=== PATIENT | male | born 1960 | race Caucasian/White ===

== ENCOUNTER → 2017-07-01 06:25 | Outpatient (CLI) | payer OTHER, SELFPAY ==
--- NOTE | 2017-07-01 09:07 | STRESSREP ---
Stress Test Report Exercise myocardial perfusion stress test. 57-year-old male with a history of chest pain. Stress protocol: Resting EKG demonstrates sinus bradycardia with a rate of 54 bpm. Resting blood pressure is 130/90 mmHg. The patient exercised according to the regular Avelino protocol for a total duration of 7 minutes and 20 seconds completing 1 minute and 20 seconds into stage III of the Avelino protocol. The maximum heart rate attained was 171 bpm which was 104% maximum predicted heart rate the maximum workload attained was 9 metabolic equivalents. At rest there were no ST or T-wave changes were noted to suggest ischemia at peak exercise upsloping ST changes only were noted. The resting blood pressure was 130/90 mmHg and the peak blood pressure was 178/98 mmHg rate pressure product was 27,000. The test was terminated due to leg fatigue no chest pain no arrhythmias were noted. Myocardial perfusion protocol. 11.1 mCi of technetium 99m sestamibi was injected at rest. The patient exercised according to regular Avelino protocol for 7 minutes and 20 seconds attaining 9 metastases of [place]ick equivalents at peak exercise 33.3 mCi of technetium 99m sestamibi was injected stress images were obtained stress and rest images were reconstructed and compared in the short axis vertical long and horizontal long axis. Gated images were also obtained pre- Perfusion SPECT analysis: The review of the stress images demonstrate normal uptake of tracer noted in all areas of the myocardium. The resting images similarly demonstrate normal uptake of tracer noted in all areas of the myocardium no reversibility is noted suggest ischemia no previous infarct is noted. Gated SPECT analysis: The gated ejection fraction is 70%. Conclusion: Normal excise myocardial perfusion stress test at a high workload. No clinical angina noted. Good functional capacity. Preserved ejection fraction.
== END ==
PROVIDERS: Family Provider Family Medicine; PCP Family Medicine; Visit Provider Internal Medicine Cardiovascular Disease
DX: I25.10 Atherosclerotic heart disease of native coronary artery without angina pectoris (principal); I10 Essential (primary) hypertension; E78.4 Other hyperlipidemia; R00.2 Palpitations; R07.9 Chest pain, unspecified
CPT/HCPCS: 78452; 93017; A9500; A4216

== ENCOUNTER → 2019-12-12 18:03 | Outpatient (CLI) | payer MEDICARE, SELFPAY | PROVIDERS: PCP Family Medicine; Referring Provider Family Medicine; Visit Provider Family Medicine | DX: R05 Cough (principal); R19.7 Diarrhea, unspecified | CPT/HCPCS: 87635; C9803; U0003 ==

== ENCOUNTER 2021-05-02 11:42 | Emergency (ER) | payer MEDICARE, SELFPAY ==
[2021-05-02 11:43] VITALS: BP 131/102; PULSE 65; RESP 16; TEMP 36.6; O2SAT 97; BMI 36.6
--- NOTE | 2021-05-02 11:53 | EKG12_ITS ---
Test Reason : CHEST PAIN Blood Pressure : / mmHG Vent. Rate : 055 BPM Atrial Rate : 055 BPM P-R Int : 144 ms QRS Dur : 090 ms QT Int : 446 ms P-R-T Axes : 003 014 012 degrees QTc Int : 426 ms Sinus bradycardia Otherwise normal ECG No previous ECGs available Confirmed by WERNER LYNCH, JARRED ([id number]), technical writer and editor MARIAJOSE ROACH ([id number]) on 05/07/2021 10:44:43 AM Referred By: EZRA Confirmed By:JARRED CALDERA MD
--- NOTE | 2021-05-02 11:55 | EDS_ITS ---
HPI History of Present Illness Chief Complaint: Chest Pain Narrative Narrative: Patient with past medical history of hypertension, BMI greater than 35, presents with chest pain. He relates history that at 930 to 10:00 this morning, almost an hour and a half ago if not longer, that he had chest pain on the left side of his chest. It did not radiate. However, he felt clammy and sweaty. He denies any nausea or vomiting. He may have been slightly short of breath. There was no exertional component to his chest discomfort. However, he relates history that he had this episode 3 days ago when his was not home that lasted 20 minutes. It was across his chest and up to the right side of his jaw. He denies any family history of early coronary artery disease. He is also concerned because he had this episode a month or 2 ago, and once again was not evaluated. He denies any swelling of his legs, no other symptoms. PFSH PFSH Allergy/AdvReac Type Severity Reaction Status Date / Time No Known Allergies Allergy Verified 05/02/21 11:45 Social History Smoking Status: Never smoker ROS ROS ED ROS Narrative Constitutional: No fever, no chills. HEENT: No sore throat. No neck pain. No loss of vision. No rhinorrhea. Cardiovascular: Positive chest pain. No palpitations. No pedal edema. Respiratory: No cough, mild shortness of breath. Abdominal: No abdominal pain. No nausea. No vomiting. Genitourinary: No dysuria. No hematuria. Musculoskeletal: No myalgias. No arthralgias. Neurologic: No headaches. No dizziness. No lightheadedness. Skin: No rash. No change in color. Psychiatric: No depression. No anxiety. EXAM Physical Exam Narrative Exam Narrative: Afebrile. Vital signs noted. HEENT: Normocephalic. Atraumatic. PERRL, EOMI. Neck soft and supple. No point tenderness or step off. Cardiovascular: Regular rate and rhythm. No murmurs, rubs, or gallops appreciated. Pulses equal bilaterally Respiratory: No tachypnea. Lungs clear to auscultation bilaterally. Gastrointestinal: Abdomen soft, nontender, with normoactive bowel sounds. No rebound or guarding. Neurological: Awake. Alert. Nonfocal, nonlateralizing. Skin: No rash. Normal color. No pallor. Musculoskeletal: No pedal edema. Full range of motion extremities. Const Vital Signs: 05/02/21 11:43 05/02/21 11:56 05/02/21 13:15 Temperature 97.8 F Temperature Source Temporal Pulse Rate 65 52 L Respiratory Rate 16 16 Blood Pressure 131/102 H 127/89 H Blood Pressure Mean 111 101 Pulse Ox 97 92 Oxygen Delivery Method Room Air Room Air Room Air Heart Score History: Moderately Suspicious ECG: Normal Age: >45 - <65 years Risk Factors: 1 or 2 Risk Factors Troponin: </= Normal Limit Score: 3 MDM MDM MDM Narrative Medical decision making narrative: Chest pain work-up was pursued. His EKG demonstrates sinus bradycardia at 55 bpm without ectopy or acute ST changes. I do feel that he is lower risk on his heart score, and that he could be ruled out by biomarkers. Chest x-ray interpreted by myself reveals no evidence of pneumothorax or infiltrate, no acute process. His CBC shows normal white count of 7.1 with a normal hemoglobin of 15.4 and normal platelet count of 193. Electrolyte panel shows chloride elevated at 108 with a normal creatinine of 1.0. High-sensitivity troponin normal at 5. Delta troponin also normal at 5 for delta troponin of 0. Chest x-ray is read by myself shows no evidence of pneumothorax or infiltrate, no acute process. At this point in time, I feel he can be discharged safely home with follow-up. I did review his chart and he had a stress test back in [address] Pabon. I do feel he has been ruled out by cami delarosa. Regardless, he was told to return with any increasing pain, new or worsening symptoms. Disposition is discharged home in stable condition. Lab Data Labs: Laboratory Results - last 24 hr 05/02/21 05/02/21 05/02/21 12:05 12:05 13:40 WBC 7.1 RBC 5.19 Hgb 15.4 Hct 45.5 MCV 87.7 MCH 29.7 MCHC 33.8 RDW Std Deviation 41.7 RDW Coeff of Barney 13.2 Plt Count 193 MPV 9.0 Immature Gran % (Auto) 1.300 H Neut % (Auto) 58.5 Lymph % (Auto) 28.6 [place] % (Auto) 9.6 Eos % (Auto) 1.4 Baso % (Auto) 0.6 Absolute Neuts (auto) 4.1 Absolute Lymphs (auto) 2.02 Nucleated RBC % 0 Sodium 139 Potassium 3.6 Chloride 108 H Carbon Dioxide 26.0 Anion Gap 5 BUN 14 Creatinine 1.06 Estim Creat Clear Calc 66.04 Est GFR (MDRD) Af Amer 91 Est GFR (MDRD) Non-Af 76 BUN/Creatinine Ratio 13.2 Glucose 98 Calcium 8.6 Troponin I High Sens 5 5 Radiography Diagnostic Testing: Clinical Impression(s) from Imaging Studies Chest X-Ray 05/02/21 12:10 IMPRESSION: Nonacute portable x-ray examination of the chest. Electronically Signed: Jai Harmon MD (Brooks) at 12:25 EDT Reading Location ID and State: [facility] / [place] , Service support , Discharge Plan Triage Chief Complaint: Chest Pain ED Provider: Bridger Martinez Dx/Rx/DC Orders Clinical Impression: Chest pain Instructions: ED Chest Pain, Uncertain Cause Primary Care Provider: Kevin Rossi Referrals: Juan Ramon Pabon MD [STAFF PHYSICIAN] - As soon as possible Kevin Rossi MD [Primary Care Provider] - 3-5 Days if not improving Disposition Disposition: Home, Self Care
[2021-05-02] MEDS: Aspirin 81 MG TAB.CHEW 324 MG PO (12:04)
--- NOTE | 2021-05-02 12:10 | RAD_ITS ---
STUDY: X-RAY CHEST REASON FOR EXAM: Male, 61 years old. INTERMITTENT PAIN IN BOTH SIDE OF CHEST FOR PAST SEVERAL MONTHS. ALSO COMPLAINS OF DYSPNEA, WEAKNESS TECHNIQUE: Single AP portable view of the chest. COMPARISON: None. FINDINGS: EKG leads project over the chest. The lungs are clear and expanded. There is no demonstrated pleural abnormality. Normal size heart. Normal mediastinum and elza. Normal visualized pulmonary arteries. There is atherosclerotic tortuosity of the aortic arch and descending thoracic aorta. Normal visualized thoracic spine. Normal visualized ribs, clavicles, and shoulders. There is no demonstrated abnormality of the visualized soft tissue structures of the upper abdomen. RAD/Chest 1 View (Portable) IMPRESSION: Nonacute portable x-ray examination of the chest. Electronically Signed: Jai Harmon MD (Brooks) at 12:25 EDT ,
[2021-05-02 12:19] LABS: Absolute Lymphocyte Count 2.02 X10^3/uL (0.83-4.51); Absolute Neutrophil Count 4.1 X10^3/uL (2.0-7.7); Basophil# 0.04 X10^3/uL; Basophil% 0.6 % (0-1); Eosinophils% 1.4 % (0-5); Hematocrit 45.5 % (40-54); Hemoglobin 15.4 g/dL (13.0-16.5); Lymphocyte # 2.02 X10^3/ul (0.83-4.51); Lymphocyte % 28.6 % (19-41); Mean Corp Hgb Conc 33.8 g/dL (32-36); Mean Corpuscular Hgb 29.7 pg (27.0-32.0); Mean Corpuscular Volume 87.7 fL (80-94); Monocyte# 0.68 X10^3/uL; Monocyte% 9.6 % (0-10); NRBC Flagged by Analyzer 0 % (0-5); Neutrophil # 4.13 X10^3/uL (2.7-7.7); Neutrophil % 58.5 % (47-70); Platelet Count 193 K/mm3 (150-450); RBC Distribution Width CV 13.2 % (11.6-14.6); RBC Distribution Width SD 41.7 fl (35.1-43.9); Red Blood Count 5.19 M/mm3 (4.6-6.2); White Blood Count 7.1 K/mm3 (4.4-11.0)
[2021-05-02 12:38] LABS: Anion Gap 5 (5-15); BUN 14 mg/dL (7-18); BUN/Creat Ratio 13.2 RATIO (10-20); Calcium,Total 8.6 mg/dL (8.5-10.1); Chloride 108 mmol/L (98-107); Creatinine, Serum 1.06 mg/dL (0.70-1.30); EST Glomerular Filtration Rate 76 mL/min (>60); Est Glom Filt Rate - Afr Amer 91 mL/min (>60); Estimated Creatinine Clearance 66.04 ml/min; Glucose 98 mg/dL (74-106); Potassium 3.6 mmol/L (3.5-5.1); Sodium Level 139 mmol/L (136-145); Troponin-I HS 5 pg/mL (3.0-78.0)
[2021-05-02 13:15] VITALS: BP 127/89; PULSE 52; RESP 16; O2SAT 92
[2021-05-02 14:05] LABS: Troponin-I HS 5 pg/mL (3.0-78.0)
[2021-05-02 14:55] VITALS: PULSE 45
== END 2021-05-02 14:55 | disposition home or self-care (01) ==
PROVIDERS: Emergency Provider Emergency Medicine; PCP Family Medicine; Visit Provider Emergency Medicine
DX: R07.9 Chest pain, unspecified (principal)
CPT/HCPCS: 71045; 80048; 84484; 85025; 93005; 99285; A4216

== ENCOUNTER → 2021-08-06 | Outpatient (CLI) | payer MEDICARE, SELFPAY ==
--- NOTE | 2021-08-06 11:39 | RAD_ITS ---
STUDY: X-RAY - CERVICAL SPINE REASON FOR EXAM: Male, 61 years old. NECK PAIN TECHNIQUE: 5 view(s) of the cervical spine were obtained. COMPARISON: None FINDINGS: Normal anterior atlantoaxial articulation. Normal odontoid process. Normal cervical lordosis. Normal vertebral bodies and endplates. Normal disc space heights. Normal visualized intervertebral neuroforamina. The soft tissue structures are unremarkable. RAD/Cerv Spine 4 or 5 Views IMPRESSION: Normal x-ray examination of the visualized cervical spine. Electronically Signed: Haresh Gibson MD at 8:28 EDT ,
== END | disposition home or self-care (01) ==
LOC: RAD 11:30
PROVIDERS: PCP Family Medicine
DX: M54.2 Cervicalgia (principal); M75.40 Impingement syndrome of unspecified shoulder; S46.811A Strain of other muscles, fascia and tendons at shoulder and upper arm level, right arm, initial encounter; S43.81XA Sprain of other specified parts of right shoulder girdle, initial encounter
CPT/HCPCS: 72050

== ENCOUNTER 2021-10-08 15:28 | Emergency (ER) | payer MEDICARE, SELFPAY ==
[2021-10-08 15:29] VITALS: BP 114/86; PULSE 82; RESP 18; TEMP 36.6; O2SAT 95; BMI 35.5
--- NOTE | 2021-10-08 15:49 | CT_ITS ---
EXAMINATION : Head CT w/out contrast HISTORY : confusion, headaches COMPARISON : None. TECHNIQUE : Multiple contiguous axial images were obtained from the skull base to the vertex without intravenous contrast. A radiation dose optimization technique was used for this scan. FINDINGS : There is no evidence for acute intracranial hemorrhage, mass effect, or midline shift. There is no extra-axial fluid collection. There are periventricular white matter changes consistent with chronic microvascular ischemic disease. There is sulcal widening and ventricular enlargement consistent with cerebral atrophy. There is normal boykin-white differentiation, without CT evidence of acute ischemia or infarct. The skull base and calvarium are unremarkable. The orbits are unremarkable. The paranasal sinuses are clear. The mastoid air cells are well-aerated. The soft tissues are unremarkable. CT/Brain/Head without Contrast IMPRESSION: No acute intracranial abnormality. Chronic involutional and ischemic changes of the brain. Electronically Signed: Mahin Moe MD at 16:15 EDT ,
--- NOTE | 2021-10-08 15:49 | EKG12_ITS ---
Test Reason : CP Blood Pressure : / mmHG Vent. Rate : 068 BPM Atrial Rate : 068 BPM P-R Int : 162 ms QRS Dur : 088 ms QT Int : 392 ms P-R-T Axes : 038 -12 -05 degrees QTc Int : 416 ms Normal sinus rhythm Inferior infarct , age undetermined Abnormal ECG Confirmed by JOSSE LYNCH, GUERRERO ([id number]), medical transcription editor MARIAJOSE ROACH ([id number]) on 10/10/2021 1:23:11 PM Referred By: PL Confirmed By:AGUILA LOAIZA MD
--- NOTE | 2021-10-08 15:51 | EDS_ITS ---
HPI History of Present Illness Chief Complaint: Chest Pain Informant: patient and spouse/S.O. Narrative Narrative: Patient presents with multiple complaints that have been going on for about 6 months to various degrees. Patient has been having episodes of chest pain. He describes it as central lower chest sometimes to the left. It occurs randomly. Its not frequent. Its not clearly exertional. He does get nauseated with sometimes. He does not get dyspnea specifically with this. He was seen for this back in April. He states he did have follow-up. He went to [facility]. They did a nuclear stress test. He did not hear anything back about that. They are trying to bring up those results on my chart. Patient also states that sometimes he gets short of breath. When he gets short of breath he can hear wheezing or whistling in his lungs. He does not have a history of asthma COPD emphysema or use of inhalers. Nothing specifically makes this better or worse. This does not occur specifically with chest pain. Patient is also been having headaches. But he thinks this is from his chronic neck pain. 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 He is on oxycodone along with gabapentin routinely for this. No d osages of change. His headaches start on his neck when he moves it and it hurts. He radiates from the neck up the back of his head. These have been going on for some time. Patient also complains that sometimes he feels confused. He was driving to see his sister in [place]. Although he was driving okay suddenly just did not know where he was. Patient also stopped taking his thyroid medicine about 2 or so months ago. PFSH PFSH Medical History Anxiety Depression GERD (gastroesophageal reflux disease) Hypertension Hypothyroidism Non-smoker Allergy/AdvReac Type Severity Reaction Status Date / Time No Known Allergies Allergy Verified 10/08/21 15:30 Surgical History (Updated 10/08/21 @ 15:37 by Fidel Ledbetter) History of rotator cuff surgery Social History Smoking Status: Never smoker EXAM Physical Exam Const Vital Signs: 10/08/21 15:29 10/08/21 15:33 10/08/21 15:33 Temperature 97.8 F Temperature Source Temporal Pulse Rate 82 Respiratory Rate 18 Respiratory Effort Normal Blood Pressure 114/86 H Blood Pressure Mean 95 Pulse Ox 95 Oxygen Delivery Method Room Air Room Air 10/08/21 15:55 10/08/21 17:34 Temperature Temperature Source Pulse Rate 65 65 Respiratory Rate 16 16 Respiratory Effort Blood Pressure 109/82 H 128/83 H Blood Pressure Mean 91 98 Pulse Ox 95 94 Oxygen Delivery Method Room Air Room Air MDM MDM MDM Narrative Medical decision making narrative: CBC is overall normal. Electrolytes show elevated creatinine and BUN. TSH was normal. Troponin was normal. CT showed no acute intracranial process. Chest x-ray is no acute. We were able to bring up a nuclear stress test from the eighth of this month that was normal with no sign of ischemia. I think his 6 months or more of symptoms with negative troponin and negative nuclear stress test at this point it would be appropriate to get him home. He now states he is under quite a bit of stress. His states he is also been drinking alcohol. There is questions of compliance with medications. I think the cause of his symptoms are probably multifactorial. I think he is appropriate for follow-up. Lab Data Attestation: I reviewed the patient's lab results. Labs: Laboratory Results - last 24 hr 10/08/21 10/08/21 15:38 15:38 WBC 10.2 RBC 5.10 Hgb 15.2 Hct 45.1 MCV 88.4 MCH 29.8 MCHC 33.7 RDW Std Deviation 43.4 RDW Coeff of Barney 13.5 Plt Count 242 MPV 9.3 Immature Gran % (Auto) 0.600 Neut % (Auto) 60.6 Lymph % (Auto) 28.3 [place] % (Auto) 9.6 Eos % (Auto) 0.5 Baso % (Auto) 0.4 Absolute Neuts (auto) 6.2 Absolute Lymphs (auto) 2.89 Nucleated RBC % 0 Sodium 141 Potassium 3.6 Chloride 110 H Carbon Dioxide 24.0 Anion Gap 7 BUN 27 H Creatinine 1.42 H Estim Creat Clear Calc 49.30 Est GFR (MDRD) Af Amer 65 Est GFR (MDRD) Non-Af 54 L BUN/Creatinine Ratio 19.0 Glucose 107 H Calcium 9.1 Troponin I High Sens 5 TSH 1.37 Radiography Diagnostic Testing: Clinical Impression(s) from Imaging Studies Brain CT 10/08/21 15:49 IMPRESSION: No acute intracranial abnormality. Chronic involutional and ischemic changes of the brain. Electronically Signed: Mahin Moe MD at 16:15 EDT , Chest X-Ray 10/08/21 16:06 IMPRESSION: No acute radiographic abnormalities. Electronically Signed: Mahin Moe MD at 16:47 EDT , Discharge Plan Triage Chief Complaint: Chest Pain ED Provider: Koby Nash Dx/Rx/DC Orders Clinical Impression: Chest pain, Dehydration Instructions: ED Chest Pain, Uncertain Cause, ED Dehydration (Adult) Primary Care Provider: Kevin Rossi Referrals: Kevin Rossi MD [Primary Care Provider] - 3-5 Days Disposition Disposition: Home, Self Care
[2021-10-08 15:55] VITALS: BP 109/82; PULSE 65; RESP 16; O2SAT 95
--- NOTE | 2021-10-08 16:06 | RAD_ITS ---
INDICATION: Wheezing EXAMINATION/TECHNIQUE: X-RAY - XR Chest 1 View COMPARISON: None. FINDINGS: The lungs are clear. The cardiomediastinal silhouette is unremarkable. No pleural effusion or pneumothorax. No acute osseous abnormalities. RAD/Chest 1 View (Portable) IMPRESSION: No acute radiographic abnormalities. Electronically Signed: Mahin Moe MD at 16:47 EDT ,
[2021-10-08 16:08] LABS: Absolute Lymphocyte Count 2.89 X10^3/uL (0.83-4.51); Absolute Neutrophil Count 6.2 X10^3/uL (2.0-7.7); Basophil# 0.04 X10^3/uL; Basophil% 0.4 % (0-1); Eosinophil# 0.05 X10^3/uL; Eosinophils% 0.5 % (0-5); Hematocrit 45.1 % (40-54); Hemoglobin 15.2 g/dL (13.0-16.5); Lymphocyte # 2.89 X10^3/ul (0.83-4.51); Lymphocyte % 28.3 % (19-41); Mean Corp Hgb Conc 33.7 g/dL (32-36); Mean Corpuscular Hgb 29.8 pg (27.0-32.0); Mean Corpuscular Volume 88.4 fL (80-94); Mean Platelet Vol. 9.3 fl (6.2-12.0); Monocyte# 0.98 X10^3/uL; Monocyte% 9.6 % (0-10); NRBC Flagged by Analyzer 0 % (0-5); Neutrophil # 6.19 X10^3/uL (2.7-7.7); Neutrophil % 60.6 % (47-70); Platelet Count 242 K/mm3 (150-450); RBC Distribution Width CV 13.5 % (11.6-14.6); RBC Distribution Width SD 43.4 fl (35.1-43.9); White Blood Count 10.2 K/mm3 (4.4-11.0)
[2021-10-08 16:31] LABS: Anion Gap 7 (5-15); BUN 27 mg/dL (7-18); Calcium,Total 9.1 mg/dL (8.5-10.1); Chloride 110 mmol/L (98-107); Creatinine, Serum 1.42 mg/dL (0.70-1.30); EST Glomerular Filtration Rate 54 mL/min (>60); Est Glom Filt Rate - Afr Amer 65 mL/min (>60); Glucose 107 mg/dL (74-106); Potassium 3.6 mmol/L (3.5-5.1); Sodium Level 141 mmol/L (136-145); Thyroid Stim Hormone (TSH) 1.37 uIU/mL (0.358-3.74); Troponin-I HS 5 pg/mL (3.0-78.0)
[2021-10-08 17:34] VITALS: BP 128/83; PULSE 65; RESP 16; O2SAT 94
== END 2021-10-08 18:14 | disposition home or self-care (01) ==
PROVIDERS: Emergency Provider Emergency Medicine; PCP Family Medicine; Visit Provider Emergency Medicine
DX: R07.9 Chest pain, unspecified (principal); E86.0 Dehydration; G89.29 Other chronic pain; M54.2 Cervicalgia
CPT/HCPCS: 70450; 71045; 80048; 84443; 84484; 85025; 87635; 93005; 96360; 99284; U0003; U0005

== ENCOUNTER 2021-10-21 08:45 | Emergency (ER) | payer MEDICARE, SELFPAY ==
[2021-10-21 08:46] VITALS: BP 132/86; PULSE 96; RESP 24; TEMP 36.9; O2SAT 100; BMI 35.8
--- NOTE | 2021-10-21 09:14 | EKG12_ITS ---
Test Reason : CP Blood Pressure : / mmHG Vent. Rate : 093 BPM Atrial Rate : 093 BPM P-R Int : 132 ms QRS Dur : 078 ms QT Int : 326 ms P-R-T Axes : 006 006 009 degrees QTc Int : 405 ms Normal sinus rhythm Inferior infarct , age undetermined Abnormal ECG Confirmed by WERNER LYNCH, JARRED ([id number]), newspaper copy editor MARIAJOSE ROACH ([id number]) on 10/22/2021 9:46:59 AM Referred By: MONIKA Confirmed By:JARRED CALDERA MD
--- NOTE | 2021-10-21 09:14 | RAD_ITS ---
STUDY: X-RAY CHEST REASON FOR EXAM: Male, 61 years old. chest pain TECHNIQUE: Single AP portable view of the chest. COMPARISON: 10/08/2021 FINDINGS: The lungs are clear and expanded. There is no demonstrated pleural abnormality. Normal size heart. Normal mediastinum and elza. Normal visualized pulmonary arteries. Normal visualized aortic arch and descending thoracic aorta. Normal visualized thoracic spine. Normal visualized ribs, clavicles, and shoulders. There is no demonstrated abnormality of the visualized soft tissue structures of the upper abdomen. RAD/Chest 1 View (Portable) IMPRESSION: Normal x-ray examination of the chest. Electronically Signed: Haresh Gibson MD at 9:55 EDT ,
--- NOTE | 2021-10-21 09:15 | EDS_ITS ---
HPI History of Present Illness Chief Complaint: Chest Pain Narrative Narrative: 61-year-old male with history of 4 days of right-sided chest and rib pain. He states that its radiating from his right upper axillary region across his right lower chest and across his abdomen. He also feel some pulling on the left lower ribs as well. He states he has the feeling of shortness of breath. He also states that it hurts when he takes a deep breath. The patient does admit to a lot of exertional work over the last 2 weeks because he has been moving a large pile of trash. He denies any direct trauma. He states he does not have a history of cardiac disease that he knows of. He has had negative cardiac stress test and a negative cardiac catheterization he states this was done in 2018. Patient states he was here in the ER in the on 10/08/2021 and he states that this pain is different. He did not experience this type of pain over the last couple of weeks while he was doing the work and has gradually built up to this level. Patient is in pain management and does take oxycodone as well as morphine on a regular basis and he states this is not helping his pain. He states the pain is worse with twisting and moving. He states it also hurts worse when he tries to sit and stand. He has not had a fever, chills, cough. He has not been diaphoretic, nauseous, lightheaded. PFSH PFSH Medical History Anxiety Depression GERD (gastroesophageal reflux disease) Hypertension Hypothyroidism Non-smoker Home Medications apixaban 5 mg (74 tabs) tablets in a dose pack (Eliquis DVT-PE Treat 30D Start) 5 mg PO BID #74 tabs 10/21/21 [Rx Last Taken Unknown] gabapentin 300 mg capsule 300 mg PO TID 10/21/21 [History Last Taken Unknown] lamotrigine 150 mg tablet 150 mg PO DAILY 10/21/21 [History Last Taken Unknown] losartan 100 mg tablet 100 mg PO DAILY 10/21/21 [History Last Taken Unknown] morphine 15 mg tablet,extended release 15 mg PO DAILY 10/21/21 [History Last [place] en Unknown] omega-3 fatty acids 500 mg PO DAILY 10/21/21 [History Last Taken Unknown] omeprazole 20 mg capsule,delayed release 20 mg PO DAILY 10/21/21 [History Last Taken Unknown] oxycodone 15 mg tablet 15 mg PO TID 10/21/21 [History Last Taken Unknown] quetiapine 150 mg tablet,extended release 24 hr 150 mg PO DAILY 10/21/21 [History Last Taken Unknown] triamterene 37.5 mg-hydrochlorothiazide 25 mg tablet 1 tab PO DAILY 10/21/21 [History Last Taken Unknown] Allergy/AdvReac Type Severity Reaction Status Date / Time acetaminophen AdvReac Upset Verified 10/21/21 08:51 [From Darvocet-N] Stomach propoxyphene AdvReac Upset Verified 10/21/21 08:51 [From Darvocet-N] Stomach Surgical History History of rotator cuff surgery Social History Smoking Status: Never smoker ROS ROS ED Constitutional Constitutional ED: Denies chills or fever(s) Eyes Eyes: Denies none or blurry vision ENT ENT ED: Denies rhinorrhea or sore throat Cardiovascular Cardiovascular: Reports as per HPI Respiratory/Chest Respiratory/Chest: Denies cough Gastrointestinal Gastrointestinal: Denies abdominal pain or constipation Genitourinary Genitourinary ED: Denies dysuria or hematuria Musculoskeletal Musculoskeletal: Reports back pain and other Details: Right rib pain ; Denies arthralgias Integumentary Denies abscess or Abrasions Neurologic Neurologic: Denies headache(s) or paresthesias Psychiatric Psychiatric: Denies anxiety or depression EXAM Physical Exam Const Vital Signs: 10/21/21 08:46 10/21/21 09:00 10/21/21 09:30 Temperature 98.4 F Temperature Source Temporal Pulse Rate 96 Respiratory Rate 24 H Respiratory Effort Normal Non-Labored Blood Pressure 132/86 H Blood Pressure Mean 101 Pulse Ox 100 Oxygen Delivery Method Room Air Room Air 10/21/21 10:37 10/21/21 11:01 Temperature Temperature Source Pulse Rate 96 91 Respiratory Rate 14 20 H Respiratory Effort Blood Pressure 126/86 H 124/98 H Blood Pressure Mean 99 106 Pulse Ox 96 97 Oxygen Delivery Method Room Air Room Air Positive well nourished and obese General Appearance ED: NAD; Negative for pallor Nutritional Appearance: obese HEENT Reports moist mucous membranes normocephalic and atraumatic Eyes PERRL and EOMs intact bilaterally General Eye ED: Negative for pale conjunctiva or scleral icterus Chest Wall Chest Narrative: There is tenderness to palpation over the right posterior ribs, midaxillary line , anterior axillary line on the right. No crepitance is noted. Equal symmetric breath sounds or chest wall rise. Resp normal respiratory effort and clear to auscultation bilaterally Cardio regular rate and regular rhythm GI normal to inspection, nondistended, normoactive bowel sounds Back/Spine no CVA tenderness Neuro oriented x3 and CN's II-XII intact bilaterally Sensorium / Orientation: awake Psych mental status grossly normal Skin no rashes or lesions noted General Skin Exam: Negative for jaundice or pallor Heart Score History: Slightly/Non-Suspicious ECG: Normal Age: >45 - <65 years Risk Factors: No Risk Factors Troponin: </= Normal Limit Score: 1 MDM MDM MDM Narrative Medical decision making narrative: 61-year-old male presenting with chest pain which appears to be reproducible on examination. He states he has a history of a normal stress test in 2018 and has no cardiac issues that he knows of. Patient was medicated with morphine and Zofran. 1 L of IV fluids was given. EKG shows a sinus rhythm with a ventricular rate of 93 bpm without sign of ischemia or dysrhythmia on my interpretation. Chest x-ray on my interpretation shows no acute cardiopulmonary process. Patient states he had pain for 4 days and his troponin is 5 which is unchanged from previous and I do not believe he needs a delta troponin. His CBC shows a slight leukocytosis at 11.8. Hemoglobin and hematocrit within normal limits. Platelets are normal. Creatinine slightly elevated at 1.51 and this was 1.41 at his last visit so there has not been any significant interval change. Patient's D-dimer was elevated at 1.36 and I did obtain a CTA of the chest. This is positive for pulmonary emboli in the right upper and right lower lobe. This is in the distribution of the patient's pain complaint. Although this is reproducible on exam and is consistent with musculoskeletal pain I do believe the patient needs to be treated for PE given the pain in these areas. Patient is started on Eliquis after risk benefits were discussed at length. He is given 10 mg p.o. here in the ED. He is given a starter pack. It is recommended that he follow-up with his PCP for refills of his Eliquis. He is going to follow-up with his pain management physician for worsening pain. He is given return precautions. Impression: 1. Chest pain?noncardiac 2. Pulmonary emboli Lab Data Attestation: I reviewed the patient's lab results. Labs: Laboratory Results - last 24 hr 10/21/21 10/21/21 10/21/21 08:58 08:58 08:58 WBC 11.8 H RBC 4.81 Hgb 14.6 Hct 43.3 MCV 90.0 MCH 30.4 MCHC 33.7 RDW Std Deviation 44.4 H RDW Coeff of Barney 13.8 Plt Count 163 MPV 9.2 Immature Gran % (Auto) 0.600 Neut % (Auto) 68.5 Lymph % (Auto) 16.9 L [place] % (Auto) 13.6 H Eos % (Auto) 0.2 Baso % (Auto) 0.2 Absolute Neuts (auto) 8.1 H Absolute Lymphs (auto) 1.99 Nucleated RBC % 0 Differential Comment SCANNED Diff Path Review May foll D-Dimer Quant (PE/DVT) 1.36 H* Sodium 135 L Potassium 3.7 Chloride 99 Carbon Dioxide 28.0 Anion Gap 8 BUN 22 H Creatinine 1.51 H Estim Creat Clear Calc 46.36 Est GFR (MDRD) Af Amer 61 Est GFR (MDRD) Non-Af 50 L BUN/Creatinine Ratio 14.6 Glucose 113 H Calcium 8.8 Troponin I High Sens 5 Radiography Diagnostic Testing: Clinical Impression(s) from Imaging Studies Chest X-Ray 10/21/21 09:14 IMPRESSION: Normal x-ray examination of the chest. Electronically Signed: Haresh Gibson MD at 9:55 EDT Reading Location ID and State: [id number] / [employer] Tel , Service support , Chest CTA 10/21/21 09:59 IMPRESSION: Positive for subsegmental pulmonary emboli in the right upper lobe and superior segment the right lower lobe. Electronically Signed: Haresh Gibson MD at 11:04 EDT , ADDENDUM: 10/21/21 1120 IMPRESSION: Positive for subsegmental pulmonary emboli in the right upper lobe and superior segment the right lower lobe. N.B. : The above Results were Read Back by Haresh Gibson MD to Zander Chino DO, and understanding confirmed on 10/21/2021 11:13:16 (ET). Electronically Signed: Haresh Gibson MD at 11:04 EDT , Discharge Plan Triage Chief Complaint: Chest Pain ED Provider: Zander Chino Dx/Rx/DC Orders Instructions: Embolism Pulmonary Dc, ED Chest Pain, Noncardiac Prescriptions: New Eliquis DVT-PE Treat 30D Start 5 mg (74 tabs) tablets,dose pack 5 mg PO BID Qty: 74 0RF Rx Instructions: 10 mg p.o. twice daily x1 week then 5 mg p.o. twice daily No Action lamotrigine 150 mg tablet 150 mg PO DAILY oxycodone 15 mg tablet 15 mg PO TID Label Comments: TAKE 1 TABLET BY MOUTH EVERY 8 HOURS NEEDED FOR PAIN for up to 30 days. May fill on or after 10/12/2021 gabapentin 300 mg capsule 300 mg PO TID Label Comments: TAKE 1 CAPSULE BY MOUTH THREE TIMES DAILY FOR 30 DAYS may fill on or after 10/10/2021 omeprazole 20 mg capsule,delayed release(DR/EC) 20 mg PO DAILY Label Comments: TAKE 1 CAPSULE BY MOUTH 30 MINUTES BEFORE BREAKFAST Rx Instructions: BEFORE BREAKFAST morphine 15 mg tablet extended release 15 mg PO DAILY Label Comments: Take 1 tablet by mouth once daily as needed for pain for up to 30 days. for Pain Do not start before October 09, 2021. quetiapine 150 mg tablet extended release 24 hr 150 mg PO DAILY Label Comments: TAKE 1 TABLET BY MOUTH DAILY AT BEDTIME. Rx Instructions: AT BEDTIME losartan 100 mg tablet 100 mg PO DAILY Label Comments: TAKE 1 TABLET BY MOUTH ONCE DAILY triamterene-hydrochlorothiazid 37.5-25 mg tablet 1 tab PO DAILY Label Comments: TAKE 1 TABLET BY MOUTH ONCE DAILY [place] 3 Capsule 500 mg PO DAILY Primary Care Provider: Kevin Rossi Referrals: Kevin Rossi MD [Primary Care Provider] - Disposition Disposition: Home, Self Care
[2021-10-21] MEDS: Ondansetron 4 MG/2 ML Vial IV (09:22)
[2021-10-21] MEDS: Morphine 4 MG/ML Syringe IV (09:22)
[2021-10-21 09:39] LABS: Absolute Lymphocyte Count 1.99 X10^3/uL (0.83-4.51); Absolute Neutrophil Count 8.1 X10^3/uL (2.0-7.7); Basophil# 0.02 X10^3/uL; Basophil% 0.2 % (0-1); Eosinophil# 0.02 X10^3/uL; Eosinophils% 0.2 % (0-5); Hematocrit 43.3 % (40-54); Hemoglobin 14.6 g/dL (13.0-16.5); Lymphocyte # 1.99 X10^3/ul (0.83-4.51); Lymphocyte % 16.9 % (19-41); Mean Corp Hgb Conc 33.7 g/dL (32-36); Mean Corpuscular Hgb 30.4 pg (27.0-32.0); Mean Platelet Vol. 9.2 fl (6.2-12.0); Monocyte% 13.6 % (0-10); NRBC Flagged by Analyzer 0 % (0-5); Neutrophil # 8.07 X10^3/uL (2.7-7.7); Neutrophil % 68.5 % (47-70); POSITIVE DIFFERENTIAL YES; Platelet Count 163 K/mm3 (150-450); RBC Distribution Width CV 13.8 % (11.6-14.6); RBC Distribution Width SD 44.4 fl (35.1-43.9); Red Blood Count 4.81 M/mm3 (4.6-6.2); White Blood Count 11.8 K/mm3 (4.4-11.0)
[2021-10-21 09:40] LABS: Differential Indicated SCAN CRITERIA MET
[2021-10-21 09:55] LABS: D-Dimer Quantitative (DVT/PE) 1.36 FEU/ug/m (0.27-0.49)
[2021-10-21 09:56] LABS: Anion Gap 8 (5-15); BUN 22 mg/dL (7-18); BUN/Creat Ratio 14.6 RATIO (10-20); Calcium,Total 8.8 mg/dL (8.5-10.1); Chloride 99 mmol/L (98-107); Creatinine, Serum 1.51 mg/dL (0.70-1.30); EST Glomerular Filtration Rate 50 mL/min (>60); Est Glom Filt Rate - Afr Amer 61 mL/min (>60); Estimated Creatinine Clearance 46.36 ml/min; Glucose 113 mg/dL (74-106); Potassium 3.7 mmol/L (3.5-5.1); Sodium Level 135 mmol/L (136-145); Troponin-I HS 5 pg/mL (3.0-78.0)
--- NOTE | 2021-10-21 09:56 | NURSING ---
call from lab , d-dimer 1.36, dr. madison aware.
--- NOTE | 2021-10-21 09:59 | CT_ITS ---
We are attempting to reach an attending provider to discuss findings. An addendum with communication details will be sent when the communication is complete. STUDY: CTA CHEST REASON FOR EXAM: Male, 61 years old. chest pain RADIATION DOSAGE (If Supplied By Facility): CTDIvol = ( 12.66 ) mGy, DLP = ( 591.90 ) mGycm TECHNIQUE: The examination was performed with the intravenous administration of IV 100mL Isovue-370. Post-processing of the angiographic images was performed, with multiplanar reformation and 3D reconstruction. Individualized dose optimization techniques were used for this CT. COMPARISON: Chest x-ray earlier today FINDINGS: Normal enhancement of the main pulmonary artery and right and left pulmonary arteries. Normal enhancement of the bilateral peripheral pulmonary arteries. There is filling defects within subcutaneous within subsegmental branches descending right pulmonary artery and in the superior segment of the right lower lobe consistent with pulmonary embolism. Normal thoracic aorta and visualized great vessels. There is no demonstrated aortic dissection. Normal heart and pericardium. There are no calcifications of the coronary arteries. Normal mediastinum. Normal hilar regions. Normal visualized trachea and bronchi. The lungs are well expanded. Some dependent bibasilar atelectasis. Normal pleura. Normal chest wall structures. Normal osseous structures. Normal visualized upper abdomen. CT/CTA Chest W/WO Contrast IMPRESSION: Positive for subsegmental pulmonary emboli in the right upper lobe and superior segment the right lower lobe. Electronically Signed: Haresh Gibson MD at 11:04 EDT ,
[2021-10-21] MEDS: 0.9% Normal Saline 1,000 ML 999 ML IV (10:16)
[2021-10-21 10:29] LABS: Differential Comment SCANNED
[2021-10-21 10:37] VITALS: BP 126/86; PULSE 96; RESP 14; O2SAT 96
[2021-10-21 11:01] VITALS: BP 124/98; PULSE 91; RESP 20; O2SAT 97
[2021-10-21] MEDS: APIXABAN 5 MG TABLET 10 MG PO (11:30)
[2021-10-22 13:47] LABS: Pathologist Review Reviewed
== END 2021-10-21 11:46 | disposition home or self-care (01) ==
PROVIDERS: Emergency Provider Student in an Organized Health Care Education/Training Program; PCP Family Medicine; Visit Provider Student in an Organized Health Care Education/Training Program
DX: I26.99 Other pulmonary embolism without acute cor pulmonale (principal); R07.89 Other chest pain; I10 Essential (primary) hypertension; E66.9 Obesity, unspecified; K21.9 Gastro-esophageal reflux disease without esophagitis; Z79.01 Long term (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 of anticoagulants; Z79.899 Other long term (current) drug therapy
CPT/HCPCS: 71045; 71275; 80048; 84484; 85025; 85379; 93005; 96374; 96375; 99285; J7030; J7050; Q9967; A4216; J2405

== ENCOUNTER 2023-04-25 12:55 | Emergency (ER) | payer MEDICARE, SELFPAY ==
[2023-04-25 12:57] VITALS: BP 121/83; PULSE 66; RESP 16; TEMP 37.2; O2SAT 97; BMI 31.6
--- NOTE | 2023-04-25 13:10 | EKG12_ITS ---
Test Reason : Blood Pressure : / mmHG Vent. Rate : 051 BPM Atrial Rate : 051 BPM P-R Int : 148 ms QRS Dur : 086 ms QT Int : 462 ms P-R-T Axes : 005 -07 003 degrees QTc Int : 425 ms Sinus bradycardia Inferior infarct (cited on or before 08-OCT-2021) Abnormal ECG Confirmed by Nathaniel Bishop ([id number]), mapping editor ANJUM DESAI ([id number]) on 04/28/2023 7:30:42 AM Referred By: Confirmed By:Nathaniel Bishop
--- NOTE | 2023-04-25 13:10 | CT_ITS ---
HISTORY: SOB, H/O PE. TECHNIQUE: CT angiogram of the chest was performed after the intravenous administration of 100 mL Isovue-370. Post-processing of the angiographic images was performed with multiplanar reformation and 3D reconstruction. Individualized dose optimization techniques were used for this CT. 1176 images. COMPARISON: 03/23/2021. FINDINGS: CENTRAL AIRWAYS: Patent. LUNGS: Very mild dependent lower lobe atelectasis. PLEURA: No pneumothorax or significant pleural effusion. HEART/PERICARDIUM: Heart within normal limits in size. No pericardial effusion. PULMONARY ARTERIES: No filling defect. AORTA/VESSELS: No thoracic aortic aneurysm or dissection flap. MEDIASTINUM/JEFFERY: No pathologically enlarged lymph nodes. OSSEOUS STRUCTURES: Mild degenerative change. UPPER ABDOMEN: Unremarkable. CT/CTA Chest W/WO Contrast IMPRESSION: No evidence of pulmonary embolism. Electronically Signed: Sharyn Rabago MD at 14:54 EST ,
--- NOTE | 2023-04-25 13:11 | EX.ED.DYSGE1 ---
HPI History of Present Illness Chief Complaint: Shortness of Breath Informant: patient Onset/Context/Timing Onset: Days (3 to 4 days) Narrative Narrative: Patient presents with shortness of breath and pain in his back, bilateral scapular area for the past 3 or 4 days. He states he will wake up with back pain and will subside over the course of the day. He members having similar pain in the past when he had pulmonary emboli and is concerned for this again. He also reports intermittent blood in his stool which has been ongoing for quite some time. He feels like his abdomen is bloated but is not noticing blood in his stool today. [facility] Medical History (Updated 04/25/23 @ 15:[address] Yahaira Patel MD) Anxiety Depression GERD (gastroesophageal reflux disease) Hypertension Hypothyroidism Non-smoker Pulmonary embolism Home Medications apixaban 5 mg (74 tabs) tablets in a dose pack (Eliquis DVT-PE Treat 30D Start) 5 mg PO BID #74 tabs 10/21/21 [Rx Last Taken Unknown] gabapentin 300 mg capsule 300 mg PO TID 10/21/21 [History Last Taken Unknown] lamotrigine 150 mg tablet 150 mg PO DAILY 10/21/21 [History Last Taken Unknown] losartan 100 mg tablet 100 mg PO DAILY 10/21/21 [History Last Taken Unknown] morphine 15 mg tablet,extended release 15 mg PO DAILY 10/21/21 [History Last Taken Unknown] omega-3 fatty acids 500 mg PO DAILY 10/21/21 [History Last Taken Unknown] omeprazole 20 mg capsule,delayed release 20 mg PO DAILY 10/21/21 [History Last Taken Unknown] oxycodone 15 mg tablet 15 mg PO TID 10/21/21 [History Last Taken Unknown] quetiapine 150 mg tablet,extended release 24 hr 150 mg PO DAILY 10/21/21 [History Last Taken Unknown] triamterene 37.5 mg-hydrochlorothiazide 25 mg tablet 1 tab PO DAILY 10/21/21 [History Last Taken Unknown] Allergy/AdvReac Type Severity Reaction Status Date / Time acetaminophen AdvReac Upset Verified 04/25/23 12:57 [From Darvocet-N] Stomach propoxyphene AdvReac Upset Verified 04/25/23 12:57 [From Darvocet-N] Stomach Surgical History History of rotator cuff surgery Social History Smoking Status: Never smoker ROS ROS ED Constitutional Constitutional ED: Denies chills or fever(s) Eyes Eyes: Denies discharge from eye(s) ENT ENT ED: Denies discharge from eye(s), rhinorrhea or sore throat Cardiovascular Cardiovascular: Denies chest pain or palpitations Respiratory/Chest Respiratory/Chest: Reports dyspnea; Denies cough Gastrointestinal Gastrointestinal: Denies abdominal pain, nausea or vomiting Genitourinary Genitourinary ED: Denies dysuria Musculoskeletal Musculoskeletal: Reports back pain; Denies extremity pain Integumentary Denies Abrasions or rash Neurologic Neurologic: Denies headache(s) or weakness Psychiatric Psychiatric: Denies anxiety or depression Allergic/Immunologic Allergic/Immunologic ED: Denies lip swelling or urticaria EXAM Physical Exam Const Vital Signs: 04/25/23 12:57 04/25/23 13:53 Temperature 98.9 F Temperature Source Temporal Pulse Rate 66 Respiratory Rate 16 Respiratory Effort Short of Breath Respiratory Depth Normal Respiratory Pattern Normal Blood Pressure 121/83 H Blood Pressure Mean 95 Pulse Ox 97 Oxygen Delivery Method Room Air Room Air Positive well nourished and well developed General Appearance ED: well developed HEENT Reports normocephalic and head/scalp atraumatic Eyes PERRL and EOMs intact bilaterally Neck supple Chest Wall inspection of chest normal and palpation of chest normal Resp normal respiratory effort and clear to auscultation bilaterally Cardio regular rate and regular rhythm GI normal to inspection, nondistended, normoactive bowel sounds Palpation: soft Extremity normal to inspection Neuro oriented x3 and no sensory deficits noted Sensorium / Orientation: alert Motor Exam: strength 5/5 throughout Psych mental status grossly normal Skin no rashes or lesions noted MDM MDM MDM Narrative Medical decision making narrative: Patient present cardiac rehabilitation program director. IV line initiated. Labwork obtained to evaluate for leukocytosis, anemia, and electrolyte derangement. EKG obtained to evaluate for cardiac arrhythmia/ischemia. CTA of the chest obtained given his history of pulmonary embolism with similar symptoms. History & Record Review Discussion w/independent historian: Patient and Family Additional record(s) reviewed:: Prior ED visit and Prior labs Lab Data Attestation: I reviewed the patient's lab results. Labs: Laboratory Results - last 24 hr 04/25/23 13:26 WBC 8.6 RBC 5.71 Hgb 16.2 Hct 48.1 MCV 84.2 MCH 28.4 MCHC 33.7 RDW Std Deviation 39.7 RDW Coeff of [place] 13.0 Plt Count 201 MPV 9.3 Immature Gran % (Auto) 0.400 Neut % (Auto) 51.6 Lymph % (Auto) 35.2 [place] % (Auto) 10.9 H Eos % (Auto) 1.3 Baso % (Auto) 0.6 Absolute Neuts (auto) 4.4 Absolute Lymphs (auto) 3.01 Nucleated RBC % 0 Sodium 139 Potassium 3.3 L Chloride 106 Carbon Dioxide 27.0 Anion Gap 6 BUN 18 Creatinine 0.96 Estim Creat Clear Calc 82.18 Est GFR (MDRD) Af Amer 101 Est GFR (MDRD) Non-Af 84 BUN/Creatinine Ratio 18.7 Glucose 106 Calcium 8.5 Troponin I High Sens 4 Radiography Diagnostic Testing: Clinical Impression(s) from Imaging Studies Chest CTA 04/25/23 13:10 IMPRESSION: No evidence of pulmonary embolism. Electronically Signed: Sharyn Rabago MD at 14:54 EST , EKG Initial EKG: Attestation: I personally reviewed and interpreted this EKG as follows: Interpretation: Sinus Bradycardia (Sinus bradycardia 51 bpm. No acute ischemia.) Treatment and Re-Evaluation :: CBC was in a white count 8.6 with a hemoglobin of 16.2. Differential unremarkable. Chemistry studies reveal slightly low potassium at 3.3. This is replaced orally. Troponin is normal at 4. EKG is sinus rhythm with no acute ischemia. CTA of the chest reveals no acute abnormalities, no pulmonary embolism. Patient is reassured with these findings. We discussed eating a balanced diet to help his potassium level. He does raise concern about his bloated abdomen and intermittent blood in stool. I will refer him to GI for further workup. Discharge Plan Triage Chief Complaint: Shortness of Breath ED Provider: Yahaira Patel Dx/Rx/DC Orders Clinical Impression: Back pain, Dyspnea, Abdominal bloating Instructions: ED Dyspnea, ED Abdominal Pain Unkn Cause Male... Prescriptions: No Action lamotrigine 150 mg tablet 150 mg PO DAILY oxycodone 15 mg tablet 15 mg PO TID Patient Comments: TAKE 1 TABLET BY MOUTH EVERY 8 HOURS NEEDED FOR PAIN for up to 30 days. May fill on or after 10/12/2021 gabapentin 300 mg capsule 300 mg PO TID Patient Comments: TAKE 1 CAPSULE BY MOUTH THREE TIMES DAILY FOR 30 DAYS may fill on or after 10/10/2021 omeprazole 20 mg capsule,delayed release(DR/EC) 20 mg PO DAILY Patient Comments: TAKE 1 CAPSULE BY MOUTH 30 MINUTES BEFORE BREAKFAST Rx Instructions: BEFORE BREAKFAST morphine 15 mg tablet extended release 15 mg PO DAILY Patient Comments: Take 1 tablet by mouth once daily as needed for pain for up to 30 days. for Pain Do not start before October 09, 2021. quetiapine 150 mg tablet extended release 24 hr 150 mg PO DAILY Patient Comments: TAKE 1 TABLET BY MOUTH DAILY AT BEDTIME. Rx Instructions: AT BEDTIME losartan 100 mg tablet 100 mg PO DAILY Patient Comments: TAKE 1 TABLET BY MOUTH ONCE DAILY triamterene-hydrochlorothiazid 37.5-25 mg tablet 1 tab PO DAILY Patient Comments: TAKE 1 TABLET BY MOUTH ONCE DAILY [place] 3 Capsule 500 mg PO DAILY Eliquis DVT-PE Treat 30D Start 5 mg (74 tabs) tablets,dose pack 5 mg PO BID Qty: 74 0RF Rx Instructions: 10 mg p.o. twice daily x1 week then 5 mg p.o. twice daily Primary Care Provider: Kevin Rossi Referrals: Sergio Botello DO [Med Staff - Active Staff] - As soon as possible Kevin Rossi MD [Primary Care Provider] - 1 Week
[2023-04-25 13:44] LABS: Absolute Lymphocyte Count 3.01 X10^3/uL (0.83-4.51); Absolute Neutrophil Count 4.4 X10^3/uL (2.0-7.7); Basophil# 0.05 X10^3/uL; Basophil% 0.6 % (0-1); Eosinophil# 0.11 X10^3/uL; Eosinophils% 1.3 % (0-5); Hematocrit 48.1 % (40-54); Hemoglobin 16.2 g/dL (13.0-16.5); Lymphocyte # 3.01 X10^3/ul (0.83-4.51); Lymphocyte % 35.2 % (19-41); Mean Corp Hgb Conc 33.7 g/dL (32-36); Mean Corpuscular Hgb 28.4 pg (27.0-32.0); Mean Corpuscular Volume 84.2 fL (80-94); Mean Platelet Vol. 9.3 fl (6.2-12.0); Monocyte# 0.93 X10^3/uL; Monocyte% 10.9 % (0-10); NRBC Flagged by Analyzer 0 % (0-5); Neutrophil # 4.42 X10^3/uL (2.7-7.7); Neutrophil % 51.6 % (47-70); Platelet Count 201 K/mm3 (150-450); RBC Distribution Width SD 39.7 fl (35.1-43.9); Red Blood Count 5.71 M/mm3 (4.6-6.2); White Blood Count 8.6 K/mm3 (4.4-11.0)
[2023-04-25] MEDS: 0.9% Normal Saline (1000mL) 1,000 ML 150 ML IV (13:50)
[2023-04-25 13:53] VITALS: O2SAT 96
--- OUTSIDE RECORDS SUMMARY | 2023-04-25 13:57 | XMS RPT_ITS | CCD ---
Author Name Unknown Address [address] [place] [address] Organization [facility] Care Team Providers Care Insole Rasper Name Role Phone SWATHI HADDAD Unavailable Unavailable SWATHI HADDAD Unavailable Unavailable Kevin Cary Unavailable SWATHI HADDAD Unavailable Unavailable SWATHI HADDAD Unavailable Unavailable Kevin Cary Unavailable Kevin Cary MD Primary Care Provider Kevin Cary MD Primary Care Provider Kevin Cary MD Primary Care Provider Kevin Cary MD Primary Care Provider Chago Hernández Attending Halina Cary, Dr. Kevin Sim Primary Care Unavail able Priscilla Booker Attending Unavailable Kevin Cary Unavailable MARY PARKER Referring Unavailable Kevin Cary MD Primary Care Provider KENNA FERRARI Attending Janisva ilable KEVIN CARY Primary Care Unavailable JERZY ARRIETA Attending Unavailable KEVIN CARY Primary Care Unavailable KEVIN CARY Primary Care Unavailable KEVIN CARY Referring Unavailable LEWIS, REMINGTON Y Referring Unavailable KEVIN CARY Primary Care Unavailable KEVIN CARY Primary Care Unavailable LEWIS, REMINGTON Y Referring Unavailable KEVIN CARY Primary Care Unavailable LEWIS, REMINGTON Y Referring Unavailable JENNIFER STONER Attending Unavailable KEVIN CARY Primary Care Unavailable KEVIN CARY Primary Care Unavailable KEVIN CARY Attending Unavailable KEVIN CARY Referring Unavailable RAEANN, KEVIN Ross Primary Care Unavailable RAEANN, KEVIN Ross Referring Unavailable RAEANN, KEVIN Ross Primary Care Unavailable LAUREN STEEN Referring Unavailable RAEANN, KEVIN Ross Primary Care Unavailable RAEANN, KEVIN Ross Primary Care Unavailable RAEANN, KEVIN Ross Referring Unavailable JENNIFER STONER Attending Unavailable RAEANN, KEVIN Ross Primary Care Unavailable RAEANN, KEVIN Ross Primary Care Unavailable RAEANN, KEVIN Ross Referring Unavailable RAEANN, KEVIN Ross Primary Care Unavailable RAEANN, KEVIN Ross Primary Care Unavailable RAEANN, KEVIN Ross Attending Unavailable RAEANN, KEVIN Ross Referring Unavailable RAEANN, KEVIN Ross Primary Care Unavailable RAEANN, KEVIN Ross Referring Unavailable RAEANN, KEVIN Ross Primary Care Unavailable RAEANN, KEVIN Ross Referring Unavailable RAEANN, KEVIN Ross Primary Care Unavailable RAEANN, KEVIN Ross Referring Unavailable GIA VENTURA Attending Unavailable RAEANN, KEVIN Ross Primary Care Unavailable RAEANN, KEVIN Ross Attending Unavailable RAEANN, KEVIN Ross Primary Care Unavailable RAEANN, KEVIN Ross Primary Care Unavailable RAEANN, KEVIN Ross Referring Unavailable GLEN BROWN Attending Unavailable GIA VENTURA Referring Unavailable RAEANN, KEVIN Ross Primary Care Unavailable RAEANN, KEVIN Ross Primary Care Unavailable RAEANN, KEVIN Ross Referring Unavailable RAEANN, KEVIN Ross Primary Care Unavailable RAEANN, KEVIN Ross Referring Unavailable CHAD ETIENNE Attending Unavailable RAEANN, KEVIN Ross Referring Unavailable RAEANN, KEVIN Ross Primary Care Unavailable REMINGTON SAUCEDO Attending Unavailable RAEANN, KEVIN Ross Referring Unavailable RAEANN, KEVIN Ross Primary Care Unavailable CHAD ETIENNE Attending Unavailable LAUREN STEEN Attending Unavailable RAEANN, KEVIN Ross Primary Care Unavailable RAEANN, KEVIN Ross Referring Unavailable RAEANN, KEVIN Ross Primary Care Unavailable YONATHAN BARAJAS Attending Unavailable JENNIFER STONER Attending Unavailable RAEANN, KEVIN Ross Primary Care Unavailable RAEANN, KEVIN Ross Attending Unavailable RAEANN, KEVIN Ross Primary Care Unavailable RAEANN, KEVIN Ross Primary Care Unavailable RAEANN, KEVIN Ross Referring Unavailable RAEANN, KEVIN Ross Referring Unavailable RAEANN, KEVIN Ross Primary Care Unavailable REMINGTON SAUCEDO Attending Unavailable RAEANN, KEVIN Ross Referring Unavailable RAEANN, KEVIN Ross Primary Care Unavailable ALLIE CEBALLOS Attending Unavailable RAEANN, KEVIN Ross Primary Care Unavailable ADELNIE KAMINSKI Attending Unavailable RAEANN, KEVIN Ross Primary Care Unavailable ANNA FOLEY Attending Unavailable RAEANN, KEVIN Ross Primary Care Unavailable ANNA FOLEY Attending Unavailable ANNA FOLEY Referring Unavailable RAEANN, KEVIN J Primary Care Unavailable ADELINE KAMINSKI Attending Unavailable KEVIN CARY Primary Care Unavailable ADELINE KAMINSKI Attending Unavailable KEVIN CARY Primary Care Unavailable KEVIN CARY Primary Care Unavailable Allergies Allergy Classification Reported Allergen(s) Allergy Type Date of Onset Reaction(s) Facility (20 sources) Angiotensin Converting Enzyme (Bakari) Inhibitors; Translations: [BAKARI INHIBITORS] Propensity to adverse reactions (disorder) 7 Cough [facility] Repository (20 sources) PROPOXYPHENE N-ACETAMINOPHEN; Translations: [PROPOXYPHENE N-ACETAMINOPHEN] Propensity to adverse reactions (disorder) 7 GI Upset [facility] Repository Medications Current Medications Medication Drug Class(es) Dates Sig (Normalized) Sig (Original) [id number] 200 actuat albuterol 0.09 mg/actuat metered dose inhaler (5 sources) beta2-Adrenergic Agonist Start: 10-26-2021 take 2 puff(s) by inhalation every four hours as needed for wheezing albuterol sulfate HFA (PROVENTIL;VENTOL IN;PROAIR) 108 (90 Base) MCG/ACT inhaler Inhale 2 puffs into the lungs every 4 hours as needed for Wheezing 18 g 3 10/26/2021 Active Completed/Discontinued Medications Medication Drug Class(es) Dates Sig (Normalized) Sig (Original) acetaminophen 325 mg / oxyCODONE hydrochloride 10 mg oral tablet (4 sources) Opioid Agonist End: 12-03-2022 oxyCODONE-acetamin ophen (PERCOCET 10) 10-325 mg tablet apixaban 5 mg oral tablet (20 sources) Factor Xa Inhibitor Start: 11-04-2021 End: 05-03-2022 take 1 tablet by mouth twice daily apixaban (ELIQUIS) 5 mg tab(s) Indications: Other acute pulmonary embolism without acute cor pulmonale (HCC) Take 1 tablet by mouth twice daily. 60 tablet 5 11/04/2021 04/16/2022 Discontinued Problems Active Problems Problem Classification Problem Date Documented Da te Episodic/Chronic Anxiety disorders (7 sources) Generalized anxiety disorder; Translations: [Generalized anxiety disorder] Onset: 2 Chronic Cardiac and circulatory congenital anomalies (20 sources) Congenital anomaly of cerebrovascular system; Translations: [Other malformations of cerebral vessels] Onset: 3 Chronic Coagulation and hemorrhagic disorders (2 sources) Other thrombophilia; Translations: [Other thrombophilia] Onset: 2 Chronic Conditions associated with dizziness or vertigo (1 source) Lightheadedness; Translations: [Dizziness and giddiness] Episodic Coronary atherosclerosis and other heart disease (20 sources) Angina pectoris; Translations: [Other forms of angina pectoris] Onset: 0 Chronic Disorders of lipid metabolism (20 sources) Other hyperlipidemia; Translations: [Hyperlipidemia] Onset: 0 05-07-2009 Chronic Esophageal disorders (6 sources) Gastroesophageal reflux disease without esophagitis; Translations: [Gastro-esophageal reflux disease without esophagitis] Onset: 2 Chronic Essential hypertension (20 sources) Essential hypertension; Translations: [Essential (primary) hypertension] Onset: 0 01-06-2020 Chronic Headache; including migraine (2 sources) Headache; Translations: [Headache, unspecified headache type] Episodic Headache; including migraine (1 source) Headache; including migraine; Translations: [Headache, unspecified headache type] Onset: 3 Mood disorders (20 sources) Recurrent major depression in partial remission; Translations: [Major depressive disorder, recurrent, in partial remission] Onset: 7 04-24-2016 Chronic Mood disorders (3 sources) Mood disorders; Translations: [Depression, unspecified] Onset: 2 Nonspecific chest pain (4 sources) Chest pain; Translations: [Chest pain, unspecified] Onset: 2 Episodic Osteoarthritis (20 sources) Bilateral shoulder osteoarthritis; Translations: [Primary osteoarthritis, right shoulder] Onset: 2 Chronic Other aftercare (4 sources) shelter (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 of opiate analgesic; Translations: [buttermaker (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 of opiate analgesic] Onset: 2 Episodic Other aftercare (3 sources) shelter (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 of anticoagulants; Translations: [buttermaker (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 of anticoagulants] Onset: 2 Episodic Other aftercare (3 sources) Taking high risk medication; Translations: [Other assisted (current) drug therapy] Episodic Other aftercare (6 sources) Long-term current use of opiate analgesic drug; Translations: [shelter (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 of opiate analgesic] Onset: 7 02-11-2023 Episodic Other and unspecified benign neoplasm (1 source) History of polyp of colon; Translations: [Personal history of colonic polyps] Episodic Other circulatory disease (20 sources) Disorder of aorta; Translations: [Disorder of arteries and arterioles, unspecified] Onset: 2 06-07-2021 Chronic Other circulatory disease (1 source) Disorder of thoracic aorta; Translations: [Other specified disorders of arteries and arterioles] Chronic Other circulatory disease (1 source) Disorder of arteries and arterioles, unspecified; Translations: [Aorta disorder (HCC)] Onset: 3 Chronic Other connective tissue disease (7 sources) Myofascial pain syndrome; Translations: [Myalgia, other site] Onset: 3 11-10-2022 Episodic Other connective tissue disease (1 source) Myalgia, other site; Translations: [Myofascial pain syndrome] Onset: 3 Episodic Other gastrointestinal disorders (1 source) Drug-induced constipation; Translations: [Drug induced constipation] Episodic Other hereditary and degenerative nervous system conditions (20 sources) Mild cognitive impairment, so stated; Translations: [Mild cognitive impairment, so stated] Onset: 3 Chronic Other hereditary and degenerative nervous system conditions (2 sources) Impaired cognition; Translations: [Mild cognitive impairment, so stated] Chronic Other inflammatory condition of skin (1 source) Pruritus ani; Translations: [Pruritus ani] Episodic Other liver diseases (1 source) Lesion of liver; Translations: [Liver disease, unspecified] Chronic Other liver diseases (1 source) Liver disease, unspecified; Translations: [Liver lesion] Onset: 2 Chronic Other liver diseases (5 sources) Elevated liver enzymes level; Translations: [Abnormal levels of other serum enzymes] Episodic Other lower respiratory disease (1 source) Acute interstitial pneumonitis; Translations: [Acute interstitial pneumonitis] Onset: 2 Chronic Other lower respiratory disease (2 sources) Hypoxemia; Translations: [Hypoxemia] Onset: 2 Episodic Other lower respiratory disease (3 sources) Dyspnea; Translations: [Shortness of breath] Episodic Other nervous system disorders (20 sources) Chronic pain syndrome; Translations: [Chronic pain syndrome] Onset: 2 02-11-2021 Chronic Other nervous system disorders (3 sources) Chronic pain syndrome; Translations: [Chronic pain syndrome] Onset: 1 Chronic Other nervous system disorders (6 sources) Chronic pain; Translations: [Other chronic pain] Onset: 2 02-11-2023 Chronic Other nervous system disorders (1 source) Other chronic pain; Translations: [Other chronic pain] Onset: 3 Chronic Other non-traumatic joint disorders (3 sources) Pain in left shoulder; Translations: [Pain in left shoulder] Onset: 2 Episodic Other non-traumatic joint disorders (3 sources) Pain in right shoulder; Translations: [Pain in right shoulder] Onset: 2 Episodic Other nutritional; endocrine; and metabolic disorders (20 sources) Obese class II; Translations: [Obesity, unspecified] Onset: 2 Chronic Other nutritional; endocrine; and metabolic disorders (2 sources) Obesity, unspecified; Translations: [Obesity, unspecified] Onset: 2 Chronic Other nutritional; endocrine; and metabolic disorders (2 sources) Body mass index (BMI) 36.0-36.9, adult; Translations: [Body mass index [BMI] 36.0-36.9, adult] Onset: 2 Chronic Other nutritional; endocrine; and metabolic disorders (1 source) Hypocalcemia; Translations: [Hypocalcemia] Chronic Other nutritional; endocrine; and metabolic disorders (18 sources) Obese class I; Translations: [Obesity, unspecified] Onset: 3 06-30-2022 Chronic Other nutritional; endocrine; and metabolic disorders (1 source) Hypocalcemia; Translations: [Hypocalcemia] Onset: 2 Chronic Other upper respiratory disease (2 sources) Acute bronchospasm; Translations: [Acute bronchospasm] Onset: 2 Episodic Pleurisy; pneumothorax; pulmonary collapse (1 source) Pleurisy; Translations: [Pleurisy] Onset: 2 Episodic Pneumonia (except that caused by tuberculosis or sexually transmitted disease) (1 source) Pneumonia, unspecified organism; Translations: [Pneumonia, unspecified organism] Onset: 2 Episodic Pneumonia (except that caused by tuberculosis or sexually transmitted disease) (2 sources) Pneumonia (except that caused by tuberculosis or sexually transmitted disease); Translations: [Pneumonia due to coronavirus disease 2018] Onset: 2 Residual codes; unclassified (1 source) Insomnia, unspecified; Translations: [Insomnia, unspecified] Onset: 2 Episodic Residual codes; unclassified (3 sources) Amnesia; Translations: [Other amnesia] Episodic Residual codes; unclassified (1 source) Other amnesia; Translations: [Memory loss] Onset: 3 Episodic Spondylosis; intervertebral disc disorders; other back problems (20 sources) Degeneration of cervical intervertebral disc; Translations: [Other cervical disc degeneration, unspecified cervical region] Onset: 8 04-29-2017 Chronic Thyroid disorders (20 sources) Acquired hypothyroidism; Translations: [Hypothyroidism, unspecified] Onset: 2 Chronic Unclassified (1 source) Unknown / UNK(Unknown) Onset: 0 Unclassified (3 sources) Multiple subsegmental pulmonary emboli without acute cor pulmonale; Translations: [Mult subsegmental pulmon emboli without acute cor pulmonale] Onset: 2 Unclassified (1 source) Unvaccinated for COVID-19; Translations: [Unvaccinated for COVID-19] Onset: 2 Unclassified (1 source) Acute cough; Translations: [Acute cough] Onset: 2 Viral infection (4 sources) COVID-19; Translations: [COVID-19] Onset: 2 Past or Other Problems Problem Classification Problem Date Documented Da te Episodic/Chronic Abdominal pain (2 sources) Epigastric pain; Translations: [Epigastric pain] Onset: 01-21-2022 Episodic Fluid and electrolyte disorders (12 sources) Dehydration; Translations: [Dehydration] Onset: 11-10-2022 11-10-2022 Episodic Gastrointestinal hemorrhage (6 sources) Rectal hemorrhage; Translations: [Hemorrhage of anus and rectum] Onset: 03-03-2022 Episodic Hemorrhoids (2 sources) Internal hemorrhoids; Translations: [Other hemorrhoids] Onset: 11-29-2022 Episodic Nausea and vomiting (2 sources) Nausea; Translations: [Nausea] Onset: 01-21-2022 Episodic Open wounds of extremities (1 source) Laceration without foreign body of right index finger without damage to nail, initial encounter; Translations: [Laceration of right index finger without foreign body without damage to nail, initial encounter] Onset: 05-28-2021 Episodic Other aftercare (20 sources) Drug therapy finding; Translations: [Other rat exterminator (current) drug therapy] Onset: 12-20-2021 Episodic Other aftercare (9 sources) Patient encounter status; Translations: [shelter (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 of opiate analgesic] Onset: 12-16-2016 11-10-2022 Episodic Other aftercare (1 source) Other assisted (current) drug therapy; Translations: [High risk medication use] Onset: 11-10-2022 Episodic Other bone disease and musculoskeletal deformities (14 sources) Chondromalacia; Translations: [Chondromalacia, unspecified site] Onset: 01-16-2020 11-10-2022 Episodic Other connective tissue disease (20 sources) Bilateral bursitis of shoulders; Translations: [Bursitis of right shoulder] Onset: 01-04-2020 01-04-2020 Episodic Other connective tissue disease (20 sources) Non-traumatic partial tear of left rotator cuff; Translations: [Incomplete rotator cuff tear or rupture of left shoulder, not specified as traumatic] Onset: 04-16-2020 04-16-2020 Episodic Other connective tissue disease (20 sources) Rotator cuff impingement syndrome; Translations: [Impingement syndrome of unspecified shoulder] Onset: 08-05-2021 Episodic Other connective tissue disease (20 sources) Disorder of rotator cuff; Translations: [Unspecified rotator cuff tear or rupture of unspecified shoulder, not specified as traumatic] Onset: 09-09-2021 Episodic Other connective tissue disease (14 sources) Supraspinatus tear; Translations: [Unspecified rotator cuff tear or rupture of unspecified shoulder, not specified as traumatic] Onset: 01-16-2020 11-10-2022 Episodic Other connective tissue disease (1 source) Impingement syndrome of unspecified shoulder; Translations: [Rotator cuff impingement syndrome, unspecified laterality] Onset: 08-21-2021 Episodic Other gastrointestinal disorders (20 sources) Therapeutic opioid induced constipation; Translations: [Drug induced constipation] Onset: 11-06-2021 Episodic Other gastrointestinal disorders (1 source) Drug induced constipation; Translations: [Drug induced constipation] Onset: 06-09-2022 Episodic Other liver diseases (1 source) Abnormal levels of other serum enzymes; Translations: [Elevated liver enzymes] Onset: 03-03-2022 Episodic Other lower respiratory disease (1 source) Shortness of breath; Translations: [SOB (shortness of breath)] Onset: 01-13-2022 Episodic Pulmonary heart disease (20 sources) Acute pulmonary embolism; Translations: [Other pulmonary embolism without acute cor pulmonale] Onset: 10-22-2021 Episodic Spondylosis; intervertebral disc disorders; other back problems (20 sources) Neck pain; Translations: [Cervicalgia] Onset: 08-05-2021 Episodic Sprains and strains (15 sources) Strain of neck muscle; Translations: [Strain of muscle, fascia and tendon at neck level, initial encounter] Onset: 01-16-2020 Episodic Unclassified (1 source) Unvaccinated for COVID-19; Translations: [Unvaccinated for COVID-19] Onset: 10-22-2021 Viral infection (16 sources) Disease caused by 2019-nCoV; Translations: [COVID-19] Onset: 10-22-2021 Episodic Results Test Name Value Interpretation Reference Range Facil ity Vital Signs Date Time Vital Sign Value Performing Clinician Kike anderson 12-03-2022 13:24-0400 Body weight 85.73 kg Lauren Steen APRN.CNP Work Phone: [facility] 12-03-2022 13:24-0400 Diastolic blood pressure 82 mm[Hg] Lauren Steen APRN.CNP Work Phone: [facility] 12-03-2022 13:24-0400 Heart rate 45 /min Lauren Steen APRN.CNP Work Phone: [facility] 12-03-2022 13:24-0400 Respiratory rate 16 /min Lauren Steen APRN.CNP Work Phone: [facility] 12-03-2022 13:24-0400 SaO2% (BldA) [Mass fraction] 98 % Lauren Steen APRN.CNP Work Phone: [facility] 12-03-2022 13:24-0400 Systolic blood pressure 124 mm[Hg] Lauren Steen PLUG SORTER Work Phone: [facility] 11-10-2022 07:10-0400 Body weight 84.19 kg Allie Ceballos DO Work Phone: [facility] 11-10-2022 07:10-0400 Diastolic blood pressure 77 mm[Hg] Gageraven Ceballos DO Work Phone: [facility] 11-10-2022 07:10-0400 Heart rate 51 /min Allie Ceballos DO Work Phone: [facility] 11-10-2022 07:10-0400 SaO2% (BldA) [Mass fraction] 98 % Allie Ceballos DO Work Phone: [facility] 11-10-2022 07:10-0400 Systolic blood pressure 129 mm[Hg] Allie Tucker DO Work Phone: [facility] 08-12-2022 08:56-0400 Body height 167.6 cm Chad Etienne MD Work Phone: [facility] 08-12-2022 08:56-0400 Body temperature 97.3 [degF] Chad Etienne MD Work Phone: [facility] 08-12-2022 08:56-0400 Body weight 88.91 kg Chad Etienne MD Work Phone: [facility] 08-12-2022 08:56-0400 Diastolic blood pressure 64 mm[Hg] Chad Etienne MD Work Phone: [facility] 08-12-2022 08:56-0400 Heart rate 57 /min Chad Etienne MD Work Phone: [facility] 08-12-2022 08:56-0400 SaO2% (BldA) [Mass fraction] 98 % Chad Etienne MD Work Phone: [facility] 08-12-2022 08:56-0400 Systolic blood pressure 110 mm[Hg] Chad Etienne MD Work Phone: [facility] 06-30-2022 15:11-0400 Body weight 91.63 kg Yonathan Barajas MD Work Phone: [facility] 06-30-2022 15:11-0400 Diastolic blood pressure 80 mm[Hg] Yonathan Barajas MD Work Phone: [facility] 06-30-2022 15:11-0400 Heart rate 52 /min Yonathan Barajas MD Work Phone: [facility] 06-30-2022 15:11-0400 SaO2% (BldA) [Mass fraction] 99 % Yonathan Barajas MD Work Phone: [facility] 06-30-2022 15:11-0400 Systolic blood pressure 110 mm[Hg] Yonathan Barajas MD Work Phone: [facility] 06-02-2022 13:38-0400 Body height 165.1 cm Gia Kalka PA-C Work Phone: [facility] 06-02-2022 13:38-0400 Body weight 96.16 kg Gia Kalka PA-C Work Phone: [facility] 06-02-2022 13:38-0400 Diastolic blood pressure 84 mm[Hg] Gia Kalka PA-C Work Phone: [facility] 06-02-2022 13:38-0400 Heart rate 100 /min Gia Kalka PA-C Work Phone: [facility] 06-02-2022 13:38-0400 Systolic blood pressure 120 mm[Hg] Gia Kalka PA-C Work Phone: [facility] 04-28-2022 14:30-0400 Diastolic blood pressure 85 mm[Hg] Anna Acworth TIE TAMPER.TWISTING FRAME CHANGER Work Phone: [facility] 04-28-2022 14:30-0400 Heart rate 92 /min Anna Alaina TIE TAMPER.TWISTING FRAME CHANGER Work Phone: [facility] 04-28-2022 14:30-0400 SaO2% (BldA) [Mass fraction] 99 % Anna Foley TIE TAMPER.TWISTING FRAME CHANGER Work Phone: [facility] 04-28-2022 14:30-0400 Systolic blood pressure 115 mm[Hg] Anna Foley TIE TAMPER.TWISTING FRAME CHANGER Work Phone: [facility] 04-16-2022 15:36-0500 Body height 165.1 cm Kevin Cary MD Work Phone: [facility] 04-16-2022 15:36-0500 Body weight 96.16 kg Kevin Cary MD Work Phone: [facility] 04-16-2022 15:36-0500 Diastolic blood pressure 70 mm[Hg] Kevin Cary MD Work Phone: [facility] 04-16-2022 15:36-0500 Heart rate 66 /min Kevin Cary MD Work Phone: [facility] 04-16-2022 15:36-0500 SaO2% (BldA) [Mass fraction] 96 % Kevin Cary MD Work Phone: [facility] 04-16-2022 15:36-0500 Systolic blood pressure 110 mm[Hg] Kevin Cary MD Work Phone: [facility] 04-15-2022 14:15-0500 Body height 165.1 cm Remington Saucedo MD Work Phone: [facility] 04-15-2022 14:15-0500 Body weight 96.62 kg Remington Saucedo MD Work Phone: [facility] 04-15-2022 14:15-0500 Diastolic blood pressure 83 mm[Hg] Remington Saucedo MD Work Phone: [facility] 04-15-2022 14:15-0500 Heart rate 58 /min Remington Saucedo MD Work Phone: [facility] 04-15-2022 14:15-0500 Respiratory rate 16 /min Remington Saucedo MD Work Phone: [facility] 04-15-2022 14:15-0500 SaO2% (BldA) [Mass fraction] 97 % Remington Saucedo MD Work Phone: [facility] 04-15-2022 14:15-0500 Systolic blood pressure 121 mm[Hg] Remington Saucedo MD Work Phone: [facility] 04-02-2022 14:36-0500 Body weight 96.62 kg Jennifer Rajguru TIE TAMPER.PLUG SORTER Work Phone: [facility] 04-02-2022 14:36-0500 Diastolic blood pressure 78 mm[Hg] Jennifer Rajguru TIE TAMPER.PLUG SORTER Work Phone: [facility] 04-02-2022 14:36-0500 Heart rate 80 /min Jennifer Rajguru TIE TAMPER.PLUG SORTER Work Phone: [facility] 04-02-2022 14:36-0500 Systolic blood pressure 118 mm[Hg] Jennifer Rajguru TIE TAMPER.PLUG SORTER Work Phone: [facility] 03-03-2022 15:06-0500 Body height 165.1 cm Kevin Cary MD Work Phone: [facility] 03-03-2022 15:06-0500 Body weight 97.98 kg Kevin Cary MD Work Phone: [facility] 03-03-2022 15:06-0500 Diastolic blood pressure 82 mm[Hg] Kevin Cary MD Work Phone: [facility] 03-03-2022 15:06-0500 Heart rate 70 /min Kevin Cary MD Work Phone: [facility] 03-03-2022 15:06-0500 SaO2% (BldA) [Mass fraction] 98 % Kevin Cary MD Work Phone: [facility] 03-03-2022 15:06-0500 Systolic blood pressure 116 mm[Hg] Kevin Cary MD Work Phone: [facility] 12-14-2022 15:10-0500 Body weight 101.61 kg Jennifer Rajguru TIE TAMPER.PLUG SORTER Work Phone: [facility] 01-29-2022 15:10-0500 Diastolic blood pressure 82 mm[Hg] Jennifer Rajguru TIE TAMPER.PLUG SORTER Work Phone: [facility] 01-29-2022 15:10-0500 Heart rate 78 /min Jennifer Rajguru TIE TAMPER.PLUG SORTER Work Phone: [facility] 01-29-2022 15:10-0500 Systolic blood pressure 158 mm[Hg] Jennifer Rajguru TIE TAMPER.PLUG SORTER Work Phone: [facility] 01-28-2022 10:23-0500 Diastolic blood pressure 82 mm[Hg] Anna Alaina TIE TAMPER.TWISTING FRAME CHANGER Work Phone: [facility] 01-28-2022 10:23-0500 Heart rate 67 /min [facility] TIE TAMPER.TWISTING FRAME CHANGER Work Phone: [facility] 01-28-2022 10:23-0500 SaO2% (BldA) [Mass fraction] 96 % [facility] TIE TAMPER.TWISTING FRAME CHANGER Work Phone: [facility] 01-28-2022 10:23-0500 Systolic blood pressure 126 mm[Hg] Anna [facility] TIE TAMPER.TWISTING FRAME CHANGER Work Phone: [facility] 01-14-2022 14:03-0500 Body height 165.1 cm Chad Etienne MD Work Phone: [facility] 01-14-2022 14:03-0500 Body temperature 97 [degF] Chad Etienne MD Work Phone: [facility] 01-14-2022 14:03-0500 Body weight 99.7 kg Chad Etienne MD Work Phone: [facility] 01-14-2022 14:03-0500 Diastolic blood pressure 78 mm[Hg] Chad Etienne MD Work Phone: [facility] 01-14-2022 14:03-0500 Heart rate 73 /min Chad Etienne MD Work Phone: [facility] 01-14-2022 14:03-0500 SaO2% (BldA) [Mass fraction] 96 % Chad Etienne MD Work Phone: [facility] 01-14-2022 14:03-0500 Systolic blood pressure 120 mm[Hg] Chad Etienne MD Work Phone: [facility] 01-13-2022 10:42-0500 Body height 165.6 cm Respiratory Wstr Work Phone: [facility] 01-13-2022 10:42-0500 Body weight 100.25 kg Respiratory Wstr Work Phone: [facility] 01-13-2022 10:42-0500 Heart rate 67 /min Respiratory Wstr Work Phone: [facility] 01-13-2022 10:42-0500 Respiratory rate 12 /min Respiratory Wstr Work Phone: [facility] 01-13-2022 10:42-0500 SaO2% (BldA) [Mass fraction] 98 % Respiratory Wstr Work Phone: [facility] 11-04-2021 14:07-0400 Body height 165.1 cm Kevin Cary MD Work Phone: [facility] 11-04-2021 14:07-0400 Body weight 100.34 kg Kevin Cary MD Work Phone: [facility] 11-04-2021 14:07-0400 Diastolic blood pressure 90 mm[Hg] Kevin Cary MD Work Phone: [facility] 11-04-2021 14:07-0400 Heart rate 69 /min Kevin Cary MD Work Phone: [facility] 11-04-2021 14:07-0400 SaO2% (BldA) [Mass fraction] 97 % Kevin Cary MD Work Phone: [facility] 11-04-2021 14:07-0400 Systolic blood pressure 130 mm[Hg] Kevin Cary MD Work Phone: [facility] 10-26-2021 08:50-0400 Respiratory rate 20 /min Chad Light MD Work Phone: [facility] 10-26-2021 08:43-0400 Body temperature 97 [degF] Chad Light MD Work Phone: [facility] 10-26-2021 08:43-0400 Diastolic blood pressure 87 mm[Hg] Chad Light MD Work Phone: [facility] 10-26-2021 08:43-0400 Heart rate 88 /min Chad Light MD Work Phone: [facility] 10-26-2021 08:43-0400 SaO2% (BldA) [Mass fraction] 95 % Chad Light MD Work Phone: [facility] 10-26-2021 08:43-0400 Systolic blood pressure 132 mm[Hg] Chad Light MD Work Phone: [facility] 10-25-2021 12:42-0400 Body height 165.1 cm Chad Light MD Work Phone: [facility] 10-22-2021 20:45-0400 Body mass index (BMI) [Ratio] 36.61 kg/m2 Chad Light MD Work Phone: [facility] 10-22-2021 20:45-0400 Body weight 99.79 kg Chad Light MD Work Phone: [facility] 10-16-2021 14:18-0400 Body weight 101.15 kg Kevin Cary MD Work Phone: [facility] 10-16-2021 14:18-0400 Diastolic blood pressure 88 mm[Hg] Kevin Cary MD Work Phone: [facility] 10-16-2021 14:18-0400 Heart rate 60 /min Kevin Cary MD Work Phone: [facility] 10-16-2021 14:18-0400 Systolic blood pressure 132 mm[Hg] Kevin Cary MD Work Phone: [facility] 08-22-2021 10:26-0400 Body weight 100.7 kg Jennifer Rajguru TIE TAMPER.PLUG SORTER Work Phone: [facility] 08-22-2021 10:26-0400 Diastolic blood pressure 80 mm[Hg] Jennifer Rajguru TIE TAMPER.PLUG SORTER Work Phone: [facility] 08-22-2021 10:26-0400 Heart rate 78 /min Jennifer Rajlitoru TIE TAMPER.PLUG SORTER Work Phone: [facility] 08-22-2021 10:26-0400 Systolic blood pressure 138 mm[Hg] Jennifer Rajguru TIE TAMPER.PLUG SORTER Work Phone: [facility] 07-24-2021 10:48-0400 Body temperature 97.3 [degF] Theresa Diana TIE TAMPER.PLUG SORTER Work Phone: [facility] 07-24-2021 10:48-0400 Body weight 103.06 kg Theresa Diana TIE TAMPER.PLUG SORTER Work Phone: [facility] 07-24-2021 10:48-0400 Diastolic blood pressure 92 mm[Hg] Theresa Diana TIE TAMPER.PLUG SORTER Work Phone: [facility] 07-24-2021 10:48-0400 Heart rate 65 /min Theresa Diana TIE TAMPER.PLUG SORTER Work Phone: [facility] 07-24-2021 10:48-0400 Respiratory rate 20 /min Theresa Diana TIE TAMPER.PLUG SORTER Work Phone: [facility] 07-24-2021 10:48-0400 SaO2% (BldA) [Mass fraction] 98 % Theresa Diana TIE TAMPER.PLUG SORTER Work Phone: [facility] 07-24-2021 10:48-0400 Systolic blood pressure 134 mm[Hg] Theresa Diana TIE TAMPER.PLUG SORTER Work Phone: [facility] 06-19-2021 14:20-0400 Body weight 103.42 kg Jennifer Fredrickru TIE TAMPER.PLUG SORTER Work Phone: [facility] 06-19-2021 14:20-0400 Diastolic blood pressure 82 mm[Hg] Jennifer Stoner TIE TAMPER.PLUG SORTER Work Phone: [facility] 06-19-2021 14:20-0400 Heart rate 72 /min Jennifer Stoner TIE TAMPER.PLUG SORTER Work Phone: [facility] 06-19-2021 14:20-0400 Systolic blood pressure 136 mm[Hg] Jennifer Stoner TIE TAMPER.PLUG SORTER Work Phone: [facility] Encounters Encounter Date Encounter Type Care Provider Facility Start: 04-01-2023 Telephone encounter Adeline Alvarez rco TIE TAMPER.PLUG SORTER Work Phone: Pain Management Procedures Date Procedure Procedure Detail Performing Clinician Start: 12-03-2022 Lipid 1996 panel - Serum or Plasma Lauren Steen TIE TAMPER.PLUG SORTER Work Phone: Start: 06-09-2022 Colonoscopy Yonathan Barajas MD Work Phone: Start: 03-28-2022 Mri brain brain stem w/o contrast material Kevin Cary MD Work Phone: Start: 01-16-2022 Us abdominal real time w/image limited Kevin Cary MD Work Phone: Start: 01-13-2022 Brncdilat rspse spmtry pre&post-brncdilat admn Kevin Cary MD Work Phone: Start: 10-26-2021 BASIC METABOLIC PANEL W/ REFLEX TO MG FOR LOW K Priscilla Booker MD Work Phone: Start: 10-26-2021 Blood count complete auto&auto difrntl wbc Priscilla Booker MD Work Phone: Start: 10-25-2021 Blood count complete auto&auto difrntl wbc Priscilla Booker MD Work Phone: Start: 10-24-2021 C-reactive protein Hanny Wick MD Work Phone: Start: 09-07-2022 Basic metabolic panel calcium total Chad Light MD Work Phone: Start: 10-23-2021 Hepatic function panel Chad Light MD Work Phone: Start: 10-23-2021 Blood count complete auto&auto difrntl wbc hCad Light MD Work Phone: Start: 10-22-2021 Assay of troponin quantitative Chad Light MD Work Phone: Start: 10-22-2021 Ecg routine ecg w/least 12 lds w/i&r Chad Light MD Work Phone: Start: 10-22-2021 25 hydroxy includes fractions if performed Chad Light MD Work Phone: Start: 10-22-2021 C-reactive protein Chad Light MD Work Phone: Start: 09-23-2021 Myocardial spect multiple studies Lauren Steen TIE TAMPER.PLUG SORTER Work Phone: Start: 05-29-2021 Us abdominal aorta real time screen study aaa Lauren Steen TIE TAMPER.PLUG SORTER Work Phone: Start: 12-17-2020 Lipid 1996 panel - Serum or Plasma Anna Foley TIE TAMPER.TWISTING FRAME CHANGER Work Phone: Start: 06-27-2020 Colonoscopy Adeline Padilla TIE TAMPER.PLUG SORTER Work Phone: Start: 04-16-2020 History of repair of musculotendinous cuff of shoulder S/P left rotator cuff repair Adeline Padilla TIE TAMPER.PLUG SORTER Work Phone: Plan of Treatment Date Care Activity Detail Author Start: 05-29-2031 DTaP/Tdap/Td vaccine (3 - Td or Tdap) DTaP/Tdap/Td vaccine (3 - Td or Tdap) [facility] Start: 05-29-[address] [facility] Start: 12-04-2027 Lipid 1996 panel - Serum or Plasma Lipid Screening [facility] Start: 12-04-2027 Lipid panel Lipid Screening [facility] Start: 12-17-2025 Lipid 1996 panel - Serum or Plasma Lipid Screening [facility] Start: 12-17-2025 L[address] L[address]ID SCREEN [facility] Start: 12-03-2025 Diabetes Screening Diabetes Screening [facility] Start: 06-09-[address] [facility] Start: 06-09-2025 COLORECTAL CANCER SCREENING COLORECTAL CANCER SCREENING [facility] Start: 06-09-2025 Screening for malignant neoplasm of colon [facility] Start: 05-28-2025 PROSTATE CANCER SCREENING DISCUSSION PROSTATE CANCER SCREENING DISCUSSION [facility] Start: 05-28-2025 Prostate specific antigen measurement Prostate Cancer Screening Discussion [facility] Start: 01-06-2025 DIABETES SCREEN DIABETES SCREEN [facility] Start: 01-06-2025 Diabetes Screening Diabetes Screening [facility] Start: 01-04-2025 DIABETES SCREEN DIABETES SCREEN [facility] Start: 10-22-2024 DIABETES SCREEN DIABETES SCREEN [facility] Start: 06-06-2024 DIABETES SCREEN DIABETES SCREEN [facility] Start: 05-27-2024 DIABETES SCREEN DIABETES SCREEN [facility] Start: 12-18-2023 DIABETES SCREEN DIABETES SCREEN [facility] Start: 12-04-2023 Annual PCP Team Chronic Disease Visit Annual PCP Team Chronic Disease Visit [facility] Start: 11-11-2023 BP Controlled (<130/80) BP Controlled (<130/80) [facility] Start: 08-13-2023 BP CONTROLLED (<130/80) BP CONTROLLED (<130/80) [facility] Start: 06-28-[address] [facility] Start: 06-28-2023 COLORECTAL CANCER SCREENING COLORECTAL CANCER SCREENING [facility] Start: 06-04-2023 ANNUAL PCP TEAM CHRONIC DISEASE VISIT ANNUAL PCP TEAM CHRONIC DISEASE VISIT [facility] Start: 04-17-2023 ANNUAL PCP TEAM CHRONIC DISEASE VISIT ANNUAL PCP TEAM CHRONIC DISEASE VISIT [facility] Start: 04-17-2023 BP CONTROLLED (<130/80) BP CONTROLLED (<130/80) [facility] Start: 04-02-2023 BP CONTROLLED (<130/80) BP CONTROLLED (<130/80) [facility] Start: 03-03-2023 ANNUAL PCP TEAM CHRONIC DISEASE VISIT ANNUAL PCP TEAM CHRONIC DISEASE VISIT [facility] Start: 01-14-2023 BP CONTROLLED (<130/80) BP CONTROLLED (<130/80) [facility] Start: 01-04-2023 ANNUAL PCP TEAM CHRONIC DISEASE VISIT ANNUAL PCP TEAM CHRONIC DISEASE VISIT [facility] Start: 11-10-2022 End: 01-10-2023 TOXASSURE FLEX 23, URINE TOXASSURE FLEX 23, URINE Lab Routine High risk medication use Cervicalgia Other cervical disc degeneration, unspecified cervical region Chronic pain syndrome Expected: 11/10/2022, Expires: 01/10/2023 [facility] Work Phone: Immunizations Immunization Date Immunization Notes Care Provider Alec sharpe 05-28-2021 tetanus toxoid, redu che diphtheria toxoid, and acellular pertussis vaccine, adsorbed Lauren Haagen TIE TAMPER.PLUG SORTER Work Phone: [facility] 02-18-2019 influenza, injectabl e, quadrivalent, contains preservative Adeline de Moises TIE TAMPER.PLUG SORTER Work Phone: [facility] 02-18-2019 influenza virus vaccine, unspecified formulation Anna Foley TIE TAMPER.TWISTING FRAME CHANGER Work Phone: [facility] 11-30-2017 influenza, injectabl e, quadrivalent, contains preservative Adeline de Moises TIE TAMPER.PLUG SORTER Work Phone: [facility] Work Phone: 11-27-2016 influenza, injectabl e, quadrivalent, contains preservative Adeline de Moises TIE TAMPER.PLUG SORTER Work Phone: [facility] 12-25-2014 influenza, injectabl e, quadrivalent, contains preservative Adeline de Moises TIE TAMPER.PLUG SORTER Work Phone: [facility] 12-25-2014 influenza, seasonal, injectable Adeline de Moises TIE TAMPER.PLUG SORTER Work Phone: [facility] 12-31-2012 influenza virus vaccine, unspecified formulation Adeline de Moises TIE TAMPER.PLUG SORTER Work Phone: [facility] 04-24-2010 tetanus toxoid, redu che diphtheria toxoid, and acellular pertussis vaccine, adsorbed Adeline de Moises TIE TAMPER.PLUG SORTER Work Phone: [facility] Work Phone: Payers Date Payer Category Payer Medicare HU[employer]NA MEDICARE [employer] GOLD PLUS [id number] 2021-Present [phone] [address] [address] [place] [address] O [id number] 2021 Medicare [id number] 2021 Medicare [id number] 2015 Unknown [facility] [id number] 2015-Present [phone] [address] [place] [address] [id number] 2015 Unknown [id number] 2015 Unknown [id number] 1960 Unknown [id number] 1960 Unknown [id number] Private Health Insurance [id number] Private Health Insurance Social History Date Type Detail Facility Start: 06-25-2011 End: 10-16-2021 Tobacco smoking status NHIS Never smoked tobacco [facility] Work Phone: Start: 06-25-2011 End: 10-16-2021 Tobacco use and exposure Smokeless tobacco non-user [facility] Work Phone: Start: 04-05-2021 End: 03-03-2023 Alcohol intake Current drinker of alcohol (finding) [facility] Start: 04-05-2021 End: 06-30-[address] [facility] Start: 11-10-2019 History SDOH Alcohol Frequency 5 [facility] Start: 11-10-2019 End: 06-03-2022 History SDOH Alcohol Std Drinks 2 [facility] Start: 11-10-2019 End: 06-03-2022 History SDOH Alcohol Binge 3 [facility] Start: 10-13-2016 History SDOH Alcohol Comment [address] [facility] Start: 1960 Sex Assigned At Not on file [facility] Start: 04-22-2021 End: 01-14-2022 Exposure to SARS-CoV-2 (event) Not sure [facility] Work Phone: Start: 07-26-2021 End: 10-08-2021 Exposure to SARS-CoV-2 (event) Unable to assess [facility] Work Phone: Start: 08-12-2021 End: 08-22-2021 Exposure to SARS-CoV-2 (event) Yes [facility] Work Phone: Start: 1960 Sex Assigned At Male [facility] Start: 10-22-2021 History SDOH Alcohol Frequency 4 [facility] Start: 10-22-2021 End: 06-03-2022 History SDOH Social Connections Phone 98 [facility] Start: 10-22-2021 End: 06-03-2022 History SDOH Housing Places Lived 1 [facility] Start: 06-03-2022 End: 06-30-2022 Social connection and isolation panel [facility] In a typical week, h ow many times do you talk on the telephone with family, friends, or neighbors? Patient refused [facility] Do you belong to any clubs or organizations such as methodist groups, unions, fraternal or athletic groups, or school groups? No [facility] Are you now , , , , never or living with a partner? [facility] (I/We) worried kiran er (my/our) food would run out before (I/we) got money to buy more. DK or Refused [facility] Start: 09-09-2021 Gender identity Identifies as male gender (finding) [facility] Start: 07-25-2022 Sexual orientation Heterosexual (finding) [facility] How often to you hav e a drink containing alcohol? 2-[address] [facility] How many standard dr inks containing alcohol do you have on a typical day? [address] [facility] How often do you hav e 6 or more drinks on 1 occasion? Less than monthly [facility] How hard is it for y ou to pay for the very basics like food, housing, medical care, and heating Hard [facility] (I/We) worried wheth er (my/our) food would run out before (I/we) got money to buy more. Sometimes true [facility] Clinical Notes 01-06-2020 to 04-01-2023 Telephone Encounter - Georgette Breaux MA - 04/01/2023 7:21 AM Adeline Lopez APRN.JADA - 04/01/2023 7:15 AM ESTPatient InstructionsPatient InstructionsPatient InstructionsPatient Instructions Note Date & Type Note Facility 04-01-2023 Note HNO ID: [id number] Author: ADELINE KAMINSKI APRN.JADA Service: ? Author Type: Nurse Practitioner Type: Progress Notes Filed: 04/01/2023 07:30 Note Text: This video visit was performed via [employer] Video Visit. Patient consented to receive health care services via virtual visit for this encounter Provider Location: Non-[facility] Facility Patient Location: Patient Home or Place of Residence I have communicated my name and active licensure. The patient's identity and physical location were verified at the time of this visit. Either the patient or their legal provider service representative has been informed of the risks and benefits of -- and alternatives to -- treatment through a remote evaluation and consents to proceed with the evaluation remotely. Chief Complaint: Pain History of Present Illness: Gerald Staley is a 62 year old year old male being seen at [facility] for a evaluation and/or management of his chronic pain. The patient was last seen virtually on 03/03/2023. He states that since the last visit symptoms have been stable. His medical history has not changed and he denies any hospital stays or ER visits. Pain level: 08/25 Location: neck, pain in both shoulders - greater on right Character: constant ache Numbness/tingling: in B/L hands. Denies dropping objects with hands. He can lift <50 lbs. Reports pain worse with using left shoulder Reports pain better with rest and medications Denies falls. Denies stumbling. He gets 4 hours of uninterrupted sleep at nights and wakes up feeling unrested in the mornings. Patient denies any bowel or bladder dysfunction. The patient is currently prescribed Morphine, oxycodone and methocarbamol our office. The last doses or morphine and oxycodone were taken yesterday. The medications are partially effective. PDMP website checked and validated. OARRS report reviewed and is consistent with the patients medical history and medication intake. Last Opioid agreement effective date: 03/13/2023 Last UDS: Reviewed - No inconsistencies noted. 03/20/2023 3:53 PM EST UDS CONSISTENT 11/10/22 UDS Consistent Summary Report Date Value Ref Range Status 03/16/2023 FINAL Final Comment: Ethanol Biomarkers, MS, Ur RFX Opiate Class, MS, Ur RFX Oxycodone Class, MS, Ur RFX ToxAssure Flex 23, Ur Test Result Flag Units Drug Present Ethyl Glucuronide 3450 ng/mg creat Ethyl Sulfate 715 ng/mg creat EtG and EtS are metabolites of ethyl alcohol; EtG may be a fermentation product of glucose, but EtS is not known to be formed by fermentation. Incidental exposure to alcohol may result in detectable levels of EtG and/or EtS. EtG/EtS results should be interpreted in the context of all available clinical and behavioral information. Morphine 3222 ng/mg creat Normorphine 146 ng/mg creat Potential sources of large amounts of morphine in the absence of codeine include administration of morphine or use of heroin. Normorphine is an expected metabolite of morphine. Oxycodone 1389 ng/mg creat Oxymorphone 821 ng/mg creat Noroxycodone 2992 ng/mg creat Noroxymorphone 846 ng/mg creat Sources of oxycodone are scheduled prescription medications. Oxymorphone, noroxycodone, and noroxymorphone are expected metabolites of oxycodone. Oxymorphone is also available as a scheduled prescription medication. Test Result Flag Units Ref Range Creatinine 114 mg/dL >=20 Declared Medications: Medication list was not provided. For clinical consultation, please call . Chronic Pain Functional Assessment Tools Pain Disability Index: Pain Disability Index 02/10/2023 03/31/2023 Family/Home Responsibilities: This category includes chores or duties performed around the house (e.g. yard work), errands or favors for other family members (e.g. driving the children to school) 8 7 Recreation: This category includes hobbies, sports, and other similar leisure time activities 8 7 Social Activity: This category refers to activities which involve participation with friends and acquaintances, other than family members. It includes parties, theater, concerts, dinning out, and other social functions 6 8 Occupation: This category refers to activities that are a part of or directly related to ones' job. This includes non-paying jobs as well, such as that of a housewife or volunteer worker 8 7 Sexual Behavior: This category refers to the frequency and (more content not included)... [facility] 04-01-2023 Miscellaneous Notes Items addressed in this encounter: [employer] Encounter Able to close encounter. Georgette Breaux MA April 01, 2023 7:21 AM 7:21 AM documented in this encounter [facility] 04-01-2023 History of Present illness Narrative This video visit was performed via [employer] Video Visit. Patient consented to receive health care services via virtual visit for this encounter Provider Location: Non-[facility] Facility Patient Location: Patient Home or Place of Residence I have communicated my name and active licensure. The patient's identity and physical location were verified at the time of this visit. Either the patient or their legal provider service representative has been informed of the risks and benefits of -- and alternatives to -- treatment through a remote evaluation and consents to proceed with the evaluation remotely. Chief Complaint: Pain History of Present Illness: Gerald Staley is a 62 year old year old male being seen at [facility] for a evaluation and/or management of his chronic pain. The patient was last seen virtually on 03/03/2023. He states that since the last visit symptoms have been stable. His medical history has not changed and he denies any hospital stays or ER visits. Pain level: 7/10 Location: neck, pain in both shoulders - greater on right Character: constant ache Numbness/tingling: in B/L hands. Denies dropping objects with hands. He can lift <50 lbs. Reports pain worse with using left shoulder Reports pain better with rest and medications Denies falls. Denies stumbling. He gets 4 hours of uninterrupted sleep at nights and wakes up feeling unrested in the mornings. Patient denies any bowel or bladder dysfunction. The patient is currently prescribed Morphine, oxycodone and methocarbamol our office. The last doses or morphine and oxycodone were taken yesterday. The medications are partially effective. PDMP website checked and validated. OARRS report reviewed and is consistent with the patients medical history and medication intake. Last Opioid agreement effective date: 03/13/2023 Last UDS: Reviewed - No inconsistencies noted. 03/20/2023 3:53 PM EST UDS CONSISTENT 11/10/22 UDS Consistent Summary Report Date Value Ref Range Status 03/16/2023 FINAL Final Comment: Ethanol Biomarkers, MS, Ur RFX Opiate Class, MS, Ur RFX Oxycodone Class, MS, Ur RFX ToxAssure Flex 23, Ur Test Result Flag Units Drug Present Ethyl Glucuronide 3450 ng/mg creat Ethyl Sulfate 715 ng/mg creat EtG and EtS are metabolites of ethyl alcohol; EtG may be a fermentation product of glucose, but EtS is not known to be formed by fermentation. Incidental exposure to alcohol may result in detectable levels of EtG and/or EtS. EtG/EtS results should be interpreted in the context of all available clinical and behavioral information. Morphine 3222 ng/mg creat Normorphine 146 ng/mg creat Potential sources of large amounts of morphine in the absence of codeine include administration of morphine or use of heroin. Normorphine is an expected metabolite of morphine. Oxycodone 1389 ng/mg creat Oxymorphone 821 ng/mg creat Noroxycodone 2992 ng/mg creat Noroxymorphone 846 ng/mg creat Sources of oxycodone are scheduled prescription medications. Oxymorphone, noroxycodone, and noroxymorphone are expected metabolites of oxycodone. Oxymorphone is also available as a scheduled prescription medication. Test Result Flag Units Ref Range Creatinine 114 mg/dL >=20 Declared Medications: Medication list was not provided. For clinical consultation, please call . Chronic Pain Functional Assessment Tools Pain Disability Index: Pain Disability Index 02/10/2023 03/31/2023 Family/Home Responsibilities: This category includes chores or duties performed around the house (e.g. yard work), errands or favors for other family members (e.g. driving the children to school) 8 7 Recreation: This category includes hobbies, sports, and other similar leisure time activities 8 7 Social Activity: This category refers to activities which involve participation with friends and acquaintances, other than family members. It includes parties, theater, concerts, dinning out, and other social functions 6 8 Occupation: This category refers to activities that are a part of or directly related to ones' job. This includes non-paying jobs as well, such as that of a housewife or volunteer worker 8 7 Sexual Behavior: This category refers to the frequency and quality of one's sex life 9 8 Self Care: This category includes activities which involve personal maintenance and independent daily living (e.g. taking a shower, driving, getting dress, etc) 5 3 Life Support Activity: This category refers to basic-life supporting behaviors such as eating, sleeping, and breathing 5 2 PDI Score 49 42 Pain Enjoyment of Life and General Activity Scale (0-10): PEG: A Three-Item Scale Assessing Pain Intensity and Interference What number best describes your pain on average in the past week?: 8 (03/25/2023 11:21 AM) What number best describes how, during the past week, pain has interfered with your enjoyment of life?: 10 - Completely interferes (03/25/2023 11:21 AM) What number best describes how, during the past week, pain has interfered with your general activity?: 8 (03/25/2023 11:21 AM) REVIEW OF SYSTEMS: GENERAL: No weight loss or fevers RESPIRATORY: Negative for cough CARDIOVASCULAR: Negative for chest pain GI: No nausea, vomiting, or diarrhea. MUSCULOSKELETAL: joint pain or swelling, back pain, and muscle pain PAST MEDICAL HISTORY Diagnosis Date Abnormal EKG 04/23/2017 inf [place] age undetermined Adenomatous colon polyp Anxiety Chicken pox Colon polyps Depression ED (erectile dysfunction) Headache HTN (hypertension) Hypogonadism male 04/25/2010 Pulmonary embolism (HCC) Rectal bleed Shingles Shoulder pain pain management. PAST SURGICAL HISTORY Procedure Laterality Date COLONOSCOPY 06/09/2022 Tubular Adenoma COLONOSCOPY FLX DX W/COLLJ SPEC WHEN PFRMD age 40 Colonoscopy COLONOSCOPY FLX DX W/COLLJ SPEC WHEN PFRMD 06/04/2010 Colonoscopy COLONOSCOPY FLX DX W/COLLJ SPEC WHEN PFRMD 05/25/2018 Multiple Fragments of Tubular Adenoma, Diverticulosis COLONOSCOPY GEN ANES 06/27/2020 Two 4 to 7 mm polyps (adenomatous and hyperplastic ) COLSC FLX W/RMVL OF TUMOR POLYP LESION SNARE TQ 05/30/2016 adenomatous polyp - small - 5 year follow up ESOPHAGOGASTRODUODENOSCOPY TRANSORAL DIAGNOSTIC 05/25/2018 Duodenitis, Gastritis FOOT SURGERY HX Right ~ 2014 OPEN REPAIR OF ROTATOR CUFF ACUTE Right 10/2016 Rotator cuff repair - Dr. Santamaria RECONSTRUCTION ROTATOR CUFF AVULSION CHRONIC Left 03/21/2010 Dr. Stalin Clark RPR UMBILICAL HRNA 5 YRS/> REDUCIBLE 06/11/2016 simple SKIN GRAFT HX Right 1986 eyelid TONSILLECTOMY HX Childhood FAMILY HISTORY Problem Relation Age of Onset Diabetes Mother Hypertension Mother Arthritis Mother Breast Cancer Mother Dementia Mother Cancer Father throat Asthma No Family History Colon Cancer No Family History Social History Tobacco Use Smoking status: Never Smokeless tobacco: Never Vaping Use Vaping Use: Never used Substance Use Topics Alcohol use: Yes Alcohol/week: 6.0 standard drinks of alcohol Types: 6 Cans of Beer (12oz) per week Comment: 12 pack a week Drug use: Not Currently Comment: no longer using. Allergies: Bakari Inhibitors Cough Darvocet A500 [Prop* GI Upset Current Outpatient Medications Medication Sig oxyCODONE (ROXICODONE) 15 mg immediate release tablet Take 1 tablet by mouth every 8 hours as needed for pain for up to 30 days. Do not start before March 04, 2023. morphine SR (MS CONTIN) 15 mg 12 hr tablet Take 1 tablet by mouth once daily as needed for pain for up to 30 days. for Pain Do not start before March 04, 2023. methocarbamol (ROBAXIN-750) 750 mg tablet Take 1 tablet by mouth three times a day as needed. losartan (COZAAR) 100 mg tablet Take 1 tablet by mouth once daily. triamterene-hydroCHLOROthiazide (MAXZIDE-25MG) 37.5-25 mg per tablet Take 1 tablet by mouth once daily. diclofenac (VOLTAREN) 1 % topical gel Apply 4 g to affected area four times daily as needed (for pain). As Directed. naloxone 4 mg/actuation nasal spray (NARCAN) No current facility-administered medications for this visit. Facility-Administered Medications Ordered in Other Visits Medication Dose Route Frequency lidocaine (PF) 10 mg/mL (1 %) 1-2 mg injection (XYLOCAINE) 0.1-0.2 mL INTRADERMAL PRN lactated ringers iv infusion 30 mL/hr INTRAVENOUS CONTINUOUS PHYSICAL EXAMINATION: VIDEO EXAM: (performed via video enabled technology) GENERAL: alert and appropriate, in no distress and well-hydrated, well nourished HEAD: normocephalic, no abnormality or lesion noted RESPIRATORY: breathing non-labored NEUROLOGIC: no obvious deficit ASSESSMENT: Patient is stable. Chronic pain is persistent. Medications are helping Gerald Staley to have an improved quality of life. Patient compliance with Opioid Contract: patient is compliant Encounter Diagnosis ICD-10-CM 1. Other chronic pain G89.29 2. shelter (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 of opiate analgesic Z79.891 3. Other cervical disc degeneration, unspecified cervical region M50.30 4. Osteoarthritis of both shoulders, unspecified osteoarthritis type M19.011 M19.012 5. Myofascial pain syndrome M79.18 PLAN: The pain management agreement was reviewed with the patient. The patient is aware of the risks/benefits of the medicatiion, potential for addiction/overdose, and how to safely store and dispose of the medication(s). The patient understands the goal of our treatment is a reduction in pain and/or an improved level of functioning with activities of daily living. If at any time the patient does not feel the medications are helping them to achieve these goals, the medications may be discontinued. The patient reports a reduction in pain and/or an improved level of functioning with activities of daily living, denies any significant adverse effects, is compliant with the pain management agreement and there are no signs of medication misuse, abuse or diversion; therefore, the medications will be continued. Continue contin and oxycodone for btp. Continue methocarbamol He was started on this medication and has been maintained on it by Dr Ceballos and [employer]ANT's working with her. Encouraged to follow instructions of PCP and specialists Encouraged to start PT for cervical spine pain. Once completed will order MRI Follow-up in 1 month Adeline Kaminski APRN.JADA documented in this encounter [facility] 04-01-2023 Instructions Adeline Kaminski APRN.CNP - 04/01/2023 7:00 AM EST Continue MS contin and oxycodone for btp. Continue methocarbamol He was started on this medication and has been maintained on it by Dr Ceballos and [employer]'s working with her. He is compliant with the pain management agreement and there have been no signs of medication misuse, abuse or diversion. Encouraged to follow instructions of PCP and specialists Encouraged to start PT for cervical spine pain. Once completed will order MRI Follow-up in 1 month documented in this encounter [facility] 04-01-2023 Miscellaneous Notes Items addressed in this encounter: MyChart Encounter Able to close encounter. Georgette Breaux MA April 01, 2023 5:29 AM 5:29 AM documented in this encounter [facility] 04-01-2023 Miscellaneous Notes Items addressed in this encounter: Virtual Visit Pre Check In Able to close encounter. Georgette Breaux MA April 01, 2023 5:27 AM 5:27 AM documented in this encounter [facility] 03-31-2023 Miscellaneous Notes Items addressed in this encounter: Health Maintenance Review Able to close encounter. Georgette Breaux MA March 31, 2023 2:56 PM 2:56 PM documented in this encounter [facility] 03-03-2023 Note HNO ID: [id number] Author: ADELINE KAMINSKI APRN.PLUG SORTER Service: ? Author Type: Nurse Practitioner Type: Progress Notes Filed: 03/13/2023 08:29 Note Text: This video visit was performed via [employer] Video Visit. Patient consented to receive health care services via virtual visit for this encounter Provider Location: Non-[facility] Facility Patient Location: Patient Home or Place of Residence I have communicated my name and active licensure. The patient's identity and physical location were verified at the time of this visit. Either the patient or their legal provider service representative has been informed of the risks and benefits of -- and alternatives to -- treatment through a remote evaluation and consents to proceed with the evaluation remotely. Chief Complaint: Pain History of Present Illness: Gerald Staley is a 62 year old year old male being seen at [facility] for a evaluation and/or management of his chronic pain. The patient was last seen virtually on 02/11/2023. He states that since the last visit symptoms have been stable. His medical history has not changed and he denies any hospital stays or ER visits. Pain level: 7-8 /10 Location: neck, pain in both shoulders - greater on right Character: constant ache Numbness/tingling: in B/L hands. Denies dropping objects with hands. He can lift <50 lbs. Reports pain worse with using left shoulder Reports pain better with rest and medications Denies falls. Denies stumbling. He gets 4 hours of uninterrupted sleep at nights and wakes up feeling unrested in the mornings. Patient denies any bowel or bladder dysfunction. The patient is currently prescribed Morphine, oxycodone and methocarbamol our office. The last doses or morphine and oxycodone were taken yesterday. The medications are partially effective. PDMP website checked and validated. OARRS report reviewed and is consistent with the patients medical history and medication intake. Last Opioid agreement effective date: 01/28/2022 Last UDS: Reviewed - No inconsistencies noted. 11/10/22 UDS Consistent Summary Report Date Value Ref Range Status 11/10/2022 FINAL Final Comment: Ethanol Biomarkers, MS, Ur RFX Cannabinoids, MS, Ur RFX Opiate Class, MS, Ur RFX Oxycodone Class, MS, Ur RFX ToxAssure Flex 23, Ur Test Result Flag Units Drug Present Ethyl Glucuronide 1955 ng/mg creat Ethyl Sulfate 800 ng/mg creat EtG and EtS are metabolites of ethyl alcohol; EtG may be a fermentation product of glucose, but EtS is not known to be formed by fermentation. Incidental exposure to alcohol may result in detectable levels of EtG and/or EtS. EtG/EtS results should be interpreted in the context of all available clinical and behavioral information. Carboxy-THC 14 ng/mg creat Carboxy-THC is a metabolite of tetrahydrocannabinol (THC). Source of THC is most commonly herbal marijuana or marijuana-based products, but THC is also present in a scheduled prescription medication. Trace amounts of THC can be present in hemp and cannabidiol (CBD) products. This test is not intended to distinguish between niqvq-5-buvyahjupdprfncogcng, the predominant form of THC in most herbal or marijuana-based products, and smhfq-9-pyirdcuppbbetocalfqw. Morphine 2217 ng/mg creat Normorphine 86 ng/mg creat Potential sources of large amounts of morphine in the absence of codeine include administration of morphine or use of heroin. Normorphine is an expected metabolite of morphine. Hydromorphone 58 ng/mg creat Hydromorphone may be present as a metabolite of morphine; concentrations of hydromorphone rarely exceed 5% of the morphine concentration when this is the source of hydromorphone. Oxycodone 3904 ng/mg creat Oxymorphone 2202 ng/mg creat Noroxycodone 4280 ng/mg creat Noroxymorphone 1130 ng/mg creat Sources of oxycodone are scheduled prescription medications. Oxymorphone, noroxycodone, and noroxymorphone are expected metabolites of oxycodone. Oxymorphone is also available as a scheduled prescription medication. Test Result Flag Units Ref Range Creatinine 166 mg/dL >=20 Declared Medications: Medication list was not provided. For clinical consultation, please call . Chronic Pain Functional Assessment Tools Pain Disability Index: Pain Disability Index 11/10/2022 02/10/2023 Family/Home Responsibilities: This category includes chores or duties perfor (more content not included)... [facility] 02-11-2023 Note HNO ID: [id number] Author: Adeline Kaminski APRN.JADA Service: ? Author Type: Nurse Practitioner Type: Progress Notes Filed: 02/11/2023 7:16 AM Note Text: This video visit was performed via [employer] Video Visit. Patient consented to receive health care services via virtual visit for this encounter Provider Location: Non-[facility] Patient Location: Patient Home or Place of Residence Risks, benefits, and limitations of receiving care virtually were discussed with the patient. The patient expressed understanding and is willing to proceed. Chief Complaint: Pain History of Present Illness: Gerald Staley is a 62 year old year old male being seen at [facility] for a evaluation and/or management of his chronic pain. The patient was last seen on Visit date not found He states that since the last visit symptoms have been stable. His medical history has not changed and he denies any hospital stays or ER visits. Pain level: 6-7/10 with meds Location: neck, pain in both shoulders - greater on right Character: constant ache Numbness/tingling: in B/L hands. Denies dropping objects with hands. He can lift <50 lbs. Reports pain worse with using left shoulder Reports pain better with rest and medications Denies falls. Denies stumbling. He gets 4 hours of uninterrupted sleep at nights and wakes up feeling unrested in the mornings. Patient denies any bowel or bladder dysfunction. The patient is currently prescribed Morphine, oxycodone and methocarbamol our office. The last doses or morphine and oxycodone were taken today. The medications are partially effective. PDMP website checked and validated. OARRS report reviewed and is consistent with the patients medical history and medication intake. Last Opioid agreement effective date: 01/28/2022 Last UDS: Reviewed - No inconsistencies noted. 11/10/22 UDS Consistent Summary Report Date Value Ref Range Status 11/10/2022 FINAL Final Comment: Ethanol Biomarkers, MS, Ur RFX Cannabinoids, MS, Ur RFX Opiate Class, MS, Ur RFX Oxycodone Class, MS, Ur RFX ToxAssure Flex 23, Ur Test Result Flag Units Drug Present Ethyl Glucuronide 1955 ng/mg creat Ethyl Sulfate 800 ng/mg creat EtG and EtS are metabolites of ethyl alcohol; EtG may be a fermentation product of glucose, but EtS is not known to be formed by fermentation. Incidental exposure to alcohol may result in detectable levels of EtG and/or EtS. EtG/EtS results should be interpreted in the context of all available clinical and behavioral information. Carboxy-THC 14 ng/mg creat Carboxy-THC is a metabolite of tetrahydrocannabinol (THC). Source of THC is most commonly herbal marijuana or marijuana-based products, but THC is also present in a scheduled prescription medication. Trace amounts of THC can be present in hemp and cannabidiol (CBD) products. This test is not intended to distinguish between qmrxq-6-luwgyoacklorrhrjpgvr, the predominant form of THC in most herbal or marijuana-based products, and bifky-8-gwkbrvvmmdvnsxnitkju. Morphine 2217 ng/mg creat Normorphine 86 ng/mg creat Potential sources of large amounts of morphine in the absence of codeine include administration of morphine or use of heroin. Normorphine is an expected metabolite of morphine. Hydromorphone 58 ng/mg creat Hydromorphone may be present as a metabolite of morphine; concentrations of hydromorphone rarely exceed 5% of the morphine concentration when this is the source of hydromorphone. Oxycodone 3904 ng/mg creat Oxymorphone 2202 ng/mg creat Noroxycodone 4280 ng/mg creat Noroxymorphone 1130 ng/mg creat Sources of oxycodone are scheduled prescription medications. Oxymorphone, noroxycodone, and noroxymorphone are expected metabolites of oxycodone. Oxymorphone is also available as a scheduled prescription medication. Test Result Flag Units Ref Range Creatinine 166 mg/dL >=20 Declared Medications: Medication list was not provided. For clinical consultation, please call . Chronic Pain Functional Assessment Tools Pain Disability Index: Pain Disability Index 11/10/2022 02/10/2023 Family/Home Responsibilities: This category includes chores or duties performed around the house (e.g. yard work), errands or favors for other family members (e.g. driving the children to school) 8 8 Recreation: This category includes hobbies, sports, and o (more content not included)... [facility] 01-28-2023 Miscellaneous Notes Patient phones requesting refills as follows: Requested Prescriptions Pending Prescriptions Disp Refills morphine SR (MS CONTIN) 15 mg 12 hr tablet 30 tablet 0 Sig: Take 1 tablet by mouth once daily as needed for pain for up to 30 days. for Pain oxyCODONE (ROXICODONE) 15 mg immediate release tablet 90 tablet 0 Sig: Take 1 tablet by mouth every 8 hours as needed for pain for up to 30 days. Last UDS: HE IS NO LONGER UNDER [facility]. ALL CLAIMS HAVE BEEN SETTLED. MAIN INSURANCE IS [employer] Summary Report Date Value Ref Range Status 11/10/2022 FINAL Final Comment: Ethanol Biomarkers, MS, Ur RFX Cannabinoids, MS, Ur RFX Opiate Class, MS, Ur RFX Oxycodone Class, MS, Ur RFX ToxAssure Flex 23, Ur Test Result Flag Units Drug Present Ethyl Glucuronide 1955 ng/mg creat Ethyl Sulfate 800 ng/mg creat EtG and EtS are metabolites of ethyl alcohol; EtG may be a fermentation product of glucose, but EtS is not known to be formed by fermentation. Incidental exposure to alcohol may result in detectable levels of EtG and/or EtS. EtG/EtS results should be interpreted in the context of all available clinical and behavioral information. Carboxy-THC 14 ng/mg creat Carboxy-THC is a metabolite of tetrahydrocannabinol (THC). Source of THC is most commonly herbal marijuana or marijuana-based products, but THC is also present in a scheduled prescription medication. Trace amounts of THC can be present in hemp and cannabidiol (CBD) products. This test is not intended to distinguish between bhjoo-6-uamlicbepvmtxszoklbn, the predominant form of THC in most herbal or marijuana-based products, and axlim-3-awnhsvltngtxbncsoqec. Morphine 2217 ng/mg creat Normorphine 86 ng/mg creat Potential sources of large amounts of morphine in the absence of codeine include administration of morphine or use of heroin. Normorphine is an expected metabolite of morphine. Hydromorphone 58 ng/mg creat Hydromorphone may be present as a metabolite of morphine; concentrations of hydromorphone rarely exceed 5% of the morphine concentration when this is the source of hydromorphone. Oxycodone 3904 ng/mg creat Oxymorphone 2202 ng/mg creat Noroxycodone 4280 ng/mg creat Noroxymorphone 1130 ng/mg creat Sources of oxycodone are scheduled prescription medications. Oxymorphone, noroxycodone, and noroxymorphone are expected metabolites of oxycodone. Oxymorphone is also available as a scheduled prescription medication. Test Result Flag Units Ref Range Creatinine 166 mg/dL >=20 Declared Medications: Medication list was not provided. For clinical consultation, please call . @FLOW(,)@ Lab Results Component Value Date SUMM FINAL 11/10/2022 Summary Report (Summary) Date Value Ref Range Status 11/22/2021 FINAL Final Comment: TOXASSURE COMP DRUG ANALYSIS,UR Test Result Flag Units Drug Present Carboxy-THC 15 ng/mg creat Carboxy-THC is a metabolite of tetrahydrocannabinol (THC). Source of THC is most commonly herbal marijuana or marijuana-based products, but THC is also present in a scheduled prescription medication. Trace amounts of THC can be present in hemp and cannabidiol (CBD) products. This test is not intended to distinguish between btnni-8-thnpacmtyryjbfnlccux, the predominant form of THC in most herbal or marijuana-based products, and tqble-4-vvriqgdqzmvazabqqquj. Morphine 1845 ng/mg creat Potential sources of large amounts of morphine in the absence of codeine include administration of morphine or use of heroin. Oxycodone 960 ng/mg creat Oxymorphone 359 ng/mg creat Noroxycodone 2246 ng/mg creat Noroxymorphone 622 ng/mg creat Sources of oxycodone are scheduled prescription medications. Oxymorphone, noroxycodone, and noroxymorphone are expected metabolites of oxycodone. Oxymorphone is also available as a scheduled prescription medication. Gabapentin PRESENT Lamotrigine PRESENT Quetiapine PRESENT Test Result Flag Units Ref Range Creatinine 134 mg/dL >=20 Declared Medications: Medication list was not provided. For clinical consultation, please call . Last Opioid agreement effective date: 01/28/2022 Please review and advise. Desi Vieira RN documented in this encounter [facility] 12-30-2022 Miscellaneous Notes The following approved medication requests have been transmitted electronically. Requested Prescriptions Pending Prescriptions Disp Refills methocarbamol (ROBAXIN-750) 750 mg tablet 90 tablet 0 Sig: Take 1 tablet by mouth three times a day as needed. Allie Ceballos DO Patient phones requesting refills as follows: Requested Prescriptions Pending Prescriptions Disp Refills methocarbamol (ROBAXIN-750) 750 mg tablet 90 tablet 0 Sig: Take 1 tablet by mouth three times a day as needed. Last UDS: HE IS NO LONGER UNDER [facility]. ALL CLAIMS HAVE BEEN SETTLED. MAIN INSURANCE IS [employer] Summary Report Date Value Ref Range Status 11/10/2022 FINAL Final Comment: Ethanol Biomarkers, MS, Ur RFX Cannabinoids, MS, Ur RFX Opiate Class, MS, Ur RFX Oxycodone Class, MS, Ur RFX ToxAssure Flex 23, Ur Test Result Flag Units Drug Present Ethyl Glucuronide 1955 ng/mg creat Ethyl Sulfate 800 ng/mg creat EtG and EtS are metabolites of ethyl alcohol; EtG may be a fermentation product of glucose, but EtS is not known to be formed by fermentation. Incidental exposure to alcohol may result in detectable levels of EtG and/or EtS. EtG/EtS results should be interpreted in the context of all available clinical and behavioral information. Carboxy-THC 14 ng/mg creat Carboxy-THC is a metabolite of tetrahydrocannabinol (THC). Source of THC is most commonly herbal marijuana or marijuana-based products, but THC is also present in a scheduled prescription medication. Trace amounts of THC can be present in hemp and cannabidiol (CBD) products. This test is not intended to distinguish between qsnlr-6-sezqxsadzljfjldxqbka, the predominant form of THC in most herbal or marijuana-based products, and mgvmn-0-vvjwkrqjpzknsldksftc. Morphine 2217 ng/mg creat Normorphine 86 ng/mg creat Potential sources of large amounts of morphine in the absence of codeine include administration of morphine or use of heroin. Normorphine is an expected metabolite of morphine. Hydromorphone 58 ng/mg creat Hydromorphone may be present as a metabolite of morphine; concentrations of hydromorphone rarely exceed 5% of the morphine concentration when this is the source of hydromorphone. Oxycodone 3904 ng/mg creat Oxymorphone 2202 ng/mg creat Noroxycodone 4280 ng/mg creat Noroxymorphone 1130 ng/mg creat Sources of oxycodone are scheduled prescription medications. Oxymorphone, noroxycodone, and noroxymorphone are expected metabolites of oxycodone. Oxymorphone is also available as a scheduled prescription medication. Test Result Flag Units Ref Range Creatinine 166 mg/dL >=20 Declared Medications: Medication list was not provided. For clinical consultation, please call . @FLOW([id number])@ Lab Results Component Value Date SUMM FINAL 11/10/2022 Summary Report (Summary) Date Value Ref Range Status 11/22/2021 FINAL Final Comment: TOXASSURE COMP DRUG ANALYSIS,UR Test Result Flag Units Drug Present Carboxy-THC 15 ng/mg creat Carboxy-THC is a metabolite of tetrahydrocannabinol (THC). Source of THC is most commonly herbal marijuana or marijuana-based products, but THC is also present in a scheduled prescription medication. Trace amounts of THC can be present in hemp and cannabidiol (CBD) products. This test is not intended to distinguish between fnqnf-4-kudunmjcouzwpzviynku, the predominant form of THC in most herbal or marijuana-based products, and gmdyi-6-eeyrnklnogexzhqbqjlg. Morphine 1845 ng/mg creat Potential sources of large amounts of morphine in the absence of codeine include administration of morphine or use of heroin. Oxycodone 960 ng/mg creat Oxymorphone 359 ng/mg creat Noroxycodone 2246 ng/mg creat Noroxymorphone 622 ng/mg creat Sources of oxycodone are scheduled prescription medications. Oxymorphone, noroxycodone, and noroxymorphone are expected metabolites of oxycodone. Oxymorphone is also available as a scheduled prescription medication. Gabapentin PRESENT Lamotrigine PRESENT Quetiapine PRESENT Test Result Flag Units Ref Range Creatinine 134 mg/dL >=20 Declared Medications: Medication list was not provided. For clinical consultation, please call . Please review and advise. Annabelle Green RN documented in this encounter [facility] 12-30-2022 Miscellaneous Notes The following approved medication requests have been transmitted electronically. Requested Prescriptions Pending Prescriptions Disp Refills morphine SR (MS CONTIN) 15 mg 12 hr tablet 30 tablet 0 Sig: Take 1 tablet by mouth once daily as needed for pain for up to 30 days. for Pain Do not start before January 03, 2023. oxyCODONE (ROXICODONE) 15 mg immediate release tablet 90 tablet 0 Sig: Take 1 tablet by mouth every 8 hours as needed for pain for up to 30 days. Do not start before January 03, 2023. Allie Ceballos DO Patient phones requesting refills as follows: Requested Prescriptions Pending Prescriptions Disp Refills morphine SR (MS CONTIN) 15 mg 12 hr tablet 30 tablet 0 Sig: Take 1 tablet by mouth once daily as needed for pain for up to 30 days. for Pain oxyCODONE (ROXICODONE) 15 mg immediate release tablet 90 tablet 0 Sig: Take 1 tablet by mouth every 8 hours as needed for pain for up to 30 days. Last UDS: HE IS NO LONGER UNDER [facility]. ALL CLAIMS HAVE BEEN SETTLED. MAIN INSURANCE IS [employer] Summary Report Date Value Ref Range Status 11/10/2022 FINAL Final Comment: Ethanol Biomarkers, MS, Ur RFX Cannabinoids, MS, Ur RFX Opiate Class, MS, Ur RFX Oxycodone Class, MS, Ur RFX ToxAssure Flex 23, Ur Test Result Flag Units Drug Present Ethyl Glucuronide 1955 ng/mg creat Ethyl Sulfate 800 ng/mg creat EtG and EtS are metabolites of ethyl alcohol; EtG may be a fermentation product of glucose, but EtS is not known to be formed by fermentation. Incidental exposure to alcohol may result in detectable levels of EtG and/or EtS. EtG/EtS results should be interpreted in the context of all available clinical and behavioral information. Carboxy-THC 14 ng/mg creat Carboxy-THC is a metabolite of tetrahydrocannabinol (THC). Source of THC is most commonly herbal marijuana or marijuana-based products, but THC is also present in a scheduled prescription medication. Trace amounts of THC can be present in hemp and cannabidiol (CBD) products. This test is not intended to distinguish between iciem-5-puelqvnfgvmqmbudswuj, the predominant form of THC in most herbal or marijuana-based products, and rkuzu-4-igttwtzillhvgvnbguzk. Morphine 2217 ng/mg creat Normorphine 86 ng/mg creat Potential sources of large amounts of morphine in the absence of codeine include administration of morphine or use of heroin. Normorphine is an expected metabolite of morphine. Hydromorphone 58 ng/mg creat Hydromorphone may be present as a metabolite of morphine; concentrations of hydromorphone rarely exceed 5% of the morphine concentration when this is the source of hydromorphone. Oxycodone 3904 ng/mg creat Oxymorphone 2202 ng/mg creat Noroxycodone 4280 ng/mg creat Noroxymorphone 1130 ng/mg creat Sources of oxycodone are scheduled prescription medications. Oxymorphone, noroxycodone, and noroxymorphone are expected metabolites of oxycodone. Oxymorphone is also available as a scheduled prescription medication. Test Result Flag Units Ref Range Creatinine 166 mg/dL >=20 Declared Medications: Medication list was not provided. For clinical consultation, please call . @FLOW([id number])@ Lab Results Component Value Date SUMM FINAL 11/10/2022 Summary Report (Summary) Date Value Ref Range Status 11/22/2021 FINAL Final Comment: TOXASSURE COMP DRUG ANALYSIS,UR Test Result Flag Units Drug Present Carboxy-THC 15 ng/mg creat Carboxy-THC is a metabolite of tetrahydrocannabinol (THC). Source of THC is most commonly herbal marijuana or marijuana-based products, but THC is also present in a scheduled prescription medication. Trace amounts of THC can be present in hemp and cannabidiol (CBD) products. This test is not intended to distinguish between crcor-6-xvnxnmcgcmwmuhgqxdtv, the predominant form of THC in most herbal or marijuana-based products, and xcycy-1-ftryvwikuebokmtkejuk. Morphine 1845 ng/mg creat Potential sources of large amounts of morphine in the absence of codeine include administration of morphine or use of heroin. Oxycodone 960 ng/mg creat Oxymorphone 359 ng/mg creat Noroxycodone 2246 ng/mg creat Noroxymorphone 622 ng/mg creat Sources of oxycodone are scheduled prescription medications. Oxymorphone, noroxycodone, and noroxymorphone are expected metabolites of oxycodone. Oxymorphone is also available as a scheduled prescription medication. Gabapentin PRESENT Lamotrigine PRESENT Quetiapine PRESENT Test Result Flag Units Ref Range Creatinine 134 mg/dL >=20 Declared Medications: Medication list was not provided. For clinical consultation, please call . Please review and advise. Annabelle Green RN documented in this encounter [facility] 12-03-2022 Note HNO ID: [id number] Author: Lauren Steen APRN.PLUG SORTER Service: ? Author Type: Nurse Practitioner Type: Progress Notes Filed: 12/03/2022 2:34 PM Note Text: This is a 62 year old male who presents today with: Patient presents with: Recheck: 6 month follow up- med refill HISTORY OF PRESENT ILLNESS: Gerald Staley is a 62 year old male. Patient presents with: Recheck: 6 month follow up- med refill Patient ran out of medication a few days ago. He says he gets bad headaches after missing several doses. Today's pressures were controlled despite not being on any medication. Endorses compliance with medication with maybe 1 day a month where he forgets to take it. Does not monitor BP at home. Denies side effects. Denies CP, palpitations, SOB, swelling, dizziness and syncope. Refers to headaches, but attributes it to his shoulder pain in which he sees pain management. PAST MEDICAL HISTORY: PAST MEDICAL HISTORY Diagnosis Date Abnormal EKG 04/23/2017 inf [place] age undetermined Adenomatous colon polyp Anxiety Chicken pox Colon polyps Depression ED (erectile dysfunction) Headache HTN (hypertension) Hypogonadism male 04/25/2010 Pulmonary embolism (HCC) Rectal bleed Shingles Shoulder pain pain management. PAST SURGICAL HISTORY Procedure Laterality Date COLONOSCOPY 06/09/2022 Tubular Adenoma COLONOSCOPY FLX DX W/COLLJ SPEC WHEN PFRMD age 40 Colonoscopy COLONOSCOPY FLX DX W/COLLJ SPEC WHEN PFRMD 06/04/2010 Colonoscopy COLONOSCOPY FLX DX W/COLLJ SPEC WHEN PFRMD 05/25/2018 Multiple Fragments of Tubular Adenoma, Diverticulosis COLONOSCOPY GEN ANES 06/27/2020 Two 4 to 7 mm polyps (adenomatous and hyperplastic ) COLSC FLX W/RMVL OF TUMOR POLYP LESION SNARE TQ 05/30/2016 adenomatous polyp - small - 5 year follow up ESOPHAGOGASTRODUODENOSCOPY TRANSORAL DIAGNOSTIC 05/25/2018 Duodenitis, Gastritis FOOT SURGERY HX Right ~ 2014 OPEN REPAIR OF ROTATOR CUFF ACUTE Right 10/2016 Rotator cuff repair - Dr. Santamaria RECONSTRUCTION ROTATOR CUFF AVULSION CHRONIC Left 03/21/2010 Dr. Stalin Clark [facility] UMBILICAL [facility]RNA 5 YRS/> REDUCIBLE 06/11/2016 simple SKIN GRAFT HX Right 1987 eyelid TONSILLECTOMY HX Childhood ALLERGIES Bakari Inhibitors and Darvocet A500 [Propoxyphene N-Acetaminophen] MEDICATIONS Current Outpatient Medications Medication Sig [START ON 12/04/2022] morphine SR (MS CONTIN) 15 mg 12 hr tablet Take 1 tablet by mouth once daily as needed for pain for up to 30 days. for Pain Do not start before December 04, 2022. [START ON 12/04/2022] oxyCODONE (ROXICODONE) 15 mg immediate release tablet Take 1 tablet by mouth every 8 hours as needed for pain for up to 30 days. Do not start before December 04, 2022. oxyCODONE-acetaminophen (PERCOCET 10) 10-325 mg tablet lisinopril (ZESTRIL) 10 mg tablet methocarbamol (ROBAXIN-750) 750 mg tablet Take 1 tablet by mouth three times daily as needed. omeprazole (PRILOSEC) 20 mg capsule TAKE 1 CAPSULE BY MOUTH 30 MINUTES BEFORE BREAKFAST diclofenac (VOLTAREN) 1 % topical gel Apply 4 g to affected area four times daily as needed (for pain). As Directed. losartan (COZAAR) 100 mg tablet Take 1 tablet by mouth once daily. triamterene-hydroCHLOROthiazide (MAXZIDE-25MG) 37.5-25 mg per tablet Take 1 tablet by mouth once daily. naloxone 4 mg/actuation nasal spray (NARCAN) No current facility-administered medications for this visit. Facility-Administered Medications Ordered in Other Visits Medication Dose Route Frequency lidocaine (PF) 10 mg/mL (1 %) 1-2 mg injection (XYLOCAINE) 0.1-0.2 mL INTRADERMAL PRN lactated ringers iv infusion 30 mL/hr INTRAVENOUS CONTINUOUS FAMILY HISTORY Problem Relation Age of Onset Diabetes Mother Hypertension Mother Arthritis Mother Breast Cancer Mother Dementia Mother Cancer Father throat Asthma No Family History Colon Cancer No Family History Social History Tobacco Use Smoking status: Never Smokeless tobacco: Never Vaping Use Vaping Use: Never used Substance Use Topics Alcohol use: Yes Alcohol/week: 15.0 standard drinks of alcohol Types: 6 Cans of Beer (12oz) per week Comment: 12 pack a week Drug use: Not Currently Comment: no longer using. REVIEW OF SYSTEMS PAIN ASSESSMENT: Chronic pain with bilateral upper extremities. Sees pain management. GENERAL: No malaise or fevers. Been dieting and has lost some weight HEENT: No changes in hearing or vision, no nose bleeds or other nasal problems. Eye exam > 5 years. RESPIRATORY: Negative for cough, hemoptysis, wheezing, COPD, dyspnea or shortness of breath CARDIOVASCULAR: Negative for chest pain, leg swelling, hypertension, CHF or palpitations GI: No nausea, vomiting, or diarrhea : No history of dysuria, frequency or incontinence All other reviewed and negative other than HPI. EXAM: BP 124/82 Pulse (!) 45 Resp 16 Wt 85.7 kg (189 lb) SpO2 98% BMI 30.51 kg/m? PHYSICAL EXAM: General (more content not included)... [facility] 12-03-2022 Instructions Lauren Steen APRN.JADA - 12/03/2022 1:50 PM EDT Same medications. Get labwork. Schedule echo. Recheck in 6 months. documented in this encounter [facility] 12-03-2022 History of Present illness Narrative This is a 62 year old male who presents today with: Patient presents with: Recheck: 6 month follow up- med refill HISTORY OF PRESENT ILLNESS: Gerald Staley is a 62 year old male. Patient presents with: Recheck: 6 month follow up- med refill Patient ran out of medication a few days ago. He says he gets bad headaches after missing several doses. Today's pressures were controlled despite not being on any medication. Endorses compliance with medication with maybe 1 day a month where he forgets to take it. Does not monitor BP at home. Denies side effects. Denies CP, palpitations, SOB, swelling, dizziness and syncope. Refers to headaches, but attributes it to his shoulder pain in which he sees pain management. PAST MEDICAL HISTORY: PAST MEDICAL HISTORY Diagnosis Date Abnormal EKG 04/23/2017 inf [place] age undetermined Adenomatous colon polyp Anxiety Chicken pox Colon polyps Depression ED (erectile dysfunction) Headache HTN (hypertension) Hypogonadism male 04/25/2010 Pulmonary embolism (HCC) Rectal bleed Shingles Shoulder pain pain management. PAST SURGICAL HISTORY Procedure Laterality Date COLONOSCOPY 06/09/2022 Tubular Adenoma COLONOSCOPY FLX DX W/COLLJ SPEC WHEN PFRMD age 40 Colonoscopy COLONOSCOPY FLX DX W/COLLJ SPEC WHEN PFRMD 06/04/2010 Colonoscopy COLONOSCOPY FLX DX W/COLLJ SPEC WHEN PFRMD 05/25/2018 Multiple Fragments of Tubular Adenoma, Diverticulosis COLONOSCOPY GEN ANES 06/27/2020 Two 4 to 7 mm polyps (adenomatous and hyperplastic ) COLSC FLX W/RMVL OF TUMOR POLYP LESION SNARE TQ 05/30/2016 adenomatous polyp - small - 5 year follow up ESOPHAGOGASTRODUODENOSCOPY TRANSORAL DIAGNOSTIC 05/25/2018 Duodenitis, Gastritis FOOT SURGERY HX Right ~ 2014 OPEN REPAIR OF ROTATOR CUFF ACUTE Right 10/2016 Rotator cuff repair - Dr. Santamaria RECONSTRUCTION ROTATOR CUFF AVULSION CHRONIC Left 03/21/2010 Dr. Stalin Clark [facility] UMBILICAL HRNA 5 YRS/> REDUCIBLE 06/11/2016 simple SKIN GRAFT HX Right 1987 eyelid TONSILLECTOMY HX Childhood ALLERGIES Bakari Inhibitors and Darvocet A500 [Propoxyphene N-Acetaminophen] MEDICATIONS Current Outpatient Medications Medication Sig [START ON 12/04/2022] morphine SR (MS CONTIN) 15 mg 12 hr tablet Take 1 tablet by mouth once daily as needed for pain for up to 30 days. for Pain Do not start before December 04, 2022. [START ON 12/04/2022] oxyCODONE (ROXICODONE) 15 mg immediate release tablet Take 1 tablet by mouth every 8 hours as needed for pain for up to 30 days. Do not start before December 04, 2022. oxyCODONE-acetaminophen (PERCOCET 10) 10-325 mg tablet lisinopril (ZESTRIL) 10 mg tablet methocarbamol (ROBAXIN-750) 750 mg tablet Take 1 tablet by mouth three times daily as needed. omeprazole (PRILOSEC) 20 mg capsule TAKE 1 CAPSULE BY MOUTH 30 MINUTES BEFORE BREAKFAST diclofenac (VOLTAREN) 1 % topical gel Apply 4 g to affected area four times daily as needed (for pain). As Directed. losartan (COZAAR) 100 mg tablet Take 1 tablet by mouth once daily. triamterene-hydroCHLOROthiazide (MAXZIDE-25MG) 37.5-25 mg per tablet Take 1 tablet by mouth once daily. naloxone 4 mg/actuation nasal spray (NARCAN) No current facility-administered medications for this visit. Facility-Administered Medications Ordered in Other Visits Medication Dose Route Frequency lidocaine (PF) 10 mg/mL (1 %) 1-2 mg injection (XYLOCAINE) 0.1-0.2 mL INTRADERMAL PRN lactated ringers iv infusion 30 mL/hr INTRAVENOUS CONTINUOUS FAMILY HISTORY Problem Relation Age of Onset Diabetes Mother Hypertension Mother Arthritis Mother Breast Cancer Mother Dementia Mother Cancer Father throat Asthma No Family History Colon Cancer No Family History Social History Tobacco Use Smoking status: Never Smokeless tobacco: Never Vaping Use Vaping Use: Never used Substance Use Topics Alcohol use: Yes Alcohol/week: 15.0 standard drinks of alcohol Types: 6 Cans of Beer (12oz) per week Comment: 12 pack a week Drug use: Not Currently Comment: no longer using. REVIEW OF SYSTEMS PAIN ASSESSMENT: Chronic pain with bilateral upper extremities. Sees pain management. GENERAL: No malaise or fevers. Been dieting and has lost some weight HEENT: No changes in hearing or vision, no nose bleeds or other nasal problems. Eye exam > 5 years. RESPIRATORY: Negative for cough, hemoptysis, wheezing, COPD, dyspnea or shortness of breath CARDIOVASCULAR: Negative for chest pain, leg swelling, hypertension, CHF or palpitations GI: No nausea, vomiting, or diarrhea : No history of dysuria, frequency or incontinence All other reviewed and negative other than HPI. EXAM: BP 124/82 Pulse (!) 45 Resp 16 Wt 85.7 kg (189 lb) SpO2 98% BMI 30.51 kg/m PHYSICAL EXAM: General Appearance: Well appearing, alert, in no acute distress, well-hydrated, well nourished.. Skin: Skin color, texture, turgor normal, no suspicious rashes or lesions. Head: Normocephalic, no masses, lesions, tenderness or abnormalities. Eyes: Anicteric sclera. Pupils are equally round and reactive to light. Extraocular movements are intact. . Ears: External ears normal, canals clear. Lungs: Lungs clear to auscultation. No wheezing, rhonchi, rales.. Heart: RRR without murmur, gallop, or rubs. No ectopy. ASSESSMENT/PLAN: 1. 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 Will repeat echo for surveillance - CBC + DIFF - ECHO - PERFLUTREN LIPID MICROSPHERES 1.1 MG/ML INJECTION IN NS 10 ML - SODIUM CHLORIDE 0.9 % (FLUSH) INJECTION SYRINGE 2. Essential hypertension, benign - ICD9: 401.1, ICD10: I10 - Controlled - Continue current medications - Recommend home blood pressure monitoring, to bring results to next visit - Encouraged sodium restriction, DASH or Mediterranean diet - Recommend regular aerobic exercise - Follow up in 6 months for hypertension visit - LOSARTAN 100 MG TABLET - TRIAMTERENE 37.5 MG-HYDROCHLOROTHIAZIDE 25 MG TABLET 3. Subclinical hypothyroidism - ICD9: 244.8, ICD10: E03.8 - Instructed patient on importance of taking on an empty stomach either first thing in the morning or at bedtime. History of subclinical hypothyroidism. Will get labs to monitor - TSH BLD - T4 FREE/FREE THYROX 4. Hyperlipidemia, unspecified hyperlipidemia type - ICD9: 272.4, ICD10: E78.5 - Control undetermined, due for labs. Will get labs to assess plan of care - Counseled on healthy diet and regular exercise - Discussed need for and benefit of weight loss. BMI 30.51 kg/(m^2) - COMP METABOLIC PANEL - LIPID PANEL, NONFASTING Discussed treatment plan and patient voices understanding. Patient's questions answered appropriately. Medications and potential side effects were discussed and patient voices understanding. Return to the office as scheduled or as needed for worsening/no improvement. Return to the office as scheduled or as needed for worsening/no improvement. Lauren Steen APRN.JADA documented in this encounter [facility] 11-28-2022 Miscellaneous Notes The following approved medication requests have been transmitted electronically. Requested Prescriptions Signed Prescriptions Disp Refills morphine SR (MS CONTIN) 15 mg 12 hr tablet 30 tablet 0 Sig: Take 1 tablet by mouth once daily as needed for pain for up to 30 days. for Pain Do not start before December 04, 2022. Authorizing Provider: ADELINE KAMINSKI APRN.CNP Patient phones requesting refills as follows: Requested Prescriptions Pending Prescriptions Disp Refills morphine SR (MS CONTIN) 15 mg 12 hr tablet 30 tablet 0 Sig: Take 1 tablet by mouth once daily as needed for pain for up to 30 days. for Pain Last UDS: Summary Report Date Value Ref Range Status 11/10/2022 FINAL Final Comment: Ethanol Biomarkers, MS, Ur RFX Cannabinoids, MS, Ur RFX Opiate Class, MS, Ur RFX Oxycodone Class, MS, Ur RFX ToxAssure Flex 23, Ur Test Result Flag Units Drug Present Ethyl Glucuronide 1955 ng/mg creat Ethyl Sulfate 800 ng/mg creat EtG and EtS are metabolites of ethyl alcohol; EtG may be a fermentation product of glucose, but EtS is not known to be formed by fermentation. Incidental exposure to alcohol may result in detectable levels of EtG and/or EtS. EtG/EtS results should be interpreted in the context of all available clinical and behavioral information. Carboxy-THC 14 ng/mg creat Carboxy-THC is a metabolite of tetrahydrocannabinol (THC). Source of THC is most commonly herbal marijuana or marijuana-based products, but THC is also present in a scheduled prescription medication. Trace amounts of THC can be present in hemp and cannabidiol (CBD) products. This test is not intended to distinguish between bhddl-8-ucpvyxnukrghlqbchhso, the predominant form of THC in most herbal or marijuana-based products, and xtgjx-7-xorfyrdvndhnkjqdftep. Morphine 2217 ng/mg creat Normorphine 86 ng/mg creat Potential sources of large amounts of morphine in the absence of codeine include administration of morphine or use of heroin. Normorphine is an expected metabolite of morphine. Hydromorphone 58 ng/mg creat Hydromorphone may be present as a metabolite of morphine; concentrations of hydromorphone rarely exceed 5% of the morphine concentration when this is the source of hydromorphone. Oxycodone 3904 ng/mg creat Oxymorphone 2202 ng/mg creat Noroxycodone 4280 ng/mg creat Noroxymorphone 1130 ng/mg creat Sources of oxycodone are scheduled prescription medications. Oxymorphone, noroxycodone, and noroxymorphone are expected metabolites of oxycodone. Oxymorphone is also available as a scheduled prescription medication. Test Result Flag Units Ref Range Creatinine 166 mg/dL >=20 Declared Medications: Medication list was not provided. For clinical consultation, please call . @FLOW([id number])@ Lab Results Component Value Date SUMM FINAL 11/10/2022 Summary Report (Summary) Date Value Ref Range Status 11/22/2021 FINAL Final Comment: TOXASSURE COMP DRUG ANALYSIS,UR Test Result Flag Units Drug Present Carboxy-THC 15 ng/mg creat Carboxy-THC is a metabolite of tetrahydrocannabinol (THC). Source of THC is most commonly herbal marijuana or marijuana-based products, but THC is also present in a scheduled prescription medication. Trace amounts of THC can be present in hemp and cannabidiol (CBD) products. This test is not intended to distinguish between zndnb-7-spxiqrbadtbwsdqqeqoz, the predominant form of THC in most herbal or marijuana-based products, and vkkai-8-dhtuvwdtadcaljmdbhsf. Morphine 1845 ng/mg creat Potential sources of large amounts of morphine in the absence of codeine include administration of morphine or use of heroin. Oxycodone 960 ng/mg creat Oxymorphone 359 ng/mg creat Noroxycodone 2246 ng/mg creat Noroxymorphone 622 ng/mg creat Sources of oxycodone are scheduled prescription medications. Oxymorphone, noroxycodone, and noroxymorphone are expected metabolites of oxycodone. Oxymorphone is also available as a scheduled prescription medication. Gabapentin PRESENT Lamotrigine PRESENT Quetiapine PRESENT Test Result Flag Units Ref Range Creatinine 134 mg/dL >=20 Declared Medications: Medication list was not provided. For clinical consultation, please call . Please review and advise. Annabelle Green RN documented in this encounter [facility] 11-27-2022 Miscellaneous Notes Patient phones requesting refills as follows: Requested Prescriptions Pending Prescriptions Disp Refills oxyCODONE (ROXICODONE) 15 mg immediate release tablet 90 tablet 0 Sig: Take 1 tablet by mouth every 8 hours as needed for pain for up to 30 days. Last UDS: Summary Report Date Value Ref Range Status 11/10/2022 FINAL Final Comment: Ethanol Biomarkers, MS, Ur RFX Cannabinoids, MS, Ur RFX Opiate Class, MS, Ur RFX Oxycodone Class, MS, Ur RFX ToxAssure Flex 23, Ur Test Result Flag Units Drug Present Ethyl Glucuronide 1955 ng/mg creat Ethyl Sulfate 800 ng/mg creat EtG and EtS are metabolites of ethyl alcohol; EtG may be a fermentation product of glucose, but EtS is not known to be formed by fermentation. Incidental exposure to alcohol may result in detectable levels of EtG and/or EtS. EtG/EtS results should be interpreted in the context of all available clinical and behavioral information. Carboxy-THC 14 ng/mg creat Carboxy-THC is a metabolite of tetrahydrocannabinol (THC). Source of THC is most commonly herbal marijuana or marijuana-based products, but THC is also present in a scheduled prescription medication. Trace amounts of THC can be present in hemp and cannabidiol (CBD) products. This test is not intended to distinguish between smpzj-0-rxyplhnvmtzsyudhvbye, the predominant form of THC in most herbal or marijuana-based products, and oxvep-1-auuoxxfemsvvobyklnhs. Morphine 2217 ng/mg creat Normorphine 86 ng/mg creat Potential sources of large amounts of morphine in the absence of codeine include administration of morphine or use of heroin. Normorphine is an expected metabolite of morphine. Hydromorphone 58 ng/mg creat Hydromorphone may be present as a metabolite of morphine; concentrations of hydromorphone rarely exceed 5% of the morphine concentration when this is the source of hydromorphone. Oxycodone 3904 ng/mg creat Oxymorphone 2202 ng/mg creat Noroxycodone 4280 ng/mg creat Noroxymorphone 1130 ng/mg creat Sources of oxycodone are scheduled prescription medications. Oxymorphone, noroxycodone, and noroxymorphone are expected metabolites of oxycodone. Oxymorphone is also available as a scheduled prescription medication. Test Result Flag Units Ref Range Creatinine 166 mg/dL >=20 Declared Medications: Medication list was not provided. For clinical consultation, please call . @FLOW([id number])@ Lab Results Component Value Date SUMM FINAL 11/10/2022 Summary Report (Summary) Date Value Ref Range Status 11/22/2021 FINAL Final Comment: TOXASSURE COMP DRUG ANALYSIS,UR Test Result Flag Units Drug Present Carboxy-THC 15 ng/mg creat Carboxy-THC is a metabolite of tetrahydrocannabinol (THC). Source of THC is most commonly herbal marijuana or marijuana-based products, but THC is also present in a scheduled prescription medication. Trace amounts of THC can be present in hemp and cannabidiol (CBD) products. This test is not intended to distinguish between fvwhc-8-vyogudunawbuvwsosacd, the predominant form of THC in most herbal or marijuana-based products, and igmhl-9-zjugfksqjzkrpzafrrdy. Morphine 1845 ng/mg creat Potential sources of large amounts of morphine in the absence of codeine include administration of morphine or use of heroin. Oxycodone 960 ng/mg creat Oxymorphone 359 ng/mg creat Noroxycodone 2246 ng/mg creat Noroxymorphone 622 ng/mg creat Sources of oxycodone are scheduled prescription medications. Oxymorphone, noroxycodone, and noroxymorphone are expected metabolites of oxycodone. Oxymorphone is also available as a scheduled prescription medication. Gabapentin PRESENT Lamotrigine PRESENT Quetiapine PRESENT Test Result Flag Units Ref Range Creatinine 134 mg/dL >=20 Declared Medications: Medication list was not provided. For clinical consultation, please call . Please review and advise. Annabelle Green RN documented in this encounter [facility] 11-10-2022 Note HNO ID: [id number] Author: Allie Ceballos, DO Service: ? Author Type: Physician Type: Progress Notes Filed: 11/10/2022 7:59 AM Note Text: -------- Summary: Pain Management follow-up -------- DATE: November 10, 2022 Chief Complaint: neck History of Present Illness: Gerald Staley is a 62 year old male being seen at [facility] for a evaluation and/or management of their chronic pain. The patient was last seen in the office on 08/04/2022 by Anna Foley NP, and the plan of care was as follows: Continue MS contin and oxycodone for btp. This helps patient perform ADL, interact with family and friends. OARRS reviewedd and consistent. UDS +THC but uses CBD Change lidocaine prilocaine cream to volatren gel Encouraged to follow instructions of PCP and specialists Encouraged to start PT for cervical spine pain to order MRI call [phone] Encouraged to complete cervical spine xray Followup in 3 months He reports his pain levels as getting worse since last office visit. He reports weakness in upper body and lightheadedness which he reports can be from other health issues. He saw a brain surgeon and workup was done which was negative. He also recently retired 1 year ago and did when his disability. 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 He is taking the medications as prescribed with benefit. He is using the Voltaren gel with benefit. He has not participated in PT as yet that was previously ordered. We discussed x-ray of cervical spine done on 08/04/2022 that showed no acute osseous abnormality or significant degenerative change. Slight wedging superior endplate of C6, unchanged. Pain level:6-7/10 with meds Location: neck Denies ED visits or hospitalizations since last office visit Reports pain worse with using left shoulder Reports pain better with rest and medications Describes pain in neck as constant ache Describes pain in both shoulders greater on right Numbness/tingling: in B/L hands. Denies dropping objects with hands. He can lift <50 lbs. Denies falls. Denies stumbling. He gets 4 hours of uninterrupted sleep at nights and wakes up feeling unrested in the mornings. Last UDS: consistent Summary Report Date Value Ref Range Status 04/28/2022 FINAL Final Comment: Cannabinoids, MS, Ur RFX Opiate Class, MS, Ur RFX Oxycodone Class, MS, Ur RFX ToxAssure Flex 23, Ur Test Result Flag Units Drug Present Carboxy-THC 14 ng/mg creat Carboxy-THC is a metabolite of tetrahydrocannabinol (THC). Source of THC is most commonly herbal marijuana or marijuana-based products, but THC is also present in a scheduled prescription medication. Trace amounts of THC can be present in hemp and cannabidiol (CBD) products. This test is not intended to distinguish between fbkvq-3-ucrwexknofyxwmsxmntq, the predominant form of THC in most herbal or marijuana-based products, and nyxtr-6-ncusogimgxwmgjgqfkhf. Morphine 8076 ng/mg creat Normorphine 234 ng/mg creat Potential sources of large amounts of morphine in the absence of codeine include administration of morphine or use of heroin. Normorphine is an expected metabolite of morphine. Oxycodone 329 ng/mg creat Oxymorphone 459 ng/mg creat Noroxycodone 974 ng/mg creat Noroxymorphone 1060 ng/mg creat Sources of oxycodone are scheduled prescription medications. Oxymorphone, noroxycodone, and noroxymorphone are expected metabolites of oxycodone. Oxymorphone is also available as a scheduled prescription medication. Test Result Flag Units Ref Range Creatinine 58 mg/dL >=20 Declared Medications: Medication list was not provided. For clinical consultation, please call . Summary Report (Summary) Date Value Ref Range Status 11/22/2021 FINAL Final Comment: TOXASSURE COMP DRUG ANALYSIS,UR Test Result Flag Units Drug Present Carboxy-THC 15 ng/mg creat Carboxy-THC is a metabolite of tetrahydrocannabinol (THC). Source of THC is most commonly herbal marijuana or marijuana-based products, but THC is also present in a scheduled prescription medication. Trace amounts of THC can be present (more content not included)... [facility] 11-10-2022 History of Present illness Narrative Summary: Pain Management follow-up DATE: November 10, 2022 Chief Complaint: neck History of Present Illness: Gerald Staley is a 62 year old male being seen at [facility] for a evaluation and/or management of their chronic pain. The patient was last seen in the office on 08/04/2022 by Anna Foley NP, and the plan of care was as follows: Continue MS contin and oxycodone for btp. This helps patient perform ADL, interact with family and friends. OARRS reviewedd and consistent. UDS +THC but uses CBD Change lidocaine prilocaine cream to volatren gel Encouraged to follow instructions of PCP and specialists Encouraged to start PT for cervical spine pain to order MRI call [phone] Encouraged to complete cervical spine xray Followup in 3 months He reports his pain levels as getting worse since last office visit. He reports weakness in upper body and lightheadedness which he reports can be from other health issues. He saw a brain surgeon and workup was done which was negative. He also recently retired 1 year ago and did when his disability. 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 He is taking the medications as prescribed with benefit. He is using the Voltaren gel with benefit. He has not participated in PT as yet that was previously ordered. We discussed x-ray of cervical spine done on 08/04/2022 that showed no acute osseous abnormality or significant degenerative change. Slight wedging superior endplate of C6, unchanged. Pain level:6-7/10 with meds Location: neck Denies ED visits or hospitalizations since last office visit Reports pain worse with using left shoulder Reports pain better with rest and medications Describes pain in neck as constant ache Describes pain in both shoulders greater on right Numbness/tingling: in B/L hands. Denies dropping objects with hands. He can lift <50 lbs. Denies falls. Denies stumbling. He gets 4 hours of uninterrupted sleep at nights and wakes up feeling unrested in the mornings. Last UDS: consistent Summary Report Date Value Ref Range Status 04/28/2022 FINAL Final Comment: Cannabinoids, MS, Ur RFX Opiate Class, MS, Ur RFX Oxycodone Class, MS, Ur RFX ToxAssure Flex 23, Ur Test Result Flag Units Drug Present Carboxy-THC 14 ng/mg creat Carboxy-THC is a metabolite of tetrahydrocannabinol (THC). Source of THC is most commonly herbal marijuana or marijuana-based products, but THC is also present in a scheduled prescription medication. Trace amounts of THC can be present in hemp and cannabidiol (CBD) products. This test is not intended to distinguish between abtrq-1-pxrxdhtxelrkufdurasm, the predominant form of THC in most herbal or marijuana-based products, and vsqai-8-llzmurghytyaxysunoby. Morphine 8076 ng/mg creat Normorphine 234 ng/mg creat Potential sources of large amounts of morphine in the absence of codeine include administration of morphine or use of heroin. Normorphine is an expected metabolite of morphine. Oxycodone 329 ng/mg creat Oxymorphone 459 ng/mg creat Noroxycodone 974 ng/mg creat Noroxymorphone 1060 ng/mg creat Sources of oxycodone are scheduled prescription medications. Oxymorphone, noroxycodone, and noroxymorphone are expected metabolites of oxycodone. Oxymorphone is also available as a scheduled prescription medication. Test Result Flag Units Ref Range Creatinine 58 mg/dL >=20 Declared Medications: Medication list was not provided. For clinical consultation, please call . Summary Report (Summary) Date Value Ref Range Status 11/22/2021 FINAL Final Comment: TOXASSURE COMP DRUG ANALYSIS,UR Test Result Flag Units Drug Present Carboxy-THC 15 ng/mg creat Carboxy-THC is a metabolite of tetrahydrocannabinol (THC). Source of THC is most commonly herbal marijuana or marijuana-based products, but THC is also present in a scheduled prescription medication. Trace amounts of THC can be present in hemp and cannabidiol (CBD) products. This test is not intended to distinguish between irxyv-2-hgvxxbeoyesyptuxydmr, the predominant form of THC in most herbal or marijuana-based products, and ppxgt-6-senxvtwwtxuxijcsdvgf. Morphine 1845 ng/mg creat Potential sources of large amounts of morphine in the absence of codeine include administration of morphine or use of heroin. Oxycodone 960 ng/mg creat Oxymorphone 359 ng/mg creat Noroxycodone 2246 ng/mg creat Noroxymorphone 622 ng/mg creat Sources of oxycodone are scheduled prescription medications. Oxymorphone, noroxycodone, and noroxymorphone are expected metabolites of oxycodone. Oxymorphone is also available as a scheduled prescription medication. Gabapentin PRESENT Lamotrigine PRESENT Quetiapine PRESENT Test Result Flag Units Ref Range Creatinine 134 mg/dL >=20 Declared Medications: Medication list was not provided. For clinical consultation, please call . Chronic Pain Functional Assessment Tools Pain Disability Index: Pain Disability Index 11/10/2022 11/10/2022 Family/Home Responsibilities 8 8 Recreation 8 8 Social Activity 8 8 Occupation 8 0 No disability Sexual Behavior 8 8 Self Care 8 8 Life Support Activity 8 8 PDI Score 56 48 Pain Enjoyment of Life and General Activity Scale (0-10): PEG: A Three-Item Scale Assessing Pain Intensity and Interference What number best describes your pain on average in the past week?: 8 (11/10/2022 7:00 AM) What number best describes how, during the past week, pain has interfered with your enjoyment of life?: 8 (11/10/2022 7:00 AM) What number best describes how, during the past week, pain has interfered with your general activity?: 8 (11/10/2022 7:00 AM) REVIEW OF SYSTEMS: GENERAL: No weight loss, malaise or fevers RESPIRATORY: Negative for cough, hemoptysis, wheezing, COPD, dyspnea or shortness of breath. CARDIOVASCULAR: Negative for chest pain, leg swelling, hypertension, CHF or palpitations GI: No nausea, vomiting, or diarrhea. MUSCULOSKELETAL: neck PAST MEDICAL HISTORY Diagnosis Date Abnormal EKG 04/23/2017 inf [place] age undetermined Adenomatous colon polyp Anxiety Chicken pox Colon polyps Depression ED (erectile dysfunction) Headache HTN (hypertension) Hypogonadism male 04/25/2010 Pulmonary embolism (HCC) Rectal bleed Shingles Shoulder pain pain management. PAST SURGICAL HISTORY Procedure Laterality Date COLONOSCOPY 06/09/2022 Tubular Adenoma COLONOSCOPY FLX DX W/COLLJ SPEC WHEN PFRMD age 40 Colonoscopy COLONOSCOPY FLX DX W/COLLJ SPEC WHEN PFRMD 06/04/2010 Colonoscopy COLONOSCOPY FLX DX W/COLLJ SPEC WHEN PFRMD 05/25/2018 Multiple Fragments of Tubular Adenoma, Diverticulosis COLONOSCOPY GEN ANES 06/27/2020 Two 4 to 7 mm polyps (adenomatous and hyperplastic ) COLSC FLX W/RMVL OF TUMOR POLYP LESION SNARE TQ 05/30/2016 adenomatous polyp - small - 5 year follow up ESOPHAGOGASTRODUODENOSCOPY TRANSORAL DIAGNOSTIC 05/25/2018 Duodenitis, Gastritis FOOT SURGERY HX Right ~ 2014 OPEN REPAIR OF ROTATOR CUFF ACUTE Right 10/2016 Rotator cuff repair - Dr. Santamaria RECONSTRUCTION ROTATOR CUFF AVULSION CHRONIC Left 03/21/2010 Dr. Stalin Clark RPR UMBILICAL HRNA 5 YRS/> REDUCIBLE 06/11/2016 simple SKIN GRAFT HX Right 1987 eyelid TONSILLECTOMY HX Childhood FAMILY HISTORY Problem Relation Age of Onset Diabetes Mother Hypertension Mother Arthritis Mother Breast Cancer Mother Dementia Mother Cancer Father throat Asthma No Family History Colon Cancer No Family History Social History Tobacco Use Smoking status: Never Smokeless tobacco: Never Vaping Use Vaping Use: Never used Substance Use Topics Alcohol use: Yes Alcohol/week: 15.0 standard drinks of alcohol Types: 6 Cans of Beer (12oz) per week Comment: 12 pack a week Drug use: Not Currently Comment: no longer using. Work Status: Retired 1 year ago Allergies: Bakari Inhibitors Cough Darvocet A500 [Prop* GI Upset Current Outpatient Medications Medication Sig peg 3350-Electrolytes (GOLYTELY) 236-22.74-6.74 -5.86 gram suspension oxyCODONE-acetaminophen (PERCOCET 10) 10-325 mg tablet lisinopril (ZESTRIL) 10 mg tablet FLUoxetine (PROZAC) 40 mg capsule morphine SR (MS CONTIN) 15 mg 12 hr tablet Take 1 tablet by mouth once daily as needed for pain for up to 30 days. for Pain Do not start before November 04, 2022. oxyCODONE (ROXICODONE) 15 mg immediate release tablet Take 1 tablet by mouth every 8 hours as needed for pain for up to 30 days. Do not start before November 04, 2022. methocarbamol (ROBAXIN-750) 750 mg tablet Take 1 tablet by mouth three times daily as needed. omeprazole (PRILOSEC) 20 mg capsule TAKE 1 CAPSULE BY MOUTH 30 MINUTES BEFORE BREAKFAST naloxone 4 mg/actuation nasal spray (NARCAN) diclofenac (VOLTAREN) 1 % topical gel Apply 4 g to affected area four times daily as needed (for pain). As Directed. losartan (COZAAR) 100 mg tablet Take 1 tablet by mouth once daily. triamterene-hydroCHLOROthiazide (MAXZIDE-25MG) 37.5-25 mg per tablet Take 1 tablet by mouth once daily. No current facility-administered medications for this visit. Facility-Administered Medications Ordered in Other Visits Medication Dose Route Frequency lidocaine (PF) 10 mg/mL (1 %) 1-2 mg injection (XYLOCAINE) 0.1-0.2 mL INTRADERMAL PRN lactated ringers iv infusion 30 mL/hr INTRAVENOUS CONTINUOUS PHYSICAL EXAMINATION: Vitals: BP 129/77 Pulse 51 Wt 185 lb 9.6 oz (84.2kg) SpO2 98% General appearance: Well appearing, in no acute distress, alert. Psych: Mood and affect appropriate. Skin: Skin color, texture, turgor normal, no rashes or lesions. Pulm: no conversational shortness of breath or cough GI: Abdomen soft and non-tender. Musculoskeletal: Cervical range of motion without restriction but complaints of tenderness with all motion. Negative cervical facet tenderness bilaterally. Negative Spurling sign bilaterally. Firm equal grasp bilaterally. 5/5 bilateral upper extremity muscle strength. ASSESSMENT: High risk medication use (primary encounter diagnosis) Cervicalgia Other cervical disc degeneration, unspecified cervical region Chronic pain syndrome Cervical radiculopathy Myofascial pain syndrome Patient is stable. Chronic pain is persistent. Medications are helping Gerald Staley to have an improved quality of life. Patient compliance with Opioid Contract: patient is compliant PDMP website checked and validated. OARRS report reviewed on November 10, 2022 by Deb Davis and is consistent with the patients medical history and medication intake. PLAN: The patient understands the goal of our treatment is a reduction in pain and/or an improved level of functioning with activities of daily living. If at any time the patient does not feel the medications are helping them to achieve these goals, the medications may be discontinued. The patient reports a reduction in pain and/or an improved level of functioning with activities of daily living, denies any significant adverse effects, is compliant with the pain management agreement and there are no signs of medication misuse, abuse or diversion; therefore, the medications will be continued. The documentation for this encounter was entered by Deb Davis, certified ophthalmic medical technician for Dr. Allie Ceballos on November 10, 2022 I, Dr. Allie Ceballos, personally performed the services described in this documentation. All medical record entries made by the scribe were at my direction and in my presence. I have reviewed the chart and discharge instructions and agree that the record reflects my personal performance and is accurate and complete. Electronically Signed: Dr. Ceballos. November 10, 2022. documented in this encounter [facility] 11-10-2022 Instructions Allie Ceballos DO - 11/10/2022 7:09 AM EDT Continue MS contin and oxycodone for btp. Continue Voltaren gel prn Encouraged to follow instructions of PCP and specialists Order PT for cervical spine pain. Once completed will order MRI Follow-up in 3 months with SYSTEM CONSULTANT Obtain UDS documented in this encounter [facility] 10-30-2022 Miscellaneous Notes The following approved medication requests have been transmitted electronically. Requested Prescriptions Signed Prescriptions Disp Refills morphine SR (MS CONTIN) 15 mg 12 hr tablet 30 tablet 0 Sig: Take 1 tablet by mouth once daily as needed for pain for up to 30 days. for Pain Do not start before November 04, 2022. Authorizing Provider: CINDY CRAMER oxyCODONE (ROXICODONE) 15 mg immediate release tablet 90 tablet 0 Sig: Take 1 tablet by mouth every 8 hours as needed for pain for up to 30 days. Do not start before November 04, 2022. Authorizing Provider: CINDY CRAMER methocarbamol (ROBAXIN-750) 750 mg tablet 90 tablet 0 Sig: Take 1 tablet by mouth three times daily as needed. Authorizing Provider: CINDY CRAMER APRN.CNP Patient phones requesting refills as follows: Requested Prescriptions Pending Prescriptions Disp Refills morphine SR (MS CONTIN) 15 mg 12 hr tablet 30 tablet 0 Sig: Take 1 tablet by mouth once daily as needed for pain for up to 30 days. for Pain oxyCODONE (ROXICODONE) 15 mg immediate release tablet 90 tablet 0 Sig: Take 1 tablet by mouth every 8 hours as needed for pain for up to 30 days. methocarbamol (ROBAXIN-750) 750 mg tablet 90 tablet 0 Sig: Take 1 tablet by mouth three times daily as needed. Last UDS: Summary Report Date Value Ref Range Status 04/28/2022 FINAL Final Comment: Cannabinoids, MS, Ur RFX Opiate Class, MS, Ur RFX Oxycodone Class, MS, Ur RFX ToxAssure Flex 23, Ur Test Result Flag Units Drug Present Carboxy-THC 14 ng/mg creat Carboxy-THC is a metabolite of tetrahydrocannabinol (THC). Source of THC is most commonly herbal marijuana or marijuana-based products, but THC is also present in a scheduled prescription medication. Trace amounts of THC can be present in hemp and cannabidiol (CBD) products. This test is not intended to distinguish between vrofo-0-yzogugfcofvyrfyrwibw, the predominant form of THC in most herbal or marijuana-based products, and zyqja-6-jcgtriwekpjrjoiorumc. Morphine 8076 ng/mg creat Normorphine 234 ng/mg creat Potential sources of large amounts of morphine in the absence of codeine include administration of morphine or use of heroin. Normorphine is an expected metabolite of morphine. Oxycodone 329 ng/mg creat Oxymorphone 459 ng/mg creat Noroxycodone 974 ng/mg creat Noroxymorphone 1060 ng/mg creat Sources of oxycodone are scheduled prescription medications. Oxymorphone, noroxycodone, and noroxymorphone are expected metabolites of oxycodone. Oxymorphone is also available as a scheduled prescription medication. Test Result Flag Units Ref Range Creatinine 58 mg/dL >=20 Declared Medications: Medication list was not provided. For clinical consultation, please call . @FLOW([id number])@ Lab Results Component Value Date SUMM FINAL 04/28/2022 Summary Report (Summary) Date Value Ref Range Status 11/22/2021 FINAL Final Comment: TOXASSURE COMP DRUG ANALYSIS,UR Test Result Flag Units Drug Present Carboxy-THC 15 ng/mg creat Carboxy-THC is a metabolite of tetrahydrocannabinol (THC). Source of THC is most commonly herbal marijuana or marijuana-based products, but THC is also present in a scheduled prescription medication. Trace amounts of THC can be present in hemp and cannabidiol (CBD) products. This test is not intended to distinguish between ylcoi-0-ewefmgynfzufiqcsjoxc, the predominant form of THC in most herbal or marijuana-based products, and kyxge-7-fiabymknujyuteioiutx. Morphine 1845 ng/mg creat Potential sources of large amounts of morphine in the absence of codeine include administration of morphine or use of heroin. Oxycodone 960 ng/mg creat Oxymorphone 359 ng/mg creat Noroxycodone 2246 ng/mg creat Noroxymorphone 622 ng/mg creat Sources of oxycodone are scheduled prescription medications. Oxymorphone, noroxycodone, and noroxymorphone are expected metabolites of oxycodone. Oxymorphone is also available as a scheduled prescription medication. Gabapentin PRESENT Lamotrigine PRESENT Quetiapine PRESENT Test Result Flag Units Ref Range Creatinine 134 mg/dL >=20 Declared Medications: Medication list was not provided. For clinical consultation, please call . Please review and advise. Ileana Roa RN documented in this encounter [facility] 10-27-2022 Miscellaneous Notes Summary: Appointment LVM patient to call to get rescheduled for appointment on 11/04/2022. documented in this encounter [facility] 09-30-2022 Miscellaneous Notes The following approved medication requests have been transmitted electronically. Requested Prescriptions Signed Prescriptions Disp Refills morphine SR (MS CONTIN) 15 mg 12 hr tablet 30 tablet 0 Sig: Take 1 tablet by mouth once daily as needed for pain for up to 30 days. for Pain Do not start before October 05, 2022. Authorizing Provider: ANNA FOLEY oxyCODONE (ROXICODONE) 15 mg immediate release tablet 90 tablet 0 Sig: Take 1 tablet by mouth every 8 hours as needed for pain for up to 30 days. Do not start before October 05, 2022. Authorizing Provider: ANNA FOLEY methocarbamol (ROBAXIN-750) 750 mg tablet 90 tablet 0 Sig: Take 1 tablet by mouth three times daily as needed. Authorizing Provider: ANNA FOLEY APRN.TWISTING FRAME CHANGER Patient phones requesting refills as follows: Requested Prescriptions Pending Prescriptions Disp Refills morphine SR (MS CONTIN) 15 mg 12 hr tablet 30 tablet 0 Sig: Take 1 tablet by mouth once daily as needed for pain for up to 30 days. for Pain oxyCODONE (ROXICODONE) 15 mg immediate release tablet 90 tablet 0 Sig: Take 1 tablet by mouth every 8 hours as needed for pain for up to 30 days. methocarbamol (ROBAXIN-750) 750 mg tablet 90 tablet 0 Sig: Take 1 tablet by mouth three times daily as needed. Last UDS: Summary Report Date Value Ref Range Status 04/28/2022 FINAL Final Comment: Cannabinoids, MS, Ur RFX Opiate Class, MS, Ur RFX Oxycodone Class, MS, Ur RFX ToxAssure Flex 23, Ur Test Result Flag Units Drug Present Carboxy-THC 14 ng/mg creat Carboxy-THC is a metabolite of tetrahydrocannabinol (THC). Source of THC is most commonly herbal marijuana or marijuana-based products, but THC is also present in a scheduled prescription medication. Trace amounts of THC can be present in hemp and cannabidiol (CBD) products. This test is not intended to distinguish between foptn-6-foflfpuzgdjzbsbiwkko, the predominant form of THC in most herbal or marijuana-based products, and zvvuw-8-cpsnxmkkbtsbmyynpmmq. Morphine 8076 ng/mg creat Normorphine 234 ng/mg creat Potential sources of large amounts of morphine in the absence of codeine include administration of morphine or use of heroin. Normorphine is an expected metabolite of morphine. Oxycodone 329 ng/mg creat Oxymorphone 459 ng/mg creat Noroxycodone 974 ng/mg creat Noroxymorphone 1060 ng/mg creat Sources of oxycodone are scheduled prescription medications. Oxymorphone, noroxycodone, and noroxymorphone are expected metabolites of oxycodone. Oxymorphone is also available as a scheduled prescription medication. Test Result Flag Units Ref Range Creatinine 58 mg/dL >=20 Declared Medications: Medication list was not provided. For clinical consultation, please call . @FLOW([id number])@ Lab Results Component Value Date SUMM FINAL 04/28/2022 Summary Report (Summary) Date Value Ref Range Status 11/22/2021 FINAL Final Comment: TOXASSURE COMP DRUG ANALYSIS,UR Test Result Flag Units Drug Present Carboxy-THC 15 ng/mg creat Carboxy-THC is a metabolite of tetrahydrocannabinol (THC). Source of THC is most commonly herbal marijuana or marijuana-based products, but THC is also present in a scheduled prescription medication. Trace amounts of THC can be present in hemp and cannabidiol (CBD) products. This test is not intended to distinguish between eejbk-1-yhjaxqvzowlptdyodaix, the predominant form of THC in most herbal or marijuana-based products, and dsdpd-3-nziizmiipcppfvjctael. Morphine 1845 ng/mg creat Potential sources of large amounts of morphine in the absence of codeine include administration of morphine or use of heroin. Oxycodone 960 ng/mg creat Oxymorphone 359 ng/mg creat Noroxycodone 2246 ng/mg creat Noroxymorphone 622 ng/mg creat Sources of oxycodone are scheduled prescription medications. Oxymorphone, noroxycodone, and noroxymorphone are expected metabolites of oxycodone. Oxymorphone is also available as a scheduled prescription medication. Gabapentin PRESENT Lamotrigine PRESENT Quetiapine PRESENT Test Result Flag Units Ref Range Creatinine 134 mg/dL >=20 Declared Medications: Medication list was not provided. For clinical consultation, please call . Please review and advise. Lyla Babb RN documented in this encounter [facility] 09-01-2022 Miscellaneous Notes The following approved medication requests have been transmitted electronically. Requested Prescriptions Signed Prescriptions Disp Refills morphine SR (MS CONTIN) 15 mg 12 hr tablet 30 tablet 0 Sig: Take 1 tablet by mouth once daily as needed for pain for up to 30 days. for Pain Do not start before September 05, 2022. Authorizing Provider: ANNA FOLEY oxyCODONE (ROXICODONE) 15 mg immediate release tablet 90 tablet 0 Sig: Take 1 tablet by mouth every 8 hours as needed for pain for up to 30 days. Do not start before September 05, 2022. Authorizing Provider: ANNA FOLEY methocarbamol (ROBAXIN-750) 750 mg tablet 90 tablet 0 Sig: Take 1 tablet by mouth three times daily as needed. Authorizing Provider: ANNA FOLEY APRN.TWISTING FRAME CHANGER Patient phones requesting refills as follows: Requested Prescriptions Pending Prescriptions Disp Refills morphine SR (MS CONTIN) 15 mg 12 hr tablet 30 tablet 0 Sig: Take 1 tablet by mouth once daily as needed for pain for up to 30 days. for Pain oxyCODONE (ROXICODONE) 15 mg immediate release tablet 90 tablet 0 Sig: Take 1 tablet by mouth every 8 hours as needed for pain for up to 30 days. methocarbamol (ROBAXIN-750) 750 mg tablet 90 tablet 0 Sig: Take 1 tablet by mouth three times daily as needed. Last UDS: Summary Report Date Value Ref Range Status 04/28/2022 FINAL Final Comment: Cannabinoids, MS, Ur RFX Opiate Class, MS, Ur RFX Oxycodone Class, MS, Ur RFX ToxAssure Flex 23, Ur Test Result Flag Units Drug Present Carboxy-THC 14 ng/mg creat Carboxy-THC is a metabolite of tetrahydrocannabinol (THC). Source of THC is most commonly herbal marijuana or marijuana-based products, but THC is also present in a scheduled prescription medication. Trace amounts of THC can be present in hemp and cannabidiol (CBD) products. This test is not intended to distinguish between iggje-0-xfbknjxshcigsddhmzzz, the predominant form of THC in most herbal or marijuana-based products, and qvujp-3-xemavaqianqhqeywiytx. Morphine 8076 ng/mg creat Normorphine 234 ng/mg creat Potential sources of large amounts of morphine in the absence of codeine include administration of morphine or use of heroin. Normorphine is an expected metabolite of morphine. Oxycodone 329 ng/mg creat Oxymorphone 459 ng/mg creat Noroxycodone 974 ng/mg creat Noroxymorphone 1060 ng/mg creat Sources of oxycodone are scheduled prescription medications. Oxymorphone, noroxycodone, and noroxymorphone are expected metabolites of oxycodone. Oxymorphone is also available as a scheduled prescription medication. Test Result Flag Units Ref Range Creatinine 58 mg/dL >=20 Declared Medications: Medication list was not provided. For clinical consultation, please call . @FLOW([id number])@ Lab Results Component Value Date SUMM FINAL 04/28/2022 Summary Report (Summary) Date Value Ref Range Status 11/22/2021 FINAL Final Comment: TOXASSURE COMP DRUG ANALYSIS,UR Test Result Flag Units Drug Present Carboxy-THC 15 ng/mg creat Carboxy-THC is a metabolite of tetrahydrocannabinol (THC). Source of THC is most commonly herbal marijuana or marijuana-based products, but THC is also present in a scheduled prescription medication. Trace amounts of THC can be present in hemp and cannabidiol (CBD) products. This test is not intended to distinguish between xiwug-6-pwqdlesqykwfiecwrodj, the predominant form of THC in most herbal or marijuana-based products, and xqnjs-9-lbaffijliktknbrzyelc. Morphine 1845 ng/mg creat Potential sources of large amounts of morphine in the absence of codeine include administration of morphine or use of heroin. Oxycodone 960 ng/mg creat Oxymorphone 359 ng/mg creat Noroxycodone 2246 ng/mg creat Noroxymorphone 622 ng/mg creat Sources of oxycodone are scheduled prescription medications. Oxymorphone, noroxycodone, and noroxymorphone are expected metabolites of oxycodone. Oxymorphone is also available as a scheduled prescription medication. Gabapentin PRESENT Lamotrigine PRESENT Quetiapine PRESENT Test Result Flag Units Ref Range Creatinine 134 mg/dL >=20 Declared Medications: Medication list was not provided. For clinical consultation, please call . Please review and advise. Lyla Babb RN documented in this encounter [facility] 08-12-2022 Note HNO ID: [id number] Author: Chad Etienne MD Service: ? Author Type: Physician Type: Progress Notes Filed: 08/12/2022 9:43 AM Note Text: HISTORY AND PHYSICAL Gerald Man Doyle 1960 REFERRING PHYSICIAN: Kevin Cary MD CHIEF COMPLAINT: Consult (hemorrhoids) HPI: The patient is a 62 year old male with a complaint of painful rectal bleeding. Patient recently had a colonoscopy 06/09/2022. He was noted to have some internal and external hemorrhoids. States that sometimes they are popping out but since the colonoscopy nothing is been popping out and he went through a period where he had no rectal bleeding he pretty much has pain in the perianal area all the time though and it hurts sometimes when he has bowel movements other times it does not. States that he has tried suppositories in the past that really has not done a lot to curtail the bleeding. . The patient is being seen by me today at the request of Dr. Kevin Cary MD for my opinion and advice regarding Rectal bleeding (primary encounter diagnosis) Pruritus ani . PAST MEDICAL HISTORY Diagnosis Date Abnormal EKG 04/23/2017 inf [place] age undetermined Adenomatous colon polyp Anxiety Chicken pox Colon polyps Depression ED (erectile dysfunction) Headache HTN (hypertension) Hypogonadism male 04/25/2010 Pulmonary embolism (HCC) Rectal bleed Shingles Shoulder pain pain management. PAST SURGICAL HISTORY Procedure Laterality Date COLONOSCOPY 06/09/2022 Tubular Adenoma COLONOSCOPY FLX DX W/COLLJ SPEC WHEN PFRMD age 40 Colonoscopy COLONOSCOPY FLX DX W/COLLJ SPEC WHEN PFRMD 06/04/2010 Colonoscopy COLONOSCOPY FLX DX W/COLLJ SPEC WHEN PFRMD 05/25/2018 Multiple Fragments of Tubular Adenoma, Diverticulosis COLONOSCOPY GEN ANES 06/27/2020 Two 4 to 7 mm polyps (adenomatous and hyperplastic ) COLSC FLX W/RMVL OF TUMOR POLYP LESION SNARE TQ 05/30/2016 adenomatous polyp - small - 5 year follow up ESOPHAGOGASTRODUODENOSCOPY TRANSORAL DIAGNOSTIC 05/25/2018 Duodenitis, Gastritis FOOT SURGERY HX Right ~ 2014 OPEN REPAIR OF ROTATOR CUFF ACUTE Right 10/2016 Rotator cuff repair - Dr. Santamaria RECONSTRUCTION ROTATOR CUFF AVULSION CHRONIC Left 03/21/2010 Dr. Stalin Clark [facility] UMBILICAL HRNA 5 YRS/> REDUCIBLE 06/11/2016 simple SKIN GRAFT HX Right 1987 eyelid TONSILLECTOMY HX Childhood Current Outpatient Medications Medication Sig omeprazole (PRILOSEC) 20 mg capsule TAKE 1 CAPSULE BY MOUTH 30 MINUTES BEFORE BREAKFAST morphine SR (MS CONTIN) 15 mg 12 hr tablet Take 1 tablet by mouth once daily as needed for pain for up to 30 days. for Pain Do not start before August 06, 2022. oxyCODONE (ROXICODONE) 15 mg immediate release tablet Take 1 tablet by mouth every 8 hours as needed for pain for up to 30 days. Do not start before August 06, 2022. diclofenac (VOLTAREN) 1 % topical gel Apply 4 g to affected area four times daily as needed (for pain). As Directed. methocarbamol (ROBAXIN-750) 750 mg tablet Take 1 tablet by mouth three times daily as needed. losartan (COZAAR) 100 mg tablet Take 1 tablet by mouth once daily. triamterene-hydroCHLOROthiazide (MAXZIDE-25MG) 37.5-25 mg per tablet Take 1 tablet by mouth once daily. naloxone 4 mg/actuation nasal spray (NARCAN) Current Facility-Administered Medications Medication Dose Route Frequency perflutren lipid microspheres 1.3 mL in NaCl (PF) 0.9% 10 mL injection (DEFINITY) INTRAVENOUS DIRECTED PRN sodium chloride 0.9 % (flush) 10 mL (BD POSIFLUSH) 10 mL INTRAVENOUS DIRECTED PRN Facility-Administered Medications Ordered in Other Visits Medication Dose Route Frequency lidocaine (PF) 10 mg/mL (1 %) 1-2 mg injection (XYLOCAINE) 0.1-0.2 mL INTRADERMAL PRN lactated ringers iv infusion 30 mL/hr INTRAVENOUS CONTINUOUS ALLERGIES: Bakari Inhibitors and Darvocet A500 [Propoxyphene N-Acetaminophen] PERSONAL HISTORY: Social History Tobacco Use Smoking status: Never Smokeless tobacco: Never Vaping Use Vaping Use: Never used Substance Use Topics Alcohol use: Yes Alcohol/week: 15.0 standard drinks Types: 6 Cans of Beer (12oz) per week Comment: 12 pack a week Drug use: Not Currently Comment: no longer using. FAMILY HISTORY: FAMILY HISTORY Problem Relation Age of Onset Diabetes Mother Hypertension Mother Arthritis Mother Breast Cancer Mother Dementia Mother Cancer Father throat Asthma No Family History Colon Cancer No Family History REVIEW OF SYMPTOMS: The review of systems data was entered by the nurse and reviewed by me Nursing Notes: Vy QuigleyGORGE 08/12/2022 9:02 AM Signed REVIEW OF SYSTEMS: General: The patient denies fatigue, denies weight loss, notes weight gain, denies feeling hot, and denies feelings of cold. Eyes: The patient denies glaucoma, denies eye injury/surgery, wears glasses or contacts. Ear/Nose/Throat: The patient notes allergies, denies hayfever, denies ear infections, and de (more content not included)... [facility] 08-12-2022 History of Present illness Narrative HISTORY AND PHYSICAL Gerald Man Doyle 1960 REFERRING PHYSICIAN: Kevin Cary MD CHIEF COMPLAINT: Consult (hemorrhoids) HPI: The patient is a 62 year old male with a complaint of painful rectal bleeding. Patient recently had a colonoscopy 06/09/2022. He was noted to have some internal and external hemorrhoids. States that sometimes they are popping out but since the colonoscopy nothing is been popping out and he went through a period where he had no rectal bleeding he pretty much has pain in the perianal area all the time though and it hurts sometimes when he has bowel movements other times it does not. States that he has tried suppositories in the past that really has not done a lot to curtail the bleeding. . The patient is being seen by me today at the request of Dr. Kevin Cary MD for my opinion and advice regarding Rectal bleeding (primary encounter diagnosis) Pruritus ani . PAST MEDICAL HISTORY Diagnosis Date Abnormal EKG 04/23/2017 inf [place] age undetermined Adenomatous colon polyp Anxiety Chicken pox Colon polyps Depression ED (erectile dysfunction) Headache HTN (hypertension) Hypogonadism male 04/25/2010 Pulmonary embolism (HCC) Rectal bleed Shingles Shoulder pain pain management. PAST SURGICAL HISTORY Procedure Laterality Date COLONOSCOPY 06/09/2022 Tubular Adenoma COLONOSCOPY FLX DX W/COLLJ SPEC WHEN PFRMD age 40 Colonoscopy COLONOSCOPY FLX DX W/COLLJ SPEC WHEN PFRMD 06/04/2010 Colonoscopy COLONOSCOPY FLX DX W/COLLJ SPEC WHEN PFRMD 05/25/2018 Multiple Fragments of Tubular Adenoma, Diverticulosis COLONOSCOPY GEN ANES 06/27/2020 Two 4 to 7 mm polyps (adenomatous and hyperplastic ) COLSC FLX W/RMVL OF TUMOR POLYP LESION SNARE TQ 05/30/2016 adenomatous polyp - small - 5 year follow up ESOPHAGOGASTRODUODENOSCOPY TRANSORAL DIAGNOSTIC 05/25/2018 Duodenitis, Gastritis FOOT SURGERY HX Right ~ 2014 OPEN REPAIR OF ROTATOR CUFF ACUTE Right 10/2016 Rotator cuff repair - Dr. Santamaria RECONSTRUCTION ROTATOR CUFF AVULSION CHRONIC Left 03/21/2010 Dr. Stalin Clark [facility]PR UMBILICAL HRNA 5 YRS/> REDUCIBLE 06/11/2016 simple SKIN GRAFT HX Right 1987 eyelid TONSILLECTOMY HX Childhood Current Outpatient Medications Medication Sig omeprazole (PRILOSEC) 20 mg capsule TAKE 1 CAPSULE BY MOUTH 30 MINUTES BEFORE BREAKFAST morphine SR (MS CONTIN) 15 mg 12 hr tablet Take 1 tablet by mouth once daily as needed for pain for up to 30 days. for Pain Do not start before August 06, 2022. oxyCODONE (ROXICODONE) 15 mg immediate release tablet Take 1 tablet by mouth every 8 hours as needed for pain for up to 30 days. Do not start before August 06, 2022. diclofenac (VOLTAREN) 1 % topical gel Apply 4 g to affected area four times daily as needed (for pain). As Directed. methocarbamol (ROBAXIN-750) 750 mg tablet Take 1 tablet by mouth three times daily as needed. losartan (COZAAR) 100 mg tablet Take 1 tablet by mouth once daily. triamterene-hydroCHLOROthiazide (MAXZIDE-25MG) 37.5-25 mg per tablet Take 1 tablet by mouth once daily. naloxone 4 mg/actuation nasal spray (NARCAN) Current Facility-Administered Medications Medication Dose Route Frequency perflutren lipid microspheres 1.3 mL in NaCl (PF) 0.9% 10 mL injection (DEFINITY) INTRAVENOUS DIRECTED PRN sodium chloride 0.9 % (flush) 10 mL (BD POSIFLUSH) 10 mL INTRAVENOUS DIRECTED PRN Facility-Administered Medications Ordered in Other Visits Medication Dose Route Frequency lidocaine (PF) 10 mg/mL (1 %) 1-2 mg injection (XYLOCAINE) 0.1-0.2 mL INTRADERMAL PRN lactated ringers iv infusion 30 mL/hr INTRAVENOUS CONTINUOUS ALLERGIES: Bakari Inhibitors and Darvocet A500 [Propoxyphene N-Acetaminophen] PERSONAL HISTORY: Social History Tobacco Use Smoking status: Never Smokeless tobacco: Never Vaping Use Vaping Use: Never used Substance Use Topics Alcohol use: Yes Alcohol/week: 15.0 standard drinks Types: 6 Cans of Beer (12oz) per week Comment: 12 pack a week Drug use: Not Currently Comment: no longer using. FAMILY HISTORY: FAMILY HISTORY Problem Relation Age of Onset Diabetes Mother Hypertension Mother Arthritis Mother Breast Cancer Mother Dementia Mother Cancer Father throat Asthma No Family History Colon Cancer No Family History REVIEW OF SYMPTOMS: The review of systems data was entered by the nurse and reviewed by me Nursing Notes: Vy Quigley LPN 08/12/2022 9:02 AM Signed REVIEW OF SYSTEMS: General: The patient denies fatigue, denies weight loss, notes weight gain, denies feeling hot, and denies feelings of cold. Eyes: The patient denies glaucoma, denies eye injury/surgery, wears glasses or contacts. Ear/Nose/Throat: The patient notes allergies, denies hayfever, denies ear infections, and denies bloody noses. Cardiovascular: The patient denies chest pain, denies heart disease, notes high blood pressure,denies cardiac stent, denies prior heart attack, denies irregular heart beat, denies high cholesterol, denies poor circulation, denies heart failure, other cardiac issues, denies claudication, denies cold feet, denies peripheral arterial stent. Respiratory: The patient denies tuberculosis, denies pneumonia, denies frequent cough, notes pulmonary embolism, denies shortness of breath, and denies coughing up blood. Gastrointestinal: The patient denies difficulty swallowing, denies acid reflux, denies ulcers, denies vomiting, denies jaundice/hepatitis, denies gallbladder problems, denies black or tarry stools, denies hemorrhoids, denies bleeding from rectum, denies diverticulitis, denies constipation, denies diarrhea, denies loss of stool control, and denies hernias. Kidney/Bladder: The patient denies kidney stones, denies urine infections, and denies bloody urine. Skin: The patient denies a history of skin cancer, denies bleeding/changing moles, and denies a history of skin rash. Neurologic: The patient denies a history of epilepsy/convulsions, denies headaches, denies head/spinal injuries, and denies stroke/TIA. Psychiatric: The patient denies psychiatric medications, denies depression, and denies voices, denies substance abuse. Endocrine: The patient denies thyroid disorders, denies diabetes, and denies hormonal problems. Hematologic: The patient denies a history of bruising, denies bleeding, and denies anemia, denies blood clots. Infections: The patient denies a history of measles and mumps, denies rheumatic fever, and denies sexually transmitted diseases. Musculoskeletal: The patient denies back pain/injury, denies back problems, denies sciatica, denies knee/foot trouble, denies arthritis, or denies gout. When was patient's last Mammogram screening? N/A Last Colonoscopy: 06/2022 Vy Quigley LPN PHYSICAL EXAMINATION: General: The patient is 62 year old male, well nourished, well hydrated in no acute distress. The patient is oriented to time, place, and person. VITALS: Blood pressure 110/64, pulse (!) 57, temperature 36.3 C (97.3 F), height 167.6 cm (5' 6 ), weight 88.9 kg (196 lb), SpO2 98 %. Rectal exam: Patient has notable external hemorrhoids mostly on the left lateral side. He complains of tenderness when you touch but the overlying skin and the hemorrhoids themselves look normal there is no excoriation I could not identify the fissures. And there is no palpable abnormalities within the anus itself. Extremities: no clubbing, cyanosis or edema. No adenopathy. Assessment IMPRESSION: Rectal bleeding (primary encounter diagnosis) Pruritus ani PLAN: I [place] start him on some Anusol HC suppositories. And see if this helps at all with the rectal bleeding. With regards to his pruritus ani I think he should be doing warm soaks and Epsom salts at least nightly to see how this is going to help or not. I think after we do a test of the suppositories I should get him to my partner to have a hemorrhoidal banding done Diagnoses: (K62.5) Rectal bleeding (primary encounter diagnosis) (L29.0) Pruritus ani My findings have been communicated to Dr. Kevin Cary MD via shared medical record. This note will be forwarded to Dr. Kevin Cary MD. Return to Clinic: The patient is instructed to follow-up with me in 1 month. Chad Etienne III, MD documented in this encounter [facility] 08-12-2022 Nurse Note REVIEW OF SYSTEMS: General: The patient denies fatigue, denies weight loss, notes weight gain, denies feeling hot, and denies feelings of cold. Eyes: The patient denies glaucoma, denies eye injury/surgery, wears glasses or contacts. Ear/Nose/Throat: The patient notes allergies, denies hayfever, denies ear infections, and denies bloody noses. Cardiovascular: The patient denies chest pain, denies heart disease, notes high blood pressure,denies cardiac stent, denies prior heart attack, denies irregular heart beat, denies high cholesterol, denies poor circulation, denies heart failure, other cardiac issues, denies claudication, denies cold feet, denies peripheral arterial stent. Respiratory: The patient denies tuberculosis, denies pneumonia, denies frequent cough, notes pulmonary embolism, denies shortness of breath, and denies coughing up blood. Gastrointestinal: The patient denies difficulty swallowing, denies acid reflux, denies ulcers, denies vomiting, denies jaundice/hepatitis, denies gallbladder problems, denies black or tarry stools, denies hemorrhoids, denies bleeding from rectum, denies diverticulitis, denies constipation, denies diarrhea, denies loss of stool control, and denies hernias. Kidney/Bladder: The patient denies kidney stones, denies urine infections, and denies bloody urine. Skin: The patient denies a history of skin cancer, denies bleeding/changing moles, and denies a history of skin rash. Neurologic: The patient denies a history of epilepsy/convulsions, denies headaches, denies head/spinal injuries, and denies stroke/TIA. Psychiatric: The patient denies psychiatric medications, denies depression, and denies voices, denies substance abuse. Endocrine: The patient denies thyroid disorders, denies diabetes, and denies hormonal problems. Hematologic: The patient denies a history of bruising, denies bleeding, and denies anemia, denies blood clots. Infections: The patient denies a history of measles and mumps, denies rheumatic fever, and denies sexually transmitted diseases. Musculoskeletal: The patient denies back pain/injury, denies back problems, denies sciatica, denies knee/foot trouble, denies arthritis, or denies gout. When was patient's last Mammogram screening? N/A Last Colonoscopy: 06/2022 Vy Quigley LPN documented in this encounter [facility] 08-04-2022 Note HNO ID: [id number] Author: Anna Foley APRN.TWISTING FRAME CHANGER Service: ? Author Type: Clinical Nurse Specialist Type: Progress Notes Filed: 08/04/2022 4:14 PM Note Text: SUBJECTIVE: Gerald Staley presents to [facility] Pain Management Department for a follow-up appointment for neck pain Last seen by me on 04/28/22 with following plan of care: Continue MS contin and oxycodone. This helps patient perform ADL, interact with family and friends. OARRS reviewedd and consistent. UDS +THC but uses CBD Order UDS Continue lidocaine-prilocaine cream Encouraged to follow instructions of PCP and specialists Encouraged to start PT for cervical spine pain to order MRI Order cervical spine xray Followup in 3 months Pain level:7/10 Denies ED visits or hospitalizations since last office visit Reports pain worse with using left shoulder Reports pain better with rest and medications Describes pain in neck as constant ache Describes pain in both shoulders greater on right Denies numbness/tingling Denies falls REVIEW OF SYSTEMS: GENERAL: No weight loss, malaise or fevers. HEENT: Negative for frequent or significant headaches. RESPIRATORY: Negative for cough, wheezing or shortness of breath. CARDIOVASCULAR: Negative for chest pain, leg swelling or palpitations. GI: Negative for abdominal discomfort, blood in stools or black stools or change in bowel habits. Gu:denies issues Past Medical History: PAST MEDICAL HISTORY Diagnosis Date Abnormal EKG 04/23/2017 inf [place] age undetermined Adenomatous colon polyp Anxiety Chicken pox Colon polyps Depression ED (erectile dysfunction) Headache HTN (hypertension) Hypogonadism male 04/25/2010 Pulmonary embolism (HCC) Rectal bleed Shingles Shoulder pain pain management. Past Surgical History: PAST SURGICAL HISTORY Procedure Laterality Date COLONOSCOPY 06/09/2022 Tubular Adenoma COLONOSCOPY FLX DX W/COLLJ SPEC WHEN PFRMD age 40 Colonoscopy COLONOSCOPY FLX DX W/COLLJ SPEC WHEN PFRMD 06/04/2010 Colonoscopy COLONOSCOPY FLX DX W/COLLJ SPEC WHEN PFRMD 05/25/2018 Multiple Fragments of Tubular Adenoma, Diverticulosis COLONOSCOPY GEN ANES 06/27/2020 Two 4 to 7 mm polyps (adenomatous and hyperplastic ) COLSC FLX W/RMVL OF TUMOR POLYP LESION SNARE TQ 05/30/2016 adenomatous polyp - small - 5 year follow up ESOPHAGOGASTRODUODENOSCOPY TRANSORAL DIAGNOSTIC 05/25/2018 Duodenitis, Gastritis FOOT SURGERY HX Right ~ 2014 OPEN REPAIR OF ROTATOR CUFF ACUTE Right 10/2016 Rotator cuff repair - Dr. Santamaria RECONSTRUCTION ROTATOR CUFF AVULSION CHRONIC Left 03/21/2010 Dr. Stalin Clark RPR UMBILICAL HRNA 5 YRS/> REDUCIBLE 06/11/2016 simple SKIN GRAFT HX Right 1987 eyelid TONSILLECTOMY HX Childhood Family History: FAMILY HISTORY Problem Relation Age of Onset Diabetes Mother Hypertension Mother Arthritis Mother Breast Cancer Mother Dementia Mother Cancer Father throat Asthma No Family History Colon Cancer No Family History Social History: Social History Tobacco Use Smoking status: Never Smokeless tobacco: Never Vaping Use Vaping Use: Never used Substance Use Topics Alcohol use: Yes Alcohol/week: 15.0 standard drinks Types: 6 Cans of Beer (12oz) per week Comment: 12 pack a week Drug use: Not Currently Comment: no longer using. OBJECTIVE: BP 118/82 Pulse 55 Wt 196 lb (88.9kg) SpO2 97% PHYSICAL EXAMINATION: General appearance: Well appearing, in no acute distress, alert. Psych: Mood and affect appropriate. Skin: Skin color, texture, turgor normal, no rashes or lesions. Pulm: no conversational shortness of breath or cough GI: Abdomen soft and non-tender. Musculoskeletal: Cervical range of motion without restriction but complaints of tenderness with all motion. Negative cervical facet tenderness bilaterally. Negative Spurling sign bilaterally. Firm equal grasp bilaterally. 5/5 bilateral upper extremity muscle strength. ASSESSMENT: (Z79.899) High risk medication use (primary encounter diagnosis) (M54.2) Cervicalgia (M50.30) Other cervical disc degeneration, unspecified cervical region (G89.4) Chronic pain syndrome (M54.12) Cervical radiculopathy PLAN: Continue MS contin and oxycodone for btp This helps patient perform ADL, interact with family and friends. OARRS reviewedd and consistent. UDS +THC but uses CBD Change lidocaine prilocaine cream to volatren gel Encouraged to follow instructions of PCP and specialists Encouraged to start PT for cervical spine pain to order MRI call [phone] Encouraged to complete cervical spine xray Followup in 3 months The above plan and management options were discussed at length with the patient. The patient is in agreement with the above and verbalized understanding. Anna Foley APRN.TWISTING FRAME CHANGER August 04, 2022 [facility] 07-21-2022 Note HNO ID: [id number] Author: Heather Patel [facility] Service: ? Author Type: Speech Language Pathologist Type: Progress Notes Filed: 07/21/2022 3:33 PM Note Text: 07/21/[address] [facility] SPEECH DISCONTINUANCE OF CARE Plan of Care Period: Last Visit Date: 06/02/2022 Therapy Program: The following is a summary of the interventions provided for this episode of care; Evaluation of cognitive-linguistic skills; -Educated and instructed patient on compensatory strategies for word-finding and sequencing -Educated and instructed patient on memory recall strategies such as focused attention, verbal repetition, visualization, association, and graphic skills. -memory strategies, word recall; uitlize written/visual aids for recall of events Assessment: The following is the goal status: Goals for Episode of Care: created on 05/06/2022 through 07/05/22 COGNITIVE GOALS Met- Improve categorical naming tasks at a concrete and abstract level with 80% accuracy given minimal assist. Not Met-Complete verbal/visual reasoning/organization tasks with 85% accuracy given consistent assist. Not Met-Improve working memory to WFL during simple cognitive tasks with 90% using compensatory strategies in order to recall the steps taken during a cognitive process. All goals to target the patient's overall ability to facilitate functional cognitive linguistic skills. Based on most recent progress report, patient was progressing as expected toward functional goals based on documented subjective information on progress; patient and reports. Reason for Discontinuation of Care: Patient has not returned to therapy or scheduled additional follow-up appointments. -The Speech-Language Pathology department remains available for further consultation as deemed warranted and/or indicated by the referring physician. Heather Patel, [facility] 07-04-2022 Note HNO ID: [id number] Author: Remington Saucedo MD Service: ? Author Type: Physician Type: Progress Notes Filed: 07/06/2022 10:44 PM Note Text: 07/04/2022 Interval history Office Visit on 07/04/22 CONSULT TO NEUROLOGY Memory impairment He discontinued antipschotic and mood stabilizer He said he feels fine ,not needing these medications. For few months he gets headache in the middle of the day Worse with stress Head trauma ,was getting headache with migrainous features after head trauma ,then went away For the last 6 months headache intermittently No nausea photophobia Tylenol makes it go away ,band like headache as stress headache Memory is stable ,he said his memory is fine , No hallucinations ,visual or auditory Awake alert oriented times jul 04 [address]22 [place] [address] , Worried about losing his house ,no job, He cannot work because of pain and shoulder injury He is taking oxycodone and morphine Elavil 10 mg every night For headache In a previous note Subjective HISTORY AND PHYSICAL Gerald Staley 61 year old man with cognitive impairment ,he is forgetful For a year or more ,before that it was little things that progressed more than not finding keys Misplacing things. Doesn't remember his birthday and wedding anniversary,used to remember them Even when he is talking not able to remember what he was talking about , Drove 2 hours before realizing he was lost . also confirming information ,she added he cannot take stress well and it affects his cognition . Repeating the same questions again and again ,short term memory impaired , Irritability and anxiety . 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 Daily headache,since 2016 bifrontal tylenol helped and now not helping He has interrupted sleep ,he has no syncopal episode Recently the risperidone dose was increased ,not sure if that's a cause of more confusion Head traumas twice as well as child ,he suffered head trauma with loss of consciousness and had nora swelling Was in a coma for a week He also had traumatic facial injuries ,breaking nose three times Review of Systems Objective 07/04/22 1322 BP: 103/68 BP Site: Left Arm BP Position: Sitting BP Cuff Size: Regular Adult Pulse: 75 Resp: 16 SpO2: 97% Weight: 90.3 kg (199 lb) Height: 165.1 cm (5' 5 ) Physical Exam EXAM: NOSE: no erythema or exudate PHARYNX: normal, no erythema NECK: supple and no adenopathy CHEST: Normal chest wall exam Neurological Exam MENTAL STATUS: Alert, oriented to person, place and time and Follows commands CRANIAL NERVES: PERRLA, EOM's intact, Extraocular movements intact, Facial sensation intact, Face symmetric, No dysarthria, Palate elevates symmetrically, Tongue protrudes midline, and Shoulder shrug intact and symmetric MOTOR: No drift and Normal tone MOTOR STRENGTH: Upper and lower extremity 5/5 bilaterally REFLEXES: UE and LE reflexes are equal and reactive SENSATION: Intact light touch COORDINATION: Finger-to- nose-finger intact bilaterally GAIT: Normal-based PAST MEDICAL HISTORY Diagnosis Date Abnormal EKG 04/23/2017 inf [place] age undetermined Adenomatous colon polyp Anxiety Chicken pox Colon polyps Depression ED (erectile dysfunction) Headache HTN (hypertension) Hypogonadism male 04/25/2010 Pulmonary embolism (HCC) Rectal bleed Shingles Shoulder pain pain management. Current Outpatient Medications Medication Sig Dispense Refill [START ON 07/07/2022] oxyCODONE (ROXICODONE) 15 mg immediate release tablet Take 1 tablet by mouth every 8 hours as needed for pain for up to 30 days. Do not start before July 07, 2022. 90 tablet 0 [START ON 07/07/2022] morphine SR (MS CONTIN) 15 mg 12 hr tablet Take 1 tablet by mouth once daily as needed for pain for up to 30 days. for Pain Do not start before July 07, 2022. 30 tablet 0 lidocaine-prilocaine (EMLA) 2.5-2.5 % cream APPLY TO THE AFFECTED AREA(S) THREE TIMES DAILY NEEDED FOR PAIN. 30 g 4 losartan (COZAAR) 100 mg tablet Take 1 tablet by mouth once daily. 90 tablet 3 triamterene-hydroCHLOROthiazide (MAXZIDE-25MG) 37.5-25 mg per tablet Take 1 tablet by mouth once daily. 90 tablet 3 naloxone 4 mg/actuation nasal spray (NARCAN) amitriptyline (ELAVIL) 10 mg tablet Take 1 tablet by mouth daily at bedtime. 30 tablet 3 Current Facility-Administered Medications Medication Dose Route Frequency Provider Last Rate Last Admin perflutren lipid microspheres 1.3 mL in NaCl (PF) 0.9% 10 mL injection (DEFINITY) INTRAVENOUS DIRECTED PRN Lauren Steen APRN.PLUG SORTER sodium chloride 0.9 % (flush) 10 mL (BD POSIFLUSH) 10 mL INTRAVENOUS DIRECTED PRN Lauren Steen APRN.PLUG SORTER Facility-Administered Medications O (more content not included)... [facility] 07-02-2022 Note HNO ID: [id number] Author: Jennifer Stoner APRN.JADA Service: ? Author Type: Nurse Practitioner Type: Progress Notes Filed: 07/05/2022 9:29 PM Note Text: PSYC FOLLOW UP - PSYCHIATRIC PROGRESS NOTE DIAGNOSIS: Bipolar 2 disorder Generalized Anxiety Disorder GAF: -60-51 Moderate symptoms or moderate difficulty in social, occupational or school functioning. TREATMENT PLAN: Patient stopped Risperdal and Lamictal as he reports that they were not effective. Does not wish to trial other medications for his mood disorder due to not being comfortable with the sedation side effect. Discussed Geodon and encouraged patient to review the benefits of treating his mood disorder. Schedule a visit if he would like to start medication for his mood disorder. Encouraged restarting individual psychotherapy. CC: Follow up for mood and anxiety HPI: Gerald Staley is a 62 year old Male with a history of Bipolar 2 disorder and JE presenting today for follow-up. Date of last visit: 04/02/2022 Plan from last visit: Increase Risperdal to help with mood and irritability. Continue Lamictal at the same dose. Encouraged to keep the appointment with Neurology regarding his memory concerns and headaches. Follow up in 2 to 3 months. Today Cecil shares that he is getting worse. I am mean and miserable constantly and ready to blow up at any moment . He reports that his mind is running 100 miles an hour and his thoughts are negative. He worries about his future and things getting worse for him. He experiences headaches every day. He has completed a CT scan and he has a follow up with Neurology on Thursday. He has gone to therapy for speech. He stopped Lamictal and Risperdal as he did not notice any benefit from it. He is concerned that he gets irritable with others easily. He was concerned about feeling sedated with the Risperdal. Reported feeling groggy in the morning. Discussed his desire to not take any medications. He doesn't read so his helps him with the questionnaire. He gets frustrated with it. Continues to struggle with chronic pain issues. Anxiety increases when more people are around him and he gets stimulated. Food doesn't taste good to me . He has lost weight. He does not feel like eating. Has been having dental issues. His partial is not staying in his mouth. He has been trying to look at things from the bright side. Interval Progress: Same Risks and benefits of the medication, including any black box warnings, were discussed with the patient. Social History: See HPI PATIENT DATA: Generalized Anxiety Disorder Scale (JE-7) JE - 7 SCORES 10/02/2020 01/29/2022 07/01/2022 JE-7 Score 21 18 17 (0-4) minimal anxiety, (5-9) mild anxiety, (10-14) moderate anxiety, (15-21) severe anxiety Patient Health Questionnaire (PHQ-9) PHQ-9 11/28/2021 01/29/2022 07/01/2022 Score 13 20 19 (0-4) minimal depression, (5-9) mild depression, (10-14) moderate depression, (15-19) moderately severe depression, (20-27) severe depression ROS: See HPI General: Negative for fever, malaise, unintentional weight loss HEENT: Negative for recent changes in vision or hearing, no nasal drainage Respiratory: Negative for cough, wheezing or SOB Cardiovascular: Negative for chest pain GI: Negative for nausea, vomiting, change in bowel habits MUSCULOSKELETAL: Negative for acute back or joint pain SKIN: Negative for rash NEURO: Negative for headaches, seizures, focal neurological deficits All other systems negative. VITAL SIGNS: BP 118/58 (07/02/22 1421) Temp Pulse 68 (07/02/22 1421) Resp SpO2 MENTAL STATUS EXAMINATION: Appearance: Appropriately groomed, appears stated age Behavior: Appropriately engaged Psychomotor: No psychomotor agitation Cognition Level of Consciousness: Awake and alert. No fluctuation in wakefulness. Orientation: Grossly oriented Memory: Intact Attention/Concentration: Good Fund of Knowledge: Able to demonstrate an awareness of current events. Mood: Sad Affect: Congruent to mood Speech/Language: Appropriate tone, prosody, vic, phonetics, and syntax Thought Form: Goal-directed. No loosening of associations. Thought Content: No delusions noted or endorsed. Perceptual Disturbances: Did not appear to respond to auditory stimuli. Safety: Suicidal Ideations: No suicidal ideation, intent or plan. Homicidal Ideations: No homicidal ideation, intent or plan. Insight: Appropriate Judgment: Appropriate I spent a total of 28 minutes on the date of the service which included preparing to see the patient, [id number] patient care, completing clinical documentation, and counseling and educating the patient/family/caregiver, ordering medications/labs. Jennifer Stoner, KARI.PLUG SORTER July 02, 2022 2:33 PM This note was partially generated using [employer] voice recognition system. Note was reviewed for accuracy. There may be minor misspellings or (more content not included)... [facility] 06-30-2022 Note HNO ID: [id number] Author: Yonathan Barajas MD Service: ? Author Type: Physician Type: Progress Notes Filed: 06/30/2022 3:49 PM Note Text: Yonathan Barajas MD Interventional Cardiology [address], [place] [address] [phone] Chief Complaint Patient presents with: Consult HISTORY OF PRESENT ILLNESS: Mr. Staley is a 62 year old male seen my office today for assessment management of chest pain patient had prior history of hypertensive heart disease controlled with losartan chest pain is not anginal 6 months ago he had significant chest pain where he had a CAT scan confirmed evidence of pulmonary embolism and he took anticoagulant for 6-month since he was treated for his PE he has not had any further chest pain Cardiac catheterization was done in 2019 shows mild nonobstructive coronary artery disease medical therapy is recommended Blood Pressures well controlled Cardiac Risk Factors age (male over 45, female over 55), hypertension, family history of CAD PAST MEDICAL HISTORY Diagnosis Date Abnormal EKG 04/23/2017 inf [place] age undetermined Adenomatous colon polyp Anxiety Chicken pox Colon polyps Depression ED (erectile dysfunction) Headache HTN (hypertension) Hypogonadism male 04/25/2010 Pulmonary embolism (HCC) Rectal bleed Shingles Shoulder pain pain management. PAST SURGICAL HISTORY Procedure Laterality Date COLONOSCOPY 06/09/2022 Tubular Adenoma COLONOSCOPY FLX DX W/COLLJ SPEC WHEN PFRMD age 40 Colonoscopy COLONOSCOPY FLX DX W/COLLJ SPEC WHEN PFRMD 06/04/2010 Colonoscopy COLONOSCOPY FLX DX W/COLLJ SPEC WHEN PFRMD 05/25/2018 Multiple Fragments of Tubular Adenoma, Diverticulosis COLONOSCOPY GEN ANES 06/27/2020 Two 4 to 7 mm polyps (adenomatous and hyperplastic ) COLSC FLX W/RMVL OF TUMOR POLYP LESION SNARE TQ 05/30/2016 adenomatous polyp - small - 5 year follow up ESOPHAGOGASTRODUODENOSCOPY TRANSORAL DIAGNOSTIC 05/25/2018 Duodenitis, Gastritis FOOT SURGERY HX Right ~ 2014 OPEN REPAIR OF ROTATOR CUFF ACUTE Right 10/2016 Rotator cuff repair - Dr. Santamaria RECONSTRUCTION ROTATOR CUFF AVULSION CHRONIC Left 03/21/2010 Dr. Stalin Clark RPR UMBILICAL HRNA 5 YRS/> REDUCIBLE 06/11/2016 simple SKIN GRAFT HX Right 1986 eyelid TONSILLECTOMY HX Childhood FAMILY HISTORY Problem Relation Age of Onset Diabetes Mother Hypertension Mother Arthritis Mother Breast Cancer Mother Dementia Mother Cancer Father throat Asthma No Family History Colon Cancer No Family History Social History Tobacco Use Smoking status: Never Smokeless tobacco: Never Vaping Use Vaping Use: Never used Substance Use Topics Alcohol use: Yes Alcohol/week: 15.0 standard drinks Types: 6 Cans of Beer (12oz) per week Comment: 12 pack a week Drug use: Not Currently Comment: no longer using. ALLERGIES Allergen Reactions Bakari Inhibitors Cough Darvocet A500 [Prop* GI Upset Medications: Current Outpatient Medications Medication Sig Dispense Refill oxyCODONE (ROXICODONE) 15 mg immediate release tablet Take 1 tablet by mouth every 8 hours as needed for pain for up to 30 days. Do not start before June 07, 2022. 90 tablet 0 morphine SR (MS CONTIN) 15 mg 12 hr tablet Take 1 tablet by mouth once daily as needed for pain for up to 30 days. for Pain Do not start before June 07, 2022. 30 tablet 0 lidocaine-prilocaine (EMLA) 2.5-2.5 % cream APPLY TO THE AFFECTED AREA(S) THREE TIMES DAILY NEEDED FOR PAIN. 30 g 4 losartan (COZAAR) 100 mg tablet Take 1 tablet by mouth once daily. 90 tablet 3 triamterene-hydroCHLOROthiazide (MAXZIDE-25MG) 37.5-25 mg per tablet Take 1 tablet by mouth once daily. 90 tablet 3 naloxone 4 mg/actuation nasal spray (NARCAN) Current Facility-Administered Medications Medication Dose Route Frequency Provider Last Rate Last Admin perflutren lipid microspheres 1.3 mL in NaCl (PF) 0.9% 10 mL injection (DEFINITY) INTRAVENOUS DIRECTED PRN Lauren Steen APRN.PLUG SORTER sodium chloride 0.9 % (flush) 10 mL (BD POSIFLUSH) 10 mL INTRAVENOUS DIRECTED PRN Lauren Steen APRN.PLUG SORTER Facility-Administered Medications Ordered in Other Visits Medication Dose Route Frequency Provider Last Rate Last Admin lidocaine (PF) 10 mg/mL (1 %) 1-2 mg injection (XYLOCAINE) 0.1-0.2 mL INTRADERMAL PRN Glen Brown MD lactated ringers iv infusion 30 mL/hr INTRAVENOUS CONTINUOUS Glen Brown MD Review of Systems Constitutional: Negative for chills, diaphoresis, fever, malaise/fatigue and weight loss. HENT: Negative for congestion, ear discharge, ear pain, hearing loss, nosebleeds, sinus pain, sore throat and tinnitus. Eyes: Negative for blurred vision, double vision, photophobia, pain, discharge and redness. Respiratory: Negative for cough, hemoptysis, sputum production, shortness of breath, wheezing and stridor. Cardiovascular: Negative for chest pain, palpitations, orthopnea, claudication, leg swelling an (more content not included)... [facility] 06-30-2022 History of Present illness Narrative Images from the original note were not included. Yonathan Barajas MD Interventional Cardiology [address], [place] [address] [phone] Chief Complaint Patient presents with: Consult HISTORY OF PRESENT ILLNESS: Mr. Staley is a 62 year old male seen my office today for assessment management of chest pain patient had prior history of hypertensive heart disease controlled with losartan chest pain is not anginal 6 months ago he had significant chest pain where he had a CAT scan confirmed evidence of pulmonary embolism and he took anticoagulant for 6-month since he was treated for his PE he has not had any further chest pain Cardiac catheterization was done in 2019 shows mild nonobstructive coronary artery disease medical therapy is recommended Blood Pressures well controlled Cardiac Risk Factors age (male over 45, female over 55), hypertension, family history of CAD PAST MEDICAL HISTORY Diagnosis Date Abnormal EKG 04/23/2017 inf [place] age undetermined Adenomatous colon polyp Anxiety Chicken pox Colon polyps Depression ED (erectile dysfunction) Headache HTN (hypertension) Hypogonadism male 04/25/2010 Pulmonary embolism (HCC) Rectal bleed Shingles Shoulder pain pain management. PAST SURGICAL HISTORY Procedure Laterality Date COLONOSCOPY 06/09/2022 Tubular Adenoma COLONOSCOPY FLX DX W/COLLJ SPEC WHEN PFRMD age 40 Colonoscopy COLONOSCOPY FLX DX W/COLLJ SPEC WHEN PFRMD 06/04/2010 Colonoscopy COLONOSCOPY FLX DX W/COLLJ SPEC WHEN PFRMD 05/25/2018 Multiple Fragments of Tubular Adenoma, Diverticulosis COLONOSCOPY GEN ANES 06/27/2020 Two 4 to 7 mm polyps (adenomatous and hyperplastic ) COLSC FLX W/RMVL OF TUMOR POLYP LESION SNARE TQ 05/30/2016 adenomatous polyp - small - 5 year follow up ESOPHAGOGASTRODUODENOSCOPY TRANSORAL DIAGNOSTIC 05/25/2018 Duodenitis, Gastritis FOOT SURGERY HX Right ~ 2014 OPEN REPAIR OF ROTATOR CUFF ACUTE Right 10/2016 Rotator cuff repair - Dr. Santamaria RECONSTRUCTION ROTATOR CUFF AVULSION CHRONIC Left 03/21/2010 Dr. Stalin Clark RPR UMBILICAL HRNA 5 YRS/> REDUCIBLE 06/11/2016 simple SKIN GRAFT HX Right 1986 eyelid TONSILLECTOMY HX Childhood FAMILY HISTORY Problem Relation Age of Onset Diabetes Mother Hypertension Mother Arthritis Mother Breast Cancer Mother Dementia Mother Cancer Father throat Asthma No Family History Colon Cancer No Family History Social History Tobacco Use Smoking status: Never Smokeless tobacco: Never Vaping Use Vaping Use: Never used Substance Use Topics Alcohol use: Yes Alcohol/week: 15.0 standard drinks Types: 6 Cans of Beer (12oz) per week Comment: 12 pack a week Drug use: Not Currently Comment: no longer using. ALLERGIES Allergen Reactions Bakari Inhibitors Cough Darvocet A500 [Prop* GI Upset Medications: Current Outpatient Medications Medication Sig Dispense Refill oxyCODONE (ROXICODONE) 15 mg immediate release tablet Take 1 tablet by mouth every 8 hours as needed for pain for up to 30 days. Do not start before June 07, 2022. 90 tablet 0 morphine SR (MS CONTIN) 15 mg 12 hr tablet Take 1 tablet by mouth once daily as needed for pain for up to 30 days. for Pain Do not start before June 07, 2022. 30 tablet 0 lidocaine-prilocaine (EMLA) 2.5-2.5 % cream APPLY TO THE AFFECTED AREA(S) THREE TIMES DAILY NEEDED FOR PAIN. 30 g 4 losartan (COZAAR) 100 mg tablet Take 1 tablet by mouth once daily. 90 tablet 3 triamterene-hydroCHLOROthiazide (MAXZIDE-25MG) 37.5-25 mg per tablet Take 1 tablet by mouth once daily. 90 tablet 3 naloxone 4 mg/actuation nasal spray (NARCAN) Current Facility-Administered Medications Medication Dose Route Frequency Provider Last Rate Last Admin perflutren lipid microspheres 1.3 mL in NaCl (PF) 0.9% 10 mL injection (DEFINITY) INTRAVENOUS DIRECTED PRN Lauren Steen APRN.PLUG SORTER sodium chloride 0.9 % (flush) 10 mL (BD POSIFLUSH) 10 mL INTRAVENOUS DIRECTED PRN Lauren Steen APRN.PLUG SORTER Facility-Administered Medications Ordered in Other Visits Medication Dose Route Frequency Provider Last Rate Last Admin lidocaine (PF) 10 mg/mL (1 %) 1-2 mg injection (XYLOCAINE) 0.1-0.2 mL INTRADERMAL PRN Glen Brown MD lactated ringers iv infusion 30 mL/hr INTRAVENOUS CONTINUOUS Glen Brown MD Review of Systems Constitutional: Negative for chills, diaphoresis, fever, malaise/fatigue and weight loss. HENT: Negative for congestion, ear discharge, ear pain, hearing loss, nosebleeds, sinus pain, sore throat and tinnitus. Eyes: Negative for blurred vision, double vision, photophobia, pain, discharge and redness. Respiratory: Negative for cough, hemoptysis, sputum production, shortness of breath, wheezing and stridor. Cardiovascular: Negative for chest pain, palpitations, orthopnea, claudication, leg swelling and PND. Gastrointestinal: Negative for abdominal pain, blood in stool, constipation, diarrhea, heartburn, melena, nausea and vomiting. Genitourinary: Negative for dysuria, flank pain, frequency, hematuria and urgency. Musculoskeletal: Negative for back pain, falls, joint pain, myalgias and neck pain. Skin: Negative for itching and rash. Neurological: Negative for dizziness, tingling, tremors, sensory change, speech change, focal weakness, seizures, loss of consciousness, weakness and headaches. Endo/Heme/Allergies: Negative for environmental allergies and polydipsia. Does not bruise/bleed easily. Psychiatric/Behavioral: Negative for depression, hallucinations, memory loss, substance abuse and suicidal ideas. The patient is not nervous/anxious and does not have insomnia. Physical Examination: Vitals:BP 110/80 Pulse 52 Wt 202 lb (91.6kg) SpO2 99% BP w/Orthostatic Vitals Date and Time Orthostatic BP Orthostatic Pulse BP Pulse BP Position BP Site BP Cuff Size 06/30/22 1511 -- -- 110/80 52 Sitting Right Arm Large Adult Last 2 Encounter Wt Readings: Date: Wt: 06/30/2022 91.6 kg (202 lb) 06/09/2022 92.1 kg (203 lb) Physical Exam Constitutional: General: He is not in acute distress. Appearance: He is not diaphoretic. HENT: Head: Normocephalic and atraumatic. Right Ear: External ear normal. Left Ear: External ear normal. Nose: Nose normal. Mouth/Throat: Pharynx: Oropharynx is clear. Eyes: General: Right eye: No discharge. Left eye: No discharge. Conjunctiva/sclera: Conjunctivae normal. Pupils: Pupils are equal, round, and reactive to light. Cardiovascular: Rate and Rhythm: Normal rate and regular rhythm. Heart sounds: Normal heart sounds, S1 normal and S2 normal. No murmur heard. No friction rub. No gallop. No S3 or S4 sounds. Pulmonary: Effort: Pulmonary effort is normal. No respiratory distress. Breath sounds: Normal breath sounds. No wheezing or rales. Chest: Chest wall: No tenderness. Musculoskeletal: General: Normal range of motion. Cervical back: Normal range of motion and neck supple. Skin: General: Skin is warm and dry. Neurological: Mental Status: He is alert and oriented to person, place, and time. Psychiatric: Mood and Affect: Mood normal. Thought Content: Thought content normal. Pertinent Labs: CBC: Hemoglobin (g/dL) Date Value 03/03/2022 15.9 05/29/2020 16.3 Hematocrit (%) Date Value 03/03/2022 48.7 05/29/2020 48.4 WBC (k/uL) Date Value 03/03/2022 10.46 05/29/2020 6.31 Platelet Count (k/uL) Date Value 03/03/2022 265 05/29/2020 205 BMP: Glucose (mg/dL) Date Value 01/06/2022 87 05/29/2020 83 Potassium (mmol/L) Date Value 01/06/2022 4.6 05/29/2020 3.8 Sodium (mmol/L) Date Value 01/06/2022 141 05/29/2020 140 Chloride (mmol/L) Date Value 01/06/2022 105 05/29/2020 102 CO2 (mmol/L) Date Value 01/06/2022 24 05/29/2020 27 Creatinine (mg/dL) Date Value 01/06/2022 0.99 05/29/2020 0.97 BUN (mg/dL) Date Value 01/06/2022 18 05/29/2020 20 Anion Gap (mmol/L) Date Value 01/06/2022 12 05/29/2020 11 Calcium (mg/dL) Date Value 05/29/2020 9.4 Calcium, Total (mg/dL) Date Value 01/06/2022 9.6 INR: Lipid Profile: Cholesterol, Total Date Value Ref Range Status 12/17/2020 230 (H) <200 mg/dL Final Comment: <200 mg/dL, Desirable 200-239 mg/dL, Borderline high >239 mg/dL, High HDL Cholesterol Date Value Ref Range Status 12/17/2020 36 (L) >39 mg/dL Final Comment: 40-59 mg/dL, Acceptable >59 mg/dL, High: Negative risk factor for coronary heart disease <40 mg/dL, Low: Positive risk factor for coronary heart disease LDL Cholesterol Date Value Ref Range Status 12/17/2020 154 (H) <100 mg/dL Final Comment: <100 mg/dL, Optimal 100-129 mg/dL, Near optimal/above optimal 130-159 mg/dL, Borderline high 160-189 mg/dL, High >189 mg/dL, Very high Secondary prevention optimal LDL Cholesterol levels are recommended to be < 70 mg/dL Triglyceride Date Value Ref Range Status 12/17/2020 198 (H) <150 mg/dL Final Comment: <150 mg/dL, Normal 150-199 mg/dL, Borderline high 200-499 mg/dL, High >499 mg/dL, Very high Hemoglobin A1C: No results found for: HGBA1C TSH: No results found for: TSHREFL Prior Cardiac Testing Stress test Assessment and Plan: 62 male with atypical chest pain ASSESSMENT/PLAN: 1. 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 Primary hypertension - ICD9: 401.9, ICD10: I10 - good control - Continue current medication(s) - Recommended regular aerobic exercise. - Recommend home blood pressure monitoring, to bring results in on next visit - Goal of BP <130/80 3. Other forms of angina pectoris (HCC) - ICD9: 413.9, ICD10: I20.8 Stress induced Yonathan Barajas MD Follow up planning: yearly Electronically signed by Yonathan Barjaas MD on June 30, 2022, 3:39 PM The above note was partially created using a dictation recognition software. A reasonable attempt has been made to correct any errors. documented in this encounter [facility] 06-09-2022 Note HNO ID: [id number] Author: Breanna Box RN Service: ? Author Type: Registered Nurse Type: Nursing Progress Note Filed: 06/09/2022 12:25 PM Note Text: Instructions reviewed with patient. States understanding [facility] 06-09-2022 Note HNO ID: [id number] Author: Breanna Box RN Service: ? Author Type: Registered Nurse Type: Nursing Progress Note Filed: 06/09/2022 12:04 PM Note Text: Dr. Glen Brown Physician at bedside. [facility] 06-03-2022 Note HNO ID: [id number] Author: Kevin Cary MD Service: ? Author Type: Physician Type: Progress Notes Filed: 06/03/2022 3:58 PM Note Text: Patient presents with: Follow Up HPI: Patient presents today for office visit for follow up. Stopped Omeprazole. He said he doesn't notice a difference either way with taking it. Denies any upper abdominal pain. Issues have resolved. Saw gastroenterology. Getting a colonoscopy on Thursday. They discussed seeing surgery for the hemorrhoids. Complaints of headaches X 6 months. States he has at least 1 headache daily. Describes it as sharp and painful. Pain starts in front of head and goes down to base of neck. Complains of a headache currently during visit. Feels his memory is getting better. States that remembering things has more to do with his focus at the time something is being said to him. Has been seeing speech therapy. Had mri and eeg. Does not have a follow up scheduled yet. Being outside more with nice weather has helped him a lot. PSYCH: Sees Jennifer next week. He has stopped his Risperidone. States he doesn't notice a difference while taking it. No new chest pain or shortness of breath. Off of his eliquis. Coag panel was negative Still seeing pain management. Has a cardiology follow up too as well. Last tsh was negative. MEDICATIONS: Current Outpatient Medications Medication Sig [START ON 06/07/2022] oxyCODONE (ROXICODONE) 15 mg immediate release tablet Take 1 tablet by mouth every 8 hours as needed for pain for up to 30 days. Do not start before June 07, 2022. [START ON 06/07/2022] morphine SR (MS CONTIN) 15 mg 12 hr tablet Take 1 tablet by mouth once daily as needed for pain for up to 30 days. for Pain Do not start before June 07, 2022. hydrocortisone (ANUSOL-HC) 2.5 % rectal cream by RECTAL route twice daily for 14 days. lidocaine-prilocaine (EMLA) 2.5-2.5 % cream APPLY TO THE AFFECTED AREA(S) THREE TIMES DAILY NEEDED FOR PAIN. losartan (COZAAR) 100 mg tablet Take 1 tablet by mouth once daily. triamterene-hydroCHLOROthiazide (MAXZIDE-25MG) 37.5-25 mg per tablet Take 1 tablet by mouth once daily. naloxone 4 mg/actuation nasal spray (NARCAN) Current Facility-Administered Medications Medication Dose Route Frequency perflutren lipid microspheres 1.3 mL in NaCl (PF) 0.9% 10 mL injection (DEFINITY) INTRAVENOUS DIRECTED PRN sodium chloride 0.9 % (flush) 10 mL (BD POSIFLUSH) 10 mL INTRAVENOUS DIRECTED PRN ALLERGIES: ALLERGIES Allergen Reactions Bakari Inhibitors Cough Darvocet A500 [Prop* GI Upset PAST MEDICAL HISTORY Diagnosis Date Abnormal EKG 04/23/2017 inf [place] age undetermined Anxiety Chicken pox Colon polyps Depression ED (erectile dysfunction) Headache HTN (hypertension) Hypogonadism male 04/25/2010 Pulmonary embolism (HCC) Rectal bleed Shingles Shoulder pain pain management. PAST SURGICAL HISTORY Procedure Laterality Date COLONOSCOPY FLX DX W/COLLJ SPEC WHEN PFRMD age 40 Colonoscopy COLONOSCOPY FLX DX W/COLLJ SPEC WHEN PFRMD 06/04/2010 Colonoscopy COLONOSCOPY FLX DX W/COLLJ SPEC WHEN PFRMD 05/25/2018 Multiple Fragments of Tubular Adenoma, Diverticulosis COLONOSCOPY GEN ANES 06/27/2020 Two 4 to 7 mm polyps (adenomatous and hyperplastic ) COLSC FLX W/RMVL OF TUMOR POLYP LESION SNARE TQ 05/30/2016 adenomatous polyp - small - 5 year follow up ESOPHAGOGASTRODUODENOSCOPY TRANSORAL DIAGNOSTIC 05/25/2018 Duodenitis, Gastritis FOOT SURGERY HX Right ~ 2014 OPEN REPAIR OF ROTATOR CUFF ACUTE Right 10/2016 Rotator cuff repair - Dr. Santamaria RECONSTRUCTION ROTATOR CUFF AVULSION CHRONIC Left 03/21/2010 Dr. Stalin Clark RPR UMBILICAL HRNA 5 YRS/> REDUCIBLE 06/11/2016 simple SKIN GRAFT HX Right 1986 eyelid TONSILLECTOMY HX Childhood FAMILY HISTORY Problem Relation Age of Onset Diabetes Mother Hypertension Mother Arthritis Mother Breast Cancer Mother Dementia Mother Cancer Father throat Asthma No Family History Colon Cancer No Family History Social History Tobacco Use Smoking status: Never Smokeless tobacco: Never Vaping Use Vaping Use: Never used Substance Use Topics Alcohol use: Yes Alcohol/week: 15.0 standard drinks Types: 6 Cans of Beer (12oz) per week Comment: 12 pack a week Drug use: Not Currently Comment: no longer using. Reviewed current medications, allergies, past medical history, surgical history, family history and social history today. REVIEW OF SYSTEMS All other reviewed and negative other than HPI. VITALS: BP 130/82 Pulse (!) 54 Ht 165.1 cm (5' 5 ) Wt 96.6 kg (213 lb) SpO2 97% BMI 35.45 kg/m? Last 4 Encounter Wt Readings: Date: Wt: 06/02/2022 96.2 kg (212 lb) 04/16/2022 96.2 kg (212 lb) 04/15/2022 96.6 kg (213 lb) 04/02/2022 96.6 kg (213 lb) PHYSICAL EXAMINATION: General appearance: Well appearing, alert, in no acute distress, well-hydrated, well nourished. Skin: Skin color, irasema (more content not included)... [facility] 06-03-2022 Miscellaneous Notes The following approved medication requests have been transmitted electronically. Requested Prescriptions Signed Prescriptions Disp Refills oxyCODONE (ROXICODONE) 15 mg immediate release tablet 90 tablet 0 Sig: Take 1 tablet by mouth every 8 hours as needed for pain for up to 30 days. Do not start before June 07, 2022. Authorizing Provider: ANNA FOLEY morphine SR (MS CONTIN) 15 mg 12 hr tablet 30 tablet 0 Sig: Take 1 tablet by mouth once daily as needed for pain for up to 30 days. for Pain Do not start before June 07, 2022. Authorizing Provider: ANNA FOLEY APRN.TWISTING FRAME CHANGER Patient phones requesting refills as follows: Requested Prescriptions Pending Prescriptions Disp Refills oxyCODONE (ROXICODONE) 15 mg immediate release tablet 90 tablet 0 Sig: Take 1 tablet by mouth every 8 hours as needed for pain for up to 30 days. morphine SR (MS CONTIN) 15 mg 12 hr tablet 30 tablet 0 Sig: Take 1 tablet by mouth once daily as needed for pain for up to 30 days. for Pain Last UDS: Summary Report Date Value Ref Range Status 04/28/2022 FINAL Final Comment: Cannabinoids, MS, Ur RFX Opiate Class, MS, Ur RFX Oxycodone Class, MS, Ur RFX ToxAssure Flex 23, Ur Test Result Flag Units Drug Present Carboxy-THC 14 ng/mg creat Carboxy-THC is a metabolite of tetrahydrocannabinol (THC). Source of THC is most commonly herbal marijuana or marijuana-based products, but THC is also present in a scheduled prescription medication. Trace amounts of THC can be present in hemp and cannabidiol (CBD) products. This test is not intended to distinguish between wfebl-5-cdrefmtzlsgwlaagwsao, the predominant form of THC in most herbal or marijuana-based products, and luqrf-1-qvhbhltscvocpskifopa. Morphine 8076 ng/mg creat Normorphine 234 ng/mg creat Potential sources of large amounts of morphine in the absence of codeine include administration of morphine or use of heroin. Normorphine is an expected metabolite of morphine. Oxycodone 329 ng/mg creat Oxymorphone 459 ng/mg creat Noroxycodone 974 ng/mg creat Noroxymorphone 1060 ng/mg creat Sources of oxycodone are scheduled prescription medications. Oxymorphone, noroxycodone, and noroxymorphone are expected metabolites of oxycodone. Oxymorphone is also available as a scheduled prescription medication. Test Result Flag Units Ref Range Creatinine 58 mg/dL >=20 Declared Medications: Medication list was not provided. For clinical consultation, please call . @FLOW([id number])@ Lab Results Component Value Date SUMM FINAL 04/28/2022 Summary Report (Summary) Date Value Ref Range Status 11/22/2021 FINAL Final Comment: TOXASSURE COMP DRUG ANALYSIS,UR Test Result Flag Units Drug Present Carboxy-THC 15 ng/mg creat Carboxy-THC is a metabolite of tetrahydrocannabinol (THC). Source of THC is most commonly herbal marijuana or marijuana-based products, but THC is also present in a scheduled prescription medication. Trace amounts of THC can be present in hemp and cannabidiol (CBD) products. This test is not intended to distinguish between vmfax-7-xicvgvtxmhglfacjwslt, the predominant form of THC in most herbal or marijuana-based products, and fxcde-3-hrvjeebntrohkrxyaelm. Morphine 1845 ng/mg creat Potential sources of large amounts of morphine in the absence of codeine include administration of morphine or use of heroin. Oxycodone 960 ng/mg creat Oxymorphone 359 ng/mg creat Noroxycodone 2246 ng/mg creat Noroxymorphone 622 ng/mg creat Sources of oxycodone are scheduled prescription medications. Oxymorphone, noroxycodone, and noroxymorphone are expected metabolites of oxycodone. Oxymorphone is also available as a scheduled prescription medication. Gabapentin PRESENT Lamotrigine PRESENT Quetiapine PRESENT Test Result Flag Units Ref Range Creatinine 134 mg/dL >=20 Declared Medications: Medication list was not provided. For clinical consultation, please call . Please review and advise. Harmony Reeder RN documented in this encounter [facility] 04-18-2023 Miscellaneous Notes Patient phones requesting refills as follows: Requested Prescriptions Pending Prescriptions Disp Refills oxyCODONE (ROXICODONE) 15 mg immediate release tablet 90 tablet 0 Sig: Take 1 tablet by mouth every 8 hours as needed for pain for up to 30 days. morphine SR (MS CONTIN) 15 mg 12 hr tablet 30 tablet 0 Sig: Take 1 tablet by mouth once daily as needed for pain for up to 30 days. for Pain Last UDS: Summary Report Date Value Ref Range Status 04/28/2022 FINAL Final Comment: Cannabinoids, MS, Ur RFX Opiate Class, MS, Ur RFX Oxycodone Class, MS, Ur RFX ToxAssure Flex 23, Ur Test Result Flag Units Drug Present Carboxy-THC 14 ng/mg creat Carboxy-THC is a metabolite of tetrahydrocannabinol (THC). Source of THC is most commonly herbal marijuana or marijuana-based products, but THC is also present in a scheduled prescription medication. Trace amounts of THC can be present in hemp and cannabidiol (CBD) products. This test is not intended to distinguish between nlczs-1-kuesynmsmsuhzmoprvoo, the predominant form of THC in most herbal or marijuana-based products, and wwkba-2-acvsurvqzpmkeuksnlxu. Morphine 8076 ng/mg creat Normorphine 234 ng/mg creat Potential sources of large amounts of morphine in the absence of codeine include administration of morphine or use of heroin. Normorphine is an expected metabolite of morphine. Oxycodone 329 ng/mg creat Oxymorphone 459 ng/mg creat Noroxycodone 974 ng/mg creat Noroxymorphone 1060 ng/mg creat Sources of oxycodone are scheduled prescription medications. Oxymorphone, noroxycodone, and noroxymorphone are expected metabolites of oxycodone. Oxymorphone is also available as a scheduled prescription medication. Test Result Flag Units Ref Range Creatinine 58 mg/dL >=20 Declared Medications: Medication list was not provided. For clinical consultation, please call . @FLOW([id number])@ Lab Results Component Value Date SUMM FINAL 04/28/2022 Summary Report (Summary) Date Value Ref Range Status 11/22/2021 FINAL Final Comment: TOXASSURE COMP DRUG ANALYSIS,UR Test Result Flag Units Drug Present Carboxy-THC 15 ng/mg creat Carboxy-THC is a metabolite of tetrahydrocannabinol (THC). Source of THC is most commonly herbal marijuana or marijuana-based products, but THC is also present in a scheduled prescription medication. Trace amounts of THC can be present in hemp and cannabidiol (CBD) products. This test is not intended to distinguish between idhky-1-vycpgomlahupdfzkqznr, the predominant form of THC in most herbal or marijuana-based products, and iihyq-3-vamjtracjvltthxzlqyt. Morphine 1845 ng/mg creat Potential sources of large amounts of morphine in the absence of codeine include administration of morphine or use of heroin. Oxycodone 960 ng/mg creat Oxymorphone 359 ng/mg creat Noroxycodone 2246 ng/mg creat Noroxymorphone 622 ng/mg creat Sources of oxycodone are scheduled prescription medications. Oxymorphone, noroxycodone, and noroxymorphone are expected metabolites of oxycodone. Oxymorphone is also available as a scheduled prescription medication. Gabapentin PRESENT Lamotrigine PRESENT Quetiapine PRESENT Test Result Flag Units Ref Range Creatinine 134 mg/dL >=20 Declared Medications: Medication list was not provided. For clinical consultation, please call . Please review and advise. Harmony Reeder RN documented in this encounter [facility] 06-02-2022 Note HNO ID: [id number] Author: Gia Ventura PA-C Service: ? Author Type: Physician Funnel Setter Type: Progress Notes Filed: 06/02/2022 2:11 PM Note Text: CHIEF COMPLAINT: Patient presents with: GERD: Fecal urgency then only blood comes out, abnormal stool texture. Labs 05/16/22. Dark colored blood HPI: Gerald Staley is a 62 year old male who presents for GERD (Fecal urgency then only blood comes out, abnormal stool texture. Labs 05/16/22. Dark colored blood). Seen last for positive FOBT. Colon 2020 showed hemorrhoids/polyps. Having persistent chronic intermittent anal bleeding. Having a BM on average every day, alters between constipated/diarrhea, more persistent bleeding. Was previously having upper abd pain/heartburn which has since subsided after course of Prilosec 20 mg, no longer taking any stomach medications. Denies current abd pain, weight loss, N/V, heartburn, indigestion. Colon 2020 two polyps 4-7 mm, int hemorrhoids Component Latest Ref Rng AND Units 03/03/2022 WBC 3.70 - 11.00 k/uL 10.46 RBC 4.20 - 6.00 m/uL 5.48 Hemoglobin 13.0 - 17.0 g/dL 15.9 Hematocrit 39.0 - 51.0 % 48.7 MCV 80.0 - 100.0 fL 88.9 MCH 26.0 - 34.0 pg 29.0 MCHC 30.5 - 36.0 g/dL 32.6 RDW-CV 11.5 - 15.0 % 12.9 Platelet Count 150 - 400 k/uL 265 MPV 9.0 - 12.7 fL 9.4 Neut% % 62.8 Abs Neut (ANC) 1.45 - 7.50 k/uL 6.58 Lymph% % 26.1 Abs Lymph 1.00 - 4.00 k/uL 2.73 [place]% % 9.6 Abs [place] <0.87 k/uL 1.00 (H) Eosin% % 0.4 Abs Eosin <0.46 k/uL 0.04 Baso% % 0.4 Abs Baso <0.11 k/uL 0.04 Immature Gran % % 0.7 IMMATURE GRANS (ABS) <0.10 k/uL 0.07 NRBC /100 WBC 0.0 Absolute nRBC <0.01 k/uL <0.01 DTYPE Auto Albumin 3.9 - 4.9 g/dL 4.6 Bilirubin, Total 0.2 - 1.3 mg/dL 0.7 Bilirubin, Conjug <0.2 mg/dL <0.2 Alkaline Phosphatase 38 - 113 U/L 85 AST 14 - 40 U/L 23 ALT 10 - 54 U/L 43 Protein, Total 6.3 - 8.0 g/dL 6.5 Syphilis Screen Result Nonreactive Nonreactive Syphilis Interpretation Cannot exclude recent Treponemal infection if specimen collected within 7-10 days after appearance of suspect lesions or 2-3 weeks after an exposure. Clinical correlation is required. GGT 10 - 70 U/L H. pylori IgG, Qualitative Negative Vitamin B12 232 - 1,245 pg/mL 905 Folate >4.7 ng/mL 6.9 TSH 0.270 - 4.200 mIU/L 2.410 OV 2020 Gerald Staley is a 60 year old male who presents for Change In Bowel Habits, mucous in stools, and Rectal Bleeding (h/o adenomatous colon polyps). Has had GI symptoms for the past three years. Last colonoscopy 2019 showed tubular adenoma, diverticulosis. Recommended repeat in 3 yrs. Rectal bleeding returned four weeks ago. BMs are 1-2 per day, normal consistency, mucous in stools, blood is separate from stools. Denies h/o constipation, straining w/ BMs, tenesmus. Has chronic heartburn, EGD from 2019 showed duodenitis, gastritis neg. Stomach biopsies. Is taking Prilosec 20 mg without relief. 05/29/2020 lipase, BMP, CBC, WNL, fecal occult positive, TSH elevated Takes ibuprofen as needed Never smoker 12 pack beer per week Record Review: [facility] / Outside records reviewed. PAST MEDICAL HISTORY Diagnosis Date Abnormal EKG 04/23/2017 inf [place] age undetermined Anxiety Chicken pox Colon polyps Depression ED (erectile dysfunction) Headache HTN (hypertension) Hypogonadism male 04/25/2010 Pulmonary embolism (HCC) Rectal bleed Shingles Shoulder pain pain management. PAST SURGICAL HISTORY Procedure Laterality Date COLONOSCOPY FLX DX W/COLLJ SPEC WHEN PFRMD age 40 Colonoscopy COLONOSCOPY FLX DX W/COLLJ SPEC WHEN PFRMD 06/04/2010 Colonoscopy COLONOSCOPY FLX DX W/COLLJ SPEC WHEN PFRMD 05/25/2018 Multiple Fragments of Tubular Adenoma, Diverticulosis COLONOSCOPY GEN ANES 06/27/2020 Two 4 to 7 mm polyps (adenomatous and hyperplastic ) COLSC FLX W/RMVL OF TUMOR POLYP LESION SNARE TQ 05/30/2016 adenomatous polyp - small - 5 year follow up ESOPHAGOGASTRODUODENOSCOPY TRANSORAL DIAGNOSTIC 05/25/2018 Duodenitis, Gastritis FOOT SURGERY HX Right ~ 2014 OPEN REPAIR OF ROTATOR CUFF ACUTE Right 10/2016 Rotator cuff repair - Dr. Santamaria RECONSTRUCTION ROTATOR CUFF AVULSION CHRONIC Left 03/21/2010 Dr. Stalin Clark RPR UMBILICAL HRNA 5 YRS/> REDUCIBLE 06/11/2016 simple SKIN GRAFT HX Right 1987 eyelid TONSILLECTOMY HX Childhood Allergies: ALLERGIES Allergen Reactions Bakari Inhibitors Cough Darvocet A500 [Prop* GI Upset Medications: oxyCODONE (ROXICODONE) 15 mg immediate release tabletTake 1 tablet by mouth every 8 hours as needed for pain for up to 30 days. Do not start before May 08, 2022.Disp: 90 tabletRfl: 0 morphine SR (MS CONTIN) 15 mg 12 hr tabletTake 1 tablet by mouth once daily as needed for pain for up to 30 days. for Pain Do not start before May 08, 2022.Disp: 30 tabletRfl: 0 lidocaine-prilocaine (EMLA) 2.5-2.5 % creamAPPLY TO THE AFFECTED AREA(S) THREE TIMES DAILY NEEDED FOR PAIN.Disp: 30 gRfl: 4 losartan (COZAAR) 10 (more content not included)... [facility] 06-02-2022 Instructions Gia Ventura PA-C - 06/02/2022 1:59 PM EDT Images from the original note were not included. - Drink around 64 oz water daily - Start Miralax daily to induce bowel movement Miralax generally will help produce bowel movement in 1-3 days Fill to top of white section in cap which is marked to indicate the correct dose (17 g) Stir and dissolve in any 8 ounces of non-carbonated beverage (cold, hot or room temperature) then drink If diarrhea occurs, reduce usage to every other day Bowel Preparation Instructions for: Miralax-Gatorade Preparations IF YOU DO NOT FOLLOW THESE DIRECTIONS, YOUR COLONOSCOPY WILL BE CANCELLED. Rodriguez Instructions: Your bowel must be empty so that your doctor can clearly view your colon. Follow all of the instructions in this handout EXACTLY as they are written. Do NOT eat any solid food the ENTIRE day before your colonoscopy. Buy your bowel preparation at least 5 days before your colonoscopy. Four (4) Dulcolax laxative tablets containing 5mg of bisacodyl each (NOT Dulcolax stool softener) One (1) 8.3oz. bottle Miralax (238 grams) or generic equivalent 2 x 32oz. Bottles of Gatorade (NOT RED) Diabetic Patients: Use G2 (Gatorade 2) TRANSPORTATION on the Day of Your Exam A responsible adult MUST be present with you at Check In prior to your colonoscopy and REMAIN in the endoscopy area until you are discharged. You are NOT ALLOWED to drive, take a taxi or bus, or leave the Endoscopy Center ALONE. If you do not have a responsible ambulance driver paramedic (family member or friend) with you to take you home, your exam cannot be done with sedation and will be cancelled. Please bring a list of all of your current medications, including any [id number]-[id number] medications with you. Medications If you take insulin, diabetic medications or blood thinners such as Coumadin (warfarin), Plavix (clopidogrel), Ticlid (ticlopidine hydrochloride), Agrylin (anagrelide), Xarelto (Rivaroxaban), Pradaxa (Dabigatran), Eliquis (Apixaban), and Effient (Prasugrel). You MUST call the doctors who orders those medicines for instructions on altering the dosage before your colonoscopy. All other medications should be taken the day of the exam with a sip of water including ASPIRIN. Five (5) Days Before Your Colonoscopy Do NOT take medicines that stop diarrhea - such as Imodium, Kaopectate, or Pepto Bismol. Do NOT take fiber supplements - such as Metamucil, Citrucel, or Perdiem. Do NOT take products that contain iron - such as multi-vitamins (the label lists what is in the products). Three (3) Days Before Your Colonoscopy Do NOT eat high-fiber foods - such as popcorn, beans, seeds (flax, sunflower, quinoa), multigrain bread, nuts, salad/vegetables, or fresh and dried fruit. 1 Bowel Preparation Instructions for: Miralax-Gatorade Preparations One (1) Day Before Your Colonoscopy Only drink clear liquids the ENTIRE DAY before your colonoscopy. Do NOT eat any solid foods. Drink at least 8 ounces of clear liquids every hour after waking up. The clear liquids you can drink include: Clear Liquid (NO RED LIQUIDS) DO NOT DRINK Gatorade, Pedialyte or Powerade Clear broth or bouillon Coffee or tea (no milk or non-dairy creamer) Carbonated and non-carbonated soft drinks Yogi-Aid or other fruit flavored drinks Strained fruit juices (no pulp) Jell-O, popsicles, hard candy Water Alcohol Milk or non-dairy creamers Noodles or vegetables in soup Juice with pulp Liquid you cannot see through Do not use tobacco/vaping products Mix 1/2 of Miralax bottle (119 grams) in each 32 ounces of Gatorade bottle until dissolved. Keep cool in the refrigerator. DO NOT ADD ICE. The bowel preparation solution will be consumed in two parts. Part 1 5:00 PM - Evening before your colonoscopy Take 4 Dulcolax tablets. 6 PM - Evening before your colonoscopy Drink 32 oz. of the mixed solution. Drink an 8 oz. glass of bowel preparation every 15 minutes for a total of 4 glasses. Fifteen (15) minutes later, drink an 8 oz. glass of of clear liquids every 15 minutes for a total of 2 glasses. You may continue to drink clear liquids till midnight. Part 2 On the day of your colonoscopy you may drink clear liquids up to (three) 3 hours prior to procedure. 4 1/2 hours before your colonoscopy Take another 32 oz. bottle of mixed solution. Drink an 8 oz. glass of bowel prep every 15 minutes for a total of 4 glasses. Fifteen (15) minutes later, drink an 8 oz. glass of clear liquids every 15 minutes for a total of 2 glasses. You may continue to drink clear liquids up to (three) 3 hours before your exam. 2 01/2019 documented in this encounter [facility] 06-02-2022 History of Present illness Narrative CHIEF COMPLAINT: Patient presents with: GERD: Fecal urgency then only blood comes out, abnormal stool texture. Labs 05/16/22. Dark colored blood HPI: Gerald Staley is a 62 year old male who presents for GERD (Fecal urgency then only blood comes out, abnormal stool texture. Labs 05/16/22. Dark colored blood). Seen last for positive FOBT. Colon 2020 showed hemorrhoids/polyps. Having persistent chronic intermittent anal bleeding. Having a BM on average every day, alters between constipated/diarrhea, more persistent bleeding. Was previously having upper abd pain/heartburn which has since subsided after course of Prilosec 20 mg, no longer taking any stomach medications. Denies current abd pain, weight loss, N/V, heartburn, indigestion. Colon 2020 two polyps 4-7 mm, int hemorrhoids Component Latest Ref Rng & Units 03/03/2022 WBC 3.70 - 11.00 k/uL 10.46 RBC 4.20 - 6.00 m/uL 5.48 Hemoglobin 13.0 - 17.0 g/dL 15.9 Hematocrit 39.0 - 51.0 % 48.7 MCV 80.0 - 100.0 fL 88.9 MCH 26.0 - 34.0 pg 29.0 MCHC 30.5 - 36.0 g/dL 32.6 RDW-CV 11.5 - 15.0 % 12.9 Platelet Count 150 - 400 k/uL 265 MPV 9.0 - 12.7 fL 9.4 Neut% % 62.8 Abs Neut (ANC) 1.45 - 7.50 k/uL 6.58 Lymph% % 26.1 Abs Lymph 1.00 - 4.00 k/uL 2.73 [place]% % 9.6 Abs [place] <0.87 k/uL 1.00 (H) Eosin% % 0.4 Abs Eosin <0.46 k/uL 0.04 Baso% % 0.4 Abs Baso <0.11 k/uL 0.04 Immature Gran % % 0.7 IMMATURE GRANS (ABS) <0.10 k/uL 0.07 NRBC /100 WBC 0.0 Absolute nRBC <0.01 k/uL <0.01 DTYPE Auto Albumin 3.9 - 4.9 g/dL 4.6 Bilirubin, Total 0.2 - 1.3 mg/dL 0.7 Bilirubin, Conjug <0.2 mg/dL <0.2 Alkaline Phosphatase 38 - 113 U/L 85 AST 14 - 40 U/L 23 ALT 10 - 54 U/L 43 Protein, Total 6.3 - 8.0 g/dL 6.5 Syphilis Screen Result Nonreactive Nonreactive Syphilis Interpretation Cannot exclude recent Treponemal infection if specimen collected within 7-10 days after appearance of suspect lesions or 2-3 weeks after an exposure. Clinical correlation is required. GGT 10 - 70 U/L H. pylori IgG, Qualitative Negative Vitamin B12 232 - 1,245 pg/mL 905 Folate >4.7 ng/mL 6.9 TSH 0.270 - 4.200 mIU/L 2.410 OV 2020 Gerald Staley is a 60 year old male who presents for Change In Bowel Habits, mucous in stools, and Rectal Bleeding (h/o adenomatous colon polyps). Has had GI symptoms for the past three years. Last colonoscopy 2019 showed tubular adenoma, diverticulosis. Recommended repeat in 3 yrs. Rectal bleeding returned four weeks ago. BMs are 1-2 per day, normal consistency, mucous in stools, blood is separate from stools. Denies h/o constipation, straining w/ BMs, tenesmus. Has chronic heartburn, EGD from 2019 showed duodenitis, gastritis neg. Stomach biopsies. Is taking Prilosec 20 mg without relief. 05/29/2020 lipase, BMP, CBC, WNL, fecal occult positive, TSH elevated Takes ibuprofen as needed Never smoker 12 pack beer per week Record Review: [facility] / Outside records reviewed. PAST MEDICAL HISTORY Diagnosis Date Abnormal EKG 04/23/2017 inf [place] age undetermined Anxiety Chicken pox Colon polyps Depression ED (erectile dysfunction) Headache HTN (hypertension) Hypogonadism male 04/25/2010 Pulmonary embolism (HCC) Rectal bleed Shingles Shoulder pain pain management. PAST SURGICAL HISTORY Procedure Laterality Date COLONOSCOPY FLX DX W/COLLJ SPEC WHEN PFRMD age 40 Colonoscopy COLONOSCOPY FLX DX W/COLLJ SPEC WHEN PFRMD 06/04/2010 Colonoscopy COLONOSCOPY FLX DX W/COLLJ SPEC WHEN PFRMD 05/25/2018 Multiple Fragments of Tubular Adenoma, Diverticulosis COLONOSCOPY GEN ANES 06/27/2020 Two 4 to 7 mm polyps (adenomatous and hyperplastic ) COLSC FLX W/RMVL OF TUMOR POLYP LESION SNARE TQ 05/30/2016 adenomatous polyp - small - 5 year follow up ESOPHAGOGASTRODUODENOSCOPY TRANSORAL DIAGNOSTIC 05/25/2018 Duodenitis, Gastritis FOOT SURGERY HX Right ~ 2014 OPEN REPAIR OF ROTATOR CUFF ACUTE Right 10/2016 Rotator cuff repair - Dr. Santamaria RECONSTRUCTION ROTATOR CUFF AVULSION CHRONIC Left 03/21/2010 Dr. Stalin Clark RPR UMBILICAL HRNA 5 YRS/> REDUCIBLE 06/11/2016 simple SKIN GRAFT HX Right 1986 eyelid TONSILLECTOMY HX Childhood Allergies: ALLERGIES Allergen Reactions Bakari Inhibitors Cough Darvocet A500 [Prop* GI Upset Medications: oxyCODONE (ROXICODONE) 15 mg immediate release tablet^Take 1 tablet by mouth every 8 hours as needed for pain for up to 30 days. Do not start before May 08, 2022.^Disp: 90 tablet^Rfl: 0 morphine SR (MS CONTIN) 15 mg 12 hr tablet^Take 1 tablet by mouth once daily as needed for pain for up to 30 days. for Pain Do not start before May 08, 2022.^Disp: 30 tablet^Rfl: 0 lidocaine-prilocaine (EMLA) 2.5-2.5 % cream^APPLY TO THE AFFECTED AREA(S) THREE TIMES DAILY NEEDED FOR PAIN.^Disp: 30 g^Rfl: 4 losartan (COZAAR) 100 mg tablet^Take 1 tablet by mouth once daily.^Disp: 90 tablet^Rfl: 3 triamterene-hydroCHLOROthiazide (MAXZIDE-25MG) 37.5-25 mg per tablet^Take 1 tablet by mouth once daily.^Disp: 90 tablet^Rfl: 3 naloxone 4 mg/actuation nasal spray (NARCAN)^^Disp: ^Rfl: omeprazole (PRILOSEC) 20 mg capsule^Take 1 capsule by mouth daily before breakfast. 1/2 hr before meal.^Disp: 90 capsule^Rfl: 3 risperiDONE (RISPERDAL) 0.5 mg tablet^Take 1 tablet by mouth twice daily.^Disp: 60 tablet^Rfl: 2 FAMILY HISTORY Problem Relation Age of Onset Diabetes Mother Hypertension Mother Arthritis Mother Breast Cancer Mother Dementia Mother Cancer Father throat Asthma No Family History Colon Cancer No Family History Employer And Job Title: None on file Years Of Education Completed: Not specified Marital Status: Social History Tobacco Use Smoking status: Never Smokeless tobacco: Never Vaping Use Vaping Use: Never used Substance Use Topics Alcohol use: Yes Alcohol/week: 15.0 standard drinks Types: 6 Cans of Beer (12oz) per week Comment: 12 pack a week Drug use: Not Currently Comment: no longer using. Review of Systems: Review of Systems Respiratory: Positive for shortness of breath. Gastrointestinal: Positive for anal bleeding, blood in stool, diarrhea and rectal pain. Gas All other systems reviewed and are negative. Are you taking any blood thinners? No Physical Examination: BP 120/84 Pulse 100 Ht 165.1 cm (5' 5 ) Wt 96.2 kg (212 lb) BMI 35.28 kg/m Physical Exam Constitutional: General: He is not in acute distress. Appearance: Normal appearance. He is normal weight. He is not ill-appearing, toxic-appearing or diaphoretic. HENT: Head: Normocephalic and atraumatic. Nose: Nose normal. Eyes: General: No scleral icterus. Right eye: No discharge. Left eye: No discharge. Extraocular Movements: Extraocular movements intact. Conjunctiva/sclera: Conjunctivae normal. Pupils: Pupils are equal, round, and reactive to light. Cardiovascular: Rate and Rhythm: Normal rate and regular rhythm. Pulses: Normal pulses. Heart sounds: Normal heart sounds. No murmur heard. No friction rub. No gallop. Pulmonary: Effort: No respiratory distress. Breath sounds: Normal breath sounds. No stridor. No wheezing, rhonchi or rales. Chest: Chest wall: No tenderness. Abdominal: General: Abdomen is flat. Bowel sounds are normal. There is no distension. Palpations: Abdomen is soft. There is no mass. Tenderness: There is no abdominal tenderness. There is no right CVA tenderness, left CVA tenderness, guarding or rebound. Hernia: No hernia is present. Musculoskeletal: General: Normal range of motion. Cervical back: Normal range of motion and neck supple. Skin: General: Skin is warm and dry. Neurological: General: No focal deficit present. Mental Status: He is alert and oriented to person, place, and time. Psychiatric: Mood and Affect: Mood normal. Behavior: Behavior normal. Assessment/Plan (K62.5) Anal bleeding (primary encounter diagnosis) (K59.03) Drug induced constipation (Z86.010) History of colonic polyps 1. Anal bleeding - hydrocortisone (ANUSOL-HC) 2.5 % rectal cream; by RECTAL route twice daily for 14 days. Dispense: 28 g; Refill: 0 - COLONOSCOPY DIAGNOSTIC; Future - Start Anusol BID - Start Miralax daily - Drink plenty of fluids - Due to recent worsened sx, and hx of colonic polyps advised updated colonoscopy, if persistent bleeding consider surg consult given pts h/o hemorrhoids 2. Drug induced constipation - COLONOSCOPY DIAGNOSTIC; Future 3. History of colonic polyps I spent a total of 20 minutes on the date of the service which included preparing to see the patient, [id number] patient care, completing clinical documentation, obtaining and/or reviewing separately obtained history, performing a medically appropriate examination, counseling and educating the patient/family/caregiver, ordering medications, tests, or procedures, communicating with other HCPs (not separately reported), independently interpreting results (not separately reported), communicating results to the patient/family/caregiver, and care coordination (not separately reported). Gia Ventura PA-C June 02, 2022 2:00 PM documented in this encounter [facility] 06-02-2022 Note HNO ID: [id number] Author: Heather Patel CCC-[facility] Service: ? Author Type: Speech Language Pathologist Type: Progress Notes Filed: 06/02/2022 1:00 PM Note Text: Episode Visit Count: 2 Therapist That Will Accept/Oversee The Plan Of Care: Amanda Start of Care Date: 05/06/22 Onset Date: 02/16/21 Plan of Care Certification Date: 05/06/22 Next Certification Due Date: 07/05/22 Patient Identified by Name and Date of : Suzi [facility] SPEECH THERAPY PROGRESS REPORT PLAN OF CARE UPDATE: Impression: Communication deficits identified: Cognitive deficits Progress Toward Goals: Progressing as expected Functional gains: Increased knowledge and awareness of the need and benefit of completing home exercises to maximize cognitive linguistic skills Goals for Episode of Care Updated: 06/02/2022 Goals for Episode of Care: created on 05/06/2022 through 07/05/22 COGNITIVE GOALS In Progress- Improve categorical naming tasks at a concrete and abstract level with 80% accuracy given minimal assist. In Progress-Complete verbal/visual reasoning/organization tasks with 85% accuracy given consistent assist. In Progress-Improve working memory to WFL during simple cognitive tasks with 90% using compensatory strategies in order to recall the steps taken during a cognitive process. All goals to target the patient's overall ability to facilitate functional cognitive linguistic skills. RECOMMENDATION: Patient and/or caregiver demonstrate a solid understanding of results, recommendations, goals and plan of care. Patient and : agreed with aforementioned. [facility] Recommendations: Outpatient Speech Therapy Results and Recommendations Discussed With: Patient, Significant Other Planned Interventions, Frequency, and Duration: Planned Treatment Interventions: Cognitive-Linguistic Training (94506, [id number]), Speech Treatment ([id number]) Current Frequency: 1x every other week Duration: 6 weeks PLAN FOR NEXT VISIT: memory strategies, thought organization, deductive reasoning SUBJECTIVE: -Reports increased memory since previous session; reports he is no longer having trouble with recall or thought organization -Reports discontinuing medication from psychiatrist; advised patient to follow-up with PCP or psychiatrist prior to medication changes -Arrived with OBJECTIVE MEASURES WITH LEVEL OF FUNCTION: Cognition Cognitive Deficits: Attention Deficit, Memory Deficits Attention Deficit: Alternating, Divided Memory Deficits: Functional Executive Function Deficits: Organization, Reasoning/Inferences -Patient and appeared to demonstrate understanding of need and benefit of cognitive linguistic exercises that support brain enrichment for maximum executive functioning skills and maximum independence. -demonstrated and provided direct instruction in a variety of brain enrichment activities that support thought organization, planning, sequencing, word recall, categorization, and memory recall at home -delayed recall task for 4 visually presented items with 100% accuracy -Delayed recall of 3 verbally presented items with 50% accuracy -Benefits from semantic and contextual cues to identify presented items -Thought organization task for verbal deduction of 4 items with 60% accuracy -Training provided on benefits of recall/memory strategies to support thought organization TREATMENT: Speech/Language Therapy (68843): Skilled Intervention: Educated and instructed patient on compensatory strategies for word-finding and sequencing Educated and instructed patient on memory recall strategies such as focused attention, verbal repetition, visualization, association, and graphic skills. Current Home Program: memory strategies, word recall; uitlize written/visual aids for recall of events Billing: Speech Treatment ([id number]) Total time / Length of visit: 60 minutes Heather Patel, CCC-[facility] 06-02-2022 History of Present illness Narrative Episode Visit Count: 2 Therapist That Will Accept/Oversee The Plan Of Care: Amanda Start of Care Date: 05/06/22 Onset Date: 02/16/21 Plan of Care Certification Date: 05/06/22 Next Certification Due Date: 07/05/22 Patient Identified by Name and Date of : Yes [facility] SPEECH THERAPY PROGRESS REPORT PLAN OF CARE UPDATE: Impression: Communication deficits identified: Cognitive deficits Progress Toward Goals: Progressing as expected Functional gains: Increased knowledge and awareness of the need and benefit of completing home exercises to maximize cognitive linguistic skills Goals for Episode of Care Updated: 06/02/2022 Goals for Episode of Care: created on 05/06/2022 through 07/05/22 COGNITIVE GOALS In Progress- Improve categorical naming tasks at a concrete and abstract level with 80% accuracy given minimal assist. In Progress-Complete verbal/visual reasoning/organization tasks with 85% accuracy given consistent assist. In Progress-Improve working memory to WFL during simple cognitive tasks with 90% using compensatory strategies in order to recall the steps taken during a cognitive process. All goals to target the patient's overall ability to facilitate functional cognitive linguistic skills. RECOMMENDATION: Patient and/or caregiver demonstrate a solid understanding of results, recommendations, goals and plan of care. Patient and : agreed with aforementioned. [facility] Recommendations: Outpatient Speech Therapy Results and Recommendations Discussed With: Patient, Significant Other Planned Interventions, Frequency, and Duration: Planned Treatment Interventions: Cognitive-Linguistic Training ([id number], [id number], [id number]), Speech Treatment ([id number]) Current Frequency: 1x every other week Duration: 6 weeks PLAN FOR NEXT VISIT: memory strategies, thought organization, deductive reasoning SUBJECTIVE: -Reports increased memory since previous session; reports he is no longer having trouble with recall or thought organization -Reports discontinuing medication from psychiatrist; advised patient to follow-up with PCP or psychiatrist prior to medication changes -Arrived with OBJECTIVE MEASURES WITH LEVEL OF FUNCTION: Cognition Cognitive Deficits: Attention Deficit, Memory Deficits Attention Deficit: Alternating, Divided Memory Deficits: Functional Executive Function Deficits: Organization, Reasoning/Inferences -Patient and appeared to demonstrate understanding of need and benefit of cognitive linguistic exercises that support brain enrichment for maximum executive functioning skills and maximum independence. -demonstrated and provided direct instruction in a variety of brain enrichment activities that support thought organization, planning, sequencing, word recall, categorization, and memory recall at home -delayed recall task for 4 visually presented items with 100% accuracy -Delayed recall of 3 verbally presented items with 50% accuracy -Benefits from semantic and contextual cues to identify presented items -Thought organization task for verbal deduction of 4 items with 60% accuracy -Training provided on benefits of recall/memory strategies to support thought organization TREATMENT: Speech/Language Therapy ([id number]): Skilled Intervention: Educated and instructed patient on compensatory strategies for word-finding and sequencing Educated and instructed patient on memory recall strategies such as focused attention, verbal repetition, visualization, association, and graphic skills. Current Home Program: memory strategies, word recall; uitlize written/visual aids for recall of events Billing: Speech Treatment (76691) Total time / Length of visit: 60 minutes SHELTON Proctor documented in this encounter [facility] 05-06-2022 Note HNO ID: [id number] Author: JONE [facility]ctor[facility] Service: ? Author Type: Speech Language Pathologist Type: Progress Notes Filed: 05/06/2022 2:29 PM Note Text: Episode Visit Count: 1 Therapist That Will Accept/Oversee The Plan Of Care: Amanda Start of Care Date: 05/06/22 Onset Date: 02/16/21 Plan of Care Certification Date: 05/06/22 Next Certification Due Date: 07/05/22 Patient Identified by Name and Date of : Yes [facility] COGNITIVE LINGUISTIC EVALUATION PLAN OF CARE: Impression: Communication deficits identified: Cognitive deficits RECOMMENDATION: [facility] Recommendations: Outpatient Speech Therapy Results and Recommendations Discussed With: Patient Prognosis: Good Good: current objective clinical presentation Goals for Episode of Care: created on 05/06/2022 through 07/05/22 COGNITIVE GOALS - Improve categorical naming tasks at a concrete and abstract level with 80% accuracy given minimal assist. -Complete verbal/visual reasoning/organization tasks with 85% accuracy given consistent assist. -Improve working memory to WFL during simple cognitive tasks with 90% using compensatory strategies in order to recall the steps taken during a cognitive process. All goals to target the patient's overall ability to facilitate functional cognitive linguistic skills. Planned Interventions, Frequency, and Duration: Planned Treatment Interventions: Cognitive-Linguistic Training (80485, [id number], [id number]), Speech Treatment ([id number]) Current Frequency: 1x every other week Duration: 6 weeks PLAN FOR NEXT VISIT: memory strategies, thought organization, deductive reasoning Patient demonstrates good understanding of plan of care and treatment. The above goals and plan of care were discussed and agreed upon by patient/family. SUBJECTIVE: Gerald Staley is a 62 year old male seen today for a diagnostic. memory impairments. -Says his reports he slurs his words and gets short-winded when talking -Says he thinks he may have had a small stroke -Reports he forgets what he is doing or what he is going to get when he walks throughout house -Got mixed up when driving, went the wrong way and drove for a while before he realized -Reports this has been going on for a few years he thinks, but unable to report exactly when it began -Was hurt at work in 2016; was working at a [employer] company -Lives with at home, son at home too - handles checkbook, says he has been mixing things up with finances -No difficulty with managing medication -Still drives -States he has noticed improvement in memory and overall cognition since beginning to workout; attributes to depression Patient Goals: did not state OBJECTIVE MEASURES WITH LEVEL OF FUNCTION: Portions of the following standardized testing were utilized in the evaluation of the patient: [place] Diagnostic Aphasia and Western Aphasia Battery. 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, reports he did not do well in school after TBI (was in a coma) Speech/Voice/Language Speech Production: Within Functional Limits Expressive and Receptive Language: Within Functional Limits Except Auditory Comprehension Deficits: 3-Step Commands 3-Step Commands - (%): 90 Verbal Expression Deficits: Analogies, Word Deductions Analogies - (%): 75 % Word Deductions - (%): 75 % Reading Comprehension Deficits: (baseline deficits) Written Expression Deficits: (reports baseline deficits) COGNITIVE-LINGUISTIC SKILLS Cognition Cognitive Status: Within Functional Limits For Current Session Except Cognitive Deficits: Attention Deficit, Memory Deficits, Executive Function Deficit Attention Deficit: Alternating, Selective Memory Deficits: Functional, Short Term Executive Function Deficits: Organization, Problem Solving, Math Calculations Organization Comments: higher level thought organization Cognitive Clinical Tests and Screens: SLUMS SLUMS Level of Education: Less than high school Orientation (week): 1 Orientation (year): 1 Orientation (state): 1 Calculations: 0 Namin Short-Term Memory: 1 Attention/Sequencin Visual-Spatial Skills (clock): 4 Visual-Spatial Skills: 2 Attention/Memory: 0 SLUMS Total Score ( /30): 13 Education: Education Learning Preferences: Explanation Barriers: Cognitive Limitations Learning/Educational Needs: Cognitive Skills, Language Skills Education Provided: Yes, see treatment interventions for education provided Education Provided To: Patient Education Mode/Type: Explanation/Discussion Response to Education/Teach Back: States/Identifies TREATMENT: Evaluation: Eval Sound Production with Language Expression and Loader Operator/Ground Leader ([id number]) Speech/Language Therapy ([id number]): Skilled Intervention: Educated and instr (more content not included)... [facility] 05-06-2022 History of Present illness Narrative Episode Visit Count: 1 Therapist That Will Accept/Oversee The Plan Of Care: Amanda Start of Care Date: 05/06/22 Onset Date: 02/16/21 Plan of Care Certification Date: 05/06/22 Next Certification Due Date: 07/05/22 Patient Identified by Name and Date of : Yes [facility] COGNITIVE LINGUISTIC EVALUATION PLAN OF CARE: Impression: Communication deficits identified: Cognitive deficits RECOMMENDATION: [facility] Recommendations: Outpatient Speech Therapy Results and Recommendations Discussed With: Patient Prognosis: Good Good: current objective clinical presentation Goals for Episode of Care: created on 05/06/2022 through 07/05/22 COGNITIVE GOALS - Improve categorical naming tasks at a concrete and abstract level with 80% accuracy given minimal assist. -Complete verbal/visual reasoning/organization tasks with 85% accuracy given consistent assist. -Improve working memory to WFL during simple cognitive tasks with 90% using compensatory strategies in order to recall the steps taken during a cognitive process. All goals to target the patient's overall ability to facilitate functional cognitive linguistic skills. Planned Interventions, Frequency, and Duration: Planned Treatment Interventions: Cognitive-Linguistic Training (80804, [id number], [id number]), Speech Treatment (31563) Current Frequency: 1x every other week Duration: 6 weeks PLAN FOR NEXT VISIT: memory strategies, thought organization, deductive reasoning Patient demonstrates good understanding of plan of care and treatment. The above goals and plan of care were discussed and agreed upon by patient/family. SUBJECTIVE: Gerald Staley is a 62 year old male seen today for a diagnostic. memory impairments. -Says his reports he slurs his words and gets short-winded when talking -Says he thinks he may have had a small stroke -Reports he forgets what he is doing or what he is going to get when he walks throughout house -Got mixed up when driving, went the wrong way and drove for a while before he realized -Reports this has been going on for a few years he thinks, but unable to report exactly when it began -Was hurt at work in 2016; was working at a [employer] company -Lives with at home, son at home too - handles checkbook, says he has been mixing things up with finances -No difficulty with managing medication -Still drives -States he has noticed improvement in memory and overall cognition since beginning to workout; attributes to depression Patient Goals: did not state OBJECTIVE MEASURES WITH LEVEL OF FUNCTION: Portions of the following standardized testing were utilized in the evaluation of the patient: [place] Diagnostic Aphasia and Western Aphasia Battery. 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, reports he did not do well in school after TBI (was in a coma) Speech/Voice/Language Speech Production: Within Functional Limits Expressive and Receptive Language: Within Functional Limits Except Auditory Comprehension Deficits: 3-Step Commands 3-Step Commands - (%): 90 Verbal Expression Deficits: Analogies, Word Deductions Analogies - (%): 75 % Word Deductions - (%): 75 % Reading Comprehension Deficits: (baseline deficits) Written Expression Deficits: (reports baseline deficits) COGNITIVE-LINGUISTIC SKILLS Cognition Cognitive Status: Within Functional Limits For Current Session Except Cognitive Deficits: Attention Deficit, Memory Deficits, Executive Function Deficit Attention Deficit: Alternating, Selective Memory Deficits: Functional, Short Term Executive Function Deficits: Organization, Problem Solving, Math Calculations Organization Comments: higher level thought organization Cognitive Clinical Tests and Screens: SLUMS SLUMS Level of Education: Less than high school Orientation (week): 1 Orientation (year): 1 Orientation (state): 1 Calculations: 0 Namin Short-Term Memory: 1 Attention/Sequencin Visual-Spatial Skills (clock): 4 Visual-Spatial Skills: 2 Attention/Memory: 0 SLUMS Total Score ( /30): 13 Education: Education Learning Preferences: Explanation Barriers: Cognitive Limitations Learning/Educational Needs: Cognitive Skills, Language Skills Education Provided: Yes, see treatment interventions for education provided Education Provided To: Patient Education Mode/Type: Explanation/Discussion Response to Education/Teach Back: States/Identifies TREATMENT: Evaluation: Eval Sound Production with Language Expression and Loader Operator/Ground Leader ([id number]) Speech/Language Therapy ([id number]): Skilled Intervention: Educated and instructed patient on compensatory strategies for word-finding Educated and instructed patient on memory recall strategies such as focused attention, active repetition, visualization, and association. Current Home Program: memory strategies, word recall Billing: Eval Sound Production with Language Expression and Loader Operator/Ground Leader ([id number]) and Speech Treatment ([id number]) Total time / Length of visit: 60 minutes Heather Patel CCC-[facility] documented in this encounter [facility] 04-28-2022 Note HNO ID: [id number] Author: Anna Foley APRN.TWISTING FRAME CHANGER Service: ? Author Type: Clinical Nurse Specialist Type: Progress Notes Filed: 04/28/2022 2:57 PM Note Text: SUBJECTIVE: Gerald Staley presents to [facility] Pain Management Department for a follow-up appointment for neck and shoulder pain Last seen by cony 01/28/22 with plan of care bilateral shoulder injecitons, MS, oxycodone, PT Last procedure 12/15/22 bilateral shoulder injections Pain level:8/10 States had good relief initially until went home and started working around house Denies ED visits or hospitalizations since last office visit Reports pain worse with moving both arms, standing Reports pain better with medications, rest Describes pain in neck as constant ache that becomes sharp at times Describes pain in both shoulders as constant radiating down both arms States has numbness in hands at times Denies falls REVIEW OF SYSTEMS: GENERAL: No weight loss, malaise or fevers. HEENT: Negative for frequent or significant headaches. RESPIRATORY: Negative for cough, wheezing or shortness of breath. CARDIOVASCULAR: Negative for chest pain, leg swelling or palpitations. GI: Negative for abdominal discomfort, Positive for blood in stools or black stools No change in bowel habits.Unable to have scopes done due to being on blood thinner. Coming off blood thinners next week :denies issues Past Medical History: PAST MEDICAL HISTORY Diagnosis Date Abnormal EKG 04/23/2017 inf [place] age undetermined Anxiety Chicken pox Colon polyps Depression ED (erectile dysfunction) Headache HTN (hypertension) Hypogonadism male 04/25/2010 Pulmonary embolism (HCC) Rectal bleed Shingles Shoulder pain pain management. Past Surgical History: PAST SURGICAL HISTORY Procedure Laterality Date COLONOSCOPY FLX DX W/COLLJ SPEC WHEN PFRMD age 40 Colonoscopy COLONOSCOPY FLX DX W/COLLJ SPEC WHEN PFRMD 06/04/2010 Colonoscopy COLONOSCOPY FLX DX W/COLLJ SPEC WHEN PFRMD 05/25/2018 Multiple Fragments of Tubular Adenoma, Diverticulosis COLONOSCOPY GEN ANES 06/27/2020 Two 4 to 7 mm polyps (adenomatous and hyperplastic ) COLSC FLX W/RMVL OF TUMOR POLYP LESION SNARE TQ 05/30/2016 adenomatous polyp - small - 5 year follow up ESOPHAGOGASTRODUODENOSCOPY TRANSORAL DIAGNOSTIC 05/25/2018 Duodenitis, Gastritis FOOT SURGERY HX Right ~ 2014 OPEN REPAIR OF ROTATOR CUFF ACUTE Right 10/2016 Rotator cuff repair - Dr. Santamaria RECONSTRUCTION ROTATOR CUFF AVULSION CHRONIC Left 03/21/2010 Dr. Stalin Clark RPR UMBILICAL HRNA 5 YRS/> REDUCIBLE 06/11/2016 simple SKIN GRAFT HX Right 1987 eyelid TONSILLECTOMY HX Childhood Family History: FAMILY HISTORY Problem Relation Age of Onset Diabetes Mother Hypertension Mother Arthritis Mother Breast Cancer Mother Dementia Mother Cancer Father throat Asthma No Family History Social History: Social History Tobacco Use Smoking status: Never Smokeless tobacco: Never Vaping Use Vaping Use: Never used Substance Use Topics Alcohol use: Yes Alcohol/week: 15.0 standard drinks Types: 6 Cans of Beer (12oz) per week Comment: 12 pack a week Drug use: Not Currently Comment: no longer using. OBJECTIVE: BP 115/85 Pulse 92 SpO2 99% PHYSICAL EXAMINATION: General appearance: Well appearing, in no acute distress, alert. Psych: Mood and affect appropriate. Skin: Skin color, texture, turgor normal, no rashes or lesions. Pulm: no conversational shortness of breath or cough GI: Abdomen soft and non-tender. Musculoskeletal: Cervical range of motion without restriction but complaints of tenderness with all motion. Negative cervical facet tenderness bilaterally. Negative Spurling sign bilaterally. Firm equal grasp bilaterally. 5/5 bilateral upper extremity muscle strength. Bilateral shoulder range of motion without restriction but complains pf tenderness with all motion on the right. Positive Kumar sign on right. Negative on left. ASSESSMENT: (Z79.899) High risk medication use (primary encounter diagnosis) (M19.011, M19.012) Osteoarthritis of both shoulders, unspecified osteoarthritis type (G89.4) Chronic pain syndrome (M75.40) Rotator cuff impingement syndrome, unspecified laterality (M50.30) Other cervical disc degeneration, unspecified cervical region PLAN: Continue MS contin and oxycodone. This helps patient perform ADL, interact with family and friends. OARRS reviewedd and consistent. UDS +THC but uses CBD Order UDS Continue lidocaine-prilocaine cream Encouraged to follow instructions of PCP and specialists Encouraged to start PT for cervical spine pain to order MRI Order cervical spine xray Followup in 3 months The above plan and management options were discussed at length with the patient. The patient is in agreement with the above and verbalized understanding. Anna Foley APRN.RADHA April 28, 2022 [facility] 04-28-2022 Instructions Anna Foley APRN.TWISTING FRAME CHANGER - 04/28/2022 2:46 PM EDT Continue MS contin and oxycodone. . This helps patient perform ADL, interact with family and friends. OARRS reviewedd and consistent. UDS +THC but uses CBD Order UDS Continue lidocaine-prilocaine cream Encouraged to follow instructions of PCP and specialists Encouraged to start PT for cervical spine pain to order MRI Order cervical spine xray Followup in 3 months documented in this encounter [facility] 04-28-2022 History of Present illness Narrative SUBJECTIVE: Gerald Staley presents to [facility] Pain Management Department for a follow-up appointment for neck and shoulder pain Last seen by cony 01/28/22 with plan of care bilateral shoulder injecitons, MS, oxycodone, PT Last procedure 01/30/22 bilateral shoulder injections Pain level:8/10 States had good relief initially until went home and started working around house Denies ED visits or hospitalizations since last office visit Reports pain worse with moving both arms, standing Reports pain better with medications, rest Describes pain in neck as constant ache that becomes sharp at times Describes pain in both shoulders as constant radiating down both arms States has numbness in hands at times Denies falls REVIEW OF SYSTEMS: GENERAL: No weight loss, malaise or fevers. HEENT: Negative for frequent or significant headaches. RESPIRATORY: Negative for cough, wheezing or shortness of breath. CARDIOVASCULAR: Negative for chest pain, leg swelling or palpitations. GI: Negative for abdominal discomfort, Positive for blood in stools or black stools No change in bowel habits.Unable to have scopes done due to being on blood thinner. Coming off blood thinners next week :denies issues Past Medical History: PAST MEDICAL HISTORY Diagnosis Date Abnormal EKG 04/23/2017 inf [place] age undetermined Anxiety Chicken pox Colon polyps Depression ED (erectile dysfunction) Headache HTN (hypertension) Hypogonadism male 04/25/2010 Pulmonary embolism (HCC) Rectal bleed Shingles Shoulder pain pain management. Past Surgical History: PAST SURGICAL HISTORY Procedure Laterality Date COLONOSCOPY FLX DX W/COLLJ SPEC WHEN PFRMD age 40 Colonoscopy COLONOSCOPY FLX DX W/COLLJ SPEC WHEN PFRMD 06/04/2010 Colonoscopy COLONOSCOPY FLX DX W/COLLJ SPEC WHEN PFRMD 05/25/2018 Multiple Fragments of Tubular Adenoma, Diverticulosis COLONOSCOPY GEN ANES 06/27/2020 Two 4 to 7 mm polyps (adenomatous and hyperplastic ) COLSC FLX W/RMVL OF TUMOR POLYP LESION SNARE TQ 05/30/2016 adenomatous polyp - small - 5 year follow up ESOPHAGOGASTRODUODENOSCOPY TRANSORAL DIAGNOSTIC 05/25/2018 Duodenitis, Gastritis FOOT SURGERY HX Right ~ 2014 OPEN REPAIR OF ROTATOR CUFF ACUTE Right 10/2016 Rotator cuff repair - Dr. Santamaria RECONSTRUCTION ROTATOR CUFF AVULSION CHRONIC Left 03/21/2010 Dr. Stalin Clark RPR UMBILICAL HRNA 5 YRS/> REDUCIBLE 06/11/2016 simple SKIN GRAFT HX Right 1987 eyelid TONSILLECTOMY HX Childhood Family History: FAMILY HISTORY Problem Relation Age of Onset Diabetes Mother Hypertension Mother Arthritis Mother Breast Cancer Mother Dementia Mother Cancer Father throat Asthma No Family History Social History: Social History Tobacco Use Smoking status: Never Smokeless tobacco: Never Vaping Use Vaping Use: Never used Substance Use Topics Alcohol use: Yes Alcohol/week: 15.0 standard drinks Types: 6 Cans of Beer (12oz) per week Comment: 12 pack a week Drug use: Not Currently Comment: no longer using. OBJECTIVE: BP 115/85 Pulse 92 SpO2 99% PHYSICAL EXAMINATION: General appearance: Well appearing, in no acute distress, alert. Psych: Mood and affect appropriate. Skin: Skin color, texture, turgor normal, no rashes or lesions. Pulm: no conversational shortness of breath or cough GI: Abdomen soft and non-tender. Musculoskeletal: Cervical range of motion without restriction but complaints of tenderness with all motion. Negative cervical facet tenderness bilaterally. Negative Spurling sign bilaterally. Firm equal grasp bilaterally. 5/5 bilateral upper extremity muscle strength. Bilateral shoulder range of motion without restriction but complains pf tenderness with all motion on the right. Positive Kumar sign on right. Negative on left. ASSESSMENT: (Z79.899) High risk medication use (primary encounter diagnosis) (M19.011, M19.012) Osteoarthritis of both shoulders, unspecified osteoarthritis type (G89.4) Chronic pain syndrome (M75.40) Rotator cuff impingement syndrome, unspecified laterality (M50.30) Other cervical disc degeneration, unspecified cervical region PLAN: Continue MS contin and oxycodone. This helps patient perform ADL, interact with family and friends. OARRS reviewedd and consistent. UDS +THC but uses CBD Order UDS Continue lidocaine-prilocaine cream Encouraged to follow instructions of PCP and specialists Encouraged to start PT for cervical spine pain to order MRI Order cervical spine xray Followup in 3 months The above plan and management options were discussed at length with the patient. The patient is in agreement with the above and verbalized understanding. Anna Foley APRN.CNS April 28, 2022 documented in this encounter [facility] 04-16-2022 Note HNO ID: [id number] Author: Kevin Cary MD Service: ? Author Type: Physician Type: Progress Notes Filed: 04/16/2022 4:25 PM Note Text: Patient presents with: Follow Up HPI: Patient presents today for office visit for follow up. Saw Dr. Saucedo with Neurology on 04/15/22. He is forgetful for a year or more, before that it was little things that progressed more than not finding keys Doesn't remember his birthday and wedding anniversary. Even when he is talking not able to remember what he was talking about. Drove 2 hours before realizing he was lost. also confirming information, he cannot take stress. Repeating the same questions again and again,short term memory impaired. Very irritable and has anxiety.Headaches are everyday now. Complains of a headache currently during visit. Stress brings them on. MRI 03/28/22 showed: Subcentimeter suspected cavernous malformation right anterior med. Mild microvascular ischemic change and moderately advanced volume loss for the patient's age. Neurology will be setting up for speech therapy, neuropsych and doing an eeg. Every now and then still has bleeding from his rectum. Blood is prominent more so with stool now. Has not seen G.I since December. No bloody or black stools. He is not taking his prilosec. Last had an egd several years ago. Still with some epigastric pain that makes it worse. He was to follow with Dr. Etienne. Has been bothering him since summer on and off. Has had lipase and h pylori in the past. He has around a dozen pills left of his eliquis and will be able to stop. Still following with pain management, cardiology and psychiatry. See previous ov: Recurring bleeding from rectum. Blood is prominent with or without stool. Intermittently feels discomfort in abdomen with bloating and lots of gas. Has urge that he has to have a bowel movement and it's nothing but blood. Feels fatigued. Saw Dr. Etienne on 01/14/22. Dx with internal hemorrhoids. Does not want to perform hemorrhoidectomy due to being on Eliquis. Discussed that if the bleeding becomes too bad, we could hold the eliquis for maybe a day or 2 for procure. Has seen see Dr Etienne for the same. He is to follow up. Complains today of headaches over the past couple months along with still having intermittent shortness of breath, and lightheadedness. Has chest pain during panic attacks. He had an appt with cardiology. He apparently did not keep that appt again. Will complete six months of tx for his PE in April. Was likely provoked. Followed covid infection. Has noted worsening memory for over a year. Has a hx of heavy drinking per patient for a number of years. Could drink a 12 pack of beer several times a week Has family hx of dementia No new focal neuro issues. Predates covid. Headaches have been mild but persistent and daily MEDICATIONS: Current Outpatient Medications Medication Sig morphine SR (MS CONTIN) 15 mg 12 hr tablet Take 1 tablet by mouth once daily as needed for pain for up to 30 days. for Pain Do not start before April 08, 2022. oxyCODONE (ROXICODONE) 15 mg immediate release tablet Take 1 tablet by mouth every 8 hours as needed for pain for up to 30 days. Do not start before April 08, 2022. risperiDONE (RISPERDAL) 0.5 mg tablet Take 1 tablet by mouth twice daily. lidocaine-prilocaine (EMLA) 2.5-2.5 % cream APPLY TO THE AFFECTED AREA(S) THREE TIMES DAILY NEEDED FOR PAIN. losartan (COZAAR) 100 mg tablet Take 1 tablet by mouth once daily. triamterene-hydroCHLOROthiazide (MAXZIDE-25MG) 37.5-25 mg per tablet Take 1 tablet by mouth once daily. apixaban (ELIQUIS) 5 mg tab(s) Take 1 tablet by mouth twice daily. naloxone 4 mg/actuation nasal spray (NARCAN) Current Facility-Administered Medications Medication Dose Route Frequency perflutren lipid microspheres 1.3 mL in NaCl (PF) 0.9% 10 mL injection (DEFINITY) INTRAVENOUS DIRECTED PRN sodium chloride 0.9 % (flush) 10 mL (BD POSIFLUSH) 10 mL INTRAVENOUS DIRECTED PRN ALLERGIES: ALLERGIES Allergen Reactions Bakari Inhibitors Cough Darvocet A500 [Prop* GI Upset PAST MEDICAL HISTORY Diagnosis Date Abnormal EKG 04/23/2017 inf [place] age undetermined Anxiety Chicken pox Colon polyps Depression ED (erectile dysfunction) Headache HTN (hypertension) Hypogonadism male 04/25/2010 Pulmonary embolism (HCC) Rectal bleed Shingles Shoulder pain pain management. PAST SURGICAL HISTORY Procedure Laterality Date COLONOSCOPY FLX DX W/COLLJ SPEC WHEN PFRMD age 40 Colonoscopy COLONOSCOPY FLX DX W/COLLJ SPEC WHEN PFRMD 06/04/2010 Colonoscopy COLONOSCOPY FLX DX W/COLLJ SPEC WHEN PFRMD 05/25/2018 Multiple Fragments of Tubular Adenoma, Diverticulosis COLONOSCOPY GEN ANES 06/27/2020 Two 4 to 7 mm polyps (adenomatous and hyperplastic ) COLSC FLX W/RMVL OF TUMOR POLYP LESION SNARE TQ 05/30/2016 adenomatous polyp - small - 5 year follow up (more content not included)... [facility] 04-16-2022 History of Present illness Narrative Patient presents with: Follow Up HPI: Patient presents today for office visit for follow up. Saw Dr. Saucedo with Neurology on 04/15/22. He is forgetful for a year or more, before that it was little things that progressed more than not finding keys Doesn't remember his birthday and wedding anniversary. Even when he is talking not able to remember what he was talking about. Drove 2 hours before realizing he was lost. also confirming information, he cannot take stress. Repeating the same questions again and again,short term memory impaired. Very irritable and has anxiety.Headaches are everyday now. Complains of a headache currently during visit. Stress brings them on. MRI 03/28/22 showed: Subcentimeter suspected cavernous malformation right anterior med. Mild microvascular ischemic change and moderately advanced volume loss for the patient's age. Neurology will be setting up for speech therapy, neuropsych and doing an eeg. Every now and then still has bleeding from his rectum. Blood is prominent more so with stool now. Has not seen G.I since December. No bloody or black stools. He is not taking his prilosec. Last had an egd several years ago. Still with some epigastric pain that makes it worse. He was to follow with Dr. Etienne. Has been bothering him since summer on and off. Has had lipase and h pylori in the past. He has around a dozen pills left of his eliquis and will be able to stop. Still following with pain management, cardiology and psychiatry. See previous ov: Recurring bleeding from rectum. Blood is prominent with or without stool. Intermittently feels discomfort in abdomen with bloating and lots of gas. Has urge that he has to have a bowel movement and it's nothing but blood. Feels fatigued. Saw Dr. Etienne on 01/14/22. Dx with internal hemorrhoids. Does not want to perform hemorrhoidectomy due to being on Eliquis. Discussed that if the bleeding becomes too bad, we could hold the eliquis for maybe a day or 2 for procure. Has seen see Dr Etienne for the same. He is to follow up. Complains today of headaches over the past couple months along with still having intermittent shortness of breath, and lightheadedness. Has chest pain during panic attacks. He had an appt with cardiology. He apparently did not keep that appt again. Will complete six months of tx for his PE in April. Was likely provoked. Followed covid infection. Has noted worsening memory for over a year. Has a hx of heavy drinking per patient for a number of years. Could drink a 12 pack of beer several times a week Has family hx of dementia No new focal neuro issues. Predates covid. Headaches have been mild but persistent and daily MEDICATIONS: Current Outpatient Medications Medication Sig morphine SR (MS CONTIN) 15 mg 12 hr tablet Take 1 tablet by mouth once daily as needed for pain for up to 30 days. for Pain Do not start before April 08, 2022. oxyCODONE (ROXICODONE) 15 mg immediate release tablet Take 1 tablet by mouth every 8 hours as needed for pain for up to 30 days. Do not start before April 08, 2022. risperiDONE (RISPERDAL) 0.5 mg tablet Take 1 tablet by mouth twice daily. lidocaine-prilocaine (EMLA) 2.5-2.5 % cream APPLY TO THE AFFECTED AREA(S) THREE TIMES DAILY NEEDED FOR PAIN. losartan (COZAAR) 100 mg tablet Take 1 tablet by mouth once daily. triamterene-hydroCHLOROthiazide (MAXZIDE-25MG) 37.5-25 mg per tablet Take 1 tablet by mouth once daily. apixaban (ELIQUIS) 5 mg tab(s) Take 1 tablet by mouth twice daily. naloxone 4 mg/actuation nasal spray (NARCAN) Current Facility-Administered Medications Medication Dose Route Frequency perflutren lipid microspheres 1.3 mL in NaCl (PF) 0.9% 10 mL injection (DEFINITY) INTRAVENOUS DIRECTED PRN sodium chloride 0.9 % (flush) 10 mL (BD POSIFLUSH) 10 mL INTRAVENOUS DIRECTED PRN ALLERGIES: ALLERGIES Allergen Reactions Bakari Inhibitors Cough Darvocet A500 [Prop* GI Upset PAST MEDICAL HISTORY Diagnosis Date Abnormal EKG 04/23/2017 inf [place] age undetermined Anxiety Chicken pox Colon polyps Depression ED (erectile dysfunction) Headache HTN (hypertension) Hypogonadism male 04/25/2010 Pulmonary embolism (HCC) Rectal bleed Shingles Shoulder pain pain management. PAST SURGICAL HISTORY Procedure Laterality Date COLONOSCOPY FLX DX W/COLLJ SPEC WHEN PFRMD age 40 Colonoscopy COLONOSCOPY FLX DX W/COLLJ SPEC WHEN PFRMD 06/04/2010 Colonoscopy COLONOSCOPY FLX DX W/COLLJ SPEC WHEN PFRMD 05/25/2018 Multiple Fragments of Tubular Adenoma, Diverticulosis COLONOSCOPY GEN ANES 06/27/2020 Two 4 to 7 mm polyps (adenomatous and hyperplastic ) COLSC FLX W/RMVL OF TUMOR POLYP LESION SNARE TQ 05/30/2016 adenomatous polyp - small - 5 year follow up ESOPHAGOGASTRODUODENOSCOPY TRANSORAL DIAGNOSTIC 05/25/2018 Duodenitis, Gastritis FOOT SURGERY HX Right ~ 2014 OPEN REPAIR OF ROTATOR CUFF ACUTE Right 10/2016 Rotator cuff repair - Dr. Santamaria RECONSTRUCTION ROTATOR CUFF AVULSION CHRONIC Left 03/21/2010 Dr. Stalin Clark RPR UMBILICAL HRNA 5 YRS/> REDUCIBLE 06/11/2016 simple SKIN GRAFT HX Right 1986 eyelid TONSILLECTOMY HX Childhood FAMILY HISTORY Problem Relation Age of Onset Diabetes Mother Hypertension Mother Arthritis Mother Breast Cancer Mother Dementia Mother Cancer Father throat Asthma No Family History Social History Tobacco Use Smoking status: Never Smokeless tobacco: Never Vaping Use Vaping Use: Never used Substance Use Topics Alcohol use: Yes Alcohol/week: 15.0 standard drinks Types: 6 Cans of Beer (12oz) per week Comment: 12 pack a week Drug use: Not Currently Comment: no longer using. Reviewed current medications, allergies, past medical history, surgical history, family history and social history today. REVIEW OF SYSTEMS All other reviewed and negative other than HPI. VITALS: BP 110/70 Pulse 66 Ht 165.1 cm (5' 5 ) Wt 96.2 kg (212 lb) SpO2 96% BMI 35.28 kg/m Last 4 Encounter Wt Readings: Date: Wt: 04/15/2022 96.6 kg (213 lb) 04/02/2022 96.6 kg (213 lb) 03/03/2022 98 kg (216 lb) 01/29/2022 101.6 kg (224 lb) PHYSICAL EXAMINATION: General appearance: Well appearing, alert, in no acute distress, well-hydrated, well nourished. Skin: Skin color, texture, turgor normal, no suspicious rashes or lesions Head: Normocephalic, no masses, lesions, tenderness or abnormalities Lungs: Lungs clear to auscultation. No wheezing, rhonchi, rales Heart: RRR without murmur, gallop, or rubs. No ectopy Abdomen: Normal abdominal exam, Abdomen soft, non-tender. Bowel sounds normal. No masses, organomegaly Extremities: No deformities, edema, skin discoloration, clubbing or cyanosis. Good capillary refill. Musculoskeletal: No joint swelling, deformity, or tenderness ASSESSMENT/PLAN: 1. Essential hypertension - ICD9: 401.9, ICD10: I10 (primary diagnosis) - Continue current medication(s) - Goal of BP <130/80 2. GERD without esophagitis - ICD9: 530.81, ICD10: K21.9 - resume prilosec. See surgery. He is due to follow up. - CONSULT TO GENERAL SURGERY - OMEPRAZOLE 20 MG CAPSULE,DELAYED RELEASE 3. Mild cognitive impairment with memory loss - ICD9: 331.83, ICD10: G31.84 - per neuro 4. Other acute pulmonary embolism without acute cor pulmonale (HCC) - ICD9: 415.19, ICD10: I26.99 - finish eliquis over next week. Do labs three to four weeks after. Call if any issues. - HYPERCOAG DIAG PNL Kevin Cary MD documented in this encounter [facility] 04-15-2022 Note HNO ID: [id number] Author: Remington Saucedo MD Service: ? Author Type: Physician Type: Progress Notes Filed: 04/24/2022 10:35 AM Note Text: April 15, 2022 Accompanied by Subjective HISTORY AND PHYSICAL Gerald Staley 61 year old man with cognitive impairment ,he is forgetful For a year or more ,before that it was little things that progressed more than not finding keys Misplacing things. Doesn't remember his birthday and wedding anniversary,used to remember them Even when he is talking not able to remember what he was talking about , Drove 2 hours before realizing he was lost . also confirming information ,she added he cannot take stress well and it affects his cognition . Repeating the same questions again and again ,short term memory impaired , Irritability and anxiety . 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 Daily headache,since 2016 bifrontal tylenol helped and now not helping He has interrupted sleep ,he has no syncopal episode Recently the risperidone dose was increased ,not sure if that's a cause of more confusion Head traumas twice as well as child ,he suffered head trauma with loss of consciousness and had nora swelling Was in a coma for a week He also had traumatic facial injuries ,breaking nose three times Review of Systems Review of Systems Constitutional Positive for Fatigue Eyes Positive for Change in vison not corrected by glasses Hent Positive for Recent change in speech or voice Cardiovascular Positive for Chest Pain and Lightheadedness Respiratory Positive for SOB at rest and SOB with exertion GI Positive for Blood in Stool and Nausea/Vomiting Positive for Urgency and Sexual Dysfunction Endocrine Positive for Excessive Thirst Musculoskeletal Positive for Back Pain, Joint Swelling, Stiff Joints and Muscle Pain Integumentary: Negative Heme/Lymph Positive for Prolonged Bleeding and Easy Bruising Allergy/Immunologic: Negative Neurologic Positive for Memory Problems, Headache, Numbness/Tingling and Weakness Psychiatric Positive for Stress or Conflicts, Depression, Anxiety, Irritability and Hallucinations Patient's Review of Systems has been reviewed with the patient and updated as appropriate. Objective 04/15/22 1415 BP: 121/83 BP Site: Right Arm BP Position: Sitting BP Cuff Size: Regular Adult Pulse: (!) 58 Resp: 16 SpO2: 97% Weight: 96.6 kg (213 lb) Height: 165.1 cm (5' 5 ) Physical Exam EXAM: NOSE: no erythema or exudate PHARYNX: normal, no erythema NECK: supple and no adenopathy CHEST: Normal chest wall exam Neurological Exam MENTAL STATUS: Alert, oriented to person, place and time and Follows commands CRANIAL NERVES: PERRLA, EOM's intact, Extraocular movements intact, Facial sensation intact, Face symmetric, No dysarthria, Palate elevates symmetrically, Tongue protrudes midline, and Shoulder shrug intact and symmetric MOTOR: No drift and Normal tone MOTOR STRENGTH: Upper and lower extremity 5/5 bilaterally REFLEXES: UE and LE reflexes are equal and reactive SENSATION: Intact light touch COORDINATION: Finger-to- nose-finger intact bilaterally GAIT: Normal-based PAST MEDICAL HISTORY Diagnosis Date Abnormal EKG 04/23/2017 inf [place] age undetermined Anxiety Chicken pox Colon polyps Depression ED (erectile dysfunction) Headache HTN (hypertension) Hypogonadism male 04/25/2010 Pulmonary embolism (HCC) Rectal bleed Shingles Shoulder pain pain management. Current Outpatient Medications Medication Sig Dispense Refill morphine SR (MS CONTIN) 15 mg 12 hr tablet Take 1 tablet by mouth once daily as needed for pain for up to 30 days. for Pain Do not start before April 08, 2022. 30 tablet 0 oxyCODONE (ROXICODONE) 15 mg immediate release tablet Take 1 tablet by mouth every 8 hours as needed for pain for up to 30 days. Do not start before April 08, 2022. 90 tablet 0 risperiDONE (RISPERDAL) 0.5 mg tablet Take 1 tablet by mouth twice daily. 60 tablet 2 lidocaine-prilocaine (EMLA) 2.5-2.5 % cream APPLY TO THE AFFECTED AREA(S) THREE TIMES DAILY NEEDED FOR PAIN. 30 g 4 losartan (COZAAR) 100 mg tablet Take 1 tablet by mouth once daily. 90 tablet 3 apixaban (ELIQUIS) 5 mg tab(s) Take 1 tablet by mouth twice daily. 60 tablet 5 lamoTRIgine (LAMICTAL) 150 mg tablet Take 1 tablet by mouth once daily. (Patient not taking: Reported on 04/15/2022) 30 tablet 2 polyethylene glycol 3350 (MIRALAX) 17 gram/dose powder Dissolve dose in 4 - 8 ounces of liquid and take as directed. (Patient not taking: Reported on 04/15/2022) 765 g 1 triamterene-hydroCHLOROthiazide (MAXZIDE-25MG) 37.5-25 mg per tablet Take 1 tablet by mouth once daily. 90 ta (more content not included)... [facility] 04-15-2022 History of Present illness Narrative April 15, 2022 Accompanied by Subjective HISTORY AND PHYSICAL Gerald Staley 61 year old man with cognitive impairment ,he is forgetful For a year or more ,before that it was little things that progressed more than not finding keys Misplacing things. Doesn't remember his birthday and wedding anniversary,used to remember them Even when he is talking not able to remember what he was talking about , Drove 2 hours before realizing he was lost . also confirming information ,she added he cannot take stress well and it affects his cognition . Repeating the same questions again and again ,short term memory impaired , Irritability and anxiety . 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 Daily headache,since 2016 bifrontal tylenol helped and now not helping He has interrupted sleep ,he has no syncopal episode Recently the risperidone dose was increased ,not sure if that's a cause of more confusion Head traumas twice as well as child ,he suffered head trauma with loss of consciousness and had nora swelling Was in a coma for a week He also had traumatic facial injuries ,breaking nose three times Review of Systems Review of Systems Constitutional Positive for Fatigue Eyes Positive for Change in vison not corrected by glasses Hent Positive for Recent change in speech or voice Cardiovascular Positive for Chest Pain and Lightheadedness Respiratory Positive for SOB at rest and SOB with exertion GI Positive for Blood in Stool and Nausea/Vomiting Positive for Urgency and Sexual Dysfunction Endocrine Positive for Excessive Thirst Musculoskeletal Positive for Back Pain, Joint Swelling, Stiff Joints and Muscle Pain Integumentary: Negative Heme/Lymph Positive for Prolonged Bleeding and Easy Bruising Allergy/Immunologic: Negative Neurologic Positive for Memory Problems, Headache, Numbness/Tingling and Weakness Psychiatric Positive for Stress or Conflicts, Depression, Anxiety, Irritability and Hallucinations Patient's Review of Systems has been reviewed with the patient and updated as appropriate. Objective 04/15/22 1415 BP: 121/83 BP Site: Right Arm BP Position: Sitting BP Cuff Size: Regular Adult Pulse: (!) 58 Resp: 16 SpO2: 97% Weight: 96.6 kg (213 lb) Height: 165.1 cm (5' 5 ) Physical Exam EXAM: NOSE: no erythema or exudate PHARYNX: normal, no erythema NECK: supple and no adenopathy CHEST: Normal chest wall exam Neurological Exam MENTAL STATUS: Alert, oriented to person, place and time and Follows commands CRANIAL NERVES: PERRLA, EOM's intact, Extraocular movements intact, Facial sensation intact, Face symmetric, No dysarthria, Palate elevates symmetrically, Tongue protrudes midline, and Shoulder shrug intact and symmetric MOTOR: No drift and Normal tone MOTOR STRENGTH: Upper and lower extremity 5/5 bilaterally REFLEXES: UE and LE reflexes are equal and reactive SENSATION: Intact light touch COORDINATION: Finger-to- nose-finger intact bilaterally GAIT: Normal-based PAST MEDICAL HISTORY Diagnosis Date Abnormal EKG 04/23/2017 inf [place] age undetermined Anxiety Chicken pox Colon polyps Depression ED (erectile dysfunction) Headache HTN (hypertension) Hypogonadism male 04/25/2010 Pulmonary embolism (HCC) Rectal bleed Shingles Shoulder pain pain management. Current Outpatient Medications Medication Sig Dispense Refill morphine SR (MS CONTIN) 15 mg 12 hr tablet Take 1 tablet by mouth once daily as needed for pain for up to 30 days. for Pain Do not start before April 08, 2022. 30 tablet 0 oxyCODONE (ROXICODONE) 15 mg immediate release tablet Take 1 tablet by mouth every 8 hours as needed for pain for up to 30 days. Do not start before April 08, 2022. 90 tablet 0 risperiDONE (RISPERDAL) 0.5 mg tablet Take 1 tablet by mouth twice daily. 60 tablet 2 lidocaine-prilocaine (EMLA) 2.5-2.5 % cream APPLY TO THE AFFECTED AREA(S) THREE TIMES DAILY NEEDED FOR PAIN. 30 g 4 losartan (COZAAR) 100 mg tablet Take 1 tablet by mouth once daily. 90 tablet 3 apixaban (ELIQUIS) 5 mg tab(s) Take 1 tablet by mouth twice daily. 60 tablet 5 lamoTRIgine (LAMICTAL) 150 mg tablet Take 1 tablet by mouth once daily. (Patient not taking: Reported on 04/15/2022) 30 tablet 2 polyethylene glycol 3350 (MIRALAX) 17 gram/dose powder Dissolve dose in 4 - 8 ounces of liquid and take as directed. (Patient not taking: Reported on 04/15/2022) 765 g 1 triamterene-hydroCHLOROthiazide (MAXZIDE-25MG) 37.5-25 mg per tablet Take 1 tablet by mouth once daily. 90 tablet 3 omeprazole (PRILOSEC) 20 mg capsule Take 1 capsule by mouth daily before breakfast. 1/2 hr before meal. (Patient not taking: Reported on 04/15/2022) 90 capsule 3 naloxone 4 mg/actuation nasal spray (NARCAN) Narcan 4 mg/actuation spray,non-aerosol (Patient not taking: Reported on 04/15/2022) Current Facility-Administered Medications Medication Dose Route Frequency Provider Last Rate Last Admin perflutren lipid microspheres 1.3 mL in NaCl (PF) 0.9% 10 mL injection (DEFINITY) INTRAVENOUS DIRECTED PRN Lauren Steen APRN.JADA sodium chloride 0.9 % (flush) 10 mL (BD POSIFLUSH) 10 mL INTRAVENOUS DIRECTED PRN Lauren Steen APRN.PLUG SORTER Social Connections: Unknown Frequency of Communication with Friends and Family: Patient refused Frequency of Social Gatherings with Friends and Family: Patient refused Attends Scientologist Services: Patient refused Active Member of Clubs or Organizations: No Attends Club or Organization Meetings: Patient refused Marital Status: Mild cognitive impairment with memory loss MINI-MENTAL STATE EXAMINATION (MMSE) Make the patient comfortable and establish rapport. Ask questions in the order listed. Total possible score is 30. ORIENTATION 1. What is the (year) (season) (date) (day) (month)? Max score=5 Patient's score=5 2. Where are we? (state) (county) (town or city) (hospital) (floor)? Max score=5 Patient's score=5 REGISTRATION Ask the patient if you may test his/her memory. Then say the names of 3 unrelated objects, clearly and slowly, about one second for each (eg, apple, table, davi). After you have said all 3, ask him/her to repeat them. This first repetition determines the score(0-3), but keep saying them until he/she can repeat all 3, up to 6 trials. Max score=3 Patient's score=3 ATTENTION AND CALCULATION Ask the patient to begin with 100 and count backwards by 7. Stop after 5 subtractions (93, 86, 79, 72, 65). Score the total number of correct answers. If the patient cannot or will not perform the serial 7s task, ask him/her to spell the word WORLD backwards. The score is the number of letters in the correct order (eg, DLROW=5; DLRW=4; DLORW, DLW=3; OW=2; DRLWO=1). Max score=5 Patient's score=3 Serial 5 substraction , RECALL Ask the patient to recall the 3 items repeated above (eg, apple, table, davi). Max score=3 Patient's score=2 LANGUAGE Naming: Show the patient a wristwatch and ask him/her what it is. Repeat for pencil. Max score=2 Patient's score=2 Repetition: Ask the patient to repeat the phrase No ifs, ands, or buts: after you. Max score=1 Patient's score=1 3-Stage Command: Give the patient a piece of blank paper and ask him/her to take a piece of paper in your right hand, fold it in half, put it on the floor. Score 1 point for each part correctly executed. Max score=3 Patient's score=3 Reading: On a blank piece of paper, print the sentence CLOSE YOUR EYES in letters large enough for the patient to see clearly. Ask him/her to read it and do what it says. Score 1 point only if he/she actually closes his/her eyes. Max score=1 Patient's score=1 Writing: Give the patient a blank piece of paper and ask him/her to write a sentence. Do not dictate a sentence; it is to be written spontaneously. It must contain a subject and verb and be sensible. Correct grammar and punctuation are not necessary. Max score=1 Patient's score=1 Copying: Ask the patient to copy the figure of intersecting pentagons exactly as it is. All 10 angles must be present and 2 must intersect to form a 4-sided figure to score 1 point. Tremor and rotation are ignored. Max score=1 Patient's score=1 MAXIMUM TOTAL SCORE = 30 TOTAL SCORE = 27/30 Suggested guideline for determining the severity of cognitive impairment: Mild: MMSE>21 Moderate: MMSE 10-20 Severe: MMSE<9 Expected decline in MMSE scores in untreated mild to moderate Alzheimer's patient is 2 to 4 points per year. *Adapted from Folstein et al.1 and Christine and Deepakstein2. (c) 1974, 1997 [employer] Used with permission. References: 1. Folstein MF, Folstein SE, Loy AL. Mini-Mental State: a practical method for grading the cognitive state of patients for the clinician. J Psychiatr Res. 1975; 12:189-198. 2. JR Christine, Varinder MF, Mini-Mental State Examination (MMSE). Psychopharm Bull. 1988;24:689-692. 3. Bernie JT, Christel FJ, Rene RD, Leonardo A, Carol F. Neuropsychological function in Alzheimer's disease: pattern of impairment and rates of progression. Arch Neurol. 1988;45:263-268. 4. Reyes JA, Tyrone B, Duong S-P, Radha LYNCH. Predictors of cognitive and functional progression in patients with probable Alzheimer's disease. Neurology. 1992;42:9607-0272. Assessment and Plan 61 years old man with memory loss being forgetful,irritable most of the time Work up will be done for any other cause of cognitive impairment that is treatable Office Visit on 04/15/22 CONSULT TO NEUROLOGY NEUROPSYCHOLOGICAL TESTING CONSULT CONSULT TO SPEECH THERAPY EPIL EEG ROUTINE Total time in minutes spent with patient, reviewing records, labs, imaging, formulating plan, and documentin minutes with more than 50% of the time spent in patient education/counselling/coordinating care with the patient and /or family. April 15, [address] M[address] [facility] [place] Department of Neurology documented in this encounter [facility] 04-03-2022 Miscellaneous Notes The following approved medication requests have been transmitted electronically. Requested Prescriptions Signed Prescriptions Disp Refills morphine SR (MS CONTIN) 15 mg 12 hr tablet 30 tablet 0 Sig: Take 1 tablet by mouth once daily as needed for pain for up to 30 days. for Pain Do not start before April 08, 2022. Authorizing Provider: ANNA FOLEY oxyCODONE (ROXICODONE) 15 mg immediate release tablet 90 tablet 0 Sig: Take 1 tablet by mouth every 8 hours as needed for pain for up to 30 days. Do not start before April 08, 2022. Authorizing Provider: ANNA FOLEY APRN.TWISTING FRAME CHANGER Patient phones requesting refills as follows: Requested Prescriptions Pending Prescriptions Disp Refills morphine SR (MS CONTIN) 15 mg 12 hr tablet 30 tablet 0 Sig: Take 1 tablet by mouth once daily as needed for pain for up to 30 days. for Pain oxyCODONE (ROXICODONE) 15 mg immediate release tablet 90 tablet 0 Sig: Take 1 tablet by mouth every 8 hours as needed for pain for up to 30 days. Last UDS: No results found for: SUMM @FLOW([id number])@ No results found for: SUMM Summary Report (Summary) Date Value Ref Range Status 11/22/2021 FINAL Final Comment: TOXASSURE COMP DRUG ANALYSIS,UR Test Result Flag Units Drug Present Carboxy-THC 15 ng/mg creat Carboxy-THC is a metabolite of tetrahydrocannabinol (THC). Source of THC is most commonly herbal marijuana or marijuana-based products, but THC is also present in a scheduled prescription medication. Trace amounts of THC can be present in hemp and cannabidiol (CBD) products. This test is not intended to distinguish between swbyp-[id number], the predominant form of THC in most herbal or marijuana-based products, and ctesd-4-[id number]. Morphine 1845 ng/mg creat Potential sources of large amounts of morphine in the absence of codeine include administration of morphine or use of heroin. Oxycodone 960 ng/mg creat Oxymorphone 359 ng/mg creat Noroxycodone 2246 ng/mg creat Noroxymorphone 622 ng/mg creat Sources of oxycodone are scheduled prescription medications. Oxymorphone, noroxycodone, and noroxymorphone are expected metabolites of oxycodone. Oxymorphone is also available as a scheduled prescription medication. Gabapentin PRESENT Lamotrigine PRESENT Quetiapine PRESENT Test Result Flag Units Ref Range Creatinine 134 mg/dL >=20 Declared Medications: Medication list was not provided. For clinical consultation, please call . Please review and advise. Annabelle Green RN documented in this encounter [facility] 04-02-2022 Note HNO ID: [id number] Author: Jennifer Stoner APRN.PLUG SORTER Service: ? Author Type: Nurse Practitioner Type: Progress Notes Filed: 04/02/2022 3:05 PM Note Text: PSYC FOLLOW UP - PSYCHIATRIC PROGRESS NOTE DIAGNOSIS: Bipolar 2 disorder Generalized Anxiety Disorder GAF: -60-51 Moderate symptoms or moderate difficulty in social, occupational or school functioning. TREATMENT PLAN: Increase Risperdal to help with mood and irritability. Continue Lamictal at the same dose. Encouraged to keep the appointment with Neurology regarding his memory concerns and headaches. Follow up in 2 to 3 months. Medication Update: Risperdal (Risperidone) 0.5 mg - take 1 tablet twice daily. Continue Lamictal (Lamotrigine) at the same dose. The effects and side effects of all the medications were reviewed in detail with the patient. He denies any involuntary movement related side effects. Patient is in agreement with the treatment plan and aware to reach out with any questions, concerns, or worsening of symptoms prior to the next appointment. He is aware of the rash side effect associated with Lamictal. CC: Follow up regarding mood and anxiety HPI: Gerald Staley is a 61 year old Male with a history of Bipolar disorder and JE presenting today for follow-up. Date of last visit: 01/29/2022 Plan from last visit: Discontinue Seroquel as patient stopped taking it due to fatigue. Start Risperdal to help with his mood symptoms, irritability, and sleep difficulties. Continue Lamictal at the same dose. Encouraged him to schedule an appointment with Dr. Linda for couple's therapy as his has agreed to work on their relationship and join him in therapy. Follow up in 6 to 8 weeks. Today Cecil shares that he has been taking it one day at a time. He continues to struggle with chronic pain. Concerned about blood in his stool. He has been struggling with frequent headaches. Has completed MRI of his liver. He has been concerned about mood swings. He is being more picky when it comes to arranging things. Has been struggling with his memory. PCP has recommended that he see neurology. He is scheduled with them at the end of the month. Continues to struggle with financial stress. He is not getting adequate money from [employer] to support him. He is not receiving food stamps anymore. He is unable to work due to his chronic pain issues. He is still waiting to receive payment from his worker's comp settlement. He has stress related to not contributing due to her chronic pain issues. She is not able to work due to this. He shares that he has been tolerating Risperdal better. His sleep is better. He is working on improving his sleep schedule. In agreement to try a daytime dose of Risperdal to help with his mood and irritability. Interval Progress: Slightly improved Risks and benefits of the medication, including any black box warnings, were discussed with the patient. Social History: See HPI PATIENT DATA: Generalized Anxiety Disorder Scale (JE-7) JE - 7 SCORES 06/13/2020 10/02/2020 01/29/2022 JE-7 Score 21 21 18 (0-4) minimal anxiety, (5-9) mild anxiety, (10-14) moderate anxiety, (15-21) severe anxiety Patient Health Questionnaire (PHQ-9) PHQ-9 10/02/2020 11/28/2021 01/29/2022 Score 20 13 20 (0-4) minimal depression, (5-9) mild depression, (10-14) moderate depression, (15-19) moderately severe depression, (20-27) severe depression ROS: See HPI General: Negative for fever, malaise, unintentional weight loss HEENT: Negative for recent changes in vision or hearing, no nasal drainage Respiratory: Negative for cough, wheezing or SOB Cardiovascular: Negative for chest pain GI: Negative for nausea, vomiting, change in bowel habits MUSCULOSKELETAL: Negative for acute back or joint pain SKIN: Negative for rash NEURO: See HPI All other systems negative. VITAL SIGNS: BP Temp Pulse Resp SpO2 MENTAL STATUS EXAMINATION: Appearance: Appropriately groomed, appears stated age Behavior: Appropriately engaged Psychomotor: No psychomotor agitation Cognition Level of Consciousness: Awake and alert. No fluctuation in wakefulness. Orientation: Grossly oriented Memory: Intact Attention/Concentration: Good Fund of Knowledge: Able to demonstrate an awareness of current events. Mood: Sad Affect: Congruent to mood Speech/Language: Appropriate tone, prosody, vic, phonetics, and syntax Thought Form: Goal-directed. No loosening of associations. Thought Content: No delusions noted or endorsed. Perceptual Disturbances: Did not appear to respond to auditory stimuli. Safety: Suicidal Ideations: No suicidal ideation, intent or plan. Homicidal Ideations: No homicidal ideation, intent or plan. Insight: Appropriate Judgment: Appropriate I spent a total of 28 minutes on the date of the service which included preparing to see the patient, [id number] patient care, completin (more content not included)... [facility] 04-02-2022 Instructions Jennifer Stoner APRN.CNP - 04/02/2022 3:04 PM EST Shubham Fermin, It was good to talk with you today. Below is a summary of the plan that we discussed during your appointment for reference. Of course, if you have any questions or concerns do not hesitate to reach out to me via a message or call. Best, Jennifer Stoner APRN.CNP PLAN AND FOLLOW UP: YOU SHOULD SEEK IMMEDIATE MEDICAL ATTENTION AT THE NEAREST EMERGENCY DEPARTMENT OR BY CALLING 911, IF ANY OF THE FOLLOWING OCCURS: - New or worsening thoughts of harming yourself (suicidal thoughts) or others (homicidal thoughts) - Not feeling safe at home or worrying about your ability to remain safe at home If you are having thoughts of harming yourself or others, then you can: - Call the National Suicide Hotline at 4-216-PWIWOPG ( ) or 0-361-023-TALK (4545) - Text 4HWML to 407184 Medication Update: Risperdal (Risperidone) 0.5 mg - take 1 tablet twice daily. Continue Lamictal (Lamotrigine) at the same dose. Next appointment: --Schedule in 3 months or sooner if needed -- You may call the department appointment line at [phone] to schedule your appointment. -- Please call my nurse Rimma at [phone] or send me a message in [employer] with any questions or concerns between appointments. documented in this encounter [facility] 04-02-2022 History of Present illness Narrative Images from the original note were not included. PSYC FOLLOW UP - PSYCHIATRIC PROGRESS NOTE DIAGNOSIS: Bipolar 2 disorder Generalized Anxiety Disorder GAF: -60-51 Moderate symptoms or moderate difficulty in social, occupational or school functioning. TREATMENT PLAN: Increase Risperdal to help with mood and irritability. Continue Lamictal at the same dose. Encouraged to keep the appointment with Neurology regarding his memory concerns and headaches. Follow up in 2 to 3 months. Medication Update: Risperdal (Risperidone) 0.5 mg - take 1 tablet twice daily. Continue Lamictal (Lamotrigine) at the same dose. The effects and side effects of all the medications were reviewed in detail with the patient. He denies any involuntary movement related side effects. Patient is in agreement with the treatment plan and aware to reach out with any questions, concerns, or worsening of symptoms prior to the next appointment. He is aware of the rash side effect associated with Lamictal. CC: Follow up regarding mood and anxiety HPI: Gerald Staley is a 61 year old Male with a history of Bipolar disorder and JE presenting today for follow-up. Date of last visit: 01/29/2022 Plan from last visit: Discontinue Seroquel as patient stopped taking it due to fatigue. Start Risperdal to help with his mood symptoms, irritability, and sleep difficulties. Continue Lamictal at the same dose. Encouraged him to schedule an appointment with Dr. Linda for couple's therapy as his has agreed to work on their relationship and join him in therapy. Follow up in 6 to 8 weeks. Today Cecil shares that he has been taking it one day at a time. He continues to struggle with chronic pain. Concerned about blood in his stool. He has been struggling with frequent headaches. Has completed MRI of his liver. He has been concerned about mood swings. He is being more picky when it comes to arranging things. Has been struggling with his memory. PCP has recommended that he see neurology. He is scheduled with them at the end of the month. Continues to struggle with financial stress. He is not getting adequate money from [employer] to support him. He is not receiving food stamps anymore. He is unable to work due to his chronic pain issues. He is still waiting to receive payment from his worker's comp settlement. He has stress related to not contributing due to her chronic pain issues. She is not able to work due to this. He shares that he has been tolerating Risperdal better. His sleep is better. He is working on improving his sleep schedule. In agreement to try a daytime dose of Risperdal to help with his mood and irritability. Interval Progress: Slightly improved Risks and benefits of the medication, including any black box warnings, were discussed with the patient. Social History: See HPI PATIENT DATA: Generalized Anxiety Disorder Scale (JE-7) JE - 7 SCORES 06/13/2020 10/02/2020 01/29/2022 JE-7 Score 21 21 18 (0-4) minimal anxiety, (5-9) mild anxiety, (10-14) moderate anxiety, (15-21) severe anxiety Patient Health Questionnaire (PHQ-9) PHQ-9 10/02/2020 11/28/2021 01/29/2022 Score 20 13 20 (0-4) minimal depression, (5-9) mild depression, (10-14) moderate depression, (15-19) moderately severe depression, (20-27) severe depression ROS: See HPI General: Negative for fever, malaise, unintentional weight loss HEENT: Negative for recent changes in vision or hearing, no nasal drainage Respiratory: Negative for cough, wheezing or SOB Cardiovascular: Negative for chest pain GI: Negative for nausea, vomiting, change in bowel habits MUSCULOSKELETAL: Negative for acute back or joint pain SKIN: Negative for rash NEURO: See HPI All other systems negative. VITAL SIGNS: BP Temp Pulse Resp SpO2 MENTAL STATUS EXAMINATION: Appearance: Appropriately groomed, appears stated age Behavior: Appropriately engaged Psychomotor: No psychomotor agitation Cognition Level of Consciousness: Awake and alert. No fluctuation in wakefulness. Orientation: Grossly oriented Memory: Intact Attention/Concentration: Good Fund of Knowledge: Able to demonstrate an awareness of current events. Mood: Sad Affect: Congruent to mood Speech/Language: Appropriate tone, prosody, vic, phonetics, and syntax Thought Form: Goal-directed. No loosening of associations. Thought Content: No delusions noted or endorsed. Perceptual Disturbances: Did not appear to respond to auditory stimuli. Safety: Suicidal Ideations: No suicidal ideation, intent or plan. Homicidal Ideations: No homicidal ideation, intent or plan. Insight: Appropriate Judgment: Appropriate I spent a total of 28 minutes on the date of the service which included preparing to see the patient, [id number] patient care, completing clinical documentation, and counseling and educating the patient/family/caregiver, ordering medications/labs. Jennifer Stoner APRN.CNP April 02, 2022 2:36 PM This note was partially generated using [employer] voice recognition system. Note was reviewed for accuracy. There may be minor misspellings or grammar miscues with Dragon voice recognition. documented in this encounter [facility] 03-29-2022 Miscellaneous Notes Spoke with patient. Given message from provider's office. Patient verbalizes understanding. He states he will call back to schedule with Neurology. 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 Doubt it is causing any issues. Given his memory issues and the the mri, recommend he see neurology. documented in this encounter [facility] 03-28-2022 Note HNO ID: [id number] Author: NAM West) Service: ? Author Type: Technologist Type: Progress Notes Filed: 03/28/2022 9:36 AM Note Text: Radiology Service Progress Note PATIENT NAME: Gerald Staley DATE OF SERVICE: March 28, 2022 TIME: 9:26 AM PATIENT IDENTITY VERIFICATION COMPLETED USING TWO (2) IDENTIFIERS: Name and Date of confirmed by patient verbally. FALL SCREENING: Has the patient had 2 falls in the last year or 1 fall with injury or currently using an Ambulatory Assistive Device (Walker, Cane, Wheelchair, Crutches, etc.)? No PATIENT GENDER DATA: Male PATIENT RELEVANT IMPLANT DATA REVIEWED: Yes RADIOLOGY DEPARTMENT: MR; Exam(s) Completed: Head: Routine Brain PERIPHERAL IV DATA: Not applicable SIGNED BY: NAM West) March 28, 2022 9:26 AM [facility] 03-28-2022 History of Present illness Narrative Radiology Service Progress Note PATIENT NAME: Gerald Staley DATE OF SERVICE: March 28, 2022 TIME: 9:26 AM PATIENT IDENTITY VERIFICATION COMPLETED USING TWO (2) IDENTIFIERS: Name and Date of confirmed by patient verbally. FALL SCREENING: Has the patient had 2 falls in the last year or 1 fall with injury or currently using an Ambulatory Assistive Device (Walker, Cane, Wheelchair, Crutches, etc.)? No PATIENT GENDER DATA: Male PATIENT RELEVANT IMPLANT DATA REVIEWED: Yes RADIOLOGY DEPARTMENT: MR; Exam(s) Completed: Head: Routine Brain PERIPHERAL IV DATA: Not applicable SIGNED BY: RT Brett(Roseline) March 28, 2022 9:26 AM documented in this encounter [facility] 03-04-2022 Miscellaneous Notes The following approved medication requests have been transmitted electronically. Requested Prescriptions Signed Prescriptions Disp Refills morphine SR (MS CONTIN) 15 mg 12 hr tablet 30 tablet 0 Sig: Take 1 tablet by mouth once daily as needed for pain for up to 30 days. for Pain Do not start before March 09, 2022. Authorizing Provider: CINDY CRAMER oxyCODONE (ROXICODONE) 15 mg immediate release tablet 90 tablet 0 Sig: Take 1 tablet by mouth every 8 hours as needed for pain for up to 30 days. Do not start before March 09, 2022. Authorizing Provider: CINDY CRAMER APRN.CNP Patient phones requesting refills as follows: Requested Prescriptions Pending Prescriptions Disp Refills morphine SR (MS CONTIN) 15 mg 12 hr tablet 30 tablet 0 Sig: Take 1 tablet by mouth once daily as needed for pain for up to 30 days. for Pain oxyCODONE (ROXICODONE) 15 mg immediate release tablet 90 tablet 0 Sig: Take 1 tablet by mouth every 8 hours as needed for pain for up to 30 days. Please review and advise. Harmony Reeder RN documented in this encounter [facility] 03-03-2022 Note HNO ID: [id number] Author: Kevin Cary MD Service: ? Author Type: Physician Type: Progress Notes Filed: 03/03/2022 3:48 PM Note Text: Patient presents with: Follow Up HPI: Patient presents today for office visit for follow up. Recurring bleeding from rectum. Blood is prominent with or without stool. Intermittently feels discomfort in abdomen with bloating and lots of gas. Has urge that he has to have a bowel movement and it's nothing but blood. Feels fatigued. Saw Dr. Etienne on 01/14/22. Dx with internal hemorrhoids. Does not want to perform hemorrhoidectomy due to being on Eliquis. Discussed that if the bleeding becomes too bad, we could hold the eliquis for maybe a day or 2 for procure. Has seen see Dr Etienne for the same. He is to follow up. Complains today of headaches over the past couple months along with still having intermittent shortness of breath, and lightheadedness. Has chest pain during panic attacks. He had an appt with cardiology. He apparently did not keep that appt again. Will complete six months of tx for his PE in April. Was likely provoked. Followed covid infection. Has noted worsening memory for over a year. Has a hx of heavy drinking per patient for a number of years. Could drink a 12 pack of beer several times a week Has family hx of dementia No new focal neuro issues. Predates covid. Headaches have been mild but persistent and daily See last ov: Accompanied by his spouse today. Still feels badly: Still with chronic chest pain. Worried what can be causing it, however, has not followed what he was supposed to do. We had a kaylen discussion about compliance and the fact that his emotional state may be contributing to meena of his symptoms. When asked why he is not keeping appointments, he cannot really give an explanation. Discussed that I have done as much work up for his chest pain that I can do. He has had multiple cts. He has had stress test, echo and did have a heart cath in 2019. Had egd in 2019. Remains tired and fatigued and appears clinically depressed. He did not see Jennifer for follow up. 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 He is being treated for his PE for three more months. He is not drinking as much. He is taking his meds. He is having worsening shortness of breath. Is coughing over the last few weeks. Is not bringing up anything. No definite fevers. Is not constant and does not feel ill. Had some bleeding yesterday in the toilet bowel. Has had recurrent bleeding on and off in the past. Had colonoscopy ;last year. No bleeding today. Can intermittently feel discomfort and may feel something when moving the bowels. Has hemorrhoids noted in the past on his scopes. Is on eliquis. No new abd pain. Has noted constipation due to his opiate use and is not using his miralax he is supposed to. Again had discussion regarding med compliance. MEDICATIONS: Current Outpatient Medications Medication Sig risperiDONE (RISPERDAL) 0.5 mg tablet Take 1 tablet by mouth daily at bedtime. lamoTRIgine (LAMICTAL) 150 mg tablet Take 1 tablet by mouth once daily. morphine SR (MS CONTIN) 15 mg 12 hr tablet Take 1 tablet by mouth once daily as needed for pain for up to 30 days. for Pain Do not start before February 07, 2022. oxyCODONE (ROXICODONE) 15 mg immediate release tablet Take 1 tablet by mouth every 8 hours as needed for pain for up to 30 days. Do not start before February 07, 2022. lidocaine-prilocaine (EMLA) 2.5-2.5 % cream APPLY TO THE AFFECTED AREA(S) THREE TIMES DAILY NEEDED FOR PAIN. polyethylene glycol 3350 (MIRALAX) 17 gram/dose powder Dissolve dose in 4 - 8 ounces of liquid and take as directed. losartan (COZAAR) 100 mg tablet Take 1 tablet by mouth once daily. triamterene-hydroCHLOROthiazide (MAXZIDE-25MG) 37.5-25 mg per tablet Take 1 tablet by mouth once daily. omeprazole (PRILOSEC) 20 mg capsule Take 1 capsule by mouth daily before breakfast. 1/2 hr before meal. apixaban (ELIQUIS) 5 mg tab(s) Take 1 tablet by mouth twice daily. naloxone 4 mg/actuation nasal spray (NARCAN) Narcan 4 mg/actuation spray,non-aerosol Current Facility-Administered Medications Medication Dose Route Frequency perflutren lipid microspheres 1.3 mL in NaCl (PF) 0.9% 10 mL injection (DEFINITY) INTRAVENOUS DIRECTED PRN sodium chloride 0.9 % (flush) 10 mL (BD POSIFLUSH) 10 mL INTRAVENOUS DIRECTED PRN ALLERGIES: ALLERGIES Allergen Reactions Bakari Inhibitors Cough Darvocet A500 [Prop* GI Upset PAST MEDICAL HISTORY Diagnosis Date Abnormal EKG 04/23/2017 inf [place] age undetermined Anxiety Chicken pox Colon polyps Depression ED (erectile dysfunction) Headache HTN (hypertension) Hypogonadism male 04/25/2010 Pulmonary embolism (HCC) Rectal bleed Shingles Shoulder pain pain management. PAST SURGICAL HISTORY Procedure Laterality Date COLONOSCOPY FLX DX W/COLLJ SPEC WHEN PFRMD a (more content not included)... [facility] 03-03-2022 Miscellaneous Notes Addended by: LINDA MORRIS on: 03/03/2022 04:08 PM Modules accepted: Orders documented in this encounter [facility] 03-03-2022 History of Present illness Narrative Patient presents with: Follow Up HPI: Patient presents today for office visit for follow up. Recurring bleeding from rectum. Blood is prominent with or without stool. Intermittently feels discomfort in abdomen with bloating and lots of gas. Has urge that he has to have a bowel movement and it's nothing but blood. Feels fatigued. Saw Dr. Etienne on 01/14/22. Dx with internal hemorrhoids. Does not want to perform hemorrhoidectomy due to being on Eliquis. Discussed that if the bleeding becomes too bad, we could hold the eliquis for maybe a day or 2 for procure. Has seen see Dr Etienne for the same. He is to follow up. Complains today of headaches over the past couple months along with still having intermittent shortness of breath, and lightheadedness. Has chest pain during panic attacks. He had an appt with cardiology. He apparently did not keep that appt again. Will complete six months of tx for his PE in April. Was likely provoked. Followed covid infection. Has noted worsening memory for over a year. Has a hx of heavy drinking per patient for a number of years. Could drink a 12 pack of beer several times a week Has family hx of dementia No new focal neuro issues. Predates covid. Headaches have been mild but persistent and daily See last ov: Accompanied by his spouse today. Still feels badly: Still with chronic chest pain. Worried what can be causing it, however, has not followed what he was supposed to do. We had a kaylen discussion about compliance and the fact that his emotional state may be contributing to meena of his symptoms. When asked why he is not keeping appointments, he cannot really give an explanation. Discussed that I have done as much work up for his chest pain that I can do. He has had multiple cts. He has had stress test, echo and did have a heart cath in 2019. Had egd in 2019. Remains tired and fatigued and appears clinically depressed. He did not see Jennifer for follow up. 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 He is being treated for his PE for three more months. He is not drinking as much. He is taking his meds. He is having worsening shortness of breath. Is coughing over the last few weeks. Is not bringing up anything. No definite fevers. Is not constant and does not feel ill. Had some bleeding yesterday in the toilet bowel. Has had recurrent bleeding on and off in the past. Had colonoscopy ;last year. No bleeding today. Can intermittently feel discomfort and may feel something when moving the bowels. Has hemorrhoids noted in the past on his scopes. Is on eliquis. No new abd pain. Has noted constipation due to his opiate use and is not using his miralax he is supposed to. Again had discussion regarding med compliance. MEDICATIONS: Current Outpatient Medications Medication Sig risperiDONE (RISPERDAL) 0.5 mg tablet Take 1 tablet by mouth daily at bedtime. lamoTRIgine (LAMICTAL) 150 mg tablet Take 1 tablet by mouth once daily. morphine SR (MS CONTIN) 15 mg 12 hr tablet Take 1 tablet by mouth once daily as needed for pain for up to 30 days. for Pain Do not start before February 07, 2022. oxyCODONE (ROXICODONE) 15 mg immediate release tablet Take 1 tablet by mouth every 8 hours as needed for pain for up to 30 days. Do not start before February 07, 2022. lidocaine-prilocaine (EMLA) 2.5-2.5 % cream APPLY TO THE AFFECTED AREA(S) THREE TIMES DAILY NEEDED FOR PAIN. polyethylene glycol 3350 (MIRALAX) 17 gram/dose powder Dissolve dose in 4 - 8 ounces of liquid and take as directed. losartan (COZAAR) 100 mg tablet Take 1 tablet by mouth once daily. triamterene-hydroCHLOROthiazide (MAXZIDE-25MG) 37.5-25 mg per tablet Take 1 tablet by mouth once daily. omeprazole (PRILOSEC) 20 mg capsule Take 1 capsule by mouth daily before breakfast. 1/2 hr before meal. apixaban (ELIQUIS) 5 mg tab(s) Take 1 tablet by mouth twice daily. naloxone 4 mg/actuation nasal spray (NARCAN) Narcan 4 mg/actuation spray,non-aerosol Current Facility-Administered Medications Medication Dose Route Frequency perflutren lipid microspheres 1.3 mL in NaCl (PF) 0.9% 10 mL injection (DEFINITY) INTRAVENOUS DIRECTED PRN sodium chloride 0.9 % (flush) 10 mL (BD POSIFLUSH) 10 mL INTRAVENOUS DIRECTED PRN ALLERGIES: ALLERGIES Allergen Reactions Bakari Inhibitors Cough Darvocet A500 [Prop* GI Upset PAST MEDICAL HISTORY Diagnosis Date Abnormal EKG 04/23/2017 inf [place] age undetermined Anxiety Chicken pox Colon polyps Depression ED (erectile dysfunction) Headache HTN (hypertension) Hypogonadism male 04/25/2010 Pulmonary embolism (HCC) Rectal bleed Shingles Shoulder pain pain management. PAST SURGICAL HISTORY Procedure Laterality Date COLONOSCOPY FLX DX W/COLLJ SPEC WHEN PFRMD age 40 Colonoscopy COLONOSCOPY FLX DX W/COLLJ SPEC WHEN PFRMD 06/04/2010 Colonoscopy COLONOSCOPY FLX DX W/COLLJ SPEC WHEN PFRMD 05/25/2018 Multiple Fragments of Tubular Adenoma, Diverticulosis COLONOSCOPY GEN ANES 06/27/2020 Two 4 to 7 mm polyps (adenomatous and hyperplastic ) COLSC FLX W/RMVL OF TUMOR POLYP LESION SNARE TQ 05/30/2016 adenomatous polyp - small - 5 year follow up ESOPHAGOGASTRODUODENOSCOPY TRANSORAL DIAGNOSTIC 05/25/2018 Duodenitis, Gastritis FOOT SURGERY HX Right ~ 2014 OPEN REPAIR OF ROTATOR CUFF ACUTE Right 10/2016 Rotator cuff repair - Dr. Santamaria RECONSTRUCTION ROTATOR CUFF AVULSION CHRONIC Left 03/21/2010 Dr. Stalin Clark RPR UMBILICAL HRNA 5 YRS/> REDUCIBLE 06/11/2016 simple SKIN GRAFT HX Right 1987 eyelid TONSILLECTOMY HX Childhood FAMILY HISTORY Problem Relation Age of Onset Diabetes Mother Hypertension Mother Arthritis Mother Breast Cancer Mother Dementia Mother Cancer Father throat Asthma No Family History Social History Tobacco Use Smoking status: Never Smokeless tobacco: Never Vaping Use Vaping Use: Never used Substance Use Topics Alcohol use: Yes Alcohol/week: 15.0 standard drinks Types: 6 Cans of Beer (12oz) per week Comment: 12 pack a week Drug use: Not Currently Comment: no longer using. Reviewed current medications, allergies, past medical history, surgical history, family history and social history today. REVIEW OF SYSTEMS All other reviewed and negative other than HPI. HEALTH MAINTENANCE: Reviewed health maintenance issues today VITALS: BP 116/82 Pulse 70 Ht 165.1 cm (5' 5 ) Wt 98 kg (216 lb) SpO2 98% BMI 35.94 kg/m Last 4 Encounter Wt Readings: Date: Wt: 01/29/2022 101.6 kg (224 lb) 01/14/2022 99.7 kg (219 lb 12.8 oz) 01/13/2022 100.2 kg (221 lb) 01/04/2022 103 kg (227 lb) PHYSICAL EXAMINATION: General appearance: Well appearing, alert, in no acute distress, well-hydrated, well nourished. Skin: Skin color, texture, turgor normal, no suspicious rashes or lesions Head: Normocephalic, no masses, lesions, tenderness or abnormalities Eyes: Anicteric sclera. Pupils are equally round and reactive to light. Extraocular movements are intact. Neck: Supple, no adenopathy; thyroid symmetric, normal size, no bruits Lungs: Lungs clear to auscultation. No wheezing, rhonchi, rales Heart: RRR without murmur, gallop, or rubs. No ectopy Abdomen: Normal abdominal exam, Abdomen soft, non-tender. Bowel sounds normal. No masses, organomegaly Extremities: No deformities, edema, skin discoloration, clubbing or cyanosis. Good capillary refill. Musculoskeletal: No joint swelling, deformity, or tenderness Peripheral pulses: Normal Neuro: Gait normal. Reflexes normal and symmetric. Sensation grossly intact., Negative findings: speech normal, cranial nerves 2-12 intact, muscle tone normal, able to recall three objects. A and O x 3. ASSESSMENT/PLAN: 1. Essential hypertension - ICD9: 401.9, ICD10: I10 (primary diagnosis) - good control - Continue current medication(s) - Goal of BP <130/80 2. Aorta disorder (HCC) - ICD9: 447.9, ICD10: I77.9 -us of aorta was negative on us. Did have an enlarged aorta on previous echo. Suggested he again follow up with cardiology. 3. Recurrent major depression in partial remission (HCC) - ICD9: 296.35, ICD10: F33.41 - per meds. 4. High risk medications (not anticoagulants) long-term use - ICD9: V58.69, ICD10: Z79.899 - stable. 5. Subclinical hypothyroidism - ICD9: 244.8, ICD10: E03.8 - TSH BLD 6. Rectal bleeding - ICD9: 569.3, ICD10: K62.5 - follow with surgery. - CBC + DIFF 7. Elevated liver enzymes - ICD9: 790.5, ICD10: R74.8 - follow labs. No etoh - HEPATIC FUNCTION PNL - FOLATE SERUM 8. Mild cognitive impairment with memory loss - ICD9: 331.83, ICD10: G31.84 - get mri and labs. Consider neuro. Call if worsens. ? Related psych. - VITAMIN B12 BLOOD - FOLATE SERUM - SYPHILIS TOTAL W/REFLEX - MRI BRAIN WO IVCON 9. Cognitive impairment, mild, so stated - ICD9: 331.83, ICD10: G31.84 - MRI BRAIN WO IVCON 10. Headache, unspecified headache type - ICD9: 784.0, ICD10: R51.9 - MRI BRAIN WO IVCON Kevin Cary MD RTO in six months documented in this encounter [facility] 02-11-2022 Miscellaneous Notes Left detailed message on identifiable voicemail. Liver shows benign vascular lumps called hemangiomas which are ok. Shows fatty liver. Needs to avoid etoh and make sure he rechecks liver panel in one month documented in this encounter [facility] 02-07-2022 Miscellaneous Notes Message sent to patient via [employer] will need to reschedule appointment. Dr Etienne not available on 02.11.22. documented in this encounter [facility] 02-05-2022 Note HNO ID: [id number] Author: RT Belinda(R) Service: ? Author Type: Technologist Type: Progress Notes Filed: 02/05/2022 1:51 PM Note Text: Radiology Service Progress Note DATE OF SERVICE: February 05, 2022 TIME: 1:16 PM PATIENT IDENTITY VERIFICATION COMPLETED USING TWO (2) STANDARD IDENTIFIERS: Name and Date of confirmed by patient verbally. FALL SCREENING: Has the patient had 2 falls in the last year or 1 fall with injury or currently using an Ambulatory Assistive Device (Walker, Cane, Wheelchair, Crutches, etc.)? No PATIENT GENDER DATA: Male PATIENT RELEVANT IMPLANT DATA REVIEWED: Yes ALLERGIES: Reviewed and unchanged CONTRAST ALLERGY: NO. EXAM: MRI - CONTRAST TYPE: GROUP II PERIPHERAL IV DATA: Ambulatory: A peripheral IV was started in the Right antecubital site with a Angio cath: 22 gauge. RADIOLOGY DEPARTMENT: MR; Exam(s) Completed: Body: Liver (routine) SIGNATURE: Lisset Sierra RDMS, RICHARD Weeks ([facility]) PATIENT NAME: Gerald Staley DATE: February 05, 2022 TIME: 1:16 PM [facility] 02-05-2022 History of Present illness Narrative Radiology Service Progress Note DATE OF SERVICE: February 05, 2022 TIME: 1:16 PM PATIENT IDENTITY VERIFICATION COMPLETED USING TWO (2) STANDARD IDENTIFIERS: Name and Date of confirmed by patient verbally. FALL SCREENING: Has the patient had 2 falls in the last year or 1 fall with injury or currently using an Ambulatory Assistive Device (Walker, Cane, Wheelchair, Crutches, etc.)? No PATIENT GENDER DATA: Male PATIENT RELEVANT IMPLANT DATA REVIEWED: Yes ALLERGIES: Reviewed and unchanged CONTRAST ALLERGY: NO. EXAM: MRI - CONTRAST TYPE: GROUP II PERIPHERAL IV DATA: Ambulatory: A peripheral IV was started in the Right antecubital site with a Angio cath: 22 gauge. RADIOLOGY DEPARTMENT: MR; Exam(s) Completed: Body: Liver (routine) SIGNATURE: Lisset Sierra RDMS, RVT - Jodie ([facility]) PATIENT NAME: Gerald Staley DATE: February 05, 2022 TIME: 1:16 PM documented in this encounter [facility] 01-29-2022 Note HNO ID: [id number] Author: Jennifer Stoner APRN.PLUG SORTER Service: ? Author Type: Nurse Practitioner Type: Progress Notes Filed: 02/04/2022 9:39 PM Note Text: PSYC FOLLOW UP - PSYCHIATRIC PROGRESS NOTE DIAGNOSIS: Bipolar 2 disorder Generalized Anxiety Disorder GAF: -60-51 Moderate symptoms or moderate difficulty in social, occupational or school functioning. TREATMENT PLAN: Discontinue Seroquel as patient stopped taking it due to fatigue. Start Risperdal to help with his mood symptoms, irritability, and sleep difficulties. Continue Lamictal at the same dose. Encouraged him to schedule an appointment with Dr. Linda for couple's therapy as his has agreed to work on their relationship and join him in therapy. Follow up in 6 to 8 weeks. Medication Update: Risperdal 0.5 mg - take 1 tablet at bedtime. Continue Lamictal at the same dose. The effects and side effects of all the medications were reviewed in detail with the patient. He denies any involuntary movement related side effects. He is aware of the rash side effect associated with Lamictal. Patient is in agreement with the treatment plan and aware to reach out with any questions, concerns, or worsening of symptoms prior to the next appointment. CC: Follow up regarding mood and anxiety HPI: Gerald Staley is a 61 year old Male with a history of Bipolar 2 disorder and JE presenting today for follow-up. Date of last visit: 08/22/2021 Plan from last visit: Increase Lamictal to address his mood, motivation, and irritability related concerns. Change Seroquel to XR formulation to see if it is better tolerated with lower sedation related side effects. Continue individual psychotherapy with Dr. Linda. Order monitoring lab work at the next appointment. Follow up in 2 months. Today Cecil shares that he has not been doing well. He expressed frustration at the pre-assessment questionnaire. His was helpful. He had 2 blood clots in his lungs and had to take blood thinners. There is blood in his stools. He has to do an MRI of his liver. He is concerned about all the physical health issues he has been experiencing. His [employer] comp settlement was completed in August but he still has not received his check so he has financial stress related to that. He is worried about buying gifts for the grandchildren. He has been frustrated at how he is being treated by the [employer]. He has limitations when it comes to functioning like he was in the past prior to his injury. Discussed the stress related to daughter, her and their family. He is worried about their wellbeing. He continues to take Lamictal. He has been struggling to fall asleep and maintain sleep. His appetite is low and when he eats, he is not eating well. He has been struggling with dental issues. He continues to struggle with accepting his physical limitations and inability to function like he was in the past. Interval Progress: Slightly worse Risks and benefits of the medication, including any black box warnings, were discussed with the patient. Social History: See HPI PATIENT DATA: Generalized Anxiety Disorder Scale (JE-7) JE - 7 SCORES 06/13/2020 10/02/2020 01/29/2022 JE-7 Score 21 21 18 (0-4) minimal anxiety, (5-9) mild anxiety, (10-14) moderate anxiety, (15-21) severe anxiety Patient Health Questionnaire (PHQ-9) PHQ-9 10/02/2020 11/28/2021 01/29/2022 Score 20 13 20 (0-4) minimal depression, (5-9) mild depression, (10-14) moderate depression, (15-19) moderately severe depression, (20-27) severe depression ROS: See HPI General: Negative for fever, malaise, unintentional weight loss HEENT: Negative for recent changes in vision or hearing, no nasal drainage Respiratory: Negative for cough, wheezing or SOB Cardiovascular: Negative for chest pain GI: Negative for nausea, vomiting, change in bowel habits MUSCULOSKELETAL: Negative for acute back or joint pain SKIN: Negative for rash NEURO: Negative for headaches, seizures, focal neurological deficits All other systems negative. VITAL SIGNS: BP 158/82 (01/29/22 1510) Temp Pulse 78 (01/29/22 1510) Resp SpO2 MENTAL STATUS EXAMINATION: Appearance: Appropriately groomed, appears stated age Behavior: Appropriately engaged Psychomotor: No psychomotor agitation Cognition Level of Consciousness: Awake and alert. No fluctuation in wakefulness. Orientation: Grossly oriented Memory: Intact Attention/Concentration: Good Fund of Knowledge: Able to demonstrate an awareness of current events. Mood: Sad Affect: Congruent to mood Speech/Language: Appropriate tone, prosody, vic, phonetics, and syntax Thought Form: Goal-directed. No loosening of associations. Thought Content: No delusions noted or endorsed. Perceptual Disturbances: Did not appear to respond to auditory stimuli. Safety: Suicidal Ideations: No suicidal ideation, intent or plan. (more content not included)... [facility] 01-29-2022 History of Present illness Narrative Images from the original note were not included. PSYC FOLLOW UP - PSYCHIATRIC PROGRESS NOTE DIAGNOSIS: Bipolar 2 disorder Generalized Anxiety Disorder GAF: -60-51 Moderate symptoms or moderate difficulty in social, occupational or school functioning. TREATMENT PLAN: Discontinue Seroquel as patient stopped taking it due to fatigue. Start Risperdal to help with his mood symptoms, irritability, and sleep difficulties. Continue Lamictal at the same dose. Encouraged him to schedule an appointment with Dr. Linda for couple's therapy as his has agreed to work on their relationship and join him in therapy. Follow up in 6 to 8 weeks. Medication Update: Risperdal 0.5 mg - take 1 tablet at bedtime. Continue Lamictal at the same dose. The effects and side effects of all the medications were reviewed in detail with the patient. He denies any involuntary movement related side effects. He is aware of the rash side effect associated with Lamictal. Patient is in agreement with the treatment plan and aware to reach out with any questions, concerns, or worsening of symptoms prior to the next appointment. CC: Follow up regarding mood and anxiety HPI: Gerald Staley is a 61 year old Male with a history of Bipolar 2 disorder and JE presenting today for follow-up. Date of last visit: 08/22/2021 Plan from last visit: Increase Lamictal to address his mood, motivation, and irritability related concerns. Change Seroquel to XR formulation to see if it is better tolerated with lower sedation related side effects. Continue individual psychotherapy with Dr. Linda. Order monitoring lab work at the next appointment. Follow up in 2 months. Today Cecil shares that he has not been doing well. He expressed frustration at the pre-assessment questionnaire. His was helpful. He had 2 blood clots in his lungs and had to take blood thinners. There is blood in his stools. He has to do an MRI of his liver. He is concerned about all the physical health issues he has been experiencing. His [email or web address] settlement was completed in August but he still has not received his check so he has financial stress related to that. He is worried about buying gifts for the grandchildren. He has been frustrated at how he is being treated by the [employer]. He has limitations when it comes to functioning like he was in the past prior to his injury. Discussed the stress related to daughter, her and their family. He is worried about their wellbeing. He continues to take Lamictal. He has been struggling to fall asleep and maintain sleep. His appetite is low and when he eats, he is not eating well. He has been struggling with dental issues. He continues to struggle with accepting his physical limitations and inability to function like he was in the past. Interval Progress: Slightly worse Risks and benefits of the medication, including any black box warnings, were discussed with the patient. Social History: See HPI PATIENT DATA: Generalized Anxiety Disorder Scale (JE-7) JE - 7 SCORES 06/13/2020 10/02/2020 01/29/2022 JE-7 Score 21 21 18 (0-4) minimal anxiety, (5-9) mild anxiety, (10-14) moderate anxiety, (15-21) severe anxiety Patient Health Questionnaire (PHQ-9) PHQ-9 10/02/2020 11/28/2021 01/29/2022 Score 20 13 20 (0-4) minimal depression, (5-9) mild depression, (10-14) moderate depression, (15-19) moderately severe depression, (20-27) severe depression ROS: See HPI General: Negative for fever, malaise, unintentional weight loss HEENT: Negative for recent changes in vision or hearing, no nasal drainage Respiratory: Negative for cough, wheezing or SOB Cardiovascular: Negative for chest pain GI: Negative for nausea, vomiting, change in bowel habits MUSCULOSKELETAL: Negative for acute back or joint pain SKIN: Negative for rash NEURO: Negative for headaches, seizures, focal neurological deficits All other systems negative. VITAL SIGNS: BP 158/82 (01/29/22 1510) Temp Pulse 78 (01/29/22 1510) Resp SpO2 MENTAL STATUS EXAMINATION: Appearance: Appropriately groomed, appears stated age Behavior: Appropriately engaged Psychomotor: No psychomotor agitation Cognition Level of Consciousness: Awake and alert. No fluctuation in wakefulness. Orientation: Grossly oriented Memory: Intact Attention/Concentration: Good Fund of Knowledge: Able to demonstrate an awareness of current events. Mood: Sad Affect: Congruent to mood Speech/Language: Appropriate tone, prosody, vic, phonetics, and syntax Thought Form: Goal-directed. No loosening of associations. Thought Content: No delusions noted or endorsed. Perceptual Disturbances: Did not appear to respond to auditory stimuli. Safety: Suicidal Ideations: No suicidal ideation, intent or plan. Homicidal Ideations: No homicidal ideation, intent or plan. Insight: Appropriate Judgment: Appropriate I spent a total of 28 minutes on the date of the service which included preparing to see the patient, [id number] patient care, completing clinical documentation, and counseling and educating the patient/family/caregiver, ordering medications/labs. Jennifer Stoner APRN.PLUG SORTER January 29, 2022 3:12 PM This note was partially generated using [employer] voice recognition system. Note was reviewed for accuracy. There may be minor misspellings or grammar miscues with [employer] voice recognition. documented in this encounter [facility] 01-28-2022 Instructions Anna Foley APRN.CNS - 01/28/2022 10:57 AM EST Patient has been well controlled for chronic pain with MS contin and oxycodone for btp. Continue MS contin and oxycodone. OARRS reviewedd and consistent. UDS +THC but uses CBD Sign Pain contract Note: patient on eliquis Continue lidocaine-prilocaine cream Encouraged to start PT for cervical spine pain to order MRI Encouraged to contact GI specialist about rectal bleeding DC flexeril not taking Followup in 3 months documented in this encounter [facility] 01-28-2022 History of Present illness Narrative Patient was last seen by Cindy ELIAS for virtual visit on 12/20/21 for neck and shoulder pain Plan of care: OARRS reviewed Ok to use CBD without added THC Continue Oxy IR 15mg TID prn Continue MSContin 15 mg QD. Pt. Stopped Gabapentin Stop Ibuprofen Patient is on Eliquis Continue lidocaine-prilocaine cream Encouraged to continue counseling every 3 months Encouraged to follow instructions of PCP Norman Lundy/[place] shoulder steroidal injection (last inj. 08/21/2021) *FYI:Pt is on eliquis Start physical therapy for cervical spine. Once physical therapy is done, will submit for a c-spine MRI F/U in 1 month(s). Pain level 7/10 Denies ED visits or hospitalizations since last office visit Worse: moving right arm, standing Better: medications, rest, not moving right arm Describes pain in neck as constant ache that becomes sharp at times Describes pain in right shoulder as greater than left. Constant ache States has numbness in hands at times Denies falls Denies issues with bladder States he is on new rectal hemorrhoid and treated with suppository prescribed by PCP Passing some blood. Denies nausea or vomiting States has dizziness at times States has occasional headache Physical assessment: Alert and oriented x3. Skin pink, warm, dry. No conversational shortness of breath appreciated. Wearing facemask. Mood Pleasant and cooperative. Able to ascend and descend from sitting position without any difficulty. Cervical range of motion without restriction but complaints of tenderness with all motion. Negative cervical facet tenderness bilaterally. Negative Spurling sign bilaterally. Firm equal grasp bilaterally. 5/5 bilateral upper extremity muscle strength. Bilateral shoulder range of motion without restriction but complains any tenderness with all motion on the right. Positive Kumar sign on right. Negative on left. documented in this encounter [facility] 01-16-2022 Note HNO ID: [id number] Author: Amber Ramirez RDMS Service: ? Author Type: Secondary Teacher Type: Progress Notes Filed: 01/16/2022 11:10 AM Note Text: Radiology Service Progress Note PATIENT NAME: Gerald Staley DATE OF SERVICE: January 16, 2022 TIME: 11:10 AM PATIENT IDENTITY VERIFICATION COMPLETED USING TWO (2) IDENTIFIERS: Name and Date of confirmed by patient verbally. FALL SCREENING: Has the patient had 2 falls in the last year or 1 fall with injury or currently using an Ambulatory Assistive Device (Walker, Cane, Wheelchair, Crutches, etc.)? No PATIENT GENDER DATA: Male PATIENT RELEVANT IMPLANT DATA REVIEWED: Not Applicable RADIOLOGY DEPARTMENT: Ultrasound PERIPHERAL IV DATA: Not applicable SIGNED BY: Amber Ramirez RDMS January 16, 2022 11:10 AM [facility] 01-16-2022 History of Present illness Narrative Radiology Service Progress Note PATIENT NAME: Gerald Staley DATE OF SERVICE: January 16, 2022 TIME: 11:10 AM PATIENT IDENTITY VERIFICATION COMPLETED USING TWO (2) IDENTIFIERS: Name and Date of confirmed by patient verbally. FALL SCREENING: Has the patient had 2 falls in the last year or 1 fall with injury or currently using an Ambulatory Assistive Device (Walker, Cane, Wheelchair, Crutches, etc.)? No PATIENT GENDER DATA: Male PATIENT RELEVANT IMPLANT DATA REVIEWED: Not Applicable RADIOLOGY DEPARTMENT: Ultrasound PERIPHERAL IV DATA: Not applicable SIGNED BY: Amber Ramirez RDMS January 16, 2022 11:10 AM documented in this encounter [facility] 01-14-2022 Note HNO ID: [id number] Author: Chad Etienne MD Service: ? Author Type: Physician Type: Progress Notes Filed: 01/14/2022 3:35 PM Note Text: HISTORY AND PHYSICAL Gerald Staley 1960 REFERRING PHYSICIAN: Kevin Cary MD CHIEF COMPLAINT: Consult (INTERNAL HEMORRHOIDS, RECTAL BLEEDING) HPI: The patient is a 61 year old male with a complaint of painless rectal bleeding. This has been going on for approximately the last 2 months reasonably regularly. I have known him in the past for having a thrombosed hemorrhoid last year for which I did an IANDD of this. He is having no discomfort with this though. To give context with everything the patient is actively being treated for pulmonary embolus and is on Eliquis. In addition the patient has been complaining of some abdominal bloating and some epigastric discomfort. He has tried some simethicone which really did not resolve anything. He is on active omeprazole. And that has not changed. He has not had any vomiting. He has had some nausea.. The patient is being seen by me today at the request of Dr. Kevin Cary MD for my opinion and advice regarding Internal hemorrhoids Rectal bleeding Epigastric pain (primary encounter diagnosis) Nausea. PAST MEDICAL HISTORY Diagnosis Date Abnormal EKG 04/23/2017 inf [place] age undetermined Anxiety Chicken pox Colon polyps Depression ED (erectile dysfunction) Headache HTN (hypertension) Hypogonadism male 04/25/2010 Pulmonary embolism (HCC) Rectal bleed Shingles Shoulder pain pain management. PAST SURGICAL HISTORY Procedure Laterality Date COLONOSCOPY FLX DX W/COLLJ SPEC WHEN PFRMD age 40 Colonoscopy COLONOSCOPY FLX DX W/COLLJ SPEC WHEN PFRMD 06/04/2010 Colonoscopy COLONOSCOPY FLX DX W/COLLJ SPEC WHEN PFRMD 05/25/2018 Multiple Fragments of Tubular Adenoma, Diverticulosis COLONOSCOPY GEN ANES 06/27/2020 Two 4 to 7 mm polyps (adenomatous and hyperplastic ) COLSC FLX W/RMVL OF TUMOR POLYP LESION SNARE TQ 05/30/2016 adenomatous polyp - small - 5 year follow up ESOPHAGOGASTRODUODENOSCOPY TRANSORAL DIAGNOSTIC 05/25/2018 Duodenitis, Gastritis FOOT SURGERY HX Right ~ 2014 OPEN REPAIR OF ROTATOR CUFF ACUTE Right 10/2016 Rotator cuff repair - Dr. Santamaria RECONSTRUCTION ROTATOR CUFF AVULSION CHRONIC Left 03/21/2010 Dr. Stalin Clark RPR UMBILICAL HRNA 5 YRS/> REDUCIBLE 06/11/2016 simple SKIN GRAFT HX Right 1986 eyelid TONSILLECTOMY HX Childhood Current Outpatient Medications Medication Sig oxyCODONE (ROXICODONE) 15 mg immediate release tablet Take 1 tablet by mouth every 8 hours as needed for pain for up to 30 days. Do not start before January 10, 2022. morphine SR (MS CONTIN) 15 mg 12 hr tablet Take 1 tablet by mouth once daily as needed for pain for up to 30 days. for Pain lidocaine-prilocaine (EMLA) 2.5-2.5 % cream APPLY TO THE AFFECTED AREA(S) THREE TIMES DAILY NEEDED FOR PAIN. polyethylene glycol 3350 (MIRALAX) 17 gram/dose powder Dissolve dose in 4 - 8 ounces of liquid and take as directed. losartan (COZAAR) 100 mg tablet Take 1 tablet by mouth once daily. triamterene-hydroCHLOROthiazide (MAXZIDE-25MG) 37.5-25 mg per tablet Take 1 tablet by mouth once daily. omeprazole (PRILOSEC) 20 mg capsule Take 1 capsule by mouth daily before breakfast. 1/2 hr before meal. apixaban (ELIQUIS) 5 mg tab(s) Take 1 tablet by mouth twice daily. naloxone 4 mg/actuation nasal spray (NARCAN) Narcan 4 mg/actuation spray,non-aerosol lamoTRIgine (LAMICTAL) 150 mg tablet TAKE 1 TABLET BY MOUTH ONCE DAILY QUEtiapine XR (SEROQUEL XR) 150 mg Tb24 Take 1 tablet by mouth daily at bedtime. (Patient taking differently: Take 100 mg by mouth three times daily.) cyclobenzaprine (FLEXERIL) 10 mg tablet Take 1/2 - 1 tablet every 8 hours as needed for pain (Patient not taking: No sig reported) Current Facility-Administered Medications Medication Dose Route Frequency perflutren lipid microspheres 1.3 mL in NaCl (PF) 0.9% 10 mL injection (DEFINITY) INTRAVENOUS DIRECTED PRN sodium chloride 0.9 % (flush) 10 mL (BD POSIFLUSH) 10 mL INTRAVENOUS DIRECTED PRN ALLERGIES: Bakari Inhibitors and Darvocet A500 [Propoxyphene N-Acetaminophen] PERSONAL HISTORY: Social History Tobacco Use Smoking status: Never Smokeless tobacco: Never Vaping Use Vaping Use: Never used Substance Use Topics Alcohol use: Yes Alcohol/week: 15.0 standard drinks Types: 6 Cans of Beer (12oz) per week Comment: 12 pack a week FAMILY HISTORY: FAMILY HISTORY Problem Relation Age of Onset Diabetes Mother Hypertension Mother Arthritis Mother Breast Cancer Mother Dementia Mother Cancer Father throat Asthma No Family History REVIEW OF SYMPTOMS: The review of systems data was entered by the nurse and reviewed by me Nursing Notes: Rosalia GORGE Fong 01/14/2022 2:11 PM Signed REVIEW OF SYSTEMS: General: The patient NOTES fatigue, denies weight loss, denies yosef (more content not included)... [facility] 01-14-2022 History of Present illness Narrative HISTORY AND PHYSICAL Gerald Man Doyle 1960 REFERRING PHYSICIAN: Kevin Cary MD CHIEF COMPLAINT: Consult (INTERNAL HEMORRHOIDS, RECTAL BLEEDING) HPI: The patient is a 61 year old male with a complaint of painless rectal bleeding. This has been going on for approximately the last 2 months reasonably regularly. I have known him in the past for having a thrombosed hemorrhoid last year for which I did an I&D of this. He is having no discomfort with this though. To give context with everything the patient is actively being treated for pulmonary embolus and is on Eliquis. In addition the patient has been complaining of some abdominal bloating and some epigastric discomfort. He has tried some simethicone which really did not resolve anything. He is on active omeprazole. And that has not changed. He has not had any vomiting. He has had some nausea.. The patient is being seen by me today at the request of Dr. Kevin Cary MD for my opinion and advice regarding Internal hemorrhoids Rectal bleeding Epigastric pain (primary encounter diagnosis) Nausea. PAST MEDICAL HISTORY Diagnosis Date Abnormal EKG 04/23/2017 inf [place] age undetermined Anxiety Chicken pox Colon polyps Depression ED (erectile dysfunction) Headache HTN (hypertension) Hypogonadism male 04/25/2010 Pulmonary embolism (HCC) Rectal bleed Shingles Shoulder pain pain management. PAST SURGICAL HISTORY Procedure Laterality Date COLONOSCOPY FLX DX W/COLLJ SPEC WHEN PFRMD age 40 Colonoscopy COLONOSCOPY FLX DX W/COLLJ SPEC WHEN PFRMD 06/04/2010 Colonoscopy COLONOSCOPY FLX DX W/COLLJ SPEC WHEN PFRMD 05/25/2018 Multiple Fragments of Tubular Adenoma, Diverticulosis COLONOSCOPY GEN ANES 06/27/2020 Two 4 to 7 mm polyps (adenomatous and hyperplastic ) COLSC FLX W/RMVL OF TUMOR POLYP LESION SNARE TQ 05/30/2016 adenomatous polyp - small - 5 year follow up ESOPHAGOGASTRODUODENOSCOPY TRANSORAL DIAGNOSTIC 05/25/2018 Duodenitis, Gastritis FOOT SURGERY HX Right ~ 2014 OPEN REPAIR OF ROTATOR CUFF ACUTE Right 10/2016 Rotator cuff repair - Dr. Santamaria RECONSTRUCTION ROTATOR CUFF AVULSION CHRONIC Left 03/21/2010 Dr. Stalin Clark [facility] UMBILICAL HRNA 5 YRS/> REDUCIBLE 06/11/2016 simple SKIN GRAFT HX Right 1987 eyelid TONSILLECTOMY HX Childhood Current Outpatient Medications Medication Sig oxyCODONE (ROXICODONE) 15 mg immediate release tablet Take 1 tablet by mouth every 8 hours as needed for pain for up to 30 days. Do not start before January 10, 2022. morphine SR (MS CONTIN) 15 mg 12 hr tablet Take 1 tablet by mouth once daily as needed for pain for up to 30 days. for Pain lidocaine-prilocaine (EMLA) 2.5-2.5 % cream APPLY TO THE AFFECTED AREA(S) THREE TIMES DAILY NEEDED FOR PAIN. polyethylene glycol 3350 (MIRALAX) 17 gram/dose powder Dissolve dose in 4 - 8 ounces of liquid and take as directed. losartan (COZAAR) 100 mg tablet Take 1 tablet by mouth once daily. triamterene-hydroCHLOROthiazide (MAXZIDE-25MG) 37.5-25 mg per tablet Take 1 tablet by mouth once daily. omeprazole (PRILOSEC) 20 mg capsule Take 1 capsule by mouth daily before breakfast. 1/2 hr before meal. apixaban (ELIQUIS) 5 mg tab(s) Take 1 tablet by mouth twice daily. naloxone 4 mg/actuation nasal spray (NARCAN) Narcan 4 mg/actuation spray,non-aerosol lamoTRIgine (LAMICTAL) 150 mg tablet TAKE 1 TABLET BY MOUTH ONCE DAILY QUEtiapine XR (SEROQUEL XR) 150 mg Tb24 Take 1 tablet by mouth daily at bedtime. (Patient taking differently: Take 100 mg by mouth three times daily.) cyclobenzaprine (FLEXERIL) 10 mg tablet Take 1/2 - 1 tablet every 8 hours as needed for pain (Patient not taking: No sig reported) Current Facility-Administered Medications Medication Dose Route Frequency perflutren lipid microspheres 1.3 mL in NaCl (PF) 0.9% 10 mL injection (DEFINITY) INTRAVENOUS DIRECTED PRN sodium chloride 0.9 % (flush) 10 mL (BD POSIFLUSH) 10 mL INTRAVENOUS DIRECTED PRN ALLERGIES: Bakari Inhibitors and Darvocet A500 [Propoxyphene N-Acetaminophen] PERSONAL HISTORY: Social History Tobacco Use Smoking status: Never Smokeless tobacco: Never Vaping Use Vaping Use: Never used Substance Use Topics Alcohol use: Yes Alcohol/week: 15.0 standard drinks Types: 6 Cans of Beer (12oz) per week Comment: 12 pack a week FAMILY HISTORY: FAMILY HISTORY Problem Relation Age of Onset Diabetes Mother Hypertension Mother Arthritis Mother Breast Cancer Mother Dementia Mother Cancer Father throat Asthma No Family History REVIEW OF SYMPTOMS: The review of systems data was entered by the nurse and reviewed by ca Nursing Notes: Rosalia Fong LPN 01/14/2022 2:11 PM Signed REVIEW OF SYSTEMS: General: The patient NOTES fatigue, denies weight loss, denies weight gain, denies feeling hot, and denies feelings of cold. Eyes: The patient denies glaucoma, denies eye injury/surgery, does not wear glasses or contacts. Ear/Nose/Throat: The patient denies allergies, denies hayfever, denies ear infections, and denies bloody noses. Cardiovascular: The patient NOTES chest pain, denies heart disease, NOTES high blood pressure,denies cardiac stent, denies prior heart attack, denies irregular heart beat, denies high cholesterol, denies poor circulation, denies heart failure, other cardiac issues, denies claudication, denies cold feet, denies peripheral arterial stent. Respiratory: The patient denies tuberculosis, denies pneumonia, denies frequent cough, notes pulmonary embolism, denies shortness of breath, and denies coughing up blood. Gastrointestinal: The patient denies difficulty swallowing, denies acid reflux, denies ulcers, denies vomiting, denies jaundice/hepatitis, denies gallbladder problems, denies black or tarry stools, NOTES hemorrhoids, NOTES bleeding from rectum, denies diverticulitis, denies constipation, denies diarrhea, denies loss of stool control, and denies hernias. Kidney/Bladder: The patient denies kidney stones, denies urine infections, and denies bloody urine. Skin: The patient denies a history of skin cancer, denies bleeding/changing moles, and denies a history of skin rash. Neurologic: The patient denies a history of epilepsy/convulsions, NOTES headaches, denies head/spinal injuries, and denies stroke/TIA. Psychiatric: The patient NOTES psychiatric medications, NOTES depression, and denies voices, denies substance abuse. Endocrine: The patient denies thyroid disorders, denies diabetes, and denies hormonal problems. Hematologic: The patient denies a history of bruising, denies bleeding, and denies anemia, denies blood clots. Infections: The patient denies a history of measles and mumps, denies rheumatic fever, and denies sexually transmitted diseases. Musculoskeletal: The patient denies back pain/injury, denies back problems, denies sciatica, NOTES knee/foot trouble, denies arthritis, or denies gout. When was patient's last Mammogram screening? N/a Last Colonoscopy: 2020 Rosalia Fong LPN PHYSICAL EXAMINATION: General: The patient is 61 year old male, well nourished, well hydrated in no acute distress. The patient is oriented to time, place, and person. VITALS: Blood pressure 120/78, pulse 73, temperature 36.1 C (97 F), height 165.1 cm (5' 5 ), weight 99.7 kg (219 lb 12.8 oz), SpO2 96 %. HEENT: Normal cephalic, ataumatic, pupils are equally round, sclera are anicteric, mucous membranes are moist, oropharynx is clear. Neck has no masses, asymmetry or lymphadenopathy. Thyroid is unremarkable. Respiratory: Clear to auscultation and percussion. Normal respiratory excursion and pattern. Cardiac: Examination is regular rate and rhythm. Abdominal exam: Soft, nontender, with no palpable masses. No hepatosplenomegaly. No palpable hernias. Rectal exam: exam deferred Extremities: no clubbing, cyanosis or edema. No adenopathy. Other: LABORATORY VALUES: As Noted RADIOLOGIC STUDIES: As Noted Assessment IMPRESSION: Internal hemorrhoids Rectal bleeding Epigastric pain (primary encounter diagnosis) Nausea PLAN: I want him to remain on his proton pump inhibitor. I like for him to add some Pepto-Bismol to see if this might be effective in coating his stomach and relaxing the muscles. I have informed him that his stools were more than likely turned black. I am going to do serologic test for H. pylori. The present time with him actively being treated for DVT I do not think I need to do a upper endoscopy on him at this time. He is only 2 months into his treatment. With regards to his rectal bleeding and going to get rectal suppositories at [facility] and follow back up with him in 1 month. Patient has a lot of other symptoms specifically with urination headaches brain fog and I told him that is probably pretty important that he keeps in contact with Dr. Cary on a fairly regular basis right now. Diagnoses: (R10.13) Epigastric pain (primary encounter diagnosis) (K64.8) Internal hemorrhoids (K62.5) Rectal bleeding (R11.0) Nausea My findings have been communicated to Dr. Kevin Cary MD via shared medical record. This note will be forwarded to Dr. Kevin Cary MD. Return to Clinic: The patient is instructed to follow-up with me in 1 month. Chad Etienne III, MD documented in this encounter [facility] 01-14-2022 Nurse Note REVIEW OF SYSTEMS: General: The patient NOTES fatigue, denies weight loss, denies weight gain, denies feeling hot, and denies feelings of cold. Eyes: The patient denies glaucoma, denies eye injury/surgery, does not wear glasses or contacts. Ear/Nose/Throat: The patient denies allergies, denies hayfever, denies ear infections, and denies bloody noses. Cardiovascular: The patient NOTES chest pain, denies heart disease, NOTES high blood pressure,denies cardiac stent, denies prior heart attack, denies irregular heart beat, denies high cholesterol, denies poor circulation, denies heart failure, other cardiac issues, denies claudication, denies cold feet, denies peripheral arterial stent. Respiratory: The patient denies tuberculosis, denies pneumonia, denies frequent cough, notes pulmonary embolism, denies shortness of breath, and denies coughing up blood. Gastrointestinal: The patient denies difficulty swallowing, denies acid reflux, denies ulcers, denies vomiting, denies jaundice/hepatitis, denies gallbladder problems, denies black or tarry stools, NOTES hemorrhoids, NOTES bleeding from rectum, denies diverticulitis, denies constipation, denies diarrhea, denies loss of stool control, and denies hernias. Kidney/Bladder: The patient denies kidney stones, denies urine infections, and denies bloody urine. Skin: The patient denies a history of skin cancer, denies bleeding/changing moles, and denies a history of skin rash. Neurologic: The patient denies a history of epilepsy/convulsions, NOTES headaches, denies head/spinal injuries, and denies stroke/TIA. Psychiatric: The patient NOTES psychiatric medications, NOTES depression, and denies voices, denies substance abuse. Endocrine: The patient denies thyroid disorders, denies diabetes, and denies hormonal problems. Hematologic: The patient denies a history of bruising, denies bleeding, and denies anemia, denies blood clots. Infections: The patient denies a history of measles and mumps, denies rheumatic fever, and denies sexually transmitted diseases. Musculoskeletal: The patient denies back pain/injury, denies back problems, denies sciatica, NOTES knee/foot trouble, denies arthritis, or denies gout. When was patient's last Mammogram screening? N/a Last Colonoscopy: 2020 Rosalia Fong LPN documented in this encounter [facility] 01-13-2022 Note HNO ID: [id number] Author: LISA Orellana Service: ? Author Type: Respiratory Therapist Type: Progress Notes Filed: 01/13/2022 10:44 AM Note Text: PULM FUNCTION SMARTBLOCK: Provider: Kevin Cary MD Assisting Tech: LISA Orellana Spirometry w/BD: 1 DLCO: 1 LV - Box: 1 [facility] 01-13-2022 History of Present illness Narrative PULM FUNCTION SMARTBLOCK: Provider: Kevin Cary MD Assisting Tech: LISA Orellana Spirometry w/BD: 1 DLCO: 1 LV - Box: 1 documented in this encounter [facility] 01-08-2022 Miscellaneous Notes The following approved medication requests have been transmitted electronically. Requested Prescriptions Signed Prescriptions Disp Refills oxyCODONE (ROXICODONE) 15 mg immediate release tablet 90 tablet 0 Sig: Take 1 tablet by mouth every 8 hours as needed for pain for up to 30 days. Do not start before January 10, 2022. Authorizing Provider: CINDY CRAMER morphine SR (MS CONTIN) 15 mg 12 hr tablet 30 tablet 0 Sig: Take 1 tablet by mouth once daily as needed for pain for up to 30 days. for Pain Authorizing Provider: CINDY CRAMER APRN.PLUG SORTER Pt requesting refill as follows Requested Prescriptions Pending Prescriptions Disp Refills oxyCODONE (ROXICODONE) 15 mg immediate release tablet 90 tablet 0 Sig: Take 1 tablet by mouth every 8 hours as needed for pain for up to 30 days. Do not start before January 10, 2022. morphine SR (MS CONTIN) 15 mg 12 hr tablet 30 tablet 0 Sig: Take 1 tablet by mouth once daily as needed for pain for up to 30 days. for Pain Please review and advise. Annabelle Green RN documented in this encounter [facility] 01-08-2022 Miscellaneous Notes Left patient a detailed message on identifiable voicemail. Advised to return call to schedule liver us. Labs are all ok. Other than one liver enzyme is up. Avoid any etoh. Will follow. Do labs in one month and liver us. documented in this encounter [facility] 01-06-2022 Miscellaneous Notes Detailed message left on patient's secure line. Stacia Wurst, RN His labs are ok, however, his calcium appears low. Is often due to lab error etc. To be on safe side, lets repeat more labs this week documented in this encounter [facility] 01-04-2022 Note HNO ID: [id number] Author: RT Melly(R) Service: ? Author Type: Secondary Teacher Type: Progress Notes Filed: 01/04/2022 11:38 AM Note Text: Radiology Service Progress Note PATIENT NAME: Gerald Staley DATE OF SERVICE: January 04, 2022 TIME: 11:31 AM PATIENT IDENTITY VERIFICATION COMPLETED USING TWO (2) IDENTIFIERS: Name and Date of confirmed by patient verbally. FALL SCREENING: Has the patient had 2 falls in the last year or 1 fall with injury or currently using an Ambulatory Assistive Device (Walker, Cane, Wheelchair, Crutches, etc.)? No PATIENT GENDER DATA: Male PATIENT RELEVANT IMPLANT DATA REVIEWED: Yes RADIOLOGY DEPARTMENT: General X-ray: Exam(s) Completed: Chest X-Ray PERIPHERAL IV DATA: Not applicable SIGNED BY: RT Melly(R) January 04, 2022 11:31 AM [facility] 01-04-2022 Note HNO ID: [id number] Author: Kevin Cary MD Service: ? Author Type: Physician Type: Progress Notes Filed: 01/04/2022 12:24 PM Note Text: Patient presents with: Follow Up HPI: Patient presents today for office visit for follow up. Accompanied by his spouse today. Still feels badly: Still with chronic chest pain. Worried what can be causing it, however, has not followed what he was supposed to do. We had a kaylen discussion about compliance and the fact that his emotional state may be contributing to meena of his symptoms. When asked why he is not keeping appointments, he cannot really give an explanation. Discussed that I have done as much work up for his chest pain that I can do. He has had multiple cts. He has had stress test, echo and did have a heart cath in 2019. Had egd in 2019. Remains tired and fatigued and appears clinically depressed. He did not see Jennifer for follow up. 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 He is being treated for his PE for three more months. He is not drinking as much. He is taking his meds. He is having worsening shortness of breath. Is coughing over the last few weeks. Is not bringing up anything. No definite fevers. Is not constant and does not feel ill. Had some bleeding yesterday in the toilet bowel. Has had recurrent bleeding on and off in the past. Had colonoscopy ;last year. No bleeding today. Can intermittently feel discomfort and may feel something when moving the bowels. Has hemorrhoids noted in the past on his scopes. Is on eliquis. No new abd pain. Has noted constipation due to his opiate use and is not using his miralax he is supposed to. Again had discussion regarding med compliance. Note was copied and pasted, without alteration from 11/04/21 Patient presents today for office visit for hospital follow up. Was in Hospital twice. [facility] and . Dx with Covid and blood clots in lungs Presented initially to [facility] with new onset Rt sided chest pain or four day duration. Diagnosed by Ct with a PE. Was begun on anticoagulation. He then went back to ER and [facility] declined admit so was admitted to [facility] where the diagnosed with with covid, likely causing the PE. Continued on eliquis for six months. Was treated with remdesivir and decadron and discharged. Apparently was also in the hospital at after because he still had chest pain. Had a rule out mi protocol done. The thought has been that his chest pain is probably musculoskeletal at [facility] It starts in the lower ribs, has been there for literally months and is not exertional. Pain is reproducible by palpating the left ribs and with movement. Also the PE is right sided and primarily his pain has been left sided. He describes having lightheaded spells at time showever family tells me he is very noncompliant with meds including his psych meds and bp meds which could be contributing. He did have a previous normal heart cath. He would still like to see cardiology. He sees pain management soon. We discussed risks and benefits of eliquis and the fact that not taking that medication regularly could cause life threatining issues. Denies any current gi issues. Remains on prilosec. Advised him to stop nsaids while on eliquis. No previous hx of dvt or pe. The PE was likely provoked by his covid. No current cough or congestion. No new shortness of breath. No edema No bleeding issues. He was not immunized. Did have colonoscopy in 2020 Will follow labs at next visit and add psa as screening. Discussed potentially treating his PE for six months and consider hypercoag panel after tx. MEDICATIONS: Current Outpatient Medications Medication Sig [START ON 01/07/2022] morphine SR (MS CONTIN) 15 mg 12 hr tablet Take 1 tablet by mouth once daily as needed for pain for up to 30 days. for Pain Do not start before January 07, 2022. [START ON 01/10/2022] oxyCODONE (ROXICODONE) 15 mg immediate release tablet Take 1 tablet by mouth every 8 hours as needed for pain for up to 30 days. Do not start before January 10, 2022. lidocaine-prilocaine (EMLA) 2.5-2.5 % cream APPLY TO THE AFFECTED AREA(S) THREE TIMES DAILY NEEDED FOR PAIN. polyethylene glycol 3350 (MIRALAX) 17 gram/dose powder Dissolve dose in 4 - 8 ounces of liquid and take as directed. losartan (COZAAR) 100 mg tablet Take 1 tablet by mouth once daily. triamterene-hydroCHLOROthiazide (MAXZIDE-25MG) 37.5-25 mg per tablet Take 1 tablet by mouth once daily. omeprazole (PRILOSEC) 20 mg capsule Take 1 capsule by mouth daily before breakfast. 1/2 hr before meal. apixaban (ELIQUIS) 5 mg tab(s) Take 1 tablet by mouth twice daily. lamoTRIgine (LAMICTAL) 150 mg tablet TAKE 1 TABLET BY MOUTH ONCE DAILY QUEtiapine XR (SEROQUEL XR) 150 mg Tb24 Take 1 tablet by mouth daily at bedtime. (Patient taking differently: Take 100 mg by mouth daily at bedtime.) naloxone 4 mg/actuation nasal spr (more content not included)... [facility] 12-20-2021 Instructions Cindy Cramer APRN.JADA - 12/20/2021 1:20 PM EDT OARRS reviewed Ok to use CBD without added THC Continue Oxy IR 15mg TID prn Continue MSContin 15 mg QD. Pt. Stopped Gabapentin Stop Ibuprofen Patient is on Eliquis Continue lidocaine-prilocaine cream Encouraged to continue counseling every 3 months Encouraged to follow instructions of PCP Norman Cary B/L shoulder steroidal injection (last inj. 08/21/2021) *FYI:Pt is on eliquis Start physical therapy for cervical spine. Once physical therapy is done, will submit for a c-spine MRI F/U in 1 month(s). Cindy Cramer APRN.JADA documented in this encounter [facility] 12-20-2021 History of Present illness Narrative This video visit was performed via [employer] video visit. Patient consented to receive health care services via virtual visit for this encounter Provider Location: [facility] Facility Patient Location: Patient Home or Place of Residence Risks, benefits, and limitations of receiving care virtually were discussed with the patient. The patient expressed understanding and is willing to proceed. Chief Complaint: Pain History of Present Illness: Gerald Staley is a 61 year old year old male being seen at [facility] for a evaluation and/or management of his chronic pain. He states that since the last visit symptoms have been stable. VAS: 8/10 Pain locatoion: rt shoulder & neck pain Timing: constant Severity: moderate Quality: sharp, aching Radiation: yes, down entire b/l arms Numbness: yes, fingers in rt fingers & hands Burning: yes, rt shoulder & hand Tingling: yes, rt shouler & b/l hands Weakness: yes, rt arm Falls: denies Alleviating Factors: pain meds, rest Aggravating Factors: work, any movement The patient denies any bowel or bladder dysfunction. Since the last office visit the patients medical history has not changed. The patient denies any new diagnoses, hospital visits or ER visits. The patient is currently prescribed Oxycodone, MSContin, Neurontin, mirilax and Ibuprofen from our office. The last dose of Oxycodone was taken 8a.m. today. The medications are partially effective. The patient denies nausea, vomiting, constipation,rashes, drowsiness,weight gain, weight loss,dizziness,and fatigue. Pt stopped taking the Neurontin 6 weeks ago d/t memory loss. He states that his memory has gotten better since he hasn't been taking it. Pt would like to try a different medication for the neuropathy at a different time The OARRS report has been reviewed and is consistent with the patients medical history and medication intake. Last Urine Drug Screen (UDS): 11/22/21. The UDS has been reviewed and is consistent with medications prescribed and CBD oil without added THC. Pain Contract: 02/20/21 REVIEW OF SYSTEMS: GENERAL: No weight loss or fevers RESPIRATORY: Negative for cough CARDIOVASCULAR: Negative for chest pain GI: No nausea, vomiting, or diarrhea. MUSCULOSKELETAL: + for joint pain or swelling, back pain and muscle pain @lastpdiallquestions@ PAST MEDICAL HISTORY Diagnosis Date Abnormal EKG 04/23/2017 inf [place] age undetermined Anxiety Chicken pox Colon polyps Depression ED (erectile dysfunction) Headache HTN (hypertension) Hypogonadism male 04/25/2010 Pulmonary embolism (HCC) Rectal bleed Shingles Shoulder pain pain management. PAST SURGICAL HISTORY Procedure Laterality Date COLONOSCOPY FLX DX W/COLLJ SPEC WHEN PFRMD age 40 Colonoscopy COLONOSCOPY FLX DX W/COLLJ SPEC WHEN PFRMD 06/04/2010 Colonoscopy COLONOSCOPY FLX DX W/COLLJ SPEC WHEN PFRMD 05/25/2018 Multiple Fragments of Tubular Adenoma, Diverticulosis COLONOSCOPY GEN ANES 06/27/2020 Two 4 to 7 mm polyps (adenomatous and hyperplastic ) COLSC FLX W/RMVL OF TUMOR POLYP LESION SNARE TQ 05/30/2016 adenomatous polyp - small - 5 year follow up ESOPHAGOGASTRODUODENOSCOPY TRANSORAL DIAGNOSTIC 05/25/2018 Duodenitis, Gastritis FOOT SURGERY HX Right ~ 2014 OPEN REPAIR OF ROTATOR CUFF ACUTE Right 10/2016 Rotator cuff repair - Dr. Santamaria RECONSTRUCTION ROTATOR CUFF AVULSION CHRONIC Left 03/21/2010 Dr. Stalin Clark RPR UMBILICAL HRNA 5 YRS/> REDUCIBLE 06/11/2016 simple SKIN GRAFT HX Right 1987 eyelid TONSILLECTOMY HX Childhood FAMILY HISTORY Problem Relation Age of Onset Diabetes Mother Hypertension Mother Arthritis Mother Breast Cancer Mother Dementia Mother Cancer Father throat Asthma No Family History Social History Tobacco Use Smoking status: Never Smokeless tobacco: Never Vaping Use Vaping Use: Never used Substance Use Topics Alcohol use: Yes Alcohol/week: 15.0 standard drinks Types: 6 Cans of Beer (12oz) per week Comment: 12 pack a week Drug use: Yes Types: Marijuana Allergies: Bakari Inhibitors Cough Darvocet A500 [Prop* GI Upset Current Outpatient Medications Medication Sig morphine SR (MS CONTIN) 15 mg 12 hr tablet Take 1 tablet by mouth once daily as needed for pain for up to 30 days. for Pain Do not start before December 08, 2021. oxyCODONE (ROXICODONE) 15 mg immediate release tablet Take 1 tablet by mouth every 8 hours as needed for pain for up to 30 days. Do not start before December 11, 2021. lidocaine-prilocaine (EMLA) 2.5-2.5 % cream APPLY TO THE AFFECTED AREA(S) THREE TIMES DAILY NEEDED FOR PAIN. gabapentin (NEURONTIN) 300 mg capsule Take 1 capsule by mouth three times daily for 30 days. Do not start before November 09, 2021. polyethylene glycol 3350 (MIRALAX) 17 gram/dose powder Dissolve dose in 4 - 8 ounces of liquid and take as directed. losartan (COZAAR) 100 mg tablet Take 1 tablet by mouth once daily. triamterene-hydroCHLOROthiazide (MAXZIDE-25MG) 37.5-25 mg per tablet Take 1 tablet by mouth once daily. omeprazole (PRILOSEC) 20 mg capsule Take 1 capsule by mouth daily before breakfast. 1/2 hr before meal. apixaban (ELIQUIS) 5 mg tab(s) Take 1 tablet by mouth twice daily. lamoTRIgine (LAMICTAL) 150 mg tablet TAKE 1 TABLET BY MOUTH ONCE DAILY QUEtiapine XR (SEROQUEL XR) 150 mg Tb24 Take 1 tablet by mouth daily at bedtime. (Patient taking differently: Take 100 mg by mouth daily at bedtime.) naloxone 4 mg/actuation nasal spray (NARCAN) Narcan 4 mg/actuation spray,non-aerosol cyclobenzaprine (FLEXERIL) 10 mg tablet Take 1/2 - 1 tablet every 8 hours as needed for pain Current Facility-Administered Medications Medication Dose Route Frequency perflutren lipid microspheres 1.3 mL in NaCl (PF) 0.9% 10 mL injection (DEFINITY) INTRAVENOUS DIRECTED PRN sodium chloride 0.9 % (flush) 10 mL (BD POSIFLUSH) 10 mL INTRAVENOUS DIRECTED PRN ASSESSMENT: Patient is stable. Chronic pain is persistent. Medications are helping Gerald Staley to have an improved quality of life. Patient compliance with Opioid Contract: patient is compliant Encounter Diagnosis ICD-10-CM 1. Rotator cuff impingement syndrome, unspecified laterality M75.40 2. Osteoarthritis of both shoulders, unspecified osteoarthritis type M19.011 M19.012 3. Neck pain M54.2 4. Rotator cuff syndrome, unspecified laterality M75.100 5. Cervicalgia M54.2 6. High risk medications (not anticoagulants) long-term use Z79.899 7. Constipation due to opioid therapy K59.03 T40.2X5A 8. Chronic pain syndrome G89.4 PLAN: The patient understands the goal of our treatment is a reduction in pain and/or an improved level of functioning with activities of daily living. If at any time the patient does not feel the medications are helping them to achieve these goals, the medications may be discontinued. The patient reports a reduction in pain and/or an improved level of functioning with activities of daily living, denies any significant adverse effects, is compliant with the pain management agreement and there are no signs of medication misuse, abuse or diversion; therefore, the medications will be continued. OARRS reviewed Ok to use CBD without added THC Continue Oxy IR 15mg TID prn Continue MSContin 15 mg QD. Pt. Stopped Gabapentin Stop Ibuprofen Patient is on Eliquis Continue lidocaine-prilocaine cream Encouraged to continue counseling every 3 months Encouraged to follow instructions of PCP Norman Cary B/[place] shoulder steroidal injection (last inj. 08/21/2021) *FYI:Pt is on eliquis Start physical therapy for cervical spine. Once physical therapy is done, will submit for a c-spine MRI A prescription for narcan (naloxone) has been offered to the patient. F/U in 1 month(s). Cindy Cramer APRN.CNP documented in this encounter [facility] 12-03-2021 Miscellaneous Notes The following approved medication requests have been transmitted electronically. Requested Prescriptions Signed Prescriptions Disp Refills morphine SR (MS CONTIN) 15 mg 12 hr tablet 30 tablet 0 Sig: Take 1 tablet by mouth once daily as needed for pain for up to 30 days. for Pain Do not start before December 08, 2021. Authorizing Provider: CINDY CRAMER oxyCODONE (ROXICODONE) 15 mg immediate release tablet 90 tablet 0 Sig: Take 1 tablet by mouth every 8 hours as needed for pain for up to 30 days. Do not start before December 11, 2021. Authorizing Provider: CINDY CRAMER lidocaine-prilocaine (EMLA) 2.5-2.5 % cream 30 g 0 Sig: APPLY TO THE AFFECTED AREA(S) THREE TIMES DAILY NEEDED FOR PAIN. Authorizing Provider: CINDY CRAMER APRN.CNP Patient phones requesting refills as follows: Requested Prescriptions Pending Prescriptions Disp Refills morphine SR (MS CONTIN) 15 mg 12 hr tablet 30 tablet 0 Sig: Take 1 tablet by mouth once daily as needed for pain for up to 30 days. for Pain oxyCODONE (ROXICODONE) 15 mg immediate release tablet 90 tablet 0 Sig: Take 1 tablet by mouth every 8 hours as needed for pain for up to 30 days. lidocaine-prilocaine (EMLA) 2.5-2.5 % cream 30 g 0 Sig: APPLY TO THE AFFECTED AREA(S) THREE TIMES DAILY NEEDED FOR PAIN. Please review and advise. Lyla Babb RN documented in this encounter [facility] 11-22-2021 Miscellaneous Notes Noted. His order is already entered Pt returned our call, notified him to come today for uds, he said ok , I reviewed office hours with him Ileana Roa RN November 22, 2021 10:03 AM Lmom to call the office Ileana Roa RN November 22, 2021 9:45 AM Please call him again today. Thank you! Attempted to call the pt for UDS today, message left to call the office back. Please advise. Annabelle Green RN November 21, 2021 8:06 AM documented in this encounter [facility] 11-06-2021 History of Present illness Narrative Summary: Follow Up: Virtual Visit This video visit was performed via [employer] video visit. Patient consented to receive health care services via virtual visit for this encounter Provider Location: [facility] Facility Patient Location: Patient Home or Place of Residence Risks, benefits, and limitations of receiving care virtually were discussed with the patient. The patient expressed understanding and is willing to proceed. Chief Complaint: Pain History of Present Illness: Gerald Staley is a 61 year old year old male being seen at [facility] for a evaluation and/or management of his chronic pain. He states that since the last visit symptoms have been stable. The patient was recently hospitalized with pulmonary embolisms in both lungs. He is now on Eliquis for this. I explained to him that since he is on Eliquis, he can no longer take ibuprofen. He verbalized understanding. He was also diagnosed with pleurisy. I instructed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 to auscultation bilaterally, no crackles or wheezing or rhonchi Cardiovascular: Regular, rate and rhythm, no murmurs, 2+ equal pulses of the extremities Gastrointestinal: nondistended, positive bowel sounds, soft, non-tender, no rebound tenderness or guarding, no masses palpable, no organomegaly Extremities: no edema Neurological: intact senses, motor, response and reflexes, normal strength, babinski negative Psychological: Appropriate mood and behavior Skin: warm, no rashes Recent Lab Results: Results: CBC: 10/31/2021 22:57 \ Hgb / \ 14.6 / WBC Plt 7.7 290 / Hct \ / 43.2 \ RBC: 4.86 MCV: 89 Neutrophil %: 64.3 CMP: 10/31/2021 22:58 NA+ Cl- BUN / 136 101 22 / Glucose 145 H K+ HCO3- Creat \ 3.8 28 1.21 \ \ T Bili / \ 0.8 / AST x ---- x ALT 15 x ---- x 37 / Alk P \ / 80 \ Calcium : 8.7 Anion Gap : 11 Albumin : 3.6 T Protein : 5.7 L Radiology Results: Results: Impression: No acute pulmonary embolism identified to the mid segmental level within constraints of artifact and low lung volumes. Right costophrenic angle consolidative opacities likely atelectasis. Hepatomegaly, small hiatal hernia and diverticulosis. CT Angio Chest for PE [Nov 01 2021 12:55AM] Assessment and Plan: Assessment: 61-year-old obese male with a past medical history of hypertension, cervicalgia, rotator cuff syndrome s/p left rotator cuff repair with residual chronic bilateral shoulder pain on opioids, hyperlipidemia, depr (more content not included)... [facility] 10-28-2021 Miscellaneous Notes Pharmacy electronically requesting refill(s): [facility] Last appt: 08/22/21 Upcoming appt: 12/04/21 Requested Prescriptions Pending Prescriptions Disp Refills lamoTRIgine (LAMICTAL) 150 mg tablet [Pharmacy Med Name: lamotrigine 150 mg tablet] 30 tablet 1 Sig: TAKE 1 TABLET BY MOUTH ONCE DAILY Please review and process accordingly. Thank you! Desi Feliciano documented in this encounter [facility] 10-26-2021 Note Discharge Summary Gerald Staley : 1960 ADMIT DATE: 10/22/2021 DISCHARGE DATE: 10/26/2021 PRIMARY CARE PHYSICIAN: Kevin Cary MD VISIT STATUS: Admission CODE STATUS: Full Code DISCHARGE DIAGNOSES: PE Covid 19 infection/pneumonia HTN GERD Hypothyroidism depression HOSPITAL COURSE: 61 year old presented with SOB, weakness and fevers. He was found to be COVID 19 positive and had a PE on CTA chest. He was admitted and given eliquis and remdesivir/dexamethasone. He was seen by Pulmonology. He improved over his stay. He completed a course of remdesivir IV, was doing well and was discharged home. SIGNIFICANT DIAGNOSTIC STUDIES: none CONSULTANTS: Pulmonology RECOMMENDED NEXT STEPS: Continue eliquis for at least six months. Follow up with PCP as an outpatient. Physical Exam: General appearance: alert, cooperative and no distress Mental Status: oriented to person, place and time and normal affect Lungs: clear to auscultation bilaterally, normal effort Heart: regular rate and rhythm, no murmur Abdomen: soft, nontender, nondistended, bowel sounds present, no masses Extremities: no edema, redness, tenderness in the calves Skin: no gross lesions, rashes DISCHARGE MEDICATIONS: Medication List START taking these medications albuterol sulfate HFA 108 (90 Base) MCG/ACT inhaler Commonly known as: PROVENTIL;VENTOLIN;PROAIR Inhale 2 puffs into the lungs every 4 hours as needed for Wheezing * apixaban 5 MG Tabs tablet Commonly known as: ELIQUIS Take 2 tablets by mouth 2 times daily for 5 doses * apixaban 5 MG Tabs tablet Commonly known as: ELIQUIS Take 1 tablet by mouth 2 times daily Start taking on: October 29, 2021 gabapentin 600 MG tablet Commonly known as: NEURONTIN Take 0.5 tablets by mouth 3 times daily for 30 days. losartan 100 MG tablet Commonly known as: COZAAR Take 1 tablet by mouth daily Start taking on: October 27, 2021 oxyCODONE 15 MG immediate release tablet Commonly known as: OXY-IR Take 1 tablet by mouth every 6 hours as needed for Pain for up to 3 days. triamterene-hydroCHLOROthiazide 37.5-25 MG per tablet Commonly known as: MAXZIDE-25 Take 1 tablet by mouth daily Start taking on: October 27, 2021 * This list has 2 medication(s) that are the same as other medications prescribed for you. Read the directions carefully, and ask your doctor or other care provider to review them with you. Where to Get Your Medications These medications were sent to [id number] - [place], [place] - [address] - P [phone] - F [phone] [facility] [id number] albuterol sulfate HFA 108 (90 Base) MCG/ACT inhaler apixaban 5 MG Tabs tablet apixaban 5 MG Tabs tablet gabapentin 600 MG tablet losartan 100 MG tablet triamterene-hydroCHLOROthiazide 37.5-25 MG per tablet You can get these medications from any pharmacy Bring a paper prescription for each of these medications oxyCODONE 15 MG immediate release tablet DIET: ADULT DIET; Regular ADULT ORAL NUTRITION SUPPLEMENT; Breakfast, Dinner; Standard High Calorie/High Protein Oral Supplement ACTIVITY: No restriction. up with assist COMPLEXITY OF FOLLOW UP: [] Moderate Complexity: follow up within 7-14 calendar days ([id number]) [] Severe Complexity: follow up within 7 calendar days ([id number]) FOLLOW UP TESTING, PENDING RESULTS OR REFERRALS AT TRANSITIONAL CARE VISIT: [] Yes [] No PENDING STUDIES: No DISPOSITION: Home FACILITY/HOME CARE AGENCY NAME: Follow up with Kevin Cary MD [address] [place] [address] Follow up on 10/29/2021 INSTRUCTIONS TO MA/SW: Please call patient on day after discharge (must document patient contacted within 2 business days of discharge). FOLLOW UP QUESTIONS FOR MA/SW: 1. Did you get medications filled and taking them as instructed from discharge? 2. Are you following your discharge instructions from your hospital stay? 3. Please confirm patient is scheduled for a follow up appointment within the above time frame. DISCHARGE TIME: > 30 minutes SIGNED: PRISCILLA BOOKER MD 10/26/2021, 12:03 PM [facility] 10-26-2021 Hospital Discharge instructions Priscilla Booker MD - 10/26/2021 12:02 PM EDT No climbing, avoid activities where you can be cut or fall. Priscilla Booker MD - 10/26/2021 12:02 PM EDT Good nutrition is important when healing from an illness, injury, or surgery. Follow any nutrition recommendations given to you during your hospital stay. If you were given an oral nutrition supplement while in the hospital, continue to take this supplement at home. You can take it with meals, in-between meals, and/or before bedtime. These supplements can be purchased at most local grocery stores, pharmacies, and chain super-stores. If you have any questions about your diet or nutrition, call the hospital and ask for the dietitian. Low fat/low salt diet documented in this encounter [facility] Work Phone: 10-25-2021 History of Present illness Narrative Progress Note 10/25/2021 10:17 PM Name: Gerald Staley IP Day: 3 Admit Date: 10/22/2021 5:20 AM PCP: Kevin Cary MD Code Status: Full Code Subjective: No n/v, f/c, palpitations. Tolerating diet. Improving. D/w pt and at bedside. Physical Examination: Vitals: BP 127/82 Pulse 56 Temp 97.2 F (36.2 C) (Temporal) Resp 16 Ht 5' 5 (1.651 m) Wt 220 lb (99.8 kg) SpO2 95% BMI 36.61 kg/m Temp (24hrs), Av.5 F (36.4 C), Min:97.2 F (36.2 C), Max:97.7 F (36.5 C) General appearance: alert, cooperative and no distress Mental Status: oriented to person, place and time and normal affect Lungs: coarse bs bilaterally, normal effort Heart: regular rate and rhythm, no murmur Abdomen: soft, nontender, nondistended, bowel sounds present, no masses Extremities: no edema, redness, tenderness in the calves Skin: no gross lesions, rashes Data: Labs: Recent Labs 10/23/21 0407 10/25/21 0331 WBC 12.7* 11.8* HGB 14.1 14.2 PLT 232 257 Recent Labs 10/23/21 0540 10/25/21 0331 NA 136 133* K 4.8 4.0 CL 102 102 CO2 24 25 BUN 22* 30* CREATININE 0.86 0.91 GLUCOSE 125* 96 Recent Labs 10/23/21 0540 10/25/21 0331 AST 57* 58* ALT 40 65* BILITOT 1.2 0.5 ALKPHOS 84 77 Assessment and Plan: PE Covid 19 infection/pneumonia HTN GERD Hypothyroidism depression Plan: continue eliquis, continue decadron/remdesivir, IS, increase activity, follow up labs and clinically, Pulmonology following, discharge planning-10/26 once remdesivir rx complete, see orders. [facility] Respiratory Care Department Progress Note SpO2 at rest on RA = 95% HR at rest = 58 SpO2 with ambulation on RA = 94% Peak HR = 72 Distance Walked = 60ft Recovery SpO2 with ambulation = 97% Recovery HR = 56 Recovery SpO2 with lpm with ambulation (if needed) = na Qualify for home O2 Y/N = No Patient mobile at home Y/N = Yes Comprehensive Nutrition Assessment Type and Reason for Visit: Initial, Consult (DT ref for poor nutrition) Nutrition Recommendations/Plan: Continue with Regular diet. Initiate Ensure Plus High protein BID per MNT protocol. Ensure Plus High Protein provides 350 kcals, 20g protein per serving. Pt prefers strawberry flavor. Please document pt's PO intakes via flowsheet to accurately assess PO intake adequacy. Monitor intakes, wts, and labs. RD will follow. 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 Called pt's room this afternoon, and his answered, stated that pt's appetite is currently poor. Prior to feeling ill, stated that pt had a good appetite otherwise. Reportedly has his sense of taste and smell, but no appetite. Denied nausea/vomiting. Nutrition Related Findings: no edema; Na 133, BUN 30, CRP 58.0, Vitamin D 49, Hgb 14.2, Hct 42.6, albumin 3.8 Wound Type: None Current Nutrition Intake & Therapies: Average Meal Intake: 26-50% Average Supplements Intake: None Ordered ADULT DIET; Regular ADULT ORAL NUTRITION SUPPLEMENT; Breakfast, Dinner; Standard High Calorie/High Protein Oral Supplement Anthropometric Measures: Height: 5' 5 (165.1 cm) Ramona Body Weight (IBW): 136 lbs (62 kg) Admission Body Weight: 220 lb (99.8 kg) Current Body Weight: 220 lb (99.8 kg), 161.8 % IBW. Weight Source: Stated Current BMI (kg/m2): 36.6 Weight Adjustment For: No Adjustment BMI Categories: Obese Class 2 (BMI 35.0 -39.9) Estimated Daily Nutrient Needs: Energy Requirements Based On: Kcal/kg Weight Used for Energy Requirements: Ramona Energy (kcal/day): 9269-8465 kcals (28-30) Weight Used for Protein Requirements: Ramona Protein (g/day): 74-93 (1.2-1.5) Method Used for Fluid Requirements: 1 ml/kcal Fluid (ml/day): 1860 ml/day or per MD Nutrition Diagnosis: Inadequate oral intake related to acute injury/trauma, impaired respiratory function as evidenced by intake 26-50% Nutrition Interventions: Food and/or Nutrient Delivery: Continue Current Diet, Start Oral Nutrition Supplement Nutrition Education/Counseling: No recommendation at this time Coordination of Nutrition Care: Continue to monitor while inpatient Plan of Care discussed with: Goals: Goals: PO intake 75% or greater, by next RD assessment Nutrition Monitoring and Evaluation: Behavioral-Environmental Outcomes: None Identified Food/Nutrient Intake Outcomes: Diet Advancement/Tolerance, Food and Nutrient Intake, Supplement Intake Physical Signs/Symptoms Outcomes: Biochemical Data, GI Status, Fluid Status or Edema, Weight, Skin, Nutrition Focused Physical Findings Discharge Planning: Continue current diet, Continue Oral Nutrition Supplement Christina Munoz RD, LD Contact: *[phone] Images from the original note were not included. [facility], Pulmonary Critical Care and Sleep Medicine Patient - Gerald Staley, Age - 61 y.o. - 1960 Room Number - [phone] Consulting - Chad Light MD Primary Care Physician - [facility] Cary [id number] Date of Admission - 10/22/2021 5:20 AM Hospital Day - 3 Subjective/Events Past 24 hours/ROS Patient feeling better Improved rt lower quadrant Pleuritic chest pain Afebrile O2 sat 96% on RA Afebrile, Appetite good All other systems reviewed Objective Vitals height is 5' 5 (1.651 m) and weight is 220 lb (99.8 kg). His temporal temperature is 97.7 F (36.5 C). His blood pressure is 121/81 and his pulse is 54. His respiration is 16 and oxygen saturation is 96%. I/O No intake or output data in the 24 hours ending 10/25/21 1022 Patient Vitals for the past 96 hrs (Last 3 readings): Weight 10/22/212044 220 lb (99.8 kg) Exam General Appearance Awake, alert, oriented, in no acute distress HEENT - normocephalic, atraumatic, sclarea is anicteric, conjunctiva is pink, nasal mucosa is normal, no congestion, external ears are intact. Neck - Supple, trachea midline Lymph nodes- no cervical, clavicular, or posterior auricular lymphadenopathy Lungs Normal effort diminished breath sounds at the bases. No wheezing Cardiovascular - Heart sounds are normal. Regular rate and rhythm Abdomen - Soft, nontender, nondistended, no masses or organomegaly Neurologic - Awake, alert, follows commands. Cranial nerves II-XII are intact, There are no focal motor deficits grossly Skin - No bruising or bleeding, good turgor, normal warmth Extremities - No clubbing, cyanosis, edema Peripheral pulses- present bilaterally and symmetric Psychiatric: appropriate, oriented to person, place and time/date No suicidal ideation Meds apixaban 10 mg Oral BID Followed by [START ON 10/29/2021] apixaban 5 mg Oral BID dexamethasone 6 mg Oral Daily remdesivir IVPB 100 mg IntraVENous Q24H morphine 15 mg Oral Daily sodium chloride flush 5-40 mL IntraVENous 2 times per day miconazole Topical BID losartan 100 mg Oral Daily triamterene-hydroCHLOROthiazide 1 tablet Oral Daily gabapentin 300 mg Oral TID sodium chloride albuterol sulfate HFA, albuterol, guaiFENesin-dextromethorphan, sodium chloride, oxyCODONE, sodium chloride flush, sodium chloride, ondansetron OR ondansetron, polyethylene glycol, aluminum & magnesium hydroxide-simethicone, bisacodyl, calcium carbonate, carboxymethylcellulose PF, cyclobenzaprine, melatonin, diphenoxylate-atropine Labs CBC Recent Labs 10/25/21 0331 WBC 11.8* HGB 14.2 HCT 42.6 MCV 88.8 PLT 257 BMP: Recent Labs 10/25/21 033 NA 133* K 4.0 CL 102 CO2 25 BUN 30* CREATININE 0.91 GLUCOSE 96 ABG: No results found for: PH, PCO2, PO2, HCO3, O2SAT No results found for: IFIO2, MODE, SETTIDVOL, SETPEEP LIVER PROFILE Recent Labs 10/23/21 0540 10/25/21 0331 AST 57* 58* ALT 40 65* BILIDIR 0.0 -- BILITOT 1.2 0.5 ALKPHOS 84 77 INR No results found for: INR, PROTIME PTT No results found for: APTT Cultures CTD negative Radiology CXR Reviewed (See actual reports for details) Active Hospital Problem List Active Hospital Problems Diagnosis Date Noted COVID-19 [U07.1] 10/22/2021 Priority: Medium Assessment and Plan - HYPOXEMIA, LIKELY SECONDARY TO UNDERLYING PULMONARY EMBOLISM. Stable Keep O2 sat >92% Home O2 evaluation on discharge - PULMONARY EMBOLISM, SUBSEGMENTAL MAINLY ON THE RIGHT SIDE, LIKELY SECONDARY TO THROMBOPHILIA SECONDARY TO COVID INFECTION. On Apixaban tolerating well At least six months of therapy - COVID-19 INFECTION WITH ELEVATED CRP. On Remdesivir/ Dexamethasone , complete the course - BRONCHOSPASM COULD BE SECONDARY TO PULMONARY EMBOLISM SELF. NO HISTORY OF TOBACCO USE DISORDER. NO HISTORY OF ASTHMA OR CHRONIC OBSTRUCTIVE PULMONARY DISEASE. Better now Resume BD therapy - UNDERLYING OBESITY. MAY HAVE UNDERLYING SLEEP APNEA, NEVER TESTED FOR THAT. Weight reduction Sleep study recommended as OP Home O2 evaluation on discharge Improving slowly Tomorrow last day of Remdesivir Case discussed with nurse and patient/ Questions and concerns addressed. Progress Note 10/24/2021 5:24 PM Name: Gerald Staley IP Day: 2 Admit Date: 10/22/2021 5:20 AM PCP: Kevin Cary MD Code Status: Full Code Subjective: SOB and weakness better. Some back pain, right sided intermittently. No n/v, f/c, palpitations. Tolerating diet. D/w pt Physical Examination: Vitals: BP 126/81 Pulse 60 Temp 97.5 F (36.4 C) (Temporal) Resp 18 Ht 5' 5 (1.651 m) Wt 220 lb (99.8 kg) SpO2 90% BMI 36.61 kg/m Temp (24hrs), Av.4 F (36.3 C), Min:96.7 F (35.9 C), Max:98 F (36.7 C) General appearance: alert, cooperative and no distress Mental Status: oriented to person, place and time and normal affect Lungs: coarse bs bilaterally, normal effort Heart: regular rate and rhythm, no murmur Abdomen: soft, nontender, nondistended, bowel sounds present, no masses Extremities: no edema, redness, tenderness in the calves Skin: no gross lesions, rashes Data: Labs: Recent Labs 10/23/21 0407 WBC 12.7* HGB 14.1 PLT 232 Recent Labs 10/23/21 0540 NA 136 K 4.8 CL 102 CO2 24 BUN 22* CREATININE 0.86 GLUCOSE 125* Recent Labs 10/23/21 0540 AST 57* ALT 40 BILITOT 1.2 ALKPHOS 84 Assessment and Plan: PE Covid 19 infection/pneumonia HTN GERD Hypothyroidism depression Plan: continue eliquis, continue decadron/remdesivir, IS, increase activity, follow up labs and clinically, Pulmonology following, discharge planning-10/26 once remdesivir rx complete, see orders. Occupational Therapy Facility/Department: [facility] Occupational Therapy Daily Treatment Note Name: Gerald Staley : 1960 Date of Service: 10/24/2021 Discharge Recommendations: Home with assist PRN, Home with Home health OT, Continue to assess pending progress Patient Diagnosis(es): There were no encounter diagnoses. Past Medical History: has a past medical history of Chronic shoulder pain, Depression, GERD (gastroesophageal reflux disease), HTN (hypertension), and Hypothyroid. Past Surgical History: has no past surgical history on file. Assessment Performance deficits / Impairments: Decreased functional mobility ;Decreased ADL status;Decreased ROM;Decreased strength;Decreased endurance;Decreased balance;Decreased high-level IADLs;Decreased posture Assessment: Pt making good progress towards established OT POC this date with focus on functional transfers / mobiltiy at this time without device. He demos no gross LOB with OOB activity and no noted SOB. Mild fatigue with completion. SpO2 remains WFL at this time for functional mobiltiy. He reports improved pain at this time during functional transfers. He would continue to benefit from skilled OT Services to address the above performance deficits. Recommend planned d/C for [facility] OT. History: Pt in 10/22 with COVID and PE. Pt reports chronic shoulder pain that has been worsening with current state. Per therapy guidelines, pt initially administered apixaban at 0945, with three hours having passes. Pt OK to see. Exam: AM-PAC Assistance / Modification: CGA - SBA REQUIRES OT FOLLOW-UP: Yes Activity Tolerance Activity Tolerance: Patient limited by fatigue;Patient limited by pain Plan Plan Times per Week: 4 visits Current Treatment Recommendations: Strengthening, ROM, Balance training, Functional mobility training, Endurance training, Pain management, Safety education & training, Patient/Caregiver education & training, Equipment evaluation, education, & procurement, Self-Care / ADL, Home management training Plan Comment: continue with established OT POC Restrictions Restrictions/Precautions Restrictions/Precautions: Isolation, Fall Risk, General Precautions, Contact Precautions (COVID-19) Required Braces or Orthoses?: No Subjective General Chart Reviewed: Yes Patient assessed for rehabilitation services?: Yes Family / Caregiver Present: No Subjective Subjective: pleasant and cooperative General Comment Comments: OK to see per RN Pt initially denies pain, noted with R flank pain with mobility, reports grossly improved Objective Heart Rate: 56 Heart Rate Source: Monitor BP: 122/80 MAP (Calculated): 94 SpO2: 95 % O2 Device: None (Room air) Observation/Palpation Posture: Good Observation: tele, PIV intact Safety Devices Type of Devices: All fall risk precautions in place;Call light within reach;Gait belt;Patient at risk for falls;Left in bed;Nurse notified Restraints Restraints Initially in Place: No Balance Sitting: (SUP seated EOB) Gait Overall Level of Assistance: Stand-by assistance (no device, no gross LOB, pt with no gross SOB noted with SpO2 remaining WFL throughout this date. Mildly increased time required to complete functional mobiltiy. Pt able to hold conversation during mobiltiy.) Distance (ft): (short functional home distances in room) Assistive Device: Gait belt ADL Additional Comments: Declined participation in ADL tasks this date. Provided multiple options for participation in ADL tasks, however reports that he wishes to wait until after his PIV was complete. Activity Tolerance Activity Tolerance: Patient tolerated treatment well Bed mobility Supine to Sit: Independent Sit to Supine: Independent Scooting: Independent Bed Mobility Comments: Pt denies dizziness Transfers Sit to stand: Stand by assistance Stand to sit: Stand by assistance Transfer Comments: no device, no gross LOB, good hand placement for push up from / reach back for seated surfaces. Pt did not require extended time this date, mild increased c/o pain Vision Vision: Within Functional Limits Hearing Hearing: Within functional limits Cognition Overall Cognitive Status: WFL Orientation Overall Orientation Status: Within Functional Limits Education Given To: Patient Education Provided: Transfer Training;Energy Conservation Education Method: Verbal Barriers to Learning: None Education Outcome: Verbalized understanding;Demonstrated understanding AM-PAC Score AM-PAC Inpatient Daily Activity Raw Score: 19 (10/24/211204) AM-PAC Inpatient ADL T-Scale Score : 40.22 (10/24/211204) ADL Inpatient CMS 0-100% Score: 42.8 (10/24/211204) ADL Inpatient CMS G-Code Modifier : CK (10/24/211204) Goals Short Term Goals Time Frame for Short term goals: 5 visits Short Term Goal 1: Pt will complete full body ADLs with MOD I (NT this date) Short Term Goal 2: Pt will complete functional transfers / mobiltiy with MOD I and LRD (progressing) Short Term Goal 3: Pt will complete bathroom level toileting with MOD I and LRD (NT this date) Short Term Goal 4: Pt will tolerate > 3 minutes of functional standing with MOD I and LRD to increase endurance for ADLs and functional mobility. (progressing) Patient Goals Patient goals : none stated Therapy Time Individual Concurrent Group Co-treatment Time In 1051 Time Out 1105 Minutes 14 Doc Belle OT Physical Therapy Facility/Department: [facility] Physical Therapy Initial Assessment Name: Gerald Staley : 1960 Date of Service: 10/24/2021 Discharge Recommendations: Home with Home health PT, Home with assist PRN (vs OPPT) PT Equipment Recommendations Equipment Needed: No Patient Diagnosis(es): There were no encounter diagnoses. Past Medical History: has a past medical history of Chronic shoulder pain, Depression, GERD (gastroesophageal reflux disease), HTN (hypertension), and Hypothyroid. Past Surgical History: has no past surgical history on file. Assessment Body Structures, Functions, Activity Limitations Requiring Skilled Therapeutic Intervention: Decreased functional mobility ;Decreased endurance;Decreased balance Assessment: Pt presents with above deficits after admission 10/22 with COVID-19 and PE- has been therapeutically anticoagulated. At baseline pt IND with no device. He demo bed mobility IND, functional transfers and ambulation with no device and SBA. Discussed HHC vs OPPT with pt, he reports he was about to start OPPT. Pt will benefit from skilled therapy to promote mobility and decreased falls risk, rec HHC PT (vs OPPT) Therapy Prognosis: Good Decision Making: Medium Complexity History: COVID-19; PE Exam: [facility] Clinical Presentation: Pt admitted 10/22 with COVID-19 and PE. He has medical history as indicated which contributes to his clinical presentation. He demo bed mobility IND, functional transfers and ambulation SBA with no device, rec OPPT vs HHC Barriers to Learning: None Requires PT Follow-Up: Yes Activity Tolerance Activity Tolerance: Patient tolerated treatment well Plan Plan Plan: (5 visits) Current Treatment Recommendations: Strengthening, Balance training, Functional mobility training, Transfer training, Stair training, Gait training, Endurance training, Pain management, Equipment evaluation, education, & procurement, Therapeutic activities, Home exercise program, Positioning, Safety education & training, Patient/Caregiver education & training Plan Comment: goals and treatment plan established in collaboration with pt Safety Devices Type of Devices: All fall risk precautions in place, Call light within reach, Gait belt, Patient at risk for falls, Left in bed, Nurse notified Restraints Restraints Initially in Place: No Restrictions Restrictions/Precautions Restrictions/Precautions: Isolation, Fall Risk, General Precautions, Contact Precautions (COVID-19) Required Braces or Orthoses?: No Subjective Pain: denies General Chart Reviewed: Yes Patient assessed for rehabilitation services?: Yes Additional Pertinent Hx: COVID-19; PE therapeutically anticoagulated Family / Caregiver Present: No Follows Commands: Within Functional Limits General Comment Comments: Per RN pt okay for therapy Subjective Subjective: Pt pleasant and agreeable to PT Social/Functional History Social/Functional History Lives With: Spouse, Son Type of Home: House Home Layout: One level Home Access: Stairs to enter with rails Entrance Stairs - Number of Steps: 10+10 Entrance Stairs - Rails: Both Bathroom Shower/Tub: Tub/Shower unit, Walk-in shower Bathroom Toilet: Standard Bathroom Equipment: Grab bars in shower Bathroom Accessibility: Accessible Home Equipment: Crutches, Wheelchair-manual ADL Assistance: Independent Homemaking Assistance: Independent Homemaking Responsibilities: Yes Ambulation Assistance: Independent (no device) Transfer Assistance: Independent Active Drivability Technician: Yes Mode of Transportation: Car Occupation: On disability Vision/Hearing Vision Vision: Within Functional Limits Hearing Hearing: Within functional limits Cognition Orientation Overall Orientation Status: Within Functional Limits Cognition Overall Cognitive Status: WFL Objective Observation/Palpation Posture: Good Observation: tele Gross Assessment AROM: Within functional limits Strength: Generally decreased, functional Tone: Normal Sensation: Intact Bed mobility Supine to Sit: Independent Sit to Supine: Independent Scooting: Independent Bed Mobility Comments: Pt denies dizziness Transfers Sit to Stand: Stand by assistance Stand to sit: Stand by assistance Comment: Pt complete functional transfer to no device SBA. He demo good hand and foot placement, no LOB noted Ambulation Surface: level tile Device: No Device Assistance: Stand by assistance Quality of Gait: Pt ambulates with no device and SBA. he demo short reciprocal pattern, no LOB. Pt with slight decreased vic, step length Gait Deviations: Slow Vic Distance: ~100 ft Comments: Pt with no LOB or SOB. Therapist educated pt on importance of rest breaks, recovery once pt home, he verbalize understanding Stairs/Curb Stairs?: No Balance Posture: Good Sitting - Static: Good Sitting - Dynamic: Good Standing - Static: Fair;+ Standing - Dynamic: Fair AM-PAC Score AM-PAC Inpatient Mobility Raw Score : 20 (10/24/211099) AM-PAC Inpatient T-Scale Score : 47.67 (10/24/211099) Mobility Inpatient CMS 0-100% Score: 35.83 (10/24/211099) Mobility Inpatient CMS G-Code Modifier : CJ (10/24/211099) Goals Short Term Goals Time Frame for Short term goals: 5 visits Short term goal 1: Pt will complete functional transfer to LRAD Mod I to promote mobility Short term goal 2: Pt will ambulate 100ft mod I with LRAD to promote mmobility Short term goal 3: Pt will ascend/descend 2 flight stairs SUP to safely enter/exit home Short term goal 4: Pt will complete 1-2 sets 5-10 reps LE exercise to promote strength Patient Goals Patient goals : Pt wants to go home Education Patient Education Education Given To: Patient Education Provided: Role of Therapy;Transfer Training;Energy Conservation;Plan of Care;Fall Prevention Strategies Education Provided Comments: d/c rec Education Method: Verbal;Demonstration;Teach Back Barriers to Learning: None Education Outcome: Verbalized understanding;Demonstrated understanding;Continued education needed Therapy Time Individual Concurrent Group Co-treatment Time In 944 Time Out 0955 Minutes 10 Nomi Lora PT [facility] Respiratory Care Department Progress Note As part of the Respiratory Assessment Program (RAP), the following Respiratory Therapist evaluation has been completed, including a chart review and clinical/physical assessment. Respiratory Therapist RAP Evaluation Guideline Points 0 1 2 3 4 Points Strongly Consider History Factor No Pulmonary conditions Stable Pulmonary condition(s) Surgery or Intervention that may impact Pulmonary system (at risk) Surgery or Intervention that is impacting Pulmonary system Active Exacerbation of Pulmonary Condition 0 Respiratory Pattern Regular, RR= 12-18 GRISSOM or Increased RR= 19-24 Irregular, or RR= 25-30 SOB, talk in short sentences, or RR= 31-35 Severe SOB, accessory muscle use, one word answers, or RR>35 0 Aerosol Med(s), High Flow O2 Breath Sounds Clear Diminished in 1 lobe Diminished in ? 2 lobes Adventitious breath sounds Coarse crackles, Wheezes, or Diminished in >2 lobes 0 Aerosol Med(s), Bronchial Hygiene, Hyperinflation Cough & Sputum Strong cough, no secretion retention or production Weak cough, no secretion retention or production Weak cough, w/ production (less often than Q2hr), or secretion retention No cough, w/ secretion retention or production (less often than Q2hr) Significant secretion production (more often than Q2hr) or mucus plug 0 Aerosol Med(s), Bronchial Hygiene, Hyperinflation Level of Activity Ambulatory Ambulatory with Assist Up in chair or edge of bed (dangle) Non-ambulatory, bedridden with active ROM Completely paralyzed or without active ROM 0 Triage 5 0-2 Triage 4 3-5 Triage 3 6-10 Triage 2 11-14 Triage 1 ?15 Total 0 Triage Score = 5 TRIAGE SCORING - SUGGESTED FREQUENCIES Aerosol Therapy Bronchial Hygiene Hyperinflation Triage Score Q4h & PRN 1 Q4hWA (QID) & PRN 2 TID & PRN 3 BID & PRN 4 PRN 5 Therapy(s) Indicated Yes/No Aerosol Medication no Hyperinflation no Bronchial Hygiene no High Flow Oxygen no PEF: na Inspiratory Flow (L/sec): na IVC: na FVC: na FEV1: na FVE1/FVC: na Patient instructed and returned demonstration on use of MDI (with spacer, as appropriate) No RT to enter/modify frequency of treatment order in EMR/EHR to match this RAP evaluation. Based on this RAP evaluation the following therapy is being initiated: albuterol MDI At the following frequency: PRN Comments: pt on RA=SpO2 95%, lung [place] clear bilateral Thank you for involving Respiratory in the care of this patient, Images from the original note were not included. [facility] [place] and [place] Medicine Patient - Gerald Staley, Age - 61 y.o. - 1960 Room Number - [id number] Consulting - Chad Light MD Primary Care Physician - Kevin Cary MD [id number] Date of Admission - 10/22/2021 5:20 AM Hospital Day - 2 Subjective/Events Past 24 hours/ROS Patient continues to improve Minimal rt lower quadrant Pleuritic chest pain Afebrile O2 sat 94% on RA Afebrile, no N/V All other systems reviewed Objective Vitals height is 5' 5 (1.651 m) and weight is 220 lb (99.8 kg). His temporal temperature is 97.1 F (36.2 C). His blood pressure is 122/80 and his pulse is 56. His respiration is 17 and oxygen saturation is 94%. I/O No intake or output data in the 24 hours ending 10/24/21 0947 Patient Vitals for the past 96 hrs (Last 3 readings): Weight 10/22/212044 220 lb (99.8 kg) Exam General Appearance Awake, alert, oriented, in no acute distress HEENT - normocephalic, atraumatic, sclarea is anicteric, conjunctiva is pink, nasal mucosa is normal, no congestion, external ears are intact. Neck - Supple, trachea midline Lymph nodes- no cervical, clavicular, or posterior auricular lymphadenopathy Lungs Normal effort diminished breath sounds at the bases. No wheezing Cardiovascular - Heart sounds are normal. Regular rate and rhythm Abdomen - Soft, nontender, nondistended, no masses or organomegaly Neurologic - Awake, alert, follows commands. Cranial nerves II-XII are intact, There are no focal motor deficits grossly Skin - No bruising or bleeding, good turgor, normal warmth Extremities - No clubbing, cyanosis, edema Peripheral pulses- present bilaterally and symmetric Psychiatric: appropriate, oriented to person, place and time/date No suicidal ideation Meds albuterol sulfate HFA 2 puff Inhalation BID apixaban 10 mg Oral BID Followed by [START ON 10/29/2021] apixaban 5 mg Oral BID dexamethasone 6 mg Oral Daily remdesivir IVPB 100 mg IntraVENous Q24H morphine 15 mg Oral Daily sodium chloride flush 5-40 mL IntraVENous 2 times per day miconazole Topical BID losartan 100 mg Oral Daily triamterene-hydroCHLOROthiazide 1 tablet Oral Daily gabapentin 300 mg Oral TID sodium chloride albuterol, guaiFENesin-dextromethorphan, sodium chloride, oxyCODONE, sodium chloride flush, sodium chloride, ondansetron OR ondansetron, polyethylene glycol, aluminum & magnesium hydroxide-simethicone, bisacodyl, calcium carbonate, carboxymethylcellulose PF, cyclobenzaprine, melatonin, diphenoxylate-atropine Labs CBC Recent Labs 10/23/21 0407 WBC 12.7* HGB 14.1 HCT 41.6 MCV 88.2 PLT 232 BMP: Recent Labs 10/23/21 0540 NA 136 K 4.8 CL 102 CO2 24 BUN 22* CREATININE 0.86 GLUCOSE 125* ABG: No results found for: PH, PCO2, PO2, HCO3, O2SAT No results found for: IFIO2, MODE, SETTIDVOL, SETPEEP LIVER PROFILE Recent Labs 10/23/21 0540 AST 57* ALT 40 BILIDIR 0.0 BILITOT 1.2 ALKPHOS 84 INR No results found for: INR, PROTIME PTT No results found for: APTT Cultures CTD negative Radiology CXR Reviewed (See actual reports for details) Active Hospital Problem List Active Hospital Problems Diagnosis Date Noted COVID-19 [U07.1] 10/22/2021 Priority: Medium Assessment and Plan - HYPOXEMIA, LIKELY SECONDARY TO UNDERLYING PULMONARY EMBOLISM. Stable Keep O2 sat >92% Home O2 evaluation on discharge - PULMONARY EMBOLISM, SUBSEGMENTAL MAINLY ON THE RIGHT SIDE, LIKELY SECONDARY TO THROMBOPHILIA SECONDARY TO COVID INFECTION. On Apixaban tolerating well At least six months of therapy - COVID-19 INFECTION WITH ELEVATED CRP. On Remdesivir/ Dexamethasone , complete the course - BRONCHOSPASM COULD BE SECONDARY TO PULMONARY EMBOLISM SELF. NO HISTORY OF TOBACCO USE DISORDER. NO HISTORY OF ASTHMA OR CHRONIC OBSTRUCTIVE PULMONARY DISEASE. Better now Resume BD therapy - UNDERLYING OBESITY. MAY HAVE UNDERLYING SLEEP APNEA, NEVER TESTED FOR THAT. Weight reduction Sleep study recommended as OP Home O2 evaluation on discharge Case discussed with nurse and patient/ Questions and concerns addressed. Nutrition rescreen completed. Patient referred to the Dietitian for poor nutrition intake. [facility] Respiratory Care Department Progress Note As part of the Respiratory Assessment Program (RAP), the following Respiratory Therapist evaluation has been completed, including a chart review and clinical/physical assessment. Respiratory Therapist RAP Evaluation Guideline Points 0 1 2 3 4 Points Strongly Consider History Factor No Pulmonary conditions Stable Pulmonary condition(s) Surgery or Intervention that may impact Pulmonary system (at risk) Surgery or Intervention that is impacting Pulmonary system Active Exacerbation of Pulmonary Condition 1 Respiratory Pattern Regular, RR= 12-18 GRISSOM or Increased RR= 19-24 Irregular, or RR= 25-30 SOB, talk in short sentences, or RR= 31-35 Severe SOB, accessory muscle use, one word answers, or RR>35 0 Aerosol Med(s), High Flow O2 Breath Sounds Clear Diminished in 1 lobe Diminished in ? 2 lobes Adventitious breath sounds Coarse crackles, Wheezes, or Diminished in >2 lobes 2 Aerosol Med(s), Bronchial Hygiene, Hyperinflation Cough & Sputum Strong cough, no secretion retention or production Weak cough, no secretion retention or production Weak cough, w/ production (less often than Q2hr), or secretion retention No cough, w/ secretion retention or production (less often than Q2hr) Significant secretion production (more often than Q2hr) or mucus plug 0 Aerosol Med(s), Bronchial Hygiene, Hyperinflation Level of Activity Ambulatory Ambulatory with Assist Up in chair or edge of bed (dangle) Non-ambulatory, bedridden with active ROM Completely paralyzed or without active ROM 0 Triage 5 0-2 Triage 4 3-5 Triage 3 6-10 Triage 2 11-14 Triage 1 ?15 Total 3 Triage Score = 4 TRIAGE SCORING - SUGGESTED FREQUENCIES Aerosol Therapy Bronchial Hygiene Hyperinflation Triage Score Q4h & PRN 1 Q4hWA (QID) & PRN 2 TID & PRN 3 BID & PRN 4 PRN 5 Therapy(s) Indicated Yes/No Aerosol Medication y Hyperinflation n Bronchial Hygiene n High Flow Oxygen n RT to enter/modify frequency of treatment order in EMR/EHR to match this RAP evaluation. Based on this RAP evaluation the following therapy is being initiated: Albuterol Inhaler At the following frequency: BID Comments: Thank you for involving Respiratory in the care of this patient, Progress Note 10/23/2021 2:49 PM Name: Gerald Staley IP Day: 1 Admit Date: 10/22/2021 5:20 AM PCP: Kevin Cary MD Code Status: Full Code Subjective: Still with SOB and weakness. Some chest discomfort. No n/v, f/c, palpitations. Tolerating diet. D/w pt and at bedside. Physical Examination: Vitals: BP 113/81 Pulse 71 Temp 97.9 F (36.6 C) (Temporal) Resp 16 Ht 5' 5 (1.651 m) Wt 220 lb (99.8 kg) SpO2 94% BMI 36.61 kg/m Temp (24hrs), Av.1 F (36.2 C), Min:96.2 F (35.7 C), Max:98.1 F (36.7 C) General appearance: alert, cooperative and no distress Mental Status: oriented to person, place and time and normal affect Lungs: coarse bs bilaterally, normal effort Heart: regular rate and rhythm, no murmur Abdomen: soft, nontender, nondistended, bowel sounds present, no masses Extremities: no edema, redness, tenderness in the calves Skin: no gross lesions, rashes Data: Labs: Recent Labs 10/23/21 0407 WBC 12.7* HGB 14.1 PLT 232 Recent Labs 10/23/21 0540 NA 136 K 4.8 CL 102 CO2 24 BUN 22* CREATININE 0.86 GLUCOSE 125* Recent Labs 10/23/21 0540 AST 57* ALT 40 BILITOT 1.2 ALKPHOS 84 Assessment and Plan: PE Covid 19 infection/pneumonia HTN GERD Hypothyroidism depression Plan: continue eliquis, continue decadron/remdesivir, IS, increase activity, follow up labs and clinically, Pulmonology following, discharge planning-10/26 once remdesivir rx complete, see orders. Images from the original note were not included. [facility] [facility] Pulmonary Critical Care and Sleep Medicine Patient - Gerald Staley, Age - 61 y.o. - 1960 Room Number - [id number] Consulting - Chad Light MD Primary Care Physician - Kevin Cary MD [id number] Date of Admission - 10/22/2021 5:20 AM Hospital Day - 1 Subjective/Events Past 24 hours/ROS Patient feeling better today, rt sided pleuritic chest marcell improving, able to take take breath without much of pain Afebrile Remained hypoxic on RA, O2 sat 92% Afebrile No N/V Appetite improving Tolerating Apixaban well All other systems reviewed Objective Vitals height is 5' 5 (1.651 m) and weight is 220 lb (99.8 kg). His temporal temperature is 98.1 F (36.7 C). His blood pressure is 126/77 and his pulse is 69. His respiration is 18 and oxygen saturation is 95%. I/O No intake or output data in the 24 hours ending 10/23/21 1110 Patient Vitals for the past 96 hrs (Last 3 readings): Weight 10/22/21 2045 220 lb (99.8 kg) Exam General Appearance Awake, alert, oriented, in no acute distress HEENT - normocephalic, atraumatic, sclarea is anicteric, conjunctiva is pink, nasal mucosa is normal, no congestion, external ears are intact. Neck - Supple, trachea midline Lymph nodes- no cervical, clavicular, or posterior auricular lymphadenopathy Lungs Normal effort diminished breath sounds at the bases. No wheezing Cardiovascular - Heart sounds are normal. Regular rate and rhythm Abdomen - Soft, nontender, nondistended, no masses or organomegaly Neurologic - Awake, alert, follows commands. Cranial nerves II-XII are intact, There are no focal motor deficits grossly Skin - No bruising or bleeding, good turgor, normal warmth Extremities - No clubbing, cyanosis, edema Peripheral pulses- present bilaterally and symmetric Psychiatric: appropriate, oriented to person, place and time/date No suicidal ideation Meds apixaban 10 mg Oral BID Followed by [START ON 10/29/2021] apixaban 5 mg Oral BID dexamethasone 6 mg Oral Daily remdesivir IVPB 100 mg IntraVENous Q24H morphine 15 mg Oral Daily sodium chloride flush 5-40 mL IntraVENous 2 times per day miconazole Topical BID losartan 100 mg Oral Daily triamterene-hydroCHLOROthiazide 1 tablet Oral Daily gabapentin 300 mg Oral TID albuterol sulfate HFA 2 puff Inhalation 4x daily sodium chloride albuterol, guaiFENesin-dextromethorphan, sodium chloride, oxyCODONE, sodium chloride flush, sodium chloride, ondansetron OR ondansetron, polyethylene glycol, aluminum & magnesium hydroxide-simethicone, bisacodyl, calcium carbonate, carboxymethylcellulose PF, cyclobenzaprine, melatonin, diphenoxylate-atropine Labs CBC Recent Labs 10/23/21 0407 WBC 12.7* HGB 14.1 HCT 41.6 MCV 88.2 PLT 232 BMP: Recent Labs 10/23/21 0540 NA 136 K 4.8 CL 102 CO2 24 BUN 22* CREATININE 0.86 GLUCOSE 125* ABG: No results found for: PH, PCO2, PO2, HCO3, O2SAT No results found for: IFIO2, MODE, SETTIDVOL, SETPEEP LIVER PROFILE Recent Labs 10/23/21 0540 AST 57* ALT 40 BILIDIR 0.0 BILITOT 1.2 ALKPHOS 84 INR No results found for: INR, PROTIME PTT No results found for: APTT Cultures CTD negative Radiology CXR Reviewed (See actual reports for details) Active Hospital Problem List Active Hospital Problems Diagnosis Date Noted COVID-19 [U07.1] 10/22/2021 Priority: Medium Assessment and Plan - HYPOXEMIA, LIKELY SECONDARY TO UNDERLYING PULMONARY EMBOLISM. Stable Keep O2 sat >92% Home O2 evaluation on discharge - PULMONARY EMBOLISM, SUBSEGMENTAL MAINLY ON THE RIGHT SIDE, LIKELY SECONDARY TO THROMBOPHILIA SECONDARY TO COVID INFECTION. On Apixaban tolerating well At least six months of therapy - COVID-19 INFECTION WITH ELEVATED CRP. On Remdesivir/ Dexamethasone , complete the course - BRONCHOSPASM COULD BE SECONDARY TO PULMONARY EMBOLISM SELF. NO HISTORY OF TOBACCO USE DISORDER. NO HISTORY OF ASTHMA OR CHRONIC OBSTRUCTIVE PULMONARY DISEASE. Better now Resume BD therapy - UNDERLYING OBESITY. MAY HAVE UNDERLYING SLEEP APNEA, NEVER TESTED FOR THAT. Weight reduction Sleep study recommended as OP Case discussed with nurse and patient/ Questions and concerns addressed. Occupational Therapy Facility/Department: [facility] Occupational Therapy Initial Assessment Name: Gerald Staley : 1960 Date of Service: 10/22/2021 Discharge Recommendations: Continue to assess pending progress, Home with assist PRN, Home with Home health OT OT Equipment Recommendations Equipment Needed: No (continue to assess) Patient Diagnosis(es): There were no encounter diagnoses. Past Medical History: has a past medical history of Chronic shoulder pain, Depression, GERD (gastroesophageal reflux disease), HTN (hypertension), and Hypothyroid. Past Surgical History: has no past surgical history on file. Assessment Performance deficits / Impairments: Decreased functional mobility ;Decreased ADL status;Decreased ROM;Decreased strength;Decreased endurance;Decreased balance;Decreased high-level IADLs;Decreased posture Assessment: Pt in 10/22 with COVID and PE. Pt reports chronic shoulder pain that has been worsening with current state. Per therapy guidelines, pt initially administered apixaban at 0945, with three hours having passes. Pt OK to see. Pt previously IND for ADLs, IADLs, and functional transfers / mobility without a device. He is currently CGA - MIN A for ADLs, functional transfers / mobility without a device. He is limited by increased pain, weakness, and fatigue with completion of functional tasks as well as diminished AROM. He would benefit from skilled OT services to address the above. Recommend planned D/C for [facility] OT pending progress. History: Pt in 10/22 with COVID and PE. Pt reports chronic shoulder pain that has been worsening with current state. Per therapy guidelines, pt initially administered apixaban at 0945, with three hours having passes. Pt OK to see. Exam: AM-PAC Assistance / Modification: MIN - CGA REQUIRES OT FOLLOW-UP: Yes Activity Tolerance Activity Tolerance: Patient limited by fatigue;Patient limited by pain Plan Plan Times per Week: 5 visits Current Treatment Recommendations: Strengthening, ROM, Balance training, Functional mobility training, Endurance training, Pain management, Safety education & training, Patient/Caregiver education & training, Equipment evaluation, education, & procurement, Self-Care / ADL, Home management training Plan Comment: POC and goals established in collaboration with pt. Restrictions Restrictions/Precautions Restrictions/Precautions: Isolation, Fall Risk, General Precautions, Contact Precautions (COVID-19) Required Braces or Orthoses?: No Subjective General Chart Reviewed: Yes Patient assessed for rehabilitation services?: Yes Family / Caregiver Present: No Subjective Subjective: pleasant and cooperative General Comment Comments: OK to see per RN pt initially c/o no pain, however with motion pt reports R sided flank pain, did not rate Social/Functional History Social/Functional History Lives With: Spouse, Son Type of Home: House Home Layout: One level Home Access: Stairs to enter with rails Entrance Stairs - Number of Steps: 10+10 Entrance Stairs - Rails: Both Bathroom Shower/Tub: Tub/Shower unit, Walk-in shower Bathroom Toilet: Standard Bathroom Equipment: Grab bars in shower Bathroom Accessibility: Accessible Home Equipment: Crutches, Wheelchair-manual ADL Assistance: Independent Homemaking Assistance: Independent Homemaking Responsibilities: Yes Ambulation Assistance: Independent (no device) Transfer Assistance: Independent Active Drivability Technician: Yes Objective Heart Rate: 69 Heart Rate Source: Monitor BP: 122/75 BP Location: Right Arm Patient Position: Supine MAP (Calculated): 90.67 Resp: 16 SpO2: 95 % O2 Device: None (Room air) Observation/Palpation Posture: Good Observation: tele intact Safety Devices Type of Devices: All fall risk precautions in place;Call light within reach;Gait belt;Patient at risk for falls;Left in bed;Nurse notified Restraints Restraints Initially in Place: No Balance Sitting: (SBA at EOB) Standing: (CGA no device) Gait Overall Level of Assistance: Contact-guard assistance (no gross LOB, no use of device, increased time required. Use of environmental supports for stability. CGA for safety 2/2 mild instability.) Distance (ft): (to / from bathroom) Assistive Device: Gait belt AROM: Generally decreased, functional (> 90 shoulder flexion, however limited 2/2 shoulder pain) Strength: Generally decreased, functional (unable to formally assess 2/2 shoulder pain, noted > +3/5 with functional transfers) ADL Feeding: Modified independent Grooming: Contact guard assistance UE Bathing: Contact guard assistance LE Bathing: Minimal assistance UE Dressing: Contact guard assistance LE Dressing: Minimal assistance Toileting: Contact guard assistance Additional Comments: Pt limited by pain at this time for participation in functioanl ADLs and activities this date. He demos diminished functional reach and strength at this time limited by pain. Pt reports that he has chronic BUE shoulder pain, however that the symptoms have been worsening with his current state compared to his typical chronic pain. He requires increased time and rest breaks to complete extended ADL tasks. He was able to complete bathroom level urination this date in standing with CGA for pants management and pericare. Bed mobility Supine to Sit: Stand by assistance Sit to Supine: Stand by assistance Scooting: Stand by assistance Bed Mobility Comments: HOB elevated, extended time required to complete. Mild c/o dizziness. Increased reliance on bed rails for completion. Transfers Sit to stand: Contact guard assistance Stand to sit: Contact guard assistance Transfer Comments: no device, good hand placement for push up from / reach back for seated surfaces. No gross LOB. Extended time requried to complete. Increased pain reported with completion. Vision Vision: Within Functional Limits Hearing Hearing: Within functional limits Cognition Overall Cognitive Status: WFL Cognition Comment: grossly WFL, pt reports feeling hazy however also reports that he had recently been administered medication. Pt required mildly increased time for processing with cog grossly WFL Orientation Overall Orientation Status: Within Functional Limits Orientation Level: Oriented to place;Oriented to time;Oriented to person;Oriented to situation Education Given To: Patient Education Provided: Role of Therapy;Plan of Care;Transfer Training Education Method: Verbal;Demonstration Barriers to Learning: None Education Outcome: Verbalized understanding;Demonstrated understanding AM-PAC Score AM-PAC Inpatient Daily Activity Raw Score: 19 (10/22/21 155) AM-PAC Inpatient ADL T-Scale Score : 40.22 (10/22/21 155) ADL Inpatient CMS 0-100% Score: 42.8 (10/22/211553) ADL Inpatient CMS G-Code Modifier : CK (10/22/21 8524) Goals Short Term Goals Time Frame for Short term goals: 5 visits Short Term Goal 1: Pt will complete full body ADLs with MOD I Short Term Goal 2: Pt will complete functional transfers / mobiltiy with MOD I and LRD Short Term Goal 3: Pt will complete bathroom level toileting with MOD I and LRD Short Term Goal 4: Pt will tolerate > 3 minutes of functional standing with MOD I and LRD to increase endurance for ADLs and functional mobility. Patient Goals Patient goals : none stated Therapy Time Individual Concurrent Group Co-treatment Time In 1404 Time Out 1428 Minutes 24 Timed Code Treatment Minutes: 9 Minutes (ADL) Doc Belle OT Images from the original note were not included. Hospitalist Progress Note 10/22/2021 10:44 AM [phone]: Please perfect serve me for patient care issues. [phone]: Please page [facility] night Hospitalist for any issues. Subjective: Admit Date: 10/22/2021 PCP: Kevin Cary MD Room#: [id number] Interval History: No overnight issues. Patient feels like he woke up the best he has in a while, but still has the right chest pleuritic pain. With partner at bedside we discuss PE diagnosis, oxygen level, COVID treatment and PE treatment. Encouraged patient to get up and walk and also to eat well today. Will continue to monitor oxygen levels. ADULT DIET; Regular No data found. 24HR INTAKE/OUTPUT: No intake or output data in the 24 hours ending 10/22/21 1044 Past Medical History: Diagnosis Date Chronic shoulder pain Depression GERD (gastroesophageal reflux disease) HTN (hypertension) Hypothyroid Medications: sodium chloride apixaban 10 mg Oral BID Followed by [START ON 10/29/2021] apixaban 5 mg Oral BID dexamethasone 6 mg Oral Daily [START ON 10/23/2021] remdesivir IVPB 100 mg IntraVENous Q24H morphine 15 mg Oral Daily sodium chloride flush 5-40 mL IntraVENous 2 times per day miconazole Topical BID losartan 100 mg Oral Daily triamterene-hydroCHLOROthiazide 1 tablet Oral Daily gabapentin 300 mg Oral TID LABS: CBC: No results for input(s): WBC, RBC, HGB, HCT, MCV, RDW, PLT in the last 72 hours. BMP:No results for input(s): NA, K, CL, CO2, BUN, CREATININE, GLUCOSE, CALCIUM, ANIONGAP in the last 72 hours. LIVER PROFILE:No results for input(s): AST, ALT, BILITOT, ALKPHOS, LABALBU, PROT in the last 72 hours. PT/INR: No results for input(s): PROTIME, INR in the last 72 hours. CARDIAC ENZYMES: No results for input(s): TROPONINI in the last 72 hours. Procalcitonin: No results found for: PROCAL COVID-19 PCR: No results for input(s): COVID19 in the last 72 hours. Objective: Vitals: BP 129/89 Pulse 64 Temp 97.8 F (36.6 C) (Temporal) Resp 18 SpO2 97% Pulse Ox: SpO2 Av % Min: 93 % Max: 98 % Supplemental O2: General appearance: No acute distress and cooperative HEENT: atraumatic, EOM's intact, CRISSY Neck: Supple, with full range of motion. Trachea midline Respiratory: CTA with no wheeze, rhonchi or rales. No acute respiratory distress Cardiovascular: Regular rate and rhythm with normal S1/S2 without murmurs. Abdomen: Soft, NTND, active bowel sounds Musculoskeletal: No clubbing, cyanosis or edema bilaterally. Full range of motion without deformity. Skin: Skin color normal, no rashes or lesions. Neurologic: Neurovascularly intact without any focal sensory/motor deficits. Assessment Right pulmonary embolism COVID-19 HTN Chronic bilateral shoulder pain Chronic pain syndrome Hypothyroidism Depression Plan PE -continue apixaban -monitor oxygen level, high sensitivity troponin's negative x2 overnight and BNP WNL -likely 2/2 COVID but should make sure he is up to date in cancer screening and follow-up with vascular medicine for coagulation w/o COVID-19 -+test yesterday with negative test 2 weeks ago -CRP elevated -continue treatment -monitor oxygen level Continue all home medications -am labs, replace lytes prn -increase activity -DVT prophylaxis: [] Lovenox [] Heparin [] SCDs [x] Encourage ambulation [x] Already on Anticoagulation Advance Directive: Full Code Discharge planning: TBD AnnmarieKARI Prieto CNP Division of Hospitalist Medicine Inpatient Medical Services PAGER: Wojciech mario documented in this encounter [facility] Work Phone: 10-23-2021 Miscellaneous Notes Left message with the pt to get verbal consent to obtain ER reports. Please advise. Annabelle Green RN Ok. Please request the ER notes from this admission. Thank you Pt called for UDS today, pt states that he was admitted yesterday at [facility] for COVID and has two blood clots in his lungs. Please advise. Annabelle Green RN Ok. I put the order in. Please call him again tomorrow if he does not come in today. Attempted to call the pt today for UDS, message left to call the office back. Please advise., Annabelle Green RN documented in this encounter [facility] 10-16-2021 History of Present illness Narrative Patient presents with: ER F/U: [facility] HPI: Patient presents today for office visit for follow up ER FOLLOW UP: Reason for visit: chest pain Which facility: [facility] Date of visit: 10/08/21 Diagnosis: chest pain, dehydration Testing done: CBC,BMP, Troponin (normal), TSH 1.37, chest x-ray, CT head Had been off levothyroxine for at least a month prior to ER visit and is back on now. Treatment given: no changes made to medications nothing given in ER Current symptoms: still with pain in chest feels like muscle ripping off bone mostly on left side can happen on left, when really bad will shoot to groin Wondering if needs a heart cath? Pain in throat that goes all the way down into chest. Feels like a tender feeling there in chest all the time now. Sometimes movement makes it different. Drinking water used to help. No black or bloody stools. Tsh was normal not taking the meds. Is drinking etoh. Discussed that he needs to stop. See last ov from Lauren in May: Refers that he presented to the ER on 05/12 with chest pain. Per the ER records, he reported that he had left-sided chest pain that did not radiate. He felt clammy and sweaty. He had no nausea or vomiting. He has some slight shortness of breath. There is no exertional component to the chest discomfort. He reports that he had several episodes of this chest pain. His EKG showed sinus bradycardia at [address] changes. His chest x-ray showed no acute processes. His CBC was normal. His chloride was 108 with a normal creatinine. His troponins were normal. He had a stress test in [address] Pabon. He reports that he had no further episodes since that time. Describes pain would occur below nipple line across his anterior chest wall. He reports that when he gets this pain, it does go through to his back. Pain was not reproducible. He does report some fatigue. He did have a nuclear stress test done in October 2019, which was normal. He did have a diagnostic cardiac cath in December 2019 which was normal. Stress test: CONCLUSIONS: 1. SPECT Perfusion Study: Normal. 2. There is no scintigraphic evidence for inducible ischemia. 3. No evidence of scarred myocardium. 4. Left ventricle is normal in size. The left ventricle systolic function is normal. 5. Right ventricle is normal in size. The right ventricle systolic function is normal. 6. This is a low risk scan. MEDICATIONS: Current Outpatient Medications Medication Sig oxyCODONE (ROXICODONE) 15 mg immediate release tablet Take 1 tablet by mouth every 8 hours as needed for pain for up to 30 days. Do not start before October 12, 2021. morphine SR (MS CONTIN) 15 mg 12 hr tablet Take 1 tablet by mouth once daily as needed for pain for up to 30 days. for Pain Do not start before October 09, 2021. gabapentin (NEURONTIN) 300 mg capsule Take 1 capsule by mouth three times daily for 30 days. Do not start before October 10, 2021. levothyroxine (LEVOXYL) 25 mcg tablet Take 1 tablet by mouth once daily. Take on empty stomach. For Thyroid QUEtiapine XR (SEROQUEL XR) 150 mg Tb24 Take 1 tablet by mouth daily at bedtime. lamoTRIgine (LAMICTAL) 150 mg tablet Take 1 tablet by mouth once daily. ibuprofen (MOTRIN) 800 mg tablet Take 800 mg by mouth twice daily as needed. lidocaine-prilocaine (EMLA) 2.5-2.5 % cream APPLY TO THE AFFECTED AREA(S) THREE TIMES DAILY NEEDED FOR PAIN. traZODone (DESYREL) 50 mg tablet trazodone 50 mg tablet naloxone 4 mg/actuation nasal spray (NARCAN) Narcan 4 mg/actuation spray,non-aerosol cyclobenzaprine (FLEXERIL) 10 mg tablet Take 1/2 - 1 tablet every 8 hours as needed for pain triamterene-hydroCHLOROthiazide (MAXZIDE-25MG) 37.5-25 mg per tablet Take 1 tablet by mouth once daily. losartan (COZAAR) 100 mg tablet Take 1 tablet by mouth once daily. Current Facility-Administered Medications Medication Dose Route Frequency perflutren lipid microspheres 1.3 mL in NaCl (PF) 0.9% 10 mL injection (DEFINITY) INTRAVENOUS DIRECTED PRN sodium chloride 0.9 % (flush) 10 mL (BD POSIFLUSH) 10 mL INTRAVENOUS DIRECTED PRN ALLERGIES: ALLERGIES Allergen Reactions Bakari Inhibitors Cough Darvocet A500 [Prop* GI Upset PAST MEDICAL HISTORY Diagnosis Date Abnormal EKG 04/23/2017 inf [place] age undetermined Anxiety Chicken pox Colon polyps Depression ED (erectile dysfunction) Headache HTN (hypertension) Hypogonadism male 04/25/2010 Rectal bleed Shingles Shoulder pain pain management. PAST SURGICAL HISTORY Procedure Laterality Date COLONOSCOPY FLX DX W/COLLJ SPEC WHEN PFRMD age 40 Colonoscopy COLONOSCOPY FLX DX W/COLLJ SPEC WHEN PFRMD 06/04/2010 Colonoscopy COLONOSCOPY FLX DX W/COLLJ SPEC WHEN PFRMD 05/25/2018 Multiple Fragments of Tubular Adenoma, Diverticulosis COLONOSCOPY GEN ANES 06/27/2020 Two 4 to 7 mm polyps (adenomatous and hyperplastic ) COLSC FLX W/RMVL OF TUMOR POLYP LESION SNARE TQ 05/30/2016 adenomatous polyp - small - 5 year follow up ESOPHAGOGASTRODUODENOSCOPY TRANSORAL DIAGNOSTIC 05/25/2018 Duodenitis, Gastritis FOOT SURGERY HX Right ~ 2014 OPEN REPAIR OF ROTATOR CUFF ACUTE Right 10/2016 Rotator cuff repair - Dr. Santamaria RECONSTRUCTION ROTATOR CUFF AVULSION CHRONIC Left 03/21/2010 Dr. Stalin Clark RPR UMBILICAL HRNA 5 YRS/> REDUCIBLE 06/11/2016 simple SKIN GRAFT HX Right 1987 eyelid TONSILLECTOMY HX Childhood FAMILY HISTORY Problem Relation Age of Onset Diabetes Mother Hypertension Mother Arthritis Mother Breast Cancer Mother Dementia Mother Cancer Father throat Asthma No Family History Social History Tobacco Use Smoking status: Never Smokeless tobacco: Never Vaping Use Vaping Use: Never used Substance Use Topics Alcohol use: Yes Alcohol/week: 15.0 standard drinks Types: 6 Cans of Beer (12oz) per week Comment: 12 pack a week Drug use: No Reviewed current medications, allergies, past medical history, surgical history, family history and social history today. REVIEW OF SYSTEMS All other reviewed and negative other than HPI. VITALS: BP 132/88 Pulse 60 Wt 101.2 kg (223 lb) BMI 35.99 kg/m Last 4 Encounter Wt Readings: Date: Wt: 08/22/2021 100.7 kg (222 lb) 07/24/2021 103.1 kg (227 lb 3.2 oz) 06/19/2021 103.4 kg (228 lb) 05/28/2021 104.3 kg (230 lb) PHYSICAL EXAMINATION: General appearance: Well appearing, alert, in no acute distress, well-hydrated, well nourished. Skin: Skin color, texture, turgor normal, no suspicious rashes or lesions Head: Normocephalic, no masses, lesions, tenderness or abnormalities Eyes: Anicteric sclera. Pupils are equally round and reactive to light. Extraocular movements are intact. Chest wall tender to palpation. Lungs: Lungs clear to auscultation. No wheezing, rhonchi, rales Heart: RRR without murmur, gallop, or rubs. No ectopy Abdomen: Normal abdominal exam, Abdomen soft, non-tender. Bowel sounds normal. No masses, organomegaly Extremities: No deformities, edema, skin discoloration, clubbing or cyanosis. Good capillary refill. Musculoskeletal: No joint swelling, deformity, or tenderness Peripheral pulses: Normal Neuro: Negative. ASSESSMENT/PLAN: 1. Chest pain, unspecified type - ICD9: 786.50, ICD10: R07.9 (primary diagnosis) - appears to be gerd and musculoskeletal. Had negative stress test and heart cath in the last year and a half. - BASIC METABOLIC PNL 2. Subclinical hypothyroidism - ICD9: 244.8, ICD10: E03.8 - hold on meds and follow. 3. GERD without esophagitis - ICD9: 530.81, ICD10: K21.9 Add prilosec. Avoid nsaid. Kevin Cary MD documented in this encounter [facility] 10-08-2021 Miscellaneous Notes Last office visit 05/27/21 Next appointment scheduled 10/16/21 Patient has been identified by name and date of : Yes Requested Prescriptions Pending Prescriptions Disp Refills levothyroxine (LEVOXYL) 25 mcg tablet 30 tablet 2 Sig: Take 1 tablet by mouth once daily. Take on empty stomach. For Thyroid RX INSTRUCTIONS: Patient aware RX will be sent to pharmacy. No need to notify patient. Paula Peters Pss documented in this encounter [facility] 10-08-2021 History of Present illness Narrative Summary: Follow Up: Virtual Visit This video visit was performed via [employer] video visit. Patient consented to receive health care services via virtual visit for this encounter Provider Location: [facility] Facility Patient Location: Patient Home or Place of Residence Risks, benefits, and limitations of receiving care virtually were discussed with the patient. The patient expressed understanding and is willing to proceed. Chief Complaint: Pain History of Present Illness: Gerald Staley is a 61 year old year old male being seen at [facility] for a evaluation and/or management of his chronic pain. The patient was last seen as a virtual visit on 09/09/21. He states that since the last visit symptoms have been persistent. Report not starting physical therapy, saying he forgot to. He continues to report neck pain that will radiate up his head at times and cause headaches. I explained to him that it is extremely important he do the physical therapy so that he can move forward with having the MRI done. Based on these results, we can do injection therapy or refer to surgery if needed. He and his verbalized understanding. With the encouragement of his , the patient reports having chest pain and nausea. He also reports fatigue and weakness. The reports that the patient had been taking the gabapentin 3 tabs, 3 times a day. I educated him that it should just be 1 tab 3 times day. However, I do not think this is what is causing his chest pain. I instructed him that he needs to go to the ER today to be evaluated. He and his verbalized understanding. VAS: 9/10 Pain locatoion: rt shoulder & neck pain Timing: constant Severity: moderate Quality: sharp, aching Radiation: yes, down entire b/l arms Numbness: yes, fingers in rt fingers & hands Burning: yes, rt shoulder & hand Tingling: yes, rt shouler & b/l hands Weakness: yes, rt arm Falls: denies Alleviating Factors: pain meds, rest Aggravating Factors: work, any movement The patient denies any bowel or bladder dysfunction. Since the last office visit the patients medical history has not changed. The patient denies any new diagnoses, hospital visits or ER visits. The patient is currently prescribed Oxycodone, MSContin, Neurontin, mirilax and Ibuprofen from our office. The last dose of Oxycodone was taken today. The medications are partially effective. The patient denies nausea, vomiting, constipation,rashes, drowsiness,weight gain, weight loss,dizziness,and fatigue. The OARRS report has been reviewed and is consistent with the patients medical history and medication intake. The last prescription for pain medication was filled on 09/12/21. Last Urine Drug Screen (UDS): 04/15/21. The UDS has been reviewed and is consistent with medications prescribed. Pain Contract: 02/20/21 REVIEW OF SYSTEMS: GENERAL: No weight loss or fevers RESPIRATORY: Negative for cough CARDIOVASCULAR: Negative for chest pain GI: No nausea, vomiting, or diarrhea. MUSCULOSKELETAL: + for joint pain or swelling, back pain and muscle pain @lastpdiallquestions@ PAST MEDICAL HISTORY Diagnosis Date Abnormal EKG 04/23/2017 inf [place] age undetermined Anxiety Chicken pox Colon polyps Depression ED (erectile dysfunction) Headache HTN (hypertension) Hypogonadism male 04/25/2010 Rectal bleed Shingles Shoulder pain pain management. PAST SURGICAL HISTORY Procedure Laterality Date COLONOSCOPY FLX DX W/COLLJ SPEC WHEN PFRMD age 40 Colonoscopy COLONOSCOPY FLX DX W/COLLJ SPEC WHEN PFRMD 06/04/2010 Colonoscopy COLONOSCOPY FLX DX W/COLLJ SPEC WHEN PFRMD 05/25/2018 Multiple Fragments of Tubular Adenoma, Diverticulosis COLONOSCOPY GEN ANES 06/27/2020 Two 4 to 7 mm polyps (adenomatous and hyperplastic ) COLSC FLX W/RMVL OF TUMOR POLYP LESION SNARE TQ 05/30/2016 adenomatous polyp - small - 5 year follow up ESOPHAGOGASTRODUODENOSCOPY TRANSORAL DIAGNOSTIC 05/25/2018 Duodenitis, Gastritis FOOT SURGERY HX Right ~ 2014 OPEN REPAIR OF ROTATOR CUFF ACUTE Right 10/2016 Rotator cuff repair - Dr. Santamaria RECONSTRUCTION ROTATOR CUFF AVULSION CHRONIC Left 03/21/2010 Dr. Stalin Clark RPR UMBILICAL HRNA 5 YRS/> REDUCIBLE 06/11/2016 simple SKIN GRAFT HX Right 1986 eyelid TONSILLECTOMY HX Childhood FAMILY HISTORY Problem Relation Age of Onset Diabetes Mother Hypertension Mother Arthritis Mother Breast Cancer Mother Dementia Mother Cancer Father throat Asthma No Family History Social History Tobacco Use Smoking status: Never Smokeless tobacco: Never Vaping Use Vaping Use: Never used Substance Use Topics Alcohol use: Yes Alcohol/week: 15.0 standard drinks Types: 6 Cans of Beer (12oz) per week Comment: 12 pack a week Drug use: No Allergies: Bakari Inhibitors Cough Darvocet A500 [Prop* GI Upset Current Outpatient Medications Medication Sig oxyCODONE (ROXICODONE) 15 mg immediate release tablet Take 1 tablet by mouth every 8 hours as needed for pain for up to 30 days. Do not start before September 12, 2021. morphine SR (MS CONTIN) 15 mg 12 hr tablet Take 1 tablet by mouth once daily as needed for pain for up to 30 days. for Pain gabapentin (NEURONTIN) 300 mg capsule Take 1 capsule by mouth three times daily for 30 days. QUEtiapine XR (SEROQUEL XR) 150 mg Tb24 Take 1 tablet by mouth daily at bedtime. lamoTRIgine (LAMICTAL) 150 mg tablet Take 1 tablet by mouth once daily. ibuprofen (MOTRIN) 800 mg tablet Take 800 mg by mouth twice daily as needed. lidocaine-prilocaine (EMLA) 2.5-2.5 % cream APPLY TO THE AFFECTED AREA(S) THREE TIMES DAILY NEEDED FOR PAIN. traZODone (DESYREL) 50 mg tablet trazodone 50 mg tablet naloxone 4 mg/actuation nasal spray (NARCAN) Narcan 4 mg/actuation spray,non-aerosol cyclobenzaprine (FLEXERIL) 10 mg tablet Take 1/2 - 1 tablet every 8 hours as needed for pain levothyroxine (LEVOXYL) 25 mcg tablet Take 1 tablet by mouth once daily. Take on empty stomach. For Thyroid triamterene-hydroCHLOROthiazide (MAXZIDE-25MG) 37.5-25 mg per tablet Take 1 tablet by mouth once daily. losartan (COZAAR) 100 mg tablet Take 1 tablet by mouth once daily. Current Facility-Administered Medications Medication Dose Route Frequency perflutren lipid microspheres 1.3 mL in NaCl (PF) 0.9% 10 mL injection (DEFINITY) INTRAVENOUS DIRECTED PRN sodium chloride 0.9 % (flush) 10 mL (BD POSIFLUSH) 10 mL INTRAVENOUS DIRECTED PRN ASSESSMENT: Patient is stable. Chronic pain is persistent. Medications are helping Gerald Donovan Staley to have an improved quality of life. Patient compliance with Opioid Contract: patient is compliant Encounter Diagnosis ICD-10-CM 1. Chronic pain syndrome G89.4 2. Cervicalgia M54.2 3. Rotator cuff impingement syndrome, unspecified laterality M75.40 4. Osteoarthritis of both shoulders, unspecified osteoarthritis type M19.011 M19.012 5. Rotator cuff syndrome, unspecified laterality M75.100 PLAN: The patient understands the goal of our treatment is a reduction in pain and/or an improved level of functioning with activities of daily living. If at any time the patient does not feel the medications are helping them to achieve these goals, the medications may be discontinued. The patient reports a reduction in pain and/or an improved level of functioning with activities of daily living, denies any significant adverse effects, is compliant with the pain management agreement and there are no signs of medication misuse, abuse or diversion; therefore, the medications will be continued. OARRS reviewed Continue Oxy IR 15mg TID prn Continue MSContin 15 mg QD. Continue Gabapentin to 300 mg TID. Continue Ibuprofen sparingly. Continue lidocaine-prilocaine cream Encouraged to continue counseling every 3 months Encouraged to follow instructions of PCP Norman Lundy/[place] shoulder steroidal injection prn (last inj. 08/21/2021) Start physical therapy for cervical spine. Once physical therapy is done, will submit for a c-spine MRI Go to ER today to be evaluated for chest pain F/U in 1 month(s). Lisa Heller APRN.JADA documented in this encounter [facility] 10-02-2021 Miscellaneous Notes It is now finalized. Lauren Steen APRN.CNP Stress test results have been in preliminary status for over a week. Can we please get an estimate of when the results will be finalized? documented in this encounter [facility] 09-23-2021 History of Present illness Narrative RADIOLOGY SERVICE PROGRESS NOTE SERVICE DATE: SERVICE TIME: PATIENT IDENTITY VERIFICATION COMPLETED USING TWO (2) METHODS: Patient confirmed name and Date of verbally. ALLERGIES REVIEWED: MEDICATIONS REVIEWED BY: PROCEDURE TYPE: NM STRESS: 0.4 mg of Lexiscan was administered IV at 0846 over 10 Seconds by Kvng Murray RN Reversal agent used:None LOT [id number] EXP [id number] IV SITE: IV palced by nuclear tecnologist POST EXAM PIV STATUS: Discontinued by Induction Furnace Operator PATIENT DISCHARGED TO: Nuclear Medicine Department for post stress imaging A Diagnostic radioactive procedure has taken place, with no further precautions necessary other than routine body substance precautions. More information regarding radiation safety can be found using this link: [email or web address] [email or web address] SIGNATURE: KVNG MURRAY RN PATIENT NAME: GERALD STALEY DATE: 09/23/21 TIME: 10:09 AM documented in this encounter [facility] 09-23-2021 History of Present illness Narrative RADIOLOGY SERVICE PROGRESS NOTE SERVICE DATE: 09/23/2021 SERVICE TIME: 7:53 AM PATIENT IDENTITY VERIFICATION COMPLETED USING TWO (2) STANDARD IDENTIFIERS: Name and Date of confirmed by patient verbally FALL SCREENING: Has the patient had 2 falls in the last year or 1 fall with injury or currently using an Ambulatory Assistive Device (Walker, Cane, Wheelchair, Crutches, etc.)? No PATIENT GENDER DATA: .male ALLERGIES: Reviewed and unchanged MEDICATIONS REVIEWED: Yes PATIENT RELEVANT IMPLANT DATA REVIEWED: Not Applicable CREATININE: Creatinine Date Value Ref Range Status 06/06/2021 1.02 0.73 - 1.22 mg/dL Final 05/27/2021 1.06 0.73 - 1.22 mg/dL Final 05/29/2020 0.97 0.73 - 1.22 mg/dL Final Estimated Glomerular Filtration Rate Date Value Ref Range Status 06/06/2021 84 >=60 mL/min/1.73m Final Comment: Estimated Glomerular Filtration Rate (eGFR) is calculated using the 2020 CKD-EPI creatinine equation. This equation utilizes serum creatinine, sex, and age as parameters. The creatinine assay has traceable calibration to isotope dilution-mass spectrometry. Refer to KDIGO guidelines for clinical interpretation. In patients with unstable renal function, e.g. those with acute kidney injury, the eGFR may not accurately reflect actual GFR. eGFR- Date Value Ref Range Status 05/29/2020 >60 Final P.O.C.T. RESULTS: N/A September 23, [address] PERFORMED: No IV SITE: Ambulatory: A peripheral IV was started in the Right antecubital site with a Angio cath: 22 gauge. POST EXAM PIV STATUS: Discontinued PROCEDURE TYPE: KS Stress: 16.4mCi [id number] was administered IV for Rest Imaging at 07:38 by claudia Quigley. 48.3 mCi [id number] was administered IV for Stress Imaging at 08:46 by CLAUDIA Quigley. ADMINISTRATION TIME: PATIENT DISCHARGED TO: Ambulatory patient, left [place] department area. A Diagnostic radioactive procedure has taken place, with no further precautions necessary other than routine body substance precautions. More information regarding radiation safety can be found using this link: [email or web address] [email or web address] SIGNATURE: CLAUDIA Quigley PATIENT NAME: Gerald Staley DATE: September 23, 2021 TIME: 7:53 AM PAGER/CONTACT #: documented in this encounter [facility] 09-09-2021 Instructions Lisa Heller APRN.CNP - 09/09/2021 1:12 PM EDT Please call physical therapy [phone] option #2 to schedule physical therapy. documented in this encounter [facility] 09-09-2021 History of Present illness Narrative Summary: Follow Up: Virtual Visit This video visit was performed via [employer] video visit. Patient consented to receive health care services via virtual visit for this encounter Provider Location: [facility] Facility Patient Location: Patient Home or Place of Residence Risks, benefits, and limitations of receiving care virtually were discussed with the patient. The patient expressed understanding and is willing to proceed. Chief Complaint: Pain History of Present Illness: Gerald Staley is a 61 year old year old male being seen at [facility] for a evaluation and/or management of hischronic pain. The patient was last seen as a virtual visit on 08/05/21. He states that since the last visit symptoms have been worsening. Reports falling soon after having his left shoulder injected on 08/21/2021. Due to the fall, he does not feel that the injection has helped with his pain. He did have a cervical spine x-ray done on 08/06/21 which revealed: Normal anterior atlantoaxial articulation. Normal odontoid process. Normal cervical lordosis. Normal vertebral bodies and endplates. Normal disc space heights. Normal visualized intervertebral neuroforamina. This was reviewed with the patient today. He is willing to start physical therapy for his cervical spine so that we can order a MRI. Patient reports not having the MS Contin filled last month. Reports that sometime his pharmacy does not have a full prescription to give him and he forgot to check back to see if they had the MS Contin. Pain Location:Neck, Left shoulder and Right shoulder area, neck Pain Scale: 8 on 0-10 scale per patient Pain Character: aching and sharp Timing: occurs constantly Radiation: radiates bilateral arms. Patient Reports numbness, tingling and burning in shoulders and hands. The pain is exacerbated by work, activity. The pain is mitigated by medications and rest. History of Falls: YES- no ER or STAT Care He is currently prescribed Gabapentin, MS Contin, and Oxycodone from our office. The patient states the last dose of Oxycodone was taken this morning. He did not fill the MS Contin last month- this is supported by the OARRS. The medications are partially effective. Last Urine Drug Screen: 04/15/21 and was consistent with medications prescribed REVIEW OF SYSTEMS: GENERAL: No weight loss or fevers RESPIRATORY: Negative for cough CARDIOVASCULAR: Negative for chest pain GI: No nausea, vomiting, or diarrhea. MUSCULOSKELETAL: + for joint pain or swelling, back pain and muscle pain PAST MEDICAL HISTORY Diagnosis Date Abnormal EKG 04/23/2017 inf [place] age undetermined Anxiety Chicken pox Colon polyps Depression ED (erectile dysfunction) Headache HTN (hypertension) Hypogonadism male 04/25/2010 Rectal bleed Shingles Shoulder pain pain management. PAST SURGICAL HISTORY Procedure Laterality Date COLONOSCOPY FLX DX W/COLLJ SPEC WHEN PFRMD age 40 Colonoscopy COLONOSCOPY FLX DX W/COLLJ SPEC WHEN PFRMD 06/04/2010 Colonoscopy COLONOSCOPY FLX DX W/COLLJ SPEC WHEN PFRMD 05/25/2018 Multiple Fragments of Tubular Adenoma, Diverticulosis COLONOSCOPY GEN ANES 06/27/2020 Two 4 to 7 mm polyps (adenomatous and hyperplastic ) COLSC FLX W/RMVL OF TUMOR POLYP LESION SNARE TQ 05/30/2016 adenomatous polyp - small - 5 year follow up ESOPHAGOGASTRODUODENOSCOPY TRANSORAL DIAGNOSTIC 05/25/2018 Duodenitis, Gastritis FOOT SURGERY HX Right ~ 2014 OPEN REPAIR OF ROTATOR CUFF ACUTE Right 10/2016 Rotator cuff repair - Dr. Santamaria RECONSTRUCTION ROTATOR CUFF AVULSION CHRONIC Left 03/21/2010 Dr. Stalin Clark RPR UMBILICAL HRNA 5 YRS/> REDUCIBLE 06/11/2016 simple SKIN GRAFT HX Right 1986 eyelid TONSILLECTOMY HX Childhood FAMILY HISTORY Problem Relation Age of Onset Diabetes Mother Hypertension Mother Arthritis Mother Breast Cancer Mother Dementia Mother Cancer Father throat Asthma No Family History Social History Tobacco Use Smoking status: Never Smoker Smokeless tobacco: Never Used Vaping Use Vaping Use: Never used Substance Use Topics Alcohol use: Yes Alcohol/week: 15.0 standard drinks Types: 6 Cans of Beer (12oz) per week Comment: 12 pack a week Drug use: No Allergies: Bakari Inhibitors Cough Darvocet A500 [Prop* GI Upset Current Outpatient Medications Medication Sig [START ON 09/12/2021] oxyCODONE (ROXICODONE) 15 mg immediate release tablet Take 1 tablet by mouth every 8 hours as needed for pain for up to 30 days. Do not start before September 12, 2021. morphine SR (MS CONTIN) 15 mg 12 hr tablet Take 1 tablet by mouth once daily as needed for pain for up to 30 days. for Pain gabapentin (NEURONTIN) 300 mg capsule Take 1 capsule by mouth three times daily for 30 days. QUEtiapine XR (SEROQUEL XR) 150 mg Tb24 Take 1 tablet by mouth daily at bedtime. lamoTRIgine (LAMICTAL) 150 mg tablet Take 1 tablet by mouth once daily. ibuprofen (MOTRIN) 800 mg tablet Take 800 mg by mouth twice daily as needed. lidocaine-prilocaine (EMLA) 2.5-2.5 % cream APPLY TO THE AFFECTED AREA(S) THREE TIMES DAILY NEEDED FOR PAIN. traZODone (DESYREL) 50 mg tablet trazodone 50 mg tablet naloxone 4 mg/actuation nasal spray (NARCAN) Narcan 4 mg/actuation spray,non-aerosol cyclobenzaprine (FLEXERIL) 10 mg tablet Take 1/2 - 1 tablet every 8 hours as needed for pain levothyroxine (LEVOXYL) 25 mcg tablet Take 1 tablet by mouth once daily. Take on empty stomach. For Thyroid triamterene-hydroCHLOROthiazide (MAXZIDE-25MG) 37.5-25 mg per tablet Take 1 tablet by mouth once daily. losartan (COZAAR) 100 mg tablet Take 1 tablet by mouth once daily. Current Facility-Administered Medications Medication Dose Route Frequency perflutren lipid microspheres 1.3 mL in NaCl (PF) 0.9% 10 mL injection (DEFINITY) INTRAVENOUS DIRECTED PRN sodium chloride 0.9 % (flush) 10 mL (BD POSIFLUSH) 10 mL INTRAVENOUS DIRECTED PRN ASSESSMENT: Patient is stable. Chronic pain is persistent. Medications are helping Gerald Staley to have an improved quality of life. Patient compliance with Opioid Contract: patient is compliant Encounter Diagnosis ICD-10-CM 1. Chronic pain syndrome G89.4 oxyCODONE (ROXICODONE) 15 mg immediate release tablet morphine SR (MS CONTIN) 15 mg 12 hr tablet gabapentin (NEURONTIN) 300 mg capsule CONSULT TO PHYSICAL THERAPY 2. Cervicalgia M54.2 CONSULT TO PHYSICAL THERAPY 3. Osteoarthritis of both shoulders, unspecified osteoarthritis type M19.011 oxyCODONE (ROXICODONE) 15 mg immediate release tablet M19.012 morphine SR (MS CONTIN) 15 mg 12 hr tablet gabapentin (NEURONTIN) 300 mg capsule 4. Rotator cuff syndrome, unspecified laterality M75.100 5. Neck pain M54.2 oxyCODONE (ROXICODONE) 15 mg immediate release tablet morphine SR (MS CONTIN) 15 mg 12 hr tablet gabapentin (NEURONTIN) 300 mg capsule 6. Rotator cuff impingement syndrome, unspecified laterality M75.40 oxyCODONE (ROXICODONE) 15 mg immediate release tablet morphine SR (MS CONTIN) 15 mg 12 hr tablet gabapentin (NEURONTIN) 300 mg capsule 7. Obesity, Class II, BMI 35-39.9 E66.9 PLAN: The patient understands the goal of our treatment is a reduction in pain and/or an improved level of functioning with activities of daily living. If at any time the patient does not feel the medications are helping them to achieve these goals, the medications may be discontinued. The patient reports a reduction in pain and/or an improved level of functioning with activities of daily living, denies any significant adverse effects, is compliant with the pain management agreement and there are no signs of medication misuse, abuse or diversion; therefore, the medications will be continued. OARRS reviewed Continue Oxy IR 15mg TID prn Continue MSContin 15 mg QD. Continue Gabapentin to 300 mg TID. Continue Ibuprofen sparingly. Continue lidocaine-prilocaine cream Cervical spine X-Ray reviewed today Encouraged to continue counseling every 3 months Encouraged to follow instructions of PCP Norman Lundy/[place] shoulder steroidal injection prn (last inj. 08/21/2021) Start physical therapy for cervical spine. Once physical therapy is done, will submit for a c-spine MRI F/U in 1 month(s). Lisa Heller APRN.JADA documented in this encounter [facility] 09-04-2021 Miscellaneous Notes Done 08/21/2021 Has this patient been scheduled? Please schedule patient for bilateral shoulder injections with Dr. Ceballos in [place]. Thank you! documented in this encounter [facility] 08-22-2021 History of Present illness Narrative Images from the original note were not included. PSYC FOLLOW UP - PSYCHIATRIC PROGRESS NOTE DIAGNOSIS: 1. Bipolar 2 disorder 2. JE GAF: -60-51 Moderate symptoms or moderate difficulty in social, occupational or school functioning. TREATMENT PLAN: 1. Increase Lamictal to address his mood, motivation, and irritability related concerns. 2. Change Seroquel to XR formulation to see if it is better tolerated with lower sedation related side effects. 3. Continue individual psychotherapy with Dr. Linda. 4. Order monitoring lab work at the next appointment. 5. Follow up in 2 months. Medication Update: - Lamictal 150 mg - take 1 tablet once daily. - Seroquel 150 mg XR - take 1 tablet daily at bedtime. The effects and side effects of all the medications were reviewed in detail with the patient. He denies any involuntary movement related side effects. He is aware of the rash side effect associated with Lamictal. Patient is in agreement with the treatment plan and aware to reach out with any questions, concerns, or worsening of symptoms prior to the next appointment. CC: Follow up regarding his mood and anxiety HPI: Gerald Staley is a 61 year old Male with a history of Bipolar disorder and JE presenting today for follow-up. Date of last visit: 06/19/2021 Plan from last visit: 1. Continue Lamictal and Seroquel at the same dose. 2. Utilize Biotene mouth wash for dry mouth side effect. 3. Continue individual psychotherapy with Dr. Linda. 4. Follow up in 6 to 8 weeks prior to his Jury trial. 5. Order monitoring lab work at the next appointment. Today Gerald shares that he was having somatic symptoms of anxiety and he felt that he was having a heart attack. He experienced this twice in the past 2 months. The first one was 5 to 10 minutes long and the second one was 20 minutes long. He continues to struggle with irritability. Notices more fluctuations in his mood. He has been working on getting a settlement of his worker's compensation. Upset that he did not get a good representation in court. Feels that the amount of the compensation is way lower compared to the losses that he has experienced. He has been struggling with more headaches. Worried about finances and how he will be able to support himself. Considering some jobs that he might be able to do. Continues to struggle with chronic pain issues. He has more neck and shoulder pain. Thinks that he may need to have a shoulder surgery. He has had more irritability and anxiety due to the current political issues. Gets easily frustrated and has decreased the amount of news that he watches. He has been working with Dr. Linda. Finds good support in therapy. Interval Progress: Slightly worse Risks and benefits of the medication, including any black box warnings, were discussed with the patient. Social History: See HPI PATIENT DATA: Generalized Anxiety Disorder Scale (JE-7) JE - 7 SCORES 06/13/2020 10/02/2020 JE-7 Score 21 21 (0-4) minimal anxiety, (5-9) mild anxiety, (10-14) moderate anxiety, (15-21) severe anxiety Patient Health Questionnaire (PHQ-9) PHQ-9 11/07/2015 06/13/2020 10/02/2020 Score 0 24 20 (0-4) minimal depression, (5-9) mild depression, (10-14) moderate depression, (15-19) moderately severe depression, (20-27) severe depression ROS: See HPI General: Negative for fever, malaise, unintentional weight loss HEENT: Negative for recent changes in vision or hearing, no nasal drainage Respiratory: Negative for cough, wheezing or SOB Cardiovascular: Negative for chest pain GI: Negative for nausea, vomiting, change in bowel habits MUSCULOSKELETAL: See HPI SKIN: Negative for rash NEURO: Negative for headaches, seizures, focal neurological deficits All other systems negative. VITAL SIGNS: BP 138/80 (08/22/21 1026) Temp Pulse 78 (08/22/21 1026) Resp SpO2 MENTAL STATUS EXAMINATION: Appearance: Appropriately groomed, appears stated age Behavior: Appropriately engaged Psychomotor: No psychomotor agitation Cognition Level of Consciousness: Awake and alert. No fluctuation in wakefulness. Orientation: Grossly oriented Memory: Intact Attention/Concentration: Good Fund of Knowledge: Able to demonstrate an awareness of current events. Mood: Sad, anxious Affect: Congruent to mood Speech/Language: Appropriate tone, prosody, vic, phonetics, and syntax Thought Form: Goal-directed. No loosening of associations. Thought Content: No delusions noted or endorsed. Perceptual Disturbances: Did not appear to respond to auditory stimuli. Safety: Suicidal Ideations: No suicidal ideation, intent or plan. Homicidal Ideations: No homicidal ideation, intent or plan. Insight: Appropriate Judgment: Appropriate I spent a total of 28 minutes on the date of the service which included preparing to see the patient, [id number] patient care, completing clinical documentation, and counseling and educating the patient/family/caregiver, ordering medications/labs. Jennifer Stoner APRN.CNP August 22, 2021 10:27 AM This note was partially generated using [employer] voice recognition system. Note was reviewed for accuracy. There may be minor misspellings or grammar miscues with [employer] voice recognition. documented in this encounter [facility] 08-05-2021 Instructions Lisa Heller APRN.CNP - 08/05/2021 2:15 PM EDT Please have cervical spine xray done before next appointment documented in this encounter [facility] 08-05-2021 History of Present illness Narrative This visit was conducted as a virtual visit. The patient verified that he was in the state [facility]. DATE: August 05, 2021 Chief Complaint: Neck Pain, Shoulder Pain History of Present Illness: Gerald Staley is a 61 year old year old male being seen at [facility] for a evaluation and/or management of their chronic pain. He states that since the last visit symptoms have been worsening. He has not had the cervical spine x-ray completed. Reports 50% benefit for over 6 weeks with bilateral shoulder injections done on 04/18/21. Pain Location:Neck, Left shoulder and Right shoulder area Pain Scale: 8 on 0-10 scale per patient Pain Character: aching and sharp Timing: occurs constantly Radiation: radiates bilateral arms. Patient Reports numbness, tingling and burning in shoulders and hands. The pain is exacerbated by work, activity. The pain is mitigated by medications and rest. History of Falls: YES- 1 or more falls in past 3 months- no ER or STAT care He is currently prescribed Gabapentin, MS Contin, and Oxycodone from our office. The patient states the last doses MS Contin and Oxycodone was taken this morning. The medications are partially effective. Last Urine Drug Screen: 04/15/21 and was consistent with medications prescribed REVIEW OF SYSTEMS: GENERAL: No weight loss, malaise or fevers RESPIRATORY: Negative for cough, hemoptysis, wheezing, COPD, dyspnea or shortness of breath. CARDIOVASCULAR: Negative for chest pain, leg swelling, hypertension, CHF or palpitations GI: No nausea, vomiting, or diarrhea. MUSCULOSKELETAL: Negative for joint pain or swelling, back pain or muscle pain. Positive for neck and shoulder pain PAST MEDICAL HISTORY Diagnosis Date Abnormal EKG 04/23/2017 inf [place] age undetermined Colon polyps ED (erectile dysfunction) HTN (hypertension) Hypogonadism male 04/25/2010 Rectal bleed Shoulder pain pain management. PAST SURGICAL HISTORY Procedure Laterality Date COLONOSCOPY FLX DX W/COLLJ SPEC WHEN PFRMD age 40 Colonoscopy COLONOSCOPY FLX DX W/COLLJ SPEC WHEN PFRMD 06/04/2010 Colonoscopy COLONOSCOPY FLX DX W/COLLJ SPEC WHEN PFRMD 05/25/2018 Multiple Fragments of Tubular Adenoma, Diverticulosis COLONOSCOPY GEN ANES 06/27/2020 Two 4 to 7 mm polyps (adenomatous and hyperplastic ) COLSC FLX W/RMVL OF TUMOR POLYP LESION SNARE TQ 05/30/2016 adenomatous polyp - small - 5 year follow up ESOPHAGOGASTRODUODENOSCOPY TRANSORAL DIAGNOSTIC 05/25/2018 Duodenitis, Gastritis FOOT SURGERY HX Right ~ 2014 OPEN REPAIR OF ROTATOR CUFF ACUTE Right 10/2016 Rotator cuff repair - Dr. Santamaria RECONSTRUCTION ROTATOR CUFF AVULSION CHRONIC Left 03/21/2010 Dr. Stalin Clark RPR UMBILICAL HRNA 5 YRS/> REDUCIBLE 06/11/2016 simple SKIN GRAFT HX Right 1987 eyelid TONSILLECTOMY HX Childhood FAMILY HISTORY Problem Relation Age of Onset Diabetes Mother Hypertension Mother Arthritis Mother Breast Cancer Mother Dementia Mother Cancer Father throat Asthma No Family History Social History Tobacco Use Smoking status: Never Smoker Smokeless tobacco: Never Used Vaping Use Vaping Use: Never used Substance Use Topics Alcohol use: Yes Alcohol/week: 15.0 standard drinks Types: 6 Cans of Beer (12oz) per week Comment: 12 pack a week Drug use: No Work Status: not working Allergies: Bakari Inhibitors Cough Darvocet A500 [Prop* GI Upset Current Outpatient Medications Medication Sig [START ON 08/13/2021] oxyCODONE (ROXICODONE) 15 mg immediate release tablet Take 1 tablet by mouth every 8 hours as needed for pain for up to 30 days. Do not start before August 13, 2021. [START ON 08/13/2021] morphine SR (MS CONTIN) 15 mg 12 hr tablet Take 1 tablet by mouth once daily as needed for pain for up to 30 days. for Pain Do not start before August 13, 2021. [START ON 08/10/2021] gabapentin (NEURONTIN) 300 mg capsule Take 1 capsule by mouth three times daily for 30 days. Do not start before August 10, 2021. naloxone 4 mg/actuation nasal spray (NARCAN) Use 1 spray in one nostril as needed for overdose. May repeat every 2 to 3 min in alternating nostrils until medical assistance is available naproxen (NAPROSYN) 500 mg tablet Take 1 tablet by mouth twice daily with meals for 14 days. Take with food. cyclobenzaprine (FLEXERIL) 10 mg tablet Take 1/2 - 1 tablet every 8 hours as needed for pain lamoTRIgine (LAMICTAL) 100 mg tablet Take 1 tablet by mouth every evening. QUEtiapine (SEROQUEL) 50 mg tablet Take 1 tablet by mouth three times daily. levothyroxine (LEVOXYL) 25 mcg tablet Take 1 tablet by mouth once daily. Take on empty stomach. For Thyroid triamterene-hydroCHLOROthiazide (MAXZIDE-25MG) 37.5-25 mg per tablet Take 1 tablet by mouth once daily. losartan (COZAAR) 100 mg tablet Take 1 tablet by mouth once daily. Current Facility-Administered Medications Medication Dose Route Frequency perflutren lipid microspheres 1.3 mL in NaCl (PF) 0.9% 10 mL injection (DEFINITY) INTRAVENOUS DIRECTED PRN sodium chloride 0.9 % (flush) 10 mL (BD POSIFLUSH) 10 mL INTRAVENOUS DIRECTED PRN I have reviewed the nurses notes and I am aware of the family/social history. Since the last evaluation the medical history has not changed. ASSESSMENT: Assessment : Encounter Diagnosis ICD-10-CM 1. Chronic pain syndrome G89.4 oxyCODONE (ROXICODONE) 15 mg immediate release tablet morphine SR (MS CONTIN) 15 mg 12 hr tablet gabapentin (NEURONTIN) 300 mg capsule 2. Osteoarthritis of both shoulders, unspecified osteoarthritis type M19.011 oxyCODONE (ROXICODONE) 15 mg immediate release tablet M19.012 morphine SR (MS CONTIN) 15 mg 12 hr tablet gabapentin (NEURONTIN) 300 mg capsule DRAIN/INJECT LARGE JOINT/BURSA 3. Neck pain M54.2 oxyCODONE (ROXICODONE) 15 mg immediate release tablet morphine SR (MS CONTIN) 15 mg 12 hr tablet gabapentin (NEURONTIN) 300 mg capsule 4. Rotator cuff impingement syndrome, unspecified laterality M75.40 oxyCODONE (ROXICODONE) 15 mg immediate release tablet morphine SR (MS CONTIN) 15 mg 12 hr tablet gabapentin (NEURONTIN) 300 mg capsule DRAIN/INJECT LARGE JOINT/BURSA Patient is stable. Chronic pain is persistent. Medications are helping Gerald Staley to have an improved quality of life. Patient compliance with Opioid Contract: patient is compliant PDMP website checked and validated. All prescriptions have been APPROPRIATELY filled. No suspicious activity was identified. 08/05/2021 by Lisa Heller APRN.PLUG SORTER PLAN: The patient understands the goal of our treatment is a reduction in pain and/or an improved level of functioning with activities of daily living. If at any time the patient does not feel the medications are helping them to achieve these goals, the medications may be discontinued. The patient reports a reduction in pain and/or an improved level of functioning with activities of daily living, denies any significant adverse effects, is compliant with the pain management agreement and there are no signs of medication misuse, abuse or diversion; therefore, the medications will be continued. OARRS reviewed Continue Oxy IR 15mg TID prn Continue MSContin 15 mg QD. Continue Gabapentin to 300 mg TID. Continue Ibuprofen sparingly. Continue lidocaine-prilocaine cream Encouraged to continue counseling every 3 months Encouraged to follow instructions of PCP Norman Vega B/L shoulder steroidal injection under private insurance prn (last inj. 04/18/21) Have x-ray of cervical spine done at [facility] Consider PT for c-spine MRI Follow-up in 1 month- Virtual Visit Signed Prescriptions Disp Refills oxyCODONE (ROXICODONE) 15 mg immediate release tablet 90 tablet 0 Sig: Take 1 tablet by mouth every 8 hours as needed for pain for up to 30 days. Do not start before August 13, 2021. YOLIS Class: C-II JORGE: No morphine SR (MS CONTIN) 15 mg 12 hr tablet 30 tablet 0 Sig: Take 1 tablet by mouth once daily as needed for pain for up to 30 days. for Pain Do not start before August 13, 2021. YOLIS Class: C-II gabapentin (NEURONTIN) 300 mg capsule 90 capsule 0 Sig: Take 1 capsule by mouth three times daily for 30 days. Do not start before August 10, 2021. JORGE: No naloxone 4 mg/actuation nasal spray (NARCAN) 1 Each 0 Sig: Use 1 spray in one nostril as needed for overdose. May repeat every 2 to 3 min in alternating nostrils until medical assistance is available F/U in 1 month. Lisa Heller APRN.PLUG SORTER documented in this encounter [facility] 07-24-2021 History of Present illness Narrative Images from the original note were not included. Subjective The history is provided by the patient. No electronic video games servicer was used. HPI Gerald Staley is a 61 year old male who presents today for CC of acute neck pain due to recent strain, x 3 days. Patient was mowing yard with zero turn and he was going under a tree and head hit branch with pressure put on head, pushing on neck. He has used medications he takes through pain management without relief. BP 134/92 Pulse 65 Temp 36.3 C (97.3 F) Resp 20 Wt 103.1 kg (227 lb 3.2 oz) SpO2 98% BMI 36.67 kg/m Social History Tobacco Use Smoking status: Never Smoker Smokeless tobacco: Never Used Vaping Use Vaping Use: Never used Substance Use Topics Alcohol use: Yes Alcohol/week: 15.0 standard drinks Types: 6 Cans of Beer (12oz) per week Comment: 12 pack a week Drug use: No PAST MEDICAL HISTORY Diagnosis Date Abnormal EKG 04/23/2017 inf [place] age undetermined Colon polyps ED (erectile dysfunction) HTN (hypertension) Hypogonadism male 04/25/2010 Rectal bleed Shoulder pain pain management. I have confirmed and edited as necessary, the [facility] Review of Systems Constitutional: Negative for chills and fever. Musculoskeletal: Positive for myalgias and neck pain. Negative for joint pain. Skin: Negative for itching and rash. All other systems reviewed and are negative. Objective Physical Exam Vitals and nursing note reviewed. Cardiovascular: Pulses: Radial pulses are 2+ on the right side and 2+ on the left side. Pulmonary: Effort: Pulmonary effort is normal. Musculoskeletal: Cervical back: Tenderness present. No bony tenderness. Decreased range of motion. Thoracic back: Normal. Lumbar back: Normal. Back: Skin: General: Skin is warm and dry. Neurological: Mental Status: He is alert and oriented to person, place, and time. Sensory: Sensation is intact. Deep Tendon Reflexes: Reflexes are normal and symmetric. Psychiatric: Mood and Affect: Affect normal. ASSESSMENT/PLAN: 1. Strain of neck muscle, initial encounter - ICD9: 847.0, ICD10: S16.1XXA Appear to be muscle strain Notify pain management of treatment Naproxen 1 tablet twice a day as needed for food Flexeril 1/2 - 1 tablet every 8 hours as needed Stretches as discussed Follow up with PCP /pain management as needed Diagnosis and treatment plan were discussed and questions were answered to the patient's satisfaction. Pt acknowledged understanding of concepts and follow up plan. Specific signs and symptoms that would indicate the need for higher level of care were discussed in detail warranting prompt ER evaluation. Theresa Ortiz APRN.CNP documented in this encounter [facility] 07-24-2021 Instructions Theresa Ortiz APRN.CNP - 07/24/2021 11:02 AM EDT Notify pain management of treatment Naproxen 1 tablet twice a day as needed for food Flexeril 1/2 - 1 tablet every 8 hours as needed Stretches as discussed Follow up with PCP /pain management as needed documented in this encounter [facility] 06-19-2021 History of Present illness Narrative Images from the original note were not included. PSYC FOLLOW UP - PSYCHIATRIC PROGRESS NOTE DIAGNOSIS: 1. Bipolar 2 disorder 2. Generalized anxiety disorder 3. Chronic pain difficulties GAF: -60-51 Moderate symptoms or moderate difficulty in social, occupational or school functioning. TREATMENT PLAN: 1. Continue Lamictal and Seroquel at the same dose. 2. Utilize Biotene mouth wash for dry mouth side effect. 3. Continue individual psychotherapy with Dr. Linda. 4. Follow up in 6 to 8 weeks prior to his Jury trial. 5. Order monitoring lab work at the next appointment. The effects and side effects of all the medications were reviewed in detail with the patient. He denies any involuntary movement related side effects. Patient is in agreement with the treatment plan. He is aware of the rash side effect associated with Lamictal. He is aware to reach out with any questions, concerns, or worsening of symptoms prior to the next appointment. CC: Follow-up regarding mood and anxiety HPI: Gerald Staley is a 61 year old Male with a history of generalized anxiety disorder and bipolar 2 disorder presenting today for follow-up. Date of last visit: 03/27/2021 Plan from last visit: 1. Continue Lamictal and Seroquel at the same dose. 2. Encouraged patient to incorporate more physical activity into his routine. 3. Encouraged couples counseling with Dr. Linda. Patient will consider that. Today Gerald shares that he has been feeling depressed. He has noticed that there have been situations where he zones out as he is thinking about other things. He continues to struggle with pain. He has been following up with his pain management provider at [facility]. They are evaluating him for carpal tunnel as well. Greald shares that it hurts to get out of bed and drive. Sometimes he is just not motivated to get out of bed. He has gotten MRIs of his shoulders. He is going to have one for his neck. He has gotten a cortisone shot in both shoulders but he only felt good and pain-free for 5 weeks. Feels like he has still gotten irritable and has had 2 outbursts in the past 3 months. He has been experiencing some minor dry mouth side effects. Open to trying biotene mouth wash. He still feels frustrated about the lack of support that he has from his rehab therapy manager related to his should injury court settlement. Continues to struggle with financial stress. He still has some anxiety related to the jury trial in August. struggles with a lot of pain and her discomfort which makes her irritable and angry. 's mother had been in the hospital. His mother in law is now in Rehab. Patient continues to report difficulty getting support from his . Interval Progress: Same Risks and benefits of the medication, including any black box warnings, were discussed with the patient. Social History: See HPI PATIENT DATA: Generalized Anxiety Disorder Scale (JE-7) JE - 7 SCORES 06/13/2020 10/02/2020 JE-7 Score 21 21 (0-4) minimal anxiety, (5-9) mild anxiety, (10-14) moderate anxiety, (15-21) severe anxiety Patient Health Questionnaire (PHQ-9) PHQ-9 11/07/2015 06/13/2020 10/02/2020 Score 0 24 20 (0-4) minimal depression, (5-9) mild depression, (10-14) moderate depression, (15-19) moderately severe depression, (20-27) severe depression ROS: See HPI General: Negative for fever, malaise, unintentional weight loss HEENT: Negative for recent changes in vision or hearing, no nasal drainage Respiratory: Negative for cough, wheezing or SOB Cardiovascular: Negative for chest pain GI: Negative for nausea, vomiting, change in bowel habits MUSCULOSKELETAL: See HPI SKIN: Negative for rash NEURO: Negative for headaches, seizures, focal neurological deficits All other systems negative. VITAL SIGNS: BP 136/82 (06/19/21 1420) Temp Pulse 72 (06/19/21 1420) Resp SpO2 MENTAL STATUS EXAMINATION: Appearance: Appropriately groomed, appears stated age Behavior: Appropriately engaged Psychomotor: No psychomotor agitation Cognition Level of Consciousness: Awake and alert. No fluctuation in wakefulness. Orientation: Grossly oriented Memory: Intact Attention/Concentration: Good Fund of Knowledge: Able to demonstrate an awareness of current events. Mood: Depressed Affect: Congruent to mood Speech/Language: Appropriate tone, prosody, vic, phonetics, and syntax Thought Form: Goal-directed. No loosening of associations. Thought Content: No delusions noted or endorsed. Perceptual Disturbances: Did not appear to respond to auditory stimuli. Safety: Suicidal Ideations: No suicidal ideation, intent or plan. Homicidal Ideations: No homicidal ideation, intent or plan. Insight: Appropriate Judgment: Appropriate I spent a total of 28 minutes on the date of the service which included preparing to see the patient, ifre-co-psyl patient care, completing clinical documentation, and counseling and educating the patient/family/caregiver, ordering medications/labs. Jennifer Stoner APRN.JADA June 19, 2021 2:27 PM documented in this encounter [facility] 06-18-2021 Miscellaneous Notes PT has been scheduled for stress test on 09-30-2021. Schedulers please assist pt with rescheduling stress test. Adam Sutton LPN Ok, can we have them reset it up Pt called in to reschedule nuclear stress test. Pt called in scheduling had called him and left a VM letting him know that his Nuclear Stress Test on 08/05 had been canceled, and needed to be rescheduled. Pt is driving and will call back in to reschedule. documented in this encounter [facility] documented as of this encounter (statuses as of 03/03/2022) 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 10/25/2015 05/22/2016 Heel pain, bilateral 10/25/2015 05/22/2016 Reactive depression 10/05/2015 04/24/2016 Situational depression 09/17/2015 7 Strain of right shoulder 08/10/2015 017 Cervical strain 08/10/2015 05/22/2016 Sprain of rhomboid 06/12/2015 05/22/2016 Cervical myofascial strain 06/12/201505/22 Shoulder strain 06/12/2015 04/17/2017 Onychomycosis due to dermatophyte 02/08/2013 04/24/2016 Hypogonadism male 04/25/2010 05/22/2016 Rotator cuff (capsule) sprain 09/25/2008 Sprain and strain of unspeci fied site of shoulder and upper arm 06/22/2008 09/25/2008 documented as of this encounter (statuses as of 03/05/2022) 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 10/25/2015 05/22/2016 Heel pain, bilateral 10/25/2015 05/22/2016 Reactive depression 10/05/2015 04/24/2016 Situational depression 09/17/2015 04 7 Strain of right shoulder 08/10/2015 017 Cervical strain 08/10/2015 05/22/2016 Sprain of rhomboid 06/12/2015 05/22/2016 Cervical myofascial strain 06/12/201505/22 Shoulder strain 06/12/2015 04/17/2017 Onychomycosis due to dermatophyte 02/08/2013 04/24/2016 Hypogonadism male 04/25/2010 05/22/2016 Rotator cuff (capsule) sprain 09/25/2008 Sprain and strain of unspeci fied site of shoulder and upper arm 06/22/2008 09/25/2008 documented as of this encounter (statuses as of 03/29/2022) 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 10/25/2015 05/22/2016 Heel pain, bilateral 10/25/2015 05/22/2016 Reactive depression 10/05/2015 04/24/2016 Situational depression 09/17/2015 7 Strain of right shoulder 08/10/2015 017 Cervical strain 08/10/2015 05/22/2016 Sprain of rhomboid 06/12/2015 05/22/2016 Cervical myofascial strain 06/12/201505/22 Shoulder strain 06/12/2015 04/17/2017 Onychomycosis due to dermatophyte 02/08/2013 04/24/2016 Hypogonadism male 04/25/2010 05/22/2016 Rotator cuff (capsule) sprain 09/25/2008 Sprain and strain of unspeci fied site of shoulder and upper arm 06/22/2008 09/25/2008 documented as of this encounter (statuses as of 04/03/2022) 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 10/25/2015 05/22/2016 Heel pain, bilateral 10/25/2015 05/22/2016 Reactive depression 10/05/2015 04/24/2016 Situational depression 09/17/2015 7 Strain of right shoulder 08/10/2015 017 Cervical strain 08/10/2015 05/22/2016 Sprain of rhomboid 06/12/2015 05/22/2016 Cervical myofascial strain 06/12/201505/22 Shoulder strain 06/12/2015 04/17/2017 Onychomycosis due to dermatophyte 02/08/2013 04/24/2016 Hypogonadism male 04/25/2010 05/22/2016 Rotator cuff (capsule) sprain 09/25/2008 Sprain and strain of unspeci fied site of shoulder and upper arm 06/22/2008 09/25/2008 documented as of this encounter (statuses as of 04/03/2022) 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 10/25/2015 05/22/2016 Heel pain, bilateral 10/25/2015 05/22/2016 Reactive depression 10/05/2015 04/24/2016 Situational depression 09/17/2015 7 Strain of right shoulder 08/10/2015 017 Cervical strain 08/10/2015 05/22/2016 Sprain of rhomboid 06/12/2015 05/22/2016 Cervical myofascial strain 06/12/201505/22 Shoulder strain 06/12/2015 04/17/2017 Onychomycosis due to dermatophyte 02/08/2013 04/24/2016 Hypogonadism male 04/25/2010 05/22/2016 Rotator cuff (capsule) sprain 09/25/2008 Sprain and strain of unspeci fied site of shoulder and upper arm 06/22/2008 09/25/2008 documented as of this encounter (statuses as of 04/17/2022) 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 10/25/2015 05/22/2016 Heel pain, bilateral 10/25/2015 05/22/2016 Reactive depression 10/05/2015 04/24/2016 Situational depression 09/17/2015 7 Strain of right shoulder 08/10/2015 017 Cervical strain 08/10/2015 05/22/2016 Sprain of rhomboid 06/12/2015 05/22/2016 Cervical myofascial strain 06/12/201505/22 Shoulder strain 06/12/2015 04/17/2017 Onychomycosis due to dermatophyte 02/08/2013 04/24/2016 Hypogonadism male 04/25/2010 05/22/2016 Rotator cuff (capsule) sprain 09/25/2008 Sprain and strain of unspeci fied site of shoulder and upper arm 06/22/2008 09/25/2008 documented as of this encounter (statuses as of 04/24/2022) 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 10/25/2015 05/22/2016 Heel pain, bilateral 10/25/2015 05/22/2016 Reactive depression 10/05/2015 04/24/2016 Situational depression 09/17/2015 7 Strain of right shoulder 08/10/2015 017 Cervical strain 08/10/2015 05/22/2016 Sprain of rhomboid 06/12/2015 05/22/2016 Cervical myofascial strain 06/12/201505/22 Shoulder strain 06/12/2015 04/17/2017 Onychomycosis due to dermatophyte 02/08/2013 04/24/2016 Hypogonadism male 04/25/2010 05/22/2016 Rotator cuff (capsule) sprain 09/25/2008 Sprain and strain of unspeci fied site of shoulder and upper arm 06/22/2008 09/25/2008 documented as of this encounter (statuses as of 04/28/2022) 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 10/25/2015 05/22/2016 Heel pain, bilateral 10/25/2015 05/22/2016 Reactive depression 10/05/2015 04/24/2016 Situational depression 09/17/2015 7 Strain of right shoulder 08/10/2015 017 Cervical strain 08/10/2015 05/22/2016 Sprain of rhomboid 06/12/2015 05/22/2016 Cervical myofascial strain 06/12/201505/22 Shoulder strain 06/12/2015 04/17/2017 Onychomycosis due to dermatophyte 02/08/2013 04/24/2016 Hypogonadism male 04/25/2010 05/22/2016 Rotator cuff (capsule) sprain 09/25/2008 Sprain and strain of unspeci fied site of shoulder and upper arm 06/22/2008 09/25/2008 documented as of this encounter (statuses as of 05/06/2022) 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 10/25/2015 05/22/2016 Heel pain, bilateral 10/25/2015 05/22/2016 Reactive depression 10/05/2015 04/24/2016 Situational depression 09/17/2015 7 Strain of right shoulder 08/10/2015 017 Cervical strain 08/10/2015 05/22/2016 Sprain of rhomboid 06/12/2015 05/22/2016 Cervical myofascial strain 06/12/201505/22 Shoulder strain 06/12/2015 04/17/2017 Onychomycosis due to dermatophyte 02/08/2013 04/24/2016 Hypogonadism male 04/25/2010 05/22/2016 Rotator cuff (capsule) sprain 09/25/2008 Sprain and strain of unspeci fied site of shoulder and upper arm 06/22/2008 09/25/2008 documented as of this encounter (statuses as of 06/02/2022) 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 10/25/2015 05/22/2016 Heel pain, bilateral 10/25/2015 05/22/2016 Reactive depression 10/05/2015 04/24/2016 Situational depression 09/17/2015 7 Strain of right shoulder 08/10/2015 017 Cervical strain 08/10/2015 05/22/2016 Sprain of rhomboid 06/12/2015 05/22/2016 Cervical myofascial strain 06/12/201505/22 Shoulder strain 06/12/2015 04/17/2017 Onychomycosis due to dermatophyte 02/08/2013 04/24/2016 Hypogonadism male 04/25/2010 05/22/2016 Rotator cuff (capsule) sprain 09/25/2008 Sprain and strain of unspeci fied site of shoulder and upper arm 06/22/2008 09/25/2008 documented as of this encounter (statuses as of 06/02/2022) 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 10/25/2015 05/22/2016 Heel pain, bilateral 10/25/2015 05/22/2016 Reactive depression 10/05/2015 04/24/2016 Situational depression 09/17/2015 7 Strain of right shoulder 08/10/2015 017 Cervical strain 08/10/2015 05/22/2016 Sprain of rhomboid 06/12/2015 05/22/2016 Cervical myofascial strain 06/12/201505/22 Shoulder strain 06/12/2015 04/17/2017 Onychomycosis due to dermatophyte 02/08/2013 04/24/2016 Hypogonadism male 04/25/2010 05/22/2016 Rotator cuff (capsule) sprain 09/25/2008 Sprain and strain of unspeci fied site of shoulder and upper arm 06/22/2008 09/25/2008 documented as of this encounter (statuses as of 06/03/2022) 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 10/25/2015 05/22/2016 Heel pain, bilateral 10/25/2015 05/22/2016 Reactive depression 10/05/2015 04/24/2016 Situational depression 09/17/2015 7 Strain of right shoulder 08/10/2015 017 Cervical strain 08/10/2015 05/22/2016 Sprain of rhomboid 06/12/2015 05/22/2016 Cervical myofascial strain 06/12/201505/22 Shoulder strain 06/12/2015 04/17/2017 Onychomycosis due to dermatophyte 02/08/2013 04/24/2016 Hypogonadism male 04/25/2010 05/22/2016 Rotator cuff (capsule) sprain 09/25/2008 Sprain and strain of unspeci fied site of shoulder and upper arm 06/22/2008 09/25/2008 documented as of this encounter (statuses as of 06/03/2022) 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 10/25/2015 05/22/2016 Heel pain, bilateral 10/25/2015 05/22/2016 Reactive depression 10/05/2015 04/24/2016 Situational depression 09/17/2015 7 Strain of right shoulder 08/10/2015 017 Cervical strain 08/10/2015 05/22/2016 Sprain of rhomboid 06/12/2015 05/22/2016 Cervical myofascial strain 06/12/201505/22 Shoulder strain 06/12/2015 04/17/2017 Onychomycosis due to dermatophyte 02/08/2013 04/24/2016 Hypogonadism male 04/25/2010 05/22/2016 Rotator cuff (capsule) sprain 09/25/2008 Sprain and strain of unspeci fied site of shoulder and upper arm 06/22/2008 09/25/2008 documented as of this encounter (statuses as of 06/06/2022) [facility]04-15-2022 Miscellaneous Notes* Telephone Encounter - Coral Chambers Ma - 05/31/2021 11:40 AM EDT Unable to reach patient. Left detailed message on identified ('s) VM per DEMO notes. Coral Chambers Ma * Telephone Encounter - FRANSISCO Carter - 05/30/2021 3:09 PM EDT TC to patient with no answer. Left message to return call and ask to speak with a nurse. FRANSISCO Carter * Telephone Encounter - Coral Machuca Cma - 05/30/2021 8:37 AM EDT Left message for patient to return call to office Coral Machuca Cma * Telephone Encounter - Coral Machuca Cma - 05/30/2021 8:37 AM EDT ----- Message from Lauren Steen APRN.PLUG SORTER sent at 05/29/2021 5:02 PM EDT ----- Can please let patient know that I received the results of his ultrasound. It was normal. Lauren Steen APRN.CNP documented in this encounterSt. [facility] Miscellaneous Notes* Telephone Encounter - Adam Sutton LPN - 05/28/2021 4:21 PM EDT Pt notified. He verbalized understanding. Adam Sutton LPN * Telephone Encounter - Lauren Steen APRN.CNP - 05/28/2021 4:07 PM EDT Prescription was sent. Please remind patient to come in in the next week to repeat his liver lab work. Please try to avoidany Tylenol or alcohol. He will need to repeat his thyroid lab work in 2 months. The orders are in. Lauren Steen APRN.JADA * Telephone Encounter - Samanta Waldrop LPN - 05/28/2021 1:32 PM EDT Pt was notified of results & instructions. #1. Pt states he feels super tired all the time & has no energy. Pt states he would like to start medication for his thyroid, pt uses [facility] in [place]. #2 Pt states he does not take tylenol. He drinks 3-5 beers usually twice weekly. Please notify pt when Rx has been sent in. Samanta Waldrop LPN * Telephone Encounter - Adam Sutton LPN - 05/28/2021 11:05 AM EDT TC to pt phone #, reached recording that stated this facility is not available for this subscriber. TC to mobile number, spoke /c pt . She will have pt return call to office. Adam Sutton LPN * Telephone Encounter - Lauren Steen APRN.CNP - 05/28/2021 9:17 AM EDT Can please let patient know that I received his lab results. 1. His thyroid level is still just a little on the underactive side. If he is having symptoms of fatigue, we certainly can go ahead and start medication for this. If we start medication, then this will need to be rechecked in 6-8 weeks to ensure that he is on the appropriate dose of medication. If he would like to continue to monitor (as it is just minimally off), we should repeat labs again in 6months. 2. One of his liver enzymes is elevated. I would like to go ahead and repeat this labwork. The orders are in, so he can stop in at his convenience to complete. Please check with patient re: recent tylenol or alcohol usage. 3. His other labs looked within normal. Lauren Steen APRN.JADA documented in this encounterSt. 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 sciatica 10/25/2015 05/22/2016 Heel pain, bilateral 10/25/2015 05/22/2016 Reactive depression 10/05/2015 04/24/2016 Situational depression 09/17/2015 7 Strain of right shoulder 08/10/2015 017 Cervical strain 08/10/2015 05/22/2016 Sprain of rhomboid 06/12/2015 05/22/2016 Cervical myofascial strain 06/12/201505/22 Shoulder strain 06/12/2015 04/17/2017 Onychomycosis due to dermatophyte 02/08/2013 04/24/2016 Hypogonadism male 04/25/2010 05/22/2016 Rotator cuff (capsule) sprain 09/25/2008 Sprain and strain of unspeci fied site of shoulder and upper arm 06/22/2008 09/25/2008 documented as of this encounter (statuses as of 10/16/2021) 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 sciatica 10/25/2015 05/22/2016 Heel pain, bilateral 10/25/2015 05/22/2016 Reactive depression 10/05/2015 04/24/2016 Situational depression 09/17/2015 7 Strain of right shoulder 08/10/2015 017 Cervical strain 08/10/2015 05/22/2016 Sprain of rhomboid 06/12/2015 05/22/2016 Cervical myofascial strain 06/12/201505/22 Shoulder strain 06/12/2015 04/17/2017 Onychomycosis due to dermatophyte 02/08/2013 04/24/2016 Hypogonadism male 04/25/2010 05/22/2016 Rotator cuff (capsule) sprain 09/25/2008 Sprain and strain of unspeci fied site of shoulder and upper arm 06/22/2008 09/25/2008 documented as of this encounter (statuses as of 10/28/2021) 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 sciatica 10/25/2015 05/22/2016 Heel pain, bilateral 10/25/2015 05/22/2016 Reactive depression 10/05/2015 04/24/2016 Situational depression 09/17/2015 7 Strain of right shoulder 08/10/2015 017 Cervical strain 08/10/2015 05/22/2016 Sprain of rhomboid 06/12/2015 05/22/2016 Cervical myofascial strain 06/12/201505/22 Shoulder strain 06/12/2015 04/17/2017 Onychomycosis due to dermatophyte 02/08/2013 04/24/2016 Hypogonadism male 04/25/2010 05/22/2016 Rotator cuff (capsule) sprain 09/25/2008 Sprain and strain of unspeci fied site of shoulder and upper arm 06/22/2008 09/25/2008 documented as of this encounter (statuses as of 10/31/2021) 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 sciatica 10/25/2015 05/22/2016 Heel pain, bilateral 10/25/2015 05/22/2016 Reactive depression 10/05/2015 04/24/2016 Situational depression 09/17/2015 7 Strain of right shoulder 08/10/2015 017 Cervical strain 08/10/2015 05/22/2016 Sprain of rhomboid 06/12/2015 05/22/2016 Cervical myofascial strain 06/12/201505/22 Shoulder strain 06/12/2015 04/17/2017 Onychomycosis due to dermatophyte 02/08/2013 04/24/2016 Hypogonadism male 04/25/2010 05/22/2016 Rotator cuff (capsule) sprain 09/25/2008 Sprain and strain of unspeci fied site of shoulder and upper arm 06/22/2008 09/25/2008 documented as of this encounter (statuses as of 11/05/2021) 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 sciatica 10/25/2015 05/22/2016 Heel pain, bilateral 10/25/2015 05/22/2016 Reactive depression 10/05/2015 04/24/2016 Situational depression 09/17/2015 7 Strain of right shoulder 08/10/2015 017 Cervical strain 08/10/2015 05/22/2016 Sprain of rhomboid 06/12/2015 05/22/2016 Cervical myofascial strain 06/12/201505/22 Shoulder strain 06/12/2015 04/17/2017 Onychomycosis due to dermatophyte 02/08/2013 04/24/2016 Hypogonadism male 04/25/2010 05/22/2016 Rotator cuff (capsule) sprain 09/25/2008 Sprain and strain of unspeci fied site of shoulder and upper arm 06/22/2008 09/25/2008 documented as of this encounter (statuses as of 11/05/2021) 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 sciatica 10/25/2015 05/22/2016 Heel pain, bilateral 10/25/2015 05/22/2016 Reactive depression 10/05/2015 04/24/2016 Situational depression 09/17/2015 7 Strain of right shoulder 08/10/2015 017 Cervical strain 08/10/2015 05/22/2016 Sprain of rhomboid 06/12/2015 05/22/2016 Cervical myofascial strain 06/12/201505/22 Shoulder strain 06/12/2015 04/17/2017 Onychomycosis due to dermatophyte 02/08/2013 04/24/2016 Hypogonadism male 04/25/2010 05/22/2016 Rotator cuff (capsule) sprain 09/25/2008 Sprain and strain of unspeci fied site of shoulder and upper arm 06/22/2008 09/25/2008 documented as of this encounter (statuses as of 11/06/2021) 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 sciatica 10/25/2015 05/22/2016 Heel pain, bilateral 10/25/2015 05/22/2016 Reactive depression 10/05/2015 04/24/2016 Situational depression 09/17/2015 7 Strain of right shoulder 08/10/2015 017 Cervical strain 08/10/2015 05/22/2016 Sprain of rhomboid 06/12/2015 05/22/2016 Cervical myofascial strain 06/12/201505/22 Shoulder strain 06/12/2015 04/17/2017 Onychomycosis due to dermatophyte 02/08/2013 04/24/2016 Hypogonadism male 04/25/2010 05/22/2016 Rotator cuff (capsule) sprain 09/25/2008 Sprain and strain of unspeci fied site of shoulder and upper arm 06/22/2008 09/25/2008 documented as of this encounter (statuses as of 11/22/2021) 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 sciatica 10/25/2015 05/22/2016 Heel pain, bilateral 10/25/2015 05/22/2016 Reactive depression 10/05/2015 04/24/2016 Situational depression 09/17/2015 7 Strain of right shoulder 08/10/2015 017 Cervical strain 08/10/2015 05/22/2016 Sprain of rhomboid 06/12/2015 05/22/2016 Cervical myofascial strain 06/12/201505/22 Shoulder strain 06/12/2015 04/17/2017 Onychomycosis due to dermatophyte 02/08/2013 04/24/2016 Hypogonadism male 04/25/2010 05/22/2016 Rotator cuff (capsule) sprain 09/25/2008 Sprain and strain of unspeci fied site of shoulder and upper arm 06/22/2008 09/25/2008 documented as of this encounter (statuses as of 12/04/2021) 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 sciatica 10/25/2015 05/22/2016 Heel pain, bilateral 10/25/2015 05/22/2016 Reactive depression 10/05/2015 04/24/2016 Situational depression 09/17/2015 7 Strain of right shoulder 08/10/2015 017 Cervical strain 08/10/2015 05/22/2016 Sprain of rhomboid 06/12/2015 05/22/2016 Cervical myofascial strain 06/12/201505/22 Shoulder strain 06/12/2015 04/17/2017 Onychomycosis due to dermatophyte 02/08/2013 04/24/2016 Hypogonadism male 04/25/2010 05/22/2016 Rotator cuff (capsule) sprain 09/25/2008 Sprain and strain of unspeci fied site of shoulder and upper arm 06/22/2008 09/25/2008 documented as of this encounter (statuses as of 12/20/2021) 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 sciatica 10/25/2015 05/22/2016 Heel pain, bilateral 10/25/2015 05/22/2016 Reactive depression 10/05/2015 04/24/2016 Situational depression 09/17/2015 7 Strain of right shoulder 08/10/2015 017 Cervical strain 08/10/2015 05/22/2016 Sprain of rhomboid 06/12/2015 05/22/2016 Cervical myofascial strain 06/12/201505/22 Shoulder strain 06/12/2015 04/17/2017 Onychomycosis due to dermatophyte 02/08/2013 04/24/2016 Hypogonadism male 04/25/2010 05/22/2016 Rotator cuff (capsule) sprain 09/25/2008 Sprain and strain of unspeci fied site of shoulder and upper arm 06/22/2008 09/25/2008 documented as of this encounter (statuses as of 01/06/2022) 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 sciatica 10/25/2015 05/22/2016 Heel pain, bilateral 10/25/2015 05/22/2016 Reactive depression 10/05/2015 04/24/2016 Situational depression 09/17/2015 7 Strain of right shoulder 08/10/2015 017 Cervical strain 08/10/2015 05/22/2016 Sprain of rhomboid 06/12/2015 05/22/2016 Cervical myofascial strain 06/12/201505/22 Shoulder strain 06/12/2015 04/17/2017 Onychomycosis due to dermatophyte 02/08/2013 04/24/2016 Hypogonadism male 04/25/2010 05/22/2016 Rotator cuff (capsule) sprain 09/25/2008 Sprain and strain of unspeci fied site of shoulder and upper arm 06/22/2008 09/25/2008 documented as of this encounter (statuses as of 01/08/2022) 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 sciatica 10/25/2015 05/22/2016 Heel pain, bilateral 10/25/2015 05/22/2016 Reactive depression 10/05/2015 04/24/2016 Situational depression 09/17/2015 04/ 7 Strain of right shoulder 08/10/2015 017 Cervical strain 08/10/2015 05/22/2016 Sprain of rhomboid 06/12/2015 05/22/2016 Cervical myofascial strain 06/12/201505/22 Shoulder strain 06/12/2015 04/17/2017 Onychomycosis due to dermatophyte 02/08/2013 04/24/2016 Hypogonadism male 04/25/2010 05/22/2016 Rotator cuff (capsule) sprain 09/25/2008 Sprain and strain of unspeci fied site of shoulder and upper arm 06/22/2008 09/25/2008 documented as of this encounter (statuses as of 01/08/2022) 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 sciatica 10/25/2015 05/22/2016 Heel pain, bilateral 10/25/2015 05/22/2016 Reactive depression 10/05/2015 04/24/2016 Situational depression 09/17/2015 7 Strain of right shoulder 08/10/2015 017 Cervical strain 08/10/2015 05/22/2016 Sprain of rhomboid 06/12/2015 05/22/2016 Cervical myofascial strain 06/12/201505/22 Shoulder strain 06/12/2015 04/17/2017 Onychomycosis due to dermatophyte 02/08/2013 04/24/2016 Hypogonadism male 04/25/2010 05/22/2016 Rotator cuff (capsule) sprain 09/25/2008 Sprain and strain of unspeci fied site of shoulder and upper arm 06/22/2008 09/25/2008 documented as of this encounter (statuses as of 01/13/2022) 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 sciatica 10/25/2015 05/22/2016 Heel pain, bilateral 10/25/2015 05/22/2016 Reactive depression 10/05/2015 04/24/2016 Situational depression 09/17/2015 7 Strain of right shoulder 08/10/2015 017 Cervical strain 08/10/2015 05/22/2016 Sprain of rhomboid 06/12/2015 05/22/2016 Cervical myofascial strain 06/12/201505/22 Shoulder strain 06/12/2015 04/17/2017 Onychomycosis due to dermatophyte 02/08/2013 04/24/2016 Hypogonadism male 04/25/2010 05/22/2016 Rotator cuff (capsule) sprain 09/25/2008 Sprain and strain of unspeci fied site of shoulder and upper arm 06/22/2008 09/25/2008 documented as of this encounter (statuses as of 01/14/2022) 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 sciatica 10/25/2015 05/22/2016 Heel pain, bilateral 10/25/2015 05/22/2016 Reactive depression 10/05/2015 04/24/2016 Situational depression 09/17/2015 7 Strain of right shoulder 08/10/2015 017 Cervical strain 08/10/2015 05/22/2016 Sprain of rhomboid 06/12/2015 05/22/2016 Cervical myofascial strain 06/12/201505/22 Shoulder strain 06/12/2015 04/17/2017 Onychomycosis due to dermatophyte 02/08/2013 04/24/2016 Hypogonadism male 04/25/2010 05/22/2016 Rotator cuff (capsule) sprain 09/25/2008 Sprain and strain of unspeci fied site of shoulder and upper arm 06/22/2008 09/25/2008 documented as of this encounter (statuses as of 01/28/2022) 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 sciatica 10/25/2015 05/22/2016 Heel pain, bilateral 10/25/2015 05/22/2016 Reactive depression 10/05/2015 04/24/2016 Situational depression 09/17/2015 04/ 7 Strain of right shoulder 08/10/2015 017 Cervical strain 08/10/2015 05/22/2016 Sprain of rhomboid 06/12/2015 05/22/2016 Cervical myofascial strain 06/12/201505/22 Shoulder strain 06/12/2015 04/17/2017 Onychomycosis due to dermatophyte 02/08/2013 04/24/2016 Hypogonadism male 04/25/2010 05/22/2016 Rotator cuff (capsule) sprain 09/25/2008 Sprain and strain of unspeci fied site of shoulder and upper arm 06/22/2008 09/25/2008 documented as of this encounter (statuses as of 02/05/2022) 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 sciatica 10/25/2015 05/22/2016 Heel pain, bilateral 10/25/2015 05/22/2016 Reactive depression 10/05/2015 04/24/2016 Situational depression 09/17/2015 7 Strain of right shoulder 08/10/2015 017 Cervical strain 08/10/2015 05/22/2016 Sprain of rhomboid 06/12/2015 05/22/2016 Cervical myofascial strain 06/12/201505/22 Shoulder strain 06/12/2015 04/17/2017 Onychomycosis due to dermatophyte 02/08/2013 04/24/2016 Hypogonadism male 04/25/2010 05/22/2016 Rotator cuff (capsule) sprain 09/25/2008 Sprain and strain of unspeci fied site of shoulder and upper arm 06/22/2008 09/25/2008 documented as of this encounter (statuses as of 02/06/2022) 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 sciatica 10/25/2015 05/22/2016 Heel pain, bilateral 10/25/2015 05/22/2016 Reactive depression 10/05/2015 04/24/2016 Situational depression 09/17/2015 7 Strain of right shoulder 08/10/2015 017 Cervical strain 08/10/2015 05/22/2016 Sprain of rhomboid 06/12/2015 05/22/2016 Cervical myofascial strain 06/12/201505/22 Shoulder strain 06/12/2015 04/17/2017 Onychomycosis due to dermatophyte 02/08/2013 04/24/2016 Hypogonadism male 04/25/2010 05/22/2016 Rotator cuff (capsule) sprain 09/25/2008 Sprain and strain of unspeci fied site of shoulder and upper arm 06/22/2008 09/25/2008 documented as of this encounter (statuses as of 02/09/2022) [facility]04[facility]12[facility] History of Past illness Narrative* Problem Noted Date Resolved Date Hypothyroidism, acquired 05/28/2021 022 Chest pain 01/06/2020 10/03/2020 Strain of other muscles, fas gume and tendons at shoulder and upper arm level, right arm, subsequent encounter 11/10/201604/17 Sprain of other specified pa rts of right shoulder girdle, subsequent encounter 11/10/2016 04/17/2017 Umbilical hernia without obstruction and without gangrene 06/05/2016 06/11/2016 Chronic pain 11/09/2015 05/22/2016 Chronic right-sided low back pain with right-sukhedv ed sciatica 10/25/2015 05/22/2016 Heel pain, bilateral 10/25/2015 05/22/2016 Reactive depression 10/05/2015 04/24/2016 Situational depression 09/17/2015 04 7 Strain of right shoulder 08/10/2015 017 Cervical strain 08/10/2015 05/22/2016 Sprain of rhomboid 06/12/2015 05/22/2016 Cervical myofascial strain 06/12/201505/22 Shoulder strain 06/12/2015 04/17/2017 Onychomycosis due to dermatophyte 02/08/2013 04/24/2016 Hypogonadism male 04/25/2010 05/22/2016 Rotator cuff (capsule) sprain 09/25/2008 Sprain and strain of unspeci fied site of shoulder and upper arm 06/22/2008 09/25/2008 documented as of this encounter (statuses as of 02/16/2022) [facility]04[facility]12[facility]22 History of Past illness Narrative* Problem Noted Date Resolved Date Hypothyroidism, acquired 05/28/2021 022 Strain of other muscles, fas gume and tendons at shoulder and upper arm level, right arm, subsequent encounter 11/10/201604/17 Sprain of other specified pa rts of right shoulder girdle, subsequent encounter 11/10/2016 04/17/2017 Umbilical hernia without obstruction and without gangrene 06/05/2016 06/11/2016 Chronic pain 11/09/2015 05/22/2016 Chronic right-sided low back pain with right-sukhdev ed sciatica 10/25/2015 05/22/2016 Heel pain, bilateral 10/25/2015 05/22/2016 Reactive depression 10/05/2015 04/24/2016 Situational depression 09/17/2015 7 Strain of right shoulder 08/10/2015 017 Cervical strain 08/10/2015 05/22/2016 Sprain of rhomboid 06/12/2015 05/22/2016 Cervical myofascial strain 06/12/201505/22 Shoulder strain 06/12/2015 04/17/2017 Onychomycosis due to dermatophyte 02/08/2013 04/24/2016 Hypogonadism male 04/25/2010 05/22/2016 Rotator cuff (capsule) sprain 09/25/2008 Sprain and strain of unspeci fied site of shoulder and upper arm 06/22/2008 09/25/2008 documented as of this encounter (statuses as of 07/01/2022) [facility]04[facility]12[facility]22 History of Past illness Narrative* Problem Noted Date Resolved Date Hypothyroidism, acquired 05/28/2021 022 Strain of other muscles, fas gume and tendons at shoulder and upper arm level, right arm, subsequent encounter 11/10/201604/17 Sprain of other specified pa rts of right shoulder girdle, subsequent encounter 11/10/2016 04/17/2017 Umbilical hernia without obstruction and without gangrene 06/05/2016 06/11/2016 Chronic pain 11/09/2015 05/22/2016 Chronic right-sided low back pain with right-sukhdev ed sciatica 10/25/2015 05/22/2016 Heel pain, bilateral 10/25/2015 05/22/2016 Reactive depression 10/05/2015 04/24/2016 Situational depression 09/17/2015 7 Strain of right shoulder 08/10/2015 017 Cervical strain 08/10/2015 05/22/2016 Sprain of rhomboid 06/12/2015 05/22/2016 Cervical myofascial strain 06/12/201505/22 Shoulder strain 06/12/2015 04/17/2017 Onychomycosis due to dermatophyte 02/08/2013 04/24/2016 Hypogonadism male 04/25/2010 05/22/2016 Rotator cuff (capsule) sprain 09/25/2008 Sprain and strain of unspeci fied site of shoulder and upper arm 06/22/2008 09/25/2008 documented as of this encounter (statuses as of 08/12/2022) [facility]04[facility]22 History of Past illness Narrative* Problem Noted Date Diagnosed Date Resolved Date Hypothyroidism, acquired 05/28/2021 Strain of other muscles, fas gume and tendons at shoulder and upper arm level, right arm, subsequent encounter 11/10/2016 04/17/2017 Sprain of other specified pa rts of right shoulder girdle, subsequent encounter 11/10/2016 Umbilical hernia without obs truction and without gangrene 06/05/2016 06/11/2016 Chronic pain 11/09/2015 05/22/2016 Chronic right-sided low back pain with right-sided sciatica 10/25/2015 05/22/2016 Heel pain, bilateral 10/25/2015 017 Reactive depression 10/05/2015 04/25/19 17 Situational depression 09/17/201505/22 Strain of right shoulder 08/10/201507/2016 Cervical strain 08/10/2015 05/22/2016 Sprain of rhomboid 06/12/2015 7 Cervical myofascial strain 06/12/2015 0 05/22/2016 Shoulder strain 06/12/2015 04/17/2017 Onychomycosis due to dermatophyte 02/08/2013 04/24/2016 Hypogonadism male 04/25/2010 05/22/2016 Rotator cuff (capsule) sprain 09/25/2008 05/22/2016 Sprain and strain of unspeci fied site of shoulder and upper arm 06/22/2008 09/25/2008 documented as of this encounter (statuses as of 09/01/2022) [facility]04[facility]12[facility] History of Past illness Narrative* Problem Noted Date Diagnosed Date Resolved Date Hypothyroidism, acquired 05/28/2021 Strain of other muscles, fas gume and tendons at shoulder and upper arm level, right arm, subsequent encounter 11/10/2016 04/17/2017 Sprain of other specified pa rts of right shoulder girdle, subsequent encounter 11/10/2016 Umbilical hernia without obs truction and without gangrene 06/05/2016 06/11/2016 Chronic pain 11/09/2015 05/22/2016 Chronic right-sided low back pain with right-sided sciatica 10/25/2015 05/22/2016 Heel pain, bilateral 10/25/2015 017 Reactive depression 10/05/2015 04/25/19 17 Situational depression 09/17/201505/22 Strain of right shoulder 08/10/201507/2016 Cervical strain 08/10/2015 05/22/2016 Sprain of rhomboid 06/12/2015 7 Cervical myofascial strain 06/12/2015 0 05/22/2016 Shoulder strain 06/12/2015 04/17/2017 Onychomycosis due to dermatophyte 02/08/2013 04/24/2016 Hypogonadism male 04/25/2010 05/22/2016 Rotator cuff (capsule) sprain 09/25/2008 05/22/2016 Sprain and strain of unspeci fied site of shoulder and upper arm 06/22/2008 09/25/2008 documented as of this encounter (statuses as of 10/01/2022) [facility]04[facility] History of Past illness Narrative* Problem Noted Date Diagnosed Date Resolved Date Hypothyroidism, acquired 05/28/2021 Strain of other muscles, fas gume and tendons at shoulder and upper arm level, right arm, subsequent encounter 11/10/2016 04/17/2017 Sprain of other specified pa rts of right shoulder girdle, subsequent encounter 11/10/2016 Umbilical hernia without obs truction and without gangrene 06/05/2016 06/11/2016 Chronic pain 11/09/2015 05/22/2016 Chronic right-sided low back pain with right-sided sciatica 10/25/2015 05/22/2016 Heel pain, bilateral 10/25/2015 017 Reactive depression 10/05/2015 04/25/19 17 Situational depression 09/17/201505/22 Strain of right shoulder 08/10/201507/2016 Cervical strain 08/10/2015 05/22/2016 Sprain of rhomboid 06/12/2015 7 Cervical myofascial strain 06/12/2015 0 05/22/2016 Shoulder strain 06/12/2015 04/17/2017 Onychomycosis due to dermatophyte 02/08/2013 04/24/2016 Hypogonadism male 04/25/2010 05/22/2016 Rotator cuff (capsule) sprain 09/25/2008 05/22/2016 Sprain and strain of unspeci fied site of shoulder and upper arm 06/22/2008 09/25/2008 documented as of this encounter (statuses as of 10/27/2022) [facility] History of Past illness Narrative* Problem Noted Date Diagnosed Date Resolved Date Hypothyroidism, acquired 05/28/2021 Strain of other muscles, fas gume and tendons at shoulder and upper arm level, right arm, subsequent encounter 11/10/2016 04/17/2017 Sprain of other specified pa rts of right shoulder girdle, subsequent encounter 11/10/2016 Umbilical hernia without obs truction and without gangrene 06/05/2016 06/11/2016 Chronic pain 11/09/2015 05/22/2016 Chronic right-sided low back pain with right-sided sciatica 10/25/2015 05/22/2016 Heel pain, bilateral 10/25/2015 017 Reactive depression 10/05/2015 04/25/19 17 Situational depression 09/17/201505/22 Strain of right shoulder 08/10/201507/2016 Cervical strain 08/10/2015 05/22/2016 Sprain of rhomboid 06/12/2015 7 Cervical myofascial strain 06/12/2015 0 05/22/2016 Shoulder strain 06/12/2015 04/17/2017 Onychomycosis due to dermatophyte 02/08/2013 04/24/2016 Hypogonadism male 04/25/2010 05/22/2016 Rotator cuff (capsule) sprain 09/25/2008 05/22/2016 Sprain and strain of unspeci fied site of shoulder and upper arm 06/22/2008 09/25/2008 documented as of this encounter (statuses as of 10/30/2022) [facility] History of Past illness Narrative* Problem Noted Date Diagnosed Date Resolved Date Hypothyroidism, acquired 05/28/2021 Strain of other muscles, fas gume and tendons at shoulder and upper arm level, right arm, subsequent encounter 11/10/2016 04/17/2017 Sprain of other specified pa rts of right shoulder girdle, subsequent encounter 11/10/2016 Umbilical hernia without obs truction and without gangrene 06/05/2016 06/11/2016 Chronic pain 11/09/2015 05/22/2016 Chronic right-sided low back pain with right-sided sciatica 10/25/2015 05/22/2016 Heel pain, bilateral 10/25/2015 017 Reactive depression 10/05/2015 04/25/19 17 Situational depression 09/17/201505/22 Strain of right shoulder 08/10/201507/2016 Cervical strain 08/10/2015 05/22/2016 Sprain of rhomboid 06/12/2015 7 Cervical myofascial strain 06/12/2015 0 05/22/2016 Shoulder strain 06/12/2015 04/17/2017 Onychomycosis due to dermatophyte 02/08/2013 04/24/2016 Hypogonadism male 04/25/2010 05/22/2016 Rotator cuff (capsule) sprain 09/25/2008 05/22/2016 Sprain and strain of unspeci fied site of shoulder and upper arm 06/22/2008 09/25/2008 documented as of this encounter (statuses as of 11/10/2022) [facility]04[facility] History of Past illness Narrative* Problem Noted Date Diagnosed Date Resolved Date Hypothyroidism, acquired 05/28/2021 Strain of other muscles, fas gume and tendons at shoulder and upper arm level, right arm, subsequent encounter 11/10/2016 04/17/2017 Sprain of other specified pa rts of right shoulder girdle, subsequent encounter 11/10/2016 Umbilical hernia without obs truction and without gangrene 06/05/2016 06/11/2016 Chronic pain 11/09/2015 05/22/2016 Chronic right-sided low back pain with right-sided sciatica 10/25/2015 05/22/2016 Heel pain, bilateral 10/25/2015 017 Reactive depression 10/05/2015 04/25/19 17 Situational depression 09/17/201505/22 Strain of right shoulder 08/10/201507/2016 Cervical strain 08/10/2015 05/22/2016 Sprain of rhomboid 06/12/2015 7 Cervical myofascial strain 06/12/2015 0 05/22/2016 Shoulder strain 06/12/2015 04/17/2017 Onychomycosis due to dermatophyte 02/08/2013 04/24/2016 Hypogonadism male 04/25/2010 05/22/2016 Rotator cuff (capsule) sprain 09/25/2008 05/22/2016 Sprain and strain of unspeci fied site of shoulder and upper arm 06/22/2008 09/25/2008 documented as of this encounter (statuses as of 11/28/2022) [facility] History of Past illness Narrative* Problem Noted Date Diagnosed Date Resolved Date Hypothyroidism, acquired 05/28/2021 Strain of other muscles, fas gume and tendons at shoulder and upper arm level, right arm, subsequent encounter 11/10/2016 04/17/2017 Sprain of other specified pa rts of right shoulder girdle, subsequent encounter 11/10/2016 Umbilical hernia without obs truction and without gangrene 06/05/2016 06/11/2016 Chronic pain 11/09/2015 05/22/2016 Chronic right-sided low back pain with right-sided sciatica 10/25/2015 05/22/2016 Heel pain, bilateral 10/25/2015 017 Reactive depression 10/05/2015 04/25/19 17 Situational depression 09/17/201505/22 Strain of right shoulder 08/10/201507/2016 Cervical strain 08/10/2015 05/22/2016 Sprain of rhomboid 06/12/2015 7 Cervical myofascial strain 06/12/2015 0 05/22/2016 Shoulder strain 06/12/2015 04/17/2017 Onychomycosis due to dermatophyte 02/08/2013 04/24/2016 Hypogonadism male 04/25/2010 05/22/2016 Rotator cuff (capsule) sprain 09/25/2008 05/22/2016 Sprain and strain of unspeci fied site of shoulder and upper arm 06/22/2008 09/25/2008 documented as of this encounter (statuses as of 11/28/2022) [facility]04-12-2022 History of Past illness Narrative* Problem Noted Date Diagnosed Date Resolved Date Hypothyroidism, acquired 05/28/2021 Strain of other muscles, fas gume and tendons at shoulder and upper arm level, right arm, subsequent encounter 11/10/2016 04/17/2017 Sprain of other specified pa rts of right shoulder girdle, subsequent encounter 11/10/2016 Umbilical hernia without obs truction and without gangrene 06/05/2016 06/11/2016 Chronic pain 11/09/2015 05/22/2016 Chronic right-sided low back pain with right-sided sciatica 10/25/2015 05/22/2016 Heel pain, bilateral 10/25/2015 017 Reactive depression 10/05/2015 04/25/19 17 Situational depression 09/17/201505/22 Strain of right shoulder 08/10/201507/2016 Cervical strain 08/10/2015 05/22/2016 Sprain of rhomboid 06/12/2015 7 Cervical myofascial strain 06/12/2015 0 05/22/2016 Shoulder strain 06/12/2015 04/17/2017 Onychomycosis due to dermatophyte 02/08/2013 04/24/2016 Hypogonadism male 04/25/2010 05/22/2016 Rotator cuff (capsule) sprain 09/25/2008 05/22/2016 Sprain and strain of unspeci fied site of shoulder and upper arm 06/22/2008 09/25/2008 documented as of this encounter (statuses as of 12/03/2022) [facility]04-12-2022 History of Past illness Narrative* Problem Noted Date Diagnosed Date Resolved Date Hypothyroidism, acquired 05/28/2021 Strain of other muscles, fas gume and tendons at shoulder and upper arm level, right arm, subsequent encounter 11/10/2016 04/17/2017 Sprain of other specified pa rts of right shoulder girdle, subsequent encounter 11/10/2016 Umbilical hernia without obs truction and without gangrene 06/05/2016 06/11/2016 Chronic pain 11/09/2015 05/22/2016 Chronic right-sided low back pain with right-sided sciatica 10/25/2015 05/22/2016 Heel pain, bilateral 10/25/2015 017 Reactive depression 10/05/2015 04/25/19 17 Situational depression 09/17/201505/22 Strain of right shoulder 08/10/201507/2016 Cervical strain 08/10/2015 05/22/2016 Sprain of rhomboid 06/12/2015 7 Cervical myofascial strain 06/12/2015 0 05/22/2016 Shoulder strain 06/12/2015 04/17/2017 Onychomycosis due to dermatophyte 02/08/2013 04/24/2016 Hypogonadism male 04/25/2010 05/22/2016 Rotator cuff (capsule) sprain 09/25/2008 05/22/2016 Sprain and strain of unspeci fied site of shoulder and upper arm 06/22/2008 09/25/2008 documented as of this encounter (statuses as of 12/21/2022) [facility]04-12-2022 History of Past illness Narrative* Problem Noted Date Diagnosed Date Resolved Date Hypothyroidism, acquired 05/28/2021 Strain of other muscles, fas gume and tendons at shoulder and upper arm level, right arm, subsequent encounter 11/10/2016 04/17/2017 Sprain of other specified pa rts of right shoulder girdle, subsequent encounter 11/10/2016 Umbilical hernia without obs truction and without gangrene 06/05/2016 06/11/2016 Chronic pain 11/09/2015 05/22/2016 Chronic right-sided low back pain with right-sided sciatica 10/25/2015 05/22/2016 Heel pain, bilateral 10/25/2015 017 Reactive depression 10/05/2015 04/25/19 17 Situational depression 09/17/201505/22 Strain of right shoulder 08/10/201507/2016 Cervical strain 08/10/2015 05/22/2016 Sprain of rhomboid 06/12/2015 7 Cervical myofascial strain 06/12/2015 0 05/22/2016 Shoulder strain 06/12/2015 04/17/2017 Onychomycosis due to dermatophyte 02/08/2013 04/24/2016 Hypogonadism male 04/25/2010 05/22/2016 Rotator cuff (capsule) sprain 09/25/2008 05/22/2016 Sprain and strain of unspeci fied site of shoulder and upper arm 06/22/2008 09/25/2008 documented as of this encounter (statuses as of 12/21/2022) [facility]04-12-2022 History of Past illness Narrative* Problem Noted Date Diagnosed Date Resolved Date Hypothyroidism, acquired 05/28/2021 Strain of other muscles, fas gume and tendons at shoulder and upper arm level, right arm, subsequent encounter 11/10/2016 04/17/2017 Sprain of other specified pa rts of right shoulder girdle, subsequent encounter 11/10/2016 Umbilical hernia without obs truction and without gangrene 06/05/2016 06/11/2016 Chronic pain 11/09/2015 05/22/2016 Chronic right-sided low back pain with right-sided sciatica 10/25/2015 05/22/2016 Heel pain, bilateral 10/25/2015 017 Reactive depression 10/05/2015 04/25/19 17 Situational depression 09/17/201505/22 Strain of right shoulder 08/10/201507/2016 Cervical strain 08/10/2015 05/22/2016 Sprain of rhomboid 06/12/2015 7 Cervical myofascial strain 06/12/2015 0 05/22/2016 Shoulder strain 06/12/2015 04/17/2017 Onychomycosis due to dermatophyte 02/08/2013 04/24/2016 Hypogonadism male 04/25/2010 05/22/2016 Rotator cuff (capsule) sprain 09/25/2008 05/22/2016 Sprain and strain of unspeci fied site of shoulder and upper arm 06/22/2008 09/25/2008 documented as of this encounter (statuses as of 12/31/2022) [facility]04-12-2022 History of Past illness Narrative* Problem Noted Date Diagnosed Date Resolved Date Hypothyroidism, acquired 05/28/2021 Strain of other muscles, fas gume and tendons at shoulder and upper arm level, right arm, subsequent encounter 11/10/2016 04/17/2017 Sprain of other specified pa rts of right shoulder girdle, subsequent encounter 11/10/2016 Umbilical hernia without obs truction and without gangrene 06/05/2016 06/11/2016 Chronic pain 11/09/2015 05/22/2016 Chronic right-sided low back pain with right-sided sciatica 10/25/2015 05/22/2016 Heel pain, bilateral 10/25/2015 017 Reactive depression 10/05/2015 04/25/19 17 Situational depression 09/17/201505/22 Strain of right shoulder 08/10/201507/2016 Cervical strain 08/10/2015 05/22/2016 Sprain of rhomboid 06/12/2015 7 Cervical myofascial strain 06/12/2015 0 05/22/2016 Shoulder strain 06/12/2015 04/17/2017 Onychomycosis due to dermatophyte 02/08/2013 04/24/2016 Hypogonadism male 04/25/2010 05/22/2016 Rotator cuff (capsule) sprain 09/25/2008 05/22/2016 Sprain and strain of unspeci fied site of shoulder and upper arm 06/22/2008 09/25/2008 documented as of this encounter (statuses as of 12/31/2022) [facility]04-12-2022 History of Past illness Narrative* Problem Noted Date Diagnosed Date Resolved Date Hypothyroidism, acquired 05/28/2021 Strain of other muscles, fas gume and tendons at shoulder and upper arm level, right arm, subsequent encounter 11/10/2016 04/17/2017 Sprain of other specified pa rts of right shoulder girdle, subsequent encounter 11/10/2016 Umbilical hernia without obs truction and without gangrene 06/05/2016 06/11/2016 Chronic pain 11/09/2015 05/22/2016 Chronic right-sided low back pain with right-sided sciatica 10/25/2015 05/22/2016 Heel pain, bilateral 10/25/2015 017 Reactive depression 10/05/2015 04/25/19 17 Situational depression 09/17/201505/22 Strain of right shoulder 08/10/201507/2016 Cervical strain 08/10/2015 05/22/2016 Sprain of rhomboid 06/12/2015 7 Cervical myofascial strain 06/12/2015 0 05/22/2016 Shoulder strain 06/12/2015 04/17/2017 Onychomycosis due to dermatophyte 02/08/2013 04/24/2016 Hypogonadism male 04/25/2010 05/22/2016 Rotator cuff (capsule) sprain 09/25/2008 05/22/2016 Sprain and strain of unspeci fied site of shoulder and upper arm 06/22/2008 09/25/2008 documented as of this encounter (statuses as of 01/29/2023) [facility]04-12-2022 History of Past illness Narrative* Problem Noted Date Diagnosed Date Resolved Date Hypothyroidism, acquired 05/28/2021 Strain of other muscles, fas gume and tendons at shoulder and upper arm level, right arm, subsequent encounter 11/10/2016 04/17/2017 Sprain of other specified pa rts of right shoulder girdle, subsequent encounter 11/10/2016 Umbilical hernia without obs truction and without gangrene 06/05/2016 06/11/2016 Chronic pain 11/09/2015 05/22/2016 Chronic right-sided low back pain with right-sided sciatica 10/25/2015 05/22/2016 Heel pain, bilateral 10/25/2015 017 Reactive depression 10/05/2015 04/25/19 17 Situational depression 09/17/201505/22 Strain of right shoulder 08/10/201507/2016 Cervical strain 08/10/2015 05/22/2016 Sprain of rhomboid 06/12/2015 7 Cervical myofascial strain 06/12/2015 0 05/22/2016 Shoulder strain 06/12/2015 04/17/2017 Onychomycosis due to dermatophyte 02/08/2013 04/24/2016 Hypogonadism male 04/25/2010 05/22/2016 Rotator cuff (capsule) sprain 09/25/2008 05/22/2016 Sprain and strain of unspeci fied site of shoulder and upper arm 06/22/2008 09/25/2008 documented as of this encounter (statuses as of 03/31/2023) [facility]04-12-2022 History of Past illness Narrative* Problem Noted Date Diagnosed Date Resolved Date Hypothyroidism, acquired 05/28/2021 Strain of other muscles, fas gume and tendons at shoulder and upper arm level, right arm, subsequent encounter 11/10/2016 04/17/2017 Sprain of other specified pa rts of right shoulder girdle, subsequent encounter 11/10/2016 Umbilical hernia without obs truction and without gangrene 06/05/2016 06/11/2016 Chronic pain 11/09/2015 05/22/2016 Chronic right-sided low back pain with right-sided sciatica 10/25/2015 05/22/2016 Heel pain, bilateral 10/25/2015 017 Reactive depression 10/05/2015 04/25/19 17 Situational depression 09/17/201505/22 Strain of right shoulder 08/10/201507/2016 Cervical strain 08/10/2015 05/22/2016 Sprain of rhomboid 06/12/2015 7 Cervical myofascial strain 06/12/2015 0 05/22/2016 Shoulder strain 06/12/2015 04/17/2017 Onychomycosis due to dermatophyte 02/08/2013 04/24/2016 Hypogonadism male 04/25/2010 05/22/2016 Rotator cuff (capsule) sprain 09/25/2008 05/22/2016 Sprain and strain of unspeci fied site of shoulder and upper arm 06/22/2008 09/25/2008 documented as of this encounter (statuses as of 04/01/2023) [facility]04-12-2022 History of Past illness Narrative* Problem Noted Date Diagnosed Date Resolved Date Hypothyroidism, acquired 05/28/2021 08/ Strain of other muscles, fas gume and tendons at shoulder and upper arm level, right arm, subsequent encounter 11/10/2016 04/17/2017 Sprain of other specified pa rts of right shoulder girdle, subsequent encounter 11/10/2016 Umbilical hernia without obs truction and without gangrene 06/05/2016 06/11/2016 Chronic pain 11/09/2015 05/22/2016 Chronic right-sided low back pain with right-sided sciatica 10/25/2015 05/22/2016 Heel pain, bilateral 10/25/2015 017 Reactive depression 10/05/2015 04/25/19 17 Situational depression 09/17/201505/22 Strain of right shoulder 08/10/201507/2016 Cervical strain 08/10/2015 05/22/2016 Sprain of rhomboid 06/12/2015 7 Cervical myofascial strain 06/12/2015 0 05/22/2016 Shoulder strain 06/12/2015 04/17/2017 Onychomycosis due to dermatophyte 02/08/2013 04/24/2016 Hypogonadism male 04/25/2010 05/22/2016 Rotator cuff (capsule) sprain 09/25/2008 05/22/2016 Sprain and strain of unspeci fied site of shoulder and upper arm 06/22/2008 09/25/2008 documented as of this encounter (statuses as of 04/01/2023) [facility]04-12-2022 History of Past illness Narrative* Problem Noted Date Diagnosed Date Resolved Date Hypothyroidism, acquired 05/28/2021 Strain of other muscles, fas gume and tendons at shoulder and upper arm level, right arm, subsequent encounter 11/10/2016 04/17/2017 Sprain of other specified pa rts of right shoulder girdle, subsequent encounter 11/10/2016 Umbilical hernia without obs truction and without gangrene 06/05/2016 06/11/2016 Chronic pain 11/09/2015 05/22/2016 Chronic right-sided low back pain with right-sided sciatica 10/25/2015 05/22/2016 Heel pain, bilateral 10/25/2015 017 Reactive depression 10/05/2015 04/25/19 17 Situational depression 09/17/201505/22 Strain of right shoulder 08/10/201507/2016 Cervical strain 08/10/2015 05/22/2016 Sprain of rhomboid 06/12/2015 7 Cervical myofascial strain 06/12/2015 0 05/22/2016 Shoulder strain 06/12/2015 04/17/2017 Onychomycosis due to dermatophyte 02/08/2013 04/24/2016 Hypogonadism male 04/25/2010 05/22/2016 Rotator cuff (capsule) sprain 09/25/2008 05/22/2016 Sprain and strain of unspeci fied site of shoulder and upper arm 06/22/2008 09/25/2008 documented as of this encounter (statuses as of 04/01/2023) 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 10/25/2015 05/22/2016 Heel pain, bilateral 10/25/2015 05/22/2016 Reactive depression 10/05/2015 04/24/2016 Situational depression 09/17/2015 7 Strain of right shoulder 08/10/2015 017 Cervical strain 08/10/2015 05/22/2016 Sprain of rhomboid 06/12/2015 05/22/2016 Cervical myofascial strain 06/12/201505/22 Shoulder strain 06/12/2015 04/17/2017 Onychomycosis due to dermatophyte 02/08/2013 04/24/2016 Hypogonadism male 04/25/2010 05/22/2016 Rotator cuff (capsule) sprain 09/25/2008 Sprain and strain of unspeci fied site of shoulder and upper arm 06/22/2008 09/25/2008 documented as of this encounter (statuses as of 05/18/2021) 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 10/25/2015 05/22/2016 Heel pain, bilateral 10/25/2015 05/22/2016 Reactive depression 10/05/2015 04/24/2016 Situational depression 09/17/2015 7 Strain of right shoulder 08/10/2015 017 Cervical strain 08/10/2015 05/22/2016 Sprain of rhomboid 06/12/2015 05/22/2016 Cervical myofascial strain 06/12/201505/22 Shoulder strain 06/12/2015 04/17/2017 Onychomycosis due to dermatophyte 02/08/2013 04/24/2016 Hypogonadism male 04/25/2010 05/22/2016 Rotator cuff (capsule) sprain 09/25/2008 Sprain and strain of unspeci fied site of shoulder and upper arm 06/22/2008 09/25/2008 documented as of this encounter (statuses as of 05/28/2021) 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 10/25/2015 05/22/2016 Heel pain, bilateral 10/25/2015 05/22/2016 Reactive depression 10/05/2015 04/24/2016 Situational depression 09/17/2015 7 Strain of right shoulder 08/10/2015 017 Cervical strain 08/10/2015 05/22/2016 Sprain of rhomboid 06/12/2015 05/22/2016 Cervical myofascial strain 06/12/201505/22 Shoulder strain 06/12/2015 04/17/2017 Onychomycosis due to dermatophyte 02/08/2013 04/24/2016 Hypogonadism male 04/25/2010 05/22/2016 Rotator cuff (capsule) sprain 09/25/2008 Sprain and strain of unspeci fied site of shoulder and upper arm 06/22/2008 09/25/2008 documented as of this encounter (statuses as of 05/30/2021) 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 10/25/2015 05/22/2016 Heel pain, bilateral 10/25/2015 05/22/2016 Reactive depression 10/05/2015 04/24/2016 Situational depression 09/17/2015 7 Strain of right shoulder 08/10/2015 017 Cervical strain 08/10/2015 05/22/2016 Sprain of rhomboid 06/12/2015 05/22/2016 Cervical myofascial strain 06/12/201505/22 Shoulder strain 06/12/2015 04/17/2017 Onychomycosis due to dermatophyte 02/08/2013 04/24/2016 Hypogonadism male 04/25/2010 05/22/2016 Rotator cuff (capsule) sprain 09/25/2008 Sprain and strain of unspeci fied site of shoulder and upper arm 06/22/2008 09/25/2008 documented as of this encounter (statuses as of 05/31/2021) 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 10/25/2015 05/22/2016 Heel pain, bilateral 10/25/2015 05/22/2016 Reactive depression 10/05/2015 04/24/2016 Situational depression 09/17/2015 7 Strain of right shoulder 08/10/2015 017 Cervical strain 08/10/2015 05/22/2016 Sprain of rhomboid 06/12/2015 05/22/2016 Cervical myofascial strain 06/12/201505/22 Shoulder strain 06/12/2015 04/17/2017 Onychomycosis due to dermatophyte 02/08/2013 04/24/2016 Hypogonadism male 04/25/2010 05/22/2016 Rotator cuff (capsule) sprain 09/25/2008 Sprain and strain of unspeci fied site of shoulder and upper arm 06/22/2008 09/25/2008 documented as of this encounter (statuses as of 06/14/2021) 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 10/25/2015 05/22/2016 Heel pain, bilateral 10/25/2015 05/22/2016 Reactive depression 10/05/2015 04/24/2016 Situational depression 09/17/2015 7 Strain of right shoulder 08/10/2015 017 Cervical strain 08/10/2015 05/22/2016 Sprain of rhomboid 06/12/2015 05/22/2016 Cervical myofascial strain 06/12/201505/22 Shoulder strain 06/12/2015 04/17/2017 Onychomycosis due to dermatophyte 02/08/2013 04/24/2016 Hypogonadism male 04/25/2010 05/22/2016 Rotator cuff (capsule) sprain 09/25/2008 Sprain and strain of unspeci fied site of shoulder and upper arm 06/22/2008 09/25/2008 documented as of this encounter (statuses as of 06/18/2021) 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 10/25/2015 05/22/2016 Heel pain, bilateral 10/25/2015 05/22/2016 Reactive depression 10/05/2015 04/24/2016 Situational depression 09/17/2015 7 Strain of right shoulder 08/10/2015 017 Cervical strain 08/10/2015 05/22/2016 Sprain of rhomboid 06/12/2015 05/22/2016 Cervical myofascial strain 06/12/201505/22 Shoulder strain 06/12/2015 04/17/2017 Onychomycosis due to dermatophyte 02/08/2013 04/24/2016 Hypogonadism male 04/25/2010 05/22/2016 Rotator cuff (capsule) sprain 09/25/2008 Sprain and strain of unspeci fied site of shoulder and upper arm 06/22/2008 09/25/2008 documented as of this encounter (statuses as of 06/21/2021) 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 10/25/2015 05/22/2016 Heel pain, bilateral 10/25/2015 05/22/2016 Reactive depression 10/05/2015 04/24/2016 Situational depression 09/17/2015 7 Strain of right shoulder 08/10/2015 017 Cervical strain 08/10/2015 05/22/2016 Sprain of rhomboid 06/12/2015 05/22/2016 Cervical myofascial strain 06/12/201505/22 Shoulder strain 06/12/2015 04/17/2017 Onychomycosis due to dermatophyte 02/08/2013 04/24/2016 Hypogonadism male 04/25/2010 05/22/2016 Rotator cuff (capsule) sprain 09/25/2008 Sprain and strain of unspeci fied site of shoulder and upper arm 06/22/2008 09/25/2008 documented as of this encounter (statuses as of 07/24/2021) 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 10/25/2015 05/22/2016 Heel pain, bilateral 10/25/2015 05/22/2016 Reactive depression 10/05/2015 04/24/2016 Situational depression 09/17/2015 7 Strain of right shoulder 08/10/2015 017 Cervical strain 08/10/2015 05/22/2016 Sprain of rhomboid 06/12/2015 05/22/2016 Cervical myofascial strain 06/12/201505/22 Shoulder strain 06/12/2015 04/17/2017 Onychomycosis due to dermatophyte 02/08/2013 04/24/2016 Hypogonadism male 04/25/2010 05/22/2016 Rotator cuff (capsule) sprain 09/25/2008 Sprain and strain of unspeci fied site of shoulder and upper arm 06/22/2008 09/25/2008 documented as of this encounter (statuses as of 08/01/2021) 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 10/25/2015 05/22/2016 Heel pain, bilateral 10/25/2015 05/22/2016 Reactive depression 10/05/2015 04/24/2016 Situational depression 09/17/2015 7 Strain of right shoulder 08/10/2015 017 Cervical strain 08/10/2015 05/22/2016 Sprain of rhomboid 06/12/2015 05/22/2016 Cervical myofascial strain 06/12/201505/22 Shoulder strain 06/12/2015 04/17/2017 Onychomycosis due to dermatophyte 02/08/2013 04/24/2016 Hypogonadism male 04/25/2010 05/22/2016 Rotator cuff (capsule) sprain 09/25/2008 Sprain and strain of unspeci fied site of shoulder and upper arm 06/22/2008 09/25/2008 documented as of this encounter (statuses as of 08/05/2021) 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 10/25/2015 05/22/2016 Heel pain, bilateral 10/25/2015 05/22/2016 Reactive depression 10/05/2015 04/24/2016 Situational depression 09/17/2015 7 Strain of right shoulder 08/10/2015 017 Cervical strain 08/10/2015 05/22/2016 Sprain of rhomboid 06/12/2015 05/22/2016 Cervical myofascial strain 06/12/201505/22 Shoulder strain 06/12/2015 04/17/2017 Onychomycosis due to dermatophyte 02/08/2013 04/24/2016 Hypogonadism male 04/25/2010 05/22/2016 Rotator cuff (capsule) sprain 09/25/2008 Sprain and strain of unspeci fied site of shoulder and upper arm 06/22/2008 09/25/2008 documented as of this encounter (statuses as of 08/23/2021) 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 10/25/2015 05/22/2016 Heel pain, bilateral 10/25/2015 05/22/2016 Reactive depression 10/05/2015 04/24/2016 Situational depression 09/17/2015 7 Strain of right shoulder 08/10/2015 017 Cervical strain 08/10/2015 05/22/2016 Sprain of rhomboid 06/12/2015 05/22/2016 Cervical myofascial strain 06/12/201505/22 Shoulder strain 06/12/2015 04/17/2017 Onychomycosis due to dermatophyte 02/08/2013 04/24/2016 Hypogonadism male 04/25/2010 05/22/2016 Rotator cuff (capsule) sprain 09/25/2008 Sprain and strain of unspeci fied site of shoulder and upper arm 06/22/2008 09/25/2008 documented as of this encounter (statuses as of 09/02/2021) 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 10/25/2015 05/22/2016 Heel pain, bilateral 10/25/2015 05/22/2016 Reactive depression 10/05/2015 04/24/2016 Situational depression 09/17/2015 7 Strain of right shoulder 08/10/2015 017 Cervical strain 08/10/2015 05/22/2016 Sprain of rhomboid 06/12/2015 05/22/2016 Cervical myofascial strain 06/12/201505/22 Shoulder strain 06/12/2015 04/17/2017 Onychomycosis due to dermatophyte 02/08/2013 04/24/2016 Hypogonadism male 04/25/2010 05/22/2016 Rotator cuff (capsule) sprain 09/25/2008 Sprain and strain of unspeci fied site of shoulder and upper arm 06/22/2008 09/25/2008 documented as of this encounter (statuses as of 09/04/2021) 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 10/25/2015 05/22/2016 Heel pain, bilateral 10/25/2015 05/22/2016 Reactive depression 10/05/2015 04/24/2016 Situational depression 09/17/2015 7 Strain of right shoulder 08/10/2015 017 Cervical strain 08/10/2015 05/22/2016 Sprain of rhomboid 06/12/2015 05/22/2016 Cervical myofascial strain 06/12/201505/22 Shoulder strain 06/12/2015 04/17/2017 Onychomycosis due to dermatophyte 02/08/2013 04/24/2016 Hypogonadism male 04/25/2010 05/22/2016 Rotator cuff (capsule) sprain 09/25/2008 Sprain and strain of unspeci fied site of shoulder and upper arm 06/22/2008 09/25/2008 documented as of this encounter (statuses as of 09/09/2021) 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 10/25/2015 05/22/2016 Heel pain, bilateral 10/25/2015 05/22/2016 Reactive depression 10/05/2015 04/24/2016 Situational depression 09/17/2015 7 Strain of right shoulder 08/10/2015 017 Cervical strain 08/10/2015 05/22/2016 Sprain of rhomboid 06/12/2015 05/22/2016 Cervical myofascial strain 06/12/201505/22 Shoulder strain 06/12/2015 04/17/2017 Onychomycosis due to dermatophyte 02/08/2013 04/24/2016 Hypogonadism male 04/25/2010 05/22/2016 Rotator cuff (capsule) sprain 09/25/2008 Sprain and strain of unspeci fied site of shoulder and upper arm 06/22/2008 09/25/2008 documented as of this encounter (statuses as of 09/23/2021) 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 10/25/2015 05/22/2016 Heel pain, bilateral 10/25/2015 05/22/2016 Reactive depression 10/05/2015 04/24/2016 Situational depression 09/17/2015 7 Strain of right shoulder 08/10/2015 017 Cervical strain 08/10/2015 05/22/2016 Sprain of rhomboid 06/12/2015 05/22/2016 Cervical myofascial strain 06/12/201505/22 Shoulder strain 06/12/2015 04/17/2017 Onychomycosis due to dermatophyte 02/08/2013 04/24/2016 Hypogonadism male 04/25/2010 05/22/2016 Rotator cuff (capsule) sprain 09/25/2008 Sprain and strain of unspeci fied site of shoulder and upper arm 06/22/2008 09/25/2008 documented as of this encounter (statuses as of 09/24/2021) 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 10/25/2015 05/22/2016 Heel pain, bilateral 10/25/2015 05/22/2016 Reactive depression 10/05/2015 04/24/2016 Situational depression 09/17/2015 04 7 Strain of right shoulder 08/10/2015 017 Cervical strain 08/10/2015 05/22/2016 Sprain of rhomboid 06/12/2015 05/22/2016 Cervical myofascial strain 06/12/201505/22 Shoulder strain 06/12/2015 04/17/2017 Onychomycosis due to dermatophyte 02/08/2013 04/24/2016 Hypogonadism male 04/25/2010 05/22/2016 Rotator cuff (capsule) sprain 09/25/2008 Sprain and strain of unspeci fied site of shoulder and upper arm 06/22/2008 09/25/2008 documented as of this encounter (statuses as of 09/24/2021) 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 10/25/2015 05/22/2016 Heel pain, bilateral 10/25/2015 05/22/2016 Reactive depression 10/05/2015 04/24/2016 Situational depression 09/17/2015 7 Strain of right shoulder 08/10/2015 017 Cervical strain 08/10/2015 05/22/2016 Sprain of rhomboid 06/12/2015 05/22/2016 Cervical myofascial strain 06/12/201505/22 Shoulder strain 06/12/2015 04/17/2017 Onychomycosis due to dermatophyte 02/08/2013 04/24/2016 Hypogonadism male 04/25/2010 05/22/2016 Rotator cuff (capsule) sprain 09/25/2008 Sprain and strain of unspeci fied site of shoulder and upper arm 06/22/2008 09/25/2008 documented as of this encounter (statuses as of 10/02/2021) 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 10/25/2015 05/22/2016 Heel pain, bilateral 10/25/2015 05/22/2016 Reactive depression 10/05/2015 04/24/2016 Situational depression 09/17/2015 7 Strain of right shoulder 08/10/2015 017 Cervical strain 08/10/2015 05/22/2016 Sprain of rhomboid 06/12/2015 05/22/2016 Cervical myofascial strain 06/12/201505/22 Shoulder strain 06/12/2015 04/17/2017 Onychomycosis due to dermatophyte 02/08/2013 04/24/2016 Hypogonadism male 04/25/2010 05/22/2016 Rotator cuff (capsule) sprain 09/25/2008 Sprain and strain of unspeci fied site of shoulder and upper arm 06/22/2008 09/25/2008 documented as of this encounter (statuses as of 10/08/2021) 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 10/25/2015 05/22/2016 Heel pain, bilateral 10/25/2015 05/22/2016 Reactive depression 10/05/2015 04/24/2016 Situational depression 09/17/2015 7 Strain of right shoulder 08/10/2015 017 Cervical strain 08/10/2015 05/22/2016 Sprain of rhomboid 06/12/2015 05/22/2016 Cervical myofascial strain 06/12/201505/22 Shoulder strain 06/12/2015 04/17/2017 Onychomycosis due to dermatophyte 02/08/2013 04/24/2016 Hypogonadism male 04/25/2010 05/22/2016 Rotator cuff (capsule) sprain 09/25/2008 Sprain and strain of unspeci fied site of shoulder and upper arm 06/22/2008 09/25/2008 documented as of this encounter (statuses as of 10/08/2021) [facility] note* Diagnosis Hypothyroidism, acquired- Primary Unspecified hypothyroidism Elevated liver enzymes Other nonspecific abnormal serum enzyme levels documented in this encounter [facility] note* Diagnosis Chest pain, unspecified type documented in this encounter [facility] note* Diagnosis Bipolar 2 disorder (HCC)- Primary Other bipolar disorders JE (generalized anxiety disorder) Generalized anxiety disorder documented in this encounter [facility] note* Diagnosis Strain of neck muscle, initial encounter- Primary documented in this encounter [facility]* Diagnosis Chronic pain syndrome- Primary Osteoarthritis of both shoulders, unspecified osteoarthritis type Neck pain Cervicalgia Rotator cuff impingement syndrome, unspecified laterality documented in this encounter [facility]* Diagnosis Bipolar 2 disorder (HCC)- Primary Other bipolar disorders JE (generalized anxiety disorder) Generalized anxiety disorder documented in this encounter [facility] note* Diagnosis Chronic pain syndrome- Primary Cervicalgia Osteoarthritis of both shoulders, unspecified osteoarthritis type Rotator cuff syndrome, unspecified laterality Neck pain Cervicalgia Rotator cuff impingement syndrome, unspecified laterality Obesity, Class II, BMI 35-39.9 Obesity, unspecified documented in this encounter [facility] note* Diagnosis Essential hypertension- Primary Unspecified essential hypertension documented in this encounter [facility] note* Diagnosis Chronic pain syndrome- Primary Cervicalgia Rotator cuff impingement syndrome, unspecified laterality Osteoarthritis of both shoulders, unspecified osteoarthritis type Rotator cuff syndrome, unspecified laterality Neck pain Cervicalgia documented in this encounter [facility] note* Diagnosis Hypothyroidism, acquired Unspecified hypothyroidism documented in this encounter [facility] note* Diagnosis Chest pain, unspecified type- Primary Subclinical hypothyroidism Other specified acquired hypothyroidism GERD without esophagitis Esophageal reflux documented in this encounter [facility] note* Diagnosis Acute bilateral thoracic back pain- Primary COVID-19 documented in this encounter [facility] Work Phone: Evaluation note* Diagnosis High risk medications (not anticoagulants) long-term use- Primary Encounter for long-term (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 of other medications documented in this encounter [facility] note* Diagnosis Other acute pulmonary embolism without acute cor pulmonale (HCC)- Primary Essential hypertension, benign Chronic chest pain Chest pain, unspecified Lightheaded Dizziness and giddiness Bipolar affective disorder, remission status unspecified (HCC) GERD without esophagitis Esophageal reflux documented in this encounter [facility]* Diagnosis Constipation due to opioid therapy- Primary Chronic pain syndrome Rotator cuff impingement syndrome, unspecified laterality Osteoarthritis of both shoulders, unspecified osteoarthritis type Neck pain Cervicalgia documented in this encounter [facility] note* Diagnosis Chronic pain syndrome Rotator cuff impingement syndrome, unspecified laterality Osteoarthritis of both shoulders, unspecified osteoarthritis type Neck pain Cervicalgia documented in this encounter [facility] note* Diagnosis Rotator cuff impingement syndrome, unspecified laterality- Primary Osteoarthritis of both shoulders, unspecified osteoarthritis type Neck pain Cervicalgia Rotator cuff syndrome, unspecified laterality Cervicalgia High risk medications (not anticoagulants) long-term use Encounter for long-term (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 of other medications Constipation due to opioid therapy Chronic pain syndrome Osteoarthritis of both shoulders, unspecified osteoarthritis type Chronic pain syndrome documented in this encounter [facility] note* Diagnosis Hypocalcemia- Primary Osteoarthritis of both shoulders, unspecified osteoarthritis type Chronic pain syndrome documented in this encounter [facility] note* Diagnosis Elevated liver enzymes- Primary Other nonspecific abnormal serum enzyme levels Osteoarthritis of both shoulders, unspecified osteoarthritis type Chronic pain syndrome documented in this encounter [facility]* Diagnosis Rotator cuff impingement syndrome, unspecified laterality Osteoarthritis of both shoulders, unspecified osteoarthritis type Neck pain Cervicalgia Chronic pain syndrome Osteoarthritis of both shoulders, unspecified osteoarthritis type Chronic pain syndrome documented in this encounter [facility]* Diagnosis SOB (shortness of breath) Shortness of breath Osteoarthritis of both shoulders, unspecified osteoarthritis type Chronic pain syndrome documented in this encounter [facility] note* Diagnosis SOB (shortness of breath) Shortness of breath Osteoarthritis of both shoulders, unspecified osteoarthritis type Chronic pain syndrome documented in this encounter [facility]* Diagnosis Epigastric pain- Primary Abdominal pain, epigastric Internal hemorrhoids Internal hemorrhoids without mention of complication Rectal bleeding Hemorrhage of rectum and anus Nausea Nausea alone Osteoarthritis of both shoulders, unspecified osteoarthritis type Chronic pain syndrome documented in this encounter [facility]* Diagnosis Other cervical disc degeneration, unspecified cervical region- Primary Osteoarthritis of both shoulders, unspecified osteoarthritis type Chronic pain syndrome High risk medication use Encounter for long-term (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 of other medications Rotator cuff impingement syndrome, unspecified laterality Neck pain Cervicalgia Osteoarthritis of both shoulders, unspecified osteoarthritis type Chronic pain syndrome documented in this encounter [facility]* Diagnosis Liver lesion Other specified disorders of liver documented in this encounter [facility]* Diagnosis Elevated liver enzymes- Primary Other nonspecific abnormal serum enzyme levels documented in this encounter [facility] note* Diagnosis Essential hypertension- Primary Unspecified essential hypertension Aorta disorder (HCC) Unspecified disorders of arteries and arterioles Recurrent major depression in partial remission (HCC) Major depressive disorder, recurrent episode, in partial or unspecified remission High risk medications (not anticoagulants) long-term use Encounter for long-term (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 of other medications Subclinical hypothyroidism Other specified acquired hypothyroidism Rectal bleeding Hemorrhage of rectum and anus Elevated liver enzymes Other nonspecific abnormal serum enzyme levels Mild cognitive impairment with memory loss Mild cognitive impairment, so stated Cognitive impairment, mild, so stated Mild cognitive impairment, so stated Headache, unspecified headache type Enlarged thoracic aorta (HCC) Thoracic aortic ectasia documented in this encounter [facility]* Diagnosis Osteoarthritis of both shoulders, unspecified osteoarthritis type Chronic pain syndrome Rotator cuff impingement syndrome, unspecified laterality Neck pain Cervicalgia documented in this encounter [facility]* Diagnosis Mild cognitive impairment with memory loss- Primary Mild cognitive impairment, so stated 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 documented in this encounter [facility]* Diagnosis Bipolar 2 disorder (HCC)- Primary Other bipolar disorders JE (generalized anxiety disorder) Generalized anxiety disorder documented in this encounter [facility] note* Diagnosis Osteoarthritis of both shoulders, unspecified osteoarthritis type Chronic pain syndrome Rotator cuff impingement syndrome, unspecified laterality Neck pain Cervicalgia documented in this encounter [facility]* Diagnosis Essential hypertension- Primary Unspecified essential hypertension GERD without esophagitis Esophageal reflux Mild cognitive impairment with memory loss Mild cognitive impairment, so stated Other acute pulmonary embolism without acute cor pulmonale (HCC) [facility] this [facility] Diagnosis Memory loss- Primary Mild cognitive impairment with memory loss Mild cognitive impairment, so stated documented in this encounter [facility] note* Diagnosis High risk medication use- Primary Encounter for long-term (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 of other medications Osteoarthritis of both shoulders, unspecified osteoarthritis type Chronic pain syndrome Rotator cuff impingement syndrome, unspecified laterality Other cervical disc degeneration, unspecified cervical region [facility] Diagnosis Memory loss [facility] this [facility] Diagnosis Memory loss- Primary documented in this encounter [facility]* Diagnosis Anal bleeding- Primary Hemorrhage of rectum and anus Drug induced constipation History of colonic polyps Personal history of colonic polyps documented in this encounter [facility] Diagnosis Osteoarthritis of both shoulders, unspecified osteoarthritis type Chronic pain syndrome Rotator cuff impingement syndrome, unspecified laterality documented in this encounter [facility] note* Diagnosis Osteoarthritis of both shoulders, unspecified osteoarthritis type Chronic pain syndrome Rotator cuff impingement syndrome, unspecified laterality documented in this encounter [facility]* Diagnosis Aorta disorder (HCC)- Primary Unspecified disorders of arteries and arterioles Primary hypertension Unspecified essential hypertension Other forms of angina pectoris (HCC) [facility] this [facility] Diagnosis Rectal bleeding- Primary Hemorrhage of rectum and anus Pruritus ani documented in this encounter [facility] Diagnosis Chronic pain syndrome [facility] this [facility] Diagnosis High risk medication use- Primary Encounter for long-term (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 of other medications Cervicalgia Other cervical disc degeneration, unspecified cervical region Chronic pain syndrome Cervical radiculopathy Brachial neuritis or radiculitis nos Myofascial pain syndrome Mylagia and myositis, unspecified documented [facility] this [facility] Diagnosis Chronic pain syndrome documented in this [facility] Diagnosis Chronic pain syndrome documented in this [facility] Diagnosis Aorta disorder (HCC)- Primary Unspecified disorders of arteries and arterioles Essential hypertension, benign Subclinical hypothyroidism Other specified acquired hypothyroidism Hyperlipidemia, unspecified hyperlipidemia type [facility] this [facility] note* Diagnosis Mild cognitive impairment with memory loss Mild cognitive impairment, so stated Cognitive impairment, mild, so stated Mild cognitive impairment, so stated Headache, unspecified headache type [facility] Diagnosis Elevated liver enzymes Other nonspecific abnormal serum enzyme levels [facility] Diagnosis Chronic pain syndrome [facility] Diagnosis Chronic pain syndrome [facility] Diagnosis Other chronic pain- Primary shelter (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 of opiate analgesic Other cervical disc degeneration, unspecified cervical region Osteoarthritis of both shoulders, unspecified osteoarthritis type Myofascial pain syndrome Mylagia and myositis, unspecified Chronic pain syndrome documented in this encounter [facility] for referral (narrative)* Diagnostic Procedure Only (Routine) - Closed Specialty Diagnoses / Procedures Referred By Contac t Referred To Contact US IMAGING Diagnoses Chest pain, unspecified type Procedures US SCREENING FOR AAA (2017) US ABDOMINAL AORTA REAL TIME SCREEN STUDY AAA Lauren Steen APRN.PLUG SORTER [address] [place] [address] Us Imaging Referral ID Status Reason Start Date Expiration Date V isits Requested Visits Authorized [id number] Closed Auto-Generate d Referral 05/27/2021 06/26/2022 1 1 [facility] for referral (narrative)* Diagnostic Procedure Only (Routine) - Pending Review Specialty Diagnoses / Procedures Referred By Contac t Referred To Contact US IMAGING Diagnoses Elevated liver enzymes Procedures US ABD RT UPPER QUADRANT US ABDOMINAL REAL TIME W/IMAGE LIMITED Kevin Cary MD [address] [place] [address] Us Imaging Referral ID Status Reason Start Date Expiration Date Visits Requested Visits Authorized [id number] Pending Review Auto-Generat ed Referral 02/06/2023 1 1 [facility] for referral (narrative)* Diagnostic Procedure Only (Routine) - Pending Review Specialty Diagnoses / Procedures Referred By Contac t Referred To Contact XR IMAGING Diagnoses Other cervical disc degeneration, unspecified cervical region Procedures XR CERV OTHER 4V AP/LAT/FLX/EXT RADEX SPINE CERVICAL 4 OR 5 VIEWS Anna Foley, KARI.TWISTING FRAME CHANGER [address] [place] [address] Xr Imaging Referral ID Status Reason Start Date Expiration Date Visits Requested Visits Authorized [id number] Pending Review Auto-Generat ed Referral 04/28/2022 05/28/2023 1 1 [facility] for referral (narrative)* Outpatient Procedure (Routine) - Pending Review Specialty Diagnoses / Procedures Referred By Contac t Referred To Contact [facility] Diagnoses Anal bleeding Drug induced constipation Procedures COLONOSCOPY DIAGNOSTIC COLONOSCOPY FLX DX W/COLLJ SPEC WHEN PFRMD Gia Ventura PA-C [address] [place] [address] [facility] [address] [place] [address] Referral ID Status Reason Start Date Expiration Date Visits Requested Visits Authorized [id number] Pending Review Auto-Generat ed Referral 06/02/2022 06/03/2023 1 1 [facility] for referral (narrative)* Outpatient Procedure (Routine) - Pending Review Specialty Diagnoses / Procedures Referred By Contac t Referred To Contact [facility] Diagnoses Aorta disorder (HCC) Procedures ECG COMPLETE ECG ROUTINE ECG W/LEAST 12 LDS W/I&R Yonathan Barajas MD [address] [place] [address] [facility] [address] [address] Referral ID Status Reason Start Date Expiration Date Visits Requested Visits Authorized [id number] Pending Review Auto-Generat ed Referral 06/30/2022 06/30/2023 1 1 [facility] for referral (narrative)* Outpatient Procedure (Routine) - Pending Review Specialty Diagnoses / Procedures Referred By Contac t Referred To Contact [facility] Diagnoses Aorta disorder (HCC) Procedures ECHO ECHO TTHRC R-T 2D W/WOM-MODE COMPL SPEC&COLR D Lauren Steen, KARI.PLUG SORTER [address] [place] [address] [facility] [address] [address] Referral ID Status Reason Start Date Expiration Date Visits Requested Visits Authorized [id number] Pending Review Auto-Generat ed Referral 12/03/2023 1 1 [facility] for referral (narrative)* Diagnostic Procedure Only (Routine) - Closed Specialty Diagnoses / Procedures Referred By Contac t Referred To Contact US IMAGING Diagnoses Elevated liver enzymes Procedures US ABD RT UPPER QUADRANT US ABDOMINAL REAL TIME W/IMAGE LIMITED Kevin Cary MD [address] [place] [address] Us [id number] Referral ID Status Reason Start Date Expiration Date V isits Requested Visits Authorized [id number] Closed Auto-Generate d Referral 01/07/2022 02/06/2023 1 1 [facility] for visit Narrative* Diagnostic Procedure Only (Routine) - Closed Specialty Diagnoses / Procedures Referred By Contac t Referred To Contact US IMAGING Diagnoses Chest pain, unspecified type Procedures US SCREENING FOR AAA (2017) US ABDOMINAL AORTA REAL TIME SCREEN STUDY AAA Lauren Steen APRN.PLUG SORTER [address] [place] [address] Us Imaging Referral ID Status Reason Start Date Expiration Date V isits Requested Visits Authorized [id number] Closed Auto-Generate d Referral 05/27/2021 06/26/2022 1 1 [facility] for visit Narrative* Diagnostic Procedure Only (Routine) - Closed Specialty Diagnoses / Procedures Referred By Contac t Referred To Contact [facility] Diagnoses ACS (acute coronary syndrome) (HCC) Chest pain, unspecified type Procedures NM CARDIAC PERF STRESS/PHARM MYOCARDIAL SPECT MULTIPLE STUDIES Lauren Steen APRN.PLUG SORTER [address] [place] [address] [facility] [address] [place], [place] [id number] Referral ID Status Reason Start Date Expiration Date Visits Re quested Visits Authorized [id number] Closed 09/23/2021 10/23/[address] 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 Advance Directive(s) 06/27/2020 7:18 AM Advance Directive(s) 01/09/2020 8:46 AM Advance Directive(s) 05/25/2018 10:46 AM Advance Directive(s) 10/13/2016 5:55 AM Advance Directive(s) 05/30/2016 12:01 PM Documents on File Type Date Recorded 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 Advance Directive(s) 05/28/2021 6:35 PM Advance Directive(s) 06/27/2020 7:18 AM Advance Directive(s) 01/09/2020 8:46 AM Advance Directive(s) 05/25/2018 10:46 AM Advance Directive(s) 10/13/2016 5:55 AM Advance Directive(s) 05/30/2016 12:01 PM Documents on File Type Date Recorded 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 Advance Directive(s) 05/28/2021 6:35 PM Advance Directive(s) 06/27/2020 7:18 AM Advance Directive(s) 01/09/2020 8:46 AM Advance Directive(s) 05/25/2018 10:46 AM Advance Directive(s) 10/13/2016 5:55 AM Advance Directive(s) 05/30/2016 12:01 PM Latest Code Status on File Code Status Date Activated Date Inactivated Comments Full Code 10/22/2021 7:37 AM Reason for Referral Specialty Diagnoses / Procedures Referred By Samia winchester Referred To Contact [facility] Diagnoses Chronic pain syndrome Cervicalgia Procedures CONSULT TO PHYSICAL THERAPY PHYSICAL THERAPY EVALUATION HIGH COMPLEX 45 MINS Lisa Heller APRN.PLUG SORTER [address] [place] [address] [facility] [address] [address] Referral ID Status Reason Start Date Expiration Date Visits Requested Visits Authorized [id number] Pending Review Auto-Generat ed Referral 09/09/2021 09/09/2022 1 1 Specialty Diagnoses / Procedures Referred By Contac t Referred To Contact Cardiology Diagnoses Chronic chest pain Procedures CONSULT TO CARDIOLOGY OFFICE/OUTPATIENT [facility] 60-74 MINUTES Kevin Cary MD [address] [place] [address] Referral ID Status Reason Start Date Expiration Date Visits Requested Visits Authorized [id number] Pending Review PCP Requested Referral 11/04/2021 11/04/2022 1 1 Specialty Diagnoses / Procedures Referred By Contac t Referred To Contact Diagnoses Constipation due to opioid therapy Lisa Heller APRN.[facility] [address] [place] [address] Referral ID Status Reason Start Date Expiration Date Visits Re quested Visits Authorized [id number] Denied 1 1 Specialty Diagnoses / Procedures Referred By Contac t Referred To Contact MR IMAGING Diagnoses Liver lesion Procedures MRI LIVER WO/W IVCON MRI ABDOMEN W/O & [place] [address] [place] [id number] Mr Imaging Referral ID Status Reason Start Date Expiration Date V isits Requested Visits Authorized [id number] Closed Auto-Generate d Referral 02/05/2022 03/07/2022 1 1 Specialty Diagnoses / Procedures Referred By Contac t Referred To Contact Cardiology Diagnoses Aorta disorder (HCC) Procedures CONSULT TO CARDIOLOGY OFFICE/OUTPATIENT [facility] 60-74 MINUTES Kevin Cary MD [address] [place] [address] Referral ID Status Reason Start Date Expiration Date Visits Requested Visits Authorized [id number] Pending Review PCP Requested Referral 03/03/2022 03/03/2023 1 1 Specialty Diagnoses / Procedures Referred By Contac t Referred To Contact MR IMAGING Diagnoses Mild cognitive impairment with memory loss Cognitive impairment, mild, so stated Headache, unspecified headache type Procedures MRI BRAIN WO IVCON MRI BRAIN BRAIN STEM W/O CONTRAST MATERIAL Kevin Cary MD [address] [place] [address] Mr Imaging Referral ID Status Reason Start Date Expiration Date Visits Requested Visits Authorized [id number] Pending Review Auto-Generat ed Referral 03/03/2022 04/02/2023 1 1 Specialty Diagnoses / Procedures Referred By Contac t Referred To Contact Neurology Diagnoses Cavernous hemangioma of brain (HCC) Mild cognitive impairment with memory loss Procedures CONSULT TO NEUROLOGY OFFICE/OUTPATIENT [facility] 60-74 MINUTES Kevin Cary MD [address] [place] [address] Referral ID Status Reason Start Date Expiration Date Visits Requested Visits Authorized [id number] Pending Review PCP Requested Referral 03/28/2022 03/28/2023 1 1 Specialty Diagnoses / Procedures Referred By Contac t Referred To Contact General Surgery Diagnoses GERD without esophagitis Procedures CONSULT TO GENERAL SURGERY OFFICE/OUTPATIENT [facility] 60-74 MINUTES Kevin Cary MD [address] [place] [address] Referral ID Status Reason Start Date Expiration Date Visits Requested Visits Authorized [id number] Pending Review PCP Requested Referral 04/16/2022 04/16/2023 1 1 Specialty Diagnoses / Procedures Referred By Contac t Referred To Contact [facility] Diagnoses Memory loss Procedures CONSULT TO SPEECH THERAPY OFFICE/OUTPATIENT [facility] 60-74 MINUTES Remington Saucedo MD [address] [place], [place] [id number] [facility] [address] [address] Referral ID Status Reason Start Date Expiration Date Visits Requested Visits Authorized [id number] Pending Review Auto-Generat ed Referral 04/15/2022 04/15/2023 1 1 Specialty Diagnoses / Procedures Referred By Contac t Referred To Contact [facility] Diagnoses Mild cognitive impairment with memory loss Procedures EPIL EEG ROUTINE ELECTROENCEPHALOGRAM REC COMA/SLEEP ONLY Remington Saucedo MD [address] [place] [address] [facility] [address] [place] [address] Referral ID Status Reason Start Date Expiration Date Visits Requested Visits Authorized [id number] Authorized Auto-Generat ed Referral 04/15/2022 04/15/2023 1 1 Specialty Diagnoses / Procedures Referred By Contac t Referred To Contact [facility] Diagnoses Memory loss Procedures SPEECH REHAB FOLLOW UP ORDER TX SPEECH LANG VOICE COMMJ &/AUDITORY PROC IND Speech [facility] [address] [place] [address] [address] Referral ID Status Reason Start Date Expiration Date Visits Requested Visits Authorized [id number] Pending Review PCP Requested Referral Auto-Generate d Referral 05/06/2022 08/04/2022 1 1 Specialty Diagnoses / Procedures Referred By Contac t Referred To Contact [facility] Diagnoses Cervicalgia Other cervical disc degeneration, unspecified cervical region Chronic pain syndrome Cervical radiculopathy Myofascial pain syndrome Procedures CONSULT TO PHYSICAL THERAPY PHYSICAL THERAPY EVALUATION HIGH COMPLEX 45 MINS Allie Ceballos, DO [address] [place] [address] [address] Referral ID Status Reason Start Date Expiration Date Visits Requested Visits Authorized [id number] Pending Review Auto-Generat ed Referral 11/10/2022 11/10/2023 1 1 Specialty Diagnoses / Procedures Referred By Contac t Referred To Contact MR IMAGING Diagnoses Mild cognitive impairment with memory loss Cognitive impairment, mild, so stated Headache, unspecified headache type Procedures MRI BRAIN WO IVCON MRI BRAIN BRAIN STEM W/O CONTRAST MATERIAL Kevin Cary MD [address] [place] [address] [place] [address] Referral ID Status Reason Start Date Expiration Date V isits Requested Visits Authorized [id number] Closed Auto-Generate d Referral 03/03/2022 04/02/2023 1 1 Health Concerns Infection Onset Date Last Indicated Resolved Time COVID-19 Confirmed 10/22/2021 10/22/2021 Infection Onset Date Last Indicated Resolved Time COVID-19 Rule-Out 10/22/2021 10/22/2021 10/22/2021 1:20 AM EDT COVID-19 Confirmed 10/22/2021 10/22/2021 Infection Onset Date Last Indicated Resolved Time COVID-19 Confirmed 10/22/2021 10/22/2021 Additional Source Comments (unrecognized sect ion and content) No Status Records FoundNo Status Records FoundNo Status Records FoundNo Status Records FoundNo Status Records FoundNo Status Records FoundNo Status Records FoundNo Status Records FoundNo Status Records Found INFORMATION SOURCE (unrecogn ized section and content) DATE CREATED AUTHOR AUTHOR'S ORGANIZ ATION 07/11/2021 [facility] DATE CREATED AUTHOR AUTHOR'S ORGANIZ ATION 11/16/2021 [facility] DATE CREATED AUTHOR AUTHOR'S ORGANIZ ATION 11/16/2021 [facility] DATE CREATED AUTHOR AUTHOR'S ORGANIZ ATION 11/16/2021 [facility] DATE CREATED AUTHOR AUTHOR'S ORGANIZ ATION 02/08/2022 [facility] DATE CREATED AUTHOR AUTHOR'S ORGANIZ ATION 07/26/2022 [facility] DATE CREATED AUTHOR AUTHOR'S ORGANIZ ATION 12/08/2022 [facility] DATE CREATED AUTHOR AUTHOR'S ORGANIZ ATION 04/02/[address] [facility] Source Comments (unrecognize d section and content) In the event this informatio n is protected by the Federal Confidentiality of Alcohol and Drug Abuse Patient Records regulations: The Federal rules restrict any use of the information to criminally investigate or prosecute any alcohol or drug abuse patient.[facility] the event this information is protected by the Federal Confidentiality of Alcohol and Drug Abuse Patient Records regulations: The Federal rules restrict any use of the information to criminally investigate or prosecute any alcohol or drug abuse patient.[facility] the event this information is protected by the Federal Confidentiality of Alcohol and Drug Abuse Patient Records regulations: The Federal rules restrict any use of the information to criminally investigate or prosecute any alcohol or drug abuse patient.[facility] the event this information is protected by the Federal Confidentiality of Alcohol and Drug Abuse Patient Records regulations: The Federal rules restrict any use of the information to criminally investigate or prosecute any alcohol or drug abuse patient.[facility] the event this information is protected by the Federal Confidentiality of Alcohol and Drug Abuse Patient Records regulations: The Federal rules restrict any use of the information to criminally investigate or prosecute any alcohol or drug abuse patient.[facility] the event this information is protected by the Federal Confidentiality of Alcohol and Drug Abuse Patient Records regulations: The Federal rules restrict any use of the information to criminally investigate or prosecute any alcohol or drug abuse patient.[facility] the event this information is protected by the Federal Confidentiality of Alcohol and Drug Abuse Patient Records regulations: The Federal rules restrict any use of the information to criminally investigate or prosecute any alcohol or drug abuse patient.[facility] the event this information is protected by the Federal Confidentiality of Alcohol and Drug Abuse Patient Records regulations: The Federal rules restrict any use of the information to criminally investigate or prosecute any alcohol or drug abuse patient.[facility] the event this information is protected by the Federal Confidentiality of Alcohol and Drug Abuse Patient Records regulations: The Federal rules restrict any use of the information to criminally investigate or prosecute any alcohol or drug abuse patient.[facility] the event this information is protected by the Federal Confidentiality of Alcohol and Drug Abuse Patient Records regulations: The Federal rules restrict any use of the information to criminally investigate or prosecute any alcohol or drug abuse patient.[facility] the event this information is protected by the Federal Confidentiality of Alcohol and Drug Abuse Patient Records regulations: The Federal rules restrict any use of the information to criminally investigate or prosecute any alcohol or drug abuse patient.[facility] the event this information is protected by the Federal Confidentiality of Alcohol and Drug Abuse Patient Records regulations: The Federal rules restrict any use of the information to criminally investigate or prosecute any alcohol or drug abuse patient.[facility] the event this information is protected by the Federal Confidentiality of Alcohol and Drug Abuse Patient Records regulations: The Federal rules restrict any use of the information to criminally investigate or prosecute any alcohol or drug abuse patient.[facility] the event this information is protected by the Federal Confidentiality of Alcohol and Drug Abuse Patient Records regulations: The Federal rules restrict any use of the information to criminally investigate or prosecute any alcohol or drug abuse patient.[facility] the event this information is protected by the Federal Confidentiality of Alcohol and Drug Abuse Patient Records regulations: The Federal rules restrict any use of the information to criminally investigate or prosecute any alcohol or drug abuse patient.[facility] the event this information is protected by the Federal Confidentiality of Alcohol and Drug Abuse Patient Records regulations: The Federal rules restrict any use of the information to criminally investigate or prosecute any alcohol or drug abuse patient.[facility] the event this information is protected by the Federal Confidentiality of Alcohol and Drug Abuse Patient Records regulations: The Federal rules restrict any use of the information to criminally investigate or prosecute any alcohol or drug abuse patient.[facility] the event this information is protected by the Federal Confidentiality of Alcohol and Drug Abuse Patient Records regulations: The Federal rules restrict any use of the information to criminally investigate or prosecute any alcohol or drug abuse patient.[facility] the event this information is protected by the Federal Confidentiality of Alcohol and Drug Abuse Patient Records regulations: The Federal rules restrict any use of the information to criminally investigate or prosecute any alcohol or drug abuse patient.[facility] the event this information is protected by the Federal Confidentiality of Alcohol and Drug Abuse Patient Records regulations: The Federal rules restrict any use of the information to criminally investigate or prosecute any alcohol or drug abuse patient.[facility] the event this information is protected by the Federal Confidentiality of Alcohol and Drug Abuse Patient Records regulations: The Federal rules restrict any use of the information to criminally investigate or prosecute any alcohol or drug abuse patient.[facility] the event this information is protected by the Federal Confidentiality of Alcohol and Drug Abuse Patient Records regulations: The Federal rules restrict any use of the information to criminally investigate or prosecute any alcohol or drug abuse patient.[facility] the event this information is protected by the Federal Confidentiality of Alcohol and Drug Abuse Patient Records regulations: The Federal rules restrict any use of the information to criminally investigate or prosecute any alcohol or drug abuse patient.[facility] the event this information is protected by the Federal Confidentiality of Alcohol and Drug Abuse Patient Records regulations: The Federal rules restrict any use of the information to criminally investigate or prosecute any alcohol or drug abuse patient.[facility] the event this information is protected by the Federal Confidentiality of Alcohol and Drug Abuse Patient Records regulations: The Federal rules restrict any use of the information to criminally investigate or prosecute any alcohol or drug abuse patient.[facility] the event this information is protected by the Federal Confidentiality of Alcohol and Drug Abuse Patient Records regulations: The Federal rules restrict any use of the information to criminally investigate or prosecute any alcohol or drug abuse patient.[facility] the event this information is protected by the Federal Confidentiality of Alcohol and Drug Abuse Patient Records regulations: The Federal rules restrict any use of the information to criminally investigate or prosecute any alcohol or drug abuse patient.[facility]In the event this information is protected by the Federal Confidentiality of Alcohol and Drug Abuse Patient Records regulations: The Federal rules restrict any use of the information to criminally investigate or prosecute any alcohol or drug abuse patient.[facility]In the event this information is protected by the Federal Confidentiality of Alcohol and Drug Abuse Patient Records regulations: The Federal rules restrict any use of the information to criminally investigate or prosecute any alcohol or drug abuse patient.[facility] the event this information is protected by the Federal Confidentiality of Alcohol and Drug Abuse Patient Records regulations: The Federal rules restrict any use of the information to criminally investigate or prosecute any alcohol or drug abuse patient.[facility] CampusIn the event this information is protected by the Federal Confidentiality of Alcohol and Drug Abuse Patient Records regulations: The Federal rules restrict any use of the information to criminally investigate or prosecute any alcohol or drug abuse patient.[facility] CampusIn the event this information is protected by the Federal Confidentiality of Alcohol and Drug Abuse Patient Records regulations: The Federal rules restrict any use of the information to criminally investigate or prosecute any alcohol or drug abuse patient.[facility] CampusIn the event this information is protected by the Federal Confidentiality of Alcohol and Drug Abuse Patient Records regulations: The Federal rules restrict any use of the information to criminally investigate or prosecute any alcohol or drug abuse patient.[facility] CampusIn the event this information is protected by the Federal Confidentiality of Alcohol and Drug Abuse Patient Records regulations: The Federal rules restrict any use of the information to criminally investigate or prosecute any alcohol or drug abuse patient.[facility] CampusIn the event this information is protected by the Federal Confidentiality of Alcohol and Drug Abuse Patient Records regulations: The Federal rules restrict any use of the information to criminally investigate or prosecute any alcohol or drug abuse patient.[facility] [place] CampusIn the event this information is protected by the Federal Confidentiality of Alcohol and Drug Abuse Patient Records regulations: The Federal rules restrict any use of the information to criminally investigate or prosecute any alcohol or drug abuse patient.[facility] [place] CampusIn the event this information is protected by the Federal Confidentiality of Alcohol and Drug Abuse Patient Records regulations: The Federal rules restrict any use of the information to criminally investigate or prosecute any alcohol or drug abuse patient.[facility] [place] CampusIn the event this information is protected by the Federal Confidentiality of Alcohol and Drug Abuse Patient Records regulations: The Federal rules restrict any use of the information to criminally investigate or prosecute any alcohol or drug abuse patient.[facility] [place] CampusIn the event this information is protected by the Federal Confidentiality of Alcohol and Drug Abuse Patient Records regulations: The Federal rules restrict any use of the information to criminally investigate or prosecute any alcohol or drug abuse patient.[facility] [place] CampusIn the event this information is protected by the Federal Confidentiality of Alcohol and Drug Abuse Patient Records regulations: The Federal rules restrict any use of the information to criminally investigate or prosecute any alcohol or drug abuse patient.[facility] [place] CampusIn the event this information is protected by the Federal Confidentiality of Alcohol and Drug Abuse Patient Records regulations: The Federal rules restrict any use of the information to criminally investigate or prosecute any alcohol or drug abuse patient.[facility] [place] CampusIn the event this information is protected by the Federal Confidentiality of Alcohol and Drug Abuse Patient Records regulations: The Federal rules restrict any use of the information to criminally investigate or prosecute any alcohol or drug abuse patient.[facility] [place] CampusIn the event this information is protected by the Federal Confidentiality of Alcohol and Drug Abuse Patient Records regulations: The Federal rules restrict any use of the information to criminally investigate or prosecute any alcohol or drug abuse patient.[facility] [place] CampusIn the event this information is protected by the Federal Confidentiality of Alcohol and Drug Abuse Patient Records regulations: The Federal rules restrict any use of the information to criminally investigate or prosecute any alcohol or drug abuse patient.[facility] [place] CampusIn the event this information is protected by the Federal Confidentiality of Alcohol and Drug Abuse Patient Records regulations: The Federal rules restrict any use of the information to criminally investigate or prosecute any alcohol or drug abuse patient.[facility] [place] CampusIn the event this information is protected by the Federal Confidentiality of Alcohol and Drug Abuse Patient Records regulations: The Federal rules restrict any use of the information to criminally investigate or prosecute any alcohol or drug abuse patient.[facility] [place] CampusIn the event this information is protected by the Federal Confidentiality of Alcohol and Drug Abuse Patient Records regulations: The Federal rules restrict any use of the information to criminally investigate or prosecute any alcohol or drug abuse patient.[facility] [place] CampusIn the event this information is protected by the Federal Confidentiality of Alcohol and Drug Abuse Patient Records regulations: The Federal rules restrict any use of the information to criminally investigate or prosecute any alcohol or drug abuse patient.[facility] [place] CampusIn the event this information is protected by the Federal Confidentiality of Alcohol and Drug Abuse Patient Records regulations: The Federal rules restrict any use of the information to criminally investigate or prosecute any alcohol or drug abuse patient.[facility] [place] CampusIn the event this information is protected by the Federal Confidentiality of Alcohol and Drug Abuse Patient Records regulations: The Federal rules restrict any use of the information to criminally investigate or prosecute any alcohol or drug abuse patient.[facility] [place] CampusIn the event this information is protected by the Federal Confidentiality of Alcohol and Drug Abuse Patient Records regulations: The Federal rules restrict any use of the information to criminally investigate or prosecute any alcohol or drug abuse patient.[facility] [place] CampusIn the event this information is protected by the Federal Confidentiality of Alcohol and Drug Abuse Patient Records regulations: The Federal rules restrict any use of the information to criminally investigate or prosecute any alcohol or drug abuse patient.[facility] [place] CampusIn the event this information is protected by the Federal Confidentiality of Alcohol and Drug Abuse Patient Records regulations: The Federal rules restrict any use of the information to criminally investigate or prosecute any alcohol or drug abuse patient.[facility] [place] CampusIn the event this information is protected by the Federal Confidentiality of Alcohol and Drug Abuse Patient Records regulations: The Federal rules restrict any use of the information to criminally investigate or prosecute any alcohol or drug abuse patient.[facility] [place] CampusIn the event this information is protected by the Federal Confidentiality of Alcohol and Drug Abuse Patient Records regulations: The Federal rules restrict any use of the information to criminally investigate or prosecute any alcohol or drug abuse patient.[facility] [place] CampusIn the event this information is protected by the Federal Confidentiality of Alcohol and Drug Abuse Patient Records regulations: The Federal rules restrict any use of the information to criminally investigate or prosecute any alcohol or drug abuse patient.[facility] [place] CampusIn the event this information is protected by the Federal Confidentiality of Alcohol and Drug Abuse Patient Records regulations: The Federal rules restrict any use of the information to criminally investigate or prosecute any alcohol or drug abuse patient.[facility] [place] CampusIn the event this information is protected by the Federal Confidentiality of Alcohol and Drug Abuse Patient Records regulations: The Federal rules restrict any use of the information to criminally investigate or prosecute any alcohol or drug abuse patient.[facility] [place] CampusIn the event this information is protected by the Federal Confidentiality of Alcohol and Drug Abuse Patient Records regulations: The Federal rules restrict any use of the information to criminally investigate or prosecute any alcohol or drug abuse patient.[facility] [place] CampusIn the event this information is protected by the Federal Confidentiality of Alcohol and Drug Abuse Patient Records regulations: The Federal rules restrict any use of the information to criminally investigate or prosecute any alcohol or drug abuse patient.[facility] [place] CampusIn the event this information is protected by the Federal Confidentiality of Alcohol and Drug Abuse Patient Records regulations: The Federal rules restrict any use of the information to criminally investigate or prosecute any alcohol or drug abuse patient.[facility] [place] CampusIn the event this information is protected by the Federal Confidentiality of Alcohol and Drug Abuse Patient Records regulations: The Federal rules restrict any use of the information to criminally investigate or prosecute any alcohol or drug abuse patient.[facility] [place] CampusIn the event this information is protected by the Federal Confidentiality of Alcohol and Drug Abuse Patient Records regulations: The Federal rules restrict any use of the information to criminally investigate or prosecute any alcohol or drug abuse patient.[facility] [place] CampusIn the event this information is protected by the Federal Confidentiality of Alcohol and Drug Abuse Patient Records regulations: The Federal rules restrict any use of the information to criminally investigate or prosecute any alcohol or drug abuse patient.[facility] [place] CampusIn the event this information is protected by the Federal Confidentiality of Alcohol and Drug Abuse Patient Records regulations: The Federal rules restrict any use of the information to criminally investigate or prosecute any alcohol or drug abuse patient.[facility] [place] CampusIn the event this information is protected by the Federal Confidentiality of Alcohol and Drug Abuse Patient Records regulations: The Federal rules restrict any use of the information to criminally investigate or prosecute any alcohol or drug abuse patient.[facility] [place] CampusIn the event this information is protected by the Federal Confidentiality of Alcohol and Drug Abuse Patient Records regulations: The Federal rules restrict any use of the information to criminally investigate or prosecute any alcohol or drug abuse patient.[facility] [place] CampusIn the event this information is protected by the Federal Confidentiality of Alcohol and Drug Abuse Patient Records regulations: The Federal rules restrict any use of the information to criminally investigate or prosecute any alcohol or drug abuse patient.[facility] [place] CampusIn the event this information is protected by the Federal Confidentiality of Alcohol and Drug Abuse Patient Records regulations: The Federal rules restrict any use of the information to criminally investigate or prosecute any alcohol or drug abuse patient.[facility] [place] CampusIn the event this information is protected by the Federal Confidentiality of Alcohol and Drug Abuse Patient Records regulations: The Federal rules restrict any use of the information to criminally investigate or prosecute any alcohol or drug abuse patient.[facility] [place] CampusIn the event this information is protected by the Federal Confidentiality of Alcohol and Drug Abuse Patient Records regulations: The Federal rules restrict any use of the information to criminally investigate or prosecute any alcohol or drug abuse patient.[facility] [place] CampusIn the event this information is protected by the Federal Confidentiality of Alcohol and Drug Abuse Patient Records regulations: The Federal rules restrict any use of the information to criminally investigate or prosecute any alcohol or drug abuse patient.[facility] [place] CampusIn the event this information is protected by the Federal Confidentiality of Alcohol and Drug Abuse Patient Records regulations: The Federal rules restrict any use of the information to criminally investigate or prosecute any alcohol or drug abuse patient.[facility] [place] CampusIn the event this information is protected by the Federal Confidentiality of Alcohol and Drug Abuse Patient Records regulations: The Federal rules restrict any use of the information to criminally investigate or prosecute any alcohol or drug abuse patient.[facility] [place] CampusIn the event this information is protected by the Federal Confidentiality of Alcohol and Drug Abuse Patient Records regulations: The Federal rules restrict any use of the information to criminally investigate or prosecute any alcohol or drug abuse patient.[facility] [facility] Care Teams (unrecognized sec tion and content) Insole Rasper Relationship Specialty Start Date End Date Kevin Cary MD [address] [place] [address] PCP - General Family Practice 11/12/11 Insole Rasper Relationship Specialty Start Date End Date Kevin Cary MD [address] [place] [address] PCP - General Family Practice 11/12/11 Insole Rasper Relationship Specialty Start Date End Date Kevin Cary MD [address] [place] [address] PCP - General Family Practice 11/12/11 Insole Rasper Relationship Specialty Start Date End Date Kevin Cary MD [address] [place] [address] PCP - General Family Practice 11/12/11 Insole Rasper Relationship Specialty Start Date End Date Kevin Cary MD [address] [place] [address] PCP - General Family Practice 11/12/11 Insole Rasper Relationship Specialty Start Date End Date Kevin Cary MD [address] [place] [address] PCP - General Family Practice 11/12/11 Insole Rasper Relationship Specialty Start Date End Date Kevin Cary MD [address] [place] [address] PCP - General Family Practice 11/12/11 Insole Rasper Relationship Specialty Start Date End Date Kevin Cary MD [address] [place] [address] PCP - General Family Practice 11/12/11 Insole Rasper Relationship Specialty Start Date End Date Kevin Cary MD [address] [facility] [place] [address] PCP - General Family Practice 11/12/11 Insole Rasper Relationship Specialty Start Date End Date Kevin Cary MD [address] [facility] [place] [address] PCP - General Family Practice 11/12/11 Insole Rasper Relationship Specialty Start Date End Date Kevin Cary MD [address] [place] [address] PCP - General Family Practice 11/12/11 Insole Rasper Relationship Specialty Start Date End Date Kevin Cary MD [address] [place] [address] PCP - General Family Practice 11/12/11 Insole Rasper Relationship Specialty Start Date End Date Kevin Cary MD [address] [place] [address] PCP - General Family Practice 11/12/11 Insole Rasper Relationship Specialty Start Date End Date Kevin Cary MD [address] [place] [address] PCP - General Family Practice 11/12/11 Insole Rasper Relationship Specialty Start Date End Date Kevin Cary MD [address] [place] [address] PCP - General Family Practice 11/12/11 Insole Rasper Relationship Specialty Start Date End Date Kevin Cary MD [address] [place] [address] PCP - General Family Practice 11/12/11 Insole Rasper Relationship Specialty Start Date End Date Kevin Cary MD [address] [facility] [place] [address] PCP - General Family Medicine 01/27/19 Insole Rasper Relationship Specialty Start Date End Date Kevin Cary MD [address] [place] [address] PCP - General Family Practice 11/12/11 Insole Rasper Relationship Specialty Start Date End Date Kevin Cary MD [address] [place] [address] PCP - General Family Practice 11/12/11 Insole Rasper Relationship Specialty Start Date End Date Kevin Cary MD [address] [place] [address] PCP - General Family Practice 11/12/11 Insole Rasper Relationship Specialty Start Date End Date Kevin Cary MD [address] [place] [address] PCP - General Family Medicine 11/12/11 Insole Rasper Relationship Specialty Start Date End Date Kevin Cary MD [address] [place] [address] PCP - General Family Medicine 11/12/11 Insole Rasper Relationship Specialty Start Date End Date Kevin Cary MD [address] [place] [address] PCP - General Family Medicine 11/12/11 Insole Rasper Relationship Specialty Start Date End Date Kevin Cary MD [address] [place] [address] PCP - General Family Medicine 11/12/11 Insole Rasper Relationship Specialty Start Date End Date Kevin Cary MD [address] [place] [address] PCP - General Family Medicine 11/12/11 Insole Rasper Relationship Specialty Start Date End Date Kevin aCry MD [address] [place] [address] PCP - General Family Medicine 11/12/11 Insole Rasper Relationship Specialty Start Date End Date Kevin Cary MD [address] [place] [address] PCP - General Family Medicine 11/12/11 Insole Rasper Relationship Specialty Start Date End Date Kevin Cary MD [address] [place] [address] PCP - General Family Medicine 11/12/11 Insole Rasper Relationship Specialty Start Date End Date Kevin Cary MD [address] [place] [address] PCP - General Family Medicine 11/12/11 Insole Rasper Relationship Specialty Start Date End Date Kevin Cary MD [address] [place] [address] PCP - General Family Medicine 11/12/11 Insole Rasper Relationship Specialty Start Date End Date Kevin Cary MD [address] [place] [address] PCP - General Family Medicine 11/12/11 Insole Rasper Relationship Specialty Start Date End Date Kevin Cary MD [address] [place] [address] PCP - General Family Medicine 11/12/11 Insole Rasper Relationship Specialty Start Date End Date Kevin Cary MD [address] [place] [address] PCP - General Family Medicine 11/12/11 Insole Rasper Relationship Specialty Start Date End Date Kevin Cary MD [address] [place] [address] PCP - General Family Medicine 11/12/11 Insole Rasper Relationship Specialty Start Date End Date Kevin Cary MD [address] [place] [address] PCP - General Family Medicine 11/12/11 Insole Rasper Relationship Specialty Start Date End Date Kevin Cary MD [address] [place] [address] PCP - General Family Medicine 11/12/11 Insole Rasper Relationship Specialty Start Date End Date Kevin Cary MD [address] [place] [address] PCP - General Family Medicine 11/12/11 Insole Rasper Relationship Specialty Start Date End Date Kevin Cary MD [address] [place] [address] PCP - General Family Medicine 11/12/11 Insole Rasper Relationship Specialty Start Date End Date Kevin Cary MD [address] [place] [address] PCP - General Family Medicine 11/12/11 Insole Rasper Relationship Specialty Start Date End Date Kevin Cary MD [address] [place] [address] PCP - General Family Medicine 11/12/11 Insole Rasper Relationship Specialty Start Date End Date Kevin Cary MD [address] [place] [address] PCP - General Family Medicine 11/12/11 Insole Rasper Relationship Specialty Start Date End Date Kevin Cary MD [address] [place] [address] PCP - General Family Medicine 11/12/11 Insole Rasper Relationship Specialty Start Date End Date Kevin Cary MD [address] [place] [address] PCP - General Family Medicine 11/12/11 Insole Rasper Relationship Specialty Start Date End Date Kevin Cary MD [address] [place] [address] PCP - General Family Medicine 11/12/11 Insole Rasper Relationship Specialty Start Date End Date Kevin Cary MD [address] [place] [address] PCP - General Family Medicine 11/12/11 Insole Rasper Relationship Specialty Start Date End Date Kevin Cary MD [address] [place] [address] PCP - General Family Medicine 11/12/11 Insole Rasper Relationship Specialty Start Date End Date Kevin Cary MD [address] [place] [address] PCP - General Family Medicine 11/12/11 Insole Rasper Relationship Specialty Start Date End Date Kevin Cary MD [address] [place] [address] PCP - General Family Medicine 11/12/11 Insole Rasper Relationship Specialty Start Date End Date Kevin Cary MD [address] [place] [address] PCP - General Family Medicine 11/12/11 Insole Rasper Relationship Specialty Start Date End Date Kevin Cary MD [address] [place] [address] PCP - General Family Medicine 11/12/11 Insole Rasper Relationship Specialty Start Date End Date Kevin Cary MD [address] [place] [address] PCP - General Family Medicine 11/12/11 Insole Rasper Relationship Specialty Start Date End Date Kevin Cary MD [address] [place] [address] PCP - General Family Medicine 11/12/11 Insole Rasper Relationship Specialty Start Date End Date Kevin Cary MD [address] [place] [address] PCP - General Family Medicine 11/12/11 Insole Rasper Relationship Specialty Start Date End Date Kevin Cary MD [address] [place] [address] PCP - General Family Medicine 11/12/11 Insole Rasper Relationship Specialty Start Date End Date Kevin Cary MD [address] [place] [address] PCP - General Family Medicine 11/12/11 Insole Rasper Relationship Specialty Start Date End Date Kevin Cary MD [address] [place] [address] PCP - General Family Medicine 11/12/11 Insole Rasper Relationship Specialty Start Date End Date Kevin Cary MD [address] [place] [address] PCP - General Family Medicine 11/12/11 Insole Rasper Relationship Specialty Start Date End Date Kevin Cary MD [address] [place] [address] PCP - General Family Medicine 11/12/11 Insole Rasper Relationship Specialty Start Date End Date Kevin Cary MD [address] [place], [place] [address] PCP - General Family Medicine 11/12/11 Insole Rasper Relationship Specialty Start Date End Date Kevin Cary MD [address] [place] [address] PCP - General Family Medicine 11/12/11 Insole Rasper Relationship Specialty Start Date End Date Kevin Cary MD [address] [place] [address] PCP - General Family Medicine 11/12/11 Reason for Visit (unrecogniz ed section and content) Specialty Diagnoses / Procedures Referred By Contac t Referred To Contact Psychiatry / ADULT PSYCHIATRY Diagnoses Follow Up Procedures [facility] Jennifer Stoner, TIE TAMPER.PLUG SORTER [address] [place] [address] Jennifer Stoner, TIE TAMPER.PLUG SORTER [address] [place] [address] Referral ID Status Reason Start Date Expiration Date V isits Requested Visits Authorized [id number] Pending Review 08/22/2021 11/20/2021 1 1 Reason Comments Results Reason Comments Pt returning call Reason Comments Neck Pain hit top of head on t ree branch x3 days, neck pain radiating into shoulders and back Reason Comments Neck Pain Bilateral Shoulder Pain Reason Comments Procedure Schedule Reason Comments Neck Pain Pain (Shoulder Pain) Reason Comments Radiology NM Reason Comments Neck Pain Reason Comments Refill Request Reason Comments 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 Covid Follow Up POS 10/22/21 Hospital F/U [facility] 10/31/21 Reason Comments Question regarding driving Reason Comments Neck Pain Reason Onset Date Comments Refill Request 12/02/2021 Reason Comments Pain Reason Comments Results Reason Onset Date Comments Refill Request 01/08/2022 Reason Comments Spirometry Specialty Diagnoses / Procedures Referred By Contac t Referred To Contact [facility] Diagnoses SOB (shortness of breath) Procedures SPIROMETRY - BASELINE AND POST DILATOR BRNCDILAT RSPSE SPMTRY PRE&POST-BRNCDILAT ADMN Kevin Cary MD [address] [place] [address] [facility] [address] [place] [address] Referral ID Status Reason Start Date Expiration Date V isits Requested Visits Authorized [id number] Closed Auto-Generate d Referral 01/04/2022 02/03/2023 1 1 Specialty Diagnoses / Procedures Referred By Contac t Referred To Contact [facility] Diagnoses SOB (shortness of breath) Procedures LUNG VOLUMES PLETHYSMOGRAPHY LUNG VOLUMES W/WO AIRWAY RESIST Kevin Cary MD [address] [place] [address] [facility] [address] [place] [address] Referral ID Status Reason Start Date Expiration Date V isits Requested Visits Authorized [id number] Closed Auto-Generate d Referral 01/07/2022 02/15/2022 1 1 Specialty Diagnoses / Procedures Referred By Contac t Referred To Contact [facility] Diagnoses SOB (shortness of breath) Procedures LUNG DIFFUSION CAPACITY (DLCO) DIFFUSING CAPACITY Kevin Cary MD [address] [place] [address] [facility] [address] [place] [id number] Referral ID Status Reason Start Date Expiration Date V isits Requested Visits Authorized [id number] Closed Auto-Generate d Referral 01/04/2022 02/03/2023 1 1 Reason Comments Consult INTERNAL HEMORRHOIDS , RECTAL BLEEDING Specialty Diagnoses / Procedures Referred By Contac t Referred To Contact General Surgery Diagnoses Internal hemorrhoids Rectal bleeding Procedures CONSULT TO GENERAL SURGERY OFFICE/OUTPATIENT [facility] 60-74 MINUTES Kevin Cary MD [address] [place] [address] Referral ID Status Reason Start Date Expiration Date V isits Requested Visits Authorized [id number] Closed PCP Requested Referral 01/04/2022 01/04/2023 1 1 Reason Comments Pain (Shoulder Pain) Neck Pain Specialty Diagnoses / Procedures Referred By Contac t Referred To Contact Internal Medicine / PAIN MANAGEMENT Diagnoses 1 month follow up Procedures REFERRAL TO [facility] EST PATIENT Self Cramer, Cindy Nicholas APRN.PLUG SORTER [address] [place] [address] Referral ID Status Reason Start Date Expiration Date Visits Re quested Visits Authorized [id number] Closed 01/28/2022 01/28/2022 1 1 Specialty Diagnoses / Procedures Referred By Contac t Referred To Contact Psychiatry / ADULT PSYCHIATRY Diagnoses follow up Procedures EST PSYC ADULT Jennifer Stoner, TIE TAMPER.PLUG SORTER [address] [place] [address] Jennifer Stoner, TIE TAMPER.PLUG SORTER [address] [place] [address] Referral ID Status Reason Start Date Expiration Date V isits Requested Visits Authorized [id number] Pending Review 12/04/2021 03/04/2022 1 1 Specialty Diagnoses / Procedures Referred By Contac t Referred To Contact MR IMAGING Diagnoses Liver lesion Procedures MRI LIVER WO/W IVCON MRI ABDOMEN W/O & W/CONTRAST MATERIAL Kevin Cary MD [address] [place] [address] Mr Imaging Referral ID Status Reason Start Date Expiration Date V isits Requested Visits Authorized [id number] Closed Auto-Generate d Referral 02/05/2022 03/07/2022 1 1 Reason Comments Follow Up Reason Onset Date Comments Refill Request 03/03/2022 Reason Onset Date Comments Refill Request 04/03/2022 Reason Comments Follow Up Reason Comments Consult Mild cognitive impai rment memory loss Specialty Diagnoses / Procedures Referred By Contac t Referred To Contact Neurology Diagnoses Cavernous hemangioma of brain (HCC) Mild cognitive impairment with memory loss Procedures CONSULT TO NEUROLOGY OFFICE/OUTPATIENT [facility] 60-74 MINUTES Kevin Cary MD [address] [place] [address] Referral ID Status Reason Start Date Expiration Date Visits Requested Visits Authorized [id number] Pending Review PCP Requested Referral 03/28/2022 03/28/2023 1 1 Reason Comments Speech Evaluation Specialty Diagnoses / Procedures Referred By Contac t Referred To Contact [facility] Diagnoses Memory loss Procedures CONSULT TO SPEECH THERAPY OFFICE/OUTPATIENT [facility] MDM 60-74 MINUTES Remington Saucedo MD [address] [place] [address] [facility] [place] [address] [place] [address] Referral ID Status Reason Start Date Expiration Date Visits Requested Visits Authorized [id number] Pending Review Auto-Generat ed Referral 04/15/2022 04/15/2023 1 1 Reason Comments Speech Progress Note Specialty Diagnoses / [facility] SPEECH THERAPY Diagnoses Memory loss [R41.3] Procedures est rs speech follow up Remington Saucedo MD [address] [place] [address] Speech [facility] [address] [place] [address] Referral ID Status Reason Start Date Expiration Date V isits Requested Visits Authorized [id number] Authorized 05/08/2022 08/08/2022 6 6 Reason Comments GERD Fecal urgency then o nly blood comes out, abnormal stool texture. Labs 05/16/22. Dark colored blood Reason Onset Date Comments Refill Request 06/03/2022 Reason Comments Consult Specialty Diagnoses / Procedures [facility] To Contact Cardiology Diagnoses Aorta disorder (HCC) Procedures CONSULT TO CARDIOLOGY OFFICE/OUTPATIENT [facility] 60-74 MINUTES Kevin Cary MD [address] [place] [address] Referral ID Status Reason Start Date Expiration Date V isits Requested Visits Authorized [id number] Closed PCP Requested Referral 03/03/2022 03/03/2023 1 1 Reason Comments Consult hemorrhoids Specialty Diagnoses / Procedures Referred By [facility] Referred To Contact General Surgery Diagnoses GERD without esophagitis Procedures CONSULT TO GENERAL SURGERY OFFICE/OUTPATIENT [facility] 60-74 MINUTES Kevin Cary MD [address] [place] [address] Referral ID Status Reason Start Date Expiration Date V isits Requested Visits Authorized [id number] Closed PCP Requested Referral 04/16/2022 04/16/2023 1 1 Reason Onset Date Comments Refill Request 09/01/2022 Reason Onset Date Comments Refill Request 09/30/2022 Reason Comments Appointment Reason Onset Date Comments Refill Request 10/30/2022 Reason Onset Date Comments Refill Request 11/27/2022 Reason Comments Recheck 6 month follow up- m ed refill Specialty Diagnoses / Procedures Referred By Contac t Referred To Contact MR IMAGING Diagnoses Mild cognitive impairment with memory loss Cognitive impairment, mild, so stated Headache, unspecified headache type Procedures MRI BRAIN WO IVCON MRI BRAIN BRAIN STEM W/O CONTRAST MATERIAL Kevin Cary MD [address] [place] [address] [place] [address] Referral ID Status Reason Start Date Expiration Date V isits Requested Visits Authorized [id number] Closed Auto-Generate d Referral 03/03/2022 04/02/2023 1 1 Reason Comments Radiology US Specialty Diagnoses / Procedures Referred By Gabiac t Referred To Contact US IMAGING Diagnoses Elevated liver enzymes Procedures US ABD RT UPPER QUADRANT US ABDOMINAL REAL TIME W/IMAGE LIMITED Kevin Cary MD [address] [place] [address] [place] [address] Referral ID Status Reason Start Date Expiration Date V isits Requested Visits Authorized [id number] Closed Auto-Generate d Referral 01/07/2022 02/06/2023 1 1 Reason Onset Date Comments Refill Request 12/29/2022 Reason Onset Date Comments Refill Request 01/28/2023 Reason Comments Other Virtual Visit Pre Ch oliva In Reason Comments Other Patient questions Reason Comments Other Follow up appt Ordered Prescriptions (unrec ognized section and content) Scheduled Active and Recently Administ ered Medications (unrecognized section and content) PRN Medication Order 10/24/2021 10/25/2021 10/26/2021 0.9 % sodium chloride bolus 30 mL, IntraVENous, at 180 mL/hr, Administer over 10 Minutes, PRN, for Remdesivir line flush, Starting on Thu10/22/21 at 0731 0.9 % sodium chloride infusion IntraVENous, at 5-250 mL/hr, PRN, if patient receiving piggyback infusions and maintenance fluids are not ordered OR KVO fluids to protect IV site / prevent frequent line interruptions/ long duration, Starting on Thu10/22/21 at 0736, For piggyback infusion, administer at same rate as piggyback for a total of 25 mL. Enter 25 mL into dose field and piggyback rate into rate field of order. If piggyback is infusing at a rate less than 100 mL/hr, enter 25 mL into dose field and 100 mL/hr into rate field of order. For KVO fluids, enter rate of 20 mL/hr or less into rate field of order. albuterol (PROVENTIL) nebulizer solution 2.5 mg 2.5 mg, Nebulization, EVERY 4 HOURS PRN, Starting on Thu10/22/21 at 0713, Until Discontinued, Wheezing, Shortness of Breath, Initiate RT Bronchodilator Protocol: Yes - Inpatient Protocol albuterol sulfate HFA (PROVENTIL;VENTOLIN;PROAI R) 108 (90 Base) MCG/ACT inhaler 2 puff 2 puff, Inhalation, EVERY 4 HOURS PRN, Starting on Thu10/24/21 at 1045, Until Discontinued, Wheezing, Initiate RT Bronchodilator Protocol: No aluminum & magnesium hydroxide-simethicone (MAALOX) 200-200-20 MG/5ML suspension 30 mL 30 mL, Oral, EVERY 6 HOURS PRN, Starting on Thu10/22/21 at 0745, Until Discontinued, Indigestion bisacodyl (DULCOLAX) suppository 10 mg 10 mg, Rectal, DAILY PRN, Starting on Thu10/22/21 at 0746, Until Discontinued, Constipation calcium carbonate (TUMS) chewable tablet 1,000 mg 1,000 mg, Oral, 3 TIMES DAILY PRN, Starting on Thu10/22/21 at 0746, Until Discontinued, Heartburn carboxymethylcellulose PF (REFRESH PLUS) 0.5 % ophthalmic solution 2 drop 2 drop, Both Eyes, EVERY 6 HOURS PRN, Starting on Thu10/22/21 at 0747, Until Discontinued, dry eyes cyclobenzaprine (FLEXERIL) tablet 5 mg 5 mg, Oral, 3 TIMES DAILY PRN, Starting on Thu10/22/21 at 0747, Until Discontinued, Muscle spasms 2020 (Given - Provider: Kate Yip RN) diphenoxylate-atropine (LOMOTIL) 2.5-0.025 MG per tablet 1 tablet 1 tablet, Oral, 4 TIMES DAILY PRN, Starting on Thu10/22/21 at 0751, Until Discontinued, Diarrhea guaiFENesin-dextromethorp barillas (ROBITUSSIN DM) 100-10 MG/5ML syrup 5 mL 5 mL, Oral, EVERY 4 HOURS PRN, Starting on Thu10/22/21 at 0724, Until Discontinued, Cough melatonin capsule 10 mg 10 mg, Oral, NIGHTLY PRN, Starting on Thu10/22/21 at 2100, Until Discontinued, insomnia 2020 (Given - Provider: Kate Yip, SUKUMAR) 2057 (Given - Provider: Shila Calvo, SUKUMAR) ondansetron (ZOFRAN) injection 4 mg(Linked Group 2) 4 mg, IntraVENous, EVERY 6 HOURS PRN, Starting on Thu10/22/21 at 0736, Until Discontinued, Nausea, Vomiting, Administer if oral route cannot be used. ondansetron (ZOFRAN-ODT) disintegrating tablet 4 mg(Linked Group 2) 4 mg, Oral, EVERY 8 HOURS PRN, Starting on Thu10/22/21 at 0736, Until Discontinued, Nausea, Vomiting oxyCODONE (ROXICODONE) immediate release tablet 15 mg 15 mg, Oral, EVERY 6 HOURS PRN, Starting on Thu10/22/21 at 0735, Until Discontinued, Pain Severe (7-10) 1129 (Given - Provider: Dwayne Guzman RN) 210 (Given - Provider: Shila Calvo RN) 0851 (Given - Provider: Michael Sanchez RN) polyethylene glycol (GLYCOLAX) packet 17 g 17 g, Oral, DAILY PRN, Starting on Thu10/22/21 at 0736, Until Discontinued, Constipation, First line therapy for constipation sodium chloride flush 0.9 % injection 5-40 mL 5-40 mL, IntraVENous, PRN, Starting on Thu10/22/21 at 0736, Until Discontinued, Line Care, After every IV line use, For Line Patency: Peripheral IV = 5 mL; Midline or Central Line = 10 mL/lumen. If following IV push medication, administer flush at same rate as the IV push. Flush volume is determined by type of infusion therapy being given. For non-viscous solutions use: Peripheral IV = 5 mL Midline or Central Line = 10 mL/lumen For viscous solutions (i.e. blood components, parenteral nutrition, contrast media, or after obtaining blood sample) use: Peripheral IV = 10 mL Midline or Central Line = 20 mL/lumen Linked Groups Order Group 1: apixaban (ELIQUIS) tablet 10 mgJump to med 10 mg, Oral, 2 TIMES DAILY, 14 doses, First dose on Thu10/22/21 at 0900, Last dose on Thu10/28/21 at 2100
Indication of Use: Treatment-DVT/PE
ANTICOAGULANT
Followed by apixaban (ELIQUIS) tablet 5 mgJump to med 5 mg, Oral, 2 TIMES DAILY, First dose on Thu10/29/21 at 0900, Until Discontinued
Indication of Use: Treatment-DVT/PE
ANTICOAGULANT
Group 2: ondansetron (ZOFRAN-ODT) disintegrating tablet 4 mgJump to med 4 mg, Oral, EVERY 8 HOURS PRN, Starting on Thu10/22/21 at 0736, Until Discontinued, Nausea, Vomiting Or ondansetron (ZOFRAN) injection 4 mgJump to med 4 mg, IntraVENous, EVERY 6 HOURS PRN, Starting on Thu10/22/21 at 0736, Until Discontinued, Nausea, Vomiting
Administer if oral route cannot be used.
FOR RECORDS PERTAINING TO PATIENTS WHO ARE OR HAVE BEEN ENROLLED IN A CHEMICAL DEPENDENCY/SUBSTANCEABUSE PROGRAM, SOME INFORMATION MAY BE OMITTED. This clinical summary was aggregated from multiple sources. Caution should be exercised in using it in the provision of clinical care. This summary normalizes information from multiple sources, and as a consequence, information in this document may materially change the coding, format and clinical context of patient data. In addition, data may be omitted in some cases. CLINICAL DECISIONS SHOULD BE BASED ON THE PRIMARY CLINICAL RECORDS. [employer] provides no warranty or guarantee of the accuracy or completeness of information in this document.
[2023-04-25 14:00] LABS: Anion Gap 6 (5-15); BUN 18 mg/dL (7-18); BUN/Creat Ratio 18.7 RATIO (10-20); Calcium,Total 8.5 mg/dL (8.5-10.1); Chloride 106 mmol/L (98-107); Creatinine, Serum 0.96 mg/dL (0.70-1.30); EST Glomerular Filtration Rate 84 mL/min (>60); Est Glom Filt Rate - Afr Amer 101 mL/min (>60); Estimated Creatinine Clearance 82.18 ml/min; Glucose 106 mg/dL (74-106); Potassium 3.3 mmol/L (3.5-5.1); Sodium Level 139 mmol/L (136-145); Troponin-I HS 4 pg/mL (3.0-78.0)
[2023-04-25 15:29] VITALS: BP 130/82; PULSE 59; RESP 14; TEMP 36; O2SAT 97
[2023-04-25] MEDS: Potassium Chloride Oral Tablet 20 MEQ 40 MEQ PO (15:37)
== END 2023-04-25 15:40 | disposition home or self-care (01) ==
PROVIDERS: Emergency Provider Emergency Medicine; PCP Family Medicine; Visit Provider Emergency Medicine
DX: M54.9 Dorsalgia, unspecified (principal); R06.00 Dyspnea, unspecified; R14.0 Abdominal distension (gaseous); Z86.711 Personal history of pulmonary embolism
CPT/HCPCS: 71275; 80048; 84484; 85025; 93005; 99283; Q9967; A4216

== ENCOUNTER 2024-03-13 17:53 | Emergency (ER) | payer MEDICARE, SELFPAY ==
[2024-03-13] VITALS (7 sets, daily range): BP systolic 107–133; BP diastolic 62–95; PULSE 63–95; RESP 14–18; TEMP 36.7–37.1; O2SAT 95–96; BMI 31.3
[2024-03-13 18:10] LABS: Absolute Lymphocyte Count 2.16 X10^3/uL (0.83-4.51); Absolute Neutrophil Count 3.2 X10^3/uL (2.0-7.7); Basophil# 0.03 X10^3/uL; Basophil% 0.5 % (0-1); Eosinophil# 0.08 X10^3/uL; Eosinophils% 1.2 % (0-5); Hematocrit 49.5 % (40-54); Lymphocyte # 2.16 X10^3/ul (0.83-4.51); Lymphocyte % 32.6 % (19-41); Mean Corp Hgb Conc 34.3 g/dL (32-36); Mean Corpuscular Hgb 29.2 pg (27.0-32.0); Mean Corpuscular Volume 84.9 fL (80-94); Mean Platelet Vol. 9.2 fl (6.2-12.0); Monocyte# 1.12 X10^3/uL; Monocyte% 16.9 % (0-10); NRBC Flagged by Analyzer 0 % (0-5); Neutrophil % 48.3 % (47-70); Platelet Count 146 K/mm3 (150-450); RBC Distribution Width CV 12.9 % (11.6-14.6); RBC Distribution Width SD 39.2 fl (35.1-43.9); Red Blood Count 5.83 M/mm3 (4.6-6.2); White Blood Count 6.6 K/mm3 (4.4-11.0)
--- NOTE | 2024-03-13 18:14 | EDS_ITS ---
HPI <YOLETTE Perdomo - Last Filed: 03/13/24 22:11> History of Present Illness Chief Complaint: Abd Pain Narrative Narrative: 63-year-old male with past medical history of HTN, GERD, remote PE after COVID presents with constellation of complaints. He states he has had runny nose and cough for over a week. Both sides of his rib cage hurt when he coughs or sneezes and he has bodyaches. He denies shortness of breath. Over the last few days he has also had generalized abdominal pain wrapping around to bilateral flanks. He states his stool has looked dark green or black at times. He reports a long history of intermittent rectal bleeding and had a hemorrhoid surgery on February 01 3024. He is not on blood thinners. He states his last colonoscopy was 6 months ago and they removed benign polyps. [facility] <YOLETTE Perdomo - Last Filed: 03/13/24 22:11> [facility] Medical History (Updated 03/13/24 @ 22:07 by YOLETTE Perdomo) Hemorrhoid Pulmonary embolism Anxiety Depression GERD (gastroesophageal reflux disease) Non-smoker Hypertension Hypothyroidism Home Medications ?Medication ?Instructions ?Recorded ?Last Taken ?Type apixaban 5 mg (74 tabs) tablets in 5 mg PO BID #74 tabs 10/21/21 Unknown Rx a dose pack (Eliquis DVT-PE Treat 30D Start) gabapentin 300 mg capsule 300 mg PO TID 10/21/21 Unknown History lamotrigine 150 mg tablet 150 mg PO DAILY 10/21/21 Unknown History losartan 100 mg tablet 100 mg PO DAILY 10/21/21 Unknown History morphine 15 mg tablet,extended 15 mg PO DAILY 10/21/21 Unknown History release omega-3 fatty acids 500 mg PO DAILY 10/21/21 Unknown History omeprazole 20 mg capsule,delayed 20 mg PO DAILY 10/21/21 Unknown History release oxycodone 15 mg tablet 15 mg PO TID 10/21/21 Unknown History quetiapine 150 mg tablet,extended 150 mg PO DAILY 10/21/21 Unknown History release 24 hr triamterene 37.5 1 tab PO DAILY 10/21/21 Unknown History mg-hydrochlorothiazide 25 mg tablet Allergy/AdvReac Type Severity Reaction Status Date / Time acetaminophen (From AdvReac Upset Verified 03/13/24 17:54 Darvocet-N) Stomach propoxyphene (From AdvReac Upset Verified 03/13/24 17:54 Darvocet-N) Stomach Surgical History (Updated 03/13/24 @ 18:32 by Mara Shepard) History of rectal surgery History of rotator cuff surgery Social History Smoking Status: Never smoker ROS <YOLETTE Perdomo - Last Filed: 03/13/24 22:11> ROS ED ROS Narrative Constitutional: Positive for hills, malaise. ENT: Positive for rhinorrhea. CVS: Positive for chest pain. No syncope. Respiratory: Positive for cough. Negative for shortness of breath. GI: Positive for abdominal pain, nausea, vomiting, melena. : Negative for dysuria. Neuro: Negative for headache. EXAM <YOLETTE Perdomo - Last Filed: 03/13/24 22:11> Physical Exam Narrative Exam Narrative: CONST: Patient sitting in no acute distress. EYES: Normal inspection. NECK: Normal inspection. RESP: No respiratory distress, CTAB. CVS: Regular rate and rhythm, no murmur, no gallop. ABD: Soft with mild right upper quadrant and epigastric tenderness, no guarding or rebound, nondistended. Back: Normal inspection, no CVA tenderness. SKIN: Color normal, no rash, warm, dry, intact. EXTREMITIES: Normal appearance, no pedal edema. NEURO: Alert and answering questions appropriately. PSYCH: Normal affect. Const Vital Signs: 03/13/24 17:54 03/13/24 18:04 03/13/24 19:04 Temperature 98.7 F Temperature Source Oral Pulse Rate 95 88 79 Respiratory Rate 18 14 14 Blood Pressure 107/92 H 133/89 H Blood Pressure Mean 97 103 Pulse Ox 96 95 95 Oxygen Delivery Method Room Air Room Air Room Air 03/13/24 20:00 03/13/24 21:00 03/13/24 22:00 Temperature Temperature Source Pulse Rate 74 63 78 Respiratory Rate 15 16 Blood Pressure 126/62 H 129/95 H Blood Pressure Mean 83 106 Pulse Ox 95 96 Oxygen Delivery Method Room Air Room Air 03/13/24 22:15 Temperature 98.0 F Temperature Source Pulse Rate 87 Respiratory Rate 16 Blood Pressure 129/95 H Blood Pressure Mean 106 Pulse Ox 95 Oxygen Delivery Method <Dr. Waqar Martin DO - Last Filed: 03/14/24 01:28> Physical Exam Const Vital Signs: 03/13/24 17:54 03/13/24 18:04 03/13/24 19:04 Temperature 98.7 F Temperature Source Oral Pulse Rate 95 88 79 Respiratory Rate 18 14 14 Blood Pressure 107/92 H 133/89 H Blood Pressure Mean 97 103 Pulse Ox 96 95 95 Oxygen Delivery Method Room Air Room Air Room Air 03/13/24 20:00 03/13/24 21:00 03/13/24 22:00 Temperature Temperature Source Pulse Rate 74 63 78 Respiratory Rate 15 16 Blood Pressure 126/62 H 129/95 H Blood Pressure Mean 83 106 Pulse Ox 95 96 Oxygen Delivery Method Room Air Room Air 03/13/24 22:15 Temperature 98.0 F Temperature Source Pulse Rate 87 Respiratory Rate 16 Blood Pressure 129/95 H Blood Pressure Mean 106 Pulse Ox 95 Oxygen Delivery Method MDM <YOLETTE Perdomo - Last Filed: 03/13/24 22:11> [facility] MDM Narrative Medical decision making narrative: History gathered from: Patient and significant other Differential includes but not limited to viral illness, pneumonia, ACS, PE, intra-abdominal process 63-year-old male presents with constellation of symptoms including cough, chest pain with coughing, and abdominal and bilateral flank pain. He appears well and nontoxic. Vital signs are stable. He has a normal cardiopulmonary exam and mild upper abdominal tenderness. Digital rectal exam shows medium brown stool which is Hemoccult positive. He has a normal white blood cell count at 6.6, hemoglobin of 17.0, and a completely normal CMP and lipase. EKG is nonischemic and troponin is 4. D-dimer of 0.51 is negative with age adjustment. CT scan possible cystitis but his urinalysis is negative. There are chronic findings such as prostatomegaly, hepatic hemangiomas, diverticulosis but nothing acute. When I reassessed the patient around 10 PM his abdomen is soft and nontender and he states he is feeling much better. He then relates that he has had this intermittent abdominal pain for a year. Although he is Hemoccult positive with his normal hemoglobin and established GI physician I feel he can be discharged to follow-up with his specialist. I discussed management of influenza A which I think is can contributing to his rib cage pain and myalgias. He was comfortable with this plan and discharged in stable condition. Lab Data Attestation: I reviewed the patient's lab results. Labs: Laboratory Results - last 24 hr 03/13/24 03/13/24 03/13/24 18:05 18:18 19:22 WBC 6.6 RBC 5.83 Hgb 17.0 H Hct 49.5 MCV 84.9 MCH 29.2 MCHC 34.3 RDW Std Deviation 39.2 RDW Coeff of [place] 12.9 Plt Count 146 L MPV 9.2 Immature Gran % (Auto) 0.500 Neut % (Auto) 48.3 Lymph % (Auto) 32.6 [place] % (Auto) 16.9 H Eos % (Auto) 1.2 Baso % (Auto) 0.5 Absolute Neuts (auto) 3.2 Absolute Lymphs (auto) 2.16 Nucleated RBC % 0 D-Dimer Quant (PE/DVT) 0.51 H* Sodium 137 Potassium 3.6 Chloride 103 Carbon Dioxide 28.0 Anion Gap 6 BUN 18 Creatinine 0.97 Estim Creat Clear Calc 81.01 Est GFR (MDRD) Af Amer 100 Est GFR (MDRD) Non-Af 83 BUN/Creatinine Ratio 18.5 Glucose 96 Calcium 9.2 Total Bilirubin 0.90 AST 23 ALT 42 Alkaline Phosphatase 97 Troponin I High Sens 4 Total Protein 7.4 Albumin 3.8 Globulin 3.6 Albumin/Globulin Ratio 1.1 Lipase 29 Urine Color Yellow Urine Clarity Clear Urine pH 6.0 Ur Specific [place] 1.025 Urine Protein 30 H Urine Glucose (UA) Normal Urine Ketones 5 H Urine Occult Blood 10 H Urine Nitrite Negative Urine Bilirubin 1 H Urine Urobilinogen 1 H Ur Leukocyte Esterase 25 H Urine RBC 0-5 SEEN Urine WBC 0-5 SEEN Ur Squamous Epith Cells 0 SEEN Urine Bacteria 0 SEEN Urine Mucus 0 SEEN Radiography Diagnostic Testing: Clinical Impression(s) from Imaging Studies Chest X-Ray 03/13/24 19:00 IMPRESSION: No acute radiographic abnormalities. Electronically Signed: Mahin Moe MD at 21:24 EST , Abdomen/Pelvis CT 03/13/24 19:55 IMPRESSION: Findings suspicious for cystitis. Correlate with urinalysis. Mild prostatomegaly. Correlate with PSA levels. Multiple hepatic hemangiomas. Diverticulosis. Electronically Signed: Mahin Moe MD at 21:49 EST , ED attending interpretation of 2-view chest x-ray shows normal heart size, no acute infiltrate. EKG Initial EKG: Attestation: I personally reviewed and interpreted this EKG as follows: Interpretation: Sinus Rhythm and No Acute Injury Pattern Comments: Normal sinus rhythm at 77 bpm Normal intervals No acute ischemic changes <Dr. Waqar Martin, DO - Last Filed: 03/14/24 01:28> MDM MDM Narrative Medical decision making narrative: History gathered from: Patient and significant other Differential includes but not limited to viral illness, pneumonia, ACS, PE, intra-abdominal process 63-year-old male presents with constellation of symptoms including cough, chest pain with coughing, and abdominal and bilateral flank pain. He appears well and nontoxic. Vital signs are stable. He has a normal cardiopulmonary exam and mild upper abdominal tenderness. Digital rectal exam shows medium brown stool which is Hemoccult positive. He has a normal white blood cell count at 6.6, hemoglobin of 17.0, and a completely normal CMP and lipase. EKG is nonischemic and troponin is 4. D-dimer of 0.51 is negative with age adjustment. CT scan possible cystitis but his urinalysis is negative. There are chronic findings such as prostatomegaly, hepatic hemangiomas, diverticulosis but nothing acute. When I reassessed the patient around 10 PM his abdomen is soft and nontender and he states he is feeling much better. He then relates that he has had this intermittent abdominal pain for a year. Although he is Hemoccult positive with his normal hemoglobin and established GI physician I feel he can be discharged to follow-up with his specialist. I discussed management of influenza A which I think is can contributing to his rib cage pain and myalgias. He was comfortable with this plan and discharged in stable condition. Supervisory Physician Note Patient was seen and examined with the Advanced Practice Provider. Nursing notes and vital signs have been reviewed. Pertinent old records have been reviewed. I agree with the essential elements of the ZAYDA's history, physical exam, assessment, and plan. The differential diagnosis and management options were discussed with the ZAYDA. I participated in determining and agree with the management, procedures, final impression and disposition as documented. See changes noted by me. Please see addendum or separate note for any additional details. 63-year-old gentleman presents for evaluation of multiple complaints. Endorses runny nose, cough, body aches, generalized abdominal pain. Denies any fever, shortness of breath, chest pain, nausea, vomiting, diarrhea, constipation. Has history of episodic GI bleed with recent hemorrhoidal surgery in January. States since his surgery has been having dark stools. Last colonoscopy was 6 mo nths ago. Gen: A&O x3, NAD Head: Normocephalic, atraumatic Eyes: No sclera icterus, conjunctiva clear ENT: Moist mucous membranes Neck: Trachea midline, No JVD CV: RRR, no murmurs, no peripheral edema Resp: Lungs CTA BL, no w/r/c GI: Abd soft, non-distended, mildly tender to palpation of the right upper quadrant epigastrium, no r/r/g. Rectal exam performed by APC. : No CVA tenderness Musc: Full ROM, no deformity Skin: Warm, dry Neuro: Alert, oriented, grossly intact, sensation intact Psych: Cooperative, appropriate mood and affect Laboratory and imaging workup ordered. EKG shows normal sinus rhythm with a heart rate of 77. No acute ischemic changes. Chest x-ray without pneumonia, effusion, cardiomegaly, pneumothorax. CBC without leukocytosis. Patient has hemoconcentration with hemoglobin of 17 and new mild thrombocytopenia at 146. CMP without electrolyte abnormality, ADE, transaminitis. Lipase unremarkable. Troponin unremarkable. D-dimer negative for age adjustment. UA negative for UTI. Patient is positive for influenza A. Hemoccult is positive. CT abdomen pelvis shows mild prostamegaly and multiple hepatic angiomas. Diverticulosis without diverticulitis. On reassessment, patient abdominal pain improved. Patient did have positive Hemoccult but is without anemia. His vitals are stable. Patient states that he has been having intermittent abdominal pain as well as rectal bleeding for a year. He has an established GI physician. I do feel that patient is appropriate to follow-up outpatient with his established GI physician for his GI bleed. However he was given the option for admission and declined. He states he would rather follow-up outpatient with his established GI. He will call tomorrow. Strict return precautions were given. I suspect patient's other symptoms are secondary to his influenza A infection. Follow-up with PCP. Return precautions explained. Patient discharged home. Impression: 1. Influenza A 2. GI bleed with history of recurrent GI bleed Lab Data Labs: Laboratory Results - last 24 hr 03/13/24 03/13/24 03/13/24 18:05 18:18 19:22 WBC 6.6 RBC 5.83 Hgb 17.0 H Hct 49.5 MCV 84.9 MCH 29.2 MCHC 34.3 RDW Std Deviation 39.2 RDW Coeff of [place] 12.9 Plt Count 146 L MPV 9.2 Immature Gran % (Auto) 0.500 Neut % (Auto) 48.3 Lymph % (Auto) 32.6 [place] % (Auto) 16.9 H Eos % (Auto) 1.2 Baso % (Auto) 0.5 Absolute Neuts (auto) 3.2 Absolute Lymphs (auto) 2.16 Nucleated RBC % 0 D-Dimer Quant (PE/DVT) 0.51 H* Sodium 137 Potassium 3.6 Chloride 103 Carbon Dioxide 28.0 Anion Gap 6 BUN 18 Creatinine 0.97 Estim Creat Clear Calc 81.01 Est GFR (MDRD) Af Amer 100 Est GFR (MDRD) Non-Af 83 BUN/Creatinine Ratio 18.5 Glucose 96 Calcium 9.2 Total Bilirubin 0.90 AST 23 ALT 42 Alkaline Phosphatase 97 Troponin I High Sens 4 Total Protein 7.4 Albumin 3.8 Globulin 3.6 Albumin/Globulin Ratio 1.1 Lipase 29 Urine Color Yellow Urine Clarity Clear Urine pH 6.0 Ur Specific [place] 1.025 Urine Protein 30 H Urine Glucose (UA) Normal Urine Ketones 5 H Urine Occult Blood 10 H Urine Nitrite Negative Urine Bilirubin 1 H Urine Urobilinogen 1 H Ur Leukocyte Esterase 25 H Urine RBC 0-5 SEEN Urine WBC 0-5 SEEN Ur Squamous Epith Cells 0 SEEN Urine Bacteria 0 SEEN Urine Mucus 0 SEEN Radiography Diagnostic Testing: Clinical Impression(s) from Imaging Studies Chest X-Ray 03/13/24 19:00 IMPRESSION: No acute radiographic abnormalities. Electronically Signed: Mahin Moe MD at 21:24 EST , Abdomen/Pelvis CT 03/13/24 19:55 IMPRESSION: Findings suspicious for cystitis. Correlate with urinalysis. Mild prostatomegaly. Correlate with PSA levels. Multiple hepatic hemangiomas. Diverticulosis. Electronically Signed: Mahin Moe MD at 21:49 EST , Discharge Plan Triage Chief Complaint: Abd Pain ED Midlevel Provider: Ileana Delcid ED Provider: Waqar Martin Dx/Rx/DC Orders Clinical Impression: Influenza A, Atypical chest pain, GI bleed, Abdominal pain Instructions: Abdominal Pain, ED Influenza (Adult) Prescriptions: No Action lamotrigine 150 mg tablet 150 mg PO DAILY oxycodone 15 mg tablet 15 mg PO TID Patient Comments: TAKE 1 TABLET BY MOUTH EVERY 8 HOURS NEEDED FOR PAIN for up to 30 days. May fill on or after 10/12/2021 gabapentin 300 mg capsule 300 mg PO TID Patient Comments: TAKE 1 CAPSULE BY MOUTH THREE TIMES DAILY FOR 30 DAYS may fill on or after 10/10/2021 omeprazole 20 mg capsule,delayed release(DR/EC) 20 mg PO DAILY Patient Comments: TAKE 1 CAPSULE BY MOUTH 30 MINUTES BEFORE BREAKFAST Rx Instructions: BEFORE BREAKFAST morphine 15 mg tablet extended release 15 mg PO DAILY Patient Comments: Take 1 tablet by mouth once daily as needed for pain for up to 30 days. for Pain Do not start before October 09, 2021. quetiapine 150 mg tablet extended release 24 hr 150 mg PO DAILY Patient Comments: TAKE 1 TABLET BY MOUTH DAILY AT BEDTIME. Rx Instructions: AT BEDTIME losartan 100 mg tablet 100 mg PO DAILY Patient Comments: TAKE 1 TABLET BY MOUTH ONCE DAILY triamterene-hydrochlorothiazid 37.5-25 mg tablet 1 tab PO DAILY Patient Comments: TAKE 1 TABLET BY MOUTH ONCE DAILY [place] 3 Capsule 500 mg PO DAILY Eliquis DVT-PE Treat 30D Start 5 mg (74 tabs) tablets,dose pack 5 mg PO BID Qty: 74 0RF Rx Instructions: 10 mg p.o. twice daily x1 week then 5 mg p.o. twice daily Primary Care Provider: Kevin Rossi Referrals: Kevin Rossi MD [Primary Care Provider] - Activity Restrictions/Additional Instructions: You tested positive for influenza A. Rest, drink plenty fluids, and take Tylenol 1000 mg every 6 hours as needed for fever or pain. You can take [id number] decongestion such as Mucinex. Regarding your abdominal pain you do have blood in your stool but your blood level is normal. 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 Print Language: French Disposition Disposition: Home, Self Care Discharge Date/Time: 03/13/24 22:18
[2024-03-13 18:30] LABS: ALB/GLOB Ratio 1.1 RATIO (0.9-2.4); AST(SGOT) 23 U/L (15-37); Alanine Aminotransfer ALT/SGPT 42 U/L (16-61); Albumin, Serum 3.8 g/dL (3.2-5.0); Alkaline Phosphatase 97 U/L (45-117); Anion Gap 6 (5-15); BUN 18 mg/dL (7-18); BUN/Creat Ratio 18.5 RATIO (10-20); Calcium,Total 9.2 mg/dL (8.5-10.1); Chloride 103 mmol/L (98-107); Creatinine, Serum 0.97 mg/dL (0.70-1.30); EST Glomerular Filtration Rate 83 mL/min (>60); Est Glom Filt Rate - Afr Amer 100 mL/min (>60); Estimated Creatinine Clearance 81.01 ml/min; Globulin 3.6 g/dL (2.2-4.2); Glucose 96 mg/dL (74-106); Potassium 3.6 mmol/L (3.5-5.1); Protein, Total 7.4 g/dL (6.4-8.2); Sodium Level 137 mmol/L (136-145)
[2024-03-13 18:36] LABS: Bacteria 0 SEEN /hpf (None Seen); Mucous, Urine 0 SEEN /hpf (<or=2+); Squamous Epithelial Cells - UA 0 SEEN /hpf (0-5)
[2024-03-13] MEDS: Ketorolac 30 MG/ML Syringe IV (18:41)
[2024-03-13 18:43] LABS: Color, Urine Yellow (Yellow); Glucose, Dipstick Normal (Normal); Ketone-Dipstick 5 mg/dl (Negative); Leukocyte Esterase-Dipstick 25 /ul (Negative); Nitrite-Dipstick Negative (Negative); Occult Blood-Urine 10 /ul (Negative); Protein-Dipstick 30 mg/dl (Negative); Specific Gravity, Urine 1.025 (1.002-1.030); Urine Clarity Clear (Clear); Urine Urobilinogen 1 mg/dl (Normal)
[2024-03-13 18:45] LABS: Urine Bilirubin Dipstick 1 mg/dL (Negative)
[2024-03-13 18:50] LABS: Red Blood Cells-Urine 0-5 SEEN /hpf (0-5); White Blood Cells 0-5 SEEN /hpf (0-5)
--- NOTE | 2024-03-13 19:00 | RAD_ITS ---
INDICATION: cough EXAMINATION/TECHNIQUE: X-RAY - XR Chest 2 Views COMPARISON: 10/21/2021. FINDINGS: The lungs are clear. The cardiomediastinal silhouette is unremarkable. No pleural effusion or pneumothorax. No acute osseous abnormalities. RAD/Chest PA and Lateral IMPRESSION: No acute radiographic abnormalities. Electronically Signed: Mahin Moe MD at 21:24 EST ,
--- NOTE | 2024-03-13 19:17 | EKG12_ITS ---
Test Reason : DYSRHYTHMIA Blood Pressure : */* mmHG Vent. Rate : 77 BPM Atrial Rate : 77 BPM P-R Int : 142 ms QRS Dur : 78 ms QT Int : 380 ms P-R-T Axes : 17 -7 11 degrees QTcB Int : 430 ms Normal sinus rhythm Normal ECG When compared with ECG of 25-Apr-2023 13:51, Vent. rate has increased by 26 bpm Confirmed by JOSSE LYNCH, GUERRERO ([id number]), graphics editor ANJUM DESAI ([id number]) on 03/16/2024 7:54:57 AM Referred By: Confirmed By: GUERRERO LOAIZA MD
[2024-03-13 19:48] LABS: Troponin-I HS 4 pg/mL (3.0-78.0)
[2024-03-13 19:49] LABS: Lipase 29 U/L (13-75)
[2024-03-13 19:55] LABS: D-Dimer Quantitative (DVT/PE) 0.51 FEU/ug/m (0.27-0.49)
--- NOTE | 2024-03-13 19:55 | CT_ITS ---
INDICATION: abdominal pain EXAMINATION: CT Abdomen And Pelvis W/ Contrast Injection TECHNIQUE: Helically acquired images were obtained of the abdomen and pelvis after IV contrast. A radiation dose optimization technique was used for this scan. IV Contrast dosage and agent: IV 100mL Isovue-370 Oral contrast: None. COMPARISON: None. FINDINGS: Visualized lung bases: Unremarkable Liver: Multiple hypoattenuating lesions in the liver with peripheral nodular enhancement consistent with hemangiomas. For example, there is a 2.2 cm lesion in segment 7. Gallbladder: Unremarkable Spleen: Unremarkable Pancreas: Unremarkable Adrenal Glands: Unremarkable Kidneys: Unremarkable Vasculature: Mild scattered aortoiliac atherosclerotic calcifications. GI Tract: Scattered diverticula throughout the colon without evidence of inflammation. The appendix is normal. Lymphadenopathy: None Peritoneum: No ascites. Bladder: Mild circumferential wall thickening with subtle surrounding inflammatory changes. Reproductive organs: The prostate is mildly enlarged. Bones/Soft tissues: Mild scattered degenerative changes of the visualized spine. CT/Abdomen/Pelvis W IV Cont ONLY IMPRESSION: Findings suspicious for cystitis. Correlate with urinalysis. Mild prostatomegaly. Correlate with PSA levels. Multiple hepatic hemangiomas. Diverticulosis. Electronically Signed: Mahin Moe MD at 21:49 EST ,
[2024-03-13] MEDS: 0.9% Normal Saline (1000mL) 1,000 ML 999 ML IV (20:00)
[2024-03-13] MEDS: Ondansetron 4 MG/2 ML Vial IV (20:17)
[2024-03-13] MEDS: Morphine 4 MG/ML Syringe IV (20:17)
== END 2024-03-13 22:18 | disposition home or self-care (01) ==
PROVIDERS: Physician Assistant; Emergency Provider Surgery; PCP Family Medicine; Visit Provider Surgery
DX: J10.1 Influenza due to other identified influenza virus with other respiratory manifestations (principal); K92.2 Gastrointestinal hemorrhage, unspecified; Z86.711 Personal history of pulmonary embolism; Z86.16 Personal history of COVID-19
CPT/HCPCS: 71046; 74177; 80053; 81001; 82274; 83690; 84484; 85025; 85379; 87631; 93005; 96361; 96374; 96375; 99283; Q9967; A4216; J2405

== ENCOUNTER 2024-12-31 12:09 | Emergency (ER) | payer MEDICARE, SELFPAY ==
[2024-12-31 12:11] VITALS: BP 168/114; PULSE 58; RESP 16; TEMP 36.6; O2SAT 98; BMI 32.3
--- NOTE | 2024-12-31 12:27 | EKG12_ITS ---
Test Reason : CHEST PAIN Blood Pressure : */* mmHG Vent. Rate : 53 BPM Atrial Rate : 53 BPM P-R Int : 168 ms QRS Dur : 84 ms QT Int : 470 ms P-R-T Axes : -9 -14 -2 degrees QTcB Int : 441 ms Sinus bradycardia with Premature atrial complexes in a pattern of bigeminy Minimal voltage criteria for LVH, may be normal variant ( R in aVL ) Borderline ECG Confirmed by WERNER LYNCH, JARRED ([id number]), editor city ANJUM DESAI ([id number]) on 01/02/2025 9:09:06 AM Referred By: Confirmed By: JARRED CALDERA MD
--- NOTE | 2024-12-31 12:27 | CT_ITS ---
PROCEDURE: CTA CHEST W/WO CONTRAST 12/31/2024 REASON FOR EXAM: CHEST AND BACK PAIN HX PE TECHNIQUE: Procedure Code: [id number] Modality: CT Procedure: CTA CHEST W/WO CONTRAST Multiplanar Sagittal and Coronal images were obtained. CONTRAST: Isovue 370 VOLUME: 91 mL One or more dose reduction techniques were used (e.g., Automated exposure control, adjustment of the mA and/or kV according to patient size, use of iterative reconstruction technique). RADIATION DOSE SUMMARY: CTDlvol: 15.42 mGy DLP: 553. 35 mGycm COMPARISON: CTA chest april 24 2024. # of known CTs in the past 12 months: 1 # of known Cardiac Nuclear Medicine Studies in the past 12 months: 0 FINDINGS: Thoracic Aorta: No aneurysm. Heart: No cardiomegaly. Pulmonary Vessels: No aneurysm. Hardware: Unremarkable. Lymph nodes: Lymphadenopathy. Lungs and Airways: Clear. Pleura: No no effusion or pneumothorax. Upper Abdomen: Unremarkable. Bones: No acute bony abnormalities. CT/CTA Chest W/WO Contrast IMPRESSION: No evidence of pulmonary embolism. Reading Location: [facility]
--- NOTE | 2024-12-31 12:28 | EDS_ITS ---
HPI History of Present Illness Chief Complaint: Chest Pain Detail of Chief Complaint: Chest and back pain Informant: patient Narrative Narrative: Patient presents to the emergency department with complaint of pain in his left lower back and then also some intermittent chest pain that is sharp and stabbing. Does not seem to be positional or with deep breath. Patient states that he has had these symptoms for over 2 weeks. He has history 2 years ago of a PE and he presented similarly. He was seen by his primary care physician today and referred to the emergency department. He denies any exertional symptoms. He currently does not have pain. Patient is not currently anticoagulated [facility] Medical History (Updated 12/31/24 @ 14:[address] Godfrey Molina DO) Hemorrhoid Pulmonary embolism Anxiety Depression GERD (gastroesophageal reflux disease) Non-smoker Hypertension Hypothyroidism Home Medications Medication Instructions Recorded Last Taken Type NK 12/31/24 Unknown History Allergy/AdvReac Type Severity Reaction Status Date / Time acetaminophen (From AdvReac Upset Verified 03/13/24 17:54 Darvocet-N) Stomach propoxyphene (From AdvReac Upset Verified 03/13/24 17:54 Darvocet-N) Stomach Surgical History (Updated 03/13/24 @ 18:32 by Mara Shepard) History of rectal surgery History of rotator cuff surgery Social History Smoking Status: Never smoker ROS ROS ED Review of Systems ROS Unobtainable: other Constitutional Constitutional ED: Reports lethargy; Denies chills, fever(s), sweats or weight loss Eyes Eyes: Denies blurry vision, change in vision or diplopia ENT ENT ED: Denies rhinorrhea or sore throat Cardiovascular Cardiovascular: Reports chest pain; Denies orthopnea or racing heartbeat Respiratory/Chest Respiratory/Chest: Denies cough, dyspnea, dyspnea on exertion, orthopnea or sputum Gastrointestinal Gastrointestinal: Denies abdominal pain, diarrhea, nausea or vomiting Genitourinary Genitourinary ED: Denies dysuria, hematuria or urinary frequency Musculoskeletal Musculoskeletal: Reports back pain; Denies arthralgias, myalgias or neck pain Integumentary Denies abscess, Abrasions or rash Neurologic Neurologic: Denies headache(s) or weakness Psychiatric Psychiatric: Denies anxiety, depression or suicidal thoughts Endocrine Endocrinology: Denies polydipsia, polyphagia or polyuria Hematologic/Lymphatic Hematologic/Lymphatic: Denies easy bleeding, easy bruising or lymphadenopathy Allergic/Immunologic Allergic/Immunologic ED: Denies mouth swelling, tongue swelling or urticaria EXAM Physical Exam Const Vital Signs: 12/31/24 12:11 12/31/24 12:18 12/31/24 13:10 Temperature 97.8 F Temperature Source Oral Pulse Rate 58 L 49 L Respiratory Rate 16 14 Respiratory Effort Normal Blood Pressure 168/114 H 157/104 H Blood Pressure Mean 132 121 Pulse Ox 98 97 Oxygen Delivery Method Room Air Room Air 12/31/24 14:00 Temperature Temperature Source Pulse Rate 54 L Respiratory Rate 16 Respiratory Effort Blood Pressure 148/101 H Blood Pressure Mean 116 Pulse Ox 97 Oxygen Delivery Method Room Air MDM MDM MDM Narrative Medical decision making narrative: Patient presents with left sided back pain off-and-on for several weeks. History of PE and felt similarly with his PE 2 years ago. He has been exercising but does not recall injuring himself in any way. He has also had some intermittent left chest discomfort that is sharp and stabbing and does not last very long. No significant shortness of breath. No radiation of the pain. His PCP saw him today and referred him to the ER to rule out PE. Clinically he looks well. IV line established. EKG obtained on arrival showed a sinus rhythm with a ventricular rate of 53 bpm with bigeminy. Patient CBC with differential showed a white count of 8.4 with hemoglobin 16 and platelet count 208. Chemistr ies unremarkable. Troponin was 8. CTA of the chest was obtained and was negative for PE or acute process. This point patient will be discharged to home. Etiology of his back pain unclear. Recommended ibuprofen for discomfort and follow-up with his primary care physician. Lab Data Attestation: I reviewed the patient's lab results. Labs: Laboratory Results - last 24 hr 12/31/24 12:40 WBC 8.4 RBC 5.49 Hgb 16.0 Hct 45.7 MCV 83.2 MCH 29.1 MCHC 35.0 RDW Std Deviation 39.4 RDW Coeff of Barney 12.9 Plt Count 208 MPV 9.1 Immature Gran % (Auto) 0.200 Neut % (Auto) 62.8 Lymph % (Auto) 26.0 Phillips % (Auto) 10.2 H Eos % (Auto) 0.4 Baso % (Auto) 0.4 Absolute Neuts (auto) 5.3 Absolute Lymphs (auto) 2.19 Nucleated RBC % 0 Sodium 142 Potassium 3.9 Chloride 105 Carbon Dioxide 27.3 Anion Gap 9 BUN 16 Creatinine 0.92 Estim Creat Clear Calc 85.55 Est GFR (MDRD) Non-Af 93 BUN/Creatinine Ratio 17.4 Glucose 92 Calcium 9.2 Troponin T High Sens 8 Radiography Diagnostic Testing: Clinical Impression(s) from Imaging Studies Chest CTA 12/31/24 12:27 IMPRESSION: No evidence of pulmonary embolism. Reading Location: [facility] EKG Initial EKG: Attestation: I personally reviewed and interpreted this EKG as follows: Comments: Sinus rhythm with ventricular rate of 53 bpm with bigeminy Discharge Plan Triage Chief Complaint: Chest Pain ED Provider: Godfrey Molina Dx/Rx/DC Orders Clinical Impression: Back pain, Chest pain Instructions: ED Back Pain (Acute or Chronic), ED Chest Pain, Uncertain Cause Prescriptions: No Action NK Primary Care Provider: Kevin Rossi Referrals: Kevin Rossi MD [Primary Care Provider, Medical] - 3-5 Days Print Language: Armenian Disposition Disposition: Home, Self Care
[2024-12-31 12:50] LABS: Hematocrit 45.7 % (40-54); Hemoglobin 16.0 g/dL (13.0-16.5); Immature Granulocytes Count 0.020 X10^3/uL (0.0-0.0); Mean Corp Hgb Conc 35.0 g/dL (32-36); Mean Corpuscular Volume 83.2 fL (80-94); Mean Platelet Vol. 9.1 fl (6.2-12.0); NRBC Flagged by Analyzer 0 % (0-5); Platelet Count 208 K/mm3 (150-450); RBC Distribution Width CV 12.9 % (11.6-14.6); RBC Distribution Width SD 39.4 fl (35.1-43.9); Red Blood Count 5.49 M/mm3 (4.6-6.2); White Blood Count 8.4 K/mm3 (4.4-11.0)
--- OUTSIDE RECORDS SUMMARY | 2024-12-31 12:52 | XMS RPT_ITS | CCD ---
Author Organization [facility] Care Team Providers Care Shell Molder Name Role Phone CARRINGTON HADDAD Unavailable Unavailable CARRINGTON HADDAD Unavailable Unavailable Errol Cary Unavailable Unavailable CARRINGTON HADDAD Unavailable Unavailable CARRINGTON HADDAD Unavailable Unavailable Errol Cary Unavailable Errol Cary MD Primary Care Provider Errol Cary MD Primary Care Provider Errol Cary MD Primary Care Provider [phone] Errol Cary MD Primary Care Provider Chago Hernández Attending Halina Cary, Dr. Errol Sim Primary Care Unavail able Priscilla Booker Attending Unavailable Errol Cary Care Unavailable MARY PARKER Referring Unavailable Errol Cary MD Primary Care Provider LEWIS, SUSAN Y Referring Unavailable ERROL CARY Primary Care Unavailable ERROL CARY Primary Care Unavailable LEWIS, SUSAN Y Referring Unavailable ERROL CARY Primary Care Unavailable LEWIS, SUSAN Y Referring Unavailable Errol Cary MD Primary Care Provider TEO KAMINSKI Attending Unavailable ERROL CARY Primary Care Unavailable TEO KAMINSKI Attending Unavailable ERROL CARY Primary Care Unavailable GORDY, TEO Attending Unavailable ERROL CARY Primary Care Unavailable TEO KAMINSKI Attending Unavailable ERROL CARY Primary Care Unavailable TEO KAMINSKI Attending Unavailable ERROL CARY Primary Care Unavailable ZHEN FRANKLIN Admitting Unavailable ZHEN FRANKLNI Attending Unavailable ERROL CARY Primary Care Unavailable GORDY, TEO Attending Unavailable RAEANN, ERROL J Primary Care Unavailable TEO KAMINSKI Attending Unavailable RAEANN, ERROL J Primary Care Unavailable Haagen BICYCLE SUBASSEMBLER.WAREHOUSE DISTRIBUTION MANAGER, Lauren Unavailable Suppan BICYCLE SUBASSEMBLER.WAREHOUSE DISTRIBUTION MANAGER, Aisha A Unavailable [phone] NAHUN GUSTAFSON Admitting Unavailabl e BRANDSTETTER, NAHUN Attending Unavailabl e BRANDSTETTER, NAHUN Referring Unavailabl e RAEANN, ERROL J Primary Care Unavailable JOANASTETTER, NAHUN Attending Unavailabl e RAEANN, ERROL J Primary Care Unavailable BRANDSTETTER, NAHUN Attending Unavailabl e JAIMIE, YAKOV P Referring Unavailable RAEANN, ERROL J Primary Care Unavailable KALKA, GIA Referring Unavailable RAEANN, ERROL J Primary Care Unavailable KALKA, GIA Referring Unavailable RAEANN, ERROL J Primary Care Unavailable KALKA, GIA Referring Unavailable RAEANN, ERROL J Primary Care Unavailable Suppan BICYCLE SUBASSEMBLER.WAREHOUSE DISTRIBUTION MANAGER, Aisha A Unavailable Raeann, Errol Primary Care Unavailable Waqar Martin Attending Unavailabl e RAEANN, ERROL J Referring Unavailable RAEANN, ERROL J Primary Care Unavailable JAIMIE, YAKOV P Attending Unavailable RAEANN, ERROL J Primary Care Unavailable KALKA, GIA Attending Unavailable JAIMIE, YAKOV P Referring Unavailable RAEANN, ERROL J Primary Care Unavailable DAVID FONTENOT Attending Unavaila ble KALKA, GIA Referring Unavailable RAEANN, ERROL J Primary Care Unavailable JAIMIE, YAKOV P Attending Unavailable JAIMIE, YAKOV P Referring Unavailable RAEANN, ERROL J Primary Care Unavailable JAIMIE, YAKOV P Referring Unavailable RAEANN, ERROL J Primary Care Unavailable RIA PULIDO Attending Unavailable JAIMIE, YAKOV P Referring Unavailable RAEANN, ERROL J Primary Care Unavailable RAEANN, ERROL J Attending Unavailable RAEANN, ERROL J Primary Care Unavailable Allergies Allergy Classification Reported Allergen(s) Allergy Type Date of Onset Reaction(s) Facility (20 sources) Angiotensin Converting Enzyme (Bakari) Inhibitors; Translations: [BAKARI INHIBITORS] Propensity to adverse reactions (disorder) 7 Cough [facility] (20 sources) PROPOXYPHENE N-ACETAMINOPHEN; Translations: [PROPOXYPHENE N-ACETAMINOPHEN] Propensity to adverse reactions (disorder) 7 GI Upset [facility] (2 sources) Acetaminophen Drug Allergy 2 Upset Stomach [facility] (2 sources) Propoxyphene Drug Allergy 2 Upset Stomach [facility] (1 source) Acetaminophen Drug Allergy 5 [facility] (1 source) Propoxyphene Drug Allergy 5 [facility] Medications Current Medications Medication Drug Class(es) Dates Sig (Normalized) Sig (Original) aluminum hydroxide 40 mg/ml / magnesium hydroxide 40 mg/ml / simethicone 4 mg/ml oral suspension (1 source) Start: aluminum & magnesium hydroxide-simethicone (MAALOX) 200-200-20 MG/5ML suspension 30 mL atropine sulfate 0.025 mg / diphenoxylate hydrochloride 2.5 mg oral tablet (1 source) Anticholinergic , Cholinergic Muscarinic Antagonist, Antidiarrheal Start: diphenoxylate-atropine (LOMOTIL) 2.5-0.025 MG per tablet 1 tablet bisacodyl 10 mg rectal suppository (1 source) Stimulant Laxative Start: bisacodyl (DULCOLAX) suppository 10 mg bismuth subsalicylate 262 mg chewable tablet (7 sources) Bismuth Start: End: take 2 tablets by mouth four times daily bismuth subsalicylate (PEPTO-BISMOL) 262 mg chewable tablet Take 2 tablets by mouth four times daily for 10 days. 80 tablet 04/11/2024 Active calcium carbonate 500 mg chewable tablet (1 source) Start: calcium carbonate (TUMS) chewable tablet 1,000 mg carboxymethylcellulose sodium 5 mg/ml ophthalmic solution (1 source) Start: carboxymethylcellulose PF (REFRESH PLUS) 0.5 % ophthalmic solution 2 drop cyclobenzaprine hydrochloride 5 mg oral tablet (20 sources) Muscle Relaxant Start: cyclobenzaprine (FLEXERIL) tablet 5 mg Start: 07-24-2021 End: 01-28-2022 cyclobenzaprine (FLEXERIL) 1 0 mg tablet Take 1/2 - 1 tablet every 8 hours as needed for pain 10 tablet 0 07/24/2021 01/28/2022 Discontinued Comment on above: Take 1/2 - 1 tablet every 8 hours as needed for pain Dexamethasone (1 source) Corticosteroid Start: 2021 End: 2021 dexamethasone (DECADRON) tablet 6 mg dextromethorphan hydrobromide 2 mg/ml / guaiFENesin 20 mg/ml oral suspension (1 source) Uncompetitive P-whauxy-N-aspartate Receptor Antagonist, Sigma-1 Agonist Start: 2021 guaiFENesin-dextrom ethorphan (ROBITUSSIN DM) 100-10 MG/5ML syrup 5 mL diclofenac sodium 0.01 mg/mg topical gel (20 sources) Nonsteroidal Anti-inflammatory Drug Start: 2022 End: 2022 apply 4 g topically every six hours as needed diclofenac (VOLTAREN) 1 % topical gel Apply 4 g to affected area four times daily as needed (for pain). As Directed. 450 g 2 08/04/2022 Active Comment on above: Apply 4 g to affecte d area four times daily as needed (for pain). As Directed. doxycycline hyclate 100 mg oral capsule (2 sources) Tetracycline-class Drug Start: 2024 End: 2024 take 1 capsule by mouth twice daily doxycycline hyclate (VIBRAMYCIN) 100 mg capsule Take 1 capsule by mouth two times a day for 10 days. 20 capsule 04/11/2024 04/21/2024 Active hydroCHLOROthiazide 25 mg / triamterene 37.5 mg oral tablet (20 sources) Potassium-sparing Diuretic, Thiazide Diuretic Start: 2021 End: 2025 take 1 tablet by mouth once daily triamterene-hydroCH LOROthiazide (MAXZIDE-25MG) 37.5-25 mg per tablet Indications: Essential hypertension, benign Take 1 tablet by mouth once daily. 90 tablet 1 04/27/2024 04/27/2025 Active Start: 10-27-2021 take 1 tablet by mouth once daily triamterene-hydroCHLOROthiazide (MAXZIDE -25) 37.5-25 MG per tablet Take 1 tablet by mouth daily 30 tablet 3 10/27/2021 Active Start: 10-22-2021 triamterene-hy droCHLOROthiazide (MAXZIDE-25) 37.5-25 MG per tablet 1 tablet Start: 10-21-2021 take 1 tablet by mouth once daily Triamterene-Hydrochlorothiazid Active 1 TABLET PO DAILY October 20, 2021 11:00pm Start: 10-03-2020 End: 11-04-2021 take 1 tablet by mouth once daily triamterene-hydroCHLOROthiazide (MAXZIDE -25MG) 37.5-25 mg per tablet Indications: Essential hypertension, benign Take 1 tablet by mouth once daily. 90 tablet 3 10/03/2020 11/04/2021 Discontinued Comment on above: Take 1 tablet by domingo th once daily. hydrocortisone 25 mg/ml topical cream (12 sources) Corticosteroid Start: 11-25-2023 End: 12-25-2023 hydrocortisone (ANUSOL-HC) 2.5 % rectal cream Indications: External hemorrhoids by RECTAL route two times a day as needed. 28 g 1 11/25/2023 12/25/2023 Active Start: 06-02-2022 End: 06-16-2022 hydrocortisone (ANUSOL-HC) 2 .5 % rectal cream Indications: Anal bleeding by RECTAL route twice daily for 14 days. 28 g 06/02/2022 06/16/2022 Comment on above: by RECTAL route twic e daily for 14 days. losartan potassium 100 mg oral tablet (20 sources) Angiotensin 2 Receptor Ayanna Start: 11-04-2021 End: 04-27-2025 take 1 tablet by mouth once daily losartan (COZAAR) 100 mg tablet Indications: Essential hypertension, benign Take 1 tablet by mouth once daily. 90 tablet 1 04/27/2024 04/27/2025 Active Start: 10-27-2021 take 1 tablet by domingo th once daily losartan (COZAAR) 100 MG tablet Take 1 tablet by mouth daily 30 tablet 3 10/27/2021 Active Start: 10-22-2021 losartan (COZA AR) tablet 100 mg Start: 10-03-2020 End: 11-04-2021 take 100 mg by mouth once daily Losartan Active 100 MG PO DAILY October 20, 2021 11:00pm Comment on above: Take 1 tablet by domingo th once daily. melatonin 10 mg oral capsule (1 source) Start: 10-23-19 melatonin capsule 10 mg metroNIDAZOLE 250 mg oral tablet (2 sources) Nitroimidazole Antimicrobial Start: 04-11-19 End: 04-22-19 take 1 tablet by mouth four times daily metroNIDAZOLE (FLAGYL) 250 mg tablet Take 1 tablet by mouth four times daily for 10 days. 40 tablet 04/11/2024 04/21/2024 Active miconazole nitrate 0.02 mg/mg topical powder (1 source) Azole Antifungal Start: 10-23-19 miconazole (MICOTIN) 2 % powder morphine sulfate 15 mg extended release oral tablet (20 sources) Opioid Agonist Start: 10-30-19 End: 10-09-19 take 1 tablet by mouth once daily as needed for pain morphine SR (MS CONTIN) 15 mg 12 hr tablet Indications: Chronic pain syndrome Take 1 tablet by mouth once daily as needed for pain for up to 30 days. for Pain Patient should start on October 30, 2023. 30 tablet 10/30/2023 10/09/2023 Discontinued Start: 04-15-2021 End: 11-29-2023 take 1 tablet by mouth once daily as needed for pain morphine SR (MS CONTIN) 15 mg 12 hr tablet Indications: Osteoarthritis of both shoulders, unspecified osteoarthritis type , Chronic pain syndrome , Rotator cuff impingement syndrome, unspecified laterality Take 1 tablet by mouth once daily as needed for pain for up to 30 days. for Pain Do not start before June 07, 2022. 30 tablet 06/07/2022 07/01/2022 Discontinued Comment on above: Take 1 tablet by domingo th once daily as needed for pain for up to 30 days. for Pain Do not start before August 13, 2021. Take by mouth. Take 1 tablet by domingo th once daily as needed for pain for up to 30 days. for Pain Take 1 tablet by domingo th once daily as needed for pain for up to 30 days. for Pain Do not start before October 09, 2021. Take 1 tablet by domingo th once daily as needed for pain for up to 30 days. for Pain Do not start before November 08, 2021. Take 1 tablet by domingo th once daily as needed for pain for up to 30 days. for Pain Do not start before December 08, 2021. Take 1 tablet by domingo th once daily as needed for pain for up to 30 days. for Pain Do not start before January 07, 2022. Take 1 tablet by domingo th once daily as needed for pain for up to 30 days. for Pain Do not start before February 07, 2022. Take 1 tablet by domingo th once daily as needed for pain for up to 30 days. for Pain Do not start before March 09, 2022. Take 1 tablet by domingo th once daily as needed for pain for up to 30 days. for Pain Do not start before April 08, 2022. Take 1 tablet by domingo th once daily as needed for pain for up to 30 days. for Pain Do not start before May 08, 2022. Take 1 tablet by domingo th once daily as needed for pain for up to 30 days. for Pain Do not start before June 07, 2022. Take 1 tablet by domingo th once daily as needed for pain for up to 30 days. for Pain Do not start before August 06, 2022. Take 1 tablet by domingo th once daily as needed for pain for up to 30 days. for Pain Do not start before September 05, 2022. Take 1 tablet by domingo th once daily as needed for pain for up to 30 days. for Pain Do not start before October 05, 2022. Take 1 tablet by domingo th once daily as needed for pain for up to 30 days. for Pain Do not start before November 04, 2022. Take 1 tablet by domingo th once daily as needed for pain for up to 30 days. for Pain Do not start before December 04, 2022. Take 1 tablet by domingo th once daily as needed for pain for up to 30 days. for Pain Do not start before January 03, 2023. Take 1 tablet by domingo th once daily as needed for pain for up to 30 days. for Pain Do not start before February 02, 2023. Take 1 tablet by domingo th once daily as needed for pain for up to 30 days. for Pain Do not start before March 04, 2023. Take 1 tablet by domingo th once daily as needed for pain for up to 30 days. for Pain Do not start before April 03, 2023. Take 1 tablet by domingo th once daily as needed for pain for up to 30 days. for Pain Do not start before May 03, 2023. naproxen 500 mg oral tablet (3 sources) Nonsteroidal Anti-inflammatory Drug Start: 07-24-2021 End: 08-07-2021 take 1 tablet by mouth twice daily at mealtime naproxen (NAPROSYN) 500 mg tablet Take 1 tablet by mouth twice daily with meals for 14 days. Take with food. 28 tablet 0 07/24/2021 08/07/2021 Active Comment on above: Take 1 tablet by [facility] twice daily with meals for 14 days. Take with food. Diboll-3 Fatty Acids (Diboll 3) Capsule (2 sources) Start: 10-21-2021 take 1 capsule by mouth once daily Diboll-3 Fatty Acids (Diboll 3) Capsule Active 500 MG PO DAILY October 20, 2021 11:00pm Start: 10-21-2021 take 1 capsule by [facility] once daily Diboll-3 Fatty Acids (Diboll 3) Capsule Active 500 MG PO DAILY October 21, 2021 12:00am omeprazole 20 mg delayed release oral capsule (20 sources) Proton Pump Inhibitor Start: 04-11-2024 End: 04-21-2024 take 1 capsule by mouth twice daily omeprazole (PRILOSEC) 20 mg capsule Take 1 capsule by mouth two times a day for 10 days. 20 capsule 04/11/2024 Active Start: 01-05-2024 take 1 capsule by [facility] once daily omeprazole (PRILOSEC) 40 mg capsule Take 1 capsule by mouth once daily. 30 capsule 3 01/05/2024 Active Start: 10-16-2021 End: 04-16-2023 take 20 mg by mouth once daily before breakfast Omeprazole Active 20 MG PO DAILY October 20, 2021 11:00pm BEFORE BREAKFAST Comment on above: Take 1 capsule by [facility] daily before breakfast. 1/2 hr before meal. TAKE 1 CAPSULE BY [facility] 30 MINUTES BEFORE BREAKFAST ondansetron (ZOFRAN-ODT) disintegrating tablet 4 mg (1 source) Start: 10-23-19 ondansetron (ZOFRAN-ODT) disintegrating tablet 4 mg oxyCODONE hydrochloride 5 mg oral tablet (20 sources) Opioid Agonist Start: 02-01-20 End: 02-05-20 take 1 tablet by mouth every six hours as needed for pain oxyCODONE IR (ROXICODONE) 5 mg immediate release tablet Indications: S/P hemorrhoidectomy Take 1 tablet by mouth every 6 hours as needed for pain for up to 4 days. 16 tablet 02/01/2024 02/05/2024 Active Start: 10-30-2023 End: 10-09-2023 take 1 tablet by mouth every eight hours as needed for pain oxyCODONE (ROXICODONE) 15 mg immediate release tablet Indications: Chronic pain syndrome Take 1 tablet by mouth every 8 hours as needed for pain for up to 30 days. Patient should start on October 30, 2023. 90 tablet 10/30/2023 10/09/2023 Discontinued Start: 08-06-2022 End: 11-29-2023 take 1 tablet by mouth every eight hours as needed for pain oxyCODONE (ROXICODONE) 15 mg immediate release tablet Indications: Chronic pain syndrome Take 1 tablet by mouth every 8 hours as needed for pain for up to 30 days. Patient should start on September 30, 2023. 90 tablet 09/30/2023 10/09/2023 Discontinued Start: 01-10-2022 End: 07-07-2022 take 1 tablet by mouth every eight hours as needed for pain oxyCODONE (ROXICODONE) 15 mg immediate release tablet Indications: Osteoarthritis of both shoulders, unspecified osteoarthritis type , Chronic pain syndrome , Rotator cuff impingement syndrome, unspecified laterality Take 1 tablet by mouth every 8 hours as needed for pain for up to 30 days. Do not start before June 07, 2022. 90 tablet 06/07/2022 07/01/2022 Discontinued Start: 01-10-2022 End: 01-08-2022 take 1 tablet by mouth every eight hours as needed for pain oxyCODONE (ROXICODONE) 15 mg immediate release tablet Indications: Rotator cuff impingement syndrome, unspecified laterality , Osteoarthritis of both shoulders, unspecified osteoarthritis type , Neck pain , Chronic pain syndrome Take 1 tablet by mouth every 8 hours as needed for pain for up to 30 days. Do not start before January 10, 2022. 90 tablet 0 01/10/2022 01/08/2022 Discontinued Start: 10-26-2021 End: 10-29-2021 take 1 tablet by mouth every six hours as needed for pain oxyCODONE (OXY-IR) 15 MG immediate release tablet Indications: Acute bilateral thoracic back pain Take 1 tablet by mouth every 6 hours as needed for Pain for up to 3 days. 12 tablet 0 10/26/2021 10/29/2021 Active Start: 10-22-2021 oxyCODONE (UNA ICODONE) immediate release tablet 15 mg Start: 10-21-2021 take 15 mg by mouth three times daily Oxycodone Active 15 MG PO THREE TIMES A DAY October 20, 2021 11:00pm Start: 08-13-2021 End: 02-09-2022 take 1 tablet by mouth every eight hours as needed for pain oxyCODONE (ROXICODONE) 15 mg immediate release tablet Indications: Rotator cuff impingement syndrome, unspecified laterality , Osteoarthritis of both shoulders, unspecified osteoarthritis type , Neck pain , Chronic pain syndrome Take 1 tablet by mouth every 8 hours as needed for pain for up to 30 days. Do not start before January 10, 2022. 90 tablet 0 01/10/2022 02/09/2022 Active End: 08-05-2021 oxyCODONE (ROXICODONE) 15 mg immediate release tablet Take 20 mg by mouth every 6 hours as needed. 0 08/05/2021 Discontinued Comment on above: Take 20 mg by mouth every 6 hours as needed. Take 1 tablet by domingo th every 8 hours as needed for pain for up to 30 days. Do not start before August 13, 2021. Take 1 tablet by domingo th every 8 hours as needed for pain for up to 30 days. Do not start before September 12, 2021. Take 1 tablet by domingo th every 8 hours as needed for pain for up to 30 days. Do not start before October 12, 2021. Take 1 tablet by domingo th every 8 hours as needed for pain for up to 30 days. Do not start before November 11, 2021. Take 1 tablet by domingo th every 8 hours as needed for pain for up to 30 days. Do not start before December 11, 2021. Take 1 tablet by domingo th every 8 hours as needed for pain for up to 30 days. Do not start before January 10, 2022. Take 1 tablet by domingo th every 8 hours as needed for pain for up to 30 days. Do not start before February 07, 2022. Take 1 tablet by domingo th every 8 hours as needed for pain for up to 30 days. Do not start before March 09, 2022. Take 1 tablet by domingo th every 8 hours as needed for pain for up to 30 days. Do not start before April 08, 2022. Take 1 tablet by domingo th every 8 hours as needed for pain for up to 30 days. Do not start before May 08, 2022. Take 1 tablet by domingo th every 8 hours as needed for pain for up to 30 days. Do not start before June 07, 2022. Take 1 tablet by domingo th every 8 hours as needed for pain for up to 30 days. Do not start before August 06, 2022. Take 1 tablet by domingo th every 8 hours as needed for pain for up to 30 days. Do not start before September 05, 2022. Take 1 tablet by domingo th every 8 hours as needed for pain for up to 30 days. Do not start before October 05, 2022. Take 1 tablet by domingo th every 8 hours as needed for pain for up to 30 days. Do not start before November 04, 2022. Take 1 tablet by domingo th every 8 hours as needed for pain for up to 30 days. Do not start before December 04, 2022. Take 1 tablet by domingo th every 8 hours as needed for pain for up to 30 days. Do not start before January 03, 2023. Take 1 tablet by domingo th every 8 hours as needed for pain for up to 30 days. Do not start before February 02, 2023. Take 1 tablet by domingo th every 8 hours as needed for pain for up to 30 days. Do not start before March 04, 2023. Take 1 tablet by domingo th every 8 hours as needed for pain for up to 30 days. Do not start before April 03, 2023. Take 1 tablet by domingo th every 8 hours as needed for pain for up to 30 days. Do not start before May 03, 2023. Take 1 tablet by domingo th every 8 hours as needed for pain for up to 30 days. Completed/Discontinued Medications Medication Drug Class(es) Dates Sig (Normalized) Sig (Original) acetaminophen 325 mg / oxyCODONE hydrochloride 10 mg oral tablet (4 sources) Opioid Agonist End: 12-03-2022 oxyCODONE-acetami nophen (PERCOCET 10) 10-325 mg tablet [id number] 200 actuat albuterol 0.09 mg/actuat metered dose inhaler (6 sources) beta2-Adrenergic Agonist Start: 02-01-2024 End: 02-02-2024 1-2 Puff, INHALATION, NEEDED, 1 dose, Starting on Thu02/01/24 at 1650, Until Thu02/02/24 at 0303, wheezing/shortnes s of breath, SHAKE WELL BEFORE USING -Pharmaceutical Waste: Aerosol-, Recovery or Phase I (only) Start: 10-26-2021 take 2 puff(s) by inhalation every four hours as needed for wheezing albuterol sulfate HFA (PROVENTIL;VENTOLIN;PROAIR) 108 (90 Base) MCG/ACT inhaler Inhale 2 puffs into the lungs every 4 hours as needed for Wheezing 18 g 3 10/26/2021 Active Start: 10-22-2021 End: 10-24-2021 albuterol sulfate HFA (PROVENTIL;VENTOLIN;PROAIR) 108 (90 Base) MCG/ACT inhaler 2 puff Start: 10-22-2021 albuterol (PRO VENTIL) nebulizer solution 2.5 mg apixaban 5 mg oral tablet (20 sources) Factor Xa Inhibitor Start: 11-04-2021 End: 05-03-2022 take 1 tablet by mouth twice daily apixaban (ELIQUIS) 5 mg tab(s) Indications: Other acute pulmonary embolism without acute cor pulmonale (HCC) Take 1 tablet by mouth twice daily. 60 tablet 5 11/04/2021 04/16/2022 Discontinued Start: 10-29-2021 take 1 tablet by domingo th twice daily apixaban (ELIQUIS) 5 MG TABS tablet Take 1 tablet by mouth 2 times daily 60 tablet 1 10/29/2021 Active Start: 10-22-2021 End: 10-29-2021 apixaban (ELIQUIS) tablet 10 mg Start: 10-21-2021 End: 11-25-2023 apixaban (ELIQUIS) 5 mg tab( s) Take by mouth. 10/21/2021 11/25/2023 Discontinued (Discontinued by Patient) Start: 10-21-2021 End: 10-29-2021 take 2 tablets by mouth twice daily apixaban (ELIQUIS) 5 MG TABS tablet Take 2 tablets by mouth 2 times daily for 5 doses 10 tablet 0 10/26/2021 10/29/2021 Active Comment on above: Take 1 tablet by domingo twice daily. Take by mouth. calcium chloride 0.0014 meq/ml / potassium chloride 0.004 meq/ml / sodium chloride 0.103 meq/ml / sodium lactate 0.028 meq/ml injectable solution (1 source) Start: End: take 5-30 mL intravenously every hour 5-30 mL/hr, INTRAVENOUS, CONTINUOUS, Starting on Thu02/01/24 at 1700, Until Thu02/02/24 at 0303, KVO, Recovery or Phase I (only) diphenhydrAMINE (1 source) Histamine-1 Receptor Antagonist Start: End: take 50 mg intravenously every four hours as needed 50 mg, INTRAVENOUS, EVERY 4 HOURS NEEDED, 2 doses, Starting on Thu02/01/24 at 1650, Until Thu02/02/24 at 0303, itching/rash, May repeat 25 mg IV X1 AFTER 4 HOURS for continued puritis, Recovery or Phase I (only) 1 ml fentaNYL 0.05 mg/ml injection (1 source) Opioid Agonist Start: End: 25 mcg, INTRAVENOUS, EVERY 5 MINUTES NEEDED, 4 doses, Starting on Thu02/01/24 at 1650, Until Thu02/02/24 at 0303, FIRST LINE THERAPY for pain score 1 or greater, Every 5 minutes. Use if patient unable to tolerate oral therapy. Hold for respiratory rate less than 12 Max total dose: 100 mcg, Recovery or Phase I (only) fish oil/borage/flax/om3,6, 9 1 (OMEGA 3-6-9 ORAL) (6 sources) End: fish oil/borage/flax/om3 ,6,9 1 (OMEGA 3-6-9 ORAL) Take 500 mg by mouth once daily. 0 11/06/2021 Discontinued fish oil/borage/ flax/om3,6,9 1 (OMEGA 3-6-9 ORAL) Take 500 mg by mouth once daily. 0 Active Comment on above: Take 500 mg by mouth once daily. FLUoxetine 40 mg oral capsule (2 sources) Serotonin Reuptake Inhibitor End: 11-28-2022 FLUoxetine (PROZAC) 40 mg capsule gabapentin 300 mg oral capsule (20 sources) Anti-epileptic Agent Start: 10-26-2021 End: 11-25-2021 take 0.5 tablet by mouth three times daily gabapentin (NEURONTIN) 600 MG tablet Take 0.5 tablets by mouth 3 times daily for 30 days. 45 tablet 0 10/26/2021 11/25/2021 Active Start: 10-22-2021 gabapentin (NE URONTIN) tablet 300 mg Start: 08-10-2021 End: 11-25-2023 gabapentin (NEURONTIN) 300 m g capsule Take by mouth. 10/21/2021 11/25/2023 Discontinued (Discontinued by Patient) Start: 03-01-2021 End: 08-05-2021 take 1 capsule by mouth three times daily gabapentin (NEURONTIN) 300 mg capsule Take 300 mg by mouth three times daily. 0 03/01/2021 08/05/2021 Discontinued Comment on above: Take 300 mg by mouth three times daily. Take 1 capsule by mo [facility] three times daily for 30 days. Do not start before August 10, 2021. Take 1 capsule by mo ut three times daily for 30 days. Take 1 capsule by mo ut three times daily for 30 days. Do not start before October 10, 2021. Take 1 capsule by mo [facility] three times daily for 30 days. Do not start before November 09, 2021. Take by mouth. 1 ml hydrALAZINE hydrochloride 20 mg/ml injection (1 source) Arteriolar Vasodilator Start: 02-01-20 End: 02-02-20 5 mg, INTRAVENOUS, EVERY 10 MINUTES NEEDED, 4 doses, Starting on Thu02/01/24 at 1650, Until Thu02/02/24 at 0303, Give for blood pressure of:, Contact anesthesia provider if given. For systolic BP greater than 200 or diastolic BP greater than 100., Administer IV push over 3-5 minutes., Recovery or Phase I (only) 0.5 ml HYDROmorphone hydrochloride 1 mg/ml prefilled syringe (1 source) Opioid Agonist Start: 02-01-20 End: 02-02-20 0.25 mg, INTRAVENOUS, EVERY 10 MINUTES NEEDED, 4 doses, Starting on Thu02/01/24 at 1650, Until Thu02/02/24 at 0303, SECOND LINE THERAPY for pain score 1 or greater, Every 10 minutes. Use if patient unable to tolerate oral therapy. Hold for respiratory rate less than 12 Max total dose: 2 mg Caution: IV hydromorphone is approximately 8 times MORE POTENT than IV morphine. For example, hydromorphone 1mg IV = morphine 8mg IV, Recovery or Phase I (only) ibuprofen 800 mg oral tablet (13 sources) Nonsteroidal Anti-inflammatory Drug Start: 08-14-19 End: 11-05-19 take 1 tablet by mouth every twelve hours as needed ibuprofen (MOTRIN) 800 mg tablet Take 800 mg by mouth twice daily as needed. 0 08/13/2021 11/04/2021 Discontinued Comment on above: Take 800 mg by mouth twice daily as needed. lamoTRIgine 150 mg oral tablet (20 sources) Mood Stabilizer, Anti-epileptic Agent Start: 08-23-19 End: 11-25-19 lamoTRIgine (LAMICTAL) 150 mg tablet Take by mouth. 10/21/2021 11/25/2023 Discontinued (Discontinued by Patient) Start: 03-27-2021 End: 09-17-2021 take 1 tablet by mouth once daily in the evening lamoTRIgine (LAMICTAL) 100 mg tablet Take 1 tablet by mouth every evening. 90 tablet 0 06/19/2021 08/22/2021 Discontinued (Course of therapy completed) Comment on above: Take 1 tablet by domingo th every evening. Take 1 tablet by domingo th once daily. TAKE 1 TABLET BY DOMINGO TH ONCE DAILY Take by mouth. levothyroxine sodium 0.025 mg oral tablet (20 sources) l-Thyroxine Start: 05-29-19 End: 10-17-19 take 1 tablet by mouth once daily for thyroid dysfunction levothyroxine (LEVOXYL) 25 mcg tablet Indications: Hypothyroidism, acquired Take 1 tablet by mouth once daily. Take on empty stomach. For Thyroid 30 tablet 2 10/08/2021 10/16/2021 Discontinued Comment on above: Take 1 tablet by domingo th once daily. Take on empty stomach. For Thyroid lidocaine 25 mg/ml / prilocaine 25 mg/ml topical cream (20 sources) Antiarrhythmic, Amide Local Anesthetic Start: 12-04-19 End: 08-05-19 23 lidocaine-prilocaine (EMLA) 2.5-2.5 % cream APPLY TO THE AFFECTED AREA(S) THREE TIMES DAILY NEEDED FOR PAIN. 30 g 4 01/28/2022 08/04/2022 Discontinued Start: 06-13-2021 End: 12-02-2021 lidocaine-prilocaine (EMLA) 2.5-2.5 % cream APPLY TO THE AFFECTED AREA(S) THREE TIMES DAILY NEEDED FOR PAIN. 0 06/13/2021 12/02/2021 Discontinued Comment on above: APPLY TO THE AFFECTE D AREA(S) THREE TIMES DAILY NEEDED FOR PAIN. lisinopril 10 mg oral tablet (4 sources) Angiotensin Converting Enzyme Inhibitor End: 12-04-19 lisinopril (ZESTRIL) 10 mg tablet methocarbamol 750 mg oral tablet (20 sources) Muscle Relaxant Start: 03-03-19 End: 11-25-19 take 1 tablet by mouth three times daily as needed methocarbamol (ROBAXIN-750) 750 mg tablet Take 1 tablet by mouth three times a day as needed. 90 tablet 1 09/29/2023 11/25/2023 Discontinued (Discontinued by Patient) Start: 08-04-2022 End: 01-29-2023 take 1 tablet by mouth three times daily as needed methocarbamol (ROBAXIN-750) 750 mg tablet Take 1 tablet by mouth three times a day as needed. 90 tablet 0 12/30/2022 Active Comment on above: Take 1 tablet by domingo th three times daily as needed. Take 1 tablet by domingo th three times a day as needed. naloxone hydrochloride 40 mg/ml nasal spray (20 sources) Opioid Antagonist Start: 08-05-2021 End: 09-09-2021 naloxone 4 mg/actuation nasal spray (NARCAN) Use 1 spray in one nostril as needed for overdose. May repeat every 2 to 3 min in alternating nostrils until medical assistance is available 1 Each 0 08/05/2021 09/09/2021 Discontinued (Duplicate Entry) Start: 04-26-2018 naloxone 4 mg/ actuation nasal spray (NARCAN) Comment on above: Use 1 spray in one n ostril as needed for overdose. May repeat every 2 to 3 min in alternating nostrils until medical assistance is available Narcan 4 mg/actuatio n spray,non-aerosol naloxone 4 mg/actuation nasal spray (NARCAN) (10 sources) Start: 04-26-2018 End: 11-25-2023 naloxone 4 mg/actuation nasal spray (NARCAN) 04/26/2018 11/25/2023 Discontinued (Discontinued by Patient) Start: 04-26-2018 naloxone 4 mg/ actuation nasal spray (NARCAN) 04/26/2018 Active Start: 04-26-2018 naloxone 4 mg/ actuation nasal spray (NARCAN) 2 ml ondansetron 2 mg/ml injection (2 sources) Serotonin-3 Receptor Antagonist Start: 02-01-2024 End: 02-02-2024 4 mg, INTRAVENOUS, NEEDED, 1 dose, Starting on Thu02/01/24 at 1650, Until Thu02/02/24 at 0303, Nausea/Vomiting - First Line - Parenteral, Give IV push over 2 minutes. If still nauseated 10 min after first line antiemetic dose, proceed to second line antiemetic, Recovery or Phase I (only) perflutren lipid microspheres 1.3 mL in NaCl (PF) 0.9% 10 mL injection (DEFINITY) (20 sources) Start: 05-27-2021 End: 08-26-2022 perflutren lipid microspheres 1.3 mL in NaCl (PF) 0.9% 10 mL injection (DEFINITY) polyethylene glycol 3350 13435 mg powder for oral solution (20 sources) Osmotic Laxative Start: 11-06-2021 End: 04-16-2022 polyethylene glycol 3350 (MIRALAX) 17 gram/dose powder Indications: Constipation due to opioid therapy Dissolve dose in 4 - 8 ounces of liquid and take as directed. 765 g 1 11/06/2021 04/16/2022 Discontinued Start: 10-22-2021 17 g, Oral, DA TOMÁS PRN, Starting on Thu10/22/21 at 0736, Until Discontinued, Constipation First line therapy for constipation Comment on above: Dissolve dose in 4 - 8 ounces of liquid and take as directed. polyethylene glycol 3350 [id number] mg / potassium chloride 2970 mg / sodium bicarbonate 6740 mg / sodium chloride 5860 mg / sodium sulfate 42988 mg powder for oral solution (2 sources) Osmotic Laxative End: 11-28-2022 peg 3350-Electrolytes (GOLYTELY) 236-22.74-6.74 -5.86 gram suspension 24 hr QUEtiapine 150 mg extended release oral tablet (20 sources) Atypical Antipsychotic Start: 08-22-2021 End: 11-25-2023 QUEtiapine XR (SEROQUEL XR) 150 mg Tb24 Take by mouth. 10/21/2021 11/25/2023 Discontinued (Discontinued by Patient) Start: 03-27-2021 End: 09-17-2021 take 1 tablet by mouth three times daily QUEtiapine (SEROQUEL) 50 mg tablet Take 1 tablet by mouth three times daily. 270 tablet 0 06/19/2021 08/22/2021 Discontinued (Side Effects) Comment on above: Take 1 tablet by domingo th three times daily. Take 1 tablet by domingo th daily at bedtime. Take by mouth. risperiDONE 0.5 mg oral tablet (19 sources) Atypical Antipsychotic Start: 3 End: 3 take 1 tablet by mouth twice daily risperiDONE (RISPERDAL) 0.5 mg tablet Take 1 tablet by mouth twice daily. 60 tablet 2 04/02/2022 06/03/2022 Discontinued Start: 01-29-2022 End: 04-02-2022 take 1 tablet by mouth once daily at bedtime risperiDONE (RISPERDAL) 0.5 mg tablet Take 1 tablet by mouth daily at bedtime. 30 tablet 2 01/29/2022 04/02/2022 Discontinued Comment on above: Take 1 tablet by domingo th daily at bedtime. Take 1 tablet by domingo th twice daily. 5 ml sodium chloride 9 mg/ml injection (20 sources) Start: 2 take 1 dose intravenously twice daily 5-40 mL, IntraVENous, EVERY 12 HOURS SCHEDULED (2 times per day), First dose on Thu10/22/21 at 0900, Until Discontinued For Line Patency: Peripheral IV = 5 mL; Midline or Central Line = 10 mL/lumen. & nbsp;If following IV push medication, administer flush at same rate as the IV push. Flush volume is determined by type of infusion therapy being given. Fo r non-viscous solutions use: Peripheral IV = 5 mL Midline or Central Line = 10 mL/lumen For viscous solutions (i.e. blood components, parenteral nutrition, contrast media, or after obtaining blood sample) use: Peripheral IV = 10 mL Midline or Central Line = 20 mL/lumen Start: 10-22-2021 IntraVENous, a t 5-250 mL/hr, PRN, if patient receiving piggyback infusions and maintenance fluids are not ordered OR KVO fluids to protect IV site / prevent frequent line interruptions/ long duration, Starting on Thu10/22/21 at 0736 For piggyback infusion, administer at same rate [...] or less into rate field of order. Start: 10-22-2021 0.9 % sodium c hloride bolus Start: 10-22-2021 take 5-40 mL intrave nously once as needed 5-40 mL, IntraVENous, PRN, Starting on Thu10/22/21 at 0736, Until Discontinued, Line Care, After every IV line use For Line Patency: Peripheral IV = 5 [...] Midline or Central Line = 20 mL/lumen Start: 05-27-2021 End: 08-26-2022 sodium chloride 0.9 % (flush ) 10 mL (BD POSIFLUSH) traMADol hydrochloride 50 mg oral tablet (2 sources) Opioid Agonist Start: 02-01-2024 End: 02-02-2024 take 1 tablet by mouth every eight hours as needed 50 mg, ORAL, EVERY 8 HOURS NEEDED, 2 doses, Starting on Thu02/01/24 at 1650, Until Thu02/02/24 at 0303, breakthrough pain, Recovery or Phase I (only) Start: 02-01-2024 End: 02-01-2024 take 1 tablet by mouth every six hours as needed for pain traMADol (ULTRAM) 50 mg tablet Indications: Anal fissure Take 1 tablet by mouth every 6 hours as needed for pain for up to 3 days. 12 tablet 02/01/2024 02/01/2024 Discontinued traZODone hydrochloride 50 mg oral tablet (15 sources) Serotonin Reuptake Inhibitor Start: 02-16-1969 End: 11-06-2021 traZODone (DESYREL) 50 mg tablet trazodone 50 mg tablet 0 02/16/1969 11/06/2021 Discontinued Comment on above: trazodone 50 mg tabl et Problems Active Problems Problem Classification Problem Date Documented Da te Episodic/Chronic Alcohol-related disorders (5 sources) Current drinker; Translations: [Alcohol use] Onset: 4 02-01-2024 Chronic Anxiety disorders (6 sources) Generalized anxiety disorder; Translations: [Generalized anxiety [...] [Hyperlipidemia] Onset: 0 05-07-2009 Chronic Esophageal disorders (5 sources) Gastroesophageal reflux disease without esophagitis; Translations: [Gastro-esophageal reflux disease without esophagitis] Onset: 2 Chronic Essential hypertension (20 sources) Essential hypertension; Translations: [Essential (primary) hypertension] Onset: 0 01-06-2020 Chronic Headache; including migraine (2 sources) Headache; Translations: [Headache, unspecified headache type] Episodic Mood disorders (20 sources) Recurrent major depression in partial remission; Translations: [Major depressive disorder, recurrent, in partial remission] Onset: 6 Resolved: 7 04-24-2016 Chronic Mood disorders (3 sources) Mood disorders; Translations: [Depression, unspecified] Onset: 2 Nausea and vomiting (1 source) Nausea; Translations: [Nausea] Episodic Nonspecific chest pain (11 sources) Chest pain; Translations: [Chest pain, unspecified] Onset: 2 Episodic Osteoarthritis (20 sources) Bilateral shoulder osteoarthritis; Translations: [Primary osteoarthritis, right shoulder] Onset: 2 Chronic Other aftercare (3 sources) detention (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 of anticoagulants; Translations: [vermin exterminator (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 of anticoagulants] Onset: 2 Episodic Other aftercare (3 sources) Taking high risk medication; Translations: [Other senior living (current) drug therapy] Episodic Other aftercare (11 sources) Patient encounter status; Translations: [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] Onset: 7 11-10-2022 Episodic Other and unspecified benign neoplasm (2 sources) History of polyp of colon; Translations: [Personal history of colonic polyps] Episodic Other circulatory disease (20 sources) Disorder of aorta; Translations: [Disorder of arteries and arterioles, unspecified] Onset: 2 06-07-2021 Chronic Other circulatory disease (1 source) Disorder of thoracic aorta; Translations: [Other specified disorders of arteries and arterioles] Chronic Other gastrointestinal disorders (2 sources) Drug-induced constipation; Translations: [Drug induced constipation] Episodic Other gastrointestinal disorders (2 sources) Abdominal bloating; Translations: [Abdominal distension (gaseous)] 04-25-2023 Episodic Other gastrointestinal disorders (2 sources) Diarrhea; Translations: [Diarrhea, unspecified] 11-25-2023 Episodic Other hereditary and degenerative nervous system conditions (20 sources) Mild cognitive impairment, so stated; Translations: [Mild cognitive impairment, so stated] Onset: 3 Chronic Other hereditary and degenerative nervous system conditions (2 sources) Impaired cognition; Translations: [Mild cognitive impairment, so stated] Chronic Other inflammatory condition of skin (1 source) Pruritus ani; Translations: [Pruritus ani] Episodic Other liver diseases (3 sources) Lesion of liver; Translations: [Liver disease, unspecified] Chronic Other liver diseases (1 source) Liver disease, unspecified; Translations: [Liver lesion] Onset: 4 Chronic Other liver diseases (7 sources) Steatosis of liver; Translations: [Fatty (change of) liver, not elsewhere classified] Onset: 5 04-27-2024 Chronic Other liver diseases (5 sources) Elevated liver enzymes level; Translations: [Abnormal levels of other serum enzymes] Episodic Other lower respiratory disease (1 source) Acute interstitial pneumonitis; Translations: [Acute interstitial pneumonitis] Onset: 2 Chronic Other lower respiratory disease (2 sources) Hypoxemia; Translations: [Hypoxemia] Onset: 2 Episodic Other lower respiratory disease (4 sources) Dyspnea; Translations: [Shortness of breath] Episodic Other lower respiratory disease (1 source) Cough; Translations: [Acute cough] 01-04-2022 Episodic Other nervous system disorders (20 sources) Chronic pain syndrome; Translations: [Chronic pain syndrome] Onset: 2 02-11-2021 Chronic Other nervous system disorders (3 sources) Chronic pain syndrome; Translations: [Chronic pain syndrome] Onset: 2 Chronic Other nervous system disorders (20 sources) Chronic pain; Translations: [Other chronic pain] Onset: 2 Resolved: 7 02-11-2023 Chronic Other nervous system disorders (1 source) Other chronic pain; Translations: [Other chronic pain] Onset: 3 Chronic Other non-traumatic joint disorders (3 sources) Pain in left shoulder; Translations: [Pain in left shoulder] Onset: 2 Episodic Other non-traumatic joint disorders (3 sources) Pain in right shoulder; Translations: [Pain in right shoulder] Onset: 2 Episodic Other nutritional; endocrine; and metabolic disorders (2 sources) Obesity, unspecified; Translations: [Obesity, unspecified] Onset: 2 Chronic Other nutritional; endocrine; and metabolic disorders (2 sources) Body mass index (BMI) 36.0-36.9, adult; Translations: [Body mass index [BMI] 36.0-36.9, adult] Onset: 2 Chronic Other nutritional; endocrine; and metabolic disorders (1 source) Hypocalcemia; Translations: [Hypocalcemia] Chronic Other nutritional; endocrine; and metabolic disorders (20 sources) Obese class I; Translations: [Obesity, unspecified] Onset: 3 06-30-2022 Chronic Other upper respiratory disease (2 sources) [...] amnesia; Translations: [Memory loss] Onset: 3 Episodic Residual codes; unclassified (1 source) History of surgical procedure on vein; Translations: [Other specified postprocedural states] 02-01-2024 Episodic Residual codes; unclassified (13 sources) Current drinker; Translations: [Other specified health status] Onset: 4 02-01-2024 Episodic Spondylosis; intervertebral disc disorders; other back problems (20 sources) Degeneration of cervical intervertebral disc; Translations: [Other cervical disc degeneration, unspecified cervical region] Onset: 8 04-29-2017 Chronic Thyroid disorders (20 sources) Acquired hypothyroidism; Translations: [Hypothyroidism, unspecified] Onset: 2 Resolved: 5 Chronic Unclassified (1 source) Unknown / UNK(Unknown) Onset: 0 Unclassified (2 sources) Multiple subsegmental pulmonary emboli without acute cor pulmonale; Translations: [Mult subsegmental pulmon emboli without acute cor pulmonale] Onset: 2 Unclassified (1 source) Unvaccinated for COVID-19; Translations: [Unvaccinated for COVID-19] Onset: 2 Viral infection (3 sources) COVID-19; Translations: [COVID-19] Onset: 2 Past or Other Problems Problem Classification Problem Date Documented Da te Episodic/Chronic Abdominal hernia (20 sources) Umbilical hernia; Translations: [Umbilical hernia without obstruction or gangrene] Onset: 06-05-2016 Resolved: 06-11-2016 06-11-2016 Episodic Abdominal pain (13 sources) Epigastric pain; Translations: [Epigastric pain] Onset: 11-25-2023 Episodic Adjustment disorders (20 sources) Reactive depression (situational); Translations: [Adjustment disorder with depressed mood] Onset: 09-17-2015 Resolved: 05-22-2016 05-22-2016 Chronic Anal and rectal conditions (20 sources) Anal fissure; Translations: [Anal fissure, unspecified] Onset: 02-01-2024 12-09-2023 Episodic Fluid and electrolyte disorders (20 sources) Dehydration; Translations: [Dehydration] Onset: 11-10-2022 Resolved: 04-27-2024 11-10-2022 Episodic Gastrointestinal hemorrhage (8 sources) Rectal hemorrhage; Translations: [Hemorrhage of anus and rectum] Onset: 04-05-2024 Episodic Hemorrhoids (9 sources) Internal hemorrhoids; Translations: [Other hemorrhoids] Onset: 02-03-2024 Episodic Intestinal infection (2 sources) Infection caused by Helicobacter pylori; Translations: [Other specified bacterial intestinal infections] Onset: 04-11-2024 04-08-2024 Episodic Mycoses (20 sources) Onychomycosis due to dermatophyte ; Translations: [Tinea unguium] Onset: 02-08-2013 Resolved: 04-24-2016 04-24-2016 Episodic Other aftercare (20 sources) Drug therapy finding; Translations: [Other senior living (current) drug therapy] Onset: 12-20-2021 Resolved: 04-27-2024 Episodic Other aftercare (4 sources) 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; Translations: [detention (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 of opiate analgesic] Onset: 10-22-2021 Episodic Other aftercare (20 sources) Long-term current use of opiate analgesic drug; Translations: [detention (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 of opiate analgesic] Onset: 12-16-2016 Resolved: 04-27-2024 02-11-2023 Episodic Other bone disease and musculoskeletal deformities (20 sources) Chondromalacia; Translations: [Chondromalacia, unspecified site] Onset: [...] Onset: 09-09-2021 Episodic Other connective tissue disease (20 sources) Myofascial pain syndrome; Translations: [Myalgia, other site] Onset: 02-11-2023 11-10-2022 Episodic Other connective tissue disease (20 sources) Supraspinatus tear; Translations: [Unspecified rotator cuff tear or rupture of unspecified shoulder, not specified as traumatic] Onset: 01-16-2020 11-10-2022 Episodic Other connective tissue disease (20 sources) Bilateral heel pain; Translations: [Pain in right foot] Onset: 10-25-2015 Resolved: 05-22-2016 05-22-2016 Episodic Other connective tissue disease (1 source) Myalgia, other site; Translations: [Myofascial pain syndrome] Onset: 02-11-2023 Episodic Other endocrine disorders (20 sources) Male hypogonadism; Translations: [Testicular hypofunction] Onset: 04-25-2010 Resolved: 05-22-2016 05-22-2016 Chronic Other gastrointestinal disorders (20 sources) Therapeutic opioid induced constipation; Translations: [Drug induced constipation] Onset: 11-06-2021 Episodic Other gastrointestinal disorders (1 source) Abdominal distension (gaseous); Translations: [Abdominal bloating] Onset: 11-25-2023 Episodic Other nutritional; endocrine; and metabolic disorders (20 sources) Obese class II; Translations: [Obesity, unspecified] Onset: 09-09-2021 Resolved: 04-27-2024 Chronic Other screening for suspected conditions (not mental disorders or infectious disease) (1 source) Encounter for screening for malignant neoplasm of prostate; Translations: [Screening for prostate cancer] Onset: 04-27-2024 Episodic Pulmonary heart disease (20 sources) Acute pulmonary embolism; Translations: [Other pulmonary embolism without acute cor pulmonale] Onset: 10-22-2021 Resolved: 04-27-2024 Episodic Spondylosis; intervertebral disc disorders; other back problems (20 sources) Neck pain; Translations: [Cervicalgia] Onset: 10-25-2015 Resolved: 05-22-2016 Episodic Sprains and strains (20 sources) Strain of neck muscle; Translations: [Strain of muscle, fascia and tendon at neck level, initial encounter] Onset: 06-22-2008 Resolved: 04-17-2017 Episodic Unclassified (1 source) Unvaccinated for COVID-19; Translations: [Unvaccinated for COVID-19] Onset: 10-22-2021 Viral infection (20 sources) Disease caused by 2019-nCoV; Translations: [COVID-19] Onset: 10-22-2021 Resolved: 04-27-2024 Episodic Results Test Name Value Interpretation Reference Range Facility H pylori Ag Stl Ql IAon 04-18 H. pylori Ag IA Ql (Stl) H.PYLORI EIA RESULT: Negative for Helicobacter pylori antigen by EIA Normal [facility] Comment on above: Performed By: #### [id number] ####[facility] LABCLIA [id number] [place] [address] [place] CBC W Auto Differential pane l (Bld)on 04-27-2024 Basophils (Bld) [#/Vol] 0.04 10*3/uL [facility] Basophils/100 WBC (Bld) 0.5 % [facility] Differential cell count method Nom (Bld) Auto [facility] Eosinophils (Bld) [#/Vol] 0.13 10*3/uL [facility] Eosinophils/100 WBC (Bld) 1.7 % [facility] Erythrocyte distribution width (RBC) [Ratio] 13.2 % 11.5 - 15.0 % [facility] Hematocrit (Bld) [Volume fraction] 49 % 39.0 - 51.0 % [facility] Hemoglobin (Bld) [Mass/Vol] 16.3 g/dL 13.0 - 17.0 g/dL [facility] Immature granulocytes (Bld) [#/Vol] [facility] Immature granulocytes/100 WBC (Bld) 0.3 % [facility] Lymphocytes (Bld) [#/Vol] 2.71 10*3/uL [facility] Lymphocytes/100 WBC (Bld) 35.8 % [facility] MCH (RBC) [Entitic mass] 29.1 pg 26.0 - 34.0 pg [facility] MCHC (RBC) [Mass/Vol] 33.3 g/dL 30.5 - 36.0 g/dL [facility] MCV (RBC) [Entitic vol] 87.5 fL 80.0 - 100.0 fL [facility] Monocytes (Bld) [#/Vol] 0.74 10*3/uL [facility] Monocytes/100 WBC (Bld) 9.8 % [facility] Neutrophils (Bld) [#/Vol] 3.93 10*3/uL [facility] Neutrophils/100 WBC (Bld) 51.9 % [facility] Nucleated RBC (Bld) [#/Vol] [facility] Nucleated RBC/100 WBC (Bld) [Ratio] 0 % /100 WBC [facility] Platelet mean volume (Bld) [Entitic vol] 9.3 fL 9.0 - 12.7 fL [facility] Platelets (Bld) [#/Vol] 278 10*3/uL [facility] RBC (Bld) [#/Vol] 5.6 10*6/uL 4.20 - 6.0 0 m/uL [facility] WBC (Bld) [#/Vol] 7.57 10*3/uL [facility] Basophils (Bld) [#/Vol] 0.04 10*3/uL Normal <0.11 [facility] Comment on above: Order Comment: Speci men Type: BLOOD SPECIMENOrdering Facility: [facility] Address: [address] [place] [address] Performed By: #### 5 7021-8 ####[facility] LABCLIA [id number] [facility] [place] [address] [place] Basophils/100 WBC (Bld) 0.5 % Normal [facility] Comment on above: Order Comment: Speci men Type: BLOOD SPECIMENOrdering Facility: [facility] Address: [address] [place] [address] Performed By: #### 5 7021-8 ####[facility] LABCLIA [id number] [place] [address] [place] Differential cell count method Nom (Bld) Auto Normal [facility] Comment on above: Order Comment: Speci men Type: BLOOD SPECIMENOrdering Facility: [facility] Address: [address] [place] [address] Performed By: #### 5 7021-8 ####[facility] LABCLIA [id number] [place] [address] [place] Eosinophils (Bld) [#/Vol] 0.13 10*3/uL Normal <0.46 [facility] Comment on above: Order Comment: Speci men Type: BLOOD SPECIMENOrdering Facility: [facility] Address: [address] [place] [address] Performed By: #### 5 7021-8 ####[facility] LABCLIA [id number] [facility] [place] [address] [place] Eosinophils/100 WBC (Bld) 1.7 % Normal [facility] Comment on above: Order Comment: Speci men Type: BLOOD SPECIMENOrdering Facility: [facility] Address: [address] [place] [address] Performed By: #### 5 7021-8 ####[facility] LABIA [id number] [place] [address] [place] Erythrocyte distribution width (RBC) [Ratio] 13.2 % Normal 11.5-15.0 [facility] Comment on above: Order Comment: Speci men Type: BLOOD SPECIMENOrdering Facility: [facility] Address: [address] [place] [address] Performed By: #### 5 7021-8 ####[facility] LABCLIA [id number] [place] [address] [place] Hematocrit (Bld) [Volume fraction] 49.0 % Normal 39.0-51.0 [facility] Comment on above: Order Comment: Speci men Type: BLOOD SPECIMENOrdering Facility: [facility] Address: [address] [place] [address] Performed By: #### 5 7021-8 ####[facility] LABIA [id number] [place] [address] [place] Hemoglobin (Bld) [Mass/Vol] 16.3 g/dL Normal 13.0-17.0 [facility] Comment on above: Order Comment: Speci men Type: BLOOD SPECIMENOrdering Facility: [facility] Address: [address] [place] [address] Performed By: #### 5 7021-8 ####[facility] LABCLIA [id number] [place] [address] [place] Immature granulocytes (Bld) [#/Vol] 10*3/uL Normal <0.10 [facility] Comment on above: Order Comment: Speci men Type: BLOOD SPECIMENOrdering Facility: [facility] Address: [address] [place] [address] Performed By: #### 5 7021-8 ####[facility] LABCLIA [id number] [place] [address] [place] Immature granulocytes/100 WBC (Bld) 0.3 % Normal [facility] Comment on above: Order Comment: Speci men Type: BLOOD SPECIMENOrdering Facility: [facility] Address: [address] [place] [address] Performed By: #### 5 7021-8 ####[facility] LABCLIA [id number] [place] [address] [place] Lymphocytes (Bld) [#/Vol] 2.71 10*3/uL Normal 1.00-4.00 [facility] Comment on above: Order Comment: Speci men Type: BLOOD SPECIMENOrdering Facility: [facility] Address: [address] [place] [address] Performed By: #### 5 7021-8 ####[facility] LABIA [id number] [place] [address] [place] Lymphocytes/100 WBC (Bld) 35.8 % Normal [facility] Comment on above: Order Comment: Speci men Type: BLOOD SPECIMENOrdering Facility: [facility] Address: [address] [place] [address] Performed By: #### 5 7021-8 ####[facility] LABIA [id number] [place] [address] [place] MCH (RBC) [Entitic mass] 29.1 pg Normal 26.0-34.0 [facility] Comment on above: Order Comment: Speci men Type: BLOOD SPECIMENOrdering Facility: [facility] Address: [address] [place] [address] Performed By: #### 5 7021-8 ####[facility] LABCLIA [id number] [place] [id number] [place] MCHC (RBC) [Mass/Vol] 33.3 g/dL Normal 30.5-36.0 [facility] Comment on above: Order Comment: Speci men Type: BLOOD SPECIMENOrdering Facility: [facility] Address: [address] [place] [address] Performed By: #### 5 7021-8 ####[facility] LABCLIA [id number] [address] [address] [place] MCV (RBC) [Entitic vol] 87.5 fL Normal 80.0-100.0 [facility] Comment on above: Order Comment: Speci men Type: BLOOD SPECIMENOrdering Facility: [facility] Address: [address] [place] [address] Performed By: #### 5 7021-8 ####[facility] LABCLIA [id number] [address], [place] [address] [place] Monocytes (Bld) [#/Vol] 0.74 10*3/uL Normal <0.87 [facility] Comment on above: Order Comment: Speci men Type: BLOOD SPECIMENOrdering Facility: [facility] Address: [address] [place] [address] Performed By: #### 5 7021-8 ####[facility] LABCLIA [id number] [place] [address] [place] Monocytes/100 WBC (Bld) 9.8 % Normal [facility] Comment on above: Order Comment: Speci men Type: BLOOD SPECIMENOrdering Facility: [facility] Address: [address] [place] [address] Performed By: #### 5 7021-8 ####[facility] LABCLIA [id number] [address] [place] [address] [place] Neutrophils (Bld) [#/Vol] 3.93 10*3/uL Normal 1.45-7.50 [facility] Comment on above: Order Comment: Speci men Type: BLOOD SPECIMENOrdering Facility: [facility] Address: [address] [place] [address] Performed By: #### 5 7021-8 ####[facility] LABCLIA [id number] [place] [address] [place] Neutrophils/100 WBC (Bld) 51.9 % Normal [facility] Comment on above: Order Comment: Speci men Type: BLOOD SPECIMENOrdering Facility: [facility] Address: [address] [place] [address] Performed By: #### 5 7021-8 ####[facility] LABCLIA [id number] [place] [address] [place] Nucleated RBC (Bld) [#/Vol] 10*3/uL Normal <0.01 [facility] Comment on above: Order Comment: Speci men Type: BLOOD SPECIMENOrdering Facility: [facility] Address: [address] [place] [address] Performed By: #### 5 7021-8 ####[facility] LABCLIA [id number] [place] [address] [place] Nucleated RBC/100 WBC (Bld) [Ratio] 0.0 /100 WBC Normal [facility] Comment on above: Order Comment: Speci men Type: BLOOD SPECIMENOrdering Facility: [facility] Address: [address] [place] [address] Performed By: #### 5 7021-8 ####[facility] LABCLIA [id number] [place] [address] [place] Platelet mean volume (Bld) [Entitic vol] 9.3 fL Normal 9.0-12.7 [facility] Comment on above: Order Comment: Speci men Type: BLOOD SPECIMENOrdering Facility: [facility] Address: [address] [place] [address] Performed By: #### 5 7021-8 ####[facility] LABCLIA [id number] [place] [id number] [place] Platelets (Bld) [#/Vol] 278 10*3/uL Normal 150-400 [facility] Comment on above: Order Comment: Speci men Type: BLOOD SPECIMENOrdering Facility: [facility] Address: [address] [place] [address] Performed By: #### 5 7021-8 ####[facility] LABIA [id number] [place] [address] [place] RBC (Bld) [#/Vol] 5.60 10*6/uL Normal 4.20-6.00 [facility] Comment on above: Order Comment: Speci men Type: BLOOD SPECIMENOrdering Facility: [facility] Address: [address] [place] [address] Performed By: #### 5 7021-8 ####[facility] LABIA [id number] [place] [address] [place] WBC (Bld) [#/Vol] 7.57 10*3/uL Normal 3.70-11.00 [facility] Comment on above: Order Comment: Speci men Type: BLOOD SPECIMENOrdering Facility: [facility] Address: [address] [place] [address] Performed By: #### 5 7021-8 ####[facility] LABIA [id number] [place] [id number] [place] CNOVon 04-27-2024 CNOV Office Visit (FAMPWS ) -- GERALD STALEY ([id number]) 1960 M Date Time Provider Department 04/27/24 11:00 AM ERROL CARY During your visit today, we recorded the following information about you: Pulse Blood pressure Weight 47/minute 104/72 89.8 kg Errol Cary MD 04/27/2024 3:41 PM Signed Patient presents with: Physical Hypertension HPI: Patient presents today for office visit for follow up. Since last appt has seen surgery and treated for h pylori Also treated for an anal fissure Had mri of liver that showed fatty liver Last saw cardiology in 2022. Overdue for follow up . Was seeing neurology and psych. Appears he has not been back. Has stopped seeing pain management. He is off his pain meds. He feels his memory is stable. Seems to be doing better today. He feels emotionally he is doing ok. Wants to get back to work and does not want to take meds. Energy level is poor. Has issues losing weight. No chest pain or shortness of breath. No edema. I have not see patient since 05/2022, copied and pasted:from that note Stopped Omeprazole. He said he doesn't notice [...] a cardiology follow up too as well. MEDICATIONS: Current Outpatient Medications Medication Sig losartan (COZAAR) 100 mg tablet Take 1 tablet by mouth once daily. triamterene-hydroCHLOROthi azide (MAXZIDE-25MG) 37.5-25 mg per tablet Take 1 tablet by mouth once daily. bismuth subsalicylate (PEPTO-BISMOL) 262 mg chewable tablet Take 2 tablets by mouth four times daily for 10 days. omeprazole (PRILOSEC) 20 mg capsule Take 1 capsule by mouth two times a day for 10 days. omeprazole (PRILOSEC) 40 mg capsule Take 1 capsule by mouth once daily. diclofenac (VOLTAREN) 1 % topical gel Apply 4 g to affected area four times daily as needed (for pain). As Directed. No current facility-administered medications for this visit. ALLERGIES: ALLERGIES Allergen Reactions Bakari Inhibitors Cough Darvocet A500 [Prop* GI Upset PAST MEDICAL HISTORY Diagnosis Date Abnormal EKG 04/23/2017 inf [place] age undetermined Acute pulmonary embolism without acute cor pulmonale (HCC) Adenomatous colon polyp Anal fissure Anxiety Aorta disorder (HCC) Bipolar 2 disorder (HCC) Chicken pox Colon polyps Depression ED (erectile dysfunction) GERD (gastroesophageal reflux disease) Headache Hemorrhoid HTN (hypertension) Hypogonadism male 04/25/2010 Hypothyroidism Myofascial pain dysfunction syndrome Obesity Osteoarthritis of multiple joints Pulmonary embolism (HCC) Rectal bleed Shingles Shoulder [...] - small - 5 year follow up EGD DIAGNOSTIC 12/2023 ESOPHAGOGASTRODUODENOSCOPY TRANSORAL DIAGNOSTIC 05/25/2018 Duodenitis, Gastritis FOOT SURGERY HX Right 2013 Cheilectomy, 1st metatarsophalangeal joint, HEMORRHOID;BAND LIGAT, SNGL/MUL 02/01/2024 OPEN REPAIR OF ROTATOR CUFF ACUTE Right 10/2016 Rotator cuff repair - Dr. Santamaria RECONSTRUCTION ROTATOR CUFF AVULSION CHRONIC Left 03/21/2010 Dr. Stalin Clark REPAIR UMBILICAL HERNIA 2017 RPR UMBILICAL HRNA 5 YRS/> REDUCIBLE 06/11/2016 simple SKIN GRAFT HX Right 1986 eyelid TONSILLECTOMY HX Childhood FAMILY HISTORY Problem Relation Age of Onset Diabetes Mother Hypertension Mother Arthritis Mother Breast Cancer Mother Dementia Mother Cancer Father throat Asthma No Family History Colon Cancer No Fami (more content not included)... Normal [facility] metabolic 2000 panelon 04-27-2024 Albumin [Mass/Vol] 4.5 g/dL Normal 3.9-4.9 [facility] Comment on above: Order Comment: Speci men Type: BLOOD SPECIMENOrdering Facility: [facility] Address: [address] [place] [address] Performed By: #### 3 016-3, 61829-1, 98923-3 ####[facility] LABCLIA [id number] [place] [address] [place] ALP [Catalytic activity/Vol] 60 U/L Normal 38-113 [facility] Comment on above: Order Comment: Speci men Type: BLOOD SPECIMENOrdering Facility: [facility] Address: [address] [place] [address] Performed By: #### 3 016-3, 65366-9, 09251-0 ####[facility] LABCLIA [id number] [place] [address] [place] ALT [Catalytic activity/Vol] 34 U/L Normal 10-54 [facility] Comment on above: Order Comment: Speci men Type: BLOOD SPECIMENOrdering Facility: [facility] Address: [address] [place] [address] Performed By: #### 3 016-3, 21420-8, 56934-0 ####[facility] LABCLIA [id number] [place] [address] [place] Anion gap [Moles/Vol] 10 mmol/L Normal 8-15 [facility] Comment on above: Order Comment: Speci men Type: BLOOD SPECIMENOrdering Facility: [facility] Address: [address] [place] [address] Performed By: #### 3 016-3, 63834-7, 61298-7 ####[facility] LABCLIA [id number] [facility] [place] [id number] [place] AST [Catalytic activity/Vol] 26 U/L Normal 14-40 [facility] Comment on above: Order Comment: Speci men Type: BLOOD SPECIMENOrdering Facility: [facility] Address: [address] [place] [address] Performed By: #### 3 016-3, 98307-1, ####[facility] LABCLIA [id number] [address] [address] [place] Bilirubin [Mass/Vol] 1.0 mg/dL Normal 0.2-1.3 [facility] Comment on above: Order Comment: Speci men Type: BLOOD SPECIMENOrdering Facility: [facility] Address: [address] [place] [address] Performed By: #### 3 016-3, , ####[facility] LABCLIA [id number] [place] [id number] [place] Calcium [Mass/Vol] 9.5 mg/dL Normal 8.5-10.2 [facility] Comment on above: Order Comment: Speci men Type: BLOOD SPECIMENOrdering Facility: [facility] Address: [address] [place] [address] Performed By: #### 3 016-3, , ####[facility] LABCLIA [id number] [place] [id number] [place] Chloride [Moles/Vol] 103 mmol/L Normal 98-107 [facility] Comment on above: Order Comment: Speci men Type: BLOOD SPECIMENOrdering Facility: [facility] Address: [address] [place], [place] [address] Performed By: #### 3 016-3, , ####[facility] LABCLIA [id number] [address] [address] [place] CO2 [Moles/Vol] 26 mmol/L Normal 22-30 [facility] Comment on above: Order Comment: Speci men Type: BLOOD SPECIMENOrdering Facility: [facility] Address: [address] [place] [address] Performed By: #### 3 016-3, 59804-1, 08113-8 ####[facility] LABIA [id number] [address] [address] [place] Creatinine [Mass/Vol] 0.94 mg/dL Normal 0.73-1.22 [facility] Comment on above: Order Comment: Speci men Type: BLOOD SPECIMENOrdering Facility: [facility] Address: [address] [place] [address] Performed By: #### 3 016-3, 18023-9, ####[facility] [id number] [place] [address] [place] Creatinine and Glomerular filtration rate.predicted panel (S/P/Bld) 91 mL/min/1.73m??? Normal >=60 [facility] Comment on above: Order Comment: Speci men Type: BLOOD SPECIMENOrdering Facility: [facility] Address: [address] [place] [address] Result Comment: Agata mated Glomerular Filtration Rate (eGFR) is calculated using the 2020 CKD-EPI creatinine equation. This equation utilizes serum creatinine, sex, and age as parameters. The creatinine assay has traceable calibration to isotope dilution-mass spectrometry. Refer to KDIGO guidelines for clinical interpretation. In patients with unstable renal function, e.g. those with acute kidney injury, the eGFR may not accurately reflect actual GFR. Performed By: #### 3 016-3, 80247-6, ####[facility] LABIA [id number] [address] [address] [place] Glucose [Mass/Vol] 80 mg/dL Normal 74-99 [facility] Comment on above: Order Comment: Mariely men Type: BLOOD SPECIMENOrdering Facility: [facility] Address: [address] [place] [address] Result Comment: The [place] Diabetes Association (ADA) provides guidance for cutoff values for fasting glucose and random glucose. The ADA defines fasting as no caloric intake for at least 8 hours. Fasting plasma glucose results between 100 to 125 mg/dL indicate increased risk for diabetes (prediabetes). Fasting plasma glucose results greater than or equal to 126 mg/dL meet the criteria for diagnosis of diabetes. In the absence of unequivocal hyperglycemia, results should be confirmed by repeat testing. In a patient with classic symptoms of hyperglycemia or hyperglycemic crisis, random plasma glucose results greater than or equal to 200 mg/dL meet the criteria for diagnosis of diabetes. Reference: Standards of Medical Care in Diabetes 2016, [place] [employer] Association. Diabetes Care. 2016.39(Suppl 1). Performed By: #### 3 016-3, 31697-7, 91333-3 ####[facility] LABIA [id number] [place] [address] [place] Potassium [Moles/Vol] 4.6 mmol/L Normal 3.7-5.1 [facility] Comment on above: Order Comment: Speci men Type: BLOOD SPECIMENOrdering Facility: [facility] Address: [address] [place] [address] Performed By: #### 3 016-3, 29717-7, 59184-1 ####[facility] [id number] [place] [address] [place] Protein [Mass/Vol] 6.7 g/dL Normal 6.3-8.0 [facility] Comment on above: Order Comment: Speci men Type: BLOOD SPECIMENOrdering Facility: [facility] Address: [address] [place] [address] Performed By: #### 3 016-3, 28928-2, 85813-9 ####[facility] [id number] [place] [address] [place] Sodium [Moles/Vol] 139 mmol/L Normal 136-144 [facility] Comment on above: Order Comment: Speci men Type: BLOOD SPECIMENOrdering Facility: [facility] Address: [address] [place] [address] Performed By: #### 3 016-3, 88681-7, 97617-4 ####[facility] LABCLIA [id number] [facility] [id number], [facility]95 [place] Urea nitrogen [Mass/Vol] 21 mg/dL Normal 9-24 [facility] Comment on above: Order Comment: Speci men Type: BLOOD SPECIMENOrdering Facility: [facility] Address: [address] [place] [address] Performed By: #### 3 016-3, 99410-6, 72544-6 ####[facility] LABCLIA [id number] [facility] [address], [facility]95 [place] Lipid 1996 panelon 5 Cholesterol [Mass/Vol] 193 mg/dL Normal <200 [facility] Comment on above: Order Comment: Speci men Type: BLOOD SPECIMENOrdering Facility: [facility] Address: [address] [place] [address] Result Comment: <200 mg/dL, Desirable 200-239 mg/dL, Borderline high >239 mg/dL, High Performed By: #### 3 016-3, 82324-3, 77153-2 ####[facility] LABCLIA [id number] [address], [address] [place] Cholesterol in HDL [Mass/Vol] 35 mg/dL Low >39 [facility] Comment on above: Order Comment: Speci men Type: BLOOD SPECIMENOrdering Facility: [facility] Address: [address] [place] [address] Result Comment: 40-5 9 mg/dL, Acceptable >59 mg/dL, High: Negative risk factor for coronary heart disease <40 mg/dL, Low: Positive risk factor for coronary heart disease Performed By: #### 3 016-3, 61859-1, 08494-4 ####[facility] LABCLIA [id number] [facility] [id number] [address] [place] Cholesterol in LDL [Mass/Vol] 121 mg/dL High <100 [facility] Comment on above: Order Comment: Speci men Type: BLOOD SPECIMENOrdering Facility: [facility] Address: [address] [place] [address] Result Comment: <100 mg/dL, Optimal 100-129 mg/dL, Near optimal/above optimal 130-159 mg/dL, Borderline high 160-189 mg/dL, High >189 mg/dL, Very high Secondary prevention optimal LDL Cholesterol levels are recommended to be < 70 mg/dL Performed By: #### 3 016-3, 50315-4, 18285-4 ####[facility] LABCLIA [id number] [address] [address] [place] Cholesterol in LDL/Cholesterol in HDL [Mass ratio] 3.46 {ratio} High <2.54 [facility] Comment on above: Order Comment: Chachaalexia men Type: BLOOD SPECIMENOrdering Facility: [facility] Address: [address] [place] [address] Result Comment: Refe rence: 1. National Cholesterol Education Program ATP III Guideline At-A-Glance Quick Desk Reference: National Heart, Lung, and Blood [place]. National Institutes of Health. 2001: NIH Publication No. 01-3305. 2. An International Atherosclerosis Society position paper: global recommendations for the management of dyslipidemia: executive summary, Atherosclerosis. 2014: 232(2):410-413. Performed By: #### 3 016-3, 93668-2, 40166-2 ####[facility] LABCLIA [id number] [place] [id number] [place] Cholesterol in VLDL [Mass/Vol] 37 mg/dL High <30 [facility] Comment on above: Order Comment: Mariely waite Type: BLOOD SPECIMENOrdering Facility: [facility] Address: [address] [place] [address] Performed By: #### 3 016-3, 29031-9, 65435-9 ####[facility] LABCLIA [id number] [address] [address] [place] Cholesterol non HDL [Mass/Vol] 158 mg/dL High <130 [facility] Comment on above: Order Comment: Speci men Type: BLOOD SPECIMENOrdering Facility: [facility] Address: [address] [place] [address] Result Comment: <130 mg/dL, Optimal 130-159 mg/dL, Near optimal/above optimal 160-189 mg/dL, Borderline high 190-219 mg/dL, High >219 mg/dL, Very high Secondary prevention optimal non HDL Cholesterol levels are recommended to be <100 mg/dL Performed By: #### 3 016-3, 67383-9, 30084-6 ####[facility] LABCLIA [id number] [place] [address] [place] Cholesterol.total/Ch olesterol in HDL [Mass ratio] 5.51 {ratio} High <5.10 [facility] Comment on above: Order Comment: Speci men Type: BLOOD SPECIMENOrdering Facility: [facility] Address: [address] [place] [address] Performed By: #### 3 016-3, 54855-7, 69655-8 ####[facility] LABIA [id number] [place] [address] [place] FASTING TIME 16 hrs Normal [facility] Comment on above: Order Comment: Speci men Type: BLOOD SPECIMENOrdering Facility: [facility] Address: [address] [place] [address] Performed By: #### 3 016-3, 42565-2, 99454-3 ####[facility] LABIA [id number] [place] [id number] [place] Triglyceride [Mass/Vol] 184 mg/dL High <150 [facility] Comment on above: Order Comment: Speci men Type: BLOOD SPECIMENOrdering Facility: [facility] Address: [address] [place] [address] Result Comment: <150 mg/dL, Normal 150-199 mg/dL, Borderline high 200-499 mg/dL, High >499 mg/dL, Very high Performed By: #### 3 016-3, 50678-4, 35261-8 ####[facility] [id number] [place] [id number] [place] PSA/PROSTATE SPECIFIC ANTIGE N SCREENINGon 04-27-2024 Prostate specific Ag [Mass/Vol] 1.31 ng/mL Normal <2.60 [facility] Comment on above: Order Comment: Speci men Type: BLOOD SPECIMENOrdering Facility: [facility] Address: [address] [place] [address] Result Comment: Tota l PSA test methodology used is the Electrochemiluminescence Immunoassay by [employer]. Total PSA values by differing methodologies cannot be interchanged. Performed By: #### P SAS1 ####[facility] [id number] [place] [address] [place] TSH SerPl-aCncon 04-27-2024 TSH Qn 2.490 m[IU]/L Normal 0.270-4.200 [facility] Comment on above: Order Comment: Speci men Type: BLOOD SPECIMENOrdering Facility: [facility] Address: [address] [place] [address] Performed By: #### 3 016-3, 09684-8, 04757-7 ####[facility] [id number] [address] [place] CNOVon 04-11-2024 CNOV Office Visit (GENSWS ) -- GERALD STALEY ([id number]) 1960 M Date Time Provider Department 04/11/24 2:00 PM RIA PULIDO During your visit today, we recorded the following information about you: Pulse Blood pressure Weight 72/minute 129/86 91.2 kg Ria Pulido APRN.WAREHOUSE 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 Pylori tx HPI: The patient is a 63 year old male with a complaint of abdominal pain and diarrhea. Cecil underwent EGD with Dr. Etienne on 04/05/24- stomach biopsy was negative for H. Pylori however Dr. Etienne was still suspicious for infection so sent a serum sample which returned as positive. Cecil presents today to review tx for H. Pylori. Cecil notes continued bloating and diarrhea. He also feels like his body isn't fighting infections as well AND has been having some episodes of weakness and lightheadedness. He does admit to not eating a good diet- today the only thing he had was a [employer] drink AND no food. He does admit to trying to eliminate gluten from his diet AND has noticed some improvement in symptoms. PAST MEDICAL HISTORY Diagnosis Date Abnormal EKG 04/23/2017 inf [place] age undetermined Acute pulmonary embolism without acute cor pulmonale (HCC) Adenomatous colon polyp Anal fissure Anxiety Aorta disorder (HCC) Bipolar 2 disorder (HCC) Chicken pox Colon polyps Depression ED (erectile dysfunction) GERD (gastroesophageal reflux disease) Headache Hemorrhoid HTN (hypertension) Hypogonadism male 04/25/2010 Hypothyroidism Myofascial pain dysfunction syndrome Obesity Osteoarthritis of multiple joints Pulmonary embolism (HCC) Rectal bleed Shingles Shoulder [...] - small - 5 year follow up EGD DIAGNOSTIC 12/2023 ESOPHAGOGASTRODUODENOSCOPY TRANSORAL DIAGNOSTIC 05/25/2018 Duodenitis, Gastritis FOOT SURGERY HX Right 2014 Cheilectomy, 1st metatarsophalangeal joint, HEMORRHOID;BAND LIGAT, SNGL/MUL 02/01/2024 OPEN REPAIR OF ROTATOR CUFF ACUTE Right 10/2016 Rotator cuff repair - Dr. Santamaria RECONSTRUCTION ROTATOR CUFF AVULSION CHRONIC Left 03/21/2010 Dr. Gant - Amber REPAIR UMBILICAL HERNIA 2017 RPR UMBILICAL HRNA 5 YRS/> REDUCIBLE 06/11/2016 simple SKIN GRAFT HX Right 1987 eyelid TONSILLECTOMY HX Childhood Current Outpatient Medications Medication Sig losartan (COZAAR) 100 mg tablet Take 1 tablet by mouth once daily. triamterene-hydroCHLOROthi azide (MAXZIDE-25MG) 37.5-25 mg per tablet Take 1 tablet by mouth once daily. omeprazole (PRILOSEC) 40 mg capsule Take 1 capsule by mouth once daily. bismuth subsalicylate (PEPTO-BISMOL) 262 mg chewable tablet Take 2 tablets by mouth four times daily for 10 days. doxycycline hyclate (VIBRAMYCIN) 100 mg capsule Take 1 capsule by mouth two times a day for 10 days. metroNIDAZOLE (FLAGYL) 250 mg tablet Take 1 tablet by mouth four times daily for 10 days. omeprazole (PRILOSEC) 20 mg capsule Take 1 capsule by mouth two times a day for 10 days. diclofenac (VOLTAREN) 1 % topical gel Apply 4 g to affected area four times daily as needed (for pain). As Directed. No current facility-administered medications for this visit. ALLERGIES: Bakari Inhibitors and Darvocet A500 [Propoxyphene N-Acetaminophen] PERSONAL HISTORY: Social History Tobacco Use Smoking status: Never Smokeless tobacco: Never Vaping Use Vaping status: Never Used Substance Use Topics Alcohol use: Yes Alcohol/week: 6.0 standard drinks of alcohol Types: 6 Cans of Beer (12oz) per week Comment: 12 beers weekly Drug use: Not Currently Comment: no longer using. FAMILY HISTORY: FAMILY HISTORY Problem Relation Age of Onset Diabetes Mother Hypertension Mother Arthritis Mother Breast Cancer Mother Dementia Mother Cancer Father throat Asthma No Family History Colon Cancer No Family History REVIEW OF SYMPTOMS: SEE HPI PHYSICAL EXAMINATION: General: The patient is 63 year old male, well nourished, well hydrated in no acute distress. The patient is oriented to time, place, and person. VITALS: Blood pressure 129/86, pulse 72, weight 91.2 kg (201 lb), SpO2 100%. Body mass index is 34.5 kg/m?. HEENT: Normal cephalic, ataumatic, pupils are equally round, sclera are anicteric, mucous membranes ar (more content not included)... [facility] [facility] -- STALEYGERALD Winchester ([id number]) 1960 M Date Time Provider Department 04/07/[address] [facility] During your visit today, we recorded the following information about you: Ria Pulido APRN.WAREHOUSE DISTRIBUTION MANAGER 04/07/2024 10:01 AM Signed Can you please reach out to the patient and help in scheduling an appointment with myself to discuss H. Pylori tx- can be virtual if patient wants. Thanks, Ria Pulido APRN.Sonal Golden 04/07/2024 2:00 PM Signed 1st ATC - left message. When patient returns call, please schedule appt. (in person or virtual) with Manisha Pulido for treatment of H Pylori. Sonal Alejandro Allergies As of Date: 04/07/2024 Noted Allergy Reaction BAKARI INHIBITORS 05/22/2016 3 - Cough DARVOCET A500 (PROPOXYPHENE N-BAKARI*04/24/2016 8 - GI Upset Date Reviewed: 02/03/2024 Reviewed by: Nahun Gustafson MD - Fully Assessed Reason for Visit: Appointment [186] Prescriptions as of 04/07/2024 - losartan (COZAAR) 100 mg tablet Take 1 tablet by mouth once daily. - triamterene-hydroCHLOROthi azide (MAXZIDE-25MG) 37.5-25 mg per tablet Take 1 tablet by mouth once daily. - omeprazole (PRILOSEC) 40 mg capsule Take 1 capsule by mouth once daily. - diclofenac (VOLTAREN) 1 % topical gel Apply 4 g to affected area four times daily as needed (for pain). As Directed. Problem List As Of Date 04/07/2024 Noted Resolved SPRAIN SHOULDER/ARM NOS [[id number]] 06/22/2008 09/25/2008 Rotator cuff (capsule) sprain [S43.429A] 09/25/2008 05/22/2016 Primary hypertension [I10] 05/07/2009 Hyperlipidemia [E78.5] 05/07/2009 Hypogonadism male [E29.1] 04/25/2010 05/22/2016 Other chronic pain [G89.29] 11/12/2011 Onychomycosis due to dermatophyte [B35.1] 02/08/2013 04/24/2016 Sprain of rhomboid [S23.8XXA] 06/12/2015 05/22/2016 Cervical myofascial strain [S16.1XXA] 06/12/2015 05/22/2016 Shoulder strain [S46.919A] 06/12/2015 04/17/2017 Strain of right shoulder [S46.911A] 08/10/2015 05/22/2016 Cervical strain [S16.1XXA] 08/10/2015 05/22/2016 Situational depression [F43.21] 09/17/2015 05/22/2016 Reactive depression [F32.9] 10/05/2015 04/24/2016 Chronic right-sided low back pain with right-si*10/25/2015 05/22/2016 Heel pain, bilateral [M79.671, M79.672] 10/25/2015 05/22/2016 Chronic pain [G89.29] 11/09/2015 05/22/2016 Recurrent major depression in partial remission*04/24/2016 Umbilical hernia without obstruction and withou*06/05/2016 06/11/2016 Strain of other muscles, fascia and tendons at *11/10/2016 04/17/2017 Sprain of other specified parts of right should*11/10/2016 04/17/2017 Other cervical disc degeneration, unspecified c*04/29/2017 Bursitis of both shoulders [M75.51, M75.52] 01/04/2020 Other forms of angina pectoris (HCC) [I20.89] 01/06/2020 S/P left rotator cuff repair [Z98.890] 04/16/2020 Partial nontraumatic tear of left rotator cuff *04/16/2020 Hypothyroidism, acquired [E03.9] 05/28/2021 10/16/2021 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] 06/07/2021 Osteoarthritis of both shoulders [M19.011, M19.*08/05/2021 Cervicalgia [M54.2] 08/05/2021 Rotator cuff impingement syndrome [M75.40] 08/05/2021 Rotator cuff syndrome [M75.100] 09/09/2021 Obesity, Class II, BMI 35-39.9 [E66.812] 09/09/2021 Subclinical hypothyroidism [E03.8] 10/16/2021 Acute pulmonary embolism without acute cor pulm*11/04/2021 Constipation due to opioid therapy [K59.03, T40*11/06/2021 High risk medications (not anticoagulants) long*12/20/2021 Cavernous malformation [Q28.3] 03/28/2022 Mild cognitive impairment with memory loss [G31*03/28/2022 Obesity, Class I, BMI 30-34.9 [E66.811] 06/30/2022 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] 01/16/2020 Diagnosed: 11/10/2022 Osteoarthritis of shoulder [M19.019] 04/15/2021 Diagnosed: 11/10/2022 COVID-19 [U07.1] 10/22/2021 Diagnosed: 11/10/2022 Dehydration [E86.0] 11/10/2022 Diagnosed: 11/10/2022 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*12/16/2016 Diagnosed: 11/10/2022 Superior glenoid labrum lesion of left shoulder*01/16/2020 Diagnosed: 11/10/2022 Tear of supraspinatus tendon [M75.100] 01/16/2020 Diagnosed: 11/10/2022 Myofascial pain syndrome [M79.18] 02/11/2023 Bipolar 2 disorder (HCC) [F31.81] 03/03/2023 Pre-op exam [Z01.818] 02/01/2024 Alcohol use [Z78.9] 02/01/2024 Anal fissure [K60.2] 02/01/2024 Hypothyroidism [E03.9] 02/01/2024 Other pulmonary embolism without acute cor pulm*02/01/2024 Encounter Status:Closed by RIA PULIDO on 04/07/24 [facility] CNOVon 04-05-2024 CNOV Office Visit (GENSWS ) -- GERALD STALEY ([id number]) 1960 M Date Time Provider Department 04/05/24 11:30 AM YAKOV ETIENNE GENSWS During your visit today, we recorded the following information about you: Yakov Etienne MD 04/05/2024 12:06 PM Signed HISTORY AND PHYSICAL Gerald Staley 1960 REFERRING PHYSICIAN: Yakov Etienne MD CHIEF COMPLAINT: No chief complaint on file. HPI: The patient is a 63 year old male with a complaint of generalized abdominal pain, loose diarrhea stools. Recently admit that he [facility]'s emergency department on 03/13/2024. Had a CAT scan of the abdomen which showed diverticulosis no signs of diverticulitis did not show any specific signs of colitis raise some question whether he had cystitis. He has been having upper abdominal discomfort generalized abdominal discomfort. He has been taking his PPI religiously. He was seen by GI had an upper GI done which did not show any signs of H. pylori gastritis but a small bowel biopsy was not entirely normal either. PAST MEDICAL HISTORY Diagnosis Date Abnormal EKG 04/23/2017 inf [place] age undetermined Acute pulmonary embolism without acute cor pulmonale (HCC) Adenomatous colon polyp Anal fissure Anxiety Aorta disorder (HCC) Bipolar 2 disorder (HCC) Chicken pox Colon polyps Depression ED (erectile dysfunction) GERD (gastroesophageal reflux disease) Headache Hemorrhoid HTN (hypertension) Hypogonadism male 04/25/2010 Hypothyroidism Myofascial pain dysfunction syndrome Obesity Osteoarthritis of multiple joints Pulmonary embolism (HCC) Rectal bleed Shingles Shoulder [...] - small - 5 year follow up EGD DIAGNOSTIC 12/2023 ESOPHAGOGASTRODUODENOSCOPY TRANSORAL DIAGNOSTIC 05/25/2018 Duodenitis, Gastritis FOOT SURGERY HX Right 2013 Cheilectomy, 1st metatarsophalangeal joint, HEMORRHOID;BAND LIGAT, SNGL/MUL 02/01/2024 OPEN REPAIR OF ROTATOR CUFF ACUTE Right 10/2016 Rotator cuff repair - Dr. Santamaria RECONSTRUCTION ROTATOR CUFF AVULSION CHRONIC Left 03/21/2010 Dr. Stalin Clark REPAIR UMBILICAL HERNIA 2016 RPR UMBILICAL HRNA 5 YRS/> REDUCIBLE 06/11/2016 simple SKIN GRAFT HX Right 1986 eyelid TONSILLECTOMY HX Childhood Current Outpatient Medications Medication Sig losartan (COZAAR) 100 mg tablet Take 1 tablet by mouth once daily. triamterene-hydroCHLOROthi azide (MAXZIDE-25MG) 37.5-25 mg per tablet Take 1 tablet by mouth once daily. omeprazole (PRILOSEC) 40 mg capsule Take 1 capsule by mouth once daily. diclofenac (VOLTAREN) 1 % topical gel Apply 4 g to affected area four times daily as needed (for pain). As Directed. No current facility-administered medications for this visit. ALLERGIES: Bakari Inhibitors and Darvocet A500 [Propoxyphene N-Acetaminophen] PERSONAL HISTORY: Social History Tobacco Use Smoking status: Never Smokeless tobacco: Never Vaping Use Vaping status: Never Used Substance Use Topics Alcohol use: Yes Alcohol/week: 6.0 standard drinks of alcohol Types: 6 Cans of Beer (12oz) per week Comment: 12 beers weekly Drug use: Not Currently Comment: no longer using. FAMILY HISTORY: FAMILY HISTORY Problem Relation Age of Onset Diabetes Mother Hypertension Mother Arthritis Mother Breast Cancer Mother Dementia Mother Cancer Father throat Asthma No Family History Colon Cancer No Family History REVIEW OF SYMPTOMS: The review of systems data was entered by the nurse and reviewed by me There are no exam notes on file for this visit. PHYSICAL EXAMINATION: General: The patient is 63 year old male, well nourished, well hydrated in no acute distress. The patient is oriented to time, place, and person. VITALS: There were no vitals taken for this visit. HEENT: Normal cephalic, ataumatic, pupils are equally [...] No adenopathy. Other: LABORATORY VALUES: As Noted R (more content not included)... Normal [facility] H. pylori IgG IA Qlon 2024 H. PYLORI IGG, QUAL Positive Abnormal Negative [facility] Comment on above: Order Comment: Speci men Type: BLOOD SPECIMEN [facility] Address: [address] [place] [address] Result Comment: The result suggests recent or past infection with H. pylori. Clinical correlation is required. Where clinically warranted, follow up testing is suggested including Urea Breath Test or H. pylori stool antigen test. Performed By: #### 1 7859-0 #### [facility] CLIA [id number] [address] [place], [place] [address] [place] [address] [place] 12 Lead EKGon 03-13-2024 12 Lead EKG [facility] Cardiovascular Services [address] [place] [address] 12 Lead EKG 03/13/241946 MR#: [id number] Acct: [id number] Name: GERALD STALEY Rep #: [id number] : 1960 63 From: Oscar Hendrickson MD Attending Dr: Status: DEP ER Ordering Dr: Ileana Delcid Date: 03/13/24 Location: ED Sex: M C Admitted: Test Reason : DYSRHYTHMIA Blood Pressure : */* mmHG Vent. Rate : 77 BPM Atrial Rate : 77 BPM P-R Int : 142 ms QRS Dur : 78 ms QT Int : 380 ms P-R-T Axes : 17 -7 11 degrees QTcB Int : 430 ms Normal sinus rhythm Normal ECG When compared with ECG of 25-Apr-2023 13:51, Vent. rate has increased by 26 bpm Confirmed by JOSSE LYNCH, GUERRERO ([id number]), greeting card editor ANJUM DESAI ([id number]) on 03/16/2024 7:54:57 AM Referred By: Confirmed By: GUERRERO HENDRICKSON MD 03/16/24 0754 Date Oscar Hendrickson MD CC: Dr. Waqar Martin DO; Dr. Errol Cary MD; YOLETTE Perdomo Signed Normal [facility] Abdomen/Pelvis W IV Cont ONL Yon 03-13-2024 Abdomen/Pelvis W IV Cont ONLY [facility] Imaging Services [address] [place] [address] Abdomen/Pelvis W IV Cont ONLY MR#: [id number] Acct: [id number] Name: GERALD STALEY Rep #: [id number] : 1960 M 63 From: Mahin carlisle MD PCP: Dr. Errol Cary MD Status: REG ER Study: Abdomen/Pelvis W IV Cont ONLY Date of Exam: Exam# [id number] Ordering Dr: Ileana Delcid [id number] INDICATION: abdominal pain EXAMINATION: CT Abdomen And Pelvis W/ Contrast Injection TECHNIQUE: Helically acquired images were obtained of the abdomen and pelvis after IV contrast. A radiation dose optimization technique was used for this scan. IV Contrast dosage and agent: IV 100mL Isovue-370 Oral contrast: None. COMPARISON: None. FINDINGS: Visualized lung bases: Unremarkable Liver: Multiple hypoattenuating lesions in the liver with peripheral nodular enhancement consistent with hemangiomas. For example, there is a 2.2 cm lesion in segment 7. Gallbladder: Unremarkable Spleen: Unremarkable Pancreas: Unremarkable Adrenal Glands: Unremarkable Kidneys: Unremarkable Vasculature: Mild scattered aortoiliac atherosclerotic calcifications. GI Tract: Scattered diverticula throughout the colon without evidence of inflammation. The appendix is normal. Lymphadenopathy: None Peritoneum: No ascites. Bladder: Mild circumferential wall thickening with subtle surrounding inflammatory changes. Reproductive organs: The prostate is mildly enlarged. Bones/Soft tissues: Mild scattered degenerative changes of the visualized spine. CT/Abdomen/Pelvis W IV Cont ONLY IMPRESSION: Findings suspicious for cystitis. Correlate with urinalysis. Mild prostatomegaly. Correlate with PSA levels. Multiple hepatic hemangiomas. Diverticulosis. Electronically Signed: Mahin Moe MD at 21:49 EST , CC: Dr. Errol Cary MD; YOLETTE Perdomo Retail Greeter: Signed Normal [facility] CBC W/Diff, Automatedon 02-17 Absolute Neut Normal 2.0-7.7 [facility] Comment on above: Result Comment: Canc elled via OM: Ordered Performed By: #### L 100.0100 ####[facility] [address] [place], [address] HCT Normal 40-54 [facility] Comment on above: Result Comment: Canc elled via OM: Ordered Performed By: #### L 100.0100 ####[facility] [address] [place], [address] HGB Normal 13.0-16.5 [facility] Comment on above: Result Comment: Canc elled via OM: Ordered Performed By: #### L 100.0100 ####[facility] [address] [place], [address] MCH Normal 27.0-32.0 [facility] Comment on above: Result Comment: Canc elled via OM: MD Ordered Performed By: #### L 100.0100 ####[facility] [address] [place], [address] MCHC Normal 32-36 [facility] Comment on above: Result Comment: Canc elled via OM: MD Ordered Performed By: #### L 100.0100 ####[facility] [address] [place], [address] MCV Normal 80-94 [facility] Comment on above: Result Comment: Canc elled via OM: MD Ordered Performed By: #### L 100.0100 ####[facility] [address] [place], [address] NEUT% Normal 47-70 [facility] Comment on above: Result Comment: Canc elled via OM: MD Ordered Performed By: #### L 100.0100 ####[facility] [address] [place], [address] PLT Normal 150-450 [facility] Comment on above: Result Comment: Canc elled via OM: MD Ordered Performed By: #### L 100.0100 ####[facility] [address] [place], [address] RBC Normal 4.6-6.2 [facility] Comment on above: Result Comment: Canc elled via OM: MD Ordered Performed By: #### L 100.0100 ####[facility] [address] [place], [address] RDW CV Normal 11.6-14.6 [facility] Comment on above: Result Comment: Canc elled via OM: MD Ordered Performed By: #### L 100.0100 ####[facility] [address] [place], [address] RDW SD Normal 35.1-43.9 [facility] Comment on above: Result Comment: Canc elled via OM: MD Ordered Performed By: #### L 100.0100 ####[facility] [address] [place], [address] WBC Normal 4.4-11.0 [facility] Comment on above: Result Comment: Canc elled via OM: MD Ordered Performed By: #### L 100.0100 ####[facility] [address] [place], [address] Absolute Lymph 2.16 X10 3/uL Normal 0.83-4.51 [facility] Comment on above: Performed By: #### L 500.4050, L100.0100 #### [facility] [address] [place], [address] Absolute Neut 3.2 X10 3/uL Normal 2.0-7.7 [facility] Comment on above: Performed By: #### L 500.4050, L100.0100 #### [facility] [address] [place], [address] Basophils/100 WBC (Bld) 0.5 % Normal 0-1 [facility] Comment on above: Performed By: #### L 500.4050, L100.0100 #### [facility] [address] [place], [address] Eosinophils/100 WBC (Bld) 1.2 % Normal 0-5 [facility] Comment on above: Performed By: #### L 500.4050, L100.0100 #### [facility] [address] [place], [address] Erythrocyte distribution width (RBC) [Ratio] 12.9 % Normal 11.6-14.6 [facility] Comment on above: Performed By: #### L 500.4050, L100.0100 #### [facility] [address] [place], [address] Hematocrit (Bld) [Volume fraction] 49.5 % Normal 40-54 [facility] Comment on above: Performed By: #### L 500.4050, L100.0100 #### [facility] [address] [place], [address] Hemoglobin (Bld) [Mass/Vol] 17.0 g/dL High 13.0-16.5 [facility] Comment on above: Performed By: #### L 500.4050, L100.0100 #### [facility] [address] [place], [address] IG% 0.500 Normal 0.0-0.9 [facility] Comment on above: Result Comment: IG% - Immature Granulocytes (promyelocytes, myelocytes and metamyelocytes) > 1% indicates that a LEFT SHIFT is Present. Performed By: #### L 500.4050, L100.0100 #### [facility] [address] [place], [address] Lymphocytes/100 WBC (Bld) 32.6 % Normal 19-41 [facility] Comment on above: Performed By: #### L 500.4050, L100.0100 #### [facility] [address] [place], [address] MCH (RBC) [Entitic mass] 29.2 pg Normal 27.0-32.0 [facility] Comment on above: Performed By: #### L 500.4050, L100.0100 #### [facility] [address] [place], [address] MCHC (RBC) [Mass/Vol] 34.3 g/dL Normal 32-36 [facility] Comment on above: Performed By: #### L 500.4050, L100.0100 #### [facility] [address] [place], [address] MCV (RBC) [Entitic vol] 84.9 fL Normal 80-94 [facility] Comment on above: Performed By: #### L 500.4050, L100.0100 #### [facility] [address] [place], [address] Monocytes/100 WBC (Bld) 16.9 % High 0-10 [facility] Comment on above: Performed By: #### L 500.4050, L100.0100 #### [facility] [address] [place], [address] Neutrophils/100 WBC (Bld) 48.3 % Normal 47-70 [facility] Comment on above: Performed By: #### L 500.4050, L100.0100 #### [facility] [address] [place], [address] Nucleated RBC (Bld) [#/Vol] 0 10*3/uL Normal 0-5 [facility] Comment on above: Performed By: #### L 500.4050, L100.0100 #### [facility] [address] [place], [address] Platelet mean volume (Bld) [Entitic vol] 9.2 fL Normal 6.2-12.0 [facility] Comment on above: Performed By: #### L 500.4050, L100.0100 #### [facility] [address] [place], [address] Platelets (Bld) [#/Vol] 146 10*3/uL Low 150-450 [facility] Comment on above: Performed By: #### L 500.4050, L100.0100 #### [facility] [address] [place], [address] RBC (Bld) [#/Vol] 5.83 10*6/uL Normal 4.6-6.2 [facility] Comment on above: Performed By: #### L 500.4050, L100.0100 #### [facility] [facility] [address] [place], [address] RDW SD 39.2 fl Normal 35.1-43.9 [facility] Comment on above: Performed By: #### L 500.4050, L100.0100 #### [facility] [address] [place], [address] WBC (Bld) [#/Vol] 6.6 10*3/uL Normal 4.4-11.0 [facility] Comment on above: Performed By: #### L 500.4050, L100.0100 #### [facility] [address] [place], [address] Chest PA and Lateralon 03-13 Chest PA and Lateral [facility] [address] [place] [address] Chest PA and Lateral MR#: [id number] Acct: [id number] Name: GERALD STALEY Rep #: [id number] : 1960 M 63 From: Mahin carlsile MD PCP: Dr. Errol Cary MD Status: [facility] Study: Chest PA and Lateral Date of Exam: 03/13/24 Exam# [id number] Ordering Dr: Ileana Delcid [id number] INDICATION: cough EXAMINATION/TECHNIQUE: X-RAY - XR Chest 2 Views COMPARISON: 10/21/2021. FINDINGS: The lungs are clear. The cardiomediastinal silhouette is unremarkable. No pleural effusion or pneumothorax. No acute osseous abnormalities. RAD/Chest PA and Lateral IMPRESSION: No acute radiographic abnormalities. Electronically Signed: Mahin Moe MD at 21:24 EST , CC: Dr. Errol Cary MD; YOLETTE Perdomo Retail Greeter: Signed Normal [facility] Comprehensive Metabolic Prof ilon 03-13-2024 Albumin [Mass/Vol] 3.8 g/dL Normal 3.2-5.0 [facility] Comment on above: Performed By: #### L 500.4050, L100.0100 ####[facility] [address] [place], [address] Albumin/Globulin [Mass ratio] 1.1 {ratio} Normal 0.9-2.4 [facility] Comment on above: Performed By: #### L 500.4050, L100.0100 ####[facility] [address] [place], [address] ALK P 97 U/L Normal 45-117 [facility] Comment on above: Performed By: #### L 500.4050, L100.0100 ####[facility] [address] [place], [address] ALT [Catalytic activity/Vol] 42 U/L Normal 16-61 [facility] Comment on above: Performed By: #### L 500.4050, L100.0100 ####[facility] [address] [place], [address] AST [Catalytic activity/Vol] 23 U/L Normal 15-37 [facility] Comment on above: Performed By: #### L 500.4050, L100.0100 ####[facility] [address] [place], [address] Bilirubin [Mass/Vol] 0.90 mg/dL Normal 0.20-1.00 [facility] Comment on above: Result Comment: For patients on eltrombopag therapy, use of Dimension [place] TBIL is not recommended. Performed By: #### L 500.4050, L100.0100 ####[facility] [address] [place], [address] BUN/CRE 18.5 RATIO Normal 10-20 [facility] Comment on above: Performed By: #### L 500.4050, L100.0100 ####[facility] [address] [place], [address] CA,Total 9.2 mg/dL Normal 8.5-10.1 [facility] Comment on above: Performed By: #### L 500.4050, L100.0100 ####[facility] [address] [place], [address] Chloride [Moles/Vol] 103 mmol/L Normal 98-107 [facility] Comment on above: Performed By: #### L 500.4050, L100.0100 ####[facility] [address] [place], [address] CO2 [Moles/Vol] 28.0 mmol/L Normal 21.0-32.0 [facility] Comment on above: Performed By: #### L 500.4050, L100.0100 ####[facility] [address] [place], [address] Creatinine [Mass/Vol] 0.97 mg/dL Normal 0.70-1.30 [facility] Comment on above: Result Comment: The validity of the calculated GFR GFRAA in patients over 70 years has not been determined. Clinical correlation is essential. Performed By: #### L 500.4050, L100.0100 ####[facility] [address] [place], [address] ECRCL 81.01 ml/min Normal [facility] Comment on above: Performed By: #### L 500.4050, L100.0100 ####[facility] [address] [place], [address] EST GFR - AA 100 mL/min Normal >60 [facility] Comment on above: Result Comment: Afri can Mal[place]ian GFR Calc Performed By: #### L 500.4050, L100.0100 ####[facility] [address] [place], [address] GAP 6 Normal 5-15 [facility] Comment on above: Performed By: #### L 500.4050, L100.0100 ####[facility] [address] [place], [address] GFR/1.73 sq M.predicted among non-blacks MDRD (S/P/Bld) [Vol rate/Area] 83 mL/min/{1.73_m2} Normal >60 [facility] Comment on above: Result Comment: Non- GFR Calc Performed By: #### L 500.4050, L100.0100 ####[facility] [address] [place], [address] Globulin (S) [Mass/Vol] 3.6 g/dL Normal 2.2-4.2 [facility] Comment on above: Performed By: #### L 500.4050, L100.0100 ####[facility] [address] [place], [address] Glucose [Mass/Vol] 96 mg/dL Normal 74-106 [facility] Comment on above: Performed By: #### L 500.4050, L100.0100 ####[facility] [address] [place], [address] Potassium [Moles/Vol] 3.6 mmol/L Normal 3.5-5.1 [facility] Comment on above: Performed By: #### L 500.4050, L100.0100 ####[facility] [address] [place], [address] Sodium [Moles/Vol] 137 mmol/L Normal 136-145 [facility] Comment on above: Performed By: #### L 500.4050, L100.0100 ####[facility] [address] [place], [address] T PROT 7.4 g/dL Normal 6.4-8.2 [facility] Comment on above: Performed By: #### L 500.4050, L100.0100 ####[facility] [address] [place], [address] Urea nitrogen [Mass/Vol] 18 mg/dL Normal 7-18 [facility] Comment on above: Performed By: #### L 500.4050, L100.0100 ####[facility] [address] [place], [address] D-Dimer Quantitative (DVT/PE )on 03-13-2024 D-DIMER QUANT 0.51 FEU/ug/m Invalid Interpretation Code 0.27-0.49 [facility] Comment on above: Result Comment: D-Di bebo ELEVATED (>0.49): Additional studies and clinical assessments are indicated to conclude diagnosis of: Deep Vein Thrombosis (DVT) or Pulmonary Embolism (PE) CRITICAL VALUE CALLED TO HORR 03/13/241954 Colette Machuca. RESULTS READ BACK BY SAME. Performed By: #### L 501.2450, L300.8000 #### [facility] [address] [place], [address] Emergency Department Summary on 03-13-2024 Emergency Department Summary [facility] Medical Records Department [address] [place] [address] Emergency Department Summary 03/13/24 MR#: [id number] Acct: [id number] Name: GERALD STALEY Rep #: [id number] : 1960 63 From: Ileana DE LA VEGA PCP: Dr. Errol Cary MD Status:DEP ER Location: ED HPI History of Present Illness Chief Complaint: Abd Pain Narrative Narrative: 63-year-old male with past medical history of HTN, GERD, remote PE after COVID presents with constellation of complaints. He states he has had runny nose and cough for over a week. Both sides of his rib cage hurt when he coughs or sneezes and he has bodyaches. He denies shortness of breath. Over the last few days he has also had generalized abdominal pain wrapping around to bilateral flanks. He states his stool has looked dark green or black at times. He reports a long history of intermittent rectal bleeding and had a hemorrhoid surgery on February 01 3024. He is not on blood thinners. He states his last colonoscopy was 6 months ago and they removed benign polyps. [facility] Medical History (Updated 03/13/24 @ 22:07 by YOLETTE Perdomo) Hemorrhoid Pulmonary embolism Anxiety Depression GERD (gastroesophageal reflux disease) Non-smoker Hypertension Hypothyroidism Home Medications ???Medication ???Instructions ???Recorded ???Last Taken ???Type apixaban 5 mg (74 tabs) tablets in 5 mg PO BID #74 tabs 10/21/21 Unknown Rx a dose pack (DAQRI DVT-PE Treat 30D Start) gabapentin 300 mg capsule 300 mg PO TID 10/21/21 Unknown History lamotrigine 150 mg tablet 150 mg PO DAILY 10/21/21 Unknown History losartan 100 mg tablet 100 mg PO DAILY 10/21/21 Unknown History morphine 15 mg tablet,extended 15 mg PO DAILY 10/21/21 Unknown History release omega-3 fatty acids 500 mg PO DAILY 10/21/21 Unknown History omeprazole 20 mg capsule,delayed 20 mg PO DAILY 10/21/21 Unknown History release oxycodone 15 mg tablet 15 mg PO TID 10/21/21 Unknown History quetiapine 150 mg tablet,extended 150 mg PO DAILY 10/21/21 Unknown History release 24 hr triamterene 37.5 1 tab PO DAILY 10/21/21 Unknown History mg-hydrochlorothiazide 25 mg tablet Allergy/AdvReac Type Severity Reaction Status Date / Time acetaminophen (From AdvReac Upset Verified 03/13/24 17:54 Darvocet-N) Stomach propoxyphene (From AdvReac Upset Verified 03/13/24 17:54 Darvocet-N) Stomach Surgical History (Updated 03/13/24 @ 18:32 by Mara Shepard) History of rectal surgery History of rotator cuff surgery Social History Smoking Status: Never smoker ROS ROS ED ROS Narrative Constitutional: Positive for hills, malaise. ENT: Positive for rhinorrhea. CVS: Positive for chest pain. No syncope. Respiratory: Positive for cough. Negative for shortness of breath. GI: Positive for abdominal pain, nausea, vomiting, melena. : Negative for dysuria. Neuro: Negative for headache. EXAM Physical Exam Narrative Exam Narrative: CONST: Patient sitting in no acute distress. EYES: Normal inspection. NECK: Normal inspection. RESP: No respiratory distress, CTAB. CVS: Regular rate and rhythm, no murmur, no gallop. ABD: Soft with mild right upper quadrant and epigastric tenderness, no guarding or rebound, nondistended. Back: Normal inspection, no CVA tenderness. SKIN: Color normal, no rash, warm, dry, intact. EXTREMITIES: Normal appearance, no pedal edema. NEURO: Alert and answering questions appropriately. PSYCH: Normal affect. Const Vital Signs: 03/13/24 17:54 03/13/24 18:04 03/13/24 19:04 Temperature 98.7 F Temperature Source Oral Pulse Rate 95 88 79 Respiratory Rate 18 14 14 Blood Pressure 107/92 H 133/89 H Blood Pressure Mean 97 103 Pulse Ox 96 95 95 Oxygen Delivery Method Room Air Room Air Room Air 03/13/24 20:00 03/13/24 21:00 03/13/24 22:00 Temperature Temperature Source Pulse Rate 74 63 78 Respiratory Rate 15 16 Blood Pressure 126/62 H 129/95 H Blood Pressure Mean 83 106 Pulse Ox 95 96 Oxygen Delivery Method Room Air Room Air 03/13/24 22:15 Temperature 98.0 F Temperature Source Pulse Rate 87 Respiratory Rate 16 Blood Pressure 129/95 H Blood Pressure Mean 106 Pulse Ox 95 Oxygen Delivery Method Physical Exam Const Vital Signs: 03/13/24 17:54 03/13/24 18:04 03/13/24 19:04 Temperature 98.7 F Temperature Source Oral Pulse Rate 95 88 79 Respiratory Rate 18 14 14 Blood Pressure 107/92 H 133/89 H Blood Pressure Mean 97 103 Pulse Ox 96 95 95 Oxygen Delivery Method Room Air Room Air Room Air 03/13/24 20:00 03/13/24 21:00 03/13/24 22:00 Temperature Temperature Sour (more content not included)... Normal [facility] L501.4020on 01-26-2025 TROPONIN-I HS 4 pg/mL Normal 3.0-78.0 [facility] Comment on above: Order Comment: 'TROP ' Serial specimen #1, #2 or #3: 1 Result Comment: Junie scales Note: New Test Units and Gender Specific Reference Ranges. For more information see Policy Stat Procedure [place] High Sensitivity Troponin (TNIH) and attachments. Performed By: #### L 501.4020 ####[facility] [address] [place], [address] Lipaseon 03-13-2024 Lipase [Catalytic activity/Vol] 29 U/L Normal 13-75 [facility] Comment on above: Result Comment: Pleankur scales note: LIPASE revised reference range effective 22. New Lipase methodology. Expected to produce lower values than the previous assay method. NEW Reference Range: 13 - 75 U/L Performed By: #### L 501.2450, L300.8000 #### [facility] [address] [place], [address] M100.678on 03-13-2024 M100.678 Copy of report sent to Infection Control Printer [id number] 03/14/24 0755 [facility] Pending SARS-CoV-2 (COVID 19) Negative INFLUENZA A A Positive A INFLUENZA B Negative RSV PCR Negative INFLUENZAE A Normal [facility] Comment on above: Performed By: #### M 100.678 #### [facility] [address] [place], [address] Stool Occult Blood iFOBon STOB Positive Normal [facility] Comment on above: Performed By: #### M 100.7900 #### [facility] [address] [place], [address] Urinalysis, Completeon 03-13 RBC 0-5 SEEN Normal 0-5 [facility] Comment on above: Order Comment: COLLE CTOR TO SPECIFY Performed By: #### L 400.0001 #### [facility] [address] [place], [address] WBC 0-5 SEEN Normal 0-5 [facility] Comment on above: Order Comment: COLLE CTOR TO SPECIFY Performed By: #### L 400.0001 #### [facility] [address] [place], [address] BACTERIA 0 SEEN Normal None Seen [facility] Comment on above: Order Comment: COLLE CTOR TO SPECIFY Performed By: #### L 400.0001 #### [facility] [address] [place], [address] EPI,SQUAMOUS 0 SEEN Normal 0-5 [facility] Comment on above: Order Comment: COLLE CTOR TO SPECIFY Performed By: #### L 400.0001 #### [facility] [address] [place], [address] Mucus Ql (Urine sed) 0 SEEN Normal [facility] Comment on above: Order Comment: COLLE CTOR TO SPECIFY Performed By: #### L 400.0001 #### [facility] [address] [place], [address] CNPNon 02-18-2024 CNPN Telephone (GSTNOR) -- GERALD STALEY ([id number]) 1960 M Date Time Provider Department 02/18/24 GIA VENTURA GSTSIDRA During your visit today, we recorded the following information about you: Daryl Isidro MA 02/18/2024 11:06 AM Signed Patient called in because he did not understand his EGD results. Explained results in more detail and also went over MRI results. Patient now has a better understanding and will call back in 6 months for the repeat US as mentioned. Allergies As of Date: 02/18/2024 Noted Allergy Reaction BAKARI INHIBITORS 05/22/2016 3 - Cough DARVOCET A500 (PROPOXYPHENE N-BAKARI*04/24/2016 8 - GI Upset Date Reviewed: 02/03/2024 Reviewed by: Nahun Gustafson MD - Fully Assessed Reason for Visit: Patient Question [3627] Prescriptions as of 02/18/2024 - losartan (COZAAR) 100 mg tablet Take 1 tablet by mouth once daily. - triamterene-hydroCHLOROthi azide (MAXZIDE-25MG) 37.5-25 mg per tablet Take 1 tablet by mouth once daily. - omeprazole (PRILOSEC) 40 mg capsule Take 1 capsule by mouth once daily. - diclofenac (VOLTAREN) 1 % topical gel Apply 4 g to affected area four times daily as needed (for pain). As Directed. Problem List As Of Date 02/18/2024 Noted Resolved SPRAIN SHOULDER/ARM NOS [WSZ2151] 06/22/2008 09/25/2008 Rotator cuff (capsule) sprain [S43.429A] 09/25/2008 05/22/2016 Primary hypertension [I10] 05/07/2009 Hyperlipidemia [E78.5] 05/07/2009 Hypogonadism male [E29.1] 04/25/2010 05/22/2016 Other chronic pain [G89.29] 11/12/2011 Onychomycosis due to dermatophyte [B35.1] 02/08/2013 04/24/2016 Sprain of rhomboid [S23.8XXA] 06/12/2015 05/22/2016 Cervical myofascial strain [S16.1XXA] 06/12/2015 05/22/2016 Shoulder strain [S46.919A] 06/12/2015 04/17/2017 Strain of right shoulder [S46.911A] 08/10/2015 05/22/2016 Cervical strain [S16.1XXA] 08/10/2015 05/22/2016 Situational depression [F43.21] 09/17/2015 05/22/2016 Reactive depression [F32.9] 10/05/2015 04/24/2016 Chronic right-sided low back pain with right-si*10/25/2015 05/22/2016 Heel pain, bilateral [M79.671, M79.672] 10/25/2015 05/22/2016 Chronic pain [G89.29] 11/09/2015 05/22/2016 Recurrent major depression in partial remission*04/24/2016 Umbilical hernia without obstruction and withou*06/05/2016 06/11/2016 Strain of other muscles, fascia and tendons at *11/10/2016 04/17/2017 Sprain of other specified parts of right should*11/10/2016 04/17/2017 Other cervical disc degeneration, unspecified c*04/29/2017 Bursitis of both shoulders [M75.51, M75.52] 01/04/2020 Other forms of angina pectoris (HCC) [I20.89] 01/06/2020 S/P left rotator cuff repair [Z98.890] 04/16/2020 Partial nontraumatic tear of left rotator cuff *04/16/2020 Hypothyroidism, acquired [E03.9] 05/28/2021 10/16/2021 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] 06/07/2021 Osteoarthritis of both shoulders [M19.011, M19.*08/05/2021 Cervicalgia [M54.2] 08/05/2021 Rotator cuff impingement syndrome [M75.40] 08/05/2021 Rotator cuff syndrome [M75.100] 09/09/2021 Obesity, Class II, BMI 35-39.9 [E66.812] 09/09/2021 Subclinical hypothyroidism [E03.8] 10/16/2021 Acute pulmonary embolism without acute cor pulm*11/04/2021 Constipation due to opioid therapy [K59.03, T40*11/06/2021 High risk medications (not anticoagulants) long*12/20/2021 Cavernous malformation [Q28.3] 03/28/2022 Mild cognitive impairment with memory loss [G31*03/28/2022 Obesity, Class I, BMI 30-34.9 [E66.811] 06/30/2022 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] 01/16/2020 Diagnosed: 11/10/2022 Osteoarthritis of shoulder [M19.019] 04/15/2021 Diagnosed: 11/10/2022 COVID-19 [U07.1] 10/22/2021 Diagnosed: 11/10/2022 Dehydration [E86.0] 11/10/2022 Diagnosed: 11/10/2022 detention (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 of opiate analgesic [Z7*12/16/2016 Diagnosed: 11/10/2022 Superior glenoid labrum lesion of left shoulder*01/16/2020 Diagnosed: 11/10/2022 Tear of supraspinatus tendon [M75.100] 01/16/2020 Diagnosed: 11/10/2022 Myofascial pain syndrome [M79.18] 02/11/2023 Bipolar 2 disorder (HCC) [F31.81] 03/03/2023 Pre-op exam [Z01.818] 02/01/2024 Alcohol use [Z78.9] 02/01/2024 Anal fissure [K60.2] 02/01/2024 Hypothyroidism [E03.9] 02/01/2024 Other pulmonary embolism without acute cor pulm*02/01/2024 Encounter Status:Closed by DARYL ISIDRO on 02/18/24 [facility] CNOVon 02-03-2024 CNOV Office Visit (AGGENS 3) -- GERALD STALEY ([id number]) 1960 M Date Time Provider Department 02/03/24 2:00 PM NAHUN GUSTAFSON3 During your visit today, we recorded the following information about you: Blood pressure Weight Height 120/82 88.9 kg 1.626 m Nahun Gustafson MD 02/03/2024 3:13 PM Signed Nahun Gustafson M.D. Colon AND Rectal Surgery [address] [facility], [address] [place] [address] SUBJECTIVE Gerald Staley is a 63 year old White male status post hemorrhoidectomy HPI He is still having a fair amount of pain, denies nausea or vomiting but has been feeling constipated. He is taking oxycodone and Tylenol. He has had some low-grade fevers at home but they do not have a thermometer to check this. Review of Systems Constitutional: Positive for fever. Negative for chills. HENT: Negative for congestion, ear pain, hearing loss, sinus pain and sore throat. Eyes: Negative for blurred vision, double vision and pain. Respiratory: Negative for cough, shortness of breath and wheezing. Cardiovascular: Negative for chest pain, palpitations and leg swelling. Gastrointestinal: Positive for abdominal pain and constipation. Negative for diarrhea, heartburn, nausea and vomiting. Genitourinary: Positive for dysuria. Negative for frequency and urgency. Musculoskeletal: Positive for back pain, joint pain and neck pain. Skin: Negative for itching and rash. Neurological: Positive for dizziness, weakness and headaches. Endo/Heme/Allergies: Negative for environmental allergies. Does not bruise/bleed easily. Psychiatric/Behavioral: Positive for depression. Negative for memory loss. The patient is not nervous/anxious and does not have insomnia. PAST MEDICAL HISTORY Diagnosis Date Abnormal EKG 04/23/2017 inf [place] age undetermined Acute pulmonary embolism without acute cor pulmonale (HCC) Adenomatous colon polyp Anal fissure Anxiety Aorta disorder (HCC) Bipolar 2 disorder (HCC) Chicken pox Colon polyps Depression ED (erectile dysfunction) Headache HTN (hypertension) Hypogonadism male 04/25/2010 Hypothyroidism Myofascial pain dysfunction syndrome Obesity Osteoarthritis of multiple joints Pulmonary embolism (HCC) Rectal bleed Shingles Shoulder [...] - small - 5 year follow up EGD DIAGNOSTIC 12/2023 ESOPHAGOGASTRODUODENOSCOPY TRANSORAL DIAGNOSTIC 05/25/2018 Duodenitis, Gastritis FOOT SURGERY HX Right 2014 Cheilectomy, 1st metatarsophalangeal joint, OPEN REPAIR OF ROTATOR CUFF ACUTE Right 10/2016 Rotator cuff repair - Dr. Santamaria RECONSTRUCTION ROTATOR CUFF AVULSION CHRONIC Left 03/21/2010 Dr. Gant - [place] REPAIR UMBILICAL HERNIA 2017 RPR UMBILICAL HRNA 5 YRS/> REDUCIBLE 06/11/2016 simple SKIN GRAFT HX Right 1987 eyelid TONSILLECTOMY HX Childhood Social History Tobacco Use Smoking status: Never Smokeless tobacco: Never Vaping Use Vaping status: Never Used Substance Use Topics Alcohol use: Yes Alcohol/week: 6.0 standard drinks of alcohol Types: 6 Cans of Beer (12oz) per week Comment: 12 beers weekly Drug use: Not Currently Comment: no longer using. FAMILY HISTORY Problem Relation Age of Onset Diabetes Mother Hypertension Mother Arthritis Mother Breast Cancer Mother Dementia Mother Cancer Father throat Asthma No Family History Colon Cancer No Family History The ROS, medical, surgical, family, and social history were reviewed by Nahun Gustafson MD ALLERGIES Allergen Reactions Bakari Inhibitors Cough Darvocet A500 [Prop* GI Upset Current Outpatient Medications Medication Sig oxyCODONE IR (ROXICODONE) 5 mg immediate release tablet Take 1 tablet by mouth every 6 hours as needed for pain for up to 4 days. losartan (COZAAR) 100 mg tablet Take 1 tablet by mouth once daily. triamterene-hydroCHLOROthi azide (MAXZIDE-25MG) 37.5-25 mg per tablet Take 1 tablet by mouth once daily. omeprazole (PRILOSEC) 40 mg capsule Take 1 capsule by mouth once daily. diclofenac (VOLTAREN) 1 % topical gel Apply 4 g to affected area four times daily as needed (for pain). As Directed. No current facility-administered medications for this visit. OBJECTIVE BP 120/82 (BP Site: Left Arm, BP Position: Sitting, BP Cuff Size: Large Adult) Ht 162.6 cm (5' 4") Wt 88.9 kg (196 lb) BMI 33. (more content not included)... Normal [facility] ANES POSTPROC EVALon 024 ANES POSTPROC EVAL HNO ID: [id number] Author: CARRINGTON ROSA MD Service: Anesthesiology Author Type: Anesthesiologist Type: Anesthesia Postprocedure Evaluation Filed: 02/01/2024 18:18 Note Text: POST ANESTHESIA EVALUATION NOTE : 1960 Procedure Summary Date: 02/01/24 Room / Location: DC OR OR Anesthesia Start: 1540 Anesthesia Stop: 1656 Procedure: HEMORRHOIDECTOMY EXTERNAL AND INTERNAL 2 OR MORE COLUMNS/GROUPS Diagnosis: Anal fissure (Anal fissure [K60.2]) Surgeons: Nahun Gustafson MD Responsible Provider: Carrington Rosa MD Anesthesia Type: MAC ASA Status: 3 Anesthesia Type: MAC Last Vitals Vitals Value Taken Time BP 134/88 02/01/24 1715 Temp 36.4 ?C (97.5 ?F) 02/01/24 1652 HR SpO2 55 02/01/24 1720 Resp 14 02/01/24 1720 SpO2 98 % 02/01/24 1720 Vitals shown include unfiled device data. Post Anesthesia Patient Status Patient Evaluation: PACU. PACU/ICU Patient Condition: stable. Anticipated Disposition: phase 2 then home. Neurological Status: aware and responsive. Pulmonary Status: breathing comfortably on room air Airway Control: returned to baseline unsupported. Cardiovascular Status: stable. Pain Management: clinically adequate Postoperative Hydration: acceptable. Intraoperative Events: no significant anesthesia events Post Operative Nausea/Vomiting Status: no significant post operative nausea or vomiting Recommendation: continue current plan of care. Anesthesia Observations No Documentation SIGNATURE: Carrington Rosa MD PATIENT NAME: Gerald Staley DATE: February 01, 2024 TIME: 6:18 PM CSN: [id number] [facility] ANES PRE-OPon 02-01-2024 ANES PRE-OP HNO ID: [id number] Author: CARRINGTON ROSA MD Service: Anesthesiology Author Type: Anesthesiologist Type: Anesthesia Preprocedure Evaluation Filed: 02/01/2024 15:09 Note Text: ANESTHESIOLOGY DAY OF SURGERY NOTE : 1960 Procedure Information Date/Time: 02/01/24 1435 Procedure: LATERAL INTERNAL SPHINCTEROTOMY Location: [facility] OR Surgeons: Nahun Gustafson MD Estimated body mass index is 33.3 kg/m? as calculated from the following: Height as of 01/05/24: 162.6 cm (5' 4"). Weight as of 11/19/24: 88 kg (194 lb). Most recent hematocrit and potassium results: Hematocrit 51.3 11/30/2023 Potassium 4.0 11/30/2023 Relevant Problems CARDIO (+) Acute pulmonary embolism without acute cor pulmonale (HCC) (+) Aorta disorder (HCC) (+) Other forms of angina pectoris (HCC) (+) Other pulmonary embolism without acute cor pulmonale (HCC) (+) Primary hypertension ENDO (+) Hypothyroidism (+) Subclinical hypothyroidism I - PHYSICAL EVALUATION AIRWAY Patient intubated: No. Tracheostomy tube not present Mallampati: II. TM distance: >3 FB. Neck ROM: full ROM without neurological symptoms. Mouth opening: adequate. Short neck: no. Thick neck: no DENTAL Dental findings: teeth intact. Additional exam findings: yes. CARDIOVASCULAR Rhythm: regular Rate: normal PULMONARY Breath sounds clear to auscultation. II - ANESTHESIA PLAN ASA Score: 3 Anesthetic Plan: MAC The patient is not a current smoker. NPO Status: adequate Beta Ayanna Monitoring Plan Monitoring plan: standard ASA. Post Procedure Analgesic Plan Postoperative analgesic plan: multimodal analgesia. Informed Consent Anesthetic risks, benefits, alternatives, personnel and consent discussed: yes. Patient / Responsible Constitution Party agrees to proceed: yes Patient / Surrogate agrees to blood products: blood products not planned Vitals Value Taken Time BP 130/102 02/01/24 1427 Pulse 60 02/01/24 1427 Resp 16 02/01/24 1427 Temp 36 ?C (96.8 ?F) 02/01/24 1427 SpO2 99 % 02/01/24 1427 Facility-Administered Medications as of 02/01/2024 Medication Dose Route Frequency lidocaine (PF) 10 mg/mL (1 %) 1-2 mg injection (XYLOCAINE) 0.1-0.2 mL INTRADERMAL PRN NaCl 0.9% iv flush bag 20 mL INTRAVENOUS PRN Outpatient Medications as of 02/01/2024 Medication Sig diclofenac (VOLTAREN) 1 % topical gel Apply 4 g to affected area four times daily as needed (for pain). As Directed. [] hydrocortisone (ANUSOL-HC) 2.5 % rectal cream by RECTAL route two times a day as needed. (Patient not taking: Reported on 12/09/2023) I have interviewed and examined the patient. I have reviewed the medical record and/or the pre-anesthesia evaluation, pertinent labs, and test results. This contains updated information obtained within 48 hours of Surgery/Procedure. SIGNATURE: Carrington Rosa MD PATIENT NAME: Gerald Staley DATE: February 01, 2024 TIME: 2:49 PM CSN: [id number] [facility] BRIEF OP NOTon 02-01-2024 BRIEF OP NOT HNO ID: [id number] Author: ARYAN GALINDO DO Service: General Surgery Author Type: Resident Type: Brief Op Note Filed: 02/01/2024 17:10 Note Text: BRIEF OPERATIVE / PROCEDURE NOTE LOG ID: [id number] Surgery/Procedure Date: 02/01/2024 Incision/Procedure Start Time: 3:55 PM Incision Close/Procedure End Time: 4:44 PM Surgeon(s)/Proceduralist(s ) and Professor Of Mechanical Engineering(s): Surgeons and Role: * Nahun Gustafson MD - Primary * Aryan Galindo DO - Resident - Assisting No Additional Staff Procedure(s): Procedure(s) (LRB): HEMORRHOIDECTOMY EXTERNAL AND INTERNAL 2 OR MORE COLUMNS/GROUPS (N/A) Anesthesia: General ASA Class: Findings: Enlarged and engorged internal and external hemorrhoids Excision of left lateral internal hemorrhoid, right posterior internal/external hemorrhoid. Estimated Blood Loss: 20 mls Fluids: see anesthesia note UOP: 0 Antibiotics: Current Anti-Infective Meds (From admission, onward) None Specimens: ID Type Source Tests Collected by Time Destination A : Tissue Hemorrhoid, Resection SURGICAL PATHOLOGY Nahun Gustafson MD 02/01/2024 4:17 PM Drains: None Complications: None Pre-Op/Pre-Procedure Diagnosis: Pre-Op Diagnosis Codes: * Anal fissure [K60.2] Post-Op/Post-Procedure Diagnosis: Grade III internal hemorrhoids SIGNATURE: Aryan Galindo DO PATIENT NAME: Gerald Staley DATE: February 01, 2024 TIME: 5:08 PM Pager: Elective General Surgery - Green Service Pager: For questions or concerns Mon-Fri 6a-5p please page [phone]. After 5pm and on Weekends and Holidays, please page [phone] if in ICU or [phone] if on RNF. [facility] HISTORY PHYSICALon HISTORY PHYSICAL HNO ID: [id number] Author: DESI CARTER APRN.CNP Service: General Surgery Author Type: Nurse Practitioner Type: H&P Filed: 02/01/2024 14:42 Note Text: HISTORY AND PHYSICAL EXAMINATION SERVICE DATE: 02/01/2024 SERVICE TIME: 1430 PRIMARY CARE PHYSICIAN: Errol Cary MD Gerald Staley 1960 [id number] REASON FOR VISIT: Gerald Staley is a 63 year old male who is scheduled for....... Procedure(s): LATERAL INTERNAL SPHINCTEROTOMY (N/A) at the request of Dr. Nahun Gustafson for routine HANDP. The patient has the following: ACTIVE PROBLEM LIST Primary Hypertension Hyperlipidemia Other Chronic Pain Recurrent Major Depression in Partial Remission (Hcc) Other Cervical Disc Degeneration, Unspecified Cervical Region Bursitis of Both Shoulders Other Forms of Angina Pectoris (Hcc) S/P Left Rotator Cuff Repair Partial Nontraumatic Tear of Left Rotator Cuff Aorta Disorder (Hcc) Osteoarthritis of Both Shoulders Cervicalgia Rotator Cuff Impingement Syndrome Rotator Cuff Syndrome Obesity, Class II, Bmi 35-39.9 Subclinical Hypothyroidism Acute Pulmonary Embolism Without Acute Cor Pulmonale (Hcc) Constipation Due to Opioid Therapy High Risk Medications (Not Anticoagulants) Long-Term Use Cavernous Malformation Mild Cognitive Impairment With Memory Loss Obesity, Class I, Bmi 30-34.9 Chondromalacia Osteoarthritis of Shoulder Covid-19 Dehydration [employer] (Current) Use of Opiate Analgesic Superior Glenoid Labrum Lesion of Left Shoulder Tear of Supraspinatus Tendon Myofascial Pain Syndrome Bipolar 2 Disorder (Hcc) Subjective CHIEF COMPLAINT: The reason for this visit is to perform a comprehensive review of the patient's past medical history, assess their current health status and obtain any additional testing required based on anesthesia guidelines. We will also identify any potential anesthesia problems or contraindications to the planned procedure. HPI: Gerald Staley is a 63 year old male who is scheduled for above procedure. He has h/o intermittent anal pain and rectal bleeding for the last several years. He more recently has been experiencing abdominal pain. Exam done at Dr. Gustafson's office demonstrated, "Moderately enlarged hemorrhoids in all 3 tridents, and in the posterior anal canal a small posterior fissure ~ 5 mm is found where he does localize tenderness " After discussion with the surgeon patient agrees to surgical intervention. PAST MEDICAL HISTORY Diagnosis Date Abnormal EKG 04/23/2017 inf [place] age undetermined Acute pulmonary embolism without acute cor pulmonale (HCC) Adenomatous colon polyp Anal fissure Anxiety Aorta disorder (HCC) Bipolar 2 disorder (HCC) Chicken pox Colon polyps Depression ED (erectile dysfunction) Headache HTN (hypertension) Hypogonadism male 04/25/2010 Hypothyroidism Myofascial pain dysfunction syndrome Obesity Osteoarthritis of multiple joints Pulmonary embolism (HCC) Rectal bleed Shingles Shoulder [...] - small - 5 year follow up EGD DIAGNOSTIC 12/2023 ESOPHAGOGASTRODUODENOSCOPY TRANSORAL DIAGNOSTIC 05/25/2018 Duodenitis, Gastritis FOOT SURGERY HX Right 2013 Cheilectomy, 1st metatarsophalangeal joint, OPEN REPAIR OF ROTATOR CUFF ACUTE Right 10/2016 Rotator cuff repair - Dr. Santamaria RECONSTRUCTION ROTATOR CUFF AVULSION CHRONIC Left 03/21/2010 Dr. Gant - [place] REPAIR UMBILICAL HERNIA 2017 RPR UMBILICAL HRNA 5 YRS/> REDUCIBLE 06/11/2016 simple SKIN GRAFT HX Right 1986 eyelid TONSILLECTOMY HX Childhood FAMILY HISTORY Problem Relation Age of Onset Diabetes Mother Hypertension Mother Arthritis Mother Breast Cancer Mother Dementia Mother Cancer Father throat Asthma No Family History Colon Cancer No Family History SOCIAL HISTORY: Social History Tobacco Use Smoking status: Never Smokeless tobacco: Never Vaping Use Vaping status: Never Used Substance Use Topics Alcohol use: Yes Alcohol/week: 6.0 standard drinks of alcohol Types: 6 Cans of Beer (12oz) per week Comment: 12 pack a week Drug use: Not Currently Comment: no longer using. Prior to Admission medications as of 02/01/24 0819 Medication Sig Last Dose Taking losartan (COZAAR) 100 mg tablet Take 1 tablet by mouth once daily. triamterene-hydroCHLOROthi azide (MAXZIDE-25MG) 37.5-25 mg per tablet Take 1 tablet by mouth once daily. omeprazole (PRILOSEC) (more content not included)... Normal [facility] OPERATIVE NOon 02-01-2024 OPERATIVE NO HNO ID: [id number] Author: NAHUN GUSTAFSON MD Service: Colorectal Author Type: Physician Type: Operative Report Filed: 02/01/2024 17:09 Note Text: DEPARTMENT OF SURGERY OPERATIVE NOTE OPERATIVE REPORT Log ID: [id number] Surgery Date: 02/01/2024 Incision/Procedure Start Time: 3:55 PM Incision Close/Procedure End Time: 4:44 PM Surgeon(s) and Professor Of Mechanical Engineering(s): Surgeons and Role: * Nahun Gustafson MD - Primary * Aryan Galindo DO - Resident - Assisting Preoperative Diagnosis: Anal fissure [K60.2] Postoperative Diagnosis: Internal and external hemorrhoids with prolapse and bleeding PROCEDURE AND ANESTHESIA TYPE: Procedure(s) and Anesthesia Type: * HEMORRHOIDECTOMY EXTERNAL AND INTERNAL 2 OR MORE COLUMNS/GROUPS - General Findings: While in the office we thought there was a fissure in the posterior midline we did not see this on the examination under anesthesia instead finding 3 enlarged hemorrhoids in the left lateral, right lateral, and right posterior positions which were fairly inflamed. We decided given these findings that hemorrhoid removal would be better for symptom control and proceeded with this Indications and consent: The patient is a 63 year old male who presented my office with blood per rectum and anal discomfort and was found on examination to have an anal fissure. We discussed examination under anesthesia and lateral internal sphincterotomy given these findings, but did discuss the possibility of other findings and managing these as we saw fit. A thorough discussion of the risks and benefits of surgery was undertaken in the office after which he requested to undergo excisional hemorrhoidectomy. Description of Procedure: Patient was placed in high lithotomy. Timeout was completed x 2. he was prepped and draped in the usual fashion. Digital rectal exam was not remarkable. Anoscopy was completed and showed significantly large hemorrhoids at the posterior position as well as on the left lateral with some enlarged external hemorrhoids in the right posterior position. We looked carefully for a fissure as we had thought was present in the office, but on careful examination did not find a fissure or evidence of a healed fissure. After careful examination we decided that the hemorrhoids which were in the same position as that tenderness during his examination were probably to blame for his discomfort and decided proceed with hemorrhoidectomy. The largest hemorrhoid column in the posterior midline position was grasped with a hemostat and retracted outward to view its pedicle. Half percent Marcaine with epinephrine was used to inject the skin at this column and to perform some hydro-dissection of the hemorrhoid. We also put a bilateral pudendal block at this time for a total of 20 cc of half percent Marcaine with epinephrine, and then used another 10 cc in a perianal block. We made a V-shaped incision over the external skin carried this down into the plane above the internal sphincter carefully the hemorrhoidal tissue from the internal sphincter. We proceeded proximally until we had isolated the hemorrhoid pedicle and then performed a figure of 8 suture with 3-0 Chromic of the pedicle. We then proceeded to run a closure of this using the same 3-0 Chromic, reapproximating the mucosal edges and then continuing this on the perianal skin leaving a small aperture of perianal skin. We verified good hemostasis in the area of this hemorrhoid column. Next we grasped the next largest column in the left lateral position. We made a V-shaped incision over the perianal skin carried this down into the plane above the internal sphincter carefully the hemorrhoidal tissue from the internal sphincter. We proceeded proximally until we had isolated the hemorrhoid pedicle and then performed a figure of 8 suture with 3-0 Chromic of the pedicle. We then proceeded to run a closure of this using the same 3-0 Chromic, reapproximating the mucosal edges and then continuing this on the perianal skin leaving a small aperture of perianal skin. We verified good hemostasis in the area of this hemorrhoid column. Finally we grasped the external hemorrhoids in the right posterior position. We made a V-shaped incision over the external skin carried this down under the external hemorrhoids to the proximal extent at which point we did not see much internal disease in this location and we cut off at this point. We then ran a closure with 3-0 chromic suture starting proximally and working distally. We verified good hemostasis in the area of this hemorrhoid column. We again evaluated all closure sites for good hemostasis and noted this to be the case. At this point we completed the surgery, a Gelfoam with Nupercaine cream was placed in the anal canal and the patient was fitted with mesh panties and a pad. All counts of sponges and instruments were correct x 2. (more content not included)... Normal [facility] SURGICAL PATHOLOGYon 024 CASE REPORT Normal [facility] Comment on above: Order Comment: Speci men Type: TISSUE SPECIMENOrdering Facility: [facility] Address: [address] [place] [address] Result Comment: Surg ica Pathology Report Case: [id number] Authorizing Provider: Nahun Gustafson MD Collected: 02/01/2024 04:17 PM Ordering Location: [facility] Received: 02/02/2024 08:13 AM Pathologist: Marielena Calderón MD Specimen: Hemorrhoid, Resection Performed By: #### S ####[facility] LABORATORYCLIA [id number] [address] CLINICAL HISTORY Normal [facility] Comment on above: Order Comment: Speci men Type: TISSUE SPECIMENOrdering Facility: [facility] Address: [address] [place] [address] Result Comment: Pre- op diagnosis: Anal fissure [K60.2] Performed By: #### S ####[facility] LABORATORYCLIA [id number] [address] FINAL DIAGNOSIS [facility] Comment on above: Order Comment: Speci men Type: TISSUE SPECIMENOrdering Facility: [facility] Address: [address] [place] [address] Result Comment: Hemo rrhoidal tissue, excision: - Squamous-lined tissue with vascular ectasia compatible with hemorrhoids. - Focus of sclerosis with calcification. Performed By: #### S ####[facility] LABORATORYCLIA [id number] [address] FINAL PERFORMING LAB Normal [facility] Comment on above: Order Comment: Speci men Type: TISSUE SPECIMENOrdering Facility: [facility] Address: [address] [place] [address] Result Comment: Diag nostic interpretation performed at [facility], [address] [place] [address] CLIA# [id number] School Psychometrist: Jorge L Roberts M.D. Performed By: #### S ####[facility] LABORATORYCLIA [id number] [address] OF [facility] GROSS DESCRIPTION Normal [facility] Comment on above: Order Comment: Speci men Type: TISSUE SPECIMENOrdering Facility: [facility] Address: [address] [place] [address] Result Comment: Matthieu garciarrhobella, Resection Received in formalin labeled as "hemorrhoid resection" are 3 pink-samaniego wrinkled mucosal covered tissue fragments aggregating to 4.4 x 4.1 x 0.8 cm. Some lightly pigmented, wrinkled, scantly hairbearing possible skin is identified. Sectioning reveals red-pink, hemorrhagic cut surfaces. Physical Therapy Assistant Instructor sections are submitted in 1 cassette. Gross examination performed at [facility], [address] [place] [address] February 02, 2024 12:02 PM Performed By: #### S ####[facility] LABORATORYCLIA [id number] [address] Sarita 01-13-2024 [facility] Telephone ([facility]ST[facility]) -- GERALD STALEY ([id number]) 1960 M Date Time Provider Department 01/13/24 GIA VENTURAR During your visit today, we recorded the following information about you: Daryl Isidro MA 01/13/2024 2:25 PM Signed [facility] for biopsy results or to review them on mychart. Allergies As of Date: 01/13/2024 Noted Allergy Reaction BAKARI INHIBITORS 05/22/2016 3 - Cough DARVOCET A500 (PROPOXYPHENE N-BAKARI*04/24/2016 8 - GI Upset Date Reviewed: 01/05/2024 Reviewed by: Jennifer Azul RN - Fully Assessed Reason for Visit: Results [95] Prescriptions as of 01/21/2024 - losartan (COZAAR) 100 mg tablet Take 1 tablet by mouth once daily. - triamterene-hydroCHLOROthi azide (MAXZIDE-25MG) 37.5-25 mg per tablet Take 1 tablet by mouth once daily. - omeprazole (PRILOSEC) 40 mg capsule Take 1 capsule by mouth once daily. - diclofenac (VOLTAREN) 1 % topical gel Apply 4 g to affected area four times daily as needed (for pain). As Directed. Problem List As Of Date 01/13/2024 Noted Resolved SPRAIN SHOULDER/ARM NOS [MXH9809] 06/22/2008 09/25/2008 Rotator cuff (capsule) sprain [S43.429A] 09/25/2008 05/22/2016 Primary hypertension [I10] 05/07/2009 Hyperlipidemia [E78.5] 05/07/2009 Hypogonadism male [E29.1] 04/25/2010 05/22/2016 Other chronic pain [G89.29] 11/12/2011 Onychomycosis due to dermatophyte [B35.1] 02/08/2013 04/24/2016 Sprain of rhomboid [S23.8XXA] 06/12/2015 05/22/2016 Cervical myofascial strain [S16.1XXA] 06/12/2015 05/22/2016 Shoulder strain [S46.919A] 06/12/2015 04/17/2017 Strain of right shoulder [S46.911A] 08/10/2015 05/22/2016 Cervical strain [S16.1XXA] 08/10/2015 05/22/2016 Situational depression [F43.21] 09/17/2015 05/22/2016 Reactive depression [F32.9] 10/05/2015 04/24/2016 Chronic right-sided low back pain with right-si*10/25/2015 05/22/2016 Heel pain, bilateral [M79.671, M79.672] 10/25/2015 05/22/2016 Chronic pain [G89.29] 11/09/2015 05/22/2016 Recurrent major depression in partial remission*04/24/2016 Umbilical hernia without obstruction and withou*06/05/2016 06/11/2016 Strain of other muscles, fascia and tendons at *11/10/2016 04/17/2017 Sprain of other specified parts of right should*11/10/2016 04/17/2017 Other cervical disc degeneration, unspecified c*04/29/2017 Bursitis of both shoulders [M75.51, M75.52] 01/04/2020 Other forms of angina pectoris (HCC) [I20.89] 01/06/2020 S/P left rotator cuff repair [Z98.890] 04/16/2020 Partial nontraumatic tear of left rotator cuff *04/16/2020 Hypothyroidism, acquired [E03.9] 05/28/2021 10/16/2021 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] 06/07/2021 Osteoarthritis of both shoulders [M19.011, M19.*08/05/2021 Cervicalgia [M54.2] 08/05/2021 Rotator cuff impingement syndrome [M75.40] 08/05/2021 Rotator cuff syndrome [M75.100] 09/09/2021 Obesity, Class II, BMI 35-39.9 [E66.812] 09/09/2021 Subclinical hypothyroidism [E03.8] 10/16/2021 Acute pulmonary embolism without acute cor pulm*11/04/2021 Constipation due to opioid therapy [K59.03, T40*11/06/2021 High risk medications (not anticoagulants) long*12/20/2021 Cavernous malformation [Q28.3] 03/28/2022 Mild cognitive impairment with memory loss [G31*03/28/2022 Obesity, Class I, BMI 30-34.9 [E66.811] 06/30/2022 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] 01/16/2020 Diagnosed: 11/10/2022 Osteoarthritis of shoulder [M19.019] 04/15/2021 Diagnosed: 11/10/2022 COVID-19 [U07.1] 10/22/2021 Diagnosed: 11/10/2022 Dehydration [E86.0] 11/10/2022 Diagnosed: 11/10/2022 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 Author Type: Registered Nurse Type: [id number] Filed: 01/05/2024 09:04 Note Text: The patient received a copy of EGD discharge instructions that contain information for how to contact the physician who performed the procedure and when to seek medical care. Normal [facility] ANES POSTPROC EVALon 024 ANES POSTPROC EVAL HNO ID: [id number] Author: MILDRED NEVILLE APRN.CRNA Service: Anesthesiology Author Type: Nurse Low Pressure Boiler Operator Type: Anesthesia Postprocedure Evaluation Filed: 01/05/2024 09:02 Note Text: POST ANESTHESIA EVALUATION NOTE : 1960 Procedure Summary Date: 01/05/24 Room / Location: Ambulatory Surgery Anesthesia Start: 842 Anesthesia Stop: 858 Procedure: EGD DIAGNOSTIC Diagnosis: Bilateral upper abdominal pain (Upper abdominal pain) Scheduled Providers: David Fontenot MD Responsible Provider: Mildred Neville APRN.CRNA Anesthesia Type: MAC ASA Status: 3 Anesthesia Type: MAC Last Vitals Vitals Value Taken Time BP 167/107 01/05/24 0900 Temp 36.1 ?C (97 ?F) 01/05/24 09 Pulse 65 01/05/24 0900 Resp 16 01/05/24 0900 SpO2 94 % 01/05/24 0900 Post Anesthesia Patient Status Patient Evaluation: PACU. PACU/ICU Patient Condition: stable. Anticipated Disposition: phase 2 then home. Neurological Status: aware and responsive. Pulmonary Status: breathing comfortably on room air Airway Control: returned to baseline unsupported. Cardiovascular Status: stable. Pain Management: clinically adequate - multimodal analgesia pain management approach Postoperative Hydration: acceptable. Intraoperative Events: no significant anesthesia events Post Operative Nausea/Vomiting Status: no significant post operative nausea or vomiting Recommendation: continue current plan of care. Anesthesia Observations No Documentation SIGNATURE: Mildred Neville APRN.CRNA PATIENT NAME: Gerald Staley DATE: January 05, 2024 TIME: 9:02 AM CSN: [id number] Normal [facility] EGD Study observation Narrat elizabeth 01-05-2024 [facility] Patient Name: Gerald Staley Procedure Date: 01/05/2024 8:35 AM Date of : 1960 Admit Type: Outpatient Age: 63 Room: [place] [address] Gender: Male Note Status: Finalized Attending MD: David Fontenot MD, [id number] Procedure: Upper GI endoscopy Indications: Upper abdominal pain, Diarrhea Providers: David Fontenot MD Referring Physician: Gia Ventura (pa) (Referring MD) Medicines: Propofol per Anesthesia Complications: No immediate complications. Requesting Provider: Procedure: Pre-Anesthesia Assessment: - Prior to the procedure, a History and Physical was performed, and patient medications and allergies were reviewed. The patient's tolerance of previous anesthesia was also reviewed. The risks and benefits of the procedure and the sedation options and risks were discussed with the patient. All questions were answered, and informed consent was obtained. Prior Anticoagulants: The patient has taken no anticoagulant or antiplatelet agents. ASA Grade Assessment: III - A patient with severe systemic disease. After reviewing the risks and benefits, the patient was deemed in satisfactory condition to undergo the procedure. After obtaining informed consent, the endoscope was passed under direct vision. Throughout the procedure, the patient's blood pressure, pulse, and oxygen saturations were monitored continuously. The Endoscope was introduced through the mouth, and advanced to the second part of duodenum. I was present and participated during the entire procedure, including non-morrissey portions, and during the administration and monitoring of Moderate Sedation. The upper GI endoscopy was accomplished without difficulty. The patient tolerated the procedure well. Moderate Sedation: MAC anesthesia was administered by the anesthesia team. Findings: The Z-line was irregular and was found 39 cm from the incisors. LA Grade B (one or more mucosal breaks greater than 5 mm, not extending between the tops of two mucosal folds) esophagitis with no bleeding was found 39 cm from the incisors. A patulous lower esophageal sphincter was found. The cardia, gastric fundus and gastric body were normal. The gastric antrum was normal. Biopsies were taken with a cold forceps for histology. Patchy mildly erythematous mucosa without active bleeding and with no stigmata of bleeding was found in the duodenal bulb. Biopsies for histology were taken with a cold forceps for evaluation of celiac disease. The second portion of the duodenum was normal. Biopsies were taken with a cold forceps for histology. Impression: - Z-line irregular, 39 cm from the incisors. - LA Grade B reflux esophagitis with no bleeding. - Patulous lower esophageal sphincter. - Normal cardia, gastric fundus and gastric body. - Normal antrum. Biopsied. - Erythematous duodenopathy. Biopsied. - Normal second portion of the duodenum. Biopsied. Recommendation: - Resume previous diet. - Continue present medications. - Await pathology results. - The patient is not currently taking anticoagulant or antiplatelet agents. - Use Prilosec (omeprazole) 40 mg PO daily daily. - Patient has a contact number available for emergencies. The signs and symptoms of potential delayed complications were discussed with the patient. Return to normal activities tomorrow. Written discharge instructions were provided to the patient. Procedure Code(s): --- Professional --- 89471, Esophagogastroduodenoscopy , flexible, transoral; with biopsy, single or multiple CPT copyright 2020 [employer] (more content not included)... PROVATION [facility] Radiology Study observation (narrative) [facility] HISTORY PHYSICALon HISTORY PHYSICAL HNO ID: [id number] Author: DAVID FONTENOT MD Service: Gastroenterology Author Type: Physician Type: H&P Filed: 01/05/2024 08:44 Note Text: HISTORY AND PHYSICAL Gerald Staley, 63 year old male here for EGD to evaluate upper abdominal pain and diarrhea Current history and physical on file: No Is a new History and Physical required for today's visit? Yes Indication for procedure: Abdominal pain and Diarrhea PROCEDURE(S) SCHEDULED FOR: EGD (Esophagogastroduodenoscop y) with or without biopsies, removal of polyps or lesions, dilation ( any means), treatment of bleeding ( any means), Barrx treatment of Jose Guadalupe's Esophagus, image tube placement or cryo therapy treatment based on clinical findings. BASELINE BEHAVIOR: Calm BASELINE ORIENTATION: A AND O x3 All medications and allergies reviewed: Yes Skin Assessment: Warm dry muscus membranes pink Airway/Respiratory Assessment: Airway: visualization of the uvula- Yes Mouth: opening greater than 2 fingerbreadths- Yes Neck: full range of motion- Yes Breath sounds clear/equal- Yes Cardiac Assessment: Regular rate and rhythm without murmur Abdominal Assessment: Abdomen soft, non-tender, no masses or organomegaly. Sedation Plan: Deep Additional Comments: None David Fontenot MD Normal [facility] SURGICAL PATHOLOGYon 024 CASE REPORT Normal [facility] Comment on above: Order Comment: Mariely waite Type: BLOOD SPECIMEN Ordering Facility: [facility] Address: [address] [place] [address] Result Comment: Surg ica Pathology Report Case: [id number] Authorizing Provider: David Fontenot, Collected: 01/05/2024 08:51 AM Ordering Location: Ambulatory Surgery Received: 01/05/2024 08:08 PM Pathologist: Jeff Quesada MD Specimens: A) - Small Bowel, Duodenum, Biopsy, bulb B) - Small Bowel, Duodenum, Biopsy, descending C) - Stomach, Antrum, Biopsy Performed By: #### 1 7859-0 #### [facility] CLIA [id number] [address] [place] [address] [place] [address] [place] DIAGNOSIS COMMENT Normal [facility] Comment on above: Order Comment: Mariely waite Type: BLOOD SPECIMEN Ordering Facility: [facility] Address: [address] [place] [address] Result Comment: A. T his pattern of injury, gastric foveolar metaplasia, is nonspecific but raises the possibility of peptic duodenitis or NSAID-associated mucosal injury. Correlation with clinical and endoscopic findings is recommended. B. No microorganisms morphologically compatible with Helicobacter pylori are identified on routine H&E stained slides. Performed By: #### 1 7859-0 #### [facility] CLIA [id number] [address] [place] [address] OF [facility] FINAL DIAGNOSIS Normal [facility] Comment on above: Order Comment: Speci men Type: BLOOD SPECIMEN Ordering Facility: [facility] Address: [address] [place] [address] Result Comment: A. S mall bowel, duodenum bulb, biopsy: - Duodenal mucosa with gastric foveolar metaplasia; negative for celiac disease, granulomas or dysplasia; see comment. B. Small bowel, duodenum descending , biopsy: - Duodenal mucosa with no pathologic diagnostic abnormality; negative for celiac disease, granulomas or dysplasia. C. Stomach, antrum, biopsy: - Gastric antral body type mucosa with no pathologic diagnostic abnormality; see comment. Performed By: #### 1 7859-0 #### [facility] CLIA [id number] [address] [place] [address] OF [facility] FINAL PERFORMING LAB Normal [facility] Comment on above: Order Comment: Speci men Type: BLOOD SPECIMEN Ordering Facility: [facility] Address: [address] [place] [address] Result Comment: Diag nostic interpretation performed at [facility], [address] [place] [address] CLIA# [id number] School Psychometrist: Jeff Quesada M.D. Performed By: #### 1 7859-0 #### [facility] CLIA [id number] [address] [place] [address] STATES OF [facility] GROSS DESCRIPTION Normal [facility] Comment on above: Order Comment: Speci men Type: BLOOD SPECIMEN Ordering Facility: [facility] Address: [address] [place] [address] Result Comment: A. S mall Bowel, Duodenum, Biopsy Received in formalin are two pieces of samaniego, soft tissue aggregating to 0.6 x 0.3 x 0.1 cm. Totally submitted in one cassette. B. Small Bowel, Duodenum, Biopsy Received in formalin are multiple pieces of samaniego, soft tissue aggregating to 1.8 x 0.3 x 0.1 cm. Totally submitted in one cassette. C. Stomach, Antrum, Biopsy Received in formalin are multiple pieces of samaniego, soft tissue aggregating to 1.9 x 0.3 x 0.1 cm. Totally submitted in one cassette. DB January 05, 2024 10:10 PM Gross examination performed at [facility], [address] [place] [address] Performed By: #### 1 7859-0 #### [facility] CLIA [id number] [address] [place] [address] OF [facility] Upper GI endoscopyon 01-04- 024 Upper GI endoscopy [facility] Gastrointestinal Endoscopy Patient Name: Gerald Staley Procedure Date: 01/05/2024 8:35 AM Date of : 1960 Admit Type: Outpatient Age: 63 Room: [place] [address] Gender: Male Note Status: Finalized Attending MD: David Fontenot MD, [id number] Procedure: Upper GI endoscopy Indications: Upper abdominal pain, Diarrhea Providers: David Fontenot MD Referring Physician: Gia Ventura (pa) (Referring MD) Medicines: Propofol per Anesthesia Complications: No immediate complications. Requesting Provider: Procedure: Pre-Anesthesia Assessment: - Prior to the procedure, a History and Physical was performed, and patient medications and allergies were reviewed. The patient's tolerance of previous anesthesia was also reviewed. The risks and benefits of the procedure and the sedation options and risks were discussed with the patient. All questions were answered, and informed consent was obtained. Prior Anticoagulants: The patient has taken no anticoagulant or antiplatelet agents. ASA Grade Assessment: III - A patient with severe systemic disease. After reviewing the risks and benefits, the patient was deemed in satisfactory condition to undergo the procedure. After obtaining informed consent, the endoscope was passed under direct vision. Throughout the procedure, the patient's blood pressure, pulse, and oxygen saturations were monitored continuously. The Endoscope was introduced through the mouth, and advanced to the second part of duodenum. I was present and participated during the entire procedure, including non-morrissey portions, and during the administration and monitoring of Moderate Sedation. The upper GI endoscopy was accomplished without difficulty. The patient tolerated the procedure well. Moderate Sedation: MAC anesthesia was administered by the anesthesia team. Findings: The Z-line was irregular and was found 39 cm from the incisors. LA Grade B (one or more mucosal breaks greater than 5 mm, not extending between the tops of two mucosal folds) esophagitis with no bleeding was found 39 cm from the incisors. A patulous lower esophageal sphincter was found. The cardia, gastric fundus and gastric body were normal. The gastric antrum was normal. Biopsies were taken with a cold forceps for histology. Patchy mildly erythematous mucosa without active bleeding and with no stigmata of bleeding was found in the duodenal bulb. Biopsies for histology were taken with a cold forceps for evaluation of celiac disease. The second portion of the duodenum was normal. Biopsies were taken with a cold forceps for histology. Impression: - Z-line irregular, 39 cm from the incisors. - LA Grade B reflux esophagitis with no bleeding. - Patulous lower esophageal sphincter. - Normal cardia, gastric fundus and gastric body. - Normal antrum. Biopsied. - Erythematous duodenopathy. Biopsied. - Normal second portion of the duodenum. Biopsied. Recommendation: - Resume previous diet. - Continue present medications. - Await pathology results. - The patient is not currently taking anticoagulant or antiplatelet agents. - Use Prilosec (omeprazole) 40 mg PO daily daily. - Patient has a contact number available for emergencies. The signs and symptoms of potential delayed complications were discussed with the patient. Return to normal activities tomorrow. Written discharge instructions were provided to the patient. Procedure Code(s): --- Professional --- 20951, Esophagogastroduodenoscopy , flexible, transoral; with biopsy, single or multiple CPT copyright 2020 [employer]. All rights reserved. The codes documented in this report are preliminary and upon resource teacher review may be revised to meet current compliance requirements. Attending Participation: I personally performed the entire procedure. Scope In: 8:47:53 AM Scope Out: 8:54:[address] ShamMD David Kim MD 01/05/2024 9:00:08 AM This report has been signed electronically by David Fontenot MD Number of Addenda: 0 Note Initiated On: 01/05/2024 8:35 AM Estimated Blood Loss: Estimated blood loss: none. Normal [facility] ANES PRE-OPon 12-31-2023 ANES PRE-OP HNO ID: [id number] Author: MILDRED NEVILLE APRN.CRNA Service: Anesthesiology Author Type: Nurse Low Pressure Boiler Operator Type: Anesthesia Preprocedure Evaluation Filed: 01/05/2024 08:40 Note Text: ANESTHESIOLOGY DAY OF SURGERY NOTE : 1960 Procedure Information Date/Time: 01/05/24 0800 Procedure: EGD DIAGNOSTIC Location: Ambulatory Surgery Estimated body mass index is 32.53 kg/m? as calculated from the following: Height as of 12/09/23: 164.5 cm (5' 4.75"). Weight as of 12/09/23: 88 kg (194 lb). Most recent hematocrit and potassium results: Hematocrit 51.3 11/30/2023 Potassium 4.0 11/30/2023 Relevant Problems CARDIO (+) Acute pulmonary embolism without acute cor pulmonale (HCC) (+) Aorta disorder (HCC) (+) Other forms of angina pectoris (HCC) (+) Primary hypertension ENDO (+) Subclinical hypothyroidism I - PHYSICAL EVALUATION AIRWAY Patient intubated: No. Tracheostomy tube not present Mallampati: II. TM distance: >3 FB. Neck ROM: full ROM without neurological symptoms. Mouth opening: adequate. Short neck: no. Thick neck: no Mars present: yes DENTAL Dental findings: teeth intact. Dentures, upper: partial. Additional exam findings: no II - ANESTHESIA PLAN ASA Score: 3 Anesthetic Plan: MAC The patient is not a current smoker. NPO Status: adequate Beta Ayanna Monitoring Plan Monitoring plan: standard ASA. Post Procedure Analgesic Plan Postoperative analgesic plan: parenteral or oral opioids and multimodal analgesia. Informed Consent Anesthetic risks, benefits, alternatives, personnel and consent discussed: yes. Patient / Responsible Constitution Party agrees to proceed: yes Patient / Surrogate agrees to blood products: blood products not planned Significant changes in the patient condition since the History and Physical, not otherwise documented in primary service progress note: no. Potential Anesthesia issues that may suggest increased risk of complications or contraindication to planned procedure: none. Discussed the possibility of lip / dental damage: yes No vitals data found for the desired time range. Outpatient Medications as of 01/05/2024 Medication Sig - losartan (COZAAR) 100 mg tablet Take 1 tablet by mouth once daily. - triamterene-hydroCHLOROthi azide (MAXZIDE-25MG) 37.5-25 mg per tablet Take 1 tablet by mouth once daily. - diclofenac (VOLTAREN) 1 % topical gel Apply 4 g to affected area four times daily as needed (for pain). As Directed. (Patient not taking: Reported on 12/09/2023) No current facility-administered medications on file as of 01/05/2024. I have interviewed and examined the patient. I have reviewed the medical record and/or the pre-anesthesia evaluation, pertinent labs, and test results. This contains updated information obtained within 48 hours of Surgery/Procedure. SIGNATURE: Mildred Neville APRN.CONTINUOUS MINER PATIENT NAME: Gerald Ureñat DATE: December 31, 2023 TIME: 12:22 PM CSN: [id number] [facility] -- LUÍSGERALD Donovan ([id number]) 1960 M Date Time Provider Department 12/29/23 GLEN BROWNR During your visit today, we recorded the following information about you: Radha Ren 12/29/2023 9:12 AM Signed Pre op call - LM on VM Allergies As of Date: 12/29/2023 Noted Allergy Reaction BAKARI INHIBITORS 05/22/2016 3 - Cough DARVOCET A500 (PROPOXYPHENE N-BAKARI*04/24/2016 8 - GI Upset Date Reviewed: 12/09/2023 Reviewed by: Nahun Gustafson MD - Fully Assessed Reason for Visit: PreOp Call [1754] Prescriptions as of 12/29/2023 - losartan (COZAAR) 100 mg tablet Take 1 tablet by mouth once daily. - triamterene-hydroCHLOROthi azide (MAXZIDE-25MG) 37.5-25 mg per tablet Take 1 tablet by mouth once daily. - diclofenac (VOLTAREN) 1 % topical gel Apply 4 g to affected area four times daily as needed (for pain). As Directed. Problem List As Of Date 12/29/2023 Noted Resolved SPRAIN SHOULDER/ARM NOS [[id number]] 06/22/2008 09/25/2008 Rotator cuff (capsule) sprain [S43.429A] 09/25/2008 05/22/2016 Primary hypertension [I10] 05/07/2009 Hyperlipidemia [E78.5] 05/07/2009 Hypogonadism male [E29.1] 04/25/2010 05/22/2016 Other chronic pain [G89.29] 11/12/2011 Onychomycosis due to dermatophyte [B35.1] 02/08/2013 04/24/2016 Sprain of rhomboid [S23.8XXA] 06/12/2015 05/22/2016 Cervical myofascial strain [S16.1XXA] 06/12/2015 05/22/2016 Shoulder strain [S46.919A] 06/12/2015 04/17/2017 Strain of right shoulder [S46.911A] 08/10/2015 05/22/2016 Cervical strain [S16.1XXA] 08/10/2015 05/22/2016 Situational depression [F43.21] 09/17/2015 05/22/2016 Reactive depression [F32.9] 10/05/2015 04/24/2016 Chronic right-sided low back pain with right-si*10/25/2015 05/22/2016 Heel pain, bilateral [M79.671, M79.672] 10/25/2015 05/22/2016 Chronic pain [G89.29] 11/09/2015 05/22/2016 Recurrent major depression in partial remission*04/24/2016 Umbilical hernia without obstruction and withou*06/05/2016 06/11/2016 Strain of other muscles, fascia and tendons at *11/10/2016 04/17/2017 Sprain of other specified parts of right should*11/10/2016 04/17/2017 Other cervical disc degeneration, unspecified c*04/29/2017 Bursitis of both shoulders [M75.51, M75.52] 01/04/2020 Other forms of angina pectoris (HCC) [I20.89] 01/06/2020 S/P left rotator cuff repair [Z98.890] 04/16/2020 Partial nontraumatic tear of left rotator cuff *04/16/2020 Hypothyroidism, acquired [E03.9] 05/28/2021 10/16/2021 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] 06/07/2021 Osteoarthritis of both shoulders [M19.011, M19.*08/05/2021 Cervicalgia [M54.2] 08/05/2021 Rotator cuff impingement syndrome [M75.40] 08/05/2021 Rotator cuff syndrome [M75.100] 09/09/2021 Obesity, Class II, BMI 35-39.9 [E66.812] 09/09/2021 Subclinical hypothyroidism [E03.8] 10/16/2021 Acute pulmonary embolism without acute cor pulm*11/04/2021 Constipation due to opioid therapy [K59.03, T40*11/06/2021 High risk medications (not anticoagulants) long*12/20/2021 Cavernous malformation [Q28.3] 03/28/2022 Mild cognitive impairment with memory loss [G31*03/28/2022 Obesity, Class I, BMI 30-34.9 [E66.811] 06/30/2022 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] 01/16/2020 Diagnosed: 11/10/2022 Osteoarthritis of shoulder [M19.019] 04/15/2021 Diagnosed: 11/10/2022 COVID-19 [U07.1] 10/22/2021 Diagnosed: 11/10/2022 Dehydration [E86.0] 11/10/2022 Diagnosed: 11/10/2022 detention (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 of opiate analgesic [Z7*12/16/2016 Diagnosed: 11/10/2022 Superior glenoid labrum lesion of left shoulder*01/16/2020 Diagnosed: 11/10/2022 Tear of supraspinatus tendon [M75.100] 01/16/2020 Diagnosed: 11/10/2022 Myofascial pain syndrome [M79.18] 02/11/2023 Bipolar 2 disorder (HCC) [F31.81] 03/03/2023 Encounter Status:Closed by RADHA REN on 12/29/23 Normal [facility] CNCOon 12-23-2023 CNCO Letter Text Normal [facility] MRI LIVER WO/W IVCONon 12-17 MRI LIVER WO/W IVCON * * *Final Report* * * DATE OF EXAM: Dec 18 2023 3:48PM LDM 0727 - MRI LIVER WO/W IVCON / PROCEDURE REASON: Liver lesion * * * * Physician Interpretation * * * * MRI LIVER WO/W IVCON INDICATION: Liver lesion COMPARISON: Ultrasound of the right upper quadrant 11/30/2023 and prior TECHNIQUE: Multiplanar, multisequence MR images of the abdomen were obtained before and after the intravenous administration of gadolinium-containing contrast material, using department liver protocol. Multiphase postcontrast imaging was performed. Intravenous Contrast: 18 ml of Dotarem RESULT: Liver: There is loss of signal on out of phase images compared to in phase images, indicating hepatic steatosis. A 0.8 cm ill-defined area of fat sparing is present in the central segment 5 adjacent to the gallbladder fossa, likely corresponding to the area of decreased echogenicity on ultrasound, unchanged morphology. * Mild interval enlargement of 1.3 cm hemangioma in the segment 8, previously 0.8 cm on 2021 * Stable to minimally enlarged 0.5 cm cyst in the segment segment 4A and the inferior segment 3. * Stable 2.1 cm lobulated T2 hyperintense lesion is present in the segment 7 demonstrates peripheral nodular discontinuous enhancement representing a hemangioma, unchanged since 2013 * Enlarging 1.3 cm T2 hyperintense lesion in the segment 5, previously 0.9 cm on 2021, also with peripheral nodular discontinuous enhancement and centripetal filling, restricted delayed phases representing a hemangioma. Biliary: There is no intrahepatic biliary dilatation. The common bile duct is normal in course and caliber. No filling defects are identified within the common bile duct. Gallbladder is unremarkable. Pancreas: No pancreatic ductal dilation. Spleen: No splenomegaly. No focal splenic lesions. Adrenals: No mass. Kidneys: No significant mass. No hydronephrosis. Vasculature: - Abdominal aorta: No aneurysm. - Celiac and SMA: Patent without stenosis. - Portal venous system (SMV, splenic vein, portal vein and branches): Patent. - Hepatic veins: Patent Visualized portions of the GI tract: No dilation or wall thickening. Appendix is normal. Mesentery/ peritoneum:No mass or ascites. Lymphadenopathy: Absent. Musculoskeletal/soft tissues: No significant finding. Small hemangioma in L1. Lung bases: Unremarkable. Cardiovascular Specialist (topogram) images: No additional findings. IMPRESSION: 1. Hepatic steatosis, focal fat sparing adjacent to the gallbladder fossa. 2. Mild interval enlargement of the hepatic hemangiomas. 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[employer] Transcribe Date/Time: Dec 23 2023 8:46A Dictated by : TIAN GREGG MD This examination was interpreted and the report reviewed and electronically signed by: TIAN GREGG MD on Dec 23 2023 9:02AM EST [id number] Normal [facility] 12-10-2023 [facility] Telephone (AGGENS3) -- GERALD STALEY ([id number]) 1960 M Date Time Provider Department 12/10/23 NAHUN GUSTAFSON AGGENS3 During your visit today, we recorded the following information about you: Jackson Wagner 12/10/2023 9:37 AM Signed Surgery Checklist Type: LATERAL INTERNAL SPHINCTEROTOMY Admission Type: outpatient Anesthesia: MAC Date: 02/01/24 Arrival Time: 12:35 PM Surgery Time: 2:35 PM Location: [facility] Surgery Information given at appointment. Jackson Wagner Allergies As of Date: 12/10/2023 Noted Allergy Reaction BAKARI INHIBITORS 05/22/2016 3 - Cough DARVOCET A500 (PROPOXYPHENE N-BAKARI*04/24/2016 8 - GI Upset Date Reviewed: 12/09/2023 Reviewed by: Nahun Gustafson MD - Fully Assessed Reason for Visit: Procedure [88] Cmt: LATERAL INTERNAL SPHINCTEROTOMY Prescriptions as of 12/10/2023 - hydrocortisone (ANUSOL-HC) 2.5 % rectal cream by RECTAL route two times a day as needed. - losartan (COZAAR) 100 mg tablet Take 1 tablet by mouth once daily. - triamterene-hydroCHLOROthi azide (MAXZIDE-25MG) 37.5-25 mg per tablet Take 1 tablet by mouth once daily. - diclofenac (VOLTAREN) 1 % topical gel Apply 4 g to affected area four times daily as needed (for pain). As Directed. Problem List As Of Date 12/10/2023 Noted Resolved SPRAIN SHOULDER/ARM NOS [[id number]] 06/22/2008 09/25/2008 Rotator cuff (capsule) sprain [S43.429A] 09/25/2008 05/22/2016 Primary hypertension [I10] 05/07/2009 Hyperlipidemia [E78.5] 05/07/2009 Hypogonadism male [E29.1] 04/25/2010 05/22/2016 Other chronic pain [G89.29] 11/12/2011 Onychomycosis due to dermatophyte [B35.1] 02/08/2013 04/24/2016 Sprain of rhomboid [S23.8XXA] 06/12/2015 05/22/2016 Cervical myofascial strain [S16.1XXA] 06/12/2015 05/22/2016 Shoulder strain [S46.919A] 06/12/2015 04/17/2017 Strain of right shoulder [S46.911A] 08/10/2015 05/22/2016 Cervical strain [S16.1XXA] 08/10/2015 05/22/2016 Situational depression [F43.21] 09/17/2015 05/22/2016 Reactive depression [F32.9] 10/05/2015 04/24/2016 Chronic right-sided low back pain with right-si*10/25/2015 05/22/2016 Heel pain, bilateral [M79.671, M79.672] 10/25/2015 05/22/2016 Chronic pain [G89.29] 11/09/2015 05/22/2016 Recurrent major depression in partial remission*04/24/2016 Umbilical hernia without obstruction and withou*06/05/2016 06/11/2016 Strain of other muscles, fascia and tendons at *11/10/2016 04/17/2017 Sprain of other specified parts of right should*11/10/2016 04/17/2017 Other cervical disc degeneration, unspecified c*04/29/2017 Bursitis of both shoulders [M75.51, M75.52] 01/04/2020 Other forms of angina pectoris (HCC) [I20.89] 01/06/2020 S/P left rotator cuff repair [Z98.890] 04/16/2020 Partial nontraumatic tear of left rotator cuff *04/16/2020 Hypothyroidism, acquired [E03.9] 05/28/2021 10/16/2021 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] 06/07/2021 Osteoarthritis of both shoulders [M19.011, M19.*08/05/2021 Cervicalgia [M54.2] 08/05/2021 Rotator cuff impingement syndrome [M75.40] 08/05/2021 Rotator cuff syndrome [M75.100] 09/09/2021 Obesity, Class II, BMI 35-39.9 [E66.812] 09/09/2021 Subclinical hypothyroidism [E03.8] 10/16/2021 Acute pulmonary embolism without acute cor pulm*11/04/2021 Constipation due to opioid therapy [K59.03, T40*11/06/2021 High risk medications (not anticoagulants) long*12/20/2021 Cavernous malformation [Q28.3] 03/28/2022 Mild cognitive impairment with memory loss [G31*03/28/2022 Obesity, Class I, BMI 30-34.9 [E66.811] 06/30/2022 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] 01/16/2020 Diagnosed: 11/10/2022 Osteoarthritis of shoulder [M19.019] 04/15/2021 Diagnosed: 11/10/2022 COVID-19 [U07.1] 10/22/2021 Diagnosed: 11/10/2022 Dehydration [E86.0] 11/10/2022 Diagnosed: 11/10/2022 detention (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 of opiate analgesic [Z7*12/16/2016 Diagnosed: 11/10/2022 Superior glenoid labrum lesion of left shoulder*01/16/2020 Diagnosed: 11/10/2022 Tear of supraspinatus tendon [M75.100] 01/16/2020 Diagnosed: 11/10/2022 Myofascial pain syndrome [M79.18] 02/11/2023 Bipolar 2 disorder (HCC) [F31.81] 03/03/2023 Encounter Status:Closed by JACKSON WAGNER on 12/10/23 Normal [facility] CNOVon 12-09-2023 CNOV Office Visit (AGGENS 3) -- GERALD STALEY ([id number]) 1960 M Date Time Provider Department 12/09/23 1:30 PM NAHUN GUSTAFSON3 During your visit today, we recorded the following information about you: Pulse Blood pressure Weight Height 65/minute 138/89 88 kg 1.645 m Nahun Gustafson MD 12/09/2023 2:31 PM Signed Nahun Gustafson M.D. Colon AND Rectal Surgery [address] [facility], [address] [place] [address] SUBJECTIVE Gerald Staley is a 63 year old White male with anal pain and bleeding, abdominal pain HPI The patient was referred by Dr. Yakov Etienne for my consultation regarding anal pain and bleeding. My final recommendations will be communicated back to the requesting physician by way of shared Medical record or letter to requesting physician via electronic or [place] mail. The patient is a pleasant 63-year-old male who has had several years of intermittent symptoms including a blood per rectum and anal discomfort. He also notes for the last couple of months some epigastric discomfort. When he has a bowel movement, he will usually leave after this and typically has pain during the bowel movement which is fairly sharp/uncomfortable sensation. He has never had any hemorrhoid surgeries before and had a colonoscopy in 2022 which did demonstrate enlarged internal hemorrhoids. He denies constipation but does have slightly looser stools. He also denies diarrhea or incontinence. Review of Systems Constitutional: Negative for chills, fever and weight loss. HENT: Negative for congestion, ear pain, hearing loss, sinus pain and sore throat. Eyes: Negative for blurred vision, double vision and pain. Respiratory: Negative for cough, shortness of breath and wheezing. Cardiovascular: Negative for chest pain, palpitations and leg swelling. Gastrointestinal: Positive for blood in stool. Negative for abdominal pain, constipation, diarrhea, heartburn, nausea and vomiting. Genitourinary: Positive for frequency and urgency. Negative for dysuria. Musculoskeletal: Positive for back pain and neck pain. Negative for joint pain. Skin: Negative for itching and rash. Neurological: Negative for dizziness, weakness and headaches. Endo/Heme/Allergies: Negative for environmental allergies. Does not bruise/bleed easily. Psychiatric/Behavioral: Negative for depression and memory loss. The patient is not nervous/anxious and does not have insomnia. PAST MEDICAL HISTORY Diagnosis Date Abnormal EKG 04/23/2017 inf [place] age undetermined Acute pulmonary embolism without acute cor pulmonale (HCC) Adenomatous colon polyp Anxiety Aorta disorder (HCC) Bipolar 2 disorder (HCC) Chicken pox Colon polyps Depression ED (erectile dysfunction) Headache HTN (hypertension) Hypogonadism male 04/25/2010 Hypothyroidism Myofascial pain dysfunction syndrome Obesity Osteoarthritis of multiple joints Pulmonary embolism (HCC) Rectal bleed Shingles Shoulder [...] HX Right 1986 eyelid TONSILLECTOMY HX Childhood Social History Tobacco Use Smoking status: Never Smokeless tobacco: Never Vaping Use Vaping status: Never Used Substance Use Topics Alcohol use: Yes Alcohol/week: 6.0 standard drinks of alcohol Types: 6 Cans of Beer (12oz) per week Comment: 12 pack a week Drug use: Not Currently Comment: no longer using. FAMILY HISTORY Problem Relation Age of Onset Diabetes Mother Hypertension Mother Arthritis Mother Breast Cancer Mother Dementia Mother Cancer Father throat Asthma No Family History Colon Cancer No Family History The ROS, medical, surgical, family, and social history were reviewed by Nahun Gustafson MD ALLERGIES Allergen Reactions Bakari Inhibitors Cough Darvocet A500 [Prop* GI Upset Current Outpatient Medications Medication Sig losartan (COZAAR) 100 mg tablet Take 1 tablet by mouth once daily. triamterene-hydroCHLOROthi azide (MAXZID (more content not included)... Normal [facility] C diff Tox gens Stl Ql LINDA+p robeon 12-02-2023 C. difficile toxin genes LINDA+probe Ql (Stl) Negative Normal Negative for C. difficile toxin by PCR [facility] Comment on above: Order Comment: Speci men Type: STOOL SPECIMEN Ordering Facility: [facility] Address: [address] [place] [address] Performed By: #### 5 4067-4 #### [facility] CLIA [id number] [address] [place] [address] [place] Calprotectin (Stl) [Mass/Mas s]on 12-02-2023 CALPROTECTIN, FECAL INTERP Normal Normal Normal [facility] Comment on above: Order Comment: Speci men Type: STOOL SPECIMENOrdering Facility: [facility] Address: [address] [place] [address] Result Comment: Inte rpretation: <50.0 ug/g: Normal 50.0 ug/g - 120.0 ug/g: Borderline elevated. Re-evaluation in 4-6 weeks is recommended if clinically indicated. >120.0 ug/g: Elevated Performed By: #### 3 8445-3, PANCEF ####[facility] LABCL[facility] [id number] [place] [address] [place] CALPROTECTIN, FECAL QUANTITATIVE 6.06 ug/g Normal <50 [facility] Comment on above: Order Comment: Speci men Type: STOOL SPECIMENOrdering Facility: [facility] Address: [address] [place] [address] Performed By: #### 3 8445-3, PANCEF ####[facility] LABCLIA [id number] [place] [address] [place] Gastrointestinal pathogens p marcus LINDA+probe (Stl)on 12-02-2023 ADENOVIRUS F 40/41 DNA Not detected Normal Not Detected [facility] Comment on above: Order Comment: Speci men Type: STOOL SPECIMENOrdering Facility: [facility] Address: [address] [place] [address] Performed By: #### 7 9381-0 ####[facility]ORATORYCLIA [id number] [place] [address] [place] ASTROVIRUS RNA Not detected Normal Not Detected [facility] Comment on above: Order Comment: Speci men Type: STOOL SPECIMENOrdering Facility: [facility] Address: [address] [place] [address] Performed By: #### 7 9381-0 ####[facility] LABORATORYCLIA [id number] [place] [address] [place] C. cayetanensis DNA LINDA+probe Ql (Unsp spec) Not detected Normal Not Detected [facility] Comment on above: Order Comment: Speci men Type: STOOL SPECIMENOrdering Facility: [facility] Address: [address] [place] [address] Performed By: #### 7 9381-0 ####[facility]ORATORYCLIA [id number] [place] [address] [place] Campylobacter sp DNA.diarrheagenic LINDA+probe Ql (Stl) Not detected Normal Not Detected [facility] Comment on above: Order Comment: Speci men Type: STOOL SPECIMENOrdering Facility: [facility] Address: [address] [place] [address] Performed By: #### 7 9381-0 ####[facility]ORATORYCLIA [id number] [place] [address] [place] Cryptosporidium sp DNA LINDA+probe Ql (Unsp spec) Not detected Normal Not Detected [facility] Comment on above: Order Comment: Speci men Type: STOOL SPECIMENOrdering Facility: [facility] Address: [address] [place] [address] Performed By: #### 7 9381-0 ####[facility] LABORATORYCLIA [id number] [address] [place] E. coli O157:H7 DNA LINDA+probe Ql (Unsp spec) Not applicable Normal Not detected [facility] Comment on above: Order Comment: Speci men Type: STOOL SPECIMENOrdering Facility: [facility] Address: [address] [place] [address] Performed By: #### 7 9381-0 ####[facility] LABORATORYCLIA [id number] [place] [address] [facility] [place] E. coli stx1+stx2 genes LINDA+probe Ql (Stl) Not detected Normal Not Detected [facility] Comment on above: Order Comment: Speci men Type: STOOL SPECIMENOrdering Facility: [facility] Address: [address] [place] [address] Performed By: #### 7 9381-0 ####[facility]ORATORYCLIA [id number] [place] [address] [place] E. histolytica DNA LINDA+probe Ql (Unsp spec) Not detected Normal Not Detected [facility] Comment on above: Order Comment: Speci men Type: STOOL SPECIMENOrdering Facility: [facility] Address: [address] [place] [address] Performed By: #### 7 9381-0 ####[facility]ORATORYCLIA [id number] [place] [address] [place] ENTEROAGGREGATIVE E. COLI (EAEC) DNA Not detected Normal Not Detected [facility] Comment on above: Order Comment: Speci men Type: STOOL SPECIMENOrdering Facility: [facility] Address: [address] [place] [address] Performed By: #### 7 9381-0 ####[facility] LABORATORYCLIA [id number] [place] [address] [place] ENTEROPATHOGENIC E. COLI (EPEC) DNA Not detected Normal Not detected [facility] Comment on above: Order Comment: Speci men Type: STOOL SPECIMENOrdering Facility: [facility] Address: [address] [place] [address] Performed By: #### 7 9381-0 ####[facility] LABORATORYCLIA [id number] [place] [address] [place] ENTEROTOXIGENIC E. COLI (ETEC) DNA Not detected Normal Not Detected [facility] Comment on above: Order Comment: Speci men Type: STOOL SPECIMENOrdering Facility: [facility] Address: [address] [place] [address] Performed By: #### 7 9381-0 ####[facility]ORATORYCLIA [id number] [place] [address] [place] G. lamblia DNA LINDA+probe Ql (Unsp spec) Not detected Normal Not Detected [facility] Comment on above: Order Comment: Speci men Type: STOOL SPECIMENOrdering Facility: [facility] Address: [address] [place] [address] Performed By: #### 7 9381-0 ####[facility] LABORATORYCLIA [id number] [place] [address] [place] NOROVIRUS GI/GII RNA Not detected Normal Not Detected [facility] Comment on above: Order Comment: Speci men Type: STOOL SPECIMENOrdering Facility: [facility] Address: [address] [place] [address] Performed By: #### 7 9381-0 ####[facility]CL[facility] [id number] [address] [place] PLESIOMONAS SHIGELLOIDES DNA Not detected Normal Not Detected [facility] Comment on above: Order Comment: Speci men Type: STOOL SPECIMENOrdering Facility: [facility] Address: [address] [place] [address] Performed By: #### 7 9381-0 ####[facility] LABORATORYCLIA [id number] [place] [address] [place] ROTAVIRUS A RNA Not detected Normal Not Detected [facility] Comment on above: Order Comment: Speci men Type: STOOL SPECIMENOrdering Facility: [facility] Address: [address] [place] [address] Performed By: #### 7 9381-0 ####[facility]CLIA [id number] [place] [address] [place] Salmonella sp DNA LINDA+probe Ql (Unsp spec) Not detected Normal Not Detected [facility] Comment on above: Order Comment: Speci men Type: STOOL SPECIMENOrdering Facility: [facility] Address: [address] [place] [address] Performed By: #### 7 9381-0 ####[facility] LABORATORYCLIA [id number] [address] [place] SAPOVIRUS (GENOGROUPS I, II, IV, V) RNA Not detected Normal Not Detected [facility] Comment on above: Order Comment: Speci men Type: STOOL SPECIMENOrdering Facility: [facility] Address: [address] [place] [address] Performed By: #### 7 9381-0 ####[facility] LABORATORYCLIA [id number] [place] [address] [place] Shigella species+EIEC invasion plasmid antigen H ipaH gene LINDA+probe Ql (Stl) Not detected Normal Not Detected [facility] Comment on above: Order Comment: Speci men Type: STOOL SPECIMENOrdering Facility: [facility] Address: [address] [place] [address] Performed By: #### 7 9381-0 ####[facility] LABORATORYCLIA [id number] [place] [address] [place] V. cholerae DNA LINDA+probe Ql (Unsp spec) Not detected Normal Not Detected [facility] Comment on above: Order Comment: Speci men Type: STOOL SPECIMENOrdering Facility: [facility] Address: [address] [place] [address] Performed By: #### 7 9381-0 ####[facility] LABORATORYCLIA [id number] [place] [address] [place] Vibrio sp DNA LINDA+probe Nom (Unsp spec) Not detected Normal Not Detected [facility] Comment on above: Order Comment: Speci men Type: STOOL SPECIMENOrdering Facility: [facility] Address: [address] [place] [address] Performed By: #### 7 9381-0 ####[facility] LABORATORYCLIA [id number] [place] [address] [place] Yersinia sp DNA LINDA+probe Nom (Unsp spec) Not detected Normal Not Detected [facility] Comment on above: Order Comment: Speci men Type: STOOL SPECIMENOrdering Facility: [facility] Address: [address] [place] [address] Performed By: #### 7 9381-0 ####[facility] LABORATORYCLIA [id number] [place] [address] [place] PANC ELASTASE, FECALon 12-01 ELASTASE INTERPRETATION Normal Normal Normal [facility] Comment on above: Order Comment: Speci men Type: STOOL SPECIMENOrdering Facility: [facility] Address: [address] [place] [address] Performed By: #### 3 8445-3, PANCEF ####[facility] LABCLIA [id number] [place] [address] [place] ELASTASE-1 CONCENTRATION 613 ug/g Normal >=200 [facility] Comment on above: Order Comment: Speci men Type: STOOL SPECIMENOrdering Facility: [facility] Address: [address] [place] [address] Result Comment: Inte rpretation: <100 ug/g: Severe Exocrine Pancreatic Insufficiency 100-199 ug/g: Mild to Moderate Exocrine Pancreatic Insufficiency >=200 ug/g: Normal Performed By: #### 3 8445-3, PANCEF ####[facility] LABCLIA [id number] [facility]CONOMOWOCDES[facility] [id number] [id number] [place] CBC W Auto Differential pane l (Bld)on 11-30-2023 Basophils (Bld) [#/Vol] 0.04 10*3/uL Normal <0.11 [facility] Comment on above: Order Comment: Speci men Type: BLOOD SPECIMEN [facility] Address: [address] [place] [address] Performed By: #### 5 7021-8 #### [facility] CLIA [id number] [address] [place] [address] [place] Basophils/100 WBC (Bld) 0.5 % Normal [facility] Comment on above: Order Comment: Speci men Type: BLOOD SPECIMEN [facility] Address: [address] [place] [address] Performed By: #### 5 7021-8 #### [facility] CLIA [id number] [address] [place] [address] [place] Differential cell count method Nom (Bld) Auto Normal [facility] Comment on above: Order Comment: Speci men Type: BLOOD SPECIMEN [facility] Address: [address] [place] [address] Performed By: #### 5 7021-8 #### [facility] CLIA [id number] [address] [place] [address] [place] Eosinophils (Bld) [#/Vol] 0.08 10*3/uL Normal <0.46 [facility] Comment on above: Order Comment: Speci men Type: BLOOD SPECIMEN [facility] Address: [address] [place] [address] Performed By: #### 5 7021-8 #### [facility] CLIA [id number] [address] [place] [address] [place] Eosinophils/100 WBC (Bld) 1.1 % Normal [facility] Comment on above: Order Comment: Speci men Type: BLOOD SPECIMEN [facility] Address: [address] [place] [address] Performed By: #### 5 7021-8 #### [facility] CLIA [id number] [address] [place] [address] [place] Erythrocyte distribution width (RBC) [Ratio] 12.8 % Normal 11.5-15.0 [facility] Comment on above: Order Comment: Speci men Type: BLOOD SPECIMEN [facility] Address: [address] [place] [address] Performed By: #### 5 7021-8 #### [facility] CLIA [id number] [address] [place] [address] [place] Hematocrit (Bld) [Volume fraction] 51.3 % High 39.0-51.0 [facility] Comment on above: Order Comment: Speci men Type: BLOOD SPECIMEN [facility] Address: [address] [place] [address] Performed By: #### 5 7021-8 #### [facility] CLIA [id number] [address] [place] [address] [place] Hemoglobin (Bld) [Mass/Vol] 17.1 g/dL High 13.0-17.0 [facility] Comment on above: Order Comment: Speci men Type: BLOOD SPECIMEN [facility] Address: [address] [place] [address] Performed By: #### 5 7021-8 #### [facility] CLIA [id number] [address] [place] [address] [place] Immature granulocytes (Bld) [#/Vol] 0.03 10*3/uL Normal <0.10 [facility] Comment on above: Order Comment: Speci men Type: BLOOD SPECIMEN [facility] Address: [address] [place] [address] Performed By: #### 5 7021-8 #### [facility] CLIA [id number] [address] [place] [address] [facility] Immature granulocytes/100 WBC (Bld) 0.4 % Normal [facility] Comment on above: Order Comment: Speci men Type: BLOOD SPECIMEN [facility] Address: [address] [place] [address] Performed By: #### 5 7021-8 #### [facility] CLIA [id number] [address] [place] [address] [place] Lymphocytes (Bld) [#/Vol] 2.67 10*3/uL Normal 1.00-4.00 [facility] Comment on above: Order Comment: Speci men Type: BLOOD SPECIMEN [facility] Address: [address] [place] [address] Performed By: #### 5 7021-8 #### [facility] CLIA [id number] [address] [place] [id number] [facility] Lymphocytes/100 WBC (Bld) 36.3 % Normal [facility] Comment on above: Order Comment: Speci men Type: BLOOD SPECIMEN [facility] Address: [address] [place] [address] Performed By: #### 5 7021-8 #### [facility] CLIA [id number] [address] [place] [address] [place] MCH (RBC) [Entitic mass] 29.8 pg Normal 26.0-34.0 [facility] Comment on above: Order Comment: Speci men Type: BLOOD SPECIMEN [facility] Address: [address] [place] [address] Performed By: #### 5 7021-8 #### [facility] CLIA [id number] [address] [place] [address] [place] MCHC (RBC) [Mass/Vol] 33.3 g/dL Normal 30.5-36.0 [facility] Comment on above: Order Comment: Speci men Type: BLOOD SPECIMEN [facility] Address: [address] [place] [address] Performed By: #### 5 7021-8 #### [facility] CLIA [id number] [address] [place] [address] [place] MCV (RBC) [Entitic vol] 89.5 fL Normal 80.0-100.0 [facility] Comment on above: Order Comment: Speci men Type: BLOOD SPECIMEN [facility] Address: [address] [place] [address] Performed By: #### 5 7021-8 #### [facility] CLIA [id number] [address] [place] [address] [place] Monocytes (Bld) [#/Vol] 0.93 10*3/uL High <0.87 [facility] Comment on above: Order Comment: Speci men Type: BLOOD SPECIMEN [facility] Address: [address] [place] [address] Performed By: #### 5 7021-8 #### [facility] CLIA [id number] [address] [place] [address] [place] Monocytes/100 WBC (Bld) 12.7 % Normal [facility] Comment on above: Order Comment: Speci men Type: BLOOD SPECIMEN [facility] Address: [address] [place] [address] Performed By: #### 5 7021-8 #### [facility] CLIA [id number] [address] [place] [address] [place] Neutrophils (Bld) [#/Vol] 3.60 10*3/uL Normal 1.45-7.50 [facility] Comment on above: Order Comment: Speci men Type: BLOOD SPECIMEN [facility] Address: [address] [place] [address] Performed By: #### 5 7021-8 #### [facility] CLIA [id number] [address] [place] [address] [place] Neutrophils/100 WBC (Bld) 49.0 % Normal [facility] Comment on above: Order Comment: Speci men Type: BLOOD SPECIMEN [facility] Address: [address] [place] [address] Performed By: #### 5 7021-8 #### [facility] CLIA [id number] [address] [place] [address] [place] Nucleated RBC (Bld) [#/Vol] Normal [facility] Comment on above: Order Comment: Speci men Type: BLOOD SPECIMEN [facility] Address: [address] [place] [address] Performed By: #### 5 7021-8 #### [facility] CLIA [id number] [address] [place] [address] [place] Nucleated RBC/100 WBC (Bld) [Ratio] Normal [facility] Comment on above: Order Comment: Speci men Type: BLOOD SPECIMEN [facility] Address: [address] [place] [address] Performed By: #### 5 7021-8 #### [facility] CLIA [id number] [address] [place] [address] [place] Platelet mean volume (Bld) [Entitic vol] 9.1 fL Normal 9.0-12.7 [facility] Comment on above: Order Comment: Speci men Type: BLOOD SPECIMEN [facility] Address: [address] [place] [address] Performed By: #### 5 7021-8 #### [facility] CLIA [id number] [address] [place] [address] [place] Platelets (Bld) [#/Vol] 221 10*3/uL Normal 150-400 [facility] Comment on above: Order Comment: Speci men Type: BLOOD SPECIMEN [facility] Address: [address] [place] [address] Performed By: #### 5 7021-8 #### [facility] CLIA [id number] [address] [place] [address] [facility] RBC (Bld) [#/Vol] 5.73 10*6/uL Normal 4.20-6.00 [facility] Comment on above: Order Comment: Speci men Type: BLOOD SPECIMEN [facility] Address: [address] [place] [address] Performed By: #### 5 7021-8 #### [facility] CLIA [id number] [address] [place] [address] [facility] WBC (Bld) [#/Vol] 7.35 10*3/uL Normal 3.70-11.00 [facility] Comment on above: Order Comment: Speci men Type: BLOOD SPECIMEN Ordering Facility: [facility] Address: [address] [place] [address] Performed By: #### 5 7021-8 #### [facility] CLIA [id number] [address] [place] [address] [facility] Comprehensive metabolic 2000 panelon 11-30-2023 Albumin [Mass/Vol] 4.2 g/dL Normal 3.9-4.9 [facility] Comment on above: Order Comment: Speci men Type: BLOOD SPECIMEN Ordering Facility: [facility] Address: [address] [place] [address] Performed By: #### 2 4323-8, 3040-3 #### [facility] CLIA [id number] [address] [place] [address] [facility] ALP [Catalytic activity/Vol] 81 U/L Normal 38-113 [facility] Comment on above: Order Comment: Speci men Type: BLOOD SPECIMEN Ordering Facility: [facility] Address: [address] [place] [address] Performed By: #### 2 4323-8, 3040-3 #### [facility] CLIA [id number] [address] [place] [address] [place] ALT With P-5'-P [Catalytic activity/Vol] 25 U/L Normal 10-54 [facility] Comment on above: Order Comment: Speci men Type: BLOOD SPECIMEN Ordering Facility: [facility] Address: [address] [place] [address] Performed By: #### 2 4323-8, 3040-3 #### [facility] CLIA [id number] [address] [place] [address] [place] Anion gap [Moles/Vol] 9 mmol/L Normal 8-15 [facility] Comment on above: Order Comment: Speci men Type: BLOOD SPECIMEN Ordering Facility: [facility] Address: [address] [place] [address] Performed By: #### 2 4323-8, 3040-3 #### [facility] CLIA [id number] [address] [place] [address] [place] AST With P-5'-P [Catalytic activity/Vol] 17 U/L Normal 14-40 [facility] Comment on above: Order Comment: Speci men Type: BLOOD SPECIMEN Ordering Facility: [facility] Address: [address] [place] [address] Performed By: #### 2 4323-8, 3040-3 #### [facility] CLIA [id number] [address] [place] [address] [place] Bilirubin [Mass/Vol] 0.8 mg/dL Normal 0.2-1.3 [facility] Comment on above: Order Comment: Speci men Type: BLOOD SPECIMEN Ordering Facility: [facility] Address: [address] [place] [address] Performed By: #### 2 4323-8, 3040-3 #### [facility] CLIA [id number] [address] [place] [address] [place] Calcium [Mass/Vol] 9.7 mg/dL Normal 8.5-10.2 [facility] Comment on above: Order Comment: Speci men Type: BLOOD SPECIMEN Ordering Facility: [facility] Address: [address] [place] [address] Performed By: #### 2 4323-8, 3040-3 #### [facility] CLIA [id number] [address] [place] [address] [place] Chloride [Moles/Vol] 103 mmol/L Normal 98-107 [facility] Comment on above: Order Comment: Speci men Type: BLOOD SPECIMEN Ordering Facility: [facility] Address: [address] [place] [address] Performed By: #### 2 4323-8, 3040-3 #### [facility] CLIA [id number] [address] [place] [address] [place] CO2 [Moles/Vol] 27 mmol/L Normal 22-30 [facility] Comment on above: Order Comment: Speci men Type: BLOOD SPECIMEN Ordering Facility: [facility] Address: [address] [place] [address] Performed By: #### 2 4323-8, 3040-3 #### [facility] CLIA [id number] [address] [place] [address] [place] Creatinine [Mass/Vol] 1.17 mg/dL Normal 0.73-1.22 [facility] Comment on above: Order Comment: Speci men Type: BLOOD SPECIMEN Ordering Facility: [facility] Address: [address] [place] [address] Performed By: #### 2 4323-8, 3040-3 #### [facility] CLIA [id number] [address] [place] [address] [facility] Creatinine and Glomerular filtration rate.predicted panel (S/P/Bld) 70 mL/min/1.73m??? Normal >=60 [facility] Comment on above: Order Comment: Speci men Type: BLOOD SPECIMEN Ordering Facility: [facility] Address: [address] [place] [address] Result Comment: Agata mated Glomerular Filtration Rate (eGFR) is calculated using the 2020 CKD-EPI creatinine equation. This equation utilizes serum creatinine, sex, and age as parameters. The creatinine assay has traceable calibration to isotope dilution-mass spectrometry. Refer to KDIGO guidelines for clinical interpretation. In patients with unstable renal function, e.g. those with acute kidney injury, the eGFR may not accurately reflect actual GFR. Performed By: #### 2 4323-8, 3039-3 #### [facility] CLIA [id number] [address] [place] [address] [place] Glucose [Mass/Vol] 78 mg/dL Normal 74-99 [facility] Comment on above: Order Comment: Mariely waite Type: BLOOD SPECIMEN Ordering Facility: [facility] Address: [address] [place] [address] Result Comment: The [place] Diabetes Association (ADA) provides guidance for cutoff values for fasting glucose and random glucose. The ADA defines fasting as no caloric intake for at least 8 hours. Fasting plasma glucose results between 100 to 125 mg/dL indicate increased risk for diabetes (prediabetes). Fasting plasma glucose results greater than or equal to 126 mg/dL meet the criteria for diagnosis of diabetes. In the absence of unequivocal hyperglycemia, results should be confirmed by repeat testing. In a patient with classic symptoms of hyperglycemia or hyperglycemic crisis, random plasma glucose results greater than or equal to 200 mg/dL meet the criteria for diagnosis of diabetes. Reference: Standards of Medical Care in Diabetes 2016, [place] [employer] Association. Diabetes Care. 2016.39(Suppl 1). Performed By: #### 2 4323-8, 3039-3 #### [facility] CLIA [id number] [address] [place] [address] [place] Potassium [Moles/Vol] 4.0 mmol/L Normal 3.7-5.1 [facility] Comment on above: Order Comment: Mariely waite Type: BLOOD SPECIMEN Ordering Facility: [facility] Address: [address] [place] [address] Performed By: #### 2 4323-8, 3039-3 #### [facility] CLIA [id number] [address] [place] [address] [place] Protein [Mass/Vol] 6.5 g/dL Normal 6.3-8.0 [facility] Comment on above: Order Comment: Speci men Type: BLOOD SPECIMEN Ordering Facility: [facility] Address: [address] [place] [address] Performed By: #### 2 4323-8, 3040-3 #### [facility] CLIA [id number] [address] [place] [address] [place] Sodium [Moles/Vol] 139 mmol/L Normal 136-144 [facility] Comment on above: Order Comment: Speci men Type: BLOOD SPECIMEN Ordering Facility: [facility] Address: [address] [place] [address] Performed By: #### 2 4323-8, 3040-3 #### [facility] CLIA [id number] [address] [place] [address] [place] Urea nitrogen [Mass/Vol] 19 mg/dL Normal 9-24 [facility] Comment on above: Order Comment: Speci men Type: BLOOD SPECIMEN Ordering Facility: [facility] Address: [address] [place] [address] Performed By: #### 2 4323-8, 3040-3 #### [facility] CLIA [id number] [address] [place] [address] [place] Lipase SerPl-cCncon 11-30-19 24 Lipase [Catalytic activity/Vol] 47 U/L Normal 16-61 [facility] Comment on above: Order Comment: Speci men Type: BLOOD SPECIMEN Ordering Facility: [facility] Address: [address] [place] [address] Performed By: #### 2 4323-8, 3040-3 #### [facility] CLIA [id number] [address] [place] [address] [place] US ABD RIGHT UPPER QUADRANTo n 11-30-2023 US ABD RIGHT UPPER QUADRANT * * *Final Report* * * DATE OF EXAM: Nov 30 2023 9:42AM LDU 1032 - US ABD RIGHT UPPER QUADRANT / PROCEDURE REASON: multiple diagnoses * * * * Physician Interpretation * * * * EXAMINATION: RIGHT UPPER QUADRANT ULTRASOUND CLINICAL HISTORY: Bilateral upper abdominal pain TECHNIQUE: Sonography of the right upper quadrant was performed. Images were obtained and stored in a permanent archive. MQ: URUQ_2 COMPARISON: MRI liver January 2022 and ultrasound right upper quadrant January 2022 RESULT: Pancreas: Normal sonographic appearance. Portions obscured: This Liver: Echotexture: Normal, homogeneous. Echogenicity: Normal Surface contour: Smooth Lesions: There is a 1 x 0.9 x 0.9 cm hypoechoic lesion near the hepatic dome. This likely corresponds to prior MRI without significant change. There is also a 1.2 x 1.2 x 1.2 cm hypoechoic lesion adjacent to the gallbladder fossa. This was not clearly visualized on prior ultrasound or MRI and is nonspecific. There is at least one hepatic lesion visualized on ultrasound from January 2022 which is not able to be reproduced on this study. Biliary: No intrahepatic biliary duct dilation. CBD: 0.4 cm at the hilum. Gallbladder: Normal in appearance Right and left Kidney: No hydronephrosis. Ascites: None. Spleen: The craniocaudal length of the spleen is 10.6 cm, normal. There are no splenic lesions. IMPRESSION: 1. There are 2 hepatic lesions as detailed above. One of these is stable compared to the prior. The stability of the other is somewhat uncertain. MRI may offer a better characterization of these lesions and a better comparison to the prior study. These lesions are not clearly benign cysts or hemangiomas. ACTIONABLE RESULT: FOLLOW-UP Acuity: Actionable Findings: Liver Routing Code: LV_1 Recommendation: MRI LIVER WO/W IVCON (add Dotarem in comments) Time Frame: At the discretion of the clinical team. COMMUNICATION: Results will be communicated with the ordering provider via [employer] staff message or phone message by [employer] within 2 business days of report finalization. --END OF FINDING-- 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B Transcribe Date/Time: Dec 02 2023 8:41A Dictated by : CHITRA SALAS MD This examination was interpreted and the report reviewed and electronically signed by: CHITRA SALAS MD on Dec 02 2023 8:49AM EST [id number] ACTIONABLE Invalid Interpretation Code [facility] US ABD SPLEEN -NBon 11-30-19 24 US ABD SPLEEN -NB * * *Final Report* * * DATE OF EXAM: Nov 30 2023 9:42AM LDU 1232 - US ABD SPLEEN -NB / PROCEDURE REASON: multiple diagnoses * * * * Physician Interpretation * * * * EXAMINATION: RIGHT UPPER QUADRANT ULTRASOUND CLINICAL HISTORY: Bilateral upper abdominal pain TECHNIQUE: Sonography of the right upper quadrant was performed. Images were obtained and stored in a permanent archive. MQ: URUQ_2 COMPARISON: MRI liver January 2022 and ultrasound right upper quadrant January 2022 RESULT: Pancreas: Normal sonographic appearance. Portions obscured: This Liver: Echotexture: Normal, homogeneous. Echogenicity: Normal Surface contour: Smooth Lesions: There is a 1 x 0.9 x 0.9 cm hypoechoic lesion near the hepatic dome. This likely corresponds to prior MRI without significant change. There is also a 1.2 x 1.2 x 1.2 cm hypoechoic lesion adjacent to the gallbladder fossa. This was not clearly visualized on prior ultrasound or MRI and is nonspecific. There is at least one hepatic lesion visualized on ultrasound from January 2022 which is not able to be reproduced on this study. Biliary: No intrahepatic biliary duct dilation. CBD: 0.4 cm at the hilum. Gallbladder: Normal in appearance Right and left Kidney: No hydronephrosis. Ascites: None. Spleen: The craniocaudal length of the spleen is 10.6 cm, normal. There are no splenic lesions. IMPRESSION: 1. There are 2 hepatic lesions as detailed above. One of these is stable compared to the prior. The stability of the other is somewhat uncertain. MRI may offer a better characterization of these lesions and a better comparison to the prior study. These lesions are not clearly benign cysts or hemangiomas. ACTIONABLE RESULT: FOLLOW-UP Acuity: Actionable Findings: Liver Routing Code: LV_1 Recommendation: MRI LIVER WO/W IVCON (add Dotarem in comments) Time Frame: At the discretion of the clinical team. COMMUNICATION: Results will be communicated with the ordering provider via [employer] staff message or phone message by [facility] within 2 business days of report finalization. --END OF FINDING-- Retail Greeter: HANNAH Transcribe Date/Time: Dec 02 2023 8:41A Dictated by : CHITRA SALAS MD This examination was interpreted and the report reviewed and electronically signed by: CHITRA SALAS MD on Oct 16 2024 8:49AM EST [id number] ACTIONABLE Invalid Interpretation Code [facility] CNCOon 11-26-2023 CNCO Letter Text Normal [facility] CNOVon 11-25-2023 CNOV Office Visit ([facility] ) -- GERALD STALEY ([id number]) 1960 M Date Time Provider Department 11/25/23 10:30 AM GIA VENTURA [facility] During your visit today, we recorded the following information about you: Pulse Blood pressure Weight Height 54/minute 116/84 86.6 kg 1.676 m Gia Ventura PA-C 11/25/2023 10:48 AM Signed CHIEF COMPLAINT: Patient presents with: Rectal Bleeding: Rectal bleeding on and off since he had his first colonoscopy. Sometimes bleeding last for days other times for weeks. HPI Gerald Staley is a 63 year old male here today for Rectal Bleeding (Rectal bleeding on and off since he had his first colonoscopy. Sometimes bleeding last for days other times for weeks.). Seen last for h/o anal bleeding. Seen by Dr. Etienne with recs to see [facility] for potential hemorrhoidal banding. Has f/u with [facility] this month to discuss management options for hemorrhoids. Referred back to GI to discuss potential EGD. Pt admits to progressive issues with epigastric pain. H/O relief with course of Prilosec. Bms are daily, loose to watery, increased urgency, intermittent anal bleeding/tenesmus/strainin g with BMs. Includes diarrhea has been very progressive over the past few mos. Denies N/V, weight loss, NSAID usage. Colon 2022 Impression: - One 10 mm polyp in the distal ascending colon, removed with a hot snare. Resected and retrieved. - Diverticulosis in the sigmoid colon and in the descending colon. - External hemorrhoids. Component FINAL DIAGNOSIS A. Colon, ascending, polyp, biopsy: - Tubular adenoma. Current Outpatient Medications Medication Sig lamoTRIgine (LAMICTAL) 150 mg tablet Take by mouth. losartan (COZAAR) 100 mg tablet Take 1 tablet by mouth once daily. triamterene-hydroCHLOROthi azide (MAXZIDE-25MG) 37.5-25 mg per tablet Take 1 tablet by mouth once daily. methocarbamol (ROBAXIN-750) 750 mg tablet Take 1 tablet by mouth three times a day as needed. QUEtiapine XR (SEROQUEL XR) 150 mg Tb24 Take by mouth. (Patient not taking: Reported on 10/05/2023) gabapentin (NEURONTIN) 300 mg capsule Take by mouth. apixaban (ELIQUIS) 5 mg tab(s) Take by mouth. (Patient not taking: Reported on 10/05/2023) diclofenac (VOLTAREN) 1 % topical gel Apply 4 g to affected area four times daily as needed (for pain). As Directed. naloxone 4 mg/actuation nasal spray (NARCAN) No current facility-administered medications for this visit. ALLERGIES Allergen Reactions Bakari Inhibitors Cough Darvocet A500 [Prop* GI Upset Social History Tobacco Use Smoking status: Never Smokeless tobacco: Never Vaping Use Vaping status: Never Used Substance Use Topics Alcohol use: Yes Alcohol/week: 6.0 standard drinks of alcohol Types: 6 Cans of Beer (12oz) per week Comment: 12 pack a week Drug use: Not Currently Comment: no longer using. PAST MEDICAL HISTORY Diagnosis Date Abnormal EKG 04/23/2017 inf [place] age undetermined Acute pulmonary embolism without acute cor pulmonale (HCC) Adenomatous colon polyp Anxiety Aorta disorder (HCC) Bipolar 2 disorder (HCC) Chicken pox Colon polyps Depression ED (erectile dysfunction) Headache HTN (hypertension) Hypogonadism male 04/25/2010 Hypothyroidism Myofascial pain dysfunction syndrome Obesity Osteoarthritis of multiple joints Pulmonary embolism (HCC) Rectal bleed Shingles Shoulder [...] Colon Cancer No Family History REVIEW OF SYSTEMS Review of Systems Gastrointestinal: Positive for rectal pain. All other systems reviewed and are negative. PHYSICAL EXAM BP 116/84 Pulse (!) 54 Ht 167.6 cm (5' 6") Wt 86.6 kg (191 lb) BMI 30.83 kg/m? Physical Exam Constitutional: General: He is not in acute distres (more content not included)... Normal [facility] CNPNon 10-08-2023 [facility] Telephone ([facility]) -- GERALD STALEY ([id number]) 1960 M Date Time Provider Department 10/08/23 NAHUN GUSTAFSON3 During your visit today, we recorded the following information about you: Jackson Wagner 10/08/2023 1:31 PM Signed Called the patient and left a voice message asking the patient to call the office back to schedule for the next available appointment. The patient is being referred for Rectal bleeding [K62.5] Internal hemorrhoids [K64.8] Jackson Wagner Allergies As of Date: 10/08/2023 Noted Allergy Reaction BAKARI INHIBITORS 05/22/2016 3 - Cough DARVOCET A500 (PROPOXYPHENE N-BAKARI*04/24/2016 8 - GI Upset Date Reviewed: 10/05/2023 Reviewed by: Ashley Coleman RN - Fully Assessed Reason for Visit: Appointment [186] Prescriptions as of 10/12/2023 - methocarbamol (ROBAXIN-750) 750 mg tablet Take 1 tablet by mouth three times a day as needed. - QUEtiapine XR (SEROQUEL XR) 150 mg Tb24 Take by mouth. - lamoTRIgine (LAMICTAL) 150 mg tablet Take by mouth. - gabapentin (NEURONTIN) 300 mg capsule Take by mouth. - apixaban (ELIQUIS) 5 mg tab(s) Take by mouth. - losartan (COZAAR) 100 mg tablet Take 1 tablet by mouth once daily. - triamterene-hydroCHLOROthi azide (MAXZIDE-25MG) 37.5-25 mg per tablet Take 1 tablet by mouth once daily. - diclofenac (VOLTAREN) 1 % topical gel Apply 4 g to affected area four times daily as needed (for pain). As Directed. - naloxone 4 mg/actuation nasal spray (NARCAN) Problem List As Of Date 10/08/2023 Noted Resolved SPRAIN SHOULDER/ARM NOS [BFK4381] 06/22/2008 09/25/2008 Rotator cuff (capsule) sprain [S43.429A] 09/25/2008 05/22/2016 Primary hypertension [I10] 05/07/2009 Hyperlipidemia [E78.5] 05/07/2009 Hypogonadism male [E29.1] 04/25/2010 05/22/2016 Other chronic pain [G89.29] 11/12/2011 Onychomycosis due to dermatophyte [B35.1] 02/08/2013 04/24/2016 Sprain of rhomboid [S23.8XXA] 06/12/2015 05/22/2016 Cervical myofascial strain [S16.1XXA] 06/12/2015 05/22/2016 Shoulder strain [S46.919A] 06/12/2015 04/17/2017 Strain of right shoulder [S46.911A] 08/10/2015 05/22/2016 Cervical strain [S16.1XXA] 08/10/2015 05/22/2016 Situational depression [F43.21] 09/17/2015 05/22/2016 Reactive depression [F32.9] 10/05/2015 04/24/2016 Chronic right-sided low back pain with right-si*10/25/2015 05/22/2016 Heel pain, bilateral [M79.671, M79.672] 10/25/2015 05/22/2016 Chronic pain [G89.29] 11/09/2015 05/22/2016 Recurrent major depression in partial remission*04/24/2016 Umbilical hernia without obstruction and withou*06/05/2016 06/11/2016 Strain of other muscles, fascia and tendons at *11/10/2016 04/17/2017 Sprain of other specified parts of right should*11/10/2016 04/17/2017 Other cervical disc degeneration, unspecified c*04/29/2017 Bursitis of both shoulders [M75.51, M75.52] 01/04/2020 Other forms of angina pectoris (HCC) [I20.89] 01/06/2020 S/P left rotator cuff repair [Z98.890] 04/16/2020 Partial nontraumatic tear of left rotator cuff *04/16/2020 Hypothyroidism, acquired [E03.9] 05/28/2021 10/16/2021 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] 06/07/2021 Osteoarthritis of both shoulders [M19.011, M19.*08/05/2021 Cervicalgia [M54.2] 08/05/2021 Rotator cuff impingement syndrome [M75.40] 08/05/2021 Rotator cuff syndrome [M75.100] 09/09/2021 Obesity, Class II, BMI 35-39.9 [E66.9] 09/09/2021 Subclinical hypothyroidism [E03.8] 10/16/2021 Acute pulmonary embolism without acute cor pulm*11/04/2021 Constipation due to opioid therapy [K59.03, T40*11/06/2021 High risk medications (not anticoagulants) long*12/20/2021 Cavernous malformation [Q28.3] 03/28/2022 Mild cognitive impairment with memory loss [G31*03/28/2022 Obesity, Class I, BMI 30-34.9 [E66.9] 06/30/2022 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] 01/16/2020 Diagnosed: 11/10/2022 Osteoarthritis of shoulder [M19.019] 04/15/2021 Diagnosed: 11/10/2022 COVID-19 [U07.1] 10/22/2021 Diagnosed: 11/10/2022 Dehydration [E86.0] 11/10/2022 Diagnosed: 11/10/2022 detention (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 of opiate analgesic [Z7*12/16/2016 Diagnosed: 11/10/2022 Superior glenoid labrum lesion of left shoulder*01/16/2020 Diagnosed: 11/10/2022 Tear of supraspinatus tendon [M75.100] 01/16/2020 Diagnosed: 11/10/2022 Myofascial pain syndrome [M79.18] 02/11/2023 Bipolar 2 disorder (HCC) [F31.81] 03/03/2023 Encounter Status:Closed by JACKSON WAGNER on 10/08/23 [facility] 10-07-2023 [facility] Telephone ([facility]) -- GERALD STALEY ([id number]) 1960 M Date Time Provider Department 10/07/23 TEO KAMINSKI [facility] During your visit today, we recorded the following information about you: Teo Kaminski APRN.WAREHOUSE DISTRIBUTION MANAGER 10/07/2023 1:29 PM Signed Called patient to discuss UDS results, no answer. Left message and sent mychart. UDS did not contain the prescribed Morphine, it did have the oxycodone. He needs to come in for a RPC no later than tomorrow. Please ask why the morphine was not in his system Ileana Roa, RN 10/09/2023 11:13 AM Addendum Gerald Staley presented to the office for his random pill count. Medication Name(s): ms contin 15 The correct pills were identified. Prescription fill date: 09/29 Current date: October 09, 2023 Expected quantity:20-21 Actual quantity:0 Discrepancy: yes Reason for the discrepancy if provided by the patient: I called pt today as per the message sent, pt told me he was here just needed to get into the building, pt now presents to the office about 40 min after the original call, he states he went to the other location, he did not know to come to the hospital, he apologized said he has great difficulties with reading/writing/spelling and possibly misunderstood the directions, knowing this I asked how he knew to come at all, he said Dr Metz office told him we had been trying to reach him via [employer], he said he didn't have a message but his wifes phone did and that's how he was notfied. He presented to the office today without the oxycodone, I asked him why he came with out the oxycodone, he said the problem was with the morphine and didn't think to bring oxycodone and again does not read well and apologized. I asked why he does not have any morphine left. He said he has a lot of pain. He said he is doing a lot of his own renovation work at his house because he can not afford a contractor, this leaves him with a lot of pain. He said his bottle says "1 as needed", I clarified with pt the the bottle says 1 per day as needed and the directions mean can take 1 per day if it is needed. He apologized and said that he did not understand the directions to mean that, pt state that he has been taking a morphine each time he takes an oxycodone. He states when he took the drug test he was out of the morphine because of this. I educated pt about taking medication safely, advised that meds should only be taken as prescribed and he again stated he did not realize that he was not taking them correctly. He said he has 2 pills in a pill organizer at home, I advised him that they are to be taken on 2 separate days, he verbalized understanding. Pt verbalized concern about his plan of care, he said he has a lot of pain, he said the oxycodone barely helps and is also the reason he thought he could use the morphine as he thought it state "as needed". Please advise Ileana Roa RN October 09, 2023 10:55 AM GORGE Amezquita Jaime, APRN.WAREHOUSE DISTRIBUTION MANAGER 10/09/2023 11:54 AM Signed No further narcotics will be prescribed. He is not being truthful. We can see the [employer] message was Last read by Cecil Man Luís at 9:30 PM on 10/08/2023. He can use whatever medications he has sparingly as he will not get any further prescriptions for either medication Ileana Roa RN 10/09/2023 1:46 PM Signed There are 2 scripts in for Sept, can you cancel them thru the computer or do I need to call pharmacy and cancel them, please advise Ileana Roa RN October 09, 2023 1:46 PM Ileana Roa RN 10/09/2023 2:38 PM Signed Attempted to call pt, he did not answer, lmom to call the office Ileana Roa RN October 09, 2023 2:38 PM Teo Kaminski APRN.WAREHOUSE DISTRIBUTION MANAGER 10/09/2023 2:58 PM Signed Since patient clearly knows how to read [employer] messages will send a [facility] Teo Kaminski APRN.WAREHOUSE DISTRIBUTION MANAGER 10/13/2023 9:06 AM Signed His prescriptions have been cancelled Allergies As of Date: 10/07/2023 Noted Allergy Reaction BAKARI INHIBITORS 05/22/2016 3 - Cough DARVOCET A500 (PROPOXYPHENE N-BAKARI*04/24/2016 8 - GI Upset Date Reviewed: 10/05/2023 Reviewed by: Ashley Coleman RN - Fully Assessed Reason for Visit: Results [95] PILL COUNT [Other] Prescriptions as of 10/13/2023 - methocarbamol (ROBAXIN-750) 750 mg tablet Take 1 tablet by mouth three times a day as needed. - QUEtiapine XR (SEROQUEL XR) 150 mg Tb24 Take by mouth. - lamoTRIgine (LAMICTAL) 150 mg tablet Take by mouth. - gabapentin (NEURONTIN) 300 mg capsule Take by mouth. - apixaban (ELIQUIS) 5 mg tab(s) Take by mouth. - losartan (COZAAR) 100 mg tablet Take 1 tablet by mouth once daily. - triamterene-hydroCHLOROthi azide (MAXZIDE-25MG) 37.5-25 mg per tablet Take 1 tablet by mouth once daily. - diclofenac (VOLTAREN) 1 % topical gel Apply 4 g to affected area four times daily as needed (for pain). As Directed. - naloxone 4 mg/actuation nasal spray (NARCAN) Probl (more content not included)... [facility] CNOVon 10-05-2023 [facility] Office Visit (NEAL ) -- GERALD STALEY ([id number]) 1960 M Date Time Provider Department 10/05/23 1:15 PM YAKOV ETIENNE During your visit today, we recorded the following information about you: Temperature Pulse Blood pressure Weight 97.6 degrees 56/minute 130/90 85.5 kg Height 1.676 m Ashley Coleman, SUKUMAR 10/05/2023 1:43 PM Signed REVIEW OF SYSTEMS: General: The patient NOTES fatigue, denies weight loss, denies weight gain, denies feeling hot, and denies feelings of cold. Eyes: The patient denies glaucoma, denies eye injury/surgery, does not wear glasses or contacts. Ear/Nose/Throat: The patient denies allergies, denies hayfever, denies ear infections, and denies bloody noses. Cardiovascular: The patient denies chest pain, denies heart disease, NOTES high blood pressure,denies cardiac stent, denies prior heart attack, denies irregular heart beat, denies high cholesterol, denies poor circulation, NOTES heart failure, other cardiac issues, denies claudication, denies cold feet, denies peripheral arterial stent. Respiratory: The patient denies tuberculosis, denies pneumonia, denies frequent cough, NOTES pulmonary embolism, denies shortness of breath, and denies coughing up blood. Gastrointestinal: The patient denies difficulty swallowing, denies acid reflux, denies ulcers, denies vomiting, denies jaundice/hepatitis, denies gallbladder problems, denies black or tarry stools, denies hemorrhoids, NOTES bleeding from rectum, denies diverticulitis, [...] patient denies thyroid disorders, denies diabetes, and NOTES hormonal problems. Hematologic: The patient denies a history of bruising, denies bleeding, and denies anemia, denies blood clots. Infections: The patient denies a history of measles and mumps, denies rheumatic fever, and denies sexually transmitted diseases. Musculoskeletal: The patient denies back pain/injury, denies back problems, denies sciatica, denies knee/foot trouble, NOTES arthritis, or denies gout. When was patient's last Mammogram screening? N/A Last Colonoscopy: 06/09/2022 SUKUMAR Pack Daniel P, MD 10/05/2023 1:52 PM Signed HISTORY AND PHYSICAL Gerald Man Staley 1960 REFERRING PHYSICIAN: Errol Cary MD CHIEF COMPLAINT: Consult (Abd pain) HPI: The patient is a 63 year old male with a complaint of abdominal bloating epigastric discomfort. And rectal bleeding. Patient over the last week is noticed 4 days straight of some painless rectal bleeding. I had actually seen him back in July of last year for the same thing but at that time it was painful he was treated with suppositories and subsequently improved. He had a previous colonoscopy done back in May 2022. Had a few polyps noted at that time as well as internal hemorrhoids on retroflexion. Abdominal bloating is mostly in the epigastric slightly to the left area but more of a bandlike structure in the upper abdomen. He has no nausea or vomiting with this has not noticed any diarrhea changes. He cannot associate any particular foods that make this worse. He has had an upper scope back in 2019. This did not reveal any signs of H. pylori. . The patient is being seen by me today at the request of Dr. Errol Cary MD for my opinion and advice regarding Epigastric pain (primary encounter diagnosis) Rectal bleeding Internal hemorrhoids Abdominal bloating . PAST MEDICAL HISTORY 04/23/2017: Abnormal EKG Comment: inf [place] age undetermined No date: Acute pulmonary embolism without acute cor pulmonale (HCC) No date: Adenomatous colon polyp No date: Anxiety No date: Aorta disorder (HCC) No date: Bipolar 2 disorder (HCC) No date: Chicken pox No date: Colon polyps No date: Depression No date: ED (erectile dysfunction) No date: Headache No date: HTN (hypertension) 04/25/2010: Hypogonadism male No date: Hypothyroidism No date: Myofascial pain dysfunction syndrome No date: Obesity No date: Osteoarthritis of multiple joints No date: Pulmonary embolism (HCC) No date: Rectal bleed No date: Shingles No date: Shoulder pain Comment: pain management. PAST SURGICAL HISTORY 06/09/2022: COLONOSCOPY Comment: Tubular Adenoma age 40: COLONOSCOPY FLX DX W/COLLJ SPEC WHEN PFRMD Comment: Colonoscopy (more content not included)... Normal [facility] CNOVon 09-29-2023 [facility] GER[facility]D [facility]Y ([id number]) 1960 M Date Time Provider Department 09/29/23 7:00 AM TEO KAMINSKI [facility] During your visit today, we recorded the following information about you: Pulse Respiration Blood pressure Weight 54/minute 20/minute 151/97 84.8 kg Teo Kaminski APRN.WAREHOUSE DISTRIBUTION MANAGER 09/29/2023 6:54 AM Addendum Order UDS Continue MS contin and oxycodone for btp. Continue methocarbamol He was started on this medication and has been maintained on it by Dr Ceballos and [employer]'s working with her. Continue care with PCP and specialists Encouraged to start PT for cervical spine pain. Once completed will order MRI Order injection in left shoulder - last done bilateral in 01/2022 with 60% relief for over 3 months Follow-up in 2 months Teo Kaminski APRN.WAREHOUSE DISTRIBUTION MANAGER 09/29/2023 7:09 AM Signed Chief Complaint: Pain History of Present Illness: Gerald Staley is a 63 year old year old male being seen at [facility] for a evaluation and/or management of his chronic pain. The patient was last seen on 09/14/2023. He states that since the last visit symptoms have been stable. His medical history has not changed and he denies any hospital stays or ER visits. Pain level: 8/10 Location: neck, pain in both shoulders - [...] Opioid agreement effective date: 03/13/2023 Last UDS: Ordered. 03/20/2023 UDS CONSISTENT 11/10/22 UDS Consistent PC 03/13/23 Summary Report Date Value Ref Range Status [...] Pain Functional Assessment Tools Pain Disability Index: 07/27/2023 09/23/2023 Pain Disability Index Family/Home Responsibilities: This category includes chores or duties performed around the house (e.g. yard work), errands or favors for other family members (e.g. driving the children to school) 8 7 Recreation: This category includes hobbies, sports, and other similar leisure time activities 9 7 Social Activity: This category refers to activities which involve participation with friends and acquaintances, other than family members. It includes parties, theater, concerts, dinning out, and other social functions 9 7 Occupation: This category refers to activities that are a part of or directly related to ones' job. This includes non-paying jobs as well, such as that of a housewi (more content not included)... [facility] [place] Tele[facility] (BEBET[facility]) -- GERALD STALEY ([id number]) 1960 Date Time Provider Department 09/25/23 YAKOV ETIENNE During your visit today, we recorded the following information about you: Ashley Coleman RN 09/25/2023 11:54 AM Signed Call placed to patient to inquire reason for visit on 10/04. Patient reason for visit states "follow up", pt hasn't been seen since 07/2022. If pt appointment is for hemmorhoids, an appointment needs moved to Dr Gutiérrez or Dr Hayden. Reason for visit is needed to ensure visit is scheduled with correct provider.Ashley Coleman RN Allergies As of Date: 09/25/2023 Noted Allergy Reaction BAKARI INHIBITORS 05/22/2016 3 - Cough DARVOCET A500 (PROPOXYPHENE N-BAKARI*04/24/2016 8 - GI Upset Date Reviewed: 07/28/2023 Reviewed by: Teo Kaminski APRN.WAREHOUSE DISTRIBUTION MANAGER - Fully Assessed Reason for Visit: Appointment [186] Prescriptions as of 09/25/2023 - oxyCODONE (ROXICODONE) 15 mg immediate release tablet Take 1 tablet by mouth every 8 hours as needed for pain for up to 30 days. Do not start before August 01, 2023. - oxyCODONE (ROXICODONE) 15 mg immediate release tablet Take 1 tablet by mouth every 8 hours as needed for pain for up to 30 days. Do not start before August 31, 2023. - methocarbamol (ROBAXIN-750) 750 mg tablet Take 1 tablet by mouth three times a day as needed. - morphine SR (MS CONTIN) 15 mg 12 hr tablet Take 1 tablet by mouth once daily as needed for pain for up to 30 days. for Pain Do not start before August 01, 2023. - morphine SR (MS CONTIN) 15 mg 12 hr tablet Take 1 tablet by mouth once daily as needed for pain for up to 30 days. for Pain Do not start before August 31, 2023. - QUEtiapine XR (SEROQUEL XR) 150 mg Tb24 Take by mouth. - lamoTRIgine (LAMICTAL) 150 mg tablet Take by mouth. - gabapentin (NEURONTIN) 300 mg capsule Take by mouth. - apixaban (ELIQUIS) 5 mg tab(s) Take by mouth. - losartan (COZAAR) 100 mg tablet Take 1 tablet by mouth once daily. - triamterene-hydroCHLOROthi azide (MAXZIDE-25MG) 37.5-25 mg per tablet Take 1 tablet by mouth once daily. - diclofenac (VOLTAREN) 1 % topical gel Apply 4 g to affected area four times daily as needed (for pain). As Directed. - naloxone 4 mg/actuation nasal spray (NARCAN) Facility-Administered Medications as of 09/25/2023 - lidocaine (PF) 10 mg/mL (1 %) 1-2 mg injection (XYLOCAINE) - lactated ringers iv infusion Problem List As Of Date 09/25/2023 Noted Resolved SPRAIN SHOULDER/ARM NOS [[id number]] 06/22/2008 09/25/2008 Rotator cuff (capsule) sprain [S43.429A] 09/25/2008 05/22/2016 Primary hypertension [I10] 05/07/2009 Hyperlipidemia [E78.5] 05/07/2009 Hypogonadism male [E29.1] 04/25/2010 05/22/2016 Other chronic pain [G89.29] 11/12/2011 Onychomycosis due to dermatophyte [B35.1] 02/08/2013 04/24/2016 Sprain of rhomboid [S23.8XXA] 06/12/2015 05/22/2016 Cervical myofascial strain [S16.1XXA] 06/12/2015 05/22/2016 Shoulder strain [S46.919A] 06/12/2015 04/17/2017 Strain of right shoulder [S46.911A] 08/10/2015 05/22/2016 Cervical strain [S16.1XXA] 08/10/2015 05/22/2016 Situational depression [F43.21] 09/17/2015 05/22/2016 Reactive depression [F32.9] 10/05/2015 04/24/2016 Chronic right-sided low back pain with right-si*10/25/2015 05/22/2016 Heel pain, bilateral [M79.671, M79.672] 10/25/2015 05/22/2016 Chronic pain [G89.29] 11/09/2015 05/22/2016 Recurrent major depression in partial remission*04/24/2016 Umbilical hernia without obstruction and withou*06/05/2016 06/11/2016 Strain of other muscles, fascia and tendons at *11/10/2016 04/17/2017 Sprain of other specified parts of right should*11/10/2016 04/17/2017 Other cervical disc degeneration, unspecified c*04/29/2017 Bursitis of both shoulders [M75.51, M75.52] 01/04/2020 Other forms of angina pectoris (HCC) [I20.89] 01/06/2020 S/P left rotator cuff repair [Z98.890] 04/16/2020 Partial nontraumatic tear of left rotator cuff *04/16/2020 Hypothyroidism, acquired [E03.9] 05/28/2021 10/16/2021 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] 06/07/2021 Osteoarthritis of both shoulders [M19.011, M19.*08/05/2021 Cervicalgia [M54.2] 08/05/2021 Rotator cuff impingement syndrome [M75.40] 08/05/2021 Rotator cuff syndrome [M75.100] 09/09/2021 Obesity, Class II, BMI 35-39.9 [E66.9] 09/09/2021 Subclinical hypothyroidism [E03.8] 10/16/2021 Acute pulmonary embolism without acute cor pulm*11/04/2021 Constipation due to opioid therapy [K59.03, T40*11/06/2021 High risk medications (not anticoagulants) long*12/20/2021 Cavernous malformation [Q28.3] 03/28/2022 Mild cognitive impairment with memory loss [G31*03/28/2022 Obesity, Class I, BMI 30-34.9 [E66.9] 06/30/2022 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 Normal [facility] [place] 07-28-2023 [place] Telephone (MANPREET) -- LUÍSGERALD Man ([id number]) 1960 M Date Time Provider Department 07/28/23 TEO KAMINSKI During your visit today, we recorded the following information about you: Dennise Breaux MA 07/28/2023 5:24 AM Signed Items addressed in this encounter: Virtual Visit Pre Check In Able to close encounter. Dennise Breaux MA July 28, 2023 5:23 AM 5:23 AM Allergies As of Date: 07/28/2023 Noted Allergy Reaction BAKARI INHIBITORS 05/22/2016 3 - Cough DARVOCET A500 (PROPOXYPHENE N-BAKARI*04/24/2016 8 - GI Upset Date Reviewed: 07/21/2023 Reviewed by: Zhen Franklin MD - Fully Assessed Reason for Visit: Other [1320] Cmt: Virtual Visit Pre Check In Prescriptions as of 07/28/2023 - morphine SR (MS CONTIN) 15 mg 12 hr tablet Take 1 tablet by mouth once daily as needed for pain for up to 30 days. for Pain Do not start before July 02, 2023. - oxyCODONE (ROXICODONE) 15 mg immediate release tablet Take 1 tablet by mouth every 8 hours as needed for pain for up to 30 days. Do not start before July 02, 2023. - QUEtiapine XR (SEROQUEL XR) 150 mg Tb24 Take by mouth. - lamoTRIgine (LAMICTAL) 150 mg tablet Take by mouth. - gabapentin (NEURONTIN) 300 mg capsule Take by mouth. - apixaban (ELIQUIS) 5 mg tab(s) Take by mouth. - oxyCODONE (ROXICODONE) 15 mg immediate release tablet Take 1 tablet by mouth every 8 hours as needed for pain for up to 30 days. - morphine SR (MS CONTIN) 15 mg 12 hr tablet Take 1 tablet by mouth once daily as needed for pain for up to 30 days. for Pain - methocarbamol (ROBAXIN-750) 750 mg tablet Take 1 tablet by mouth three times a day as needed. - losartan (COZAAR) 100 mg tablet Take 1 tablet by mouth once daily. - triamterene-hydroCHLOROthi azide (MAXZIDE-25MG) 37.5-25 mg per tablet Take 1 tablet by mouth once daily. - diclofenac (VOLTAREN) 1 % topical gel Apply 4 g to affected area four times daily as needed (for pain). As Directed. - naloxone 4 mg/actuation nasal spray (NARCAN) Facility-Administered Medications as of 07/28/2023 - lidocaine (PF) 10 mg/mL (1 %) 1-2 mg injection (XYLOCAINE) - lactated ringers iv infusion Problem List As Of Date 07/28/2023 Noted Resolved SPRAIN SHOULDER/ARM NOS [[id number]] 06/22/2008 09/25/2008 Rotator cuff (capsule) sprain [S43.429A] 09/25/2008 05/22/2016 Primary hypertension [I10] 05/07/2009 Hyperlipidemia [E78.5] 05/07/2009 Hypogonadism male [E29.1] 04/25/2010 05/22/2016 Other chronic pain [G89.29] 11/12/2011 Onychomycosis due to dermatophyte [B35.1] 02/08/2013 04/24/2016 Sprain of rhomboid [S23.8XXA] 06/12/2015 05/22/2016 Cervical myofascial strain [S16.1XXA] 06/12/2015 05/22/2016 Shoulder strain [S46.919A] 06/12/2015 04/17/2017 Strain of right shoulder [S46.911A] 08/10/2015 05/22/2016 Cervical strain [S16.1XXA] 08/10/2015 05/22/2016 Situational depression [F43.21] 09/17/2015 05/22/2016 Reactive depression [F32.9] 10/05/2015 04/24/2016 Chronic right-sided low back pain with right-si*10/25/2015 05/22/2016 Heel pain, bilateral [M79.671, M79.672] 10/25/2015 05/22/2016 Chronic pain [G89.29] 11/09/2015 05/22/2016 Recurrent major depression in partial remission*04/24/2016 Umbilical hernia without obstruction and withou*06/05/2016 06/11/2016 Strain of other muscles, fascia and tendons at *11/10/2016 04/17/2017 Sprain of other specified parts of right should*11/10/2016 04/17/2017 Other cervical disc degeneration, unspecified c*04/29/2017 Bursitis of both shoulders [M75.51, M75.52] 01/04/2020 Other forms of angina pectoris (HCC) [I20.89] 01/06/2020 S/P left rotator cuff repair [Z98.890] 04/16/2020 Partial nontraumatic tear of left rotator cuff *04/16/2020 Hypothyroidism, acquired [E03.9] 05/28/2021 10/16/2021 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] 06/07/2021 Osteoarthritis of both shoulders [M19.011, M19.*08/05/2021 Cervicalgia [M54.2] 08/05/2021 Rotator cuff impingement syndrome [M75.40] 08/05/2021 Rotator cuff syndrome [M75.100] 09/09/2021 Obesity, Class II, BMI 35-39.9 [E66.9] 09/09/2021 Subclinical hypothyroidism [E03.8] 10/16/2021 Acute pulmonary embolism without acute cor pulm*11/04/2021 Constipation due to opioid therapy [K59.03, T40*11/06/2021 High risk medications (not anticoagulants) long*12/20/2021 Cavernous malformation [Q28.3] 03/28/2022 Mild cognitive impairment with memory loss [G31*03/28/2022 Obesity, Class I, BMI 30-34.9 [E66.9] 06/30/2022 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] 01/16/2020 Osteoarthritis of shoulder [M19.019] 04/15/2021 COVID-19 [U07.1] 10/22/2021 Dehydration [E86.0] 11/10/2022 detention (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 of opiate analgesic [Z7*12/16/2016 Superior glenoid labrum lesion of left shoulder*01/16/2020 Tear of supraspinatus tendon [M75.100] 01/16/2020 Myofascial pain syndrome [M79.18] 02/11/2023 Bipolar 2 disorder (HCC) [F31.81] 03/03/2023 Encounter Status: (more content not included)... [facility] Tele[facility] (PAIMER[facility] -- GERALD STALEY ([id number]) 1960 M Date Time Provider Department 07/28/23 TEO KAMINSKI During your visit today, we recorded the following information about you: Dennise Breaux MA 07/28/2023 5:24 AM Signed Items addressed in this encounter: MyChart Encounter Able to close encounter. Dennise Breaux MA July 28, 2023 5:24 AM 5:24 AM Allergies As of Date: 07/28/2023 Noted Allergy Reaction BAKARI INHIBITORS 05/22/2016 3 - Cough DARVOCET A500 (PROPOXYPHENE N-BAKARI*04/24/2016 8 - GI Upset Date Reviewed: 07/21/2023 Reviewed by: Zhen Franklin MD - Fully Assessed Reason for Visit: Other [1320] Cmt: Patient questions Prescriptions as of 07/28/2023 - morphine SR (MS CONTIN) 15 mg 12 hr tablet Take 1 tablet by mouth once daily as needed for pain for up to 30 days. for Pain Do not start before July 02, 2023. - oxyCODONE (ROXICODONE) 15 mg immediate release tablet Take 1 tablet by mouth every 8 hours as needed for pain for up to 30 days. Do not start before July 02, 2023. - QUEtiapine XR (SEROQUEL XR) 150 mg Tb24 Take by mouth. - lamoTRIgine (LAMICTAL) 150 mg tablet Take by mouth. - gabapentin (NEURONTIN) 300 mg capsule Take by mouth. - apixaban (ELIQUIS) 5 mg tab(s) Take by mouth. - oxyCODONE (ROXICODONE) 15 mg immediate release tablet Take 1 tablet by mouth every 8 hours as needed for pain for up to 30 days. - morphine SR (MS CONTIN) 15 mg 12 hr tablet Take 1 tablet by mouth once daily as needed for pain for up to 30 days. for Pain - methocarbamol (ROBAXIN-750) 750 mg tablet Take 1 tablet by mouth three times a day as needed. - losartan (COZAAR) 100 mg tablet Take 1 tablet by mouth once daily. - triamterene-hydroCHLOROthi azide (MAXZIDE-25MG) 37.5-25 mg per tablet Take 1 tablet by mouth once daily. - diclofenac (VOLTAREN) 1 % topical gel Apply 4 g to affected area four times daily as needed (for pain). As Directed. - naloxone 4 mg/actuation nasal spray (NARCAN) Facility-Administered Medications as of 07/28/2023 - lidocaine (PF) 10 mg/mL (1 %) 1-2 mg injection (XYLOCAINE) - lactated ringers iv infusion Problem List As Of Date 07/28/2023 Noted Resolved SPRAIN SHOULDER/ARM NOS [[id number]] 06/22/2008 09/25/2008 Rotator cuff (capsule) sprain [S43.429A] 09/25/2008 05/22/2016 Primary hypertension [I10] 05/07/2009 Hyperlipidemia [E78.5] 05/07/2009 Hypogonadism male [E29.1] 04/25/2010 05/22/2016 Other chronic pain [G89.29] 11/12/2011 Onychomycosis due to dermatophyte [B35.1] 02/08/2013 04/24/2016 Sprain of rhomboid [S23.8XXA] 06/12/2015 05/22/2016 Cervical myofascial strain [S16.1XXA] 06/12/2015 05/22/2016 Shoulder strain [S46.919A] 06/12/2015 04/17/2017 Strain of right shoulder [S46.911A] 08/10/2015 05/22/2016 Cervical strain [S16.1XXA] 08/10/2015 05/22/2016 Situational depression [F43.21] 09/17/2015 05/22/2016 Reactive depression [F32.9] 10/05/2015 04/24/2016 Chronic right-sided low back pain with right-si*10/25/2015 05/22/2016 Heel pain, bilateral [M79.671, M79.672] 10/25/2015 05/22/2016 Chronic pain [G89.29] 11/09/2015 05/22/2016 Recurrent major depression in partial remission*04/24/2016 Umbilical hernia without obstruction and withou*06/05/2016 06/11/2016 Strain of other muscles, fascia and tendons at *11/10/2016 04/17/2017 Sprain of other specified parts of right should*11/10/2016 04/17/2017 Other cervical disc degeneration, unspecified c*04/29/2017 Bursitis of both shoulders [M75.51, M75.52] 01/04/2020 Other forms of angina pectoris (HCC) [I20.89] 01/06/2020 S/P left rotator cuff repair [Z98.890] 04/16/2020 Partial nontraumatic tear of left rotator cuff *04/16/2020 Hypothyroidism, acquired [E03.9] 05/28/2021 10/16/2021 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] 06/07/2021 Osteoarthritis of both shoulders [M19.011, M19.*08/05/2021 Cervicalgia [M54.2] 08/05/2021 Rotator cuff impingement syndrome [M75.40] 08/05/2021 Rotator cuff syndrome [M75.100] 09/09/2021 Obesity, Class II, BMI 35-39.9 [E66.9] 09/09/2021 Subclinical hypothyroidism [E03.8] 10/16/2021 Acute pulmonary embolism without acute cor pulm*11/04/2021 Constipation due to opioid therapy [K59.03, T40*11/06/2021 High risk medications (not anticoagulants) long*12/20/2021 Cavernous malformation [Q28.3] 03/28/2022 Mild cognitive impairment with memory loss [G31*03/28/2022 Obesity, Class I, BMI 30-34.9 [E66.9] 06/30/2022 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] 01/16/2020 Osteoarthritis of shoulder [M19.019] 04/15/2021 COVID-19 [U07.1] 10/22/2021 Dehydration [E86.0] 11/10/2022 detention (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 of opiate analgesic [Z7*12/16/2016 Superior glenoid labrum lesion of left shoulder*01/16/2020 Tear of supraspinatus tendon [M75.100] 01/16/2020 Myofascial pain syndrome [M79.18] 02/11/2023 Bipolar 2 disorder (HCC) [F31.81] 03/03/2023 Encounter Status:Closed by Tanner BREAUX (more content not included)... [facility] OPERATIVE NOon 07-21-2023 OPERATIVE NO HNO ID: [id number] Author: ZHEN FRANKLIN MD Service: Pain Management Author Type: Anesthesiologist Type: Operative Report Filed: 07/21/2023 11:09 Note Text: PROCEDURE: Left shoulder corticosteroid injection. DATE OF SERVICE: July 21, 2023 PREPROCEDURE DIAGNOSIS: Left shoulder osteoarthritis, left shoulder degenerative changes, left shoulder pain ANESTHESIA: Local COMPLICATIONS: None CONSENT: Risks of the procedure including bleeding, infection, nerve damage, seizure, abscess formation, hematoma formation, headache, failure of the pain to improve and potential worsening of the pain, were explained in full to the patient who verbalized understanding and wishes to proceed with the injection at this time. Written informed consent was thereby obtained. BRIEF HISTORY: See Teo's last office note. DESCRIPTION OF PROCEDURE: After written informed consent was obtained as above, the patient was placed on the examination room table in the sitting position. The left shoulder joint space was identified using the subacromial approach. The skin was sterilely prepped with ChloraPrep. A sterile drape was applied. The skin and subcutaneous tissues were infiltrated with 5- cc of 1% Lidocaine and a 25 gauge 1 ? inch needle. After negative aspiration to heme, a total of 60 mg of Kenalog and 5 cc quarter percent preservative-free Marcaine was injected to the left shoulder. There were no complications noted upon injection. The needle tip was removed intact. The patient remained neurovascularly intact both pre- and postprocedure. The area was wiped clean and a Band-Aid was applied as appropriate. The patient was transferred to the recovery area where their VSS remained stable. After a period of observation, the patient was discharged home in good condition. COMMENTS: [facility] [place] Tele[facility] (MANPREET) -- GERALD STALEY ([id number]) 1960 M Date Time Provider Department 07/01/23 TEO KAMINSKI During your visit today, we recorded the following information about you: Dennise Breaux MA 07/01/2023 5:30 AM Signed Items addressed in this encounter: Virtual Visit Pre Check In Able to close encounter. Dennise Breaux MA July 01, 2023 5:24 AM 5:24 AM Allergies As of Date: 07/01/2023 Noted Allergy Reaction BAKARI INHIBITORS 05/22/2016 3 - Cough DARVOCET A500 (PROPOXYPHENE N-BAKARI*04/24/2016 8 - GI Upset Date Reviewed: 06/02/2023 Reviewed by: Teo Kaminski APRN.WAREHOUSE DISTRIBUTION MANAGER - Fully Assessed Prescriptions as of 07/01/2023 - QUEtiapine XR (SEROQUEL XR) 150 mg Tb24 Take by mouth. - lamoTRIgine (LAMICTAL) 150 mg tablet Take by mouth. - gabapentin (NEURONTIN) 300 mg capsule Take by mouth. - apixaban (ELIQUIS) 5 mg tab(s) Take by mouth. - oxyCODONE (ROXICODONE) 15 mg immediate release tablet Take 1 tablet by mouth every 8 hours as needed for pain for up to 30 days. - morphine SR (MS CONTIN) 15 mg 12 hr tablet Take 1 tablet by mouth once daily as needed for pain for up to 30 days. for Pain - methocarbamol (ROBAXIN-750) 750 mg tablet Take 1 tablet by mouth three times a day as needed. - morphine SR (MS CONTIN) 15 mg 12 hr tablet Take 1 tablet by mouth once daily as needed for pain for up to 30 days. for Pain Do not start before May 03, 2023. - oxyCODONE (ROXICODONE) 15 mg immediate release tablet Take 1 tablet by mouth every 8 hours as needed for pain for up to 30 days. Do not start before May 03, 2023. - losartan (COZAAR) 100 mg tablet Take 1 tablet by mouth once daily. - triamterene-hydroCHLOROthi azide (MAXZIDE-25MG) 37.5-25 mg per tablet Take 1 tablet by mouth once daily. - diclofenac (VOLTAREN) 1 % topical gel Apply 4 g to affected area four times daily as needed (for pain). As Directed. - naloxone 4 mg/actuation nasal spray (NARCAN) Facility-Administered Medications as of 07/01/2023 - lidocaine (PF) 10 mg/mL (1 %) 1-2 mg injection (XYLOCAINE) - lactated ringers iv infusion Problem List As Of Date 07/01/2023 Noted Resolved SPRAIN SHOULDER/ARM NOS [[id number]] 06/22/2008 09/25/2008 Rotator cuff (capsule) sprain [S43.429A] 09/25/2008 05/22/2016 Primary hypertension [I10] 05/07/2009 Hyperlipidemia [E78.5] 05/07/2009 Hypogonadism male [E29.1] 04/25/2010 05/22/2016 Other chronic pain [G89.29] 11/12/2011 Onychomycosis due to dermatophyte [B35.1] 02/08/2013 04/24/2016 Sprain of rhomboid [S23.8XXA] 06/12/2015 05/22/2016 Cervical myofascial strain [S16.1XXA] 06/12/2015 05/22/2016 Shoulder strain [S46.919A] 06/12/2015 04/17/2017 Strain of right shoulder [S46.911A] 08/10/2015 05/22/2016 Cervical strain [S16.1XXA] 08/10/2015 05/22/2016 Situational depression [F43.21] 09/17/2015 05/22/2016 Reactive depression [F32.9] 10/05/2015 04/24/2016 Chronic right-sided low back pain with right-si*10/25/2015 05/22/2016 Heel pain, bilateral [M79.671, M79.672] 10/25/2015 05/22/2016 Chronic pain [G89.29] 11/09/2015 05/22/2016 Recurrent major depression in partial remission*04/24/2016 Umbilical hernia without obstruction and withou*06/05/2016 06/11/2016 Strain of other muscles, fascia and tendons at *11/10/2016 04/17/2017 Sprain of other specified parts of right should*11/10/2016 04/17/2017 Other cervical disc degeneration, unspecified c*04/29/2017 Bursitis of both shoulders [M75.51, M75.52] 01/04/2020 Other forms of angina pectoris (HCC) [I20.89] 01/06/2020 S/P left rotator cuff repair [Z98.890] 04/16/2020 Partial nontraumatic tear of left rotator cuff *04/16/2020 Hypothyroidism, acquired [E03.9] 05/28/2021 10/16/2021 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] 06/07/2021 Osteoarthritis of both shoulders [M19.011, M19.*08/05/2021 Cervicalgia [M54.2] 08/05/2021 Rotator cuff impingement syndrome [M75.40] 08/05/2021 Rotator cuff syndrome [M75.100] 09/09/2021 Obesity, Class II, BMI 35-39.9 [E66.9] 09/09/2021 Subclinical hypothyroidism [E03.8] 10/16/2021 Acute pulmonary embolism without acute cor pulm*11/04/2021 Constipation due to opioid therapy [K59.03, T40*11/06/2021 High risk medications (not anticoagulants) long*12/20/2021 Cavernous malformation [Q28.3] 03/28/2022 Mild cognitive impairment with memory loss [G31*03/28/2022 Obesity, Class I, BMI 30-34.9 [E66.9] 06/30/2022 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] 01/16/2020 Osteoarthritis of shoulder [M19.019] 04/15/2021 COVID-19 [U07.1] 10/22/2021 Dehydration [E86.0] 11/10/2022 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*12/16/2016 Superior glenoid labrum lesion of left shoulder*01/16/2020 Tear of supraspinatus tendon [M75.100] 01/16/2020 Myofascial pain syndrome [M79.18] 02/11/2023 Bipolar 2 disorder (HCC) [F31.81] 03/03/2023 Encounter Status:Closed by DENNISE BREAUX on 07/01/23 [facility] -- GERALD STALEY ([id number]) 1960 M Date Time Provider Department 07/01/23 TEO KAMINSKI During your visit today, we recorded the following information about you: Dennise Breaux MA 07/01/2023 5:32 AM Signed Items addressed in this encounter: MyChart Encounter Able to close encounter. Dennise Breaux MA July 01, 2023 5:31 AM 5:31 AM Allergies As of Date: 07/01/2023 Noted Allergy Reaction BAKARI INHIBITORS 05/22/2016 3 - Cough DARVOCET A500 (PROPOXYPHENE N-BAKARI*04/24/2016 8 - GI Upset Date Reviewed: 06/02/2023 Reviewed by: Teo Kaminski APRN.WAREHOUSE DISTRIBUTION MANAGER - Fully Assessed Reason for Visit: Other [1320] Cmt: Patient questions Prescriptions as of 07/01/2023 - QUEtiapine XR (SEROQUEL XR) 150 mg Tb24 Take by mouth. - lamoTRIgine (LAMICTAL) 150 mg tablet Take by mouth. - gabapentin (NEURONTIN) 300 mg capsule Take by mouth. - apixaban (ELIQUIS) 5 mg tab(s) Take by mouth. - oxyCODONE (ROXICODONE) 15 mg immediate release tablet Take 1 tablet by mouth every 8 hours as needed for pain for up to 30 days. - morphine SR (MS CONTIN) 15 mg 12 hr tablet Take 1 tablet by mouth once daily as needed for pain for up to 30 days. for Pain - methocarbamol (ROBAXIN-750) 750 mg tablet Take 1 tablet by mouth three times a day as needed. - morphine SR (MS CONTIN) 15 mg 12 hr tablet Take 1 tablet by mouth once daily as needed for pain for up to 30 days. for Pain Do not start before May 03, 2023. - oxyCODONE (ROXICODONE) 15 mg immediate release tablet Take 1 tablet by mouth every 8 hours as needed for pain for up to 30 days. Do not start before May 03, 2023. - losartan (COZAAR) 100 mg tablet Take 1 tablet by mouth once daily. - triamterene-hydroCHLOROthi azide (MAXZIDE-25MG) 37.5-25 mg per tablet Take 1 tablet by mouth once daily. - diclofenac (VOLTAREN) 1 % topical gel Apply 4 g to affected area four times daily as needed (for pain). As Directed. - naloxone 4 mg/actuation nasal spray (NARCAN) Facility-Administered Medications as of 07/01/2023 - lidocaine (PF) 10 mg/mL (1 %) 1-2 mg injection (XYLOCAINE) - lactated ringers iv infusion Problem List As Of Date 07/01/2023 Noted Resolved SPRAIN SHOULDER/ARM NOS [[id number]] 06/22/2008 09/25/2008 Rotator cuff (capsule) sprain [S43.429A] 09/25/2008 05/22/2016 Primary hypertension [I10] 05/07/2009 Hyperlipidemia [E78.5] 05/07/2009 Hypogonadism male [E29.1] 04/25/2010 05/22/2016 Other chronic pain [G89.29] 11/12/2011 Onychomycosis due to dermatophyte [B35.1] 02/08/2013 04/24/2016 Sprain of rhomboid [S23.8XXA] 06/12/2015 05/22/2016 Cervical myofascial strain [S16.1XXA] 06/12/2015 05/22/2016 Shoulder strain [S46.919A] 06/12/2015 04/17/2017 Strain of right shoulder [S46.911A] 08/10/2015 05/22/2016 Cervical strain [S16.1XXA] 08/10/2015 05/22/2016 Situational depression [F43.21] 09/17/2015 05/22/2016 Reactive depression [F32.9] 10/05/2015 04/24/2016 Chronic right-sided low back pain with right-si*10/25/2015 05/22/2016 Heel pain, bilateral [M79.671, M79.672] 10/25/2015 05/22/2016 Chronic pain [G89.29] 11/09/2015 05/22/2016 Recurrent major depression in partial remission*04/24/2016 Umbilical hernia without obstruction and withou*06/05/2016 06/11/2016 Strain of other muscles, fascia and tendons at *11/10/2016 04/17/2017 Sprain of other specified parts of right should*11/10/2016 04/17/2017 Other cervical disc degeneration, unspecified c*04/29/2017 Bursitis of both shoulders [M75.51, M75.52] 01/04/2020 Other forms of angina pectoris (HCC) [I20.89] 01/06/2020 S/P left rotator cuff repair [Z98.890] 04/16/2020 Partial nontraumatic tear of left rotator cuff *04/16/2020 Hypothyroidism, acquired [E03.9] 05/28/2021 10/16/2021 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] 06/07/2021 Osteoarthritis of both shoulders [M19.011, M19.*08/05/2021 Cervicalgia [M54.2] 08/05/2021 Rotator cuff impingement syndrome [M75.40] 08/05/2021 Rotator cuff syndrome [M75.100] 09/09/2021 Obesity, Class II, BMI 35-39.9 [E66.9] 09/09/2021 Subclinical hypothyroidism [E03.8] 10/16/2021 Acute pulmonary embolism without acute cor pulm*11/04/2021 Constipation due to opioid therapy [K59.03, T40*11/06/2021 High risk medications (not anticoagulants) long*12/20/2021 Cavernous malformation [Q28.3] 03/28/2022 Mild cognitive impairment with memory loss [G31*03/28/2022 Obesity, Class I, BMI 30-34.9 [E66.9] 06/30/2022 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] 01/16/2020 Osteoarthritis of shoulder [M19.019] 04/15/2021 COVID-19 [U07.1] 10/22/2021 Dehydration [E86.0] 11/10/2022 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*12/16/2016 Superior glenoid labrum lesion of left shoulder*01/16/2020 Tear of supraspinatus tendon [M75.100] 01/16/2020 Myofascial pain syndrome [M79.18] 02/11/2023 Bipolar 2 disorder (HCC) [F31.81] 03/03/2023 Encounter Status:Closed by RONNELL (more [facility] not included[facility]MANPREET[facility] -- GERALD STALEY ([id number]) 1960 M Date Time Provider Department 06/02/23 TEO KAMINSKI During your visit today, we recorded the following information about you: Dennise Breaux MA 06/02/2023 5:28 AM Signed Items addressed in this encounter: Virtual Visit Pre Check In Able to close encounter. Dennise Breaux MA June 02, 2023 5:27 AM 5:27 AM Allergies As of Date: 06/02/2023 Noted Allergy Reaction BAKARI INHIBITORS 05/22/2016 3 - Cough DARVOCET A500 (PROPOXYPHENE N-BAKARI*04/24/2016 8 - GI Upset Date Reviewed: 03/03/2023 Reviewed by: Teo Kaminski APRN.WAREHOUSE DISTRIBUTION MANAGER - Fully Assessed Reason for Visit: Other [1320] Cmt: Virtual Visit Pre Check In Prescriptions as of 06/02/2023 - methocarbamol (ROBAXIN-750) 750 mg tablet Take 1 tablet by mouth three times a day as needed. - oxyCODONE (ROXICODONE) 15 mg immediate release tablet Take 1 tablet by mouth every 8 hours as needed for pain for up to 30 days. Do not start before April 03, 2023. - morphine SR (MS CONTIN) 15 mg 12 hr tablet Take 1 tablet by mouth once daily as needed for pain for up to 30 days. for Pain Do not start before April 03, 2023. - morphine SR (MS CONTIN) 15 mg 12 hr tablet Take 1 tablet by mouth once daily as needed for pain for up to 30 days. for Pain Do not start before May 03, 2023. - oxyCODONE (ROXICODONE) 15 mg immediate release tablet Take 1 tablet by mouth every 8 hours as needed for pain for up to 30 days. Do not start before May 03, 2023. - losartan (COZAAR) 100 mg tablet Take 1 tablet by mouth once daily. - triamterene-hydroCHLOROthi azide (MAXZIDE-25MG) 37.5-25 mg per tablet Take 1 tablet by mouth once daily. - diclofenac (VOLTAREN) 1 % topical gel Apply 4 g to affected area four times daily as needed (for pain). As Directed. - naloxone 4 mg/actuation nasal spray (NARCAN) Facility-Administered Medications as of 06/02/2023 - lidocaine (PF) 10 mg/mL (1 %) 1-2 mg injection (XYLOCAINE) - lactated ringers iv infusion Problem List As Of Date 06/02/2023 Noted Resolved SPRAIN SHOULDER/ARM NOS [[id number]] 06/22/2008 09/25/2008 Rotator cuff (capsule) sprain [S43.429A] 09/25/2008 05/22/2016 Primary hypertension [I10] 05/07/2009 Hyperlipidemia [E78.5] 05/07/2009 Hypogonadism male [E29.1] 04/25/2010 05/22/2016 Other chronic pain [G89.29] 11/12/2011 Onychomycosis due to dermatophyte [B35.1] 02/08/2013 04/24/2016 Sprain of rhomboid [S23.8XXA] 06/12/2015 05/22/2016 Cervical myofascial strain [S16.1XXA] 06/12/2015 05/22/2016 Shoulder strain [S46.919A] 06/12/2015 04/17/2017 Strain of right shoulder [S46.911A] 08/10/2015 05/22/2016 Cervical strain [S16.1XXA] 08/10/2015 05/22/2016 Situational depression [F43.21] 09/17/2015 05/22/2016 Reactive depression [F32.9] 10/05/2015 04/24/2016 Chronic right-sided low back pain with right-si*10/25/2015 05/22/2016 Heel pain, bilateral [M79.671, M79.672] 10/25/2015 05/22/2016 Chronic pain [G89.29] 11/09/2015 05/22/2016 Recurrent major depression in partial remission*04/24/2016 Umbilical hernia without obstruction and withou*06/05/2016 06/11/2016 Strain of other muscles, fascia and tendons at *11/10/2016 04/17/2017 Sprain of other specified parts of right should*11/10/2016 04/17/2017 Other cervical disc degeneration, unspecified c*04/29/2017 Bursitis of both shoulders [M75.51, M75.52] 01/04/2020 Other forms of angina pectoris (HCC) [I20.89] 01/06/2020 S/P left rotator cuff repair [Z98.890] 04/16/2020 Partial nontraumatic tear of left rotator cuff *04/16/2020 Hypothyroidism, acquired [E03.9] 05/28/2021 10/16/2021 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] 06/07/2021 Osteoarthritis of both shoulders [M19.011, M19.*08/05/2021 Cervicalgia [M54.2] 08/05/2021 Rotator cuff impingement syndrome [M75.40] 08/05/2021 Rotator cuff syndrome [M75.100] 09/09/2021 Obesity, Class II, BMI 35-39.9 [E66.9] 09/09/2021 Subclinical hypothyroidism [E03.8] 10/16/2021 Acute pulmonary embolism without acute cor pulm*11/04/2021 Constipation due to opioid therapy [K59.03, T40*11/06/2021 High risk medications (not anticoagulants) long*12/20/2021 Cavernous malformation [Q28.3] 03/28/2022 Mild cognitive impairment with memory loss [G31*03/28/2022 Obesity, Class I, BMI 30-34.9 [E66.9] 06/30/2022 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] 01/16/2020 Osteoarthritis of shoulder [M19.019] 04/15/2021 COVID-19 [U07.1] 10/22/2021 Dehydration [E86.0] 11/10/2022 detention (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 of opiate analgesic [Z7*12/16/2016 Superior glenoid labrum lesion of left shoulder*01/16/2020 Tear of supraspinatus tendon [M75.100] 01/16/2020 Myofascial pain syndrome [M79.18] 02/11/2023 Bipolar 2 disorder (HCC) [F31.81] 03/03/2023 Encounter Status:Closed by DENNISE BREAUX on 06/02/23 [facility] Telephone (MANPREET) -- GERALD STALEY ([id number]) 1960 [place] Date Time Provider Department 06/02/23 TEO KAMINSKI During your visit today, we recorded the following information about you: Dennise Breaux MA 06/02/2023 5:29 AM Signed Items addressed in this encounter: MyChart Encounter Able to close encounter. Dennise Breaux MA June 02, 2023 5:29 AM 5:29 AM Allergies As of Date: 06/02/2023 Noted Allergy Reaction BAKARI INHIBITORS 05/22/2016 3 - Cough DARVOCET A500 (PROPOXYPHENE N-BAAKRI*04/24/2016 8 - GI Upset Date Reviewed: 03/03/2023 Reviewed by: Teo Kaminski APRN.WAREHOUSE DISTRIBUTION MANAGER - Fully Assessed Reason for Visit: Other [1320] Cmt: Patient questions Prescriptions as of 06/02/2023 - methocarbamol (ROBAXIN-750) 750 mg tablet Take 1 tablet by mouth three times a day as needed. - oxyCODONE (ROXICODONE) 15 mg immediate release tablet Take 1 tablet by mouth every 8 hours as needed for pain for up to 30 days. Do not start before April 03, 2023. - morphine SR (MS CONTIN) 15 mg 12 hr tablet Take 1 tablet by mouth once daily as needed for pain for up to 30 days. for Pain Do not start before April 03, 2023. - morphine SR (MS CONTIN) 15 mg 12 hr tablet Take 1 tablet by mouth once daily as needed for pain for up to 30 days. for Pain Do not start before May 03, 2023. - oxyCODONE (ROXICODONE) 15 mg immediate release tablet Take 1 tablet by mouth every 8 hours as needed for pain for up to 30 days. Do not start before May 03, 2023. - losartan (COZAAR) 100 mg tablet Take 1 tablet by mouth once daily. - triamterene-hydroCHLOROthi azide (MAXZIDE-25MG) 37.5-25 mg per tablet Take 1 tablet by mouth once daily. - diclofenac (VOLTAREN) 1 % topical gel Apply 4 g to affected area four times daily as needed (for pain). As Directed. - naloxone 4 mg/actuation nasal spray (NARCAN) Facility-Administered Medications as of 06/02/2023 - lidocaine (PF) 10 mg/mL (1 %) 1-2 mg injection (XYLOCAINE) - lactated ringers iv infusion Problem List As Of Date 06/02/2023 Noted Resolved SPRAIN SHOULDER/ARM NOS [[id number]] 06/22/2008 09/25/2008 Rotator cuff (capsule) sprain [S43.429A] 09/25/2008 05/22/2016 Primary hypertension [I10] 05/07/2009 Hyperlipidemia [E78.5] 05/07/2009 Hypogonadism male [E29.1] 04/25/2010 05/22/2016 Other chronic pain [G89.29] 11/12/2011 Onychomycosis due to dermatophyte [B35.1] 02/08/2013 04/24/2016 Sprain of rhomboid [S23.8XXA] 06/12/2015 05/22/2016 Cervical myofascial strain [S16.1XXA] 06/12/2015 05/22/2016 Shoulder strain [S46.919A] 06/12/2015 04/17/2017 Strain of right shoulder [S46.911A] 08/10/2015 05/22/2016 Cervical strain [S16.1XXA] 08/10/2015 05/22/2016 Situational depression [F43.21] 09/17/2015 05/22/2016 Reactive depression [F32.9] 10/05/2015 04/24/2016 Chronic right-sided low back pain with right-si*10/25/2015 05/22/2016 Heel pain, bilateral [M79.671, M79.672] 10/25/2015 05/22/2016 Chronic pain [G89.29] 11/09/2015 05/22/2016 Recurrent major depression in partial remission*04/24/2016 Umbilical hernia without obstruction and withou*06/05/2016 06/11/2016 Strain of other muscles, fascia and tendons at *11/10/2016 04/17/2017 Sprain of other specified parts of right should*11/10/2016 04/17/2017 Other cervical disc degeneration, unspecified c*04/29/2017 Bursitis of both shoulders [M75.51, M75.52] 01/04/2020 Other forms of angina pectoris (HCC) [I20.89] 01/06/2020 S/P left rotator cuff repair [Z98.890] 04/16/2020 Partial nontraumatic tear of left rotator cuff *04/16/2020 Hypothyroidism, acquired [E03.9] 05/28/2021 10/16/2021 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] 06/07/2021 Osteoarthritis of both shoulders [M19.011, M19.*08/05/2021 Cervicalgia [M54.2] 08/05/2021 Rotator cuff impingement syndrome [M75.40] 08/05/2021 Rotator cuff syndrome [M75.100] 09/09/2021 Obesity, Class II, BMI 35-39.9 [E66.9] 09/09/2021 Subclinical hypothyroidism [E03.8] 10/16/2021 Acute pulmonary embolism without acute cor pulm*11/04/2021 Constipation due to opioid therapy [K59.03, T40*11/06/2021 High risk medications (not anticoagulants) long*12/20/2021 Cavernous malformation [Q28.3] 03/28/2022 Mild cognitive impairment with memory loss [G31*03/28/2022 Obesity, Class I, BMI 30-34.9 [E66.9] 06/30/2022 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] 01/16/2020 Osteoarthritis of shoulder [M19.019] 04/15/2021 COVID-19 [U07.1] 10/22/2021 Dehydration [E86.0] 11/10/2022 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*12/16/2016 Superior glenoid labrum lesion of left shoulder*01/16/2020 Tear of supraspinatus tendon [M75.100] 01/16/2020 Myofascial pain syndrome [M79.18] 02/11/2023 Bipolar 2 disorder (HCC) [F31.81] 03/03/2023 Encounter Status:Closed by DENNISE BREAUX on 06/02/23 [facility] 04-30-2023 [place] Telephone (MANPREET) -- GERALD STALEY ([id number]) 1960 [place] Date Time Provider Department 04/30/23 TEO KAMINSKI During your visit today, we recorded the following information about you: Dennise Breaux MA 04/30/2023 10:11 AM Signed Items addressed in this encounter: MyChart Encounter Able to close encounter. Dennise Breaux MA April 30, 2023 10:10 AM 10:10 AM Allergies As of Date: 04/30/2023 Noted Allergy Reaction BAKARI INHIBITORS 05/22/2016 3 - Cough DARVOCET A500 (PROPOXYPHENE N-BAKARI*04/24/2016 8 - GI Upset Date Reviewed: 03/03/2023 Reviewed by: Teo Kaminski APRN.WAREHOUSE DISTRIBUTION MANAGER - Fully Assessed Reason for Visit: Other [1320] Cmt: Health Maintenance Prescriptions as of 04/30/2023 - methocarbamol (ROBAXIN-750) 750 mg tablet Take 1 tablet by mouth three times a day as needed. - oxyCODONE (ROXICODONE) 15 mg immediate release tablet Take 1 tablet by mouth every 8 hours as needed for pain for up to 30 days. Do not start before April 03, 2023. - morphine SR (MS CONTIN) 15 mg 12 hr tablet Take 1 tablet by mouth once daily as needed for pain for up to 30 days. for Pain Do not start before April 03, 2023. - morphine SR (MS CONTIN) 15 mg 12 hr tablet Take 1 tablet by mouth once daily as needed for pain for up to 30 days. for Pain Do not start before May 03, 2023. - oxyCODONE (ROXICODONE) 15 mg immediate release tablet Take 1 tablet by mouth every 8 hours as needed for pain for up to 30 days. Do not start before May 03, 2023. - losartan (COZAAR) 100 mg tablet Take 1 tablet by mouth once daily. - triamterene-hydroCHLOROthi azide (MAXZIDE-25MG) 37.5-25 mg per tablet Take 1 tablet by mouth once daily. - diclofenac (VOLTAREN) 1 % topical gel Apply 4 g to affected area four times daily as needed (for pain). As Directed. - naloxone 4 mg/actuation nasal spray (NARCAN) Facility-Administered Medications as of 04/30/2023 - lidocaine (PF) 10 mg/mL (1 %) 1-2 mg injection (XYLOCAINE) - lactated ringers iv infusion Problem List As Of Date 04/30/2023 Noted Resolved SPRAIN SHOULDER/ARM NOS [[id number]] 06/22/2008 09/25/2008 Rotator cuff (capsule) sprain [S43.429A] 09/25/2008 05/22/2016 Primary hypertension [I10] 05/07/2009 Hyperlipidemia [E78.5] 05/07/2009 Hypogonadism male [E29.1] 04/25/2010 05/22/2016 Other chronic pain [G89.29] 11/12/2011 Onychomycosis due to dermatophyte [B35.1] 02/08/2013 04/24/2016 Sprain of rhomboid [S23.8XXA] 06/12/2015 05/22/2016 Cervical myofascial strain [S16.1XXA] 06/12/2015 05/22/2016 Shoulder strain [S46.919A] 06/12/2015 04/17/2017 Strain of right shoulder [S46.911A] 08/10/2015 05/22/2016 Cervical strain [S16.1XXA] 08/10/2015 05/22/2016 Situational depression [F43.21] 09/17/2015 05/22/2016 Reactive depression [F32.9] 10/05/2015 04/24/2016 Chronic right-sided low back pain with right-si*10/25/2015 05/22/2016 Heel pain, bilateral [M79.671, M79.672] 10/25/2015 05/22/2016 Chronic pain [G89.29] 11/09/2015 05/22/2016 Recurrent major depression in partial remission*04/24/2016 Umbilical hernia without obstruction and withou*06/05/2016 06/11/2016 Strain of other muscles, fascia and tendons at *11/10/2016 04/17/2017 Sprain of other specified parts of right should*11/10/2016 04/17/2017 Other cervical disc degeneration, unspecified c*04/29/2017 Bursitis of both shoulders [M75.51, M75.52] 01/04/2020 Other forms of angina pectoris (HCC) [I20.89] 01/06/2020 S/P left rotator cuff repair [Z98.890] 04/16/2020 Partial nontraumatic tear of left rotator cuff *04/16/2020 Hypothyroidism, acquired [E03.9] 05/28/2021 10/16/2021 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] 06/07/2021 Osteoarthritis of both shoulders [M19.011, M19.*08/05/2021 Cervicalgia [M54.2] 08/05/2021 Rotator cuff impingement syndrome [M75.40] 08/05/2021 Rotator cuff syndrome [M75.100] 09/09/2021 Obesity, Class II, BMI 35-39.9 [E66.9] 09/09/2021 Subclinical hypothyroidism [E03.8] 10/16/2021 Acute pulmonary embolism without acute cor pulm*11/04/2021 Constipation due to opioid therapy [K59.03, T40*11/06/2021 High risk medications (not anticoagulants) long*12/20/2021 Cavernous malformation [Q28.3] 03/28/2022 Mild cognitive impairment with memory loss [G31*03/28/2022 Obesity, Class I, BMI 30-34.9 [E66.9] 06/30/2022 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] 01/16/2020 Osteoarthritis of shoulder [M19.019] 04/15/2021 COVID-19 [U07.1] 10/22/2021 Dehydration [E86.0] 11/10/2022 detention (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 of opiate analgesic [Z7*12/16/2016 Superior glenoid labrum lesion of left shoulder*01/16/2020 Tear of supraspinatus tendon [M75.100] 01/16/2020 Myofascial pain syndrome [M79.18] 02/11/2023 Bipolar 2 disorder (HCC) [F31.81] 03/03/2023 Encounter Status:Closed by DENNISE BREAUX on 04/30/23 [facility] Absolute lymphocyte countOrd ered By: Yahaira Patel on 04-25-2023 Lymphocytes Auto (Unsp spec) [#/Vol] 3.01 10*3/uL 0.83-4.51 [facility] Automated lymphocyte count a s percentage of total leukocytesOrdered By: Yahaira Patel on 04-25-2023 Lymphocytes/100 WBC Auto (Unsp spec) 35.2 % 19-41 [facility] Basophil percentageOrdered B y: Yahaira Patel on 04-25-2023 Basophils/100 WBC (Bld) 0.6 % 0-1 [facility] Chloride [Moles/Vol] 106 mmol/L 98-107 [facility] Eosinophils/100 WBC (Bld) 1.3 % 0-5 [facility] Glucose [Mass/Vol] 106 mg/dL 74-106 [facility] Comment on above: Fasting Glucose resu lt from 100 to 125 mg/dL suggests IMPAIRED HOMEOSTASIS per A.D.A. criteria. Hemoglobin (Bld) [Mass/Vol] 16.2 g/dL 13.0-16.5 [facility] Monocytes/100 WBC (Bld) 10.9 % 0-10 [facility] Neutrophils (Bld) [#/Vol] 4.4 10*3/uL 2.0-7.7 [facility] Neutrophils/100 WBC (Bld) 51.6 % 47-70 [facility] Potassium [Moles/Vol] 3.3 mmol/L 3.5-5.1 [facility] Sodium [Moles/Vol] 139 mmol/L 136-145 [facility] WBC (Bld) [#/Vol] 8.6 10*3/uL 4.4-11.0 [facility] Determination of erythrocyte mean corpuscular volume (MCV)Ordered By: Yahaira Patel on 04-25-2023 MCV (RBC) [Entitic vol] 84.2 fL 80-94 [facility] Erythrocyte distribution wid th ratioOrdered By: Yahaira Patel on 04-25-2023 Erythrocyte distribution width (RBC) [Ratio] 13.0 % 11.6-14.6 [facility] Erythrocyte distribution wid th standard deviationOrdered By: Yahaira Patel on 04-25-2023 Erythrocyte distribution width (RBC) [Entitic vol] 39.7 fL 35.1-43.9 [facility] Hematocrit Auto (Bld) [Volum e fraction]Ordered By: Yahaira Patel on 04-25-2023 Hematocrit (Bld) [Volume fraction] 48.1 % 40-54 [facility] Immature granulocytes/100 WB C Auto (Bld)Ordered By: Yahaira Patel on 04-25-2023 Immature granulocytes/100 WBC (Bld) 0.400 % 0.0-0.9 [facility] Comment on above: IG% - Immature Granu locytes (promyelocytes, myelocytes and metamyelocytes) > 1% indicates that a LEFT SHIFT is Present. Laboratory - Chemistry and C hemistry - challengeOrdered By: Yahaira Patel on 04-25-2023 CO2 [Moles/Vol] 27.0 mmol/L 21.0-32.0 [facility] Urea nitrogen/Creatinine [Mass ratio] 18.7 mg/mg 10-20 [facility] Laboratory - Hematology and Cell countsOrdered By: Yahaira Patel on 04-25-2023 MCH (RBC) [Entitic mass] 28.4 pg 27.0-32.0 [facility] MCHC (RBC) [Mass/Vol] 33.7 g/dL 32-36 [facility] Nucleated RBC/100 WBC (Bld) [Ratio] 0 % 0-5 [facility] Platelet mean volume (Bld) [Entitic vol] 9.3 fL 6.2-12.0 [facility] Platelets (Bld) [#/Vol] 201 10*3/uL 150-450 [facility] No Panel InformationOrdered By: Yahaira Patel on 04-25-2023 Estimated Creatinine Clearance Calc 82.18 ml/min [facility] Estimated GFR (MDRD) Amer 101 mL/min >60 [facility] Comment on above: GFR Calc Estimated GFR (MDRD) Non-Af Amer 84 mL/min >60 [facility] Comment on above: Non- GFR Calc Troponin I High Sensitivity 4 pg/mL 3.0-78.0 [facility] Comment on above: Please Note: New Ruthy t Units and Gender Specific Reference Ranges. For more information see Policy Stat Procedure [place] High Sensitivity Troponin (TNIH) and attachments. RBC Auto (Bld) [#/Vol]Ordere d By: Yahaira Patel on 04-25-2023 RBC (Bld) [#/Vol] 5.71 10*6/uL 4.6-6.2 [facility] Serum or plasma calcium ezra urement (mass/volume)Ordered By: Yahaira Patel on 04-25-2023 Calcium [Mass/Vol] 8.5 mg/dL 8.5-10.1 [facility] Serum or plasma creatinine m easurement (mass/volume)Ordered By: Yahaira Patel on 04-25-2023 Creatinine [Mass/Vol] 0.96 mg/dL 0.70-1.30 [facility] Comment on above: The validity of the calculated GFR & GFRAA in patients over 70 years has not been determined. Clinical correlation is essential. Serum or plasma urea nitroge n measurement (mass/volume)Ordered By: Yahaira Patel on 04-25-2023 Urea nitrogen [Mass/Vol] 18 mg/dL 7-18 [facility] Thin prep Papanicolaou smear with manual screeningOrdered By: Yahaira Ptael on 04-25-2023 Thin prep Papanicolaou smear with manual screening 6 5- [facility] CNPNon 04-01-2023 CNPN Telephone (MANPREET) -- GERALD STALEY ([id number]) 1960 Date Time Provider Department 04/01/23 TEO KAMINSKI During your visit today, we recorded the following information about you: Dennise Breaux MA 04/01/2023 5:29 AM Signed Items addressed in this encounter: Virtual Visit Pre Check In Able to close encounter. Dennise Breaux MA April 01, 2023 5:27 AM 5:27 AM Allergies As of Date: 04/01/2023 Noted Allergy Reaction BAKARI INHIBITORS 05/22/2016 3 - Cough DARVOCET A500 (PROPOXYPHENE N-BAKARI*04/24/2016 8 - GI Upset Date Reviewed: 03/03/2023 Reviewed by: Teo Kaminski APRN.WAREHOUSE DISTRIBUTION MANAGER - Fully Assessed Reason for Visit: Other [1320] Cmt: Virtual Visit Pre Check In Prescriptions as of 04/01/2023 - oxyCODONE (ROXICODONE) 15 mg immediate release tablet Take 1 tablet by mouth every 8 hours as needed for pain for up to 30 days. Do not start before March 04, 2023. - morphine SR (MS CONTIN) 15 mg 12 hr tablet Take 1 tablet by mouth once daily as needed for pain for up to 30 days. for Pain Do not start before March 04, 2023. - methocarbamol (ROBAXIN-750) 750 mg tablet Take 1 tablet by mouth three times a day as needed. - losartan (COZAAR) 100 mg tablet Take 1 tablet by mouth once daily. - triamterene-hydroCHLOROthi azide (MAXZIDE-25MG) 37.5-25 mg per tablet Take 1 tablet by mouth once daily. - diclofenac (VOLTAREN) 1 % topical gel Apply 4 g to affected area four times daily as needed (for pain). As Directed. - naloxone 4 mg/actuation nasal spray (NARCAN) Facility-Administered Medications as of 04/01/2023 - lidocaine (PF) 10 mg/mL (1 %) 1-2 mg injection (XYLOCAINE) - lactated ringers iv infusion Problem List As Of Date 04/01/2023 Noted Resolved SPRAIN SHOULDER/ARM NOS [[id number]] 06/22/2008 09/25/2008 Rotator cuff (capsule) sprain [S43.429A] 09/25/2008 05/22/2016 Primary hypertension [I10] 05/07/2009 Hyperlipidemia [E78.5] 05/07/2009 Hypogonadism male [E29.1] 04/25/2010 05/22/2016 Other chronic pain [G89.29] 11/12/2011 Onychomycosis due to dermatophyte [B35.1] 02/08/2013 04/24/2016 Sprain of rhomboid [S23.8XXA] 06/12/2015 05/22/2016 Cervical myofascial strain [S16.1XXA] 06/12/2015 05/22/2016 Shoulder strain [S46.919A] 06/12/2015 04/17/2017 Strain of right shoulder [S46.911A] 08/10/2015 05/22/2016 Cervical strain [S16.1XXA] 08/10/2015 05/22/2016 Situational depression [F43.21] 09/17/2015 05/22/2016 Reactive depression [F32.9] 10/05/2015 04/24/2016 Chronic right-sided low back pain with right-si*10/25/2015 05/22/2016 Heel pain, bilateral [M79.671, M79.672] 10/25/2015 05/22/2016 Chronic pain [G89.29] 11/09/2015 05/22/2016 Recurrent major depression in partial remission*04/24/2016 Umbilical hernia without obstruction and withou*06/05/2016 06/11/2016 Strain of other muscles, fascia and tendons at *11/10/2016 04/17/2017 Sprain of other specified parts of right should*11/10/2016 04/17/2017 Other cervical disc degeneration, unspecified c*04/29/2017 Bursitis of both shoulders [M75.51, M75.52] 01/04/2020 Other forms of angina pectoris (HCC) [I20.89] 01/06/2020 S/P left rotator cuff repair [Z98.890] 04/16/2020 Partial nontraumatic tear of left rotator cuff *04/16/2020 Hypothyroidism, acquired [E03.9] 05/28/2021 10/16/2021 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] 06/07/2021 Osteoarthritis of both shoulders [M19.011, M19.*08/05/2021 Cervicalgia [M54.2] 08/05/2021 Rotator cuff impingement syndrome [M75.40] 08/05/2021 Rotator cuff syndrome [M75.100] 09/09/2021 Obesity, Class II, BMI 35-39.9 [E66.9] 09/09/2021 Subclinical hypothyroidism [E03.8] 10/16/2021 Acute pulmonary embolism without acute cor pulm*11/04/2021 Constipation due to opioid therapy [K59.03, T40*11/06/2021 High risk medications (not anticoagulants) long*12/20/2021 Cavernous malformation [Q28.3] 03/28/2022 Mild cognitive impairment with memory loss [G31*03/28/2022 Obesity, Class I, BMI 30-34.9 [E66.9] 06/30/2022 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] 01/16/2020 Osteoarthritis of shoulder [M19.019] 04/15/2021 COVID-19 [U07.1] 10/22/2021 Dehydration [E86.0] 11/10/2022 detention (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 of opiate analgesic [Z7*12/16/2016 Superior glenoid labrum lesion of left shoulder*01/16/2020 Tear of supraspinatus tendon [M75.100] 01/16/2020 Myofascial pain syndrome [M79.18] 02/11/2023 Bipolar 2 disorder (HCC) [F31.81] 03/03/2023 Encounter Status:Closed by DENNISE BREAUX on 04/01/23 [facility] CNPN Telephone (MANPRE[facility]) -- GERALD STALEY ([id number]) 1960 M Date Time Provider Department 04/01/23 TEO KAMINSKI During your visit today, we recorded the following information about you: Dennise Breaux MA 04/01/2023 5:32 AM Signed Items addressed in this encounter: MyChart Encounter Able to close encounter. Dennise Breaux MA April 01, 2023 5:29 AM 5:29 AM Allergies As of Date: 04/01/2023 Noted Allergy Reaction BAKARI INHIBITORS 05/22/2016 3 - Cough DARVOCET A500 (PROPOXYPHENE N-BAKARI*04/24/2016 8 - GI Upset Date Reviewed: 03/03/2023 Reviewed by: Teo Kaminski APRN.WAREHOUSE DISTRIBUTION MANAGER - Fully Assessed Reason for Visit: Other [1320] Cmt: Patient questions Prescriptions as of 04/01/2023 - oxyCODONE (ROXICODONE) 15 mg immediate release tablet Take 1 tablet by mouth every 8 hours as needed for pain for up to 30 days. Do not start before March 04, 2023. - morphine SR (MS CONTIN) 15 mg 12 hr tablet Take 1 tablet by mouth once daily as needed for pain for up to 30 days. for Pain Do not start before March 04, 2023. - methocarbamol (ROBAXIN-750) 750 mg tablet Take 1 tablet by mouth three times a day as needed. - losartan (COZAAR) 100 mg tablet Take 1 tablet by mouth once daily. - triamterene-hydroCHLOROthi azide (MAXZIDE-25MG) 37.5-25 mg per tablet Take 1 tablet by mouth once daily. - diclofenac (VOLTAREN) 1 % topical gel Apply 4 g to affected area four times daily as needed (for pain). As Directed. - naloxone 4 mg/actuation nasal spray (NARCAN) Facility-Administered Medications as of 04/01/2023 - lidocaine (PF) 10 mg/mL (1 %) 1-2 mg injection (XYLOCAINE) - lactated ringers iv infusion Problem List As Of Date 04/01/2023 Noted Resolved SPRAIN SHOULDER/ARM NOS [[id number]] 06/22/2008 09/25/2008 Rotator cuff (capsule) sprain [S43.429A] 09/25/2008 05/22/2016 Primary hypertension [I10] 05/07/2009 Hyperlipidemia [E78.5] 05/07/2009 Hypogonadism male [E29.1] 04/25/2010 05/22/2016 Other chronic pain [G89.29] 11/12/2011 Onychomycosis due to dermatophyte [B35.1] 02/08/2013 04/24/2016 Sprain of rhomboid [S23.8XXA] 06/12/2015 05/22/2016 Cervical myofascial strain [S16.1XXA] 06/12/2015 05/22/2016 Shoulder strain [S46.919A] 06/12/2015 04/17/2017 Strain of right shoulder [S46.911A] 08/10/2015 05/22/2016 Cervical strain [S16.1XXA] 08/10/2015 05/22/2016 Situational depression [F43.21] 09/17/2015 05/22/2016 Reactive depression [F32.9] 10/05/2015 04/24/2016 Chronic right-sided low back pain with right-si*10/25/2015 05/22/2016 Heel pain, bilateral [M79.671, M79.672] 10/25/2015 05/22/2016 Chronic pain [G89.29] 11/09/2015 05/22/2016 Recurrent major depression in partial remission*04/24/2016 Umbilical hernia without obstruction and withou*06/05/2016 06/11/2016 Strain of other muscles, fascia and tendons at *11/10/2016 04/17/2017 Sprain of other specified parts of right should*11/10/2016 04/17/2017 Other cervical disc degeneration, unspecified c*04/29/2017 Bursitis of both shoulders [M75.51, M75.52] 01/04/2020 Other forms of angina pectoris (HCC) [I20.89] 01/06/2020 S/P left rotator cuff repair [Z98.890] 04/16/2020 Partial nontraumatic tear of left rotator cuff *04/16/2020 Hypothyroidism, acquired [E03.9] 05/28/2021 10/16/2021 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] 06/07/2021 Osteoarthritis of both shoulders [M19.011, M19.*08/05/2021 Cervicalgia [M54.2] 08/05/2021 Rotator cuff impingement syndrome [M75.40] 08/05/2021 Rotator cuff syndrome [M75.100] 09/09/2021 Obesity, Class II, BMI 35-39.9 [E66.9] 09/09/2021 Subclinical hypothyroidism [E03.8] 10/16/2021 Acute pulmonary embolism without acute cor pulm*11/04/2021 Constipation due to opioid therapy [K59.03, T40*11/06/2021 High risk medications (not anticoagulants) long*12/20/2021 Cavernous malformation [Q28.3] 03/28/2022 Mild cognitive impairment with memory loss [G31*03/28/2022 Obesity, Class I, BMI 30-34.9 [E66.9] 06/30/2022 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] 01/16/2020 Osteoarthritis of shoulder [M19.019] 04/15/2021 COVID-19 [U07.1] 10/22/2021 Dehydration [E86.0] 11/10/2022 detention (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 of opiate analgesic [Z7*12/16/2016 Superior glenoid labrum lesion of left shoulder*01/16/2020 Tear of supraspinatus tendon [M75.100] 01/16/2020 Myofascial pain syndrome [M79.18] 02/11/2023 Bipolar 2 disorder (HCC) [F31.81] 03/03/2023 Encounter Status:Closed by DENNISE BREAUX on 04/01/23 [facility] CNPN Telephone ([facility]) -- GERALD STALEY ([id number]) 1960 M Date Time Provider Department 04/01/23 TEO KAMINSKI During your visit today, we recorded the following information about you: Dennise Breaux MA 04/01/2023 7:21 AM Signed Items addressed in this encounter: MyChart Encounter Able to close encounter. Dennise Breaux MA April 01, 2023 7:21 AM 7:21 AM Allergies As of Date: 04/01/2023 Noted Allergy Reaction BAKARI INHIBITORS 05/22/2016 3 - Cough DARVOCET A500 (PROPOXYPHENE N-BAKARI*04/24/2016 8 - GI Upset Date Reviewed: 03/03/2023 Reviewed by: Teo Kaminski APRN.WAREHOUSE DISTRIBUTION MANAGER - Fully Assessed Reason for Visit: Other [1320] Cmt: Follow up appt Prescriptions as of 04/01/2023 - oxyCODONE (ROXICODONE) 15 mg immediate release tablet Take 1 tablet by mouth every 8 hours as needed for pain for up to 30 days. Do not start before April 03, 2023. - morphine SR (MS CONTIN) 15 mg 12 hr tablet Take 1 tablet by mouth once daily as needed for pain for up to 30 days. for Pain Do not start before April 03, 2023. - methocarbamol (ROBAXIN-750) 750 mg tablet Take 1 tablet by mouth three times a day as needed. - morphine SR (MS CONTIN) 15 mg 12 hr tablet Take 1 tablet by mouth once daily as needed for pain for up to 30 days. for Pain Do not start before May 03, 2023. - oxyCODONE (ROXICODONE) 15 mg immediate release tablet Take 1 tablet by mouth every 8 hours as needed for pain for up to 30 days. Do not start before May 03, 2023. - losartan (COZAAR) 100 mg tablet Take 1 tablet by mouth once daily. - triamterene-hydroCHLOROthi azide (MAXZIDE-25MG) 37.5-25 mg per tablet Take 1 tablet by mouth once daily. - diclofenac (VOLTAREN) 1 % topical gel Apply 4 g to affected area four times daily as needed (for pain). As Directed. - naloxone 4 mg/actuation nasal spray (NARCAN) Facility-Administered Medications as of 04/01/2023 - lidocaine (PF) 10 mg/mL (1 %) 1-2 mg injection (XYLOCAINE) - lactated ringers iv infusion Problem List As Of Date 04/01/2023 Noted Resolved SPRAIN SHOULDER/ARM NOS [[id number]] 06/22/2008 09/25/2008 Rotator cuff (capsule) sprain [S43.429A] 09/25/2008 05/22/2016 Primary hypertension [I10] 05/07/2009 Hyperlipidemia [E78.5] 05/07/2009 Hypogonadism male [E29.1] 04/25/2010 05/22/2016 Other chronic pain [G89.29] 11/12/2011 Onychomycosis due to dermatophyte [B35.1] 02/08/2013 04/24/2016 Sprain of rhomboid [S23.8XXA] 06/12/2015 05/22/2016 Cervical myofascial strain [S16.1XXA] 06/12/2015 05/22/2016 Shoulder strain [S46.919A] 06/12/2015 04/17/2017 Strain of right shoulder [S46.911A] 08/10/2015 05/22/2016 Cervical strain [S16.1XXA] 08/10/2015 05/22/2016 Situational depression [F43.21] 09/17/2015 05/22/2016 Reactive depression [F32.9] 10/05/2015 04/24/2016 Chronic right-sided low back pain with right-si*10/25/2015 05/22/2016 Heel pain, bilateral [M79.671, M79.672] 10/25/2015 05/22/2016 Chronic pain [G89.29] 11/09/2015 05/22/2016 Recurrent major depression in partial remission*04/24/2016 Umbilical hernia without obstruction and withou*06/05/2016 06/11/2016 Strain of other muscles, fascia and tendons at *11/10/2016 04/17/2017 Sprain of other specified parts of right should*11/10/2016 04/17/2017 Other cervical disc degeneration, unspecified c*04/29/2017 Bursitis of both shoulders [M75.51, M75.52] 01/04/2020 Other forms of angina pectoris (HCC) [I20.89] 01/06/2020 S/P left rotator cuff repair [Z98.890] 04/16/2020 Partial nontraumatic tear of left rotator cuff *04/16/2020 Hypothyroidism, acquired [E03.9] 05/28/2021 10/16/2021 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] 06/07/2021 Osteoarthritis of both shoulders [M19.011, M19.*08/05/2021 Cervicalgia [M54.2] 08/05/2021 Rotator cuff impingement syndrome [M75.40] 08/05/2021 Rotator cuff syndrome [M75.100] 09/09/2021 Obesity, Class II, BMI 35-39.9 [E66.9] 09/09/2021 Subclinical hypothyroidism [E03.8] 10/16/2021 Acute pulmonary embolism without acute cor pulm*11/04/2021 Constipation due to opioid therapy [K59.03, T40*11/06/2021 High risk medications (not anticoagulants) long*12/20/2021 Cavernous malformation [Q28.3] 03/28/2022 Mild cognitive impairment with memory loss [G31*03/28/2022 Obesity, Class I, BMI 30-34.9 [E66.9] 06/30/2022 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] 01/16/2020 Osteoarthritis of shoulder [M19.019] 04/15/2021 COVID-19 [U07.1] 10/22/2021 Dehydration [E86.0] 11/10/2022 detention (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 of opiate analgesic [Z7*12/16/2016 Superior glenoid labrum lesion of left shoulder*01/16/2020 Tear of supraspinatus tendon [M75.100] 01/16/2020 Myofascial pain syndrome [M79.18] 02/11/2023 Bipolar 2 disorder (HCC) [F31.81] 03/03/2023 Encounter Status:Closed by DENNISE BREAUX on 04/01/23 [facility] 03-31-2023 JADAN Telephone (MANPREET) -- GERALD STALEY ([id number]) 1960 M Date Time Provider Department 03/31/23 TEO KAMISNKI During your visit today, we recorded the following information about you: Dennise Breaux MA 03/31/2023 3:01 PM Signed Items addressed in this encounter: Health Maintenance Review Able to close encounter. Dennise Breaux MA March 31, 2023 2:56 PM 2:56 PM Allergies As of Date: 03/31/2023 Noted Allergy Reaction BAKARI INHIBITORS 05/22/2016 3 - Cough DARVOCET A500 (PROPOXYPHENE N-BAKARI*04/24/2016 8 - GI Upset Date Reviewed: 03/03/2023 Reviewed by: Teo Kaminski APRN.WAREHOUSE DISTRIBUTION MANAGER - Fully Assessed Prescriptions as of 03/31/2023 - oxyCODONE (ROXICODONE) 15 mg immediate release tablet Take 1 tablet by mouth every 8 hours as needed for pain for up to 30 days. Do not start before March 04, 2023. - morphine SR (MS CONTIN) 15 mg 12 hr tablet Take 1 tablet by mouth once daily as needed for pain for up to 30 days. for Pain Do not start before March 04, 2023. - methocarbamol (ROBAXIN-750) 750 mg tablet Take 1 tablet by mouth three times a day as needed. - losartan (COZAAR) 100 mg tablet Take 1 tablet by mouth once daily. - triamterene-hydroCHLOROthi azide (MAXZIDE-25MG) 37.5-25 mg per tablet Take 1 tablet by mouth once daily. - diclofenac (VOLTAREN) 1 % topical gel Apply 4 g to affected area four times daily as needed (for pain). As Directed. - naloxone 4 mg/actuation nasal spray (NARCAN) Facility-Administered Medications as of 03/31/2023 - lidocaine (PF) 10 mg/mL (1 %) 1-2 mg injection (XYLOCAINE) - lactated ringers iv infusion Problem List As Of Date 03/31/2023 Noted Resolved SPRAIN SHOULDER/ARM NOS [[id number]] 06/22/2008 09/25/2008 Rotator cuff (capsule) sprain [S43.429A] 09/25/2008 05/22/2016 Primary hypertension [I10] 05/07/2009 Hyperlipidemia [E78.5] 05/07/2009 Hypogonadism male [E29.1] 04/25/2010 05/22/2016 Other chronic pain [G89.29] 11/12/2011 Onychomycosis due to dermatophyte [B35.1] 02/08/2013 04/24/2016 Sprain of rhomboid [S23.8XXA] 06/12/2015 05/22/2016 Cervical myofascial strain [S16.1XXA] 06/12/2015 05/22/2016 Shoulder strain [S46.919A] 06/12/2015 04/17/2017 Strain of right shoulder [S46.911A] 08/10/2015 05/22/2016 Cervical strain [S16.1XXA] 08/10/2015 05/22/2016 Situational depression [F43.21] 09/17/2015 05/22/2016 Reactive depression [F32.9] 10/05/2015 04/24/2016 Chronic right-sided low back pain with right-si*10/25/2015 05/22/2016 Heel pain, bilateral [M79.671, M79.672] 10/25/2015 05/22/2016 Chronic pain [G89.29] 11/09/2015 05/22/2016 Recurrent major depression in partial remission*04/24/2016 Umbilical hernia without obstruction and withou*06/05/2016 06/11/2016 Strain of other muscles, fascia and tendons at *11/10/2016 04/17/2017 Sprain of other specified parts of right should*11/10/2016 04/17/2017 Other cervical disc degeneration, unspecified c*04/29/2017 Bursitis of both shoulders [M75.51, M75.52] 01/04/2020 Other forms of angina pectoris (HCC) [I20.89] 01/06/2020 S/P left rotator cuff repair [Z98.890] 04/16/2020 Partial nontraumatic tear of left rotator cuff *04/16/2020 Hypothyroidism, acquired [E03.9] 05/28/2021 10/16/2021 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] 06/07/2021 Osteoarthritis of both shoulders [M19.011, M19.*08/05/2021 Cervicalgia [M54.2] 08/05/2021 Rotator cuff impingement syndrome [M75.40] 08/05/2021 Rotator cuff syndrome [M75.100] 09/09/2021 Obesity, Class II, BMI 35-39.9 [E66.9] 09/09/2021 Subclinical hypothyroidism [E03.8] 10/16/2021 Acute pulmonary embolism without acute cor pulm*11/04/2021 Constipation due to opioid therapy [K59.03, T40*11/06/2021 High risk medications (not anticoagulants) long*12/20/2021 Cavernous malformation [Q28.3] 03/28/2022 Mild cognitive impairment with memory loss [G31*03/28/2022 Obesity, Class I, BMI 30-34.9 [E66.9] 06/30/2022 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] 01/16/2020 Osteoarthritis of shoulder [M19.019] 04/15/2021 COVID-19 [U07.1] 10/22/2021 Dehydration [E86.0] 11/10/2022 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*12/16/2016 Superior glenoid labrum lesion of left shoulder*01/16/2020 Tear of supraspinatus tendon [M75.100] 01/16/2020 Myofascial pain syndrome [M79.18] 02/11/2023 Bipolar 2 disorder (HCC) [F31.81] 03/03/2023 Encounter Status:Closed by DENNISE BREAUX on 03/31/23 [facility] -- GERALD STALEY ([id number]) 1960 M Date Time Provider Department 03/13/23 TEO KAMINSKI [facility] During your visit today, we recorded the following information about you: Teo Kaminski APRN.WAREHOUSE DISTRIBUTION MANAGER 03/13/2023 6:44 AM Signed Please call the patient for a UDS and to sign pain agreement. Order entered. Catarina Alvarez RN 03/13/2023 8:53 AM Signed Pt contacted and acknowledges below; pt states that he will come to [place] office by next Thursday for UDS and to sign opioid contract as well as to contact [facility] with any updates, questions, or concerns. Catarina Bowen RN March 13, 2023 8:53 AM Allergies As of Date: 03/13/2023 Noted Allergy Reaction BAKARI INHIBITORS 05/22/2016 3 - Cough DARVOCET A500 (PROPOXYPHENE N-BAKARI*04/24/2016 8 - GI Upset Date Reviewed: 03/03/2023 Reviewed by: Teo Kaminski APRN.WAREHOUSE DISTRIBUTION MANAGER - Fully Assessed Reason for Visit: Orders [681] Primary Visit Diagnosis: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9.891] Order(s):PREGABALIN, URINE [SQUPRGAB] Order #: [id number] FUTURE TOXASSURE? FLEX 23, URINE [[id number]] Order #: [id number] FUTURE PREGABALIN, URINE [SQUPRGAB] Order #: [id number] TOXASSURE? FLEX 23, URINE [[id number]] Order #: [id number] Prescriptions as of 03/17/2023 - oxyCODONE (ROXICODONE) 15 mg immediate release tablet Take 1 tablet by mouth every 8 hours as needed for pain for up to 30 days. Do not start before March 04, 2023. - morphine SR (MS CONTIN) 15 mg 12 hr tablet Take 1 tablet by mouth once daily as needed for pain for up to 30 days. for Pain Do not start before March 04, 2023. - methocarbamol (ROBAXIN-750) 750 mg tablet Take 1 tablet by mouth three times a day as needed. - losartan (COZAAR) 100 mg tablet Take 1 tablet by mouth once daily. - triamterene-hydroCHLOROthi azide (MAXZIDE-25MG) 37.5-25 mg per tablet Take 1 tablet by mouth once daily. - diclofenac (VOLTAREN) 1 % topical gel Apply 4 g to affected area four times daily as needed (for pain). As Directed. - naloxone 4 mg/actuation nasal spray (NARCAN) Facility-Administered Medications as of 03/17/2023 - lidocaine (PF) 10 mg/mL (1 %) 1-2 mg injection (XYLOCAINE) - lactated ringers iv infusion Problem List As Of Date 03/13/2023 Noted Resolved SPRAIN SHOULDER/ARM NOS [[id number]] 06/22/2008 09/25/2008 Rotator cuff (capsule) sprain [S43.429A] 09/25/2008 05/22/2016 Primary hypertension [I10] 05/07/2009 Hyperlipidemia [E78.5] 05/07/2009 Hypogonadism male [E29.1] 04/25/2010 05/22/2016 Other chronic pain [G89.29] 11/12/2011 Onychomycosis due to dermatophyte [B35.1] 02/08/2013 04/24/2016 Sprain of rhomboid [S23.8XXA] 06/12/2015 05/22/2016 Cervical myofascial strain [S16.1XXA] 06/12/2015 05/22/2016 Shoulder strain [S46.919A] 06/12/2015 04/17/2017 Strain of right shoulder [S46.911A] 08/10/2015 05/22/2016 Cervical strain [S16.1XXA] 08/10/2015 05/22/2016 Situational depression [F43.21] 09/17/2015 05/22/2016 Reactive depression [F32.9] 10/05/2015 04/24/2016 Chronic right-sided low back pain with right-si*10/25/2015 05/22/2016 Heel pain, bilateral [M79.671, M79.672] 10/25/2015 05/22/2016 Chronic pain [G89.29] 11/09/2015 05/22/2016 Recurrent major depression in partial remission*04/24/2016 Umbilical hernia without obstruction and withou*06/05/2016 06/11/2016 Strain of other muscles, fascia and tendons at *11/10/2016 04/17/2017 Sprain of other specified parts of right should*11/10/2016 04/17/2017 Other cervical disc degeneration, unspecified c*04/29/2017 Bursitis of both shoulders [M75.51, M75.52] 01/04/2020 Other forms of angina pectoris (HCC) [I20.89] 01/06/2020 S/P left rotator cuff repair [Z98.890] 04/16/2020 Partial nontraumatic tear of left rotator cuff *04/16/2020 Hypothyroidism, acquired [E03.9] 05/28/2021 10/16/2021 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] 06/07/2021 Osteoarthritis of both shoulders [M19.011, M19.*08/05/2021 Cervicalgia [M54.2] 08/05/2021 Rotator cuff impingement syndrome [M75.40] 08/05/2021 Rotator cuff syndrome [M75.100] 09/09/2021 Obesity, Class II, BMI 35-39.9 [E66.9] 09/09/2021 Subclinical hypothyroidism [E03.8] 10/16/2021 Acute pulmonary embolism without acute cor pulm*11/04/2021 Constipation due to opioid therapy [K59.03, T40*11/06/2021 High risk medications (not anticoagulants) long*12/20/2021 Cavernous malformation [Q28.3] 03/28/2022 Mild cognitive impairment with memory loss [G31*03/28/2022 Obesity, Class I, BMI 30-34.9 [E66.9] 06/30/2022 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] 01/16/2020 Osteoarthritis of shoulder [M19.019] 04/15/2021 COVID-19 [U07.1] 10/22/2021 Dehydration [E86.0] 11/10/2022 detention (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 of opiate analgesic [Z7*12/16/2016 Superior glenoid labrum lesion of left shoulder*01/16/2020 Tear of supraspinatus tendon [M75.100] 01/16/2020 Myofascial pain syndrome [M79.18] 02/11/2023 Bipolar 2 disorder (HCC) [F31.81] 03/03/2023 En (more content not included)... [facility] 02-27-2023 [facility] Telephone (PAIBEBO) -- GERALD STALEY ([id number]) 1960 [place] Date Time Provider Department 02/27/23 ETO KAMINSKI During your visit today, we recorded the following information about you: Dennise Breaux MA 02/27/2023 1:20 PM Signed Items addressed in this encounter: Items addressed in this encounter: Health Maintenance Review Update chart Able to close encounter. Dennise Breaux MA February 27, 2023 1:20 PM 1:20 PM Able to close encounter. Dennise Breaux MA February 27, 2023 1:19 PM 1:19 PM Allergies As of Date: 02/27/2023 Noted Allergy Reaction BAKARI INHIBITORS 05/22/2016 3 - Cough DARVOCET A500 (PROPOXYPHENE N-BAKARI*04/24/2016 8 - GI Upset Date Reviewed: 02/11/2023 Reviewed by: Teo Kaminski APRN.WAREHOUSE DISTRIBUTION MANAGER - Fully Assessed Reason for Visit: Other [1320] Cmt: Virtual Visit Pre Check In Prescriptions as of 02/27/2023 - methocarbamol (ROBAXIN-750) 750 mg tablet Take 1 tablet by mouth three times a day as needed. - morphine SR (MS CONTIN) 15 mg 12 hr tablet Take 1 tablet by mouth once daily as needed for pain for up to 30 days. for Pain Do not start before February 02, 2023. - oxyCODONE (ROXICODONE) 15 mg immediate release tablet Take 1 tablet by mouth every 8 hours as needed for pain for up to 30 days. Do not start before February 02, 2023. - losartan (COZAAR) 100 mg tablet Take 1 tablet by mouth once daily. - triamterene-hydroCHLOROthi azide (MAXZIDE-25MG) 37.5-25 mg per tablet Take 1 tablet by mouth once daily. - omeprazole (PRILOSEC) 20 mg capsule TAKE 1 CAPSULE BY MOUTH 30 MINUTES BEFORE BREAKFAST - diclofenac (VOLTAREN) 1 % topical gel Apply 4 g to affected area four times daily as needed (for pain). As Directed. - naloxone 4 mg/actuation nasal spray (NARCAN) Facility-Administered Medications as of 02/27/2023 - lidocaine (PF) 10 mg/mL (1 %) 1-2 mg injection (XYLOCAINE) - lactated ringers iv infusion Problem List As Of Date 02/27/2023 Noted Resolved SPRAIN SHOULDER/ARM NOS [[id number]] 06/22/2008 09/25/2008 Rotator cuff (capsule) sprain [S43.429A] 09/25/2008 05/22/2016 Primary hypertension [I10] 05/07/2009 Hyperlipidemia [E78.5] 05/07/2009 Hypogonadism male [E29.1] 04/25/2010 05/22/2016 Other chronic pain [G89.29] 11/12/2011 Onychomycosis due to dermatophyte [B35.1] 02/08/2013 04/24/2016 Sprain of rhomboid [S23.8XXA] 06/12/2015 05/22/2016 Cervical myofascial strain [S16.1XXA] 06/12/2015 05/22/2016 Shoulder strain [S46.919A] 06/12/2015 04/17/2017 Strain of right shoulder [S46.911A] 08/10/2015 05/22/2016 Cervical strain [S16.1XXA] 08/10/2015 05/22/2016 Situational depression [F43.21] 09/17/2015 05/22/2016 Reactive depression [F32.9] 10/05/2015 04/24/2016 Chronic right-sided low back pain with right-si*10/25/2015 05/22/2016 Heel pain, bilateral [M79.671, M79.672] 10/25/2015 05/22/2016 Chronic pain [G89.29] 11/09/2015 05/22/2016 Recurrent major depression in partial remission*04/24/2016 Umbilical hernia without obstruction and withou*06/05/2016 06/11/2016 Strain of other muscles, fascia and tendons at *11/10/2016 04/17/2017 Sprain of other specified parts of right should*11/10/2016 04/17/2017 Other cervical disc degeneration, unspecified c*04/29/2017 Bursitis of both shoulders [M75.51, M75.52] 01/04/2020 Other forms of angina pectoris (HCC) [I20.89] 01/06/2020 S/P left rotator cuff repair [Z98.890] 04/16/2020 Partial nontraumatic tear of left rotator cuff *04/16/2020 Hypothyroidism, acquired [E03.9] 05/28/2021 10/16/2021 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] 06/07/2021 Osteoarthritis of both shoulders [M19.011, M19.*08/05/2021 Cervicalgia [M54.2] 08/05/2021 Rotator cuff impingement syndrome [M75.40] 08/05/2021 Rotator cuff syndrome [M75.100] 09/09/2021 Obesity, Class II, BMI 35-39.9 [E66.9] 09/09/2021 Subclinical hypothyroidism [E03.8] 10/16/2021 Acute pulmonary embolism without acute cor pulm*11/04/2021 Constipation due to opioid therapy [K59.03, T40*11/06/2021 High risk medications (not anticoagulants) long*12/20/2021 Cavernous malformation [Q28.3] 03/28/2022 Mild cognitive impairment with memory loss [G31*03/28/2022 Obesity, Class I, BMI 30-34.9 [E66.9] 06/30/2022 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] 01/16/2020 Osteoarthritis of shoulder [M19.019] 04/15/2021 COVID-19 [U07.1] 10/22/2021 Dehydration [E86.0] 11/10/2022 detention (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 of opiate analgesic [Z7*12/16/2016 Superior glenoid labrum lesion of left shoulder*01/16/2020 Tear of supraspinatus tendon [M75.100] 01/16/2020 Myofascial pain syndrome [M79.18] 02/11/2023 Encounter Status:Closed by DENNISE BREAUX on 02/27/23 [facility] 02[facility]11[facility]2023 [facility] -- GERALD STALEY ([id number]) 1960 [place] Date Time Provider Department 02/11/23 TEO KAMINSKI During your visit today, we recorded the following information about you: Dennise Breaux MA 02/11/2023 5:38 AM Signed Items addressed in this encounter: Virtual Visit Pre Check In Able to close encounter.Items addressed in this encounter: Health Maintenance Review Able to close encounter. Dennise Breaux MA February 11, 2023 5:34 AM 5:34 AM Dennise Breaux MA February 11, 2023 5:34 AM 5:34 AM Allergies As of Date: 02/11/2023 Noted Allergy Reaction BAKARI INHIBITORS 05/22/2016 3 - Cough DARVOCET A500 (PROPOXYPHENE N-BAKARI*04/24/2016 8 - GI Upset Date Reviewed: 12/03/2022 Reviewed by: Adam Sutton LPN - Fully Assessed Reason for Visit: Other [1320] Cmt: Virtual Visit Pre Check In Prescriptions as of 02/11/2023 - morphine SR (MS CONTIN) 15 mg 12 hr tablet Take 1 tablet by mouth once daily as needed for pain for up to 30 days. for Pain Do not start before February 02, 2023. - oxyCODONE (ROXICODONE) 15 mg immediate release tablet Take 1 tablet by mouth every 8 hours as needed for pain for up to 30 days. Do not start before February 02, 2023. - methocarbamol (ROBAXIN-750) 750 mg tablet Take 1 tablet by mouth three times a day as needed. - losartan (COZAAR) 100 mg tablet Take 1 tablet by mouth once daily. - triamterene-hydroCHLOROthi azide (MAXZIDE-25MG) 37.5-25 mg per tablet Take 1 tablet by mouth once daily. - omeprazole (PRILOSEC) 20 mg capsule TAKE 1 CAPSULE BY MOUTH 30 MINUTES BEFORE BREAKFAST - diclofenac (VOLTAREN) 1 % topical gel Apply 4 g to affected area four times daily as needed (for pain). As Directed. - naloxone 4 mg/actuation nasal spray (NARCAN) Facility-Administered Medications as of 02/11/2023 - lidocaine (PF) 10 mg/mL (1 %) 1-2 mg injection (XYLOCAINE) - lactated ringers iv infusion Problem List As Of Date 02/11/2023 Noted Resolved SPRAIN SHOULDER/ARM NOS [[id number]] 06/22/2008 09/25/2008 Rotator cuff (capsule) sprain [S43.429A] 09/25/2008 05/22/2016 Primary hypertension [I10] 05/07/2009 Hyperlipidemia [E78.5] 05/07/2009 Hypogonadism male [E29.1] 04/25/2010 05/22/2016 Chronic pain syndrome [G89.4] 11/12/2011 Onychomycosis due to dermatophyte [B35.1] 02/08/2013 04/24/2016 Sprain of rhomboid [S23.8XXA] 06/12/2015 05/22/2016 Cervical myofascial strain [S16.1XXA] 06/12/2015 05/22/2016 Shoulder strain [S46.919A] 06/12/2015 04/17/2017 Strain of right shoulder [S46.911A] 08/10/2015 05/22/2016 Cervical strain [S16.1XXA] 08/10/2015 05/22/2016 Situational depression [F43.21] 09/17/2015 05/22/2016 Reactive depression [F32.9] 10/05/2015 04/24/2016 Chronic right-sided low back pain with right-si*10/25/2015 05/22/2016 Heel pain, bilateral [M79.671, M79.672] 10/25/2015 05/22/2016 Chronic pain [G89.29] 11/09/2015 05/22/2016 Recurrent major depression in partial remission*04/24/2016 Umbilical hernia without obstruction and withou*06/05/2016 06/11/2016 Strain of other muscles, fascia and tendons at *11/10/2016 04/17/2017 Sprain of other specified parts of right should*11/10/2016 04/17/2017 Other cervical disc degeneration, unspecified c*04/29/2017 Bursitis of both shoulders [M75.51, M75.52] 01/04/2020 Other forms of angina pectoris (HCC) [I20.89] 01/06/2020 S/P left rotator cuff repair [Z98.890] 04/16/2020 Partial nontraumatic tear of left rotator cuff *04/16/2020 Hypothyroidism, acquired [E03.9] 05/28/2021 10/16/2021 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] 06/07/2021 Osteoarthritis of both shoulders [M19.011, M19.*08/05/2021 Cervicalgia [M54.2] 08/05/2021 Rotator cuff impingement syndrome [M75.40] 08/05/2021 Rotator cuff syndrome [M75.100] 09/09/2021 Obesity, Class II, BMI 35-39.9 [E66.9] 09/09/2021 Subclinical hypothyroidism [E03.8] 10/16/2021 Acute pulmonary embolism without acute cor pulm*11/04/2021 Constipation due to opioid therapy [K59.03, T40*11/06/2021 High risk medications (not anticoagulants) long*12/20/2021 Cavernous malformation [Q28.3] 03/28/2022 Mild cognitive impairment with memory loss [G31*03/28/2022 Obesity, Class I, BMI 30-34.9 [E66.9] 06/30/2022 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] 01/16/2020 Osteoarthritis of shoulder [M19.019] 04/15/2021 COVID-19 [U07.1] 10/22/2021 Dehydration [E86.0] 11/10/2022 Encounter for long-term methadone use [Z79.891] 12/16/2016 Superior glenoid labrum lesion of left shoulder*01/16/2020 Tear of supraspinatus tendon [M75.100] 01/16/2020 Encounter Status:Closed by DENNISE BREAUX on 02/11/23 [facility] GERALD STALEY ([id number]) 1960 Date Time Provider Department 02/11/23 TEO KAMINSKI During your visit today, we recorded the following information about you: Dennise Breaux MA 02/11/2023 7:35 AM Signed Items addressed in this encounter: MyChart Encounter Able to close encounter. Dennise Breaux MA February 11, 2023 7:20 AM 7:20 AM Allergies As of Date: 02/11/2023 Noted Allergy Reaction BAKARI INHIBITORS 05/22/2016 3 - Cough DARVOCET A500 (PROPOXYPHENE N-BAKARI*04/24/2016 8 - GI Upset Date Reviewed: 02/11/2023 Reviewed by: Teo Kaminski APRN.WAREHOUSE DISTRIBUTION MANAGER - Fully Assessed Reason for Visit: Other [1320] Cmt: Follow up appt Prescriptions as of 02/11/2023 - methocarbamol (ROBAXIN-750) 750 mg tablet Take 1 tablet by mouth three times a day as needed. - morphine SR (MS CONTIN) 15 mg 12 hr tablet Take 1 tablet by mouth once daily as needed for pain for up to 30 days. for Pain Do not start before February 02, 2023. - oxyCODONE (ROXICODONE) 15 mg immediate release tablet Take 1 tablet by mouth every 8 hours as needed for pain for up to 30 days. Do not start before February 02, 2023. - losartan (COZAAR) 100 mg tablet Take 1 tablet by mouth once daily. - triamterene-hydroCHLOROthi azide (MAXZIDE-25MG) 37.5-25 mg per tablet Take 1 tablet by mouth once daily. - omeprazole (PRILOSEC) 20 mg capsule TAKE 1 CAPSULE BY MOUTH 30 MINUTES BEFORE BREAKFAST - diclofenac (VOLTAREN) 1 % topical gel Apply 4 g to affected area four times daily as needed (for pain). As Directed. - naloxone 4 mg/actuation nasal spray (NARCAN) Facility-Administered Medications as of 02/11/2023 - lidocaine (PF) 10 mg/mL (1 %) 1-2 mg injection (XYLOCAINE) - lactated ringers iv infusion Problem List As Of Date 02/11/2023 Noted Resolved SPRAIN SHOULDER/ARM NOS [[id number]] 06/22/2008 09/25/2008 Rotator cuff (capsule) sprain [S43.429A] 09/25/2008 05/22/2016 Primary hypertension [I10] 05/07/2009 Hyperlipidemia [E78.5] 05/07/2009 Hypogonadism male [E29.1] 04/25/2010 05/22/2016 Other chronic pain [G89.29] 11/12/2011 Onychomycosis due to dermatophyte [B35.1] 02/08/2013 04/24/2016 Sprain of rhomboid [S23.8XXA] 06/12/2015 05/22/2016 Cervical myofascial strain [S16.1XXA] 06/12/2015 05/22/2016 Shoulder strain [S46.919A] 06/12/2015 04/17/2017 Strain of right shoulder [S46.911A] 08/10/2015 05/22/2016 Cervical strain [S16.1XXA] 08/10/2015 05/22/2016 Situational depression [F43.21] 09/17/2015 05/22/2016 Reactive depression [F32.9] 10/05/2015 04/24/2016 Chronic right-sided low back pain with right-si*10/25/2015 05/22/2016 Heel pain, bilateral [M79.671, M79.672] 10/25/2015 05/22/2016 Chronic pain [G89.29] 11/09/2015 05/22/2016 Recurrent major depression in partial remission*04/24/2016 Umbilical hernia without obstruction and withou*06/05/2016 06/11/2016 Strain of other muscles, fascia and tendons at *11/10/2016 04/17/2017 Sprain of other specified parts of right should*11/10/2016 04/17/2017 Other cervical disc degeneration, unspecified c*04/29/2017 Bursitis of both shoulders [M75.51, M75.52] 01/04/2020 Other forms of angina pectoris (HCC) [I20.89] 01/06/2020 S/P left rotator cuff repair [Z98.890] 04/16/2020 Partial nontraumatic tear of left rotator cuff *04/16/2020 Hypothyroidism, acquired [E03.9] 05/28/2021 10/16/2021 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] 06/07/2021 Osteoarthritis of both shoulders [M19.011, M19.*08/05/2021 Cervicalgia [M54.2] 08/05/2021 Rotator cuff impingement syndrome [M75.40] 08/05/2021 Rotator cuff syndrome [M75.100] 09/09/2021 Obesity, Class II, BMI 35-39.9 [E66.9] 09/09/2021 Subclinical hypothyroidism [E03.8] 10/16/2021 Acute pulmonary embolism without acute cor pulm*11/04/2021 Constipation due to opioid therapy [K59.03, T40*11/06/2021 High risk medications (not anticoagulants) long*12/20/2021 Cavernous malformation [Q28.3] 03/28/2022 Mild cognitive impairment with memory loss [G31*03/28/2022 Obesity, Class I, BMI 30-34.9 [E66.9] 06/30/2022 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] 01/16/2020 Osteoarthritis of shoulder [M19.019] 04/15/2021 COVID-19 [U07.1] 10/22/2021 Dehydration [E86.0] 11/10/2022 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*12/16/2016 Superior glenoid labrum lesion of left shoulder*01/16/2020 Tear of supraspinatus tendon [M75.100] 01/16/2020 Myofascial pain syndrome [M79.18] 02/11/2023 Encounter Status:Closed by DENNISE BREAUX on 02/11/23 [facility] CBC W Auto Differential pane l (Bld)on 12-03-2022 Basophils (Bld) [#/Vol] 0.05 10*3/uL <0.11 k/uL [facility] Basophils/100 WBC (Bld) 0.6 % [facility] Differential cell count method Nom (Bld) Auto [facility] Eosinophils (Bld) [#/Vol] 0.11 10*3/uL <0.46 k/uL [facility] Eosinophils/100 WBC (Bld) 1.2 % [facility] Erythrocyte distribution width (RBC) [Ratio] 13.2 % 11.5 - 15.0 % [facility] Hematocrit (Bld) [Volume fraction] 48.0 % 39.0 - 51.0 % [facility] Hemoglobin (Bld) [Mass/Vol] 15.8 g/dL 13.0 - 17.0 g/dL [facility] Immature granulocytes (Bld) [#/Vol] 0.03 10*3/uL <0.10 k/uL [facility] Immature granulocytes/100 WBC (Bld) 0.3 % [facility] Lymphocytes (Bld) [#/Vol] 2.64 10*3/uL 1.00 - 4.00 k/uL [facility] Lymphocytes/100 WBC (Bld) 30.0 % [facility] MCH (RBC) [Entitic mass] 28.7 pg 26.0 - 34.0 pg [facility] MCHC (RBC) [Mass/Vol] 32.9 g/dL 30.5 - 36.0 g/dL [facility] MCV (RBC) [Entitic vol] 87.3 fL 80.0 - 100.0 fL [facility] Monocytes (Bld) [#/Vol] 0.76 10*3/uL <0.87 k/uL [facility] Monocytes/100 WBC (Bld) 8.6 % [facility] Neutrophils (Bld) [#/Vol] 5.22 10*3/uL 1.45 - 7.50 k/uL [facility] Neutrophils/100 WBC (Bld) 59.3 % [facility] Nucleated RBC (Bld) [#/Vol] <0.01 k/uL [facility] Nucleated RBC/100 WBC (Bld) [Ratio] 0.0 /100 WBC [facility] Platelet mean volume (Bld) [Entitic vol] 9.6 fL 9.0 - 12.7 fL [facility] Platelets (Bld) [#/Vol] 234 10*3/uL 150 - 400 k/uL [facility] RBC (Bld) [#/Vol] 5.50 10*6/uL 4.20 - 6.0 0 m/uL [facility] WBC (Bld) [#/Vol] 8.81 10*3/uL 3.70 - 11.00 k/uL [facility] Comprehensive metabolic 2000 panelon 12-03-2022 Albumin [Mass/Vol] 4.4 g/dL 3.9 - 4.9 g/dL [facility] ALP [Catalytic activity/Vol] 76 U/L 38 - 113 U/L [facility] ALT [Catalytic activity/Vol] 19 U/L 10 - 54 U/L [facility] Anion gap [Moles/Vol] 10 mmol/L 9 - 18 mmol/L [facility] AST [Catalytic activity/Vol] 18 U/L 14 - 40 U/L [facility] Bilirubin [Mass/Vol] 0.6 mg/dL 0.2 - 1 .3 mg/dL [facility] Calcium [Mass/Vol] 9.4 mg/dL 8.5 - 10. 2 mg/dL [facility] Chloride [Moles/Vol] 105 mmol/L 97 - 10 5 mmol/L [facility] CO2 [Moles/Vol] 27 mmol/L 22 - 30 mmol/L [facility] Creatinine [Mass/Vol] 0.89 mg/dL 0.73 - 1.22 mg/dL [facility] Estimated Glomerular Filtration Rate 97 mL/min/1.73m >=60 mL/min/1.73 m [facility] Glucose [Mass/Vol] 82 mg/dL 74 - 99 mg/dL [facility] Potassium [Moles/Vol] 4.3 mmol/L 3.7 - 5.1 mmol/L [facility] Protein [Mass/Vol] 6.3 g/dL 6.3 - 8.0 g/dL [facility] Sodium [Moles/Vol] 142 mmol/L 136 - 144 mmol/L [facility] Urea nitrogen [Mass/Vol] 9 mg/dL 9 - 24 mg/dL [facility] LIPID PANEL, NONFASTINGon Cholesterol [Mass/Vol] 190 mg/dL <200 mg/dL [facility] HDL Cholesterol, Nonfasting 40 mg/dL >39 mg/dL [facility] LDL Cholesterol, Nonfasting 108 mg/dL High <100 mg/dL [facility] LDL/HDL Ratio, Nonfasting 2.70 mg/dL High <2.54 mg/dL [facility] Non HDL Cholesterol, Nonfasting 150 mg/dL High <130 mg/dL [facility] Total Chol/HDL Ratio, Nonfasting 4.75 mg/dL <5.10 mg/dL [facility] Triglycerides, Nonfasting 209 mg/dL High <150 mg/dL [facility] VLDL Cholesterol, Nonfasting 42 mg/dL High <30 mg/dL [facility] T4 FREE/FREE THYROXon 2022 Free T4 [Mass/Vol] 0.9 ng/dL 0.9 - 1.7 ng/dL [facility] TSH BLDon 12-03-2022 TSH Qn 3.190 m[IU]/L 0.270 - 4.200 mIU/L [facility] SURGICAL PATHOLOGYOrdered By : Carrington Irizarry on 06-11-2022 Case Report Surgical Pathology R eport Case: [id number] Authorizing Provider: Glen Brown MD Collected: 06/09/2022 11:40 AM Ordering Location: Ambulatory Surgery Received: 06/09/2022 11:20 PM Pathologist: Carrington Irizarry MD Specimen: ASCENDING COLON POLYP [facility] Work Phone: FINAL DIAGNOSIS j2cdwOXsENMupOTgNMSg NVxhbn AmSQBniOZyL5JynnydVNuoJR1x SP9svApxjUXdjGJaOLAxEfObr4 bhv168yWCrp7sfMXQFxtdzdVa4 eBzmZ15so8D8PmmzN3huMXNfPG pgBMLxHCciwGQlYYb3UXZnvJLl piWfLzFeKEQwhUGfcWZ1ILQuWP 5qdhqrZNxqEAxvTYKvhdT9OAQp iUJqZ6PsUESpJM7lbalkOLO9CM vsQSCdPEK1GrSrXOXqt7Urgvm1 MjBccGFyZFxwbGFpblxmczIwIE BrUDNIh5uzihhtIUAbHV3ojV6t FLTzc5h7zLhhCcjndBO8KafowT 9xQFMhVNZhEQC6YuCkPTOsWIGh ga3cVN7vKOYpsuzuQbVkmDNnmC == [facility] Work Phone: Gross Description g6fucCViIQXqkSDMWUQo MDRcYW 7mwPungRj1yEfyDSZspkB2iEZt KKmlb8knYAK2z4puutZRRfdqFE HrKKimLSSztjmcZkU6RMehFZXj mudtCVp5WXafPSNusWO1BPKnwO CdR3JhSUVjYM6blhb5QAU0SFqp OUItMpF6XZKdRkLtBgnkGMl0HU PuenF9Qqx0LJYqFDUwjAJud6G3 SVwlkwbiDEJhyUBoE500AMgrk3 VjdGQgDQpccGFyZCANCntcKlxl oVtce4LnvTNpMCufYLTrMYZyFP ebfkviKDl8DVAwMCwicRZnZB4v aPggEhbqoUkea9ErjEUrGWdpIR RqFDAwTJqmFTMrYJ3PQmMnBKDj UNTaFtTeXwU6OGj7RPYVQtYaIe OwPgIrNiE5OQHlGXo6MMu6DMxB VwMfOXVbEujyYUC1HnT3FRj8Ky BcXHQgMiBcXGYgQXJpYWwgXFxm rRXlBZ2odPqlrVOtsfFIJyTSC9 VHGdVMIgorQ63JD34pCV8IDDHy vPEwRB4KKXYguZIQACK5PB9qSO NWZijpgTNzLJEmvEakWJzriP3c WU1LKIp0nxAvQKAeMtYrOrYtBE f9QSYokG4yVk7pdVCjfU3ubJDr q83dEPCtaq6ndo42fuWxo6s1eQ 4mRSXaQUfyPX57BX1nGYEia0E4 OSKhDVTjpTAwgdczDE6hLOzxIT 24XYtmLN51NXVePkHNxwEtxRRp xhJsmsMmfzCvCH03IqMLiAHmnJ ziVRQvXnEaFJVoG9Dkn81ruWPb el63CHXmHBJuMCZvcQCrkD8cti RjoiAenJYpS9WyVSNnosPjhC51 ADabsVVgbKTewRV7JPCafL2pv5 1bPKGgv4ZnmPWfPhOpdABuJC0E NKBwwdZGNanyu4VmFIK3PY5kzx C0vO1rWTGajmUbxn6uYJOhtYRG rIP5MEuucxBuD9uxellsVRJ4BY AwVPI6M2ziETDSduNxZXZEhWC3 RSqihvIfSC4VLKT2PNb8GQNjbs EQPxxdXJFlWAvGCHUuIN0pOD2d ZMLrLEX6VpXeTC6ydKOmZY6XWA StnQHIDGE6KX5uORr1VLikRAQz U0GvL7PtofTauRArQAQgtiHpp1 zoNMU1BADhvVUmoTMxPoIsStmb EZT9RDEdSWzpFP0QNKGtIBK1TP mptS90xZFbHK1MMXDeHEhfPPWj SECakhF8ILNufHYiMXL2NE6nhL lepSSzpsludbI8ZL6QpR== [facility] Work Phone: Performing Lab g9mjsLExFKCbmVKaZeBy MDAwXG Fnv1zlNDSguWBiDzZgPvPqLfEz UiuzqNHuRUZdVqDlx1zju672gT Ywh5boUOFoBdB4aSQhQCGkmBSd E158SZDjNUyav6tfe8FaWAZiwM Qiy7A0UPUGawomwFm9vJftO92s j5M0QpckW8scBXZrAQOuN1HzKD 0cYNIfFcs4OTB5OFR8OOUiTRUx F3IyJW9rXUMgeGZxEPf8v6dwgW riLLXbOJH5z7byYSxnrsPuYP2p ei6asVq5o7seylYhBKLkKXHmbK KFRMPmY2MkqGwnZl9fvEz1pYdq VcjiJRT2Djv7TU4yfy67yhj9yQ ayAXZztgseUvE9SFjyRNVpdccm FQc4QUahQCRwdTA9OMSwhJHdW0 XpQPsaWY9cuhe9OCH8ZBvsAKSz IzE9SRKvhZSrKRNhnVogYIvbe8 03TUR3IyEeTT7oM3Fom1J6jH8d pNQhIGJoeBNoGfQwQIPtrm6keL FvDHwuf8WtOLZ6rjN2cRLknQMh FKBjMQ63Irahf9DbKnlzp1FvO4 6raDN8TTfcv3iwNV5nPsV9lwWk RFkyh8jpeA9uWsU7GEqvHP8hBN 8wBHBebW4fuvoeTKNuHsVjnsvg HCCbpUropkMlTs8trWaiKJO7XK kcN1omkC7lGtR9HHpbN4pzcU2d WBs5RUvuwOM5RAOuyM2eQZ0xag ofi3xrVSpsLSrhGBCrzuE6huYg VNKnxECaP4OyrD6gGGOsLW6zvc sba9tiLDK9UBdxQOCtVJB4LnIl PKUig8Qevue7ZzBsq2GmwTIfEU cxA86ag375WCPszmDuJ9zsvLZx jwieaEObqohnZVgttdR3ZBNyFO BsYWluXGYxXGZzMjJcbGFuZzEw MzNcaGljaFxmMVxkYmNoXGYxXG glX5vhFyZaBhLhKzBQdLOuoq5v oLkaGKmooSTziXEsdCF9iD5vTN KblfGqjj9xPLFnqQVPbZL4EGhl jwJdH0lcpwpxYUD9RCMmYKJ0W2 xpZCBBdmUsIENsZXZlbGFuZCBP KEY2WVV0QCRiMNAHEVFqCTE3GJ Y3ZBCgZTWwhXBpSIEhpnpmALKa XHBsYWluXGYwXGZzMjRccGxhaW 7aScDeTvQjGaecNG0jOOHiR4zu kBIyZBLjNSOfI9qgIfTlnE3yoS xmMVxjZjJcZnMyMlxsdHJjaCBM NCTdwaC1d5V9ZDgunCPmkmtiHX udxpAoYJwoymaqQNVmWUncG3os PdHlTSNmwTleFUyvk4YsPBOpKV OjLnMoJUvcTHL7u3B3MUmvtHIh uaRQPrQAKK1hbYJwskixPR1ACa xwYXJ9 [facility] Work Phone: [facility] Work Phone: Flexible sigmoidoscopy study on 06-09-2022 [facility] Patient Name: Gerald Staley Procedure Date: 06/09/2022 11:21 AM Date of : 1960 Admit Type: Outpatient Age: 62 Room: [place] [id number] Gender: Male Note Status: Finalized Attending MD: Glen Brown MD Procedure: Colonoscopy Indications: High risk colon cancer surveillance: Personal history of adenoma less than 10 mm in size Providers: Glen Brown MD Patient Profile: Last Colonoscopy: within the past 3 years. Referring Physician: Gia Ventura (pa) (Referring MD) Medicines: Monitored Anesthesia Care Complications: No immediate complications. Requesting Provider: Procedure: Pre-Anesthesia Assessment: - Prior to the procedure, a History and Physical was performed, and patient medications and allergies were reviewed. The patient's tolerance of previous anesthesia was also reviewed. The risks and benefits of the procedure and the sedation options and risks were discussed with the patient. All questions were answered, and informed consent was obtained. Prior Anticoagulants: The patient has taken no anticoagulant or antiplatelet agents. ASA Grade Assessment: II - A patient with mild systemic disease. After reviewing the risks and benefits, the patient was deemed in satisfactory condition to undergo the procedure. After I obtained informed consent, the scope was passed under direct vision. Throughout the procedure, the patient's blood pressure, pulse, and oxygen saturations were monitored continuously. The Colonoscope was introduced through the anus and advanced to the cecum, identified by appendiceal orifice and ileocecal valve. I was present and participated during the entire procedure, including non-morrissey portions, and during the administration and monitoring of Moderate Sedation. The colonoscopy was performed without difficulty. The patient tolerated the procedure well. The quality of the bowel preparation was good. The ileocecal valve, appendiceal orifice, and rectum were photographed. Moderate Sedation: MAC anesthesia was administered by the anesthesia team. Findings: A 10 mm polyp was found in the distal ascending colon. The polyp was semi-pedunculated. The polyp was removed with a hot snare. Resection and retrieval were complete. Verification of patient identification for the specimen was done. Estimated blood loss was minimal. Multiple small and large-mouthed diverticula were found in the sigmoid colon and descending colon. External hemorrhoids were found during retroflexion. The hemorrhoids were small. Impression: - One 10 mm polyp in the distal ascending colon, removed with a hot snare. Resected and retrieved. - Diverticulosis in the sigmoid colon and in the descending colon. - External hemorrhoids. Recommendation: - Patient has a contact number available for emergencies. The signs and symptoms of potential delayed complications were discussed with the patient. Return to normal activities tomorrow. Written discharge instructions were provided to the patient. - High fiber diet. - Continue present medications. - Await pathology results. - Repeat colonoscopy in 3 years for surveillance. - Return to GI clinic PRN. - The patient is not currently taking anticoagulant or antiplatelet agents. Procedure Code(s): --- Professional --- 83655, Colonoscopy, flexible; with removal of tumor(s), polyp(s), or other lesion(s) by snare technique CPT copyright 2020 [employer]. All rights reserved. The codes documented in this report are (more content not included)... PROVATION [facility] Radiology Study observation (narrative) [facility] CNTHERAPYon 06-02-2022 CNTHERAPY OT/PT/Speech Visit (SPEMML) -- GERALD STALEY ([id number]) 1960 M Date Time Provider Department 06/02/22 11:30 AM KYLE VIRK Date Time Provider Department Center 06/02/2022 11:30 AM [id number] VIRK [facility] Reason for Visit: Speech Progress Note [3787] Speech Discharge [3488] Primary Visit Diagnosis:Memory loss [R41.3] Allergies As of Date: 06/02/2022 Noted Allergy Reaction BAKARI INHIBITORS 05/22/2016 3 - Cough DARVOCET A500 (PROPOXYPHENE N-BAKARI*04/24/2016 8 - GI Upset Date Reviewed: 06/02/2022 Reviewed by: Gia Ventura PA-C - Fully Assessed Prescriptions as of 07/21/2022 - amitriptyline (ELAVIL) 10 mg tablet Take 1 tablet by mouth daily at bedtime. - oxyCODONE (ROXICODONE) 15 mg immediate release tablet Take 1 tablet by mouth every 8 hours as needed for pain for up to 30 days. Do not start before July 07, 2022. - morphine SR (MS CONTIN) 15 mg 12 hr tablet Take 1 tablet by mouth once daily as needed for pain for up to 30 days. for Pain Do not start before July 07, 2022. - lidocaine-prilocaine (EMLA) 2.5-2.5 % cream APPLY TO THE AFFECTED AREA(S) THREE TIMES DAILY NEEDED FOR PAIN. - losartan (COZAAR) 100 mg tablet Take 1 tablet by mouth once daily. - triamterene-hydroCHLOROthi azide (MAXZIDE-25MG) 37.5-25 mg per tablet Take 1 tablet by mouth once daily. - naloxone 4 mg/actuation nasal spray (NARCAN) Facility-Administered Medications as of 07/21/2022 - lidocaine (PF) 10 mg/mL (1 %) 1-2 mg injection (XYLOCAINE) - lactated ringers iv infusion - perflutren lipid microspheres 1.3 mL in NaCl (PF) 0.9% 10 mL injection (DEFINITY) - sodium chloride 0.9 % (flush) 10 mL (BD POSIFLUSH) -- [facility] CNTHERAPYon 05-06-2022 CNTHERAPY OT/PT/Speech Visit (SPEMML) -- STALEYGERALD Winchester ([id number]) 1960 M Date Time Provider Department 05/06/22 1:30 PM KYLE VIRK Date Time Provider Department Center 05/06/2022 1:30 PM [id number] VIRK [facility] Reason for Visit: Speech Evaluation [5527] Visit Diagnosis:Memory loss [R41.3] Allergies As of Date: 05/06/2022 Noted Allergy Reaction BAKARI INHIBITORS 05/22/2016 3 - Cough DARVOCET A500 (PROPOXYPHENE N-BAKARI*04/24/2016 8 - GI Upset Date Reviewed: 04/28/2022 Reviewed by: Bill Foley APRN.ELEMENTARY EDUCATION TUTOR - Fully Assessed Prescriptions as of 07/21/2022 - amitriptyline (ELAVIL) 10 mg tablet Take 1 tablet by mouth daily at bedtime. - oxyCODONE (ROXICODONE) 15 mg immediate release tablet Take 1 tablet by mouth every 8 hours as needed for pain for up to 30 days. Do not start before July 07, 2022. - morphine SR (MS CONTIN) 15 mg 12 hr tablet Take 1 tablet by mouth once daily as needed for pain for up to 30 days. for Pain Do not start before July 07, 2022. - lidocaine-prilocaine (EMLA) 2.5-2.5 % cream APPLY TO THE AFFECTED AREA(S) THREE TIMES DAILY NEEDED FOR PAIN. - losartan (COZAAR) 100 mg tablet Take 1 tablet by mouth once daily. - triamterene-hydroCHLOROthi azide (MAXZIDE-25MG) 37.5-25 mg per tablet Take 1 tablet by mouth once daily. - naloxone 4 mg/actuation nasal spray (NARCAN) Facility-Administered Medications as of 07/21/2022 - lidocaine (PF) 10 mg/mL (1 %) 1-2 mg injection (XYLOCAINE) - lactated ringers iv infusion - perflutren lipid microspheres 1.3 mL in NaCl (PF) 0.9% 10 mL injection (DEFINITY) - sodium chloride 0.9 % (flush) 10 mL (BD POSIFLUSH) -- [facility] MRI BRAIN WO IVCONon 023 [facility] No Panel Informationon 01-20 Radiology Result ACTIONABLE Abnormal [facility] No Panel Informationon 01-13 [facility] SPIROMETRY - BASELINE AND PO ST DILATORon 01-13-2022 DLCO (ml/min/mmHg) 22.77 ml/min/mmHg [facility] DLCO/VA (ml/min/mmHg/L) 3.78 ml/min/mmHg/L [facility] ERV BOX (L) 0.03 L [facility] MWJ66-64% POST (L/S) 1.93 L/S [facility] QLQ74-79% PRE (L/S) 1.85 L/S [facility] FEV1 PRE (L) 2.98 L [facility] FEV1/FVC POST (%) 74 % [facility] FEV1/FVC PRE (%) 69 % [facility] FEV1_POST (L) 3.04 L [facility] FRC Box (L) 2.10 L [facility] FVC POST (L) 4.14 L [facility] FVC PRE (L) 4.30 L [facility] IC BOX (L) 4.29 L [facility] PEF POST (L/S) 7.08 L/S [facility] PEF PRE (L/S) 7.33 L/S [facility] RV Box (L) 2.03 L [facility] RV/TLC Box (%) 32 % [facility] TLC Box (L) 6.25 L [facility] VA (L) 6.03 L [facility] VC (L) BOX 4.32 L [facility] XR Chest PA and Lateralon IMPRESSION: No acute radiographic abnormality. Retail Greeter: HANNAH Transcribe Date/Time: Jan 06 2022 8:38A Dictated by : JOAQUIN JAMES MD This examination was interpreted and the report reviewed and electronically signed by: JOAQUIN JAMES MD on Jan 06 2022 8:40AM [facility] DIVISION OF RADIOLOGY * * *Final Report* * * DATE OF EXAM: Jan 04 2022 11:38AM WOX [id number] - XR CHEST 2V FRONTAL/LAT / PROCEDURE REASON: Acute cough * * * * Physician Interpretation * * * * EXAMINATION: CHEST RADIOGRAPH (2 VIEW FRONTAL & LATERAL) CLINICAL HISTORY: Acute cough MQ: XC2_6 EXAM DATE/TIME: 01/04/2022 11:38 AM COMPARISON: 10/22/2021 and 05/29/2020 RESULT: Lines, tubes, and devices: None. Lungs and pleura: No consolidation. No lung mass. No pleural effusion. No pneumothorax. Cardiomediastinal silhouette: Normal cardiomediastinal silhouette. Bones and soft tissues: Unremarkable. DIVISION OF RADIOLOGY Provider, [facility] - 01/06/2022 * * *Final Report* * * DATE OF EXAM: Jan 04 2022 11:38AM WOX [id number] - XR CHEST 2V FRONTAL/LAT / PROCEDURE REASON: Acute cough * * * * Physician Interpretation * * * * EXAMINATION: CHEST RADIOGRAPH (2 VIEW FRONTAL & LATERAL) CLINICAL HISTORY: Acute cough MQ: XC2_6 EXAM DATE/TIME: 01/04/2022 11:38 AM COMPARISON: 10/22/2021 and 05/29/2020 RESULT: Lines, tubes, and devices: None. Lungs and pleura: No consolidation. No lung mass. No pleural effusion. No pneumothorax. Cardiomediastinal silhouette: Normal cardiomediastinal silhouette. Bones and soft tissues: Unremarkable. IMPRESSION IMPRESSION: No acute radiographic abnormality. Retail Greeter: [facility] Transcribe Date/Time: Jan 06 2022 8:38A Dictated by : JOAQUIN JAMES MD This examination was interpreted and the report reviewed and electronically signed by: JOAQUIN JAMES MD on Jan 06 2022 8:40AM EST [facility] XR Chest PA and LateralOrder ed By: Cc Provider on 01-06-2022 [facility] XR Chest PA and Lateralon Radiology Study observation (narrative) [facility] Discharge [id number] Discharge Profile2 Discharge Orders: Anticipated Discharge Date: Anticipated Discharge [id number] Problem List: Admitting Dx: Pleuritis: Catalog Name: Pleurisy Additional Dx: Chronic pain syndrome: Catalog Name: Chronic pain syndrome Hospital Providers: Provider RoleProvider Name AttendingChago Hernández DNAR: Code Status at Discharge: Full Code Activity: activity as tolerated. Diet: Dietlow fat, low sodium Additional Orders: Additional Instructions NEW: 1. Ketorolac 10 mg 1 p.o. 4 times daily as needed pain #20 with no refills Keep pain management appointment as scheduled 11/06/2021 Hospital Course (Home Care/Gold Form): Hospital Course: Hospital Course: include significant abnormal lab values Please refer to history and physical details [...] He went to the emergency room at [place] and diagnosed with PE and transferred to [place] where he was admitted for 5 days. [...] and follow-up with his PCP as well. Provider FINAL REVIEW of Orders: Final Review: Final Review of Medication Reconciliation and Orders Completedby Physician Reviewing ProviderChago Hernández DO at 02-Nov-2021 09:08:21 Appointments: Follow-Up Appointment 01: Physician/Dept/ServiceDr. Cary 7-10 days Scheduled Date/[id number] 13:00 Follow-Up Appointment 02: Physician[facility]Dept[facility] Scheduled Date/[id number] 13:30 Electronic Signatures: Lauren Bui (MELANIA) (Signed 02-Nov-2021 09:12) Authored: Discharge Orders, Appointments Chago Hernández () (Signed 02-Nov-2021 09:08) Authored: Discharge Orders, Hospital Course (Home Care/Gold Form), Provider FINAL REVIEW of Orders, Appointments, Gold Form - Mix House Operator Summary Last Updated: 02-Nov-2021 09:12 by Lauren Bui (MELANIA) [facility] Order Reconciliationon 11-02 Order Reconciliation Page 1 Discharge Reconciliation Document Reconciliation Type: Discharge requested on behalf of Chago Hernández (Physician) done by Chago Hernández () Discharge - Reconciliation: 02-Nov-2021 08:56 by: Chago Hernández () Home Medications EnteredHOME MEDICATIONS AT DISCHARGE DateReconciliation Comment/ Additional Information Albuterol (Eqv-ProAir HFA) 90 mcg/inh inhalation aerosol 2 puff(s) inhaled every 6 hours, As Needed 31-Oct-2021 22:18 Albuterol (Eqv-ProAir HFA) 90 mcg/inh inhalation aerosol 2 puff(s) inhaled every 6 hours, As Needed 31-Oct-2021 22:18 Albuterol (Eqv-ProAir HFA) 90 mcg/inh inhalation aerosol is continued as Albuterol (Eqv-ProAir HFA) 90 mcg/inh inhalation aerosol Eliquis 5 mg oral tablet 1 tab(s) orally 2 times a day 31-Oct-2021 22:19 Eliquis 5 mg oral tablet 1 tab(s) orally 2 times a day 15 22:19 Eliquis 5 mg oral tablet is continued as Eliquis 5 mg oral tablet gabapentin 300 mg capsule 1 cap(s) orally 3 times a day 01-Nov-2021 07:09 gabapentin 300 mg capsule 1 cap(s) orally 3 times a day 16 07:09 gabapentin 300 mg capsule is continued as gabapentin 300 mg capsule lamoTRIgine 150 mg oral tablet 1 tab(s) orally once a day (at bedtime) 01-Nov-2021 17:17 lamoTRIgine 150 mg oral tablet 1 tab(s) orally once a day (at bedtime) 01-Nov-2021 17:17 lamoTRIgine 150 mg oral tablet is continued as lamoTRIgine 150 mg oral tablet levothyroxine 25 mcg tablet 1 tab(s) orally once a day 01-Nov-2021 07:10 levothyroxine 25 mcg tablet 1 tab(s) orally once a day 01-Nov-2021 07:10 levothyroxine 25 mcg tablet is continued as levothyroxine 25 mcg tablet losartan 100 mg oral tablet 1 tab(s) orally once a day 31-Oct-2021 22:19 losartan 100 mg oral tablet 1 tab(s) orally once a day 31-Oct-2021 22:19 losartan 100 mg oral tablet is continued as losartan 100 mg oral tablet morphine ER 15 mg tablet,extended release 1 tab(s) orally once a day 01-Nov-2021 07:10 morphine ER 15 mg tablet,extended release 1 tab(s) orally once a day 01-Nov-2021 07:10 morphine ER 15 mg tablet,extended release is continued as morphine ER 15 mg tablet,extended release oxyCODONE 15 mg oral tablet 1 tab(s) orally every 6 hours, As Needed 31-Oct-2021 22:19 oxyCODONE 15 mg oral tablet 1 tab(s) orally every 6 hours, As Needed 31-Oct-2021 22:19 oxyCODONE 15 mg oral tablet is continued as oxyCODONE 15 mg oral tablet SEROquel 50 mg oral tablet 1 tab(s) orally once a day (at bedtime) 01-Nov-2021 17:16 SEROquel 50 mg oral tablet 1 tab(s) orally once a day (at bedtime) 01-Nov-2021 17:16 SEROquel 50 mg oral tablet is continued as SEROquel 50 mg oral tablet triamterene 37.5 mg-hydrochlorothiazide 25 mg tablet 1 tab(s) orally once a day 01-Nov-2021 07:12 triamterene 37.5 mg-hydrochlorothiazide 25 mg tablet 1 tab(s) orally once a day 01-Nov-2021 07:12 triamterene 37.5 mg-hydrochlorothiazide 25 mg tablet is continued as triamterene 37.5 mg-hydrochlorothiazide 25 mg tablet Current OrdersDateHOME MEDICATIONS AT DISCHARGE DateReconciliation Comment/ Additional Information Acetaminophen Tablet (TYLENOL)DOSE = 650 mg Oral Every 4 Hours, PRN Pain - Mild (1-3) 01-Nov-2021 05:05 Acetaminophen is not required Acetaminophen Tablet (TYLENOL)DOSE = 650 mg Oral Every 4 Hours, PRN Temp Greater Than or Equal to 38.0 C 01-Nov-2021 05:05 Acetaminophen is not required Apixaban Tablet (ELIQUIS)DOSE = 5 mg Oral Every 12 Hours 01-Nov-2021 03:45 Apixaban is not required Gabapentin Capsule (NEURONTIN)DOSE = 600 mg Oral 3 Times a Day 01-Nov-2021 03:45 Gabapentin is not required Influenza Virus QUADRIVALENT (Inactive) ADULT Vaccine DOSE = 0.5 mL IntraMuscular OnceClinician Notes: :: Must be given prior to discharge. Order entered from Admission Screen. 01-Nov-2021 03:33 Influenza Virus QUADRIVALENT (Inactive) ADULT Vaccine is not required Ketorolac Injectable (TORADOL)DOSE = 30 mg IntraVenous Push Every 6 Hours 01-Nov-2021 04:53 Ketorolac Injectable is not required lamoTRIgine (LAMICTAL) TabletDOSE = 150 mg Oral At Bedtime 01-Nov-2021 18:53 lamoTRIgine (LAMICTAL) is not required Losartan Tablet (COZAAR)DOSE = 100 mg Oral Daily 01-Nov-2021 03:45 Losartan is not required Magnesium Hydroxide Oral Liquid CONCENTRATE (MILK OF MAGNESIA)DOSE = 10 mL Oral Every 24 Hours, PRN Constipation 01-Nov-2021 05:05 Magnesium Hydroxide Oral Liquid CONCENTRATE is not required Morphine Extended Release (MS Contin-Oramorph SR) Tablet, Extended ReleaseDOSE = 15 mg Oral ( every 1 day: 09:00 ) 01-Nov-2021 05:07 Morphine Extended Release (MS Contin-Oramorph SR) is not required Ondansetron Injectable (ZOFRAN)DOSE = 4 mg IntraVenous Push Every 4 Hours, PRN Nausea and/or Vomiting 01-Nov-2021 05:05 Ondansetron Injectable is not required oxyCODONE Immediate Release Tablet (OXYIR, ROXICODONE)DOSE = 15 mg Oral Every 8 Hours, PRN Pain - Severe (7-10) 01-Nov-2021 05:07 oxyCODONE Immediate Release is not required QUEti (more content not included)... Normal [facility] Admission Risk Screen - Adul ton 11-01-2021 Admission Risk Screen - Adult Allergies: Allergies: No Known Allergies: Patient Verification: New W ID Band Applied in my Departmentyes Patient Identity Verified Bypatient ID Band FULL Name, include Middle, spelling matches patient's ID used for verificationyes ID Band Matches Patient ID used for Verficationyes ID Band MRN Matches EMR MRNyes Visitor Restriction: Coronavirus Visitor Restriction: Reasonable restrictions to in-person visitors will be observed due to current coronavirus pandemic. 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 Moderate risk (25-44). High risk (>44).35 Peña InterventionsMODERATE INTERVENTIONS: *Low Interventions Plus: * falls risk band/sticker applied to patient, *yellow non-skid footwear, *instruct to call for assistance before getting out of bed, *bed/chair/bedside commode/toilet alarms, *sensory devices/ambulatory aides available and in reach, *medications reviewed for potential side effects and care planning. Family Violence Screen: Are you or have you been threatened or abused physically, emotionally, or sexually by anyoneno Do you feel UNSAFE going back to the place where you are livingno Clinical assessment: Are there any apparent signs of injuries/behaviors that could be related to abuse/neglectno Social Service Consult for abuse/neglect needed this visitno Functional Screen: Functional Screen: In the recent/past 2-4 weeks, patient or family have noticedno issues that require a speech/language consult at this time AM-PAC- Basic Mobility/Daily Activity: Patient baseline bedboundyes Learning Assessment (Patient): Patient is Able to be Assessed for Learningyes Factors Influencing Readiness to Learninterest in learning; motivation to learn Factors that Impact Ability to Learnnone Devices/Methods Used to Communicatenone Learning Preferencesskill demonstration Cultural Considerationsnone Developmental Considerationsnone Sikhism Considerationsreligious considerations Anastacio Orellana is pt savior Learning Assessment (Other Learner): Other learner availableno Depression Screen: During the past month, have you often been bothered by feeling down, depressed or hopelessno During the past month, have you often had little interest or pleasure in doing thingsno Have you had any thoughts of harming anyone elseno (1) [place] Suicide: Risk Screen Not Applicable/Able to Answerable to be screened In the Past Month: Have you wished you were or could go to sleep and not wake upno(1) In the Past Month: Have you had any actual thoughts of killing yourself no(1) Lifetime: Have you ever done, started to do, or prepared to do anything to end your lifeno [place] Suicide Risknegative Adult Nutrition Screen: Have you recently lost weight without tryingno Have you been eating poorly because of a decreased appetiteyes Malnutrition Screening Tool Score1 Malnutrition Screening Tool RiskMST = 0 or 1 Not at risk. Eating well with little or no weight loss Nutrition Consult needed this visitno Can Patient Participate in Room Serviceyes Patient requires Paper Dishes/Plastic Utensilsyes (sends order) Pain Screen: Pain Scalenumerical 0-10 Pain Scale Educationteaching provided Current Pain Level7 = Severe Acceptable Pain Level8 = Severe Expression of Pain (nonverbal)change in activity pattern, restless Chronic Painyes Chronic Back pain locationlumbar spine Chronic Upper Extremity pain locationshoulder, left, right Description of Pain (frequency/quality)aching Spiritual Screen: Are there any cultural, spiritual, yazidism practices/values/needs that are important for us to knowno CAGE: Is this an injured patient at a Trauma Center ([facility]/[place]/Aury/Stefanie Zamora/Kieran): no (2) Vaccinations: Vaccination - Influenza Vaccination Screen: Is it flu season (between and May 16)Yes Screening for identified contraindications to influenza vaccinationno contraindications identified Influenza vaccine indicatedyes Vaccination - Pneumonia Vaccination Screen: Patient has received a previous pneumonia vaccine:no/unknown... Immunocompetent persons with underlying chronic conditions or reside (more content not included)... Normal [facility] CBC AND DIFFERENTIALon 11-01 Basophils (Bld) [#/Vol] 0.10 10*3/uL Normal 0.00 - 0.10 [facility] Comment on above: Performed By: #### C BCDF #### [address] [address] Basophils/100 WBC (Bld) 0.9 % Normal 0.0 - 2.0 [facility] Comment on above: Performed By: #### C BCDF #### [address] [address] Eosinophils (Bld) [#/Vol] 0.10 10*3/uL Normal 0.00 - 0.70 [facility] Comment on above: Performed By: #### C BCDF #### [address] [address] Eosinophils/100 WBC (Bld) 0.9 % Normal 0.0 - 6.0 [facility] Comment on above: Performed By: #### C BCDF #### [address] [address] Erythrocyte distribution width (RBC) [Ratio] 14.0 % Normal 11.5 - 14.5 [facility] Comment on above: Performed By: #### C BCDF #### [address] [address] Hematocrit (Bld) [Volume fraction] 43.2 % Normal 41.0 - 52.0 [facility] Comment on above: Performed By: #### C BCDF #### [address] [address] Hemoglobin (Bld) [Mass/Vol] 14.6 g/dL Normal 13.5 - 17.5 [facility] Comment on above: Performed By: #### C BCDF #### [address] [address] Lymphocytes (Bld) [#/Vol] 1.80 10*3/uL Normal 1.20 - 4.80 [facility] Comment on above: Performed By: #### C BCDF #### [address] [address] Lymphocytes/100 WBC (Bld) 22.8 % Normal 13.0 - 44.0 [facility] Comment on above: Performed By: #### C BCDF #### [address] [address] MCHC (RBC) [Mass/Vol] 33.7 g/dL Normal 32.0 - 36.0 [facility] Comment on above: Performed By: #### C BCDF #### [address] [address] MCV (RBC) [Entitic vol] 89 fL Normal 80 - 100 [facility] Comment on above: Performed By: #### C BCDF #### [address] [address] Monocytes (Bld) [#/Vol] 0.90 10*3/uL Normal 0.10 - 1.00 [facility] Comment on above: Performed By: #### C BCDF #### [address] [address] Monocytes/100 WBC (Bld) 11.1 % Normal 2.0 - 10.0 [facility] Comment on above: Performed By: #### C BCDF #### [address] [address] Neutrophils (Bld) [#/Vol] 5.00 10*3/uL Normal 1.20 - 7.70 [facility] Comment on above: Result Comment: Perc ent differential counts (%) should be interpreted in the context of the absolute cell counts (cells/L). Performed By: #### C BCDF #### [address] [address] Neutrophils/100 WBC (Bld) 64.3 % Normal 40.0 - 80.0 [facility] Comment on above: Performed By: #### C BCDF #### [address] [address] NUCLEATED RBC 0.1 /100 WBC Normal [facility] Comment on above: Performed By: #### C BCDF #### [address] [address] Platelets (Bld) [#/Vol] 290 10*3/uL Normal 150 - 450 [facility] Comment on above: Performed By: #### C BCDF #### [address] [address] RBC 4.86 x10E12/L Normal 4.50 - 5.90 [facility] Comment on above: Performed By: #### C BCDF #### [address] [address] WBC (Bld) [#/Vol] 7.7 10*3/uL Normal 4.4 - 11.3 [facility] Comment on above: Performed By: #### C BCDF #### [address] [address] COMPREHENSIVE PANELon 2021 Albumin [Mass/Vol] 3.6 g/dL Normal 3.4 - 5.0 [facility] Comment on above: Performed By: #### C MP #### [address] [address] ALP [Catalytic activity/Vol] 80 U/L Normal 33 - 136 [facility] Comment on above: Performed By: #### C MP #### [address] [address] ALT [Catalytic activity/Vol] 37 U/L Normal 10 - 52 [facility] Comment on above: Result Comment: Katiana ents treated with Sulfasalazine may generate falsely decreased results for ALT. Performed By: #### C MP #### [address] [address] Anion gap [Moles/Vol] 11 mmol/L Normal 10 - 20 [facility] Comment on above: Performed By: #### C MP #### [address] [address] AST [Catalytic activity/Vol] 15 U/L Normal 9 - 39 [facility] Comment on above: Performed By: #### C MP #### [address] [address] Bilirubin [Mass/Vol] 0.8 mg/dL Normal 0.0 - 1.2 [facility] Comment on above: Performed By: #### C MP #### [address] [address] Calcium [Mass/Vol] 8.7 mg/dL Normal 8.6 - 10.3 [facility] Comment on above: Performed By: #### C MP #### [address] [address] Chloride [Moles/Vol] 101 mmol/L Normal 98 - 107 [facility] Comment on above: Performed By: #### C MP #### [address] [address] Creatinine [Mass/Vol] 1.21 mg/dL Normal 0.50 - 1.30 [facility] Comment on above: Performed By: #### C MP #### [address] [address] GFR/1.73 sq M.predicted among non-blacks MDRD (S/P/Bld) [Vol rate/Area] 68 mL/min/{1.73_m2} Normal >90 [facility] Comment on above: Result Comment: CALC ULATIONS OF ESTIMATED GFR ARE PERFORMED USING THE 2020 CKD-EPI STUDY REFIT EQUATION WITHOUT THE RACE VARIABLE FOR THE IDMS-TRACEABLE CREATININE METHODS. https://jasn.asnjournals.org/content//ASN.8805687 988 Performed By: #### C MP #### [address] [address] Glucose [Mass/Vol] 145 mg/dL High 74 - 99 [facility] Comment on above: Performed By: #### C MP #### [address] [address] HCO3 (Bld) [Moles/Vol] 28 mmol/L Normal 21 - 32 [facility] Comment on above: Performed By: #### C MP #### [address] [address] Potassium [Moles/Vol] 3.8 mmol/L Normal 3.5 - 5.3 [facility] Comment on above: Performed By: #### C MP #### [address] [address] Protein [Mass/Vol] 5.7 g/dL Low 6.4 - 8.2 [facility] Comment on above: Performed By: #### C MP #### [address] [address] Sodium [Moles/Vol] 136 mmol/L Normal 136 - 145 [facility] Comment on above: Performed By: #### C MP #### [address] [address] Urea nitrogen [Mass/Vol] 22 mg/dL Normal 6 - 23 [facility] Comment on above: Performed By: #### C MP #### [address] [address] CREATINE KINASEon 11-01-2021 CK [Catalytic activity/Vol] 43 U/L Normal 0 - 325 [facility] Comment on above: Performed By: #### C K #### [address] [address] CREATINE KINASE Canceled Normal [facility] Comment on above: Order Comment: TEST CREATINE KINASE WAS CANCELLED, 10/31/2021 23:14 Performed By: #### C K #### [facility] [address] [place] [address] CT ANGIO CHEST FOR PEon 10-17 CT ANGIO CHEST FOR PE Patient Name: GERALD STALEY STUDY: CT ANGIO CHEST FOR PE; 11/01/2021 12:23 am INDICATION: stable . COMPARISON: None. ACCESSION NUMBER(S): [id number] ORDERING CLINICIAN: SAUL HARP TECHNIQUE: Contiguous axial images of the chest were obtained after the intravenous administration of 90 mL Omnipaque 350 using angiographic PE protocol. Coronal and sagittal reformatted images were reconstructed from the axial data. MIP images were created and reviewed. FINDINGS: MEDIASTINUM AND LYMPH NODES: No enlarged intrathoracic or axillary lymph nodes. Small hiatal hernia. No pneumomediastinum. VESSELS: Normal caliber aorta without significant aortic atherosclerosis. The main pulmonary artery is in the normal limits for size and configuration. Evaluation of the pulmonary arteries is partially limited due to low lung volumes and mild respiratory motion. No definite pulmonary embolism is noted to the mid segmental level within constraints of streak artifact and motion. HEART: Normal in size. No significant coronary artery calcifications. No significant pericardial effusion. LUNG, AIRWAYS, AND PLEURA: Mild haziness of the lung parenchyma may be related to motion and atelectasis. Opacity at lung the right costophrenic angle noted. Lower lobe bronchial wall thickening. No sizable pleural effusion or pneumothorax. OSSEOUS STRUCTURES/CHEST WALL: The thyroid is not visualized on current exam. No axillary lymphadenopathy identified. No acute osseous abnormality. UPPER ABDOMEN/OTHER: The liver measures up to 19 cm. Diverticulosis. IMPRESSION: No acute pulmonary embolism identified to the mid segmental level within constraints of artifact and low lung volumes. Right costophrenic angle consolidative opacities likely atelectasis. Hepatomegaly, small hiatal hernia and diverticulosis. Electronically signed by: RIZWAN LUQUE DO Normal [facility] Electrocardiogram 12 Leadon 11-01-2021 Electrocardiogram 12 Lead Ventricular Rate 60 Atrial Rate 60 P-R Interval 168 QRS Duration 90 Q-T Interval 426 QTC Calculation(Bazett) 426 P [place] 55 R [place] 11 T [place] 33 QRS Count 10 Q Onset 223 P Onset 139 P Offset 184 T Offset 436 QTC Fredericia 426 Diagnosis Class Borderline Abnormal Diagnosis Normal sinus rhythm Normal ECG When compared with ECG of 31-OCT-2021 22:11, Previous ECG has undetermined rhythm, needs review Confirmed by Ananda Bacon ([id number]) on 11/04/2021 10:45:41 AM Normal [facility] LACTATEon 11-01-2021 Lactate [Moles/Vol] 1.6 mmol/L Normal 0.4 - 2.0 [facility] Comment on above: Result Comment: Feli puncture immediately after or during the administration of Metamizole may lead to falsely low results. Testing should be performed immediately prior to Metamizole dosing. Performed By: #### L ACT #### [place] [address] Lactate [Moles/Vol] 2.1 mmol/L High 0.4 - 2.0 [facility] Comment on above: Result Comment: Feli puncture immediately after or during the administration of Metamizole may lead to falsely low results. Testing should be performed immediately prior to Metamizole dosing. Performed By: #### L ACT ####[address] [address] MAGNESIUMon 11-01-2021 Magnesium [Mass/Vol] 2.05 mg/dL Normal 1.60 - 2.40 [facility] Comment on above: Performed By: #### M G ####[address] [address] Order Reconciliationon 11-01 Order Reconciliation Page 1 Admission Reconciliation Document Reconciliation Type: ED to Observation requested on behalf of Stoney Bradley (Physician) done by Stoney Bradley) ED to Observation - Reconciliation: 01-Nov-2021 03:45 by: Stoney Bradley) ED to Observation - AutoLinked: 01-Nov-2021 03:45 by: Stoney Bradley) Home MedicationsEnteredLast Dose TakenReconciled with current Order Reconciliation Comment/ Additional Information Albuterol (Eqv-ProAir HFA) 90 mcg/inh inhalation aerosol 2 puff(s) inhaled every 6 hours, As [id number] Reviewed and Held Eliquis 5 mg oral tablet 1 tab(s) orally 2 times a [id number] Apixaban Tablet (ELIQUIS)DOSE = 5 mg Oral Every 12 HoursEliquis 5 mg oral tablet continued as the inpatient order Apixaban gabapentin 600 mg oral tablet 1 tab(s) orally 3 times a [id number] Gabapentin Capsule (NEURONTIN)DOSE = 600 mg Oral 3 Times a Daygabapentin 600 mg oral tablet continued as the inpatient order Gabapentin losartan 100 mg oral tablet 1 tab(s) orally once a [id number] Losartan Tablet (COZAAR)DOSE = 100 mg Oral Dailylosartan 100 mg oral tablet continued as the inpatient order Losartan Maxzide 37.5mg-25mg 1 tab(s) orally once a [id number] Held and Reconciled, Review at Next Reconciliation oxyCODONE 15 mg oral tablet 1 tab(s) orally every 6 hours, As Needed 01-Nov-2021 Reviewed and Held Additional Current Orders Influenza Virus QUADRIVALENT (Inactive) ADULT Vaccine DOSE = 0.5 mL IntraMuscular OnceClinician Notes: :: Must be given prior to discharge. Order entered from Admission Screen. Sodium Chloride 0.9% Infusion IV Bag Volume = 1,000 mL Run at: 125 mL/hr IntraVenous Normal [facility] Patient Profile - Adult v2on 11-01-2021 Patient Profile - Adult v2 Profile: Initial Info: How to be AddressedDon Spoken Language PreferredEnglish (1) Source of Informationpatient Stated Reason for Admissionchest pain with radiation, SOB Primary Contact Name and NumberTammy/ [phone] Wants Family/Rep Notified of Admissionno Notify PCPdo not notify PCP Informed of Patient Visiting [place] Patient Belongingsremains with patient Patient Belongings Remaining with Patientclothing Medications Brought to Hospitalno General Health: Weight in kg100 kilogram(s)(2) Weight in qbg351.4 pound(s) Weight Methodstated Scale Typebed Height in cm165.1 centimeter(s)(2) Height in feet5 feet Height in inches5 inch(es) Height Methodstated BMI (kg/m2)36.686 square meter [facility] Based Care: How would you like to participate in your carebe active What is the number one concern for you during this hospitalizationgetting better What is the most important thing we can do to support you during this hospitalizationheal him Is there anything we need to know to best care for kiran/a Substance: Smoking Statusnever smoker (3) Health Mgmt: Symptoms/Conditions Managed at [facility] Relationship/Environ: Resource/Environmental Concernsnone Primary Source of Support/Comfortspouse Lives Withspouse; adult child(keila) Living Arrangementshouse Services Anticipated at Transitionnone Anticipated Transition Tohome Significant IndicatorsComplete Information Review: Allergies, Home Meds and Significant Events have been Reviewed and Verified with Patient/Familyyes ALLERGY, INTOLERANCE, ADVERSE EVENT: Allergies: No Known Allergies: Active Electronic Signatures: Farzana Du (RN) (Signed 01-Nov-2021 03:16) Authored: Initial Info, General Health, RSP Based Care, Substance, Health Mgmt, Relationship/Environ, Additional Information Last Updated: 01-Nov-2021 03:16 by Farzana Du (SUKUMAR) References: 1. Data Referenced From "Triage - ED" 31-Oct-2021 22:14 2. Data Referenced From 1. Vital Signs 31-Oct-2021 22:14 3. Data Referenced From Provider Note - ED v3 31-Oct-2021 23:14 [facility] Provider Note - ED v3on 10-17 Provider Note - ED v3 Provider Note: Chart Review: ED NOTES ED NOTES: 61-year-old male with very complicated recent history presents with some dyspnea and pleuritic type of chest pain. Patient states he was diagnosed with COVID recently. Patient was seen at [facility] twice and discharged. Patient was subsequently seen at [facility] and diagnosed with pulmonary emboli and transferred to [facility] where he was an inpatient for 5 days. Patient states there was some disconnect because of his pain management. Patient is here with persistent symptoms and generalized weakness. Patient does have periodic nausea. Patient denies any shortness of breath. Patient at present is on Eliquis as indicated for pulmonary emboli. He was given a dose of Solu-Medrol 125 mg IV. He also received IV antibiotics. CAT scan shows diffuse interstitial disease. I feel patient would benefit from inpatient IV medication and further evaluation. Possible consultation to Dr. Tang. HISTORY OF PRESENTING ILLNESS EGRALD is a 61 year old Male and was seen by me at 31-Oct-2021 22:21 for a chief complaint of chest pain (Pt complaint of chest pain and SOB. Pt discharged from [facility] for PE and COVID on Thursday. Pt states last 3 days he has been having chest pain and today got more SOB.)(1). The historian is the patientspouse. Triage Information: Most recent Vital Sign Value Date Temp (F): 98.9 10-31-2021 22:14 Temp (C): 37.1 10-31-2021 22:14 Heart Rate (beats/min): 77 10-31-2021 22:14 Respirations (breaths/min): 18 10-31-2021 22:14 SpO2 (%): 98 10-31-2021 22:14 BP Systolic (mm Hg): 118 10-31-2021 22:14 BP Diastolic (mm Hg): 89 10-31-2021 22:14 PAST MEDICAL HISTORY CURRENT OR FORMER SUBSTANCE USE: Tobacco/Nicotine Use: never smoker ALLERGIES/INTOLERANCES: No Known Allergies HEALTH HISTORY: No documented data. OUTPATIENT MEDICATIONS: Home Medications Review Status for Reconciliation: Complete Med Status: Patient Currently Takes Medications Drug Name: Albuterol (Eqv-ProAir HFA) 90 mcg/inh inhalation aerosol Instructions: 2 puff(s) inhaled every 6 hours, As Needed Drug Name: Eliquis 5 mg oral tablet Instructions: 1 tab(s) orally 2 times a day Drug Name: gabapentin 600 mg oral tablet Instructions: 1 tab(s) orally 3 times a day Drug Name: losartan 100 mg oral tablet Instructions: 1 tab(s) orally once a day Drug Name: oxyCODONE 15 mg oral tablet Instructions: 1 tab(s) orally every 6 hours, As Needed Drug Name: Maxzide 37.5mg-25mg Instructions: 1 tab(s) orally once a day SIGNIFICANT EVENTS: No documented data. REVIEW OF SYSTEMS CONSTITUTIONAL: POSITIVE for: malaise and weakness CARDIOVASCULAR: POSITIVE for: chest pain RESPIRATORY: POSITIVE for: cough and dyspnea GASTROINTESTINAL: POSITIVE for: abdominal pain and nausea; All other systems reviewed and are negative PHYSICAL EXAM CONSTITUTIONAL: Mildly obese pleasant 61-year-old male who is, awake, alert, oriented to person, place, time/situation and in no apparent distress. HENMT: Airway patent, ears with clear tympanic membranes bilaterally. Nasal mucosa clear. Mouth with normal mucosa. Throat has no vesicles, no oropharyngeal exudates and uvula is midline. Face with no lymph node enlargement. EYES: Clear bilaterally, pupils equal, round and reactive to light. CARDIOVASCULAR: Normal rate, regular rhythm. Heart sounds S1, S2. No murmurs, rubs or gallops. PMI non-displaced. RESPIRATORY: Breath sounds diminished GASTROINTESTINAL: Abdomen soft, non-distended, no rebound, no guarding. Bowel sounds normal in all 4 quadrants. GENITOURINARY: No discharge, no lesions. MUSCULOSKELETAL: Spine appears normal, range of motion is not limited, no muscle or joint tenderness. NEUROLOGICAL: Alert and oriented, no focal deficits, no motor or sensory deficits. SKIN: Skin normal color for race, warm, dry and intact. No evidence of trauma. PSYCHIATRIC: Alert and oriented to person, place, time/situation. normal mood and affect. No apparent risk to self or others. HEME/LYMPH: No adenopathy or splenomegaly. No cervical, supraclavicular or inguinal lymphadenopathy. CRITICAL CARE RESULTS: Recent Lab Results: I have reviewed these laboratory results: Lactate, Level Trending View [id number] 00:40:00 31-Oct-2021 22:58:00 Lactate, Level1.6 2.1 H Comprehensive Metabolic Panel 31-Oct-2021 22:58:00 ResultValue Glucose, Serum 145 H NA 136 K 3.8 CL 101 Bicarbonate, Serum 28 Anion Gap, Serum 11 BUN 22 CREAT 1.21 GFR Male 68 Calcium, Serum 8.7 ALB 3.6 ALKP 80 T Pro 5.7 L T Bili 0.8 Alanine Aminotransferase, Serum 37 Aspartate Transaminase, Serum 15 Creatine Kinase, Level 31-Oct-2021 22:58:00 ResultValue Creatine Kinase, Level 43 Troponin I, High Sensitivity 31-Oct-2021 22:58:00 ResultValue Troponin I, High Sensitivity 3 Magnesium, Serum 31-Oct-2021 22:58:00 ResultValue Magnesi (more content not included)... Normal [facility] Risk Screen - Adult Emergenc yon 11-01-2021 Risk Screen - Adult Emergency Preferred Language: Preferred Language: Preferred Language for Discussing Health Care (patient/designee)[place]an Advanced Directives: Advance Directive/DNRno Family Violence Adult: Abuse Screen: Are you or have you been threatened or abused physically, emotionally, or sexually by anyoneno Learning Assessment (Patient): Learning Assessment (Patient): Patient is Able to be Assessed for Learningyes Factors Influencing Readiness to Learnacuteness of illness Factors that Impact Ability to Learnnone Devices/Methods Used to Communicatenone Learning Preferencesaudio Cultural Considerationsnone Developmental Considerationsnone Sikhism Considerationsnone Learning Assessment (Other Learner): Learning Assessment (Other Learner): Other learner availableno Pressure Injury/TB/Substance: Pressure Injury: Pressure Injury Present on Admissionno Do you have a coughyes... Has your cough lasted longer than 2 weeksno Smoking Statusunable to assess Admission Risk Screen: Significant IndicatorsComplete CAGE: CAGE: Is this an injured patient at a Trauma Center ([facility]/Jovani/Ivett/Aury/Stefanie Zamora/Kieran): no Electronic Signatures: Manisha Eduardo (SUKUMAR) (Signed 31-Oct-2021 22:18) Authored: Preferred Language, Advanced Directives, Family Violence Adult, Learning Assessment (Patient), Learning Assessment (Other Learner), Pressure Injury/TB/Substance, Pressure Injury, CAGE Last Updated: 31-Oct-2021 22:18 by Manisha Eduardo (SUKUMAR) Normal [facility] TROPONIN I, HIGH SENSITIVITY on 11-01-2021 TROPONIN I, HIGH SENSITIVITY <3 Normal 0 - 20 [facility] Comment on above: Result Comment: . Less than 99th percentile of normal range cutoff- Female and children under 18 years old <14 ng/L; Male <21 ng/L: Negative Repeat testing should be performed if clinically indicated. . Female and children under 18 years old 14-50 ng/L; Male 21-50 ng/L: Consistent with possible cardiac damage and possible increased clinical risk. Serial measurements may help to assess extent of myocardial damage. . >50 ng/L: Consistent with cardiac damage, increased clinical risk and myocardial infarction. Serial measurements may help assess extent of myocardial damage. . NOTE: Children less than 1 year old may have higher baseline troponin levels and results should be interpreted in conjunction with the overall clinical context. . NOTE: Troponin I testing is performed using a different testing methodology at [facility] than at other [facility]. Direct result comparisons should only be made within the same method. Performed By: #### T [facility] #### [address] [address] TROPONIN I, HIGH SENSITIVITY 3 ng/L Normal 0 - 20 [facility] Comment on above: Result Comment: . Less than 99th percentile of normal range cutoff- Female and children under 18 years old <14 ng/L; Male <21 ng/L: Negative Repeat testing should be performed if clinically indicated. . Female and children under 18 years old 14-50 ng/L; Male 21-50 ng/L: Consistent with possible cardiac damage and possible increased clinical risk. Serial measurements may help to assess extent of myocardial damage. . >50 ng/L: Consistent with cardiac damage, increased clinical risk and myocardial infarction. Serial measurements may help assess extent of myocardial damage. . NOTE: Children less than 1 year old may have higher baseline troponin levels and results should be interpreted in conjunction with the overall clinical context. . NOTE: Troponin I testing is performed using a different testing methodology at [facility] than at other [facility]. Direct result comparisons should only be made within the same method. Performed By: #### T [facility] #### [address] [address] TSHon 11-01-2021 TSH Qn 2.24 m[IU]/L Normal 0.44 - 3.98 [facility] Comment on above: Result Comment: TSH testing is performed using different testing methodology at [facility] than at other [facility]. Direct result comparisons should only be made within the same method. Performed By: #### T [facility] #### [address] [address] Triage - EDon 11-01-2021 Triage - ED Chart Review: PRIMARY ASSESSMENT GERALD STALEY's primary assessment is Within Defined Limits. The airway is open and patent. Breathing spontaneous and unlabored with clear breath sounds bilaterally. Circulation is normal with good peripheral pulses. Skin is warm and dry and color is normal for race. 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 Pt discharged from [facility] for PE and COVID on Thursday. Pt states last 3 days he has been having chest pain and today got more SOB.). Triage Date/Time: 31-Oct-2021 22:15 JIMI: 2 Pain Rating (0-10): 8 = Severe Pain location: chest Vital Signs: Temperature: 98.9F ( 37.1C) taken oral Blood Pressure: 118/89 Mean: Heart Rate: 77 Respiratory Rate: 18 Pulse Oximetry: 98% on room air, no respiratory support. Height: 5 feet 5.00 inches. 165.1 CM Weight: 220.4 pounds. Calculated 100.0 kg. (stated) Calculated BMI (kg/m2): 36.686 Calculated BSA (m2) 2.14 Aydin Coma Scale: Best Eye Response: (E4) spontaneous Best Motor Response: (M6) obeys commands Best Verbal Response: (V5) oriented [place] Score: 15 Cough lasting greater than 3 weeks: no Allergies: no Mask applied: yes Patient has homicidal thoughts: no Symptoms Are POSITIVE For: dyspnea and pain Symptoms Are Negative For: anxiety, chills, diaphoresis, headache, loss of consciousness, nausea, numbness, tingling and weakness Risk Screens Suicide Risk Screen In the Past Month: Have you wished you were or wished you could go to sleep and not wake up no In the Past Month: Have you had any actual thoughts of killing yourself no In Your Lifetime: Have you ever done anything, started to do anything, or prepared to do anything to end your life no Peña Fall Scale Screening Has the patient fallen before (or is the patient in the ED as a result of a fall) has not had a fall Does the patient have an impaired gait does not have impaired gait Is the patient cognitively impaired not cognitively impaired Interventions: Casey Fall Interventions: LOW INTERVENTIONS: *patient oriented to surroundings and call system, * patient/family falls education completed and documented, *patients fall status communicated during bedside handoff, *whiteboard updated, *mode of toileting discussed with patient, *bed in low position with brakes locked, *call light in reach, * non-skid footwear PAST MEDICAL HISTORY Immunization History: Last Known Tetanus Immunization: Unknown TRAVEL HISTORY Travel History Coronavirus Screening: COVID positive within the last 13 days Travel Exposure History: NO travel to International locations in the past 30 days PAIN Pain Scale Used: AROLDO Pain Rating (0-10): 8 = Severe Past Medical History: Past Medical History Reviewedyes Electronic Signatures: Manisha Eduardo (RN) (Signed 31-Oct-2021 22:17) Authored: Quick Triage, Risk Screens, Pain, Arrival, ABCD, Immunizations, Travel History, Chart Review, Scores, Past Medical History Last Updated: 31-Oct-2021 22:17 by Manisha Eduardo (SUKUMAR) Normal [facility] Basic Metabolic Panelon 10-17 Calcium [Mass/Vol] 9.0 mg/dL Normal 8.4-10.4 [facility] Comment on above: Performed By: #### C RP2, VD25H #### [facility] [address] [place] [address] #### PCAL #### [address] [place], [place] Glucose [Mass/Vol] 152 mg/dL High 70-100 [facility] Comment on above: Performed By: #### C RP2, VD25H #### [facility] [address] [place] [address] #### PCAL #### [address] [address] [place] [address] Urea nitrogen [Mass/Vol] 30 mg/dL High 7-17 [facility] Comment on above: Performed By: #### C RP2, VD25H #### [facility] [address] [place] [address] #### PCAL #### [facility] [address] [place] [address] Anion gap [Moles/Vol] 9 mmol/L Normal 3-13 [facility] Comment on above: Performed By: #### C RP2, VD25H #### [facility] [address] [place] [address] #### PCAL #### [address] [address] [place], [place] CO2 [Moles/Vol] 21 mmol/L Low 22-30 [facility] Comment on above: Performed By: #### C RP2, VD25H #### [facility] [address] [place] [address] #### PCAL #### [facility] [address] [place], [place] Creatinine [Mass/Vol] 0.84 mg/dL Normal 0.52-1.25 [facility] Comment on above: Performed By: #### C RP2, VD25H #### [facility] [employer] [address] [place] [address] #### PCAL #### [facility] [address] [place], [place] eGFR OTHER > 90.0 Normal >60 [facility] Comment on above: Result Comment: KDIG O guidelines provide the following GFR categories: Stage GFR(ml/min/1.73 m2) Terms G1 >=90 Normal or high G2 60-89 Mildly decreased* G3a 45-59 Mildly to moderately decreased G3b 30-44 Moderately to severely decreased G4 15-29 Severely decreased G5 <15 Kidney failure *Relative to young adult level. In the absence of evidence of kidney damage, neither GFR category G1 nor G2 fulfill the criteria for CKD. The CKD-EPI equation is validated in individuals 18 years of age and older. Currently the best equation for estimating glomerular filtration rate (GFR) from serum creatinine in children is the Bedside Villatoro equation. It is less accurate in patients with extremes of muscle mass, restriction of dietary protein, ingestion of creatine, extra-renal metabolism of creatinine, or treatment with medications that affect renal tubular creatinine secretion. Performed By: #### C RP2, VD25H #### [facility] [address] [place] [address] #### PCAL #### [facility] [address] [place], [place] GFR/1.73 sq M.predicted among blacks MDRD (S/P/Bld) [Vol rate/Area] mL/min/{1.73_m2} Normal >60 [facility] Comment on above: Performed By: #### C RP2, VD25H #### [facility] [address] [place] [address] #### PCAL #### [facility] [address] [place], [place] Potassium [Moles/Vol] 3.6 mmol/L Normal 3.5-5.1 [facility] Comment on above: Performed By: #### C RP2, VD25H #### [facility] [address] [place] [address] #### PCAL #### [facility] [address] [place], [place] Sodium [Moles/Vol] 133 mmol/L Low 135-145 [facility] Comment on above: Performed By: #### C RP2, VD25H #### [facility] [address] [place] [address] #### PCAL #### [address] [place], [place] Chloride [Moles/Vol] 103 mmol/L Normal 98-107 [facility] Comment on above: Performed By: #### C RP2, VD25H #### [facility] [address] [place] [address] #### PCAL #### [address] [place], [place] Basic Metabolic Panel w/ Ref jen to MGon 10-26-2021 Anion gap [Moles/Vol] 9 mmol/L 3 - 13 mmol/L [facility] Calcium [Mass/Vol] 9.0 mg/dL 8.4 - 10. 4 mg/dL [facility] Chloride [Moles/Vol] 103 mmol/L 98 - 10 7 mmol/L [facility] CO2 [Moles/Vol] 21 mmol/L Low 22 - 30 mmol/L [facility] Creatinine [Mass/Vol] 0.84 mg/dL 0.52 - 1.25 mg/dL [facility] eGFR mL/min 60 - PINF mL/min [facility] EGFR IF NonAfrican Malawian mL/min 60 - PINF mL/min [facility] Comment on above: KDIGO guidelines pro vide the following GFR categories: Stage GFR(ml/min/1.73 m2) Terms G1 >=90 Normal or high G2 60-89 Mildly decreased* G3a 45-59 Mildly to moderately decreased G3b 30-44 Moderately to severely decreased G4 15-29 Severely decreased G5 <15 Kidney failure *Relative to young adult level. In the absence of evidence of kidney damage, neither GFR category G1 nor G2 fulfill the criteria for CKD. The CKD-EPI equation is validated in individuals 18 years of age and older. Currently the best equation for estimating glomerular filtration rate (GFR) from serum creatinine in children is the Bedside Villatoro equation. It is less accurate in patients with extremes of muscle mass, restriction of dietary protein, ingestion of creatine, extra-renal metabolism of creatinine, or treatment with medications that affect renal tubular creatinine secretion. Glucose [Mass/Vol] 152 mg/dL High 70 - 100 mg/dL [facility] Interpretation and review of laboratory results Abnormal [facility] Potassium [Moles/Vol] 3.6 mmol/L 3.5 - 5.1 mmol/L [facility] Sodium [Moles/Vol] 133 mmol/L Low 135 - 145 mmol/L [facility] Urea nitrogen (BldV) [Mass/Vol] 30 mg/dL High 7 - 17 mg/dL [facility] Test Performed by [facility], [address] [place] [id number] [place] [address] LAB [facility] CBC with Auto Differentialon 10-26-2021 Absolute Baso # 0.1 10*3/uL 0 - 0.2 10*3/uL [facility] Absolute Neut # 8.3 10*3/uL High 1.8 - 7 10*3/uL [facility] Basophils/100 WBC (Bld) 0.5 % 0 - 2 % [facility] Eosinophils (Bld) [#/Vol] 0.0 10*3/uL 0 - 0.5 10*3/uL [facility] Eosinophils/100 WBC (Bld) 0.2 % Low 1 - 6 % [facility] Granulocytes/100 WBC (Bld) 71.1 % 40 - 80 % [facility] Hematocrit (Bld) [Volume fraction] 44.0 % 40 - 52 % [facility] Hemoglobin (Bld) [Mass/Vol] 14.8 g/dL 13 - 18 g/dL [facility] Interpretation and review of laboratory results Abnormal [facility] Lymphocytes (Bld) [#/Vol] 2.7 10*3/uL 1 - 4.3 10*3/uL [facility] Lymphocytes/100 WBC (Bld) 23.1 % 20 - 40 % [facility] MCH (RBC) [Entitic mass] 29.7 pg 26 - 34 pg [facility] MCHC (RBC) [Mass/Vol] 33.6 % 32 - 36 % [facility] MCV (RBC) [Entitic vol] 88.2 fL 80 - 98 fL [facility] Monocytes (Bld) [#/Vol] 0.6 10*3/uL 0 - 0.8 10*3/uL [facility] Monocytes/100 WBC (Bld) 5.1 % 2 - 10 % [facility] Platelet distribution width (Bld) [Ratio] 14.3 % 11.5 - 14.5 % [facility] Platelet mean volume (Bld) [Entitic vol] 7.3 fL Low 7.4 - 12.4 fL [facility] Comment on above: MPV is a calculated measurement using platelet volume ratio. Platelets (Bld) [#/Vol] 268 10*3/uL 140 - 440 10*3/uL [facility] RBC (Bld) [#/Vol] 4.98 10*6/uL 4.4 - 5.9 10*6/uL [facility] WBC (Bld) [#/Vol] 11.7 10*3/uL High 3.6 - 10.7 10*3/uL [facility] Test Performed by [facility], [address] [place], [place] [address] [facility] Hemogram w/ Autodiffon 10-26 Abs Baso Cnt 0.1 10*3/uL Normal 0.0-0.[address] [facility] Comment on above: Performed By: #### H EMDAyden BMP3M #### [facility] [address] [place] [address] Abs Neutrophile Cnt 8.3 10*3/uL High 1.8-7.0 [facility] Comment on above: Performed By: #### H EMDAyden BMP3M #### [facility] [address] [place] [address] Basophils/100 WBC (Bld) 0.5 % Normal 0.0-2.0 [facility] Comment on above: Performed By: #### H EMDAyden BMP3M #### [facility] [address] [place] [address] Eosinophils (Bld) [#/Vol] 0.0 10*3/uL Normal 0.0-0.5 [facility] Comment on above: Performed By: #### H EMDF, BMP3M #### [facility] [address] [place] [address] Eosinophils/100 WBC (Bld) 0.2 % Low 1.0-6.0 [facility] Comment on above: Performed By: #### H EMDF, BMP3M #### [facility] [address] [place] [address] Erythrocyte distribution width (RBC) [Ratio] 14.3 % Normal 11.5-14.5 [facility] Comment on above: Performed By: #### H EMDF, BMP3M #### [facility] [address] [place] [address] Granulocytes/100 WBC (Bld) 71.1 % Normal 40.0-80.0 [facility] Comment on above: Performed By: #### H EMDF, BMP3M #### [facility] [address] [place] [address] Hematocrit (Bld) [Volume fraction] 44.0 % Normal 40.0-52.0 [facility] Comment on above: Performed By: #### H EMDF, BMP3M #### [facility] [address] [place] [address] Hemoglobin (Bld) [Mass/Vol] 14.8 g/dL Normal 13.0-18.0 [facility] Comment on above: Performed By: #### H EMDF, BMP3M #### [facility] [address] [place] [address] Lymphocytes (Bld) [#/Vol] 2.7 10*3/uL Normal 1.0-4.3 [facility] Comment on above: Performed By: #### H EMDF, BMP3M #### [facility] [address] [place] [address] Lymphocytes/100 WBC (Bld) 23.1 % Normal 20.0-40.0 [facility] Comment on above: Performed By: #### H EMDF, BMP3M #### [facility] [address] [place] [address] MCH (RBC) [Entitic mass] 29.7 pg Normal 26.0-34.0 [facility] Comment on above: Performed By: #### H EMDF, BMP3M #### [facility] [address] [place] [address] MCHC 33.6 % Normal 32.0-36.0 [facility] Comment on above: Performed By: #### H EMDF, BMP3M #### [facility] [address] [place] [address] MCV (RBC) [Entitic vol] 88.2 fL Normal 80.0-98.0 [facility] Comment on above: Performed By: #### H EMDF, BMP3M #### [facility] [address] [place] [address] Monocytes (Bld) [#/Vol] 0.6 10*3/uL Normal 0.0-0.8 [facility] Comment on above: Performed By: #### H EMDF, BMP3M #### [facility] [address] [place] [address] Monocytes/100 WBC (Bld) 5.1 % Normal 2.0-10.0 [facility] Comment on above: Performed By: #### H EMDF, BMP3M #### [facility] [address] [place] [address] Platelet mean volume (Bld) [Entitic vol] 7.3 fL Low 7.4-12.4 [facility] Comment on above: Result Comment: MPV is a calculated measurement using platelet volume ratio. Performed By: #### H EMDF, BMP3M #### [facility] [address] [place] [address] Platelets (Bld) [#/Vol] 268 10*3/uL Normal 140-440 [facility] Comment on above: Performed By: #### H EMDF, BMP3M #### [facility] [address] [place] [address] RBC (Bld) [#/Vol] 4.98 10*6/uL Normal 4.40-5.90 [facility] Comment on above: Performed By: #### H DONNA MCLEAN3M #### [facility] [address] [place] [address] WBC (Bld) [#/Vol] 11.7 10*3/uL High 3.6-10.7 [facility] Comment on above: Performed By: #### H DONNA MCLEAN3M #### [facility] [address] [place] [address] CBC with Auto Differentialon 10-25-2021 Absolute Baso # 0.0 10*3/uL 0 - 0.2 10*3/uL [facility] Absolute Neut # 8.5 10*3/uL High 1.8 - 7 10*3/uL [facility] Basophils/100 WBC (Bld) 0.3 % 0 - 2 % [facility] Eosinophils (Bld) [#/Vol] 0.0 10*3/uL 0 - 0.5 10*3/uL [facility] Eosinophils/100 WBC (Bld) 0.1 % Low 1 - 6 % [facility] Granulocytes/100 WBC (Bld) 71.8 % 40 - 80 % [facility] Hematocrit (Bld) [Volume fraction] 42.6 % 40 - 52 % [facility] Hemoglobin (Bld) [Mass/Vol] 14.2 g/dL 13 - 18 g/dL [facility] Interpretation and review of laboratory results Abnormal [facility] Lymphocytes (Bld) [#/Vol] 2.2 10*3/uL 1 - 4.3 10*3/uL [facility] Lymphocytes/100 WBC (Bld) 18.9 % Low 20 - 40 % [facility] MCH (RBC) [Entitic mass] 29.7 pg 26 - 34 pg [facility] MCHC (RBC) [Mass/Vol] 33.4 % 32 - 36 % [facility] MCV (RBC) [Entitic vol] 88.8 fL 80 - 98 fL [facility] Monocytes (Bld) [#/Vol] 1.1 10*3/uL High 0 - 0.8 10*3/uL [facility] Monocytes/100 WBC (Bld) 8.9 % 2 - 10 % [facility] Platelet distribution width (Bld) [Ratio] 14.3 % 11.5 - 14.5 % [facility] Platelet mean volume (Bld) [Entitic vol] 7.3 fL Low 7.4 - 12.4 fL [facility] Comment on above: MPV is a calculated measurement using platelet volume ratio. Platelets (Bld) [#/Vol] 257 10*3/uL 140 - 440 10*3/uL [facility] RBC (Bld) [#/Vol] 4.80 10*6/uL 4.4 - 5.9 10*6/uL [facility] WBC (Bld) [#/Vol] 11.8 10*3/uL High 3.6 - 10.7 10*3/uL [facility] Test Performed by [facility], [address] [place] [address] [facility] Comp Panel with Mg Reflexon 10-25-2021 ALT [Catalytic activity/Vol] 65 U/L High 0-49 [facility] Comment on above: Result Comment: The ALT test is performed by an updated assay method. Please note that the reference intervals have been changed and are now sex specific. Performed By: #### C RP2, VD25H #### [facility] [address] [place] [address] #### PCAL #### [address] [place], [place] Calcium [Mass/Vol] 9.3 mg/dL Normal 8.4-10.4 [facility] Comment on above: Performed By: #### C RP2, VD25H #### [facility] [address] [place] [address] #### PCAL #### [address] [place], [place] ALP [Catalytic activity/Vol] 77 U/L Normal 38-126 [facility] Comment on above: Performed By: #### C RP2, VD25H #### [facility] [address] [place] [address] #### PCAL #### [address] Anion gap [Moles/Vol] 6 mmol/L Normal 3-13 [facility] Comment on above: Performed By: #### C RP2, VD25H #### [place] [address] [place] [address] #### PCAL #### [address] [address] [place], [place] AST [Catalytic activity/Vol] 58 U/L High 15-46 [facility] Comment on above: Performed By: #### C RP2, VD25H #### [place] [address] [place] [address] #### PCAL #### [address] [place], [place] Bilirubin [Mass/Vol] 0.5 mg/dL Normal 0.2-1.3 [facility] Comment on above: Performed By: #### C RP2, VD25H #### [place] [address] [place] [address] #### PCAL #### [address] CO2 [Moles/Vol] 25 mmol/L Normal 22-30 [facility] Comment on above: Performed By: #### C RP2, VD25H #### [address] [place] [address] #### PCAL #### [address] Creatinine [Mass/Vol] 0.91 mg/dL Normal 0.52-1.25 [facility] Comment on above: Performed By: #### C RP2, VD25H #### [address] [place] [address] #### PCAL #### [address] eGFR OTHER > 90.0 Normal >60 [facility] Comment on above: Result Comment: KDIG O guidelines provide the following GFR categories: Stage GFR(ml/min/1.73 m2) Terms G1 >=90 Normal or high G2 60-89 Mildly decreased* G3a 45-59 Mildly to moderately decreased G3b 30-44 Moderately to severely decreased G4 15-29 Severely decreased G5 <15 Kidney failure *Relative to young adult level. In the absence of evidence of kidney damage, neither GFR category G1 nor G2 fulfill the criteria for CKD. The CKD-EPI equation is validated in individuals 18 years of age and older. Currently the best equation for estimating glomerular filtration rate (GFR) from serum creatinine in children is the Bedside Villatoro equation. It is less accurate in patients with extremes of muscle mass, restriction of dietary protein, ingestion of creatine, extra-renal metabolism of creatinine, or treatment with medications that affect renal tubular creatinine secretion. Performed By: #### C RP2, VD25H #### [facility] [address] [place] [address] #### PCAL #### [address] [place] [address] GFR/1.73 sq M.predicted among blacks MDRD (S/P/Bld) [Vol rate/Area] mL/min/{1.73_m2} Normal >60 [facility] Comment on above: Performed By: #### C RP2, VD25H #### [address] [place] [address] #### PCAL #### [address] [address] Glucose [Mass/Vol] 96 mg/dL Normal 70-100 [facility] Comment on above: Performed By: #### C RP2, VD25H #### [address] [place] [address] #### PCAL #### [address] [address] Protein [Mass/Vol] 6.7 g/dL Normal 6.3-8.2 [facility] Comment on above: Performed By: #### C RP2, VD25H #### [address] [place] [address] #### PCAL #### [address] [address] Urea nitrogen [Mass/Vol] 30 mg/dL High 7-17 [facility] Comment on above: Performed By: #### C RP2, VD25H #### [address] [place] [address] #### PCAL #### [facility] [address] [place], [place] Potassium [Moles/Vol] 4.0 mmol/L Normal 3.5-5.1 [facility] Comment on above: Performed By: #### C RP2, VD25H #### [facility] [address] [place] [address] #### PCAL #### [facility] [address] [place], [place] Albumin [Mass/Vol] 3.8 g/dL Normal 3.5-5.0 [facility] Comment on above: Performed By: #### C RP2, VD25H #### [facility] [address] [place] [address] #### PCAL #### [address] [place], [place] Chloride [Moles/Vol] 102 mmol/L Normal 98-107 [facility] Comment on above: Performed By: #### C RP2, VD25H #### [facility] [address] [place] [address] #### PCAL #### [address] [place], [place] Sodium [Moles/Vol] 133 mmol/L Low 135-145 [facility] Comment on above: Performed By: #### C RP2, VD25H #### [facility] [address] [place] [address] #### PCAL #### [address] [place], [place] Comprehensive Metabolic Pane l w/ Reflex to MGon 10-25-2021 Albumin [Mass/Vol] 3.8 g/dL 3.5 - 5 g/dL [facility] ALP (Bld) [Catalytic activity/Vol] 77 U/L 38 - 126 U/L [facility] ALT [Catalytic activity/Vol] 65 U/L High 0 - 49 U/L [facility] Comment on above: The ALT test is perf ormed by an updated assay method. Please note that the reference intervals have been changed and are now sex specific. Anion gap [Moles/Vol] 6 mmol/L 3 - 13 mmol/L [facility] AST [Catalytic activity/Vol] 58 U/L High 15 - 46 U/L [facility] Bilirubin [Mass/Vol] 0.5 mg/dL 0.2 - 1 .3 mg/dL [facility] Calcium [Mass/Vol] 9.3 mg/dL 8.4 - 10. 4 mg/dL [facility] Chloride [Moles/Vol] 102 mmol/L 98 - 10 7 mmol/L [facility] CO2 [Moles/Vol] 25 mmol/L 22 - 30 mmol/L [facility] Creatinine [Mass/Vol] 0.91 mg/dL 0.52 - 1.25 mg/dL [facility] eGFR mL/min 60 - PINF mL/min [facility] EGFR IF NonAfrican [place]ian mL/min 60 - PINF mL/min [facility] Comment on above: KDIGO guidelines pro vide the following GFR categories: Stage GFR(ml/min/1.73 m2) Terms G1 >=90 Normal or high G2 60-89 Mildly decreased* G3a 45-59 Mildly to moderately decreased G3b 30-44 Moderately to severely decreased G4 15-29 Severely decreased G5 <15 Kidney failure *Relative to young adult level. In the absence of evidence of kidney damage, neither GFR category G1 nor G2 fulfill the criteria for CKD. The CKD-EPI equation is validated in individuals 18 years of age and older. Currently the best equation for estimating glomerular filtration rate (GFR) from serum creatinine in children is the Bedside Villatoro equation. It is less accurate in patients with extremes of muscle mass, restriction of dietary protein, ingestion of creatine, extra-renal metabolism of creatinine, or treatment with medications that affect renal tubular creatinine secretion. Free PSA/Total PSA [Mass fraction] 6.7 g/dL 6.3 - 8.2 g/dL [facility] Glucose [Mass/Vol] 96 mg/dL 70 - 100 mg/dL [facility] Interpretation and review of laboratory results Abnormal [facility] Potassium [Moles/Vol] 4.0 mmol/L 3.5 - 5.1 mmol/L [facility] Sodium [Moles/Vol] 133 mmol/L Low 135 - 145 mmol/L [facility] Urea nitrogen (BldV) [Mass/Vol] 30 mg/dL High 7 - 17 mg/dL [facility] Test Performed by [facility], [address] [place], [place], [place] [address] [facility] Hemogram w/ Autodiffon 10-25 Abs Baso Cnt 0.0 10*3/uL Normal 0.0-0.[address] [facility] Comment on above: Performed By: #### C RP2, VD25H #### [facility] [address] [place] [address] #### PCAL #### [address] [address] [place], [place] Abs Neutrophile Cnt 8.5 10*3/uL High 1.8-7.0 [facility] Comment on above: Performed By: #### C RP2, VD25H #### [place] [address] [place] [address] #### PCAL #### [address] Basophils/100 WBC (Bld) 0.3 % Normal 0.0-2.0 [facility] Comment on above: Performed By: #### C RP2, VD25H #### [place] [address] [place] [address] #### PCAL #### [address] Eosinophils (Bld) [#/Vol] 0.0 10*3/uL Normal 0.0-0.5 [facility] Comment on above: Performed By: #### C RP2, VD25H #### [place] [address] [place] [address] #### PCAL #### [address] Eosinophils/100 WBC (Bld) 0.1 % Low 1.0-6.0 [facility] Comment on above: Performed By: #### C RP2, VD25H #### [place] [address] [place] [address] #### PCAL #### [address] Erythrocyte distribution width (RBC) [Ratio] 14.3 % Normal 11.5-14.5 [facility] Comment on above: Performed By: #### C RP2, VD25H #### [place] [address] [place] [address] #### PCAL #### [address] [address] [place] [address] Granulocytes/100 WBC (Bld) 71.8 % Normal 40.0-80.0 [facility] Comment on above: Performed By: #### C RP2, VD25H #### [place] [address] [place] [address] #### PCAL #### [address] [address] [place], [place] Hematocrit (Bld) [Volume fraction] 42.6 % Normal 40.0-52.0 [facility] Comment on above: Performed By: #### C RP2, VD25H #### [address] [place] [address] #### PCAL #### [address] Hemoglobin (Bld) [Mass/Vol] 14.2 g/dL Normal 13.0-18.0 [facility] Comment on above: Performed By: #### C RP2, VD25H #### [address] [place] [address] #### PCAL #### [address] Lymphocytes (Bld) [#/Vol] 2.2 10*3/uL Normal 1.0-4.3 [facility] Comment on above: Performed By: #### C RP2, VD25H #### [place] [address] [place] [address] #### PCAL #### [address] Lymphocytes/100 WBC (Bld) 18.9 % Low 20.0-40.0 [facility] Comment on above: Performed By: #### C RP2, VD25H #### [place] [address] [place] [address] #### PCAL #### [facility] [address] [place], [place] MCH (RBC) [Entitic mass] 29.7 pg Normal 26.0-34.0 [facility] Comment on above: Performed By: #### C RP2, VD25H #### [facility] [address] [place] [address] #### PCAL #### [address] [place], [place] MCHC 33.4 % Normal 32.0-36.0 [facility] Comment on above: Performed By: #### C RP2, VD25H #### [facility] [address] [place] [address] #### PCAL #### [address] MCV (RBC) [Entitic vol] 88.8 fL Normal 80.0-98.0 [facility] Comment on above: Performed By: #### C RP2, VD25H #### [facility] [address] [place] [address] #### PCAL #### [address] [place], [place] Monocytes (Bld) [#/Vol] 1.1 10*3/uL High 0.0-0.8 [facility] Comment on above: Performed By: #### C RP2, VD25H #### [facility] [address] [place] [address] #### PCAL #### [address] [place], [place] Monocytes/100 WBC (Bld) 8.9 % Normal 2.0-10.0 [facility] Comment on above: Performed By: #### C RP2, VD25H #### [facility] [address] [place] [address] #### PCAL #### [place] [address] [place], [place] Platelet mean volume (Bld) [Entitic vol] 7.3 fL Low 7.4-12.4 [facility] Comment on above: Result Comment: MPV is a calculated measurement using platelet volume ratio. Performed By: #### C RP2, VD25H #### [facility] [address] [place] [address] #### PCAL #### [facility] [address] [place] [address] Platelets (Bld) [#/Vol] 257 10*3/uL Normal 140-440 [facility] Comment on above: Performed By: #### C RP2, VD25H #### [place] [address] [place] [address] #### PCAL #### [address] [place] [address] RBC (Bld) [#/Vol] 4.80 10*6/uL Normal 4.40-5.90 [facility] Comment on above: Performed By: #### C RP2, VD25H #### [place] [address] [place] [address] #### PCAL #### [address] [place] [address] WBC (Bld) [#/Vol] 11.8 10*3/uL High 3.6-10.7 [facility] Comment on above: Performed By: #### C RP2, VD25H #### [place] [address] [place] [address] #### PCAL #### [address] [place] [address] C-Reactive Proteinon 022 CRP [Mass/Vol] 58.0 mg/L High 0.0-9.9 [facility] Comment on above: Result Comment: . Performed By: #### C RP2 #### [place] [address] [place] [address] CRP [Mass/Vol] 58 mg/L High 0 - 9.9 mg/L [facility] Work Phone: Comment on above: . Interpretation and review of laboratory results Abnormal [facility] Work Phone: Test Performed by [facility], [address] [place] [address] [facility] Work Phone: Basic Metabolic Panelon 09-0 Calcium [Mass/Vol] 9.0 mg/dL Normal 8.4-10.4 [facility] Comment on above: Order Comment: Sligh t Hemolysis Performed By: #### L FT3, DDI2, BMP3 #### [facility] [address] [place] [address] Glucose [Mass/Vol] 125 mg/dL High 70-100 [facility] Comment on above: Order Comment: Sligh t Hemolysis Performed By: #### L FT3, DDI2, BMP3 #### [facility] [address] [place] [address] Urea nitrogen [Mass/Vol] 22 mg/dL High 7-17 [facility] Comment on above: Order Comment: Sligh t Hemolysis Performed By: #### L FT3, DDI2, BMP3 #### [facility] [address] [place] [address] Anion gap [Moles/Vol] 10 mmol/L Normal 3-13 [facility] Comment on above: Order Comment: Sligh t Hemolysis Performed By: #### L FT3, DDI2, BMP3 #### [facility] [address] [place] [address] CO2 [Moles/Vol] 24 mmol/L Normal 22-30 [facility] Comment on above: Order Comment: Sligh t Hemolysis Performed By: #### L FT3, DDI2, BMP3 #### [facility] [address] [place] [address] Creatinine [Mass/Vol] 0.86 mg/dL Normal 0.52-1.25 [facility] Comment on above: Order Comment: Sligh t Hemolysis Performed By: #### L FT3, DDI2, BMP3 #### [facility] [address] [place] [address] eGFR OTHER > 90.0 Normal >60 [facility] Comment on above: Order Comment: Sligh t Hemolysis Result Comment: KDIG O guidelines provide the following GFR categories: Stage GFR(ml/min/1.73 m2) Terms G1 >=90 Normal or high G2 60-89 Mildly decreased* G3a 45-59 Mildly to moderately decreased G3b 30-44 Moderately to severely decreased G4 15-29 Severely decreased G5 <15 Kidney failure *Relative to young adult level. In the absence of evidence of kidney damage, neither GFR category G1 nor G2 fulfill the criteria for CKD. The CKD-EPI equation is validated in individuals 18 years of age and older. Currently the best equation for estimating glomerular filtration rate (GFR) from serum creatinine in children is the Bedside Villatoro equation. It is less accurate in patients with extremes of muscle mass, restriction of dietary protein, ingestion of creatine, extra-renal metabolism of creatinine, or treatment with medications that affect renal tubular creatinine secretion. Performed By: #### L FT3, DDI2, BMP3 #### [facility] [address] [place] [address] GFR/1.73 sq M.predicted among blacks MDRD (S/P/Bld) [Vol rate/Area] mL/min/{1.73_m2} Normal >60 [facility] Comment on above: Order Comment: Sligh t Hemolysis Performed By: #### L FT3, DDI2, BMP3 #### [facility] [address] [place] [address] Chloride [Moles/Vol] 102 mmol/L Normal 98-107 [facility] Comment on above: Order Comment: Sligh t Hemolysis Performed By: #### L FT3, DDI2, BMP3 #### [facility] [address] [place] [address] Potassium [Moles/Vol] 4.8 mmol/L Normal 3.5-5.1 [facility] Comment on above: Order Comment: Sligh t Hemolysis Performed By: #### L FT3, DDI2, BMP3 #### [facility] [address] [place] [address] Sodium [Moles/Vol] 136 mmol/L Normal 135-145 [facility] Comment on above: Order Comment: Sligh t Hemolysis Performed By: #### L FT3, DDI2, BMP3 #### [facility] [address] [place] [address] Anion gap [Moles/Vol] 10 mmol/L 3 - 13 mmol/L [facility] Calcium [Mass/Vol] 9.0 mg/dL 8.4 - 10. 4 mg/dL [facility] Chloride [Moles/Vol] 102 mmol/L 98 - 10 7 mmol/L [facility] CO2 [Moles/Vol] 24 mmol/L 22 - 30 mmol/L [facility] Creatinine [Mass/Vol] 0.86 mg/dL 0.52 - 1.25 mg/dL [facility] eGFR mL/min 60 - PINF mL/min [facility] EGFR IF NonAfrican Malawian mL/min 60 - PINF mL/min [facility] Comment on above: KDIGO guidelines pro vide the following GFR categories: Stage GFR(ml/min/1.73 m2) Terms G1 >=90 Normal or high G2 60-89 Mildly decreased* G3a 45-59 Mildly to moderately decreased G3b 30-44 Moderately to severely decreased G4 15-29 Severely decreased G5 <15 Kidney failure *Relative to young adult level. In the absence of evidence of kidney damage, neither GFR category G1 nor G2 fulfill the criteria for CKD. The CKD-EPI equation is validated in individuals 18 years of age and older. Currently the best equation for estimating glomerular filtration rate (GFR) from serum creatinine in children is the Bedside Villatoro equation. It is less accurate in patients with extremes of muscle mass, restriction of dietary protein, ingestion of creatine, extra-renal metabolism of creatinine, or treatment with medications that affect renal tubular creatinine secretion. Glucose [Mass/Vol] 125 mg/dL High 70 - 100 mg/dL [facility] Potassium [Moles/Vol] 4.8 mmol/L 3.5 - 5.1 mmol/L [facility] Sodium [Moles/Vol] 136 mmol/L 135 - 145 mmol/L [facility] Urea nitrogen (BldV) [Mass/Vol] 22 mg/dL High 7 - 17 mg/dL [facility] CBC with Auto Differentialon 10-23-2021 Absolute Baso # 0.0 10*3/uL 0 - 0.2 10*3/uL [facility] Work Phone: Absolute Neut # 10.8 10*3/uL High 1.8 - 7 10*3/uL [facility] Work Phone: Basophils/100 WBC (Bld) 0.4 % 0 - 2 % [facility] Work Phone: Eosinophils (Bld) [#/Vol] 0.0 10*3/uL 0 - 0.5 10*3/uL [employer] [facility] [employer] [facility] Work Phone: [phone] Eosinophils/100 WBC (Bld) 0.0 % Low 1 - 6 % [employer] [facility] [employer] [facility] Work Phone: [phone] Granulocytes/100 WBC (Bld) 84.8 % High 40 - 80 % [employer] [facility] [employer] [facility] Work Phone: [phone] Hematocrit (Bld) [Volume fraction] 41.6 % 40 - 52 % [employer] [facility] [employer] [facility] Work Phone: [phone] Hemoglobin (Bld) [Mass/Vol] 14.1 g/dL 13 - 18 g/dL [employer] [facility] [employer] [facility] Work Phone: [phone] Interpretation and review of laboratory results Abnormal [facility] Work Phone: Lymphocytes (Bld) [#/Vol] 1.3 10*3/uL 1 - 4.3 10*3/uL [facility] Work Phone: Lymphocytes/100 WBC (Bld) 10.0 % Low 20 - 40 % [facility] Work Phone: [phone] MCH (RBC) [Entitic mass] 29.8 pg 26 - 34 pg [employer] [facility] Work Phone: [phone] MCHC (RBC) [Mass/Vol] 33.8 % 32 - 36 % [employer] [facility] [employer] [facility] Work Phone: [phone] MCV (RBC) [Entitic vol] 88.2 fL 80 - 98 fL [employer] [facility] [employer] [facility] Work Phone: Monocytes (Bld) [#/Vol] 0.6 10*3/uL 0 - 0.8 10*3/uL [employer] [facility] [employer] [facility] Work Phone: [phone] Monocytes/100 WBC (Bld) 4.8 % 2 - 10 % [employer] [facility] [employer] [facility] Work Phone: [phone] Platelet distribution width (Bld) [Ratio] 14.1 % 11.5 - 14.5 % [facility] Work Phone: [phone] Platelet mean volume (Bld) [Entitic vol] 7.7 fL 7.4 - 12.4 fL [employer] [facility] [employer] [facility] Work Phone: [phone] Comment on above: MPV is a calculated measurement using platelet volume ratio. Platelets (Bld) [#/Vol] 232 10*3/uL 140 - 440 10*3/uL [employer] [facility] Work Phone: 1 RBC (Bld) [#/Vol] 4.72 10*6/uL 4.4 - 5.9 10*6/uL [facility] Work Phone: [phone] WBC (Bld) [#/Vol] 12.7 10*3/uL High 3.6 - 10.7 10*3/uL [facility] Work Phone: [phone] Test Performed by [facility], [address] [place], [place] [id number] [place] [address] LAB [facility] Work Phone: 1 D-Dimer, Innovanceon 10-23- 022 D-Dimer, Innovance 1.77 mg/L High <0.19-0.50 [facility] Comment on above: Result Comment: Inno mckinney D-Dimer values of <0.50 mg/L FEU can be used in combination with a pre-test probability model (e.g. Well's) to exclude pulmonary embolism (PE) disease, as well as an aid in the diagnosis of deep vein thrombosis (DVT). Performed By: #### L FT3, DDI2, BMP3 #### [facility] [address] [place] [address] D-Dimer, Quantitativeon 09-0 D-Dimer, Quant 1.77 mg/L High <0.19 - 0.50 [facility] Comment on above: Innovance D-Dimer va lues of <0.50 mg/L FEU can be used in combination with a pre-test probability model (e.g. Well's) to exclude pulmonary embolism (PE) disease, as well as an aid in the diagnosis of deep vein thrombosis (DVT). Interpretation and review of laboratory results Abnormal [facility] Test Performed by [facility], [address] LAB [facility] EKG 12 Leadon 10-23-2021 [facility] Test Date: 2021-10-22 Pat Name: GERALD STALEY Department: 2A4S Room: 465 Gender: M [employer] Maker: JENNIFER : 1960 Requested By: YAKOV LIGHT Order Number: [id number] Reading : Roney Ramos Measurements Intervals [place] Rate: 70 P: 10 DC: 172 QRS: -3 QRSD: 88 T: 5 QT: 392 QTc: 423 Interpretive Statements SINUS RHYTHM CONSIDER INFERIOR INFARCT Electronically Signed On 10-23-2021 8:11:36 EDT by Roney ENRIQUEZ CARDIOLOGY Roney Ramos MD - 10/23/2021 [facility] Test Date: 2021-10-22 Pat Name: GERALD STALEY Department: 2A4S Room: 465 Gender: M [employer] Maker: JENNFIER : 1960 Requested By: YAKOV LIGHT Order Number: [id number] Reading MD: Roney Ramos Measurements Intervals [place] Rate: 70 P: 10 DC: 172 QRS: -3 QRSD: 88 T: 5 QT: 392 QTc: 423 Interpretive Statements SINUS RHYTHM CONSIDER INFERIOR INFARCT Electronically Signed On 10-23-2021 8:11:36 EDT by Roney Ramos [facility] Work Phone: EKG 12 LeadOrdered By: Pan Ramos on 10-23-2021 [employer] [facility] [employer] [facility] Work Phone: Hemogram w/ Autodiffon 10-23 Abs Baso Cnt 0.0 10*3/uL Normal 0.0-0.2 [facility] Comment on above: Performed By: #### C RP2, VD25H #### [facility] [address] [place] [address] #### PCAL #### [facility] [address] [address] Abs Neutrophile Cnt 10.8 10*3/uL High 1.8-7.0 [facility] Comment on above: Performed By: #### C RP2, VD25H #### [facility] [address] [place] [address] #### PCAL #### [facility] [address] [place], [place] Basophils/100 WBC (Bld) 0.4 % Normal 0.0-2.0 [facility] Comment on above: Performed By: #### C RP2, VD25H #### [facility] [address] [place] [address] #### PCAL #### [facility] [address] [place], [place] Eosinophils (Bld) [#/Vol] 0.0 10*3/uL Normal 0.0-0.5 [facility] Comment on above: Performed By: #### C RP2, VD25H #### [facility] [address] [place] [address] #### PCAL #### [place] [address] [place], [place] Eosinophils/100 WBC (Bld) 0.0 % Low 1.0-6.0 [facility] Comment on above: Performed By: #### C RP2, VD25H #### [facility] [address] [place] [address] #### PCAL #### [address] Erythrocyte distribution width (RBC) [Ratio] 14.1 % Normal 11.5-14.5 [facility] Comment on above: Performed By: #### C RP2, VD25H #### [facility] [address] [place] [address] #### PCAL #### [address] Granulocytes/100 WBC (Bld) 84.8 % High 40.0-80.0 [facility] Comment on above: Performed By: #### C RP2, VD25H #### [facility] [address] [place] [address] #### PCAL #### [address] [place] [address] Hematocrit (Bld) [Volume fraction] 41.6 % Normal 40.0-52.0 [facility] Comment on above: Performed By: #### C RP2, VD25H #### [facility] [address] [place] [address] #### PCAL #### [place] [place] Hemoglobin (Bld) [Mass/Vol] 14.1 g/dL Normal 13.0-18.0 [facility] Comment on above: Performed By: #### C RP2, VD25H #### [facility] [address] [place] [address] #### PCAL #### [place] [place], [place] Lymphocytes (Bld) [#/Vol] 1.3 10*3/uL Normal 1.0-4.3 [facility] Comment on above: Performed By: #### C RP2, VD25H #### [place] [address] [place] [address] #### PCAL #### [place] [place], [place] Lymphocytes/100 WBC (Bld) 10.0 % Low 20.0-40.0 [facility] Comment on above: Performed By: #### C RP2, VD25H #### [place] [address] [place] [address] #### PCAL #### [place] [place] MCH (RBC) [Entitic mass] 29.8 pg Normal 26.0-34.0 [facility] Comment on above: Performed By: #### C RP2, VD25H #### [place] [address] [place] [address] #### PCAL #### [address] [place], [place] MCHC 33.8 % Normal 32.0-36.0 [facility] Comment on above: Performed By: #### C RP2, VD25H #### [place] [address] [place] [address] #### PCAL #### [address] [place] MCV (RBC) [Entitic vol] 88.2 fL Normal 80.0-98.0 [facility] Comment on above: Performed By: #### C RP2, VD25H #### [facility] [address] [place] [address] #### PCAL #### [facility] [address] [place], [place] Monocytes (Bld) [#/Vol] 0.6 10*3/uL Normal 0.0-0.8 [facility] Comment on above: Performed By: #### C RP2, VD25H #### [facility] [address] [place] [address] #### PCAL #### [address] Monocytes/100 WBC (Bld) 4.8 % Normal 2.0-10.0 [facility] Comment on above: Performed By: #### C RP2, VD25H #### [facility] [address] [place] [address] #### PCAL #### [place] [address] [place], [place] Platelet mean volume (Bld) [Entitic vol] 7.7 fL Normal 7.4-12.4 [facility] Comment on above: Result Comment: MPV is a calculated measurement using platelet volume ratio. Performed By: #### C RP2, VD25H #### [facility] [address] [place] [address] #### PCAL #### [address] [place], [place] Platelets (Bld) [#/Vol] 232 10*3/uL Normal 140-440 [facility] Comment on above: Performed By: #### C RP2, VD25H #### [facility] [address] [place] [address] #### PCAL #### [address] [address] [place], [place] RBC (Bld) [#/Vol] 4.72 10*6/uL Normal 4.40-5.90 [facility] Comment on above: Performed By: #### C RP2, VD25H #### [facility] [address] [place] [address] #### PCAL #### [facility] [address] [place] [address] WBC (Bld) [#/Vol] 12.7 10*3/uL High 3.6-10.7 [facility] Comment on above: Performed By: #### C RP2, VD25H #### [facility] [address] [place] [address] #### PCAL #### [facility] [address] [place] [address] Hepatic Functionon 2 ALP [Catalytic activity/Vol] 84 U/L Normal 38-126 [facility] Comment on above: Order Comment: Sligh t Hemolysis Performed By: #### L FT3, DDI2, BMP3 #### [facility] [address] [place] [address] ALT [Catalytic activity/Vol] 40 U/L Normal 0-49 [facility] Comment on above: Order Comment: Sligh t Hemolysis Result Comment: The ALT test is performed by an updated assay method. Please note that the reference intervals have been changed and are now sex specific. Performed By: #### L FT3, DDI2, BMP3 #### [facility] [address] [place] [address] AST [Catalytic activity/Vol] 57 U/L High 15-46 [facility] Comment on above: Order Comment: Sligh t Hemolysis Performed By: #### L FT3, DDI2, BMP3 #### [facility] [address] [place] [address] Bilirubin [Mass/Vol] 1.2 mg/dL Normal 0.2-1.3 [facility] Comment on above: Order Comment: Sligh t Hemolysis Performed By: #### L FT3, DDI2, BMP3 #### [facility] [address] [place] [address] Bilirubin.indirect [Mass/Vol] 0.0 mg/dL Normal 0.0-0.3 [facility] Comment on above: Order Comment: Sligh t Hemolysis Performed By: #### L FT3, DDI2, BMP3 #### [facility] [address] [place] [address] Protein [Mass/Vol] 7.5 g/dL Normal 6.3-8.2 [facility] Comment on above: Order Comment: Sligh t Hemolysis Performed By: #### L FT3, DDI2, BMP3 #### [facility] [address] [place] [address] Albumin [Mass/Vol] 4.1 g/dL Normal 3.5-5.0 [facility] Comment on above: Order Comment: Sligh t Hemolysis Performed By: #### L FT3, DDI2, BMP3 #### [facility] [address] [place] [address] Hepatic Function Panelon Albumin [Mass/Vol] 4.1 g/dL 3.5 - 5 g/dL [facility] ALP (Bld) [Catalytic activity/Vol] 84 U/L 38 - 126 U/L [facility] ALT [Catalytic activity/Vol] 40 U/L 0 - 49 U/L [facility] Comment on above: The ALT test is perf ormed by an updated assay method. Please note that the reference intervals have been changed and are now sex specific. AST [Catalytic activity/Vol] 57 U/L High 15 - 46 U/L [facility] Bilirubin [Mass/Vol] 1.2 mg/dL 0.2 - 1 .3 mg/dL [facility] Bilirubin.indirect [Mass/Vol] 0.0 mg/dL 0 - 0.3 mg/dL [facility] Free PSA/Total PSA [Mass fraction] 7.5 g/dL 6.3 - 8.2 g/dL [facility] No Panel Informationon 10-23 Interpretation and review of laboratory results Abnormal [facility] Test Performed by [facility], [address] [place], [place] [address] Slight Hemolysis [facility] Troponin Ion 10-23-2021 Troponin I.cardiac [Mass/Vol] ng/mL Normal 0.000-0.034 [facility] Comment on above: Result Comment: . Performed By: #### T ROPN #### [place] [address] [place] [address] C-Reactive Proteinon CRP [Mass/Vol] 165.4 mg/L High 0.0-9.9 [facility] Comment on above: Result Comment: . Performed By: #### C RP2, VD25H #### [place] [address] [place] [address] #### PCAL #### [address] [address] CRP [Mass/Vol] 165.4 mg/L High 0 - 9.9 mg/L [facility] Work Phone: [phone] Comment on above: . Interpretation and review of laboratory results Abnormal [facility] Work Phone: Test Performed by [place] [address] [place], [place] [address] [facility] Work Phone: [phone] Procalcitoninon 10-22-2021 Procalcitonin 0.15 ng/mL High 0.00-0.[address] [facility] Comment on above: Performed By: #### C RP2, VD25H #### [place] [address] [place] [address] #### PCAL #### [address] [address] Interpretation See Below [facility] Work Phone: [phone] Comment on above: PCT <0.50 = Low risk of severe sepsis and/or septic shock. PCT >2.00 = High risk of severe sepsis and/or septic shock. Interpretation and review of laboratory results Abnormal [facility] Work Phone: [phone] Procalcitonin 0.15 ng/mL High 0 - 0.09 ng/mL [facility] Work Phone: Test Performed by [facility], [address] [place] [id number] [place] [address] [facility] Work Phone: [phone] Interpretation See Below Normal [facility] Comment on above: Result Comment: PCT <0.50 = Low risk of severe sepsis and/or septic shock. PCT >2.00 = High risk of severe sepsis and/or septic shock. Performed By: #### C RP2, VD25H #### [facility] [address] [place] [address] #### PCAL #### [facility] [address] [place] [address] Troponinon 10-22-2021 Troponin I.cardiac [Mass/Vol] ng/mL 0 - 0.034 ng/mL [facility] Work Phone: Comment on above: . Test Performed by [facility], [address] [place], [place] [id number] [place] [address] LAB [facility] Work Phone: Vit D 25-OH, Totalon 022 Vit D 25-OH, Total 49 ng/mL Normal 30-100 [facility] Comment on above: Result Comment: Ther apy is based on measurement of Total 25- OHD with the following classification levels: Less than 20 ng/mL: Indicative of Vit D deficiency 20-30 ng/mL: Suggests Vit D insufficiency Optimal: Greater than or equal to 30 ng/mL Test performed by [employer], measuring Total Vitamin D, not individual fractions. Performed By: #### C RP2, VD25H #### [facility] [address] [place] [address] #### PCAL #### [address] [address] [place] [address] Vitamin D 25 Hydroxyon 10-22 Vit D, 25-Hydroxy 49 ng/mL 30 - 100 ng/mL [facility] Work Phone: Comment on above: Therapy is based on measurement of Total 25-OHD with the following classification levels: Less than 20 ng/mL: Indicative of Vit D deficiency 20-30 ng/mL: Suggests Vit D insufficiency Optimal: Greater than or equal to 30 ng/mL Test performed by [employer], measuring Total Vitamin D, not individual fractions. Test Performed by [facility], [address] [place], [place] [id number] [place] [address] LAB [facility] Work Phone: Absolute lymphocyte counton 10-21-2021 Lymphocytes Auto (Unsp spec) [#/Vol] 1.99 10*3/uL 0.83-4.51 [facility] Work Phone: Basophil percentageon 2021 Basophils/100 WBC (Bld) 0.2 % 0-1 [facility] Work Phone: Chloride [Moles/Vol] 99 mmol/L 98-107 [facility] Work Phone: Eosinophils/100 WBC (Bld) 0.2 % 0-5 [facility] Work Phone: Glucose [Mass/Vol] 113 mg/dL 74-106 [facility] Work Phone: Comment on above: Fasting Glucose resu lt from 100 to 125 mg/dL suggests IMPAIRED HOMEOSTASIS per A.D.A. criteria. Neutrophils (Bld) [#/Vol] 8.1 10*3/uL 2.0-7.7 [facility] Work Phone: Neutrophils/100 WBC (Bld) 68.5 % 47-70 [facility] Work Phone: Potassium [Moles/Vol] 3.7 mmol/L 3.5-5.1 [facility] Work Phone: Sodium [Moles/Vol] 135 mmol/L 136-145 [facility] Work Phone: WBC (Bld) [#/Vol] 11.8 10*3/uL 4.4-11.0 [facility] Work Phone: Blood erythrocytes count (nu mber/volume)on 10-21-2021 RBC (Bld) [#/Vol] 4.81 10*6/uL 4.6-6.2 [facility] Work Phone: Blood hemoglobin measurement (mass/volume)on 10-21-2021 Hemoglobin (Bld) [Mass/Vol] 14.6 g/dL 13.0-16.5 [facility] Work Phone: Blood lymphocytes/100 leukoc yteson 10-21-2021 Lymphocytes/100 WBC (Bld) 16.9 % 19-41 [facility] Work Phone: Blood manual differential co mment interpretation (narrative result)on 10-21-2021 Manual differential comment Tim (Bld) [Interp] SCANNED [facility] Work Phone: Blood monocytes/100 leukocyt eson 10-21-2021 Monocytes/100 WBC (Bld) 13.6 % 0-10 [facility] Work Phone: Blood platelet mean volumeon 10-21-2021 Platelet mean volume (Bld) [Entitic vol] 9.2 fL 6.2-12.0 [facility] Work Phone: Determination of erythrocyte mean corpuscular volume (MCV)on 10-21-2021 MCV (RBC) [Entitic vol] 90.0 fL 80-94 [facility] Work Phone: Hematocrit Auto (Bld) [Volum e fraction]on 10-21-2021 Hematocrit (Bld) [Volume fraction] 43.3 % 40-54 [facility] Work Phone: Laboratory - Chemistry and C hemistry - challengeon 10-21-2021 CO2 [Moles/Vol] 28.0 mmol/L 21.0-32.0 [facility] Work Phone: Urea nitrogen/Creatinine [Mass ratio] 14.6 mg/mg 10-20 [facility] Work Phone: Laboratory - Hematology and Cell countson 10-21-2021 Erythrocyte distribution width (RBC) [Entitic vol] 44.4 fL 35.1-43.9 [facility] Work Phone: Erythrocyte distribution width (RBC) [Ratio] 13.8 % 11.6-14.6 [facility] Work Phone: Immature granulocytes/100 WBC (Bld) 0.600 % 0.0-0.9 [facility] Work Phone: Comment on above: IG% - Immature Granu locytes (promyelocytes, myelocytes and metamyelocytes) > 1% indicates that a LEFT SHIFT is Present. MCH (RBC) [Entitic mass] 30.4 pg 27.0-32.0 [facility] Work Phone: [phone] Nucleated RBC/100 WBC (Bld) [Ratio] 0 % 0-5 [facility] Work Phone: [phone] MCHC Auto (RBC) [Mass/Vol]on 10-21-2021 MCHC (RBC) [Mass/Vol] 33.7 g/dL 32-36 [facility] Work Phone: [phone] No Panel Informationon 10-21 D-Dimer Quantitative (PE/DVT) 1.36 FEU/ug/m 0.27-0.49 [facility] Work Phone: [phone] Comment on above: D-Dimer ELEVATED (>0 .49): Additional studies and clinicalassessments are indicated to conclude diagnosis of:Deep Vein Thrombosis (DVT) or Pulmonary Embolism (PE)CRITICAL VALUE VERIFIED. CALLED TO JUVENTINO SCHAEFERRLY10/21/21 0954 Criselda Tang.RESULTS READ BACK BY SAME . Estimated Creatinine Clearance Calc 46.36 ml/min [facility] Work Phone: [phone] Estimated GFR (MDRD) Amer 61 mL/min >60 [facility] Work Phone: [phone] Comment on above: GFR Calc Estimated GFR (MDRD) Non-Af Amer 50 mL/min >60 [facility] Work Phone: [phone] Comment on above: Non- GFR Calc Troponin I High Sensitivity 5 pg/mL 3.0-78.0 [facility] Work Phone: [phone] Comment on above: Please Note: New Ruthy t Units and Gender Specific Reference Ranges. For more information see Policy Stat Procedure [place] High Sensitivity Troponin (TNIH) and attachments. Platelets bldon 10-21-2021 Platelets (Bld) [#/Vol] 163 10*3/uL 150-450 [facility] Work Phone: [phone] Review by pathologiston Pathologist review Tim (Unsp spec) [Interp] May foll [facility] Work Phone: Serum or plasma calcium ezra urement (mass/volume)on 10-21-2021 Calcium [Mass/Vol] 8.8 mg/dL 8.5-10.1 [facility] Work Phone: Serum or plasma creatinine m easurement (mass/volume)on 10-21-2021 Creatinine [Mass/Vol] 1.51 mg/dL 0.70-1.30 [facility] Work Phone: Comment on above: The validity of the calculated GFR & GFRAA in patients over 70 years has not been determined. Clinical correlation is essential. Serum or plasma urea nitroge n measurement (mass/volume)on 10-21-2021 Urea nitrogen [Mass/Vol] 22 mg/dL 7-18 [facility] Work Phone: Thin prep Papanicolaou smear with manual screeningon 10-21-2021 Thin prep Papanicolaou smear with manual screening 8 5-15 [facility] Work Phone: Absolute lymphocyte counton 10-08-2021 Lymphocytes Auto (Unsp spec) [#/Vol] 2.89 10*3/uL 0.83-4.51 [facility] Work Phone: Basophil percentageon 2021 Basophils/100 WBC (Bld) 0.4 % 0-1 [facility] Work Phone: Chloride [Moles/Vol] 110 mmol/L 98-107 [facility] Work Phone: Eosinophils/100 WBC (Bld) 0.5 % 0-5 [facility] Work Phone: Glucose [Mass/Vol] 107 mg/dL 74-106 [facility] Work Phone: Comment on above: Fasting Glucose resu lt from 100 to 125 mg/dL suggests IMPAIRED HOMEOSTASIS per A.D.A. criteria. Neutrophils (Bld) [#/Vol] 6.2 10*3/uL 2.0-7.7 [facility] Work Phone: Neutrophils/100 WBC (Bld) 60.6 % 47-70 [facility] Work Phone: [phone] Potassium [Moles/Vol] 3.6 mmol/L 3.5-5.1 [facility] Work Phone: [phone] Comment on above: Slight Hemolysis, Re sult may be falsely increased. Sodium [Moles/Vol] 141 mmol/L 136-145 [facility] Work Phone: [phone] WBC (Bld) [#/Vol] 10.2 10*3/uL 4.4-11.0 [facility] Work Phone: [phone] Blood erythrocytes count (nu mber/volume)on 10-08-2021 RBC (Bld) [#/Vol] 5.10 10*6/uL 4.6-6.2 [facility] Work Phone: [phone] Blood hemoglobin measurement (mass/volume)on 10-08-2021 Hemoglobin (Bld) [Mass/Vol] 15.2 g/dL 13.0-16.5 [facility] Work Phone: [phone] Blood lymphocytes/100 leukoc yteson 10-08-2021 Lymphocytes/100 WBC (Bld) 28.3 % 19-41 [facility] Work Phone: [phone] Blood monocytes/100 leukocyt eson 10-08-2021 Monocytes/100 WBC (Bld) 9.6 % 0-10 [facility] Work Phone: [phone] Blood platelet mean volumeon 10-08-2021 Platelet mean volume (Bld) [Entitic vol] 9.3 fL 6.2-12.0 [facility] Work Phone: [phone] Determination of erythrocyte mean corpuscular volume (MCV)on 10-08-2021 MCV (RBC) [Entitic vol] 88.4 fL 80-94 [facility] Work Phone: [phone] Hematocrit Auto (Bld) [Volum e fraction]on 10-08-2021 Hematocrit (Bld) [Volume fraction] 45.1 % 40-54 [facility] Work Phone: [phone] Laboratory - Chemistry and C hemistry - challengeon 10-08-2021 CO2 [Moles/Vol] 24.0 mmol/L 21.0-32.0 [facility] Work Phone: [phone] Urea nitrogen/Creatinine [Mass ratio] 19.0 mg/mg 10-20 [facility] Work Phone: [phone] Laboratory - Hematology and Cell countson 10-08-2021 Erythrocyte distribution width (RBC) [Entitic vol] 43.4 fL 35.1-43.9 [facility] Work Phone: [phone] Erythrocyte distribution width (RBC) [Ratio] 13.5 % 11.6-14.6 [facility] Work Phone: [phone] Immature granulocytes/100 WBC (Bld) 0.600 % 0.0-0.9 [facility] Work Phone: [phone] Comment on above: IG% - Immature Granu locytes (promyelocytes, myelocytes and metamyelocytes) > 1% indicates that a LEFT SHIFT is Present. MCH (RBC) [Entitic mass] 29.8 pg 27.0-32.0 [facility] Work Phone: [phone] Nucleated RBC/100 WBC (Bld) [Ratio] 0 % 0-5 [facility] Work Phone: [phone] Laboratory - Microbiology an d Antimicrobial susceptibilityon 10-08-2021 SARS-CoV-2 (COVID-19) RNA LINDA+probe Ql (Unsp spec) Not detected Not Detect [facility] Work Phone: Comment on above: Normal Reference Ran ge: Not DetectedMethod:(RT-PCR) real-time reverse transcriptase PCRLuminex EVELYN Instrument*The Food and Drug Administration (FDA) has issued an Emergency Use Authorization (EAU) for the EVELYN SARS-CoV-2 Assay for the rapid detection of the virus that causes COVID-19. This test has been validated, but the FDAs independent review of this validation is pending.*Negative results do not preclude infection and should not be used as the sole basis for treatment or patient management. Optimum specimen types and timing for peak viral levels during infections caused by SARS-CoV-2 have not been determined. Collection of multiple specimens from the same patient may be necessary to detect the virus. The possibility of a false negative result should be considered if the patient has clinical presentation or has had recent exposure. MCHC Auto (RBC) [Mass/Vol]on 10-08-2021 MCHC (RBC) [Mass/Vol] 33.7 g/dL 32-36 [facility] Work Phone: No Panel Informationon 10-08 Estimated Creatinine Clearance Calc 49.30 ml/min [facility] Work Phone: [phone] Estimated GFR (MDRD) Amer 65 mL/min >60 [facility] Work Phone: Comment on above: GFR Calc Estimated GFR (MDRD) Non-Af Amer 54 mL/min >60 [facility] Work Phone: Comment on above: Non- GFR Calc Thyroid Stimulating Hormone (TSH) 1.37 uIU/mL 0.358-3.74 [facility] Work Phone: Troponin I High Sensitivity 5 pg/mL 3.0-78.0 [facility] Work Phone: Comment on above: Please Note: New Ruthy t Units and Gender Specific Reference Ranges. For more information see Policy Stat Procedure [place] High Sensitivity Troponin (TNIH) and attachments. Platelets bldon 10-08-2021 Platelets (Bld) [#/Vol] 242 10*3/uL 150-450 [facility] Work Phone: Serum or plasma calcium ezra urement (mass/volume)on 10-08-2021 Calcium [Mass/Vol] 9.1 mg/dL 8.5-10.1 [facility] Work Phone: [phone] Serum or plasma creatinine m easurement (mass/volume)on 10-08-2021 Creatinine [Mass/Vol] 1.42 mg/dL 0.70-1.30 [facility] Work Phone: Comment on above: The validity of the calculated GFR & GFRAA in patients over 70 years has not been determined. Clinical correlation is essential. Serum or plasma urea nitroge n measurement (mass/volume)on 10-08-2021 Urea nitrogen [Mass/Vol] 27 mg/dL 09-02 [facility] Work Phone: Thin prep Papanicolaou smear with manual screeningon 10-08-2021 Thin prep Papanicolaou smear with manual screening 06-30 [facility] Work Phone: MRI SHOULDER W/O CON LTon MRI SHOULDER W/O CON LT MRI SHOULDER W/O CON LT Ordering Physician: Teo Kaminski MRI LEFT SHOULDER: Clinical Statement: Osteoarthritis, rotator cuff tear/rupture shoulder. Previous surgery. Comparison: Left shoulder MRI from [facility] orth[facility] dated 04/30/2015. TECHNIQUE: Long and short axis fat and water weighted MR images of the left shoulder were obtained without contrast. FINDINGS: There are postsurgical changes of rotator cuff repair surgery again shown with bilateral absorbable anchors in the greater tuberosity. There is infraspinatus tendinosis. The rotator cuff is otherwise intact with no tear visualized. Moderate atrophy and fatty replacement is again shown in the teres minor muscle superiorly. The remaining muscles are normal in signal and morphology. No bursitis. There are postsurgical changes again noted at the acromioclavicular joint with foci of micrometallic susceptibility artifact. There are degenerative changes at the glenohumeral joint with thinning of the articular cartilage and minimal humeral head spurring. There is no glenohumeral joint effusion. There is degenerative irregularity of the superior labrum. There is linear T2 signal hyperintensity again shown within the posterior labrum in keeping with a chronic tear. No paralabral cyst. The intra-articular portion of the biceps tendon is not well visualized. The portion within the bicipital groove is normal in thickness and signal. No fluid within the biceps tendon sheath. Marrow signal is normal with no marrow edema, fracture or abnormal marrow replacement process. IMPRESSION: 1. Infraspinatus tendinosis. No recurrent rotator cuff tear. 2. Poor visualization of the intra-articular biceps tendon. The portion of the biceps tendon in the bicipital groove appears normal. 3. Glenohumeral joint osteoarthritis with chronic, scarred posterior labral tear. 4. Chronic atrophy and fatty replacement of the teres minor. This report was electronically signed by Morena Xie MD 06/11/2021 4:47 PM Reported By: MORENA XIE M.D. Signed By: MORENA XIE M.D. [facility] MRI SHOULDER W/O CON RTon MRI SHOULDER W/O CON RT MRI SHOULDER W/O CON RT Ordering Physician: Teo Kaminski MRI RIGHT SHOULDER: Clinical Statement: Osteoarthritis, rotator cuff tear/rupture. Previous subacromial decompression and rotator cuff repair. Comparison: Right shoulder MRI from [facility] orth[facility] dated 04/15/2017. Right shoulder radiographs from [facility] orth[facility] dated 12/29/2016 TECHNIQUE: Long and short axis fat and water weighted MR images were obtained without contrast. FINDINGS: Postsurgical changes of rotator cuff repair are again shown with bioabsorbable anchor again noted anteriorly within the greater tuberosity. There is mild supraspinatus, infraspinatus and subscapularis tendinosis appearing similar to the previous study. The teres minor tendon is normal. No rotator cuff tear. The muscles are normal in signal and morphology. No subacromial/subdeltoid or subcoracoid bursitis. Postsurgical changes of acromioplasty and distal clavicular resection are again noted. There is no glenohumeral joint effusion. There is degenerative irregularity of the anterior labrum. There is a linear defect between the anterior superior labrum and adjacent glenoid in keeping with a sublabral foramen. Chronic blunted morphology of the superior labrum. The intra-articular portion of the biceps tendon is poorly visualized. The biceps tendon appears diminutive within the bicipital groove. Marrow signal appears normal with no edema, fracture or abnormal marrow replacement process. IMPRESSION: 1. Intact rotator cuff repair with rotator cuff tendinosis as above appearing similar to the previous exam. No evidence of a rotator cuff tear. 2. Diminutive appearance of the biceps tendon within the bicipital groove. 3. Chronic postsurgical changes at the AC joint. This report was electronically signed by Morena Xie MD 06/11/2021 4:35 PM Reported By: MORENA XIE M.D. Signed By: MORENA XIE M.D. [facility] US SCREENING FOR AAAon 05-29 [facility] FLUOROSCOPY IN OR/PAIN MGTon 04-18-2021 FLUOROSCOPY IN OR/PAIN MGT FLUOROSCOPY IN OR/PAIN MGT, FLUOROSCOPY IN OR/PAIN MGT Ordering Physician: Allie Ceballos DO 04/18/2021 7:39 AM BILATERAL SHOULDER FLUOROSCOPY Clinical Statement: Shoulder pain FINDINGS: 13 seconds fluoroscopy time was utilized by Dr. Ceballos. C-arm images of both shoulders were obtained. IMPRESSION: 13 seconds fluoroscopy time utilized by Dr. Ceballos. This report was electronically signed by Errol Alex MD 04/18/2021 10:42 AM Reported By: ERROL ALEX M.D. Signed By: ERROL ALEX M.D. [facility] Vital Signs Date Time Vital Sign Value Performing Clinician Kike anderson 04-27-2024 11:07-0400 Body mass index (BMI) [Ratio] 33.99 kg/m2 Errol Cary MD Work Phone: [facility] 04-27-2024 11:07-0400 Body weight 89.81 kg Errol Cary MD Work Phone: [facility] 04-27-2024 11:07-0400 Diastolic blood pressure 72 mm[Hg] Errol Cary MD Work Phone: [facility] 04-27-2024 11:07-0400 Heart rate 47 /min Errol Cary MD Work Phone: [facility] 04-27-2024 11:07-0400 SaO2% (BldA) [Mass fraction] 100 % Errol Cary MD Work Phone: [facility] 04-27-2024 11:07-0400 Systolic blood pressure 104 mm[Hg] Errol Cary MD Work Phone: [facility] 04-11-2024 14:00-0500 Body mass index (BMI) [Ratio] 34.5 kg/m2 Ria Pulido BICYCLE SUBASSEMBLER.WAREHOUSE DISTRIBUTION MANAGER Work Phone: [facility] 04-11-2024 14:00-0500 Body weight 91.17 kg Ria Pulido BICYCLE SUBASSEMBLER.WAREHOUSE DISTRIBUTION MANAGER Work Phone: [facility] 04-11-2024 14:00-0500 Diastolic blood pressure 86 mm[Hg] Ria Allenir BICYCLE SUBASSEMBLER.WAREHOUSE DISTRIBUTION MANAGER Work Phone: [facility] 04-11-2024 14:00-0500 Heart rate 72 /min Ria Duc BICYCLE SUBASSEMBLER.WAREHOUSE DISTRIBUTION MANAGER Work Phone: [facility] 04-11-2024 14:00-0500 SaO2% (BldA) [Mass fraction] 100 % Ria Duc BICYCLE SUBASSEMBLER.WAREHOUSE DISTRIBUTION MANAGER Work Phone: [facility] 04-11-2024 14:00-0500 Systolic blood pressure 129 mm[Hg] Ria Duc BICYCLE SUBASSEMBLER.WAREHOUSE DISTRIBUTION MANAGER Work Phone: [facility] 02-03-2024 14:33-0500 Body height 162.6 cm Nahun Gustafson MD Work Phone: [facility] 02-03-2024 14:33-0500 Body mass index (BMI) [Ratio] 33.64 kg/m2 Nahun Gustafson MD Work Phone: [facility] 02-03-2024 14:33-0500 Body weight 88.91 kg Nahun Gustafson MD Work Phone: [facility] 02-03-2024 14:33-0500 Diastolic blood pressure 82 mm[Hg] Nahun Gustafson MD Work Phone: [facility] 02-03-2024 14:33-0500 Systolic blood pressure 120 mm[Hg] Nahun Gustafson MD Work Phone: [facility] 02-01-2024 17:15-0500 Diastolic blood pressure 88 mm[Hg] Nahun Gustafson MD Work Phone: [facility] 02-01-2024 17:15-0500 Heart rate 57 /min Nahun Gustafson MD Work Phone: [facility] 02-01-2024 17:15-0500 Respiratory rate 20 /min Nahun Gustafson MD Work Phone: [facility] 02-01-2024 17:15-0500 SaO2% (BldA) [Mass fraction] 98 % Nahun Gustafson MD Work Phone: [facility] 02-01-2024 17:15-0500 Systolic blood pressure 134 mm[Hg] Nahun Gustafson MD Work Phone: [facility] 02-01-2024 16:52-0500 Body temperature 97.5 [degF] Nahun Gustafson MD Work Phone: [facility] 02-01-2024 14:41-0500 Body mass index (BMI) [Ratio] 34.81 kg/m2 Nahun Gustafson MD Work Phone: [facility] 02-01-2024 14:41-0500 Body weight 92 kg Nahun Gustafson MD Work Phone: [facility] 01-05-2024 09:16-0500 Diastolic blood pressure 100 mm[Hg] David Fontenot MD Work Phone: [facility] 01-05-2024 09:16-0500 Heart rate 60 /min David Fontenot MD Work Phone: [facility] 01-05-2024 09:16-0500 Respiratory rate 16 /min David Fontenot MD Work Phone: [facility] 01-05-2024 09:16-0500 SaO2% (BldA) [Mass fraction] 98 % David Fontenot MD Work Phone: [facility] 01-05-2024 09:16-0500 Systolic blood pressure 155 mm[Hg] David Fonteont MD Work Phone: [facility] 01-05-2024 09:00-0500 Body temperature 97 [degF] David Fontenot MD Work Phone: [facility] 01-05-2024 08:24-0500 Body height 162.6 cm David Fontenot MD Work Phone: [facility] 01-05-2024 08:24-0500 Body mass index (BMI) [Ratio] 33.3 kg/m2 David Fontenot MD Work Phone: [facility] 01-05-2024 08:24-0500 Body weight 88 kg David Fontenot MD Work Phone: [facility] 12-09-2023 13:29-0400 Body height 164.5 cm Nahun Gustafson MD Work Phone: [facility] 12-09-2023 13:29-0400 Body mass index (BMI) [Ratio] 32.53 kg/m2 Nahun Gustafson MD Work Phone: [facility] 12-09-2023 13:29-0400 Body weight 88 kg Nahun Gustafson MD Work Phone: [facility] 12-09-2023 13:29-0400 Diastolic blood pressure 89 mm[Hg] Nahun Gustafson MD Work Phone: [facility] 12-09-2023 13:29-0400 Heart rate 65 /min Nahun Gustafson MD Work Phone: [facility] 12-09-2023 13:29-0400 Systolic blood pressure 138 mm[Hg] Nahun Gustafson MD Work Phone: [facility] 11-25-2023 10:21-0400 Body height 167.6 cm Gia Kalka PA-C Work Phone: [facility] 11-25-2023 10:21-0400 Body mass index (BMI) [Ratio] 30.83 kg/m2 Gia Kalka PA-C Work Phone: [facility] 11-25-2023 10:21-0400 Body weight 86.64 kg Gia Kalka PA-C Work Phone: [facility] 11-25-2023 10:21-0400 Diastolic blood pressure 84 mm[Hg] Gia Kalka PA-C Work Phone: [facility] 11-25-2023 10:21-0400 Heart rate 54 /min Gia Kalka PA-C Work Phone: [facility] 11-25-2023 10:21-0400 Systolic blood pressure 116 mm[Hg] Gia Ventura PA-C Work Phone: [facility] 10-05-2023 13:32-0400 Body height 167.6 cm Yakov Etienne MD Work Phone: [facility] 10-05-2023 13:32-0400 Body mass index (BMI) [Ratio] 30.44 kg/m2 Yakov Etienne MD Work Phone: [facility] 10-05-2023 13:32-0400 Body temperature 97.59 [degF] Yakov Etienne MD Work Phone: [facility] 10-05-2023 13:32-0400 Body weight 85.55 kg Yakov Etienne MD Work Phone: [facility] 10-05-2023 13:32-0400 Diastolic blood pressure 90 mm[Hg] Yakov Etienne MD Work Phone: [facility] 10-05-2023 13:32-0400 Heart rate 56 /min Yakov Etienne MD Work Phone: [facility] 10-05-2023 13:32-0400 SaO2% (BldA) [Mass fraction] 98 % Yakov Etienne MD Work Phone: [facility] 10-05-2023 13:32-0400 Systolic blood pressure 130 mm[Hg] Yakov Etienne MD Work Phone: [facility] 09-29-2023 06:57-0400 Body mass index (BMI) [Ratio] 30.18 kg/m2 Teo Gordy BICYCLE SUBASSEMBLER.WAREHOUSE DISTRIBUTION MANAGER Work Phone: [facility] 09-29-2023 06:57-0400 Body weight 84.82 kg Teo Gordy BICYCLE SUBASSEMBLER.WAREHOUSE DISTRIBUTION MANAGER Work Phone: [facility] 09-29-2023 06:57-0400 Diastolic blood pressure 97 mm[Hg] Teo Gordy BICYCLE SUBASSEMBLER.WAREHOUSE DISTRIBUTION MANAGER Work Phone: [facility] 09-29-2023 06:57-0400 Heart rate 54 /min Teo Gordy BICYCLE SUBASSEMBLER.WAREHOUSE DISTRIBUTION MANAGER Work Phone: [facility] 09-29-2023 06:57-0400 Respiratory rate 20 /min Teo Gordy BICYCLE SUBASSEMBLER.WAREHOUSE DISTRIBUTION MANAGER Work Phone: [facility] 09-29-2023 06:57-0400 SaO2% (BldA) [Mass fraction] 95 % Teo Gordy BICYCLE SUBASSEMBLER.WAREHOUSE DISTRIBUTION MANAGER Work Phone: [facility] 09-29-2023 06:57-0400 Systolic blood pressure 151 mm[Hg] Teo Gordy BICYCLE SUBASSEMBLER.WAREHOUSE DISTRIBUTION MANAGER Work Phone: [facility] 04-25-2023 15:29-0500 Body temperature 96.8 [degF] [facility] 04-25-2023 15:29-0500 Diastolic blood pressure 82 mm[Hg] [facility] 04-25-2023 15:29-0500 Heart rate 59 /min [facility] 04-25-2023 15:29-0500 Respiratory rate 14 /min [facility] 04-25-2023 15:29-0500 SaO2% (BldA) [Mass fraction] 97 % [facility] 04-25-2023 15:29-0500 Systolic blood pressure 130 mm[Hg] [facility] 04-25-2023 12:57-0500 Body height 167.64 cm [facility] 04-25-2023 12:57-0500 Body mass index (BMI) [Ratio] 31.6 kg/m2 [facility] 04-25-2023 12:57-0500 Body weight 88.72 kg [facility] 12-03-2022 13:24-0400 Body weight 85.73 kg Lauren Steen BICYCLE SUBASSEMBLER.WAREHOUSE DISTRIBUTION MANAGER Work Phone: [facility] [facility] 12-03-2022 13:24-0400 Diastolic blood pressure 82 mm[Hg] Lauren Steen BICYCLE SUBASSEMBLER.WAREHOUSE DISTRIBUTION MANAGER Work Phone: [facility] 12-03-2022 13:24-0400 Heart rate 45 /min Lauren Haagen BICYCLE SUBASSEMBLER.WAREHOUSE DISTRIBUTION MANAGER Work Phone: [facility] 12-03-2022 13:24-0400 Respiratory rate 16 /min Lauren Haagen BICYCLE SUBASSEMBLER.WAREHOUSE DISTRIBUTION MANAGER Work Phone: [facility] 12-03-2022 13:24-0400 SaO2% (BldA) [Mass fraction] 98 % Lauren Haagen BICYCLE SUBASSEMBLER.WAREHOUSE DISTRIBUTION MANAGER Work Phone: [facility] 12-03-2022 13:24-0400 Systolic blood pressure 124 mm[Hg] Lauren Haagen BICYCLE SUBASSEMBLER.WAREHOUSE DISTRIBUTION MANAGER Work Phone: [facility] 11-10-2022 07:10-0400 Body weight 84.19 kg Gageraven Ceballos DO Work Phone: [facility] 11-10-2022 07:10-0400 Diastolic blood pressure 77 mm[Hg] Allie Ceballos Work Phone: [facility] 11-10-2022 07:10-0400 Heart rate 51 /min Allie Tucker DO Work Phone: [facility] 11-10-2022 07:10-0400 SaO2% (BldA) [Mass fraction] 98 % Allie Tucker RIVERA Work Phone: [facility] 11-10-2022 07:10-0400 Systolic blood pressure 129 mm[Hg] Allie Ceballos DO Work Phone: [facility] 08-12-2022 08:56-0400 Body height 167.6 cm Yakov Etienne MD Work Phone: [facility] 08-12-2022 08:56-0400 Body temperature 97.3 [degF] Yakov Etienne MD Work Phone: [facility] 08-12-2022 08:56-0400 Body weight 88.91 kg Yakov Etienne MD Work Phone: [facility] 08-12-2022 08:56-0400 Diastolic blood pressure 64 mm[Hg] Yakov Etienne MD Work Phone: [facility] 08-12-2022 08:56-0400 Heart rate 57 /min Yakov Etienne MD Work Phone: [facility] 08-12-2022 08:56-0400 SaO2% (BldA) [Mass fraction] 98 % Yakov Etienne MD Work Phone: [facility] 08-12-2022 08:56-0400 Systolic blood pressure 110 mm[Hg] Yakov Etienne MD Work Phone: [facility] 06-30-2022 15:11-0400 Body weight 91.63 kg Yonathan Barajas MD Work Phone: [facility] 06-30-2022 15:11-0400 Diastolic blood pressure 80 mm[Hg] Yonathan Barajas MD Work Phone: [facility] 06-30-2022 15:11-0400 Heart rate 52 /min Yonathan Barajas MD Work Phone: [facility] 06-30-2022 15:11-0400 SaO2% (BldA) [Mass fraction] 99 % Yonathan Barajas MD Work Phone: [facility] 06-30-2022 15:11-0400 Systolic blood pressure 110 mm[Hg] Yonathan Barajas MD Work Phone: [facility] 06-09-2022 12:06-0400 Diastolic blood pressure 78 mm[Hg] Glen Brown MD Work Phone: [facility] 06-09-2022 12:06-0400 Heart rate 72 /min Glen Brown MD Work Phone: [facility] 06-09-2022 12:06-0400 Respiratory rate 16 /min Glen Brown MD Work Phone: [facility] 06-09-2022 12:06-0400 SaO2% (BldA) [Mass fraction] 99 % Glen Brown MD Work Phone: [facility] 06-09-2022 12:06-0400 Systolic blood pressure 140 mm[Hg] Glen Brown MD Work Phone: [facility] 06-09-2022 11:49-0400 Body temperature 97.11 [degF] Glen Brown MD Work Phone: [facility] 06-09-2022 11:09-0400 Body height 165.1 cm Glen Brown MD Work Phone: [facility] 06-09-2022 11:09-0400 Body mass index (BMI) [Ratio] 33.78 kg/m2 Glen Brown MD Work Phone: [facility] 06-09-2022 11:09-0400 Body weight 92.08 kg Glen Brown MD Work Phone: [facility] 06-02-2022 13:38-0400 Body height 165.1 cm Gia Kalka PA-C Work Phone: [facility] 06-02-2022 13:38-0400 Body weight 96.16 kg Gia Kalka PA-C Work Phone: [facility] 06-02-2022 13:38-0400 Diastolic blood pressure 84 mm[Hg] Gia Kalka PA-C Work Phone: [facility] 06-02-2022 13:38-0400 Heart rate 100 /min Gia Kalka PA-C Work Phone: [facility] 06-02-2022 13:38-0400 Systolic blood pressure 120 mm[Hg] Gia Kalka PA-C Work Phone: [facility] 04-28-2022 14:30-0400 Diastolic blood pressure 85 mm[Hg] Bill Alaina BICYCLE SUBASSEMBLER.ELEMENTARY EDUCATION TUTOR Work Phone: [facility] 04-28-2022 14:30-0400 Heart rate 92 /min Bill [place] BICYCLE SUBASSEMBLER.ELEMENTARY EDUCATION TUTOR Work Phone: [facility] 04-28-2022 14:30-0400 SaO2% (BldA) [Mass fraction] 99 % Bill Foley BICYCLE SUBASSEMBLER.ELEMENTARY EDUCATION TUTOR Work Phone: [facility] 04-28-2022 14:30-0400 Systolic blood pressure 115 mm[Hg] Bill Foley BICYCLE SUBASSEMBLER.ELEMENTARY EDUCATION TUTOR Work Phone: [facility] 04-16-2022 15:36-0500 Body height 165.1 cm Errol Cary MD Work Phone: [facility] 04-16-2022 15:36-0500 Body weight 96.16 kg Errol Cary MD Work Phone: [facility] 04-16-2022 15:36-0500 Diastolic blood pressure 70 mm[Hg] Errol Cary MD Work Phone: [facility] 04-16-2022 15:36-0500 Heart rate 66 /min Errol Cary MD Work Phone: [facility] 04-16-2022 15:36-0500 SaO2% (BldA) [Mass fraction] 96 % Errol Cary MD Work Phone: [facility] 04-16-2022 15:36-0500 Systolic blood pressure 110 mm[Hg] Errol Cary MD Work Phone: [facility] 04-15-2022 14:15-0500 Body height 165.1 cm Susan Saucedo MD Work Phone: [facility] 04-15-2022 14:15-0500 Body weight 96.62 kg Susan Saucedo MD Work Phone: [facility] 04-15-2022 14:15-0500 Diastolic blood pressure 83 mm[Hg] Susan Saucedo MD Work Phone: [facility] 04-15-2022 14:15-0500 Heart rate 58 /min Susan Saucedo MD Work Phone: [facility] 04-15-2022 14:15-0500 Respiratory rate 16 /min Susan Saucedo MD Work Phone: [facility] 04-15-2022 14:15-0500 SaO2% (BldA) [Mass fraction] 97 % Susan Saucedo MD Work Phone: [facility] 04-15-2022 14:15-0500 Systolic blood pressure 121 mm[Hg] Susan Saucedo MD Work Phone: [facility] 04-02-2022 14:36-0500 Body weight 96.62 kg Jennifer Rajguru BICYCLE SUBASSEMBLER.WAREHOUSE DISTRIBUTION MANAGER Work Phone: [facility] 04-02-2022 14:36-0500 Diastolic blood pressure 78 mm[Hg] Jennifer Rajguru BICYCLE SUBASSEMBLER.WAREHOUSE DISTRIBUTION MANAGER Work Phone: [facility] 04-02-2022 14:36-0500 Heart rate 80 /min Jennifer Rajguru BICYCLE SUBASSEMBLER.WAREHOUSE DISTRIBUTION MANAGER Work Phone: [facility] 04-02-2022 14:36-0500 Systolic blood pressure 118 mm[Hg] Jennifer Rajguru BICYCLE SUBASSEMBLER.WAREHOUSE DISTRIBUTION MANAGER Work Phone: [facility] 03-03-2022 15:06-0500 Body height 165.1 cm Errol Cary MD Work Phone: [facility] 03-03-2022 15:06-0500 Body weight 97.98 kg Errol Cary MD Work Phone: [facility] 03-03-2022 15:06-0500 Diastolic blood pressure 82 mm[Hg] Errol Cary MD Work Phone: [facility] 03-03-2022 15:06-0500 Heart rate 70 /min Errol Cary MD Work Phone: [facility] 03-03-2022 15:06-0500 SaO2% (BldA) [Mass fraction] 98 % Errol Cary MD Work Phone: [facility] 03-03-2022 15:06-0500 Systolic blood pressure 116 mm[Hg] Errol Cary MD Work Phone: [facility] 01-29-2022 15:10-0500 Body weight 101.61 kg Jennifer Rajguru BICYCLE SUBASSEMBLER.WAREHOUSE DISTRIBUTION MANAGER Work Phone: [facility] 01-29-2022 15:10-0500 Diastolic blood pressure 82 mm[Hg] Jennifer Rajguru BICYCLE SUBASSEMBLER.WAREHOUSE DISTRIBUTION MANAGER Work Phone: [facility] 01-29-2022 15:10-0500 Heart rate 78 /min Jennifer Rajguru BICYCLE SUBASSEMBLER.WAREHOUSE DISTRIBUTION MANAGER Work Phone: [facility] 01-29-2022 15:10-0500 Systolic blood pressure 158 mm[Hg] Jennifer Rajguru BICYCLE SUBASSEMBLER.WAREHOUSE DISTRIBUTION MANAGER Work Phone: [facility] 01-28-2022 10:23-0500 Diastolic blood pressure 82 mm[Hg] Bill [place] BICYCLE SUBASSEMBLER.ELEMENTARY EDUCATION TUTOR Work Phone: [facility] 01-28-2022 10:23-0500 Heart rate 67 /min [facility] [place] BICYCLE SUBASSEMBLER.ELEMENTARY EDUCATION TUTOR Work Phone: [facility] 01-28-2022 10:23-0500 SaO2% (BldA) [Mass fraction] 96 % [facility] Alaina BICYCLE SUBASSEMBLER.ELEMENTARY EDUCATION TUTOR Work Phone: [facility] 01-28-2022 10:23-0500 Systolic blood pressure 126 mm[Hg] Bill Alaina BICYCLE SUBASSEMBLER.ELEMENTARY EDUCATION TUTOR Work Phone: [facility] 01-14-2022 14:03-0500 Body height 165.1 cm Yakov Etienne MD Work Phone: [facility] 01-14-2022 14:03-0500 Body temperature 97 [degF] Yakov Etienne MD Work Phone: [facility] 01-14-2022 14:03-0500 Body weight 99.7 kg Yakov Etienne MD Work Phone: [facility] 01-14-2022 14:03-0500 Diastolic blood pressure 78 mm[Hg] Yakov Etienne MD Work Phone: [facility] 01-14-2022 14:03-0500 Heart rate 73 /min Yakov Etienne MD Work Phone: [facility] 01-14-2022 14:03-0500 SaO2% (BldA) [Mass fraction] 96 % Yakov Etienne MD Work Phone: [facility] 01-14-2022 14:03-0500 Systolic blood pressure 120 mm[Hg] Yakov Etienne MD Work Phone: [facility] 01-13-2022 10:42-0500 Body height 165.6 cm Respiratory Wstr Work Phone: [facility] 01-13-2022 10:42-0500 Body weight 100.25 kg Respiratory Wstr Work Phone: [facility] 01-13-2022 10:42-0500 Heart rate 67 /min Respiratory Wstr Work Phone: [facility] 01-13-2022 10:42-0500 Respiratory rate 12 /min Respiratory Wstr Work Phone: [facility] 01-13-2022 10:42-0500 SaO2% (BldA) [Mass fraction] 98 % Respiratory Wstr Work Phone: [facility] 11-04-2021 14:07-0400 Body height 165.1 cm Errol Cary MD Work Phone: [facility] 11-04-2021 14:07-0400 Body weight 100.34 kg Errol Cary MD Work Phone: [facility] 11-04-2021 14:07-0400 Diastolic blood pressure 90 mm[Hg] Errol Cary MD Work Phone: [facility] 11-04-2021 14:07-0400 Heart rate 69 /min Errol Cary MD Work Phone: [facility] 11-04-2021 14:07-0400 SaO2% (BldA) [Mass fraction] 97 % Errol Cary MD Work Phone: [facility] 11-04-2021 14:07-0400 Systolic blood pressure 130 mm[Hg] Errol Cary MD Work Phone: [facility] 10-26-2021 08:50-0400 Respiratory rate 20 /min Yakov Light MD Work Phone: [facility] 10-26-2021 08:43-0400 Body temperature 97 [degF] Yakov Light MD Work Phone: [facility] 10-26-2021 08:43-0400 Diastolic blood pressure 87 mm[Hg] Yakov Light MD Work Phone: [facility] 10-26-2021 08:43-0400 Heart rate 88 /min Yakov Light MD Work Phone: [facility] 10-26-2021 08:43-0400 SaO2% (BldA) [Mass fraction] 95 % Yakov Light MD Work Phone: [facility] 10-26-2021 08:43-0400 Systolic blood pressure 132 mm[Hg] Yakov Light MD Work Phone: [facility] 10-25-2021 12:42-0400 Body height 165.1 cm Yakov Light MD Work Phone: [facility] 10-22-2021 20:45-0400 Body mass index (BMI) [Ratio] 36.61 kg/m2 Yakov Light MD Work Phone: [facility] 10-22-2021 20:45-0400 Body weight 99.79 kg Yakov Light MD Work Phone: [facility] 10-21-2021 11:01-0400 Diastolic blood pressure 98 mm[Hg] [facility] Work Phone: 10-21-2021 11:01-0400 Heart rate 91 /min [facility] Work Phone: 10-21-2021 11:01-0400 Respiratory rate 20 /min [facility] Work Phone: 10-21-2021 11:01-0400 SaO2% (BldA) [Mass fraction] 97 % [facility] Work Phone: 10-21-2021 11:01-0400 Systolic blood pressure 124 mm[Hg] [facility] Work Phone: 10-21-2021 08:46-0400 Body height 167.64 cm [facility] Work Phone: 10-21-2021 08:46-0400 Body mass index (BMI) [Ratio] 35.8 kg/m2 [facility] Work Phone: 10-21-2021 08:46-0400 Body temperature 98.4 [degF] [facility] Work Phone: 10-21-2021 08:46-0400 Body weight 100.6 kg [facility] Work Phone: 10-16-2021 14:18-0400 Body weight 101.15 kg Errol Cary MD Work Phone: [facility] 10-16-2021 14:18-0400 Diastolic blood pressure 88 mm[Hg] Errol Cary MD Work Phone: [facility] 10-16-2021 14:18-0400 Heart rate 60 /min Errol Cary MD Work Phone: [facility] 10-16-2021 14:18-0400 Systolic blood pressure 132 mm[Hg] Errol Cary MD Work Phone: [facility] 10-08-2021 17:34-0400 Diastolic blood pressure 83 mm[Hg] [facility] Work Phone: 10-08-2021 17:34-0400 Heart rate 65 /min [facility] Work Phone: 10-08-2021 17:34-0400 Respiratory rate 16 /min [facility] Work Phone: 10-08-2021 17:34-0400 SaO2% (BldA) [Mass fraction] 94 % [facility] Work Phone: 10-08-2021 17:34-0400 Systolic blood pressure 128 mm[Hg] [facility] Work Phone: 10-08-2021 15:29-0400 Body height 167.64 cm [facility] Work Phone: 10-08-2021 15:29-0400 Body mass index (BMI) [Ratio] 35.5 kg/m2 [facility] Work Phone: 10-08-2021 15:29-0400 Body temperature 97.8 [degF] [facility] Work Phone: 10-08-2021 15:29-0400 Body weight 99.79 kg [facility] Work Phone: 08-22-2021 10:26-0400 Body weight 100.7 kg Jennifer Rajguru BICYCLE SUBASSEMBLER.WAREHOUSE DISTRIBUTION MANAGER Work Phone: [facility] 08-22-2021 10:26-0400 Diastolic blood pressure 80 mm[Hg] Jennifer Rajguru BICYCLE SUBASSEMBLER.WAREHOUSE DISTRIBUTION MANAGER Work Phone: [facility] 08-22-2021 10:26-0400 Heart rate 78 /min Jennifer Rajguru BICYCLE SUBASSEMBLER.WAREHOUSE DISTRIBUTION MANAGER Work Phone: [facility] 08-22-2021 10:26-0400 Systolic blood pressure 138 mm[Hg] Jennifer Rajguru BICYCLE SUBASSEMBLER.WAREHOUSE DISTRIBUTION MANAGER Work Phone: [facility] 07-24-2021 10:48-0400 Body temperature 97.3 [degF] Theresa Diana BICYCLE SUBASSEMBLER.WAREHOUSE DISTRIBUTION MANAGER Work Phone: [facility] 07-24-2021 10:48-0400 Body weight 103.06 kg Theresa Diana BICYCLE SUBASSEMBLER.WAREHOUSE DISTRIBUTION MANAGER Work Phone: [facility] 07-24-2021 10:48-0400 Diastolic blood pressure 92 mm[Hg] Theresa Diana BICYCLE SUBASSEMBLER.WAREHOUSE DISTRIBUTION MANAGER Work Phone: [facility] 07-24-2021 10:48-0400 Heart rate 65 /min Theresa Diana BICYCLE SUBASSEMBLER.WAREHOUSE DISTRIBUTION MANAGER Work Phone: [facility] 07-24-2021 10:48-0400 Respiratory rate 20 /min Theresa Diana BICYCLE SUBASSEMBLER.WAREHOUSE DISTRIBUTION MANAGER Work Phone: [facility] 07-24-2021 10:48-0400 SaO2% (BldA) [Mass fraction] 98 % Theresa Ortiz BICYCLE SUBASSEMBLER.WAREHOUSE DISTRIBUTION MANAGER Work Phone: [facility] 07-24-2021 10:48-0400 Systolic blood pressure 134 mm[Hg] Theresa Ortiz BICYCLE SUBASSEMBLER.WAREHOUSE DISTRIBUTION MANAGER Work Phone: [facility] 06-19-2021 14:20-0400 Body weight 103.42 kg Jennifer Alfonso BICYCLE SUBASSEMBLER.WAREHOUSE DISTRIBUTION MANAGER Work Phone: [facility] 06-19-2021 14:20-0400 Diastolic blood pressure 82 mm[Hg] Jennifer Rajlitoru BICYCLE SUBASSEMBLER.WAREHOUSE DISTRIBUTION MANAGER Work Phone: [facility] 06-19-2021 14:20-0400 Heart rate 72 /min Jennifer Alfonso BICYCLE SUBASSEMBLER.WAREHOUSE DISTRIBUTION MANAGER Work Phone: [facility] 06-19-2021 14:20-0400 Systolic blood pressure 136 mm[Hg] Jennifer Alfonso BICYCLE SUBASSEMBLER.WAREHOUSE DISTRIBUTION MANAGER Work Phone: [facility] Encounters Encounter Date Encounter Type Care Provider Facility Start: 08-26-2024 End: 08-26-2024 ambulatory Errol Cary MD Work Phone: Pharm [facility] Comment on above: Allied Health Visit (Medication Adherence Outreach ) Start: 07-20-2024 End: 07-20-2024 ambulatory Errol Cary MD Work Phone: [facility] [place] Start: 07-20-2024 End: 07-20-2024 Patient encounter procedure [facility] Comment on above: Population Health Na vigation Outreach ([employer] ) Start: 06-02-2024 End: 06-02-2024 Refill David Fontenot MD Work Phone: Ambulatory Surgery Comment on above: Refill Request Start: 05-17-2024 End: 07-17-2024 Follow-up encounter Ria Pulido APRN.WAREHOUSE DISTRIBUTION MANAGER Work Phone: General Surgery Start: 04-28-2024 End: 06-28-2024 Follow-up encounter Errol Cary MD Work Phone: Pulmonology [facility] Start: 04-27-2024 End: 04-27-2024 ambulatory ERROL CARY Facility:[facility] Start: 04-27-2024 End: 04-27-2024 Patient encounter procedure Errol Cary MD Work Phone: [facility] Comment on above: Essential hypertensi on, benign (Primary Dx); Encounter for immunization; Hyperlipidemia, unspecified hyperlipidemia type; Mild cognitive impairment with memory loss; Other acute pulmonary embolism without acute cor pulmonale (HCC); Aorta disorder (HCC); Hypothyroidism, unspecified type; Other cervical disc degeneration, unspecified cervical region; Recurrent major depression in partial remission (HCC); Bipolar 2 disorder (HCC); Obesity, Class I, BMI 30-34.9; Fatty liver; Screening for prostate cancer Start: 04-25-2024 End: 04-25-2024 Refill Errol Cary MD Work Phone: [facility] Comment on above: Refill Request Start: 04-13-2024 End: 04-13-2024 ambulatory Dara Putnam MA [facility] Start: 04-13-2024 End: 04-13-2024 [facility] Comment on above: Population Health Na vigation Outreach ([facility] Start: 04-11-2024 End: 04-11-2024 ambulatory RIA PULIDO Facility:[facility] Start: 04-11-2024 End: 04-11-2024 Patient encounter procedure Ria Pulido APRN.WAREHOUSE DISTRIBUTION MANAGER Work Phone: General Surgery Comment on above: Helicobacter pylori infection (Primary Dx) Start: 04-07-2024 End: 04-07-2024 Admission to same day surgery center Ria Pulido APRN.WAREHOUSE DISTRIBUTION MANAGER Work Phone: General Surgery Comment on above: H. Pylori Start: 04-07-2024 End: 04-07-2024 E-mail encounter from caregiver Ria Pulido APRArnavWAREHOUSE DISTRIBUTION MANAGER Work Phone: General Surgery Start: 04-07-2024 End: 04-07-2024 Telephone encounter Ria Pulido TILA Work Phone: General Surgery Comment on above: Appointment Start: 04-05-2024 End: 04-05-2024 ambulatory YAKOV ETIENNE Facility:[facility] Start: 04-05-2024 End: 04-05-2024 Patient encounter procedure Yakov Etienne MD Work Phone: General Surgery Comment on above: Generalized abdomina l pain (Primary Dx); Rectal bleeding; Internal hemorrhoids; Diarrhea, unspecified type Start: 03-14-2024 End: 03-14-2024 ambulatory Dara Putnam MA [facility] Start: 03-14-2024 End: 03-14-2024 Patient encounter procedure Dara Putnam MA [facility] Comment on above: Population Health Na vigation Outreach ([facility]) Start: 03-13-2024 End: 03-13-2024 Emergency department patient visit [facility] Facility:[facility] Start: 02-18-2024 End: 02-18-2024 Telephone encounter Gia Ventura PA-C Work Phone: [facility] [place] Comment on above: Patient Question Start: 02-03-2024 End: 02-04-2024 ambulatory NAHUN GUSTAFSON Facility:[facility] Start: 02-03-2024 End: 02-03-2024 Patient encounter procedure Nahun Gustafson MD Work Phone: [facility] Comment on above: Internal and externa l hemorrhoids without complication (Primary Dx) Start: 02-01-2024 ambulatory NAHUN GUSTAFSON Fa cility:[facility] Start: 02-01-2024 End: 02-01-2024 Subsequent hospital visit by physician Nahun Gustafson MD Work Phone: [facility] Comment on above: Anal fissure [K60.2] Start: 02-01-2024 End: 04-27-2024 Preprocedural examination done Nahun Gustafson MD Work Phone: [facility] Work Phone: Start: 01-13-2024 End: 01-21-2024 Telephone encounter Gia Ventura PA-C Work Phone: [facility] [place] Comment on above: Results Start: 01-11-2024 End: 01-11-2024 [facility] [place] Start: 01-11-2024 End: 01-11-2024 Patient encounter procedure Dara Putnam MA [facility] Comment on above: [facility] Na [facility] Out[facility] Start: 01-07-2024 End: 01-07-2024 Refill Errol Cary MD Work Phone: [facility] Comment on above: Refill Request Start: 01-05-2024 End: 01-05-2024 ambulatory DAVID FONTENOT [place] [facility] Start: 01-05-2024 End: 01-05-2024 Subsequent hospital visit by physician David Fontenot MD Work Phone: Ambulatory Surgery Comment on above: Bilateral upper abdo saulo pain [R10.11, R10.12] Start: 12-29-2023 End: 12-29-2023 Telephone encounter Glen Brown MD Work Phone: Ambulatory Surgery Comment on above: PreOp Call Start: 12-18-2023 ambulatory GIA VENTURA Facility: [facility] Start: 12-18-2023 End: 12-18-2023 Subsequent hospital visit by physician Mri [facility] (1.5t) [facility] Comment on above: Liver lesion [K76.9] Start: 12-10-2023 End: 12-10-2023 Orders Only Nahun Gustafson MD Work Phone: [facility] GENERAL SURGERY DE[facility]MENT Comment on above: Anal fissure (Primar y Dx) Procedure (LATERAL I NTERNAL SPHINCTEROTOMY) Start: 12-09-2023 End: 12-09-2023 Patient encounter procedure Nahun Gustafson MD Work Phone: [facility] SURGERY DEPARTMENT Comment on above: Anal fissure (Primar y Dx); Internal and external hemorrhoids without complication Start: 12-09-2023 End: 12-09-2023 ambulatory NAHUN GUSTAFSON Facility:[facility] Start: 12-02-2023 End: 12-02-2023 Orders Only Gia Ventura PA-C [facility] Comment on above: Liver lesion (Primar y Dx) Start: 11-30-2023 End: 11-30-2023 Subsequent hospital visit by physician [facility] Comment on above: Bilateral upper abdo saulo pain [R10.11, R10.12] Start: 11-30-2023 End: 11-30-2023 ambulatory GIA VENTURA Facility:[facility] Start: 11-25-2023 End: 11-25-2023 ambulatory GIA VENTURA Facility:[facility] Start: 11-25-2023 End: 11-25-2023 Patient encounter procedure Gai Ventura PA-C Work Phone: [facility] Comment on above: Bilateral upper abdo saulo pain (Primary Dx); Diarrhea, unspecified type; History of colonic polyps; External hemorrhoids Start: 10-08-2023 End: 10-08-2023 Telephone encounter Nahun Gustafson MD Work Phone: [facility] DEPARTMENT Comment on above: Appointment Start: 10-07-2023 End: 10-09-2023 Telephone encounter Teo Kaminski APRN.CNP Work Phone: [facility] Comment on above: Results; PILL COUNT Start: 10-05-2023 End: 10-05-2023 ambulatory YAKOV ETIENNE Facility:[facility] Start: 10-05-2023 End: 10-05-2023 Patient encounter procedure Yakov Etienne MD Work Phone: General Surgery Comment on above: Epigastric pain (Daksah juan antonio Dx); Rectal bleeding; Internal hemorrhoids; Abdominal bloating Start: 09-29-2023 End: 09-29-2023 Patient encounter procedure Teo Kaminski KARI.WAREHOUSE DISTRIBUTION MANAGER Work Phone: PAIN [facility] Comment on above: Other chronic pain ( Primary Dx); detention (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 of opiate analgesic; Osteoarthritis of both shoulders, unspecified osteoarthritis type; Myofascial pain syndrome; Other cervical disc degeneration, unspecified cervical region; Chronic pain syndrome Start: 09-29-2023 End: 09-29-2023 ambulatory TEO KAMINSKI Facility:[id number] Start: 09-25-2023 Telephone encounter Yakov garcia MD Work Phone: General Surgery Comment on above: Appointment Start: 09-14-2023 Refill Teo Daviso BICYCLE SUBASSEMBLER.WAREHOUSE DISTRIBUTION MANAGER Work Phone: Pain Management Comment on above: Refill Request Start: 08-26-2023 Refill Teo Daviso BICYCLE SUBASSEMBLER.WAREHOUSE DISTRIBUTION MANAGER Work Phone: Pain Management Comment on above: Refill Request Start: 07-28-2023 Telephone encounter Teo douglas APRN.WAREHOUSE DISTRIBUTION MANAGER Work Phone: Pain Management Comment on above: Other (Virtual V isit Pre Check In) Other (Patient q uestions) Start: 07-28-2023 End: 07-28-2023 ambulatory Teo Gordy PIERCE.WAREHOUSE DISTRIBUTION MANAGER Work Phone: Pain Management Comment on above: Other chronic pain ( Primary Dx); detention (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 of opiate analgesic; Other cervical disc degeneration, unspecified cervical region; Osteoarthritis of both shoulders, unspecified osteoarthritis type; Myofascial pain syndrome; Chronic pain syndrome Start: 07-28-2023 End: 07-28-2023 Telemedicine consultation with patient Teo Kaminski APRN.WAREHOUSE DISTRIBUTION MANAGER Work Phone: Pain Management Start: 07-21-2023 End: 07-21-2023 ambulatory [facility] Facility:[id number] Start: 07-01-2023 Telephone encounter Teo douglas APRN.CNP Work Phone: Pain Management Comment on above: Other (Patient q uestyoko) Start: 07-01-2023 End: 07-01-2023 Telemedicine consultation with patient Teo Kaminski APRN.WAREHOUSE DISTRIBUTION MANAGER Work Phone: Pain Management Start: 07-01-2023 End: 07-01-2023 ambulatory Teo Gordy BICYCLE SUBASSEMBLER.WAREHOUSE DISTRIBUTION MANAGER Work Phone: Pain Management Comment on above: Other chronic pain ( Primary Dx); detention (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 of opiate analgesic; Other cervical disc degeneration, unspecified cervical region; Osteoarthritis of both shoulders, unspecified osteoarthritis type; Chronic pain syndrome Start: 06-02-2023 Telephone encounter Teo douglas APRN.WAREHOUSE DISTRIBUTION MANAGER Work Phone: Pain Management Comment on above: Other (Virtual V isit Pre Check In) Other (Patient q uestyoko) Start: 06-02-2023 End: 06-02-2023 Telemedicine consultation with patient Teo Kaminski APRN.WAREHOUSE DISTRIBUTION MANAGER Work Phone: [facility] Start: 06-02-2023 End: 06-02-2023 ambulatory Teo Gordy BICYCLE SUBASSEMBLER.WAREHOUSE DISTRIBUTION MANAGER Work Phone: Pain Management Comment on above: Other chronic pain ( Primary Dx); 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; Other cervical disc degeneration, unspecified cervical region; Osteoarthritis of both shoulders, unspecified osteoarthritis type; Myofascial pain syndrome; Cervicalgia; Chronic pain syndrome Start: 05-01-2023 Refill Teo Gordy KARI.WAREHOUSE DISTRIBUTION MANAGER Work Phone: Pain Management Comment on above: Refill Request Start: 04-30-2023 Telephone encounter Teo douglas APRN.WAREHOUSE DISTRIBUTION MANAGER Work Phone: Pain Management Comment on above: Other ([facility]) Start: 04-27-2023 Refill Teo Gordy BICYCLE SUBASSEMBLER.WAREHOUSE DISTRIBUTION MANAGER Work Phone: Pain Management Comment on above: Refill Request Start: 04-25-2023 End: 04-25-2023 Emergency department patient visit [facility] Work Phone: Start: 04-01-2023 Telephone encounter Teo douglas APRN.JADA Work Phone: Pain Management Comment on above: Other (Virtual V isit Pre Check In) Other (Patient yrn velazquez) Other (Follow up appt) Start: 04-01-2023 End: 04-01-2023 Telemedicine consultation with patient Teo Kaminski APRHIRAL Work Phone: [facility] Start: 04-01-2023 End: 04-01-2023 ambulatory Teo Kaminski KARI.JADA Work Phone: Pain Management Comment on above: Other chronic pain ( Primary Dx); detention (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 of opiate analgesic; Other cervical disc degeneration, unspecified cervical region; Osteoarthritis of both shoulders, unspecified osteoarthritis type; Myofascial pain syndrome; Chronic pain syndrome Start: 03-31-2023 Telephone encounter Teo douglas APRN.JADA Work Phone: Pain Management Start: 03-03-2023 End: 03-03-2023 ambulatory [facility] Facility:[id number] Start: 02-11-2023 End: 02-11-2023 [facility] Facility:[id number] Start: 01-28-2023 Refill Allie Zeke Guera cooper DO Work Phone: Pain Management Comment on above: Refill Request Start: 12-29-2022 Refill Cindy Cramer APRN.JDAA Work Phone: Pain Management Comment on above: Refill Request Start: 12-03-2022 End: 12-03-2022 Office outpatient visit 25 minutes Lauren Steen APRN.WAREHOUSE DISTRIBUTION MANAGER Work Phone: [facility] [place] Comment on above: Aorta disorder (HCC) (Primary Dx); Essential hypertension, benign; Subclinical hypothyroidism; Hyperlipidemia, unspecified hyperlipidemia type Start: 11-27-2022 Refill Cindy Cramer APRN.JADA Work Phone: Pain Management Comment on above: Refill Request Start: 11-10-2022 End: 11-10-2022 Patient encounter procedure Allie Ceballos Work Phone: Pain Management Comment on above: High risk medication use (Primary Dx); Cervicalgia; Other cervical disc degeneration, unspecified cervical region; Chronic pain syndrome; Cervical radiculopathy; Myofascial pain syndrome Start: 10-30-2022 Refill Bill Alaina BICYCLE SUBASSEMBLER.ELEMENTARY EDUCATION TUTOR Work Phone: Pain Management Comment on above: Refill Request Start: 10-27-2022 Telephone encounter Bill crawfordd BICYCLE SUBASSEMBLER.ELEMENTARY EDUCATION TUTOR Work Phone: Pain Management Comment on above: Appointment Start: 09-30-2022 Refill Bill [place] BICYCLE SUBASSEMBLER.ELEMENTARY EDUCATION TUTOR Work Phone: Pain Management Comment on above: Refill Request Start: 09-01-2022 Refill Bill Alaina BICYCLE SUBASSEMBLER.ELEMENTARY EDUCATION TUTOR Work Phone: Pain Management Comment on above: Refill Request Start: 08-12-2022 End: 08-12-2022 Patient encounter procedure Yakov Etienne MD Work Phone: General Surgery Comment on above: Rectal bleeding (Daksha juan antonio Dx); Pruritus ani Start: 06-30-2022 End: 06-30-2022 Patient encounter procedure Yonathan Barajas MD Work Phone: Cardiology Comment on above: Aorta disorder (HCC) (Primary Dx); Primary hypertension; Other forms of angina pectoris (HCC) Start: 06-09-2022 End: 06-09-2022 Subsequent hospital visit by physician Glen Brown MD Work Phone: Ambulatory Surgery Comment on above: Anal bleeding [K62.5 ] Start: 06-05-2022 ambulatory Glen Brown MD Work Phone: Ambulatory Surgery Start: 06-03-2022 Refill Bill [place] BICYCLE SUBASSEMBLER.ELEMENTARY EDUCATION TUTOR Work Phone: Pain Management Comment on above: Refill Request Start: 06-02-2022 End: 06-02-2022 Patient encounter procedure Gia Ventura PA-C Work Phone: Gastroenterology [place] Comment on above: Anal bleeding (Prima ry Dx); Drug induced constipation; History of colonic polyps Start: 06-02-2022 End: 06-02-2022 ambulatory SUSAN SAUCEDO Facility[facility] Start: 06-02-2022 End: 06-02-2022 ambulatory Kyle Virk CCC-STEEL GRINDER Work Phone: [facility] Comment on above: Memory loss (Primary Dx) Start: 05-12-2022 End: 05-12-2022 ambulatory ERROL RUBIOO Facility[facility] Start: 05-06-2022 End: 05-06-2022 ambulatory ERROL CARY Facility[facility] Start: 05-06-2022 End: 05-06-2022 ambulatory Kyle Gimaninder CCC-STEEL GRINDER Work Phone: [facility] Comment on above: Memory loss Start: 04-28-2022 End: 04-28-2022 Office outpatient visit 25 minutes Bill Alaina BICYCLE SUBASSEMBLER.ELEMENTARY EDUCATION TUTOR Work Phone: Pain Management Comment on above: High risk medication use (Primary Dx); Osteoarthritis of both shoulders, unspecified osteoarthritis type; Chronic pain syndrome; Rotator cuff impingement syndrome, unspecified laterality; Other cervical disc degeneration, unspecified cervical region Start: 04-16-2022 End: 04-16-2022 Patient encounter procedure Errol Cary MD Work Phone: [facility] Comment on above: Essential hypertensi on (Primary Dx); GERD without esophagitis; Mild cognitive impairment with memory loss; Other acute pulmonary embolism without acute cor pulmonale (HCC) Start: 04-15-2022 End: 04-15-2022 Initial preventive medicine new patient 40-64yrs Susan Saucedo MD Work Phone: Neurology Comment on above: Memory loss (Primary Dx); Mild cognitive impairment with memory loss Start: 04-03-2022 Refill Bill [place] BICYCLE SUBASSEMBLER.ELEMENTARY EDUCATION TUTOR Work Phone: Pain Management Comment on above: Refill Request Start: 04-02-2022 End: 04-02-2022 Patient encounter procedure Jennifer Alfonso APRN.WAREHOUSE DISTRIBUTION MANAGER Work Phone: Psychiatry Comment on above: Bipolar 2 disorder ( HCC) (Primary Dx); JE (generalized anxiety disorder) Start: 03-28-2022 Telephone encounter Errol Cary MD Work Phone: [facility] Comment on above: Results Start: 03-28-2022 End: 03-28-2022 Subsequent hospital visit by physician Mri Radio [facility] (I-Stat/1.5t) Work Phone: Radiology Comment on above: Mild cognitive impai rment with memory loss [G31.84] Start: 03-03-2022 End: 03-03-2022 Patient encounter procedure Errol Cary MD Work Phone: [facility] Comment on above: Essential hypertensi on (Primary Dx); Aorta disorder (HCC); Recurrent major depression in partial remission (HCC); High risk medications (not anticoagulants) long-term use; Subclinical hypothyroidism; Rectal bleeding; Elevated liver enzymes; Mild cognitive impairment with memory loss; Cognitive impairment, mild, so stated; Headache, unspecified headache type; Enlarged thoracic aorta (HCC) Refill Request Start: 02-07-2022 E-mail encounter fro m caregiver Yakov Etienne MD Work Phone: [facility] Start: 02-07-2022 Patient encounter procedure Yakov Etienne MD Work Phone: General Surgery Comment on above: appointment Start: 02-07-2022 Telephone encounter Errol Cary MD Work Phone: [facility] Comment on above: Results Start: 02-05-2022 End: 02-05-2022 Subsequent hospital visit by physician Mri [facility] (1.5t) [facility] Comment on above: Liver lesion [K76.9] Start: 01-29-2022 End: 01-29-2022 Patient encounter procedure Jennifer Alfonso APRN.WAREHOUSE DISTRIBUTION MANAGER Work Phone: Psychiatry Comment on above: Bipolar 2 disorder ( HCC) (Primary Dx); JE (generalized anxiety disorder) Start: 01-28-2022 End: 01-28-2022 Office outpatient visit 25 minutes Bill Foley APRN.ELEMENTARY EDUCATION TUTOR Work Phone: Pain Management Comment on above: Other cervical disc degeneration, unspecified cervical region (Primary Dx); Osteoarthritis of both shoulders, unspecified osteoarthritis type; Chronic pain syndrome; High risk medication use; Rotator cuff impingement syndrome, unspecified laterality; Neck pain Start: 01-16-2022 End: 01-16-2022 Subsequent hospital visit by physician [facility] 2 Work Phone: Radiology Comment on above: Elevated liver enzym es [R74.8] Start: 01-14-2022 End: 01-14-2022 Patient encounter procedure Yakov Etienne MD Work Phone: General Surgery Comment on above: Epigastric pain (Daksha juan antonio Dx); Internal hemorrhoids; Rectal bleeding; Nausea Start: 01-13-2022 End: 01-13-2022 ambulatory Respiratory Therapist [facility] Work Phone: Pulmonary Medicine Comment on above: Spirometry Start: 01-13-2022 End: 01-13-2022 Patient encounter procedure Respiratory Therapist [facility] Work Phone: [facility] Start: 01-08-2022 Refill Cindy Cramer APRN.WAREHOUSE DISTRIBUTION MANAGER Work Phone: Pain Management Comment on above: Refill Request Start: 01-07-2022 Telephone encounter Errol Cary MD Work Phone: [facility] [place] Comment on above: Results Start: 01-06-2022 Telephone encounter Errol Cary MD Work Phone: [facility] [place] Comment on above: Results Start: 01-04-2022 End: 01-04-2022 Subsequent hospital visit by physician Aaliyah [facility] [place] Work Phone: Radiology Comment on above: Acute cough [R05.1] Start: 12-20-2021 End: 12-20-2021 ambulatory Cindy Cramer BICYCLE SUBASSEMBLER.WAREHOUSE DISTRIBUTION MANAGER Work Phone: Pain [facility] Comment on above: Rotator cuff impinge ment syndrome, unspecified laterality (Primary Dx); Osteoarthritis of both shoulders, unspecified osteoarthritis type; Neck pain; Rotator cuff syndrome, unspecified laterality; Cervicalgia; High risk medications (not anticoagulants) long-term use; Constipation due to opioid therapy; Chronic pain syndrome Start: 12-20-2021 End: 12-20-2021 Telemedicine consultation with patient Cindy Nicholas Shoaib ADORNO Work Phone: [facility] Start: 12-02-2021 Refill Cindy Nicholas Shoaib PIERCE.WAREHOUSE DISTRIBUTION MANAGER Work Phone: Pain Management Comment on above: Refill Request Start: 11-21-2021 Telephone encounter Lisa beckford APRN.JADA Work Phone: Pain Management Comment on above: Sider - O ther Start: 11-06-2021 End: 11-06-2021 Office outpatient visit 25 minutes Lisa Heller APRN.WAREHOUSE DISTRIBUTION MANAGER Work Phone: Pain Management Comment on above: Constipation due to opioid therapy (Primary Dx); Chronic pain syndrome; Rotator cuff impingement syndrome, unspecified laterality; Osteoarthritis of both shoulders, unspecified osteoarthritis type; Neck pain Start: 11-05-2021 Telephone encounter Errol Cary MD Work Phone: [facility] [place] Comment on above: Question regarding d myla Start: 11-04-2021 End: 11-04-2021 Patient encounter procedure Errol Cary MD Work Phone: [facility] [place] Comment on above: Other acute pulmonar y embolism without acute cor pulmonale (HCC) (Primary Dx); Essential hypertension, benign; Chronic chest pain; Lightheaded; Bipolar affective disorder, remission status unspecified (HCC); GERD without esophagitis Start: 11-01-2021 End: 11-02-2021 ambulatory [facility] Facility:[id number] Start: 10-27-2021 Refill Jennifer colunga APRN.CNP Work Phone: Psychiatry Comment on above: Refill Request Start: 10-22-2021 Telephone encounter Lisa beckford APRN.CNP Work Phone: Pain Management Comment on above: Sider - O ther Start: 10-22-2021 End: 10-26-2021 [facility] Start: 10-22-2021 End: 10-26-2021 Evaluation and management of inpatient Yakov Light MD Work Phone: [facility] [employer] Comment on above: Acute bilateral thor acic back pain (Primary Dx) Start: 10-21-2021 End: 10-21-2021 [facility] Start: 10-16-2021 End: 10-16-2021 Patient encounter procedure Errol Cary MD Work Phone: [facility] Comment on above: Chest pain, unspecif ied type (Primary Dx); Subclinical hypothyroidism; GERD without esophagitis Start: 10-08-2021 End: 10-08-2021 [facility] Start: 10-08-2021 Refill Errol Cary MD Work Phone: [facility] Comment on above: Refill Request Start: 10-08-2021 End: 10-08-2021 Office outpatient visit 25 minutes Lisa Heller APRN.WAREHOUSE DISTRIBUTION MANAGER Work Phone: Pain Management Comment on above: Chronic pain syndrom e (Primary Dx); Cervicalgia; Rotator cuff impingement syndrome, unspecified laterality; Osteoarthritis of both shoulders, unspecified osteoarthritis type; Rotator cuff syndrome, unspecified laterality; Neck pain Start: 10-01-2021 Telephone encounter Lauren goodwin APRN.WAREHOUSE DISTRIBUTION MANAGER Work Phone: [facility] Comment on above: Results Start: 09-23-2021 End: 09-23-2021 Nursing evaluation of patient and report Nurse Card Admin [facility] Work Phone: Cardiology Comment on above: Essential hypertensi on (Primary Dx) Start: 09-23-2021 End: 09-23-2021 Subsequent hospital visit by physician Injection Nm [facility] Work Phone: Nuclear Medicine Comment on above: Chest pain, unspecif ied type [R07.9] Start: 09-09-2021 End: 09-09-2021 Office outpatient visit 25 minutes Lisa Heller APRN.CNP Work Phone: Pain Management Comment on above: Chronic pain syndrom e (Primary Dx); Cervicalgia; Osteoarthritis of both shoulders, unspecified osteoarthritis type; Rotator cuff syndrome, unspecified laterality; Neck pain; Rotator cuff impingement syndrome, unspecified laterality; Obesity, Class II, BMI 35-39.9 Start: 09-02-2021 Chart abstracting Lisa Heller APRN.WAREHOUSE DISTRIBUTION MANAGER Work Phone: Pain Management Start: 08-22-2021 End: 08-22-2021 Patient encounter procedure Jennifer Alfonso APRN.WAREHOUSE DISTRIBUTION MANAGER Work Phone: Psychiatry Comment on above: Bipolar 2 disorder ( HCC) (Primary Dx); JE (generalized anxiety disorder) Start: 08-06-2021 End: 08-06-2021 [facility] Start: 08-05-2021 Telephone encounter Lisa beckford APRN.WAREHOUSE DISTRIBUTION MANAGER Work Phone: Pain Management Comment on above: Procedure Schedule Start: 08-05-2021 End: 08-05-2021 ambulatory Lisa Heller APRN.CNP Work Phone: Pain Management Comment on above: Chronic pain syndrom e (Primary Dx); Osteoarthritis of both shoulders, unspecified osteoarthritis type; Neck pain; Rotator cuff impingement syndrome, unspecified laterality Start: 08-05-2021 End: 08-05-2021 Telemedicine consultation with patient Lisa Heller APRN.CNP Work Phone: [facility] Start: 07-31-2021 Chart abstracting Lisa Heller APRN.WAREHOUSE DISTRIBUTION MANAGER Work Phone: [facility] Start: 07-24-2021 End: 07-24-2021 Patient encounter procedure Theresa Ortiz APRN.WAREHOUSE DISTRIBUTION MANAGER Work Phone: [facility] Comment on above: Strain of neck muscl e, initial encounter (Primary Dx) Start: 06-19-2021 End: 06-19-2021 Patient encounter procedure Jennifer Alfonso APRN.WAREHOUSE DISTRIBUTION MANAGER Work Phone: Psychiatry Comment on above: Bipolar 2 disorder ( HCC) (Primary Dx); JE (generalized anxiety disorder) Start: 06-13-2021 End: 06-13-2021 Subsequent hospital visit by physician Lisa Heller APRN.WAREHOUSE DISTRIBUTION MANAGER Work Phone: [facility] Comment on above: VIRTUAL NO CHARGE Start: 06-12-2021 Telephone encounter Errol Cary MD Work Phone: [facility] [place] Comment on above: Pt returning call Start: 05-30-2021 Telephone encounter Lauren goodwin APRN.WAREHOUSE DISTRIBUTION MANAGER Work Phone: [facility] [place] Comment on above: Results Start: 05-29-2021 End: 05-29-2021 Subsequent hospital visit by physician [facility] Work Phone: Radiology Comment on above: Chest pain, unspecif ied type [R07.9] Start: 05-28-2021 Telephone encounter Lauren goodwin APRN.WAREHOUSE DISTRIBUTION MANAGER Work Phone: [facility] [place] Comment on above: Results Start: 05-17-2021 End: 05-17-2021 Subsequent hospital visit by physician Teo Padilla APRN.WAREHOUSE DISTRIBUTION MANAGER Work Phone: [facility] Comment on above: VIRTUAL Start: 09-21-2017 [facility] Facility [facility] Start: 06-18-2017 End: 06-18-2017 Ambulatory [facility] Facility:[facility] Procedures Date Procedure Procedure Detail Performing Clinician Start: 04-27-2024 Lipid 1996 panel - Serum or Plasma Arthur Fontenot MD Work Phone: Start: 01-05-2024 Esophagogastroduodenoscopy transoral diagnostic Gia Ventura PA-C Work Phone: Start: 04-25-2023 CT angiography of chest with contrast Start: 12-03-2022 Lipid 1996 panel - Serum or Plasma Geovani Steen APRN.WAREHOUSE DISTRIBUTION MANAGER Work Phone: Start: 06-09-2022 Level iv surg pathology gross&microscopic exam Glen Brown MD Work Phone: Start: 06-09-2022 Colonoscopy flx dx w/collj spec when pfrmd Gia Ventura PA-C Work Phone: Start: 06-09-2022 Colonoscopy Yonathan Barajas MD Work Phone: Start: 03-28-2022 Mri brain brain stem w/o contrast material Errol Cary MD Work Phone: Start: 01-16-2022 Us abdominal real time w/image limited Errol Cary MD Work Phone: Start: 01-13-2022 Brncdilat rspse spmtry pre&post-brncdilat admn Errol Cary MD Work Phone: Start: 01-04-2022 Radiologic exam chest 2 views Errol Cary MD Work Phone: Start: 10-26-2021 BASIC METABOLIC PANEL W/ REFLEX TO MG FOR LOW K Priscilla Booker MD Work Phone: Start: 10-26-2021 Blood count complete auto&auto difrntl wbc Priscilla Booker MD Work Phone: Start: 10-25-2021 Blood count complete auto&auto difrntl wbc Priscilla Booker MD Work Phone: Start: 10-24-2021 C-reactive protein Hanny Wick MD Work Phone: Start: 10-23-2021 Basic metabolic panel calcium total Bebo Light MD Work Phone: Start: 10-23-2021 Hepatic function panel Yakov Light MD Work Phone: Start: 10-23-2021 Blood count complete auto&auto difrntl wbc Yakov Light MD Work Phone: Start: 10-22-2021 Assay of troponin quantitative Yakov Light MD Work Phone: Start: 10-22-2021 Ecg routine ecg w/least 12 lds w/i&r Yakov Light MD Work Phone: Start: 10-22-2021 25 hydroxy includes fractions if performed Yakov Light MD Work Phone: Start: 10-22-2021 C-reactive protein Yakov Light MD Work Phone: Start: 10-21-2021 CT angiography of chest with contrast Start: 10-21-2021 Plain chest X-ray Start: 10-08-2021 Plain chest X-ray Start: 10-08-2021 CT of head without contrast Start: 09-23-2021 Myocardial spect multiple studies Esteban Steen BICYCLE SUBASSEMBLER.WAREHOUSE DISTRIBUTION MANAGER Work Phone: Start: 08-06-2021 X-ray of cervical spine Start: 05-29-2021 Us abdominal aorta real time screen study aaa Lauren Steen BICYCLE SUBASSEMBLER.WAREHOUSE DISTRIBUTION MANAGER Work Phone: Start: 12-17-2020 Lipid 1996 panel - Serum or Plasma Bill Foley BICYCLE SUBASSEMBLER.ELEMENTARY EDUCATION TUTOR Work Phone: Start: 06-27-2020 Colonoscopy Teo Padilla BICYCLE SUBASSEMBLER.WAREHOUSE DISTRIBUTION MANAGER Work Phone: Start: 04-16-2020 History of repair of musculotendinous cuff of shoulder S/P left rotator cuff repair Teo Padilla BICYCLE SUBASSEMBLER.WAREHOUSE DISTRIBUTION MANAGER Work Phone: Plan of Treatment Date Care Activity Detail Author Start: 04-20-2035 RSV Vaccine (1 - 1-dose 75+ series) RSV Vaccine (1 - 1-dose 75+ series) [facility] Start: 05-29-2031 DTaP/Tdap/Td vaccine (3 - Td or Tdap) DTaP/Tdap/Td vaccine (3 - Td or Tdap) [facility] Start: 05-29-2031 Urine microalbumin profile [facility] Start: 04-27-2029 Lipid panel Lipid Screening [facility] Start: 04-27-2029 Prostate specific antigen measurement Prostate Cancer Screening Discussion [facility] Start: 12-04-2027 Lipid 1996 panel - Serum or Plasma Lipid Screening [facility] Start: 12-04-2027 Lipid panel Lipid Screening [facility] Start: 04-28-2027 Diabetes Screening Diabetes Screening [facility] Start: 11-29-2026 Diabetes Screening Diabetes Screening [facility] Start: 12-17-2025 Lipid 1996 panel - Serum or Plasma Lipid Screening [facility] Start: 12-17-2025 LIPID SCREEN LIPID SCREEN [facility] Start: 12-03-2025 Diabetes Screening Diabetes Screening [facility] Start: 06-09-2025 Colonoscopy COLONOSCOPY [facility] Start: 06-09-2025 COLORECTAL CANCER SCREENING COLORECTAL CANCER SCREENING [facility] Start: 06-09-2025 Screening for malignant neoplasm of colon [facility] Start: 05-28-2025 PROSTATE CANCER SCREENING DISCUSSION PROSTATE CANCER SCREENING DISCUSSION [facility] Start: 05-28-2025 Prostate specific antigen measurement Prostate Cancer Screening Discussion [facility] Start: 04-27-2025 Annual PCP Team Chronic Disease Visit Annual PCP Team Chronic Disease Visit [facility] Start: 04-27-2025 BP Controlled (<130/80) BP Controlled (<130/80) [facility] Start: 04-27-2025 Covid-19 Vaccine ( season) Covid-19 Vaccine ( season) [facility] Comment on above: Postponed from 10/18/2023 (Declined at t his time) Start: 04-27-2025 Pneumococcal Vaccine: 50+ (1 of 1 - PCV) Pneumococcal Vaccine: 50+ (1 of 1 - PCV) [facility] Comment on above: Postponed from 2010 (Declined at t his time) Start: 04-27-2025 Shingrix Vaccine (1 of 2) Shingrix Vaccine (1 of 2) [facility] Comment on above: Postponed from 2010 (Declined at t his time) Start: 01-06-2025 DIABETES SCREEN DIABETES SCREEN [facility] Start: 01-06-2025 Diabetes Screening Diabetes Screening [facility] Start: 01-04-2025 DIABETES SCREEN DIABETES SCREEN [facility] Start: 12-26-2024 End: 12-26-2024 Patient encounter procedure 12/26/2024 2:00 PM EST Office Visit Cardiology [address] [place] [address] Yonathan Barajas MD [address] [facility], [address] [place] [address] 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] Cardiology Comment on above: 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] Start: 10-31-2024 End: 10-31-2024 Patient encounter procedure 10/31/2024 10:00 AM EDT Office Visit Family Medicine [facility] [address] [place], [place] [id number] Lauren Steen, BICYCLE SUBASSEMBLER.WAREHOUSE DISTRIBUTION MANAGER [address] [place] [address] 6 mo follow up/ wellness [facility] Comment on above: 6 mo follow up/ wellness Start: 10-28-2024 End: 10-28-2024 Patient encounter procedure 10/28/2024 2:00 PM EDT Office Visit Family [facility] [address] [place], [place] [id number] Lauren Steen, BICYCLE SUBASSEMBLER.WAREHOUSE DISTRIBUTION MANAGER [address] [place] [address] 6 mo follow up Family [facility] Comment on above: 6 mo follow up Start: 10-22-2024 DIABETES SCREEN DIABETES SCREEN [facility] Start: 10-17-2024 [facility]enza [facility] Start: 06-06-2024 DIABETES SCREEN DIABETES SCREEN [facility] Start: 05-27-2024 DIABETES SCREEN DIABETES SCREEN [facility] Start: 05-24-2024 End: 05-24-2024 Follow-up encounter 05/24/2024 9:00 AM EDT Distance Health [facility] [address] [facility] [place] [address] Teo Kaminski APRN.WAREHOUSE DISTRIBUTION MANAGER [address] [place] [address] 6 month follow up [facility] Comment on above: 6 month follow up Start: 05-10-2024 End: 05-10-2024 Patient encounter procedure 05/10/2024 1:50 PM EDT Office Visit Gastroenterology [facility] [address] [place] [phone] Renea Whalen APRN.WAREHOUSE DISTRIBUTION MANAGER [address] [place] [address] stomach pain, blood in stool G[facility]enter[facility] Comment on above: stomach pain, blood in stool Start: 04-27-2024 End: 07-27-2024 Comprehensive metabolic 2000 panel - Serum or Plasma [facility] Work Phone: Comment on above: Expected: 04/27/2024, Expires: Start: 04-27-2024 End: 07-27-2024 Lipid 1996 panel - Serum or Plasma [facility] Comment on above: Expected: 04/27/2024, Expires: Start: 04-27-2024 End: 07-27-2024 PSA/PROSTATE SPECIFIC ANTIGEN SCREENING [facility] Comment on above: Expected: 04/27/2024, Expires: Start: 04-27-2024 End: 07-27-2024 Thyrotropin [Units/volume] in Serum or Plasma [facility] Comment on above: Expected: 04/27/2024, Expires: Start: 04-27-2024 End: 04-27-2024 Patient encounter procedure 04/27/2024 11:00 AM EDT Office Visit Family Medicine [facility] [address] [place] [address] Errol Cary MD [address] [place] [address] physical Family Medicine [facility] Comment on above: physical Start: 04-11-2024 End: 04-11-2024 Patient encounter procedure 04/11/2024 2:00 PM EST Office Visit General Surgery [address] [place] [address] Ria Pulido APRN.WAREHOUSE DISTRIBUTION MANAGER [address] [place] [address] discuss treatment for H. Pylori. General Surgery Comment on above: discuss treatment for H. Pylori. Start: 04-05-2024 End: 07-05-2024 Helicobacter pylori IgG Ab [Presence] in Serum or Plasma by Immunoassay [facility] Work Phone: Comment on above: Expected: 04/05/2024, Expires: Start: 03-16-2024 End: 03-16-2024 Patient encounter procedure 03/16/2024 1:50 PM EST Office Visit [facility] [place] [address] [place] [phone] Renea Whalen APRN.[facility] [address] [place] [address] stomach pain, blood in stool [facility] [place] Comment on above: stomach pain, blood in stool Start: 02-17-2024 Medicare Advantage Annual Wellness Visit Medicare Advantage Annual Wellness Visit [facility] Start: 02-03-2024 End: 02-03-2024 Patient encounter procedure 02/03/2024 2:00 PM EST Office Visit [facility] 3rd [place] [address] Nahun Gustafson MD 1 [facility] [address] [place], [place] [id number] Post Op Lateral Internal Sphincterotomy [facility] Comment on above: Post Op Lateral Internal Sphincterotomy Start: 02-01-2024 End: 02-01-2024 Admission to same day surgery center 02/01/2024 2:35 PM EST - 02/01/2024 4:20 PM EST Surgery [facility] [address] [place] [address] Nahun Gustafson MD [address] [facility] [address] [place] [address] LATERAL INTERNAL SPHINCTEROTOMY [facility] Comment on above: LATERAL INTERNAL SPHINCTEROTOMY Start: 02-01-2024 End: 02-01-2024 Fissurectomy incl sphincterotomy when performed FISSURECTOMY ANAL Anal fissure 02/01/2024 2:35 PM EST [facility] Start: 02-01-2024 Subsequent hospital visit by physician 02/01/2024 2:35 PM EST Hospital Encounter [facility] [address] [place] [address] N[facility]un Gustafson MD [facility] [address] [place], [place] [id number] Anal fissure [K60.2] [facility] Comment on above: Anal fissure [K60.2] Start: 01-05-2024 End: 01-05-2024 Patient encounter procedure 01/05/2024 8:00 AM EST Appointment Ambulatory Surgery [address] [place] [phone] EGD, mailed reminder to patients home address Ambulatory Surgery Comment on above: EGD, mailed reminder to patients home ad dress Start: 12-18-2023 End: 12-18-2023 Patient encounter procedure 12/18/2023 3:00 PM EDT Appointment [facility] [address] [place] [id number] Liver lesion [K76.9] [facility] Comment on above: Liver lesion [K76.9] Start: 12-18-2023 DIABETES SCREEN DIABETES SCREEN [facility] Start: 12-09-2023 End: 12-09-2023 Patient encounter procedure 12/09/2023 1:30 PM EDT Office Visit [facility] [address] [facility] [address] [place] [address] Nahun Gustafson MD [address] [facility] [address] [place], [place] [id number] Ref for Rectal bleeding [K62.5] [facility] Comment on above: Ref for Rectal bleeding [K62.5] Start: 12-04-2023 Annual PCP Team Chronic Disease Visit Annual PCP Team Chronic Disease Visit [facility] Start: 12-02-2023 End: 11-29-2024 MR Liver WO and W contrast IV MRI LIVER WO/W IVCON Radiology Routine Liver lesion Expected: 12/02/2023, Expires: 11/29/[address] [facility] Work Phone: Comment on above: Expected: 12/02/2023, Expires: Start: 11-30-2023 End: 11-30-2023 Patient encounter procedure 11/30/2023 9:00 AM EDT Appointment [facility] [address] [place] [address] Bilateral upper abdominal pain [R10.11, R10.12] [facility] Comment on above: Bilateral upper abdominal pain [R10.11, R10.12] Start: 11-30-2023 End: 11-30-2023 ambulatory 11/30/2023 8:45 AM EDT Results Only [facility] [address] [place], [place] [id number] labs [facility] Comment on above: labs Start: 11-26-2023 End: 11-26-2023 Patient encounter procedure 11/26/2023 7:00 AM EDT Office Visit [facility] [address] [place] [address] Teo Kaminski APRN.WAREHOUSE DISTRIBUTION MANAGER [address] [facility] [place] [address] 2 month follow up [facility] Comment on above: 2 month follow up Start: 11-25-2023 End: 02-24-2024 CBC W Auto Differential panel - Blood COMPLETE BLOOD COUNT AND DIFFERENTIAL Lab Routine Bilateral upper abdominal pain Expected: 11/25/2023, Expires: 02/24/2024 [facility] Comment on above: Expected: 11/25/2023, Expires: Start: 11-25-2023 End: 02-24-2024 Comprehensive metabolic 2000 panel - Serum or Plasma COMPREHENSIVE METABOLIC PANEL Lab Routine Bilateral upper abdominal pain Expected: 11/25/2023, Expires: 02/24/2024 [facility] Comment on above: Expected: 11/25/2023, Expires: Start: 11-25-2023 End: 02-24-2024 Lipase [Enzymatic activity/volume] in Serum or Plasma LIPASE Lab Routine Bilateral upper abdominal pain Expected: 11/25/2023, Expires: 02/24/2024 [facility] Comment on above: Expected: 11/25/2023, Expires: 5 Start: 11-25-2023 End: 11-25-2023 Patient encounter procedure 11/25/2023 10:30 AM EDT Office Visit Gastroenterology [facility] [address] [place] [phone] Gia Ventura PA-C [address] [place] [address] EPICGASTIC PAIN [facility] [place] Comment on above: EPICGASTIC PAIN Start: 11-11-2023 BP Controlled (<130/80) BP Controlled (<130/80) [facility] Start: 10-18-2023 Covid-19 Vaccine ( season) Covid-19 Vaccine ( season) [facility] Start: 10-18-2023 Influenza vaccination [facility] Start: 10-06-2023 End: 01-05-2024 TOXASSURE FLEX 23, URINE TOXASSURE FLEX 23, URINE Lab Routine Other chronic pain Expected: 10/06/2023, Expires: 01/05/[address] [facility] Work Phone: Comment on above: Expected: 10/06/2023, Expires: Start: 10-05-2023 End: 10-05-2023 Patient encounter procedure 10/05/2023 1:15 PM EDT Office Visit General Surgery [address] [place], [place] [address] Yakov Etienne MD [address] [place] [phone] follow up General Surgery Comment on above: follow up Start: 09-29-2023 End: 09-29-2023 Patient encounter procedure 09/29/2023 7:00 AM EDT Office Visit [facility] [address] [place] [address] Teo Kaminski, BICYCLE SUBASSEMBLER.WAREHOUSE DISTRIBUTION MANAGER [address] [place] [address] 2 month follow up [facility] Comment on above: 2 month follow up Start: 08-13-2023 BP CONTROLLED (<130/80) BP CONTROLLED (<130/80) [facility] Start: 07-28-2023 End: 07-28-2023 Follow-up encounter 07/28/2023 7:15 AM EDT [facility] [address] [facility] [place] [address] Teo Kaminski, BICYCLE SUBASSEMBLER.WAREHOUSE DISTRIBUTION MANAGER [address] [place] [address] 1 month follow up Pain Management Comment on above: 1 month follow up Start: 07-21-2023 End: 07-21-2023 Admission to same day surgery center 07/21/2023 11:00 AM EDT - 07/21/2023 11:15 AM EDT Surgery [facility] PA[facility] MANAGEMENT [address] [place] [address] Zhen Franklin MD [address] [place] [address] ARTHROCENTESIS,ASPIRATI ON AND/OR INJECTION,MAJOR JOINT OR BURSA W/O US GUIDANCE MR PA[facility] Comment on above: ARTHROCENTESIS,ASPIRATION AND/OR INJECTI ON,MAJOR JOINT OR BURSA W/O US GUIDANCE Start: 07-21-2023 End: 07-21-2023 Arthrocentesis aspir&/inj major jt/bursa w/o us ARTHROCENTESIS,ASPIRATI ON AND/OR INJECTION,MAJOR JOINT OR BURSA W/O US GUIDANCE Osteoarthritis of both shoulders, unspecified osteoarthritis type 07/21/2023 11:00 AM EDT MR PAIN Start: 07-21-2023 Subsequent hospital visit by physician 07/21/2023 11:00 AM EDT Hospital Encounter MR PAIN MANAGEMENT [address] [place] [address] Zhen Franklin MD [address] [place] [address] Osteoarthritis of both shoulders, unspecified osteoarthritis type [M19.011, M19.012] MR PAIN MANAGEMENT Comment on above: Osteoarthritis of both shoulders, unspec ified osteoarthritis type [M19.011, M19.012] Start: 06-28-2023 Colonoscopy COLONOSCOPY [facility] Start: 06-28-2023 COLORECTAL CANCER SCREENING COLORECTAL CANCER SCREENING [facility] Start: 06-04-2023 ANNUAL PCP TEAM CHRONIC DISEASE VISIT ANNUAL PCP TEAM CHRONIC DISEASE VISIT [facility] Start: 04-25-2023 [facility] Start: 04-17-2023 ANNUAL PCP TEAM CHRONIC DISEASE VISIT ANNUAL PCP TEAM CHRONIC DISEASE VISIT [facility] Start: 04-17-2023 BP CONTROLLED (<130/80) BP CONTROLLED (<130/80) [facility] Start: 04-02-2023 BP CONTROLLED (<130/80) BP CONTROLLED (<130/80) [facility] Start: 03-03-2023 ANNUAL PCP TEAM CHRONIC DISEASE VISIT ANNUAL PCP TEAM CHRONIC DISEASE VISIT [facility] Start: 01-14-2023 BP CONTROLLED (<130/80) BP CONTROLLED (<130/80) [facility] Start: 01-04-2023 ANNUAL PCP TEAM CHRONIC DISEASE VISIT ANNUAL PCP TEAM CHRONIC DISEASE VISIT [facility] Start: 11-10-2022 End: 01-10-2023 TOXASSURE FLEX 23, URINE TOXASSURE FLEX 23, URINE Lab Routine High risk medication use Cervicalgia Other cervical disc degeneration, unspecified cervical region Chronic pain syndrome Expected: 11/10/2022, Expires: 01/10/[address] [facility] Work Phone: Comment on above: Expected: 11/10/2022, Expires: Start: 11-04-2022 ANNUAL PCP TEAM CHRONIC DISEASE VISIT ANNUAL PCP TEAM CHRONIC DISEASE VISIT [facility] Start: 10-17-2022 Covid-19 Vaccine () Covid-19 Vaccine () [facility] Start: 10-17-2022 Influenza vaccination [facility] Start: 10-16-2022 ANNUAL PCP TEAM CHRONIC DISEASE VISIT ANNUAL PCP TEAM CHRONIC DISEASE VISIT [facility] Start: 05-27-2022 ANNUAL PCP TEAM CHRONIC DISEASE VISIT ANNUAL PCP TEAM CHRONIC DISEASE VISIT [facility] Start: 05-27-2022 BP CONTROLLED (<130/80) BP CONTROLLED (<130/80) [facility] Start: 04-28-2022 End: 06-28-2022 TOXASSURE FLEX 23, URINE TOXASSURE FLEX 23, URINE Lab Routine High risk medication use Expected: 04/28/2022, Expires: 06/28/[address] [facility] Work Phone: Comment on above: Expected: 04/28/2022, Expires: 3 Start: 04-16-2022 End: 06-16-2022 HYPERCOAG DIAG PNL HYPERCOAG DIAG PNL Lab Routine Other acute pulmonary embolism without acute cor pulmonale (HCC) Expected: 04/16/2022, Expires: 06/16/[address] [facility] Work Phone: Comment on above: Expected: 04/16/2022, Expires: 3 Start: 04-05-2022 ANNUAL PCP TEAM CHRONIC DISEASE VISIT ANNUAL PCP TEAM CHRONIC DISEASE VISIT [facility] Start: 03-03-2022 End: 05-03-2022 CBC W Auto Differential panel - Blood [facility] Work Phone: Comment on above: Expected: 03/03/2022, Expires: 3 Start: 03-03-2022 End: 05-03-2022 Cobalamin (Vitamin B12) [Mass/volume] in Serum or Plasma [facility] Work Phone: Comment on above: Expected: 03/03/2022, Expires: 3 Start: 03-03-2022 End: 05-03-2022 Folate [Mass/volume] in Serum or Plasma [facility] Work Phone: Comment on above: Expected: 03/03/2022, Expires: 3 Start: 03-03-2022 End: 05-03-2022 SYPHILIS TOTAL W/REFLEX [facility] Work Phone: Comment on above: Expected: 03/03/2022, Expires: 3 Start: 03-03-2022 End: 05-03-2022 Thyrotropin [Units/volume] in Serum or Plasma [facility] Work Phone: Comment on above: Expected: 03/03/2022, Expires: 3 Start: 02-07-2022 End: 04-09-2022 Hepatic function 2000 panel - Serum or Plasma HEPATIC FUNCTION PNL Lab Routine Elevated liver enzymes Expected: 02/07/2022, Expires: 04/09/[address] [facility] Work Phone: Comment on above: Expected: 02/07/2022, Expires: 3 Start: 01-14-2022 End: 03-16-2022 Helicobacter pylori IgG Ab [Presence] in Serum or Plasma by Immunoassay H PYLORI IGG AB Lab Routine Epigastric pain Nausea Expected: 01/14/2022, Expires: 03/16/[address] [facility] Work Phone: Comment on above: Expected: 01/14/2022, Expires: 3 Start: 01-07-2022 End: 03-09-2022 Gamma glutamyl transferase [Enzymatic activity/volume] in Serum or Plasma GGT BLD Lab Routine Elevated liver enzymes Expected: 01/07/2022, Expires: 03/09/[address] [facility] Work Phone: Comment on above: Expected: 01/07/2022, Expires: 3 Start: 01-07-2022 End: 03-09-2022 Hepatic function 2000 panel - Serum or Plasma HEPATIC FUNCTION PNL Lab Routine Elevated liver enzymes Expected: 01/07/2022, Expires: 03/09/[address] [facility] Work Phone: Comment on above: Expected: 01/07/2022, Expires: 3 Start: 01-06-2022 End: 01-21-2023 25-hydroxyvitamin D3 [Mass/volume] in Serum or Plasma VITAMIN D 25 HYDROXY Lab Routine Hypocalcemia Expected: 01/06/2022, Expires: 03/08/[address] [facility] Work Phone: Comment on above: Expected: 01/06/2022, Expires: 3 Start: 01-06-2022 End: 03-08-2022 Calcium.ionized [Moles/volume] in Blood CALCIUM IONIZED BLOOD Lab Routine Hypocalcemia Expected: 01/06/2022, Expires: 03/08/[address] [facility] Work Phone: Comment on above: Expected: 01/06/2022, Expires: 3 Start: 01-06-2022 End: 03-08-2022 Comprehensive metabolic 2000 panel - Serum or Plasma COMP METABOLIC PANEL Lab Routine Hypocalcemia Expected: 01/06/2022, Expires: 03/08/[address] [facility] Work Phone: Comment on above: Expected: 01/06/2022, Expires: 3 Start: 01-06-2022 End: 03-08-2022 Magnesium [Mass/volume] in Serum or Plasma MAGNESIUM BLD Lab Routine Hypocalcemia Expected: 01/06/2022, Expires: 03/08/[address] [facility] Work Phone: Comment on above: Expected: 01/06/2022, Expires: 3 Start: 01-06-2022 End: 03-08-2022 Parathyrin.intact [Mass/volume] in Serum or Plasma PTH INTACT BLD Lab Routine Hypocalcemia Expected: 01/06/2022, Expires: 03/08/[address] [facility] Work Phone: Comment on above: Expected: 01/06/2022, Expires: 3 Start: 01-06-2022 End: 03-08-2022 Phosphate [Mass/volume] in Serum or Plasma PHOSPHORUS INORGANIC Lab Routine Hypocalcemia Expected: 01/06/2022, Expires: 03/08/[address] [facility] Work Phone: Comment on above: Expected: 01/06/2022, Expires: 3 Start: 10-22-2021 End: 12-22-2021 DRUG SCR TOXASURE DRUG SCR TOXASURE Lab Routine High risk medications (not anticoagulants) long-term use Expected: 10/22/2021, Expires: 12/22/[address] [facility] Work Phone: Comment on above: Expected: 10/22/2021, Expires: 2 Start: 10-21-2021 [facility] Work Phone: Start: 10-17-2021 Influenza vaccination [facility] Start: 10-16-2021 End: 12-16-2021 Basic metabolic 2000 panel - Serum or Plasma [facility] Work Phone: Comment on above: Expected: 10/16/2021, Expires: 2 Start: 10-08-2021 Viral nucleic acid assay [facility] Work Phone: Start: 10-08-2021 [facility] Work Phone: Start: 07-28-2021 End: 09-27-2021 T4 FREE/FREE THYROX T4 FREE/FREE THYROX Lab Routine Hypothyroidism, acquired Expected: 07/28/2021, Expires: 09/27/[address] [facility] Work Phone: Comment on above: Expected: 07/28/2021, Expires: 2 Start: 07-28-2021 End: 09-27-2021 Thyrotropin [Units/volume] in Serum or Plasma TSH BLD Lab Routine Hypothyroidism, acquired Expected: 07/28/2021, Expires: 09/27/[address] [facility] [address] [facility] Work Phone: Comment on above: Expected: 07/28/2021, Expires: 2 Start: 05-28-2021 End: 07-28-2021 Acute hepatitis 2000 panel - Serum HEP ACUTE PANEL BL Lab Routine Elevated liver enzymes Expected: 05/28/2021, Expires: 07/28/[address] [facility] Work Phone: Comment on above: Expected: 05/28/2021, Expires: 2 Start: 05-28-2021 FECAL OCCULT BLOOD FECAL OCCULT BLOOD [facility] Start: 05-28-2021 End: 07-28-2021 Gamma glutamyl transferase [Enzymatic activity/volume] in Serum or Plasma GGT BLD Lab Routine Elevated liver enzymes Expected: 05/28/2021, Expires: 07/28/[address] [facility] Work Phone: Comment on above: Expected: 05/28/2021, Expires: 2 Start: 05-28-2021 End: 07-28-2021 HEPATIC FUNCTION PNL HEPATIC FUNCTION PNL Lab Routine Elevated liver enzymes Expected: 05/28/2021, Expires: 07/28/[address] [facility] Work Phone: Comment on above: Expected: 05/28/2021, Expires: 2 Start: 05-28-2021 End: 07-28-2021 Lipase [Enzymatic activity/volume] in Serum or Plasma LIPASE BLD Lab Routine Elevated liver enzymes Expected: 05/28/2021, Expires: 07/28/[address] [facility] Work Phone: Comment on above: Expected: 05/28/2021, Expires: 2 Start: 05-28-2021 Screening for malignant neoplasm of colon Fecal Occult Blood [facility] Start: 04-24-2020 Urine microalbumin profile DTAP,TDAP,TD (2 - Td or Tdap) [facility] Start: 2020 RSV Vaccine (1 - 1-dose 60+ series) RSV Vaccine (1 - 1-dose 60+ series) [facility] Start: 2010 Pneumococcal Vaccine: 50+ (1 of 1 - PCV) Pneumococcal Vaccine: 50+ (1 of 1 - PCV) [facility] Start: 2010 Shingles vaccine (1 of 2) Shingles vaccine (1 of 2) [facility] Start: 2010 SHINGRIX VACCINE (1 of 2) SHINGRIX VACCINE (1 of 2) [facility] Start: 2005 COLOGUARD (FIT-DNA) COLOGUARD (FIT-DNA) [facility] Start: [address] COLONOGRAPHY [facility] Start: 2005 Screening for malignant neoplasm of colon [facility] Start: 2005 SIGMOIDOSCOPY SIGMOIDOSCOPY [facility] Start: 2000 Lipid panel Lipids [facility] Start: 1978 Anxiety Screening Anxiety Screening [facility] Start: 1978 BP CONTROLLED (<130/80) BP CONTROLLED (<130/80) [facility] Start: 1978 HEPATITIS C SCREENING HEPATITIS C SCREENING [facility] Start: 1978 Hepatitis C screening Hepatitis C screen [facility] Start: 1978 HIV SCREENING HIV SCREENING [facility] Start: 1978 HIV screening HIV Screening [facility] Start: 04-20-1975 HIV screening HIV screen [facility] Start: 1972 Depression Screen Depression Screen [facility] Start: 1965 COVID-19 VACCINE (#1) COVID-19 VACCINE (#1) [facility] Start: 1965 COVID-19 VACCINE (1) [facility] Start: 1960 COVID-19 VACCINE (#1) COVID-19 VACCINE (#1) [facility] Start: 1960 Annual Wellness Visit (AWV) Annual Wellness Visit (AWV) [facility] Arthrocentesis aspir&/inj major jt/bursa w/o us DRAIN/INJECT LARGE JOINT/BURSA Procedures Routine Osteoarthritis of both shoulders, unspecified osteoarthritis type Rotator cuff impingement syndrome, unspecified laterality Ordered: 08/05/[address] [facility] Work Phone: Comment on above: Ordered: 08/05/2021 Calprotectin [Mass/m ass] in Stool CALPROTECTIN,FECAL Lab Routine Diarrhea, unspecified type Ordered: 11/25/2023 [facility] Comment on above: Ordered: 11/25/2023 Clostridioides diffi cile toxin genes [Presence] in Stool by LINDA with probe detection C. DIFFICILE PCR Lab Routine Diarrhea, unspecified type Ordered: 11/25/2023 [facility] Comment on above: Ordered: 11/25/2023 End: 06-03-2023 COLONOSCOPY DIAGNOSTIC COLONOSCOPY DIAGNOSTIC Endoscopy Routine Anal bleeding Drug induced constipation 1 Occurrences starting 06/02/2022 until 06/03/[address] [facility] Work Phone: Comment on above: 1 Occurrences starting 06/02/2022 until 06/03/2023 End: 07-01-2023 ECG COMPLETE ECG COMPLETE ECG Routine Aorta disorder (HCC) 1 Occurrences starting 06/30/2022 until 07/01/[address] [facility] Work Phone: Comment on above: 1 Occurrences starting 06/30/2022 until 07/01/2023 End: 12-04-2023 Echocardiography ECHO Cardiology Routine Aorta disorder (HCC) 1 Occurrences starting 12/03/2022 until 12/04/[address] [facility] Work Phone: Comment on above: 1 Occurrences starting 12/03/2022 until 12/04/2023 End: 11-24-2024 EGD DIAGNOSTIC EGD DIAGNOSTIC Endoscopy Routine Bilateral upper abdominal pain 1 Occurrences starting 11/25/2023 until 11/24/[address] [facility] Work Phone: Comment on above: 1 Occurrences starting 11/25/2023 until 11/24/2024 End: 04-15-2023 EPIL EEG ROUTINE EPIL EEG ROUTINE NEUROLOGY Routine Mild cognitive impairment with memory loss 1 Occurrences starting 04/15/2022 until 04/15/[address] [facility] Work Phone: Comment on above: 1 Occurrences starting 04/15/2022 until 04/15/2023 Gastrointestinal pathogens panel - Stool by LINDA with probe detection EXPANDED STOOL GASTROINTESTINAL PANEL BY PCR Lab Routine Diarrhea, unspecified type Ordered: 11/25/2023 [facility] Comment on above: Ordered: 11/25/2023 H&P for surgery H&P FOR SURGERY Procedures Routine Anal fissure Ordered: 12/10/[address] [facility] Work Phone: Comment on above: Ordered: 12/10/2023 Helicobacter pylori Ag [Presence] in Stool by Immunoassay HELICOBACTER PYLORI ANTIGEN BY EIA, STOOL Microbiology Routine Helicobacter pylori infection Ordered: 04/11/[address] [facility] Work Phone: Comment on above: Ordered: 04/11/2024 End: 10-26-2021 Home O2 eval (desaturation screen) Home O2 eval (desaturation screen) Respiratory Care Routine One Time for 1 Occurrences starting 10/26/2021 until 10/26/2021 [facility] Work Phone: Comment on above: One Time for 1 Occurrences starting 10/17 until 10/26/2021 MR Liver WO and W contrast IV MRI LIVER WO/W IVCON Radiology Routine Liver lesion 12/18/2023 3:49 PM EDT [facility] Work Phone: End: 02-05-2022 Mri abdomen w/o & w/contrast material [facility] Work Phone: Comment on above: 1 Occurrences starting 02/05/2022 until 02/05/2022 End: 04-02-2023 Mri brain brain stem w/o contrast material MRI BRAIN WO IVCON Radiology Routine Mild cognitive impairment with memory loss Cognitive impairment, mild, so stated Headache, unspecified headache type 1 Occurrences starting 03/03/2022 until 04/02/[address] [facility] Work Phone: Comment on above: 1 Occurrences starting 03/03/2022 until 04/02/2023 NM CARDIAC PERF STRESS/PHARM NM CARDIAC PERF STRESS/PHARM Radiology Routine Chest pain, unspecified type 09/23/2021 10:33 AM EDT [facility] Work Phone: Oxygen therapy [[facility] Data Set] Initiate Oxygen Therapy Protocol Respiratory Care Routine As Needed until discontinued starting 10/22/2021 [facility] Work Phone: Comment on above: As Needed until discontinued starting PANC ELASTASE, FECAL PANC ELASTA SE, FECAL Lab Routine Diarrhea, unspecified type Ordered: 11/25/2023 [facility] Comment on above: Ordered: 11/25/2023 Patient Education [facility] Work Phone: Patient referral [facility] Work Phone: End: 05-28-2023 Radex spine cervical 4 or 5 views XR CERV OTHER 4V AP/LAT/FLX/EXT Radiology Routine Other cervical disc degeneration, unspecified cervical region 1 Occurrences starting 04/28/2022 until 05/28/[address] [facility] Work Phone: Comment on above: 1 Occurrences starting 04/28/2022 until 05/28/2023 SPEECH PLAN OF CARE CERTIFICATION SPEECH PLAN OF CARE CERTIFICATION Procedures Routine Memory loss Ordered: 05/06/[address] [facility] Work Phone: Comment on above: Ordered: 05/06/2022 SURGICAL PATHOLOGY [facility] Work Phone: Comment on above: Release Upon Ordering for 1 Occurrences starting 01/05/2024, 1 completed SURGICAL PATHOLOGY SURGICAL PATH OLOGY Lab Routine Anal fissure Release Upon Ordering for 1 Occurrences starting 02/01/[address] [facility] Work Phone: Comment on above: Release Upon Ordering for 1 Occurrences starting 02/01/2024 End: 12-24-2024 US Abdomen RUQ US ABD RIGHT UPPER QUADRANT Radiology Routine Bilateral upper abdominal pain 1 Occurrences starting 11/25/2023 until 12/24/2024 [facility] Comment on above: 1 Occurrences starting 11/25/2023 until 12/24/2024 US Abdomen RUQ US ABD RIGHT UPP ER QUADRANT Radiology Routine Bilateral upper abdominal pain 11/30/2023 9:42 AM EDT [facility] Work Phone: End: 02-06-2023 Us abdominal real time w/image limited US ABD RT UPPER QUADRANT Radiology Routine Elevated liver enzymes 1 Occurrences starting 01/07/2022 until 02/06/[address] [facility] Work Phone: Comment on above: 1 Occurrences starting 01/07/2022 until 02/06/2023 End: 12-24-2024 XR Abdomen Supine and Upright XR ABDOMEN 1V SUPINE Radiology Routine Diarrhea, unspecified type 1 Occurrences starting 11/25/2023 until 12/24/2024 [facility] Comment on above: 1 Occurrences starting 11/25/2023 until 12/24/2024 [facility] Immunizations Immunization Date Immunization Notes Care Provider [facility] 04-27-2024 influenza, seasonal, injectable Errol Cary MD Work Phone: [facility] 04-27-2024 influenza virus vaccine, unspecified formulation Errol Cary MD Work Phone: [facility] 05-28-2021 tetanus toxoid, redu che diphtheria toxoid, and acellular pertussis vaccine, adsorbed Lauren Haagen BICYCLE SUBASSEMBLER.WAREHOUSE DISTRIBUTION MANAGER Work Phone: [facility] 02-18-2019 influenza, injectabl e, quadrivalent, contains preservative Teo de Moises BICYCLE SUBASSEMBLER.WAREHOUSE DISTRIBUTION MANAGER Work Phone: [facility] 02-18-2019 influenza virus vaccine, unspecified formulation Bill Foley BICYCLE SUBASSEMBLER.ELEMENTARY EDUCATION TUTOR Work Phone: [facility] 11-30-2017 influenza, injectabl e, quadrivalent, contains preservative Teo de Moises BICYCLE SUBASSEMBLER.WAREHOUSE DISTRIBUTION MANAGER Work Phone: [facility] Work Phone: 11-27-2016 influenza, injectabl e, quadrivalent, contains preservative Teo de Moises BICYCLE SUBASSEMBLER.WAREHOUSE DISTRIBUTION MANAGER Work Phone: [facility] 12-25-2014 influenza, injectabl e, quadrivalent, contains preservative Teo de Moises BICYCLE SUBASSEMBLER.WAREHOUSE DISTRIBUTION MANAGER Work Phone: [facility] 12-25-2014 influenza, seasonal, injectable Teo Padilla BICYCLE SUBASSEMBLER.WAREHOUSE DISTRIBUTION MANAGER Work Phone: [facility] 12-31-2012 influenza virus vaccine, unspecified formulation Teo Mckinleyo BICYCLE SUBASSEMBLER.WAREHOUSE DISTRIBUTION MANAGER Work Phone: [facility] 04-24-2010 tetanus toxoid, redu che diphtheria toxoid, and acellular pertussis vaccine, adsorbed Teomoisés Mckinleyo BICYCLE SUBASSEMBLER.WAREHOUSE DISTRIBUTION MANAGER Work Phone: [facility] Work Phone: Payers Date Payer Category Payer Self-pay [id number] 2021 Medicare HUMANA MEDICARE HUMANA GOLD PLUS [id number] 2021-Present [phone] [address] [address] [place] [address] [facility] [id number] 2021 Medicare [id number] 2021 Medicare (Managed Care) HUMANA M EDICARE [id number] 2021 Medicare [id number] 2015 Unknown [facility] GABRIEL OCAMPO [id number] 2015-Present [phone] [address] [place] [address] [id number] 2015 Unknown [id number] 2012 Private Health Insurance [id number] 1960 Unknown [id number] 1960 Unknown [id number] Private Health Insurance [facility] [id number] Private Health Insurance Unknown [id number] Social History Date Type Detail Facility Start: 06-25-2011 End: 10-16-2021 Tobacco smoking status WYIS Never smoked tobacco [facility] Work Phone: Start: 06-25-2011 End: 10-16-2021 Tobacco use and exposure Smokeless tobacco non-user [facility] Work Phone: Start: 04-05-2021 End: 06-06-2024 Alcohol intake Current drinker of alcohol (finding) [facility] Start: 04-05-2021 End: 12-09-2023 Alcohol intake [facility] Start: 11-10-2019 History SDOH Alcohol Frequency 5 [facility] Start: 11-10-2019 End: 06-03-2022 History SDOH Alcohol Std Drinks 2 [facility] Start: 11-10-2019 End: 06-03-2022 History SDOH Alcohol Binge 3 [facility] Start: 10-13-2016 End: 12-09-2023 History SDOH Alcohol Comment 12 pack a week [facility] Start: 1960 Sex Assigned At Not on file [facility] Start: 04-22-2021 End: 01-14-2022 Exposure to SARS-CoV-2 (event) Not sure [facility] Work Phone: Start: 07-26-2021 End: 10-08-2021 Exposure to SARS-CoV-2 (event) Unable to assess [facility] Work Phone: Start: 08-12-2021 End: 08-22-2021 Exposure to SARS-CoV-2 (event) Yes [facility] Work Phone: Start: 1960 Sex Assigned At Male [facility] Start: 05-02-2021 End: 04-25-2023 Tobacco smoking status WYIS Unknown if ever smoked [facility] Start: 10-22-2021 History SDOH Alcohol Frequency 4 [facility] Start: 10-22-2021 End: 06-03-2022 History SDOH Social Connections Phone 98 [facility] Start: 10-22-2021 End: 06-03-2022 History SDOH Housing Places Lived 1 [facility] Start: 06-03-2022 End: 12-09-2023 Social connection and isolation panel [facility] In a typical week, h ow many times do you talk on the telephone with family, friends, or neighbors? Patient refused [facility] Do you belong to any clubs or organizations such as episcopalian groups, unions, fraternal or athletic groups, or school groups? No [facility] Are you now , , , , never or living with a partner? [facility] (I/We) worried wheth er (my/our) food would run out before (I/we) got money to buy more. DK or Refused [facility] Start: 09-09-2021 Gender identity Identifies as male gender (finding) [facility] Start: 09-09-2021 Sexual orientation Heterosexual (finding) [facility] How often to you hav e a drink containing alcohol? 2-3 time sa week [facility] How many standard dr inks containing alcohol do you have on a typical day? 3 or 4 [facility] How often do you hav e 6 or more drinks on 1 occasion? Less than monthly [facility] How hard is it for y ou to pay for the very basics like food, housing, medical care, and heating Hard [facility] (I/We) worried wheth er (my/our) food would run out before (I/we) got money to buy more. Sometimes true [facility] Start: 02-01-2024 Alcohol Comment 12 beers weekly [facility] Functional Status Date Assessment Result Facility 09-03-2015 Are you deaf, or do you have serious difficulty hearing No 09/03/2015 5:54 PM EDT Kaylen Pena III, MD No [facility] 09-03-2015 Are you blind, or do you have serious difficulty seeing, even when wearing glasses No 09/03/2015 5:54 PM EDT Kaylen Pena III, MD No [facility] 09-03-2015 Do you have serious difficulty walking or climbing stairs No 09/03/2015 5:54 PM EDT Kaylen Pena III, MD No [facility] 09-03-2015 Do you have difficul ty dressing or bathing No 09/03/2015 5:54 PM EDT Kaylen Pena III, MD No [facility] 09-03-2015 Because of a physica l, mental, or emotional condition, do you have difficulty doing errands alone such as visiting a physician's office or shopping No 09/03/2015 5:54 PM EDT Kaylen Pena III, MD No [facility] Mental Status Date Assessment Result Facility 10-21-2021 Cognitive function Level Of Cons ciousness Alert;Appropriate;Follows Commands;Drowsy [facility] Work Phone: 10-08-2021 Cognitive function Voice/Name [facility] Work Phone: 09-03-2015 Because of a physica l, mental, or emotional condition, do you have serious difficulty concentrating, remembering, or making decisions No 09/03/2015 5:54 PM EDT Kaylen Pena III, MD No [facility] Clinical Notes 01-06-2020 to 08-26-2024 Dennise Dow CPhT - 08/26/2024 3:01 PM EDTBYahaira Castellanos - 07/20/2024 12:41 PM EDTTelephone Encounter - Stacia Bartlett RN - 06/02/2024 11:57 AM EDTPatient InstructionsPatient Instructions Note Date & Type Note Facility 08-26-2024 Note HNO ID: [id number] Author: DENNISE DOW CPhT Service: ? Author Type: Sql Developer Dba Type: Progress Notes Filed: 08/26/2024 15:09 Note Text: Patient is identified through a medication adherence outreach initiative based on pharmacy claims data from: [employer] Medication Adherence Category: Hypertension First Review Attribution Status: Correct attribution Medication(s) Losartan 100 mg Medication Status per portal/Epic "Reconcile Dispense": Not filled Medication Status per Profile Review: No issues per profile review Patient/provider appropriate for outreach? Yes Patient identified by name and Outreach to patient: Spoke to patient Med Adherence Concern: Not taking, still active on med list What was primary intervention? Pt said he is not taking medications, aware, has another appointment with him in the fall Dennise Dow CPhT [facility] Pharmacy Team [facility] 08-26-2024 History of Present illness Narrative Patient is identified through a medication adherence outreach initiative based on pharmacy claims data from: [employer] Medication Adherence Category: Hypertension First Review Attribution Status: Correct attribution Medication(s) Losartan 100 mg Medication Status per portal/Epic "Reconcile Dispense": Not filled Medication Status per Profile Review: No issues per profile review Patient/provider appropriate for outreach? Yes Patient identified by name and Outreach to patient: Spoke to patient Med Adherence Concern: Not taking, still active on med list What was primary intervention? Pt said he is not taking medications, aware, has another appointment with him in the fall Dennise Dow CPhT [facility] Based Care Pharmacy Team documented in this encounter [facility] 08-26-2024 Note Patient Outreach ( POHE) ---- GERALD STALEY ([id number]) 1960 M Date Time Provider Department 08/26/24 ERROL CARY During your visit today, we recorded the following information about you: Dennise Dow CPhT 08/26/2024 3:09 PM Signed Patient is identified through a medication adherence outreach initiative based on pharmacy claims data from: [employer] Medication Adherence Category: Hypertension First Review Attribution Status: Correct attribution Medication(s) Losartan 100 mg Medication Status per portal/Epic "Reconcile Dispense": Not filled Medication Status per Profile Review: No issues per profile review Patient/provider appropriate for outreach? Yes Patient identified by name and Outreach to patient: Spoke to patient Med Adherence Concern: Not taking, still active on med list What was primary intervention? Pt said he is not taking medications, MD aware, has another appointment with him in the fall Dennise Dow CPhT [facility] Pharmacy Team Allergies As of Date: 08/26/2024 Noted Allergy Reaction BAKARI INHIBITORS 05/22/2016 3 - Cough DARVOCET A500 (PROPOXYPHENE N-BAKARI*04/24/2016 8 - GI Upset Date Reviewed: 04/27/2024 Reviewed by: Carole Eastman LPN - Fully Assessed Reason for Visit: Allied Health Visit [5] Cmt: Medication Adherence Outreach Prescriptions as of 08/26/2024 - triamterene-hydroCHLOROthiazide (MAXZIDE-25MG) 37.5-25 mg per tablet Take 1 tablet by mouth once daily. - losartan (COZAAR) 100 mg tablet Take 1 tablet by mouth once daily. - bismuth subsalicylate (PEPTO-BISMOL) 262 mg chewable tablet Take 2 tablets by mouth four times daily for 10 days. - omeprazole (PRILOSEC) 20 mg capsule Take 1 capsule by mouth two times a day for 10 days. - omeprazole (PRILOSEC) 40 mg capsule Take 1 capsule by mouth once daily. - diclofenac (VOLTAREN) 1 % topical gel Apply 4 g to affected area four times daily as needed (for pain). As Directed. Problem List As Of Date 08/26/2024 Noted Resolved SPRAIN SHOULDER/ARM NOS [[id number]] 06/22/2008 09/25/2008 Rotator cuff (capsule) sprain [S43.429A] 09/25/2008 05/22/2016 Primary hypertension [I10] 05/07/2009 Hyperlipidemia [E78.5] 05/07/2009 Hypogonadism male [E29.1] 04/25/2010 05/22/2016 Other chronic pain [G89.29] 11/12/2011 Onychomycosis due to dermatophyte [B35.1] 02/08/2013 04/24/2016 Sprain of rhomboid [S23.8XXA] 06/12/2015 05/22/2016 Cervical myofascial strain [S16.1XXA] 06/12/2015 05/22/2016 Shoulder strain [S46.919A] 06/12/2015 04/17/2017 Strain of right shoulder [S46.911A] 08/10/2015 05/22/2016 Cervical strain [S16.1XXA] 08/10/2015 05/22/2016 Situational depression [F43.21] 09/17/2015 05/22/2016 Reactive depression [F32.9] 10/05/2015 04/24/2016 Chronic right-sided low back pain with right-si*10/25/2015 05/22/2016 Heel pain, bilateral [M79.671, M79.672] 10/25/2015 05/22/2016 Chronic pain [G89.29] 11/09/2015 05/22/2016 Recurrent major depression in partial remission*04/24/2016 Umbilical hernia without obstruction and withou*06/05/2016 06/11/2016 Strain of other muscles, fascia and tendons at *11/10/2016 04/17/2017 Sprain of other specified parts of right should*11/10/2016 04/17/2017 Other cervical disc degeneration, unspecified c*04/29/2017 Bursitis of both shoulders [M75.51, M75.52] 01/04/2020 Other forms of angina pectoris (HCC) [I20.89] 01/06/2020 S/P left rotator cuff repair [Z98.890] 04/16/2020 Partial nontraumatic tear of left rotator cuff *04/16/2020 Hypothyroidism, acquired [E03.9] 05/28/2021 10/16/2021 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] 06/07/2021 Osteoarthritis of both shoulders [M19.011, M19.*08/05/2021 Cervicalgia [M54.2] 08/05/2021 Rotator cuff impingement syndrome [M75.40] 08/05/2021 Rotator cuff syndrome [M75.100] 09/09/2021 Obesity, Class II, BMI 35-39.9 [E66.812] 09/09/2021 04/27/2024 Subclinical hypothyroidism [E03.8] 10/16/2021 04/27/2024 Acute pulmonary embolism without acute cor pulm*11/04/2021 04/27/2024 Constipation due to opioid therapy [K59.03, T40*11/06/2021 High risk medications (not anticoagulants) long*12/20/2021 04/27/2024 Cavernous malformation [Q28.3] 03/28/2022 Mild cognitive impairment with memory loss [G31*03/28/2022 Obesity, Class I, BMI 30-34.9 [E66.811] 06/30/2022 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] 01/16/2020 Diagnosed: 11/10/2022 Osteoarthritis of shoulder [M19.019] 04/15/2021 Diagnosed: 11/10/2022 COVID-19 [U07.1] 10/22/2021 04/27/2024 Diagnosed: 11/10/2022 Dehydration [E86.0] 11/10/2022 04/27/2024 Diagnosed: 11/10/2022 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 [facility] 07-20-2024 Note HNO ID: [id number] Author: ?, ?, ? Service: ? Author Type: ? Type: Progress Notes Filed: 07/20/2024 12:47 Note Text: POPULATION HEALTH NAVIGATION OUTREACH Action/FYI Patient outreach for HCC gaps; AWV. Spoke to patient and noticed his follow up with his pcp needed to be rescheduled. Rescheduled follow up and scheduled wellness. 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 Spoke to patient and noticed his follow up with his pcp needed to be rescheduled. Rescheduled follow up and scheduled wellness. 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 Spoke to patient and noticed his follow up with his pcp needed to be rescheduled. Rescheduled follow up and scheduled wellness. Reason for Outreach Care Gap/HCC or Scheduling Wellness Visits Care Gaps due: Medicare Annual Wellness Visit Patient Contacted: Spoke to patient/parent/or legal guardian Patient identified by name and : Yes Care Gap/HCC/Scheduling Wellness actions taken: Patient scheduled/pended orders: Medicare Annual Wellness Visit 10/31/[address] 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 - losartan (COZAAR) 100 mg tablet Take 1 tablet by mouth once daily. - bismuth subsalicylate (PEPTO-BISMOL) 262 mg chewable tablet Take 2 tablets by mouth four times daily for 10 days. - omeprazole (PRILOSEC) 20 mg capsule Take 1 capsule by mouth two times a day for 10 days. - omeprazole (PRILOSEC) 40 mg capsule Take 1 capsule by mouth once daily. - diclofenac (VOLTAREN) 1 % topical gel Apply 4 g to affected area four times daily as needed (for pain). As Directed. Problem List As Of Date 07/20/2024 Noted Resolved SPRAIN SHOULDER/ARM NOS [[id number]] 06/22/2008 09/25/2008 Rotator cuff (capsule) sprain [S43.429A] 09/25/2008 05/22/2016 Primary hypertension [I10] 05/07/2009 Hyperlipidemia [E78.5] 05/07/2009 Hypogonadism male [E29.1] 04/25/2010 05/22/2016 Other chronic pain [G89.29] 11/12/2011 Onychomycosis due to dermatophyte [B35.1] 02/08/2013 04/24/2016 Sprain of rhomboid [S23.8XXA] 06/12/2015 05/22/2016 Cervical myofascial strain [S16.1XXA] 06/12/2015 05/22/2016 Shoulder strain [S46.919A] 06/12/2015 04/17/2017 Strain of right shoulder [S46.911A] 08/10/2015 05/22/2016 Cervical strain [S16.1XXA] 08/10/2015 05/22/2016 Situational depression [F43.21] 09/17/2015 05/22/2016 Reactive depression [F32.9] 10/05/2015 04/24/2016 Chronic right-sided low back pain with right-si*10/25/2015 05/22/2016 Heel pain, bilateral [M79.671, M79.672] 10/25/2015 05/22/2016 Chronic pain [G89.29] 11/09/2015 05/22/2016 Recurrent major depression in partial remission*04/24/2016 Umbilical hernia without obstruction and withou*06/05/2016 06/11/2016 Strain of other muscles, fascia and tendons at *11/10/2016 04/17/2017 Sprain of other specified parts of right should*11/10/2016 04/17/2017 Other cervical disc degeneration, unspecified c*04/29/2017 Bursitis of both shoulders [M75.51, M75.52] 01/04/2020 Other forms of angina pectoris (HCC) [I20.89] 01/06/2020 S/P left rotator cuff repair [Z98.890] 04/16/2020 Partial nontraumatic tear of left rotator cuff *04/16/2020 Hypothyroidism, acquired [E03.9] 05/28/2021 10/16/2021 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] 06/07/2021 Osteoarthritis of both shoulders [M19.011, M19.*08/05/2021 Cervicalgia [M54.2] 08/05/2021 Rotator cuff impingement syndrome [M75.40] 08/05/2021 Rotator cuff syndrome [M75.100] 09/09/2021 Obesity, Class II, BMI 35-39.9 [E66.812] 09/09/2021 04/27/2024 Subclinical hypothyroidism [E03.8] 10/16/2021 04/27/2024 Acute pulmonary embolism without acute cor pulm*11/04/2021 04/27/2024 Constipation due to opioid therapy [K59.03, T40*11/06/2021 High risk medications (not anticoagulants) long*12/20/2021 04/27/2024 Cavernous malformation [Q28.3] 03/28/2022 Mild cognitive impairment with memory loss [G31*03/28/2022 Obesity, Class I, BMI 30-34.9 [E66.811] 06/30/2022 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] 01/16/2020 Diagnosed: 11/10/2022 Osteoarthritis of shoulder [M19.019] 04/15/2021 Diagnosed: 11/10/2022 COVID-19 [U07.1] 10/22/2021 04/27/2024 Diagnosed: 11/10/2022 Dehydration [E86.0] 11/10/2022 04/27/2024 Diagnosed: 11/10/2022 detention (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 of opiate analgesic [Z7*12/16/2016 04/27/2024 Diagnosed: 11/10/2022 Superior glenoid labrum lesion of left shoulder*01/16/2020 Diagnosed: 11/10/2022 Tear of supraspinatus tendon [M75.100] 01/16/2020 Diagnosed: 11/10/2022 Myofascial pain syndrome [M79 (more content not included)... [facility] 06-02-2024 Telephone encounter Note The patient has been identified by name and date of : Yes Caregiver verified no other encounters exist for this prescription request: Yes Caregiver confirmed with patient/requestor that no other refills are due, in the near future, with this provider at this time: Yes Requested Prescriptions Pending Prescriptions Disp Refills omeprazole (PRILOSEC) 20 mg capsule 20 capsule 0 Sig: Take 1 capsule by mouth two times a day for 10 days. Stacia Bartlett RN [facility] 06-02-2024 Miscellaneous Notes The patient has been identified by name and date of : Yes Caregiver verified no other encounters exist for this prescription request: Yes Caregiver confirmed with patient/requestor that no other refills are due, in the near future, with this provider at this time: Yes Requested Prescriptions Pending Prescriptions Disp Refills omeprazole (PRILOSEC) 20 mg capsule 20 capsule 0 Sig: Take 1 capsule by mouth two times a day for 10 days. Stacia Bartlett RN documented in this encounter [facility] 04-27-2024 Note HNO ID: [id number] Author: ERROL CARY MD Service: ? Author Type: Physician Type: Progress Notes Filed: 04/27/2024 15:41 Note Text: Patient presents with: Physical Hypertension HPI: Patient presents today for office visit for follow up. Since last appt has seen surgery and treated for h pylori Also treated for an anal fissure Had mri of liver that showed fatty liver Last saw cardiology in 2022. Overdue for follow up . Was seeing neurology and psych. Appears he has not been back. Has stopped seeing pain management. He is off his pain meds. He feels his memory is stable. Seems to be doing better today. He feels emotionally he is doing ok. Wants to get back to work and does not want to take meds. Energy level is poor. Has issues losing weight. No chest pain or shortness of breath. No edema. I have not see patient since 05/2022, copied and pasted:from that note Stopped Omeprazole. He said he doesn't notice [...] a cardiology follow up too as well. MEDICATIONS: Current Outpatient Medications Medication Sig losartan (COZAAR) 100 mg tablet Take 1 tablet by mouth once daily. triamterene-hydroCHLOROthiazide (MAXZIDE-25MG) 37.5-25 mg per tablet Take 1 tablet by mouth once daily. bismuth subsalicylate (PEPTO-BISMOL) 262 mg chewable tablet Take 2 tablets by mouth four times daily for 10 days. omeprazole (PRILOSEC) 20 mg capsule Take 1 capsule by mouth two times a day for 10 days. omeprazole (PRILOSEC) 40 mg capsule Take 1 capsule by mouth once daily. diclofenac (VOLTAREN) 1 % topical gel Apply 4 g to affected area four times daily as needed (for pain). As Directed. No current facility-administered medications for this visit. ALLERGIES: ALLERGIES Allergen Reactions Bakari Inhibitors Cough Darvocet A500 [Prop* GI Upset PAST MEDICAL HISTORY Diagnosis Date Abnormal EKG 04/23/2017 inf [place] age undetermined Acute pulmonary embolism without acute cor pulmonale (HCC) Adenomatous colon polyp Anal fissure Anxiety Aorta disorder (HCC) Bipolar 2 disorder (HCC) Chicken pox Colon polyps Depression ED (erectile dysfunction) GERD (gastroesophageal reflux disease) Headache Hemorrhoid HTN (hypertension) Hypogonadism male 04/25/2010 Hypothyroidism Myofascial pain dysfunction syndrome Obesity Osteoarthritis of multiple joints Pulmonary embolism (HCC) Rectal bleed Shingles Shoulder [...] - small - 5 year follow up EGD DIAGNOSTIC 12/2023 ESOPHAGOGASTRODUODENOSCOPY TRANSORAL DIAGNOSTIC 05/25/2018 Duodenitis, Gastritis FOOT SURGERY HX Right 2013 Cheilectomy, 1st metatarsophalangeal joint, HEMORRHOID;BAND LIGAT, SNGL/MUL 02/01/2024 OPEN REPAIR OF ROTATOR CUFF ACUTE Right 10/2016 Rotator cuff repair - Dr. Santamaria RECONSTRUCTION ROTATOR CUFF AVULSION CHRONIC Left 03/21/2010 Dr. Gant - Amber REPAIR UMBILICAL HERNIA 2016 RPR UMBILICAL HRNA 5 YRS/> REDUCIBLE 06/11/2016 simple SKIN GRAFT HX Right 1986 eyelid TONSILLECTOMY HX Childhood FAMILY HISTORY Problem Relation Age of Onset Diabetes Mother Hypertension Mother Arthritis Mother Breast Cancer Mother Dementia Mother Cancer Father throat Asthma No Family History Colon Cancer No Family History Social History Tobacco Use Smoking status: Never Smokeless tobacco: Never Vaping Use Vaping status: Never Used Substance Use Topics Alcohol use: Yes Alcohol/week: 6.0 standard drinks of alcohol Types: 6 Cans of Beer (12o (more content not included)... [facility] 04-27-2024 History of Present illness Narrative Patient presents with: Physical Hypertension HPI: Patient presents today for office visit for follow up. Since last appt has seen surgery and treated for h pylori Also treated for an anal fissure Had mri of liver that showed fatty liver Last saw cardiology in 2022. Overdue for follow up . Was seeing neurology and psych. Appears he has not been back. Has stopped seeing pain management. He is off his pain meds. He feels his memory is stable. Seems to be doing better today. He feels emotionally he is doing ok. Wants to get back to work and does not want to take meds. Energy level is poor. Has issues losing weight. No chest pain or shortness of breath. No edema. I have not see patient since 05/2022, copied and pasted:from that note Stopped Omeprazole. He said he doesn't notice [...] a cardiology follow up too as well. MEDICATIONS: Current Outpatient Medications Medication Sig losartan (COZAAR) 100 mg tablet Take 1 tablet by mouth once daily. triamterene-hydroCHLOROthiazide (MAXZIDE-25MG) 37.5-25 mg per tablet Take 1 tablet by mouth once daily. bismuth subsalicylate (PEPTO-BISMOL) 262 mg chewable tablet Take 2 tablets by mouth four times daily for 10 days. omeprazole (PRILOSEC) 20 mg capsule Take 1 capsule by mouth two times a day for 10 days. omeprazole (PRILOSEC) 40 mg capsule Take 1 capsule by mouth once daily. diclofenac (VOLTAREN) 1 % topical gel Apply 4 g to affected area four times daily as needed (for pain). As Directed. No current facility-administered medications for this visit. ALLERGIES: ALLERGIES Allergen Reactions Bakari Inhibitors Cough Darvocet A500 [Prop* GI Upset PAST MEDICAL HISTORY Diagnosis Date Abnormal EKG 04/23/2017 inf [place] age undetermined Acute pulmonary embolism without acute cor pulmonale (HCC) Adenomatous colon polyp Anal fissure Anxiety Aorta disorder (HCC) Bipolar 2 disorder (HCC) Chicken pox Colon polyps Depression ED (erectile dysfunction) GERD (gastroesophageal reflux disease) Headache Hemorrhoid HTN (hypertension) Hypogonadism male 04/25/2010 Hypothyroidism Myofascial pain dysfunction syndrome Obesity Osteoarthritis of multiple joints Pulmonary embolism (HCC) Rectal bleed Shingles Shoulder [...] - small - 5 year follow up EGD DIAGNOSTIC 12/2023 ESOPHAGOGASTRODUODENOSCOPY TRANSORAL DIAGNOSTIC 05/25/2018 Duodenitis, Gastritis FOOT SURGERY HX Right 2013 Cheilectomy, 1st metatarsophalangeal joint, HEMORRHOID;BAND LIGAT, SNGL/MUL 02/01/2024 OPEN REPAIR OF ROTATOR CUFF ACUTE Right 10/2016 Rotator cuff repair - Dr. Santamaria RECONSTRUCTION ROTATOR CUFF AVULSION CHRONIC Left 03/21/2010 Dr. Gant - [place] REPAIR UMBILICAL HERNIA 2017 RPR UMBILICAL HRNA 5 YRS/> REDUCIBLE 06/11/2016 simple SKIN GRAFT HX Right 1986 eyelid TONSILLECTOMY HX Childhood FAMILY HISTORY Problem Relation Age of Onset Diabetes Mother Hypertension Mother Arthritis Mother Breast Cancer Mother Dementia Mother Cancer Father throat Asthma No Family History Colon Cancer No Family History Social History Tobacco Use Smoking status: Never Smokeless tobacco: Never Vaping Use Vaping status: Never Used Substance Use Topics Alcohol use: Yes Alcohol/week: 6.0 standard drinks of alcohol Types: 6 Cans of Beer (12oz) per week Comment: 12 beers weekly Drug use: Not Currently Comment: no longer using. Reviewed current medications, allergies, past medical history, surgical history, family history and social history today. REVIEW OF SYSTEMS All other reviewed and negative other than HPI. HEALTH MAINTENANCE: Reviewed health maintenance issues today and recommended the following in detail. Anxiety Screening Never done HIV Screening Never done BP Controlled (<130/80) Never done Shingrix Vaccine(1 of 2) Never done Pneumococcal Vaccine: 50+(1 of 1 - PCV) Never done Influenza Vaccine(1) due on 10/18/2023 Covid-19 Vaccine(2023- season) Never done VITALS: BP 104/72 Pulse (!) 47 Wt 89.8 kg (198 lb) SpO2 100% BMI 33.99 kg/m Last 4 Encounter Wt Readings: Date: Wt: 04/27/2024 89.8 kg (198 lb) 04/11/2024 91.2 kg (201 lb) 02/03/2024 88.9 kg (196 lb) 01/05/2024 88 kg (194 lb) PHYSICAL EXAMINATION: General appearance: Well appearing, alert, in no acute distress, well-hydrated, well nourished. Skin: Skin color, texture, turgor normal, no suspicious rashes or lesions Head: Normocephalic, no masses, lesions, tenderness or abnormalitie Lungs: Lungs clear to auscultation. No wheezing, rhonchi, rales Heart: RRR without murmur, gallop, or rubs. No ectopy Abdomen: Normal abdominal exam, Abdomen soft, non-tender. Bowel sounds normal. No masses, organomegaly Extremities: No deformities, edema, skin discoloration, clubbing or cyanosis. Good capillary refill. Musculoskeletal: No joint swelling, deformity, or tenderness ASSESSMENT/PLAN: 1. Essential hypertension, benign - ICD9: 401.1, ICD10: I10 (primary diagnosis) - Controlled - Continue current medications - TRIAMTERENE 37.5 MG-HYDROCHLOROTHIAZIDE 25 MG TABLET - LOSARTAN 100 MG TABLET 2. Encounter for immunization - ICD9: V03.89, ICD10: Z23 - INFLUENZA VACCINE, AGE 6MO-64YR, TRIVALENT (AFLURIA, FLULAVAL, FLUVIRIN, FLUZONE) 3. Hyperlipidemia, unspecified hyperlipidemia type - ICD9: 272.4, ICD10: E78.5 - Controlled - Continue current medications 4. Mild cognitive impairment with memory loss - ICD9: 331.83, ICD10: G31.84 - follow up. - LIPID PANEL BASIC 5. Other acute pulmonary embolism without acute cor pulmonale (HCC) - ICD9: 415.19, ICD10: I26.99 - stable. 6. Aorta disorder (HCC) - ICD9: 447.9, ICD10: I77.9 - CONSULT TO CARDIOLOGY - due for follow up. 7. Hypothyroidism, unspecified type - ICD9: 244.9, ICD10: E03.9 - continue current meds. - COMPLETE BLOOD COUNT AND DIFFERENTIAL - COMPREHENSIVE METABOLIC PANEL - THYROID STIMULATING HORMONE 8. Other cervical disc degeneration, unspecified cervical region - ICD9: 722.4, ICD10: M50.30 - stable. 9. Recurrent major depression in partial remission (HCC) - ICD9: 296.35, ICD10: F33.41 - stable. 10. Bipolar 2 disorder (HCC) - ICD9: 296.89, ICD10: F31.81 - stable. 11. Obesity, Class I, BMI 30-34.9 - ICD9: 278.00, ICD10: E66.811 - stable. 12. Fatty liver - ICD9: 571.8, ICD10: K76.0 - stable. Follow labs. 13. Screening for prostate cancer - ICD9: V76.44, ICD10: Z12.5 - PSA/PROSTATE SPECIFIC ANTIGEN SCREENING Errol Cary RTO in six months. and prn. documented in this encounter [facility] 04-25-2024 Telephone encounter Note Prescription Refill Information The patient has been identified by name and date of : Yes Caregiver verified no other encounters exist for this prescription request: Yes Caregiver confirmed with patient/requestor that no other refills are due, in the near future, with this provider at this time: Yes The last office visit in the department: 12/03/22 Does the patient have a future office visit with this provider/department: Yes 04/27/24 Requested Prescriptions Pending Prescriptions Disp Refills losartan (COZAAR) 100 mg tablet 90 tablet 0 Sig: Take 1 tablet by mouth once daily. triamterene-hydroCHLOROthiazide (MAXZIDE-25MG) 37.5-25 mg per tablet 90 tablet 0 Sig: Take 1 tablet by mouth once daily. Estrellita Hayes LPN April 25, 2024 10:35 AM [facility] 04-25-2024 Miscellaneous Notes Prescription Refill Information The patient has been identified by name and date of : Yes Caregiver verified no other encounters exist for this prescription request: Yes Caregiver confirmed with patient/requestor that no other refills are due, in the near future, with this provider at this time: Yes The last office visit in the department: 12/03/22 Does the patient have a future office visit with this provider/department: Yes 04/27/24 Requested Prescriptions Pending Prescriptions Disp Refills losartan (COZAAR) 100 mg tablet 90 tablet 0 Sig: Take 1 tablet by mouth once daily. triamterene-hydroCHLOROthiazide (MAXZIDE-25MG) 37.5-25 mg per tablet 90 tablet 0 Sig: Take 1 tablet by mouth once daily. Estrellita Hayes LPN April 25, 2024 10:35 AM documented in this encounter [facility] 04-13-2024 Note HNO ID: [id number] Author: DARA PUTNAM MA Service: ? Author Type: Tile Setter Supervisor Type: Progress Notes Filed: 04/13/2024 12:03 Note Text: POPULATION HEALTH NAVIGATION OUTREACH Action/FYI msg to schedule wellness, hcc gap closure, influenza, bp to be addressed as not compliant not <130/80 Reason for Outreach Care Gap/HCC or Scheduling Wellness Visits Care Gaps due: Medicare Annual Wellness Visit Controlling Blood Pressure Flu Vaccine Patient Contacted: Unable or unnecessary to reach patient: Unable to leave message [employer] message sent HCC related Navigation Signature: Dara Putnam MA April 13, 2024 12:03 PM [facility] 04-13-2024 History of Present illness Narrative POPULATION HEALTH NAVIGATION OUTREACH Action/FYI msg to schedule wellness, hcc gap closure, influenza, bp to be addressed as not compliant not <130/80 Reason for Outreach Care Gap/HCC or Scheduling Wellness Visits Care Gaps due: Medicare Annual Wellness Visit Controlling Blood Pressure Flu Vaccine Patient Contacted: Unable or unnecessary to reach patient: Unable to leave message [facility] [employer] message sent HCC related Navigation Signature: Dara Putnam MA April 13, 2024 12:03 PM documented in this encounter [facility] 04-13-2024 Note Patient Outreach (NE TNAV) ---- GERALD STALEY ([id number]) 1960 M Date Time Provider Department 04/13/24 DARA PUTNAM During your visit today, we recorded the following information about you: Dara Putnam MA 04/13/2024 12:03 PM Signed POPULATION HEALTH NAVIGATION OUTREACH Action/FYI msg to schedule wellness, hcc gap closure, influenza, bp to be addressed as not compliant not <130/80 Reason for Outreach Care Gap/HCC or Scheduling Wellness Visits Care Gaps due: Medicare Annual Wellness Visit Controlling Blood Pressure Flu Vaccine Patient Contacted: Unable or unnecessary to reach patient: Unable to leave message [facility] [employer] message sent HCC related Navigation Signature: Dara Putnam MA April 13, 2024 12:03 PM Allergies As of Date: 04/13/2024 Noted Allergy Reaction BAKARI INHIBITORS 05/22/2016 3 - Cough DARVOCET A500 (PROPOXYPHENE N-BAKARI*04/24/2016 8 - GI Upset Date Reviewed: 04/11/2024 Reviewed by: Ria Pulido APRN.WAREHOUSE DISTRIBUTION MANAGER - Fully Assessed Reason for Visit: Population Health Navigation Outreach [3910] Cmt: dillon shepard joe Prescriptions as of 04/13/2024 - bismuth subsalicylate (PEPTO-BISMOL) 262 mg chewable tablet Take 2 tablets by mouth four times daily for 10 days. - doxycycline hyclate (VIBRAMYCIN) 100 mg capsule Take 1 capsule by mouth two times a day for 10 days. - metroNIDAZOLE (FLAGYL) 250 mg tablet Take 1 tablet by mouth four times daily for 10 days. - omeprazole (PRILOSEC) 20 mg capsule Take 1 capsule by mouth two times a day for 10 days. - losartan (COZAAR) 100 mg tablet Take 1 tablet by mouth once daily. - triamterene-hydroCHLOROthiazide (MAXZIDE-25MG) 37.5-25 mg per tablet Take 1 tablet by mouth once daily. - omeprazole (PRILOSEC) 40 mg capsule Take 1 capsule by mouth once daily. - diclofenac (VOLTAREN) 1 % topical gel Apply 4 g to affected area four times daily as needed (for pain). As Directed. Problem List As Of Date 04/13/2024 Noted Resolved SPRAIN SHOULDER/ARM NOS [OCG4684] 06/22/2008 09/25/2008 Rotator cuff (capsule) sprain [S43.429A] 09/25/2008 05/22/2016 Primary hypertension [I10] 05/07/2009 Hyperlipidemia [E78.5] 05/07/2009 Hypogonadism male [E29.1] 04/25/2010 05/22/2016 Other chronic pain [G89.29] 11/12/2011 Onychomycosis due to dermatophyte [B35.1] 02/08/2013 04/24/2016 Sprain of rhomboid [S23.8XXA] 06/12/2015 05/22/2016 Cervical myofascial strain [S16.1XXA] 06/12/2015 05/22/2016 Shoulder strain [S46.919A] 06/12/2015 04/17/2017 Strain of right shoulder [S46.911A] 08/10/2015 05/22/2016 Cervical strain [S16.1XXA] 08/10/2015 05/22/2016 Situational depression [F43.21] 09/17/2015 05/22/2016 Reactive depression [F32.9] 10/05/2015 04/24/2016 Chronic right-sided low back pain with right-si*10/25/2015 05/22/2016 Heel pain, bilateral [M79.671, M79.672] 10/25/2015 05/22/2016 Chronic pain [G89.29] 11/09/2015 05/22/2016 Recurrent major depression in partial remission*04/24/2016 Umbilical hernia without obstruction and withou*06/05/2016 06/11/2016 Strain of other muscles, fascia and tendons at *11/10/2016 04/17/2017 Sprain of other specified parts of right should*11/10/2016 04/17/2017 Other cervical disc degeneration, unspecified c*04/29/2017 Bursitis of both shoulders [M75.51, M75.52] 01/04/2020 Other forms of angina pectoris (HCC) [I20.89] 01/06/2020 S/P left rotator cuff repair [Z98.890] 04/16/2020 Partial nontraumatic tear of left rotator cuff *04/16/2020 Hypothyroidism, acquired [E03.9] 05/28/2021 10/16/2021 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] 06/07/2021 Osteoarthritis of both shoulders [M19.011, M19.*08/05/2021 Cervicalgia [M54.2] 08/05/2021 Rotator cuff impingement syndrome [M75.40] 08/05/2021 Rotator cuff syndrome [M75.100] 09/09/2021 Obesity, Class II, BMI 35-39.9 [E66.812] 09/09/2021 Subclinical hypothyroidism [E03.8] 10/16/2021 Acute pulmonary embolism without acute cor pulm*11/04/2021 Constipation due to opioid therapy [K59.03, T40*11/06/2021 High risk medications (not anticoagulants) long*12/20/2021 Cavernous malformation [Q28.3] 03/28/2022 Mild cognitive impairment with memory loss [G31*03/28/2022 Obesity, Class I, BMI 30-34.9 [E66.811] 06/30/2022 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] 01/16/2020 Diagnosed: 11/10/2022 Osteoarthritis of shoulder [M19.019] 04/15/2021 Diagnosed: 11/10/2022 COVID-19 [U07.1] 10/22/2021 Diagnosed: 11/10/2022 Dehydration [E86.0] 11/10/2022 Diagnosed: 11/10/2022 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 [facility] 04-11-2024 Instructions Ria Pulido APRN.WAREHOUSE DISTRIBUTION MANAGER - 04/11/2024 2:02 PM EST - Complete Prevpac * Pepto-bismal 262mg 1 tablet 4 times a day x 10 days * Doxycycline 100mg 1 tablet 2 times a day x 10 days * Metronidazole 500mg 1 tablet 3 times a day x 10 days * Prilosec 20mg 1 tablet 2 times a day x 10 days - complete stool test 4 weeks after completion of Prevpac * must hold PPI 2 weeks prior to stool test - After stool test continue to take Prilosec 40mg for 3 months INSTRUCTIONS FOR PEPTIC ULCER DISEASE/GASTRITIS - H PYLORI POSITIVE I discussed with you the findings of your upper endoscopy. Your upper endoscopy demonstrated signs of peptic ulcer disease or irritation. This can be seen as a range of issues from actual ulcers in the stomach or duodenum (first part of the small bowel) or irritation ranging from redness to more significant irritation with erosions of the stomach or duodenum. Your gastric biopsy demonstrated that your stomach has the H. Pylori bacteria. H. Pylori bacteria have been show to cause ulcers and gastritis. You will be given medications to eradicate that bacteria. If you are allergic to any of the medications, different combinations can be prescribed. These medications are usually given for 10-14 days. After that time, the antibiotics are stopped, but the proton pump inhibitor (PPI)... Prevacid, prilosec, nexium, protonix or the like, are continued. Peptic ulcer disease or gastritis is also effected by the following factors caused from a combination of too much acid production or too little protective mucus production in the stomach. Factors that increase acid production include smoking and stress. If you smoke, stopping smoking will often cure these issues without needing other medications. Factors that decrease the stomach's production of protective mucus include alcohol consumption, smoking, aspirin and other anti-inflammatory use. Over the counter medications including antiacids and acid reducing medications including H2 blockers (Zantac and the like) and proton pump inhibitors (prilosec, prevacid and the like) neutralize or prevent acid production. Prescription strength proton pump inhibitors (PPIs) may be necessary if your symptoms persist. Carafate may be added to PPI treatment in refractory cases. Avoiding smoking, alcohol and antiinflammatory medications are important in the successful treatment of peptic diseases. New or worsening symptoms such are epigastric pain, burning, difficulty swallowing or food sticking should be relayed to your physician. Feeling full early after eating, or black, tarry, foul smelling stools are also worrisome. If you have any difficulties or concerns, you should contact our office immediately. documented in this encounter [facility] 04-11-2024 History of Present illness Narrative HISTORY AND PHYSICAL Gerald W Luís 1960 REFERRING PHYSICIAN: Yakov Etienne MD CHIEF COMPLAINT: H. Pylori tx HPI: The patient is a 63 year old male with a complaint of abdominal pain and diarrhea. Cecil underwent EGD with Dr. Etienne on 04/05/24- stomach biopsy was negative for H. Pylori however Dr. Etienne was still suspicious for infection so sent a serum sample which returned as positive. Cecil presents today to review tx for H. Pylori. Cecil notes continued bloating and diarrhea. He also feels like his body isn't fighting infections as well & has been having some episodes of weakness and lightheadedness. He does admit to not eating a good diet- today the only thing he had was a [employer] drink & no food. He does admit to trying to eliminate gluten from his diet & has noticed some improvement in symptoms. PAST MEDICAL HISTORY Diagnosis Date Abnormal EKG 04/23/2017 inf [place] age undetermined Acute pulmonary embolism without acute cor pulmonale (HCC) Adenomatous colon polyp Anal fissure Anxiety Aorta disorder (HCC) Bipolar 2 disorder (HCC) Chicken pox Colon polyps Depression ED (erectile dysfunction) GERD (gastroesophageal reflux disease) Headache Hemorrhoid HTN (hypertension) Hypogonadism male 04/25/2010 Hypothyroidism Myofascial pain dysfunction syndrome Obesity Osteoarthritis of multiple joints Pulmonary embolism (HCC) Rectal bleed Shingles Shoulder [...] - small - 5 year follow up EGD DIAGNOSTIC 12/2023 ESOPHAGOGASTRODUODENOSCOPY TRANSORAL DIAGNOSTIC 05/25/2018 Duodenitis, Gastritis FOOT SURGERY HX Right 2013 Cheilectomy, 1st metatarsophalangeal joint, HEMORRHOID;BAND LIGAT, SNGL/MUL 02/01/2024 OPEN REPAIR OF ROTATOR CUFF ACUTE Right 10/2016 Rotator cuff repair - Dr. Santamaria RECONSTRUCTION ROTATOR CUFF AVULSION CHRONIC Left 03/21/2010 Dr. Gant - [place] REPAIR UMBILICAL HERNIA 2017 RPR UMBILICAL HRNA 5 YRS/> REDUCIBLE 06/11/2016 simple SKIN GRAFT HX Right 1986 eyelid TONSILLECTOMY HX Childhood Current Outpatient Medications Medication Sig losartan (COZAAR) 100 mg tablet Take 1 tablet by mouth once daily. triamterene-hydroCHLOROthiazide (MAXZIDE-25MG) 37.5-25 mg per tablet Take 1 tablet by mouth once daily. omeprazole (PRILOSEC) 40 mg capsule Take 1 capsule by mouth once daily. bismuth subsalicylate (PEPTO-BISMOL) 262 mg chewable tablet Take 2 tablets by mouth four times daily for 10 days. doxycycline hyclate (VIBRAMYCIN) 100 mg capsule Take 1 capsule by mouth two times a day for 10 days. metroNIDAZOLE (FLAGYL) 250 mg tablet Take 1 tablet by mouth four times daily for 10 days. omeprazole (PRILOSEC) 20 mg capsule Take 1 capsule by mouth two times a day for 10 days. diclofenac (VOLTAREN) 1 % topical gel Apply 4 g to affected area four times daily as needed (for pain). As Directed. No current facility-administered medications for this visit. ALLERGIES: Bakari Inhibitors and Darvocet A500 [Propoxyphene N-Acetaminophen] PERSONAL HISTORY: Social History Tobacco Use Smoking status: Never Smokeless tobacco: Never Vaping Use Vaping status: Never Used Substance Use Topics Alcohol use: Yes Alcohol/week: 6.0 standard drinks of alcohol Types: 6 Cans of Beer (12oz) per week Comment: 12 beers weekly Drug use: Not Currently Comment: no longer using. FAMILY HISTORY: FAMILY HISTORY Problem Relation Age of Onset Diabetes Mother Hypertension Mother Arthritis Mother Breast Cancer Mother Dementia Mother Cancer Father throat Asthma No Family History Colon Cancer No Family History REVIEW OF SYMPTOMS: SEE HPI PHYSICAL EXAMINATION: General: The patient is 63 year old male, well nourished, well hydrated in no acute distress. The patient is oriented to time, place, and person. VITALS: Blood pressure 129/86, pulse 72, weight 91.2 kg (201 lb), SpO2 100%. Body mass index is 34.5 kg/m . HEENT: Normal cephalic, ataumatic, pupils are equally round, sclera are anicteric, mucous membranes are moist, oropharynx is clear. Neck has no masses, asymmetry or lymphadenopathy. Respiratory: Clear to auscultation and percussion. Normal respiratory excursion and pattern. Cardiac: Examination is regular rate and rhythm. Normal S1/S2 Abdominal exam: Soft, nontender, with no palpable masses. No hepatosplenomegaly. No palpable hernias. Extremities: no clubbing, cyanosis or edema. No adenopathy. LABORATORY VALUES: As Noted RADIOLOGIC STUDIES: As Noted IMPRESSION: H. Pylori infection PLAN: ASSESSMENT/PLAN: 1. Helicobacter pylori infection - ICD9: 041.86, ICD10: A04.8 - Complete Prevpac * Pepto-bismal 262mg 1 tablet 4 times a day x 10 days * Doxycycline 100mg 1 tablet 2 times a day x 10 days * Metronidazole 500mg 1 tablet 3 times a day x 10 days * Prilosec 20mg 1 tablet 2 times a day x 10 days - complete stool test 4 weeks after completion of Prevpac * must hold PPI 2 weeks prior to stool test - After stool test continue to take Prilosec 40mg Discussed treatment plan and patient voices understanding. Patient's questions answered appropriately. Medications and potential side effects were discussed and patient voices understanding. Return to the office as scheduled or as needed for worsening/no improvement. Ria Pulido APRN.WAREHOUSE DISTRIBUTION MANAGER documented in this encounter [facility] 04-11-2024 Note HNO ID: [id number] Author: RIA PULIDO APRN.WAREHOUSE DISTRIBUTION MANAGER Service: ? Author Type: Nurse Practitioner Type: Progress Notes Filed: 04/11/2024 14:30 Note Text: HISTORY AND PHYSICAL Gerald Staley 1960 REFERRING PHYSICIAN: Yakov Etienne MD CHIEF COMPLAINT: H. Pylori tx HPI: The patient is a 63 year old male with a complaint of abdominal pain and diarrhea. Cecil underwent EGD with Dr. Etienne on 04/05/24- stomach biopsy was negative for H. Pylori however Dr. Etienne was still suspicious for infection so sent a serum sample which returned as positive. Cecil presents today to review tx for H. Pylori. Cecil notes continued bloating and diarrhea. He also feels like his body isn't fighting infections as well AND has been having some episodes of weakness and lightheadedness. He does admit to not eating a good diet- today the only thing he had was a [employer] drink AND no food. He does admit to trying to eliminate gluten from his diet AND has noticed some improvement in symptoms. PAST MEDICAL HISTORY Diagnosis Date Abnormal EKG 04/23/2017 inf [place] age undetermined Acute pulmonary embolism without acute cor pulmonale (HCC) Adenomatous colon polyp Anal fissure Anxiety Aorta disorder (HCC) Bipolar 2 disorder (HCC) Chicken pox Colon polyps Depression ED (erectile dysfunction) GERD (gastroesophageal reflux disease) Headache Hemorrhoid HTN (hypertension) Hypogonadism male 04/25/2010 Hypothyroidism Myofascial pain dysfunction syndrome Obesity Osteoarthritis of multiple joints Pulmonary embolism (HCC) Rectal bleed Shingles Shoulder [...] - small - 5 year follow up EGD DIAGNOSTIC 12/2023 ESOPHAGOGASTRODUODENOSCOPY TRANSORAL DIAGNOSTIC 05/25/2018 Duodenitis, Gastritis FOOT SURGERY HX Right 2013 Cheilectomy, 1st metatarsophalangeal joint, HEMORRHOID;BAND LIGAT, SNGL/MUL 02/01/2024 OPEN REPAIR OF ROTATOR CUFF ACUTE Right 10/2016 Rotator cuff repair - Dr. Santamaria RECONSTRUCTION ROTATOR CUFF AVULSION CHRONIC Left 03/21/2010 Dr. Gant - [place] REPAIR UMBILICAL HERNIA 2016 RPR UMBILICAL HRNA 5 YRS/> REDUCIBLE 06/11/2016 simple SKIN GRAFT HX Right 1986 eyelid TONSILLECTOMY HX Childhood Current Outpatient Medications Medication Sig losartan (COZAAR) 100 mg tablet Take 1 tablet by mouth once daily. triamterene-hydroCHLOROthiazide (MAXZIDE-25MG) 37.5-25 mg per tablet Take 1 tablet by mouth once daily. omeprazole (PRILOSEC) 40 mg capsule Take 1 capsule by mouth once daily. bismuth subsalicylate (PEPTO-BISMOL) 262 mg chewable tablet Take 2 tablets by mouth four times daily for 10 days. doxycycline hyclate (VIBRAMYCIN) 100 mg capsule Take 1 capsule by mouth two times a day for 10 days. metroNIDAZOLE (FLAGYL) 250 mg tablet Take 1 tablet by mouth four times daily for 10 days. omeprazole (PRILOSEC) 20 mg capsule Take 1 capsule by mouth two times a day for 10 days. diclofenac (VOLTAREN) 1 % topical gel Apply 4 g to affected area four times daily as needed (for pain). As Directed. No current facility-administered medications for this visit. ALLERGIES: Bakari Inhibitors and Darvocet A500 [Propoxyphene N-Acetaminophen] PERSONAL HISTORY: Social History Tobacco Use Smoking status: Never Smokeless tobacco: Never Vaping Use Vaping status: Never Used Substance Use Topics Alcohol use: Yes Alcohol/week: 6.0 standard drinks of alcohol Types: 6 Cans of Beer (12oz) per week Comment: 12 beers weekly Drug use: Not Currently Comment: no longer using. FAMILY HISTORY: FAMILY HISTORY Problem Relation Age of Onset Diabetes Mother Hypertension Mother Arthritis Mother Breast Cancer Mother Dementia Mother Cancer Father throat Asthma No Family History Colon Cancer No Family History REVIEW OF SYMPTOMS: SEE HPI PHYSICAL EXAMINATION: General: The patient is 63 year old male, well nourished, well hydrated in no acute distress. The patient is oriented to time, place, and person. VITALS: Blood pressure 129/86, pulse 72, weight 91.2 kg (201 lb), SpO2 100%. Body mass index is 34.5 kg/m?. HEENT: Normal cephalic, ataumatic, pupils are equally round, sclera are anicteric, mucous membranes are moist, oropharynx is clear. Neck has no masses, asymmetry or lymphadenopathy. Respiratory: Clear to auscultation and percussion. Normal respiratory excursion and pattern. Cardiac: Examination is regular rate and rhythm. Normal S1/ (more content not included)... [facility] 04-07-2024 Telephone encounter Note 1st ATC - left message. When patient returns call, please schedule appt. (in person or virtual) with Manisha Duc for treatment of H Pylori. Sonal Alejandro [facility] 04-07-2024 Miscellaneous Notes 1st ATC - left message. When patient returns call, please schedule appt. (in person or virtual) with Manisha Duc for treatment of H Pylori. Sonal Alejandro Can you please reach out to the patient and help in scheduling an appointment with myself to discuss H. Pylori tx- can be virtual if patient wants. Thanks, Ria Pulido APRN.JADA documented in this encounter [facility] 04-07-2024 Telephone encounter Note Can you please reach out to the patient and help in scheduling an appointment with myself to discuss H. Pylori tx- can be virtual if patient wants. Thanks, Ria Pulido APRN.CNP [facility] Work Phone: 04-05-2024 Note HNO ID: [id number] Author: YAKOV ETIENNE MD Service: ? Author Type: Physician Type: Progress Notes Filed: 04/05/2024 12:06 Note Text: HISTORY AND PHYSICAL Gerald Donovan Luís 1960 REFERRING PHYSICIAN: Yakov Etienne MD CHIEF COMPLAINT: No chief complaint on file. HPI: The patient is a 63 year old male with a complaint of generalized abdominal pain, loose diarrhea stools. Recently admit that he [facility]'s emergency department on 03/13/2024. Had a CAT scan of the abdomen which showed diverticulosis no signs of diverticulitis did not show any specific signs of colitis raise some question whether he had cystitis. He has been having upper abdominal discomfort generalized abdominal discomfort. He has been taking his PPI religiously. He was seen by GI had an upper GI done which did not show any signs of H. pylori gastritis but a small bowel biopsy was not entirely normal either. PAST MEDICAL HISTORY Diagnosis Date Abnormal EKG 04/23/2017 inf [place] age undetermined Acute pulmonary embolism without acute cor pulmonale (HCC) Adenomatous colon polyp Anal fissure Anxiety Aorta disorder (HCC) Bipolar 2 disorder (HCC) Chicken pox Colon polyps Depression ED (erectile dysfunction) GERD (gastroesophageal reflux disease) Headache Hemorrhoid HTN (hypertension) Hypogonadism male 04/25/2010 Hypothyroidism Myofascial pain dysfunction syndrome Obesity Osteoarthritis of multiple joints Pulmonary embolism (HCC) Rectal bleed Shingles Shoulder [...] - small - 5 year follow up EGD DIAGNOSTIC 12/2023 ESOPHAGOGASTRODUODENOSCOPY TRANSORAL DIAGNOSTIC 05/25/2018 Duodenitis, Gastritis FOOT SURGERY HX Right 2013 Cheilectomy, 1st metatarsophalangeal joint, HEMORRHOID;BAND LIGAT, SNGL/MUL 02/01/2024 OPEN REPAIR OF ROTATOR CUFF ACUTE Right 10/2016 Rotator cuff repair - Dr. Santamaria RECONSTRUCTION ROTATOR CUFF AVULSION CHRONIC Left 03/21/2010 Dr. Stalin Clark REPAIR UMBILICAL HERNIA 2016 RPR UMBILICAL HRNA 5 YRS/> REDUCIBLE 06/11/2016 simple SKIN GRAFT HX Right 1986 eyelid TONSILLECTOMY HX Childhood Current Outpatient Medications Medication Sig losartan (COZAAR) 100 mg tablet Take 1 tablet by mouth once daily. triamterene-hydroCHLOROthiazide (MAXZIDE-25MG) 37.5-25 mg per tablet Take 1 tablet by mouth once daily. omeprazole (PRILOSEC) 40 mg capsule Take 1 capsule by mouth once daily. diclofenac (VOLTAREN) 1 % topical gel Apply 4 g to affected area four times daily as needed (for pain). As Directed. No current facility-administered medications for this visit. ALLERGIES: Bakari Inhibitors and Darvocet A500 [Propoxyphene N-Acetaminophen] PERSONAL HISTORY: Social History Tobacco Use Smoking status: Never Smokeless tobacco: Never Vaping Use Vaping status: Never Used Substance Use Topics Alcohol use: Yes Alcohol/week: 6.0 standard drinks of alcohol Types: 6 Cans of Beer (12oz) per week Comment: 12 beers weekly Drug use: Not Currently Comment: no longer using. FAMILY HISTORY: FAMILY HISTORY Problem Relation Age of Onset Diabetes Mother Hypertension Mother Arthritis Mother Breast Cancer Mother Dementia Mother Cancer Father throat Asthma No Family History Colon Cancer No Family History REVIEW OF SYMPTOMS: The review of systems data was entered by the nurse and reviewed by me There are no exam notes on file for this visit. PHYSICAL EXAMINATION: General: The patient is 63 year old male, well nourished, well hydrated in no acute distress. The patient is oriented to time, place, and person. VITALS: There were no vitals taken for this visit. HEENT: Normal cephalic, ataumatic, pupils are equally [...] Noted RADIOLOGIC STUDIES: As Noted Assessment IMPRESSION: Rectal bleeding Internal hemorrhoids Generalized abdominal pain (primary encounter diagnosis) Diarrhea, unspecified type PLAN: I have (more content not included)... [facility] 04-05-2024 History of Present illness Narrative HISTORY AND PHYSICAL Gerald Staley 1960 REFERRING PHYSICIAN: Yakov Etienne MD CHIEF COMPLAINT: No chief complaint on file. HPI: The patient is a 63 year old male with a complaint of generalized abdominal pain, loose diarrhea stools. Recently admit that he [facility]'s emergency department on 03/13/2024. Had a CAT scan of the abdomen which showed diverticulosis no signs of diverticulitis did not show any specific signs of colitis raise some question whether he had cystitis. He has been having upper abdominal discomfort generalized abdominal discomfort. He has been taking his PPI religiously. He was seen by GI had an upper GI done which did not show any signs of H. pylori gastritis but a small bowel biopsy was not entirely normal either. PAST MEDICAL HISTORY Diagnosis Date Abnormal EKG 04/23/2017 inf [place] age undetermined Acute pulmonary embolism without acute cor pulmonale (HCC) Adenomatous colon polyp Anal fissure Anxiety Aorta disorder (HCC) Bipolar 2 disorder (HCC) Chicken pox Colon polyps Depression ED (erectile dysfunction) GERD (gastroesophageal reflux disease) Headache Hemorrhoid HTN (hypertension) Hypogonadism male 04/25/2010 Hypothyroidism Myofascial pain dysfunction syndrome Obesity Osteoarthritis of multiple joints Pulmonary embolism (HCC) Rectal bleed Shingles Shoulder [...] - small - 5 year follow up EGD DIAGNOSTIC 12/2023 ESOPHAGOGASTRODUODENOSCOPY TRANSORAL DIAGNOSTIC 05/25/2018 Duodenitis, Gastritis FOOT SURGERY HX Right 2013 Cheilectomy, 1st metatarsophalangeal joint, HEMORRHOID;BAND LIGAT, SNGL/MUL 02/01/2024 OPEN REPAIR OF ROTATOR CUFF ACUTE Right 10/2016 Rotator cuff repair - Dr. Santamaria RECONSTRUCTION ROTATOR CUFF AVULSION CHRONIC Left 03/21/2010 Dr. Gant - [place] REPAIR UMBILICAL HERNIA 2016 RPR UMBILICAL HRNA 5 YRS/> REDUCIBLE 06/11/2016 simple SKIN GRAFT HX Right 1986 eyelid TONSILLECTOMY HX Childhood Current Outpatient Medications Medication Sig losartan (COZAAR) 100 mg tablet Take 1 tablet by mouth once daily. triamterene-hydroCHLOROthiazide (MAXZIDE-25MG) 37.5-25 mg per tablet Take 1 tablet by mouth once daily. omeprazole (PRILOSEC) 40 mg capsule Take 1 capsule by mouth once daily. diclofenac (VOLTAREN) 1 % topical gel Apply 4 g to affected area four times daily as needed (for pain). As Directed. No current facility-administered medications for this visit. ALLERGIES: Bakari Inhibitors and Darvocet A500 [Propoxyphene N-Acetaminophen] PERSONAL HISTORY: Social History Tobacco Use Smoking status: Never Smokeless tobacco: Never Vaping Use Vaping status: Never Used Substance Use Topics Alcohol use: Yes Alcohol/week: 6.0 standard drinks of alcohol Types: 6 Cans of Beer (12oz) per week Comment: 12 beers weekly Drug use: Not Currently Comment: no longer using. FAMILY HISTORY: FAMILY HISTORY Problem Relation Age of Onset Diabetes Mother Hypertension Mother Arthritis Mother Breast Cancer Mother Dementia Mother Cancer Father throat Asthma No Family History Colon Cancer No Family History REVIEW OF SYMPTOMS: The review of systems data was entered by the nurse and reviewed by me There are no exam notes on file for this visit. PHYSICAL EXAMINATION: General: The patient is 63 year old male, well nourished, well hydrated in no acute distress. The patient is oriented to time, place, and person. VITALS: There were no vitals taken for this visit. HEENT: Normal cephalic, ataumatic, pupils are equally [...] Noted RADIOLOGIC STUDIES: As Noted Assessment IMPRESSION: Rectal bleeding Internal hemorrhoids Generalized abdominal pain (primary encounter diagnosis) Diarrhea, unspecified type PLAN: I have ordered a H. pylori blood test on him. It is clear when he needs to get back to the GI department I think he is probably can have to have a repeat upper scope and I think he probably needs to have a repeat colonoscopy with random colon biopsies done. I do not think he has anything with regards to his hemorrhoidal surgery that seems to have healed up he is no longer having pain with bowel movements. And it does not look like he has any obvious surgical needs here looks like it is all medical needs. I will reach out to gastroenterology to see if he can be seen sooner rather than later. Diagnoses: (R10.84) Generalized abdominal pain (primary encounter diagnosis) (K62.5) Rectal bleeding (K64.8) Internal hemorrhoids My findings have been communicated to Dr. Errol Cary MD via shared medical record. This note will be forwarded to Dr. Errol Cary MD. Return to Clinic: The patient is instructed to follow-up with me as needed. Yakov Etienne III, MD documented in this encounter [facility] 03-14-2024 Note HNO ID: [id number] Author: DARA PUTNAM MA Service: ? Author Type: Tile Setter Supervisor Type: Progress Notes Filed: 03/14/2024 14:37 Note Text: POPULATION HEALTH NAVIGATION OUTREACH Action/FYI msg to schedule wellness, hcc gap closure, bp to be addressed as not compliant not <130/80, influenza Reason for Outreach Care Gap/HCC or Scheduling Wellness Visits Care Gaps due: Medicare Annual Wellness Visit Controlling Blood Pressure Flu Vaccine Patient Contacted: Unable or unnecessary to reach patient: Unable to leave message [employer] message sent HCC related Navigation Signature: Dara Putnam MA March 14, 2024 2:36 PM [facility] 03-14-2024 History of Present illness Narrative POPULATION HEALTH NAVIGATION OUTREACH Action/FYI msg to schedule wellness, hcc gap closure, bp to be addressed as not compliant not <130/80, influenza Reason for Outreach Care Gap/HCC or Scheduling Wellness Visits Care Gaps due: Medicare Annual Wellness Visit Controlling Blood Pressure Flu Vaccine Patient Contacted: Unable or unnecessary to reach patient: Unable to leave message [employer] message sent HCC related Navigation Signature: Dara Putnam MA March 14, 2024 2:36 PM documented in this encounter [facility] 03-14-2024 Note Patient Outreach (NE TNAV) ---- GERALD STALEY ([id number]) 1960 M Date Time Provider Department 03/14/24 DARA PUTNAM During your visit today, we recorded the following information about you: Dara Putnam MA 03/14/2024 2:37 PM Signed POPULATION HEALTH NAVIGATION OUTREACH Action/FYI msg to schedule wellness, hcc gap closure, bp to be addressed as not compliant not <130/80, influenza Reason for Outreach Care Gap/HCC or Scheduling Wellness Visits Care Gaps due: Medicare Annual Wellness Visit Controlling Blood Pressure Flu Vaccine Patient Contacted: Unable or unnecessary to reach patient: Unable to leave message [employer] message sent HCC related Navigation Signature: Dara PutnamSHANDA March 14, 2024 2:36 PM Allergies As of Date: 03/14/2024 Noted Allergy Reaction BAKARI INHIBITORS 05/22/2016 3 - Cough DARVOCET A500 (PROPOXYPHENE N-BAKARI*04/24/2016 8 - GI Upset Date Reviewed: 02/03/2024 Reviewed by: Nahun Gustafson MD - Fully Assessed Reason for Visit: Population Health Navigation Outreach [3910] Cmt: Dillon diaz Prescriptions as of 03/14/2024 - losartan (COZAAR) 100 mg tablet Take 1 tablet by mouth once daily. - triamterene-hydroCHLOROthiazide (MAXZIDE-25MG) 37.5-25 mg per tablet Take 1 tablet by mouth once daily. - omeprazole (PRILOSEC) 40 mg capsule Take 1 capsule by mouth once daily. - diclofenac (VOLTAREN) 1 % topical gel Apply 4 g to affected area four times daily as needed (for pain). As Directed. Problem List As Of Date 03/14/2024 Noted Resolved SPRAIN SHOULDER/ARM NOS [[id number]] 06/22/2008 09/25/2008 Rotator cuff (capsule) sprain [S43.429A] 09/25/2008 05/22/2016 Primary hypertension [I10] 05/07/2009 Hyperlipidemia [E78.5] 05/07/2009 Hypogonadism male [E29.1] 04/25/2010 05/22/2016 Other chronic pain [G89.29] 11/12/2011 Onychomycosis due to dermatophyte [B35.1] 02/08/2013 04/24/2016 Sprain of rhomboid [S23.8XXA] 06/12/2015 05/22/2016 Cervical myofascial strain [S16.1XXA] 06/12/2015 05/22/2016 Shoulder strain [S46.919A] 06/12/2015 04/17/2017 Strain of right shoulder [S46.911A] 08/10/2015 05/22/2016 Cervical strain [S16.1XXA] 08/10/2015 05/22/2016 Situational depression [F43.21] 09/17/2015 05/22/2016 Reactive depression [F32.9] 10/05/2015 04/24/2016 Chronic right-sided low back pain with right-si*10/25/2015 05/22/2016 Heel pain, bilateral [M79.671, M79.672] 10/25/2015 05/22/2016 Chronic pain [G89.29] 11/09/2015 05/22/2016 Recurrent major depression in partial remission*04/24/2016 Umbilical hernia without obstruction and withou*06/05/2016 06/11/2016 Strain of other muscles, fascia and tendons at *11/10/2016 04/17/2017 Sprain of other specified parts of right should*11/10/2016 04/17/2017 Other cervical disc degeneration, unspecified c*04/29/2017 Bursitis of both shoulders [M75.51, M75.52] 01/04/2020 Other forms of angina pectoris (HCC) [I20.89] 01/06/2020 S/P left rotator cuff repair [Z98.890] 04/16/2020 Partial nontraumatic tear of left rotator cuff *04/16/2020 Hypothyroidism, acquired [E03.9] 05/28/2021 10/16/2021 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] 06/07/2021 Osteoarthritis of both shoulders [M19.011, M19.*08/05/2021 Cervicalgia [M54.2] 08/05/2021 Rotator cuff impingement syndrome [M75.40] 08/05/2021 Rotator cuff syndrome [M75.100] 09/09/2021 Obesity, Class II, BMI 35-39.9 [E66.812] 09/09/2021 Subclinical hypothyroidism [E03.8] 10/16/2021 Acute pulmonary embolism without acute cor pulm*11/04/2021 Constipation due to opioid therapy [K59.03, T40*11/06/2021 High risk medications (not anticoagulants) long*12/20/2021 Cavernous malformation [Q28.3] 03/28/2022 Mild cognitive impairment with memory loss [G31*03/28/2022 Obesity, Class I, BMI 30-34.9 [E66.811] 06/30/2022 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] 01/16/2020 Diagnosed: 11/10/2022 Osteoarthritis of shoulder [M19.019] 04/15/2021 Diagnosed: 11/10/2022 COVID-19 [U07.1] 10/22/2021 Diagnosed: 11/10/2022 Dehydration [E86.0] 11/10/2022 Diagnosed: 11/10/2022 detention (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 of opiate analgesic [Z7*12/16/2016 Diagnosed: 11/10/2022 Superior glenoid labrum lesion of left shoulder*01/16/2020 Diagnosed: 11/10/2022 Tear of supraspinatus tendon [M75.100] 01/16/2020 Diagnosed: 11/10/2022 Myofascial pain syndrome [M79.18] 02/11/2023 Bipolar 2 disorder (HCC) [F31.81] 03/03/2023 Pre-op exam [Z01.818] 02/01/2024 Alcohol use [Z78.9] 02/01/2024 Anal fissure [K60.2] 02/01/2024 Hypothyroidism [E03.9] 02/01/2024 Other pulmonary embolism without acute cor pulm*02/01/2024 Encounter Status:Closed by DARA PUTNAM on 03/14/24 [facility] 02-18-2024 Telephone encounter Note Patient called in because he did not understand his EGD results. Explained results in more detail and also went over MRI results. Patient now has a better understanding and will call back in 6 months for the repeat US as mentioned. [facility] 02-18-2024 Miscellaneous Notes Patient called in because he did not understand his EGD results. Explained results in more detail and also went over MRI results. Patient now has a better understanding and will call back in 6 months for the repeat US as mentioned. documented in this encounter [facility] 02-03-2024 Instructions Nahun Gustafson MD - 02/03/2024 3:12 PM EST Please try taking MiraLAX 1 dose a day every day for the next 7 days to help with constipation. After this switch to a fiber supplement and continue this once a day daily. If you are able to do sitz baths, these could be helpful for comfort and cleanliness documented in this encounter [facility] 02-03-2024 Note HNO ID: [id number] Author: NAHUN GUSTAFSON MD Service: ? Author Type: Physician Type: Progress Notes Filed: 02/03/2024 15:13 Note Text: Nahun Gustafson M.D. Colon AND Rectal Surgery [address] [facility], [address] [place] [id number] SUBJECTIVE Gerald Staley is a 63 year old White male status post hemorrhoidectomy HPI He is still having a fair amount of pain, denies nausea or vomiting but has been feeling constipated. He is taking oxycodone and Tylenol. He has had some low-grade fevers at home but they do not have a thermometer to check this. Review of Systems Constitutional: Positive for fever. Negative for chills. HENT: Negative for congestion, ear pain, hearing loss, sinus pain and sore throat. Eyes: Negative for blurred vision, double vision and pain. Respiratory: Negative for cough, shortness of breath and wheezing. Cardiovascular: Negative for chest pain, palpitations and leg swelling. Gastrointestinal: Positive for abdominal pain and constipation. Negative for diarrhea, heartburn, nausea and vomiting. Genitourinary: Positive for dysuria. Negative for frequency and urgency. Musculoskeletal: Positive for back pain, joint pain and neck pain. Skin: Negative for itching and rash. Neurological: Positive for dizziness, weakness and headaches. Endo/Heme/Allergies: Negative for environmental allergies. Does not bruise/bleed easily. Psychiatric/Behavioral: Positive for depression. Negative for memory loss. The patient is not nervous/anxious and does not have insomnia. PAST MEDICAL HISTORY Diagnosis Date Abnormal EKG 04/23/2017 inf [place] age undetermined Acute pulmonary embolism without acute cor pulmonale (HCC) Adenomatous colon polyp Anal fissure Anxiety Aorta disorder (HCC) Bipolar 2 disorder (HCC) Chicken pox Colon polyps Depression ED (erectile dysfunction) Headache HTN (hypertension) Hypogonadism male 04/25/2010 Hypothyroidism Myofascial pain dysfunction syndrome Obesity Osteoarthritis of multiple joints Pulmonary embolism (HCC) Rectal bleed Shingles Shoulder [...] - small - 5 year follow up EGD DIAGNOSTIC 12/2023 ESOPHAGOGASTRODUODENOSCOPY TRANSORAL DIAGNOSTIC 05/25/2018 Duodenitis, Gastritis FOOT SURGERY HX Right 2013 Cheilectomy, 1st metatarsophalangeal joint, OPEN REPAIR OF ROTATOR CUFF ACUTE Right 10/2016 Rotator cuff repair - Dr. Santamaria RECONSTRUCTION ROTATOR CUFF AVULSION CHRONIC Left 03/21/2010 Dr. Gant - [place] REPAIR UMBILICAL HERNIA 2017 RPR UMBILICAL HRNA 5 YRS/> REDUCIBLE 06/11/2016 simple SKIN GRAFT HX Right 1986 eyelid TONSILLECTOMY HX Childhood Social History Tobacco Use Smoking status: Never Smokeless tobacco: Never Vaping Use Vaping status: Never Used Substance Use Topics Alcohol use: Yes Alcohol/week: 6.0 standard drinks of alcohol Types: 6 Cans of Beer (12oz) per week Comment: 12 beers weekly Drug use: Not Currently Comment: no longer using. FAMILY HISTORY Problem Relation Age of Onset Diabetes Mother Hypertension Mother Arthritis Mother Breast Cancer Mother Dementia Mother Cancer Father throat Asthma No Family History Colon Cancer No Family History The ROS, medical, surgical, family, and social history were reviewed by Nahun Gustafson MD ALLERGIES Allergen Reactions Bakari Inhibitors Cough Darvocet A500 [Prop* GI Upset Current Outpatient Medications Medication Sig oxyCODONE IR (ROXICODONE) 5 mg immediate release tablet Take 1 tablet by mouth every 6 hours as needed for pain for up to 4 days. losartan (COZAAR) 100 mg tablet Take 1 tablet by mouth once daily. triamterene-hydroCHLOROthiazide (MAXZIDE-25MG) 37.5-25 mg per tablet Take 1 tablet by mouth once daily. omeprazole (PRILOSEC) 40 mg capsule Take 1 capsule by mouth once daily. diclofenac (VOLTAREN) 1 % topical gel Apply 4 g to affected area four times daily as needed (for pain). As Directed. No current facility-administered medications for this visit. OBJECTIVE BP 120/82 (BP Site: Left Arm, BP Position: Sitting, BP Cuff Size: Large Adult) Ht 162.6 cm (5' 4") Wt 88.9 kg (196 lb) BMI 33.64 kg/m? BMI 33.64 kg/(m2) Physical Exam Constitutional: General: He is not in acute distress. Appearance: Normal appearance. He is not ill-appearing. Abdominal: General: There is no distension. Palpations: Abdomen is soft. Tenderness: There (more content not included)... [facility] 02-03-2024 History of Present illness Narrative Images from the original note were not included. Nahun Gustafson M.D. Colon & Rectal Surgery [address] [facility], [address] [place] [id number] SUBJECTIVE Gerald Staley is a 63 year old White male status post hemorrhoidectomy HPI He is still having a fair amount of pain, denies nausea or vomiting but has been feeling constipated. He is taking oxycodone and Tylenol. He has had some low-grade fevers at home but they do not have a thermometer to check this. Review of Systems Constitutional: Positive for fever. Negative for chills. HENT: Negative for congestion, ear pain, hearing loss, sinus pain and sore throat. Eyes: Negative for blurred vision, double vision and pain. Respiratory: Negative for cough, shortness of breath and wheezing. Cardiovascular: Negative for chest pain, palpitations and leg swelling. Gastrointestinal: Positive for abdominal pain and constipation. Negative for diarrhea, heartburn, nausea and vomiting. Genitourinary: Positive for dysuria. Negative for frequency and urgency. Musculoskeletal: Positive for back pain, joint pain and neck pain. Skin: Negative for itching and rash. Neurological: Positive for dizziness, weakness and headaches. Endo/Heme/Allergies: Negative for environmental allergies. Does not bruise/bleed easily. Psychiatric/Behavioral: Positive for depression. Negative for memory loss. The patient is not nervous/anxious and does not have insomnia. PAST MEDICAL HISTORY Diagnosis Date Abnormal EKG 04/23/2017 inf [place] age undetermined Acute pulmonary embolism without acute cor pulmonale (HCC) Adenomatous colon polyp Anal fissure Anxiety Aorta disorder (HCC) Bipolar 2 disorder (HCC) Chicken pox Colon polyps Depression ED (erectile dysfunction) Headache HTN (hypertension) Hypogonadism male 04/25/2010 Hypothyroidism Myofascial pain dysfunction syndrome Obesity Osteoarthritis of multiple joints Pulmonary embolism (HCC) Rectal bleed Shingles Shoulder [...] - small - 5 year follow up EGD DIAGNOSTIC 12/2023 ESOPHAGOGASTRODUODENOSCOPY TRANSORAL DIAGNOSTIC 05/25/2018 Duodenitis, Gastritis FOOT SURGERY HX Right 2013 Cheilectomy, 1st metatarsophalangeal joint, OPEN REPAIR OF ROTATOR CUFF ACUTE Right 10/2016 Rotator cuff repair - Dr. Santamaria RECONSTRUCTION ROTATOR CUFF AVULSION CHRONIC Left 03/21/2010 Dr. Gant - [place] REPAIR UMBILICAL HERNIA 2017 RPR UMBILICAL HRNA 5 YRS/> REDUCIBLE 06/11/2016 simple SKIN GRAFT HX Right 1986 eyelid TONSILLECTOMY HX Childhood Social History Tobacco Use Smoking status: Never Smokeless tobacco: Never Vaping Use Vaping status: Never Used Substance Use Topics Alcohol use: Yes Alcohol/week: 6.0 standard drinks of alcohol Types: 6 Cans of Beer (12oz) per week Comment: 12 beers weekly Drug use: Not Currently Comment: no longer using. FAMILY HISTORY Problem Relation Age of Onset Diabetes Mother Hypertension Mother Arthritis Mother Breast Cancer Mother Dementia Mother Cancer Father throat Asthma No Family History Colon Cancer No Family History The ROS, medical, surgical, family, and social history were reviewed by Nahun Gustafson MD ALLERGIES Allergen Reactions Bakari Inhibitors Cough Darvocet A500 [Prop* GI Upset Current Outpatient Medications Medication Sig oxyCODONE IR (ROXICODONE) 5 mg immediate release tablet Take 1 tablet by mouth every 6 hours as needed for pain for up to 4 days. losartan (COZAAR) 100 mg tablet Take 1 tablet by mouth once daily. triamterene-hydroCHLOROthiazide (MAXZIDE-25MG) 37.5-25 mg per tablet Take 1 tablet by mouth once daily. omeprazole (PRILOSEC) 40 mg capsule Take 1 capsule by mouth once daily. diclofenac (VOLTAREN) 1 % topical gel Apply 4 g to affected area four times daily as needed (for pain). As Directed. No current facility-administered medications for this visit. OBJECTIVE BP 120/82 (BP Site: Left Arm, BP Position: Sitting, BP Cuff Size: Large Adult) Ht 162.6 cm (5' 4") Wt 88.9 kg (196 lb) BMI 33.64 kg/m BMI 33.64 kg/(m^2) Physical Exam Constitutional: General: He is not in acute distress. Appearance: Normal appearance. He is not ill-appearing. Abdominal: General: There is no distension. Palpations: Abdomen is soft. Tenderness: There is no abdominal tenderness. Neurological: Mental Status: He is alert and oriented to person, place, and time. Psychiatric: Mood and Affect: Mood and affect normal. Judgment: Judgment normal. Perineum: Appropriately healing surgical sites Hemoglobin (g/dL) Date Value 11/30/2023 17.1 05/29/2020 16.3 Hematocrit (%) Date Value 11/30/2023 51.3 05/29/2020 48.4 WBC (k/uL) Date Value 11/30/2023 7.35 05/29/2020 6.31 Platelet Count (k/uL) Date Value 11/30/2023 221 05/29/2020 205 Creatinine Date Value Ref Range Status 11/30/2023 1.17 0.73 - 1.22 mg/dL Final AST Date Value Ref Range Status 11/30/2023 17 14 - 40 U/L Final ALT Date Value Ref Range Status 11/30/2023 25 10 - 54 U/L Final Bilirubin, Total (mg/dL) Date Value 11/30/2023 0.8 Bilirubin, Direct (mg/dL) Date Value 03/03/2022 <0.2 WBC (k/uL) Date Value 11/30/2023 7.35 RBC (m/uL) Date Value 11/30/2023 5.73 %DIG,%DBS Plan ASSESSMENT/PLAN: 1. Internal and external hemorrhoids without complication - ICD9: 455.0, 455.3, ICD10: K64.4, K64.8 He is relatively early postop and is going still through a number of symptoms but things seem to be healing appropriately and we will continue to monitor. I would like him to take some MiraLAX for the next couple days. Follow up: Return for For any new issues or concerns. Nahun Gustafson M.D. Please Note: This office note has been created using [employer], a speech recognition software program, and may contain errors including punctuation, grammar, spelling, gender, and inappropriate words or phrases that pertain to the sytem. documented in this encounter [facility] 02-01-2024 Surgery Surgical operation note BRIEF OPERATIVE / PROCEDURE NOTE LOG ID: [id number] Surgery/Procedure Date: 02/01/2024 Incision/Procedure Start Time: 3:55 PM Incision Close/Procedure End Time: 4:44 PM Surgeon(s)/Proceduralist(s) and Professor Of Mechanical Engineering(s): Surgeons and Role: * Nahun Gustafson MD - Primary * Aryan Galindo DO - Resident - Assisting No Additional Staff Procedure(s): Procedure(s) (LRB): HEMORRHOIDECTOMY EXTERNAL AND INTERNAL 2 OR MORE COLUMNS/GROUPS (N/A) Anesthesia: General ASA Class: Findings: Enlarged and engorged internal and external hemorrhoids Excision of left lateral internal hemorrhoid, right posterior internal/external hemorrhoid. Estimated Blood Loss: 20 mls Fluids: see anesthesia note UOP: 0 Antibiotics: Current Anti-Infective Meds (From admission, onward) None Specimens: ID Type Source Tests Collected by Time Destination A : Tissue Hemorrhoid, Resection SURGICAL PATHOLOGY Nahun Gustafson MD 02/01/2024 4:17 PM Drains: None Complications: None Pre-Op/Pre-Procedure Diagnosis: Pre-Op Diagnosis Codes: * Anal fissure [K60.2] Post-Op/Post-Procedure Diagnosis: Grade III internal hemorrhoids SIGNATURE: Aryan Galindo DO PATIENT NAME: Gerald Staley DATE: February 01, 2024 TIME: 5:08 PM Pager: [facility] - [place] Service Pager: For questions or concerns Mon-Thu 6a-5p please page [phone]. After 5pm and on Weekends and Holidays, please page [phone] if in ICU or [phone] if on RNF. [facility] 02-01-2024 Surgical operation note BRIEF OPERATIVE / PROCEDURE NOTE LOG ID: [id number] Surgery/Procedure Date: 02/01/2024 Incision/Procedure Start Time: 3:55 PM Incision Close/Procedure End Time: 4:44 PM Surgeon(s)/Proceduralist(s) and Professor Of Mechanical Engineering(s): Surgeons and Role: * Nahun Gustafson MD - Primary * Aryan Galindo DO - Resident - Assisting No Additional Staff Procedure(s): Procedure(s) (LRB): HEMORRHOIDECTOMY EXTERNAL AND INTERNAL 2 OR MORE COLUMNS/GROUPS (N/A) Anesthesia: General ASA Class: Findings: Enlarged and engorged internal and external hemorrhoids Excision of left lateral internal hemorrhoid, right posterior internal/external hemorrhoid. Estimated Blood Loss: 20 mls Fluids: see anesthesia note UOP: 0 Antibiotics: Current Anti-Infective Meds (From admission, onward) None Specimens: ID Type Source Tests Collected by Time Destination A : Tissue Hemorrhoid, Resection SURGICAL PATHOLOGY Nahun Gustafson MD 02/01/2024 4:17 PM Drains: None Complications: None Pre-Op/Pre-Procedure Diagnosis: Pre-Op Diagnosis Codes: * Anal fissure [K60.2] Post-Op/Post-Procedure Diagnosis: Grade III internal hemorrhoids SIGNATURE: Aryan Galindo DO PATIENT NAME: Gerald Staley DATE: February 01, 2024 TIME: 5:08 PM Pager: [facility] - [place] Service Pager: For questions or concerns Mon-Fri 6a-5p please page [phone]. After 5pm and on Weekends and Holidays, please page [phone] if in ICU or [phone] if on RNF. DEPARTMENT OF SURGERY OPERATIVE NOTE OPERATIVE REPORT Log ID: [id number] Surgery Date: 02/01/2024 Incision/Procedure Start Time: 3:55 PM Incision Close/Procedure End Time: 4:44 PM Surgeon(s) and Professor Of Mechanical Engineering(s): Surgeons and Role: * Nahun Gustafson MD - Primary * Aryan Galindo DO - Resident - Assisting Preoperative Diagnosis: Anal fissure [K60.2] Postoperative Diagnosis: Internal and external hemorrhoids with prolapse and bleeding PROCEDURE AND ANESTHESIA TYPE: Procedure(s) and Anesthesia Type: * HEMORRHOIDECTOMY EXTERNAL AND INTERNAL 2 OR MORE COLUMNS/GROUPS - General Findings: While in the office we thought there was a fissure in the posterior midline we did not see this on the examination under anesthesia instead finding 3 enlarged hemorrhoids in the left lateral, right lateral, and right posterior positions which were fairly inflamed. We decided given these findings that hemorrhoid removal would be better for symptom control and proceeded with this Indications and consent: The patient is a 63 year old male who presented my office with blood per rectum and anal discomfort and was found on examination to have an anal fissure. We discussed examination under anesthesia and lateral internal sphincterotomy given these findings, but did discuss the possibility of other findings and managing these as we saw fit. A thorough discussion of the risks and benefits of surgery was undertaken in the office after which he requested to undergo excisional hemorrhoidectomy. Description of Procedure: Patient was placed in high lithotomy. Timeout was completed x 2. he was prepped and draped in the usual fashion. Digital rectal exam was not remarkable. Anoscopy was completed and showed significantly large hemorrhoids at the posterior position as well as on the left lateral with some enlarged external hemorrhoids in the right posterior position. We looked carefully for a fissure as we had thought was present in the office, but on careful examination did not find a fissure or evidence of a healed fissure. After careful examination we decided that the hemorrhoids which were in the same position as that tenderness during his examination were probably to blame for his discomfort and decided proceed with hemorrhoidectomy. The largest hemorrhoid column in the posterior midline position was grasped with a hemostat and retracted outward to view its pedicle. Half percent Marcaine with epinephrine was used to inject the skin at this column and to perform some hydro-dissection of the hemorrhoid. We also put a bilateral pudendal block at this time for a total of 20 cc of half percent Marcaine with epinephrine, and then used another 10 cc in a perianal block. We made a V-shaped incision over the external skin carried this down into the plane above the internal sphincter carefully the hemorrhoidal tissue from the internal sphincter. We proceeded proximally until we had isolated the hemorrhoid pedicle and then performed a figure of 8 suture with 3-0 Chromic of the pedicle. We then proceeded to run a closure of this using the same 3-0 Chromic, reapproximating the mucosal edges and then continuing this on the perianal skin leaving a small aperture of perianal skin. We verified good hemostasis in the area of this hemorrhoid column. Next we grasped the next largest column in the left lateral position. We made a V-shaped incision over the perianal skin carried this down into the plane above the internal sphincter carefully the hemorrhoidal tissue from the internal sphincter. We proceeded proximally until we had isolated the hemorrhoid pedicle and then performed a figure of 8 suture with 3-0 Chromic of the pedicle. We then proceeded to run a closure of this using the same 3-0 Chromic, reapproximating the mucosal edges and then continuing this on the perianal skin leaving a small aperture of perianal skin. We verified good hemostasis in the area of this hemorrhoid column. Finally we grasped the external hemorrhoids in the right posterior position. We made a V-shaped incision over the external skin carried this down under the external hemorrhoids to the proximal extent at which point we did not see much internal disease in this location and we cut off at this point. We then ran a closure with 3-0 chromic suture starting proximally and working distally. We verified good hemostasis in the area of this hemorrhoid column. We again evaluated all closure sites for good hemostasis and noted this to be the case. At this point we completed the surgery, a Gelfoam with Nupercaine cream was placed in the anal canal and the patient was fitted with mesh panties and a pad. All counts of sponges and instruments were correct x 2. The patient was taken to the recovery room in good condition. Estimated Blood Loss: 25 cc Specimens: Hemorrhoids Condition: Stable Disposition: PACU I/primary surgeon/proceduralist performed the procedure with assistance. Nahun Gustafson MD February 01, 2024 5:05 PM Please Note: This office note has been created using Commun[employer], a speech recognition software program, and may contain errors including punctuation, grammar, spelling, gender, and inappropriate words or phrases that pertain to the sytem. documented in this encounter [facility] 02-01-2024 Surgery Surgical operation note DEPARTMENT OF SURGERY OPERATIVE NOTE OPERATIVE REPORT Log ID: [id number] Surgery Date: 02/01/2024 Incision/Procedure Start Time: 3:55 PM Incision Close/Procedure End Time: 4:44 PM Surgeon(s) and Professor Of Mechanical Engineering(s): Surgeons and Role: * Nahun Gustafson MD - Primary * Aryan Galindo DO - Resident - Assisting Preoperative Diagnosis: Anal fissure [K60.2] Postoperative Diagnosis: Internal and external hemorrhoids with prolapse and bleeding PROCEDURE AND ANESTHESIA TYPE: Procedure(s) and Anesthesia Type: * HEMORRHOIDECTOMY EXTERNAL AND INTERNAL 2 OR MORE COLUMNS/GROUPS - General Findings: While in the office we thought there was a fissure in the posterior midline we did not see this on the examination under anesthesia instead finding 3 enlarged hemorrhoids in the left lateral, right lateral, and right posterior positions which were fairly inflamed. We decided given these findings that hemorrhoid removal would be better for symptom control and proceeded with this Indications and consent: The patient is a 63 year old male who presented my office with blood per rectum and anal discomfort and was found on examination to have an anal fissure. We discussed examination under anesthesia and lateral internal sphincterotomy given these findings, but did discuss the possibility of other findings and managing these as we saw fit. A thorough discussion of the risks and benefits of surgery was undertaken in the office after which he requested to undergo excisional hemorrhoidectomy. Description of Procedure: Patient was placed in high lithotomy. Timeout was completed x 2. he was prepped and draped in the usual fashion. Digital rectal exam was not remarkable. Anoscopy was completed and showed significantly large hemorrhoids at the posterior position as well as on the left lateral with some enlarged external hemorrhoids in the right posterior position. We looked carefully for a fissure as we had thought was present in the office, but on careful examination did not find a fissure or evidence of a healed fissure. After careful examination we decided that the hemorrhoids which were in the same position as that tenderness during his examination were probably to blame for his discomfort and decided proceed with hemorrhoidectomy. The largest hemorrhoid column in the posterior midline position was grasped with a hemostat and retracted outward to view its pedicle. Half percent Marcaine with epinephrine was used to inject the skin at this column and to perform some hydro-dissection of the hemorrhoid. We also put a bilateral pudendal block at this time for a total of 20 cc of half percent Marcaine with epinephrine, and then used another 10 cc in a perianal block. We made a V-shaped incision over the external skin carried this down into the plane above the internal sphincter carefully the hemorrhoidal tissue from the internal sphincter. We proceeded proximally until we had isolated the hemorrhoid pedicle and then performed a figure of 8 suture with 3-0 Chromic of the pedicle. We then proceeded to run a closure of this using the same 3-0 Chromic, reapproximating the mucosal edges and then continuing this on the perianal skin leaving a small aperture of perianal skin. We verified good hemostasis in the area of this hemorrhoid column. Next we grasped the next largest column in the left lateral position. We made a V-shaped incision over the perianal skin carried this down into the plane above the internal sphincter carefully the hemorrhoidal tissue from the internal sphincter. We proceeded proximally until we had isolated the hemorrhoid pedicle and then performed a figure of 8 suture with 3-0 Chromic of the pedicle. We then proceeded to run a closure of this using the same 3-0 Chromic, reapproximating the mucosal edges and then continuing this on the perianal skin leaving a small aperture of perianal skin. We verified good hemostasis in the area of this hemorrhoid column. Finally we grasped the external hemorrhoids in the right posterior position. We made a V-shaped incision over the external skin carried this down under the external hemorrhoids to the proximal extent at which point we did not see much internal disease in this location and we cut off at this point. We then ran a closure with 3-0 chromic suture starting proximally and working distally. We verified good hemostasis in the area of this hemorrhoid column. We again evaluated all closure sites for good hemostasis and noted this to be the case. At this point we completed the surgery, a Gelfoam with Nupercaine cream was placed in the anal canal and the patient was fitted with mesh panties and a pad. All counts of sponges and instruments were correct x 2. The patient was taken to the recovery room in good condition. Estimated Blood Loss: 25 cc Specimens: Hemorrhoids Condition: Stable Disposition: PACU I/primary surgeon/proceduralist performed the procedure with assistance. Nahun Gustafson MD February 01, 2024 5:05 PM Please Note: This office note has been created using Communi[employer]lique, a speech recognition software program, and may contain errors including punctuation, grammar, spelling, gender, and inappropriate words or phrases that pertain to the sytem. [facility] Work Phone: 02-01-2024 History and physical note HISTORY AND PHYSICAL EXAMINATION SERVICE DATE: 02/01/2024 SERVICE TIME: 1430 PRIMARY CARE PHYSICIAN: Errol Cary MD Gerald Staley 1960 [phone] REASON FOR VISIT: Gerald Staley is a 63 year old male who is scheduled for....... Procedure(s): LATERAL INTERNAL SPHINCTEROTOMY (N/A) at the request of Dr. Nahun Gustafson for routine H&P. The patient has the following: ACTIVE PROBLEM LIST Primary Hypertension Hyperlipidemia Other Chronic Pain Recurrent Major Depression in Partial Remission (Hcc) Other Cervical Disc Degeneration, Unspecified Cervical Region Bursitis of Both Shoulders Other Forms of Angina Pectoris (Hcc) S/P Left Rotator Cuff Repair Partial Nontraumatic Tear of Left Rotator Cuff Aorta Disorder (Hcc) Osteoarthritis of Both Shoulders Cervicalgia Rotator Cuff Impingement Syndrome Rotator Cuff Syndrome Obesity, Class II, Bmi 35-39.9 Subclinical Hypothyroidism Acute Pulmonary Embolism Without Acute Cor Pulmonale (Hcc) Constipation Due to Opioid Therapy High Risk Medications (Not Anticoagulants) Long-Term Use Cavernous Malformation Mild Cognitive Impairment With Memory Loss Obesity, Class I, Bmi 30-34.9 Chondromalacia Osteoarthritis of Shoulder Covid-19 Dehydration [employer] (Current) Use of Opiate Analgesic Superior Glenoid Labrum Lesion of Left Shoulder Tear of Supraspinatus Tendon Myofascial Pain Syndrome Bipolar 2 Disorder (Hcc) Subjective CHIEF COMPLAINT: The reason for this visit is to perform a comprehensive review of the patient's past medical history, assess their current health status and obtain any additional testing required based on anesthesia guidelines. We will also identify any potential anesthesia problems or contraindications to the planned procedure. HPI: Gerald Staley is a 63 year old male who is scheduled for above procedure. He has h/o intermittent anal pain and rectal bleeding for the last several years. He more recently has been experiencing abdominal pain. Exam done at Dr. Gustafson's office demonstrated, "Moderately enlarged hemorrhoids in all 3 tridents, and in the posterior anal canal a small posterior fissure ~ 5 mm is found where he does localize tenderness " After discussion with the surgeon patient agrees to surgical intervention. PAST MEDICAL HISTORY Diagnosis Date Abnormal EKG 04/23/2017 inf [place] age undetermined Acute pulmonary embolism without acute cor pulmonale (HCC) Adenomatous colon polyp Anal fissure Anxiety Aorta disorder (HCC) Bipolar 2 disorder (HCC) Chicken pox Colon polyps Depression ED (erectile dysfunction) Headache HTN (hypertension) Hypogonadism male 04/25/2010 Hypothyroidism Myofascial pain dysfunction syndrome Obesity Osteoarthritis of multiple joints Pulmonary embolism (HCC) Rectal bleed Shingles Shoulder [...] - small - 5 year follow up EGD DIAGNOSTIC 12/2023 ESOPHAGOGASTRODUODENOSCOPY TRANSORAL DIAGNOSTIC 05/25/2018 Duodenitis, Gastritis FOOT SURGERY HX Right 2013 Cheilectomy, 1st metatarsophalangeal joint, OPEN REPAIR OF ROTATOR CUFF ACUTE Right 10/2016 Rotator cuff repair - Dr. Santamaria RECONSTRUCTION ROTATOR CUFF AVULSION CHRONIC Left 03/21/2010 Dr. Gant - Amber REPAIR UMBILICAL HERNIA 2016 RPR UMBILICAL HRNA 5 YRS/> REDUCIBLE 06/11/2016 simple SKIN GRAFT HX Right 1986 eyelid TONSILLECTOMY HX Childhood FAMILY HISTORY Problem Relation Age of Onset Diabetes Mother Hypertension Mother Arthritis Mother Breast Cancer Mother Dementia Mother Cancer Father throat Asthma No Family History Colon Cancer No Family History SOCIAL HISTORY: Social History Tobacco Use Smoking status: Never Smokeless tobacco: Never Vaping Use Vaping status: Never Used Substance Use Topics Alcohol use: Yes Alcohol/week: 6.0 standard drinks of alcohol Types: 6 Cans of Beer (12oz) per week Comment: 12 pack a week Drug use: Not Currently Comment: no longer using. Prior to Admission medications as of 02/01/24 0819 Medication Sig Last Dose Taking losartan (COZAAR) 100 mg tablet Take 1 tablet by mouth once daily. triamterene-hydroCHLOROthiazide (MAXZIDE-25MG) 37.5-25 mg per tablet Take 1 tablet by mouth once daily. omeprazole (PRILOSEC) 40 mg capsule Take 1 capsule by mouth once daily. diclofenac (VOLTAREN) 1 % topical gel Apply 4 g to affected area four times daily as needed (for pain). As Directed. Patient not taking: Reported on 12/09/2023 No medication comments found. ALLERGIES Allergen Reactions Bakari Inhibitors Cough Darvocet A500 [Prop* GI Upset REVIEW OF SYSTEMS: PAIN ASSESSMENT: General: Denies fever, chills, and unexpected weight change. Neuro: Denies dizziness and headaches. Denies seizure or stroke. Respiratory: Denies SOB or cough. Denies asthma, COPD JASON Cardiovascular: + HTN Denies CP and palpitations. Denies HLD CAD CHF GI: Denies abd pain and N/V/D. : Denies dysuria. Denies CKD Endocrine: No history of diabetes or thyroid disease Hematology: + PE Denies history of bleeding or clotting disorder. Psych: + anxiety/depression. Musculoskeletal: Denies joint pain and swelling. Skin: Denies open sores and rashes. Objective PHYSICAL EXAM: VITALS: See nursing flow sheet for vital signs General: NAD. Cooperative. Skin: Skin is warm, no rashes, and no open sores. HEENT: Normocephalic. Cardiovascular: Normal S1 & S2. No murmur. Lungs: CTA. No respiratory distress. Abdomen: Soft. Extremities: No edema. Neurological: Alert and oriented to person, place, and nela Diagnostic tests reviewed for today's visit: Lab Value Units Date High Low HB 17.1 g/dL 11/30/2023 17.0 13.0 HCT 51.3 % 11/30/2023 51.0 39.0 WBC 7.35 k/uL 11/30/2023 11.00 3.70 PLT 221 k/uL 11/30/2023 400 150 NA 139 mmol/L 11/30/2023 144 136 K 4.0 mmol/L 11/30/2023 5.1 3.7 GLUC 78 mg/dL 11/30/2023 99 74 BUN 19 mg/dL 11/30/2023 24 9 CREAT 1.17 mg/dL 11/30/2023 1.22 0.73 PTSEC No results within date range. INR No results within date range. APTT No results within date range. ALT 25 U/L 11/30/2023 54 10 AST 17 U/L 11/30/2023 40 14 TBILI 0.8 mg/dL 11/30/2023 1.3 0.2 TSH No results within date range. Lab Value Units Date High Low HCGQT No results within date range. UHCG No results within date range. HCG, BODY* No results within date range. Lab Value Units Date High Low ABORHD No results within date range. ABSCREEN No results within date range. Hemoglobin A1C (%) Date Value 01/01/2018 5.2 11/27/2016 5.3 Most recent labs Assessment/Plan ANESTHESIA FINDINGS: Intubation History: No history of difficult intubation Significant Anesthesia Considerations: None FAMILY PROBLEMS WITH ANESTHESIA: no history of adverse anesthetic event METS: Climb a flight of stairs or walk up a hill (5.50 METs) Patient denies any chest pain or undue shortness of breath with the above physical activity. Patient has the following medical conditions which may affect argenis-operative course Pre op exam -see note for medical conditions which may affect argenis-operative course that were addressed at today's visit. [id number], losartan GERD-Controlled with PPI-EGD 01/05/2024 PE- [id number]-[id number] on eliquis in the past for 6 months off now. Hypothyroid-not on medications 11/2022 TSH 3.190 Aortic dilation -Echo 05/2021-The visualized aorta is dilated. Measurements - Sinus: 4.2 cm. Sinotubular junction 3.3 cm. Mid ascending aorta 3.7 cm. -patient unsure of special events fundraiser name-has not seen in 2 years [facility]-12 beers weekly. Stress test 09/23/2021 CONCLUSIONS: 1. SPECT Perfusion Study: Normal. 2. There is no scintigraphic evidence for inducible ischemia. 3. No evidence of scarred myocardium. 4. Left ventricle is normal in size. The left ventricle systolic function is normal. 5. Right ventricle is normal in size. The right ventricle systolic function is normal. 6. This is a low risk scan. Gated Stress FBP LVEF % 64 Echo 05/2021 CONCLUSIONS: - Technically difficult exam due to body habitus. - Exam indication: Chest Pain - The left ventricle is small. Left ventricular systolic function is normal. EF = 66 5% (2D biplane) Grade I left ventricular diastolic dysfunction. - The right ventricle is normal in size. Right ventricular systolic function is normal. - There are no significant valvular abnormalities. - The visualized aorta is dilated with a maximal dimension of 4.2 cm. - The patient has not had a prior CC echocardiographic exam for comparison. PLAN Procedure Diagnosis: Anal fissure [K60.2] Planned Procedure: Procedure(s): LATERAL INTERNAL SPHINCTEROTOMY (N/A) Planned Anesthetic: General I spent a total of 20 minutes on the date of the service which included preparing to see the patient, [id number] patient care, completing clinical documentation, obtaining and/or reviewing separately obtained history, and performing a medically appropriate examination. SIGNATURE: Desi Carter APRN.CNP PATIENT NAME: Gerald Staley DATE: February 01, 2024 TIME: 2:05 PM PAGER/CONTACT #: [facility] 02-01-2024 History and physical note HISTORY AND PHYSICAL EXAMINATION SERVICE DATE: 02/01/2024 SERVICE TIME: 1430 PRIMARY CARE PHYSICIAN: Errol Cary MD Gerald Staley 1960 [phone] REASON FOR VISIT: Gerald Staley is a 63 year old male who is scheduled for....... Procedure(s): LATERAL INTERNAL SPHINCTEROTOMY (N/A) at the request of Dr. Nahun Gustafson for routine H&P. The patient has the following: ACTIVE PROBLEM LIST Primary Hypertension Hyperlipidemia Other Chronic Pain Recurrent Major Depression in Partial Remission (Hcc) Other Cervical Disc Degeneration, Unspecified Cervical Region Bursitis of Both Shoulders Other Forms of Angina Pectoris (Hcc) S/P Left Rotator Cuff Repair Partial Nontraumatic Tear of Left Rotator Cuff Aorta Disorder (Hcc) Osteoarthritis of Both Shoulders Cervicalgia Rotator Cuff Impingement Syndrome Rotator Cuff Syndrome Obesity, Class II, Bmi 35-39.9 Subclinical Hypothyroidism Acute Pulmonary Embolism Without Acute Cor Pulmonale (Hcc) Constipation Due to Opioid Therapy High Risk Medications (Not Anticoagulants) Long-Term Use Cavernous Malformation Mild Cognitive Impairment With Memory Loss Obesity, Class I, Bmi 30-34.9 Chondromalacia Osteoarthritis of Shoulder Covid-19 Dehydration Correction (Current) Use of Opiate Analgesic Superior Glenoid Labrum Lesion of Left Shoulder Tear of Supraspinatus Tendon Myofascial Pain Syndrome Bipolar 2 Disorder (Hcc) Subjective CHIEF COMPLAINT: The reason for this visit is to perform a comprehensive review of the patient's past medical history, assess their current health status and obtain any additional testing required based on anesthesia guidelines. We will also identify any potential anesthesia problems or contraindications to the planned procedure. HPI: Gerald Staley is a 63 year old male who is scheduled for above procedure. He has h/o intermittent anal pain and rectal bleeding for the last several years. He more recently has been experiencing abdominal pain. Exam done at Dr. Gustafson's office demonstrated, "Moderately enlarged hemorrhoids in all 3 tridents, and in the posterior anal canal a small posterior fissure ~ 5 mm is found where he does localize tenderness " After discussion with the surgeon patient agrees to surgical intervention. PAST MEDICAL HISTORY Diagnosis Date Abnormal EKG 04/23/2017 inf [place] age undetermined Acute pulmonary embolism without acute cor pulmonale (HCC) Adenomatous colon polyp Anal fissure Anxiety Aorta disorder (HCC) Bipolar 2 disorder (HCC) Chicken pox Colon polyps Depression ED (erectile dysfunction) Headache HTN (hypertension) Hypogonadism male 04/25/2010 Hypothyroidism Myofascial pain dysfunction syndrome Obesity Osteoarthritis of multiple joints Pulmonary embolism (HCC) Rectal bleed Shingles Shoulder [...] - small - 5 year follow up EGD DIAGNOSTIC 12/2023 ESOPHAGOGASTRODUODENOSCOPY TRANSORAL DIAGNOSTIC 05/25/2018 Duodenitis, Gastritis FOOT SURGERY HX Right 2013 Cheilectomy, 1st metatarsophalangeal joint, OPEN REPAIR OF ROTATOR CUFF ACUTE Right 10/2016 Rotator cuff repair - Dr. Santamaria RECONSTRUCTION ROTATOR CUFF AVULSION CHRONIC Left 03/21/2010 Dr. Gant - [place] REPAIR UMBILICAL HERNIA 2017 RPR UMBILICAL HRNA 5 YRS/> REDUCIBLE 06/11/2016 simple SKIN GRAFT HX Right 1986 eyelid TONSILLECTOMY HX Childhood FAMILY HISTORY Problem Relation Age of Onset Diabetes Mother Hypertension Mother Arthritis Mother Breast Cancer Mother Dementia Mother Cancer Father throat Asthma No Family History Colon Cancer No Family History SOCIAL HISTORY: Social History Tobacco Use Smoking status: Never Smokeless tobacco: Never Vaping Use Vaping status: Never Used Substance Use Topics Alcohol use: Yes Alcohol/week: 6.0 standard drinks of alcohol Types: 6 Cans of Beer (12oz) per week Comment: 12 pack a week Drug use: Not Currently Comment: no longer using. Prior to Admission medications as of 02/01/24 0819 Medication Sig Last Dose Taking losartan (COZAAR) 100 mg tablet Take 1 tablet by mouth once daily. triamterene-hydroCHLOROthiazide (MAXZIDE-25MG) 37.5-25 mg per tablet Take 1 tablet by mouth once daily. omeprazole (PRILOSEC) 40 mg capsule Take 1 capsule by mouth once daily. diclofenac (VOLTAREN) 1 % topical gel Apply 4 g to affected area four times daily as needed (for pain). As Directed. Patient not taking: Reported on 12/09/2023 No medication comments found. ALLERGIES Allergen Reactions Bakari Inhibitors Cough Darvocet A500 [Prop* GI Upset REVIEW OF SYSTEMS: PAIN ASSESSMENT: General: Denies fever, chills, and unexpected weight change. Neuro: Denies dizziness and headaches. Denies seizure or stroke. Respiratory: Denies SOB or cough. Denies asthma, COPD JASON Cardiovascular: + HTN Denies CP and palpitations. Denies HLD CAD CHF GI: Denies abd pain and N/V/D. : Denies dysuria. Denies CKD Endocrine: No history of diabetes or thyroid disease Hematology: + PE Denies history of bleeding or clotting disorder. Psych: + anxiety/depression. Musculoskeletal: Denies joint pain and swelling. Skin: Denies open sores and rashes. Objective PHYSICAL EXAM: VITALS: See nursing flow sheet for vital signs General: NAD. Cooperative. Skin: Skin is warm, no rashes, and no open sores. HEENT: Normocephalic. Cardiovascular: Normal S1 & S2. No murmur. Lungs: CTA. No respiratory distress. Abdomen: Soft. Extremities: No edema. Neurological: Alert and oriented to person, place, and nela Diagnostic tests reviewed for today's visit: Lab Value Units Date High Low HB 17.1 g/dL 11/30/2023 17.0 13.0 HCT 51.3 % 11/30/2023 51.0 39.0 WBC 7.35 k/uL 11/30/2023 11.00 3.70 PLT 221 k/uL 11/30/2023 400 150 NA 139 mmol/L 11/30/2023 144 136 K 4.0 mmol/L 11/30/2023 5.1 3.7 GLUC 78 mg/dL 11/30/2023 99 74 BUN 19 mg/dL 11/30/2023 24 9 CREAT 1.17 mg/dL 11/30/2023 1.22 0.73 PTSEC No results within date range. INR No results within date range. APTT No results within date range. ALT 25 U/L 11/30/2023 54 10 AST 17 U/L 11/30/2023 40 14 TBILI 0.8 mg/dL 11/30/2023 1.3 0.2 TSH No results within date range. Lab Value Units Date High Low HCGQT No results within date range. UHCG No results within date range. HCG, BODY* No results within date range. Lab Value Units Date High Low ABORHD No results within date range. ABSCREEN No results within date range. Hemoglobin A1C (%) Date Value 01/01/2018 5.2 11/27/2016 5.3 Most recent labs Assessment/Plan ANESTHESIA FINDINGS: Intubation History: No history of difficult intubation Significant Anesthesia Considerations: None FAMILY PROBLEMS WITH ANESTHESIA: no history of adverse anesthetic event METS: Climb a flight of stairs or walk up a hill (5.50 METs) Patient denies any chest pain or undue shortness of breath with the above physical activity. Patient has the following medical conditions which may affect argenis-operative course Pre op exam -see note for medical conditions which may affect argenis-operative course that were addressed at today's visit. [id number], losartan GERD-Controlled with PPI-EGD 01/05/2024 PE- [id number] on eliquis in the past for 6 months off now. Hypothyroid-not on medications 11/2022 TSH 3.190 Aortic dilation -Echo 05/2021-The visualized aorta is dilated. Measurements - Sinus: 4.2 cm. Sinotubular junction 3.3 cm. Mid ascending aorta 3.7 cm. -patient unsure of special events fundraiser name-has not seen in 2 years ETOH-12 beers weekly. Stress test 09/23/2021 CONCLUSIONS: 1. SPECT Perfusion Study: Normal. 2. There is no scintigraphic evidence for inducible ischemia. 3. No evidence of scarred myocardium. 4. Left ventricle is normal in size. The left ventricle systolic function is normal. 5. Right ventricle is normal in size. The right ventricle systolic function is normal. 6. This is a low risk scan. Gated Stress FBP LVEF % 64 Echo 05/2021 CONCLUSIONS: - Technically difficult exam due to body habitus. - Exam indication: Chest Pain - The left ventricle is small. Left ventricular systolic function is normal. EF = 66 5% (2D biplane) Grade I left ventricular diastolic dysfunction. - The right ventricle is normal in size. Right ventricular systolic function is normal. - There are no significant valvular abnormalities. - The visualized aorta is dilated with a maximal dimension of 4.2 cm. - The patient has not had a prior CC echocardiographic exam for comparison. PLAN Procedure Diagnosis: Anal fissure [K60.2] Planned Procedure: Procedure(s): LATERAL INTERNAL SPHINCTEROTOMY (N/A) Planned Anesthetic: General I spent a total of 20 minutes on the date of the service which included preparing to see the patient, [id number] patient care, completing clinical documentation, obtaining and/or reviewing separately obtained history, and performing a medically appropriate examination. SIGNATURE: Desi Carter APRN.CNP PATIENT NAME: Gerald Staley DATE: February 01, 2024 TIME: 2:05 PM PAGER/CONTACT #: documented in this encounter [facility] 01-13-2024 Telephone encounter Note LVMTCB for biopsy results or to review them on mychart. [facility] 01-13-2024 Miscellaneous Notes LVMTCB for biopsy results or to review them on mychart. documented in this encounter [facility] 01-11-2024 Note HNO ID: [id number] Author: DARA PUTNAM MA Service: ? Author Type: Tile Setter Supervisor Type: Progress Notes Filed: 01/11/2024 11:45 Note Text: POPULATION HEALTH NAVIGATION OUTREACH Action/FYI msg to schedule wellness, hcc gap closure, influenza, bp to be addressed as not compliant not <130/80 Reason for Outreach Care Gap/HCC or Scheduling Wellness Visits Care Gaps due: Medicare Annual Wellness Visit Controlling Blood Pressure Flu Vaccine Patient Contacted: Unable or unnecessary to reach patient: Left message [employer] message sent HCC related Navigation Signature: Dara Putnam MA January 11, 2024 11:45 AM [facility] 01-11-2024 History of Present illness Narrative POPULATION HEALTH NAVIGATION OUTREACH Action/FYI msg to schedule wellness, hcc gap closure, influenza, bp to be addressed as not compliant not <130/80 Reason for Outreach Care Gap/HCC or Scheduling Wellness Visits Care Gaps due: Medicare Annual Wellness Visit Controlling Blood Pressure Flu Vaccine Patient Contacted: Unable or unnecessary to reach patient: Left message [facility] [employer] message sent HCC related Navigation Signature: Dara Putnam MA January 11, 2024 11:45 AM documented in this encounter [facility] 01-11-2024 Note Patient Outreach (NE TNAV) ---- GERALD STALEY ([id number]) 1960 M Date Time Provider Department 01/11/24 DARA PUTNAM During your visit today, we recorded the following information about you: Dara Putnam MA 01/11/2024 11:45 AM Signed POPULATION HEALTH NAVIGATION OUTREACH Action/FYI msg to schedule wellness, hcc gap closure, influenza, bp to be addressed as not compliant not <130/80 Reason for Outreach Care Gap/HCC or Scheduling Wellness Visits Care Gaps due: Medicare Annual Wellness Visit Controlling Blood Pressure Flu Vaccine Patient Contacted: Unable or unnecessary to reach patient: Left message [facility] [employer] message sent HCC related Navigation Signature: Dara Putnam MA January 11, 2024 11:45 AM Allergies As of Date: 01/11/2024 Noted Allergy Reaction BAKARI INHIBITORS 05/22/2016 3 - Cough DARVOCET A500 (PROPOXYPHENE N-BAKARI*04/24/2016 8 - GI Upset Date Reviewed: 01/05/2024 Reviewed by: Jennifer Azul RN - Fully Assessed Reason for Visit: Population Health Navigation Outreach [3910] Cmt: Dillon masmic joe Prescriptions as of 01/11/2024 - losartan (COZAAR) 100 mg tablet Take 1 tablet by mouth once daily. - triamterene-hydroCHLOROthiazide (MAXZIDE-25MG) 37.5-25 mg per tablet Take 1 tablet by mouth once daily. - omeprazole (PRILOSEC) 40 mg capsule Take 1 capsule by mouth once daily. - diclofenac (VOLTAREN) 1 % topical gel Apply 4 g to affected area four times daily as needed (for pain). As Directed. Problem List As Of Date 01/11/2024 Noted Resolved SPRAIN SHOULDER/ARM NOS [[id number]] 06/22/2008 09/25/2008 Rotator cuff (capsule) sprain [S43.429A] 09/25/2008 05/22/2016 Primary hypertension [I10] 05/07/2009 Hyperlipidemia [E78.5] 05/07/2009 Hypogonadism male [E29.1] 04/25/2010 05/22/2016 Other chronic pain [G89.29] 11/12/2011 Onychomycosis due to dermatophyte [B35.1] 02/08/2013 04/24/2016 Sprain of rhomboid [S23.8XXA] 06/12/2015 05/22/2016 Cervical myofascial strain [S16.1XXA] 06/12/2015 05/22/2016 Shoulder strain [S46.919A] 06/12/2015 04/17/2017 Strain of right shoulder [S46.911A] 08/10/2015 05/22/2016 Cervical strain [S16.1XXA] 08/10/2015 05/22/2016 Situational depression [F43.21] 09/17/2015 05/22/2016 Reactive depression [F32.9] 10/05/2015 04/24/2016 Chronic right-sided low back pain with right-si*10/25/2015 05/22/2016 Heel pain, bilateral [M79.671, M79.672] 10/25/2015 05/22/2016 Chronic pain [G89.29] 11/09/2015 05/22/2016 Recurrent major depression in partial remission*04/24/2016 Umbilical hernia without obstruction and withou*06/05/2016 06/11/2016 Strain of other muscles, fascia and tendons at *11/10/2016 04/17/2017 Sprain of other specified parts of right should*11/10/2016 04/17/2017 Other cervical disc degeneration, unspecified c*04/29/2017 Bursitis of both shoulders [M75.51, M75.52] 01/04/2020 Other forms of angina pectoris (HCC) [I20.89] 01/06/2020 S/P left rotator cuff repair [Z98.890] 04/16/2020 Partial nontraumatic tear of left rotator cuff *04/16/2020 Hypothyroidism, acquired [E03.9] 05/28/2021 10/16/2021 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] 06/07/2021 Osteoarthritis of both shoulders [M19.011, M19.*08/05/2021 Cervicalgia [M54.2] 08/05/2021 Rotator cuff impingement syndrome [M75.40] 08/05/2021 Rotator cuff syndrome [M75.100] 09/09/2021 Obesity, Class II, BMI 35-39.9 [E66.812] 09/09/2021 Subclinical hypothyroidism [E03.8] 10/16/2021 Acute pulmonary embolism without acute cor pulm*11/04/2021 Constipation due to opioid therapy [K59.03, T40*11/06/2021 High risk medications (not anticoagulants) long*12/20/2021 Cavernous malformation [Q28.3] 03/28/2022 Mild cognitive impairment with memory loss [G31*03/28/2022 Obesity, Class I, BMI 30-34.9 [E66.811] 06/30/2022 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] 01/16/2020 Diagnosed: 11/10/2022 Osteoarthritis of shoulder [M19.019] 04/15/2021 Diagnosed: 11/10/2022 COVID-19 [U07.1] 10/22/2021 Diagnosed: 11/10/2022 Dehydration [E86.0] 11/10/2022 Diagnosed: 11/10/2022 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*12/16/2016 Diagnosed: 11/10/2022 Superior glenoid labrum lesion of left shoulder*01/16/2020 Diagnosed: 11/10/2022 Tear of supraspinatus tendon [M75.100] 01/16/2020 Diagnosed: 11/10/2022 Myofascial pain syndrome [M79.18] 02/11/2023 Bipolar 2 disorder (HCC) [F31.81] 03/03/2023 Encounter Status:Closed by DARA PUTNAM on 01/11/24 [facility] 01-07-2024 Telephone encounter Note Patient has been identified by name and date of : Yes Patient phones for refill(s): Requested Prescriptions Pending Prescriptions Disp Refills losartan (COZAAR) 100 mg tablet 90 tablet 3 Sig: Take 1 tablet by mouth once daily. triamterene-hydroCHLOROthiazide (MAXZIDE-25MG) 37.5-25 mg per tablet 90 tablet 3 Sig: Take 1 tablet by mouth once daily. Date of last office visit in primary care: 12/03/2022 Date of next office visit in primary care: Visit date not found Please advise. Thank you. Kemi Holguin. [facility] 01-07-2024 Miscellaneous Notes Patient has been identified by name and date of : Yes Patient phones for refill(s): Requested Prescriptions Pending Prescriptions Disp Refills losartan (COZAAR) 100 mg tablet 90 tablet 3 Sig: Take 1 tablet by mouth once daily. triamterene-hydroCHLOROthiazide (MAXZIDE-25MG) 37.5-25 mg per tablet 90 tablet 3 Sig: Take 1 tablet by mouth once daily. Date of last office visit in primary care: 12/03/2022 Date of next office visit in primary care: Visit date not found Please advise. Thank you. Kemi Holguin. documented in this encounter [facility] 01-05-2024 Note HNO ID: [id number] Author: JENNIFER AZUL RN Service: ? Author Type: Registered Nurse Type: Nursing Progress Note Filed: 01/05/2024 10:02 Note Text: Dr Fontenot at bedside to speak with patient and at bedside. Patient PIV removed, catheter intact. [facility] 01-05-[address] Fontenot at bedside to speak with patient and at bedside. Patient PIV removed, catheter intact. [facility] 01-05-[address] Fontenot at bedside to speak with patient and at bedside. Patient PIV removed, catheter intact. Patient PIV in right hand, infusing, no redness noted. documented in this encounter [facility] 01-05-2024 Note Formatting of this n ote might be different from the original. The patient received a copy of EGD discharge instructions that contain information for how to contact the physician who performed the procedure and when to seek medical care. [facility] 01-05-2024 Note HNO ID: [id number] Author: JENNIFER AZUL RN Service: ? Author Type: Registered Nurse Type: Nursing Progress Note Filed: 01/05/2024 09:04 Note Text: Patient PIV in right hand, infusing, no redness noted. [facility] 01-05-2024 Nurse Note Patient PIV in right hand, infusing, no redness noted. [facility] 01-05-2024 Miscellaneous Notes The patient received a copy of EGD discharge instructions that contain information for how to contact the physician who performed the procedure and when to seek medical care. documented in this encounter [facility] 01-05-2024 History and physical note HISTORY AND PHYSICAL Gerald Staley, 63 year old male here for EGD to evaluate upper abdominal pain and diarrhea Current history and physical on file: No Is a new History and Physical required for today's visit? Yes Indication for procedure: Abdominal pain and Diarrhea PROCEDURE(S) SCHEDULED FOR: EGD (Esophagogastroduodenoscopy) with or without biopsies, removal of polyps or lesions, dilation ( any means), treatment of bleeding ( any means), Barrx treatment of Jose Guadalupe's Esophagus, image tube placement or cryo therapy treatment based on clinical findings. BASELINE BEHAVIOR: Calm BASELINE ORIENTATION: A & O x3 All medications and allergies reviewed: Yes Skin Assessment: Warm dry muscus membranes pink Airway/Respiratory Assessment: Airway: visualization of the uvula- Yes Mouth: opening greater than 2 fingerbreadths- Yes Neck: full range of motion- Yes Breath sounds clear/equal- Yes Cardiac Assessment: Regular rate and rhythm without murmur Abdominal Assessment: Abdomen soft, non-tender, no masses or organomegaly. Sedation Plan: Deep Additional Comments: None David Fontenot MD [facility] 01-05-2024 History and physical note HISTORY AND PHYSICAL Gerald Staley, 63 year old male here for EGD to evaluate upper abdominal pain and diarrhea Current history and physical on file: No Is a new History and Physical required for today's visit? Yes Indication for procedure: Abdominal pain and Diarrhea PROCEDURE(S) SCHEDULED FOR: EGD (Esophagogastroduodenoscopy) with or without biopsies, removal of polyps or lesions, dilation ( any means), treatment of bleeding ( any means), Barrx treatment of Jose Guadalupe's Esophagus, image tube placement or cryo therapy treatment based on clinical findings. BASELINE BEHAVIOR: Calm BASELINE ORIENTATION: A & O x3 All medications and allergies reviewed: Yes Skin Assessment: Warm dry muscus membranes pink Airway/Respiratory Assessment: Airway: visualization of the uvula- Yes Mouth: opening greater than 2 fingerbreadths- Yes Neck: full range of motion- Yes Breath sounds clear/equal- Yes Cardiac Assessment: Regular rate and rhythm without murmur Abdominal Assessment: Abdomen soft, non-tender, no masses or organomegaly. Sedation Plan: Deep Additional Comments: None David Fontenot MD documented in this encounter [facility] 12-29-2023 Telephone encounter Note Pre op call - LM on VM [facility] 12-29-2023 Miscellaneous Notes Pre op call - LM on VM documented in this encounter [facility] 12-18-2023 History of Present illness Narrative Radiology Service Progress Note DATE OF SERVICE: December 18, 2023 TIME: 3:46 PM PATIENT IDENTITY VERIFICATION COMPLETED USING TWO (2) STANDARD IDENTIFIERS: Name and Date of confirmed by patient verbally. FALL SCREENING: Has the patient had 2 falls in the last year or 1 fall with injury or currently using an Ambulatory Assistive Device (Walker, Cane, Wheelchair, Crutches, etc.)? No PATIENT GENDER DATA: Male PATIENT RELEVANT IMPLANT DATA REVIEWED: Yes PATIENT PRESENTS WITH AN IMPLANTABLE OR ATTACHED MORTGAGE PROFESSIONAL: No ALLERGIES: Reviewed and unchanged CONTRAST ALLERGY: NO. EXAM: MRI - CONTRAST TYPE: GROUP II PERIPHERAL IV DATA: Ambulatory: A peripheral IV was started in the Left antecubital site with a Angio cath: 22 gauge. RADIOLOGY DEPARTMENT: MR; Exam(s) Completed: Body: Liver (routine) SIGNATURE: Rosmery ([facility]) PATIENT NAME: Gerald Staley DATE: December 18, 2023 TIME: 3:46 PM documented in this encounter [facility] 12-18-2023 Note HNO ID: [id number] Author: ?, ?, ? Service: ? Author Type: ? Type: Progress Notes Filed: 12/18/2023 15:47 Note Text: Radiology Service Progress Note DATE OF SERVICE: December 18, 2023 TIME: 3:46 PM PATIENT IDENTITY VERIFICATION COMPLETED USING TWO (2) STANDARD IDENTIFIERS: Name and Date of confirmed by patient verbally. FALL SCREENING: Has the patient had 2 falls in the last year or 1 fall with injury or currently using an Ambulatory Assistive Device (Walker, Cane, Wheelchair, Crutches, etc.)? No PATIENT GENDER DATA: Male PATIENT RELEVANT IMPLANT DATA REVIEWED: Yes PATIENT PRESENTS WITH AN IMPLANTABLE OR ATTACHED MORTGAGE PROFESSIONAL: No ALLERGIES: Reviewed and unchanged CONTRAST ALLERGY: NO. EXAM: MRI - CONTRAST TYPE: GROUP II PERIPHERAL IV DATA: Ambulatory: A peripheral IV was started in the Left antecubital site with a Angio cath: 22 gauge. RADIOLOGY DEPARTMENT: MR; Exam(s) Completed: Body: Liver (routine) SIGNATURE: [facility]mery ([facility]) PATIENT NAME: Gerald Staley DATE: December 18, 2023 TIME: 3:46 PM [facility] 12-10-2023 Telephone encounter Note Surgery Checklist Type: LATERAL INTERNAL SPHINCTEROTOMY Admission Type: outpatient Anesthesia: MAC Date: 02/01/24 Arrival Time: 12:35 PM Surgery Time: 2:35 PM Location: [facility] Surgery Information given at appointment. Jackson Wagner [facility] 12-10-2023 Miscellaneous Notes Surgery Checklist Type: LATERAL INTERNAL SPHINCTEROTOMY Admission Type: outpatient Anesthesia: MAC Date: 02/01/24 Arrival Time: 12:35 PM Surgery Time: 2:35 PM Location: [facility] Surgery Information given at appointment. Jackson Wagner documented in this encounter [facility] 12-09-2023 Instructions Nahun Gustafson MD - 12/09/2023 2:28 PM EDT Images from the original note were not included. Improving Your Health with Fiber This guide provides basic information to help you start increasing dietary fiber in your diet. These are general guidelines that may be tailored to meet your needs. Fiber is an important dietary substance to help support your health. Making changes in your current eating habits will help you eat more healthfully. Most fiber-containing foods are also good sources of vitamins, minerals, and antioxidants, which offer many health benefits. A registered dietitian can provide in-depth nutrition education to help you develop a personal action plan. What is fiber? Fiber is the structural part of plant foods--such as fruits, vegetables, and grains--that our bodies cannot digest or break down. There are two kinds of fiber: soluble and insoluble. Soluble fiber: dissolves in water to form a gummy gel. It can slow down the passage of food from the stomach to the intestine. Examples: dried beans, oats, barley, bananas, potatoes, and soft parts of apples and pears Insoluble fiber: often referred to as "roughage" because it does not dissolve in water. It holds onto water, which helps produce softer, bulkier stools to help regulate bowel movements. Examples: whole bran, whole grain products, nuts, corn, carrots, grapes, berries, and peels of apples and pears What other things does fiber do? Research has shown that a diet rich in fiber is associated with many health benefits, including the following: Lowers cholesterol-Soluble fiber has been shown to lower cholesterol by binding to bile (composed of cholesterol) and taking it out of the body. This may help reduce the risk of heart disease. Better regulates blood sugar levels-A high-fiber meal slows down the digestion of food into the intestines, which may help to keep blood sugars from rising rapidly. Weight control-A high-fiber diet may help keep you kumari longer, which prevents overeating and hunger between meals. May prevent intestinal cancer-Insoluble fiber increases the bulk and speed of food moving through the intestinal tract, which reduces time for harmful substances to build up. Constipation-Constipation can often be relieved by increasing the fiber or roughage in your diet. Fiber works to help regulate bowel movements by pulling water into the colon to produce softer, bulkier stools. This action helps to promote better regularity. How much fiber should I eat? The Academy of Nutrition and Dietetics recommends consuming about 25-35 grams of total fiber per day, with 10-15 grams from soluble fiber or 14g of fiber per 1,000 calories. This can be accomplished by choosing 6 ounces of grains (3 or more ounces from whole grains), 2 cups of vegetables, and 2 cups of fruit per day (based on a 2,000 calorie/day pattern). However, as we age, fiber requirements decrease. For those over the age of 70, the recommendation for women is 21 grams and for men 30 grams of total fiber per day. Note: Eating a high-fiber diet may interfere with the absorption and effectiveness of some medications. Speak to your doctor about which medications to take with caution and when to take them. Fiber also binds with certain nutrients and carries them out of the body. To avoid this, aim for the recommended 20-35 grams of fiber per day. When eating a high-fiber diet, be sure to drink at least eight glasses of fluid each day. Tips for increasing dietary fiber in your diet: Add fiber to your diet slowly. Too much fiber all at once may cause cramping, bloating, and constipation. When adding fiber to your diet, be sure to increase fluids (at least 64 ounces per day) to prevent constipation. Buy bread with 2-4 grams of dietary fiber per slice. Buy cereals with at least 5 grams of dietary fiber per serving. Choose cereals with a whole grain such as whole wheat or whole grain rolled oats. Choose raw fruits and vegetables in place of juice. Choose products that have a whole grain listed as the first ingredient, not enriched flour. Whole wheat flour is a whole grain--wheat flour is not. Try alternative fiber choices such as whole buckwheat, whole wheat couscous, quinoa, bulgur, wheat germ, hernandez seeds, hemp seeds, lentil pasta, and edamame pasta. Popcorn is a whole grain. Serve it low-fat without butter for a healthier snack choice. Try whole wheat bread and whole wheat pastas. Sprinkle bran in soups, cereals, baked products, spaghetti sauce, ground meat, and casseroles. Bran also mixes well with orange juice. Use dried peas, beans, and legumes in main dishes, salads, or side dishes such as rice or pasta. Eat the skins of raw fruits and vegetables. Add dried fruit to yogurt, cereal, rice, and muffins. Try brown rice and whole grain pastas. Choose crackers with a whole grain listed as the first ingredient. Look for whole grain rye and wheat crackers. Fiber supplements Fiber supplements may be an option if you are not able to get enough fiber from your diet. Fiber supplements can be used to normalize both constipation and diarrhea. Check with your doctor before starting any kind of supplement. Read labels for fiber carefully. Drink at least 8 ounces of liquids with your supplement. Taking some fiber supplements without adequate liquids may cause the fiber to swell and may cause choking and constipation. Take a total of 64 oz water daily. Some fiber supplements to consider are Benefiber (wheat dextrin), Metamucil (psyllium), Konsyl (psyllium), Citrucel (methylcellulose), Fibercon (SmartFiber derived from cellulose), and FiberChoice (inulin). Psyllium husk and guar gum are soluble fibers. Consider keeping a food journal and tracking how much fiber you eat in a typical day. Use the fiber content chart in this handout as a guide to meeting your high fiber goal or check with www.NAL.[place]da.gov/fnic for additional information on the dietary fiber content of food. Fiber Content of Common Foods Food Category Food Serving Size Total Fiber (grams) Soluble Fiber (grams) Starches, Grains, Starchy vegetables Breads Bagel-whole wheat Light white/wheat Nirmala-whole wheat Pumpernickel Whole wheat [place] 3 1/2 inches 2 slices 7 inches slice slice slice 3 1 4 3 2 2 1 trace 1 1 trace 1 Cereals Bran flakes Cheerios Oatmeal Fiber One All Bran Kashi Heart to Heart 3/4 cup 1 1/4 cup 1 cup cooked 1/2 cup 2/3 cup 3/4 cup 5 4 4 14 13 5 trace 1 2 1 1 1 Grains Barley Brown rice Pasta-whole wheat Quinoa Lentil pasta Edamame pasta 1/2 cup cooked 1/2 cup 1/2 cup cooked 1/2 cup cooked 1/2 cup cooked 4 2 3 2 17 22 1 trace 1 1 2 3 Legumes and starchy vegetables Garbanzo beans Kidney beans Lentils Potato (with skin) Potatoes, sweet Squash (winter) Green peas, cooked De Dios beans [place], cooked 1/2 cup 1/2 cup 1/2 cup 1 medium 1/2 cup 1/2 cup 1/2 cup 1/2 cup 1/2 cup 4 6 5 3 4 3 4 7 2 1 3 1 1 2 2 1 3 trace Nuts and Seeds Almonds Peanuts Prentiss seeds Walnuts Flaxseed(ground) Hernandez Seeds Hemp Seeds 1/4 cup 1/4 cup 1/4 cup 1/4 cup 1/8 c or 2tbsp 1/8 c or 2tbsp 1/8 c or 2tbsp 3 3 3 2 4 10 2 1 1 1 trace 2 7 1 Fruits Apple with skin Banana Blueberries Grapefruit [place] Pear with skin Prunes Strawberries 1 medium 1 medium 1 cup 1/2 cup 1 medium 1 medium 3 1 cup 3 2 2 1 3 4 2 4 1 1 trace 1 2 2 1 1 Vegetables, non-starchy Broccoli Graham sprouts Cabbage-green Carrot Cauliflower Green beans Kale Spinach Squash (zucchini) 1/2 cup 1/2 cup 1 cup, fresh 1/2 cup, cooked 1/2 cup, cooked 1/2 cup 1/2 cup 1/2 cup 1/2 cup 3 4 2 2 1 2 3 2 1 1 2 1 1 trace 1 1 1 1 How to read a food label Food labels are standardized by the U.[place]. government's National Labeling and Education Act (NLEA). Nutrition labels and an ingredient list are required on most foods, so that you can make the best selection for a healthy lifestyle. Review the food label below. Determine the total amount of fiber in this product or ask your registered dietitian or healthcare provider to show you how to read food labels and apply the information to your personal needs. In order for a product to be labeled high fiber, it must contain 5 grams or more of dietary fiber per serving. References US Department of Agriculture. 4422-2526 Dietary Guidelines for Americans Accessed 07/13/2015. documented in this encounter [facility] 12-09-2023 Note HNO ID: [id number] Author: NAHUN GUSTAFSON MD Service: ? Author Type: Physician Type: Progress Notes Filed: 12/09/2023 14:31 Note Text: Nahun Gustafson M.D. Colon AND Rectal Surgery [address] [facility], [address] [place] [address] SUBJECTIVE Gerald Staley is a 63 year old White male with anal pain and bleeding, abdominal pain HPI The patient was referred by Dr. Yakov Etienne for my consultation regarding anal pain and bleeding. My final recommendations will be communicated back to the requesting physician by way of shared Medical record or letter to requesting physician via electronic or [place] mail. The patient is a pleasant 63-year-old male who has had several years of intermittent symptoms including a blood per rectum and anal discomfort. He also notes for the last couple of months some epigastric discomfort. When he has a bowel movement, he will usually leave after this and typically has pain during the bowel movement which is fairly sharp/uncomfortable sensation. He has never had any hemorrhoid surgeries before and had a colonoscopy in 2022 which did demonstrate enlarged internal hemorrhoids. He denies constipation but does have slightly looser stools. He also denies diarrhea or incontinence. Review of Systems Constitutional: Negative for chills, fever and weight loss. HENT: Negative for congestion, ear pain, hearing loss, sinus pain and sore throat. Eyes: Negative for blurred vision, double vision and pain. Respiratory: Negative for cough, shortness of breath and wheezing. Cardiovascular: Negative for chest pain, palpitations and leg swelling. Gastrointestinal: Positive for blood in stool. Negative for abdominal pain, constipation, diarrhea, heartburn, nausea and vomiting. Genitourinary: Positive for frequency and urgency. Negative for dysuria. Musculoskeletal: Positive for back pain and neck pain. Negative for joint pain. Skin: Negative for itching and rash. Neurological: Negative for dizziness, weakness and headaches. Endo/Heme/Allergies: Negative for environmental allergies. Does not bruise/bleed easily. Psychiatric/Behavioral: Negative for depression and memory loss. The patient is not nervous/anxious and does not have insomnia. PAST MEDICAL HISTORY Diagnosis Date Abnormal EKG 04/23/2017 inf [place] age undetermined Acute pulmonary embolism without acute cor pulmonale (HCC) Adenomatous colon polyp Anxiety Aorta disorder (HCC) Bipolar 2 disorder (HCC) Chicken pox Colon polyps Depression ED (erectile dysfunction) Headache HTN (hypertension) Hypogonadism male 04/25/2010 Hypothyroidism Myofascial pain dysfunction syndrome Obesity Osteoarthritis of multiple joints Pulmonary embolism (HCC) Rectal bleed Shingles Shoulder [...] HX Right 1987 eyelid TONSILLECTOMY HX Childhood Social History Tobacco Use Smoking status: Never Smokeless tobacco: Never Vaping Use Vaping status: Never Used Substance Use Topics Alcohol use: Yes Alcohol/week: 6.0 standard drinks of alcohol Types: 6 Cans of Beer (12oz) per week Comment: 12 pack a week Drug use: Not Currently Comment: no longer using. FAMILY HISTORY Problem Relation Age of Onset Diabetes Mother Hypertension Mother Arthritis Mother Breast Cancer Mother Dementia Mother Cancer Father throat Asthma No Family History Colon Cancer No Family History The ROS, medical, surgical, family, and social history were reviewed by Nahun Gustafson MD ALLERGIES Allergen Reactions Bakari Inhibitors Cough Darvocet A500 [Prop* GI Upset Current Outpatient Medications Medication Sig losartan (COZAAR) 100 mg tablet Take 1 tablet by mouth once daily. triamterene-hydroCHLOROthiazide (MAXZIDE-25MG) 37.5-25 mg per tablet Take 1 tablet by mouth once daily. hydrocortisone (ANUSOL-HC) 2.5 % rectal cream by RECTAL route two times a day as needed. (Patient not taking: Reported on 12/09/2023) diclofenac (VOLTAREN) 1 % topical gel Apply 4 g to affected area four (more content not included)... [facility] 12-09-2023 History of Present illness Narrative Images from the original note were not included. Nahun Gustafson M.D. Colon & Rectal Surgery [address] [facility], [address] [place] [address] SUBJECTIVE Gerald Staley is a 63 year old White male with anal pain and bleeding, abdominal pain HPI The patient was referred by Dr. Yakov Etienne for my consultation regarding anal pain and bleeding. My final recommendations will be communicated back to the requesting physician by way of shared Medical record or letter to requesting physician via electronic or [place] mail. The patient is a pleasant 63-year-old male who has had several years of intermittent symptoms including a blood per rectum and anal discomfort. He also notes for the last couple of months some epigastric discomfort. When he has a bowel movement, he will usually leave after this and typically has pain during the bowel movement which is fairly sharp/uncomfortable sensation. He has never had any hemorrhoid surgeries before and had a colonoscopy in 2022 which did demonstrate enlarged internal hemorrhoids. He denies constipation but does have slightly looser stools. He also denies diarrhea or incontinence. Review of Systems Constitutional: Negative for chills, fever and weight loss. HENT: Negative for congestion, ear pain, hearing loss, sinus pain and sore throat. Eyes: Negative for blurred vision, double vision and pain. Respiratory: Negative for cough, shortness of breath and wheezing. Cardiovascular: Negative for chest pain, palpitations and leg swelling. Gastrointestinal: Positive for blood in stool. Negative for abdominal pain, constipation, diarrhea, heartburn, nausea and vomiting. Genitourinary: Positive for frequency and urgency. Negative for dysuria. Musculoskeletal: Positive for back pain and neck pain. Negative for joint pain. Skin: Negative for itching and rash. Neurological: Negative for dizziness, weakness and headaches. Endo/Heme/Allergies: Negative for environmental allergies. Does not bruise/bleed easily. Psychiatric/Behavioral: Negative for depression and memory loss. The patient is not nervous/anxious and does not have insomnia. PAST MEDICAL HISTORY Diagnosis Date Abnormal EKG 04/23/2017 inf [place] age undetermined Acute pulmonary embolism without acute cor pulmonale (HCC) Adenomatous colon polyp Anxiety Aorta disorder (HCC) Bipolar 2 disorder (HCC) Chicken pox Colon polyps Depression ED (erectile dysfunction) Headache HTN (hypertension) Hypogonadism male 04/25/2010 Hypothyroidism Myofascial pain dysfunction syndrome Obesity Osteoarthritis of multiple joints Pulmonary embolism (HCC) Rectal bleed Shingles Shoulder [...] HX Right 1987 eyelid TONSILLECTOMY HX Childhood Social History Tobacco Use Smoking status: Never Smokeless tobacco: Never Vaping Use Vaping status: Never Used Substance Use Topics Alcohol use: Yes Alcohol/week: 6.0 standard drinks of alcohol Types: 6 Cans of Beer (12oz) per week Comment: 12 pack a week Drug use: Not Currently Comment: no longer using. FAMILY HISTORY Problem Relation Age of Onset Diabetes Mother Hypertension Mother Arthritis Mother Breast Cancer Mother Dementia Mother Cancer Father throat Asthma No Family History Colon Cancer No Family History The ROS, medical, surgical, family, and social history were reviewed by Nahun Gustafson MD ALLERGIES Allergen Reactions Bakari Inhibitors Cough Darvocet A500 [Prop* GI Upset Current Outpatient Medications Medication Sig losartan (COZAAR) 100 mg tablet Take 1 tablet by mouth once daily. triamterene-hydroCHLOROthiazide (MAXZIDE-25MG) 37.5-25 mg per tablet Take 1 tablet by mouth once daily. hydrocortisone (ANUSOL-HC) 2.5 % rectal cream by RECTAL route two times a day as needed. (Patient not taking: Reported on 12/09/2023) diclofenac (VOLTAREN) 1 % topical gel Apply 4 g to affected area four times daily as needed (for pain). As Directed. (Patient not taking: Reported on 12/09/2023) No current facility-administered medications for this visit. OBJECTIVE BP 138/89 (BP Site: Left Arm, BP Position: Sitting, BP Cuff Size: Regular Adult) Pulse 65 Ht 164.5 cm (5' 4.75") Wt 88 kg (194 lb) BMI 32.53 kg/m BMI 32.53 kg/(m^2) Physical Exam Constitutional: General: He is not in acute distress. Appearance: Normal appearance. He is not ill-appearing. Cardiovascular: Rate and Rhythm: Normal rate and regular rhythm. Heart sounds: No murmur heard. No friction rub. No gallop. Pulmonary: Effort: Pulmonary effort is normal. No respiratory distress. Breath sounds: Normal breath sounds. No wheezing or rales. Abdominal: General: There is no distension. Palpations: Abdomen is soft. There is no hepatomegaly. Tenderness: There is no abdominal tenderness. Musculoskeletal: General: No deformity. Normal range of motion. Skin: General: Skin is warm and dry. Findings: No rash. Neurological: Mental Status: He is alert and oriented to person, place, and time. Gait: Gait normal. Psychiatric: Mood and Affect: Mood normal. Judgment: Judgment normal. Perineum: Anoscopy: The patient was placed in left lateral position. On external exam there are enlarged external hemorrhoids in all 3 tridents without thrombosis, no prolapsing mucosa On digital rectal exam with a lubricated finger there is normal tone, appropriate relaxation of the levator with Valsalva and no tenderness and palpation of the levator, no palpable masses After digital exam, the lubricated scope was easily inserted to 7 cm. Moderately enlarged hemorrhoids in all 3 tridents, and in the posterior anal canal a small posterior fissure ~ 5 mm is found where he does localize tenderness Nahun Gustafson MD 2:26 PM 10/23/24 Hemoglobin (g/dL) Date Value 11/30/2023 17.1 05/29/2020 16.3 Hematocrit (%) Date Value 11/30/2023 51.3 05/29/2020 48.4 WBC (k/uL) Date Value 11/30/2023 7.35 05/29/2020 6.31 Platelet Count (k/uL) Date Value 11/30/2023 221 05/29/2020 205 Creatinine Date Value Ref Range Status 11/30/2023 1.17 0.73 - 1.22 mg/dL Final AST Date Value Ref Range Status 11/30/2023 17 14 - 40 U/L Final ALT Date Value Ref Range Status 11/30/2023 25 10 - 54 U/L Final Bilirubin, Total (mg/dL) Date Value 11/30/2023 0.8 Bilirubin, Direct (mg/dL) Date Value 03/03/2022 <0.2 WBC (k/uL) Date Value 11/30/2023 7.35 RBC (m/uL) Date Value 11/30/2023 5.73 %DIG,%DBS Plan ASSESSMENT/PLAN: 1. Anal fissure - ICD9: 565.0, ICD10: K60.2 (primary diagnosis) A small fissure was found on exam and this is what he localizes tenderness and I do think this is the primary issue. We discussed different options for treatment of this including nifedipine ointment with fiber supplementation versus lateral internal sphincterotomy. He does not have any incontinence issues and I think overall surgery has the highest success rate given the chronicity of symptoms . After discussing both options he is interested to go forward with surgery. 2. Internal and external hemorrhoids without complication - ICD9: 455.0, 455.3, ICD10: K64.4, K64.8 While he does have enlarged hemorrhoids, most of his pain and symptoms seem to be coming from the fissure. This also may relate to his fecal urgency although his urinary urgency I do not think is directly related but he may have some underlying pelvic floor dysfunction. He is point feel that since he is neurologist from [place]. The we will see after addressing the fissure if there are residual symptoms that need further management but I would like him to stay on fiber in the future. INFORMED CONSENT Gerald Staley Medical Record: [id number] Date: 12/09/2023 Procedure: Lateral internal sphincterotomy The risks, benefits and anticipated outcomes of the procedure, the risks and benefits of the alternatives to the procedure and the roles and tasks of the personnel to be involved were discussed with the patient and the patient consents to the procedure and agrees to proceed. I verify that I personally obtained Gerald Staley's consent. Nahun Gustafson MD Dept of [facility] SURGERY DEPARTMENT Follow up: Return for Surgery. Nahun Gustafson M.D. Please Note: This office note has been created using [employer], a speech recognition software program, and may contain errors including punctuation, grammar, spelling, gender, and inappropriate words or phrases that pertain to the sytem. documented in this encounter [facility] 11-30-2023 History of Present illness Narrative Radiology Service Progress Note PATIENT NAME: Gerald Staley DATE OF SERVICE: November 30, 2023 TIME: 9:34 AM PATIENT IDENTITY VERIFICATION COMPLETED USING TWO (2) IDENTIFIERS: Name and Date of confirmed by patient verbally. FALL SCREENING: Has the patient had 2 falls in the last year or 1 fall with injury or currently using an Ambulatory Assistive Device (Walker, Cane, Wheelchair, Crutches, etc.)? No PATIENT GENDER DATA: Male PATIENT RELEVANT IMPLANT DATA REVIEWED: Yes PATIENT PRESENTS WITH AN IMPLANTABLE OR ATTACHED MORTGAGE PROFESSIONAL: No RADIOLOGY DEPARTMENT: Ultrasound PERIPHERAL IV DATA: Not applicable SIGNED BY: Lisset Heller RDMS, RVT November 30, 2023 9:34 AM documented in this encounter [facility] 11-30-2023 Note HNO ID: [id number] Author: LISSET HELLER RT(R) Service: ? Author Type: Technologist Type: Progress Notes Filed: 11/30/2023 09:34 Note Text: Radiology Service Progress Note PATIENT NAME: Gerald Staley DATE OF SERVICE: November 30, 2023 TIME: 9:34 AM PATIENT IDENTITY VERIFICATION COMPLETED USING TWO (2) IDENTIFIERS: Name and Date of confirmed by patient verbally. FALL SCREENING: Has the patient had 2 falls in the last year or 1 fall with injury or currently using an Ambulatory Assistive Device (Walker, Cane, Wheelchair, Crutches, etc.)? No PATIENT GENDER DATA: Male PATIENT RELEVANT IMPLANT DATA REVIEWED: Yes PATIENT PRESENTS WITH AN IMPLANTABLE OR ATTACHED MORTGAGE PROFESSIONAL: No RADIOLOGY DEPARTMENT: Ultrasound PERIPHERAL IV DATA: Not applicable SIGNED BY: Lisset Heller RDMS, RVT November 30, 2023 9:34 AM [facility] 11-25-2023 Instructions Gia Ventura PA-C - 11/25/2023 10:46 AM EDT Images from the original note were not included. Gastroesophageal Reflux Disease (GERD) Heartburn is a burning sensation in the center of your chest that often occurs after you eat, bend over, exercise, and sometimes at night when you are lying down. Approximately one in 10 adults has heartburn at least once a week and one in three monthly. Some women experience heartburn almost daily as a result of increased pressure on the abdomen and hormonal changes. Despite its name, heartburn has nothing to do with your heart. Heartburn symptoms indicate a condition called gastroesophageal reflux disease, or GERD. This fact sheet offers some tips on how to relieve heartburn caused by this condition. What is GERD? When you swallow, food passes down your throat and through your esophagus to your stomach. A muscle called the lower esophageal sphincter controls the opening between the esophagus and the stomach. The muscle remains tightly closed except when you swallow food. When this muscle fails to close, the acid-containing contents of the stomach can travel back up into the esophagus. This backward movement is called reflux. When stomach acid enters the lower part of the esophagus, it can produce a burning sensation, commonly referred to as heartburn. Several factors might explain why this reflux action occurs and might offer some clues for relief. The most important are: The position of your body after eating (An upright posture helps prevent reflux.) The size of the meal (Smaller meals reduce reflux.) The nature of foods you consume (Certain substances that irritate the esophagus or weaken the sphincter can cause reflux.) How is GERD treated? To treat GERD, we recommend the following: Raise the head of your bed by six inches to allow gravity to help keep the stomach's contents in the stomach. (Do not use piles of pillows because this puts your body into a bent position that actually aggravates the condition by increasing pressure on the abdomen.) Eat meals at least three to four hours before lying down, and avoid bedtime snacks. Eat moderate portions of food and smaller meals. Maintain a healthy weight to eliminate unnecessary intra-abdominal pressure caused by extra pounds. Limit consumption of fatty foods, chocolate, peppermint, coffee, tea, luiz, and alcohol - all of which relax the lower esophageal sphincter. Also, avoid tomatoes and citrus fruits or juices, which contribute additional acid that can irritate the esophagus. Give up smoking, which also relaxes the lower esophageal sphincter. Wear loose belts and clothing. What if my GERD and heartburn persist? Many people will get relief from heartburn, and the pressure that goes with esophageal reflux, by following the tips above. Lvng-xaj-sbwjikb liquid antacids can also help in treating occasional heartburn. If your symptoms persist, do not respond to treatment, or occur often, you need to see a doctor for testing and treatment. A visual examination of the esophagus, known as an endoscopy, might be necessary. Sometimes this test shows that the lining of the esophagus is severely inflamed and irritated by stomach acid. This condition, known as esophagitis, might lead to bleeding and difficulty in swallowing. Medical treatment for this condition might be necessary. This usually involves blocking acid production in the stomach. Cosd-cpm-jpnmgqg medicines, such as Tums , Rolaids , Maalox , Zantac , Tagamet , Prilosec, ,Pepcid , and Axid , can generally relieve esophageal reflux symptoms. Patients with more severe symptoms or those who have been using antacids for more than two weeks should contact their doctors, who can prescribe medicines to control or eliminate acid, such as H2-receptor antagonists and proton pump inhibitors. Only a few people need surgery to correct the disorder. documented in this encounter [facility] 11-25-2023 Note HNO ID: [id number] Author: GIA VENTURA PA-C Service: ? Author Type: Physician Professor Of Mechanical Engineering Type: Progress Notes Filed: 11/25/2023 10:48 Note Text: CHIEF COMPLAINT: Patient presents with: Rectal Bleeding: Rectal bleeding on and off since he had his first colonoscopy. Sometimes bleeding last for days other times for weeks. HPI Gerald Staley is a 63 year old male here today for Rectal Bleeding (Rectal bleeding on and off since he had his first colonoscopy. Sometimes bleeding last for days other times for weeks.). Seen last for h/o anal bleeding. Seen by Dr. Etienne with recs to see [facility] for potential hemorrhoidal banding. Has f/u with [facility] this month to discuss management options for hemorrhoids. Referred back to GI to discuss potential EGD. Pt admits to progressive issues with epigastric pain. H/O relief with course of Prilosec. Bms are daily, loose to watery, increased urgency, intermittent anal bleeding/tenesmus/straining with BMs. Includes diarrhea has been very progressive over the past few mos. Denies N/V, weight loss, NSAID usage. Colon 2022 Impression: - One 10 mm polyp in the distal ascending colon, removed with a hot snare. Resected and retrieved. - Diverticulosis in the sigmoid colon and in the descending colon. - External hemorrhoids. Component FINAL DIAGNOSIS A. Colon, ascending, polyp, biopsy: - Tubular adenoma. Current Outpatient Medications Medication Sig lamoTRIgine (LAMICTAL) 150 mg tablet Take by mouth. losartan (COZAAR) 100 mg tablet Take 1 tablet by mouth once daily. triamterene-hydroCHLOROthiazide (MAXZIDE-25MG) 37.5-25 mg per tablet Take 1 tablet by mouth once daily. methocarbamol (ROBAXIN-750) 750 mg tablet Take 1 tablet by mouth three times a day as needed. QUEtiapine XR (SEROQUEL XR) 150 mg Tb24 Take by mouth. (Patient not taking: Reported on 10/05/2023) gabapentin (NEURONTIN) 300 mg capsule Take by mouth. apixaban (ELIQUIS) 5 mg tab(s) Take by mouth. (Patient not taking: Reported on 10/05/2023) diclofenac (VOLTAREN) 1 % topical gel Apply 4 g to affected area four times daily as needed (for pain). As Directed. naloxone 4 mg/actuation nasal spray (NARCAN) No current facility-administered medications for this visit. ALLERGIES Allergen Reactions Bakari Inhibitors Cough Darvocet A500 [Prop* GI Upset Social History Tobacco Use Smoking status: Never Smokeless tobacco: Never Vaping Use Vaping status: Never Used Substance Use Topics Alcohol use: Yes Alcohol/week: 6.0 standard drinks of alcohol Types: 6 Cans of Beer (12oz) per week Comment: 12 pack a week Drug use: Not Currently Comment: no longer using. PAST MEDICAL HISTORY Diagnosis Date Abnormal EKG 04/23/2017 inf [place] age undetermined Acute pulmonary embolism without acute cor pulmonale (HCC) Adenomatous colon polyp Anxiety Aorta disorder (HCC) Bipolar 2 disorder (HCC) Chicken pox Colon polyps Depression ED (erectile dysfunction) Headache HTN (hypertension) Hypogonadism male 04/25/2010 Hypothyroidism Myofascial pain dysfunction syndrome Obesity Osteoarthritis of multiple joints Pulmonary embolism (HCC) Rectal bleed Shingles Shoulder [...] Colon Cancer No Family History REVIEW OF SYSTEMS Review of Systems Gastrointestinal: Positive for rectal pain. All other systems reviewed and are negative. PHYSICAL EXAM BP 116/84 Pulse (!) 54 Ht 167.6 cm (5' 6") Wt 86.6 kg (191 lb) BMI 30.83 kg/m? Physical Exam Constitutional: General: He is not in acute distress. Appearance: Normal appearance. He is normal weight. He is not ill-appearing, toxic-appearing or diaphoretic. HENT: Head: Normocephalic and atraumatic. Nose: Nose normal. Eyes: General: No scleral icterus. Right eye: No discharge. Lef (more content not included)... [facility] 11-25-2023 History of Present illness Narrative CHIEF COMPLAINT: Patient presents with: Rectal Bleeding: Rectal bleeding on and off since he had his first colonoscopy. Sometimes bleeding last for days other times for weeks. HPI Gerald Staley is a 63 year old male here today for Rectal Bleeding (Rectal bleeding on and off since he had his first colonoscopy. Sometimes bleeding last for days other times for weeks.). Seen last for h/o anal bleeding. Seen by Dr. Etienne with recs to see [facility] for potential hemorrhoidal banding. Has f/u with [facility] this month to discuss management options for hemorrhoids. Referred back to GI to discuss potential EGD. Pt admits to progressive issues with epigastric pain. H/O relief with course of Prilosec. Bms are daily, loose to watery, increased urgency, intermittent anal bleeding/tenesmus/straining with BMs. Includes diarrhea has been very progressive over the past few mos. Denies N/V, weight loss, NSAID usage. Colon 2022 Impression: - One 10 mm polyp in the distal ascending colon, removed with a hot snare. Resected and retrieved. - Diverticulosis in the sigmoid colon and in the descending colon. - External hemorrhoids. Component FINAL DIAGNOSIS A. Colon, ascending, polyp, biopsy: - Tubular adenoma. Current Outpatient Medications Medication Sig lamoTRIgine (LAMICTAL) 150 mg tablet Take by mouth. losartan (COZAAR) 100 mg tablet Take 1 tablet by mouth once daily. triamterene-hydroCHLOROthiazide (MAXZIDE-25MG) 37.5-25 mg per tablet Take 1 tablet by mouth once daily. methocarbamol (ROBAXIN-750) 750 mg tablet Take 1 tablet by mouth three times a day as needed. QUEtiapine XR (SEROQUEL XR) 150 mg Tb24 Take by mouth. (Patient not taking: Reported on 10/05/2023) gabapentin (NEURONTIN) 300 mg capsule Take by mouth. apixaban (ELIQUIS) 5 mg tab(s) Take by mouth. (Patient not taking: Reported on 10/05/2023) diclofenac (VOLTAREN) 1 % topical gel Apply 4 g to affected area four times daily as needed (for pain). As Directed. naloxone 4 mg/actuation nasal spray (NARCAN) No current facility-administered medications for this visit. ALLERGIES Allergen Reactions Bakari Inhibitors Cough Darvocet A500 [Prop* GI Upset Social History Tobacco Use Smoking status: Never Smokeless tobacco: Never Vaping Use Vaping status: Never Used Substance Use Topics Alcohol use: Yes Alcohol/week: 6.0 standard drinks of alcohol Types: 6 Cans of Beer (12oz) per week Comment: 12 pack a week Drug use: Not Currently Comment: no longer using. PAST MEDICAL HISTORY Diagnosis Date Abnormal EKG 04/23/2017 inf [place] age undetermined Acute pulmonary embolism without acute cor pulmonale (HCC) Adenomatous colon polyp Anxiety Aorta disorder (HCC) Bipolar 2 disorder (HCC) Chicken pox Colon polyps Depression ED (erectile dysfunction) Headache HTN (hypertension) Hypogonadism male 04/25/2010 Hypothyroidism Myofascial pain dysfunction syndrome Obesity Osteoarthritis of multiple joints Pulmonary embolism (HCC) Rectal bleed Shingles Shoulder [...] Colon Cancer No Family History REVIEW OF SYSTEMS Review of Systems Gastrointestinal: Positive for rectal pain. All other systems reviewed and are negative. PHYSICAL EXAM BP 116/84 Pulse (!) 54 Ht 167.6 cm (5' 6") Wt 86.6 kg (191 lb) BMI 30.83 kg/m Physical Exam Constitutional: General: He is [...] No tenderness. Abdominal: General: Abdomen is flat. There is distension. Palpations: Abdomen is soft. There is no mass. Tenderness: There is no abdominal tenderness. There is no right CVA tenderness, left CVA tenderness, guarding or rebound. Hernia: No hernia is present. Comments: Hypoactive bowel sounds Musculoskeletal: General: Normal range of motion. Cervical back: Normal range of motion and neck supple. Skin: General: Skin is warm and dry. Neurological: General: No focal deficit present. Mental Status: He is alert and oriented to person, place, and time. Psychiatric: Mood and Affect: Mood normal. Behavior: Behavior normal. Assessment/Plan (R10.11, R10.12) Bilateral upper abdominal pain (primary encounter diagnosis) (R19.7) Diarrhea, unspecified type (Z86.0100) History of colonic polyps (K64.4) External hemorrhoids 1. Bilateral upper abdominal pain - EGD DIAGNOSTIC; Future - US ABD RIGHT UPPER QUADRANT; Future - COMPLETE BLOOD COUNT AND DIFFERENTIAL; Future - COMPREHENSIVE METABOLIC PANEL; Future - LIPASE; Future - EGD to r/o PUD, H. Pylori, Celiac - Check basic labs - RUQ US to r/o biliary disease - Pt wants to wait on restarting Prilosec until repeat EGD. Provided edu handout on gastritis precautions 2. Diarrhea, unspecified type - C. DIFFICILE PCR - EXPANDED STOOL GASTROINTESTINAL PANEL BY PCR - PANC ELASTASE, FECAL - CALPROTECTIN,FECAL - Stool studies to r/o ID, EPI - KUB to r/o overflow - Avoid antidiarrheals 3. History of colonic polyps - Due for repeat 2025 4. External hemorrhoids - Anusol suppositories prescribed by surgery not covered by insurance, sent in Anusol cream as alternative - Has f/u with [facility] this month to address h/o hemorrhoids. Advised to exercise caution with hemorrhoid intervention. Pt notes improvement in bleeding for the past month but has h/o recurrences in anal bleeding "for years" Recommended to please call office/go to ER if fever, chills, chest pain, SOB, diarrhea, nausea, emesis, worsening abdominal pain, dehydration occurs I spent a total of 25 minutes on the date of the service which included preparing to see the patient, [id number] patient care, completing clinical documentation, obtaining and/or reviewing separately obtained history, performing a medically appropriate examination, counseling and educating the patient/family/caregiver, ordering medications, tests, or procedures, communicating with other HCPs (not separately reported), independently interpreting results (not separately reported), communicating results to the patient/family/caregiver, and care coordination (not separately reported). Gia Ventura PA-C November 25, 2023 10:39 AM documented in this encounter [facility] 10-09-2023 Telephone encounter Note Since patient clearly knows how to read mychart messages will send a mychart [facility] 10-09-2023 Miscellaneous Notes Since patient clearly knows how to read mychart messages will send a mychart Attempted to call pt, he did not answer, lmom to call the office Ileana Roa RN October 09, 2023 2:38 PM There are 2 scripts in for Sept, can you cancel them thru the computer or do I need to call pharmacy and cancel them, please advise Ileana Roa RN October 09, 2023 1:46 PM No further narcotics will be prescribed. He is not being truthful. We can see the [employer] message was Last read by Cecil W Luís at 9:30 PM on 10/08/2023. He can use whatever medications he has sparingly as he will not get any further prescriptions for either medication Gerald Staley presented to the office for his random pill count. Medication Name(s): ms singh 15 The correct pills were identified. Prescription fill date: 09/29 Current date: October 09, 2023 Expected quantity:20-21 Actual quantity:0 Discrepancy: yes Reason for the discrepancy if provided by the patient: I called pt today as per the message sent, pt told me he was here just needed to get into the building, pt now presents to the office about 40 min after the original call, he states he went to the other location, he did not know to come to the hospital, he apologized said he has great difficulties with reading/writing/spelling and possibly misunderstood the directions, knowing this I asked how he knew to come at all, he said Dr Metz office told him we had been trying to reach him via [employer], he said he didn't have a message but his wifes phone did and that's how he was notfied. He presented to the office today without the oxycodone, I asked him why he came with out the oxycodone, he said the problem was with the morphine and didn't think to bring oxycodone and again does not read well and apologized. I asked why he does not have any morphine left. He said he has a lot of pain. He said he is doing a lot of his own renovation work at his house because he can not afford a contractor, this leaves him with a lot of pain. He said his bottle says "1 as needed", I clarified with pt the the bottle says 1 per day as needed and the directions mean can take 1 per day if it is needed. He apologized and said that he did not understand the directions to mean that, pt state that he has been taking a morphine each time he takes an oxycodone. He states when he took the drug test he was out of the morphine because of this. I educated pt about taking medication safely, advised that meds should only be taken as prescribed and he again stated he did not realize that he was not taking them correctly. He said he has 2 pills in a pill organizer at home, I advised him that they are to be taken on 2 separate days, he verbalized understanding. Pt verbalized concern about his plan of care, he said he has a lot of pain, he said the oxycodone barely helps and is also the reason he thought he could use the morphine as he thought it state "as needed". Please advise Ileana Roa RN October 09, 2023 10:55 AM Radha Trimble LPN Called patient to discuss UDS results, no answer. Left message and sent mychart. UDS did not contain the prescribed Morphine, it did have the oxycodone. He needs to come in for a RPC no later than tomorrow. Please ask why the morphine was not in his system documented in this encounter [facility] 10-09-2023 Telephone encounter Note Attempted to call pt, he did not answer, lmom to call the office Ileana Roa RN October 09, 2023 2:38 PM [facility] 10-09-2023 Telephone encounter Note There are 2 scripts in for Sept, can you cancel them thru the computer or do I need to call pharmacy and cancel them, please advise Ileana Roa RN October 09, 2023 1:46 PM [facility] 10-09-2023 Telephone encounter Note No further narcotics will be prescribed. He is not being truthful. We can see the [employer] message was Last read by Cecil Staley at 9:30 PM on 10/08/2023. He can use whatever medications he has sparingly as he will not get any further prescriptions for either medication T [facility] 10-09-2023 Telephone encounter Note Gerald Staley presented to the office for his random pill count. Medication Name(s): ms singh 15 The correct pills were identified. Prescription fill date: 09/29 Current date: October 09, 2023 Expected quantity:20-21 Actual quantity:0 Discrepancy: yes Reason for the discrepancy if provided by the patient: I called pt today as per the message sent, pt told me he was here just needed to get into the building, pt now presents to the office about 40 min after the original call, he states he went to the other location, he did not know to come to the hospital, he apologized said he has great difficulties with reading/writing/spelling and possibly misunderstood the directions, knowing this I asked how he knew to come at all, he said Dr Metz office told him we had been trying to reach him via [employer], he said he didn't have a message but his wifes phone did and that's how he was notfied. He presented to the office today without the oxycodone, I asked him why he came with out the oxycodone, he said the problem was with the morphine and didn't think to bring oxycodone and again does not read well and apologized. I asked why he does not have any morphine left. He said he has a lot of pain. He said he is doing a lot of his own renovation work at his house because he can not afford a contractor, this leaves him with a lot of pain. He said his bottle says "1 as needed", I clarified with pt the the bottle says 1 per day as needed and the directions mean can take 1 per day if it is needed. He apologized and said that he did not understand the directions to mean that, pt state that he has been taking a morphine each time he takes an oxycodone. He states when he took the drug test he was out of the morphine because of this. I educated pt about taking medication safely, advised that meds should only be taken as prescribed and he again stated he did not realize that he was not taking them correctly. He said he has 2 pills in a pill organizer at home, I advised him that they are to be taken on 2 separate days, he verbalized understanding. Pt verbalized concern about his plan of care, he said he has a lot of pain, he said the oxycodone barely helps and is also the reason he thought he could use the morphine as he thought it state "as needed". Please advise Ileana Roa RN October 09, 2023 10:55 AM Radha Trimble LPN [facility] 10-08-2023 Telephone encounter Note Called the patient and left a voice message asking the patient to call the office back to schedule for the next available appointment. The patient is being referred for Rectal bleeding [K62.5] Internal hemorrhoids [K64.8] Jackson Wagner [facility] 10-08-2023 Miscellaneous Notes Called the patient and left a voice message asking the patient to call the office back to schedule for the next available appointment. The patient is being referred for Rectal bleeding [K62.5] Internal hemorrhoids [K64.8] Jackson Wagner documented in this encounter [facility] 10-07-2023 Telephone encounter Note Called patient to discuss UDS results, no answer. Left message and sent mychart. UDS did not contain the prescribed Morphine, it did have the oxycodone. He needs to come in for a RPC no later than tomorrow. Please ask why the morphine was not in his system [facility] 10-05-2023 Note HNO ID: [id number] Author: YAKOV ETIENNE MD Service: ? Author Type: Physician Type: Progress Notes Filed: 10/05/2023 13:52 Note Text: HISTORY AND PHYSICAL Gerald Man Luís 1960 REFERRING PHYSICIAN: Errol Cary MD CHIEF COMPLAINT: Consult (Abd pain) HPI: The patient is a 63 year old male with a complaint of abdominal bloating epigastric discomfort. And rectal bleeding. Patient over the last week is noticed 4 days straight of some painless rectal bleeding. I had actually seen him back in July of last year for the same thing but at that time it was painful he was treated with suppositories and subsequently improved. He had a previous colonoscopy done back in May 2022. Had a few polyps noted at that time as well as internal hemorrhoids on retroflexion. Abdominal bloating is mostly in the epigastric slightly to the left area but more of a bandlike structure in the upper abdomen. He has no nausea or vomiting with this has not noticed any diarrhea changes. He cannot associate any particular foods that make this worse. He has had an upper scope back in 2019. This did not reveal any signs of H. pylori. . The patient is being seen by me today at the request of Dr. Errol Cary MD for my opinion and advice regarding Epigastric pain (primary encounter diagnosis) Rectal bleeding Internal hemorrhoids Abdominal bloating . PAST MEDICAL HISTORY 04/23/2017: Abnormal EKG Comment: inf [place] age undetermined No date: Acute pulmonary embolism without acute cor pulmonale (HCC) No date: Adenomatous colon polyp No date: Anxiety No date: Aorta disorder (HCC) No date: Bipolar 2 disorder (HCC) No date: Chicken pox No date: Colon polyps No date: Depression No date: ED (erectile dysfunction) No date: Headache No date: HTN (hypertension) 04/25/2010: Hypogonadism male No date: Hypothyroidism No date: Myofascial pain dysfunction syndrome No date: Obesity No date: Osteoarthritis of multiple joints No date: Pulmonary embolism (HCC) No date: Rectal bleed No date: Shingles No date: Shoulder pain Comment: pain management. PAST SURGICAL HISTORY 06/09/2022: COLONOSCOPY Comment: Tubular Adenoma age 40: COLONOSCOPY FLX DX W/COLLJ SPEC WHEN PFRMD Comment: Colonoscopy 06/04/2010: COLONOSCOPY FLX DX W/COLLJ SPEC WHEN PFRMD Comment: Colonoscopy 05/25/2018: COLONOSCOPY FLX DX W/COLLJ SPEC WHEN PFRMD Comment: Multiple Fragments of Tubular Adenoma, Diverticulosis 06/27/2020: COLONOSCOPY GEN ANES Comment: Two 4 to 7 mm polyps (adenomatous and hyperplastic ) 05/30/2016: COLSC FLX W/RMVL OF TUMOR POLYP LESION SNARE TQ Comment: adenomatous polyp - small - 5 year follow up 05/25/2018: ESOPHAGOGASTRODUODENOSCOPY TRANSORAL DIAGNOSTIC Comment: Duodenitis, Gastritis ~ 2015: FOOT SURGERY HX; Right 10/2016: OPEN REPAIR OF ROTATOR CUFF ACUTE; Right Comment: Rotator cuff repair - Dr. Santamaria 03/21/2010: RECONSTRUCTION ROTATOR CUFF AVULSION CHRONIC; Left Comment: Dr. Stalin Clark 06/11/2016: RPR UMBILICAL HRNA 5 YRS/> REDUCIBLE Comment: simple 1987: SKIN GRAFT HX; Right Comment: eyelid Childhood: TONSILLECTOMY HX Current Outpatient Medications Medication Sig methocarbamol (ROBAXIN-750) 750 mg tablet Take 1 tablet by mouth three times a day as needed. morphine SR (MS CONTIN) 15 mg 12 hr tablet Take 1 tablet by mouth once daily as needed for pain for up to 30 days. for Pain Patient should start on September 30, 2023. [START ON 10/30/2023] morphine SR (MS CONTIN) 15 mg 12 hr tablet Take 1 tablet by mouth once daily as needed for pain for up to 30 days. for Pain Patient should start on October 30, 2023. oxyCODONE (ROXICODONE) 15 mg immediate release tablet Take 1 tablet by mouth every 8 hours as needed for pain for up to 30 days. Patient should start on September 30, 2023. [START ON 10/30/2023] oxyCODONE (ROXICODONE) 15 mg immediate release tablet Take 1 tablet by mouth every 8 hours as needed for pain for up to 30 days. Patient should start on October 30, 2023. lamoTRIgine (LAMICTAL) 150 mg tablet Take by mouth. gabapentin (NEURONTIN) 300 mg capsule Take by mouth. losartan (COZAAR) 100 mg tablet Take 1 tablet by mouth once daily. triamterene-hydroCHLOROthiazide (MAXZIDE-25MG) 37.5-25 mg per tablet Take 1 tablet by mouth once daily. diclofenac (VOLTAREN) 1 % topical gel Apply 4 g to affected area four times daily as needed (for pain). As Directed. naloxone 4 mg/actuation nasal spray (NARCAN) QUEtiapine XR (SEROQUEL XR) 150 mg Tb24 Take by mouth. (Patient not taking: Reported on 10/05/2023) apixaban (ELIQUIS) 5 mg tab(s) Take by mouth. (Patient not taking: Reported on 10/05/2023) No current facility-administered medications for this visit. ALLERGIES: Bakari Inhibitors and Darvocet A500 [Propoxyphene N-Acetaminophen] PERSONAL HISTORY: Social History Tobacco Use Smoking status: Never Smokeless tobacco: Never Vaping Use Vaping status: Never Used (more content not included)... [facility] 10-05-2023 History of Present illness Narrative HISTORY AND PHYSICAL Gerald Man Luís 1960 REFERRING PHYSICIAN: Errol Cary MD CHIEF COMPLAINT: Consult (Abd pain) HPI: The patient is a 63 year old male with a complaint of abdominal bloating epigastric discomfort. And rectal bleeding. Patient over the last week is noticed 4 days straight of some painless rectal bleeding. I had actually seen him back in July of last year for the same thing but at that time it was painful he was treated with suppositories and subsequently improved. He had a previous colonoscopy done back in May 2022. Had a few polyps noted at that time as well as internal hemorrhoids on retroflexion. Abdominal bloating is mostly in the epigastric slightly to the left area but more of a bandlike structure in the upper abdomen. He has no nausea or vomiting with this has not noticed any diarrhea changes. He cannot associate any particular foods that make this worse. He has had an upper scope back in 2019. This did not reveal any signs of H. pylori. . The patient is being seen by me today at the request of Dr. Errol Cary MD for my opinion and advice regarding Epigastric pain (primary encounter diagnosis) Rectal bleeding Internal hemorrhoids Abdominal bloating . PAST MEDICAL HISTORY 04/23/2017: Abnormal EKG Comment: inf [place] age undetermined No date: Acute pulmonary embolism without acute cor pulmonale (HCC) No date: Adenomatous colon polyp No date: Anxiety No date: Aorta disorder (HCC) No date: Bipolar 2 disorder (HCC) No date: Chicken pox No date: Colon polyps No date: Depression No date: ED (erectile dysfunction) No date: Headache No date: HTN (hypertension) 04/25/2010: Hypogonadism male No date: Hypothyroidism No date: Myofascial pain dysfunction syndrome No date: Obesity No date: Osteoarthritis of multiple joints No date: Pulmonary embolism (HCC) No date: Rectal bleed No date: Shingles No date: Shoulder pain Comment: pain management. PAST SURGICAL HISTORY 06/09/2022: COLONOSCOPY Comment: Tubular Adenoma age 40: COLONOSCOPY FLX DX W/COLLJ SPEC WHEN PFRMD Comment: Colonoscopy 06/04/2010: COLONOSCOPY FLX DX W/COLLJ SPEC WHEN PFRMD Comment: Colonoscopy 05/25/2018: COLONOSCOPY FLX DX W/COLLJ SPEC WHEN PFRMD Comment: Multiple Fragments of Tubular Adenoma, Diverticulosis 06/27/2020: COLONOSCOPY GEN ANES Comment: Two 4 to 7 mm polyps (adenomatous and hyperplastic ) 05/30/2016: COLSC FLX W/RMVL OF TUMOR POLYP LESION SNARE TQ Comment: adenomatous polyp - small - 5 year follow up 05/25/2018: ESOPHAGOGASTRODUODENOSCOPY TRANSORAL DIAGNOSTIC Comment: Duodenitis, Gastritis ~ 2015: FOOT SURGERY HX; Right 10/2016: OPEN REPAIR OF ROTATOR CUFF ACUTE; Right Comment: Rotator cuff repair - Dr. Santamaria 03/21/2010: RECONSTRUCTION ROTATOR CUFF AVULSION CHRONIC; Left Comment: Dr. Stalin Clark 06/11/2016: RPR UMBILICAL HRNA 5 YRS/> REDUCIBLE Comment: simple 1987: SKIN GRAFT HX; Right Comment: eyelid Childhood: TONSILLECTOMY HX Current Outpatient Medications Medication Sig methocarbamol (ROBAXIN-750) 750 mg tablet Take 1 tablet by mouth three times a day as needed. morphine SR (MS CONTIN) 15 mg 12 hr tablet Take 1 tablet by mouth once daily as needed for pain for up to 30 days. for Pain Patient should start on September 30, 2023. [START ON 10/30/2023] morphine SR (MS CONTIN) 15 mg 12 hr tablet Take 1 tablet by mouth once daily as needed for pain for up to 30 days. for Pain Patient should start on October 30, 2023. oxyCODONE (ROXICODONE) 15 mg immediate release tablet Take 1 tablet by mouth every 8 hours as needed for pain for up to 30 days. Patient should start on September 30, 2023. [START ON 10/30/2023] oxyCODONE (ROXICODONE) 15 mg immediate release tablet Take 1 tablet by mouth every 8 hours as needed for pain for up to 30 days. Patient should start on October 30, 2023. lamoTRIgine (LAMICTAL) 150 mg tablet Take by mouth. gabapentin (NEURONTIN) 300 mg capsule Take by mouth. losartan (COZAAR) 100 mg tablet Take 1 tablet by mouth once daily. triamterene-hydroCHLOROthiazide (MAXZIDE-25MG) 37.5-25 mg per tablet Take 1 tablet by mouth once daily. diclofenac (VOLTAREN) 1 % topical gel Apply 4 g to affected area four times daily as needed (for pain). As Directed. naloxone 4 mg/actuation nasal spray (NARCAN) QUEtiapine XR (SEROQUEL XR) 150 mg Tb24 Take by mouth. (Patient not taking: Reported on 10/05/2023) apixaban (ELIQUIS) 5 mg tab(s) Take by mouth. (Patient not taking: Reported on 10/05/2023) No current facility-administered medications for this visit. ALLERGIES: Bakari Inhibitors and Darvocet A500 [Propoxyphene N-Acetaminophen] PERSONAL HISTORY: Social History Tobacco Use Smoking status: Never Smokeless tobacco: Never Vaping Use Vaping status: Never Used Substance Use Topics Alcohol use: Yes Alcohol/week: [...] nurse and reviewed by ca Nursing Notes: Ashely Coleman RN 10/05/2023 1:43 PM Signed REVIEW OF SYSTEMS: General: The patient NOTES fatigue, denies weight loss, denies weight gain, denies feeling hot, and denies feelings of cold. Eyes: The patient denies glaucoma, denies eye injury/surgery, does not wear glasses or contacts. Ear/Nose/Throat: The patient denies allergies, denies hayfever, denies ear infections, and denies bloody noses. Cardiovascular: The patient denies chest pain, denies heart disease, NOTES high blood pressure,denies cardiac stent, denies prior heart attack, denies irregular heart beat, denies high cholesterol, denies poor circulation, NOTES heart failure, other cardiac issues, denies claudication, denies cold feet, denies peripheral arterial stent. Respiratory: The patient denies tuberculosis, denies pneumonia, denies frequent cough, NOTES pulmonary embolism, denies shortness of breath, and denies coughing up blood. Gastrointestinal: The patient denies difficulty swallowing, denies acid reflux, denies ulcers, denies vomiting, denies jaundice/hepatitis, denies gallbladder problems, denies black or tarry stools, denies hemorrhoids, NOTES bleeding from rectum, denies diverticulitis, [...] patient denies thyroid disorders, denies diabetes, and NOTES hormonal problems. Hematologic: The patient denies a history of bruising, denies bleeding, and denies anemia, denies blood clots. Infections: The patient denies a history of measles and mumps, denies rheumatic fever, and denies sexually transmitted diseases. Musculoskeletal: The patient denies back pain/injury, denies back problems, denies sciatica, denies knee/foot trouble, NOTES arthritis, or denies gout. When was patient's last Mammogram screening? N/A Last Colonoscopy: 06/09/2022 Ashley Coleman RN PHYSICAL EXAMINATION: General: The patient is 63 year old male, well nourished, well hydrated in no acute distress. The patient is oriented to time, place, and person. VITALS: Blood pressure 130/90, pulse (!) 56, temperature 36.4 C (97.6 F), height 167.6 cm (5' 6"), weight 85.5 kg (188 lb 9.6 oz), SpO2 98%. HEENT: Normal cephalic, ataumatic, pupils are equally [...] Noted RADIOLOGIC STUDIES: As Noted Assessment IMPRESSION: Epigastric pain (primary encounter diagnosis) Rectal bleeding Internal hemorrhoids Abdominal bloating PLAN: I am going to get him started on some Anusol suppositories. I am also going to get him a consultation with Dr. Nahun Gustafson and Nikita/Jefe for possible hemorrhoidal banding. I do not think he needs another colonoscopy at this time. In addition I am in to get him back to see his GI team so that they can evaluate him for a possible upper endoscopy. Diagnoses: (R10.13) Epigastric pain (primary encounter diagnosis) (K62.5) Rectal bleeding (K64.8) Internal hemorrhoids (R14.0) Abdominal bloating My findings have been communicated to Dr. Errol Cary MD via shared medical record. This note will be forwarded to Dr. Errol Cary MD. Return to Clinic: The patient is instructed to follow-up with me as needed. Yakov Etienne III, MD documented in this encounter [facility] 10-05-2023 Nurse Note REVIEW OF SYSTEMS: General: The patient NOTES fatigue, denies weight loss, denies weight gain, denies feeling hot, and denies feelings of cold. Eyes: The patient denies glaucoma, denies eye injury/surgery, does not wear glasses or contacts. Ear/Nose/Throat: The patient denies allergies, denies hayfever, denies ear infections, and denies bloody noses. Cardiovascular: The patient denies chest pain, denies heart disease, NOTES high blood pressure,denies cardiac stent, denies prior heart attack, denies irregular heart beat, denies high cholesterol, denies poor circulation, NOTES heart failure, other cardiac issues, denies claudication, denies cold feet, denies peripheral arterial stent. Respiratory: The patient denies tuberculosis, denies pneumonia, denies frequent cough, NOTES pulmonary embolism, denies shortness of breath, and denies coughing up blood. Gastrointestinal: The patient denies difficulty swallowing, denies acid reflux, denies ulcers, denies vomiting, denies jaundice/hepatitis, denies gallbladder problems, denies black or tarry stools, denies hemorrhoids, NOTES bleeding from rectum, denies diverticulitis, [...] patient denies thyroid disorders, denies diabetes, and NOTES hormonal problems. Hematologic: The patient denies a history of bruising, denies bleeding, and denies anemia, denies blood clots. Infections: The patient denies a history of measles and mumps, denies rheumatic fever, and denies sexually transmitted diseases. Musculoskeletal: The patient denies back pain/injury, denies back problems, denies sciatica, denies knee/foot trouble, NOTES arthritis, or denies gout. When was patient's last Mammogram screening? N/A Last Colonoscopy: 06/09/2022 Ashley Coleman RN [facility] 10-05-2023 Nurse Note REVIEW OF SYSTEMS: General: The patient NOTES fatigue, denies weight loss, denies weight gain, denies feeling hot, and denies feelings of cold. Eyes: The patient denies glaucoma, denies eye injury/surgery, does not wear glasses or contacts. Ear/Nose/Throat: The patient denies allergies, denies hayfever, denies ear infections, and denies bloody noses. Cardiovascular: The patient denies chest pain, denies heart disease, NOTES high blood pressure,denies cardiac stent, denies prior heart attack, denies irregular heart beat, denies high cholesterol, denies poor circulation, NOTES heart failure, other cardiac issues, denies claudication, denies cold feet, denies peripheral arterial stent. Respiratory: The patient denies tuberculosis, denies pneumonia, denies frequent cough, NOTES pulmonary embolism, denies shortness of breath, and denies coughing up blood. Gastrointestinal: The patient denies difficulty swallowing, denies acid reflux, denies ulcers, denies vomiting, denies jaundice/hepatitis, denies gallbladder problems, denies black or tarry stools, denies hemorrhoids, NOTES bleeding from rectum, denies diverticulitis, [...] patient denies thyroid disorders, denies diabetes, and NOTES hormonal problems. Hematologic: The patient denies a history of bruising, denies bleeding, and denies anemia, denies blood clots. Infections: The patient denies a history of measles and mumps, denies rheumatic fever, and denies sexually transmitted diseases. Musculoskeletal: The patient denies back pain/injury, denies back problems, denies sciatica, denies knee/foot trouble, NOTES arthritis, or denies gout. When was patient's last Mammogram screening? N/A Last Colonoscopy: 06/09/2022 Ashley Coleman RN documented in this encounter [facility] 09-29-2023 History of Present illness Narrative Chief Complaint: Pain History of Present Illness: Gerald Staley is a 63 year old year old male being seen at [facility] for a evaluation and/or management of his chronic pain. The patient was last seen on 09/14/2023. He states that since the last visit symptoms have been stable. His medical history has not changed and he denies any hospital stays or ER visits. Pain level: 8/10 Location: neck, pain in both shoulders - [...] Opioid agreement effective date: 03/13/2023 Last UDS: Ordered. 03/20/2023 UDS CONSISTENT 11/10/22 UDS Consistent PC 03/13/23 Summary Report Date Value Ref Range Status [...] Pain Functional Assessment Tools Pain Disability Index: 07/27/2023 09/23/2023 Pain Disability Index Family/Home Responsibilities: This category includes chores or duties performed around the house (e.g. yard work), errands or favors for other family members (e.g. driving the children to school) 8 7 Recreation: This category includes hobbies, sports, and other similar leisure time activities 9 7 Social Activity: This category refers to activities which involve participation with friends and acquaintances, other than family members. It includes parties, theater, concerts, dinning out, and other social functions 9 7 Occupation: This category refers to activities that are a part of or directly related to ones' job. This includes non-paying jobs as well, such as that of a housewife or volunteer worker 9 8 Sexual Behavior: This category refers to the frequency and quality of one's sex life 9 8 Self Care: This category includes activities which involve personal maintenance and independent daily living (e.g. taking a shower, driving, getting dress, etc) 7 7 Life Support Activity: This category refers to basic-life supporting behaviors such as eating, sleeping, and breathing 2 7 PDI Score 53 51 Pain Enjoyment of Life and General Activity Scale (0-10): PEG: A Three-Item Scale Assessing Pain Intensity and Interference What number best describes your pain on average in the past week?: 8 (09/23/2023 11:24 AM) What number best describes how, during the past week, pain has interfered with your enjoyment of life?: 7 (09/23/2023 11:24 AM) What number best describes how, during the past week, pain has interfered with your general activity?: 7 (09/23/2023 11:24 AM) Screener and Opioid Assessment for Patients with Pain (SOAPP)-5 SOAPP QUESTIONS How often do you have mood swings?: 2 - Sometimes (09/29/2023 6:51 AM) How often do you smoke a cigarette within an hour after you wake up?: 0 - Never (09/29/2023 6:51 AM) How often have you taken medication other than the way it was prescribed?: 1 - Seldom (09/29/2023 6:51 AM) How often have you used illegal drugs (for example, marijuana, cocaine, etc.) in the past five years?: 2 - Sometimes (09/29/2023 6:51 AM) How often, in your lifetime, have you had legal problems or been arrested?: 1 - Seldom (09/29/2023 6:51 AM) Sum of Questions (> or = 7 is positive): 6 (09/29/2023 6:51 AM) REVIEW OF SYSTEMS: GENERAL: No weight loss or fevers RESPIRATORY: Negative for cough CARDIOVASCULAR: Negative for chest pain GI: No nausea, vomiting, or diarrhea. MUSCULOSKELETAL: joint pain or swelling, back pain, and muscle pain PAST MEDICAL HISTORY 04/23/2017: Abnormal EKG Comment: inf [place] age undetermined No date: Adenomatous colon polyp No date: Anxiety No date: Chicken pox No date: Colon polyps No date: Depression No date: ED (erectile dysfunction) No date: Headache No date: HTN (hypertension) 04/25/2010: Hypogonadism male No date: Pulmonary embolism (HCC) No date: Rectal bleed No date: Shingles No date: Shoulder pain Comment: pain management. PAST SURGICAL HISTORY 06/09/2022: COLONOSCOPY Comment: Tubular Adenoma age 40: COLONOSCOPY FLX DX W/COLLJ SPEC WHEN PFRMD Comment: Colonoscopy 06/04/2010: COLONOSCOPY FLX DX W/COLLJ SPEC WHEN PFRMD Comment: Colonoscopy 05/25/2018: COLONOSCOPY FLX DX W/COLLJ SPEC WHEN PFRMD Comment: Multiple Fragments of Tubular Adenoma, Diverticulosis 06/27/2020: COLONOSCOPY GEN ANES Comment: Two 4 to 7 mm polyps (adenomatous and hyperplastic ) 05/30/2016: COLSC FLX W/RMVL OF TUMOR POLYP LESION SNARE TQ Comment: adenomatous polyp - small - 5 year follow up 05/25/2018: ESOPHAGOGASTRODUODENOSCOPY TRANSORAL DIAGNOSTIC Comment: Duodenitis, Gastritis ~ 2015: FOOT SURGERY HX; Right 10/2016: OPEN REPAIR OF ROTATOR CUFF ACUTE; Right Comment: Rotator cuff repair - Dr. Santamaria 03/21/2010: RECONSTRUCTION ROTATOR CUFF AVULSION CHRONIC; Left Comment: Dr. Stalin Clark 06/11/2016: RPR UMBILICAL HRNA 5 YRS/> REDUCIBLE Comment: simple 1986: SKIN GRAFT HX; Right Comment: eyelid Childhood: TONSILLECTOMY HX FAMILY HISTORY Problem Relation Age of Onset [...] 30 days. Do not start before August 01, 2023. oxyCODONE (ROXICODONE) 15 mg immediate release tablet Take 1 tablet by mouth every 8 hours as needed for pain for up to 30 days. Do not start before August 31, 2023. methocarbamol (ROBAXIN-750) 750 mg tablet Take 1 tablet by mouth three times a day as needed. morphine SR (MS CONTIN) 15 mg 12 hr tablet Take 1 tablet by mouth once daily as needed for pain for up to 30 days. for Pain Do not start before August 01, 2023. morphine SR (MS CONTIN) 15 mg 12 hr tablet Take 1 tablet by mouth once daily as needed for pain for up to 30 days. for Pain Do not start before August 31, 2023. QUEtiapine XR (SEROQUEL XR) 150 mg Tb24 Take by mouth. lamoTRIgine (LAMICTAL) 150 mg tablet Take by mouth. gabapentin (NEURONTIN) 300 mg capsule Take by mouth. apixaban (ELIQUIS) 5 mg tab(s) Take by mouth. losartan (COZAAR) 100 mg tablet Take 1 [...] infusion 30 mL/hr INTRAVENOUS CONTINUOUS PHYSICAL EXAMINATION: BP 151/97 (BP Site: Right Arm, BP Position: Sitting) Pulse (!) 54 Resp 20 Wt 84.8 kg (187 lb) SpO2 95% BMI 30.18 kg/m GENERAL: alert and appropriate, in no distress and well-hydrated, well nourished HEAD: normocephalic, no abnormality or lesion noted RESPIRATORY: breathing non-labored NEUROLOGIC: no obvious deficit MUSCULOSKELETAL: Cervical range of motion without restriction but complaints of tenderness with all motion. Negative cervical facet tenderness bilaterally. Negative Spurling sign bilaterally. Firm equal grasp bilaterally. 5/5 bilateral upper extremity muscle strength. ASSESSMENT: Patient is stable. Chronic pain is persistent. Medications are helping Gerald Staley to have an improved quality of life. Patient compliance with Opioid Contract: patient is compliant Encounter Diagnosis ICD-10-CM 1. 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 Osteoarthritis of both shoulders, unspecified osteoarthritis type M19.011 M19.012 4. Myofascial pain syndrome M79.18 5. Other cervical disc degeneration, unspecified cervical region M50.30 PLAN: Order UDS The patient understands the goal of our [...] therefore, the medications will be continued. Continue MS contin and oxycodone for btp. Continue methocarbamol He was started on this medication and has been maintained on it by Dr Ceballos and [employer]'s working with her. Encouraged to follow instructions of PCP and specialists He declines physical therapy for cervical spine pain. He is aware he will need to complete this before we will order MRI Order injection in left shoulder - last done right on 01/2022 with 60% relief for over 3 months, left side done on 07/21/23 with 60% relief Follow-up in 2 months Teo Kaminski APRN.WAREHOUSE DISTRIBUTION MANAGER documented in this encounter [facility] 09-29-2023 Note HNO ID: [id number] Author: TEO KAMINSKI APRN.WAREHOUSE DISTRIBUTION MANAGER Service: ? Author Type: Nurse Practitioner Type: Progress Notes Filed: 09/29/2023 07:09 Note Text: Chief Complaint: Pain History of Present Illness: Gerald Staley is a 63 year old year old male being seen at [facility] for a evaluation and/or management of his chronic pain. The patient was last seen on 09/14/2023. He states that since the last visit symptoms have been stable. His medical history has not changed and he denies any hospital stays or ER visits. Pain level: 8/10 Location: neck, pain in both shoulders - [...] Opioid agreement effective date: 03/13/2023 Last UDS: Ordered. 03/20/2023 UDS CONSISTENT 11/10/22 UDS Consistent PC 03/13/23 Summary Report Date Value Ref Range Status [...] Pain Functional Assessment Tools Pain Disability Index: 07/27/2023 09/23/2023 Pain Disability Index Family/Home Responsibilities: This category includes chores or duties performed around the house (e.g. yard work), errands or favors for other family members (e.g. driving the children to school) 8 7 Recreation: This category includes hobbies, sports, and other similar leisure time activities 9 7 Social Activity: This category refers to activities which involve participation with friends and acquaintances, other than family members. It includes parties, theater, concerts, dinning out, and other social functions 9 7 Occupation: This category refers to activities that are a part of or directly related to ones' job. This includes non-paying jobs as well, such as that of a housewife or volunteer worker 9 8 Sexual Behavior: This category refers to the frequency and quality of one's sex life 9 8 Self Care: This category includes activities which involve personal maintenance and independent daily living (e.g. taking a shower, driving, getting dress, etc) 7 7 Life Support Activity: This category refers to basic-life supporting behaviors such as eating, sleeping, and breathing 2 7 PDI Score 53 51 Pain Enjoyment of Life and General Activity Scale (0-10): PEG: A Three-Item Scale Assessing Pain Intensity and Interference What number best describes your pain on average in the past week?: 8 (09/23/2023 11:24 AM) What number best describes how, during the past week, pain has interfered with your en (more content not included)... [facility] 09-29-2023 Instructions Teo Kaminski APRN.CNP - 09/29/2023 6:42 AM EDT Order UDS Continue MS contin and oxycodone for btp. Continue methocarbamol He was started on this medication and has been maintained on it by Dr Ceballos and [employer]'s working with her. Continue care with PCP and specialists Encouraged to start PT for cervical spine pain. Once completed will order MRI Order injection in left shoulder - last done bilateral in 01/2022 with 60% relief for over 3 months Follow-up in 2 months documented in this encounter [facility] 09-25-2023 Telephone encounter Note Call placed to patient to inquire reason for visit on 10/04. Patient reason for visit states "follow up", pt hasn't been seen since 07/2022. If pt appointment is for hemmorhoids, an appointment needs moved to Dr Gutiérrez or Dr Hayden. Reason for visit is needed to ensure visit is scheduled with correct provider.Ashley Coleman RN [facility] 09-25-2023 Miscellaneous Notes Call placed to patient to inquire reason for visit on 10/04. Patient reason for visit states "follow up", pt hasn't been seen since 07/2022. If pt appointment is for hemmorhoids, an appointment needs moved to Dr Gutiérrez or Dr Hayden. Reason for visit is needed to ensure visit is scheduled with correct provider.Ashley Coleman RN documented in this encounter [facility] 07-28-2023 History of Present illness Narrative This video visit was performed via [employer] Video Visit. Patient consented to receive health care services via virtual visit for this encounter Provider Location: Non-[facility] Patient Location: Patient Home or Place of Residence I have communicated my name and active licensure. The patient's identity and physical location were verified at the time of this visit. Either the patient or their legal order entry representative has been informed of the risks and benefits of -- and alternatives to -- treatment through a remote evaluation and consents to proceed with the evaluation remotely. Chief Complaint: Pain History of Present Illness: Gerald Staley is a 63 year old year old male being seen at [facility] for a evaluation and/or management of his chronic pain. The patient was last seen virtually on 07/01/2023. He states that since the last visit symptoms have been stable. His medical history has not changed and he denies any hospital stays or ER visits. Pain level: 6-7/10 Location: neck, pain in both shoulders - [...] UDS: Reviewed - No inconsistencies noted. 03/20/2023 UDS CONSISTENT 11/10/22 UDS Consistent Summary Report [...] Pain Functional Assessment Tools Pain Disability Index: 06/25/2023 07/27/2023 Pain Disability Index Family/Home Responsibilities: This category includes chores or duties performed around the house (e.g. yard work), errands or favors for other family members (e.g. driving the children to school) 9 8 Recreation: This category includes hobbies, sports, and other similar leisure time activities 9 9 Social Activity: This category refers to activities which involve participation with friends and acquaintances, other than family members. It includes parties, theater, concerts, dinning out, and other social functions 9 9 Occupation: This category refers to activities that are a part of or directly related to ones' job. This includes non-paying jobs as well, such as that of a housewife or volunteer worker 9 9 Sexual Behavior: This category refers to the frequency and quality of one's sex life 9 9 Self Care: This category includes activities which involve personal maintenance and independent daily living (e.g. taking a shower, driving, getting dress, etc) 9 7 Life Support Activity: This category refers to basic-life supporting behaviors such as eating, sleeping, and breathing 9 2 PDI Score 63 53 Pain Enjoyment of Life and General Activity Scale (0-10): PEG: A Three-Item Scale Assessing Pain Intensity and Interference What number best describes your pain on average in the past week?: 7 (07/27/2023 8:51 PM) What number best describes how, during the past week, pain has interfered with your enjoyment of life?: 8 (07/27/2023 8:51 PM) What number best describes how, during the past week, pain has interfered with your general activity?: 8 (07/27/2023 8:51 PM) REVIEW OF SYSTEMS: GENERAL: No weight loss or fevers RESPIRATORY: Negative for cough CARDIOVASCULAR: Negative for chest pain GI: No nausea, vomiting, or diarrhea. MUSCULOSKELETAL: joint pain or swelling, back pain, and muscle pain PAST MEDICAL HISTORY Diagnosis Date Abnormal EKG 04/23/2017 inf [place] age undetermined Adenomatous colon polyp Anxiety Chicken [...] for Pain Do not start before July 02, 2023. oxyCODONE (ROXICODONE) 15 mg immediate release tablet Take 1 tablet by mouth every 8 hours as needed for pain for up to 30 days. Do not start before July 02, 2023. QUEtiapine XR (SEROQUEL XR) 150 mg Tb24 Take by mouth. lamoTRIgine (LAMICTAL) 150 mg tablet Take by mouth. gabapentin (NEURONTIN) 300 mg capsule Take by mouth. apixaban (ELIQUIS) 5 mg tab(s) Take by mouth. oxyCODONE (ROXICODONE) 15 mg immediate release tablet Take 1 tablet by mouth every 8 hours as needed for pain for up to 30 days. morphine SR (MS CONTIN) 15 mg 12 hr tablet Take 1 tablet by mouth once daily as needed for pain for up to 30 days. for Pain methocarbamol (ROBAXIN-750) 750 mg tablet Take 1 [...] ICD-10-CM 1. 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 Other cervical disc degeneration, unspecified cervical region M50.30 4. Osteoarthritis of both shoulders, unspecified osteoarthritis type M19.011 M19.012 5. Myofascial pain syndrome M79.18 PLAN: The patient understands the goal of [...] therefore, the medications will be continued. Continue MS contin and oxycodone for btp. Continue methocarbamol He was started on this medication and has been maintained on it by Dr Ceballos and [employer]'s working with her. Encouraged to follow instructions of PCP and specialists Encouraged to start PT for cervical spine pain. Once completed will order MRI Order injection in left shoulder - last done right on 01/2022 with 60% relief for over 3 months, left side done on 07/21/23 with 60% relief Follow-up in 2 months Teo Kaminski APRN.JADA documented in this encounter [facility] 07-28-2023 Note HNO ID: [id number] Author: TEO KAMINSKI APRN.CNP Service: ? Author Type: Nurse Practitioner Type: Progress Notes Filed: 07/28/2023 07:22 Note Text: This video visit was performed via [employer] Video Visit. Patient consented to receive health care services via virtual visit for this encounter Provider Location: Non[facility] Patient Location: Patient Home or Place of Residence I have communicated my name and active licensure. The patient's identity and physical location were verified at the time of this visit. Either the patient or their legal order entry representative has been informed of the risks and benefits of -- and alternatives to -- treatment through a remote evaluation and consents to proceed with the evaluation remotely. Chief Complaint: Pain History of Present Illness: Gerald Staley is a 63 year old year old male being seen at [facility] for a evaluation and/or management of his chronic pain. The patient was last seen virtually on 07/01/2023. He states that since the last visit symptoms have been stable. His medical history has not changed and he denies any hospital stays or ER visits. Pain level: 6-7/10 Location: neck, pain in both shoulders - [...] UDS: Reviewed - No inconsistencies noted. 03/20/2023 UDS CONSISTENT 11/10/22 UDS Consistent Summary Report [...] Pain Functional Assessment Tools Pain Disability Index: 06/25/2023 07/27/2023 Pain Disability Index Family/Home Responsibilities: This category includes chores or duties performed around the house (e.g. yard work), errands or favors for other family members (e.g. driving the children to school) 9 8 Recreation: This category includes hobbies, sports, and other similar leisure time activities 9 9 Social Activity: This category refers to activities which involve participation with friends and acquaintances, other than family members. It includes parties, theater, concerts, dinning out, and other social functions 9 9 Occupation: This category refers to activities that are a part of or directly related to ones' job. This includes non-paying jobs as well, such as that of a housewife or volunteer worker 9 9 Sexual Behavior: This category refers to the frequency and quality of one (more content not included)... [facility] 07-28-2023 Instructions Teo Kaminski APRN.WAREHOUSE DISTRIBUTION MANAGER - 07/28/2023 6:56 AM EDT Continue MS contin and oxycodone for btp. Continue methocarbamol He was started on this medication and has been maintained on it by Dr Ceballos and [employer]'s working with her. He is compliant with the pain management agreement and there have been no signs of medication misuse, abuse or diversion. Encouraged to follow instructions of PCP and specialists Encouraged to start PT for cervical spine pain. Once completed will order MRI Order injection in left shoulder - last done bilateral in 01/2022 with 60% relief for over 3 months Follow-up in 2 months documented in this encounter [facility] 07-28-2023 Telephone encounter Note Items addressed in this encounter: MyChart Encounter Able to close encounter. Dennise Breaux MA July 28, 2023 5:24 AM 5:24 AM [facility] 07-28-2023 Miscellaneous Notes Items addressed in this encounter: MyChart Encounter Able to close encounter. Dennise Breaux MA July 28, 2023 5:24 AM 5:24 AM documented in this encounter [facility] 07-28-2023 Telephone encounter Note Items addressed in this encounter: Virtual Visit Pre Check In Able to close encounter. Dennise Breaux MA July 28, 2023 5:23 AM 5:23 AM [facility] 07-28-2023 Miscellaneous Notes Items addressed in this encounter: Virtual Visit Pre Check In Able to close encounter. Dennise Breaux MA July 28, 2023 5:23 AM 5:23 AM documented in this encounter [facility] 07-01-2023 History of Present illness Narrative This video visit was performed via [employer] Video Visit. Patient consented to receive health care services via virtual visit for this encounter Provider Location: Non-[facility] Patient Location: Patient Home or Place of Residence I have communicated my name and active licensure. The patient's identity and physical location were verified at the time of this visit. Either the patient or their legal order entry representative has been informed of the risks and benefits of -- and alternatives to -- treatment through a remote evaluation and consents to proceed with the evaluation remotely. Chief Complaint: Pain History of Present Illness: Gerald Staley is a 63 year old year old male being seen at [facility] for a evaluation and/or management of his chronic pain. The patient was last seen virtually on 06/02/2023. He states that since the last visit symptoms have been stable. His medical history has not changed and he denies any hospital stays or ER visits. Pain level: 8/10 Location: neck, pain in both shoulders - [...] Pain Functional Assessment Tools Pain Disability Index: 06/01/2023 06/25/2023 Pain Disability Index Family/Home Responsibilities: This category includes chores or duties performed around the house (e.g. yard work), errands or favors for other family members (e.g. driving the children to school) 9 9 Recreation: This category includes hobbies, sports, and other similar leisure time activities 9 9 Social Activity: This category refers to activities which involve participation with friends and acquaintances, other than family members. It includes parties, theater, concerts, dinning out, and other social functions 9 9 Occupation: This category refers to activities that are a part of or directly related to ones' job. This includes non-paying jobs as well, such as that of a housewife or volunteer worker 9 9 Sexual Behavior: This category refers to the frequency and quality of one's sex life 9 9 Self Care: This category includes activities which involve personal maintenance and independent daily living (e.g. taking a shower, driving, getting dress, etc) 9 9 Life Support Activity: This category refers to basic-life supporting behaviors such as eating, sleeping, and breathing 9 9 PDI Score 63 63 Pain Enjoyment of Life and General Activity Scale (0-10): PEG: A Three-Item Scale Assessing Pain Intensity and Interference What number best describes your pain on average in the past week?: 7 (06/25/2023 12:12 PM) What number best describes how, during the past week, pain has interfered with your enjoyment of life?: 7 (06/25/2023 12:12 PM) What number best describes how, during the past week, pain has interfered with your general activity?: 7 (06/25/2023 12:12 PM) REVIEW OF SYSTEMS: GENERAL: No weight loss or fevers RESPIRATORY: Negative for cough CARDIOVASCULAR: Negative for chest pain GI: No nausea, vomiting, or diarrhea. MUSCULOSKELETAL: joint pain or swelling, back pain, and muscle pain PAST MEDICAL HISTORY Diagnosis Date Abnormal EKG 04/23/2017 inf [place] age undetermined Adenomatous colon polyp Anxiety Chicken [...] GI Upset Current Outpatient Medications Medication Sig QUEtiapine XR (SEROQUEL XR) 150 mg Tb24 Take by mouth. lamoTRIgine (LAMICTAL) 150 mg tablet Take by mouth. gabapentin (NEURONTIN) 300 mg capsule Take by mouth. apixaban (ELIQUIS) 5 mg tab(s) Take by mouth. oxyCODONE (ROXICODONE) 15 mg immediate release tablet Take 1 tablet by mouth every 8 hours as needed for pain for up to 30 days. morphine SR (MS CONTIN) 15 mg 12 hr tablet Take 1 tablet by mouth once daily as needed for pain for up to 30 days. for Pain methocarbamol (ROBAXIN-750) 750 mg tablet Take 1 tablet by mouth three times a day as needed. morphine SR (MS CONTIN) 15 mg 12 hr tablet Take 1 tablet by mouth once daily as needed for pain for up to 30 days. for Pain Do not start before May 03, 2023. oxyCODONE (ROXICODONE) 15 mg immediate release tablet Take 1 tablet by mouth every 8 hours as needed for pain for up to 30 days. Do not start before May 03, 2023. losartan (COZAAR) 100 mg tablet Take 1 [...] ICD-10-CM 1. 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 Other cervical disc degeneration, unspecified cervical region M50.30 4. Osteoarthritis of both shoulders, unspecified osteoarthritis type M19.011 M19.012 PLAN: The pain management agreement was reviewed [...] therefore, the medications will be continued. Continue MS contin and oxycodone for btp. Continue methocarbamol He was started on this medication and has been maintained on it by Dr Ceballos and [employer]'s working with her. Encouraged to follow instructions of PCP and specialists Encouraged to start PT for cervical spine pain. Once completed will order MRI Order injection in left shoulder - last done bilateral in 01/2022 with 60% relief for over 3 months Follow-up in 1 month Teo Kaminski APRN.CNP documented in this encounter [facility] 07-01-2023 Note HNO ID: [id number] Author: TEO KAMINSKI APRN.CNP Service: ? Author Type: Nurse Practitioner Type: Progress Notes Filed: 07/01/2023 07:20 Note Text: This video visit was performed via [employer] Video Visit. Patient consented to receive health care services via virtual visit for this encounter Provider Location: Non-[facility] Patient Location: Patient Home or Place of Residence I have communicated my name and active licensure. The patient's identity and physical location were verified at the time of this visit. Either the patient or their legal order entry representative has been informed of the risks and benefits of -- and alternatives to -- treatment through a remote evaluation and consents to proceed with the evaluation remotely. Chief Complaint: Pain History of Present Illness: Gerald Staley is a 63 year old year old male being seen at [facility] for a evaluation and/or management of his chronic pain. The patient was last seen virtually on 06/02/2023. He states that since the last visit symptoms have been stable. His medical history has not changed and he denies any hospital stays or ER visits. Pain level: 8/10 Location: neck, pain in both shoulders - [...] Pain Functional Assessment Tools Pain Disability Index: 06/01/2023 06/25/2023 Pain Disability Index Family/Home Responsibilities: This category includes chores or duties performed around the house (e.g. yard work), errands or favors for other family members (e.g. driving the children to school) 9 9 Recreation: This category includes hobbies, sports, and other similar leisure time activities 9 9 Social Activity: This category refers to activities which involve participation with friends and acquaintances, other than family members. It includes parties, theater, concerts, dinning out, and other social functions 9 9 Occupation: This category refers to activities that are a part of or directly related to ones' job. This includes non-paying jobs as well, such as that of a housewife or volunteer worker 9 9 Sexual Behavior: This category refers to the frequency and qual (more content not included)... [facility] 07-01-2023 Telephone encounter Note Items addressed in this encounter: MyChart Encounter Able to close encounter. Dennise Breaux MA July 01, 2023 5:31 AM 5:31 AM [facility] 07-01-2023 Miscellaneous Notes Items addressed in this encounter: MyChart Encounter Able to close encounter. Dennise Breaux MA July 01, 2023 5:31 AM 5:31 AM documented in this encounter [facility] 07-01-2023 Telephone encounter Note Items addressed in this encounter: Virtual Visit Pre Check In Able to close encounter. Dennise Breaux MA July 01, 2023 5:24 AM 5:24 AM [facility] 07-01-2023 Miscellaneous Notes Items addressed in this encounter: Virtual Visit Pre Check In Able to close encounter. Dennise Breaux MA July 01, 2023 5:24 AM 5:24 AM documented in this encounter [facility] 06-30-2023 Instructions Teo Kaminski APRN.CNP - 06/30/2023 1:48 PM EDT Continue MS contin and oxycodone for btp. Continue methocarbamol He was started on this medication and has been maintained on it by Dr Ceballos and [employer]'s working with her. He is compliant with the pain management agreement and there have been no signs of medication misuse, abuse or diversion. Encouraged to follow instructions of PCP and specialists Encouraged to start PT for cervical spine pain. Once completed will order MRI Order injection in left shoulder - last done bilateral in 01/2022 with 60% relief for over 3 months Follow-up in 1 month documented in this encounter [facility] 06-02-2023 History of Present illness Narrative This video visit was performed via [employer] Video Visit. Patient consented to receive health care services via virtual visit for this encounter Provider Location: Non-[facility] Patient Location: Patient Home or Place of Residence I have communicated my name and active licensure. The patient's identity and physical location were verified at the time of this visit. Either the patient or their legal order entry representative has been informed of the risks and benefits of -- and alternatives to -- treatment through a remote evaluation and consents to proceed with the evaluation remotely. Chief Complaint: Pain History of Present Illness: Gerald Staley is a 63 year old year old male being seen at [facility] for a evaluation and/or management of his chronic pain. The patient was last seen virtually on 04/01/2023. He states that since the last visit symptoms have been stable. He was seen in the Emergency Room because he thought he had a blood clot. Otherwise, his medical history has not changed and he denies any hospital stays or ER visits. Pain level: 8/10 Location: neck, pain in both shoulders - [...] Pain Functional Assessment Tools Pain Disability Index: 03/31/2023 06/01/2023 Pain Disability Index Family/Home Responsibilities: This category includes chores or duties performed around the house (e.g. yard work), errands or favors for other family members (e.g. driving the children to school) 7 9 Recreation: This category includes hobbies, sports, and other similar leisure time activities 7 9 Social Activity: This category refers to activities which involve participation with friends and acquaintances, other than family members. It includes parties, theater, concerts, dinning out, and other social functions 8 9 Occupation: This category refers to activities that are a part of or directly related to ones' job. This includes non-paying jobs as well, such as that of a housewife or volunteer worker 7 9 Sexual Behavior: This category refers to the frequency and quality of one's sex life 8 9 Self Care: This category includes activities which involve personal maintenance and independent daily living (e.g. taking a shower, driving, getting dress, etc) 3 9 Life Support Activity: This category refers to basic-life supporting behaviors such as eating, sleeping, and breathing 2 9 PDI Score 42 63 Pain Enjoyment of Life and General Activity Scale (0-10): PEG: A Three-Item Scale Assessing Pain Intensity and Interference What number best describes your pain on average in the past week?: 7 (06/01/2023 9:21 PM) What number best describes how, during the past week, pain has interfered with your enjoyment of life?: 10 - Completely interferes (06/01/2023 9:21 PM) What number best describes how, during the past week, pain has interfered with your general activity?: 10 - Completely interferes (06/01/2023 9:21 PM) REVIEW OF SYSTEMS: GENERAL: No weight loss or fevers RESPIRATORY: Negative for cough CARDIOVASCULAR: Negative for chest pain GI: No nausea, vomiting, or diarrhea. MUSCULOSKELETAL: joint pain or swelling, back pain, and muscle pain PAST MEDICAL HISTORY Diagnosis Date Abnormal EKG 04/23/2017 inf [place] age undetermined Adenomatous colon polyp Anxiety Chicken [...] GI Upset Current Outpatient Medications Medication Sig methocarbamol (ROBAXIN-750) 750 mg tablet Take 1 tablet by mouth three times a day as needed. oxyCODONE (ROXICODONE) 15 mg immediate release tablet Take 1 tablet by mouth every 8 hours as needed for pain for up to 30 days. Do not start before April 03, 2023. morphine SR (MS CONTIN) 15 mg 12 hr tablet Take 1 tablet by mouth once daily as needed for pain for up to 30 days. for Pain Do not start before April 03, 2023. morphine SR (MS CONTIN) 15 mg 12 hr tablet Take 1 tablet by mouth once daily as needed for pain for up to 30 days. for Pain Do not start before May 03, 2023. oxyCODONE (ROXICODONE) 15 mg immediate release tablet Take 1 tablet by mouth every 8 hours as needed for pain for up to 30 days. Do not start before May 03, 2023. losartan (COZAAR) 100 mg tablet Take 1 [...] ICD-10-CM 1. 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 Other cervical disc degeneration, unspecified cervical region M50.30 4. Osteoarthritis of both shoulders, unspecified osteoarthritis type M19.011 M19.012 5. Myofascial pain syndrome M79.18 6. Cervicalgia M54.2 PLAN: The pain management agreement was reviewed [...] therefore, the medications will be continued. Continue MS contin and oxycodone for btp. Continue methocarbamol He was started on this medication and has been maintained on it by Dr Ceballos and [employer]'s working with her. Encouraged to follow instructions of PCP and specialists Encouraged to start PT for cervical spine pain. Once completed will order MRI Follow-up in 1 month Teo Kaminski APRN.CNP documented in this encounter [facility] 06-02-2023 Note HNO ID: [id number] Author: TEO KAMINSKI APRN.CNP Service: ? Author Type: Nurse Practitioner Type: Progress Notes Filed: 06/02/2023 07:11 Note Text: This video visit was performed via [employer] Video Visit. Patient consented to receive health care services via virtual visit for this encounter Provider Location: Non-[facility] Patient Location: Patient Home or Place of Residence I have communicated my name and active licensure. The patient's identity and physical location were verified at the time of this visit. Either the patient or their legal order entry representative has been informed of the risks and benefits of -- and alternatives to -- treatment through a remote evaluation and consents to proceed with the evaluation remotely. Chief Complaint: Pain History of Present Illness: Gerald Staley is a 63 year old year old male being seen at [facility] for a evaluation and/or management of his chronic pain. The patient was last seen virtually on 04/01/2023. He states that since the last visit symptoms have been stable. He was seen in the Emergency Room because he thought he had a blood clot. Otherwise, his medical history has not changed and he denies any hospital stays or ER visits. Pain level: 8/10 Location: neck, pain in both shoulders - [...] Pain Functional Assessment Tools Pain Disability Index: 03/31/2023 06/01/2023 Pain Disability Index Family/Home Responsibilities: This category includes chores or duties performed around the house (e.g. yard work), errands or favors for other family members (e.g. driving the children to school) 7 9 Recreation: This category includes hobbies, sports, and other similar leisure time activities 7 9 Social Activity: This category refers to activities which involve participation with friends and acquaintances, other than family members. It includes parties, theater, concerts, dinning out, and other social functions 8 9 Occupation: This category refers to activities that are a part of or directly related to ones' job. This includes non-paying jobs as well, such as that of a housewi (more content not included)... [facility] 06-02-2023 Instructions Teo Kaminski APRN.CNP - 06/02/2023 6:30 AM EDT Continue MS contin and oxycodone for btp. Continue methocarbamol He was started on this medication and has been maintained on it by Dr Ceballos and [employer]'s working with her. He is compliant with the pain management agreement and there have been no signs of medication misuse, abuse or diversion. Encouraged to follow instructions of PCP and specialists Encouraged to start PT for cervical spine pain. Once completed will order MRI Follow-up in 1 month documented in this encounter [facility] 06-02-2023 Miscellaneous Notes Items addressed in this encounter: MyChart Encounter Able to close encounter. Dennise Breaux MA June 02, 2023 5:29 AM 5:29 AM documented in this encounter [facility] 06-02-2023 Miscellaneous Notes Items addressed in this encounter: Virtual Visit Pre Check In Able to close encounter. Dennise Breaux MA June 02, 2023 5:27 AM 5:27 AM documented in this encounter [facility] 04-30-2023 Miscellaneous Notes Items addressed in this encounter: MyChart Encounter Able to close encounter. Dennise Breaux MA April 30, 2023 10:10 AM 10:10 AM documented in this encounter [facility] 04-27-2023 Miscellaneous Notes The following approved medication requests have been transmitted electronically. Requested Prescriptions Signed Prescriptions Disp Refills methocarbamol (ROBAXIN-750) 750 mg tablet 90 tablet 1 Sig: Take 1 tablet by mouth three times a day as needed. Authorizing Provider: CINDY CRAMER Refused Prescriptions Disp Refills morphine SR (MS CONTIN) 15 mg 12 hr tablet 30 tablet 0 Sig: Take 1 tablet by mouth once daily as needed for pain for up to 30 days. for Pain Refused By: MARISA BALLESTEROS Reason for Refusal: Records indicate that there is a valid prescription at the pharmacy Cindy Cramer APRN.CNP Patient phones requesting refills as follows: Requested Prescriptions Pending Prescriptions Disp Refills methocarbamol (ROBAXIN-750) 750 mg tablet 90 tablet 1 Sig: Take 1 tablet by mouth three times a day as needed. Refused Prescriptions Disp Refills morphine SR (MS CONTIN) 15 mg 12 hr tablet 30 tablet 0 Sig: Take 1 tablet by mouth once daily as needed for pain for up to 30 days. for Pain Last UDS: 03/20/2023 3:53 PM EST UDS CONSISTENT 11/10/22 [...] provided. For clinical consultation, please call . PREGABALIN, URINE Date Value Ref Range Status 03/16/2023 Negative ug/mL Final Comment: This test was developed and its performance characteristics determined by [facility]. It has not been cleared or approved by the Food and Drug Administration. No results found for: "UQNOTE", "OPIATEPNMGT", "DRUGSCRPAIN" Urine Panel: No results found for: "UQCANN", "UQBNZL", "GIE3DQB", "UQAMPH", "UQMAMP", "UQBUPRE", "UQNORBUP", "UQMTHD", "UQEDDP", "UQTRAM", "UQDTRM", "UQFNTL", "UQNFTL", "UQCODE", "UQMORP", "UQDCDN", "UQHCOD", "UQOXYC", "UQHMOR", "UQOXYM", "UQCREA", "UQPH", "UQSPGR", "UQOXID", "UQSPQ" @FLOW([id number])@ Lab Results Component Value Date SUMM FINAL 03/16/2023 Summary Report (Summary) Date Value Ref Range [...] test is not intended to distinguish between dfamg-2-cwmhutfsbqwwttzbkccv, the predominant form of THC in most herbal or marijuana-based products, and lnygu-6-qvuywjlbpicaepipfyto. Morphine 1845 ng/mg creat Potential sources of [...] call . Last Opioid agreement effective date: 03/13/2023 Please review and advise. Marisa Ballesteros RN documented in this encounter [facility] 04-01-2023 Miscellaneous Notes Items addressed in this encounter: MyChart Encounter Able to close encounter. Dennise Breaux MA April 01, 2023 7:21 AM 7:21 AM documented in this encounter [facility] 04-01-2023 History of Present illness Narrative This video visit was performed via [employer] Video Visit. Patient consented to receive health care services via virtual visit for this encounter Provider Location: Non-[facility] Patient Location: Patient Home or Place of Residence I have communicated my name and active licensure. The patient's identity and physical location were verified at the time of this visit. Either the patient or their legal order entry representative has been informed of the risks and benefits of -- and alternatives to -- treatment through a remote evaluation and consents to proceed with the evaluation remotely. Chief Complaint: Pain History of Present Illness: Gerald Staley is a 62 year old year old male being seen at [facility] for a evaluation [...] HISTORY Diagnosis Date Abnormal EKG 04/23/2017 inf [place] age undetermined Adenomatous colon polyp Anxiety Chicken [...] ICD-10-CM 1. Other chronic pain G89.29 2. 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 [...] therefore, the medications will be continued. Continue MS contin and oxycodone for btp. Continue methocarbamol He was started on this medication and has been maintained on it by Dr Ceballos and [employer]'s working with her. Encouraged to follow instructions of PCP and specialists Encouraged to start PT for cervical spine pain. Once completed will order MRI Follow-up in 1 month Teo Kaminski APRN.CNP documented in this encounter [facility] 04-01-2023 Note HNO ID: [id number] Author: TEO KAMINSKI APRN.CNP Service: ? Author Type: Nurse Practitioner Type: Progress Notes Filed: 04/01/2023 07:30 Note Text: This video visit was performed via [employer] Video Visit. Patient consented to receive health care services via virtual visit for this encounter Provider Location: Non-[facility] Patient Location: Patient Home or Place of Residence I have communicated my name and active licensure. The patient's identity and physical location were verified at the time of this visit. Either the patient or their legal order entry representative has been informed of the risks and benefits of -- and alternatives to -- treatment through a remote evaluation and consents to proceed with the evaluation remotely. Chief Complaint: Pain History of Present Illness: Gerald Staley is a 62 year old year old male being seen at [facility] for a evaluation [...] the frequency and (more content not included)... [facility] 04-01-2023 Instructions Teo Kaminski APRN.CNP - 04/01/2023 7:00 AM EST Continue MS contin and oxycodone for btp. Continue methocarbamol He was started on this medication and has been maintained on it by Dr Ceballos and [employer]'s working with her. He is compliant with the pain management agreement and there have been no signs of medication misuse, abuse or diversion. Encouraged to follow instructions of PCP and specialists Encouraged to start PT for cervical spine pain. Once completed will order MRI Follow-up in 1 month documented in this encounter [facility] 04-01-2023 Miscellaneous Notes Items addressed in this encounter: MyChart Encounter Able to close encounter. Dennise Breaux MA April 01, 2023 5:29 AM 5:29 AM documented in this encounter [facility] 04-01-2023 Miscellaneous Notes Items addressed in this encounter: Virtual Visit Pre Check In Able to close encounter. Dennise Breaux MA April 01, 2023 5:27 AM 5:27 AM documented in this encounter [facility] 03-31-2023 Miscellaneous Notes Items addressed in this encounter: Health Maintenance Review Able to close encounter. Dennise Breaux MA March 31, 2023 2:56 PM 2:56 PM documented in this encounter [facility] 03-03-2023 Note HNO ID: [id number] Author: TEO KAMINSKI APRN.WAREHOUSE DISTRIBUTION MANAGER Service: ? Author Type: Nurse Practitioner Type: Progress Notes Filed: 03/13/2023 08:29 Note Text: This video visit was performed via Mediastream Video Visit. Patient consented to receive health care services via virtual visit for this encounter Provider Location: Non-[facility] Patient Location: Patient Home or Place of Residence I have communicated my name and active licensure. The patient's identity and physical location were verified at the time of this visit. Either the patient or their legal order entry representative has been informed of the risks and benefits of -- and alternatives to -- treatment through a remote evaluation and consents to proceed with the evaluation remotely. Chief Complaint: Pain History of Present Illness: Gerald Staley is a 62 year old year old male being seen at [facility] for a evaluation and/or management of his chronic pain. The patient was last seen virtually on 02/11/2023. He states that since the last visit symptoms have been stable. His medical history has not changed and he denies any hospital stays or ER visits. Pain level: 7-8 Location: neck, pain in both shoulders - [...] test is not intended to distinguish between siqgp-3-hmiovsuevjcjaikygfot, the predominant form of THC in most herbal or marijuana-based products, and pouzx-3-lkucwbfuinkyufxobuwe. Morphine 2217 ng/mg creat Normorphine 86 ng/mg [...] or duties perfor (more content not included)... [facility] 02-11-2023 Note HNO ID: [id number] Author: Teo Kaminski APRN.WAREHOUSE DISTRIBUTION MANAGER Service: ? Author Type: Nurse Practitioner Type: Progress Notes Filed: 02/11/2023 7:16 AM Note Text: This video visit was performed via Mediastream Video Visit. Patient consented to receive health care services via virtual visit for this encounter Provider Location: Non-[facility] Patient Location: Patient Home or Place of Residence Risks, benefits, and limitations of receiving care virtually were discussed with the patient. The patient expressed understanding and is willing to proceed. Chief Complaint: Pain History of Present Illness: Gerald Staley is a 62 year old year old male being seen at [facility] for a evaluation and/or management of his [...] test is not intended to distinguish between zapgx-4-tltehjqzzqwfxgukpmck, the predominant form of THC in most herbal or marijuana-based products, and dufrl-3-zxzppkxlsclokaiykchl. Morphine 2217 ng/mg creat Normorphine 86 ng/mg [...] sports, and o (more content not included)... [facility] 01-28-2023 Miscellaneous Notes Patient phones requesting refills [...] Last UDS: HE IS NO LONGER UNDER [facility]. ALL CLAIMS HAVE BEEN SETTLED. MAIN INSURANCE [...] test is not intended to distinguish between buotj-2-upbkzjvaqrvpbxebgkdo, the predominant form of THC in most herbal or marijuana-based products, and qjdbm-1-mwxqecvfedftnyhquktn. Morphine 2217 ng/mg creat Normorphine 86 ng/mg [...] provided. For clinical consultation, please call . @FLOW([id number])@ Lab Results Component Value Date SUMM FINAL [...] test is not intended to distinguish between einwz-0-mfwcsqlaxrpvifvptpfs, the predominant form of THC in most herbal or marijuana-based products, and urzvk-6-tlcwyvwpexgjmxhvzxck. Morphine 1845 ng/mg creat Potential sources of [...] effective date: 01/28/2022 Please review and advise. Marisa Ballesteros RN documented in this encounter [facility] 12-30-2022 Miscellaneous Notes The following approved medication [...] Last UDS: HE IS NO LONGER UNDER [facility]. ALL CLAIMS HAVE BEEN SETTLED. MAIN INSURANCE [...] test is not intended to distinguish between rbrew-3-dvvejoaksnhmoupstbzp, the predominant form of THC in most herbal or marijuana-based products, and cehnb-5-cxjhleshzsyromjxljll. Morphine 2217 ng/mg creat Normorphine 86 ng/mg [...] provided. For clinical consultation, please call . @FLOW([id number])@ Lab Results Component Value Date SUMM FINAL [...] test is not intended to distinguish between csbpd-9-wnemsjzbgiaqqanwsnrx, the predominant form of THC in most herbal or marijuana-based products, and lrzhj-1-mghvoxxxbngrfrvjhprz. Morphine 1845 ng/mg creat Potential sources of [...] Annabelle Green RN documented in this encounter [facility] 12-30-2022 Miscellaneous Notes The following approved medication [...] Last UDS: HE IS NO LONGER UNDER [facility]. ALL CLAIMS HAVE BEEN SETTLED. MAIN INSURANCE [...] test is not intended to distinguish between mposs-9-ndfhizneuypqfwduuqye, the predominant form of THC in most herbal or marijuana-based products, and cbhei-3-anytamtdaaqltihiqxzc. Morphine 2217 ng/mg creat Normorphine 86 ng/mg [...] provided. For clinical consultation, please call . @FLOW([id number])@ Lab Results Component Value Date SUMM FINAL [...] test is not intended to distinguish between vbypm-7-dcukdwfapitqctwcugbv, the predominant form of THC in most herbal or marijuana-based products, and msicu-3-moikilttslaxgctgwjix. Morphine 1845 ng/mg creat Potential sources of [...] Annabelle Green RN documented in this encounter [facility] 12-03-2022 Instructions Lauren Steen APRN.CNP - 12/03/2022 1:50 PM EDT Same medications. Get labwork. Schedule echo. Recheck in 6 months. documented in this encounter [facility] 12-03-2022 History of Present illness Narrative This [...] HISTORY Diagnosis Date Abnormal EKG 04/23/2017 inf [place] age undetermined Adenomatous colon polyp Anxiety Chicken [...] HX Right 1986 eyelid TONSILLECTOMY HX Childhood ALLERGIES Bakari Inhibitors [...] Lauren Steen APRN.JADA documented in this encounter [facility] 11-28-2022 Miscellaneous Notes The following approved medication requests have been transmitted electronically. Requested Prescriptions Signed Prescriptions Disp Refills morphine SR (MS CONTIN) 15 mg 12 hr tablet 30 tablet 0 Sig: Take 1 tablet by mouth once daily as needed for pain for up to 30 days. for Pain Do not start before December 04, 2022. Authorizing Provider: TEO KAMINSKI APRN.CNP Patient phones requesting refills as [...] test is not intended to distinguish between qaeri-3-jmlrzovulhzlkvvudkng, the predominant form of THC in most herbal or marijuana-based products, and ewkcq-3-pclzlkhrqkqzrtsftkxz. Morphine 2217 ng/mg creat Normorphine 86 ng/mg [...] provided. For clinical consultation, please call . @FLOW([id number])@ Lab Results Component Value Date SUMM FINAL [...] test is not intended to distinguish between ryjdk-7-zdzgzyphuqaklubuuncu, the predominant form of THC in most herbal or marijuana-based products, and uozjd-1-nbkwqywfyortuyivmqeg. Morphine 1845 ng/mg creat Potential sources of [...] call . Please review and advise. Annabelle Dierick, RN documented in this encounter [facility] 11-27-2022 Miscellaneous Notes Patient phones requesting refills [...] test is not intended to distinguish between urrua-0-vofzjzfavjjilkctptlb, the predominant form of THC in most herbal or marijuana-based products, and opsza-6-rblrjuovpjjopgfaddfk. Morphine 2217 ng/mg creat Normorphine 86 ng/mg [...] provided. For clinical consultation, please call . @FLOW([id number])@ Lab Results Component Value Date SUMM FINAL [...] test is not intended to distinguish between njltg-0-bxbxbcfpzglgyizlbomi, the predominant form of THC in most herbal or marijuana-based products, and iakdg-3-lmapnkckdauqwzierykl. Morphine 1845 ng/mg creat Potential sources of [...] Annabelle Green RN documented in this encounter [facility] 11-10-2022 History of Present illness Narrative Summary: Pain Management follow-up DATE: November 10, 2022 Chief Complaint: neck History of Present Illness: Gerald Staley is a 62 year old male being seen at [facility] for a evaluation and/or management of their chronic pain. The patient was last seen in the office on 08/04/2022 by Bill Foley NP, and the plan of care was as follows: Continue MS contin and oxycodone for btp. This helps patient perform ADL, interact with family and friends. OARRS reviewedd and consistent. UDS +THC but uses CBD Change lidocaine prilocaine cream to volatren gel Encouraged to follow instructions of PCP and specialists Encouraged to start PT for cervical spine pain to order MRI call [phone] Encouraged to complete cervical spine xray Followup [...] disability. He is active at home with band edger and gardening. He is taking the medications [...] test is not intended to distinguish between mluwz-6-hfvxjjqlfvdrijdstidi, the predominant form of THC in most herbal or marijuana-based products, and onqfs-5-xdzudbjpduirgaltqrrc. Morphine 8076 ng/mg creat Normorphine 234 ng/mg [...] test is not intended to distinguish between xxdaw-0-altfhvtyfishhgpiclpv, the predominant form of THC in most herbal or marijuana-based products, and wrekr-4-qdfaczdnsbagqwfyjcyu. Morphine 1845 ng/mg creat Potential sources of [...] HISTORY Diagnosis Date Abnormal EKG 04/23/2017 inf [place] age undetermined Adenomatous colon polyp Anxiety Chicken [...] this encounter was entered by Deb Davis, medical insurance coder for Dr. Allie Ceballos on November 10, [...] November 10, 2022. documented in this encounter [facility] 11-10-2022 Instructions Allie Ceballos DO - 11/10/2022 7:09 AM EDT Continue MS contin and oxycodone for btp. Continue Voltaren gel prn Encouraged to follow instructions of PCP and specialists Order PT for cervical spine pain. Once completed will order MRI Follow-up in 3 months with [facility] [employer] EXAMINER Obtain UDS documented in this encounter [facility] 10-30-2022 Miscellaneous Notes The following approved medication [...] daily as needed. Authorizing Provider: CINDY CRAMER APRN.WAREHOUSE DISTRIBUTION MANAGER Patient phones requesting refills as follows: Requested [...] test is not intended to distinguish between edhej-4-vsvuphubrfpqqglsbqgd, the predominant form of THC in most herbal or marijuana-based products, and zxgjq-4-tftzyabniampeougedep. Morphine 8076 ng/mg creat Normorphine 234 ng/mg [...] provided. For clinical consultation, please call . @FLOW([id number])@ Lab Results Component Value Date SUMM FINAL [...] test is not intended to distinguish between alioo-6-wdgyjvphjxnmunwihyyu, the predominant form of THC in most herbal or marijuana-based products, and tcdjm-0-zrqkmvynezskykudjibx. Morphine 1845 ng/mg creat Potential sources of [...] Ileana Roa RN documented in this encounter [facility] 10-27-2022 Miscellaneous Notes Summary: Appointment LVM patient to call to get rescheduled for appointment on 11/04/2022. documented in this encounter [facility] 09-30-2022 Miscellaneous Notes The following approved medication requests have been transmitted electronically. Requested Prescriptions Signed Prescriptions Disp Refills morphine SR (MS CONTIN) 15 mg 12 hr tablet 30 tablet 0 Sig: Take 1 tablet by mouth once daily as needed for pain for up to 30 days. for Pain Do not start before October 05, 2022. Authorizing Provider: BILL FOLEY oxyCODONE (ROXICODONE) 15 mg immediate release tablet 90 tablet 0 Sig: Take 1 tablet by mouth every 8 hours as needed for pain for up to 30 days. Do not start before October 05, 2022. Authorizing Provider: BILL FOLEY methocarbamol (ROBAXIN-750) 750 mg tablet 90 tablet 0 Sig: Take 1 tablet by mouth three times daily as needed. Authorizing Provider: BILL FOLEY APRN.ELEMENTARY EDUCATION TUTOR Patient phones requesting refills as follows: Requested [...] test is not intended to distinguish between qraog-4-lcpzmxjcmvlwvlmauwyf, the predominant form of THC in most herbal or marijuana-based products, and accti-0-sxdxtsarnigoqouuobhq. Morphine 8076 ng/mg creat Normorphine 234 ng/mg [...] provided. For clinical consultation, please call . @FLOW([id number])@ Lab Results Component Value Date SUMM FINAL [...] test is not intended to distinguish between kwlvd-1-erilyvfulyjafvbwqseq, the predominant form of THC in most herbal or marijuana-based products, and wmype-0-rleiwfhmznudcptzllvm. Morphine 1845 ng/mg creat Potential sources of [...] Lyla Babb RN documented in this encounter [facility] 09-01-2022 Miscellaneous Notes The following approved medication requests have been transmitted electronically. Requested Prescriptions Signed Prescriptions Disp Refills morphine SR (MS CONTIN) 15 mg 12 hr tablet 30 tablet 0 Sig: Take 1 tablet by mouth once daily as needed for pain for up to 30 days. for Pain Do not start before September 05, 2022. Authorizing Provider: BILL FOLEY oxyCODONE (ROXICODONE) 15 mg immediate release tablet 90 tablet 0 Sig: Take 1 tablet by mouth every 8 hours as needed for pain for up to 30 days. Do not start before September 05, 2022. Authorizing Provider: BILL FOLEY methocarbamol (ROBAXIN-750) 750 mg tablet 90 tablet 0 Sig: Take 1 tablet by mouth three times daily as needed. Authorizing Provider: BILL FOLEY APRN.ELEMENTARY EDUCATION TUTOR Patient phones requesting refills as follows: Requested [...] test is not intended to distinguish between jbgsh-0-aoiiogiblqhijkfspagy, the predominant form of THC in most herbal or marijuana-based products, and qjzqr-1-xhrvtxopxwqyjcyqgoua. Morphine 8076 ng/mg creat Normorphine 234 ng/mg [...] provided. For clinical consultation, please call . @FLOW([id number])@ Lab Results Component Value Date SUMM FINAL [...] test is not intended to distinguish between nqeyt-5-oyyuzyllshdgsgbakuah, the predominant form of THC in most herbal or marijuana-based products, and wgdaf-1-rewbmxnjbqchywjrmwbs. Morphine 1845 ng/mg creat Potential sources of [...] Lyla Babb RN documented in this encounter [facility] 08-12-2022 History of Present illness Narrative HISTORY AND PHYSICAL Gerald Man Staley 1960 REFERRING PHYSICIAN: Errol Cary MD CHIEF COMPLAINT: Consult (hemorrhoids) HPI: [...] me today at the request of Dr. Errol Cary MD for my opinion and advice regarding Rectal bleeding (primary encounter diagnosis) Pruritus ani . PAST MEDICAL HISTORY Diagnosis Date Abnormal EKG 04/23/2017 inf [place] age undetermined Adenomatous colon polyp Anxiety Chicken [...] nurse and reviewed by ca Nursing Notes: Juan Antonio Quigley LPN 08/12/2022 9:02 AM Signed REVIEW [...] last Mammogram screening? N/A Last Colonoscopy: 06/2022 Juan Antonio Quigley LPN PHYSICAL EXAMINATION: General: The patient is 62 year old male, well nourished, well hydrated in no acute distress. The patient is oriented to time, place, and person. VITALS: Blood pressure 110/64, pulse (!) 57, temperature 36.3 C (97.3 F), height 167.6 cm (5' 6"), weight 88.9 kg (196 lb), SpO2 98 [...] My findings have been communicated to Dr. Errol Cary MD via shared medical record. This note will be forwarded to Dr. Errol Cary MD. Return to Clinic: The patient is instructed to follow-up with me in 1 month. Yakov Etienne III, MD documented in this encounter [facility] 08-12-2022 Nurse Note REVIEW OF SYSTEMS: General: [...] last Mammogram screening? N/A Last Colonoscopy: 06/2022 Juan Antonio Quigley LPN documented in this encounter [facility] 07-21-2022 Note HNO ID: [id number] Author: Kyle Virk [facility] Service: ? Author Type: Speech Language Pathologist Type: Progress Notes Filed: 07/21/2022 3:33 PM Note Text: 07/21/2022 [facility] SPEECH DISCONTINUANCE OF [...] warranted and/or indicated by the referring physician. Kyle Virk, [facility] 06-30-2022 History of Present illness Narrative Images from the original note were not included. Yonathan Barajas MD Interventional Cardiology [address] [id number] Chief Complaint Patient presents with: Consult HISTORY [...] HISTORY Diagnosis Date Abnormal EKG 04/23/2017 inf [place] age undetermined Adenomatous colon polyp Anxiety Chicken [...] injection (DEFINITY) INTRAVENOUS DIRECTED PRN Lauren Steen APRN.WAREHOUSE DISTRIBUTION MANAGER sodium chloride 0.9 % (flush) 10 mL (BD POSIFLUSH) 10 mL INTRAVENOUS DIRECTED PRN Lauren Steen APRN.WAREHOUSE DISTRIBUTION MANAGER Facility-Administered Medications Ordered in Other Visits Medication [...] up planning: yearly Electronically signed by Yonathan Barajas MD on June 30, 2022, 3:39 PM The above note was partially created using a dictation recognition software. A reasonable attempt has been made to correct any errors. documented in this encounter [facility] 06-09-2022 Nurse Note Instructions reviewed with patient. States understanding [facility] 06-09-2022 Nurse Note Instructions reviewed with patient. States understanding Dr. Glen Brown Physician at bedside. documented in this encounter [facility] 06-09-[address] Glen Brown Physician at bedside. [facility] 06-09-2022 Anesthesiology Preoperative evaluation and management note HISTORY AND PHYSICAL Gerald Staley, 62 year old male Current history and physical on file: No Is a new History and Physical required for today's visit? Yes Indication for procedure: Screening PROCEDURE(S) SCHEDULED FOR: Colonoscopy with or without biopsies and with or without removal of polyps or lesions, dilation (any means), treatment of bleeding (any means), based on clinical findings. BASELINE BEHAVIOR: Calm BASELINE ORIENTATION: A & O x3 All medications and allergies reviewed: Yes Skin Assessment: Warm dry mucus membranes pink Airway/Respiratory Assessment: Airway: visualization of the uvula- Yes Mouth: opening greater than 2 fingerbreadths- Yes Neck: full range of motion- Yes Breath sounds clear/equal- Yes Cardiac Assessment: Regular rate and rhythm without murmur Abdominal Assessment: Abdomen soft, non-tender, no masses or organomegaly. Sedation Plan: Moderate Additional Comments: None Glen Brown MD [facility] Work Phone: 06-09-2022 Miscellaneous Notes HISTORY AND PHYSICAL Gerald Staley, 62 year old male Current history and physical on file: No Is a new History and Physical required for today's visit? Yes Indication for procedure: Screening PROCEDURE(S) SCHEDULED FOR: Colonoscopy with or without biopsies and with or without removal of polyps or lesions, dilation (any means), treatment of bleeding (any means), based on clinical findings. BASELINE BEHAVIOR: Calm BASELINE ORIENTATION: A & O x3 All medications and allergies reviewed: Yes Skin Assessment: Warm dry mucus membranes pink Airway/Respiratory Assessment: Airway: visualization of the uvula- Yes Mouth: opening greater than 2 fingerbreadths- Yes Neck: full range of motion- Yes Breath sounds clear/equal- Yes Cardiac Assessment: Regular rate and rhythm without murmur Abdominal Assessment: Abdomen soft, non-tender, no masses or organomegaly. Sedation Plan: Moderate Additional Comments: None Glen Brown MD documented in this encounter [facility] 06-03-2022 Miscellaneous Notes The following approved medication requests have been transmitted electronically. Requested Prescriptions Signed Prescriptions Disp Refills oxyCODONE (ROXICODONE) 15 mg immediate release tablet 90 tablet 0 Sig: Take 1 tablet by mouth every 8 hours as needed for pain for up to 30 days. Do not start before June 07, 2022. Authorizing Provider: BILL FOLEY morphine SR (MS CONTIN) 15 mg 12 hr tablet 30 tablet 0 Sig: Take 1 tablet by mouth once daily as needed for pain for up to 30 days. for Pain Do not start before June 07, 2022. Authorizing Provider: BILL FOLEY APRN.ELEMENTARY EDUCATION TUTOR Patient phones requesting refills as follows: Requested [...] test is not intended to distinguish between tluud-4-narvnnrzhinjfrouinlj, the predominant form of THC in most herbal or marijuana-based products, and xiwxc-7-yvcwloifynpuzxetltpn. Morphine 8076 ng/mg creat Normorphine 234 ng/mg [...] provided. For clinical consultation, please call . @FLOW([id number])@ Lab Results Component Value Date SUMM FINAL [...] test is not intended to distinguish between lcdpe-2-wniviqhxgmfkvnnjxivb, the predominant form of THC in most herbal or marijuana-based products, and afrhg-9-ydsklgqnsznsqchjodnr. Morphine 1845 ng/mg creat Potential sources of [...] Harmony Reeder RN documented in this encounter [facility] 06-03-2022 Miscellaneous Notes Patient phones requesting refills as [...] test is not intended to distinguish between cbnia-5-ojfqrppuqjuowtmapbsk, the predominant form of THC in most herbal or marijuana-based products, and tazgk-4-jbuoaoqogkpmqxxmjqxa. Morphine 8076 ng/mg creat Normorphine 234 ng/mg [...] provided. For clinical consultation, please call . @FLOW([id number])@ Lab Results Component Value Date SUMM FINAL [...] test is not intended to distinguish between vwgan-6-knwbqsdqgpjyoctnrckz, the predominant form of THC in most herbal or marijuana-based products, and tgosv-8-ydubxbpzqemjxbjxackf. Morphine 1845 ng/mg creat Potential sources of [...] Harmony Reeder RN documented in this encounter [facility] 06-02-2022 Instructions Gia Ventura PA-C - 06/02/2022 [...] THESE DIRECTIONS, YOUR COLONOSCOPY WILL BE CANCELLED. Morrissey Instructions: Your bowel must be empty so [...] If you do not have a responsible utility worker driver (family member or friend) with you to take you home, your exam cannot be done with sedation and will be cancelled. Please bring a list of all of your current medications, including any Pzgt-nqd-Hvrqowb medications with you. Medications If you take [...] exam. 2 01/2019 documented in this encounter [facility] 06-02-2022 History of Present illness Narrative CHIEF [...] Abs Lymph 1.00 - 4.00 k/uL 2.73 [place]e% % 9.6 Abs [place] <0.87 k/uL 1.00 (H) Eosin% % 0.4 [...] HISTORY Diagnosis Date Abnormal EKG 04/23/2017 inf [place] age undetermined Anxiety Chicken pox Colon polyps [...] 120/84 Pulse 100 Ht 165.1 cm (5' 5") Wt 96.2 kg (212 lb) BMI 35.28 [...] which included preparing to see the patient, kcwa-mo-mjea patient care, completing clinical documentation, obtaining and/or reviewing separately obtained history, performing a medically appropriate examination, counseling and educating the patient/family/caregiver, ordering medications, tests, or procedures, communicating with other HCPs (not separately reported), independently interpreting results (not separately reported), communicating results to the patient/family/caregiver, and care coordination (not separately reported). Gia Ventura PA-C June 02, 2022 2:00 PM documented in this encounter [facility] 06-02-2022 Note HNO ID: [id number] Author: Kyle Virk [facility] Service: ? Author Type: Speech Language Pathologist Type: Progress Notes Filed: 06/02/2022 1:00 PM Note Text: Episode Visit Count: 2 Therapist That Will Accept/Oversee The Plan Of Care: Amanda Start of Care Date: 05/06/22 Onset Date: 02/16/21 Plan of Care Certification Date: 05/06/22 Next Certification Due Date: 07/05/22 Patient Identified by Name and Date of : Yes [facility] SPEECH THERAPY PROGRESS [...] care. Patient and : agreed with aforementioned. [employer] Recommendations: Outpatient Speech Therapy Results and Recommendations Discussed With: Patient, Significant Other Planned Interventions, Frequency, and Duration: Planned Treatment Interventions: Cognitive-Linguistic Training (92703, 16728, 40071), Speech Treatment (15271) Current Frequency: 1x every other week Duration: [...] to support thought organization TREATMENT: Speech/Language Therapy (77280): Skilled Intervention: Educated and instructed patient on compensatory strategies for word-finding and sequencing Educated and instructed patient on memory recall strategies such as focused attention, verbal repetition, visualization, association, and graphic skills. Current Home Program: memory strategies, word recall; uitlize written/visual aids for recall of events Billing: Speech Treatment (21178) Total time / Length of visit: 60 minutes Kyle Virk CCC-STEEL GRINDER [facility] 06-02-2022 History of Present illness Narrative Episode Visit Count: 2 Therapist That Will Accept/Oversee The Plan Of Care: Amanda Start of Care Date: 05/06/22 Onset Date: 02/16/21 Plan of Care Certification Date: 05/06/22 Next Certification Due Date: 07/05/22 Patient Identified by Name and Date of : Yes [facility] SPEECH THERAPY PROGRESS [...] care. Patient and : agreed with aforementioned. STEEL GRINDER Recommendations: Outpatient Speech Therapy Results and Recommendations Discussed With: Patient, Significant Other Planned Interventions, Frequency, and Duration: Planned Treatment Interventions: Cognitive-Linguistic Training (32887, 12922, 90254), Speech Treatment (24472) Current Frequency: 1x every other week Duration: [...] to support thought organization TREATMENT: Speech/Language Therapy (57420): Skilled Intervention: Educated and instructed patient on compensatory strategies for word-finding and sequencing Educated and instructed patient on memory recall strategies such as focused attention, verbal repetition, visualization, association, and graphic skills. Current Home Program: memory strategies, word recall; uitlize written/visual aids for recall of events Billing: Speech Treatment (84449) Total time / Length of visit: 60 minutes SHELTON Proctor documented in this encounter [facility] 05-06-2022 Note HNO ID: [id number] Author: SHELTON Proctor Service: ? Author Type: Speech Language Pathologist Type: Progress Notes Filed: 05/06/2022 2:29 PM Note Text: Episode Visit Count: 1 Therapist That Will Accept/Oversee The Plan Of Care: Amanda Start of Care Date: 05/06/22 Onset Date: 02/16/21 Plan of Care Certification Date: 05/06/22 Next Certification Due Date: 07/05/22 Patient Identified by Name and Date of : Yes [facility] COGNITIVE LINGUISTIC EVALUATION PLAN OF CARE: Impression: Communication deficits identified: Cognitive deficits RECOMMENDATION: STEEL GRINDER Recommendations: Outpatient Speech Therapy Results and Recommendations [...] and Duration: Planned Treatment Interventions: Cognitive-Linguistic Training (86385, 16858, 31030), Speech Treatment (87634) Current Frequency: 1x every other week Duration: [...] work in 2016; was working at a [employer] company -Lives with at home, son at [...] utilized in the evaluation of the patient: [place] Diagnostic Aphasia and Western Aphasia Battery. -Suspect [...] Eval Sound Production with Language Expression and Product Marketing Programs Manager (50201) Speech/Language Therapy (23058): Skilled Intervention: Educated and instr (more content not included)... [facility] 05-06-2022 History of Present illness Narrative Episode Visit Count: 1 Therapist That Will Accept/Oversee The Plan Of Care: Amanda Start of Care Date: 05/06/22 Onset Date: 02/16/21 Plan of Care Certification Date: 05/06/22 Next Certification Due Date: 07/05/22 Patient Identified by Name and Date of : Yes [facility] COGNITIVE LINGUISTIC EVALUATION PLAN OF CARE: Impression: Communication deficits identified: Cognitive deficits RECOMMENDATION: STEEL GRINDER Recommendations: Outpatient Speech Therapy Results and Recommendations [...] and Duration: Planned Treatment Interventions: Cognitive-Linguistic Training (93814, 88220, 58787), Speech Treatment (02866) Current Frequency: 1x every other week Duration: [...] work in 2016; was working at a [employer] company -Lives with at home, son at [...] utilized in the evaluation of the patient: [place] Diagnostic Aphasia and Western Aphasia Battery. -Suspect [...] Eval Sound Production with Language Expression and Product Marketing Programs Manager (57546) Speech/Language Therapy (03690): Skilled Intervention: Educated and instructed patient on compensatory strategies for word-finding Educated and instructed patient on memory recall strategies such as focused attention, active repetition, visualization, and association. Current Home Program: memory strategies, word recall Billing: Eval Sound Production with Language Expression and Product Marketing Programs Manager (48047) and Speech Treatment (56219) Total time / Length of visit: 60 minutes Kyle Vrik CCC-STEEL GRINDER documented in this encounter [facility] 04-28-2022 Instructions Bill Foley APRN.CNS - 04/28/2022 2:46 PM EDT Continue MS [...] in 3 months documented in this encounter [facility] 04-28-2022 History of Present illness Narrative SUBJECTIVE: Gerald Staley presents to [facility] for a follow-up appointment [...] HISTORY Diagnosis Date Abnormal EKG 04/23/2017 inf [place] age undetermined Anxiety Chicken pox Colon polyps [...] agreement with the above and verbalized understanding. Bill Foley APRN.CNS April 28, 2022 documented in this encounter [facility] 04-16-2022 History of Present illness Narrative Patient [...] so with stool now. Has not seen Charlotte since December. No bloody or black stools. [...] over a year. Has a hx of "heavy drinking" per patient for a number of years. [...] HISTORY Diagnosis Date Abnormal EKG 04/23/2017 inf [place] age undetermined Anxiety Chicken pox Colon polyps [...] 110/70 Pulse 66 Ht 165.1 cm (5' 5") Wt 96.2 kg (212 lb) SpO2 96% [...] if any issues. - HYPERCOAG DIAG PNL Errol Cary MD documented in this encounter [facility] 04-15-2022 History of Present illness Narrative April [...] kg (213 lb) Height: 165.1 cm (5' 5") Physical Exam EXAM: NOSE: no erythema or [...] HISTORY Diagnosis Date Abnormal EKG 04/23/2017 inf [place] age undetermined Anxiety Chicken pox Colon polyps [...] injection (DEFINITY) INTRAVENOUS DIRECTED PRN Lauren Steen APRN.CNP sodium chloride 0.9 % (flush) 10 mL (BD POSIFLUSH) 10 mL INTRAVENOUS DIRECTED PRN Lauren Steen APRN.WAREHOUSE DISTRIBUTION MANAGER Social Connections: Unknown Frequency of Communication with Friends and Family: Patient refused Frequency of Social Gatherings with Friends and Family: Patient refused Attends Sikhism Services: Patient refused Active Member of Clubs [...] from Folstein et al.1 and Christine and Folstein2. (c) 1974, 1997 [employer] Used with permission. References: 1. Folstein MF, Folstein SE, Loy DC. Mini-Mental State: a practical method for grading [...] in patients with probable Alzheimer's disease. Neurology. 1992;42:8743-6698. Assessment and Plan 61 years old man [...] patient and /or family. April 15, 2022 Susan Saucedo M.D. [facility] [place] Department of Neurology documented in this encounter [facility] 04-03-2022 Miscellaneous Notes The following approved medication requests have been transmitted electronically. Requested Prescriptions Signed Prescriptions Disp Refills morphine SR (MS CONTIN) 15 mg 12 hr tablet 30 tablet 0 Sig: Take 1 tablet by mouth once daily as needed for pain for up to 30 days. for Pain Do not start before April 08, 2022. Authorizing Provider: BILL FOLEY oxyCODONE (ROXICODONE) 15 mg immediate release tablet 90 tablet 0 Sig: Take 1 tablet by mouth every 8 hours as needed for pain for up to 30 days. Do not start before April 08, 2022. Authorizing Provider: BILL FOLEY APRN.ELEMENTARY EDUCATION TUTOR Patient phones requesting refills as follows: Requested [...] Last UDS: No results found for: SUMM @FLOW([id number])@ No results found for: SUMM Summary Report [...] test is not intended to distinguish between nnnek-9-edovldtlkvvzyoboljeq, the predominant form of THC in most herbal or marijuana-based products, and xlwlx-6-vmimiebpbxoeuaxjgxxj. Morphine 1845 ng/mg creat Potential sources of [...] Annabelle Green RN documented in this encounter [facility] 04-02-2022 Instructions Jennifer Alfonso APRN.CNP - 04/02/2022 3:04 PM EST Shubham Fermin, It was good to talk with you today. Below is a summary of the plan that we discussed during your appointment for reference. Of course, if you have any questions or concerns do not hesitate to reach out to me via a message or call. Jennifer Kolb APRN.WAREHOUSE DISTRIBUTION MANAGER PLAN AND FOLLOW UP: YOU SHOULD SEEK [...] - Call the National Suicide Hotline at 5-748-FTKTZCV ( ) or 2-997-973-TALK (0561) - Text 4HOKG to 297424 Medication Update: Risperdal (Risperidone) 0.5 mg - take 1 tablet twice daily. Continue Lamictal (Lamotrigine) at the same dose. Next appointment: --Schedule in 3 months or sooner if needed -- You may call the department appointment line at [phone] to schedule your appointment. -- Please call my nurse Rimma at [phone] or send me a message in [facility] with any questions or concerns between appointments. documented in this encounter [facility] 04-02-2022 History of Present illness Narrative Images [...] He is not getting adequate money from [employer] to support him. He is not receiving food stamps anymore. He is unable to work due to his chronic pain issues. He is still waiting to receive payment from his worker's [employer] settlement. He has stress related to not [...] Congruent to mood Speech/Language: Appropriate tone, prosody, nona, phonetics, and syntax Thought Form: Goal-directed. No [...] which included preparing to see the patient, vkic-sg-iwvz patient care, completing clinical documentation, and counseling and educating the patient/family/caregiver, ordering medications/labs. Jennifer Alfonso APRN.CNP April 02, 2022 2:36 PM This note was partially generated using UGAME voice recognition system. Note was reviewed for accuracy. There may be minor misspellings or grammar miscues with UGAME voice recognition. documented in this encounter [facility] 03-29-2022 Miscellaneous Notes Spoke with patient. Given [...] he see neurology. documented in this encounter [facility] 03-28-2022 History of Present illness Narrative Radiology [...] IV DATA: Not applicable SIGNED BY: RT Brett(R) March 28, 2022 9:26 AM documented in this encounter [facility] 03-04-2022 Miscellaneous Notes The following approved medication [...] Harmony Reeder RN documented in this encounter [facility] 03-03-2022 Miscellaneous Notes Addended by: VAN MORRIS on: 03/03/2022 04:08 PM Modules accepted: Orders documented in this encounter [facility] 03-03-2022 History of Present illness Narrative Patient [...] over a year. Has a hx of "heavy drinking" per patient for a number of years. [...] heart cath in 2019. Had egd in 2018. Remains tired and fatigued and appears clinically depressed. He did not see Jennifer for follow up. Did not keep his appt for his special events fundraiser. He is being treated for his PE [...] HISTORY Diagnosis Date Abnormal EKG 04/23/2017 inf [place] age undetermined Anxiety Chicken pox Colon polyps [...] 116/82 Pulse 70 Ht 165.1 cm (5' 5") Wt 98 kg (216 lb) SpO2 98% [...] ICD10: R51.9 - MRI BRAIN WO IVCON Errol Cary MD RTO in six months documented in this encounter [facility] 02-11-2022 Miscellaneous Notes Left detailed message on identifiable voicemail. Liver shows benign vascular lumps called hemangiomas which are ok. Shows fatty liver. Needs to avoid etoh and make sure he rechecks liver panel in one month documented in this encounter [facility] 02-07-2022 Miscellaneous Notes Message sent to patient via [employer] will need to reschedule appointment. Dr Etienne not available on 02.11.22. documented in this encounter [facility] 02-05-2022 History of Present illness Narrative Radiology [...] Exam(s) Completed: Body: Liver (routine) SIGNATURE: Lisset Heller RDMS, RVT - Jodie ([facility]) PATIENT NAME: Gerald Staley DATE: February 05, 2022 TIME: 1:16 PM documented in this encounter [facility] 01-29-2022 History of Present illness Narrative Images [...] health issues he has been experiencing. His [employer] comp settlement was completed in August but he still has not received his check so he has financial stress related to that. He is worried about buying gifts for the grandchildren. 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 He has limitations when it [...] Congruent to mood Speech/Language: Appropriate tone, prosody, nona, phonetics, and syntax Thought Form: Goal-directed. No [...] which included preparing to see the patient, dynj-dj-wlvl patient care, completing clinical documentation, and counseling and educating the patient/family/caregiver, ordering medications/labs. Jennifer Alfonso APRN.JADA January 29, 2022 3:12 PM This note was partially generated using UGAME voice recognition system. Note was reviewed for accuracy. There may be minor misspellings or grammar miscues with Dragon voice recognition. documented in this encounter [facility] 01-28-2022 Instructions Bill Foley APRN.CNS - 01/28/2022 10:57 AM EST [...] in 3 months documented in this encounter [facility] 01-28-2022 History of Present illness Narrative Patient [...] Negative on left. documented in this encounter [facility] 01-16-2022 History of Present illness Narrative Radiology [...] 2022 11:10 AM documented in this encounter [facility] 01-14-2022 History of Present illness Narrative HISTORY AND PHYSICAL Gerald Ureñat 1960 REFERRING PHYSICIAN: Errol Cary MD CHIEF COMPLAINT: Consult (INTERNAL HEMORRHOIDS, [...] me today at the request of Dr. Errol Cary MD for my opinion and advice regarding Internal hemorrhoids Rectal bleeding Epigastric pain (primary encounter diagnosis) Nausea. PAST MEDICAL HISTORY Diagnosis Date Abnormal EKG 04/23/2017 inf [place] age undetermined Anxiety Chicken pox Colon polyps [...] C (97 F), height 165.1 cm (5' 5"), weight 99.7 kg (219 lb 12.8 oz), [...] and going to get rectal suppositories at [facility] and follow back up with him [...] My findings have been communicated to Dr. Errol Cary MD via shared medical record. This note will be forwarded to Dr. Errol Cary MD. Return to Clinic: The patient is instructed to follow-up with me in 1 month. Yakov Etienne III, MD documented in this encounter [facility] 01-14-2022 Nurse Note REVIEW OF SYSTEMS: General: [...] Rosalia Fong LPN documented in this encounter [facility] 01-13-2022 History of Present illness Narrative PULM FUNCTION SMARTBLOCK: Provider: Errol Cary MD Assisting Tech: LISA Orellana Spirometry w/BD: 1 DLCO: 1 LV - Box: 1 documented in this encounter [facility] 01-08-2022 Miscellaneous Notes The following approved medication [...] days. for Pain Authorizing Provider: CINDY CRAMER APRN.JADA Pt requesting refill as follows Requested Prescriptions [...] Annabelle Green RN documented in this encounter [facility] 01-08-2022 Miscellaneous Notes Left patient a detailed message on identifiable voicemail. Advised to return call to schedule liver us. Labs are all ok. Other than one liver enzyme is up. Avoid any etoh. Will follow. Do labs in one month and liver us. documented in this encounter [facility] 01-06-2022 Miscellaneous Notes Detailed message left on patient's secure line. Stacia Bartlett RN His labs are ok, however, his calcium appears low. Is often due to lab error etc. To be on safe side, lets repeat more labs this week documented in this encounter [facility] 12-20-2021 Instructions Cindy Cramer APRN.CNP - 12/20/2021 1:20 PM EDT OARRS reviewed [...] Cindy Cramer APRN.JADA documented in this encounter [facility] 12-20-2021 History of Present illness Narrative This video visit was performed via [facility] video visit. Patient consented to receive health care services via virtual visit for this encounter Provider Location: [facility] Facility Patient Location: Patient Home or Place of Residence Risks, benefits, and limitations of receiving care virtually were discussed with the patient. The patient expressed understanding and is willing to proceed. Chief Complaint: Pain History of Present Illness: Gerald Staley is a 61 year old year old male being seen at [facility] for a evaluation [...] HISTORY Diagnosis Date Abnormal EKG 04/23/2017 inf [place] age undetermined Anxiety Chicken pox Colon polyps [...] Cindy Cramer APRN.CNP documented in this encounter [facility] 12-03-2021 Miscellaneous Notes The following approved medication [...] Lyla Babb RN documented in this encounter [facility] 11-22-2021 Miscellaneous Notes Noted. His order is already entered Pt returned our call, notified him to come today for uds, he said "ok", I reviewed office hours with him Ileana Roa RN November 22, 2021 10:03 AM Lmom to call the office Ileana Roa RN November 22, 2021 9:45 AM Please call him again today. Thank you! Attempted to call the pt for UDS today, message left to call the office back. Please advise. Annabelle Green RN November 21, 2021 8:06 AM documented in this encounter [facility] 11-06-2021 History of Present illness Narrative Summary: Follow Up: Virtual Visit This video visit was performed via [facility] video visit. Patient consented to receive health care services via virtual visit for this encounter Provider Location: [facility] Patient Location: Patient Home or Place of Residence Risks, benefits, and limitations of receiving care virtually were discussed with the patient. The patient expressed understanding and is willing to proceed. Chief Complaint: Pain History of Present Illness: Gerald Staley is a 61 year old year old male being seen at [facility] for a evaluation [...] HISTORY Diagnosis Date Abnormal EKG 04/23/2017 inf [place] age undetermined Anxiety Chicken pox Colon polyps [...] PCP Norman Cary B/L shoulder steroidal injection prn (last inj. 08/21/2021) Start physical therapy for cervical spine. Once physical therapy is done, will submit for a c-spine MRI F/U in 1 month(s). Lisa Heller APRN.JADA documented in this encounter [facility] 11-05-2021 Miscellaneous Notes Spoke with pt and [...] Rochelle Peters LPN documented in this encounter [facility] 11-04-2021 History of Present illness Narrative Patient presents with: Covid Follow Up: POS 10/22/21 Hospital F/U: [facility] 10/23/21 [facility] 10/31/21 HPI: Patient presents today for office visit for hospital follow up. Was in Hospital twice. [facility] and . Dx with Covid and blood clots in lungs Presented initially to [facility] with new onset Rt sided chest pain or four day duration. Diagnosed by Ct with a PE. Was begun on anticoagulation. He then went back to ER and [facility] declined admit so was admitted to [facility] where the diagnosed with with covid, likely causing the PE. Continued on eliquis for six months. Was treated with remdesivir and decadron and discharged. Apparently was also in the hospital at after because he still had chest pain. Had a rule out mi protocol done. The thought has been that his chest pain is probably musculoskeletal at [facility] It starts in the lower ribs, [...] HISTORY Diagnosis Date Abnormal EKG 04/23/2017 inf [place] age undetermined Anxiety Chicken pox Colon polyps [...] 130/90 Pulse 69 Ht 165.1 cm (5' 5") Wt 100.3 kg (221 lb 3.2 oz) [...] meds. - OMEPRAZOLE 20 MG CAPSULE,DELAYED RELEASE Errol Cary MD RTO in one month or prn documented in this encounter [facility] 11-02-2021 Note Send Summary: Discharge Summary Providers: Provider RoleProvider Name Chago Stephen Note Recipients: Errol Cary MD - [id number] [] Discharge: Summary: Admission Date: .31-Oct-2021 22:05:00 Discharge Date: 02-Nov-2021 Attending Physician at Discharge: Chago Hernández Admission Reason: chest pain and dizziness Final Discharge Diagnoses: Pleuritis, Chronic pain syndrome Procedures: 1. CTA of the chest 11/01/2021 Condition at Discharge: Fair Disposition at Discharge: .Home Vital Signs: T PRBPMAPSpO2 [id number]% Date/Time11/02 8: 8: 8: 8: 3: 8:09 Range(36.2C - 36.4C ) (55 - 89 ) (12 - 20 ) (113 - 135 )/ (73 - 91 ) (101 - 101 ) (94% - 99% ) Date: Weight/Scale Type:Height: 01-Nov-2021 03:63522 kg / qkr132.1 cm Physical Exam: Constitutional: awake/alert/oriented x3, not [...] He went to the emergency room at [place] and diagnosed with PE and transferred to [place] where he was admitted for 5 days. [...] Electronic Signatures: Edgar, (more content not included)... [facility] 11-01-2021 Note History of Present I llness: [...] a day. Objective: Objective Information: T PRBPMAPSpO2 [id number]% Date/Time11/01 3: 3: 3: 3: 3: 3:05 [...] Recent Lab Results: Results: CBC: 10/31/2021 22:57 \\ Hgb / \\ 14.6 / WBC Plt 7.7 290 / Hct \\ / 43.2 \\ RBC: 4.86 MCV: 89 Neutrophil %: 64.3 CMP: 10/31/2021 22:58 NA+ Cl- BUN / 136 101 22 / Glucose 145 H K+ HCO3- Creat \\ 3.8 28 1.21 \\ \\ T Bili / \\ 0.8 / AST x ---- x ALT 15 x ---- x 37 / Alk P \\ / 80 \\ Calcium : 8.7 Anion Gap : 11 [...] opioids, hyperlipidemia, depr (more content not included)... [facility] 10-28-2021 Miscellaneous Notes Pharmacy electronically requesting refill(s): [facility] [place] Last appt: 08/22/21 Upcoming appt: 12/04/21 Requested Prescriptions Pending Prescriptions Disp Refills lamoTRIgine (LAMICTAL) 150 mg tablet [Pharmacy Med Name: lamotrigine 150 mg tablet] 30 tablet 1 Sig: TAKE 1 TABLET BY MOUTH ONCE DAILY Please review and process accordingly. Thank you! Marisa Feliciano documented in this encounter [facility] 10-26-2021 Note Discharge Summary Gerald Staley : 1960 ADMIT DATE: 10/22/2021 DISCHARGE DATE: 10/26/2021 PRIMARY CARE PHYSICIAN: Errol Cary MD VISIT STATUS: Admission CODE STATUS: [...] Your Medications These medications were sent to [id number] - [place], [place] - [address] - P [phone] - F [phone] [address] [place] [address] albuterol sulfate HFA 108 (90 Base) MCG/ACT [...] Complexity: follow up within 7-14 calendar days (71920) [] Severe Complexity: follow up within 7 calendar days (78927) FOLLOW UP TESTING, PENDING RESULTS OR REFERRALS AT TRANSITIONAL CARE VISIT: [] Yes [] No PENDING STUDIES: No DISPOSITION: Home FACILITY/HOME CARE AGENCY NAME: Follow up with Errol Cary MD [address] [facility] [place] [id number] Follow up on 10/29/2021 INSTRUCTIONS TO MA/SW: [...] SIGNED: PRISCILLA BOOKER MD 10/26/2021, 12:03 PM [facility] 10-26-2021 Hospital Discharge instructions Priscilla Booker [...] most local grocery stores, pharmacies, and chain [employer]. If you have any questions about your diet or nutrition, call the hospital and ask for the dietitian. Low fat/low salt diet documented in this encounter [facility] Work Phone: 10-25-2021 History of Present illness Narrative Progress Note 10/25/2021 10:17 PM Name: Gerald Staley IP Day: 3 Admit Date: 10/22/2021 5:20 AM PCP: Errol Cary MD Code Status: Full Code Subjective: No n/v, f/c, palpitations. Tolerating diet. Improving. D/w pt and at bedside. Physical Examination: Vitals: BP 127/82 Pulse 56 Temp 97.2 F (36.2 C) (Temporal) Resp 16 Ht 5' 5" (1.651 m) Wt 220 lb (99.8 kg) [...] planning-10/26 once remdesivir rx complete, see orders. [facility] Respiratory Care Department Progress Note SpO2 [...] assess Fluid Accumulation: No significant fluid accumulation Fish Roe Technician Strength: Not Performed Nutrition Assessment: Pt was [...] Protein Oral Supplement Anthropometric Measures: Height: 5' 5" (165.1 cm) Cody Body Weight (IBW): 136 lbs (62 kg) Admission Body Weight: 220 lb (99.8 kg) Current Body Weight: 220 lb (99.8 kg), 161.8 % IBW. Weight Source: Stated Current BMI (kg/m2): 36.6 Weight Adjustment For: No Adjustment BMI Categories: Obese Class 2 (BMI 35.0 -39.9) Estimated Daily Nutrient Needs: Energy Requirements Based On: Kcal/kg Weight Used for Energy Requirements: Cody Energy (kcal/day): 3038-9893 kcals (28-30) Weight Used for Protein Requirements: Cody Protein (g/day): 74-93 (1.2-1.5) Method Used for [...] Continue Oral Nutrition Supplement Christina Munoz RD, SIL[place] Contact: *[phone] Images from the original note were not included. [facility] [place], Pulmonary Critical Care and Sleep Medicine Patient - Gerald Staley, Age - 61 y.o. - 1960 Room Number - [phone] Consulting - Yakov Light MD Primary Care Physician - Errol Cary MD Date of Admission - 10/22/2021 5:20 AM Hospital Day - 3 Subjective/Events Past 24 hours/ROS Patient feeling better Improved rt lower quadrant Pleuritic chest pain Afebrile O2 sat 96% on RA Afebrile, Appetite good All other systems reviewed Objective Vitals height is 5' 5" (1.651 m) and weight is 220 lb [...] 88.8 PLT 257 BMP: Recent Labs 10/25/21 0331 NA 133* K 4.0 CL 102 CO2 [...] 2 Admit Date: 10/22/2021 5:20 AM PCP: Errol Cary MD Code Status: Full Code Subjective: SOB and weakness better. Some back pain, right sided intermittently. No n/v, f/c, palpitations. Tolerating diet. D/w pt Physical Examination: Vitals: BP 126/81 Pulse 60 Temp 97.5 F (36.4 C) (Temporal) Resp 18 Ht 5' 5" (1.651 m) Wt 220 lb (99.8 kg) [...] rx complete, see orders. Occupational Therapy Facility/Department: [facility] Occupational Therapy Daily Treatment Note [...] above performance deficits. Recommend planned d/C for [facility] OT. History: Pt in 10/22 [...] AM-PAC Inpatient Daily Activity Raw Score: 19 (10/24/21 1205) AM-PAC Inpatient ADL T-Scale Score : 40.22 (10/24/21 1205) ADL Inpatient CMS 0-100% Score: 42.8 (10/24/21 1205) ADL Inpatient CMS G-Code Modifier : CK [...] 14 Doc Belle OT Physical Therapy Facility/Department: [facility] Physical Therapy Initial Assessment Name: [...] promote mobility and decreased falls risk, rec C PT (vs OPPT) Therapy Prognosis: Good Decision Making: Medium Complexity History: COVID-19; PE Exam: [facility] Clinical Presentation: Pt admitted 10/22 with COVID-19 [...] Independent (no device) Transfer Assistance: Independent Active Train Attendant: Yes Mode of Transportation: Car Occupation: On [...] pattern, no LOB. Pt with slight decreased nona, step length Gait Deviations: Slow Nona Distance: ~100 ft Comments: Pt with no [...] Time Individual Concurrent Group Co-treatment Time In 45 Time Out 0955 Minutes 10 Nomi Lora PT [facility] Respiratory Care Department Progress Note As part [...] from the original note were not included. [facility] [place], Pulmonary Critical Care and Sleep Medicine Patient - Gerald Staley, Age - 61 y.o. - 1960 Room Number - [phone] Consulting - Yakov Light MD Primary Care Physician - Errol Cary MD Date of Admission - 10/22/2021 5:20 AM Hospital Day - 2 Subjective/Events Past 24 hours/ROS Patient continues to improve Minimal rt lower quadrant Pleuritic chest pain Afebrile O2 sat 94% on RA Afebrile, no N/V All other systems reviewed Objective Vitals height is 5' 5" (1.651 m) and weight is 220 lb [...] to the Dietitian for poor nutrition intake. [facility] Respiratory Care Department Progress Note As [...] 1 Admit Date: 10/22/2021 5:20 AM PCP: Errol Cary MD Code Status: Full Code Subjective: Still with SOB and weakness. Some chest discomfort. No n/v, f/c, palpitations. Tolerating diet. D/w pt and at bedside. Physical Examination: Vitals: BP 113/81 Pulse 71 Temp 97.9 F (36.6 C) (Temporal) Resp 16 Ht 5' 5" (1.651 m) Wt 220 lb (99.8 kg) [...] from the original note were not included. [facility] [place], Pulmonary Critical Care and Sleep Medicine Patient - Gerald Staley, Age - 61 y.o. - 1960 Room Number - [phone] Consulting - Yakov Light MD Primary Care Physician - Errol Cary MD Date of Admission - 10/22/2021 5:20 AM Hospital Day - 1 Subjective/Events Past 24 hours/ROS Patient feeling better today, rt sided pleuritic chest marcell improving, able to take take breath without much of pain Afebrile Remained hypoxic on RA, O2 sat 92% Afebrile No N/V Appetite improving Tolerating Apixaban well All other systems reviewed Objective Vitals height is 5' 5" (1.651 m) and weight is 220 lb [...] Questions and concerns addressed. Occupational Therapy Facility/Department: [facility] Occupational Therapy Initial Assessment Name: [...] address the above. Recommend planned D/C for [facility] OT pending progress. History: Pt [...] Independent (no device) Transfer Assistance: Independent Active Train Attendant: Yes Objective Heart Rate: 69 Heart Rate [...] Cognition Comment: grossly WFL, pt reports feeling "hazy" however also reports that he had recently [...] 155) ADL Inpatient CMS 0-100% Score: 42.8 (10/22/21 155) ADL Inpatient CMS G-Code Modifier : CK (10/22/211553) Goals Short Term Goals Time Frame for [...] included. Hospitalist Progress Note 10/22/2021 10:44 AM [phone]: Please perfect serve me for patient care issues. [phone]: Please page [facility] night Hospitalist for any issues. Subjective: Admit Date: 10/22/2021 PCP: Errol Cary MD Room#: [phone] Interval History: No overnight issues. Patient feels [...] Advance Directive: Full Code Discharge planning: TBD KARI Spear CNP Division of Hospitalist Medicine Inpatient Medical Services PAGER: Wojciech serve documented in this encounter [facility] Work Phone: 10-23-2021 Miscellaneous Notes Left message with the pt to get verbal consent to obtain ER reports. Please advise. Annabelle Green RN Ok. Please request the ER notes from this admission. Thank you Pt called for UDS today, pt states that he was admitted yesterday at [facility] for COVID and has two blood clots in his lungs. Please advise. Annabelle Green RN Ok. I put the order in. Please call him again tomorrow if he does not come in today. Attempted to call the pt today for UDS, message left to call the office back. Please advise., Annabelle Green RN documented in this encounter [facility] 10-16-2021 History of Present illness Narrative Patient presents with: ER F/U: [facility] HPI: Patient presents today for office visit for follow up ER FOLLOW UP: Reason for visit: chest pain Which facility: [facility] Date of visit: 10/08/21 Diagnosis: chest [...] HISTORY Diagnosis Date Abnormal EKG 04/23/2017 inf [place] age undetermined Anxiety Chicken pox Colon polyps [...] 530.81, ICD10: K21.9 Add prilosec. Avoid nsaid. Errol Cary MD documented in this encounter [facility] 10-08-2021 Miscellaneous Notes Last office visit 05/27/21 [...] pharmacy. No need to notify patient. Paula Rubalcava documented in this encounter [facility] 10-08-2021 History of Present illness Narrative Summary: Follow Up: Virtual Visit This video visit was performed via [facility] video visit. Patient consented to receive health care services via virtual visit for this encounter Provider Location: [facility] Facility Patient Location: Patient Home or Place of Residence Risks, benefits, and limitations of receiving care virtually were discussed with the patient. The patient expressed understanding and is willing to proceed. Chief Complaint: Pain History of Present Illness: Gerald Staley is a 61 year old year old male being seen at [facility] for a evaluation [...] HISTORY Diagnosis Date Abnormal EKG 04/23/2017 inf [place] age undetermined Anxiety Chicken pox Colon polyps [...] Lisa Heller APRN.JADA documented in this encounter [facility] 10-02-2021 Miscellaneous Notes It is now finalized. Lauren Steen APRN.CNP Stress test results have been in preliminary status for over a week. Can we please get an estimate of when the results will be finalized? documented in this encounter [facility] 09-23-2021 History of Present illness Narrative RADIOLOGY SERVICE PROGRESS NOTE SERVICE DATE: SERVICE TIME: PATIENT IDENTITY VERIFICATION COMPLETED USING TWO (2) METHODS: Patient confirmed name and Date of verbally. ALLERGIES REVIEWED: MEDICATIONS REVIEWED BY: PROCEDURE TYPE: NM STRESS: 0.4 mg of Lexiscan was administered IV at 0846 over 10 Seconds by Kvng Murray RN Reversal agent used:None LOT [id number] [id number] IV SITE: IV palced by nuclear tecnologist POST EXAM PIV STATUS: Discontinued by Bond Trader PATIENT DISCHARGED TO: Nuclear Medicine Department for post stress imaging A Diagnostic radioactive procedure has taken place, with no further precautions necessary other than routine body substance precautions. More information regarding radiation safety can be found using this link: [email or web address] 20-%20Diagnostic%20Nuclear%20Medicine% 20Procedures.[email or web address] SIGNATURE: KVNG MURRAY RN PATIENT NAME: GERALD STALEY DATE: 09/23/21 TIME: 10:09 AM documented in this encounter [facility] 09-23-2021 History of Present illness Narrative RADIOLOGY [...] POST EXAM PIV STATUS: Discontinued PROCEDURE TYPE: CT Stress: 16.4mCi [id number] was administered IV for Rest Imaging at 07:38 by pennie Quigley. 48.3 mCi [id number] was administered IV for Stress Imaging at 08:46 by PENNIE Quigley. ADMINISTRATION TIME: PATIENT DISCHARGED TO: Ambulatory patient, left CT department area. A Diagnostic radioactive procedure has taken place, with no further precautions necessary other than routine body substance precautions. More information regarding radiation safety can be found using this link: [email or web address] 20-%20Diagnostic%20Nuclear%20Medicine% 20Procedures.pdf SIGNATURE: PENNIE Quigley PATIENT NAME: Gerald Staley DATE: September 23, 2021 TIME: 7:53 AM PAGER/CONTACT #: documented in this encounter [facility] 09-09-2021 Instructions Lisa Heller APRN.CNP - 09/09/2021 1:12 PM EDT Please call physical therapy [phone] option #2 to schedule physical therapy. documented in this encounter [facility] 09-09-2021 History of Present illness Narrative Summary: Follow Up: Virtual Visit This video visit was performed via [facility] video visit. Patient consented to receive health care services via virtual visit for this encounter Provider Location: [facility] Facility Patient Location: Patient Home or Place of Residence Risks, benefits, and limitations of receiving care virtually were discussed with the patient. The patient expressed understanding and is willing to proceed. Chief Complaint: Pain History of Present Illness: Gerald Staley is a 61 year old year old male being seen at [facility] for a evaluation [...] HISTORY Diagnosis Date Abnormal EKG 04/23/2017 inf [place] age undetermined Anxiety Chicken pox Colon polyps [...] months Encouraged to follow instructions of PCP Noramn Cary B/[place] shoulder steroidal injection prn (last inj. 08/21/2021) Start physical therapy for cervical spine. Once physical therapy is done, will submit for a c-spine MRI F/U in 1 month(s). Lisa Heller APRN.JADA documented in this encounter [facility] 09-04-2021 Miscellaneous Notes Done 08/21/2021 Has this patient been scheduled? Please schedule patient for bilateral shoulder injections with Dr. Ceballos in [place]. Thank you! documented in this encounter [facility] 08-22-2021 History of Present illness Narrative Images [...] Congruent to mood Speech/Language: Appropriate tone, prosody, nona, phonetics, and syntax Thought Form: Goal-directed. No [...] which included preparing to see the patient, [id number] patient care, completing clinical documentation, and counseling and educating the patient/family/caregiver, ordering medications/labs. Jennifer Alfonso APRN.CNP August 22, 2021 10:27 AM This note was partially generated using [employer] voice recognition system. Note was reviewed for accuracy. There may be minor misspellings or grammar miscues with [employer] voice recognition. documented in this encounter [facility] 08-05-2021 Instructions Lisa Heller APRN.CNP - 08/05/2021 2:15 PM EDT Please have cervical spine xray done before next appointment documented in this encounter [facility] 08-05-2021 History of Present illness Narrative This visit was conducted as a virtual visit. The patient verified that he was in the state of [place]. DATE: August 05, 2021 Chief Complaint: Neck Pain, Shoulder Pain History of Present Illness: Gerald Staley is a 61 year old year old male being seen at [facility] for a evaluation [...] HISTORY Diagnosis Date Abnormal EKG 04/23/2017 inf [place] age undetermined Colon polyps ED (erectile dysfunction) [...] activity was identified. 08/05/2021 by Lisa Heller APRN.WAREHOUSE DISTRIBUTION MANAGER PLAN: The patient understands the goal of [...] Have x-ray of cervical spine done at [facility] Consider PT for c-spine MRI Follow-up in [...] available F/U in 1 month. Lisa Heller APRN.JADA documented in this encounter [facility] 07-24-2021 History of Present illness Narrative Images from the original note were not included. Subjective The history is provided by the patient. No spanish language lecturer was used. SIMON Staley is a 61 year old male [...] HISTORY Diagnosis Date Abnormal EKG 04/23/2017 inf [place] age undetermined Colon polyps ED (erectile dysfunction) HTN (hypertension) Hypogonadism male 04/25/2010 Rectal bleed Shoulder pain pain management. I have confirmed and edited as necessary, the [facility] Review of Systems Constitutional: Negative for [...] Theresa Ortiz APRN.CNP documented in this encounter [facility] 07-24-2021 Instructions Theresa Ortiz APRN.CNP - 07/24/2021 11:02 AM EDT Notify pain management of treatment Naproxen 1 tablet twice a day as needed for food Flexeril 1/2 - 1 tablet every 8 hours as needed Stretches as discussed Follow up with PCP /pain management as needed documented in this encounter [facility] 06-19-2021 History of Present illness Narrative Images [...] up with his pain management provider at [facility]. They are evaluating him for carpal tunnel as well. Gerald shares that it hurts to get out [...] of support that he has from his manual arts teacher related to his should injury court settlement. [...] Congruent to mood Speech/Language: Appropriate tone, prosody, nona, phonetics, and syntax Thought Form: Goal-directed. No [...] which included preparing to see the patient, [id number] patient care, completing clinical documentation, and counseling and educating the patient/family/caregiver, ordering medications/labs. Jennifer Alfonso APRN.WAREHOUSE DISTRIBUTION MANAGER June 19, 2021 2:27 PM documented in this encounter [facility] 06-18-2021 Miscellaneous Notes PT has been scheduled [...] in to reschedule. documented in this encounter [facility] 06-07-2021 History of Past i llness Narrative Problem Noted Date Resolved Date Enlarged thoracic [...] of this encounter (statuses as of 03/03/2022) [facility] History of Past illness Narrative* Problem Noted [...] of this encounter (statuses as of 03/05/2022) [facility] History of Past illness Narrative* Problem Noted [...] of this encounter (statuses as of 03/29/2022) [facility] History of Past illness Narrative* Problem Noted [...] of this encounter (statuses as of 04/03/2022) [facility] History of Past illness Narrative* Problem Noted [...] of this encounter (statuses as of 04/03/2022) [facility] History of Past illness Narrative* Problem Noted [...] of this encounter (statuses as of 04/17/2022) [facility] History of Past illness Narrative* Problem Noted [...] of this encounter (statuses as of 04/24/2022) [facility] History of Past illness Narrative* Problem Noted [...] of this encounter (statuses as of 04/28/2022) [facility] History of Past illness Narrative* Problem Noted [...] of this encounter (statuses as of 05/06/2022) [facility] History of Past illness Narrative* Problem Noted [...] of this encounter (statuses as of 06/02/2022) [facility] History of Past illness Narrative* Problem Noted [...] of this encounter (statuses as of 06/02/2022) [facility] History of Past illness Narrative* Problem Noted [...] of this encounter (statuses as of 06/03/2022) [facility] History of Past illness Narrative* Problem Noted [...] of this encounter (statuses as of 06/03/2022) [facility] History of Past illness Narrative* Problem Noted [...] of this encounter (statuses as of 06/06/2022) [facility] Miscellaneous Notes* Telephone Encounter - Coral Chambers [...] AM EDT ----- Message from Lauren Steen APRN.CNP sent at 05/29/2021 5:02 PM EDT ----- Can please let patient know that I received the results of his ultrasound. It was normal. Lauren Steen APRN.CNP [facility] Miscellaneous Notes* Telephone Encounter - Adam Sutton [...] medication for his thyroid, pt uses [facility] in [place]. #2 Pt states he does not take tylenol. He drinks 3-5 beers usually twice weekly. Please notify pt when Rx has been sent in. Samanta Waldrop LPN * Telephone Encounter - Adam Sutton LPN - 05/28/2021 11:05 AM EDT TC to pt phone #, reached recording that stated "this facility is not available for this subscriber." TC to mobile number, spoke /c pt [...] other labs looked within normal. Lauren Steen APRN.CNP [facility] History of Past illness Narrative* Problem Noted [...] of this encounter (statuses as of 10/16/2021) [facility] History of Past illness Narrative* Problem Noted [...] of this encounter (statuses as of 10/28/2021) [facility] History of Past illness Narrative* Problem Noted [...] of this encounter (statuses as of 10/31/2021) [facility] History of Past illness Narrative* Problem Noted [...] of this encounter (statuses as of 11/05/2021) [facility] History of Past illness Narrative* Problem Noted [...] of this encounter (statuses as of 11/05/2021) [facility] History of Past illness Narrative* Problem Noted [...] of this encounter (statuses as of 11/06/2021) [facility] History of Past illness Narrative* Problem Noted [...] of this encounter (statuses as of 11/22/2021) [facility] History of Past illness Narrative* Problem Noted [...] of this encounter (statuses as of 12/04/2021) [facility] History of Past illness Narrative* Problem Noted [...] of this encounter (statuses as of 12/20/2021) [facility] History of Past illness Narrative* Problem Noted [...] of this encounter (statuses as of 01/06/2022) [facility] History of Past illness Narrative* Problem Noted [...] of this encounter (statuses as of 01/08/2022) [facility] History of Past illness Narrative* Problem Noted [...] of this encounter (statuses as of 01/08/2022) [facility] History of Past illness Narrative* Problem Noted [...] of this encounter (statuses as of 01/13/2022) [facility] History of Past illness Narrative* Problem Noted [...] of this encounter (statuses as of 01/14/2022) [facility] History of Past illness Narrative* Problem Noted [...] of this encounter (statuses as of 01/28/2022) [facility] History of Past illness Narrative* Problem Noted [...] of this encounter (statuses as of 02/05/2022) [facility] History of Past illness Narrative* Problem Noted [...] of this encounter (statuses as of 02/06/2022) [facility] History of Past illness Narrative* Problem Noted [...] of this encounter (statuses as of 02/09/2022) [facility] History of Past illness Narrative* Problem Noted [...] of this encounter (statuses as of 02/16/2022) [facility] History of Past illness Narrative* Problem Noted [...] of this encounter (statuses as of 07/01/2022) [facility]04[facility] History of Past illness Narrative* Problem Noted [...] of this encounter (statuses as of 08/12/2022) [facility] History of Past illness Narrative* Problem Noted [...] of this encounter (statuses as of 09/01/2022) [facility] History of Past illness Narrative* Problem Noted [...] of this encounter (statuses as of 10/01/2022) [facility] History of Past illness Narrative* Problem Noted [...] of this encounter (statuses as of 10/27/2022) [facility] History of Past illness Narrative* Problem Noted [...] of this encounter (statuses as of 10/30/2022) [facility] History of Past illness Narrative* Problem Noted [...] of this encounter (statuses as of 11/10/2022) [facility] History of Past illness Narrative* Problem Noted [...] of this encounter (statuses as of 11/28/2022) [facility] History of Past illness Narrative* Problem Noted [...] of this encounter (statuses as of 11/28/2022) [facility] History of Past illness Narrative* Problem Noted [...] of this encounter (statuses as of 12/03/2022) [facility] History of Past illness Narrative* Problem Noted [...] of this encounter (statuses as of 12/21/2022) [facility] History of Past illness Narrative* Problem Noted [...] of this encounter (statuses as of 12/21/2022) [facility] History of Past illness Narrative* Problem Noted [...] of this encounter (statuses as of 12/31/2022) [facility] History of Past illness Narrative* Problem Noted [...] of this encounter (statuses as of 12/31/2022) [facility] History of Past illness Narrative* Problem Noted [...] of this encounter (statuses as of 01/29/2023) [facility] History of Past illness Narrative* Problem Noted [...] of this encounter (statuses as of 03/31/2023) [facility] History of Past illness Narrative* Problem Noted [...] of this encounter (statuses as of 04/01/2023) [facility] History of Past illness Narrative* Problem Noted [...] of this encounter (statuses as of 04/01/2023) [facility] History of Past illness Narrative* Problem Noted [...] of this encounter (statuses as of 04/01/2023) [facility] History of Past illness Narrative* Problem Noted [...] as of this encounter (statuses as of 04/27/2023) [facility] History of Past illness Narrative* Problem Noted [...] as of this encounter (statuses as of 04/27/2023) [facility] History of Past illness Narrative* Problem Noted [...] as of this encounter (statuses as of 04/30/2023) [facility] History of Past illness Narrative* Problem Noted [...] as of this encounter (statuses as of 05/01/2023) [facility] History of Past illness Narrative* Problem Noted [...] as of this encounter (statuses as of 06/02/2023) [facility] History of Past illness Narrative* Problem Noted [...] as of this encounter (statuses as of 06/02/2023) [facility] History of Past illness Narrative* Problem Noted [...] of this encounter (statuses as of 05/18/2021) [facility] History of Past illness Narrative* Problem Noted [...] of this encounter (statuses as of 05/28/2021) [facility] History of Past illness Narrative* Problem Noted [...] of this encounter (statuses as of 05/30/2021) [facility] History of Past illness Narrative* Problem Noted [...] of this encounter (statuses as of 05/31/2021) [facility] History of Past illness Narrative* Problem Noted [...] of this encounter (statuses as of 06/14/2021) [facility] History of Past illness Narrative* Problem Noted [...] of this encounter (statuses as of 06/18/2021) [facility] History of Past illness Narrative* Problem Noted [...] of this encounter (statuses as of 06/21/2021) [facility] History of Past illness Narrative* Problem Noted [...] of this encounter (statuses as of 07/24/2021) [facility] History of Past illness Narrative* Problem Noted [...] of this encounter (statuses as of 08/01/2021) [facility] History of Past illness Narrative* Problem Noted [...] of this encounter (statuses as of 08/05/2021) [facility] History of Past illness Narrative* Problem Noted [...] of this encounter (statuses as of 08/23/2021) [facility] History of Past illness Narrative* Problem Noted [...] of this encounter (statuses as of 09/02/2021) [facility] History of Past illness Narrative* Problem Noted [...] of this encounter (statuses as of 09/04/2021) [facility] History of Past illness Narrative* Problem Noted [...] of this encounter (statuses as of 09/09/2021) [facility] History of Past illness Narrative* Problem Noted [...] of this encounter (statuses as of 09/23/2021) [facility] History of Past illness Narrative* Problem Noted [...] of this encounter (statuses as of 09/24/2021) [facility] History of Past illness Narrative* Problem Noted [...] of this encounter (statuses as of 09/24/2021) [facility] History of Past illness Narrative* Problem Noted [...] of this encounter (statuses as of 10/02/2021) [facility] History of Past illness Narrative* Problem Noted [...] of this encounter (statuses as of 10/08/2021) [facility] History of Past illness Narrative* Problem Noted [...] of this encounter (statuses as of 10/08/2021) [facility] Diagnosis Hypothyroidism, acquired- Primary Unspecified hypothyroidism Elevated liver enzymes Other nonspecific abnormal serum enzyme levels [facility]* Diagnosis Chest pain, unspecified type [facility] Diagnosis Bipolar 2 disorder (HCC)- Primary Other bipolar disorders JE (generalized anxiety disorder) Generalized anxiety disorder [facility] Diagnosis Strain of neck muscle, initial encounter- Primary [facility] Diagnosis Chronic pain syndrome- Primary Osteoarthritis of both shoulders, unspecified osteoarthritis type Neck pain Cervicalgia Rotator cuff impingement syndrome, unspecified laterality documented [facility] this [facility] Diagnosis Bipolar 2 disorder (HCC)- Primary Other bipolar disorders JE (generalized anxiety disorder) Generalized anxiety disorder [facility] Diagnosis Chronic pain syndrome- Primary Cervicalgia Osteoarthritis of both shoulders, unspecified osteoarthritis type Rotator cuff syndrome, unspecified laterality Neck pain Cervicalgia Rotator cuff impingement syndrome, unspecified laterality Obesity, Class II, BMI 35-39.9 Obesity, unspecified [facility] this [facility] noteNo assessment information availableW[facility] Health Work Phone: Evaluation note* Diagnosis Essential hypertension- Primary Unspecified essential hypertension [facility] Diagnosis Chronic pain syndrome- Primary Cervicalgia Rotator cuff impingement syndrome, unspecified laterality Osteoarthritis of both shoulders, unspecified osteoarthritis type Rotator cuff syndrome, unspecified laterality Neck pain Cervicalgia [facility]* Diagnosis Hypothyroidism, acquired Unspecified hypothyroidism [facility] Diagnosis Chest pain, unspecified type- Primary Subclinical hypothyroidism Other specified acquired hypothyroidism GERD without esophagitis Esophageal reflux [facility] Diagnosis Acute bilateral thoracic back pain- Primary COVID-19 documented in this encounter [facility] Phone: Evaluation note* Diagnosis High risk medications (not anticoagulants) long-term use- Primary Encounter for long-term (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 of other medications [facility]* Diagnosis Other acute pulmonary embolism without acute cor pulmonale (HCC)- Primary Essential hypertension, benign Chronic chest pain Chest pain, unspecified Lightheaded Dizziness and giddiness Bipolar affective disorder, remission status unspecified (HCC) GERD without esophagitis Esophageal reflux documented in this encounter [facility] note* Diagnosis Constipation due to opioid therapy- Primary Chronic pain syndrome Rotator cuff impingement syndrome, unspecified laterality Osteoarthritis of both shoulders, unspecified osteoarthritis type Neck pain Cervicalgia documented in this encounter [facility] note* Diagnosis Chronic pain syndrome Rotator cuff impingement syndrome, unspecified laterality Osteoarthritis of both shoulders, unspecified osteoarthritis type Neck pain Cervicalgia documented in this encounter [facility] note* Diagnosis Rotator cuff impingement syndrome, unspecified laterality- Primary Osteoarthritis of both shoulders, unspecified osteoarthritis type Neck pain Cervicalgia Rotator cuff syndrome, unspecified laterality Cervicalgia High risk medications (not anticoagulants) long-term use Encounter for long-term (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 of other medications Constipation due to opioid therapy Chronic pain syndrome Osteoarthritis of both shoulders, unspecified osteoarthritis type Chronic pain syndrome documented in this encounter [facility] note* Diagnosis Hypocalcemia- Primary Osteoarthritis of both shoulders, unspecified osteoarthritis type Chronic pain syndrome documented in this encounter [facility] note* Diagnosis Elevated liver enzymes- Primary Other nonspecific abnormal serum enzyme levels Osteoarthritis of both shoulders, unspecified osteoarthritis type Chronic pain syndrome documented in this encounter [facility] note* Diagnosis Rotator cuff impingement syndrome, unspecified laterality Osteoarthritis of both shoulders, unspecified osteoarthritis type Neck pain Cervicalgia Chronic pain syndrome Osteoarthritis of both shoulders, unspecified osteoarthritis type Chronic pain syndrome documented in this encounter [facility] note* Diagnosis SOB (shortness of breath) Shortness of breath Osteoarthritis of both shoulders, unspecified osteoarthritis type Chronic pain syndrome documented in this encounter [facility] note* Diagnosis SOB (shortness of breath) Shortness of breath Osteoarthritis of both shoulders, unspecified osteoarthritis type Chronic [facility] syndrome [facility] Epigastric pain- Primary Abdominal pain, epigastric Internal hemorrhoids Internal hemorrhoids without mention of complication Rectal bleeding Hemorrhage of rectum and anus Nausea Nausea alone Osteoarthritis of both shoulders, unspecified osteoarthritis type Chronic pain syndrome [facility] Diagnosis Other cervical disc degeneration, unspecified cervical region- Primary Osteoarthritis of both shoulders, unspecified osteoarthritis type Chronic pain syndrome High risk medication use Encounter for long-term (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 of other medications Rotator cuff impingement syndrome, unspecified laterality Neck pain Cervicalgia Osteoarthritis of both shoulders, unspecified osteoarthritis type Chronic pain syndrome [facility] this [facility] Diagnosis Liver lesion Other specified disorders of liver documented [facility] this [facility] Diagnosis Elevated liver enzymes- Primary Other nonspecific abnormal serum enzyme levels [facility] this [facility] Diagnosis Essential hypertension- Primary Unspecified essential [...] this encounter [facility] Diagnosis Osteoarthritis of both shoulders, unspecified osteoarthritis type Chronic pain syndrome Rotator cuff impingement syndrome, unspecified laterality Neck pain Cervicalgia documented [facility] this encounter [facility] Diagnosis Mild cognitive impairment with memory loss- Primary Mild cognitive impairment, so stated 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 [facility] Diagnosis Bipolar 2 disorder (HCC)- Primary Other bipolar disorders JE (generalized anxiety disorder) Generalized anxiety disorder [facility] this [facility] Diagnosis Osteoarthritis of both shoulders, unspecified osteoarthritis type Chronic pain syndrome Rotator cuff impingement syndrome, unspecified laterality Neck pain Cervicalgia documented in this [facility]* Diagnosis Essential hypertension- Primary Unspecified essential hypertension GERD without esophagitis Esophageal reflux Mild cognitive impairment with memory loss Mild cognitive impairment, so stated Other acute pulmonary embolism without acute cor pulmonale (HCC) documented [facility] this [facility] Diagnosis Memory loss- Primary Mild cognitive impairment with memory loss Mild cognitive impairment, so stated [facility]* Diagnosis High risk medication use- Primary Encounter for long-term (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 of other medications Osteoarthritis of both shoulders, unspecified osteoarthritis type Chronic pain syndrome Rotator cuff impingement syndrome, unspecified laterality Other cervical disc degeneration, unspecified cervical region [facility] this encounter [facility] Diagnosis Memory loss documented [facility] this [facility] Diagnosis Memory loss- Primary documented in this encounter [facility]* Diagnosis Anal bleeding- Primary Hemorrhage of rectum and anus Drug induced constipation History of colonic polyps Personal history of colonic polyps documented [facility] this [facility] Diagnosis Osteoarthritis of both shoulders, unspecified osteoarthritis type Chronic pain syndrome Rotator cuff impingement syndrome, unspecified laterality documented [facility] this encounter [facility] Diagnosis Osteoarthritis of both shoulders, unspecified osteoarthritis type Chronic pain syndrome Rotator cuff impingement syndrome, unspecified laterality documented [facility] this [facility]* Diagnosis Aorta disorder (HCC)- Primary Unspecified disorders of arteries and arterioles Primary hypertension Unspecified essential hypertension Other forms of angina pectoris (HCC) documented [facility] this [facility] Diagnosis Rectal bleeding- Primary Hemorrhage of rectum and anus Pruritus ani documented in this encounter [facility]* Diagnosis Chronic pain syndrome documented [facility] this [facility]* Diagnosis High risk medication use- Primary Encounter for long-term (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 of other medications Cervicalgia Other cervical disc degeneration, unspecified cervical region Chronic pain syndrome Cervical radiculopathy Brachial neuritis or radiculitis nos Myofascial pain syndrome Mylagia and myositis, unspecified documented [facility] this [facility] Diagnosis Chronic pain syndrome documented in this encounter [facility] Diagnosis Chronic pain syndrome documented in this encounter [facility]* Diagnosis Aorta disorder (HCC)- Primary Unspecified disorders of arteries and arterioles Essential hypertension, benign Subclinical hypothyroidism Other specified acquired hypothyroidism Hyperlipidemia, unspecified hyperlipidemia type documented in this encounter [facility]* Diagnosis Mild cognitive impairment with memory loss Mild cognitive impairment, so stated Cognitive impairment, mild, so stated Mild cognitive impairment, so stated Headache, unspecified headache type documented in this encounter [facility] note* Diagnosis Elevated liver enzymes Other nonspecific abnormal serum enzyme levels documented in this encounter [facility] note* Diagnosis Chronic pain syndrome [facility] Diagnosis Chronic pain syndrome [facility]* Diagnosis Other chronic pain- Primary detention (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 of opiate analgesic Other cervical disc degeneration, unspecified cervical region Osteoarthritis of both shoulders, unspecified osteoarthritis type Myofascial pain syndrome Mylagia and myositis, unspecified Chronic pain syndrome documented in this encounter [facility] note* Diagnosis Chronic pain syndrome documented in this encounter [facility] note* Diagnosis Other chronic pain- 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 Other cervical disc degeneration, unspecified cervical region Osteoarthritis of both shoulders, unspecified osteoarthritis type Myofascial pain syndrome Mylagia and myositis, unspecified Cervicalgia Chronic pain syndrome documented in this encounter [facility] note* Diagnosis Other chronic pain- Primary detention (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 of opiate analgesic Other cervical disc degeneration, unspecified cervical region Osteoarthritis of both shoulders, unspecified osteoarthritis type Chronic pain syndrome Osteoarthritis of both shoulders, unspecified osteoarthritis type documented in this encounter [facility] note* Diagnosis Other chronic pain- Primary detention (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 of opiate analgesic Other cervical disc degeneration, unspecified cervical region Osteoarthritis of both shoulders, unspecified osteoarthritis type Myofascial pain syndrome Mylagia and myositis, unspecified Chronic pain syndrome [facility]* Diagnosis Chronic pain syndrome [facility]* Diagnosis Other chronic pain- Primary detention (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 of opiate analgesic Osteoarthritis of both shoulders, unspecified osteoarthritis type Myofascial pain syndrome Mylagia and myositis, unspecified Other cervical disc degeneration, unspecified cervical region Chronic pain syndrome documented in this encounter [facility] note* Diagnosis Epigastric pain- Primary Abdominal pain, epigastric Rectal bleeding Hemorrhage of rectum and anus Internal hemorrhoids Internal hemorrhoids without mention of complication Abdominal bloating Flatulence, eructation, and gas pain documented in this encounter [facility] note* Diagnosis Anal bleeding Hemorrhage of rectum and anus Drug induced constipation [facility] Diagnosis Acute cough [facility] this [facility] Diagnosis Bilateral upper abdominal pain- Primary Abdominal pain, right upper quadrant Diarrhea, unspecified type History of colonic polyps Personal history of colonic polyps External hemorrhoids External hemorrhoids without mention of complication Other chronic pain- 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 Osteoarthritis of both shoulders, unspecified osteoarthritis type Myofascial pain syndrome Mylagia and myositis, unspecified Other cervical disc degeneration, unspecified cervical region [facility] Diagnosis Bilateral upper abdominal pain Abdominal pain, right upper quadrant documented in this [facility] Diagnosis Liver lesion- Primary Other specified disorders of liver documented [facility] this [facility] Diagnosis Anal fissure- Primary Internal and external hemorrhoids without complication Internal hemorrhoids without mention of complication [facility] Diagnosis Anal fissure- Primary Anal fissure documented [facility] this [facility]* Diagnosis Liver lesion Other specified disorders of liver Anal fissure [facility] Diagnosis Bilateral upper abdominal pain Abdominal pain, right upper quadrant Anal fissure documented in this encounter [facility]* Diagnosis Essential hypertension, benign Anal fissure documented in this encounter [facility]* Diagnosis Anal fissure- Primary Anal fissure S/P hemorrhoidectomy Other postprocedural status Pre-op exam Preoperative examination, unspecified Alcohol use Hypothyroidism Unspecified hypothyroidism Other pulmonary embolism without acute cor pulmonale (HCC) documented in this encounter [facility]* Diagnosis Internal and external hemorrhoids without complication- Primary Internal hemorrhoids without mention of complication documented in this encounter [facility]* Diagnosis Generalized abdominal pain- Primary Abdominal pain, generalized Rectal bleeding Hemorrhage of rectum and anus Internal hemorrhoids Internal hemorrhoids without mention of complication Diarrhea, unspecified type documented in this encounter [facility]* Diagnosis Helicobacter pylori infection- Primary Helicobacter pylori (H. pylori) documented in this encounter [facility]* Diagnosis Essential hypertension, benign documented in this encounter [facility]* Diagnosis Essential hypertension, benign- Primary Encounter for immunization Need for other specified prophylactic vaccination against single bacterial disease Hyperlipidemia, unspecified hyperlipidemia type Mild cognitive impairment with memory loss Mild cognitive impairment, so stated Other acute pulmonary embolism without acute cor pulmonale (HCC) Aorta disorder (HCC) Unspecified disorders of arteries and arterioles Hypothyroidism, unspecified type Other cervical disc degeneration, unspecified cervical region Recurrent major depression in partial remission (HCC) Major depressive disorder, recurrent episode, in partial or unspecified remission Bipolar 2 disorder (HCC) Other bipolar disorders Obesity, Class I, BMI 30-34.9 Obesity, unspecified Fatty liver Other chronic nonalcoholic liver disease Screening for prostate cancer Special screening for malignant neoplasm of prostate documented in this encounter [facility] for referral (narrative)* Diagnostic Procedure Only (Routine) - Closed Specialty Diagnoses / Procedures Referred By Contac t Referred To Contact US IMAGING Diagnoses Chest pain, unspecified type Procedures US SCREENING FOR AAA (2017) US ABDOMINAL AORTA REAL TIME SCREEN STUDY AAA Laruen Steen APRN.CNP [address] [place] [address] Us Imaging Referral ID Status Reason Start Date Expiration Date V isits Requested Visits Authorized [id number] Closed Auto-Generate d Referral 05/27/2021 06/26/2022 1 1 [facility] for referral (narrative)* Diagnostic Procedure Only (Routine) - Pending Review Specialty Diagnoses / Procedures Referred By Contac t Referred To Contact US IMAGING Diagnoses Elevated liver enzymes Procedures US ABD RT UPPER QUADRANT US ABDOMINAL REAL TIME W/IMAGE LIMITED Errol Cary MD [address] [place] [address] Us Imaging Referral ID Status Reason Start Date Expiration Date Visits Requested Visits Authorized [id number] Pending Review Auto-Generat ed Referral 2 02/06/2023 1 1 [facility] for referral (narrative)* Diagnostic Procedure Only (Routine) - Pending Review Specialty Diagnoses / Procedures Referred By Contac t Referred To Contact XR IMAGING Diagnoses Other cervical disc degeneration, unspecified cervical region Procedures XR CERV OTHER 4V AP/LAT/FLX/EXT RADEX SPINE CERVICAL 4 OR 5 VIEWS Bill Foley, KARI.ELEMENTARY EDUCATION TUTOR [address] [place] [address] Xr Imaging Referral ID Status Reason Start Date Expiration Date Visits Requested Visits Authorized [id number] Pending Review Auto-Generat ed Referral 04/28/2022 05/28/2023 1 1 [facility] for referral (narrative)* Outpatient Procedure (Routine) - Pending Review Specialty Diagnoses / Procedures Referred By Contac t Referred To Contact [facility] Diagnoses Anal bleeding Drug induced constipation Procedures COLONOSCOPY DIAGNOSTIC COLONOSCOPY FLX DX W/COLLJ SPEC WHEN PFRMGia Medina PA-C [address] [place] [address] [facility] [place] [address] [place] [address] Referral ID Status Reason Start Date Expiration Date Visits Requested Visits Authorized [id number] Pending Review Auto-Generat ed Referral 06/02/2022 06/03/2023 1 1 [facility] for referral (narrative)* Outpatient Procedure (Routine) - Pending Review Specialty Diagnoses / Procedures Referred By Contac t Referred To Contact [facility] Diagnoses Aorta disorder (HCC) Procedures ECG COMPLETE ECG ROUTINE ECG W/LEAST 12 LDS W/I&R Yonathan Barajas MD [address] [place] [address] [facility] [place] [address] [place] [address] Referral ID Status Reason Start Date Expiration Date Visits Requested Visits Authorized [id number] Pending Review Auto-Generat ed Referral 06/30/2022 06/30/2023 1 1 [facility] for referral (narrative)* Outpatient Procedure (Routine) - Pending Review Specialty Diagnoses / Procedures Referred By Contac t Referred To Contact [facility] [place] Diagnoses Aorta disorder (HCC) Procedures ECHO ECHO TTHRC R-T 2D W/WOM-MODE COMPL SPEC&COLR D Lauren Steen APRN.WAREHOUSE DISTRIBUTION MANAGER [address] [place] [address] [facility] [place] [address] [place] [address] Referral ID Status Reason Start Date Expiration Date Visits Requested Visits Authorized [id number] Pending Review Auto-Generat ed Referral 12/03/2023 1 1 [facility] for referral (narrative)* Diagnostic Procedure Only (Routine) - Closed Specialty Diagnoses / Procedures [facility] To [facility] Diagnoses Elevated liver enzymes Procedures US ABD RT UPPER QUADRANT US ABDOMINAL REAL TIME W/IMAGE LIMITED Errlo Cary MD [address] [place] [address] [place] [address] Referral ID Status Reason Start Date Expiration Date V isits Requested Visits Authorized [id number] Closed Auto-Generate d Referral 01/07/2022 02/06/2023 1 1 [facility] for referral (narrative)* Outpatient Procedure (Routine) - Closed Specialty Diagnoses / Procedures [facility] Referred To Contact [facility] Diagnoses Anal bleeding Drug induced constipation Procedures COLONOSCOPY DIAGNOSTIC COLONOSCOPY FLX DX W/COLLJ SPEC WHEN PFRMD Gia Ventura PA-C [address] [place] [address] [facility] [address] [place] [address] Referral ID Status Reason Start Date Expiration Date V isits Requested Visits Authorized [id number] Closed Auto-Generate d Referral 06/02/2022 06/03/2023 1 1 [facility] for referral (narrative)* Diagnostic Procedure Only (Routine) - New Request Specialty Diagnoses / Procedures Referred By Contac t Referred To Contact XR IMAGING Diagnoses Diarrhea, unspecified type Procedures XR ABDOMEN 1V SUPINE RADIOLOGIC EXAM ABDOMEN 1 VIEW Gia Ventura PA-C [address] [place] [address] [place] [address] Referral ID Status Reason Start Date Expiration Date Visits Requested Visits Authorized [id number] New Request Auto-Generat ed Referral 11/25/2023 12/24/2024 1 1 * Diagnostic Procedure Only (Routine) - Authorized Specialty Diagnoses / Procedures Referred By Samia t Referred To Contact US IMAGING Diagnoses Bilateral upper abdominal pain Procedures US ABD RIGHT UPPER QUADRANT US ABDOMINAL REAL TIME W/IMAGE LIMITED Gia Ventura PA-C [address] [place] [address] [place] [address] Referral ID Status Reason Start Date Expiration Date Visits Requested Visits Authorized [id number] Authorized Auto-Generat ed Referral 11/25/2023 12/24/2024 1 1 * Outpatient Procedure (Routine) - New Request Specialty Diagnoses / Procedures Referred By Samia t Referred To Contact [facility] Diagnoses Bilateral upper abdominal pain Procedures EGD DIAGNOSTIC ESOPHAGOGASTRODUODENOS COPY TRANSORAL DIAGNOSTIC Gia Ventura PA-C [address] [place] [address] [facility] [place] [address] [place] [address] Referral ID Status Reason Start Date Expiration Date Visits Requested Visits Authorized [id number] New Request Auto-Generat ed Referral 11/25/2023 11/24/2024 1 1 [facility] for referral (narrative)* Outpatient Procedure (Routine) - Closed Specialty Diagnoses / Procedures Referred By Contac t Referred To Contact [facility] Diagnoses Bilateral upper abdominal pain Procedures EGD DIAGNOSTIC ESOPHAGOGASTRODUODENOS COPY TRANSORAL DIAGNOSTIC Gia Ventura PA-C [address] [place] [address] [facility] [place] [address] [place] [address] Referral ID Status Reason Start Date Expiration Date V isits Requested Visits Authorized [id number] Closed Auto-Generate d Referral 01/05/2024 02/16/2024 1 1 [facility] for visit Narrative* Diagnostic Procedure Only (Routine) - Closed Specialty Diagnoses / Procedures [facility] To [facility] US IMAGING Diagnoses Chest pain, unspecified type Procedures US SCREENING FOR AAA (2017) US ABDOMINAL AORTA REAL TIME SCREEN STUDY AAA Lauren Steen APRN.WAREHOUSE DISTRIBUTION MANAGER [address] [place] [address] Us Imaging Referral ID Status Reason Start Date Expiration Date V isits Requested Visits Authorized [id number] Closed Auto-Generate d Referral 05/27/2021 06/26/2022 1 1 [facility] for visit Narrative* Diagnostic Procedure Only (Routine) - Closed Specialty Diagnoses / Procedures [facility] Referred To Contact MOLECULAR & FUNCTIONAL IMAGING Diagnoses ACS (acute coronary syndrome) (HCC) Chest pain, unspecified type Procedures NM CARDIAC PERF STRESS/PHARM MYOCARDIAL SPECT MULTIPLE STUDIES Lauren Steen, KARI.WAREHOUSE DISTRIBUTION MANAGER [address] [place] [address] [facility] [address] [place] [address] Referral ID Status Reason Start Date Expiration Date Visits Re quested Visits Authorized [id number] Closed 09/23/2021 10/23/2021 1 1 [facility] for visit Narrative* Outpatient Procedure (Routine) - Closed Specialty Diagnoses / Procedures [facility] Referred To Contact ENDOS[facility] Diagnoses Anal bleeding Drug induced constipation Procedures COLONOSCOPY DIAGNOSTIC COLONOSCOPY FLX DX W/COLLJ SPEC WHEN PFRMD Gia Ventura PA-C [address] [place] [address] [facility] [address] [place] [address] Referral ID Status Reason Start Date Expiration Date V isits Requested Visits Authorized [id number] Closed Auto-Generate d Referral 06/02/2022 06/03/2023 1 1 [facility] for visit Narrative* Diagnostic Procedure Only (Routine) - Closed Specialty Diagnoses / Procedures Referred By Gabiac t Referred To Contact US IMAGING Diagnoses Bilateral upper abdominal pain Procedures US ABD RIGHT UPPER QUADRANT US ABDOMINAL REAL TIME W/IMAGE LIMITED Gia Ventura PA-C [address] [place] [address] [place] [address] Referral ID Status Reason Start Date Expiration Date V isits Requested Visits Authorized [id number] Closed Auto-Generate d Referral 11/25/2023 12/24/2024 1 1 [facility] for visit Narrative* Outpatient Procedure (Routine) - Closed Specialty Diagnoses / Procedures Referred By Contac t Referred To Contact [facility] Diagnoses Bilateral upper abdominal pain Procedures EGD DIAGNOSTIC ESOPHAGOGASTRODUODENOS COPY TRANSORAL DIAGNOSTIC Gia Ventura PA-C [address] [place] [address] [facility] [address] [place] [address] Referral ID Status Reason Start Date Expiration Date V isits Requested Visits Authorized [id number] Closed Auto-Generate d Referral 01/05/2024 02/16/2024 1 1 [facility] for visit Narrative* Consult, Test, Treat (Routine) - Closed Specialty Diagnoses / Procedures Referred By Samia t Referred To Contact General Surgery Diagnoses Rectal bleeding Internal hemorrhoids Procedures CONSULT TO GENERAL SURGERY OFFICE/OUTPATIENT [facility] 60 MINUTES Yakov Etienne MD [address] [place] [address] Phone: tel: fax: Nahun Gustafson MD [address] [place] [address] Phone: tel: fax: Referral ID Status Reason Start Date Expiration Date V isits Requested Visits Authorized [id number] Closed PCP Requested Referral 10/05/2023 10/04/2024 1 1 [facility] Summary Purpose Family History No Family History Records FoundNo Family History Records FoundNo Family History Records FoundNo Family History Records FoundNo Family History Records FoundNo Family History Records FoundNo Family History Records FoundNo Family History Records FoundNo Family History Records FoundNo Family History Records Found Advance Directives No Advanced Directives Records FoundDocuments on File Type Date Recorded Patient Physical Therapy Assistant Instructor Expl anation Advance Directive(s) 06/27/2020 7:18 AM Advance Directive(s) 01/09/2020 8:46 AM Advance Directive(s) 05/25/2018 10:46 AM Advance Directive(s) 10/13/2016 5:55 AM Advance Directive(s) 05/30/2016 12:01 PM Documents on File Type Date Recorded Patient Physical Therapy Assistant Instructor Expl anation Advance Directive(s) 05/28/2021 6:35 PM Advance Directive(s) 06/27/2020 7:18 AM Advance Directive(s) 01/09/2020 8:46 AM Advance Directive(s) 05/25/2018 10:46 AM Advance Directive(s) 10/13/2016 5:55 AM Advance Directive(s) 05/30/2016 12:01 PM Documents on File Type Date Recorded Patient Physical Therapy Assistant Instructor Expl anation Advance Directive(s) 05/28/2021 6:35 PM Advance Directive(s) 06/27/2020 7:18 AM Advance Directive(s) 01/09/2020 8:46 AM Advance Directive(s) 05/25/2018 10:46 AM Advance Directive(s) 10/13/2016 5:55 AM Advance Directive(s) 05/30/2016 12:01 PM Advance Directive Response Recorded Date/ Time Living Will No May 02, 2021 12:07pm Power of Manager Utility No May 02 12:07pm Advance Directive Response Recorded Date/ Time Living Will No October 08 3:33pm Power of Manager Utility No October 08 3:33pm Advance Directive Response Recorded Date/ Time Name of Medical Power of Manager Utility LOKESH- October 21, 2021 8:59am Living Will Yes October 21 8:59am Power of Manager Utility Yes October 21, 2021 8:59am Latest Code Status on File Code Status Date Activated Date Inactivated Comments Full Code 10/22/2021 7:37 AM Advance Directive Response Recorded Date/ Time Living Will No April 25, 2023 1:52pm Power of Manager Utility No April 24 1:52pm Reason for Referral Specialty Diagnoses / Procedures Referred By Contac t Referred To Contact [facility] Diagnoses Chronic pain syndrome Cervicalgia Procedures CONSULT TO PHYSICAL THERAPY [facility] 45 MINS Lisa Heller APRN.WAREHOUSE DISTRIBUTION MANAGER [address] [place] [address] [facility] [place] [address] [place] [address] Referral ID Status Reason Start Date Expiration Date Visits Requested Visits Authorized [id number] Pending Review Auto-Generat ed Referral 09/09/2021 09/09/2022 1 1 Specialty Diagnoses / Procedures Referred By Contac t Referred To Contact Cardiology Diagnoses Chronic chest pain Procedures CONSULT TO CARDIOLOGY OFFICE/OUTPATIENT [facility] MDM 60-74 MINUTES Errol Cary MD [address] [place] [address] Referral ID Status Reason Start Date Expiration Date Visits Requested Visits Authorized [id number] Pending Review PCP Requested Referral 11/04/2021 11/04/2022 1 1 Specialty Diagnoses / Procedures Referred By Contac t Referred To Contact Diagnoses Constipation due to opioid therapy Lisa Heller APRN.WAREHOUSE DISTRIBUTION MANAGER [address] [place] [address] Referral ID Status Reason Start Date Expiration Date Visits Re quested Visits Authorized [id number] Denied 1 1 Specialty Diagnoses / Procedures Referred By Contac t Referred To Contact MR IMAGING Diagnoses Liver lesion Procedures MRI LIVER WO/W IVCON MRI ABDOMEN W/O & W/CONTRAST MATERIAL Errol Cary MD [address] [place] [address] Mr Imaging Referral ID Status Reason Start Date Expiration Date V isits Requested Visits Authorized [id number] Closed Auto-Generate d Referral 02/05/2022 03/07/2022 1 1 Specialty Diagnoses / Procedures Referred By Contac t Referred To Contact Cardiology Diagnoses Aorta disorder (HCC) Procedures CONSULT TO CARDIOLOGY OFFICE/OUTPATIENT [facility] 60-74 MINUTES Errol Cary MD [address] [place] [address] Referral ID Status Reason Start Date Expiration Date Visits Requested Visits Authorized [id number] Pending Review PCP Requested Referral 03/03/2022 03/03/2023 1 1 Specialty Diagnoses / Procedures Referred By Contac t Referred To Contact MR IMAGING Diagnoses Mild cognitive impairment with memory loss Cognitive impairment, mild, so stated Headache, unspecified headache type Procedures MRI BRAIN WO IVCON MRI BRAIN BRAIN STEM W/O CONTRAST MATERIAL Errol Cary MD [address] [place] [address] Mr Imaging Referral ID Status Reason Start Date Expiration Date Visits Requested Visits Authorized [id number] Pending Review Auto-Generat ed Referral 03/03/2022 04/02/2023 1 1 Specialty Diagnoses / Procedures Referred By Contac t Referred To Contact Neurology Diagnoses Cavernous hemangioma of brain (HCC) Mild cognitive impairment with memory loss Procedures CONSULT TO NEUROLOGY OFFICE/OUTPATIENT [facility] 60-74 MINUTES Errol Cary MD [address] [place] [address] Referral ID Status Reason Start Date Expiration Date Visits Requested Visits Authorized [id number] Pending Review PCP Requested Referral 03/28/2022 03/28/2023 1 1 Specialty Diagnoses / Procedures Referred By Contac t Referred To Contact General Surgery Diagnoses GERD without esophagitis Procedures CONSULT TO GENERAL SURGERY OFFICE/OUTPATIENT [facility] 60-74 MINUTES Errol Cary MD [address] [place] [address] Referral ID Status Reason Start Date Expiration Date Visits Requested Visits Authorized [id number] Pending Review PCP Requested Referral 04/16/2022 04/16/2023 1 1 Specialty Diagnoses / Procedures Referred By Contac t Referred To Contact [facility] Diagnoses Memory loss Procedures CONSULT TO SPEECH THERAPY OFFICE/OUTPATIENT [facility] MDM 60-74 MINUTES Susan Saucedo MD [address] [place] [address] [facility] [address] [address] Referral ID Status Reason Start Date Expiration Date Visits Requested Visits Authorized [id number] Pending Review Auto-Generat ed Referral 04/15/2022 04/15/2023 1 1 Specialty Diagnoses / Procedures Referred By Contac t Referred To Contact [facility] Diagnoses Mild cognitive impairment with memory loss Procedures EPIL EEG ROUTINE ELECTROENCEPHALOGRAM REC COMA/SLEEP ONLY Susan Saucedo MD [address] [place] [address] [address] Referral ID Status Reason Start Date Expiration Date Visits Requested Visits Authorized [id number] Authorized Auto-Generat ed Referral 04/15/2022 04/15/2023 1 1 Specialty Diagnoses / Procedures Referred By Contac t Referred To Contact [facility] Diagnoses Memory loss Procedures SPEECH REHAB FOLLOW UP ORDER TX SPEECH LANG VOICE COMMJ &/AUDITORY PROC IND Speech [facility] [address] [place] [address] [address] Referral ID Status Reason Start Date Expiration Date Visits Requested Visits Authorized [id number] Pending Review PCP Requested Referral Auto-Generate d Referral 05/06/2022 08/04/2022 1 1 Specialty Diagnoses / Procedures Referred By Contac t Referred To Contact [facility] Diagnoses Cervicalgia Other cervical disc degeneration, unspecified cervical region Chronic pain syndrome Cervical radiculopathy Myofascial pain syndrome Procedures CONSULT TO PHYSICAL THERAPY PHYSICAL THERAPY EVALUATION HIGH COMPLEX 45 MINS Allie Ceballos, DO [address] [place] [address] [facility] [place] [address] [place] [address] Referral ID Status Reason Start Date Expiration Date Visits Requested Visits Authorized [id number] Pending Review Auto-Generat ed Referral 11/10/2022 11/10/2023 1 1 Specialty Diagnoses / Procedures Referred By Contac t Referred To Contact MR IMAGING Diagnoses Mild cognitive impairment with memory loss Cognitive impairment, mild, so stated Headache, unspecified headache type Procedures MRI BRAIN WO IVCON MRI BRAIN BRAIN STEM W/O CONTRAST MATERIAL Errol Cary MD [address] [place] [address] [place] [address] Referral ID Status Reason Start Date Expiration Date V isits Requested Visits Authorized [id number] Closed Auto-Generate d Referral 03/03/2022 04/02/2023 1 1 Specialty Diagnoses / Procedures Referred By Contac t Referred To Contact General Surgery Diagnoses Rectal bleeding Internal hemorrhoids Procedures CONSULT TO GENERAL SURGERY OFFICE/OUTPATIENT [facility] 60 MINUTES Yakov Etienne MD [address] [place] [address] Nahun Gustafson MD [address] [place] [address] Referral ID Status Reason Start Date Expiration Date Visits Requested Visits Authorized [id number] Authorized PCP Requested Referral 10/05/2023 10/04/2024 1 1 Specialty Diagnoses / Procedures Referred By Contac t Referred To Contact Gastroenterology Diagnoses Epigastric pain Abdominal bloating Procedures CONSULT TO GASTROENTEROLOGY OFFICE/OUTPATIENT [facility] MDM 60 MINUTES Yakov Etienne MD [address] [place] [address] Gia Ventura PA-C [address] [facility] [place] [address] Referral ID Status Reason Start Date Expiration Date Visits Requested Visits Authorized [id number] Authorized PCP Requested Referral 10/05/2023 10/04/2024 1 1 Specialty Diagnoses / Procedures Referred By Contac t Referred To Contact MR IMAGING Diagnoses Liver lesion Procedures MRI LIVER WO/W IVCON MRI ABDOMEN W/O & W/CONTRAST MATERIAL Gia Ventura PA-C [address] [facility] [place] [address] [place] [address] Referral ID Status Reason Start Date Expiration Date Visits Requested Visits Authorized [id number] Pending Review Auto-Generat ed Referral 12/31/2024 1 1 Chief Complaint and Reason for Visit Chief Complaint CHEST PAIN Chief Complaint CHEST PAIN chest pain Chief Complaint SOB Health Concerns Infection Onset Date Last Indicated [...] ized section and content) DATE CREATED AUTHOR 08/06/2017 [facility] DATE CREATED AUTHOR AUTHOR'S ORGANIZ ATION 07/11/2021 [facility] DATE CREATED AUTHOR AUTHOR'S ORGANIZ ATION 11/16/2021 [facility] DATE CREATED AUTHOR AUTHOR'S ORGANIZ ATION 11/16/2021 [facility] DATE CREATED AUTHOR AUTHOR'S ORGANIZ ATION 11/16/2021 [facility] DATE CREATED AUTHOR AUTHOR'S ORGANIZ ATION 07/26/2022 [facility] DATE CREATED AUTHOR AUTHOR'S ORGANIZ ATION 11/28/2023 [facility] DATE CREATED AUTHOR AUTHOR'S ORGANIZ ATION 02/08/2024 [facility] DATE CREATED AUTHOR AUTHOR'S ORGANIZ ATION 05/13/2024 [facility] DATE CREATED AUTHOR AUTHOR'S ORGANIZ ATION 08/31/2024 [facility] Source Comments (unrecognize d section and content) In the event this informatio n is protected by the Federal Confidentiality of Alcohol and Drug Abuse Patient Records regulations: The Federal rules restrict any use of the information to criminally investigate or prosecute any alcohol or drug abuse patient.[facility] the event this information is protected by the Federal Confidentiality of Alcohol and Drug Abuse Patient Records regulations: The Federal rules restrict any use of the information to criminally investigate or prosecute any alcohol or drug abuse patient.[facility] [place] the event this information is protected by the Federal Confidentiality of Alcohol and Drug Abuse Patient Records regulations: The Federal rules restrict any use of the information to criminally investigate or prosecute any alcohol or drug abuse patient.[facility] [place]In the event this information is protected by the Federal Confidentiality of Alcohol and Drug Abuse Patient Records regulations: The Federal rules restrict any use of the information to criminally investigate or prosecute any alcohol or drug abuse patient.[facility] [place]In the event this information is protected by the Federal Confidentiality of Alcohol and Drug Abuse Patient Records regulations: The Federal rules restrict any use of the information to criminally investigate or prosecute any alcohol or drug abuse patient.[facility] [place]In the event this information is protected by the Federal Confidentiality of Alcohol and Drug Abuse Patient Records regulations: The Federal rules restrict any use of the information to criminally investigate or prosecute any alcohol or drug abuse patient.[facility] [place]In the event this information is protected by the Federal Confidentiality of Alcohol and Drug Abuse Patient Records regulations: The Federal rules restrict any use of the information to criminally investigate or prosecute any alcohol or drug abuse patient.[facility] [place]In the event this information is protected by the Federal Confidentiality of Alcohol and Drug Abuse Patient Records regulations: The Federal rules restrict any use of the information to criminally investigate or prosecute any alcohol or drug abuse patient.[facility] [place]In the event this information is protected by the Federal Confidentiality of Alcohol and Drug Abuse Patient Records regulations: The Federal rules restrict any use of the information to criminally investigate or prosecute any alcohol or drug abuse patient.[facility] [place]In the event this information is protected by the Federal Confidentiality of Alcohol and Drug Abuse Patient Records regulations: The Federal rules restrict any use of the information to criminally investigate or prosecute any alcohol or drug abuse patient.[facility] [place]In the event this information is protected by the Federal Confidentiality of Alcohol and Drug Abuse Patient Records regulations: The Federal rules restrict any use of the information to criminally investigate or prosecute any alcohol or drug abuse patient.[facility] [place]In the event this information is protected by the Federal Confidentiality of Alcohol and Drug Abuse Patient Records regulations: The Federal rules restrict any use of the information to criminally investigate or prosecute any alcohol or drug abuse patient.[facility] [place]In the event this information is protected by the Federal Confidentiality of Alcohol and Drug Abuse Patient Records regulations: The Federal rules restrict any use of the information to criminally investigate or prosecute any alcohol or drug abuse patient.[facility] [place]In the event this information is protected by the Federal Confidentiality of Alcohol and Drug Abuse Patient Records regulations: The Federal rules restrict any use of the information to criminally investigate or prosecute any alcohol or drug abuse patient.[facility] [place]In the event this information is protected by the Federal Confidentiality of Alcohol and Drug Abuse Patient Records regulations: The Federal rules restrict any use of the information to criminally investigate or prosecute any alcohol or drug abuse patient.[facility] [place]In the event this information is protected by the Federal Confidentiality of Alcohol and Drug Abuse Patient Records regulations: The Federal rules restrict any use of the information to criminally investigate or prosecute any alcohol or drug abuse patient.[facility] [place]In the event this information is protected by the Federal Confidentiality of Alcohol and Drug Abuse Patient Records regulations: The Federal rules restrict any use of the information to criminally investigate or prosecute any alcohol or drug abuse patient.[facility] [place]In the event this information is protected by the Federal Confidentiality of Alcohol and Drug Abuse Patient Records regulations: The Federal rules restrict any use of the information to criminally investigate or prosecute any alcohol or drug abuse patient.[facility] [place]In the event this information is protected by the Federal Confidentiality of Alcohol and Drug Abuse Patient Records regulations: The Federal rules restrict any use of the information to criminally investigate or prosecute any alcohol or drug abuse patient.[facility] [place]In the event this information is protected by the Federal Confidentiality of Alcohol and Drug Abuse Patient Records regulations: The Federal rules restrict any use of the information to criminally investigate or prosecute any alcohol or drug abuse patient.[facility] [place]In the event this information is protected by the Federal Confidentiality of Alcohol and Drug Abuse Patient Records regulations: The Federal rules restrict any use of the information to criminally investigate or prosecute any alcohol or drug abuse patient.[facility] [place]In the event this information is protected by the Federal Confidentiality of Alcohol and Drug Abuse Patient Records regulations: The Federal rules restrict any use of the information to criminally investigate or prosecute any alcohol or drug abuse patient.[facility] [place]In the event this information is protected by the Federal Confidentiality of Alcohol and Drug Abuse Patient Records regulations: The Federal rules restrict any use of the information to criminally investigate or prosecute any alcohol or drug abuse patient.[facility] [place]In the event this information is protected by the Federal Confidentiality of Alcohol and Drug Abuse Patient Records regulations: The Federal rules restrict any use of the information to criminally investigate or prosecute any alcohol or drug abuse patient.[facility] [place]In the event this information is protected by the Federal Confidentiality of Alcohol and Drug Abuse Patient Records regulations: The Federal rules restrict any use of the information to criminally investigate or prosecute any alcohol or drug abuse patient.[facility] [place]In the event this information is protected by the Federal Confidentiality of Alcohol and Drug Abuse Patient Records regulations: The Federal rules restrict any use of the information to criminally investigate or prosecute any alcohol or drug abuse patient.[facility] [place]In the event this information is protected by the Federal Confidentiality of Alcohol and Drug Abuse Patient Records regulations: The Federal rules restrict any use of the information to criminally investigate or prosecute any alcohol or drug abuse patient.[facility] [place]In the event this information is protected by the Federal Confidentiality of Alcohol and Drug Abuse Patient Records regulations: The Federal rules restrict any use of the information to criminally investigate or prosecute any alcohol or drug abuse patient.[facility] [place]In the event this information is protected by the Federal Confidentiality of Alcohol and Drug Abuse Patient Records regulations: The Federal rules restrict any use of the information to criminally investigate or prosecute any alcohol or drug abuse patient.[facility] [place]In the event this information is protected by the Federal Confidentiality of Alcohol and Drug Abuse Patient Records regulations: The Federal rules restrict any use of the information to criminally investigate or prosecute any alcohol or drug abuse patient.[facility] [place]In the event this information is protected by the Federal Confidentiality of Alcohol and Drug Abuse Patient Records regulations: The Federal rules restrict any use of the information to criminally investigate or prosecute any alcohol or drug abuse patient.[facility] [place]In the event this information is protected by the Federal Confidentiality of Alcohol and Drug Abuse Patient Records regulations: The Federal rules restrict any use of the information to criminally investigate or prosecute any alcohol or drug abuse patient.[facility] [place]In the event this information is protected by the Federal Confidentiality of Alcohol and Drug Abuse Patient Records regulations: The Federal rules restrict any use of the information to criminally investigate or prosecute any alcohol or drug abuse patient.[facility] [place]In the event this information is protected by the Federal Confidentiality of Alcohol and Drug Abuse Patient Records regulations: The Federal rules restrict any use of the information to criminally investigate or prosecute any alcohol or drug abuse patient.[facility] [place]In the event this information is protected by the Federal Confidentiality of Alcohol and Drug Abuse Patient Records regulations: The Federal rules restrict any use of the information to criminally investigate or prosecute any alcohol or drug abuse patient.[facility] [place]In the event this information is protected by the Federal Confidentiality of Alcohol and Drug Abuse Patient Records regulations: The Federal rules restrict any use of the information to criminally investigate or prosecute any alcohol or drug abuse patient.[facility] [place]In the event this information is protected by the Federal Confidentiality of Alcohol and Drug Abuse Patient Records regulations: The Federal rules restrict any use of the information to criminally investigate or prosecute any alcohol or drug abuse patient.[facility] [place]In the event this information is protected by the Federal Confidentiality of Alcohol and Drug Abuse Patient Records regulations: The Federal rules restrict any use of the information to criminally investigate or prosecute any alcohol or drug abuse patient.[facility] [place]In the event this information is protected by the Federal Confidentiality of Alcohol and Drug Abuse Patient Records regulations: The Federal rules restrict any use of the information to criminally investigate or prosecute any alcohol or drug abuse patient.[facility] [place]In the event this information is protected by the Federal Confidentiality of Alcohol and Drug Abuse Patient Records regulations: The Federal rules restrict any use of the information to criminally investigate or prosecute any alcohol or drug abuse patient.[facility] [place]In the event this information is protected by the Federal Confidentiality of Alcohol and Drug Abuse Patient Records regulations: The Federal rules restrict any use of the information to criminally investigate or prosecute any alcohol or drug abuse patient.[facility] [place]In the event this information is protected by the Federal Confidentiality of Alcohol and Drug Abuse Patient Records regulations: The Federal rules restrict any use of the information to criminally investigate or prosecute any alcohol or drug abuse patient.[facility] [place]In the event this information is protected by the Federal Confidentiality of Alcohol and Drug Abuse Patient Records regulations: The Federal rules restrict any use of the information to criminally investigate or prosecute any alcohol or drug abuse patient.[facility] [place]In the event this information is protected by the Federal Confidentiality of Alcohol and Drug Abuse Patient Records regulations: The Federal rules restrict any use of the information to criminally investigate or prosecute any alcohol or drug abuse patient.[facility] [place]In the event this information is protected by the Federal Confidentiality of Alcohol and Drug Abuse Patient Records regulations: The Federal rules restrict any use of the information to criminally investigate or prosecute any alcohol or drug abuse patient.[facility] [place]In the event this information is protected by the Federal Confidentiality of Alcohol and Drug Abuse Patient Records regulations: The Federal rules restrict any use of the information to criminally investigate or prosecute any alcohol or drug abuse patient.[facility] [place]In the event this information is protected by the Federal Confidentiality of Alcohol and Drug Abuse Patient Records regulations: The Federal rules restrict any use of the information to criminally investigate or prosecute any alcohol or drug abuse patient.[facility] [place]In the event this information is protected by the Federal Confidentiality of Alcohol and Drug Abuse Patient Records regulations: The Federal rules restrict any use of the information to criminally investigate or prosecute any alcohol or drug abuse patient.[facility] [place]In the event this information is protected by the Federal Confidentiality of Alcohol and Drug Abuse Patient Records regulations: The Federal rules restrict any use of the information to criminally investigate or prosecute any alcohol or drug abuse patient.[facility] [place]In the event this information is protected by the Federal Confidentiality of Alcohol and Drug Abuse Patient Records regulations: The Federal rules restrict any use of the information to criminally investigate or prosecute any alcohol or drug abuse patient.[facility] [place]In the event this information is protected by the Federal Confidentiality of Alcohol and Drug Abuse Patient Records regulations: The Federal rules restrict any use of the information to criminally investigate or prosecute any alcohol or drug abuse patient.[facility] [place]In the event this information is protected by the Federal Confidentiality of Alcohol and Drug Abuse Patient Records regulations: The Federal rules restrict any use of the information to criminally investigate or prosecute any alcohol or drug abuse patient.[facility] [place]In the event this information is protected by the Federal Confidentiality of Alcohol and Drug Abuse Patient Records regulations: The Federal rules restrict any use of the information to criminally investigate or prosecute any alcohol or drug abuse patient.[facility] [place]In the event this information is protected by the Federal Confidentiality of Alcohol and Drug Abuse Patient Records regulations: The Federal rules restrict any use of the information to criminally investigate or prosecute any alcohol or drug abuse patient.[facility] [place]In the event this information is protected by the Federal Confidentiality of Alcohol and Drug Abuse Patient Records regulations: The Federal rules restrict any use of the information to criminally investigate or prosecute any alcohol or drug abuse patient.[facility] [place]In the event this information is protected by the Federal Confidentiality of Alcohol and Drug Abuse Patient Records regulations: The Federal rules restrict any use of the information to criminally investigate or prosecute any alcohol or drug abuse patient.[facility] [place]In the event this information is protected by the Federal Confidentiality of Alcohol and Drug Abuse Patient Records regulations: The Federal rules restrict any use of the information to criminally investigate or prosecute any alcohol or drug abuse patient.[facility] [place]In the event this information is protected by the Federal Confidentiality of Alcohol and Drug Abuse Patient Records regulations: The Federal rules restrict any use of the information to criminally investigate or prosecute any alcohol or drug abuse patient.[facility] [place]In the event this information is protected by the Federal Confidentiality of Alcohol and Drug Abuse Patient Records regulations: The Federal rules restrict any use of the information to criminally investigate or prosecute any alcohol or drug abuse patient.[facility] [place]In the event this information is protected by the Federal Confidentiality of Alcohol and Drug Abuse Patient Records regulations: The Federal rules restrict any use of the information to criminally investigate or prosecute any alcohol or drug abuse patient.[facility] [place]In the event this information is protected by the Federal Confidentiality of Alcohol and Drug Abuse Patient Records regulations: The Federal rules restrict any use of the information to criminally investigate or prosecute any alcohol or drug abuse patient.[facility] [place]In the event this information is protected by the Federal Confidentiality of Alcohol and Drug Abuse Patient Records regulations: The Federal rules restrict any use of the information to criminally investigate or prosecute any alcohol or drug abuse patient.[facility] [place]In the event this information is protected by the Federal Confidentiality of Alcohol and Drug Abuse Patient Records regulations: The Federal rules restrict any use of the information to criminally investigate or prosecute any alcohol or drug abuse patient.[facility] [place]In the event this information is protected by the Federal Confidentiality of Alcohol and Drug Abuse Patient Records regulations: The Federal rules restrict any use of the information to criminally investigate or prosecute any alcohol or drug abuse patient.[facility] [place]In the event this information is protected by the Federal Confidentiality of Alcohol and Drug Abuse Patient Records regulations: The Federal rules restrict any use of the information to criminally investigate or prosecute any alcohol or drug abuse patient.[facility] [place]In the event this information is protected by the Federal Confidentiality of Alcohol and Drug Abuse Patient Records regulations: The Federal rules restrict any use of the information to criminally investigate or prosecute any alcohol or drug abuse patient.[facility] [place]In the event this information is protected by the Federal Confidentiality of Alcohol and Drug Abuse Patient Records regulations: The Federal rules restrict any use of the information to criminally investigate or prosecute any alcohol or drug abuse patient.[facility] [place]In the event this information is protected by the Federal Confidentiality of Alcohol and Drug Abuse Patient Records regulations: The Federal rules restrict any use of the information to criminally investigate or prosecute any alcohol or drug abuse patient.[facility] [place]In the event this information is protected by the Federal Confidentiality of Alcohol and Drug Abuse Patient Records regulations: The Federal rules restrict any use of the information to criminally investigate or prosecute any alcohol or drug abuse patient.[facility] [place]In the event this information is protected by the Federal Confidentiality of Alcohol and Drug Abuse Patient Records regulations: The Federal rules restrict any use of the information to criminally investigate or prosecute any alcohol or drug abuse patient.[facility] [place]In the event this information is protected by the Federal Confidentiality of Alcohol and Drug Abuse Patient Records regulations: The Federal rules restrict any use of the information to criminally investigate or prosecute any alcohol or drug abuse patient.[facility] [place]In the event this information is protected by the Federal Confidentiality of Alcohol and Drug Abuse Patient Records regulations: The Federal rules restrict any use of the information to criminally investigate or prosecute any alcohol or drug abuse patient.[facility] [place]In the event this information is protected by the Federal Confidentiality of Alcohol and Drug Abuse Patient Records regulations: The Federal rules restrict any use of the information to criminally investigate or prosecute any alcohol or drug abuse patient.[facility] [place]In the event this information is protected by the Federal Confidentiality of Alcohol and Drug Abuse Patient Records regulations: The Federal rules restrict any use of the information to criminally investigate or prosecute any alcohol or drug abuse patient.[facility] [place]In the event this information is protected by the Federal Confidentiality of Alcohol and Drug Abuse Patient Records regulations: The Federal rules restrict any use of the information to criminally investigate or prosecute any alcohol or drug abuse patient.[facility] [place]In the event this information is protected by the Federal Confidentiality of Alcohol and Drug Abuse Patient Records regulations: The Federal rules restrict any use of the information to criminally investigate or prosecute any alcohol or drug abuse patient.[facility] [place]In the event this information is protected by the Federal Confidentiality of Alcohol and Drug Abuse Patient Records regulations: The Federal rules restrict any use of the information to criminally investigate or prosecute any alcohol or drug abuse patient.[facility] [place]In the event this information is protected by the Federal Confidentiality of Alcohol and Drug Abuse Patient Records regulations: The Federal rules restrict any use of the information to criminally investigate or prosecute any alcohol or drug abuse patient.[facility] [place]In the event this information is protected by the Federal Confidentiality of Alcohol and Drug Abuse Patient Records regulations: The Federal rules restrict any use of the information to criminally investigate or prosecute any alcohol or drug abuse patient.[facility]In the event this information is protected by the Federal Confidentiality of Alcohol and Drug Abuse Patient Records regulations: The Federal rules restrict any use of the information to criminally investigate or prosecute any alcohol or drug abuse patient.[facility]hillIn the event this information is protected by the Federal Confidentiality of Alcohol and Drug Abuse Patient Records regulations: The Federal rules restrict any use of the information to criminally investigate or prosecute any alcohol or drug abuse patient.[facility]hillIn the event this information is protected by the Federal Confidentiality of Alcohol and Drug Abuse Patient Records regulations: The Federal rules restrict any use of the information to criminally investigate or prosecute any alcohol or drug abuse patient.[facility] [place]hillIn the event this information is protected by the Federal Confidentiality of Alcohol and Drug Abuse Patient Records regulations: The Federal rules restrict any use of the information to criminally investigate or prosecute any alcohol or drug abuse patient.[facility] [place]hillIn the event this information is protected by the Federal Confidentiality of Alcohol and Drug Abuse Patient Records regulations: The Federal rules restrict any use of the information to criminally investigate or prosecute any alcohol or drug abuse patient.[facility] [place]hillIn the event this information is protected by the Federal Confidentiality of Alcohol and Drug Abuse Patient Records regulations: The Federal rules restrict any use of the information to criminally investigate or prosecute any alcohol or drug abuse patient.[facility] [place]hillIn the event this information is protected by the Federal Confidentiality of Alcohol and Drug Abuse Patient Records regulations: The Federal rules restrict any use of the information to criminally investigate or prosecute any alcohol or drug abuse patient.[facility] [place]hillIn the event this information is protected by the Federal Confidentiality of Alcohol and Drug Abuse Patient Records regulations: The Federal rules restrict any use of the information to criminally investigate or prosecute any alcohol or drug abuse patient.[facility] [place]hillIn the event this information is protected by the Federal Confidentiality of Alcohol and Drug Abuse Patient Records regulations: The Federal rules restrict any use of the information to criminally investigate or prosecute any alcohol or drug abuse patient.[facility]hillIn the event this information is protected by the Federal Confidentiality of Alcohol and Drug Abuse Patient Records regulations: The Federal rules restrict any use of the information to criminally investigate or prosecute any alcohol or drug abuse patient.[facility] [place]hillIn the event this information is protected by the Federal Confidentiality of Alcohol and Drug Abuse Patient Records regulations: The Federal rules restrict any use of the information to criminally investigate or prosecute any alcohol or drug abuse patient.[facility] [place]hillIn the event this information is protected by the Federal Confidentiality of Alcohol and Drug Abuse Patient Records regulations: The Federal rules restrict any use of the information to criminally investigate or prosecute any alcohol or drug abuse patient.[facility]hillIn the event this information is protected by the Federal Confidentiality of Alcohol and Drug Abuse Patient Records regulations: The Federal rules restrict any use of the information to criminally investigate or prosecute any alcohol or drug abuse patient.[facility]hillIn the event this information is protected by the Federal Confidentiality of Alcohol and Drug Abuse Patient Records regulations: The Federal rules restrict any use of the information to criminally investigate or prosecute any alcohol or drug abuse patient.[facility] [place]hillIn the event this information is protected by the Federal Confidentiality of Alcohol and Drug Abuse Patient Records regulations: The Federal rules restrict any use of the information to criminally investigate or prosecute any alcohol or drug abuse patient.[facility] [place]hillIn the event this information is protected by the Federal Confidentiality of Alcohol and Drug Abuse Patient Records regulations: The Federal rules restrict any use of the information to criminally investigate or prosecute any alcohol or drug abuse patient.[facility] [place]hillIn the event this information is protected by the Federal Confidentiality of Alcohol and Drug Abuse Patient Records regulations: The Federal rules restrict any use of the information to criminally investigate or prosecute any alcohol or drug abuse patient.[facility] [place]hillIn the event this information is protected by the Federal Confidentiality of Alcohol and Drug Abuse Patient Records regulations: The Federal rules restrict any use of the information to criminally investigate or prosecute any alcohol or drug abuse patient.[facility] [place]hillIn the event this information is protected by the Federal Confidentiality of Alcohol and Drug Abuse Patient Records regulations: The Federal rules restrict any use of the information to criminally investigate or prosecute any alcohol or drug abuse patient.[facility] [place]hillIn the event this information is protected by the Federal Confidentiality of Alcohol and Drug Abuse Patient Records regulations: The Federal rules restrict any use of the information to criminally investigate or prosecute any alcohol or drug abuse patient.[facility] [place]hillIn the event this information is protected by the Federal Confidentiality of Alcohol and Drug Abuse Patient Records regulations: The Federal rules restrict any use of the information to criminally investigate or prosecute any alcohol or drug abuse patient.[facility] [place]hillIn the event this information is protected by the Federal Confidentiality of Alcohol and Drug Abuse Patient Records regulations: The Federal rules restrict any use of the information to criminally investigate or prosecute any alcohol or drug abuse patient.[facility] [place]hillIn the event this information is protected by the Federal Confidentiality of Alcohol and Drug Abuse Patient Records regulations: The Federal rules restrict any use of the information to criminally investigate or prosecute any alcohol or drug abuse patient.[facility] [place]hillIn the event this information is protected by the Federal Confidentiality of Alcohol and Drug Abuse Patient Records regulations: The Federal rules restrict any use of the information to criminally investigate or prosecute any alcohol or drug abuse patient.[facility] [place]hillIn the event this information is protected by the Federal Confidentiality of Alcohol and Drug Abuse Patient Records regulations: The Federal rules restrict any use of the information to criminally investigate or prosecute any alcohol or drug abuse patient.[facility] [place]hillIn the event this information is protected by the Federal Confidentiality of Alcohol and Drug Abuse Patient Records regulations: The Federal rules restrict any use of the information to criminally investigate or prosecute any alcohol or drug abuse patient.[facility] [place]hillIn the event this information is protected by the Federal Confidentiality of Alcohol and Drug Abuse Patient Records regulations: The Federal rules restrict any use of the information to criminally investigate or prosecute any alcohol or drug abuse patient.[facility] [place]hillIn the event this information is protected by the Federal Confidentiality of Alcohol and Drug Abuse Patient Records regulations: The Federal rules restrict any use of the information to criminally investigate or prosecute any alcohol or drug abuse patient.[facility] [place]hillIn the event this information is protected by the Federal Confidentiality of Alcohol and Drug Abuse Patient Records regulations: The Federal rules restrict any use of the information to criminally investigate or prosecute any alcohol or drug abuse patient.[facility] [place]hillIn the event this information is protected by the Federal Confidentiality of Alcohol and Drug Abuse Patient Records regulations: The Federal rules restrict any use of the information to criminally investigate or prosecute any alcohol or drug abuse patient.[facility] [place]hillIn the event this information is protected by the Federal Confidentiality of Alcohol and Drug Abuse Patient Records regulations: The Federal rules restrict any use of the information to criminally investigate or prosecute any alcohol or drug abuse patient.[facility] [place]hillIn the event this information is protected by the Federal Confidentiality of Alcohol and Drug Abuse Patient Records regulations: The Federal rules restrict any use of the information to criminally investigate or prosecute any alcohol or drug abuse patient.[facility] [place]hillIn the event this information is protected by the Federal Confidentiality of Alcohol and Drug Abuse Patient Records regulations: The Federal rules restrict any use of the information to criminally investigate or prosecute any alcohol or drug abuse patient.[facility] [place]hillIn the event this information is protected by the Federal Confidentiality of Alcohol and Drug Abuse Patient Records regulations: The Federal rules restrict any use of the information to criminally investigate or prosecute any alcohol or drug abuse patient.[facility] [place]hillIn the event this information is protected by the Federal Confidentiality of Alcohol and Drug Abuse Patient Records regulations: The Federal rules restrict any use of the information to criminally investigate or prosecute any alcohol or drug abuse patient.[facility] [place]hillIn the event this information is protected by the Federal Confidentiality of Alcohol and Drug Abuse Patient Records regulations: The Federal rules restrict any use of the information to criminally investigate or prosecute any alcohol or drug abuse patient.[facility] [place]hillIn the event this information is protected by the Federal Confidentiality of Alcohol and Drug Abuse Patient Records regulations: The Federal rules restrict any use of the information to criminally investigate or prosecute any alcohol or drug abuse patient.[facility] [place]hillIn the event this information is protected by the Federal Confidentiality of Alcohol and Drug Abuse Patient Records regulations: The Federal rules restrict any use of the information to criminally investigate or prosecute any alcohol or drug abuse patient.[facility] [place]hillIn the event this information is protected by the Federal Confidentiality of Alcohol and Drug Abuse Patient Records regulations: The Federal rules restrict any use of the information to criminally investigate or prosecute any alcohol or drug abuse patient.[facility] [place]hillIn the event this information is protected by the Federal Confidentiality of Alcohol and Drug Abuse Patient Records regulations: The Federal rules restrict any use of the information to criminally investigate or prosecute any alcohol or drug abuse patient.[facility] [place]hillIn the event this information is protected by the Federal Confidentiality of Alcohol and Drug Abuse Patient Records regulations: The Federal rules restrict any use of the information to criminally investigate or prosecute any alcohol or drug abuse patient.[facility]hillIn the event this information is protected by the Federal Confidentiality of Alcohol and Drug Abuse Patient Records regulations: The Federal rules restrict any use of the information to criminally investigate or prosecute any alcohol or drug abuse patient.[facility]hillIn the event this information is protected by the Federal Confidentiality of Alcohol and Drug Abuse Patient Records regulations: The Federal rules restrict any use of the information to criminally investigate or prosecute any alcohol or drug abuse patient.[facility]hillIn the event this information is protected by the Federal Confidentiality of Alcohol and Drug Abuse Patient Records regulations: The Federal rules restrict any use of the information to criminally investigate or prosecute any alcohol or drug abuse patient.[facility]hillIn the event this information is protected by the Federal Confidentiality of Alcohol and Drug Abuse Patient Records regulations: The Federal rules restrict any use of the information to criminally investigate or prosecute any alcohol or drug abuse patient.[facility]hillIn the event this information is protected by the Federal Confidentiality of Alcohol and Drug Abuse Patient Records regulations: The Federal rules restrict any use of the information to criminally investigate or prosecute any alcohol or drug abuse patient.[facility]hillIn the event this information is protected by the Federal Confidentiality of Alcohol and Drug Abuse Patient Records regulations: The Federal rules restrict any use of the information to criminally investigate or prosecute any alcohol or drug abuse patient.[facility] Care Teams (unrecognized sec tion and content) Shell Molder Relationship Specialty Start Date End Date Errol Cary MD [address] [place], [place] [id number] PCP - General Family Practice 11/12/11 Shell Molder Relationship Specialty Start Date End Date Errol Cary MD [address] [place], [place] [id number] PCP - General Family Practice 11/12/11 Shell Molder Relationship Specialty Start Date End Date Errol Cary MD [address] [facility] [place] [address] PCP - General Family Practice 11/12/11 Shell Molder Relationship Specialty Start Date End Date Errol Cary MD [address] [facility] [place] [address] PCP - General Family Practice 11/12/11 Shell Molder Relationship Specialty Start Date End Date Errol Cary MD [address] [facility] [place] [address] PCP - General Family Practice 11/12/11 Shell Molder Relationship Specialty Start Date End Date Errol Cary MD [address] [facility] [place] [address] PCP - General Family Practice 11/12/11 Shell Molder Relationship Specialty Start Date End Date Errol Cary MD [address] [facility] [place] [address] PCP - General Family Practice 11/12/11 Shell Molder Relationship Specialty Start Date End Date Errol Cary MD [address] [facility] [place] [address] PCP - General Family Practice 11/12/11 Shell Molder Relationship Specialty Start Date End Date Errol Cary MD [address] [facility] [place] [address] PCP - General Family Practice 11/12/11 Shell Molder Relationship Specialty Start Date End Date Errol Cary MD [address] [facility] [place] [address] PCP - General Family Practice 11/12/11 Shell Molder Relationship Specialty Start Date End Date Errol Cary MD [address] [facility] [place] [address] PCP - General Family Practice 11/12/11 Shell Molder Relationship Specialty Start Date End Date Errol Cary MD [address] [facility] [place] [address] PCP - General Family Practice 11/12/11 Shell Molder Relationship Specialty Start Date End Date Errol Cary MD [address] [facility] [place] [address] PCP - General Family Practice 11/12/11 Shell Molder Relationship Specialty Start Date End Date Errol Cary MD [address] [facility] [place] [address] PCP - General Family Practice 11/12/11 Shell Molder Relationship Specialty Start Date End Date Errol Cary MD [address] [facility] [place] [address] PCP - General Family Practice 11/12/11 Shell Molder Relationship Specialty Start Date End Date Errol Cary MD [address] [facility] [place] [address] PCP - General Family Practice 11/12/11 Shell Molder Relationship Specialty Start Date End Date Errol Cary MD [address] [facility] [place] [address] PCP - General Family Practice 11/12/11 Shell Molder Relationship Specialty Start Date End Date Errol Cary MD [address] [facility] [place] [address] PCP - General Family Medicine 01/27/19 Shell Molder Relationship Specialty Start Date End Date Errol Cary MD [address] [facility] [place] [address] PCP - General Family Practice 11/12/11 Shell Molder Relationship Specialty Start Date End Date Errol Cary MD [address] [facility] [place] [address] PCP - General Family Practice 11/12/11 Shell Molder Relationship Specialty Start Date End Date Errol Cary MD [address] [facility] [place] [address] PCP - General Family Practice 11/12/11 Shell Molder Relationship Specialty Start Date End Date Errol Cary MD [address] [facility] [place] [address] PCP - General Family Medicine 11/12/11 Shell Molder Relationship Specialty Start Date End Date Errol Cary MD [address] [facility] [place] [address] PCP - General Family Medicine 11/12/11 Shell Molder Relationship Specialty Start Date End Date Errol Cary MD [address] [facility] [place] [address] PCP - General Family Medicine 11/12/11 Shell Molder Relationship Specialty Start Date End Date Errol Cary MD [address] [facility] [place] [address] PCP - General Family Medicine 11/12/11 Shell Molder Relationship Specialty Start Date End Date Errol Cary MD [address] [facility] [place] [address] PCP - General Family Medicine 11/12/11 Shell Molder Relationship Specialty Start Date End Date Errol Cary MD [address] [facility] [place] [address] PCP - General Family Medicine 11/12/11 Shell Molder Relationship Specialty Start Date End Date Errol Cary MD [address] [facility] [place] [address] PCP - General Family Medicine 11/12/11 Shell Molder Relationship Specialty Start Date End Date Errol Cary MD [address] [facility] [place] [address] PCP - General Family Medicine 11/12/11 Shell Molder Relationship Specialty Start Date End Date Errol Cary MD [address] [facility] [place] [address] PCP - General Family Medicine 11/12/11 Shell Molder Relationship Specialty Start Date End Date Errol Cary MD [address] [facility] [place] [address] PCP - General Family Medicine 11/12/11 Shell Molder Relationship Specialty Start Date End Date Errol Cary MD [address] [facility] [place] [address] PCP - General Family Medicine 11/12/11 Shell Molder Relationship Specialty Start Date End Date Errol Cary MD [address] [facility] [place] [address] PCP - General Family Medicine 11/12/11 Shell Molder Relationship Specialty Start Date End Date Errol Cary MD [address] [facility] [place] [address] PCP - General Family Medicine 11/12/11 Shell Molder Relationship Specialty Start Date End Date Errol Cary MD [address] [facility] [place] [address] PCP - General Family Medicine 11/12/11 Shell Molder Relationship Specialty Start Date End Date Errol Cary MD [address] [facility] [address] PCP - General Family Medicine 11/12/11 Shell Molder Relationship Specialty Start Date End Date Errol Cary MD [address] [facility] [place] [address] PCP - General Family Medicine 11/12/11 Shell Molder Relationship Specialty Start Date End Date Errol Cary MD [address] [facility] [address] PCP - General Family Medicine 11/12/11 Shell Molder Relationship Specialty Start Date End Date Errol Cary MD [address] [facility] [place] [address] PCP - General Family Medicine 11/12/11 Shell Molder Relationship Specialty Start Date End Date Errol Cary MD [address] [facility] [place] [address] PCP - General Family Medicine 11/12/11 Shell Molder Relationship Specialty Start Date End Date Errol Cary MD [address] [place] [address], [place] [address] PCP - General Family Medicine 11/12/11 Shell Molder Relationship Specialty Start Date End Date Errol Cary MD [address] [place] [address], [place] [address] PCP - General Family Medicine 11/12/11 Shell Molder Relationship Specialty Start Date End Date Errol Cary MD [address] [facility] [place] [address] PCP - General Family Medicine 11/12/11 Shell Molder Relationship Specialty Start Date End Date Errol Cary MD [address] [facility] [place] [address] PCP - General Family Medicine 11/12/11 Shell Molder Relationship Specialty Start Date End Date Errol Cary MD [address] [facility] [place] [address] PCP - General Family Medicine 11/12/11 Shell Molder Relationship Specialty [place] [address] [place] [address], [place] [address] PCP - General Family Medicine 11/12/11 Shell Molder Relationship Specialty Start Date End Date Errol Cary MD [address] [place] [address] PCP - General Family Medicine 11/12/11 Shell Molder Relationship Specialty Start Date End Date Errol Cary MD [address] [place] [address] PCP - General Family Medicine 11/12/11 Shell Molder Relationship Specialty Start Date End Date Errol Cary MD [address] [place] [address] PCP - General Family Medicine 11/12/11 Shell Molder Relationship Specialty Start Date End Date Errol Cary MD [address] [place] [address] PCP - General Family Medicine 11/12/11 Shell Molder Relationship Specialty Start Date End Date Errol Cary MD [address] [place] [address] PCP - General Family Medicine 11/12/11 Shell Molder Relationship Specialty Start Date End Date Errol Cary MD [address] [place] [address] PCP - General Family Medicine 11/12/11 Shell Molder Relationship Specialty Start Date End Date Errol Cary MD [address] [place] [address] PCP - General Family Medicine 11/12/11 Shell Molder Relationship Specialty Start Date End Date Errol Cary MD [address] [place] [address] PCP - General Family Medicine 11/12/11 Shell Molder Relationship Specialty Start Date End Date Errol Cary MD [address] [place] [address] PCP - General Family Medicine 11/12/11 Shell Molder Relationship Specialty Start Date End Date Errol Cary MD [address] [place] [address] PCP - General Family Medicine 11/12/11 Shell Molder Relationship Specialty Start Date End Date Errol Cary MD [address] [place] [address] PCP - General Family Medicine 11/12/11 Shell Molder Relationship Specialty Start Date End Date Errol Cary MD [address] [place] [address] PCP - General Family Medicine 11/12/11 Shell Molder Relationship Specialty Start Date End Date Errol Cary MD [address] [place] [address] PCP - General Family Medicine 11/12/11 Shell Molder Relationship Specialty Start Date End Date Errol Cary MD [address] [place] [address] PCP - General Family Medicine 11/12/11 Shell Molder Relationship Specialty Start Date End Date Errol Cary MD [address] [place] [address] PCP - General Family Medicine 11/12/11 Shell Molder Relationship Specialty Start Date End Date Errol Cary MD [address] [place] [address] PCP - General Family Medicine 11/12/11 Team Status: Active Member Role Status Dates Dr. Errol Cary MD Family Provider Active Dr. Errol Cary MD Primary Care Provider Active Team Status: Inactive Member Role Status Dates Dr. Errol Cary MD Primary Care Provider Active Dr. Yahaira Patel MD Emergency Provider Active Shell Molder Relationship Specialty Start Date End Date Errol Cary MD [address] [facility] [place] [address] PCP - General Family Medicine 11/12/11 Shell Molder Relationship Specialty Start Date End Date Errol Cary MD [address] [facility] [place] [address] PCP - General Family Medicine 11/12/11 Shell Molder Relationship Specialty Start Date End Date Errol Cary MD [address] [facility] [place] [address] PCP - General Family Medicine 11/12/11 Shell Molder Relationship Specialty Start Date End Date Errol Cary MD [address] [facility] [place] [address] PCP - General Family Medicine 11/12/11 Shell Molder Relationship Specialty Start Date End Date Errol Cary MD [address] [facility] [place] [address] PCP - General Family Medicine 11/12/11 Shell Molder Relationship Specialty Start Date End Date Errol Cary MD [address] [facility] [place] [address] PCP - General Family Medicine 11/12/11 Shell Molder Relationship Specialty Start Date End Date Errol Cary MD [address] [facility] [place] [address] PCP - General Family Medicine 11/12/11 Shell Molder Relationship Specialty Start Date End Date Errol Cary MD [address] [place], [place] [address] PCP - General Family Medicine 11/12/11 Shell Molder Relationship Specialty Start Date End Date Errol Cary MD [address] [place], [place] [address] PCP - General Family Medicine 11/12/11 Shell Molder Relationship Specialty Start Date End Date Errol Cary MD [address] [place], [place] [address] PCP - General Family Medicine 11/12/11 Shell Molder Relationship Specialty Start Date End Date Errol Cary MD [address] [place] [address] PCP - General Family Medicine 11/12/11 Shell Molder Relationship Specialty Start Date End Date Errol Cary MD [address] [place] [address] PCP - General Family Medicine 11/12/11 Shell Molder Relationship Specialty Start Date End Date Errol Cary MD [address] [place] [address] PCP - General Family Medicine 11/12/11 Shell Molder Relationship Specialty Start Date End Date Errol Cary MD [address] [place], [place] [address]991 PCP - General Family Medicine 11/12/11 Shell Molder Relationship Specialty Start Date End Date Errol Cary MD [address] [place], [place] [address] PCP - General Family Medicine 11/12/11 Shell Molder Relationship Specialty Start Date End Date Errol Cary MD [address] [place] [address] PCP - General Family Medicine 11/12/11 Shell Molder Relationship Specialty Start Date End Date Errol Cary MD [address] [place] [address] PCP - General Family Medicine 11/12/11 Shell Molder Relationship Specialty Start Date End Date Errol Cary MD [address] [place] [address] PCP - General Family Medicine 11/12/11 Shell Molder Relationship Specialty Start Date End Date Errol Cary MD [address] [place] [address] PCP - General Family Medicine 11/12/11 Shell Molder Relationship Specialty Start Date End Date Errol Cary MD [address] [place] [address] PCP - General Family Medicine 11/12/11 Shell Molder Relationship Specialty Start Date End Date Errol Cary MD [address] [place] [address] PCP - General Family Medicine 11/12/11 Lauren Steen APRN.WAREHOUSE DISTRIBUTION MANAGER [address] [place] [address] Machine Preservative Filler Family Medicine 01/25/24 Aisha Rg APRN.WAREHOUSE DISTRIBUTION MANAGER [address] [place] [address] Machine Preservative Filler Family Medicine 01/25/24 Shell Molder Relationship Specialty Start Date End Date Errol Cary MD [address] [place] [address] PCP - General Family Medicine 11/12/11 Lauren Steen APRN.WAREHOUSE DISTRIBUTION MANAGER [address] [facility] [place] [address] [facility] 01/25/24 Aisha Rg APRN.WAREHOUSE DISTRIBUTION MANAGER [address] [place] [address] [facility] 01/25/24 Shell Molder Relationship Specialty Start Date End Date Errol Cary MD [address] [place] [address] PCP - General Family Medicine 11/12/11 Lauren Steen APRN.WAREHOUSE DISTRIBUTION MANAGER [address] [facility] [place] [address] [facility] 01/25/24 Aisha Rg APRN.WAREHOUSE DISTRIBUTION MANAGER [address] [place] [address] [facility] 01/25/24 Shell Molder Relationship Specialty Start Date End Date Errol Cary MD [address] [place] [address] PCP - General Family Medicine 11/12/11 Lauren Steen APRN.WAREHOUSE DISTRIBUTION MANAGER [address] [facility] [place] [address] [facility] 01/25/24 Aisha Rg APRN.WAREHOUSE DISTRIBUTION MANAGER [address] [place] [address] Machine Preservative Filler [facility] 01/25/24 Shell Molder Relationship Specialty Start Date End Date Errol Cary MD [address] [place] [address] PCP - General Family Medicine 11/12/11 Lauren Steen APRN.WAREHOUSE DISTRIBUTION MANAGER [address] [facility] [place] [address] Machine Preservative Filler [facility] Medicine 01/25/24 Aisha Rg APRN.WAREHOUSE DISTRIBUTION MANAGER [address] [place] [address] [facility] 01/25/24 Shell Molder Relationship Specialty Start Date End Date Errol Cary MD [address] [place] [address] PCP - General Family Medicine 11/12/11 Lauren Steen APRN.WAREHOUSE DISTRIBUTION MANAGER [address] [facility] [place] [address] Machine Preservative Filler Family Medicine 01/25/24 Aisha Rg APRN.WAREHOUSE DISTRIBUTION MANAGER [address] [place] [address] Machine Preservative Filler [facility] 01/25/24 Shell Molder Relationship Specialty Start Date End Date Errol Cary MD [address] [place] [address] PCP - General Family Medicine 11/12/11 Lauren Steen BICYCLE SUBASSEMBLER.WAREHOUSE DISTRIBUTION MANAGER [address] [facility] [address] Machine Preservative Filler Family [facility] 01/25/24 Aisha Rg APRN.WAREHOUSE DISTRIBUTION MANAGER [address] [place] [address] Machine Preservative Filler Family [facility] 01/25/24 Shell Molder Relationship Specialty Start Date End Date Errol Cary MD [address] [facility] [place] [address] PCP - General Family Medicine 11/12/11 Lauren Steen APRN.WAREHOUSE DISTRIBUTION MANAGER [address] [facility] [place] [address] Machine Preservative Filler [facility] 01/25/24 Aisha Rg APRN.WAREHOUSE DISTRIBUTION MANAGER [address] [place] [address] [facility] 01/25/24 Shell Molder Relationship Specialty Start Date End Date Errol Cary MD [address] [facility] [place] [address] PCP - General Family Medicine 11/12/11 Lauren Steen APRN.WAREHOUSE DISTRIBUTION MANAGER [address] [facility] [place] [address] [facility] 01/25/24 Aisha Rg APRN.WAREHOUSE DISTRIBUTION MANAGER [address] [facility] [place] [address] [facility] 01/25/24 Shell Molder Relationship Specialty Start Date End Date Errol Cary MD [address] [place] [address] PCP - General Family Medicine 11/12/11 Lauren Steen APRN.WAREHOUSE DISTRIBUTION MANAGER [address] [place] [address] [facility] 01/25/24 Aisha Rg BICYCLE SUBASSEMBLER.WAREHOUSE DISTRIBUTION MANAGER [address] [place] [address] [facility] 01/25/24 Shell Molder Relationship Specialty Start Date End Date Errol Cary MD [address] [place], [place] [address] PCP - General Family Medicine 11/12/11 Lauren Steen APRN.WAREHOUSE DISTRIBUTION MANAGER [address] [place] [address] [facility] 01/25/24 Aisha Rg BICYCLE SUBASSEMBLER.WAREHOUSE DISTRIBUTION MANAGER [address] [place] [address] [facility] 01/25/24 Shell Molder Relationship Specialty Start Date End Date Errol Cary MD [address] [place] [address] PCP - General Family Medicine 11/12/11 Lauren Steen BICYCLE SUBASSEMBLER.WAREHOUSE DISTRIBUTION MANAGER [address] [place] [address] [facility] 01/25/24 Aisha Rg BICYCLE SUBASSEMBLER.WAREHOUSE DISTRIBUTION MANAGER [address] [place] [address] [facility] 01/25/24 Reason for Visit (unrecogniz ed section and content) Reason Comments Follow Up Specialty Diagnoses / Procedures Referred By Contac t Referred To Contact Psychiatry / ADULT PSYCHIATRY Diagnoses Follow Up Procedures EST PSYC ADULT Jennifer Alfonso, BICYCLE SUBASSEMBLER.WAREHOUSE DISTRIBUTION MANAGER [address] [place] [address] Jennifer Alfonso, BICYCLE SUBASSEMBLER.WAREHOUSE DISTRIBUTION MANAGER [address] [place] [address] Referral ID Status Reason Start Date Expiration Date V isits Requested Visits Authorized [id number] Pending Review 08/22/2021 11/20/2021 1 1 Reason [...] Comments Refill Request Reason Comments ER F/U [facility] Reason Comments Sider - Other Reason Comments Covid Follow Up POS 10/22/21 Hospital F/U [facility] 10/31/21 Reason Comments Question regarding driving Reason Comments Neck Pain Reason Onset Date Comments Refill Request 12/02/2021 Reason Comments Pain Reason Comments Results Reason Onset Date Comments Refill Request 01/08/2022 Reason Comments Spirometry Specialty Diagnoses / Procedures Referred By Contac t Referred To Contact [facility] Diagnoses SOB (shortness of breath) Procedures SPIROMETRY - BASELINE AND POST DILATOR BRNCDILAT RSPSE SPMTRY PRE&POST-BRNCDILAT ADMN Errol Cary MD [address] [place] [address] [facility] [address] [place] [address] Referral ID Status Reason Start Date Expiration Date V isits Requested Visits Authorized [id number] Closed Auto-Generate d Referral 01/04/2022 02/03/2023 1 1 Specialty Diagnoses / Procedures Referred By Contac t Referred To Contact [facility] Diagnoses SOB (shortness of breath) Procedures LUNG VOLUMES PLETHYSMOGRAPHY LUNG VOLUMES W/WO AIRWAY RESIST Errol Cary MD [address] [place] [address] [facility] [address] [place] [address] Referral ID Status Reason Start Date Expiration Date V isits Requested Visits Authorized [id number] Closed Auto-Generate d Referral 01/07/2022 02/15/2022 1 1 Specialty Diagnoses / Procedures Referred By Contac t Referred To Contact [facility] Diagnoses SOB (shortness of breath) Procedures LUNG DIFFUSION CAPACITY (DLCO) DIFFUSING CAPACITY Errol Cary MD [address] [place] [address] [facility] [address] [place] [address] Referral ID Status Reason Start Date Expiration Date V isits Requested Visits Authorized [id number] Closed Auto-Generate d Referral 01/04/2022 02/03/2023 1 1 Reason Comments Consult INTERNAL HEMORRHOIDS , RECTAL BLEEDING Specialty Diagnoses / Procedures Referred By Contac t Referred To Contact General Surgery Diagnoses Internal hemorrhoids Rectal bleeding Procedures CONSULT TO GENERAL SURGERY OFFICE/OUTPATIENT [facility] 60-74 MINUTES Errol Cary MD [address] [place] [address] Referral ID Status Reason Start Date Expiration Date V isits Requested Visits Authorized [id number] Closed PCP Requested Referral 01/04/2022 01/04/2023 1 1 Reason Comments Pain (Shoulder Pain) Neck Pain Specialty Diagnoses / Procedures Referred By Contac t Referred To Contact Internal Medicine / PAIN MANAGEMENT Diagnoses 1 month follow up Procedures REFERRAL TO [facility]ANCIAL COUNSEL[facility] EST PATIENT Self Cindy Cramer, BICYCLE SUBASSEMBLER.WAREHOUSE DISTRIBUTION MANAGER [address] [place] [address] Referral ID Status Reason Start Date Expiration Date Visits Re quested Visits Authorized [id number] Closed 01/28/2022 01/28/2022 1 1 Specialty Diagnoses / Procedures Referred By Contac t Referred To Contact Psychiatry / ADULT PSYCHIATRY Diagnoses follow up Procedures EST PSYC ADULT Jennifer Alfonso, BICYCLE SUBASSEMBLER.WAREHOUSE DISTRIBUTION MANAGER [address] [place] [address] Jennifer Alfonso, BICYCLE SUBASSEMBLER.WAREHOUSE DISTRIBUTION MANAGER [address] [place] [address] Referral ID Status Reason Start Date Expiration Date V isits Requested Visits Authorized [id number] Pending Review 12/04/2021 03/04/2022 1 1 Specialty Diagnoses / Procedures Referred By Contac t Referred To Contact MR IMAGING Diagnoses Liver lesion Procedures MRI LIVER WO/W IVCON MRI ABDOMEN W/O & W/CONTRAST MATERIAL Errol Cary MD [address] [place] [address] Mr Imaging Referral ID Status Reason Start Date Expiration Date V isits Requested Visits Authorized [id number] Closed Auto-Generate d Referral 02/05/2022 03/07/2022 1 [...] memory loss Procedures CONSULT TO NEUROLOGY OFFICE/OUTPATIENT [facility] 60-74 MINUTES Errol Cary MD [address] [place] [address] Referral ID Status Reason Start Date Expiration Date Visits Requested Visits Authorized [id number] Pending Review PCP Requested Referral 03/28/2022 03/28/2023 1 1 Reason Comments Speech Evaluation Specialty Diagnoses / Procedures Referred By Contac t Referred To Contact [facility] Diagnoses Memory loss Procedures CONSULT TO SPEECH THERAPY OFFICE/OUTPATIENT [facility] MDM 60-74 MINUTES Susan Saucedo MD [address] [place] [address] [facility] [address] [address] Referral ID Status Reason Start Date Expiration Date Visits Requested Visits Authorized [id number] Pending Review Auto-Generat ed Referral 04/15/2022 04/15/2023 1 1 Reason Comments Speech Progress Note Specialty Diagnoses / Procedures Referred By Contac t Referred To Contact SPEECH THERAPY Diagnoses Memory loss [R41.3] Procedures est rs speech follow up Susan Saucedo MD [address] [place] [address] Speech [facility] [address] [place] [address] Referral ID Status Reason Start Date Expiration Date V isits Requested Visits Authorized [id number] Authorized 05/08/2022 08/08/2022 6 6 Reason Comments GERD Fecal urgency then o nly blood comes out, abnormal stool texture. Labs 05/16/22. Dark colored blood Reason Onset Date Comments Refill Request 06/03/2022 Reason Comments Consult Specialty Diagnoses / Procedures Referred By Contac t Referred To Contact Cardiology Diagnoses Aorta disorder (HCC) Procedures CONSULT TO CARDIOLOGY OFFICE/OUTPATIENT [facility] 60-[place] [address] [place] [address] Referral ID Status Reason Start Date Expiration Date V isits Requested Visits Authorized [id number] Closed PCP Requested Referral 03/03/2022 03/03/2023 1 1 Reason Comments Consult hemorrhoids Specialty Diagnoses / Procedures [facility] Diagnoses GERD without esophagitis Procedures CONSULT TO GENERAL SURGERY OFFICE/OUTPATIENT [facility] 60-74 MINUTES Errol Cary MD [address] [place] [address] Referral ID Status Reason Start Date Expiration Date V isits Requested Visits Authorized [id number] Closed PCP Requested Referral 04/16/2022 04/16/2023 1 [...] MRI BRAIN BRAIN STEM W/O CONTRAST MATERIAL Errol Cary MD [address] [place] [address] [place] [address] Referral ID Status Reason Start Date Expiration Date V isits Requested Visits Authorized [id number] Closed Auto-Generate d Referral 03/03/2022 04/02/2023 1 1 Reason Comments Radiology US Specialty Diagnoses / Procedures [facility] To [facility] Diagnoses Elevated liver enzymes Procedures US ABD RT UPPER QUADRANT US ABDOMINAL REAL TIME W/IMAGE LIMITED Errol Cary MD [address] [place] [address] [place] [address] Referral ID Status Reason Start Date Expiration Date V isits Requested Visits Authorized [id number] Closed Auto-Generate d Referral 01/07/2022 02/06/2023 1 1 Reason Onset Date Comments Refill Request 12/29/2022 Reason Onset Date Comments Refill Request 01/28/2023 Reason Comments Other Virtual Visit Pre Ch oliva In Reason Comments Other Patient questions Reason Comments Other Follow up appt Reason Onset Date Comments Refill Request 04/27/2023 Reason Comments Other Health Maintenance Reason Onset Date Comments Refill Request 05/01/2023 Reason Onset Date Comments Refill Request 08/26/2023 Reason Comments Consult Abd pain Reason Comments Results PILL COUNT Reason Comments Rectal Bleeding Rectal bleeding on a nd off since he had his first colonoscopy. Sometimes bleeding last for days other times for weeks. Specialty Diagnoses / Procedures Referred By Contac t Referred To Contact Gastroenterology Diagnoses Epigastric pain Abdominal bloating Procedures CONSULT TO GASTROENTEROLOGY OFFICE/OUTPATIENT NEW HIGH MDM 60 MINUTES Yakov Etienne MD [address] [place] [address] Gia Ventura PA-C [address] [place] [address] Referral ID Status Reason Start Date Expiration Date V isits Requested Visits Authorized [id number] Closed PCP Requested Referral 10/05/2023 10/04/2024 1 1 Reason Comments New Patient Rectal bleeding Reason Comments Procedure LATERAL INTERNAL SPH INCTEROTOMY Specialty Diagnoses / Procedures Referred By Samia t Referred To Contact MR IMAGING Diagnoses Liver lesion Procedures MRI LIVER WO/W IVCON MRI ABDOMEN W/O & W/CONTRAST MATERIAL Gia Ventura PA-C [address] [facility] [place] [address] [place] [address] Referral ID Status Reason Start Date Expiration Date V isits Requested Visits Authorized [id number] Closed Auto-Generate d Referral 12/03/2023 02/01/2024 1 1 Reason Comments PreOp Call Reason Onset Date Comments Refill Request 01/07/2024 Reason Onset Date Comments Population Health Navigation Outreach 01/11/2024 [employer] joe Specialty Diagnoses / Procedures Referred By Samia winchester Referred To Contact Diagnoses Anal fissure Anal fissure [K60.2] Procedures FISSURECTOMY INCL SPHINCTEROTOMY WHEN PERFORMED FISSURECTOMY ANAL [facility] [address] [place] [address] Referral ID Status Reason Start Date Expiration Date Visits Re quested Visits Authorized [id number] 1 1 Reason Comments Post Op Reason Comments Patient Question Reason Onset Date Comments Population Health Navigation Outreach 03/14/2024 [employer] [place] Reason Onset Date Comments Population Health Navigation Outreach 04/13/2024 [employer] [place] Reason Onset Date Comments Refill Request 04/25/2024 Reason Comments Physical Hypertension Reason Onset Date Comments Refill Request 06/02/2024 Reason Onset Date Comments Population Health Navigation Outreach 07/20/2024 [employer] [place] Reason Onset Date Comments Allied Health Visit 08/26/2024 Medication A dherence Outreach Goals (unrecognized section and content) Goals may be documented in a n alternate sectionGoals may be documented in an alternate sectionGoals may be documented in an alternate sectionGoals may be documented in an alternate section Ordered Prescriptions (unrec ognized section and content) Prescription Sig Dispensed Refills Start Date End Da te oxyCODONE (OXY-IR) 15 MG immediate release tabletIndications:Acute bilateral thoracic back pain Take 1 tablet by mouth every 6 hours as needed for Pain for up to 3 days. 12 tablet 0 10/26/2021 10/29/2021 triamterene-hydroCHLOROt hiazide (MAXZIDE-25) 37.5-25 MG per tablet Take 1 tablet by mouth daily 30 tablet 3 10/27/2021 losartan (COZAAR) 100 MG tablet Take 1 tablet by mouth daily 30 tablet 3 10/27/2021 gabapentin (NEURONTIN) 600 MG tablet Take 0.5 tablets by mouth 3 times daily for 30 days. 45 tablet 0 10/26/2021 11/25/2021 apixaban (ELIQUIS) 5 MG TABS tablet Take 1 tablet by mouth 2 times daily 60 tablet 1 10/29/2021 apixaban (ELIQUIS) 5 MG TABS tablet Take 2 tablets by mouth 2 times daily for 5 doses 10 tablet 0 10/26/2021 10/29/2021 albuterol sulfate HFA (PROVENTIL;VENTOLIN;PROA IR) 108 (90 Base) MCG/ACT inhaler Inhale 2 puffs into the lungs every 4 hours as needed for Wheezing 18 g 3 10/26/2021 Scheduled Active and Recently Administ ered Medications (unrecognized section and content) Medication Order 10/24/2021 10/25/2021 10/26/2021 albuterol sulfate HFA (PROVENTIL;VENTOLIN;PROAI R) 108 (90 Base) MCG/ACT inhaler 2 puff (CANCELED) 2 puff, Inhalation, 2 TIMES DAILY, First dose (after last modification) on Thu10/24/21 at 0800, Until Discontinued, Initiate RT Bronchodilator Protocol: No 1030 (Given - Provider: Tereso Rosales RCP) apixaban (ELIQUIS) tablet 10 mg(Linked Group 1) 10 mg, Oral, 2 TIMES DAILY, 14 doses, First dose on Thu10/22/21 at 0900, Last dose on Thu10/28/21 at 2100, Indication of Use: Treatment-DVT/PE, ANTICOAGULANT 917 (Given - Provider: Dwayne Guzman RN)2019 (Given - Provider: Kate Yip RN) 912 (Given - Provider: Dwayne Guzman RN)2057 (Given - Provider: Shila Calvo RN) 0842 (Given - Provider: Michael Sanchez RN)2100 (Due) apixaban (ELIQUIS) tablet 5 mg(Linked Group 1) 5 mg, Oral, 2 TIMES DAILY, First dose on Thu10/29/21 at 0900, Until Discontinued, Indication of Use: Treatment-DVT/PE, ANTICOAGULANT dexamethasone (DECADRON) tablet 6 mg 6 mg, Oral, DAILY, 10 doses, First dose on Thu10/22/21 at 0900, Last dose on Thu10/31/21 at 0900 0918 (Given - Provider: Dwayne Guzman RN) 0913 (Given - Provider: Dwayne Guzman RN) 0843 (Given - Provider: Michael Sanchez RN) gabapentin (NEURONTIN) tablet 300 mg 300 mg, Oral, 3 TIMES DAILY, First dose on Thu10/22/21 at 0900, Until Discontinued 917 (Given - Provider: Dwayne Guzman RN)164 (Given - Provider: Dwayne Guzman RN)2019 (Given - Provider: Kate Yip RN) 09 (Given - Provider: Dwayne Guzman RN)165 (Given - Provider: Dwayne Guzman RN)2057 (Given - Provider: Shila Calvo RN) 0842 (Given - Provider: Michael Sanchez RN)132 (Canceled Entry - Provider: Michael Sanchez RN - Comment: refused; discharged)2100 (Due) losartan (COZAAR) tablet 100 mg 100 mg, Oral, DAILY, First dose on Thu10/22/21 at 0900, Until Discontinued 917 (Given - Provider: Dwayne Guzman RN) 09 (Given - Provider: Dwayne Guzman RN) 0842 (Given - Provider: Michael Sanchez RN) miconazole (MICOTIN) 2 % powder Topical, 2 TIMES DAILY, First dose (after last reorder) on Thu10/22/21 at 0900, Apply to red areas of skin 918 (Not Given - Provider: Dwayne Guzman RN - Reason: Patient/family refused)2119 (Not Given - Provider: Kate Yip RN - Reason: Patient/family refused) 913 (Not Given - Provider: Dwayne Guzman RN - Reason: Patient/family refused)2144 (Given - Provider: Shila Calvo RN - Comment: pt applies self) 0845 (Given - Provider: Michael Sanchez RN)2100 (Due) morphine (MS CONTIN) extended release tablet 15 mg 15 mg, Oral, DAILY, First dose (after last modification) on Thu10/22/21 at 0900, Until Discontinued, Do not crush or break. 0918 (Given - Provider: Dwayne Guzman RN) 0913 (Given - Provider: Dwayne Guzman, SUKUMAR) 0850 (Given - Provider: Michael Sanchez, RN) remdesivir 100 mg in sodium chloride 0.9 % 250 mL IVPB (COMPLETED) 100 mg, IntraVENous, at 500 mL/hr, Administer over 30 Minutes, EVERY 24 HOURS, First dose on Thu10/23/21 at 0900, For 4 doses, Flush line with at least 30 mL normal saline after remdesivir infusion is complete. 09 (New Bag - Provider: Dwayne Guzman RN)102 (Stopped - Provider: Dwayne Guzman RN) 0914 (New Bag - Provider: Dwayne Guzman, SUKUMAR)1029 (Stopped - Provider: Dwayne Guzman, SUKUMAR) 0850 (New Bag - Provider: Michael Sanchez, SUKUMAR)0922 (Stopped - Provider: Michael Sanchez, RN) sodium chloride flush 0.9 % injection 5-40 mL 5-40 mL, IntraVENous, EVERY 12 HOURS SCHEDULED (2 times per day), First dose on Thu10/22/21 at 0900, Until Discontinued, For Line Patency: Peripheral IV = 5 [...] Midline or Central Line = 20 mL/lumen 09 (Given - Provider: Dwayne Guzman RN)2020 (Given - Provider: Kate Yip RN) 0914 (Given - Provider: Dwayne Guzman RN)2057 (Given - Provider: Shila Calvo RN) 0845 (Given - Provider: Michael Sanchez, SUKUMAR)2100 (Due) triamterene-hydroCHLOROth iazide (MAXZIDE-25) 37.5-25 MG per tablet 1 tablet 1 tablet, Oral, DAILY, First dose on Thu10/22/21 at 0900, Until Discontinued 0918 (Given - Provider: Dwayne Guzman, RN) 0913 (Given - Provider: Dwayne Guzman, RN) 0842 (Given - Provider: Michael Sanchez RN) PRN Medication Order 10/24/2021 10/25/2021 10/26/2021 0.9 [...] Inhalation, EVERY 4 HOURS PRN, Starting on Lorenza 10/24/21 at 1045, Until Discontinued, Wheezing, Initiate RT [...] Discontinued, insomnia 2020 (Given - Provider: Kate Yip RN) 2057 (Given - Provider: Shila Clavo RN) ondansetron (ZOFRAN) injection 4 mg(Linked Group 2) [...] Severe (7-10) 1129 (Given - Provider: Dwayne Guzman, SUKUMAR) 9909 (Given - Provider: Shila Calvo, SUKUMAR) 2735 (Given - Provider: Michael Sanchez RN) polyethylene [...]
Administer if oral route cannot be used.
Continuous Medication Order 01/30/2024 01/31/2024 02/01/2024 lactated ringers iv infusion 5-30 mL/hr, INTRAVENOUS, CONTINUOUS, Starting on Thu02/01/24 at 1700, Until Thu02/02/24 at 0303, KVO, Recovery or Phase I (only) 1700 (Due) PRN Medication Order 01/30/2024 01/31/2024 02/01/2024 albuterol HFA 90 mcg/actuation 1-2 Puff (PROVENTIL HFA, VENTOLIN HFA) 1-2 Puff, INHALATION, NEEDED, 1 dose, Starting on Thu02/01/24 at 1650, Until Thu02/02/24 at 0303, wheezing/shortness of breath, SHAKE WELL BEFORE USING -Pharmaceutical Waste: Aerosol-, Recovery or Phase I (only) bupivacaine-EPINEPHrine (PF) 0.5 %-1:200,000 injection (SENSORCAINE MPF/EPINEPHrine) (CANCELED) X (OR/PROCEDURE) PRN, Starting on Thu02/01/24 at 1618, Until Thu02/01/24 at 1657, Intraprocedure 1618 (Given - Provid er: Nahun Gustafson MD - Comment: RECTUM) dibucaine topical ointment 1% (NUPERCAINAL) (CANCELED) X (OR/PROCEDURE) PRN, Starting on Thu02/01/24 at 1631, Until Thu02/01/24 at 1657, Intraprocedure 1631 (Given - Provid er: Nahun Gustafson MD) diphenhydrAMINE 50 mg injection (BENADRYL) 50 mg, INTRAVENOUS, EVERY 4 HOURS NEEDED, 2 doses, Starting on Thu02/01/24 at 1650, Until Thu02/02/24 at 0303, itching/rash, May repeat 25 mg IV X1 AFTER 4 HOURS for continued puritis, Recovery or Phase I (only) fentaNYL 50 mcg/mL 25 mcg injection (SUBLIMAZE) 25 mcg, INTRAVENOUS, EVERY 5 MINUTES NEEDED, 4 doses, Starting on Thu02/01/24 at 1650, Until Thu02/02/24 at 0303, FIRST LINE THERAPY for pain score 1 or greater, Every 5 minutes. Use if patient unable to tolerate oral therapy. Hold for respiratory rate less than 12 Max total dose: 100 mcg, Recovery or Phase I (only) hydrALAZINE 5 mg injection (APRESOLINE) 5 mg, INTRAVENOUS, EVERY 10 MINUTES NEEDED, 4 doses, Starting on Thu02/01/24 at 1650, Until Thu02/02/24 at 0303, Give for blood pressure of:, Contact anesthesia provider if given. For systolic BP greater than 200 or diastolic BP greater than 100., Administer IV push over 3-5 minutes., Recovery or Phase I (only) HYDROmorphone 0.25 mg injection (DILAUDID) 0.25 mg, INTRAVENOUS, EVERY 10 MINUTES NEEDED, 4 doses, Starting on Thu02/01/24 at 1650, Until Thu02/02/24 at 0303, SECOND LINE THERAPY for pain score 1 or greater, Every 10 minutes. Use if patient unable to tolerate oral therapy. Hold for respiratory rate less than 12 Max total dose: 2 mg Caution: IV hydromorphone is approximately 8 times MORE POTENT than IV morphine. For example, hydromorphone 1mg IV = morphine 8mg IV, Recovery or Phase I (only) NaCl 0.9% irrigation solution (CANCELED) X (OR/PROCEDURE) PRN, Starting on Thu02/01/24 at 1619, Until Thu02/01/24 at 1657, Intraprocedure 1619 (Given - Provid er: Nahun Gustafson MD - Comment: TABLE IRRIGATION) ondansetron (PF) 4 mg injection (ZOFRAN) 4 mg, INTRAVENOUS, NEEDED, 1 dose, Starting on Thu02/01/24 at 1650, Until Thu02/02/24 at 0303, Nausea/Vomiting - First Line - Parenteral, Give IV push over 2 minutes. If still nauseated 10 min after first line antiemetic dose, proceed to second line antiemetic, Recovery or Phase I (only) ondansetron (PF) 4 mg injection (ZOFRAN) 4 mg, INTRAVENOUS, NEEDED, 1 dose, Starting on Thu02/01/24 at 1650, Until Thu02/02/24 at 0303, Nausea/Vomiting - Second Line - Parenteral, Give IV push over 2 minutes., Recovery or Phase I (only) oxyCODONE IR 5 mg tab(s) (ROXICODONE) 5 mg, ORAL, NEEDED, 1 dose, Starting on Thu02/01/24 at 1650, Until Thu02/02/24 at 0303, Moderate Pain (4-6) - Enteral, Recovery or Phase I (only) traMADol 50 mg tab(s) (ULTRAM) 50 mg, ORAL, EVERY 8 HOURS NEEDED, 2 doses, Starting on Thu02/01/24 at 1650, Until Thu02/02/24 at 0303, breakthrough pain, Recovery or Phase I (only) FOR RECORDS PERTAINING TO PATIENTS WHO ARE [...] BE BASED ON THE PRIMARY CLINICAL RECORDS. [employer] provides no warranty or guarantee of the accuracy or completeness of information in this document.
[2024-12-31 13:10] VITALS: BP 157/104; PULSE 49; RESP 14; O2SAT 97
[2024-12-31 13:21] LABS: Troponin T High Sensitivity 8 ng/L (<=22)
[2024-12-31] MEDS: 0.9% Normal Saline (1000mL) 1,000 ML 150 ML IV (13:23)
[2024-12-31 14:00] VITALS: BP 148/101; PULSE 54; RESP 16; O2SAT 97
[2024-12-31 14:03] LABS: Anion Gap 9 (5-15); BUN 16 mg/dL (4-19); BUN/Creat Ratio 17.4 RATIO (10-20); Calcium,Total 9.2 mg/dL (7.6-11.0); Carbon Dioxide 27.3 mmol/L (21.0-32.0); Chloride 105 mmol/L (98-108); Estimated Creatinine Clearance 85.55 ml/min (50-250); Glucose 92 mg/dL (70-99); Potassium 3.9 mmol/L (3.3-5.1)
[2024-12-31 14:38] VITALS: BP 176/115; PULSE 56; RESP 20; TEMP 36.4; O2SAT 99
== END 2024-12-31 14:45 | disposition home or self-care (01) ==
PROVIDERS: Emergency Provider Emergency Medicine; PCP Family Medicine; Visit Provider Emergency Medicine
DX: R07.89 Other chest pain (principal); M54.50 Low back pain, unspecified; R00.8 Other abnormalities of heart beat; Z86.711 Personal history of pulmonary embolism
CPT/HCPCS: 71275; 80048; 84484; 85025; 93005; 96360; 99284; Q9967; A4216